=== PATIENT | male | born 1955 | race Caucasian/White ===

== ENCOUNTER 2023-01-17 08:01 | Outpatient (OUT) | payer OTHER, SELFPAY ==
--- NOTE | 2023-01-17 08:17 | CT_ITS ---
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 Axial, Coronal, and Sagittal images. Dose reduction techniques were achieved by using automated exposure control and/or adjustment of mA and/or kV according to patient size and/or use of iterative reconstruction technique. FINDINGS: LUNGS: No visible pulmonary disease. PLEURA: No mass, effusion, or pneumothorax. VASCULATURE: No abnormality. SUZETTE: No mass or adenopathy. MEDIASTINUM: No mass or adenopathy. CARDIAC: No enlargement, pericardial thickening, or significant calcification. AORTA: Mild dilation of ascending aorta, 4.2 cm. CHEST WALL: No mass or axillary adenopathy. BONES: No bone lesion or fracture. LIMITED ABDOMEN: No suspicious findings Limited images of the upper abdomen. OTHER: Negative. CT/CT chest wo/w con IMPRESSION: 1. Stable mild aneurysmal dilation of the ascending thoracic aorta, 4.2 cm in diameter. Electronically authenticated by: CARLOS RICE Date: 01/18/2023 06:43
[2023-01-17 08:18] LABS: Estimated GFR (African America >60 (>=60); Estimated GFR (Non-African Ame >60 (>=60)
== END 2023-01-17 08:02 | disposition home or self-care (01) ==
LOC: LAB 08:01
PROVIDERS: PCP Family Medicine; Visit Provider Family Medicine
DX: I71.21 Aneurysm of the ascending aorta, without rupture (principal)
CPT/HCPCS: 36415; 71270; 82565; Q9967

== ENCOUNTER 2023-04-13 09:13 | Outpatient (OUT) | payer OTHER, SELFPAY ==
[2023-04-13 09:44] LABS: Eosinophils Absolute Auto 0.2 10^3/uL (0.0-0.7); Eosinophils Percent Auto 4.6 % (0.9-7.0); Hematocrit 34.2 % (42.0-54.0); Hemoglobin 11.2 g/dL (14.0-18.0); Immature Granulocytes Abs Auto 0.01 10^3/uL (0.00-0.03); Immature Granulocytes Pct Auto 0.2 % (0.0-0.5); Lymphocytes Absolute Auto 1.3 10^3/uL (1.2-3.8); Lymphocytes Percent Auto 26.5 % (20.5-60.0); Mean Corpuscular HGB Conc 32.7 g/dL (29.9-35.2); Mean Corpuscular Hemoglobin 33.1 pg (25.9-34.0); Mean Corpuscular Volume 101.2 fL (80.0-94.0); Mean Platelet Volume 9.2 fL (9.5-13.5); Monocytes Absolute Auto 0.7 10^3/uL (0.3-0.8); Monocytes Percent Auto 14.9 % (1.7-12.0); Neutrophils Absolute Auto 2.7 10^3/uL (1.4-6.5); Neutrophils Percent Auto 53.8 % (43.0-75.0); Platelet Count 239 10^3/uL (150-450); Red Blood Count 3.38 10^6/uL (4.70-6.10)
[2023-04-13 09:53] LABS: Estimated Average Glucose 108 mg/dL; Glycohemoglobin A1C 5.4 % (4.5-6.2)
[2023-04-13 10:19] LABS: Alanine Aminotransferase 23 U/L (16-63); Albumin Globulin Ratio 0.9; Albumin Level 3.7 g/dL (3.4-5.0); Alkaline Phosphatase 67 U/L (46-116); Anion Gap 14.1; Aspartate Amino Transferase 24 U/L (15-37); BUN Creatinine Ratio 22.7; Bilirubin Total 0.5 mg/dL (0.2-1.0); Calcium 9.1 mg/dL (8.5-10.1); Carbon Dioxide 25.9 mmol/L (21.0-32.0); Chloride 105 mmol/L (98-107); Chol HDL Ratio 2.6; Cholesterol 103 mg/dL (<=200); Estimated GFR (African America >60 (>=60); Estimated GFR (Non-African Ame >60 (>=60); Globulin 4.2 g/dL; Glucose 102 mg/dL (74-106); HDL Cholesterol 40 mg/dL (40-60); Sodium 141 mmol/L (136-145); Total Protein 7.9 g/dL (6.4-8.2); Triglycerides 145 mg/dL (<=150)
[2023-04-13 10:55] LABS: Prostate Specific Antigen Scrn <0.13 ng/mL (<=4.00)
== END 2023-04-13 09:14 | disposition home or self-care (01) ==
LOC: LAB 09:16
PROVIDERS: PCP Family Medicine; Visit Provider Family Medicine
DX: E78.5 Hyperlipidemia, unspecified (principal); I10 Essential (primary) hypertension; I48.0 Paroxysmal atrial fibrillation; R73.09 Other abnormal glucose; Z12.5 Encounter for screening for malignant neoplasm of prostate
CPT/HCPCS: 36415; 80053; 80061; 83036; 85025; G0103

== ENCOUNTER 2023-06-13 12:06 | Outpatient (OUT) | payer OTHER, SELFPAY ==
--- OUTSIDE RECORDS SUMMARY | 2023-06-13 12:13 | XMS_ITS | CCD ---
Author Name Unknown Address [address] [place] [address] Organization [facility] Care Team Providers Care Peer Support Specialist Name Role Phone MAMTA STEPHENSON Attending Unavailable SELF, REFERRED Primary Care Unavailable SELF, REFERRED Referring Unavailable MAMTA STEPHENSON Admitting Unavailable Lv Heard Primary Care Physician [phone] Patricio BEAUCHAMP Attending Unavailable NILLPatricio Attending Unavailable Patricio BEAUCHAMP Attending Unavailable vL Heard MD Primary Care Provider [phone] CAMILLE ., DR CURRY Admitting Unavailable NILL ., DR CURRY Attending Unavailable NILL ., DR CURRY Consulting Unavailable HOY ., DR AWAN Primary Care Unavailable STELLA BEYER Consulting Unava ilable TERI, DR JT Harper Admitting Unavailable ENGELER, DR JT Harper Attending Unavailable ENGELER, DR JT Harper Consulting Unavailable HOY ., DR AWAN Primary Care Unavailable HOY ., DR AWAN Attending Unavailable HOY ., DR AWAN Primary Care Unavailable HOY ., DR AWAN Consulting Unavailable HOY ., DR AWAN Admitting Unavailable HOY ., DR AWAN Attending Unavailable HOY ., DR AWAN Consulting Unavailable HOY ., DR AWAN Primary Care Unavailable HOY ., DR AWAN Admitting Unavailable ZIEBER, DR KIRK Goins Consulting Unavailable HOY ., DR AWAN Attending Unavailable HOY ., DR AWAN Consulting Unavailable HOY ., DR AWAN Primary Care Unavailable HOY ., DR AWAN Admitting Unavailable ZIEBER, DR KIRK Goins Consulting Unavailable HOY ., DR AWAN Attending Unavailable HOY ., DR AWAN Consulting Unavailable HOY ., DR AWAN Primary Care Unavailable HOY ., DR AWAN Admitting Unavailable ZIEBER, DR KIRK Goins Consulting Unavailable ELVIN KEEN Consulting Unavailable BERENICE MELGAR Consulting Unavailable KARLY BASS Consulting Unavailable SUGAR, DR ISIDRO Alcantara Admitting Unavailedward WOOTEN, DR ISIDRO Alcantara Attending Unavailedward WOOTEN, DR ISIDRO Alcantara Consulting Unavailedward HEARD ., DR AWAN Primary Care Unavailable PATRICIO ANTON Consulting Unavailable NILL ., DR CURRY Admitting Unavailable NILL ., DR CURRY Attending Unavailable NILL ., DR CURRY Consulting Unavailable HOY ., DR AWAN Primary Care Unavailable MAMTA STPEHENSON Attending Unavailable ALEXI WEEKS Attending Unavailable ALEXI WEEKS Attending Unavailable CUBA PONCE Attending Unavailable LV HEARD Primary Care Unavailable Quinton GONZÁLES Referring Unavailable Quinton GONZÁLES Attending Unavailable Allergies Allergy Classification Reported Allergen(s) Allergy Type Date of Onset Reaction(s) Facility (1 source) No Known Medication Allergies; Translations: [No Known Medication Allergies] Propensity to adverse reactions (disorder) [facility] Repository Medications Current Medications Medication Drug Class(es) Dates Sig (Normalized) Sig (Original) apixaban 5 mg oral tablet (1 source) Factor Xa Inhibitor Start: 03-04-2022 take 1 tablet by mouth twice daily Eliquis 5 mg oral tablet 5 mg = 1 tab(s), Oral, BID, Refills(s) 0 Start Date: 03/04/22 Status: Ordered aspirin 81 mg delayed release oral tablet (1 source) Platelet Aggregation Inhibitor, Nonsteroidal Anti-inflammatory Drug Start: 03-08-2022 take 1 tablet by mouth once daily aspirin 81 mg Oral EC Tab 81 mg = 1 tab(s), Oral, Daily, Refills(s) 0 Start Date: 03/08/22 Status: Ordered diclofenac sodium 75 mg delayed release oral tablet (1 source) Nonsteroidal Anti-inflammatory Drug Start: 03-04-2022 take 1 tablet by mouth twice daily diclofenac sodium 75 mg Oral EC Tab 75 mg = 1 tab(s), Oral, BID, Refills(s) 0 Start Date: 03/04/22 Status: Ordered ferrous sulfate 325 mg delayed release oral tablet (1 source) Start: 03-04-2022 take 1 tablet by mouth twice daily ferrous sulfate 325 mg oral enteric coated tablet 325 mg = 1 tab(s), Oral, BID, Refills(s) 0 Start Date: 03/04/22 Status: Ordered lansoprazole 30 mg delayed release oral capsule (1 source) Proton Pump Inhibitor Start: 03-29-2022 take 1 capsule by mouth once daily lansoprazole 30 mg Cap-DR 30 mg = 1 cap(s), Oral, Daily, Refills(s) 0 Start Date: 03/29/22 Status: Ordered lisinopril 10 mg oral tablet (1 source) Angiotensin Converting Enzyme Inhibitor Start: 03-04-2022 take 1 tablet by mouth once daily lisinopril 10 mg Tab 10 mg = 1 tab(s), Oral, Daily, Refills(s) 0 Start Date: 03/04/22 Status: Ordered metoprolol tartrate 75 mg oral tablet (1 source) beta-Adrenergic Mandeep Start: 03-04-2022 take 1 tablet by mouth twice daily metoprolol tartrate 75 mg oral tablet 75 mg = 1 tab(s), Oral, BID, Refills(s) 0 Start Date: 03/04/22 Status: Ordered Multivitamins and Minerals (1 source) Start: 10-02-2018 Multivitamins and Minerals See Instructions, Refill(s) 0 Start Date: 10/02/18 Status: Ordered rosuvastatin calcium 20 mg oral tablet (1 source) HMG-CoA Reductase Inhibitor Start: 03-08-2022 take 1 tablet by mouth once daily rosuvastatin 20 mg Tab 20 mg = 1 tab(s), Oral, Daily, Refills(s) 0 Start Date: 03/08/22 Status: Ordered sucralfate 1000 mg oral tablet (1 source) Aluminum Complex Start: 03-08-2022 take 1 tablet by mouth four times daily Carafate 1 gram Tab 1 gm = 1 tab(s), Oral, QID, # 120 tab(s), Refills(s) 3, Pharmacy: [facility] #[id number], 177.8, cm, 03/08/22 15:41:00 EST, Height/Length Dosing, 91, kg, 03/08/22 15:41:00 EST, Weight Dosing Start Date: 03/08/22 Status: Ordered Completed/Discontinued Medications Medication Drug Class(es) Dates Sig (Normalized) Sig (Original) Acetaminophen (3 sources) ACETAMINOPHEN (TYLENOL EXTRA STRENGTH ORAL) Take by mouth. 0 Active Comment on above: Take by mouth. celecoxib 200 mg oral capsule (3 sources) Nonsteroidal Anti-inflammatory Drug Start: 06-19-2018 celecoxib (CELEBREX) 200 mg capsule twice daily. 0 06/19/2018 Active Comment on above: twice daily. ibuprofen 200 mg oral tablet (3 sources) Nonsteroidal Anti-inflammatory Drug take 1 tablet by mouth every six hours as needed ibuprofen (MOTRIN) 200 mg tablet Take 200 mg by mouth every 6 hours as needed. 0 Active Comment on above: Take 200 mg by mouth every 6 hours as needed. Multivitamin capsule (3 sources) take 1 capsule by mouth once daily Multivitamin capsule Take 1 capsule by mouth once daily. 0 Active Comment on above: Take 1 capsule by mo uth once daily. tamsulosin hydrochloride 0.4 mg oral capsule (3 sources) alpha-Adrenergic Mandeep Start: 06-27-2018 take 1 capsule by mouth once daily at bedtime tamsulosin ER (FLOMAX) 0.4 mg cap Take 1 capsule by mouth daily at bedtime. 30 capsule 11 06/27/2018 Active Comment on above: Take 1 capsule by mo [facility] daily at bedtime. TURMERIC, BULK, MISC (3 sources) TURMERIC, BULK, MISC valACYclovir 1000 mg oral tablet (3 sources) Herpesvirus Nucleoside Analog DNA Polymerase Inhibitor, Herpes Simplex Virus Nucleoside Analog DNA Polymerase Inhibitor, Herpes Zoster Virus Nucleoside Analog DNA Polymerase Inhibitor Start: 06-09-2018 valACYclovir (VALTREX) 1 gram tab Problems Active Problems Problem Classification Problem Date Documented Da te Episodic/Chronic Abdominal hernia (1 source) Umbilical hernia 03-04-2022 Episodic Aortic; peripheral; and visceral artery aneurysms (5 sources) Aneurysm of thoracic aorta; Translations: [Thoracic aortic aneurysm, without rupture] Onset: 12-30-2021 03-04-2022 Chronic Cancer of prostate (3 sources) Malignant tumor of prostate; Translations: [Malignant neoplasm of prostate] Onset: 06-23-2022 Chronic Cardiac dysrhythmias (4 sources) Atrial fibrillation; Translations: [Unspecified atrial fibrillation] Onset: 12-24-2021 03-04-2022 Chronic Cataract (1 source) Cataract 03-04-2022 Chronic Coronary atherosclerosis and other heart disease (3 sources) Coronary arteriosclerosis; Translations: [Coronary Artery Disease] Onset: 12-24-2021 03-04-2022 Chronic Deficiency and other anemia (1 source) Anemia 10-01-2018 Episodic Deficiency and other anemia (1 source) Iron deficiency anemia 03-08-2022 Episodic Disorders of lipid metabolism (2 sources) Hyperlipidemia; Translations: [Hyperlipidemia] Onset: 05-17-2022 Chronic Diverticulosis and diverticulitis (3 sources) Diverticula of intestine; Translations: [Diverticulosis of intestine, part unspecified, without perforation or abscess without bleeding] Onset: 03-24-2022 Chronic Essential hypertension (5 sources) Hypertensive disorder; Translations: [Essential (primary) hypertension] Onset: 10-29-2021 03-04-2022 Chronic Gastritis and duodenitis (1 source) Unspecified chronic gastritis without bleeding; Translations: [UNS CHRONIC GASTRITIS W/O BLEEDING] Onset: 03-24-2022 Chronic Gastritis and duodenitis (3 sources) Gastritis; Translations: [Other gastritis without bleeding] Onset: 03-29-2022 Episodic Gout and other crystal arthropathies (1 source) Gout 03-04-2022 Chronic Hyperplasia of prostate (1 source) Benign prostatic hyperplasia 03-04-2022 Chronic Immunizations and screening for infectious disease (1 source) Raised Helicobacter pylori antibody 03-08-2022 Episodic Nutritional deficiencies (1 source) Vitamin D deficiency, unspecified; Translations: [VITAMIN D DEFICIENCY UNSPECIFIED] Onset: 03-02-2022 Chronic Osteoarthritis (1 source) Unspecified osteoarthritis, unspecified site; Translations: [UNSPECIFIED OSTEOARTHRITIS UNS SITE] Onset: 10-29-2021 Chronic Other aftercare (1 source) Long-term current use of anticoagulant 03-04-2022 Episodic Other disorders of stomach and duodenum (1 source) Indigestion 03-08-2022 Episodic Other gastrointestinal disorders (1 source) Alteration in bowel elimination 03-08-2022 Episodic Other gastrointestinal disorders (1 source) Occult blood in stools 03-04-2022 Episodic Other nervous system disorders (1 source) H/O: retinal detachment 03-04-2022 Episodic Other nervous system disorders (1 source) Paresthesia 03-04-2022 Episodic Other nutritional; endocrine; and metabolic disorders (1 source) Overweight in adulthood with body mass index of 25 or more but less than 30 03-08-2022 Episodic Other nutritional; endocrine; and metabolic disorders (1 source) Unintentional weight loss 03-04-2022 Episodic Residual codes; unclassified (1 source) Sleep apnea 03-04-2022 Chronic Residual codes; unclassified (1 source) Sleep apnea, unspecified; Translations: [SLEEP APNEA UNSPECIFIED] Onset: 10-29-2021 Chronic Retinal detachments; defects; vascular occlusion; and retinopathy (1 source) Epiretinal membrane 03-04-2022 Chronic Substance-related disorders (2 sources) Smoker; Translations: [Nicotine dependence, cigarettes, uncomplicated] Onset: 03-24-2022 03-04-2022 Chronic Unclassified (1 source) CONTACT W/AND (SUSP) EXPOS COVID-19; Translations: [CONTACT W/AND (SUSP) EXPOS COVID-19] Onset: 03-19-2022 Unclassified (1 source) PERSONAL HISTORY OF COVID-19; Translations: [PERSONAL HISTORY OF COVID-19] Onset: 10-29-2021 Unclassified (2 sources) NSVT Onset: 12-24-2021 Past or Other Problems Problem Classification Problem Date Documented Da te Episodic/Chronic Cancer of prostate (9 sources) History of malignant neoplasm of prostate; Translations: [Personal history of malignant neoplasm of prostate] Onset: 10-31-2013 10-02-2018 Episodic Deficiency and other anemia (4 sources) Iron deficiency anemia, unspecified; Translations: [IRON DEFICIENCY ANEMIA UNSPECIFIED] Onset: 03-18-2022 Episodic Deficiency and other anemia (1 source) Anemia, unspecified; Translations: [ANEMIA UNSPECIFIED] Onset: 03-02-2022 Episodic Diabetes mellitus without complication (1 source) Other abnormal glucose; Translations: [OTHER ABNORMAL GLUCOSE] Onset: 03-02-2022 Episodic Fluid and electrolyte disorders (1 source) Volume depletion, unspecified; Translations: [VOLUME DEPLETION UNSPECIFIED] Onset: 03-13-2022 Episodic Gastrointestinal hemorrhage (4 sources) Melena; Translations: [Rectal hemorrhage] Onset: 03-24-2022 03-08-2022 Episodic Malaise and fatigue (4 sources) Other fatigue; Translations: [OTHER FATIGUE] Onset: 03-09-2022 Episodic Nonspecific chest pain (5 sources) Chest pain, unspecified; Translations: [Other chest pain] Onset: 10-29-2021 Episodic Other aftercare (3 sources) Radiotherapy follow-up; Translations: [Encounter for follow-up examination after completed treatment for conditions other than malignant neoplasm] Onset: 06-10-2014 06-10-2014 Episodic Other aftercare (1 source) snf (current) use of anticoagulants; Translations: [DETENTION CURRNT USE ANTICOAGULANTS] Onset: 03-24-2022 Episodic Other aftercare (1 source) snf (current) use of aspirin; Translations: [DETENTION CURRENT USE OF ASPIRIN] Onset: 03-24-2022 Episodic Other aftercare (1 source) Other valuation consultant (current) drug therapy; Translations: [OTH RESERVATIONS MANAGER CURRENT DRUG THERAPY] Onset: 03-24-2022 Episodic Other circulatory disease (1 source) Hypotension, unspecified; Translations: [HYPOTENSION UNSPECIFIED] Onset: 03-13-2022 Episodic Other diseases of kidney and ureters (1 source) Disorder of kidney and ureter, unspecified; Translations: [DISORDER KIDNEY AND URETER UNS] Onset: 03-13-2022 Episodic Other gastrointestinal disorders (1 source) Diarrhea, unspecified; Translations: [DIARRHEA UNSPECIFIED] Onset: 03-24-2022 Episodic Other lower respiratory disease (1 source) Acute respiratory distress; Translations: [ACUTE RESPIRATORY DISTRESS] Onset: 10-29-2021 Episodic Other lower respiratory disease (1 source) Personal history of pneumonia (recurrent); Translations: [PERSONAL HX OF PNEUMONIA RECURRENT] Onset: 10-29-2021 Episodic Other nutritional; endocrine; and metabolic disorders (4 sources) Abnormal weight loss; Translations: [ABNORMAL WEIGHT LOSS] Onset: 02-25-2022 Episodic Other screening for suspected conditions (not mental disorders or infectious disease) (2 sources) Encounter for screening for malignant neoplasm of rectum; Translations: [Other specified abnormal findings of blood chemistry] Onset: 10-29-2021 Episodic Screening and history of mental health and substance abuse codes (1 source) Personal history of nicotine dependence; Translations: [PERSONAL HISTORY OF NICOTINE DEPEND] Onset: 03-13-2022 Episodic Results Test Name Value Interpretation Reference Range Facility [facility] 05-23-2023 [place] Telephone (RADTSA) PABLO BECKMAN ([id number]) 1955 M Date Time Provider Department 05/23/23 Quinton GONZÁLES During your visit today, we recorded the following information about you: Josefina Anderson RN 05/23/2023 9:44 AM Signed PT called in to schedule follow up for this year. He will also need PSA. Please sign pended order and we will fax to [facility]. Josefina Anderson RN Allergies As of Date: 05/23/2023 (No Known Allergies) Date Reviewed: 06/24/2020 Reviewed by: Kamari July - Fully Assessed Reason for Visit: Future Appointment [256] Primary Visit Diagnosis:Malignant neoplasm of prostate (HCC) [C61] Order(s):PSA/PROSTSPECAG DIAG [SQPSA] Order #: [id number] FUTURE Prescriptions as of 05/23/2023 - valACYclovir (VALTREX) 1 gram tab - celecoxib (CELEBREX) 200 mg capsule twice daily. - tamsulosin ER (FLOMAX) 0.4 mg cap Take 1 capsule by mouth daily at bedtime. - Multivitamin capsule Take 1 capsule by mouth once daily. - ibuprofen (MOTRIN) 200 mg tablet Take 200 mg by mouth every 6 hours as needed. - ACETAMINOPHEN (TYLENOL EXTRA STRENGTH ORAL) Take by mouth. - TURMERIC, BULK, MISC Problem List As Of Date 05/23/2023 Noted Resolved Personal history of prostate cancer [Z85.46] 10/31/2013 Radiotherapy follow-up [Z09] 06/10/2014 Encounter Status:Closed by Quinton GONZÁLES on 05/23/23 Normal [facility] Office Visiton 08-09-2022 Follow-up visit [id number] Hanna Beckman 1955 M Date Provider Department Center 08/09/2022 [id number] PONCE TIN [place] Family History Problem Relation Age of Onset Stroke Mother Family Status - Relation Status Age at Mother Level of Service:[address] [place] OFFICE/OUTPATIENT NEW HIGH MDM 60-74 MINUTES Normal [facility] Jason 06-22-2022 CNPN Telephone (RADTSA) PABLO BECKMAN ([id number]) 1955 M Date Time Provider Department 06/22/22 Quinton GONZÁLES During your visit today, we recorded the following information about you: Hermilo Logan LPN 06/22/2022 12:37 PM Signed Pablo called wondering if his follow up appointment can be switched to a phone visit tomorrow. Please advise. DEVIKA Hall RN 06/23/2022 9:37 AM Signed Per mark Galvez to switch to phone visit. Patient was notified. PSS- please change in [facility]. TOOTIE Nance 06/23/2022 10:04 AM Signed Appointment has been changed in [facility]. Kwaku Rasmussen Allergies As of Date: 06/22/2022 (No Known Allergies) Date Reviewed: 06/24/2020 Reviewed by: Felecia Benites - Fully Assessed Reason for Visit: Patient Question [8807] Prescriptions as of 06/23/2022 - valACYclovir (VALTREX) 1 gram tab - celecoxib (CELEBREX) 200 mg capsule twice daily. - tamsulosin ER (FLOMAX) 0.4 mg cap Take 1 capsule by mouth daily at bedtime. - Multivitamin capsule Take 1 capsule by mouth once daily. - ibuprofen (MOTRIN) 200 mg tablet Take 200 mg by mouth every 6 hours as needed. - ACETAMINOPHEN (TYLENOL EXTRA STRENGTH ORAL) Take by mouth. - SANTINO FRAIRE, MISC Problem List As Of Date 06/22/2022 Noted Resolved Personal history of prostate cancer [Z85.46] 10/31/2013 Radiotherapy follow-up [Z09] 06/10/2014 Encounter Status:Closed by HERMILO LOGAN on 06/23/22 [facility] 36on 05-20-2022 36 Approving, but needs appt for additional refills. Normal [facility] Office Visiton 05-17-2022 Follow-up visit [id number] Hanna Beckman 1955 M Date Provider Department Center 05/17/2022 MAMTA EGAN TIN [facility] Family History Problem Relation Age of Onset Stroke Mother Family Status - Relation Status Age at Mother Level of Service:[address]20 [place] OFFICE/OUTPATIENT ESTABLISHED LOW MDM 20-29 MIN Reason for Visit and Comments: Hyperlipidemia [182] Hypertension [498092] Atrial Fibrillation [80] Coronary Artery Disease [187] Normal [facility] Pathology Noteon 04-07-2022 Pathology Note [id number]#[id number]:127 Normal [facility] General Surgery Office/Clini c Noteon 03-29-2022 General Surgery Office/Clinic Note Chief Complaint post operative follow up HPI Staff 11 day post operative follow up post colonoscopy and EGD with antral biopsy. Diarrhea has improved. History of Present Illness s/p EGD and colonoscopy due to iron deficiency anemia; also loose stools; started on H pylori treatment prior to scope, now completed; EGD with mild antral gastritis, bx negative for H pylori organisms; colonoscopy with diverticulosis; patient reports diarrhea improved. Assessment/Plan 1. Diverticulosis (K57.90: Diverticulosis of intestine, part unspecified, without perforation or abscess without bleeding) high fiber diet and daily fiber supplement 2. Bile reflux gastritis (K29.60: Other gastritis without bleeding) continue carafate; no H pylori organisms on biopsy; positive antibody may have been from a previous infection, or resolved with treatment; no source for anemia identified; f/u with Dr Heard. call with problems/questions. Follow-up No qualifying data available Problem List/Past Medical History Ongoing Anemia Atrial fibrillation Bile reflux gastritis BMI 28.0-28.9,adult BPH (benign prostatic hyperplasia) Cataract Change in bowel habits Coronary arteriosclerosis Diverticulosis Dyspepsia Gout H/O prostate cancer Helicobacter pylori ab+ Helicobacter pylori gastritis History of retinal detachment HTN (hypertension) Hypertensive disorder Iron deficiency anemia snf current use of anticoagulant Macular puckering Melena Occult blood positive stool Paresthesia RB (rectal bleeding) Rectal bleeding Sleep apnea Smoker Thoracic aortic aneurysm Umbilical hernia Unintentional weight loss Historical No qualifying data Procedure/Surgical History Colonoscopy (03/18/2022), EGD - Esophagogastroduodenoscopy (03/18/2022), Colonoscopy (10/17/2018), Colonoscopy (09/11/2009), Amputation of finger, Arthroscopy of shoulder, ORIF - Open reduction and internal fixation of fracture, Seed implantation into prostate, Umbilical herniorrhaphy using surgical sutures. Medications aspirin 81 mg Oral EC Tab, 81 mg= 1 tab(s), Oral, Daily Carafate 1 gram Tab, 1 gm= 1 tab(s), Oral, QID, 3 refills diclofenac sodium 75 mg Oral EC Tab, 75 mg= 1 tab(s), Oral, BID Eliquis 5 mg oral tablet, 5 mg= 1 tab(s), Oral, BID ferrous sulfate 325 mg oral enteric coated tablet, 325 mg= 1 tab(s), Oral, BID lansoprazole 30 mg Cap-DR, 30 mg= 1 cap(s), Oral, Daily lisinopril 10 mg Tab, 10 mg= 1 tab(s), Oral, Daily metoprolol tartrate 75 mg oral tablet, 75 mg= 1 tab(s), Oral, BID Multivitamins and Minerals, See Instructions rosuvastatin 20 mg Tab, 20 mg= 1 tab(s), Oral, Daily Allergies No Known Allergies No Known Medication Allergies Social History Alcohol - Denies Alcohol Use, 10/02/2018 Substance Abuse - Denies Substance Abuse, 10/02/2018 Tobacco Former smoker, quit more than 30 days ago Tobacco Use:. Never Smokeless Tobacco Use:. Cigarettes, 1 per day. Started age 18.0 Years. Stopped age 31 Years., 03/08/2022 Family History Alzheimer's disease: Mother. Parkinson disease: Father. Primary malignant neoplasm of female breast: Sister. Stroke: Mother. Immunizations Vaccine Date Status Comments influenza virus vaccine, inactivated - Not Given Patient Refuses Normal [facility] Comment on above: Result Comment: Elec tronically Signed By: CAMILLE CRAMER, Patricio Denise\Date and Time Signed: 03/29/22 16:23 EST Outside Colonoscopyon 2021 Outside Colonoscopy [id number]:127 Normal [facility] Reminderson 03-21-2022 Reminders - From: Rosey Cleary LPN To: GSN - Clinical; Sent: 03/21/2022 10:19:27 EST Show up: 02/17/2032 07:00:00 EST Subject: colonoscopy recall Due Date/Time: 03/18/2032 07:00:00 EST Reminder/Recall Patient due for screening colonoscopy 03/18/2032. Normal [facility] Lab Reportson 03-15-2022 Lab Reports [id number]:127 Normal [facility] Covid-19 PCR (CVDTB)on SARS-CoV-2 (COVID-19) RNA ISIDRO+probe Ql (Unsp spec) Not detected Normal NOT DETECTED [facility] Comment on above: Result Comment: This test is not yet approved or cleared by the [place] FDA. When there are no FDA-approved or cleared tests available, and other criteria are met, FDA can make tests available under an emergency access mechanism called an Emergency Use Authorization (EUA). The EUA for this test is supported by the Social Media Campaign Manager of Health and Human Service's (HHS's) declaration that circumstances exist to justify the emergency use of in vitro diagnostics for the detection and/or diagnosis of the virus that causes COVID-19. This EUA will remain in effect (meaning this test can be used) for the duration of the COVID-19 declaration justifying emergency of IVDs, unless it is terminated or revoked by FDA (after which the test may no longer be used). When diagnostic testing is negative, the possibility of a false negative should be considered in the context of a patient's recent exposures and the presence of clinical signs and symptoms consistent with SARS-CoV-2. Performed By: #### T SH, T7, LIPA, EMILY, CMP #### [facility] [address] [place] [address] Dr. Emely Adrian Consent for Procedure/Surger yon 03-10-2022 Consent for Procedure/Surgery [id number]:127 Normal [facility] Facesheeton 03-10-2022 Facesheet [id number]#[id number]:127 Normal [facility] CBC AUTO DIFFon 03-09-2022 BASO # 0.0 103/ul Normal 0.0-0.1 [facility] Comment on above: Performed By: #### T SH, T7, LIPA, EMILY, CMP #### [facility] [address] [place] [address] Dr. Emely Adrian Basophils/100 WBC (Bld) 0.1 % Critically low 0.2-2.0 [facility] Comment on above: Performed By: #### T SH, T7, LIPA, EMILY, CMP #### [facility] [address] [place] [address] Dr. Emely Adrian EO # 0.2 103/ul Normal 0.0-0.7 [facility] Comment on above: Performed By: #### T SH, T7, LIPA, EMILY, CMP #### [facility] [address] [place] [address] Dr. Emely Adrian Eosinophils/100 WBC (Bld) 3.2 % Normal 0.9-7.0 [facility] Comment on above: Performed By: #### T SH, T7, LIPA, EMILY, CMP #### [facility] [address] [place] [address] Dr. Emely Adrian Erythrocyte distribution width (RBC) [Ratio] 15.8 % Critically high 11.0-15.0 [facility] Comment on above: Performed By: #### T SH, T7, LIPA, EMILY, CMP #### [facility] [address] [place] [address] Dr. Emely Adrian Hematocrit (Bld) [Volume fraction] 26.6 % Critically low 42.0-54.0 [facility] Comment on above: Performed By: #### T SH, T7, LIPA, EMILY, CMP #### [facility] [address] [place] [address] Dr. Emely Adrian Hemoglobin (Bld) [Mass/Vol] 9.0 g/dL Critically low 14.0-18.0 [facility] Comment on above: Performed By: #### T SH, T7, LIPA, EMILY, CMP #### [facility] [address] [place] [address] Dr. Emely Adrian IG # 0.05 10e3/ul Critically high 0.00-0.03 [facility] Comment on above: Performed By: #### T SH, T7, LIPA, EMILY, CMP #### [facility] [address] [place] [address] Dr. Emely Adrian IG % 0.7 % Critically high 0.0-0.5 [facility] Comment on above: Performed By: #### T SH, T7, LIPA, EMILY, CMP #### [facility] [address] [place] [address] Dr. Emely Adrian LYMPH # 1.8 103/ul Normal 1.2-3.8 [facility] Comment on above: Performed By: #### T SH, T7, LIPA, EMILY, CMP #### [facility] [address] [place] [address] Dr. Emely Adrian Lymphocytes/100 WBC (Bld) 24.2 % Normal 20.5-60.0 [facility] Comment on above: Performed By: #### T SH, T7, LIPA, EMILY, CMP #### [facility] [address] [place] [address] Dr. Emely Adrian MANUAL DIFF REQ NO Normal [facility] Comment on above: Performed By: #### T SH, T7, LIPA, EMILY, CMP #### [facility] [address] [place] [address] Dr. Emely Adrian MCH (RBC) [Entitic mass] 32.7 pg Normal 25.9-34.0 [facility] Comment on above: Performed By: #### T SH, T7, LIPA, EMILY, CMP #### [facility] [address] [place] [address] Dr. Emely Adrian MCHC (RBC) [Mass/Vol] 33.8 g/dL Normal 29.9-35.2 [facility] Comment on above: Performed By: #### T SH, T7, LIPA, EMILY, CMP #### [facility] [address] [place] [address] Dr. Emely Adrian MCV (RBC) [Entitic vol] 96.7 fL Critically high 80.0-94.0 [facility] Comment on above: Performed By: #### T SH, T7, LIPA, EMILY, CMP #### [facility] [address] [place] [address] Dr. Emely Adrian MONO # 1.3 103/ul Critically high 0.3-0.8 [facility] Comment on above: Performed By: #### T SH, T7, LIPA, EMILY, CMP #### [facility] [address] [place] [address] Dr. Emely Adrian Monocytes/100 WBC (Bld) 18.0 % Critically high 1.7-12.0 [facility] Comment on above: Performed By: #### T SH, T7, LIPA, EMILY, CMP #### [facility] [address] [place] [address] Dr. Emely Adrian NEUT # 4.0 103/ul Normal 1.4-6.5 [facility] Comment on above: Performed By: #### T SH, T7, LIPA, EMILY, CMP #### [facility] [address] [place] [address] Dr. Emely Adrian Neutrophils/100 WBC (Bld) 53.8 % Normal 43.0-75.0 [facility] Comment on above: Performed By: #### T SH, T7, LIPA, EMILY, CMP #### [facility] [address] [place] [address] Dr. Emely Adrian Platelet mean volume (Bld) [Entitic vol] 8.7 fL Critically low 9.5-13.5 [facility] Comment on above: Performed By: #### T SH, T7, LIPA, EMILY, CMP #### [facility] [address] [place] [address] Dr. Emely Adrian PLT 320 103/ul Normal 150-450 [facility] Comment on above: Performed By: #### T SH, T7, LIPA, EMILY, CMP #### [facility] [address] [place] [address] Dr. Emely Adrian RBC 2.75 106/ul Critically low 4.70-6.10 [facility] Comment on above: Performed By: #### T BASIM, T7, LIPA, EMILY, CMP #### [facility] [address] [place] [address] Dr. Emely Adrian WBC 7.5 103/ul Normal 4.0-11.0 [facility] Comment on above: Performed By: #### T BASIM, T7, LIPA, EMILY, CMP #### [facility] [address] [place] [address] Dr. Emely Adrian LACTATE/LACTIC ACIDon 2021 Lactate [Moles/Vol] 0.7 mmol/L Normal 0.4-1.9 [facility] Comment on above: Performed By: #### T BAISM, T7, LIPA, EMILY, CMP #### [facility] [address] [place] [address] Dr. Emely Adrian LIPASEon 03-09-2022 Lipase [Catalytic activity/Vol] 386.0 U/L Normal 73.0-393.0 [facility] Comment on above: Performed By: #### C BC #### [facility] [address] [place] [address] Dr. Emely Adrian PROF 14(COMP METB)on 022 Albumin [Mass/Vol] 2.9 g/dL Critically low 3.4-5.0 [facility] Comment on above: Performed By: #### C MP #### [facility] [address] [place] [address] Dr. Emely Adrian Albumin/Globulin [Mass ratio] 0.7 {ratio} Normal [facility] Comment on above: Performed By: #### C MP #### [facility] [address] [place] [address] Dr. Emely Adrian ALP [Catalytic activity/Vol] 43 U/L Critically low 46-116 [facility] Comment on above: Performed By: #### C MP #### [facility] [address] [place] [address] Dr. Emely Adrian ALT [Catalytic activity/Vol] 23 U/L Normal 16-63 [facility] Comment on above: Performed By: #### C MP #### [facility] [address] [address] [address] Emely Adrian Anion gap [Moles/Vol] 13.4 mmol/L Normal [facility] Comment on above: Performed By: #### C MP #### [facility] [address] [address] [address] Emely Adrian AST [Catalytic activity/Vol] 21 U/L Normal 15-37 [facility] Comment on above: Performed By: #### C MP #### [facility] [address] [address] [address] Emely Adrian Bilirubin [Mass/Vol] 0.4 mg/dL Normal 0.2-1.0 [facility] Comment on above: Performed By: #### C MP #### [facility] [address] [address] [address] Emely Adrian Calcium [Mass/Vol] 8.3 mg/dL Critically low 8.5-10.1 [facility] Comment on above: Performed By: #### C MP #### [facility] [address] [address] [address] Emely Adrian Chloride [Moles/Vol] 104 mmol/L Normal 98-107 [facility] Comment on above: Performed By: #### C MP #### [facility] [address] [address] [address] Emely Adrian CO2 [Moles/Vol] 22.9 mmol/L Normal 21.0-32.0 [facility] Comment on above: Performed By: #### C MP #### [facility] [address] [address] [address] Emely Adrian Creatinine [Mass/Vol] 1.80 mg/dL Critically high 0.70-1.30 [facility] Comment on above: Performed By: #### C MP #### [facility] [address] [address] [address] Emely Adrian EGFR-AF SPANISH 46 mL/min/1.73m2 Critically low >=60 [facility] Comment on above: Performed By: #### C MP #### [facility] [address] [address] [address] Emely Adrian EGFR-NON AF SPANISH 38 mL/min/1.73m2 Critically low >=60 [facility] Comment on above: Performed By: #### C MP #### [facility] [address] [address] [address] Emely Adrian Globulin (S) [Mass/Vol] 4.3 g/dL Normal [facility] Comment on above: Performed By: #### C MP #### [facility] [address] [address] [address] Emely Adrian Glucose [Mass/Vol] 105 mg/dL Normal 74-106 [facility] Comment on above: Performed By: #### C MP #### [facility] [address] [address] [address] Emely Adrian Potassium [Moles/Vol] 4.3 mmol/L Normal 3.5-5.1 [facility] Comment on above: Performed By: #### C MP #### [facility] [address] [address] [address] Emely Adrian Protein [Mass/Vol] 7.2 g/dL Normal 6.4-8.2 [facility] Comment on above: Performed By: #### C MP #### [facility] [address] [address] [address] Emely Adrian Sodium [Moles/Vol] 136 mmol/L Normal 136-145 [facility] Comment on above: Performed By: #### C MP #### [facility] [address] [address] [address] Emely Adrian Urea nitrogen [Mass/Vol] 35.0 mg/dL Critically high 7.0-18.0 [facility] Comment on above: Performed By: #### C MP #### [facility] [address] [address] [address] Emely Adrian Urea nitrogen/Creatini ne [Mass ratio] 19.4 mg/mg Normal [facility] Comment on above: Performed By: #### C MP #### [facility] [address] [place] [address] Dr. Emely Adrian PROTIMEon 03-09-2022 INR Coag (PPP) [Relative time] 1.12 {INR} Normal [facility] Comment on above: Performed By: #### P TT, PT #### [facility] [address] [place] [address] Dr. Emely Adrian INR GUIDELINES SEE BELOW Normal [facility] Comment on above: Result Comment: DUSTIN RED INR: 2.0 - 3.0 CONDITIONS NOT LISTED BELOW 2.5 - 3.5 FOR PROSTHETIC HEART VALVE REPLACEMENT 2.5 - 3.5 RECURRENT THROMBOSIS Performed By: #### P TT, PT #### [facility] [address] [place] [address] Dr. Emely Adrian PT Coag (PPP) [Time] 12.0 s Critically high 9.0-11.6 [facility] Comment on above: Performed By: #### P TT, PT #### [facility] [address] [place] [address] Dr. Emely Adrian PTTon 03-09-2022 aPTT Coag (Bld) [Time] 32.1 s Normal 22.3-36.2 [facility] Comment on above: Performed By: #### P TT, PT #### [facility] [address] [place] [address] Dr. Emely Adrian TROPONIN, HIGH SENSITIVITYon 03-09-2022 HSTROP 12.0 pg/mL Normal 4.0-76.1 [facility] Comment on above: Result Comment: CUT- OFF POINTS HAVE BEEN ESTABLISHED BASED ON THE FOURTH UNIVERSAL DEFINITIONS OF MYOCARDIAL INFARCTION. THE UPPER REFERENCE LIMIT (URL) OF TROPONIN, DEFINED THE 99TH PERCENTILE OF cTnI DISTRIBUTION IN A REFERENCE POPULATION, HAS BEEN CONFIRMED THE DECISION THRESHOLD FOR [place] DIAGNOSIS. Performed By: #### T SH, T7, LIPA, EMILY, CMP #### [facility] [address] [place] [address] Dr. Emely Adrian TYPE AND SCREENon 03-09-2022 TYPE AND SCREEN Negative Normal [facility] Comment on above: Performed By: #### T SH, T7, EMILY WIGGINS, CMP #### [facility] [address] [address] [address] Emely Adrian XR CHEST 1 Von 03-09-2022 XR CHEST 1 V EXAM: Portable chest REASON FOR EXAM: Shortness of breath. TECHNIQUE: A portable frontal view of the chest was obtained. COMPARISON: 10/27/2021. FINDINGS: The lungs are well-inflated and clear. The heart and mediastinum are normal. There is no mass or pathologic adenopathy. Osseous structures are normal. IMPRESSION: No acute cardiopulmonary process. Electronically authenticated by: PATRICIO ANTON Date: 2022-03-09 10:[address] [facility] Physician Referralon 022 Physician Referral [id number] Normal [facility] CA 19-9on 02-26-2022 CA 19-9 4 U/mL Normal 0-35 [facility] Comment on above: Result Comment: [employer] Electrochemiluminescence Immunoassay (ECLIA) . Values obtained with different assay methods or kits cannot be used interchangeably. Results cannot be interpreted as absolute evidence of the presence or absence of malignant disease. Performed By: #### T Royer STALLWORTH, EMILY WIGGINS, CMP #### [facility] [address] [address] [address] Emely Adrian CEAon 02-26-2022 CEA 1.9 ng/mL Normal 0.0-4.7 [facility] Comment on above: Result Comment: Nons mokers <3.9 Smokers <5.6 . [employer] Electrochemiluminescence Immunoassay (ECLIA) . Values obtained with different assay methods or kits cannot be used interchangeably. Results cannot be interpreted as absolute evidence of the presence or absence of malignant disease. Performed By: #### T BASIM, T7, FELICIANO, EMILY, CMP #### [facility] [address] [address] [address] Emely Adrian H PYLORI ANTIBODY IGGon 02-08 H. PYLORI IGG ABS 1.19 Index Value Critically high 0.00-0. 79 [facility] Comment on above: Result Comment: Nega tive <0.80 Equivocal 0.80 - 0.89 Positive >0.89 Performed By: #### C BC #### [facility] [address] [place] [address] Dr. Emely Adrian AMYLASEon 02-25-2022 Amylase [Catalytic activity/Vol] 118 U/L Critically high 25-115 [facility] Comment on above: Performed By: #### T SH, T7, LIPA, EMILY, CMP #### [facility] [address] [place] [address] Dr. Emely Adrian CBC AUTO DIFFon 02-25-2022 BASO # 0.0 103/ul Normal 0.0-0.1 [facility] Comment on above: Performed By: #### T SH, T7, LIPA, EMILY, CMP #### [facility] [address] [place] [address] Dr. Emely Adrian Basophils/100 WBC (Bld) 0.2 % Normal 0.2-2.0 [facility] Comment on above: Performed By: #### T SH, T7, LIPA, EMILY, CMP #### [facility] [address] [place] [address] Dr. Emely Adrian EO # 0.1 103/ul Normal 0.0-0.7 [facility] Comment on above: Performed By: #### T SH, T7, LIPA, EMILY, CMP #### [facility] [address] [place] [address] Dr. Emely Adrian Eosinophils/100 WBC (Bld) 2.8 % Normal 0.9-7.0 [facility] Comment on above: Performed By: #### T SH, T7, LIPA, EMILY, CMP #### [facility] [address] [place] [address] Dr. Emely Adrian Erythrocyte distribution width (RBC) [Ratio] 15.6 % Critically high 11.0-15.0 [facility] Comment on above: Performed By: #### T SH, T7, LIPA, EMILY, CMP #### [facility] [address] [place] [address] Dr. Emely Adrian Hematocrit (Bld) [Volume fraction] 28.9 % Critically low 42.0-54.0 [facility] Comment on above: Performed By: #### T SH, T7, LIPA, EMILY, CMP #### [facility] [address] [place] [address] Dr. Emely Adrian Hemoglobin (Bld) [Mass/Vol] 9.5 g/dL Critically low 14.0-18.0 [facility] Comment on above: Performed By: #### T SH, T7, LIPA, EMILY, CMP #### [facility] [address] [place] [address] Dr. Emely Adrian IG # 0.04 10e3/ul Critically high 0.00-0.03 [facility] Comment on above: Performed By: #### T SH, T7, LIPA, EMILY, CMP #### [facility] [address] [place] [address] Dr. Emely Adrian IG % 0.9 % Critically high 0.0-0.5 [facility] Comment on above: Performed By: #### T SH, T7, LIPA, EMILY, CMP #### [facility] [address] [place] [address] Dr. Emely Adrian LYMPH # 1.3 103/ul Normal 1.2-3.8 [facility] Comment on above: Performed By: #### T SH, T7, LIPA, EMILY, CMP #### [facility] [address] [place] [address] Dr. Emely Adrian Lymphocytes/100 WBC (Bld) 29.6 % Normal 20.5-60.0 [facility] Comment on above: Performed By: #### T SH, T7, LIPA, EMILY, CMP #### [facility] [address] [place] [address] Dr. Emely Adrian MANUAL DIFF REQ NO Normal [facility] Comment on above: Performed By: #### T SH, T7, LIPA, EMILY, CMP #### [facility] [address] [place] [address] Dr. Emely Adrian MCH (RBC) [Entitic mass] 32.1 pg Normal 25.9-34.0 [facility] Comment on above: Performed By: #### T SH, T7, LIPA, EMILY, CMP #### [facility] [address] [place] [address] Dr. Emely Adrian MCHC (RBC) [Mass/Vol] 32.9 g/dL Normal 29.9-35.2 [facility] Comment on above: Performed By: #### T SH, T7, LIPA, EMILY, CMP #### [facility] [address] [place] [address] Dr. Emely Adrian MCV (RBC) [Entitic vol] 97.6 fL Critically high 80.0-94.0 [facility] Comment on above: Performed By: #### T SH, T7, LIPA, EMILY, CMP #### [facility] [address] [place] [address] Dr. Emely Adrian MONO # 0.8 103/ul Normal 0.3-0.8 [facility] Comment on above: Performed By: #### T SH, T7, LIPA, EMILY, CMP #### [facility] [address] [place] [address] Dr. Emely Adrian Monocytes/100 WBC (Bld) 17.2 % Critically high 1.7-12.0 [facility] Comment on above: Performed By: #### T SH, T7, LIPA, EMILY, CMP #### [facility] [address] [place] [address] Dr. Emely Adrian NEUT # 2.2 103/ul Normal 1.4-6.5 [facility] Comment on above: Performed By: #### T SH, T7, LIPA, EMILY, CMP #### [facility] [address] [place] [address] Dr. Emely Adrian Neutrophils/100 WBC (Bld) 49.3 % Normal 43.0-75.0 [facility] Comment on above: Performed By: #### T SH, T7, LIPA, EMILY, CMP #### [facility] [address] [place] [address] Dr. Emely Adrian Platelet mean volume (Bld) [Entitic vol] 9.2 fL Critically low 9.5-13.5 [facility] Comment on above: Performed By: #### T SH, T7, LIPA, EMILY, CMP #### [facility] [address] [place] [address] Dr. Emely Adrian PLT 259 103/ul Normal 150-450 [facility] Comment on above: Performed By: #### T SH, T7, LIPA, EMILY, CMP #### [facility] [address] [place] [address] Dr. Emely Adrian RBC 2.96 106/ul Critically low 4.70-6.10 [facility] Comment on above: Performed By: #### T SH, T7, LIPA, EMILY, CMP #### [facility] [address] [place] [address] Dr. Emely Adrian WBC 4.4 103/ul Normal 4.0-11.0 [facility] Comment on above: Performed By: #### T SH, T7, LIPA, EMILY, CMP #### [facility] [address] [place] [address] Dr. Emely Adrian FREE THYROXINE INDEX T7on FTI 1.80 Normal 1.30-4.50 [facility] Comment on above: Performed By: #### T SH, T7, LIPA, EMILY, CMP #### [facility] [address] [place] [address] Dr. Emely Adrian T3U 34.0 % Normal 33.0-40.0 [facility] Comment on above: Performed By: #### T SH, T7, LIPA, EMILY, CMP #### [facility] [address] [place] [address] Dr. Emely Adrian T4 [Mass/Vol] 5.30 ug/dL Normal 4.50-12.10 [facility] Comment on above: Performed By: #### T SH, T7, LIPA, EMILY, CMP #### [facility] [address] [place] [address] Dr. Emely Adrian GI PANEL (PCR)on 02-25-2022 Adenovirus F 40/41 Not detected Normal NOT DETECTED [facility] Comment on above: Performed By: #### G IPANEL #### [facility] [address] [place] [address] Dr. Emely Adrian Astrovirus Not detected Normal NOT DETECTED [facility] Comment on above: Performed By: #### G IPANEL #### [facility] [address] [address] [address] Emely Adrian C. Diff toxin A/B Not detected Normal NOT DETECTED [facility] Comment on above: Performed By: #### G IPANEL #### [facility] [address] [place] [address] Dr. Emely Adrian Campylobacter Not detected Normal NOT DETECTED [facility] Comment on above: Performed By: #### G IPANEL #### [facility] [address] [place] [address] Dr. Emley Adrian Cryptosporidium Not detected Normal NOT DETECTED [facility] Comment on above: Performed By: #### G IPANEL #### [facility] [address] [place] [address] Dr. Emely Adrian Cyclos. Cayetanensis Not detected Normal NOT DETECTED [facility] Comment on above: Performed By: #### G IPANEL #### [facility] [address] [place] [address] Dr. Emely Adrian E. Coli O157 Not Applicable Normal Not Applicable [facility] Comment on above: Performed By: #### G IPANEL #### [facility] [address] [place] [address] Dr. Emely Adrian E. histolytica Not detected Normal NOT DETECTED [facility] Comment on above: Performed By: #### G IPANEL #### [facility] [address] [place] [address] Dr. Emely Adrian EAEC Not detected Normal NOT DETECTED [facility] Comment on above: Performed By: #### G IPANEL #### [facility] [address] [place] [address] Dr. Emely Adrian EIEC Not detected Normal NOT DETECTED [facility] Comment on above: Performed By: #### G IPANEL #### [facility] [address] [place] [address] Dr. Emely Adrian EPEC Not detected Normal NOT DETECTED [facility] Comment on above: Performed By: #### G IPANEL #### [facility] [address] [address] [address] Emely Adrian ETEC Not detected Normal NOT DETECTED [facility] Comment on above: Performed By: #### G IPANEL #### [facility] [address] [address] [address] Emely Olsen Lamblia Not detected Normal NOT DETECTED [facility] Comment on above: Performed By: #### G IPANEL #### [facility] [address] [address] [address] Emely STODDARD CONTROLS PASSED Normal [facility] Comment on above: Performed By: #### G IPANEL #### [facility] [address] [place] [address] Dr. Emely HERNANDEZ HEADER GI PANEL BACTERIA Normal [facility] Comment on above: Performed By: #### G IPANEL #### [facility] [address] [place] [address] Dr. Emely KAHN ECOLI GI PANEL DIARRHEAGEN IC E.COLI / SHIGELLA Normal [facility] Comment on above: Performed By: #### G IPANEL #### [facility] [address] [place] [address] Dr. Emely KAHN INFO SEE BELOW Normal [facility] Comment on above: Result Comment: EAEC - Enteroaggregative E. Coli EPEC- Enteropathogenic E. Coli ETEC- Enterotoxigenic E. Coli lt/st STEC- Shigella-like toxin-producing E. Coli stx1/stx2 EIEC- Shigella/Enteroinvasive E. Coli Performed By: #### G IPANEL #### [facility] [address] [place] [address] Dr. Emely KAHN PARASITES GI PANEL PARASITES Normal [facility] Comment on above: Performed By: #### G IPANEL #### [facility] [address] [place] [address] Dr. Emely KAHN VIRUS GI PANEL VIRUSES Normal [facility] Comment on above: Performed By: #### G IPANEL #### [facility] [address] [place] [address] Dr. Emely Adrian Norovirus GI/GII Not detected Normal NOT DETECTED [facility] Comment on above: Performed By: #### G IPANEL #### [facility] [address] [address] [address] Emely Adrian P. Shigelloides Not detected Normal NOT DETECTED [facility] [facility] Comment on above: Performed By: #### G IPANEL #### [facility] [address] [place] [address] Dr. Emely Adrian Rotavirus A Not detected Normal NOT DETECTED [facility] Comment on above: Performed By: #### G IPANEL #### [facility] [address] [place] [address] Dr. Emely Adrian Salmonella Not detected Normal NOT DETECTED [facility] Comment on above: Performed By: #### G IPANEL #### [facility] [address] [place] [address] Dr. Emely Adrian Sapovirus Not detected Normal NOT DETECTED [facility] Comment on above: Performed By: #### G IPANEL #### [facility] [address] [place] [address] Dr. Emely Adrian STEC Not detected Normal NOT DETECTED [facility] Comment on above: Performed By: #### G IPANEL #### [facility] [address] [place] [address] Dr. Emely Adrian Vibrio Not detected Normal NOT DETECTED [facility] Comment on above: Performed By: #### G IPANEL #### [facility] [address] [place] [address] Dr. Emely Adrian Vibrio Cholera Not detected Normal NOT DETECTED [facility] Comment on above: Performed By: #### G IPANEL #### [facility] [address] [place] [address] Dr. Emely Adrian Y. Enterocolitica Not detected Normal NOT DETECTED [facility] Comment on above: Performed By: #### G IPANEL #### [facility] [address] [place] [address] Dr. Emely Adiran GLYCOHEMOGLOBIN A1Con 2021 ADA RECOMMENDATION SEE BELOW Normal [facility] Comment on above: Result Comment: ADA RECOMMENDED LIMIT 4.0 - 6.0 ADA THERAPEUTIC TARGET < 7.0 ACTION SUGGESTED > 7.0 Performed By: #### T SH, T7, LIPA, EMILY, CMP #### [facility] [address] [place] [address] Dr. Emely Adrian Glucose [Mass/Vol] 120 mg/dL Normal [facility] Comment on above: Performed By: #### T SH, T7, LIPA, EMILY, CMP #### [facility] [address] [place] [address] Dr. Emely Adrian HbA1c (Bld) [Mass fraction] 5.8 % Normal 4.5-6.2 [facility] Comment on above: Performed By: #### T SH, T7, LIPA, EMILY, CMP #### [facility] [address] [place] [address] Dr. Emely Adrian IRONon 02-25-2022 Iron [Mass/Vol] 55.0 ug/dL Critically low 65.0-175.0 [facility] Comment on above: Performed By: #### C BC #### [facility] [address] [place] [address] Dr. Emely Adrian LIPASEon 02-25-2022 Lipase [Catalytic activity/Vol] 671.0 U/L Critically high 73.0-393.0 [facility] Comment on above: Performed By: #### T SH, T7, LIPA, EMILY, CMP #### [facility] [address] [place] [address] Dr. Emely Adrian OCC BLD IMMUNO SCREENon 02-08 OCCULT BLOOD Positive Abnormal NEGATIVE [facility] Comment on above: Performed By: #### T SH, T7, LIPA, EMILY, CMP #### [facility] [address] [place] [address] Dr. Emely Adrian PROF 14(COMP METB)on 11-18-2 022 Albumin [Mass/Vol] 3.0 g/dL Critically low 3.4-5.0 [facility] Comment on above: Performed By: #### T SH, T7, LIPA, EMILY, CMP #### [facility] [address] [place] [address] Dr. Emely Adrian Albumin/Globulin [Mass ratio] 0.8 {ratio} Normal [facility] Comment on above: Performed By: #### T SH, T7, LIPA, EMILY, CMP #### [facility] [address] [place] [address] Dr. Emely Adrian ALP [Catalytic activity/Vol] 58 U/L Normal 46-116 [facility] Comment on above: Performed By: #### T SH, T7, LIPA, EMILY, CMP #### [facility] [address] [place] [address] Dr. Emely Adrian ALT [Catalytic activity/Vol] 25 U/L Normal 16-63 [facility] Comment on above: Performed By: #### T SH, T7, LIPA, EMILY, CMP #### [facility] [address] [place] [address] Dr. Emely Adrian Anion gap [Moles/Vol] 12.1 mmol/L Normal [facility] Comment on above: Performed By: #### T SH, T7, LIPA, EMILY, CMP #### [facility] [address] [place] [address] Dr. Emely Adrian AST [Catalytic activity/Vol] 20 U/L Normal 15-37 [facility] Comment on above: Performed By: #### T SH, T7, LIPA, EMILY, CMP #### [facility] [address] [place] [address] Dr. Emely Adrian Bilirubin [Mass/Vol] 0.2 mg/dL Normal 0.2-1.0 [facility] Comment on above: Performed By: #### T SH, T7, LIPA, EMILY, CMP #### [facility] [address] [place] [address] Dr. Emely Adrian Calcium [Mass/Vol] 8.3 mg/dL Critically low 8.5-10.1 [facility] Comment on above: Performed By: #### T SH, T7, LIPA, EMILY, CMP #### [facility] [address] [address] [address] Emely Adrian Chloride [Moles/Vol] 108 mmol/L Critically high 98-107 [facility] Comment on above: Performed By: #### T SH, T7, LIPA, EMILY, CMP #### [facility] [address] [place] [address] Dr. Emely Adrian CO2 [Moles/Vol] 24.5 mmol/L Normal 21.0-32.0 [facility] Comment on above: Performed By: #### T SH, T7, LIPA, EMILY, CMP #### [facility] [address] [place] [address] Dr. Emely Adrian Creatinine [Mass/Vol] 0.97 mg/dL Normal 0.70-1.30 [facility] Comment on above: Performed By: #### T SH, T7, LIPA, EMILY, CMP #### [facility] [address] [place] [address] Dr. Emely Adrian EGFR-AF SPANISH >60 Normal >=60 [facility] Comment on above: Performed By: #### T SH, T7, LIPA, EMILY, CMP #### [facility] [address] [place] [address] Dr. Emely Adrian EGFR-NON AF SPANISH >60 Normal >=60 [facility] Comment on above: Performed By: #### T SH, T7, LIPA, EMILY, CMP #### [facility] [address] [place] [address] Dr. Emely Adrian Globulin (S) [Mass/Vol] 3.8 g/dL Normal [facility] Comment on above: Performed By: #### T SH, T7, LIPA, EMILY, CMP #### [facility] [address] [place] [address] Dr. Emely Adrian Glucose [Mass/Vol] 97 mg/dL Normal 74-106 [facility] Comment on above: Performed By: #### T SH, T7, LIPA, EMILY, CMP #### [facility] [address] [place] [address] Dr. Emely Adrian Potassium [Moles/Vol] 4.6 mmol/L Normal 3.5-5.1 [facility] Comment on above: Performed By: #### T SH, T7, LIPA, EMILY, CMP #### [facility] [address] [place] [address] Dr. Emely Adrian Protein [Mass/Vol] 6.8 g/dL Normal 6.4-8.2 [facility] Comment on above: Performed By: #### T SH, T7, LIPA, EMILY, CMP #### [facility] [address] [place] [address] Dr. Emely Adrian Sodium [Moles/Vol] 140 mmol/L Normal 136-145 [facility] Comment on above: Performed By: #### T SH, T7, LIPA, EMILY, CMP #### [facility] [address] [place] [address] Dr. Emely Adrian Urea nitrogen [Mass/Vol] 20.0 mg/dL Critically high 7.0-18.0 [facility] Comment on above: Performed By: #### T SH, T7, LIPA, EMILY, CMP #### [facility] [address] [place] [address] Dr. Emely Adrian Urea nitrogen/Creatini ne [Mass ratio] 20.6 mg/mg Normal [facility] Comment on above: Performed By: #### T SH, T7, LIPA, EMILY, CMP #### [facility] [address] [place] [address] Dr. Emely Adrian TSHon 02-25-2022 TSH 1.247 uIU/mL Normal 0.358-3.740 [facility] Comment on above: Performed By: #### T SH, T7, LIPA, EMILY, CMP #### [facility] [address] [place] [address] Dr. Emely Adrian VITAMIN D 25 OHon 02-25-2022 VIT D 25-OH 23.9 ng/mL Normal [facility] Comment on above: Performed By: #### C BC #### [facility] [address] [address] [address] Emely Adrian VIT D RANGES SEE BELOW Normal [facility] Comment on above: Result Comment: <20 ng/mL Vit D deficient 20 - <30 ng/mL Vit D insufficient 30 - 100 ng/mL Vit D sufficient >100 ng/mL Potential Toxicity Performed By: #### C BC #### [facility] [address] [address] [address] Emely Adrian Follow-Upon 02-23-2022 Follow-Up [id number] Hanna Beckman 1955 M Date Provider Department Center 02/23/2022 3848-ALEXI WEEKS [facility] Family History Problem Relation Age of Onset Stroke Mother Family Status - Relation Status Age at Mother Level of Service:26561 [place] OFFICE/OUTPATIENT ESTABLISHED MOD MDM 30-39 MIN Normal [facility] CREATININEon 12-30-2021 Creatinine [Mass/Vol] 1.21 mg/dL Normal 0.70-1.30 [facility] Comment on above: Performed By: #### T SH, T7, LIPA, EMILY, CMP #### [facility] [address] [address] [address] Emely Adrian EGFR-AF SPANISH >60 Normal >=60 [facility] Comment on above: Performed By: #### T SH, T7, LIPA, EMILY, CMP #### [facility] [address] [address] [address] Emely Adrian EGFR-NON AF SPANISH =60 Normal >=60 [facility] Comment on above: Performed By: #### T SH, T7, LIPA, EMILY, CMP #### [facility] [address] [address] CHEST WO W CONon 12-31-19 CT CHEST WO W CON EXAMINATION: CT CHES T WO W CON HISTORY: Aneurysm of thoracic aorta , follow-up COMPARISON: CTA chest 10/27/2021 TECHNIQUE: Axial, Coronal, and Sagittal images were obtained without and/or with IV contrast as indicated by examination type. Dose reduction techniques were achieved by using automated exposure control and/or adjustment of mA and/or kV according to patient size and/or use of iterative reconstruction technique. FINDINGS: LUNGS: No visible pulmonary disease. PLEURA: No mass, effusion, or pneumothorax. VASCULATURE: No abnormality. SUZETTE: No mass or adenopathy. MEDIASTINUM: No mass or adenopathy. CARDIAC: No enlargement, pericardial thickening, or significant calcification. AORTA: Slight dilation of ascending aorta, 4.2 cm. No significant atherosclerotic disease. CHEST WALL: No mass or axillary adenopathy. BONES: No bone lesion or fracture. LIMITED ABDOMEN: No suspicious findings. Limited images of the upper abdomen. OTHER: Negative. IMPRESSION: 1. Mild aneurysmal dilation of the ascending aorta, 4.2 cm. No increase in size since prior study. Electronically authenticated by: KIRK CRUZ Date: 2021-12-30 08:[address] [facility] Office Visiton 12-24-2021 Follow-up visit [id number] Hanna Beckman 1955 M Date Provider Department Center 12/24/2021 ALEXI COURTNEY [facility] Family History Problem Relation Age of Onset Stroke Mother Family Status - Relation Status Age at Mother Level of Service:20090 [place] OFFICE/OUTPATIENT ESTABLISHED MOD MDM 30-39 MIN Reason for Visit and Comments: Atrial Fibrillation [80] Hypertension [948717] Coronary Artery Disease [187] NSVT [Other] - Patient here for follow up event monitor per Nai Vega CNP, Normal [facility] Abstracton 12-11-2021 Abstract [id number] Hanna Beckman 1955 M Date Provider Department Center 12/11/2021 HEBER SIDDIQUI [facility] Family History Problem Relation Age of Onset Stroke Mother Family Status - Relation Status Age at Mother Normal [facility] NM STRESS/REST MULTIon 11-09 NM STRESS/REST MULTI Patient: PABLO BECKMANMarlene Exam Date: 11/09/2021 : 1955 Gender:M Ordering : DR LV HEARD . Admission #: [id number] Family : Order #: [id number] CLICK HERE TO VIEW EXAM RADIOLOGY REPORT PROCEDURE: RADIONUCLIDE IMAGING STRESS/REST MULTI COMPARISON: NM STRESS/REST MULTI, 01/14/2021. INDICATIONS: Chest pain TECHNIQUE: Exam Description: Stress/Rest one day protocol gated SPECT Rest Imagin.5 mCi Tc-99m Cardiolite IV on 11/09/2021 Stress Imaging 32.1 mCi Tc-99m Cardiolite IV on 11/09/2021 Exercise Protocol: Jaxon Heart Rate (bpm): Rest: 63 Max: 131 PMHR: 84 Blood Pressure: Rest: 146/90 Max: 228/104 Exercise Time: Minutes: 4 Seconds: 13 Stage Reached: Stage: 2 Mets 6.7 Symptoms: Rest and peak stress ECG findings were abnormal and the exercise portion of the study was Non-diagnostic per attending physician Dr. Edward due to EKG changes, non-sustained ventricular tachycardia. For more details please see separate cardiac stress test report. FINDINGS: QUALITY OF STUDY: Excellent. PERFUSION DEFECT: LOCATION: Basal inferior. Mid-inferior. Apical inferior. SIZE: Medium (3-4 segments). SEVERITY: Mild. TYPE: Persistent. WALL MOTION: Mild hypokinesis: Global LV SIZE: Enlarged; EDV 147 mL. TID / TCD: 0.96 LVEF: Abnormal. Calculated EF 50%. SUMMARY: Myocardial perfusion imaging study has ABNORMAL findings. CONCLUSION: 1. No acute or reversible ischemia. 2. Diaphragm attenuation artifact of the inferior wall versus very mild fixed ischemia. 3. Mild global hypokinesis. 4. Left ventriculomegaly, 147 mL. 5. Low ejection fraction, 50%. Six Dictated by: Kirk Cruz M.D. on 11/09/2021 at 14:01 Approved by: Kirk Cruz M.D. on 11/09/2021 at 14:17 Normal [facility] CARDIAC PHILIP 3-6on 2 CK [Catalytic activity/Vol] 114 U/L Normal 39-308 [facility] Comment on above: Performed By: #### T SH, T7, LIPA, EMILY, CMP #### [facility] [address] [place], [place] [address] Dr. Emely Adrian CK.MB [Mass/Vol] 1.75 ng/mL Normal <=3.60 [facility] Comment on above: Performed By: #### T SH, T7, LIPA, EMILY, CMP #### [facility] [address] [address] [address] Emely Adrian HSTROP 10.8 pg/mL Normal 4.0-76.1 [facility] Comment on above: Result Comment: CUT- OFF POINTS HAVE BEEN ESTABLISHED BASED ON THE FOURTH UNIVERSAL DEFINITIONS OF MYOCARDIAL INFARCTION. THE UPPER REFERENCE LIMIT (URL) OF TROPONIN, DEFINED THE 99TH PERCENTILE OF cTnI DISTRIBUTION IN A REFERENCE POPULATION, HAS BEEN CONFIRMED THE DECISION THRESHOLD FOR KS DIAGNOSIS. Performed By: #### T SH, T7, LIPA, EMILY, CMP #### [facility] [address] [place] [address] Dr. Emely Adrian CK [Catalytic activity/Vol] 122 U/L Normal 39-308 [facility] Comment on above: Performed By: #### T SH, T7, LIPA, EMILY, CMP #### [facility] [address] [place] [address] Dr. Emely Adrian CK.MB [Mass/Vol] 2.59 ng/mL Normal <=3.60 [facility] Comment on above: Performed By: #### T SH, T7, LIPA, EMILY, CMP #### [facility] [address] [place] [address] Dr. Emely Adrian HSTROP 10.5 pg/mL Normal 4.0-76.1 [facility] Comment on above: Result Comment: CUT- OFF POINTS HAVE BEEN ESTABLISHED BASED ON THE FOURTH UNIVERSAL DEFINITIONS OF MYOCARDIAL INFARCTION. THE UPPER REFERENCE LIMIT (URL) OF TROPONIN, DEFINED THE 99TH PERCENTILE OF cTnI DISTRIBUTION IN A REFERENCE POPULATION, HAS BEEN CONFIRMED THE DECISION THRESHOLD FOR KS DIAGNOSIS. Performed By: #### T SH, T7, LIPA, EMILY, CMP #### [facility] [address] [place] [address] Dr. Emely Adrian CK [Catalytic activity/Vol] 130 U/L Normal 39-308 [facility] Comment on above: Performed By: #### C BC #### [facility] [address] [place] [address] Dr. Emely Adrian CK.MB [Mass/Vol] 2.10 ng/mL Normal <=3.60 [facility] Comment on above: Performed By: #### C BC #### [facility] [address] [place] [address] Dr. Emely Adrian HSTROP 10.2 pg/mL Normal 4.0-76.1 [facility] Comment on above: Result Comment: CUT- OFF POINTS HAVE BEEN ESTABLISHED BASED ON THE FOURTH UNIVERSAL DEFINITIONS OF MYOCARDIAL INFARCTION. THE UPPER REFERENCE LIMIT (URL) OF TROPONIN, DEFINED THE 99TH PERCENTILE OF cTnI DISTRIBUTION IN A REFERENCE POPULATION, HAS BEEN CONFIRMED THE DECISION THRESHOLD FOR KS DIAGNOSIS. Performed By: #### C BC #### [facility] [address] [place] [address] Dr. Emely Adrian CARDIAC PHILIP ADMITon 022 CK [Catalytic activity/Vol] 164 U/L Normal 39-308 [facility] Comment on above: Performed By: #### C BC #### [facility] [address] [place] [address] Dr. Emely Adrian CK.MB [Mass/Vol] 3.38 ng/mL Normal <=3.60 [facility] Comment on above: Performed By: #### C BC #### [facility] [address] [place] [address] Dr. Emely Adrian HSTROP 9.5 pg/mL Normal 4.0-76.1 [facility] Comment on above: Result Comment: CUT- OFF POINTS HAVE BEEN ESTABLISHED BASED ON THE FOURTH UNIVERSAL DEFINITIONS OF MYOCARDIAL INFARCTION. THE UPPER REFERENCE LIMIT (URL) OF TROPONIN, DEFINED THE 99TH PERCENTILE OF cTnI DISTRIBUTION IN A REFERENCE POPULATION, HAS BEEN CONFIRMED THE DECISION THRESHOLD FOR KS DIAGNOSIS. Performed By: #### C BC #### [facility] [address] [place] [address] Dr. Emely Adrian ADY 124 ng/mL Critically high 16-96 [facility] Comment on above: Performed By: #### C BC #### [facility] [address] [place] [address] Dr. Emely Adrian CBC AUTO DIFFon 10-27-2021 BASO # 0.0 103/ul Normal 0.0-0.1 [facility] Comment on above: Performed By: #### C BC #### [facility] [address] [place] [address] Dr. Emely Adrian Basophils/100 WBC (Bld) 0.1 % Critically low 0.2-2.0 [facility] Comment on above: Performed By: #### C BC #### [facility] [address] [address] [address] Emely Adrian EO # 0.3 103/ul Normal 0.0-0.7 [facility] Comment on above: Performed By: #### C BC #### [facility] [address] [address] [address] Emely Adrian Eosinophils/100 WBC (Bld) 3.2 % Normal 0.9-7.0 [facility] Comment on above: Performed By: #### C BC #### [facility] [address] [place] [address] Dr. Emely Adrian Erythrocyte distribution width (RBC) [Ratio] 13.6 % Normal 11.0-15.0 [facility] Comment on above: Performed By: #### C BC #### [facility] [address] [place] [address] Dr. Emely Adrian Hematocrit (Bld) [Volume fraction] 32.2 % Critically low 42.0-54.0 [facility] Comment on above: Performed By: #### C BC #### [facility] [address] [place] [address] Dr. Emely Adrian Hemoglobin (Bld) [Mass/Vol] 10.5 g/dL Critically low 14.0-18.0 [facility] Comment on above: Performed By: #### C BC #### [facility] [address] [place] [address] Dr. Emely Adrian IG # 0.05 10e3/ul Critically high 0.00-0.03 [facility] Comment on above: Performed By: #### C BC #### [facility] [address] [place] [address] Dr. Emely Adrian IG % 0.6 % Critically high 0.0-0.5 [facility] Comment on above: Performed By: #### C BC #### [facility] [address] [address] [address] Emely Adrian LYMPH # 1.7 103/ul Normal 1.2-3.8 [facility] Comment on above: Performed By: #### C BC #### [facility] [address] [place] [address] Dr. Emely Adrian Lymphocytes/100 WBC (Bld) 19.7 % Critically low 20.5-60.0 [facility] Comment on above: Performed By: #### C BC #### [facility] [address] [place] [address] Dr. Emely Adrian MANUAL DIFF REQ NO Normal [facility] Comment on above: Performed By: #### C BC #### [facility] [address] [place] [address] Dr. Emely Adrian MCH (RBC) [Entitic mass] 31.7 pg Normal 25.9-34.0 [facility] Comment on above: Performed By: #### C BC #### [facility] [address] [place] [address] Dr. Emely Adrian MCHC (RBC) [Mass/Vol] 32.6 g/dL Normal 29.9-35.2 [facility] Comment on above: Performed By: #### C BC #### [facility] [address] [place] [address] Dr. Emely Adrian MCV (RBC) [Entitic vol] 97.3 fL Critically high 80.0-94.0 [facility] Comment on above: Performed By: #### C BC #### [facility] [address] [place] [address] Dr. Emely Adrian MONO # 1.0 103/ul Critically high 0.3-0.8 [facility] Comment on above: Performed By: #### C BC #### [facility] [address] [place] [address] Dr. Emely Adrian Monocytes/100 WBC (Bld) 12.4 % Critically high 1.7-12.0 [facility] Comment on above: Performed By: #### C BC #### [facility] [address] [place] [address] Dr. Emely Adrian NEUT # 5.4 103/ul Normal 1.4-6.5 [facility] Comment on above: Performed By: #### C BC #### [facility] [address] [place] [address] Dr. Emely Adrian Neutrophils/100 WBC (Bld) 64.0 % Normal 43.0-75.0 [facility] Comment on above: Performed By: #### C BC #### [facility] [address] [place] [address] Dr. Emely Adrian Platelet mean volume (Bld) [Entitic vol] 9.2 fL Critically low 9.5-13.5 [facility] Comment on above: Performed By: #### C BC #### [facility] [address] [place] [address] Dr. Emely Adrian PLT 417 103/ul Normal 150-450 [facility] Comment on above: Performed By: #### C BC #### [facility] [address] [place] [address] Dr. Emely Adrian RBC 3.31 106/ul Critically low 4.70-6.10 [facility] Comment on above: Performed By: #### C BC #### [facility] [address] [place] [address] Dr. Emely Adrian WBC 8.4 103/ul Normal 4.0-11.0 [facility] Comment on above: Performed By: #### C BC #### [facility] [address] [place] [address] Dr. Emely Adrian CTA CHEST WO W CONon 10-27-2 022 CTA CHEST WO W CON EXAMINATION: CTA CHEST WO W CON HISTORY: CHEST PAIN, UNSPECIFIED , cough, shortness of breath, elevated d-dimer COMPARISON: CTA chest 02/20/2021 TECHNIQUE: Multi-planar CT images were created with IV contrast. Axial, Coronal, and Sagittal images. Dose reduction techniques were achieved by using automated exposure control and/or adjustment of mA and/or kV according to patient size and/or use of iterative reconstruction technique. 3-D reconstruction was performed on a separate workstation. FINDINGS: VASCULATURE: No pulmonary embolism or abnormal opacity. LUNGS: Mild atelectasis within dependent lung regions. No appreciable pulmonary infiltrates or suspicious findings. PLEURA: No mass, effusion, or pneumothorax. SUZETTE: No mass or adenopathy. MEDIASTINUM: No mass or adenopathy. CARDIAC: No enlargement, pericardial effusion, or pericardial thickening. AORTA: Stable dilation of ascending aorta, 4.4 cm. CHEST WALL: No mass or axillary adenopathy. BONES: No bone lesion or fracture. LIMITED ABDOMEN: No suspicious findings. Limited images of the upper abdomen. OTHER: Negative. IMPRESSION: 1. No pulmonary embolism. 2. No acute pulmonary infiltrates or suspicious findings. 3. Stable mild aneurysmal dilation of the ascending aorta, 4.4 cm. Electronically authenticated by: KIRK CRUZ Date: 2021-10-27 06:37 Normal [facility] Covid-19 PCR (CVDTB)on 10-09 SARS-CoV-2 (COVID-19) RNA ISIDRO+probe Ql (Unsp spec) Not detected Normal NOT DETECTED [facility] Comment on above: Result Comment: When diagnostic testing is negative, the possibility of a false negative should be considered in the context of a patient's recent exposures and the presence of clinical signs and symptoms consistent with SARS-CoV-2. This test is not yet approved or cleared by the [place] FDA. When there are no FDA-approved or cleared tests available, and other criteria are met, FDA can make tests available under an emergency access mechanism called an Emergency Use Authorization (EUA). The EUA for this test is supported by the [place] of Health and Human Service's declaration that circumstances exist to justify the emergency use of in vitro diagnostics for the detection and/or diagnosis of the virus that causes COVID-19. This EUA will remain in effect for the duration of the COVID-19 declaration justifying emergency of IVDs, unless it is terminated or revoked by the FDA (after which the test may no longer be used). Performed By: #### T BASIM, Royer, FELICIANO, EMILY, CMP #### [facility] [address] [place] [address] Dr. Emely Adrian D-DIMERon 10-27-2021 D-DIMER 2.19 mg/L FEU Critically high <=0.59 [facility] Comment on above: Performed By: #### T SH, T7, LIPA, EMILY, CMP #### [facility] [address] [place], [place] [address] Dr. Emely Adrian D-DIMER COMMENTS SEE BELOW Normal [facility] Comment on above: Result Comment: Incr eases in D-Dimer concentration observed with thromboembolic events can be variable due to localization, size, and age of the thrombus. Therefore, a thromboembolic event cannot be diagnosed with certainty on the basis of the reference range. D-Dimers may also be elevated for a variety of disorders including: advanced age, , coronary disease, cancer, liver disease, infection, inflammation, hematoma, DIC, trauma, post-surgery, diabetes, thrombolytic or anticoagulant therapy, stress, and generalized hospitalization. Performed By: #### T SH, T7, LIPA, EMILY, CMP #### [facility] [address] [place], [place] [address] Dr. Emely Ardian DIGOXINon 10-27-2021 DIG <0.2 Critically low 0.9-2.0 [facility] Comment on above: Performed By: #### T SH, T7, LIPA, EMILY, CMP #### [facility] [address] [place], [place] [address] Dr. Emely Adrian ECHOCARDIO M/2D COMPLETEon 0 10-27-2021 ECHOCARDIO M/2D COMPLETE Patient: PABLO BECKMAN Exam Date: 10/27/2021 : 1955 Gender:M Ordering : DR LV HEARD . Admission #: [id number] Family : Order #: [id number] CLICK HERE TO VIEW EXAM ECHOCARDIOGRAM REPORT PROCEDURE: CARDIO PULMONARY ECHOCARDIO M/2D COMP INDICATIONS: Chest pain COMPARISON: None. DESCRIPTION: COMPLETE ECHOCARDIOGRAM Real-time transthoracic echocardiography with 2D, M-mode, spectral and color flow Doppler performed. QUALITY: Technical quality was adequate. LEFT VENTRICLE: Normal chamber size. Mild concentric left ventricular hypertrophy. LV EF: Normal left ventricular ejection fraction, (>55%). DIASTOLIC: Diastolic function is indeterminate. ATRIAL SEPTUM: Visually appears intact. LEFT ATRIUM: Normal chamber size. RIGHT ATRIUM: Normal chamber size. RIGHT VENTRICLE: Normal chamber size. Normal systolic function. TRICUSPID VALVE: Normal mobility and thickness. No stenosis with mild regurgitation. Doppler studies reveal mildly (35-45) elevated right sided pressures. RVSP 45 mmHg MITRAL VALVE: Normal mobility and thickness. No evidence of mitral valve stenosis. Mild mitral annular calcification. No mitral regurgitation. AORTIC VALVE: Normal trileaflet appearance. Thickened aortic valve. Normal leaflet mobility. No evidence of aortic valve stenosis. Trivial aortic regurgitation. AORTIC ROOT: Normal diameter and appearance. Ascending aorta is normal in size. PULMONIC VALVE: Normal thickness and mobility. No stenosis. No regurgitation. PERICARDIUM: No evidence of pericardial effusion. IVC: IVC is normal in size with no collapse. CONCLUSION: Global left ventricular systolic function is normal; visually estimated ejection fraction is 55 to 60%. Mild left ventricular hypertrophy. Diastolic function is indeterminate. The right ventricle is normal in size and systolic function. Mild tricuspid regurgitation. Mildly elevated right-sided pressures. Dictated by: Magdalena Stark M.D. on 10/27/2021 at 16:58 Approved by: Magdalena Stark M.D. on 10/27/2021 at 17:01 Normal [facility] LACTATE/LACTIC ACIDon 2021 Lactate [Moles/Vol] 0.5 mmol/L Normal 0.4-1.9 [facility] Comment on above: Performed By: #### T SH, T7, LIPA, EMILY, CMP #### [facility] [address] [place] [address] Dr. Emely Adrian Lactate [Moles/Vol] 0.5 mmol/L Normal 0.4-1.9 [facility] Comment on above: Performed By: #### C BC #### [facility] [address] [place] [address] [address] Emely Adrian PROF CHEM 8 (BAS METB)on Anion gap [Moles/Vol] 15.3 mmol/L Normal [facility] Comment on above: Performed By: #### C BC #### [facility] [address] [place] [address] Dr. Emely Adrian Calcium [Mass/Vol] 9.1 mg/dL Normal 8.5-10.1 [facility] Comment on above: Performed By: #### C BC #### [facility] [address] [place], [place] [id number] Dr. Emely Adrian Chloride [Moles/Vol] 105 mmol/L Normal 98-107 [facility] Comment on above: Performed By: #### C BC #### [facility] [address] [place] [address] Dr. Emely Adrian CO2 [Moles/Vol] 26.6 mmol/L Normal 21.0-32.0 [facility] Comment on above: Performed By: #### C BC #### [facility] [address] [place] [address] Dr. Emely Adrian Creatinine [Mass/Vol] 1.29 mg/dL Normal 0.70-1.30 [facility] Comment on above: Performed By: #### C BC #### [facility] [address] [place] [address] Dr. Emely Adrian EGFR-AF SPANISH >60 Normal >=60 [facility] Comment on above: Performed By: #### C BC #### [facility] [address] [place] [address] Dr. Emely Adrian EGFR-NON AF SPANISH 56 mL/min/1.73m2 Critically low >=60 [facility] Comment on above: Performed By: #### C BC #### [facility] [address] [place] [address] Dr. Emely Adrian Glucose [Mass/Vol] 100 mg/dL Normal 74-106 [facility] Comment on above: Performed By: #### C BC #### [facility] [address] [place] [address] Dr. Emely Adrian Potassium [Moles/Vol] 3.9 mmol/L Normal 3.5-5.1 [facility] Comment on above: Performed By: #### C BC #### [facility] [address] [place] [address] Dr. Emely Adrian Sodium [Moles/Vol] 143 mmol/L Normal 136-145 [facility] Comment on above: Performed By: #### C BC #### [facility] [address] [place] [address] Dr. Emely Adrian Urea nitrogen [Mass/Vol] 28.0 mg/dL Critically high 7.0-18.0 [facility] Comment on above: Performed By: #### C BC #### [facility] [address] [place], [place] [address] Dr. Emely Adrian Urea nitrogen/Creatini ne [Mass ratio] 21.7 mg/mg Normal [facility] Comment on above: Performed By: #### C BC #### [facility] [address] [place], [place] [address] Dr. Emely Adrian XR CHEST 1 Von 10-27-2021 XR CHEST 1 V EXAM: XR CHEST 1 V 3:51 AM EDT [id number] CLINICAL STATEMENT: CHEST PAIN, UNSPECIFIED COMPARISON: 02/20/2021 TECHNIQUE: Single AP radiograph of the chest is submitted. FINDINGS: There is no acute airspace disease. The cardiac silhouette is normal. The costophrenic recesses are sharp. No pneumothorax. The bony elements are unremarkable. IMPRESSION: No acute cardiopulmonary process. FOLLOW-UP: Follow-up as clinically indicated. Electronically authenticated by: KARLY BASS Date: 2021-10-27 04:41 Normal [facility] Cardiovascular Lab Reporton 04-09-2021 Cardiovascular Lab Report [facility] Patient Name: Rk [facility] MR #: [id number] Physician: Mamta Stephenson, Department of COMPUTER TEACHER Medicine Service Date: 04/07/2021 Division of Birthdate: 1955 Cardiology Room #: Adult Cardiovascular Services [place] [address] Cardiovascular Laboratory Report DATE OF PROCEDURE; 04/07/2021 PHYSICIAN: Alexi Weeks MD FINAL IMPRESSIONS: 1. moderate coronary artery disease of OM1 and distal LAD 2. Mild Pulmonary Hypertension with Mean PA pressure of 27 and PCWP of 19 RECOMMENDATIONS: 1. Aggressive risk factor modification. 2. Optimization of medical management for non obstructive CAD 3. Gentle diuresis PROCEDURE: After risks, benefits, and alternatives were explained, written informed consent was obtained. The patient was prepped and draped in usual sterile fashion. Using 1% lidocaine solution, local infiltration anesthesia was achieved over the right internal jugular vein. Using a micropuncture kit, under ultrasound guidance, access to the right internal jugular vein was obtained. Right heart catherization and pressure measurement was completed. Next, Using 1% lidocaine solution, local infiltration anesthesia was achieved over the right radial artery. Using a micropuncture kit, access to the right radial artery was obtained. Coronary angiography was performed using the JR5 guide cathether and JL3.5 diagnositc catheters. After reviewing the images, it was elected to conclude the procedure. Overall, the patient tolerated the procedure well. There were no obvious complications. He as to be transferred to Recovery in stable condition. FINDINGS: Hemodynamics: AO 137/79 RA: 13 mmHg RV: 39/10 mm Hg meanPa: 27 mmHg PCWP: 19 mmHg CO: 6.06 CI: 2.91 Left Ventriculography: This was not performed. CORONARY ARTERIES: Left Main Coronary Artery: This arises from the left coronary cusp. It bifurcates into the left anterior descending and left circumflex coronary artery. This vessel is free of any significant stenosis. Left Anterior Descending: No significant stenosis noted in proximal or mid LAD. In distal portion of wrap around LAD, there is 60% stenosis Left Circumflex: 50% stenosis in ostial OM1. Otherwise, no significant stenosis in LCx Right coronary artery: This arises from the right coronary cusp. No significant stenosis noted. INDICATIONS: Heart Failure Electronically Signed by: Alexi Weeks MD 04/09/2021 11:33 A Mamta Stephenson CNP Date Dict: 04/09/2021/11:17 A/Alexi Weeks MD Date Trans: 04/09/2021 11:17 A/ [id number] Normal [facility] Encounters Encounter Date Encounter Type Care Provider Facility Start: 05-23-2023 Telephone encounter G Isidoro Gonzáles MD Work Phone: Radiation Oncology Comment on above: Future Appointment Start: 08-09-2022 End: 08-09-[address] [facility] Start: 06-23-2022 End: 06-23-2022 ambulatory Quinton Gonzáles MD Work Phone: Radiation Oncology Comment on above: Malignant neoplasm o f prostate (HCC) (Primary Dx) Start: 06-23-2022 End: 06-23-2022 Telemedicine consultation with patient Quinton Isidoro Gonzáles MD Work Phone: [facility] Start: 06-23-2022 End: 06-24-2022 ambulatory LV HEARD Facility:[facility] Start: 06-22-2022 Telephone encounter Quinton Isidoro Gonzáles MD Work Phone: Radiation Oncology Comment on above: Patient Question Start: 06-02-2022 End: 06-03-[address] JT GONZÁLES Facility:[facility] Start: 05-17-2022 End: 05-17-2022 ambulatory [facility] Start: 03-29-2022 End: 03-30-2022 ambulatory Patricio BEAUCHAMP Facility:[facility] Start: 03-29-2022 End: 03-29-2022 Patient encounter procedure Patricio BEAUCHAMP General [facility] [place] Start: 03-19-2022 Encounter for preprocedural laboratory examination DR PATRICIO BEAUCHAMP . [facility] Start: 03-18-2022 End: 03-19-2022 ambulatory Patricio BEAUCHAMP Facility:[id number] Start: 03-14-2022 End: 03-15-[address] PATRICIO BEAUCHAMP . Facility:[facility] Start: 03-14-2022 End: 03-15-2022 Encounter for preprocedural laboratory examination DR PATRICIO BEAUCHAMP . Facility:[facility] Start: 03-09-2022 End: 03-09-[address] ISIDRO WOOTEN Facility:[facility] Start: 03-08-2022 End: 03-09-2022 ambulatory Patricio BEAUCHAMP Facility:[facility] Start: 02-25-2022 End: 02-26-[address] LV HEARD . Facility:[facility] Start: 02-23-2022 End: 02-23-2022 ambulatory [facility] Start: 12-30-2021 End: 12-31-[address] LV HEARD . Facility: Start: 12-24-2021 End: 12-24-2021 ambulatory [facility] Start: 11-09-2021 End: 11-10-[address] LV HEARD . Facility:[facility] Start: 10-27-2021 End: 10-27-[address] LV HEARD . Facility:[facility] Start: 04-07-2021 End: 04-08-2021 ambulatory MAMTA STEPHENSON Facility:[facility] Procedures Date Procedure Procedure Detail Performing Clinician Start: 06-02-2022 End: 06-02-2022 PSA screening [facility] Provider Comment on above: Performed By: #### TSH, T7, EMILY WIGGINS C MP #### [facility] [address] [place] [address] Dr. Emely Adrian Start: 03-18-2022 Colonoscopy Patricio Toovari Start: 03-18-2022 Esophagogastroduodenoscopy Patricio Toovari Start: 10-17-2018 Colonoscopy Patricio [facility] Start: 09-11-2009 Colonoscopy Patricio NILL Amputation of finger, except thumb Patricio [employer] Arthroscopy of shoulder Meng aecandace JUANL Implantation of radi oactive seed into prostate [facility]ric[facility] [employer] Open reduction of fr acture with internal fixation Patricio [employer] Comment on above: right leg Umbilical herniorrha phy using surgical sutures Patricio Toovari Plan of Treatment Date Care Activity Detail Author Start: 06-02-2027 PROSTATE CANCER SCREENING DISCUSSION PROSTATE CANCER SCREENING DISCUSSION [facility] Start: 06-02-2027 Prostate specific antigen measurement Prostate Cancer Screening Discussion [facility] Start: 05-23-2023 End: 08-22-2023 Prostate specific Ag [Mass/volume] in Serum or Plasma PSA/PROSTSPECAG DIAG Lab Routine Malignant neoplasm of prostate (HCC) Expected: 05/23/2023, Expires: 08/22/2023 [facility] Work Phone: Comment on above: Expected: 05/23/2023 , Expires: 08/22/2023 Start: 04-10-2023 Advance Directive Discussion Advance Directive Discussion [facility] Start: 04-10-2023 Depression Assessment Depression Ass essment [facility] Start: 01-18-2023 Pneumococcal Vaccine : 65+ (2 of 2 - PPSV23 or PCV20) Pneumococcal Vaccine: 65+ (2 of 2 - PPSV23 or PCV20) [facility] Start: 12-09-2022 Covid-19 Vaccine ( season) Covid-19 Vaccine ( season) [facility] Start: 12-09-2022 Influenza vaccination Influenza Vacc ine (#1) [facility] Start: 04-10-2022 ADVANCE DIRECTIVE DISCUSSION ADVANCE DIRECTIVE DISCUSSION [facility] Start: 04-10-2022 DEPRESSION ASSESSMENT DEPRESSION ASS ESSMENT [facility] Start: 12-09-2021 Influenza vaccination INFLUENZA (#1) [facility] Start: 2021 PNEUMOCOCCAL: 65+ (1 - PCV) PNEUMOCOCCAL: 65+ (1 - PCV) [facility] Start: 09-24-2020 COVID-19 VACCINE (3 - Booster for Pfizer series) COVID-19 VACCINE (3 - Booster for Pfizer series) [facility] Start: 2016 RSV Vaccine (1 - 1-d ose 60+ series) RSV Vaccine (1 - 1-dose 60+ series) [facility] Start: 2006 SHINGRIX VACCINE (1 of 2) SHINGRIX VACCINE (1 of 2) [facility] Start: 2001 COLOGUARD (FIT-DNA) COLOGUARD (FIT-D NA) [facility] Start: 2001 Colonoscopy COLONOSCOPY [facility] Start: 2001 COLORECTAL CANCER SCREENING COLORECTAL CANCER SCREENING [facility] Start: [address] COLONOGRAPHY [facility] Start: 2001 DIABETES SCREEN DIABETES SCREEN [facility] Start: 2001 Diabetes Screening Diabetes Screenin g [facility] Start: 2001 FECAL OCCULT BLOOD FECAL OCCULT BLOO D [facility] Start: 2001 Screening for malign ant neoplasm of colon [facility] Start: 2001 SIGMOIDOSCOPY SIGMOIDOSCOPY [facility] Start: 10-21-1991 Lipid panel Lipid Screening [facility] Start: 10-21-1991 LIPID SCREEN LIPID SCREEN [facility] Start: 10-21-1975 Urine microalbumin profile [facility] Start: 1974 HEPATITIS C SCREENING HEPATITIS C [facility] Start: 1974 Hepatitis C screening Hepatitis C [facility] Start: 1974 HIV SCREENING HIV SCREENING [facility] Start: 1955 ABDOMINAL AORTIC ANEURYSM SCREENING ABDOMINAL AORTIC ANEURYSM SCREENING [facility] Start: 1955 Abdominal aortic aneurysm screening Abdominal Aortic Aneurysm Screening [facility] Immunizations Immunization Date Immunization Notes Care Provider Fa cility NEGATED: Highlighted row has not occurred!03-08-2022 influenza virus vaccine, unspecified formulation Patricio BEAUCHAMP [facility] [place] Payers Date Payer Category Payer Private Health Insurance [facility] CHOICE PLUS [id number] 2022-Present [phone] [address] [place] [address] HMO [id number] 2006 Unknown [facility] [id number] 2006-Present [phone] [place] [address] WC [id number] 1959 Unknown [id number] 1959 Unknown [id number] 1955 Unknown [id number] .2.647 1955 Unknown [id number] [id number] .2.727 1955 Unknown [id number] [id number] .2.727 1955 Unknown [id number] [id number] .2.727 1955 Unknown [id number] [id number] .2.593 1955 Unknown [id number] [id number] .2.593 1955 Unknown [id number] [id number] .2.593 1955 Unknown [id number] [id number] .2.593 1955 Unknown [id number] [id number] .2.593 1955 Unknown [id number] [id number] .2.593 1955 Unknown [id number] [id number] .2.593 1955 Unknown [id number] .2.593 Social History Date Type Detail Facility Start: 06-24-2020 End: 03-08-2022 Tobacco smoking status Ex-smoker (finding) [facility] [place] Tobacco smoking status Never [facility] Start: 06-24-2020 End: 06-23-2022 Sex Assigned At Male Eduin Emma Roman [facility] End: 06-10-1989 History of tobacco use Current smoker [facility] End: 06-10-1989 History of tobacco use Cigarette Smoker [facility] Start: 06-24-2020 End: 06-23-2022 Cigarettes smoked current (pack per day) - Reported 1.5 [facility] Start: 06-24-2020 Tobacco use and exposure Smokeless tobacco non-user [facility] Start: 06-24-2020 Alcohol intake Not Asked [facility] Start: 1955 Sex Assigned At Not on file [facility] Clinical Notes 12-24-2021 to 05-23-2023 Telephone Encounter - Josefina Anderson RN - 05/23/2023 9:43 AM ESTG Isidoro Gonzáles MD - 06/23/2022 10:11 AM EDTTelephone Encounter - Kwaku Campbelloten - 06/23/2022 10:04 AM EDT Note Date & Type Note Facility 05-23-2023 Miscellaneous Notes PT called in to schedule follow up for this year. He will also need PSA. Please sign pended order and we will fax to [facility]. Josefina Anderson RN documented in this encounter [facility] 08-09-2022 Note [facility] Consult Note Reason for visit: Afib HPI: Pablo Beckman is a 66 y.o. year old with past medical history of hypertension, hyperlipidemia, nonobstructive CAD (on cath in 03/30), atrial fibrillation, and ascending aortic aneurysm. He also has a hx of prostate CA and follows with oncology. In November 2021, patient had a treadmill Cardiolite stress test performed by his PCP due to symptoms of shortness of breath. No reversible ischemia was noted, however, patient was noted to have episodes of nonsustained VT on treadmill stress test. Echocardiogram performed at that time demonstrated a preserved ejection fraction of 55 to 60%. Patient had cardiac cath performed in March 2021 which demonstrated nonobstructive disease. Event monitor was then performed to assess PVC burden, and patient was noted to have less than 1% PVC. He was noted to have several episodes of wide-complex tachycardia, VT versus SVT with aberrancy. He underwent an EGD/colonoscopy 03/2022 for his iron deficiency anemia, positive stool guiac, and +h.pylori stool sample - these showed no active sources of bleeding. He is currently only taking Eliquis 5mg daily d/t easy bleeding when he cuts himself at work. 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 He denies any changes since last seen including no CP, dyspnea, orthopnea, PND, LE edema, dizziness/LH, syncope. Tests: EKG 10/27/21 SR 02/22/2021: a.fib, HR 117 Cath 04/09/2021: Final impressions: 1. moderate coronary artery disease of OM1 and distal LAD 2. Mild pulmonary hypertension with mean PA pressure of 27 PCWP of 19 ECHO 10/2021 1. LV systolic function is normal, estimated EF 55-60%, mild LVH 2. Diastolic function is indeterminate 3. RV is normal in size and systolic function 4. Mild tricuspid regurg 5. Mildly elevated right-sided pressures, 45mmHg 02/22/2021: EF 50%, no pericardial effusion 12/2020: EF 45-50%, +RWMA, LV mildly dilated, moderate diastolic dysfunction, LA mildly dilated, RV normal in size and function, mild TR, mild AR, mildly dilated AscAo CTA chest 12/2021: stable aneurysm measuring 4.2cm 02/20/2021: no PE, prominent LV, mild coronary atherosclerosis, ascending thoracic aneurysm measuring 4.4cm with mild atherosclerosis and no dissection NM stress test 01/15/2021: no acute or reversible ischemia, inferior wall fixed perfusion defect vs diaphragm attenuation artifact, along with hypokinesis of the inferior wall suggesting remote infarction, LV EF 43% PMH: Past Medical History: Diagnosis Date Aneurysm (CMS/HCC) ascending aorta Atrial fibrillation (CMS/HCC) Coronary artery disease Diastolic dysfunction Hyperlipidemia Hypertension Left ventricular systolic dysfunction NSVT (nonsustained ventricular tachycardia) PSH: Past Surgical History: Procedure Laterality Date CARDIAC CATHETERIZATION HAND SURGERY LEG SURGERY ROTATOR CUFF REPAIR VASECTOMY SH: Social Determinants of Health Tobacco Use: Medium Risk Smoking Tobacco Use: Former Smokeless Tobacco Use: Never Passive Exposure: Not on file Alcohol Use: Not on file Financial Resource Strain: Not on file Food Insecurity: Not on file Transportation Needs: Not on file Physical Activity: Not on file Stress: Not on file Social Connections: Not on file Intimate Partner Violence: Not on file Depression: Not on file Housing Stability: Not on file Allergies: No Known Allergies Weight: 91.6kg Visit Vitals BP 120/72 (BP Location: Left arm, Patient Position: Sitting) Pulse 50 Ht 1.727 m (5' 8 ) Wt 91.6 kg (202 lb) SpO2 99% BMI 30.71 kg/m??? Smoking Status Former BSA 2.1 m??? Meds: Current Outpatient Medications on File Prior to Visit Medication Sig Dispense Refill apixaban (Eliquis) 5 mg tablet Take 1 tablet by mouth in the morning and at bedtime. aspirin 81 mg chewable tablet Chew 1 tablet every day by oral route. diclofenac (Voltaren) 75 mg EC tablet Take 75 mg by mouth in the morning and at bedtime. Do not crush, chew, or split. ferrous sulfate 325 (65 Fe) MG tablet Take 1 tablet by mouth in the morning and at bedtime. lisinopril 10 mg tablet Take 1 tablet by mouth in the morning. metoprolol tartrate 75 mg tablet Take by mouth in the morning and at bedtime. rosuvastatin (Crestor) 20 mg tablet Take 1 tablet by mouth at bedtime. furosemide (Lasix) 20 mg tablet TAKE 1 TABLET BY MOUTH EVERY DAY 90 tablet 0 No current facility-administered medications on file prior to visit. ROS: Cardio Basic Cardiovascular Symptoms: no lightheadedness, no leg edema, no syncope, no orthopnea, no PND, no claudication, Positive for shortness of breath (with eating and drinking). Constitutional Constitutional: no fever, no night sweats, no significant weight gain, no significant weight loss, no exercise intolerance Eyes Eyes: no dry eyes, no irritation, no vision change ENMT Ears: no difficulty hearing, (more content not included)... [facility] 06-23-2022 Note HNO ID: [id number] Author: Quinton Gonzáles MD Service: ? Author Type: Physician Type: Progress Notes Filed: 06/23/2022 2:28 PM Note Text: AMBULATORY TELEPHONE VISIT Pablo Beckman has consented to this telephone encounter. Persons Present: patient Chief Complaint/Reason: Prostate cancer, s/p I-125 prostate seed implant on 10/10/13. HPI: Doing well. Denies bladder related issues or changes. Is on some new cardiac medicine including antihypertensive. He did not have a full list for review. Data Reviewed: Most recent labs PSA (no units) Date Value 11/22/2013 1.60 PSA. (no units) Date Value 06/02/2022 0.52 06/10/2020 0.05 06/13/2018 <0.13 06/09/2016 0.19 PSA. (no units) Date Value 06/10/2020 0.05 06/13/2018 <0.13 06/09/2016 0.19 12/15/2015 0.42 PSA. (no units) Date Value 06/13/2018 <0.13 06/05/2017 0.11 06/09/2016 0.19 12/15/2015 0.42 05/28/2015 0.26 12/01/2014 0.30 05/26/2014 0.37 11/22/2013 1.60 05/26/2014 0.37 11/22/2013 1.60 Assessment: Prostate cancer, s/p I-125 prostate seed implant on 10/10/13. Doing well. PSA remains low although somewhat increased from last evaluation. However he has had fluctuations in the past which is not uncommon after prostate seed implant. Recommend continued surveillance, recheck PSA in 1 year. Total Time Spent: 6 minutes Quinton Gonzáles MD [facility] 06-23-2022 History of Present illness Narrative AMBULATORY TELEPHONE VISIT Pablo Beckman has consented to this telephone encounter. Persons Present: patient Chief Complaint/Reason: Prostate cancer, s/p I-125 prostate seed implant on 10/10/13. HPI: Doing well. Denies bladder related issues or changes. Is on some new cardiac medicine including antihypertensive. He did not have a full list for review. Data Reviewed: Most recent labs PSA (no units) Date Value 11/22/2013 1.60 PSA. (no units) Date Value 06/02/2022 0.52 06/10/2020 0.05 06/13/2018 <0.13 06/09/2016 0.19 PSA. (no units) Date Value 06/10/2020 0.05 06/13/2018 <0.13 06/09/2016 0.19 12/15/2015 0.42 PSA. (no units) Date Value 06/13/2018 <0.13 06/05/2017 0.11 06/09/2016 0.19 12/15/2015 0.42 05/28/2015 0.26 12/01/2014 0.30 05/26/2014 0.37 11/22/2013 1.60 05/26/2014 0.37 11/22/2013 1.60 Assessment: Prostate cancer, s/p I-125 prostate seed implant on 10/10/13. Doing well. PSA remains low although somewhat increased from last evaluation. However he has had fluctuations in the past which is not uncommon after prostate seed implant. Recommend continued surveillance, recheck PSA in 1 year. Total Time Spent: 6 minutes Quinton Gonzáles MD documented in this encounter [facility] 06-23-2022 Miscellaneous Notes Appointment has been changed in Epic. Kwaku Rasmussen Per Dr Gonzáles, mark to switch to phone visit. Patient was notified. PSS- please change in epic. Josefina Anderson RN Pablo called wondering if his follow up appointment can be switched to a phone visit tomorrow. Please advise. Hermilo Logan LPN documented in this encounter [facility] 05-17-2022 Note Cardiovascular Medic [facility] SUBJECTIVE Chief Complaint Patient presents with Hyperlipidemia Hypertension Atrial Fibrillation Coronary Artery Disease Pablo Beckman is a 66 y.o. male here for follow-up. HPI Pablo Beckman is a 66 y.o. male with a past medical history including hypertension, hyperlipidemia, nonobstructive CAD (on cath in 03/30), atrial fibrillation, and ascending aortic aneurysm. He also has a hx of prostate CA and follows with oncology. In November 2021, patient had a treadmill Cardiolite stress test performed by his PCP due to symptoms of shortness of breath. No reversible ischemia was noted, however, patient was noted to have episodes of nonsustained VT on treadmill stress test. Echocardiogram performed at that time demonstrated a preserved ejection fraction of 55 to 60%. Patient had cardiac cath performed in March 2021 which demonstrated nonobstructive disease. Event monitor was then performed to assess PVC burden, and patient was noted to have less than 1% PVC. He was noted to have several episodes of wide-complex tachycardia, VT versus SVT with aberrancy. 05/17/2022 He is here today to discuss the Watchman device. He underwent an EGD/colonoscopy 03/2022 for his iron deficiency anemia, positive stool guiac, and +h.pylori stool sample - these showed no active sources of bleeding. He is currently only taking Eliquis 5mg daily d/t easy bleeding when he cuts himself at work. 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 He denies any changes since last seen including no CP, dyspnea, orthopnea, PND, LE edema, dizziness/LH, syncope. He notes rare palpitations, maybe one episode since we last saw him and this lasted seconds to maybe a couple minutes. Patient Active Problem List Diagnosis Aneurysm of ascending aorta Diastolic dysfunction Hypertensive disorder Left ventricular systolic dysfunction Paroxysmal atrial fibrillation (CMS/HCC) NSVT (nonsustained ventricular tachycardia) Coronary artery disease Past Medical History: Diagnosis Date Aneurysm (CMS/HCC) ascending aorta Atrial fibrillation (CMS/HCC) Coronary artery disease Diastolic dysfunction Hyperlipidemia Hypertension Left ventricular systolic dysfunction NSVT (nonsustained ventricular tachycardia) Family History Problem Relation Name Age of Onset Stroke Mother Social History Tobacco Use Smoking status: Former Types: Cigarettes Smokeless tobacco: Never Substance Use Topics Alcohol use: Yes Comment: OCCASIONAL Drug use: Never No Known Allergies Review of Systems Constitutional: Negative for chills, fever and malaise/fatigue. Cardiovascular: Positive for palpitations. Negative for chest pain, dyspnea on exertion, irregular heartbeat, leg swelling, near-syncope, orthopnea, paroxysmal nocturnal dyspnea and syncope. Hematologic/Lymphatic: Negative for bleeding problem. Bruises/bleeds easily. All other systems reviewed and are negative. OBJECTIVE Visit Vitals BP 141/80 (BP Location: Left arm, Patient Position: Sitting) Pulse 60 Ht 1.727 m (5' 8 ) Wt 91.6 kg (202 lb) SpO2 98% BMI 30.71 kg/m??? Smoking Status Former BSA 2.1 m??? Medications: Current Outpatient Medications: apixaban (Eliquis) 5 mg tablet, Take 1 tablet by mouth in the morning and at bedtime., Disp: , Rfl: aspirin 81 mg chewable tablet, Chew 1 tablet every day by oral route., Disp: , Rfl: diclofenac (Voltaren) 75 mg EC tablet, Take 75 mg by mouth in the morning and at bedtime. Do not crush, chew, or split., Disp: , Rfl: ferrous sulfate 325 (65 Fe) MG tablet, Take 1 tablet by mouth in the morning and at bedtime., Disp: , Rfl: lisinopril 10 mg tablet, Take 1 tablet by mouth in the morning., Disp: , Rfl: metoprolol tartrate 75 mg tablet, Take by mouth in the morning and at bedtime., Disp: , Rfl: rosuvastatin (Crestor) 20 mg tablet, Take 1 tablet by mouth at bedtime., Disp: , Rfl: Physical Exam Vitals reviewed. Constitutional: Appearance: Normal appearance. HENT: Head: Normocephalic and atraumatic. Right Ear: External ear normal. Left Ear: External ear normal. Eyes: Extraocular Movements: Extraocular movements intact. Pupils: Pupils are equal, round, and reactive to light. Pulmonary: Effort: Pulmonary effort is normal. Musculoskeletal: General: Normal range of motion. Cervical back: Neck supple. Skin: General: Skin is warm and dry. Neurological: General: No focal deficit present. Mental Status: He is alert and oriented to person, place, and time. Psychiatric: Mood and Affect: Mood normal. Behavior: Behavior normal. Thought Content: Thought content normal. Labs/Testing/Procedures: Chest CTA 12/2021: stable aneurysm measuring 4.2cm ECHO (10/2021) 1. LV systolic function is normal, estimated EF 55-60%, mild LVH 2. Diastolic function is indeterminate 3. RV is normal in size and systolic function 4. Mild tricu (more content not included)... [facility] 05-17-2022 Note Patient here to disc uss possible Watchman device per Dr. Weeks. He is currently taking Eliquis once daily due to easy bleeding. Has not been taking furosemide because he has not had LE edema. Feels good. Denies chest pain and SOB. Review of Systems All other systems reviewed and are negative. [facility] 03-18-2022 Note OPERATIVE NOTE OPERATION DATE: 03/18/2022 PREOPERATIVE DIAGNOSIS: Iron deficiency anemia, loose stools, positive occult blood in the stool, as well as positive H. pylori. POSTOPERATIVE DIAGNOSIS: Mild antral gastritis, sigmoid diverticulosis. PROCEDURE: EGD with antral biopsy and colonoscopy to cecum. SURGEON: Patricio Beauchamp M.D. ANESTHESIA: Monitored anesthesia care. ESTIMATED BLOOD LOSS: Less than 1 mL. INDICATION: Patient is a 56-year-old male recently found to have iron deficiency anemia, positive occult blood in the stool, as well as intermittent loose stools. Indications, risks, benefits, alternatives of proceeding with EGD and colonoscopy were explained extensively to the patient, including risks of bleeding, aspiration, esophageal/gastric/duodenal or colonic perforation or anesthetic complications. All of his questions were answered. Informed consent was obtained. PROCEDURE: Patient brought to the operating room, placed in the left lateral decubitus position. Monitored anesthesia care was provided. Bite block was placed in the patient's mouth. Scope was inserted into the oropharynx. Under direct visualization, it was advanced into the esophagus, past the cricopharyngeus, down to the stomach. The stomach was insufflated with air. The pylorus was traversed down to the descending portion of the duodenum. There was no evidence of duodenitis or ulceration. There was no scarring within the pyloric channel. Scope was pulled back into the stomach and retroflexed. There was no significant hiatal hernia. Within the antrum, there was noted to be some antral gastritis with some erythema. No ulcerations or bleeding. Several biopsies were obtained with pediatric cold biopsy forceps with good hemostasis. The GE junction was noted at 40 cm with no distal esophagitis or Gallardo's changes. The remainder of the esophagus was unremarkable. The scope was then withdrawn. Patient tolerated procedure well, was then positioned for colonoscopy. Rectal exam was performed which showed no masses or blood. Scope was inserted into the anal canal. Under direct visualization was advanced. With the aid of abdominal compression, it was advanced to the cecum where cecal markings were clearly identified. There was noted to be a good prep with some liquid stool throughout the colon that was partially irrigated clear. Upon withdrawal of the scope, mucosal surfaces were carefully examined. There were no mass lesions or polyps. No inflammatory changes or ulcerations. There was moderate sigmoid diverticulosis without inflammatory changes or scarring. The scope was retroflexed in the anal canal. There was no significant hemorrhoidal disease. Scope was then withdrawn. Patient tolerated procedure well, was sent to recovery room in good condition. CC: Lv Heard M.D. [facility] 03-08-2022 Note Chief Complaint consultation for anemia, diarrhea, positive occult stool and weight loss HPI Staff 66 year old male presents on consultation from Dr. Heard for anemia, diarrhea, positive occult stool and weight loss. GI panel- negative. Labs completed 02/25- HGB 9.5, HCT 28.9. Taking Eliquis. History of Present Illness 66 yo male with h/o htn, atrial fibrillation, on Eliquis, asa, h/o prostate cancer, s/p brachytherapy; referred for iron deficiency anemia; patient with frequent loose stools, 2-3 hours after eating; some rectal bleeding and some dark stools, on iron; reports LLQ pain after bms; no N/V; some wt loss; hb 10.5 in October, now 9.5 02/2022; on Diclofenac bid; recently found to have low iron, and positive H pylori antibody; just prescribed PPI and antibiotics today; last colonoscopy 2012 with prominent rectal veins; no previous EGD; abdominal operations significant for umbilical hernia repair; no fmhx of GI malignancy or IBD; no tobacco use. Review of Systems PHQ Score Initial Depression Screen Score: 0 ROS - Provider Constitutional: no fever, no sweats, no weight loss. Eyes: yes glasses, no blurred vision, no visual loss. ENMT: no dentures, no hoarseness, no swallowing difficulties, no hearing loss, no ear infection(s), no nose bleeds. Cardiovascular: normal blood pressure, no chest pain, regular heartbeat, no heart murmur. Respiratory: no shortness of breath, no cough, no asthma, no wheezing. Gastrointestinal: no nausea, no vomiting, no diarrhea, no constipation, yes blood in stool, yes change in bowel habits, yes abdominal pain, no hepatitis. Genitourinary: no kidney stones, no urine infection, no dysuria. Musculoskeletal: no pain, no weakness. Skin: no changing moles, no rash, no skin lumps. Neurologic: no seizures, no epilepsy, no headache. Psychiatric: no emotional or psychiatric problem. Heme/Lymph: no bleeding problems, no anemia, no blood clots, no transfusions. Allergy/Immunologic: no swollen lymph nodes/glands, no IV drug abuse. Other: Additional ROS info: Except as noted in the above Review of Systems and in the History of Present Illness, all other systems have been reviewed and are negative or noncontributory. Physical Exam Vitals & Measurements HR: 68(Peripheral) RR: 16 BP: 98/60 HT: 70 in HT: 177.8 cm WT: 91 kg WT: 200.2 lb BMI: 28.79 HEENT: normal conjunctiva, sclera clear, no scleral icterus, EOM intact, PERRLA, oral mucosa moist without lesions. Neck: trachea midline, no mass, symmetric, no thyromegaly or nodules, no adenopathy Respiratory: lungs CTA, respirations non labored. Cardiovascular: regular rate and rhythm, no murmur, no pedal edema or varicosities. Gastrointestinal: soft, non distended, no tenderness, no masses, no palpable hernias, diastasis recti no, no hepatosplenomegaly; normal bs Lymphatic: no cervical adenopathy, Musculoskeletal: normal gait, digits and nails without infection, nodes, cyanosis, clubbing. Skin: no rashes, no lesions, no ulcers, no subcutaneous nodules, induration. Psychiatric/Neuro: oriented to time, place, person, judgement normal, affect appropriate for age, insight intact, no focal deficits. Tests: labs reviewed, review of old records completed, Discussed surgical options, risks, and possible complications with patient. Assessment/Plan 1. Rectal bleeding (K62.5: Hemorrhage of anus and rectum) plan EGD and colonoscopy under anesthesia, informed consent obtained. Ordered: sucralfate, 1 gm = 1 tab(s), Oral, QID, # 120 tab(s), Refills(s) 3, Pharmacy: [facility] #[id number], 177.8, cm, 03/08/22 15:41:00 EST, Height/Length Dosing, 91, kg, 03/08/22 15:41:00 EST, Weight Dosing 2. Melena (K92.1: Melena) see # 1; discontinue Diclofenac; begin PPI, also Carafate QID; call sooner if problems/questions. Ordered: sucralfate, 1 gm = 1 tab(s), Oral, QID, # 120 tab(s), Refills(s) 3, Pharmacy: [facility] #[id number], 177.8, cm, 03/08/22 15:41:00 EST, Height/Length Dosing, 91, kg, 03/08/22 15:41:00 EST, Weight Dosing 3. Change in bowel habits (R19.4: Change in bowel habit) see # 1 4. Helicobacter pylori ab+ (R76.8: Other specified abnormal immunological findings in serum) see # 2 Ordered: sucralfate, 1 gm = 1 tab(s), Oral, QID, # 120 tab(s), Refills(s) 3, Pharmacy: [facility] #[id number], 177.8, cm, 03/08/22 15:41:00 EST, Height/Length Dosing, 91, kg, 03/08/22 15:41:00 EST, Weight Dosing 5. Dyspepsia (R10.13: Epigastric pain) see # 1 Ordered: sucralfate, 1 gm = 1 tab(s), Oral, QID, # 120 tab(s), Refills(s) 3, Pharmacy: [facility] #[id number], 177.8, cm, 03/08/22 15:41:00 EST, Height/Length Dosing, 91, kg, 03/08/22 15:41:00 EST, Weight Dosing 6. Iron deficiency anemia (D50.9: Iron deficiency anemia, unspecified) see # 1 Ordered: sucralfate, 1 gm = 1 tab(s), Oral, QID, # 120 tab(s), Refills(s) 3, Pharmacy: [facility] #[id number], 177.8, cm, 03/08/22 15:41:00 EST, Height/Length Dosing, 91, kg, 03/08/22 15:41:00 (more content not included)... [facility] Comment on above: Result Comment: Elec tronically Signed By: CAMILLE CRAMER, Patricio Denise\Date and Time Signed: 03/08/22 17:15 EST 02-23-2022 Note Cardiology Follow Up Progress Note Chief Complaint: follow up HPI: Pablo Beckman is a 66 y.o. male with a past medical history including hypertension, hyperlipidemia, nonobstructive CAD (on cath in 03/30), atrial fibrillation, and ascending aortic aneurysm. He presents to clinic today for follow-up. Patient is doing well from a cardiac standpoint. He denies any chest pain or shortness of breath. He denies any lower extremity edema, orthopnea, paroxysmal nocturnal dyspnea. He denies any worsening of palpitations. He denies any near-syncope or syncope. His only complaint is that he has been having multiple episodes of diarrhea for the past 1 month. He states that he has 4-5 watery stools on a daily basis. This has gotten in the way of his work. He endorses some weight loss with his diarrhea. He is planning on discussing this with his primary care physician, Dr. Heard. He denies any pain with eating. No blood in his stools. No hematemesis. Cardiology ROS: GENERAL: Denies fever, chills, night sweats, endorses weight loss. HEENT: Denies changes in vision, photophobia, changes in hearing, epistaxis, oral bleeding. CARDIOVASCULAR: Denies chest pain, exertional dyspnea, orthopnea/PND, lower extremity edema, palpitations, lightheadedness/dizziness. RESPIRATORY: Denies SOB, coughing, wheezing GI: Denies abdominal pain, nausea/vomiting, heartburn, melena/hematochezia. RENAL: Denies dysuria, hematuria, flank pain. MSK: Denies muscle weakness/pain, arthralgias/joint pain. NEUROLOGIC: Denies LOC, weakness, numbness, headaches. SKIN: Denies abnormal rashes or bleeding. PSYCH: Denies significant anxiety, depression, sleep disturbances. Medications Current Outpatient Medications on File Prior to Visit Medication Sig Dispense Refill apixaban (Eliquis) 5 mg tablet Take 1 tablet by mouth in the morning and at bedtime. aspirin 81 mg chewable tablet Chew 1 tablet every day by oral route. ferrous sulfate 325 (65 Fe) MG tablet Take 1 tablet by mouth in the morning and at bedtime. furosemide (Lasix) 20 mg tablet Take 1 tablet by mouth in the morning. lisinopril 10 mg tablet Take 1 tablet by mouth in the morning. metoprolol tartrate 75 mg tablet Take by mouth in the morning and at bedtime. rosuvastatin (Crestor) 20 mg tablet Take 1 tablet by mouth in the morning. diclofenac (Voltaren) 75 mg EC tablet Take 75 mg by mouth in the morning and at bedtime. Do not crush, chew, or split. isosorbide mononitrate ER (Imdur) 30 mg 24 hr tablet Take 30 mg by mouth in the morning. Do not crush or chew. No current facility-administered medications on file prior to visit. Allergies Patient has no known allergies. Physical Exam VITAL SIGNS: BP (P) 98/52 Pulse (P) 67 Wt 92.5 kg (204 lb) SpO2 (P) 100% BMI 31.02 kg/m??? Constitutional: Well developed, Well nourished, No acute distress, Non-toxic appearance. HENT: Normocephalic, Atraumatic, Bilateral external ears have normal appearance, Bilateral TMs clear, Oropharynx moist, No oral or pharyngeal exudates, Nose appears normal, nares are patent. Eyes: PERRLA, EOMI, Conjunctiva normal, No discharge. Neck: Normal range of motion, No tenderness, Supple, No stridor. No cervical lymphadenopathy noted. Cardiovascular: Normal heart rate, Normal rhythm, No murmurs, No rubs, No gallops. Thorax & Lungs: Normal breath sounds, No respiratory distress, No wheezing, No chest tenderness to palpation. Abdomen: Bowel sounds normal, Soft, Nontender, No masses, No pulsatile masses. Skin: Warm, Dry, No erythema, No rash. Back: No tenderness, No CVA tenderness. Extremities: Intact distal pulses, No edema, No tenderness, No cyanosis, No clubbing. Musculoskeletal: Good range of motion in all major joints with 5/5 muscle strength in all muscle groups, No tenderness to palpation or major deformities noted. Neurologic: Alert & oriented x 3, Normal motor function in all major muscle groups, Normal sensory function to all major dermatomes, No focal deficits noted. Psychiatric: Affect normal, Judgment normal, Mood normal. EKG results: No results found for this or any previous visit (from the past 4464 hour(s)). Echo results: No echocardiogram results found for the past 12 months Cardiac Catheterization: 04/09/2021: Final impressions: 1. moderate coronary artery disease of OM1 and distal LAD 2. Mild pulmonary hypertension with mean PA pressure of 27 PCWP of 19 Impression: -Paroxysmal atrial fibrillation -Essential hypertension -Aneurysm of ascending aorta: stable on CT performed in 12/2021. -Nonsustained ventricular tachycardia Plan: -Continue Eliquis and Toprol for atrial fibrillation -Continue aspirin, statin for CAD -Continue lisinopril and metoprolol for hypertension -For NSVT, patient adamantly denies any chest pain. We have an echo that demonstrates preserved ejection fraction. There is no reversible ischemia on recent stress. Re (more content not included)... [facility] 12-24-2021 Note Cardiology Follow Up Progress Note Chief Complaint: follow up HPI: Pablo Beckman is a 66 y.o. male with a past medical history including hypertension, hyperlipidemia, nonobstructive CAD (on cath in 03/30), atrial fibrillation, and ascending aortic aneurysm. He presents to clinic today for follow-up. Patient adamantly denies any cardiac complaints or concerns at the present time. Patient adamantly denies any chest pain, syncope, LE edema, orthopnea, PND, palpitations, or bleeding. In November 2021, patient had a treadmill Cardiolite stress test performed by his PCP due to symptoms of shortness of breath. No reversible ischemia was noted, however, patient was noted to have episodes of nonsustained VT on treadmill stress test. Echocardiogram performed at that time demonstrated a preserved ejection fraction of 55 to 60%. Patient had cardiac cath performed in March 2021 which demonstrated nonobstructive disease. Event monitor was then performed to assess PVC burden, and patient was noted to have less than 1% PVC. He was noted to have several episodes of wide-complex tachycardia, VT versus SVT with aberrancy. Again, patient adamantly denies any cardiac complaints or concerns. He denies any chest pain. He denies any shortness of breath. He denies any palpitations at the present time. No near syncope or syncope. Cardiology ROS: GENERAL: Denies fever, chills, night sweats, weight loss. HEENT: Denies changes in vision, photophobia, changes in hearing, epistaxis, oral bleeding. CARDIOVASCULAR: Denies chest pain, exertional dyspnea, orthopnea/PND, lower extremity edema, palpitations, lightheadedness/dizziness. RESPIRATORY: Denies SOB, coughing, wheezing GI: Denies abdominal pain, nausea/vomiting, heartburn, melena/hematochezia. RENAL: Denies dysuria, hematuria, flank pain. MSK: Denies muscle weakness/pain, arthralgias/joint pain. NEUROLOGIC: Denies LOC, weakness, numbness, headaches. SKIN: Denies abnormal rashes or bleeding. PSYCH: Denies significant anxiety, depression, sleep disturbances. Medications Current Outpatient Medications on File Prior to Visit Medication Sig Dispense Refill apixaban (Eliquis) 5 mg tablet Take 1 tablet by mouth in the morning and at bedtime. aspirin 81 mg chewable tablet Chew 1 tablet every day by oral route. diclofenac (Voltaren) 75 mg EC tablet Take 75 mg by mouth in the morning and at bedtime. Do not crush, chew, or split. ferrous sulfate 325 (65 Fe) MG tablet Take 1 tablet by mouth in the morning and at bedtime. furosemide (Lasix) 20 mg tablet Take 1 tablet by mouth in the morning. isosorbide mononitrate ER (Imdur) 30 mg 24 hr tablet Take 30 mg by mouth in the morning. Do not crush or chew. lisinopril 10 mg tablet Take 1 tablet by mouth in the morning. metoprolol tartrate 75 mg tablet Take by mouth in the morning and at bedtime. rosuvastatin (Crestor) 20 mg tablet Take 1 tablet by mouth in the morning. No current facility-administered medications on file prior to visit. Allergies Patient has no known allergies. Physical Exam VITAL SIGNS: BP 108/60 (BP Location: Left arm, Patient Position: Sitting) Pulse 58 Ht 1.727 m (5' 8 ) Wt 98.4 kg (217 lb) SpO2 99% BMI 32.99 kg/m??? Constitutional: Well developed, Well nourished, No acute distress, Non-toxic appearance. HENT: Normocephalic, Atraumatic, Bilateral external ears have normal appearance, Bilateral TMs clear, Oropharynx moist, No oral or pharyngeal exudates, Nose appears normal, nares are patent. Eyes: PERRLA, EOMI, Conjunctiva normal, No discharge. Neck: Normal range of motion, No tenderness, Supple, No stridor. No cervical lymphadenopathy noted. Cardiovascular: Normal heart rate, Normal rhythm, No murmurs, No rubs, No gallops. Thorax & Lungs: Normal breath sounds, No respiratory distress, No wheezing, No chest tenderness to palpation. Abdomen: Bowel sounds normal, Soft, Nontender, No masses, No pulsatile masses. Skin: Warm, Dry, No erythema, No rash. Back: No tenderness, No CVA tenderness. Extremities: Intact distal pulses, No edema, No tenderness, No cyanosis, No clubbing. Musculoskeletal: Good range of motion in all major joints with 5/5 muscle strength in all muscle groups, No tenderness to palpation or major deformities noted. Neurologic: Alert & oriented x 3, Normal motor function in all major muscle groups, Normal sensory function to all major dermatomes, No focal deficits noted. Psychiatric: Affect normal, Judgment normal, Mood normal. EKG results: No results found for this or any previous visit (from the past 4464 hour(s)). Echo results: No echocardiogram results found for the past 12 months Cardiac Catheterization: 04/09/2021: Final impressions: 1. moderate coronary artery disease of OM1 and distal LAD 2. Mild pulmonary hypertension with mean PA pressure of 27 PCWP of 19 Impression: -Paroxysmal atrial fibrillation -Essential hyper (more content not included)... [facility] Evaluation + Plan note No data available for this section General Surgery [place] Evaluation note Diagnosis Malignant neoplasm of prostate (HCC)- Primary [facility] of prostate (HCC)- Primary Malignant neoplasm of prostate documented in this encounter [facility] Discharge instructions No data available for this section General Surgery [place] [facility] note No data available for this section General Surgery [place] Summary Purpose Family History No Family History Records FoundNo Family History Records FoundNo Family History Records FoundNo Family History Records FoundNo Family History Records Found Advance Directives No Advanced Directives Records FoundNo Advanced Directives Records FoundNo Advanced Directives Records FoundNo Advanced Directives Records FoundNo Advanced Directives Records Found Additional Source Comments (unrecognized sect ion and content) No Status Records FoundNo Status Records FoundNo Status Records FoundNo Status Records FoundNo Status Records Found INFORMATION SOURCE (unrecogn ized section and content) DATE CREATED AUTHOR 04/15/2021 [facility] DATE CREATED AUTHOR AUTHOR'S ORGANIZ ATION 04/07/2022 [facility] DATE CREATED AUTHOR AUTHOR'S ORGANIZ ATION 08/08/2022 [facility] DATE CREATED AUTHOR AUTHOR'S ORGANIZ ATION 08/10/2022 [facility] DATE CREATED AUTHOR AUTHOR'S ORGANCORNELIUS ATION 05/24/2023 [facility] Patient Care team informatio n (unrecognized section and content) Peer Support Specialist Relationship Specialty Start Date End Date Lv Heard MD PCP - General 02/24/09 Peer Support Specialist Relationship Specialty Start Date End Date Lv Heard MD PCP - General 02/24/09 Source Comments (unrecognize d section and content) In the event this informatio n is protected by the Federal Confidentiality of Alcohol and Drug Abuse Patient Records regulations: The Federal rules restrict any use of the information to criminally investigate or prosecute any alcohol or drug abuse patient.[facility] the event this information is protected by the Federal Confidentiality of Alcohol and Drug Abuse Patient Records regulations: The Federal rules restrict any use of the information to criminally investigate or prosecute any alcohol or drug abuse patient.[facility] the event this information is protected by the Federal Confidentiality of Alcohol and Drug Abuse Patient Records regulations: The Federal rules restrict any use of the information to criminally investigate or prosecute any alcohol or drug abuse patient.[facility] Reason for Visit (unrecogniz ed section and content) Reason Comments Patient Question Reason Comments Established Patient Specialty Diagnoses / Procedures Referred By Contac t Referred To Contact Radiation Oncology / RADIATION ONCOLOGY Diagnoses Follow-up examination 1 yr follow up, psa at [place] Procedures OFFICE/OUTPATIENT ESTABLISHED MOD MDM 30-39 MIN EST PATIENT Quinton Gonzáles MD [address] [place] [address] [place] [address] Quinton Gonzáles MD [address] [place] [address] [place] [address] Referral ID Status Reason Start Date Expiration Date Visits Re quested Visits Authorized [id number] Open 06/23/2022 09/21/2022 1 0 Reason Comments Future Appointment FOR RECORDS PERTAINING TO PATIENTS WHO ARE OR HAVE BEEN ENROLLED IN A CHEMICAL DEPENDENCY/SUBSTANCEABUSE PROGRAM, SOME INFORMATION MAY BE OMITTED. This clinical summary was aggregated from multiple sources. Caution should be exercised in using it in the provision of clinical care. This summary normalizes information from multiple sources, and as a consequence, information in this document may materially change the coding, format and clinical context of patient data. In addition, data may be omitted in some cases. CLINICAL DECISIONS SHOULD BE BASED ON THE PRIMARY CLINICAL RECORDS. [facility] [employer] [facility] provides no warranty or guarantee of the accuracy or completeness of information in this document.
[2023-06-13 14:38] LABS: Prostate Specific Antigen Dx <0.13 ng/mL (<=4.00)
== END 2023-06-13 12:07 | disposition home or self-care (01) ==
LOC: LAB 12:09
PROVIDERS: PCP Family Medicine; Visit Provider Radiology Radiation Oncology
DX: C61 Malignant neoplasm of prostate (principal)
CPT/HCPCS: 36415; 84153

== ENCOUNTER 2023-06-13 12:12 | Outpatient (OUT) | payer OTHER, SELFPAY ==
--- OUTSIDE RECORDS SUMMARY | 2023-06-13 12:35 | XMS_ITS | CCD ---
Author Name Unknown Address [address] [place] [address] Organization [facility] Care Team Providers Care Ball Point Splitter Name Role Phone MAMTA STEPHENSON Attending Unavailable SELF, REFERRED Primary Care Unavailable SELF, REFERRED Referring Unavailable MAMTA STEPHENSON Admitting Unavailable Lv Heard Primary Care Physician Patricio BEAUCHAMP Attending Unavailable NILLPatricio Attending Unavailable Patricio BEAUCHAMP Attending Unavailable Lv Heard MD Primary Care Provider CAMILLE ., DR CURRY Admitting Unavailable NILL [...] ., DR AWAN Primary Care Unavailable MAMTA STEPHENSON Attending Unavailable ALEXI WEEKS Attending Unavailable ALEXI WEEKS Attending Unavailable CUBA PONCE Attending Unavailable LV HEARD Primary Care Unavailable Quinton GONZÁLES Referring Unavailable Quinton GONZÁLES Attending Unavailable Allergies Allergy Classification Reported Allergen(s) Allergy Type Date of Onset Reaction(s) Facility (1 source) No Known Medication Allergies; Translations: [No Known Medication Allergies] Propensity to adverse reactions (disorder) [facility] Repository Medications Current Medications Medication Drug Class(es) [...] QID, # 120 tab(s), Refills(s) 3, Pharmacy: [id number], 177.8, cm, 03/08/22 15:41:00 EST, Height/Length Dosing, [...] on above: Take 1 capsule by mo [facility] daily at bedtime. 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 He will also need PSA. Please sign pended order and we will fax to [facility]. Josefina Anderson RN Allergies As of Date: 05/23/2023 (No Known Allergies) Date Reviewed: 06/24/2020 Reviewed by: Kamari July - Fully Assessed Reason for Visit: Future Appointment [256] Primary Visit Diagnosis:Malignant neoplasm of prostate (HCC) [C61] Order(s):PSA/PROSTSPECAG DIAG [SQPSA] Order #: [id number] FUTURE Prescriptions as of 05/23/2023 - valACYclovir [...] [facility] Center Office Visiton 08-09-2022 Follow-up visit [id number] Hanna Beckman 1955 M Date Provider Department Center 08/09/2022 [id number] PONCE TIN Bansal Family History Problem Relation Age of Onset Stroke Mother Family Status - Relation Status Age at Mother Level of Service:45568 [place] OFFICE/OUTPATIENT NEW HIGH MDM 60-74 MINUTES Normal [facility] Jason 06-22-2022 CNPN Telephone (RADTSA) PABLO BECKMAN ([id number]) 1955 M Date Time Provider Department 06/22/22 [...] Patient was notified. PSS- please change in [facility]. TOOTIE Nance 06/23/2022 10:04 AM Signed Appointment has been changed in [facility]. Kwaku Rasmussen Allergies As of Date: 06/22/2022 (No Known Allergies) Date Reviewed: 06/24/2020 Reviewed by: Felecia Benites - Fully Assessed Reason for Visit: Patient Question [6387] Prescriptions as of 06/23/2022 - valACYclovir (VALTREX) [...] Encounter Status:Closed by HERMILO LOGAN on 06/23/22 [facility] 36on 05-20-2022 36 Approving, but needs appt for additional refills. Normal [facility] Office Visiton 05-17-2022 Follow-up visit [id number] Hanna Beckman 1955 M Date Provider Department Center 05/17/2022 MAMTA EGAN TIN [facility] Family History Problem Relation Age of Onset Stroke Mother Family Status - Relation Status Age at Mother Level of Service:[address]951 [place] OFFICE/OUTPATIENT ESTABLISHED LOW MDM 20-29 MIN Reason for Visit and Comments: Hyperlipidemia [182] Hypertension [698010] Atrial Fibrillation [80] Coronary Artery Disease [187] Normal [facility] Pathology Noteon 04-07-2022 Pathology Note [id number]#[id number]:127 Normal [facility] General Surgery Office/Clini c Noteon 03-29-2022 General [...] HTN (hypertension) Hypertensive disorder Iron deficiency anemia detention current use of anticoagulant Macular puckering Melena [...] inactivated - Not Given Patient Refuses Normal [facility] Comment on above: Result Comment: Elec tronically Signed By: CAMILLE CRAMER, Patricio Denise\Date and Time Signed: 03/29/22 16:23 EST Outside Colonoscopyon 2021 Outside Colonoscopy [id number]#[id number]:127 Normal [facility] Reminderson 03-21-2022 Reminders - From: Rosey Cleary LPN To: GSN - Clinical; Sent: 03/21/2022 10:19:27 EST Show up: 02/17/2032 07:00:00 EST Subject: colonoscopy recall Due Date/Time: 03/18/2032 07:00:00 EST Reminder/Recall Patient due for screening colonoscopy 03/18/2032. Normal [facility] Lab Reportson 03-15-2022 Lab Reports [id number]#[id number]:127 Normal [facility] Covid-19 PCR (CVDTB)on SARS-CoV-2 (COVID-19) RNA ISIDRO+probe Ql (Unsp spec) Not detected Normal NOT DETECTED [facility] Comment on above: Result Comment: This test is not yet approved or cleared by the [place] FDA. When there are no FDA-approved or cleared tests available, and other criteria are met, FDA can make tests available under an emergency access mechanism called an Emergency Use Authorization (EUA). The EUA for this test is supported by the [employer] of Health and Human Service's (HHS's) declaration [...] T SH, T7, LIPA, EMILY, CMP #### [facility] [address] [place] [address] Dr. Emely Adrian Consent for Procedure/Surger yon 03-10-2022 Consent for Procedure/Surgery [id number]:127 Normal [facility] Facesheeton 03-10-2022 Facesheet [id number]#1.00CD:127 Normal [facility] CBC AUTO DIFFon 03-09-2022 BASO # 0.0 103/ul Normal 0.0-0.1 [facility] Comment on above: Performed By: #### T SH, T7, LIPA, EMILY, CMP #### [facility] [address] [place] [address] Dr. Emely Adrian Basophils/100 WBC (Bld) 0.1 % Critically low 0.2-2.0 [facility] Comment on above: Performed By: #### T SH, T7, LIPA, EMILY, CMP #### [facility] [address] [place] [address] Dr. Emely Adrian EO # 0.2 103/ul Normal 0.0-0.7 [facility] Comment on above: Performed By: #### T SH, T7, LIPA, EMLIY, CMP #### [facility] [address] [place] [address] Dr. Emely Adrian Eosinophils/100 WBC (Bld) 3.2 % Normal 0.9-7.0 [facility] Comment on above: Performed By: #### T SH, T7, LIPA, EMILY, CMP #### [facility] [address] [place] [address] Dr. Emely Adrian Erythrocyte distribution width (RBC) [Ratio] 15.8 % Critically high 11.0-15.0 [facility] Comment on above: Performed By: #### T SH, T7, LIPA, EMILY, CMP #### [facility] [address] [place] [address] Dr. Emely Adrian Hematocrit (Bld) [Volume fraction] 26.6 % Critically low 42.0-54.0 [facility] Comment on above: Performed By: #### T SH, T7, LIPA, EMILY, CMP #### [facility] [address] [place] [address] Dr. Emely Adrian Hemoglobin (Bld) [Mass/Vol] 9.0 g/dL Critically low 14.0-18.0 [facility] Comment on above: Performed By: #### T SH, T7, LIPA, EMILY, CMP #### [facility] [address] [place] [address] Dr. Emely Adrian IG # 0.05 10e3/ul Critically high 0.00-0.03 [facility] Comment on above: Performed By: #### T SH, T7, LIPA, EMILY, CMP #### [facility] [address] [place] [address] Dr. Emely Adrian IG % 0.7 % Critically high 0.0-0.5 [facility] Comment on above: Performed By: #### T SH, T7, LIPA, EMILY, CMP #### [facility] [address] [place] [address] Dr. Emely Adrian LYMPH # 1.8 103/ul Normal 1.2-3.8 [facility] Comment on above: Performed By: #### T SH, T7, LIPA, EMILY, CMP #### [facility] [address] [place] [address] Dr. Emely Adrian Lymphocytes/100 WBC (Bld) 24.2 % Normal 20.5-60.0 [facility] Comment on above: Performed By: #### T SH, T7, LIPA, EMILY, CMP #### [facility] [address] [place] [address] Dr. Emely Adrian MANUAL DIFF REQ NO Normal [facility] Comment on above: Performed By: #### T SH, T7, LIPA, EMILY, CMP #### [facility] [address] [place] [address] Dr. Emely Adrian MCH (RBC) [Entitic mass] 32.7 pg Normal 25.9-34.0 [facility] Comment on above: Performed By: #### T SH, T7, LIPA, EMILY, CMP #### [facility] [address] [place] [address] Dr. Emely Adrian MCHC (RBC) [Mass/Vol] 33.8 g/dL Normal 29.9-35.2 [facility] Comment on above: Performed By: #### T SH, T7, LIPA, EMILY, CMP #### [facility] [address] [place] [address] Dr. Emely Adrian MCV (RBC) [Entitic vol] 96.7 fL Critically high 80.0-94.0 [facility] Comment on above: Performed By: #### T SH, T7, LIPA, EMILY, CMP #### [facility] [address] [place] [address] Dr. Emely Adrian MONO # 1.3 103/ul Critically high 0.3-0.8 [facility] Comment on above: Performed By: #### T SH, T7, LIPA, EMILY, CMP #### [facility] [address] [place] [address] Dr. Emely Adrian Monocytes/100 WBC (Bld) 18.0 % Critically high 1.7-12.0 [facility] Comment on above: Performed By: #### T SH, T7, LIPA, EMILY, CMP #### [facility] [address] [place] [address] Dr. Emely Adrian NEUT # 4.0 103/ul Normal 1.4-6.5 [facility] Comment on above: Performed By: #### T SH, T7, LIPA, EMILY, CMP #### [facility] [address] [place] [address] Dr. Emely Adrian Neutrophils/100 WBC (Bld) 53.8 % Normal 43.0-75.0 [facility] Comment on above: Performed By: #### T SH, T7, LIPA, EMILY, CMP #### [facility] [address] [place] [address] Dr. Emely Adrian Platelet mean volume (Bld) [Entitic vol] 8.7 fL Critically low 9.5-13.5 [facility] Comment on above: Performed By: #### T SH, T7, LIPA, EMILY, CMP #### [facility] [address] [place] [address] Dr. Emely Adrian PLT 320 103/ul Normal 150-450 [facility] Comment on above: Performed By: #### T SH, T7, LIPA, EMILY, CMP #### [facility] [address] [place] [address] Dr. Emely Adrian RBC 2.75 106/ul Critically low 4.70-6.10 [facility] Comment on above: Performed By: #### T BASIM, T7, LIPA, EMILY, CMP #### [facility] [address] [place] [address] Dr. Emely Adrian WBC 7.5 103/ul Normal 4.0-11.0 [facility] Comment on above: Performed By: #### T BASIM, T7, LIPA, EMILY, CMP #### [facility] [address] [place] [address] Dr. Emely Adrian LACTATE/LACTIC ACIDon 2021 Lactate [Moles/Vol] 0.7 mmol/L Normal 0.4-1.9 [facility] Comment on above: Performed By: #### T BASIM, T7, LIPA, EMILY, CMP #### [facility] [address] [place] [address] Dr. Emely Adrian LIPASEon 03-09-2022 Lipase [Catalytic activity/Vol] 386.0 U/L Normal 73.0-393.0 [facility] Comment on above: Performed By: #### C BC #### [facility] [address] [place] [address] Dr. Emely Adrian PROF 14(COMP METB)on 022 Albumin [Mass/Vol] 2.9 g/dL Critically low 3.4-5.0 [facility] Comment on above: Performed By: #### C MP #### [facility] [address] [place] [address] Dr. Emely Adrian Albumin/Globulin [Mass ratio] 0.7 {ratio} Normal [facility] Comment on above: Performed By: #### C MP #### [facility] [address] [place] [address] Dr. Emely Adrian ALP [Catalytic activity/Vol] 43 U/L Critically low 46-116 [facility] Comment on above: Performed By: #### C MP #### [facility] [address] [place] [address] Dr. Emely Adrian ALT [Catalytic activity/Vol] 23 U/L Normal 16-63 [facility] Comment on above: Performed By: #### C MP #### [facility] [address] [address] [address] Emely Adrian Anion gap [Moles/Vol] 13.4 mmol/L Normal [facility] Comment on above: Performed By: #### C MP #### [facility] [address] [address] [address] Emely Adrian AST [Catalytic activity/Vol] 21 U/L Normal 15-37 [facility] Comment on above: Performed By: #### C MP #### [facility] [address] [address] [address] Emely Adrian Bilirubin [Mass/Vol] 0.4 mg/dL Normal 0.2-1.0 [facility] Comment on above: Performed By: #### C MP #### [facility] [address] [address] [address] Emely Adrian Calcium [Mass/Vol] 8.3 mg/dL Critically low 8.5-10.1 [facility] Comment on above: Performed By: #### C MP #### [facility] [address] [address] [address] Emely Adrian Chloride [Moles/Vol] 104 mmol/L Normal 98-107 [facility] Comment on above: Performed By: #### C MP #### [facility] [address] [address] [address] Emely Adrian CO2 [Moles/Vol] 22.9 mmol/L Normal 21.0-32.0 [facility] Comment on above: Performed By: #### C MP #### [facility] [address] [address] [address] Emely Adrian Creatinine [Mass/Vol] 1.80 mg/dL Critically high 0.70-1.30 [facility] Comment on above: Performed By: #### C MP #### [facility] [address] [address] [address] Emely Adrian EGFR-AF ESTONIAN 46 mL/min/1.73m2 Critically low >=60 [facility] Comment on above: Performed By: #### C MP #### [facility] [address] [address] [address] Emely Adrian EGFR-NON AF ESTONIAN 38 mL/min/1.73m2 Critically low >=60 [facility] Comment on above: Performed By: #### C MP #### [facility] [address] [address] [address] Emely Adrian Globulin (S) [Mass/Vol] 4.3 g/dL Normal [facility] Comment on above: Performed By: #### C MP #### [facility] [address] [address] [address] Emely Adrian Glucose [Mass/Vol] 105 mg/dL Normal 74-106 [facility] Comment on above: Performed By: #### C MP #### [facility] [address] [address] [address] Emely Adrian Potassium [Moles/Vol] 4.3 mmol/L Normal 3.5-5.1 [facility] Comment on above: Performed By: #### C MP #### [facility] [address] [address] [address] Emely Adrian Protein [Mass/Vol] 7.2 g/dL Normal 6.4-8.2 [facility] Comment on above: Performed By: #### C MP #### [facility] [address] [address] [address] Emely Adrian Sodium [Moles/Vol] 136 mmol/L Normal 136-145 [facility] Comment on above: Performed By: #### C MP #### [facility] [address] [address] [address] Emely Adrian Urea nitrogen [Mass/Vol] 35.0 mg/dL Critically high 7.0-18.0 [facility] Comment on above: Performed By: #### C MP #### [facility] [address] [address] [address] mEely Adrian Urea nitrogen/Creatini ne [Mass ratio] 19.4 mg/mg Normal [facility] Comment on above: Performed By: #### C MP #### [facility] [address] [place] [address] Dr. Emely Adrian PROTIMEon 03-09-2022 INR Coag (PPP) [Relative time] 1.12 {INR} Normal [facility] Comment on above: Performed By: #### P TT, PT #### [facility] [address] [place] [address] Dr. Emely Adrian INR GUIDELINES SEE BELOW Normal [facility] Comment on above: Result Comment: DUSTIN RED INR: 2.0 - 3.0 CONDITIONS NOT LISTED BELOW 2.5 - 3.5 FOR PROSTHETIC HEART VALVE REPLACEMENT 2.5 - 3.5 RECURRENT THROMBOSIS Performed By: #### P TT, PT #### [facility] [address] [place] [address] Dr. Emely Adrian PT Coag (PPP) [Time] 12.0 s Critically high 9.0-11.6 [facility] Comment on above: Performed By: #### P TT, PT #### [facility] [address] [place] [address] Dr. Emely Adrian PTTon 03-09-2022 aPTT Coag (Bld) [Time] 32.1 s Normal 22.3-36.2 [facility] Comment on above: Performed By: #### P TT, PT #### [facility] [address] [place] [address] Dr. Emely Adrian TROPONIN, HIGH SENSITIVITYon 03-09-2022 HSTROP 12.0 pg/mL Normal 4.0-76.1 [facility] Comment on above: Result Comment: CUT- OFF POINTS HAVE BEEN ESTABLISHED BASED ON THE FOURTH UNIVERSAL DEFINITIONS OF MYOCARDIAL INFARCTION. THE UPPER REFERENCE LIMIT (URL) OF TROPONIN, DEFINED THE 99TH PERCENTILE OF cTnI DISTRIBUTION IN A REFERENCE POPULATION, HAS BEEN CONFIRMED THE DECISION THRESHOLD FOR MD DIAGNOSIS. Performed By: #### T SH, T7, LIPA, EMILY, CMP #### [facility] [address] [place] [address] Dr. Emely Adrian TYPE AND SCREENon 03-09-2022 TYPE AND SCREEN Negative Normal [facility] Comment on above: Performed By: #### T SH, T7, EMILY WIGGINS, CMP #### [facility] [address] [address] [address] Emely Adrian XR CHEST 1 Von [...] by: PATRICIO ANTON Date: 2022-03-09 10:17 Normal [facility] Physician Referralon 022 Physician Referral [id number]:127 Normal [facility] CA 19-9on 02-26-2022 CA 19-9 4 U/mL Normal 0-35 [facility] Comment on above: Result Comment: [employer] Electrochemiluminescence Immunoassay (ECLIA) . Values obtained with different assay methods or kits cannot be used interchangeably. Results cannot be interpreted as absolute evidence of the presence or absence of malignant disease. Performed By: #### T Royer STALLWORTH, EMILY WIGGINS, CMP #### [facility] [address] [address] [address] Emely Adrian CEAon 02-26-2022 CEA 1.9 ng/mL Normal 0.0-4.7 [facility] Comment on above: Result Comment: Nons mokers <3.9 Smokers <5.6 . [employer] Electrochemiluminescence Immunoassay (ECLIA) . Values obtained with different assay methods or kits cannot be used interchangeably. Results cannot be interpreted as absolute evidence of the presence or absence of malignant disease. Performed By: #### T BASIM, T7, FELICIANO, EMILY, CMP #### [facility] [address] [address] [address] Emely Adrian H PYLORI ANTIBODY IGGon 02-08 H. PYLORI IGG ABS 1.19 Index Value Critically high 0.00-0. 79 [facility] Comment on above: Result Comment: Nega tive <0.80 Equivocal 0.80 - 0.89 Positive >0.89 Performed By: #### C BC #### [facility] [address] [place] [address] Dr. Emely Adrian AMYLASEon 02-25-2022 Amylase [Catalytic activity/Vol] 118 U/L Critically high 25-115 [facility] Comment on above: Performed By: #### T SH, T7, LIPA, EMILY, CMP #### [facility] [address] [place] [address] Dr. Emely Adrian CBC AUTO DIFFon 02-25-2022 BASO # 0.0 103/ul Normal 0.0-0.1 [facility] Comment on above: Performed By: #### T SH, T7, LIPA, EMILY, CMP #### [facility] [address] [place] [address] Dr. Emely Adrian Basophils/100 WBC (Bld) 0.2 % Normal 0.2-2.0 [facility] Comment on above: Performed By: #### T SH, T7, LIPA, EMILY, CMP #### [facility] [address] [place] [address] Dr. Emely Adrian EO # 0.1 103/ul Normal 0.0-0.7 [facility] Comment on above: Performed By: #### T SH, T7, LIPA, EMILY, CMP #### [facility] [address] [place] [address] Dr. Emely Adrian Eosinophils/100 WBC (Bld) 2.8 % Normal 0.9-7.0 [facility] Comment on above: Performed By: #### T SH, T7, LIPA, EMILY, CMP #### [facility] [address] [place] [address] Dr. Emely Adrian Erythrocyte distribution width (RBC) [Ratio] 15.6 % Critically high 11.0-15.0 [facility] Comment on above: Performed By: #### T SH, T7, LIPA, EMILY, CMP #### [facility] [address] [place] [address] Dr. Emely Adrian Hematocrit (Bld) [Volume fraction] 28.9 % Critically low 42.0-54.0 [facility] Comment on above: Performed By: #### T SH, T7, LIPA, EMILY, CMP #### [facility] [address] [place] [address] Dr. Emely Adrian Hemoglobin (Bld) [Mass/Vol] 9.5 g/dL Critically low 14.0-18.0 [facility] Comment on above: Performed By: #### T SH, T7, LIPA, EMILY, CMP #### [facility] [address] [place] [address] Dr. Emely Adrian IG # 0.04 10e3/ul Critically high 0.00-0.03 [facility] Comment on above: Performed By: #### T SH, T7, LIPA, EMILY, CMP #### [facility] [address] [place] [address] Dr. Emely Adrian IG % 0.9 % Critically high 0.0-0.5 [facility] Comment on above: Performed By: #### T SH, T7, LIPA, EMILY, CMP #### [facility] [address] [place] [address] Dr. Emely Adrian LYMPH # 1.3 103/ul Normal 1.2-3.8 [facility] Comment on above: Performed By: #### T SH, T7, LIPA, EMILY, CMP #### [facility] [address] [place] [address] Dr. Emely Adrian Lymphocytes/100 WBC (Bld) 29.6 % Normal 20.5-60.0 [facility] Comment on above: Performed By: #### T SH, T7, LIPA, EMILY, CMP #### [facility] [address] [place] [address] Dr. Emely Adrian MANUAL DIFF REQ NO Normal [facility] Comment on above: Performed By: #### T SH, T7, LIPA, EMILY, CMP #### [facility] [address] [place] [address] Dr. Emely Adiran MCH (RBC) [Entitic mass] 32.1 pg Normal 25.9-34.0 [facility] Comment on above: Performed By: #### T SH, T7, LIPA, EMILY, CMP #### [facility] [address] [place] [address] Dr. Emely Adrian MCHC (RBC) [Mass/Vol] 32.9 g/dL Normal 29.9-35.2 [facility] Comment on above: Performed By: #### T SH, T7, LIPA, EMILY, CMP #### [facility] [address] [place] [address] Dr. Emely Adrian MCV (RBC) [Entitic vol] 97.6 fL Critically high 80.0-94.0 [facility] Comment on above: Performed By: #### T SH, T7, LIPA, EMILY, CMP #### [facility] [address] [place] [address] Dr. Emely Adrian MONO # 0.8 103/ul Normal 0.3-0.8 [facility] Comment on above: Performed By: #### T SH, T7, LIPA, EMILY, CMP #### [facility] [address] [place] [address] Dr. Emely Adrian Monocytes/100 WBC (Bld) 17.2 % Critically high 1.7-12.0 [facility] Comment on above: Performed By: #### T SH, T7, LIPA, EMILY, CMP #### [facility] [address] [place] [address] Dr. Emely Adrian NEUT # 2.2 103/ul Normal 1.4-6.5 [facility] Comment on above: Performed By: #### T SH, T7, LIPA, EMILY, CMP #### [facility] [address] [place] [address] Dr. Emely Adrian Neutrophils/100 WBC (Bld) 49.3 % Normal 43.0-75.0 [facility] Comment on above: Performed By: #### T SH, T7, LIPA, EMILY, CMP #### [facility] [address] [place] [address] Dr. Emely Adrian Platelet mean volume (Bld) [Entitic vol] 9.2 fL Critically low 9.5-13.5 [facility] Comment on above: Performed By: #### T SH, T7, LIPA, EMILY, CMP #### [facility] [address] [place] [address] Dr. Emely Adrian PLT 259 103/ul Normal 150-450 [facility] Comment on above: Performed By: #### T SH, T7, LIPA, EMILY, CMP #### [facility] [address] [place] [address] Dr. Emely Adrian RBC 2.96 106/ul Critically low 4.70-6.10 [facility] Comment on above: Performed By: #### T SH, T7, LIPA, EMILY, CMP #### [facility] [address] [place] [address] Dr. Emely Adrian WBC 4.4 103/ul Normal 4.0-11.0 [facility] Comment on above: Performed By: #### T SH, T7, LIPA, EMILY, CMP #### [facility] [address] [place] [address] Dr. Emely Adrian FREE THYROXINE INDEX T7on FTI 1.80 Normal 1.30-4.50 [facility] Comment on above: Performed By: #### T SH, T7, LIPA, EMILY, CMP #### [facility] [address] [place] [address] Dr. Emely Adrian T3U 34.0 % Normal 33.0-40.0 [facility] Comment on above: Performed By: #### T SH, T7, LIPA, EMILY, CMP #### [facility] [address] [place] [address] Dr. Emely Adrian T4 [Mass/Vol] 5.30 ug/dL Normal 4.50-12.10 [facility] Comment on above: Performed By: #### T SH, T7, LIPA, EMILY, CMP #### [facility] [address] [place] [address] Dr. Emely Adrian GI PANEL (PCR)on 02-25-2022 Adenovirus F 40/41 Not detected Normal NOT DETECTED [facility] Comment on above: Performed By: #### G IPANEL #### [facility] [address] [place] [address] Dr. Emely Adrian Astrovirus Not detected Normal NOT DETECTED [facility] Comment on above: Performed By: #### G IPANEL #### [facility] [address] [address] [address] Emely Adrian C. Diff toxin A/B Not detected Normal NOT DETECTED [facility] Comment on above: Performed By: #### G IPANEL #### [facility] [address] [place] [address] Dr. Emely Adrian Campylobacter Not detected Normal NOT DETECTED [facility] Comment on above: Performed By: #### G IPANEL #### [facility] [address] [place] [address] Dr. Emely Adrian Cryptosporidium Not detected Normal NOT DETECTED [facility] Comment on above: Performed By: #### G IPANEL #### [facility] [address] [place] [address] Dr. Emely Adrian Cyclos. Cayetanensis Not detected Normal NOT DETECTED [facility] Comment on above: Performed By: #### G IPANEL #### [facility] [address] [place] [address] Dr. Emely Adrian E. Coli O157 Not Applicable Normal Not Applicable [facility] Comment on above: Performed By: #### G IPANEL #### [facility] [address] [place] [address] Dr. Emely Adrian E. histolytica Not detected Normal NOT DETECTED [facility] Comment on above: Performed By: #### G IPANEL #### [facility] [address] [place] [address] Dr. Emely Adrian EAEC Not detected Normal NOT DETECTED [facility] Comment on above: Performed By: #### G IPANEL #### [facility] [address] [place] [address] Dr. Emely Adrian EIEC Not detected Normal NOT DETECTED [facility] Comment on above: Performed By: #### G IPANEL #### [facility] [address] [place] [address] Dr. Emely Adrian EPEC Not detected Normal NOT DETECTED [facility] Comment on above: Performed By: #### G IPANEL #### [facility] [address] [address] [address] Emely Adrian ETEC Not detected Normal NOT DETECTED [facility] Comment on above: Performed By: #### G IPANEL #### [facility] [address] [address] [address] Emely Olsen Lamblia Not detected Normal NOT DETECTED [facility] Comment on above: Performed By: #### G IPANEL #### [facility] [address] [address] [address] Emely STODDARD CONTROLS PASSED Normal [facility] Comment on above: Performed By: #### G IPANEL #### [facility] [address] [place] [address] Dr. Emely HERNANDEZ HEADER GI PANEL BACTERIA Normal [facility] Comment on above: Performed By: #### G IPANEL #### [facility] [address] [place] [address] Dr. Emely KAHN ECOLI GI PANEL DIARRHEAGEN IC E.COLI / SHIGELLA Normal [facility] Comment on above: Performed By: #### G IPANEL #### [facility] [address] [place] [address] Dr. Emely KAHN INFO SEE BELOW Normal [facility] Comment on above: Result Comment: EAEC - Enteroaggregative E. Coli EPEC- Enteropathogenic E. Coli ETEC- Enterotoxigenic E. Coli lt/st STEC- Shigella-like toxin-producing E. Coli stx1/stx2 EIEC- Shigella/Enteroinvasive E. Coli Performed By: #### G IPANEL #### [facility] [address] [place] [address] Dr. Emely KAHN PARASITES GI PANEL PARASITES Normal [facility] Comment on above: Performed By: #### G IPANEL #### [facility] [address] [place] [address] Dr. Emely KAHN VIRUS GI PANEL VIRUSES Normal [facility] Comment on above: Performed By: #### G IPANEL #### [facility] [address] [place] [address] Dr. Emely Adrian Norovirus GI/GII Not detected Normal NOT DETECTED [facility] Comment on above: Performed By: #### G IPANEL #### [facility] [address] [address] [address] Emely Adrian P. Shigelloides Not detected Normal NOT DETECTED [facility] Comment on above: Performed By: #### G IPANEL #### [facility] [address] [place] [address] Dr. Emely Adrian Rotavirus A Not detected Normal NOT DETECTED [facility] Comment on above: Performed By: #### G IPANEL #### [facility] [address] [place] [address] Dr. Emely Adrian Salmonella Not detected Normal NOT DETECTED [facility] Comment on above: Performed By: #### G IPANEL #### [facility] [address] [place] [address] Dr. Emely Adrian Sapovirus Not detected Normal NOT DETECTED [facility] Comment on above: Performed By: #### G IPANEL #### [facility] [address] [place] [address] Dr. Emely Adrian STEC Not detected Normal NOT DETECTED [facility] Comment on above: Performed By: #### G IPANEL #### [facility] [address] [place] [address] Dr. Emely Adrian Vibrio Not detected Normal NOT DETECTED [facility] Comment on above: Performed By: #### G IPANEL #### [facility] [address] [place] [address] Dr. Emely Adrian Vibrio Cholera Not detected Normal NOT DETECTED [facility] Comment on above: Performed By: #### G IPANEL #### [facility] [address] [place] [address] Dr. Emely Adrian Y. Enterocolitica Not detected Normal NOT DETECTED [facility] Comment on above: Performed By: #### G IPANEL #### [facility] [address] [place] [address] Dr. Emely Adrian GLYCOHEMOGLOBIN A1Con 2021 ADA RECOMMENDATION SEE BELOW Normal [facility] Comment on above: Result Comment: ADA RECOMMENDED LIMIT 4.0 - 6.0 ADA THERAPEUTIC TARGET < 7.0 ACTION SUGGESTED > 7.0 Performed By: #### T SH, T7, LIPA, EMILY, CMP #### [facility] [address] [place] [address] Dr. Emely Adrian Glucose [Mass/Vol] 120 mg/dL Normal [facility] Comment on above: Performed By: #### T SH, T7, LIPA, EMILY, CMP #### [facility] [address] [place] [address] Dr. Emely Adrian HbA1c (Bld) [Mass fraction] 5.8 % Normal 4.5-6.2 [facility] Comment on above: Performed By: #### T SH, T7, LIPA, EMILY, CMP #### [facility] [address] [place] [address] Dr. Emely Adrian IRONon 02-25-2022 Iron [Mass/Vol] 55.0 ug/dL Critically low 65.0-175.0 [facility] Comment on above: Performed By: #### C BC #### [facility] [address] [place] [address] Dr. Emely Adrian LIPASEon 02-25-2022 Lipase [Catalytic activity/Vol] 671.0 U/L Critically high 73.0-393.0 [facility] Comment on above: Performed By: #### T SH, T7, LIPA, EMILY, CMP #### [facility] [address] [place] [address] Dr. Emely Adrian OCC BLD IMMUNO SCREENon 02-08 OCCULT BLOOD Positive Abnormal NEGATIVE [facility] Comment on above: Performed By: #### T SH, T7, LIPA, EMILY, CMP #### [facility] [address] [place] [address] Dr. Emely Adrian PROF 14(COMP METB)on 11-18-2 022 Albumin [Mass/Vol] 3.0 g/dL Critically low 3.4-5.0 [facility] Comment on above: Performed By: #### T SH, T7, LIPA, EMILY, CMP #### [facility] [address] [place] [address] Dr. Emely Adrian Albumin/Globulin [Mass ratio] 0.8 {ratio} Normal [facility] Comment on above: Performed By: #### T SH, T7, LIPA, EMILY, CMP #### [facility] [address] [place] [address] Dr. Emely Adrian ALP [Catalytic activity/Vol] 58 U/L Normal 46-116 [facility] Comment on above: Performed By: #### T SH, T7, LIPA, EMILY, CMP #### [facility] [address] [place] [address] Dr. Emely Adrian ALT [Catalytic activity/Vol] 25 U/L Normal 16-63 [facility] Comment on above: Performed By: #### T SH, T7, LIPA, EMILY, CMP #### [facility] [address] [place] [address] Dr. Emely Adrian Anion gap [Moles/Vol] 12.1 mmol/L Normal [facility] Comment on above: Performed By: #### T SH, T7, LIPA, EMILY, CMP #### [facility] [address] [place] [address] Dr. Emely Adrian AST [Catalytic activity/Vol] 20 U/L Normal 15-37 [facility] Comment on above: Performed By: #### T SH, T7, LIPA, EMILY, CMP #### [facility] [address] [place] [address] Dr. Emely Adrian Bilirubin [Mass/Vol] 0.2 mg/dL Normal 0.2-1.0 [facility] Comment on above: Performed By: #### T SH, T7, LIPA, EMILY, CMP #### [facility] [address] [place] [address] Dr. Emely Adrian Calcium [Mass/Vol] 8.3 mg/dL Critically low 8.5-10.1 [facility] Comment on above: Performed By: #### T SH, T7, LIPA, EMILY, CMP #### [facility] [address] [address] [address] Emely Adrian Chloride [Moles/Vol] 108 mmol/L Critically high 98-107 [facility] Comment on above: Performed By: #### T SH, T7, LIPA, EMILY, CMP #### [facility] [address] [place] [address] Dr. Emely Adrian CO2 [Moles/Vol] 24.5 mmol/L Normal 21.0-32.0 [facility] Comment on above: Performed By: #### T SH, T7, LIPA, EMILY, CMP #### [facility] [address] [place] [address] Dr. Emely Adrian Creatinine [Mass/Vol] 0.97 mg/dL Normal 0.70-1.30 [facility] Comment on above: Performed By: #### T SH, T7, LIPA, EMILY, CMP #### [facility] [address] [place] [address] Dr. Eemly Adrian EGFR-AF ESTONIAN >60 Normal >=60 [facility] Comment on above: Performed By: #### T SH, T7, LIPA, EMILY, CMP #### [facility] [address] [place] [address] Dr. Emely Adrian EGFR-NON AF ESTONIAN >60 Normal >=60 [facility] Comment on above: Performed By: #### T SH, T7, LIPA, EMILY, CMP #### [facility] [address] [place] [address] Dr. Emely Adrian Globulin (S) [Mass/Vol] 3.8 g/dL Normal [facility] Comment on above: Performed By: #### T SH, T7, LIPA, EMILY, CMP #### [facility] [address] [place] [address] Dr. Emely Adrian Glucose [Mass/Vol] 97 mg/dL Normal 74-106 [facility] Comment on above: Performed By: #### T SH, T7, LIPA, EMILY, CMP #### [facility] [address] [place] [address] Dr. Emely Adrian Potassium [Moles/Vol] 4.6 mmol/L Normal 3.5-5.1 [facility] Comment on above: Performed By: #### T SH, T7, LIPA, EMILY, CMP #### [facility] [address] [place] [address] Dr. Emely Adrian Protein [Mass/Vol] 6.8 g/dL Normal 6.4-8.2 [facility] Comment on above: Performed By: #### T SH, T7, LIPA, EMILY, CMP #### [facility] [address] [place] [address] Dr. Emely Adrian Sodium [Moles/Vol] 140 mmol/L Normal 136-145 [facility] Comment on above: Performed By: #### T SH, T7, LIPA, EMILY, CMP #### [facility] [address] [place] [address] Dr. Emely Adrian Urea nitrogen [Mass/Vol] 20.0 mg/dL Critically high 7.0-18.0 [facility] Comment on above: Performed By: #### T SH, T7, LIPA, EMILY, CMP #### [facility] [address] [place] [address] Dr. Emely Adrian Urea nitrogen/Creatini ne [Mass ratio] 20.6 mg/mg Normal [facility] Comment on above: Performed By: #### T SH, T7, LIPA, EMILY, CMP #### [facility] [address] [place] [address] Dr. Emely Adrian TSHon 02-25-2022 TSH 1.247 uIU/mL Normal 0.358-3.740 [facility] Comment on above: Performed By: #### T SH, T7, LIPA, EMILY, CMP #### [facility] [address] [place] [address] Dr. Emely Adrian VITAMIN D 25 OHon 02-25-2022 VIT D 25-OH 23.9 ng/mL Normal [facility] Comment on above: Performed By: #### C BC #### [facility] [address] [address] [address] Emely Adrian VIT D RANGES SEE BELOW Normal [facility] Comment on above: Result Comment: <20 ng/mL Vit D deficient 20 - <30 ng/mL Vit D insufficient 30 - 100 ng/mL Vit D sufficient >100 ng/mL Potential Toxicity Performed By: #### C BC #### [facility] [address] [address] [address] Emely Adrian Follow-Upon 02-23-2022 Follow-Up [id number] Hanna Beckman 1955 M Date Provider Department Center 02/23/2022 [id number] WEEKS [facility] Family History Problem Relation Age of Onset Stroke Mother Family Status - Relation Status Age at Mother Level of Service:11891 [place] OFFICE/OUTPATIENT ESTABLISHED MOD MDM 30-39 MIN Normal [facility] CREATININEon 12-30-2021 Creatinine [Mass/Vol] 1.21 mg/dL Normal 0.70-1.30 [facility] Comment on above: Performed By: #### T SH, T7, LIPA, EMILY, CMP #### [facility] [address] [address] [address] Emely Adrian EGFR-AF ESTONIAN >60 Normal >=60 [facility] Comment on above: Performed By: #### T SH, T7, LIPA, EMILY, CMP #### [facility] [address] [address] [address] Emely Adrian EGFR-NON AF ESTONIAN =60 Normal >=60 [facility] Comment on above: Performed By: #### T SH, T7, LIPA, EMILY, CMP #### [facility] [address] [address] [address] CHEST WO W [...] by: KIRK CRUZ Date: 2021-12-30 08:46 Normal [facility] Office Visiton 12-24-2021 Follow-up visit [id number] Hanna Beckman 1955 M Date Provider Department Center 12/24/2021 ALEXI COURTNEY [facility] Family History Problem Relation Age of Onset Stroke Mother Family Status - Relation Status Age at Mother Level of Service:71619 [place] OFFICE/OUTPATIENT ESTABLISHED MOD MDM 30-39 MIN Reason for Visit and Comments: Atrial Fibrillation [80] Hypertension [707423] Coronary Artery Disease [187] NSVT [Other] - Patient here for follow up event monitor per Nai Vega CNP, Normal [facility] Abstracton 12-11-2021 Abstract [id number] Hanna Beckman 1955 M Date Provider Department Center 12/11/2021 HEBER SIDDIQUI [facility] Family History Problem Relation Age of Onset Stroke Mother Family Status - Relation Status Age at Mother Normal [facility] NM STRESS/REST MULTIon 11-09 NM STRESS/REST MULTI Patient: PABLO BECKMANMarlene Exam Date: 11/09/2021 : 1955 Gender:M Ordering : DR LV HEARD . Admission #: [id number] Family : Order #: [id number] CLICK HERE TO VIEW EXAM RADIOLOGY REPORT [...] M.D. on 11/09/2021 at 14:17 Normal [facility] CARDIAC PHILIP 3-6on 2 CK [Catalytic activity/Vol] 114 U/L Normal 39-308 [facility] Comment on above: Performed By: #### T SH, T7, LIPA, EMILY, CMP #### [facility] [address] [place], [place] [address] Dr. Emely Adrian CK.MB [Mass/Vol] 1.75 ng/mL Normal <=3.60 [facility] Comment on above: Performed By: #### T SH, T7, LIPA, EMILY, CMP #### [facility] [address] [address] [address] Emely Adrian HSTROP 10.8 pg/mL Normal 4.0-76.1 [facility] Comment on above: Result Comment: CUT- OFF POINTS HAVE BEEN ESTABLISHED BASED ON THE FOURTH UNIVERSAL DEFINITIONS OF MYOCARDIAL INFARCTION. THE UPPER REFERENCE LIMIT (URL) OF TROPONIN, DEFINED THE 99TH PERCENTILE OF cTnI DISTRIBUTION IN A REFERENCE POPULATION, HAS BEEN CONFIRMED THE DECISION THRESHOLD FOR MD DIAGNOSIS. Performed By: #### T SH, T7, LIPA, EMILY, CMP #### [facility] [address] [place] [address] Dr. Emely Adrian CK [Catalytic activity/Vol] 122 U/L Normal 39-308 [facility] Comment on above: Performed By: #### T SH, T7, LIPA, EMILY, CMP #### [facility] [address] [place] [address] Dr. Emely Adrian CK.MB [Mass/Vol] 2.59 ng/mL Normal <=3.60 [facility] Comment on above: Performed By: #### T SH, T7, LIPA, EMILY, CMP #### [facility] [address] [place] [address] Dr. Emely Adrian HSTROP 10.5 pg/mL Normal 4.0-76.1 [facility] Comment on above: Result Comment: CUT- OFF POINTS HAVE BEEN ESTABLISHED BASED ON THE FOURTH UNIVERSAL DEFINITIONS OF MYOCARDIAL INFARCTION. THE UPPER REFERENCE LIMIT (URL) OF TROPONIN, DEFINED THE 99TH PERCENTILE OF cTnI DISTRIBUTION IN A REFERENCE POPULATION, HAS BEEN CONFIRMED THE DECISION THRESHOLD FOR MD DIAGNOSIS. Performed By: #### T SH, T7, LIPA, EMILY, CMP #### [facility] [address] [place] [address] Dr. Emely Adrian CK [Catalytic activity/Vol] 130 U/L Normal 39-308 [facility] Comment on above: Performed By: #### C BC #### [facility] [address] [place] [address] Dr. Emely Adrian CK.MB [Mass/Vol] 2.10 ng/mL Normal <=3.60 [facility] Comment on above: Performed By: #### C BC #### [facility] [address] [place] [address] Dr. Emely Adrian HSTROP 10.2 pg/mL Normal 4.0-76.1 [facility] Comment on above: Result Comment: CUT- OFF POINTS HAVE BEEN ESTABLISHED BASED ON THE FOURTH UNIVERSAL DEFINITIONS OF MYOCARDIAL INFARCTION. THE UPPER REFERENCE LIMIT (URL) OF TROPONIN, DEFINED THE 99TH PERCENTILE OF cTnI DISTRIBUTION IN A REFERENCE POPULATION, HAS BEEN CONFIRMED THE DECISION THRESHOLD FOR MD DIAGNOSIS. Performed By: #### C BC #### [facility] [address] [place] [address] Dr. Emely Adrian CARDIAC PHILIP ADMITon 022 CK [Catalytic activity/Vol] 164 U/L Normal 39-308 [facility] Comment on above: Performed By: #### C BC #### [facility] [address] [place] [address] Dr. Emely Adrian CK.MB [Mass/Vol] 3.38 ng/mL Normal <=3.60 [facility] Comment on above: Performed By: #### C BC #### [facility] [address] [place] [address] Dr. Emeyl Adrian HSTROP 9.5 pg/mL Normal 4.0-76.1 [facility] Comment on above: Result Comment: CUT- OFF POINTS HAVE BEEN ESTABLISHED BASED ON THE FOURTH UNIVERSAL DEFINITIONS OF MYOCARDIAL INFARCTION. THE UPPER REFERENCE LIMIT (URL) OF TROPONIN, DEFINED THE 99TH PERCENTILE OF cTnI DISTRIBUTION IN A REFERENCE POPULATION, HAS BEEN CONFIRMED THE DECISION THRESHOLD FOR MD DIAGNOSIS. Performed By: #### C BC #### [facility] [facility] [address] [place] [address] Dr. Emely Adrian ADY 124 ng/mL Critically high 16-96 [facility] Comment on above: Performed By: #### C BC #### [facility] [address] [place] [address] Dr. Emely Adrian CBC AUTO DIFFon 10-27-2021 BASO # 0.0 103/ul Normal 0.0-0.1 [facility] Comment on above: Performed By: #### C BC #### [facility] [address] [place] [address] Dr. Emely Adrian Basophils/100 WBC (Bld) 0.1 % Critically low 0.2-2.0 [facility] Comment on above: Performed By: #### C BC #### [facility] [address] [address] [address] Emely Adrian EO # 0.3 103/ul Normal 0.0-0.7 [facility] Comment on above: Performed By: #### C BC #### [facility] [address] [address] [address] Emely Adrian Eosinophils/100 WBC (Bld) 3.2 % Normal 0.9-7.0 [facility] Comment on above: Performed By: #### C BC #### [facility] [address] [place] [address] Dr. Emely Adrian Erythrocyte distribution width (RBC) [Ratio] 13.6 % Normal 11.0-15.0 [facility] Comment on above: Performed By: #### C BC #### [facility] [address] [place] [address] Dr. Emely Adrian Hematocrit (Bld) [Volume fraction] 32.2 % Critically low 42.0-54.0 [facility] Comment on above: Performed By: #### C BC #### [facility] [address] [place] [address] Dr. Emely Adrian Hemoglobin (Bld) [Mass/Vol] 10.5 g/dL Critically low 14.0-18.0 [facility] Comment on above: Performed By: #### C BC #### [facility] [address] [place] [address] Dr. Emely Adrian IG # 0.05 10e3/ul Critically high 0.00-0.03 [facility] Comment on above: Performed By: #### C BC #### [facility] [address] [place] [address] Dr. Emely Adrian IG % 0.6 % Critically high 0.0-0.5 [facility] Comment on above: Performed By: #### C BC #### [facility] [address] [address] [address] Emely Adrian LYMPH # 1.7 103/ul Normal 1.2-3.8 [facility] Comment on above: Performed By: #### C BC #### [facility] [address] [place] [address] Dr. Emely Adrian Lymphocytes/100 WBC (Bld) 19.7 % Critically low 20.5-60.0 [facility] Comment on above: Performed By: #### C BC #### [facility] [address] [place] [address] Dr. Emely Adrian MANUAL DIFF REQ NO Normal [facility] Comment on above: Performed By: #### C BC #### [facility] [address] [place] [address] Dr. Emely Adrian MCH (RBC) [Entitic mass] 31.7 pg Normal 25.9-34.0 [facility] Comment on above: Performed By: #### C BC #### [facility] [address] [place] [address] Dr. Emely Adrian MCHC (RBC) [Mass/Vol] 32.6 g/dL Normal 29.9-35.2 [facility] Comment on above: Performed By: #### C BC #### [facility] [address] [place] [address] Dr. Emely Adrian MCV (RBC) [Entitic vol] 97.3 fL Critically high 80.0-94.0 [facility] Comment on above: Performed By: #### C BC #### [facility] [address] [place] [address] Dr. Emely Adrian MONO # 1.0 103/ul Critically high 0.3-0.8 [facility] Comment on above: Performed By: #### C BC #### [facility] [address] [place] [address] Dr. Emely Adrian Monocytes/100 WBC (Bld) 12.4 % Critically high 1.7-12.0 [facility] Comment on above: Performed By: #### C BC #### [facility] [address] [place] [address] Dr. Emely Adrian NEUT # 5.4 103/ul Normal 1.4-6.5 [facility] Comment on above: Performed By: #### C BC #### [facility] [address] [place] [address] Dr. Emely Adrian Neutrophils/100 WBC (Bld) 64.0 % Normal 43.0-75.0 [facility] Comment on above: Performed By: #### C BC #### [facility] [address] [place] [address] Dr. Emely Adrian Platelet mean volume (Bld) [Entitic vol] 9.2 fL Critically low 9.5-13.5 [facility] Comment on above: Performed By: #### C BC #### [facility] [address] [place] [address] Dr. Emely Adrian PLT 417 103/ul Normal 150-450 [facility] Comment on above: Performed By: #### C BC #### [facility] [address] [place] [address] Dr. Emely Adrian RBC 3.31 106/ul Critically low 4.70-6.10 [facility] Comment on above: Performed By: #### C BC #### [facility] [address] [place] [address] Dr. Emely Adrian WBC 8.4 103/ul Normal 4.0-11.0 [facility] Comment on above: Performed By: #### C BC #### [facility] [address] [place] [address] Dr. Emely Adrian CTA CHEST WO W [...] KIRK CRUZ Date: 2021-10-27 06:37 Normal [facility] Covid-19 PCR (CVDTB)on 10-09 SARS-CoV-2 (COVID-19) RNA ISIDRO+probe Ql (Unsp spec) Not detected Normal NOT DETECTED [facility] Comment on above: Result Comment: When diagnostic [...] for this test is supported by the [place] of Health and Human Service's declaration that [...] T BASIM, Royer, FELICIANO, EMILY, CMP #### [facility] [address] [place] [address] Dr. Emely Adrian D-DIMERon 10-27-2021 D-DIMER 2.19 mg/L FEU Critically high <=0.[address] [facility] Comment on above: Performed By: #### T SH, T7, LIPA, EMILY, CMP #### [facility] [address] [place], [place] [address] Dr. Emely Adrian D-DIMER COMMENTS SEE BELOW Normal [facility] Comment on above: Result Comment: Incr [...] T SH, T7, LIPA, EMILY, CMP #### [facility] [address] [place], [place] [address] Dr. Emely Adrian DIGOXINon 10-27-2021 DIG <0.2 Critically low 0.9-2.0 [facility] Comment on above: Performed By: #### T SH, T7, LIPA, EMILY, CMP #### [facility] [address] [place], [place] [address] Dr. Emely Adrian ECHOCARDIO M/2D COMPLETEon 0 10-27-2021 ECHOCARDIO M/2D COMPLETE Patient: PBALO BECKMAN Exam Date: 10/27/2021 : 1955 Gender:M Ordering : DR LV HEARD . Admission #: [id number] Family : Order #: [id number] CLICK HERE TO VIEW EXAM ECHOCARDIOGRAM REPORT [...] M.D. on 10/27/2021 at 17:01 Normal [facility] LACTATE/LACTIC ACIDon 2021 Lactate [Moles/Vol] 0.5 mmol/L Normal 0.4-1.9 [facility] Comment on above: Performed By: #### T SH, T7, LIPA, EMILY, CMP #### [facility] [address] [place] [address] Dr. Emely Adrian Lactate [Moles/Vol] 0.5 mmol/L Normal 0.4-1.9 [facility] Comment on above: Performed By: #### C BC #### [facility] [address] [address] [address] Emely Adrian PROF CHEM 8 (BAS METB)on Anion gap [Moles/Vol] 15.3 mmol/L Normal [facility] Comment on above: Performed By: #### C BC #### [facility] [address] [place] [address] Dr. Emely Adrian Calcium [Mass/Vol] 9.1 mg/dL Normal 8.5-10.1 [facility] Comment on above: Performed By: #### C BC #### [facility] [address] [place], [place] [id number] Dr. Emely Adrian Chloride [Moles/Vol] 105 mmol/L Normal 98-107 [facility] Comment on above: Performed By: #### C BC #### [facility] [address] [place] [address] Dr. Emely Adrian CO2 [Moles/Vol] 26.6 mmol/L Normal 21.0-32.0 [facility] Comment on above: Performed By: #### C BC #### [facility] [address] [place] [address] Dr. Emely Adrian Creatinine [Mass/Vol] 1.29 mg/dL Normal 0.70-1.30 [facility] Comment on above: Performed By: #### C BC #### [facility] [address] [place] [address] Dr. Emely Adrian EGFR-AF ESTONIAN >60 Normal >=60 [facility] Comment on above: Performed By: #### C BC #### [facility] [address] [place] [address] Dr. Emely Adrian EGFR-NON AF ESTONIAN 56 mL/min/1.73m2 Critically low >=60 [facility] Comment on above: Performed By: #### C BC #### [facility] [address] [place] [address] Dr. Emely Adrian Glucose [Mass/Vol] 100 mg/dL Normal 74-106 [facility] Comment on above: Performed By: #### C BC #### [facility] [address] [place] [address] Dr. Emely Adrian Potassium [Moles/Vol] 3.9 mmol/L Normal 3.5-5.1 [facility] Comment on above: Performed By: #### C BC #### [facility] [address] [place] [address] Dr. Emely Adrian Sodium [Moles/Vol] 143 mmol/L Normal 136-145 [facility] Comment on above: Performed By: #### C BC #### [facility] [address] [place] [address] Dr. Emely Adrian Urea nitrogen [Mass/Vol] 28.0 mg/dL Critically high 7.0-18.0 [facility] Comment on above: Performed By: #### C BC #### [facility] [address] [place], [place] [address] Dr. Emely Adrian Urea nitrogen/Creatini ne [Mass ratio] 21.7 mg/mg Normal [facility] Comment on above: Performed By: #### C BC #### [facility] [address] [place], [place] [address] Dr. Emely Adrian XR CHEST 1 Von [...] KARLY BASS Date: 2021-10-27 04:41 Normal [facility] Cardiovascular Lab Reporton 04-09-2021 Cardiovascular Lab Report [facility] Patient Name: [facility]k [facility] MR #: [id number] Physician: Mamta Stephenson, Department of [employer] TE[employer]ER Medicine Service Date: 04/07/2021 Division of Birthdate: 1955 Cardiology Room #: Adult Cardiovascular Services [place] [address] Cardiovascular Laboratory Report DATE OF PROCEDURE; 04/07/2021 [...] Weeks MD Date Trans: 04/09/2021 11:17 A/ [id number] Normal [facility] Encounters Encounter Date Encounter Type Care Provider Facility Start: 05-23-2023 Telephone encounter G Isidoro Gonzáles MD Work Phone: Radiation Oncology Comment on above: Future Appointment Start: 08-09-2022 End: 08-09-2022 [facility] Start: 06-23-2022 End: 06-23-2022 ambulatory Quinton Gonzáles MD Work Phone: Radiation Oncology Comment on above: Malignant neoplasm o f prostate (HCC) (Primary Dx) Start: 06-23-2022 End: 06-23-2022 Telemedicine consultation with patient Quinton Isidoro Gonzáles MD Work Phone: [place] Start: 06-23-2022 End: 06-24-2022 ambulatory LV HEARD Facility:[facility] Start: 06-22-2022 Telephone encounter Quinton Isidoro Gonzáles MD Work Phone: Radiation Oncology Comment on above: Patient Question Start: 06-02-2022 End: 06-03-[address] JT GONZÁLES Facility:[facility] Start: 05-17-2022 End: 05-17-2022 ambulatory [facility] Start: 03-29-2022 End: 03-30-2022 ambulatory Patricio BEAUCHAMP Facility:[facility] Start: 03-29-2022 End: 03-29-2022 Patient encounter procedure Patricio BEAUCHAMP General Surgery [facility] [place] Start: 03-19-2022 Encounter for preprocedural laboratory examination DR PATRICIO BEAUCHAMP . [facility] Start: 03-18-2022 End: 03-19-2022 ambulatory Patricio BEAUCHAMP Facility:CD:[id number] Start: 03-14-2022 End: 03-15-[address] PATRICIO BEAUCHAMP . Facility:[facility] Start: 03-14-2022 End: 03-15-2022 Encounter for preprocedural laboratory examination DR PATRICIO BEAUCHAMP . Facility:[facility] Start: 03-09-2022 End: 03-09-[address] ISIDRO WOOTEN Facility:[facility] Start: 03-08-2022 End: 03-09-2022 ambulatory Patricio BEAUCHAMP Facility:[facility] Start: 02-25-2022 End: 02-26-[address] LV HEARD . Facility:[facility] Start: 02-23-2022 End: 02-23-2022 ambulatory [facility] Start: 12-30-2021 End: 12-31-[address] LV HEARD . Facility: Start: 12-24-2021 End: 12-24-2021 ambulatory [facility] Start: 11-09-2021 End: 11-10-[address] LV HEARD . Facility:[facility] Start: 10-27-2021 End: 10-27-[address] LV HEARD . Facility:[facility] Start: 04-07-2021 End: 04-08-2021 ambulatory MAMTA STEPHENSON Facility:[facility] Procedures Date Procedure Procedure Detail Performing Clinician Start: 06-02-2022 End: 06-02-2022 PSA screening [facility] Provider Comment on above: Performed By: #### TSH, T7, EMILY WIGGINS C MP #### [facility] [address] [place] [address] Dr. Emely Adrian Start: 03-18-2022 Colonoscopy Patricio Airseed Start: 03-18-2022 Esophagogastroduodenoscopy Patricio Airseed Start: 10-17-2018 Colonoscopy Patricio NILFunidelia Start: 09-11-2009 Colonoscopy Patricio NILL Amputation of finger, except thumb Patricio EmbarkeL Arthroscopy of shoulder Meng aecandace JUANL Implantation of radi oactive seed into prostate Patricio EmbarkeL Open reduction of fr acture with internal fixation Patricio EmbarkeL Comment on above: right leg Umbilical herniorrha phy using surgical sutures Patricio Airseed Plan of Treatment Date Care Activity Detail Author Start: 06-02-2027 PROSTATE CANCER SCREENING DISCUSSION PROSTATE CANCER SCREENING DISCUSSION [facility] Start: 06-02-2027 Prostate specific antigen measurement Prostate Cancer Screening Discussion [facility] Start: 05-23-2023 End: 08-22-2023 Prostate specific Ag [Mass/volume] in Serum or Plasma PSA/PROSTSPECAG DIAG Lab Routine Malignant neoplasm of prostate (HCC) Expected: 05/23/2023, Expires: 08/22/2023 [facility] Work Phone: Comment on above: Expected: 05/23/2023 , Expires: 08/22/2023 Start: 04-10-2023 Advance Directive Discussion Advance Directive Discussion [facility] Start: 04-10-2023 Depression Assessment Depression Ass essment [facility] Start: 01-18-2023 Pneumococcal Vaccine : 65+ (2 of 2 - PPSV23 or PCV20) Pneumococcal Vaccine: 65+ (2 of 2 - PPSV23 or PCV20) [facility] Start: 12-09-2022 Covid-19 Vaccine ( season) Covid-19 Vaccine ( season) [facility] Start: 12-09-2022 Influenza vaccination Influenza Vacc ine (#1) [facility] Start: 04-10-2022 ADVANCE DIRECTIVE DISCUSSION ADVANCE DIRECTIVE DISCUSSION [facility] Start: 04-10-2022 DEPRESSION ASSESSMENT DEPRESSION ASS ESSMENT [facility] Start: 12-09-2021 Influenza vaccination INFLUENZA (#1) [facility] Start: 2021 PNEUMOCOCCAL: 65+ (1 - PCV) PNEUMOCOCCAL: 65+ (1 - PCV) [facility] Start: 09-24-2020 COVID-19 VACCINE (3 - Booster for Pfizer series) COVID-19 VACCINE (3 - Booster for Pfizer series) [facility] Start: 2016 RSV Vaccine (1 - 1-d ose 60+ series) RSV Vaccine (1 - 1-dose 60+ series) [facility] Start: 2006 SHINGRIX VACCINE (1 of 2) SHINGRIX VACCINE (1 of 2) [facility] Start: 2001 COLOGUARD (FIT-DNA) COLOGUARD (FIT-D NA) [facility] Start: 2001 Colonoscopy COLONOSCOPY [facility] Start: 2001 COLORECTAL CANCER SCREENING COLORECTAL CANCER SCREENING [facility] Start: [address] COLONOGRAPHY [facility] Start: 2001 DIABETES SCREEN DIABETES SCREEN [facility] Start: 2001 Diabetes Screening Diabetes Screenin g [facility] Start: 2001 FECAL OCCULT BLOOD FECAL OCCULT BLOO D [facility] Start: 2001 Screening for malign ant neoplasm of colon [facility] Start: 2001 SIGMOIDOSCOPY SIGMOIDOSCOPY [facility] Start: 10-21-1991 Lipid panel Lipid Screening [facility] Start: 10-21-1991 LIPID SCREEN LIPID SCREEN [facility] Start: 10-21-1975 Urine microalbumin profile [facility] Start: 1974 HEPATITIS C SCREENING HEPATITIS C [facility] Start: 1974 Hepatitis C screening Hepatitis C [facility] Start: 1974 HIV SCREENING HIV SCREENING [facility] Start: 1955 ABDOMINAL AORTIC ANEURYSM SCREENING ABDOMINAL AORTIC ANEURYSM SCREENING [facility] Start: 1955 Abdominal aortic aneurysm screening Abdominal Aortic Aneurysm Screening [facility] Immunizations Immunization Date Immunization Notes Care Provider Fa cility NEGATED: Highlighted row has not occurred!03-08-2022 influenza virus vaccine, unspecified formulation Patricio BEAUCHAMP General [facility] [place] Payers Date Payer Category Payer Private Health Insurance [facility] CHO[employer] PL[employer] [id number] 2022-Present [phone] [address] [place] [address] HMO [id number] 2006 Unknown [facility] [id number] 2006-Present [phone] [place] [address] WC [id number] 1959 Unknown [id number] 1959 Unknown [id number] 1955 Unknown [id number] .2.647 1955 Unknown [id number] [id number] .2.727 1955 Unknown [id number] [id number] .2.727 1955 Unknown [id number] [id number] .2.727 1955 Unknown [id number] [id number] .2.593 1955 Unknown [id number] [id number] .2.593 1955 Unknown [id number] [id number] .2.593 1955 Unknown [id number] [id number] .2.593 1955 Unknown [id number] [id number] .2.593 1955 Unknown [id number] 2.16.840.1.148348.3.579 .2.593 1955 Unknown [id number] [id number] .2.593 1955 Unknown [id number] [id number] .2.593 Social History Date Type Detail Facility Start: 06-24-2020 End: 03-08-2022 Tobacco smoking status Ex-smoker (finding) [facility] [place] Tobacco smoking status Never [facility] [place] Start: 06-24-2020 End: 06-23-2022 Sex Assigned At Male Eduin Emma Roman [facility] End: 06-10-1989 History of tobacco use Current smoker [facility] End: 06-10-1989 History of tobacco use Cigarette Smoker [facility] Start: 06-24-2020 End: 06-23-2022 Cigarettes smoked current (pack per day) - Reported 1.5 [facility] Start: 06-24-2020 Tobacco use and exposure Smokeless tobacco non-user [facility] Start: 06-24-2020 [facility] Start: 1955 Sex Assigned At Not on file C [facility] Clinical Notes 12-24-2021 to 05-23-2023 Telephone Encounter [...] pended order and we will fax to [facility]. oJsefina Anderson RN documented in this encounter [facility] 08-09-2022 Note [facility] Consult Note Reason [...] he cuts himself at work. 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 He denies any changes since last seen [...] no difficulty hearing, (more content not included)... [facility] 06-23-2022 Note HNO ID: [id number] Author: Quinton Gonzáles MD Service: ? Author [...] Quinton Gonzáles MD documented in this encounter [facility] 06-23-2022 Miscellaneous Notes Appointment has been changed in Epic. Kwaku Rasmussen Per Dr Gonzáles, mark to switch to phone visit. Patient was notified. PSS- please change in epic. Josefina Anderson RN Pablo called wondering if his follow up appointment can be switched to a phone visit tomorrow. Please advise. Hermilo Logan LPN documented in this encounter [facility] 05-17-2022 Note Cardiovascular Medic [facility] SUBJECTIVE Chief Complaint Patient presents with Hyperlipidemia Hypertension Atrial Fibrillation Coronary Artery Disease Pablo Beckman is a 66 y.o. male here for follow-up. HPI Pablo eBckman is a 66 y.o. male with a [...] he cuts himself at work. 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 He denies any changes since last seen [...] 4. Mild tricu (more content not included)... [facility] 05-17-2022 Note Patient here to disc uss possible Watchman device per Dr. Weeks. He is currently taking Eliquis once daily due to easy bleeding. Has not been taking furosemide because he has not had LE edema. Feels good. Denies chest pain and SOB. Review of Systems All other systems reviewed and are negative. [facility] 03-18-2022 Note OPERATIVE NOTE OPERATION DATE: [...] good condition. CC: Lv Heard M.D. [facility] 03-08-2022 Note Chief Complaint consultation for anemia, [...] QID, # 120 tab(s), Refills(s) 3, Pharmacy: [facility] #[id number], 177.8, cm, 03/08/22 15:41:00 EST, Height/Length Dosing, 91, kg, 03/08/22 15:41:00 EST, Weight Dosing 2. Melena (K92.1: Melena) see # 1; discontinue Diclofenac; begin PPI, also Carafate QID; call sooner if problems/questions. Ordered: sucralfate, 1 gm = 1 tab(s), Oral, QID, # 120 tab(s), Refills(s) 3, Pharmacy: [facility] #[id number], 177.8, cm, 03/08/22 15:41:00 EST, Height/Length Dosing, 91, kg, 03/08/22 15:41:00 EST, Weight Dosing 3. Change in bowel habits (R19.4: Change in bowel habit) see # 1 4. Helicobacter pylori ab+ (R76.8: Other specified abnormal immunological findings in serum) see # 2 Ordered: sucralfate, 1 gm = 1 tab(s), Oral, QID, # 120 tab(s), Refills(s) 3, Pharmacy: [facility] #[id number], 177.8, cm, 03/08/22 15:41:00 EST, Height/Length Dosing, 91, kg, 03/08/22 15:41:00 EST, Weight Dosing 5. Dyspepsia (R10.13: Epigastric pain) see # 1 Ordered: sucralfate, 1 gm = 1 tab(s), Oral, QID, # 120 tab(s), Refills(s) 3, Pharmacy: [facility] #[id number], 177.8, cm, 03/08/22 15:41:00 EST, Height/Length Dosing, 91, kg, 03/08/22 15:41:00 EST, Weight Dosing 6. Iron deficiency anemia (D50.9: Iron deficiency anemia, unspecified) see # 1 Ordered: sucralfate, 1 gm = 1 tab(s), Oral, QID, # 120 tab(s), Refills(s) 3, Pharmacy: [facility] #[id number], 177.8, cm, 03/08/22 15:41:00 EST, Height/Length Dosing, 91, kg, 03/08/22 15:41:00 (more content not included)... [facility] Comment on above: Result Comment: Elec tronically Signed By: CAMILLE RCAMER, Patricio Denise\Date and Time Signed: 03/08/22 17:15 [...] recent stress. Re (more content not included)... [facility] 12-24-2021 Note Cardiology Follow Up Progress [...] fibrillation -Essential hyper (more content not included)... [facility] Evaluation + Plan note No data available for this section [facility] [place] Evaluation note Diagnosis Malignant neoplasm of prostate (HCC)- Primary Malignant neoplasm of [facility] Malignant neoplasm of prostate (HCC)- Primary Malignant neoplasm of prostate documented in this encounter [facility] Discharge instructions No data available for this section [facility] [place] Progress note No data available for this section [facility] [place] Summary Purpose Family History No Family History [...] and content) DATE CREATED AUTHOR 04/15/2021 [facility] DATE CREATED AUTHOR AUTHOR'S ORGANIZ ATION 04/07/[address] [facility] DATE CREATED AUTHOR AUTHOR'S ORGANIZ ATION 08/08/2022 [facility] DATE CREATED AUTHOR AUTHOR'S ORGANIZ ATION 08/10/[address] [facility] DATE CREATED AUTHOR AUTHOR'S ORGANCORNELIUS ATION 05/24/2023 [facility] Patient Care team informatio n (unrecognized section and content) [employer]itter Relationship Specialty Start Date End Date Lv Heard MD PCP - General 02/24/09 [employer]itter Relationship Specialty Start Date End Date Lv Heard MD PCP - General 02/24/09 Source Comments (unrecognize d section and content) In the event this informatio n is protected by the Federal Confidentiality of Alcohol and Drug Abuse Patient Records regulations: The Federal rules restrict any use of the information to criminally investigate or prosecute any alcohol or drug abuse patient.[facility] the event this information is protected by the Federal Confidentiality of Alcohol and Drug Abuse Patient Records regulations: The Federal rules restrict any use of the information to criminally investigate or prosecute any alcohol or drug abuse patient.[facility] the event this information is protected by the Federal Confidentiality of Alcohol and Drug Abuse Patient Records regulations: The Federal rules restrict any use of the information to criminally investigate or prosecute any alcohol or drug abuse patient.[facility] Reason for Visit (unrecogniz ed section and content) Reason Comments Patient Question Reason Comments Established Patient Specialty Diagnoses / Procedures Referred By Contac t Referred To Contact Radiation Oncology / RADIATION ONCOLOGY Diagnoses Follow-up examination 1 yr follow up, psa at [place] Procedures OFFICE/OUTPATIENT ESTABLISHED MOD MDM 30-39 MIN EST PATIENT Quinton Gonzáles MD [address] [place] [address] [place] [id number] Quinton Gonzáles MD [address] [place] [address] [place] [address] Referral ID Status Reason Start Date Expiration Date Visits Re quested Visits Authorized [id number] Open 06/23/2022 09/21/2022 1 0 Reason Comments [...] BE BASED ON THE PRIMARY CLINICAL RECORDS. [facility]. provides no warranty or guarantee of the accuracy or completeness of information in this document.
[2023-06-13 12:38] LABS: Basophils Percent Auto 0.2 % (0.2-2.0); Eosinophils Absolute Auto 0.2 10^3/uL (0.0-0.7); Eosinophils Percent Auto 2.9 % (0.9-7.0); Hematocrit 30.7 % (42.0-54.0); Immature Granulocytes Abs Auto 0.02 10^3/uL (0.00-0.03); Immature Granulocytes Pct Auto 0.4 % (0.0-0.5); Lymphocytes Absolute Auto 1.2 10^3/uL (1.2-3.8); Lymphocytes Percent Auto 22.6 % (20.5-60.0); Mean Corpuscular HGB Conc 32.6 g/dL (29.9-35.2); Mean Corpuscular Hemoglobin 32.6 pg (25.9-34.0); Mean Platelet Volume 8.8 fL (9.5-13.5); Monocytes Absolute Auto 0.9 10^3/uL (0.3-0.8); Monocytes Percent Auto 17.8 % (1.7-12.0); Neutrophils Absolute Auto 2.9 10^3/uL (1.4-6.5); Neutrophils Percent Auto 56.1 % (43.0-75.0); Platelet Count 300 10^3/uL (150-450); Red Blood Count 3.07 10^6/uL (4.70-6.10); Red Cell Distribution Width 13.8 % (11.0-15.0); White Blood Count 5.2 10^3/uL (4.0-11.0)
[2023-06-13 13:02] LABS: INR 1.13; Partial Thromboplastin Time 34.8 sec (22.3-36.2); Prothrombin Time 11.9 sec (9.0-11.6)
== END 2023-06-13 12:13 | disposition home or self-care (01) ==
LOC: LAB 12:13
PROVIDERS: PCP Family Medicine; Visit Provider Family Medicine
DX: C61 Malignant neoplasm of prostate (principal); K92.1 Melena; D64.9 Anemia, unspecified
CPT/HCPCS: 36415; 82728; 83540; 84153; 85025; 85610; 85730

== ENCOUNTER 2023-07-12 11:29 | Outpatient (OUT) | payer OTHER, SELFPAY ==
--- OUTSIDE RECORDS SUMMARY | 2023-07-12 11:51 | XMS_ITS | CCD ---
Author Organization [employer] Care Team Providers Care [employer] Custodian Name Role Phone MAMTA STEPHENSON Attending Unavailable SELF, REFERRED Primary Care Unavailable SELF, REFERRED Referring Unavailable MAMTA STEPHENSON Admitting Unavailable Lv Heard Primary Care Physician Lv Heard MD Primary Care Provider [phone] NILL ., DR CURRY Admitting Unavailable NILL [...] Goins Consulting Unavailable ELVIN KEEN Consulting Unavailable TU Rosario, BERENICE Consulting Unavailable KARLY BASS Consulting Unavailable SUGAR, DR ISIDRO Alcantara Admitting Unavailabl e SUGAR, DR ISIDRO Alcantara Attending Unavailabl e SUGAR, DR ISIDRO Alcantara Consulting Unavailabl e HOY ., DR AWAN Primary Care Unavailable PATRICIO [...] GONZÁLES Referring Unavailable Quinton GONZÁLES Attending Unavailable Medications Current Medications Medication Drug Class(es) Dates [...] QID, # 120 tab(s), Refills(s) 3, Pharmacy: [id number], 177.8, cm, 03/08/22 15:41:00 EST, Height/Length Dosing, 91, kg, 03/08/22 15:41:00 EST, Weight Dosing Start Date: 03/08/22 Status: Ordered Completed/Discontinued Medications Medication Drug Class(es) Dates Sig (Normalized) Sig (Original) Acetaminophen (4 sources) ACETAMINOPHEN (TYLENOL EXTRA STRENGTH ORAL) Take by mouth. 0 Active Comment on above: Take by mouth. celecoxib 200 mg oral capsule (4 sources) Nonsteroidal Anti-inflammatory Drug Start: 06-19-2018 celecoxib (CELEBREX) 200 mg capsule twice daily. 0 06/19/2018 Active Comment on above: twice daily. ibuprofen 200 mg oral tablet (4 sources) Nonsteroidal Anti-inflammatory Drug take 1 tablet by mouth every six hours as needed ibuprofen (MOTRIN) 200 mg tablet Take 200 mg by mouth every 6 hours as needed. 0 Active Comment on above: Take 200 mg by mouth every 6 hours as needed. Multivitamin capsule (4 sources) take 1 capsule by mouth once daily Multivitamin capsule Take 1 capsule by mouth once daily. 0 Active Comment on above: Take 1 capsule by mo uth once daily. tamsulosin hydrochloride 0.4 mg oral capsule (4 sources) alpha-Adrenergic Mandeep Start: 06-27-2018 take 1 capsule by mouth once daily at bedtime tamsulosin ER (FLOMAX) 0.4 mg cap Take 1 capsule by mouth daily at bedtime. 30 capsule 11 06/27/2018 Active Comment on above: Take 1 capsule by mo uth daily at bedtime. TURMERIC, BULK, MISC (4 sources) TURMERIC, BULK, MISC valACYclovir 1000 mg oral tablet (4 sources) Herpesvirus Nucleoside Analog DNA Polymerase Inhibitor, [...] Onset: 12-30-2021 03-04-2022 Chronic Cancer of prostate (4 sources) Malignant tumor of prostate; Translations: [Malignant [...] Documented Da te Episodic/Chronic Cancer of prostate (10 sources) History of malignant neoplasm of prostate; [...] chest pain] Onset: 10-29-2021 Episodic Other aftercare (4 sources) Radiotherapy follow-up; Translations: [Encounter for follow-up examination after completed treatment for conditions other than malignant neoplasm] Onset: 06-10-2014 06-10-2014 Episodic Other aftercare (1 source) 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; Translations: [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 CURRNT USE ANTICOAGULANTS] Onset: 03-24-2022 Episodic Other aftercare (1 source) custodial (current) use of aspirin; Translations: [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 MEMBER CURRENT USE OF ASPIRIN] Onset: 03-24-2022 Episodic Other aftercare (1 source) Other senior living (current) drug therapy; Translations: [OTH 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 MEMBER CURRENT DRUG THERAPY] Onset: 03-24-2022 Episodic Other [...] Test Name Value Interpretation Reference Range Facility [facility] 06-21-2023 [facility] Telephone (SUDHAKARA) PABLO BECKMAN ([id number]) 1955 M Date Time Provider Department 06/21/23 Quinton GONZÁLES During your visit today, we recorded the following information about you: Latisha Rojas LPN 06/21/2023 2:46 PM Rissa Hein called to reschedule Mr. Beckman follow up and the call was transferred to nursing to review most recent PSA results. 06/13/23 PSA <0.13 previous 2/23/23 PSA 0.52. Patient is wondering if he needs to have a visit with Dr. Gonzáles this year or can it be rescheduled for one year since PSA results are good. Please advise. TOOTIE Hall Melvina 06/22/2023 7:10 AM Signed Appts are scheduled thank you. Allergies As of Date: 06/21/2023 (No Known Allergies) Date Reviewed: 06/24/2020 Reviewed by: Kamari July - Fully Assessed Reason for Visit: Results [95] Appointment [186] Primary Visit Diagnosis:Malignant neoplasm of prostate (HCC) [C61] Order(s):PSA/PROSTSPECAG DIAG [SQPSA] Order #: [id number] FUTURE Prescriptions as of 06/22/2023 - valACYclovir (VALTREX) 1 gram tab - [...] BULK, MISC Problem List As Of Date 06/21/2023 Noted Resolved Personal history of prostate cancer [Z85.46] 10/31/2013 Radiotherapy follow-up [Z09] 06/10/2014 Encounter Status:Closed by Quinton GONZÁLES on 06/21/23 Normal [facility] Lab Reportson 06-15-2023 Lab Reports [id number] [facility] Physician Referralon 024 Physician Referral [id number] [facility] CNPNon 05-23-2023 CNPN Telephone (RADTSA) PABLO BECKMAN ([id number]) 1955 M Date Time Provider Department 05/23/23 Quinton GONZÁLES During your visit today, we recorded the following information about you: Josefina Anderson, RN 05/23/2023 9:44 AM Signed PT called in to schedule follow up for this year. He will also need PSA. Please sign pended order and we will fax to [facility]. Josefina Anderson RN Allergies As of Date: 05/23/2023 (No Known Allergies) Date Reviewed: 06/24/2020 Reviewed by: Kamari July - Fully Assessed Reason for Visit: Future Appointment [256] Primary Visit Diagnosis:Malignant neoplasm of prostate (HCC) [C61] Order(s):PSA/PROSTSPECAG DIAG [SQPSA] Order #: [id number] FUTURE Prescriptions as of 05/23/2023 - valACYclovir [...] Status:Closed by Quinton GONZÁLES on 05/23/23 Normal [facility] Office Visiton 08-09-2022 Follow-up visit [id number] Hanna Beckman 1955 M Date Provider Department Center 08/09/2022 [id number] PONCE Family History Problem Relation Age of Onset Stroke Mother Family Status - Relation Status Age at Mother Level of Service:32781 [place] OFFICE/OUTPATIENT NEW HIGH MDM 60-74 MINUTES Normal [facility] 36on 05-20-2022 37 Approving, but needs appt for additional refills. Normal [facility] Office Visiton 05-17-2022 Follow-up visit [id number] Hanna Beckman Madelaine 1955 M Date Provider Department Center 05/17/2022 MAMTA EGAN CARD [facility] Family History Problem Relation Age of Onset Stroke Mother Family Status - Relation Status Age at Mother Level of Service:02006 ND OFFICE/OUTPATIENT ESTABLISHED LOW MDM 20-29 MIN Reason for Visit and Comments: Hyperlipidemia [182] Hypertension [831935] Atrial Fibrillation [80] Coronary Artery Disease [187] Normal [facility] Covid-19 PCR (CVDTB)on SARS-CoV-2 (COVID-19) RNA ISIDRO+probe [...] for this test is supported by the [place] of Health and Human Service's (HHS's) declaration [...] EMILY, CMP #### [facility] [address] [place] [address] Dr. Emely Adrian CBC AUTO DIFFon 03-09-2022 BASO # 0.0 103/ul Normal 0.0-0.1 [facility] Comment on above: Performed By: #### T SH, T7, LIPA, EMILY, CMP #### [facility] [address] [place] [address] Dr. Emely Adrian Basophils/100 WBC (Bld) 0.1 % Critically low 0.2-2.0 [facility] Comment on above: Performed By: #### T SH, T7, LIPA, EMILY, CMP #### [facility] [address] [place] [address] Dr. Emely Adrian EO # 0.2 103/ul Normal 0.0-0.7 [facility] Comment on above: Performed By: #### T SH, T7, LIPA, EMILY, CMP #### [facility] [address] [place] [address] Dr. Emely Adrian Eosinophils/100 WBC (Bld) 3.2 % Normal 0.9-7.0 [facility] Comment on above: Performed By: #### T SH, T7, LIPA, EMILY, CMP #### [facility] [address] [place] [address] Dr. Emely Adrian Erythrocyte distribution width (RBC) [Ratio] 15.8 % Critically high 11.0-15.0 [facility] Comment on above: Performed By: #### T SH, T7, LIPA, EMILY, CMP #### [facility] [address] [place] [address] Dr. Emely Adrian Hematocrit (Bld) [Volume fraction] 26.6 % Critically low 42.0-54.0 [facility] Comment on above: Performed By: #### T SH, T7, LIPA, EMILY, CMP #### [facility] [address] [place] [address] Dr. Emely Adrian Hemoglobin (Bld) [Mass/Vol] 9.0 g/dL Critically low 14.0-18.0 [facility] Comment on above: Performed By: #### T SH, T7, LIPA, EMILY, CMP #### [facility] [address] [place] [address] Dr. Emely Adrian IG # 0.05 10e3/ul Critically high 0.00-0.03 [facility] Comment on above: Performed By: #### T SH, T7, LIPA, EMILY, CMP #### [facility] [address] [place] [address] Dr. Emely Adrian IG % 0.7 % Critically high 0.0-0.5 [facility] Comment on above: Performed By: #### T SH, T7, LIPA, EMILY, CMP #### [facility] [address] [place] [address] Dr. Emely Adrian LYMPH # 1.8 103/ul Normal 1.2-3.8 [facility] Comment on above: Performed By: #### T SH, T7, LIPA, EMILY, CMP #### [facility] [address] [place] [address] Dr. Emely Adrian Lymphocytes/100 WBC (Bld) 24.2 % Normal 20.5-60.0 [facility] Comment on above: Performed By: #### T SH, T7, LIPA, EMILY, CMP #### [facility] [address] [place] [address] Dr. Emely Adrian MANUAL DIFF REQ NO Normal [facility] Comment on above: Performed By: #### T SH, T7, LIPA, EMILY, CMP #### [facility] [address] [place] [address] Dr. Emely Adrian MCH (RBC) [Entitic mass] 32.7 pg Normal 25.9-34.0 [facility] Comment on above: Performed By: #### T SH, T7, LIPA, EMILY, CMP #### [facility] [address] [place] [address] Dr. Emely Adrian MCHC (RBC) [Mass/Vol] 33.8 g/dL Normal 29.9-35.2 [facility] Comment on above: Performed By: #### T SH, T7, LIPA, EMILY, CMP #### [facility] [address] [place] [address] Dr. Emely Adrian MCV (RBC) [Entitic vol] 96.7 fL Critically high 80.0-94.0 [facility] Comment on above: Performed By: #### T SH, T7, LIPA, EMILY, CMP #### [facility] [address] [place] [address] Dr. Emely Adrian MONO # 1.3 103/ul Critically high 0.3-0.8 [facility] Comment on above: Performed By: #### T SH, T7, LIPA, EMILY, CMP #### [facility] [address] [place] [address] Dr. Emely Adrian Monocytes/100 WBC (Bld) 18.0 % Critically high 1.7-12.0 [facility] Comment on above: Performed By: #### T SH, T7, LIPA, EMILY, CMP #### [facility] [address] [place] [address] Dr. Emely Adrian NEUT # 4.0 103/ul Normal 1.4-6.5 [facility] Comment on above: Performed By: #### T SH, T7, LIPA, EMILY, CMP #### [facility] [address] [place] [address] Dr. Emely Adrian Neutrophils/100 WBC (Bld) 53.8 % Normal 43.0-75.0 [facility] Comment on above: Performed By: #### T SH, T7, LIPA, EMILY, CMP #### [facility] [address] [place] [address] Dr. Emely Adrian Platelet mean volume (Bld) [Entitic vol] 8.7 fL Critically low 9.5-13.5 [facility] Comment on above: Performed By: #### T SH, T7, LIPA, EMILY, CMP #### [facility] [address] [place] [address] Dr. Emely Adrian PLT 320 103/ul Normal 150-450 [facility] Comment on above: Performed By: #### T SH, T7, LIPA, EMILY, CMP #### [facility] [address] [place] [address] Dr. Emely Adrian RBC 2.75 106/ul Critically low 4.70-6.10 [facility] Comment on above: Performed By: #### T SH, T7, LIPA, EMILY, CMP #### [facility] [address] [place] [address] Dr. Emely Adrian WBC 7.5 103/ul Normal 4.0-11.0 [facility] Comment on above: Performed By: #### T SH, T7, LIPA, EMILY, CMP #### [facility] [address] [place] [address] Dr. Emely Adrian LACTATE/LACTIC ACIDon 2021 Lactate [Moles/Vol] 0.7 mmol/L Normal 0.4-1.9 [facility] Comment on above: Performed By: #### T SH, T7, LIPA, EMILY, CMP #### [facility] [address] [place] [address] Dr. Emely Adrian LIPASEon 03-09-2022 Lipase [Catalytic activity/Vol] 386.0 U/L Normal 73.0-393.0 [facility] Comment on above: Performed By: #### C BC #### [facility] [address] [place] [address] Dr. Emely Adrian PROF 14(COMP METB)on 022 Albumin [Mass/Vol] 2.9 g/dL Critically low 3.4-5.0 [facility] Comment on above: Performed By: #### C MP #### [facility] [address] [place] [address] Dr. Emely Adrian Albumin/Globulin [Mass ratio] 0.7 {ratio} Normal [facility] Comment on above: Performed By: #### C MP #### [facility] [address] [place] [address] Dr. Emely Adrian ALP [Catalytic activity/Vol] 43 U/L Critically low 46-116 [facility] Comment on above: Performed By: #### C MP #### [facility] [address] [place] [address] Dr. Emely Adrian ALT [Catalytic activity/Vol] 23 U/L Normal 16-63 [facility] Comment on above: Performed By: #### C MP #### [facility] [address] [place] [address] Dr. Emely Adrian Anion gap [Moles/Vol] 13.4 mmol/L Normal [facility] Comment on above: Performed By: #### C MP #### [facility] [address] [address] [address] Emely Adrian AST [Catalytic activity/Vol] 21 U/L Normal 15-37 [facility] Comment on above: Performed By: #### C MP #### [facility] [address] [address] [address] Emely Adrian Bilirubin [Mass/Vol] 0.4 mg/dL Normal 0.2-1.0 [facility] Comment on above: Performed By: #### C MP #### [facility] [address] [address] [address] Emely Adrian Calcium [Mass/Vol] 8.3 mg/dL Critically low 8.5-10.1 [facility] Comment on above: Performed By: #### C MP #### [facility] [address] [address] [address] Emely Adrian Chloride [Moles/Vol] 104 mmol/L Normal 98-107 [facility] Comment on above: Performed By: #### C MP #### [facility] [address] [address] [address] Emely Adrian CO2 [Moles/Vol] 22.9 mmol/L Normal 21.0-32.0 [facility] Comment on above: Performed By: #### C MP #### [facility] [address] [address] [address] Emely Adrian Creatinine [Mass/Vol] 1.80 mg/dL Critically high 0.70-1.30 [facility] Comment on above: Performed By: #### C MP #### [facility] [address] [address] [address] Emely Adrian EGFR-AF GUATEMALAN 46 mL/min/1.73m2 Critically low >=60 [facility] Comment on above: Performed By: #### C MP #### [facility] [address] [address] [address] Emely Adrian EGFR-NON AF GUATEMALAN 38 mL/min/1.73m2 Critically low >=60 [facility] Comment on above: Performed By: #### C MP #### [facility] [address] [address] [address] Emeyl Adrian Globulin (S) [Mass/Vol] 4.3 g/dL Normal [facility] Comment on above: Performed By: #### C MP #### [facility] [address] [address] [address] Emely Adrian Glucose [Mass/Vol] 105 mg/dL Normal 74-106 [facility] Comment on above: Performed By: #### C MP #### [facility] [address] [address] [address] Emely Adrian Potassium [Moles/Vol] 4.3 mmol/L Normal 3.5-5.1 [facility] Comment on above: Performed By: #### C MP #### [facility] [address] [place] [address] Dr. Emely Adrian Protein [Mass/Vol] 7.2 g/dL Normal 6.4-8.2 [facility] Comment on above: Performed By: #### C MP #### [facility] [address] [address] [address] Emely Adrian Sodium [Moles/Vol] 136 mmol/L Normal 136-145 [facility] Comment on above: Performed By: #### C MP #### [facility] [address] [address] [address] Emely Adrian Urea nitrogen [Mass/Vol] 35.0 mg/dL Critically high 7.0-18.0 [facility] Comment on above: Performed By: #### C MP #### [facility] [address] [address] [address] Emely Adrian Urea nitrogen/Creatinin e [Mass ratio] 19.4 mg/mg Normal [facility] Comment on above: Performed By: #### C MP #### [facility] [address] [address] [address] Emely Adrian PROTIMEon 03-09-2022 INR Coag (PPP) [Relative time] 1.12 {INR} Normal [facility] Comment on above: Performed By: #### P TT, PT #### [facility] [address] [place] [address] Dr. Emely Adrian INR GUIDELINES SEE BELOW Normal [facility] Comment on above: Result Comment: DUSTIN RED INR: 2.0 - 3.0 CONDITIONS NOT LISTED BELOW 2.5 - 3.5 FOR PROSTHETIC HEART VALVE REPLACEMENT 2.5 - 3.5 RECURRENT THROMBOSIS Performed By: #### P TT, PT #### [facility] [address] [address] [address] Emely Adrian PT Coag (PPP) [Time] 12.0 s Critically high 9.0-11.6 [facility] Comment on above: Performed By: #### P TT, PT #### [facility] [address] [place] [address] Dr. Emely Adrian PTTon 03-09-2022 aPTT Coag (Bld) [Time] 32.1 s Normal 22.3-36.2 [facility] Comment on above: Performed By: #### P TT, PT #### [facility] [address] [place] [address] Dr. Emely Adrian TROPONIN, HIGH SENSITIVITYon 03-09-2022 HSTROP 12.0 pg/mL Normal 4.0-76.1 [facility] Comment on above: Result Comment: CUT- OFF POINTS HAVE BEEN ESTABLISHED BASED ON THE FOURTH UNIVERSAL DEFINITIONS OF MYOCARDIAL INFARCTION. THE UPPER REFERENCE LIMIT (URL) OF TROPONIN, DEFINED THE 99TH PERCENTILE OF cTnI DISTRIBUTION IN A REFERENCE POPULATION, HAS BEEN CONFIRMED THE DECISION THRESHOLD FOR TX DIAGNOSIS. Performed By: #### T SH, T7, LIPA, EMILY, CMP #### [facility] [address] [place] [address] Dr. Emely Adrian TYPE AND SCREENon 03-09-2022 TYPE AND SCREEN Negative Normal [facility] Comment on above: Performed By: #### T SH, T7, LIPA, EMILY, CMP #### [facility] [address] [place] [address] Dr. Emely Adrian XR CHEST 1 Von [...] by: PATRICIO ANTON Date: 2022-03-09 10:17 Normal [facility] CA 19-9on 02-26-2022 CA 19-9 4 U/mL Normal 0-35 [facility] Comment on above: Result Comment: [employer] [employer] Electrochemiluminescence Immunoassay (ECLIA) . Values obtained with different assay methods or kits cannot be used interchangeably. Results cannot be interpreted as absolute evidence of the presence or absence of malignant disease. Performed By: #### T SH, T7, LIPA, EMILY, CMP #### [facility] [address] [place] [address] Dr. Emely Ardian CEAon 02-26-2022 CEA 1.9 ng/mL Normal 0.0-4.7 [facility] Comment on above: Result Comment: Nons mokers <3.9 Smokers <5.6 . [facility] [facility] Electrochemiluminescence Immunoassay (ECLIA) . Values obtained with different assay methods or kits cannot be used interchangeably. Results cannot be interpreted as absolute evidence of the presence or absence of malignant disease. Performed By: #### T SH, T7, LIPA, EMILY, CMP #### [facility] [address] [place] [address] Dr. Emely Adrian H PYLORI ANTIBODY IGGon 02-08 H. PYLORI IGG ABS 1.19 Index Value Critically high 0.00-0. 79 [facility] Comment on above: Result Comment: Nega tive <0.80 Equivocal 0.80 - 0.89 Positive >0.89 Performed By: #### C BC #### [facility] [address] [place] [address] Dr. Emely Adrian AMYLASEon 02-25-2022 Amylase [Catalytic activity/Vol] 118 U/L Critically high 25-115 [facility] Comment on above: Performed By: #### T SH, T7, LIPA, EMILY, CMP #### [facility] [address] [place] [address] Dr. Emely Adrian CBC AUTO DIFFon 02-25-2022 BASO # 0.0 103/ul Normal 0.0-0.1 [facility] Comment on above: Performed By: #### T SH, T7, LIPA, EMILY, CMP #### [facility] [address] [place] [address] Dr. Emely Adrian Basophils/100 WBC (Bld) 0.2 % Normal 0.2-2.0 [facility] Comment on above: Performed By: #### T SH, T7, LIPA, EMILY, CMP #### [facility] [address] [place] [address] Dr. Emely Adrian EO # 0.1 103/ul Normal 0.0-0.7 [facility] Comment on above: Performed By: #### T SH, T7, LIPA, EMILY, CMP #### [facility] [address] [place] [address] Dr. Emely Adrian Eosinophils/100 WBC (Bld) 2.8 % Normal 0.9-7.0 [facility] Comment on above: Performed By: #### T SH, T7, LIPA, EMILY, CMP #### [facility] [address] [place] [address] Dr. Emely Adrian Erythrocyte distribution width (RBC) [Ratio] 15.6 % Critically high 11.0-15.0 [facility] Comment on above: Performed By: #### T SH, T7, LIPA, EMILY, CMP #### [facility] [address] [place] [address] Dr. Emely Adrian Hematocrit (Bld) [Volume fraction] 28.9 % Critically low 42.0-54.0 [facility] Comment on above: Performed By: #### T SH, T7, LIPA, EMILY, CMP #### [facility] [address] [place] [address] Dr. Emely Adrian Hemoglobin (Bld) [Mass/Vol] 9.5 g/dL Critically low 14.0-18.0 [facility] Comment on above: Performed By: #### T SH, T7, LIPA, EMILY, CMP #### [facility] [address] [place] [address] Dr. Emely Adrian IG # 0.04 10e3/ul Critically high 0.00-0.03 [facility] Comment on above: Performed By: #### T SH, T7, LIPA, EMILY, CMP #### [facility] [address] [place] [address] Dr. Emely Adrian IG % 0.9 % Critically high 0.0-0.5 [facility] Comment on above: Performed By: #### T SH, T7, LIPA, EMILY, CMP #### [facility] [address] [place] [address] Dr. Emely Adrian LYMPH # 1.3 103/ul Normal 1.2-3.8 [facility] Comment on above: Performed By: #### T SH, T7, LIPA, EMILY, CMP #### [facility] [address] [place] [address] Dr. Emely Adrian Lymphocytes/100 WBC (Bld) 29.6 % Normal 20.5-60.0 [facility] Comment on above: Performed By: #### T SH, T7, LIPA, EMILY, CMP #### [facility] [address] [place] [address] Dr. Emely Adrian MANUAL DIFF REQ NO Normal [facility] Comment on above: Performed By: #### T SH, T7, LIPA, EMILY, CMP #### [facility] [address] [place] [address] Dr. Emely Adrian MCH (RBC) [Entitic mass] 32.1 pg Normal 25.9-34.0 [facility] Comment on above: Performed By: #### T SH, T7, LIPA, EMILY, CMP #### [facility] [address] [place] [address] Dr. Emely Adrian MCHC (RBC) [Mass/Vol] 32.9 g/dL Normal 29.9-35.2 [facility] Comment on above: Performed By: #### T SH, T7, LIPA, EMILY, CMP #### [facility] [address] [place] [address] Dr. Emely Adrian MCV (RBC) [Entitic vol] 97.6 fL Critically high 80.0-94.0 [facility] Comment on above: Performed By: #### T SH, T7, LIPA, EMILY, CMP #### [facility] [address] [place] [address] Dr. Emely Adrian MONO # 0.8 103/ul Normal 0.3-0.8 [facility] Comment on above: Performed By: #### T SH, T7, LIPA, EMILY, CMP #### [facility] [address] [place] [address] Dr. Emely Adrian Monocytes/100 WBC (Bld) 17.2 % Critically high 1.7-12.0 [facility] Comment on above: Performed By: #### T SH, T7, LIPA, EMILY, CMP #### [facility] [address] [place] [address] Dr. Emely Adrian NEUT # 2.2 103/ul Normal 1.4-6.5 [facility] Comment on above: Performed By: #### T SH, T7, LIPA, EMILY, CMP #### [facility] [address] [place] [address] Dr. Emely Adrian Neutrophils/100 WBC (Bld) 49.3 % Normal 43.0-75.0 [facility] Comment on above: Performed By: #### T SH, T7, LIPA, EMILY, CMP #### [facility] [address] [place] [address] Dr. Emely Adrian Platelet mean volume (Bld) [Entitic vol] 9.2 fL Critically low 9.5-13.5 [facility] Comment on above: Performed By: #### T SH, T7, LIPA, EMILY, CMP #### [facility] [address] [place] [address] Dr. Emely Adrian PLT 259 103/ul Normal 150-450 [facility] Comment on above: Performed By: #### T SH, T7, LIPA, EMILY, CMP #### [facility] [address] [place] [address] Dr. Emely Adrian RBC 2.96 106/ul Critically low 4.70-6.10 [facility] Comment on above: Performed By: #### T SH, T7, LIPA, EMILY, CMP #### [facility] [address] [place] [address] Dr. Emely Adrian WBC 4.4 103/ul Normal 4.0-11.0 [facility] Comment on above: Performed By: #### T SH, T7, LIPA, EMILY, CMP #### [facility] [address] [place] [address] Dr. Emely Adrian FREE THYROXINE INDEX T7on FTI 1.80 Normal 1.30-4.50 [facility] Comment on above: Performed By: #### T SH, T7, LIPA, EMILY, CMP #### [facility] [address] [place] [address] Dr. Emely Adrian T3U 34.0 % Normal 33.0-40.0 [facility] Comment on above: Performed By: #### T SH, T7, LIPA, EMILY, CMP #### [facility] [address] [place] [address] Dr. Emely Adrian T4 [Mass/Vol] 5.30 ug/dL Normal 4.50-12.10 [facility] Comment on above: Performed By: #### T SH, T7, LIPA, EMILY, CMP #### [facility] [address] [place] [address] Dr. Emely Adrian GI PANEL (PCR)on 02-25-2022 Adenovirus F 40/41 Not detected Normal NOT DETECTED [facility] Comment on above: Performed By: #### G IPANEL #### [facility] [address] [place] [address] Dr. Emely Adrian Astrovirus Not detected Normal NOT DETECTED [facility] Comment on above: Performed By: #### G IPANEL #### [facility] [address] [place] [address] Dr. Emely Adrian C. Diff toxin A/B Not detected Normal NOT DETECTED [facility] Comment on above: Performed By: #### G IPANEL #### [facility] [address] [address] [address] Emely Adrian Campylobacter Not detected Normal NOT DETECTED The [facility] Comment on above: Performed By: #### G IPANEL #### [facility] [address] [address] [address] Emely Adrian Cryptosporidium Not detected Normal NOT DETECTED The [facility] Comment on above: Performed By: #### G IPANEL #### [facility] [address] [address] [address] Emely Adrian Cyclos. Cayetanensis Not detected Normal NOT DETECTED [facility] Comment on above: Performed By: #### G IPANEL #### [facility] [address] [place] [address] Dr. Emely Adrian E. Coli O157 Not Applicable Normal Not Applicable [facility] Comment on above: Performed By: #### G IPANEL #### [facility] [address] [address] [address] Emely Adrian E. histolytica Not detected Normal NOT DETECTED [facility] Comment on above: Performed By: #### G IPANEL #### [facility] [address] [address] [address] Emely Adrian EAEC Not detected Normal NOT DETECTED [facility] Comment on above: Performed By: #### G IPANEL #### [facility] [address] [address] [address] Emely Adrian EIEC Not detected Normal NOT DETECTED [facility] Comment on above: Performed By: #### G IPANEL #### [facility] [address] [place] [address] Dr. Emely Adrian EPEC Not detected Normal NOT DETECTED [facility] Comment on above: Performed By: #### G IPANEL #### [facility] [address] [place] [address] Dr. Emely Adrian ETEC Not detected Normal NOT DETECTED [facility] Comment on above: Performed By: #### G IPANEL #### [facility] [address] [address] [address] Emely Olsen Lamblia Not detected Normal NOT DETECTED [facility] Comment on above: Performed By: #### G IPANEL #### [facility] [address] [address] [address] Emely STODDARD CONTROLS PASSED Normal [facility] Comment on above: Performed By: #### G IPANEL #### [facility] [address] [address] [address] Emely HERNANDEZ HEADER GI PANEL BACTERIA Normal T [facility] Comment on above: Performed By: #### G IPANEL #### [facility] [address] [place] [address] Dr. Emely KAHN ECOLI GI PANEL DIARRHEAGEN IC E.COLI / SHIGELLA Normal [facility] Comment on above: Performed By: #### G IPANEL #### [facility] [address] [place] [address] Dr. Emely KAHN INFO SEE BELOW Normal [facility] Comment on above: Result Comment: EAEC - Enteroaggregative E. Coli EPEC- Enteropathogenic E. Coli ETEC- Enterotoxigenic E. Coli lt/st STEC- Shigella-like toxin-producing E. Coli stx1/stx2 EIEC- Shigella/Enteroinvasive E. Coli Performed By: #### G IPANEL #### [facility] [address] [place] [address] Dr. Emely KAHN PARASITES GI PANEL PARASITES Normal [facility] Comment on above: Performed By: #### G IPANEL #### [facility] [address] [place] [address] Dr. Emely KAHN VIRUS GI PANEL VIRUSES Normal The [facility] Comment on above: Performed By: #### G IPANEL #### [facility] [address] [place] [address] Dr. Emely Adrian Norovirus GI/GII Not detected Normal NOT DETECTED [facility] Comment on above: Performed By: #### G IPANEL #### [facility] [address] [place] [address] Dr. Yilan Adrian P. Shigelloides Not detected Normal NOT DETECTED The [facility] Comment on above: Performed By: #### G IPANEL #### [facility] [address] [place] [address] Dr. Emely Adrian Rotavirus A Not detected Normal NOT DETECTED [facility] Comment on above: Performed By: #### G IPANEL #### [facility] [address] [address] [address] Emely Adrian Salmonella Not detected Normal NOT DETECTED [facility] Comment on above: Performed By: #### G IPANEL #### [facility] [address] [place] [address] Dr. Emely Adrian Sapovirus Not detected Normal NOT DETECTED [facility] Comment on above: Performed By: #### G IPANEL #### [facility] [address] [place] [address] Dr. Emely Adrian STEC Not detected Normal NOT DETECTED [facility] Comment on above: Performed By: #### G IPANEL #### [facility] [address] [place] [address] Dr. Emely Adrian Vibrio Not detected Normal NOT DETECTED [facility] Comment on above: Performed By: #### G IPANEL #### [facility] [address] [place] [address] Dr. Emely Adrian Vibrio Cholera Not detected Normal NOT DETECTED [facility] Comment on above: Performed By: #### G IPANEL #### [facility] [address] [place] [address] Dr. Emely Adrian Y. Enterocolitica Not detected Normal NOT DETECTED [facility] Comment on above: Performed By: #### G IPANEL #### [facility] [address] [place] [address] Dr. Emely Adrian GLYCOHEMOGLOBIN A1Con 2021 ADA RECOMMENDATION SEE BELOW Normal [facility] Comment on above: Result Comment: ADA RECOMMENDED LIMIT 4.0 - 6.0 ADA THERAPEUTIC TARGET < 7.0 ACTION SUGGESTED > 7.0 Performed By: #### T SH, T7, LIPA, EMILY, CMP #### [facility] [address] [place] [address] Dr. Emely Adrian Glucose [Mass/Vol] 120 mg/dL Normal [facility] Comment on above: Performed By: #### T SH, T7, LIPA, EMILY, CMP #### [facility] [address] [place] [address] Dr. Emely Adrian HbA1c (Bld) [Mass fraction] 5.8 % Normal 4.5-6.2 [facility] Comment on above: Performed By: #### T SH, T7, LIPA, EMILY, CMP #### [facility] [address] [place] [address] Dr. Emely Adrian IRONon 02-25-2022 Iron [Mass/Vol] 55.0 ug/dL Critically low 65.0-175.0 [facility] Comment on above: Performed By: #### C BC #### [facility] [address] [place] [address] Dr. Emely Adrian LIPASEon 02-25-2022 Lipase [Catalytic activity/Vol] 671.0 U/L Critically high 73.0-393.0 [facility] Comment on above: Performed By: #### T BASIM, T7, LIPA, EMILY, CMP #### [facility] [address] [place] [address] Dr. Emely Adrian OCC BLD IMMUNO SCREENon 02-08 OCCULT BLOOD Positive Abnormal NEGATIVE [facility] Comment on above: Performed By: #### T BASIM, T7, LIPA, EMILY, CMP #### [facility] [address] [place] [address] Dr. Emely Adrian PROF 14(COMP METB)on 022 Albumin [Mass/Vol] 3.0 g/dL Critically low 3.4-5.0 [facility] Comment on above: Performed By: #### T SH, T7, LIPA, EMILY, CMP #### [facility] [address] [place] [address] Dr. Emely Adrian Albumin/Globulin [Mass ratio] 0.8 {ratio} Normal [facility] Comment on above: Performed By: #### T SH, T7, LIPA, EMILY, CMP #### [facility] [address] [place] [address] Dr. Emely Adrian ALP [Catalytic activity/Vol] 58 U/L Normal 46-116 [facility] Comment on above: Performed By: #### T SH, T7, LIPA, EMILY, CMP #### [facility] [address] [place] [address] Dr. Emely Adrian ALT [Catalytic activity/Vol] 25 U/L Normal 16-63 [facility] Comment on above: Performed By: #### T SH, T7, LIPA, EMILY, CMP #### [facility] [address] [place] [address] Dr. Emely Adrian Anion gap [Moles/Vol] 12.1 mmol/L Normal [facility] Comment on above: Performed By: #### T SH, T7, LIPA, EMILY, CMP #### [facility] [address] [place] [address] Dr. Emely Adrian AST [Catalytic activity/Vol] 20 U/L Normal 15-37 [facility] Comment on above: Performed By: #### T SH, T7, LIPA, EMILY, CMP #### [facility] [address] [place] [address] Dr. Emely Adrian Bilirubin [Mass/Vol] 0.2 mg/dL Normal 0.2-1.0 [facility] Comment on above: Performed By: #### T SH, T7, LIPA, EMILY, CMP #### [facility] [address] [place] [address] Dr. Emely Adrian Calcium [Mass/Vol] 8.3 mg/dL Critically low 8.5-10.1 [facility] e [facility] Comment on above: Performed By: #### T SH, T7, LIPA, EMILY, CMP #### [facility] [address] [place] [address] Dr. Emely Adrian Chloride [Moles/Vol] 108 mmol/L Critically high 98-107 [facility] Comment on above: Performed By: #### T SH, T7, LIPA, EMILY, CMP #### [facility] [address] [address] [address] Emely Adrian CO2 [Moles/Vol] 24.5 mmol/L Normal 21.0-32.0 [facility] Comment on above: Performed By: #### T SH, T7, LIPA, EMILY, CMP #### [facility] [address] [place] [address] Dr. Emely Adrian Creatinine [Mass/Vol] 0.97 mg/dL Normal 0.70-1.30 [facility] Comment on above: Performed By: #### T SH, T7, LIPA, EMILY, CMP #### [facility] [address] [place] [address] Dr. Emely Adrian EGFR-AF GUATEMALAN >60 Normal >=60 [facility] Comment on above: Performed By: #### T SH, T7, LIPA, EMILY, CMP #### [facility] [address] [place] [address] Dr. Emely Adrian EGFR-NON AF GUATEMALAN >60 Normal >=60 [facility] Comment on above: Performed By: #### T SH, T7, LIPA, EMILY, CMP #### [facility] [address] [place] [address] Dr. Emely Adrian Globulin (S) [Mass/Vol] 3.8 g/dL Normal [facility] Comment on above: Performed By: #### T SH, T7, LIPA, EMILY, CMP #### [facility] [address] [place] [address] Dr. Emely Adrian Glucose [Mass/Vol] 97 mg/dL Normal 74-106 [facility] Comment on above: Performed By: #### T SH, T7, LIPA, EMILY, CMP #### [facility] [address] [place] [address] Dr. Emely Adrian Potassium [Moles/Vol] 4.6 mmol/L Normal 3.5-5.1 [facility] Comment on above: Performed By: #### T SH, T7, LIPA, EMILY, CMP #### [facility] [address] [place] [address] Dr. Emely Adrian Protein [Mass/Vol] 6.8 g/dL Normal 6.4-8.2 [facility] Comment on above: Performed By: #### T BASIM, T7, LIPA, EMILY, CMP #### [facility] [address] [place] [address] Dr. Emely Adrian Sodium [Moles/Vol] 140 mmol/L Normal 136-145 [facility] Comment on above: Performed By: #### T BASIM, T7, LIPA, EMILY, CMP #### [facility] [address] [place] [address] Dr. Emely Adrian Urea nitrogen [Mass/Vol] 20.0 mg/dL Critically high 7.0-18.0 [facility] Comment on above: Performed By: #### T BASIM, T7, LIPA, EMILY, CMP #### [facility] [address] [place] [address] Dr. Emely Adrian Urea nitrogen/Creatinin e [Mass ratio] 20.6 mg/mg Normal [facility] Comment on above: Performed By: #### T BASIM, T7, LIPA, EMILY, CMP #### [facility] [address] [place] [address] Dr. Emely Adrian TSHon 02-25-2022 TSH 1.247 uIU/mL Normal 0.358-3.740 [facility] Comment on above: Performed By: #### T BASIM, T7, LIPA, EMILY, CMP #### [facility] [address] [place] [address] Dr. Emely Adrian VITAMIN D 25 OHon 02-25-2022 VIT D 25-OH 23.9 ng/mL Normal [facility] Comment on above: Performed By: #### C BC #### [facility] [address] [place] [address] Dr. Emely Adrian VIT D RANGES SEE BELOW Normal [facility] Comment on above: Result Comment: <20 ng/mL Vit D deficient 20 - <30 ng/mL Vit D insufficient 30 - 100 ng/mL Vit D sufficient >100 ng/mL Potential Toxicity Performed By: #### C BC #### [facility] [address] [place], [place] [id number] Dr. Emely Adrian Follow-Upon 02-23-2022 Follow-Up [id number] Hanna Beckman Madelaine 1955 M Date Provider Department Center 02/23/2022 3848-ALEXI WEEKS [facility] Family History Problem Relation Age of Onset Stroke Mother Family Status - Relation Status Age at Mother Level of Service:89785 ND OFFICE/OUTPATIENT ESTABLISHED MOD MDM 30-39 MIN Normal [facility] CREATININEon 12-30-2021 Creatinine [Mass/Vol] 1.21 mg/dL Normal 0.70-1.30 [facility] Comment on above: Performed By: #### T SH, T7, LIPA, EMILY, CMP #### [facility] [address] [place] [address] Dr. Emely Adrian EGFR-AF GUATEMALAN >60 Normal >=60 [facility] Comment on above: Performed By: #### T SH, T7, LIPA, EMILY, CMP #### [facility] [address] [place] [address] Dr. Emely Adrian EGFR-NON AF GUATEMALAN =60 Normal >=60 [facility] Comment on above: Performed By: #### T SH, T7, LIPA, EMILY, CMP #### [facility] [address] [place] [address] CHEST WO W [...] by: KIRK CRUZ Date: 2021-12-30 08:46 Normal [facility] Office Visiton 12-24-2021 Follow-up visit [id number] Hanna Beckman 1955 M Date Provider Department Center 12/24/2021 Nancy8-ALEXI WEEKS [facility] Family History Problem Relation Age of Onset Stroke Mother Family Status - Relation Status Age at Mother Level of Service:18597 ND OFFICE/OUTPATIENT ESTABLISHED MOD MDM 30-39 MIN Reason for Visit and Comments: Atrial Fibrillation [80] Hypertension [144423] Coronary Artery Disease [187] NSVT [Other] - Patient here for follow up event monitor per Nai Vega CNP, Normal [facility] Abstracton 12-11-2021 Abstract [id number] Hanna Beckman 1955 M Date Provider Department Center 12/11/2021 HEBER SIDDIQUI [facility] Family History Problem Relation Age of Onset Stroke Mother Family Status - Relation Status Age at Mother [facility] NM STRESS/REST MULTIon 11-09 NM STRESS/REST MULTI Patient: PABLO BECKMAN Exam Date: 11/09/2021 : 1955 Gender:M Ordering : DR LV HEARD . Admission #: [id number] Family : Order #: [id number] CLICK HERE TO VIEW EXAM RADIOLOGY REPORT [...] CK [Catalytic activity/Vol] 114 U/L Normal 39-308 [facility] Comment on above: Performed By: #### T SH, T7, LIPA, EMILY, CMP #### [facility] [address] [place], [place] [address] Dr. Emely Adrian CK.MB [Mass/Vol] 1.75 ng/mL Normal <=3.60 [facility] Comment on above: Performed By: #### T SH, T7, LIPA, EMILY, CMP #### [facility] [address] [place], [place] [address] Dr. Emely Adrian HSTROP 10.8 pg/mL Normal 4.0-76.1 [facility] Comment on above: Result Comment: CUT- OFF POINTS HAVE BEEN ESTABLISHED BASED ON THE FOURTH UNIVERSAL DEFINITIONS OF MYOCARDIAL INFARCTION. THE UPPER REFERENCE LIMIT (URL) OF TROPONIN, DEFINED THE 99TH PERCENTILE OF cTnI DISTRIBUTION IN A REFERENCE POPULATION, HAS BEEN CONFIRMED THE DECISION THRESHOLD FOR TX DIAGNOSIS. Performed By: #### T SH, T7, LIPA, EMILY, CMP #### [facility] [address] [address] [address] Emely Adrian CK [Catalytic activity/Vol] 122 U/L Normal 39-308 [facility] Comment on above: Performed By: #### T SH, T7, LIPA, EMILY, CMP #### [facility] [address] [place] [address] Dr. Emely Adrian CK.MB [Mass/Vol] 2.59 ng/mL Normal <=3.60 [facility] Comment on above: Performed By: #### T SH, T7, LIPA, EMILY, CMP #### [facility] [address] [place] [address] Dr. Emely Adrian HSTROP 10.5 pg/mL Normal 4.0-76.1 [facility] Comment on above: Result Comment: CUT- OFF POINTS HAVE BEEN ESTABLISHED BASED ON THE FOURTH UNIVERSAL DEFINITIONS OF MYOCARDIAL INFARCTION. THE UPPER REFERENCE LIMIT (URL) OF TROPONIN, DEFINED THE 99TH PERCENTILE OF cTnI DISTRIBUTION IN A REFERENCE POPULATION, HAS BEEN CONFIRMED THE DECISION THRESHOLD FOR TX DIAGNOSIS. Performed By: #### T SH, T7, LIPA, EMILY, CMP #### [facility] [address] [place] [address] Dr. Emely Adrian CK [Catalytic activity/Vol] 130 U/L Normal 39-308 [facility] Comment on above: Performed By: #### C BC #### [facility] [address] [place] [address] Dr. Emely GRANT.MB [Mass/Vol] 2.10 ng/mL Normal <=3.60 [facility] Comment on above: Performed By: #### C BC #### [facility] [address] [place] [address] Dr. Emely Adrian HSTROP 10.2 pg/mL Normal 4.0-76.1 [facility] Comment on above: Result Comment: CUT- OFF POINTS HAVE BEEN ESTABLISHED BASED ON THE FOURTH UNIVERSAL DEFINITIONS OF MYOCARDIAL INFARCTION. THE UPPER REFERENCE LIMIT (URL) OF TROPONIN, DEFINED THE 99TH PERCENTILE OF cTnI DISTRIBUTION IN A REFERENCE POPULATION, HAS BEEN CONFIRMED THE DECISION THRESHOLD FOR TX DIAGNOSIS. Performed By: #### C BC #### [facility] [address] [address] [address] Emely Adrian CARDIAC PHILIP ADMITon 022 CK [Catalytic activity/Vol] 164 U/L Normal 39-308 [facility] Comment on above: Performed By: #### C BC #### [facility] [address] [address] [address] Emely Adrian CK.MB [Mass/Vol] 3.38 ng/mL Normal <=3.60 [facility] Comment on above: Performed By: #### C BC #### [facility] [address] [place] [address] Dr. Emely Adrian HSTROP 9.5 pg/mL Normal 4.0-76.1 [facility] Comment on above: Result Comment: CUT- OFF POINTS HAVE BEEN ESTABLISHED BASED ON THE FOURTH UNIVERSAL DEFINITIONS OF MYOCARDIAL INFARCTION. THE UPPER REFERENCE LIMIT (URL) OF TROPONIN, DEFINED THE 99TH PERCENTILE OF cTnI DISTRIBUTION IN A REFERENCE POPULATION, HAS BEEN CONFIRMED THE DECISION THRESHOLD FOR TX DIAGNOSIS. Performed By: #### C BC #### [facility] [address] [place] [address] Dr. Emely Adrian ADY 124 ng/mL Critically high 16-96 [facility] Comment on above: Performed By: #### C BC #### [facility] [address] [place] [address] Dr. Emely Adrian CBC AUTO DIFFon 10-27-2021 BASO # 0.0 103/ul Normal 0.0-0.1 [facility] Comment on above: Performed By: #### C BC #### [facility] [address] [address] [address] Emely Adrian Basophils/100 WBC (Bld) 0.1 % Critically low 0.2-2.0 [facility] Comment on above: Performed By: #### C BC #### [facility] [address] [place] [address] Dr. Emely Adrian EO # 0.3 103/ul Normal 0.0-0.7 [facility] Comment on above: Performed By: #### C BC #### [facility] [address] [address] [address] Emely Adrian Eosinophils/100 WBC (Bld) 3.2 % Normal 0.9-7.0 [facility] Comment on above: Performed By: #### C BC #### [facility] [address] [address] [address] Emely Adrian Erythrocyte distribution width (RBC) [Ratio] 13.6 % Normal 11.0-15.0 [facility] Comment on above: Performed By: #### C BC #### [facility] [address] [place] [address] Dr. Emely Adrian Hematocrit (Bld) [Volume fraction] 32.2 % Critically low 42.0-54.0 [facility] Comment on above: Performed By: #### C BC #### [facility] [address] [place] [address] Dr. Emely Adrian Hemoglobin (Bld) [Mass/Vol] 10.5 g/dL Critically low 14.0-18.0 [facility] Comment on above: Performed By: #### C BC #### [facility] [address] [place] [address] Dr. Emely Adrian IG # 0.05 10e3/ul Critically high 0.00-0.03 [facility] Comment on above: Performed By: #### C BC #### [facility] [address] [place] [address] Dr. Emely Adrian IG % 0.6 % Critically high 0.0-0.5 [facility] Comment on above: Performed By: #### C BC #### [facility] [address] [address] [address] Emely Adrian LYMPH # 1.7 103/ul Normal 1.2-3.8 [facility] Comment on above: Performed By: #### C BC #### [facility] [address] [place] [address] Dr. Emely Adrian Lymphocytes/100 WBC (Bld) 19.7 % Critically low 20.5-60.0 [facility] Comment on above: Performed By: #### C BC #### [facility] [address] [place] [address] Dr. Emely Adrian MANUAL DIFF REQ NO Normal [facility] Comment on above: Performed By: #### C BC #### [facility] [address] [place] [address] Dr. Emely Adrian MCH (RBC) [Entitic mass] 31.7 pg Normal 25.9-34.0 [facility] Comment on above: Performed By: #### C BC #### [facility] [address] [place] [address] Dr. Emely Adrian MCHC (RBC) [Mass/Vol] 32.6 g/dL Normal 29.9-35.2 [facility] Comment on above: Performed By: #### C BC #### [facility] [address] [place] [address] Dr. Emely Adrian MCV (RBC) [Entitic vol] 97.3 fL Critically high 80.0-94.0 [facility] Comment on above: Performed By: #### C BC #### [facility] [address] [place] [address] Dr. Emely Adrian MONO # 1.0 103/ul Critically high 0.3-0.8 [facility] Comment on above: Performed By: #### C BC #### [facility] [address] [place] [address] Dr. Emely Adrian Monocytes/100 WBC (Bld) 12.4 % Critically high 1.7-12.0 [facility] Comment on above: Performed By: #### C BC #### [facility] [address] [place] [address] Dr. Emely Adrian NEUT # 5.4 103/ul Normal 1.4-6.5 [facility] Comment on above: Performed By: #### C BC #### [facility] [address] [place] [address] Dr. Emely Adrian Neutrophils/100 WBC (Bld) 64.0 % Normal 43.0-75.0 [facility] Comment on above: Performed By: #### C BC #### [facility] [address] [place], [place] [address] Dr. Emely Adrian Platelet mean volume (Bld) [Entitic vol] 9.2 fL Critically low 9.5-13.5 [facility] Comment on above: Performed By: #### C BC #### [facility] [address] [address] [address] Emely Adrian PLT 417 103/ul Normal 150-450 [facility] Comment on above: Performed By: #### C BC #### [facility] [address] [place], [place] [address] Dr. Emely Adrian RBC 3.31 106/ul Critically low 4.70-6.10 [facility] Comment on above: Performed By: #### C BC #### [facility] [address] [address] [address] Emely Adrian WBC 8.4 103/ul Normal 4.0-11.0 [facility] Comment on above: Performed By: #### C BC #### [facility] [address] [address] [address] Emely Adrian CTA CHEST WO W CONon 07-20-2 022 CTA CHEST WO W CON EXAMINATION: CTA GUY ST WO W CON HISTORY: CHEST PAIN, UNSPECIFIED [...] for this test is supported by the [place] of Health and Human Service's declaration that [...] be used). Performed By: #### T BASIM, T7, FELICIANO, EMILY, CMP #### [facility] [address] [address] [address] Emely Adrian D-DIMERon 10-27-2021 D-DIMER 2.19 mg/L FEU Critically high <=0.59 [facility] Comment on above: Performed By: #### T BASIM, T7, EMILY WIGGINS, CMP #### [facility] [address] [place], [place] [address] Dr. Emely Adrian D-DIMER COMMENTS SEE BELOW Normal [facility] Comment on above: Result Comment: Incr [...] CMP #### [facility] [address] [place], [place] [address] Dr. Emely Adrian DIGOXINon 10-27-2021 DIG <0.2 Critically low 0.9-2.0 [facility] Comment on above: Performed By: #### T SH, T7, LIPA, EMILY, CMP #### [facility] [address] [place], [place] [address] Dr. Emely Adrian ECHOCARDIO M/2D COMPLETEon 0 10-27-2021 ECHOCARDIO M/2D COMPLETE Patient: PABLO BECKMAN Exam Date: 10/27/2021 : 1955 Gender:M Ordering : DR LV HEARD . Admission #: [id number] Family : Order #: [id number] CLICK HERE TO VIEW EXAM ECHOCARDIOGRAM REPORT [...] Stark M.D. on 10/27/2021 at 17:01 Normal [facility] LACTATE/LACTIC ACIDon 2021 Lactate [Moles/Vol] 0.5 mmol/L Normal 0.4-1.9 [facility] Comment on above: Performed By: #### T SH, T7, LIPA, EMILY, CMP #### [facility] [address] [place] [address] Dr. Emely Adrian Lactate [Moles/Vol] 0.5 mmol/L Normal 0.4-1.9 [facility] Comment on above: Performed By: #### C BC #### [facility] [address] [address] [address] Emely Adrian PROF CHEM 8 (BAS METB)on Anion gap [Moles/Vol] 15.3 mmol/L Normal [facility] Comment on above: Performed By: #### C BC #### [facility] [address] [address] [address] Emely Adrian Calcium [Mass/Vol] 9.1 mg/dL Normal 8.5-10.1 [facility] Comment on above: Performed By: #### C BC #### [facility] [address] [address] [address] Emely Adrian Chloride [Moles/Vol] 105 mmol/L Normal 98-107 [facility] Comment on above: Performed By: #### C BC #### [facility] [address] [address] [address] Emely Adrian CO2 [Moles/Vol] 26.6 mmol/L Normal 21.0-32.0 [facility] Comment on above: Performed By: #### C BC #### [facility] [address] [address] [address] Emely Adrian Creatinine [Mass/Vol] 1.29 mg/dL Normal 0.70-1.30 [facility] Comment on above: Performed By: #### C BC #### [facility] [address] [address] [address] Emely Adrian EGFR-AF GUATEMALAN >60 Normal >=60 [facility] Comment on above: Performed By: #### C BC #### [facility] [address] [address] [address] Emely Adrian EGFR-NON AF GUATEMALAN 56 mL/min/1.73m2 Critically low >=60 [facility] Comment on above: Performed By: #### C BC #### [facility] [address] [address] [address] Emely Adrian Glucose [Mass/Vol] 100 mg/dL Normal 74-106 [facility] Comment on above: Performed By: #### C BC #### [facility] [address] [address] [address] Emely Adrian Potassium [Moles/Vol] 3.9 mmol/L Normal 3.5-5.1 [facility] Comment on above: Performed By: #### C BC #### [facility] [address] [address] [address] Emely Adrian Sodium [Moles/Vol] 143 mmol/L Normal 136-145 [facility] Comment on above: Performed By: #### C BC #### [facility] [address] [address] [address] Emely Adrian Urea nitrogen [Mass/Vol] 28.0 mg/dL Critically high 7.0-18.0 [facility] Comment on above: Performed By: #### C BC #### [facility] [address] [address] [address] Emely Adrian Urea nitrogen/Creatinin e [Mass ratio] 21.7 mg/mg Normal [facility] Comment on above: Performed By: #### C BC #### [facility] [address] [place], [place] [address] Dr. Emely Adrian XR CHEST 1 Von 10-27-2021 XR CHEST 1 V EXAM: XR CHEST 1 V 10/27/2021 3:51 AM EDT OH001 CLINICAL STATEMENT: CHEST PAIN, UNSPECIFIED COMPARISON: 02/20/2021 TECHNIQUE: Single AP radiograph of the chest is submitted. FINDINGS: There is no acute airspace disease. The cardiac silhouette is normal. The costophrenic recesses are sharp. No pneumothorax. The bony elements are unremarkable. IMPRESSION: No acute cardiopulmonary process. FOLLOW-UP: Follow-up as clinically indicated. Electronically authenticated by: KARLY SAID Date: 2021-10-27 04:41 Normal [facility] Cardiovascular Lab Reporton 04-09-2021 Cardiovascular Lab Report [facility] Patient Name: [facility] MR #: [id number] Physician: Mamta Stephenson, Department of CYBER DEFENSE ANALYST Medicine Service Date: 04/07/2021 Division of Birthdate: 1955 Cardiology Room #: Adult Cardiovascular Services [place] [address] Cardiovascular Laboratory Report DATE OF PROCEDURE; 04/07/2021 [...] A/Alexi Weeks MD Date Trans: 04/09/2021 11:17 Sergio/ [id number] [place] [facility] Encounters Encounter Date Encounter Type Care Provider Facility Start: 06-21-2023 Telephone encounter Quinton Gonzáles MD Work Phone: Radiation Oncology Comment on above: Results; Appointment Start: 05-23-2023 Telephone encounter Quinton Gonzáles MD Work Phone: Radiation Oncology Comment on above: Future Appointment Start: 08-09-2022 End: 08-09-2022 ambulatory [facility] Start: 06-23-2022 End: 06-23-2022 ambulatory Quinton Gonzáles MD Work Phone: Radiation Oncology Comment on above: Malignant neoplasm o f prostate (HCC) (Primary Dx) Start: 06-23-2022 End: 06-23-2022 Telemedicine consultation with patient Quinton Isidoro Gonzáles MD Work Phone: [place] Start: 06-23-2022 End: 06-24-2022 ambulatory LV HEARD Facility:[facility] Start: 06-22-2022 Telephone encounter Quinton Isidoro Gonzáles MD Work Phone: Radiation Oncology Comment on above: Patient Question Start: 06-02-2022 End: 06-03-[address] JT GONZÁLES Facility:[facility] Start: 05-17-2022 End: 05-17-[address] [facility] Start: 03-29-2022 End: 03-29-2022 Patient encounter procedure Patricio BEAUCHAMP General Surgery [facility] Start: 03-19-2022 Encounter for preprocedural laboratory examination DR PATRICIO BEAUCHAMP . [facility] Start: 03-18-2022 End: 03-18-[address] PATRICIO BEAUCHAMP . Facility:[facility] Start: 03-14-2022 End: 03-15-[address] PATRICIO BEAUCHAMP . Facility:[facility] Start: 03-14-2022 End: 03-15-2022 Encounter for preprocedural laboratory examination DR PATRICIO BEAUCHAMP . Facility:[facility] Start: 03-09-2022 End: 03-09-[address] ISIDRO WOOTEN Facility:[facility] Start: 02-25-2022 End: 02-26-[address] LV HEARD . Facility:[facility] Start: 02-23-2022 End: 02-23-2022 ambulatory [facility] Start: 12-30-2021 End: 12-31-[address] LV HEARD . Facility:[facility] Start: 12-24-2021 End: 12-24-2021 ambulatory [facility] Start: 11-09-2021 End: 11-10-[address] LV HEARD . Facility:[facility] Start: 10-27-2021 End: 10-27-[address] LV HEARD . Facility: Start: 04-07-2021 End: 04-08-2021 ambulatory MAMTA STEPHENSON Facility:[facility] Procedures Date Procedure Procedure Detail Performing Clinician Start: 06-02-2022 End: 06-02-2022 PSA screening [facility] Provider Comment on above: Performed By: #### TSH, T7, LIPA, EMILY, C MP #### [facility] [address] [place] [address] Dr. Emely Adrian Start: 03-18-2022 Colonoscopy Patricio NILL Start: 03-18-2022 Esophagogastroduodenoscopy Patricio NILL Start: 10-17-2018 Colonoscopy Patricio NILL Start: 09-11-2009 Colonoscopy Patricio NILL Amputation of finger, except thumb Patricio NILL Arthroscopy of shoulder Meng aecandace MARTINEZL Implantation of radi oactive seed into prostate Patricio MARTINEZL Open reduction of fr acture with internal fixation Patricio MARTINEZL Comment on above: right leg Umbilical herniorrha phy using surgical sutures Patricio NILL Plan of Treatment Date Care Activity Detail Author Start: 06-12-2028 Prostate specific antigen measurement Prostate Cancer Screening Discussion [facility] Start: 06-02-2027 PROSTATE CANCER SCREENING DISCUSSION PROSTATE CANCER SCREENING DISCUSSION [facility] Start: 06-02-2027 Prostate specific antigen measurement Prostate Cancer Screening Discussion [facility] Start: 06-12-2024 End: 09-11-2024 Prostate specific Ag [Mass/volume] in Serum or Plasma PSA/PROSTSPECAG DIAG Lab Routine Malignant neoplasm of prostate (HCC) Expected: 06/12/2024, Expires: 09/11/2024 [facility] Work Phone: Comment on above: Expected: 06/12/2024 , Expires: 09/11/2024 Start: 05-23-2023 End: 08-22-2023 Prostate specific Ag [Mass/volume] in Serum or Plasma PSA/PROSTSPECAG DIAG Lab Routine Malignant neoplasm of prostate (HCC) Expected: 05/23/2023, Expires: 08/22/2023 [facility] Work Phone: Comment on above: Expected: 05/23/2023 , Expires: 08/22/2023 Start: 04-10-2023 Advance Directive Discussion Advance Directive Discussion [facility] Start: 04-10-2023 Depression Assessment Depression Ass essment [facility] Start: 01-18-2023 Pneumococcal Vaccine : 65+ (2 of 2 - PPSV23 or PCV20) Pneumococcal Vaccine: 65+ (2 of 2 - PPSV23 or PCV20) [facility] Start: 12-09-2022 Covid-19 Vaccine ( season) Covid-19 Vaccine ( season) [facility] Start: 12-09-2022 Influenza vaccination Influenza Vacc ine (#1) [facility] Start: 04-10-2022 ADVANCE DIRECTIVE DISCUSSION ADVANCE DIRECTIVE DISCUSSION [facility] Start: 04-10-2022 DEPRESSION ASSESSMENT DEPRESSION ASS ESSMENT [facility] Start: 12-09-2021 Influenza vaccination INFLUENZA (#1) [facility] Start: 2021 PNEUMOCOCCAL: 65+ (1 - PCV) PNEUMOCOCCAL: 65+ (1 - PCV) [facility] Start: 09-24-2020 COVID-19 VACCINE (3 - Booster for Pfizer series) COVID-19 VACCINE (3 - Booster for Pfizer series) [facility] Start: 2016 RSV Vaccine (1 - 1-d ose 60+ series) RSV Vaccine (1 - 1-dose 60+ series) [facility] Start: 2006 SHINGRIX VACCINE (1 of 2) SHINGRIX VACCINE (1 of 2) [facility] Start: 2001 COLOGUARD (FIT-DNA) COLOGUARD (FIT-D NA) [facility] Start: 2001 Colonoscopy COLONOSCOPY [facility] Start: 2001 COLORECTAL CANCER SCREENING COLORECTAL CANCER SCREENING [facility] Start: [address] COLONOGRAPHY [facility] Start: 2001 DIABETES SCREEN DIABETES SCREEN [facility] Start: 2001 Diabetes Screening Diabetes Screenin g [facility] Start: 2001 FECAL OCCULT BLOOD FECAL OCCULT BLOO D [facility] Start: 2001 Screening for malign ant neoplasm of colon [facility] Start: 2001 [facility] Start: 10-21-1991 Lipid panel [facility] Start: 10-21-1991 LIPID SCREEN LIPID SCREEN [facility] Start: 10-21-1975 Urine microalbumin profile [facility] Start: 1974 HEPATITIS C SCREENING HEPATITIS C [facility] Start: 1974 Hepatitis C screening Hepatitis C [facility] Start: 1974 HIV SCREENING HIV SCREENING [facility] Start: 1955 ABDOMINAL AORTIC ANEURYSM SCREENING ABDOMINAL AORTIC ANEURYSM SCREENING [facility] Start: 1955 Abdominal aortic aneurysm screening Abdominal Aortic Aneurysm Screening [facility] Cl[facility] c Immunizations Immunization Date Immunization Notes Care Provider Fa cility NEGATED: Highlighted row has not occurred!03-08-2022 influenza virus vaccine, unspecified formulation Patricio BEAUCHAMP [facility] [place] Payers Date Payer Category Payer Medicare DEVOTED MEDICARE [facility] HEALTH [place] HMO [id number] 2023-Present [phone] [address] [place] [address] HMO [id number] 2022 Private Health Insurance [facility] CHOICE PLUS [id number] 2022-Present [phone] [address] [place] [address] HMO [id number] 2006 Unknown [facility] GENERIC [id number] 2006-Present [phone] [place] [address] WC [id number] 1959 Unknown [id number] 1959 Unknown [id number] 1955 Unknown [id number] .[id number] 1955 Unknown [id number] .[id number] 1955 Unknown [id number] .2.593 1955 Unknown [id number] .2.593 1955 Unknown [id number] .2.593 1955 Unknown [id number] .2.593 1955 Unknown [id number] .2.593 1955 Unknown [id number] .[id number] 1955 Unknown [id number] .[id number] Social History Date Type Detail Facility Start: 06-24-2020 End: 03-08-2022 Tobacco smoking status Ex-smoker (finding) [facility] [place] Tobacco smoking status Never [facility] [place] Start: 06-24-2020 End: 06-23-2022 Sex Assigned At Male Eduin Emma Roman [facility] End: 06-10-1989 History of tobacco use Current smoker [facility] End: 06-10-1989 History of tobacco use Cigarette Smoker [facility] Start: 06-24-2020 End: 06-23-2022 Cigarettes smoked current (pack per day) - Reported 1.5 [facility] Start: 06-24-2020 Tobacco use and exposure Smokeless tobacco non-user [facility] Start: 06-24-2020 Alcohol intake Not Asked Hipolito branham [facility] Start: 1955 Sex Assigned At Not on file [facility] Clinical Notes 12-24-2021 to 06-21-2023 Telephone Encounter - Latisha Rojas LPN - 06/21/2023 2:40 PM EDTTelephone Encounter - Josefina Anderson RN - 05/23/2023 9:43 AM ESTG Isidoro Gonzáles MD - 06/23/2022 10:11 AM EDT Note Date & Type Note Facility 06-21-2023 Miscellaneous Notes Melvina called to reschedule Mr. Beckman follow up and the call was transferred to nursing to review most recent PSA results. 06/13/23 PSA <0.13 previous 06/02/22 PSA 0.52. Patient is wondering if he needs to have a visit with Dr. Gonzáles this year or can it be rescheduled for one year since PSA results are good. Please advise. Latisha Rojas RN documented in this encounter [facility] 05-23-2023 Miscellaneous Notes PT called in to schedule follow up for this year. He will also need PSA. Please sign pended order and we will fax to [facility]. Josefina Anderson RN documented in this encounter [facility] 08-09-2022 Note [facility] Consult Note Reason [...] cuts himself at work. 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 He denies any changes since last seen [...] no difficulty hearing, (more content not included)... [facility] 06-23-2022 Note HNO ID: [id number] Author: Quinton Gonzáles MD Service: ? Author [...] Time Spent: 6 minutes Quinton Gonzáles MD [facility] 06-23-2022 History of Present illness Narrative [...] Quinton Gonzáles MD documented in this encounter [facility] 06-23-2022 Miscellaneous Notes Appointment has been changed in Epic. Kwaku Rasmussen Per Dr Gonzáles, ok to switch to phone visit. Patient was notified. PSS- please change in epic. Josefina Anderson RN Pablo called wondering if his follow up appointment can be switched to a phone visit tomorrow. Please advise. Latisha Rojas LPN documented in this encounter [facility] 05-17-2022 Note Cardiovascular Medic [facility] SUBJECTIVE Chief Complaint Patient presents with [...] cuts himself at work. 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 He denies any changes since last seen [...] 4. Mild tricu (more content not included)... [facility] 05-17-2022 Note Patient here to disc uss possible Watchman device per Dr. Weeks. He is currently taking Eliquis once daily due to easy bleeding. Has not been taking furosemide because he has not had LE edema. Feels good. Denies chest pain and SOB. Review of Systems All other systems reviewed and are negative. [facility] 03-18-2022 Note OPERATIVE NOTE OPERATION DATE: 03/18/2022 [...] in good condition. CC: Lv Heard M.D. [facility] 02-23-2022 Note Cardiology Follow Up Progress Note [...] recent stress. Re (more content not included)... [facility] 12-24-2021 Note Cardiology Follow Up Progress Note [...] fibrillation -Essential hyper (more content not included)... [facility] Evaluation + Plan note No data available for this section [facility] [place] Evaluation note Diagnosis Malignant neoplasm of prostate (HCC)- Primary Malignant neoplasm of prostate [facility] Malignant neoplasm of prostate (HCC)- Primary Malignant neoplasm of prostate [facility] Diagnosis Malignant neoplasm of prostate (HCC)- Primary Malignant neoplasm of prostate documented in this encounter [facility] Discharge instructions No data available for this section [facility] [place] Progress note No data available for this section [facility] [place] Summary Purpose Family History No Family History [...] and content) DATE CREATED AUTHOR 04/15/2021 [facility] DATE CREATED AUTHOR AUTHOR'S ORGANIZ ATION 08/08/2022 [facility] DATE CREATED AUTHOR AUTHOR'S ORGANIZ ATION 08/10/2022 [facility] DATE CREATED AUTHOR AUTHOR'S ORGANIZ ATION 06/16/[address] 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 Start Date End Date Lv Heard MD PCP - General 02/24/09 Head School Custodian Relationship Specialty Start Date End Date Lv Heard MD PCP - General 02/24/09 Source Comments (unrecognize d section and content) In the event this informatio n is protected by the Federal Confidentiality of Alcohol and Drug Abuse Patient Records regulations: The Federal rules restrict any use of the information to criminally investigate or prosecute any alcohol or drug abuse patient.[facility] the event this information is protected by the Federal Confidentiality of Alcohol and Drug Abuse Patient Records regulations: The Federal rules restrict any use of the information to criminally investigate or prosecute any alcohol or drug abuse patient.[facility] the event this information is protected by the Federal Confidentiality of Alcohol and Drug Abuse Patient Records regulations: The Federal rules restrict any use of the information to criminally investigate or prosecute any alcohol or drug abuse patient.[facility] the event this information is protected by the Federal Confidentiality of Alcohol and Drug Abuse Patient Records regulations: The Federal rules restrict any use of the information to criminally investigate or prosecute any alcohol or drug abuse patient.[facility] Reason for Visit (unrecogniz ed section and content) Reason Comments Patient Question Reason Comments Established Patient Specialty Diagnoses / Procedures Referred By Contac t Referred To Contact Radiation Oncology / RADIATION ONCOLOGY Diagnoses Follow-up examination 1 yr follow up, psa at [place] Procedures OFFICE/OUTPATIENT ESTABLISHED MOD MDM 30-39 MIN EST PATIENT Quinton Gonzáles MD [address] [place] [address] [place] [address] uQinton Gonzáles MD [address] [place] [address] [place] [address] Referral ID Status Reason Start Date Expiration Date Visits Re quested Visits Authorized [id number] Open 06/23/2022 09/21/2022 1 0 Reason Comments Future Appointment Reason Comments Results Appointment FOR RECORDS PERTAINING TO PATIENTS WHO [...] BE BASED ON THE PRIMARY CLINICAL RECORDS. [facility]. provides no warranty or guarantee of the accuracy or completeness of information in this document.
[2023-07-12 12:40] LABS: Eosinophils Absolute Auto 0.3 10^3/uL (0.0-0.7); Eosinophils Percent Auto 3.4 % (0.9-7.0); Hematocrit 36.5 % (42.0-54.0); Hemoglobin 11.8 g/dL (14.0-18.0); Immature Granulocytes Abs Auto 0.03 10^3/uL (0.00-0.03); Immature Granulocytes Pct Auto 0.4 % (0.0-0.5); Lymphocytes Absolute Auto 1.4 10^3/uL (1.2-3.8); Lymphocytes Percent Auto 18.3 % (20.5-60.0); Mean Corpuscular HGB Conc 32.3 g/dL (29.9-35.2); Mean Corpuscular Hemoglobin 32.8 pg (25.9-34.0); Mean Corpuscular Volume 101.4 fL (80.0-94.0); Mean Platelet Volume 9.4 fL (9.5-13.5); Monocytes Absolute Auto 0.9 10^3/uL (0.3-0.8); Monocytes Percent Auto 12.1 % (1.7-12.0); Neutrophils Percent Auto 65.8 % (43.0-75.0); Platelet Count 207 10^3/uL (150-450); Red Cell Distribution Width 14.1 % (11.0-15.0); White Blood Count 7.6 10^3/uL (4.0-11.0)
== END 2023-07-12 11:30 | disposition home or self-care (01) ==
LOC: LAB 11:30
PROVIDERS: PCP Family Medicine; Visit Provider Family Medicine
DX: D64.9 Anemia, unspecified (principal)
CPT/HCPCS: 36415; 85025

== ENCOUNTER 2023-12-06 10:11 | Emergency (ER) | payer OTHER, SELFPAY ==
[2023-12-06 10:16] VITALS: BP 124/82; PULSE 62; TEMP 36.8; O2SAT 96; BMI 32.5
--- NOTE | 2023-12-06 10:27 | CT_ITS ---
The [address] [address] Patient Name: PABLO ROBERTS MRN: [id number] date: 1955 Sex: M Assigned Patient Location: ER Current Patient Location: Accession/Order Number: [id number] Exam Date: 12/06/2023 11:16 Report Date: 12/06/2023 11:55 At the request of: YOLIS VILLAR Procedure: CT abdomen pelvis w con CT abdomen pelvis w con, 12/06/2023 11:16 AM EDT INDICATION: LLQ pain COMPARISON: No prior CT the abdomen and pelvis provided for comparison at the time of this dictation TECHNIQUE: Axial images of the abdomen and pelvis were obtained after the administration of IV contrast. Multiplanar reformatted images were generated and reviewed as needed. Dose reduction techniques were achieved by using automated exposure control and/or adjustment of mA and/or kV according to patient size and/or use of iterative reconstruction technique. FINDINGS: Scattered areas of subsegmental atelectasis/scar at the lung bases bilaterally. No effusion. The liver is 19 cm in craniocaudal dimension with diffuse fatty infiltration. Gallbladder, pancreas, spleen and adrenals unremarkable. Symmetric nephrograms without evidence of obstruction. 7 mm dense cortical nodule lower pole of the left kidney. Nonobstructing calculus lower pole of the left kidney. Urinary bladder collapsed. Brachytherapy seeds throughout a normal-sized prostate gland. No aortic aneurysm. No bowel obstruction or acute focal inflammation. Normal appendix. 1.5 cm diverticulum projecting off the gastric fundus. Air-fluid level within 2.2 cm periampullary duodenal diverticulum. Colonic diverticulosis. No pneumatosis, pneumoperitoneum or ascites. No mesenteric or retroperitoneal lymphadenopathy. No acute fracture. Spondylosis. CT/CT abdomen pelvis w con IMPRESSION: 1. No acute findings. 2. Gastric diverticulum, duodenal diverticulum and colonic diverticulosis. No findings to suggest diverticulitis. 3. Subcentimeter dense cortical nodule lower pole the left kidney likely hemorrhagic cyst but cannot be definitively characterized on a single phase contrast-enhanced scan. This may be further evaluated with pre and postcontrast enhanced CT or CT urography if clinically indicated. 4. Nonobstructing left nephrolithiasis. 5. Hepatomegaly with diffuse hepatic steatosis. Electronically authenticated by: JOSEPH FREGOSO Date: 12/06/2023 11:55
--- OUTSIDE RECORDS SUMMARY | 2023-12-06 10:27 | XMS_ITS | CCD ---
Author Organization [facility] Care Team Providers Care Pediatric Surgeon Name Role Phone MAMTA STEPHENSON Attending Unavailable SELF, REFERRED Primary Care Unavailable SELF, REFERRED Referring Unavailable MAMTA STEPHENSON Admitting Unavailable Lv Heard Primary Care Physician Lv Heard MD Primary Care Provider [phone] NILL ., DR CURRY Admitting Unavailable NILL ., DR CURRY Attending Unavailable NILL ., DR CURRY Consulting Unavailable HOY ., DR AWAN Primary Care Unavailable KAYLEEN, STELLA PRINCE Consulting Unava ilable TERI, DR JT Harper [...] Admitting Unavailedward WOOTEN, DR ISIDRO Alcantara Attending Unavailabl e SUGAR, DR ISIDRO Alcantara Consulting Unavailabl e ROBSON ., DR AWAN Primary Care Unavailable PATRICIO ANTON Consulting Unavailable CAMILLE Rosario, DR CURRY Admitting Unavailable CAMILLE Rosario, DR CURRY Attending Unavailable CAMILLE Rosario, DR CURRY Consulting Unavailable ROBSON Rosario, DR AWAN Primary Care Unavailable LV HEARD Primary Care Unavailable Quinton GONZÁLES Referring Unavailable Quinton GONZÁLES Attending Unavailable CUBA PONCE Attending Unavailable MAMTA STEPHENSON Attending Unavailable Medications Current Medications Medication Drug [...] QID, # 120 tab(s), Refills(s) 3, Pharmacy: [id number], 177.8, cm, 03/08/22 15:41:00 EST, Height/Length Dosing, [...] Translations: [Thoracic aortic aneurysm, without rupture] Onset: 2 03-04-2022 Chronic Cancer of prostate (4 sources) Malignant tumor of prostate; Translations: [Malignant neoplasm of prostate] Onset: 3 Chronic Cardiac dysrhythmias (2 sources) Atrial fibrillation; Translations: [Unspecified atrial fibrillation] Onset: 2 03-04-2022 Chronic Cataract (1 source) Cataract 03-04-2022 Chronic Coronary atherosclerosis and other heart disease (1 source) Coronary arteriosclerosis Onset: 2 03-04-2022 Chronic Deficiency and other anemia (1 source) Anemia 10-01-2018 Episodic Deficiency and other anemia (1 source) Iron deficiency anemia 03-08-2022 Episodic Diverticulosis and diverticulitis (3 sources) Diverticula of intestine; Translations: [Diverticulosis of intestine, part unspecified, without perforation or abscess without bleeding] Onset: 2 Chronic Essential hypertension (3 sources) Hypertensive disorder; Translations: [Essential (primary) hypertension] Onset: 2 03-04-2022 Chronic Gastritis and duodenitis (1 source) Unspecified chronic gastritis without bleeding; Translations: [UNS CHRONIC GASTRITIS W/O BLEEDING] Onset: 2 Chronic Gastritis and duodenitis (3 sources) Gastritis; Translations: [Other gastritis without bleeding] Onset: 2 Episodic Gout and other crystal arthropathies (1 source) Gout 03-04-2022 Chronic Hyperplasia of prostate (1 source) Benign prostatic hyperplasia 03-04-2022 Chronic Immunizations and screening for infectious disease (1 source) Raised Helicobacter pylori antibody 03-08-2022 Episodic Nutritional deficiencies (1 source) Vitamin D deficiency, unspecified; Translations: [VITAMIN D DEFICIENCY UNSPECIFIED] Onset: 2 Chronic Osteoarthritis (1 source) Unspecified osteoarthritis, unspecified site; Translations: [UNSPECIFIED OSTEOARTHRITIS UNS SITE] Onset: 2 Chronic Other aftercare (1 source) Long-term current [...] apnea, unspecified; Translations: [SLEEP APNEA UNSPECIFIED] Onset: 2 Chronic Retinal detachments; defects; vascular occlusion; and retinopathy (1 source) Epiretinal membrane 03-04-2022 Chronic Substance-related disorders (2 sources) Smoker; Translations: [Nicotine dependence, cigarettes, uncomplicated] Onset: 2 03-04-2022 Chronic Unclassified (1 source) CONTACT W/AND (SUSP) EXPOS COVID-19; Translations: [CONTACT W/AND (SUSP) EXPOS COVID-19] Onset: 2 Unclassified (1 source) PERSONAL HISTORY OF COVID-19; Translations: [PERSONAL HISTORY OF COVID-19] Onset: Past or Other Problems Problem Classification Problem [...] 06-10-2014 06-10-2014 Episodic Other aftercare (1 source) intermediate card tender (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) use of anticoagulants; Translations: [EXERCISE PHYSIOLOGIST CURRNT USE ANTICOAGULANTS] Onset: 03-24-2022 Episodic Other aftercare (1 source) USP (current) use of aspirin; Translations: [EXERCISE PHYSIOLOGIST CURRENT USE OF ASPIRIN] Onset: 03-24-2022 Episodic Other aftercare (1 source) Other skilled nursing (current) drug therapy; Translations: [OTH INTERMEDIATE CURRENT DRUG THERAPY] Onset: 03-24-2022 Episodic Other [...] Test Name Value Interpretation Reference Range Facility Office Visiton 08-08-2023 Follow-up visit [id number] Hanna Beckman 1955 M Date Provider Department Center 08/08/2023 Domo-MAMTA STEPHENSON CARD [facility] Family History Problem Relation Age of Onset Stroke Mother Family Status - Relation Status Age at Mother Level of Service:67870 CO OFFICE/OUTPATIENT ESTABLISHED MOD [facility] 30 MIN Reason for Visit and Comments: Follow-up [686044] - 1 year Normal [facility] Jason 06-21-2023 [place] Telephone (SUDHAKARA) PABLO BECKMAN ([id number]) 1955 M Date Time Provider Department 06/21/23 Quinton GONZÁLES During your visit today, we recorded the following information about you: Latisha Rojas LPN 06/21/2023 2:46 PM Signed Melvina called to reschedule Mr. Beckman follow up and the call was transferred to nursing to review most recent PSA results. 06/13/23 PSA <0.13 previous 06/02/22 PSA 0.52. Patient is wondering if he needs to have a visit with Dr. Gonzáles this year or can it be rescheduled for one year since PSA results are good. Please advise. TOOTIE Hall, Melvina 06/22/2023 7:10 AM Signed Appts are scheduled thank you. Allergies As of Date: 06/21/2023 (No Known Allergies) Date Reviewed: 06/24/2020 Reviewed by: Kamari July - Fully Assessed Reason for Visit: Results [95] Appointment [186] Primary Visit Diagnosis:Malignant neoplasm of prostate (HCC) [C61] Order(s):PSA/PROSTSPECAG DIAG [SQPSA] Order #: [id number] FUTURE Prescriptions as of 06/22/2023 - valACYclovir [...] Status:Closed by Quinton GONZÁLES on 06/21/23 [facility]15-2023 Lab Reports [id number] Normal [facility] Physician Referralon 024 Physician Referral [id number] [facility] CNPNon 05-23-2023 CNPN Telephone (RADTSA) PABLO BECKMAN ([id number]) 1955 M Date Time Provider Department 05/23/23 Quinton GONZÁLES During your visit today, we recorded the following information about you: Josefina Anderson RN 05/23/2023 9:44 AM Signed PT called in to schedule follow up for this year. He will also need PSA. Please sign pended order and we will fax to [facility]. Josefina Anderson RN Allergies As of Date: 05/23/2023 (No Known Allergies) Date Reviewed: 06/24/2020 Reviewed by: Kamari Felecia - Fully Assessed Reason for Visit: Future Appointment [256] Primary Visit Diagnosis:Malignant neoplasm of prostate (HCC) [C61] Order(s):PSA/PROSTSPECAG DIAG [SQPSA] Order #: [id number] FUTURE Prescriptions as of 05/23/2023 - valACYclovir [...] FRAIRE, MISC Problem List As Of Date 05/23/2023 Noted Resolved Personal history of prostate cancer [Z85.46] 10/31/2013 Radiotherapy follow-up [Z09] 06/10/2014 Encounter Status:Closed by Quinton GONZÁLES on 05/23/23 [facility] Office Visiton 08-09-2022 Follow-up visit [id number] Hanna Beckman 1955 M Date Provider Department Center 08/09/2022 [id number] PONCE TIN Yanez [facility] Family History Problem Relation Age of Onset Stroke Mother Family Status - Relation Status Age at Mother Level of Service:65586 CO OFFICE/OUTPATIENT NEW HIGH MDM 60-74 MINUTES Normal [facility]on SARS-CoV-2 (COVID-19) RNA ISIDRO+probe Ql (Unsp spec) Not detected Normal NOT DETECTED [facility] Comment on above: Result Comment: This test is not yet approved or cleared by the [place] FDA. When there are no FDA-approved or cleared tests available, and other criteria are met, FDA can make tests available under an emergency access mechanism called an Emergency Use Authorization (EUA). The EUA for this test is supported by the Plugging Machine Operator of Health and Human Service's (HHS's) declaration [...] T SH, T7, LIPA, EMILY, CMP #### [facility] [address] [place] [address] Dr. Emely Adrian CBC AUTO DIFFon 03-09-2022 BASO # 0.0 103/ul Normal 0.0-0.1 [facility] Comment on above: Performed By: #### T SH, T7, LIPA, EMILY, CMP #### [facility] [address] [address] [address] Emely Adrian Basophils/100 WBC (Bld) 0.1 % Critically low 0.2-2.0 [facility] Comment on above: Performed By: #### T SH, T7, LIPA, EMILY, CMP #### [facility] [address] [place] [address] Dr. Emely Adrian EO # 0.2 103/ul Normal 0.0-0.7 [facility] Comment on above: Performed By: #### T SH, T7, LIPA, EMILY, CMP #### [facility] [address] [place] [address] Dr. Emely Adrian Eosinophils/100 WBC (Bld) 3.2 % Normal 0.9-7.0 [facility] Comment on above: Performed By: #### T SH, T7, LIPA, EMILY, CMP #### [facility] [address] [place] [address] Dr. Emely Adrian Erythrocyte distribution width (RBC) [Ratio] 15.8 % Critically high 11.0-15.0 [facility] Comment on above: Performed By: #### T SH, T7, LIPA, EMILY, CMP #### [facility] [address] [place] [address] Dr. Emely Adrian Hematocrit (Bld) [Volume fraction] 26.6 % Critically low 42.0-54.0 [facility] Comment on above: Performed By: #### T SH, T7, LIPA, EMILY, CMP #### [facility] [address] [place] [address] Dr. Emely Adrian Hemoglobin (Bld) [Mass/Vol] 9.0 g/dL Critically low 14.0-18.0 [facility] Comment on above: Performed By: #### T SH, T7, LIPA, EMILY, CMP #### [facility] [address] [place] [address] Dr. Emely Adrian IG # 0.05 10e3/ul Critically high 0.00-0.03 [facility] Comment on above: Performed By: #### T SH, T7, LIPA, EMILY, CMP #### [facility] [address] [place] [address] Dr. Emely Adrian IG % 0.7 % Critically high 0.0-0.5 [facility] Comment on above: Performed By: #### T SH, T7, LIPA, EMILY, CMP #### [facility] [address] [place] [address] Dr. Emely Adrian LYMPH # 1.8 103/ul Normal 1.2-3.8 [facility] Comment on above: Performed By: #### T SH, T7, LIPA, EMILY, CMP #### [facility] [address] [place] [address] Dr. Emely Adrian Lymphocytes/100 WBC (Bld) 24.2 % Normal 20.5-60.0 [facility] Comment on above: Performed By: #### T SH, T7, LIPA, EMILY, CMP #### [facility] [address] [place] [address] Dr. Emely Adrian MANUAL DIFF REQ NO Normal [facility] Comment on above: Performed By: #### T SH, T7, LIPA, EMILY, CMP #### [facility] [address] [place] [address] Dr. Emely Adrian MCH (RBC) [Entitic mass] 32.7 pg Normal 25.9-34.0 [facility] Comment on above: Performed By: #### T SH, T7, LIPA, EMILY, CMP #### [facility] [address] [place] [address] Dr. Emely Adrian MCHC (RBC) [Mass/Vol] 33.8 g/dL Normal 29.9-35.2 [facility] Comment on above: Performed By: #### T SH, T7, LIPA, EMILY, CMP #### [facility] [address] [place] [address] Dr. Emely Adrian MCV (RBC) [Entitic vol] 96.7 fL Critically high 80.0-94.0 [facility] Comment on above: Performed By: #### T SH, T7, LIPA, EMILY, CMP #### [facility] [address] [place] [address] Dr. Emely Adrian MONO # 1.3 103/ul Critically high 0.3-0.8 [facility] Comment on above: Performed By: #### T SH, T7, LIPA, EMILY, CMP #### [facility] [address] [place] [address] Dr. Emely Adrian Monocytes/100 WBC (Bld) 18.0 % Critically high 1.7-12.0 [facility] Comment on above: Performed By: #### T SH, T7, LIPA, EMILY, CMP #### [facility] [address] [place] [address] Dr. Emely Adrian NEUT # 4.0 103/ul Normal 1.4-6.5 [facility] Comment on above: Performed By: #### T SH, T7, LIPA, EMILY, CMP #### [facility] [address] [place] [address] Dr. Emely Adrian Neutrophils/100 WBC (Bld) 53.8 % Normal 43.0-75.0 [facility] Comment on above: Performed By: #### T SH, T7, LIPA, EMILY, CMP #### [facility] [address] [place] [address] Dr. Emely Adrian Platelet mean volume (Bld) [Entitic vol] 8.7 fL Critically low 9.5-13.5 [facility] Comment on above: Performed By: #### T SH, T7, LIPA, EMILY, CMP #### [facility] [address] [place] [address] Dr. Emely Adrian PLT 320 103/ul Normal 150-450 [facility] Comment on above: Performed By: #### T SH, T7, LIPA, EMILY, CMP #### [facility] [address] [place] [address] Dr. Emely Adrian RBC 2.75 106/ul Critically low 4.70-6.10 [facility] Comment on above: Performed By: #### T SH, T7, LIPA, EMILY, CMP #### [facility] [address] [place] [address] Dr. Emely Adrian WBC 7.5 103/ul Normal 4.0-11.0 [facility] Comment on above: Performed By: #### T SH, T7, LIPA, EMILY, CMP #### [facility] [address] [place] [address] Dr. Emely Adrian LACTATE/LACTIC ACIDon 2021 Lactate [Moles/Vol] 0.7 mmol/L Normal 0.4-1.9 [facility] Comment on above: Performed By: #### T SH, T7, LIPA, EMILY, CMP #### [facility] [address] [place] [address] Dr. Emely Adrian LIPASEon 03-09-2022 Lipase [Catalytic activity/Vol] 386.0 U/L Normal 73.0-393.0 [facility] Comment on above: Performed By: #### C BC #### [facility] [address] [place] [address] Dr. Emely Adrian PROF 14(COMP METB)on 022 Albumin [Mass/Vol] 2.9 g/dL Critically low 3.4-5.0 [facility] Comment on above: Performed By: #### C MP #### [facility] [address] [place] [address] Dr. Emely Adrian Albumin/Globulin [Mass ratio] 0.7 {ratio} Normal [facility] Comment on above: Performed By: #### C MP #### [facility] [address] [place] [address] Dr. Emely Adrian ALP [Catalytic activity/Vol] 43 U/L Critically low 46-116 [facility] Comment on above: Performed By: #### C MP #### [facility] [address] [place] [address] Dr. Emely Adrian ALT [Catalytic activity/Vol] 23 U/L Normal 16-63 [facility] Comment on above: Performed By: #### C MP #### [facility] [address] [place] [address] Dr. Emely Adrian Anion gap [Moles/Vol] 13.4 mmol/L Normal [facility] Comment on above: Performed By: #### C MP #### [facility] [address] [place] [address] Dr. Emely Adrian AST [Catalytic activity/Vol] 21 U/L Normal 15-37 [facility] Comment on above: Performed By: #### C MP #### [facility] [address] [place] [address] Dr. Emely Adrian Bilirubin [Mass/Vol] 0.4 mg/dL Normal 0.2-1.0 [facility] Comment on above: Performed By: #### C MP #### [facility] [address] [address] [address] Emely Adrian Calcium [Mass/Vol] 8.3 mg/dL Critically low 8.5-10.1 [facility] Comment on above: Performed By: #### C MP #### [facility] [address] [address] [address] Emely Adrian Chloride [Moles/Vol] 104 mmol/L Normal 98-107 [facility] Comment on above: Performed By: #### C MP #### [facility] [address] [place] [address] Dr. Emely Adrian CO2 [Moles/Vol] 22.9 mmol/L Normal 21.0-32.0 [facility] Comment on above: Performed By: #### C MP #### [facility] [address] [address] [address] Emely Adrian Creatinine [Mass/Vol] 1.80 mg/dL Critically high 0.70-1.30 [facility] Comment on above: Performed By: #### C MP #### [facility] [address] [place] [address] Dr. Emely Adrian EGFR-AF TAJIK 46 mL/min/1.73m2 Critically low >=60 [facility] Comment on above: Performed By: #### C MP #### [facility] [address] [address] [address] Emely Adrian EGFR-NON AF TAJIK 38 mL/min/1.73m2 Critically low >=60 [facility] Comment on above: Performed By: #### C MP #### [facility] [address] [place] [address] Dr. Emely Adrian Globulin (S) [Mass/Vol] 4.3 g/dL Normal [facility] Comment on above: Performed By: #### C MP #### [facility] [address] [address] [address] Emely Adrian Glucose [Mass/Vol] 105 mg/dL Normal 74-106 [facility] Comment on above: Performed By: #### C MP #### [facility] [address] [address] [address] Emely Adrian Potassium [Moles/Vol] 4.3 mmol/L Normal 3.5-5.1 [facility] Comment on above: Performed By: #### C MP #### [facility] [address] [address] [address] Emely Adrian Protein [Mass/Vol] 7.2 g/dL Normal 6.4-8.2 [facility] Comment on above: Performed By: #### C MP #### [facility] [address] [place] [address] Dr. Emely Adrian Sodium [Moles/Vol] 136 mmol/L Normal 136-145 [facility] Comment on above: Performed By: #### C MP #### [facility] [address] [address] [address] Emely Adrian Urea nitrogen [Mass/Vol] 35.0 mg/dL Critically high 7.0-18.0 [facility] Comment on above: Performed By: #### C MP #### [facility] [address] [place] [address] Dr. Emely Adrian Urea nitrogen/Creatinin e [Mass ratio] 19.4 mg/mg Normal [facility] Comment on above: Performed By: #### C MP #### [facility] [address] [place] [address] Dr. Emely Adrian PROTIMEon 03-09-2022 INR Coag (PPP) [Relative time] 1.12 {INR} Normal [facility] Comment on above: Performed By: #### P TT, PT #### [facility] [address] [place] [address] Dr. Emely Adrian INR GUIDELINES SEE BELOW Normal [facility] Comment on above: Result Comment: DUSTIN RED INR: 2.0 - 3.0 CONDITIONS NOT LISTED BELOW 2.5 - 3.5 FOR PROSTHETIC HEART VALVE REPLACEMENT 2.5 - 3.5 RECURRENT THROMBOSIS Performed By: #### P TT, PT #### [facility] [address] [address] [address] Emely Adrian PT Coag (PPP) [Time] 12.0 s Critically high 9.0-11.6 [facility] Comment on above: Performed By: #### P TT, PT #### [facility] [address] [address] [address] Emely Adrian PTTon 03-09-2022 aPTT Coag (Bld) [Time] 32.1 s Normal 22.3-36.2 [facility] Comment on above: Performed By: #### P TT, PT #### [facility] [address] [place] [address] Dr. Emely Adrian TROPONIN, HIGH SENSITIVITYon 03-09-2022 HSTROP 12.0 pg/mL Normal 4.0-76.1 [facility] Comment on above: Result Comment: CUT- OFF POINTS HAVE BEEN ESTABLISHED BASED ON THE FOURTH UNIVERSAL DEFINITIONS OF MYOCARDIAL INFARCTION. THE UPPER REFERENCE LIMIT (URL) OF TROPONIN, DEFINED THE 99TH PERCENTILE OF cTnI DISTRIBUTION IN A REFERENCE POPULATION, HAS BEEN CONFIRMED THE DECISION THRESHOLD FOR DE DIAGNOSIS. Performed By: #### T SH, T7, LIPA, EMILY, CMP #### [facility] [address] [place] [address] Dr. Emely Adrian TYPE AND SCREENon 03-09-2022 TYPE AND SCREEN Negative Normal [facility] Comment on above: Performed By: #### T SH, T7, LIPA, EMILY, CMP #### [facility] [address] [place] [address] Dr. Emely Adrian XR CHEST 1 Von [...] PATRICIO ANTON Date: 2022-03-09 10:17 Normal [facility] CA 19-9on 02-26-2022 CA 19-9 4 U/mL Normal 0-35 [facility] Comment on above: Result Comment: [employer] Electrochemiluminescence Immunoassay (ECLIA) . Values obtained with different assay methods or kits cannot be used interchangeably. Results cannot be interpreted as absolute evidence of the presence or absence of malignant disease. Performed By: #### T SH, T7, LIPA, EMILY, CMP #### [facility] [address] [place] [address] Dr. Emely Adrian CEAon 02-26-2022 CEA 1.9 ng/mL Normal 0.0-4.7 [facility] Comment on above: Result Comment: Nons mokers <3.9 Smokers <5.6 . [employer] Electrochemiluminescence Immunoassay (ECLIA) . Values obtained with different assay methods or kits cannot be used interchangeably. Results cannot be interpreted as absolute evidence of the presence or absence of malignant disease. Performed By: #### T SH, T7, LIPA, EMILY, CMP #### [facility] [address] [place] [address] Dr. Emely Adrian H PYLORI ANTIBODY IGGon 02-08 H. PYLORI IGG ABS 1.19 Index Value Critically high 0.00-0. 79 [facility] Comment on above: Result Comment: Nega tive <0.80 Equivocal 0.80 - 0.89 Positive >0.89 Performed By: #### C BC #### [facility] [address] [place] [address] Dr. Emely Adrian AMYLASEon 02-25-2022 Amylase [Catalytic activity/Vol] 118 U/L Critically high 25-115 [facility] Comment on above: Performed By: #### T SH, T7, LIPA, EMILY, CMP #### [facility] [address] [place] [address] Dr. Emely Adrian CBC AUTO DIFFon 02-25-2022 BASO # 0.0 103/ul Normal 0.0-0.1 [facility] Comment on above: Performed By: #### T SH, T7, LIPA, EMILY, CMP #### [facility] [address] [place] [address] Dr. Emely Adrian Basophils/100 WBC (Bld) 0.2 % Normal 0.2-2.0 [facility] Comment on above: Performed By: #### T SH, T7, LIPA, EMILY, CMP #### [facility] [address] [place] [address] Dr. Emely Adrian EO # 0.1 103/ul Normal 0.0-0.7 [facility] Comment on above: Performed By: #### T SH, T7, LIPA, EMILY, CMP #### [facility] [address] [place] [address] Dr. Emely Adrian Eosinophils/100 WBC (Bld) 2.8 % Normal 0.9-7.0 [facility] Comment on above: Performed By: #### T SH, T7, LIPA, EMILY, CMP #### [facility] [address] [place] [address] Dr. Emely Adrian Erythrocyte distribution width (RBC) [Ratio] 15.6 % Critically high 11.0-15.0 [facility] Comment on above: Performed By: #### T SH, T7, LIPA, EMILY, CMP #### [facility] [address] [place] [address] Dr. Emely Adrian Hematocrit (Bld) [Volume fraction] 28.9 % Critically low 42.0-54.0 [facility] Comment on above: Performed By: #### T SH, T7, LIPA, EMILY, CMP #### [facility] [address] [place] [address] Dr. Emely Adrian Hemoglobin (Bld) [Mass/Vol] 9.5 g/dL Critically low 14.0-18.0 [facility] Comment on above: Performed By: #### T SH, T7, LIPA, EMILY, CMP #### [facility] [address] [place] [address] Dr. Emely Adrian IG # 0.04 10e3/ul Critically high 0.00-0.03 [facility] Comment on above: Performed By: #### T SH, T7, LIPA, EMILY, CMP #### [facility] [address] [place] [address] Dr. Emely Adrian IG % 0.9 % Critically high 0.0-0.5 [facility] Comment on above: Performed By: #### T SH, T7, LIPA, EMILY, CMP #### [facility] [address] [place] [address] Dr. Emely Adrian LYMPH # 1.3 103/ul Normal 1.2-3.8 [facility] Comment on above: Performed By: #### T SH, T7, LIPA, EMILY, CMP #### [facility] [address] [place] [address] Dr. Emely Adrian Lymphocytes/100 WBC (Bld) 29.6 % Normal 20.5-60.0 [facility] Comment on above: Performed By: #### T SH, T7, LIPA, EMILY, CMP #### [facility] [address] [place] [address] Dr. Emely Adrian MANUAL DIFF REQ NO Normal [facility] Comment on above: Performed By: #### T SH, T7, LIPA, EMILY, CMP #### [facility] [address] [place] [address] Dr. Emely Adrian MCH (RBC) [Entitic mass] 32.1 pg Normal 25.9-34.0 [facility] Comment on above: Performed By: #### T SH, T7, LIPA, EMILY, CMP #### [facility] [address] [place] [address] Dr. Emely Adrian MCHC (RBC) [Mass/Vol] 32.9 g/dL Normal 29.9-35.2 [facility] Comment on above: Performed By: #### T SH, T7, LIPA, EMILY, CMP #### [facility] [address] [place] [address] Dr. Emely Adiran MCV (RBC) [Entitic vol] 97.6 fL Critically high 80.0-94.0 [facility] Comment on above: Performed By: #### T SH, T7, LIPA, EMILY, CMP #### [facility] [address] [place] [address] Dr. Emely Adrian MONO # 0.8 103/ul Normal 0.3-0.8 [facility] Comment on above: Performed By: #### T SH, T7, LIPA, EMILY, CMP #### [facility] [address] [place] [address] Dr. Emely Adrian Monocytes/100 WBC (Bld) 17.2 % Critically high 1.7-12.0 [facility] Comment on above: Performed By: #### T SH, T7, LIPA, EMILY, CMP #### [facility] [address] [place] [address] Dr. Emely Adrian NEUT # 2.2 103/ul Normal 1.4-6.5 [facility] Comment on above: Performed By: #### T SH, T7, LIPA, EMILY, CMP #### [facility] [address] [place] [address] Dr. Emely Adrian Neutrophils/100 WBC (Bld) 49.3 % Normal 43.0-75.0 [facility] Comment on above: Performed By: #### T SH, T7, LIPA, EMILY, CMP #### [facility] [address] [place] [address] Dr. Emely Adrian Platelet mean volume (Bld) [Entitic vol] 9.2 fL Critically low 9.5-13.5 [facility] Comment on above: Performed By: #### T SH, T7, LIPA, EMILY, CMP #### [facility] [address] [place] [address] Dr. Emely Adiran PLT 259 103/ul Normal 150-450 [facility] Comment on above: Performed By: #### T SH, T7, LIPA, EMILY, CMP #### [facility] [address] [place] [address] Dr. Emely Adrian RBC 2.96 106/ul Critically low 4.70-6.10 [facility] Comment on above: Performed By: #### T SH, T7, LIPA, EMILY, CMP #### [facility] [address] [place] [address] Dr. Emely Adrian WBC 4.4 103/ul Normal 4.0-11.0 [facility] Comment on above: Performed By: #### T SH, T7, LIPA, EMILY, CMP #### [facility] [address] [place] [address] Dr. Emely Adrian FREE THYROXINE INDEX T7on FTI 1.80 Normal 1.30-4.50 [facility] Comment on above: Performed By: #### T SH, T7, LIPA, EMILY, CMP #### [facility] [address] [place] [address] Dr. Emely Adrian T3U 34.0 % Normal 33.0-40.0 [facility] Comment on above: Performed By: #### T SH, T7, LIPA, EMILY, CMP #### [facility] [address] [place] [address] Dr. Emely Adrian T4 [Mass/Vol] 5.30 ug/dL Normal 4.50-12.10 [facility] Comment on above: Performed By: #### T SH, T7, LIPA, EMILY, CMP #### [facility] [address] [place] [address] Dr. Emely Adrian GI PANEL (PCR)on 02-25-2022 Adenovirus F 40/41 Not detected Normal NOT DETECTED [facility] Comment on above: Performed By: #### G IPANEL #### [facility] [address] [place] [address] Dr. Emely Adrian Astrovirus Not detected Normal NOT DETECTED [facility] Comment on above: Performed By: #### G IPANEL #### [facility] [address] [place] [address] Dr. Emely Adrian C. Diff toxin A/B Not detected Normal NOT DETECTED [facility] Comment on above: Performed By: #### G IPANEL #### [facility] [address] [place] [address] Dr. Emely Adrian Campylobacter Not detected Normal NOT DETECTED [facility] Comment on above: Performed By: #### G IPANEL #### [facility] [address] [place] [address] Dr. Emely Adrian Cryptosporidium Not detected Normal NOT DETECTED [facility] Comment on above: Performed By: #### G IPANEL #### [facility] [address] [address] [address] Emely Adrian Cyclos. Cayetanensis Not detected Normal NOT DETECTED [facility] Comment on above: Performed By: #### G IPANEL #### [facility] [address] [address] [address] Emely Adrian E. Coli O157 Not Applicable Normal Not Applicable [facility] Comment on above: Performed By: #### G IPANEL #### [facility] [address] [address] [address] Emely Adrian E. histolytica Not detected Normal NOT DETECTED [facility] Comment on above: Performed By: #### G IPANEL #### [facility] [address] [place] [address] Dr. Emely Adrian EAEC Not detected Normal NOT DETECTED [facility] Comment on above: Performed By: #### G IPANEL #### [facility] [address] [address] [address] Emely Adrian EIEC Not detected Normal NOT DETECTED [facility] Comment on above: Performed By: #### G IPANEL #### [facility] [address] [place] [address] Dr. Emely Adrian EPEC Not detected Normal NOT DETECTED [facility] Comment on above: Performed By: #### G IPANEL #### [facility] [address] [address] [address] Emely Adrian ETEC Not detected Normal NOT DETECTED [facility] Comment on above: Performed By: #### G IPANEL #### [facility] [address] [address] [address] Emely Alcantara. Lamblia Not detected Normal NOT DETECTED [facility] Comment on above: Performed By: #### G IPANEL #### [facility] [address] [place] [address] Dr. Emely Adrian GIPANEL CONTROLS PASSED Normal [facility] Comment on above: Performed By: #### G IPANEL #### [facility] [address] [address] [address] Emley RODRIGUEZ [facility] HEADER GI PANEL BACTERIA Normal [facility] Comment on above: Performed By: #### G IPANEL #### [facility] [address] [place] [address] Dr. Emely KAHN ECOLI GI PANEL DIARRHEAGEN IC E.COLI / SHIGELLA Normal [facility] Comment on above: Performed By: #### G IPANEL #### [facility] [address] [place] [address] Dr. Emely KAHN INFO SEE BELOW Normal [facility] Comment on above: Result Comment: EAEC - Enteroaggregative E. Coli EPEC- Enteropathogenic E. Coli ETEC- Enterotoxigenic E. Coli lt/st STEC- Shigella-like toxin-producing E. Coli stx1/stx2 EIEC- Shigella/Enteroinvasive E. Coli Performed By: #### G IPANEL #### [facility] [address] [place] [address] Dr. Emely KAHN PARASITES GI PANEL PARASITES Normal [facility] Comment on above: Performed By: #### G IPANEL #### [facility] [address] [place] [address] Dr. Emely KAHN VIRUS GI PANEL VIRUSES Normal [facility] Comment on above: Performed By: #### G IPANEL #### [facility] [address] [place] [address] Dr. Emely Adrian Norovirus GI/GII Not detected Normal NOT DETECTED [facility] Comment on above: Performed By: #### G IPANEL #### [facility] [address] [place] [address] Dr. Emely Adrian P. Shigelloides Not detected Normal NOT DETECTED [facility] Comment on above: Performed By: #### G IPANEL #### [facility] [address] [place] [address] Dr. Emely Adrian Rotavirus A Not detected Normal NOT DETECTED [facility] Comment on above: Performed By: #### G IPANEL #### [facility] [address] [place] [address] Dr. Emely Adrian Salmonella Not detected Normal NOT DETECTED [facility] Comment on above: Performed By: #### G IPANEL #### [facility] [address] [place] [address] Dr. Emely Adrian Sapovirus Not detected Normal NOT DETECTED [facility] Comment on above: Performed By: #### G IPANEL #### [facility] [address] [place] [address] Dr. Emely Adrian STEC Not detected Normal NOT DETECTED [facility] Comment on above: Performed By: #### G IPANEL #### [facility] [address] [place] [address] Dr. Emely Adrian Vibrio Not detected Normal NOT DETECTED [facility] Comment on above: Performed By: #### G IPANEL #### [facility] [address] [place] [address] Dr. Emely Adrian Vibrio Cholera Not detected Normal NOT DETECTED [facility] Comment on above: Performed By: #### G IPANEL #### [facility] [address] [place] [address] Dr. Emely Adrian Y. Enterocolitica Not detected Normal NOT DETECTED [facility] Comment on above: Performed By: #### G IPANEL #### [facility] [address] [place] [address] Dr. Emely Adrian GLYCOHEMOGLOBIN A1Con 2021 ADA RECOMMENDATION SEE BELOW Normal [facility] Comment on above: Result Comment: ADA RECOMMENDED LIMIT 4.0 - 6.0 ADA THERAPEUTIC TARGET < 7.0 ACTION SUGGESTED > 7.0 Performed By: #### T SH, T7, LIPA, EMILY, CMP #### [facility] [address] [place] [address] Dr. Emely Adrian Glucose [Mass/Vol] 120 mg/dL Normal [facility] Comment on above: Performed By: #### T SH, T7, LIPA, EMIYL, CMP #### [facility] [address] [place] [address] Dr. Emely Adrian HbA1c (Bld) [Mass fraction] 5.8 % Normal 4.5-6.2 [facility] Comment on above: Performed By: #### T SH, T7, LIPA, EMILY, CMP #### [facility] [address] [place] [address] Dr. Emely Adrian IRONon 02-25-2022 Iron [Mass/Vol] 55.0 ug/dL Critically low 65.0-175.0 [facility] Comment on above: Performed By: #### C BC #### [facility] [address] [place] [address] Dr. Emely Adrian LIPASEon 02-25-2022 Lipase [Catalytic activity/Vol] 671.0 U/L Critically high 73.0-393.0 [facility] Comment on above: Performed By: #### T SH, T7, LIPA, EMILY, CMP #### [facility] [address] [place] [address] Dr. Emely Adrian OCC BLD IMMUNO SCREENon 02-08 OCCULT BLOOD Positive Abnormal NEGATIVE [facility] Comment on above: Performed By: #### T SH, T7, LIPA, EMILY, CMP #### [facility] [address] [place] [address] Dr. Emely Adrian PROF 14(COMP METB)on 022 Albumin [Mass/Vol] 3.0 g/dL Critically low 3.4-5.0 [facility] Comment on above: Performed By: #### T SH, T7, LIPA, EMILY, CMP #### [facility] [address] [place] [address] Dr. Emely Adrian Albumin/Globulin [Mass ratio] 0.8 {ratio} Normal [facility] Comment on above: Performed By: #### T SH, T7, LIPA, EMILY, CMP #### [facility] [address] [place] [address] Dr. Emely Adrian ALP [Catalytic activity/Vol] 58 U/L Normal 46-116 [facility] Comment on above: Performed By: #### T SH, T7, LIPA, EMILY, CMP #### [facility] [address] [place] [address] Dr. Emely Adrian ALT [Catalytic activity/Vol] 25 U/L Normal 16-63 [facility] Comment on above: Performed By: #### T SH, T7, LIPA, EMILY, CMP #### [facility] [address] [place] [address] Dr. Emely Adrian Anion gap [Moles/Vol] 12.1 mmol/L Normal [facility] Comment on above: Performed By: #### T SH, T7, LIPA, EMILY, CMP #### [facility] [address] [place] [address] Dr. Emely Adrian AST [Catalytic activity/Vol] 20 U/L Normal 15-37 [facility] Comment on above: Performed By: #### T SH, T7, LIPA, EMILY, CMP #### [facility] [address] [place] [address] Dr. Emely Adrian Bilirubin [Mass/Vol] 0.2 mg/dL Normal 0.2-1.0 [facility] Comment on above: Performed By: #### T SH, T7, LIPA, EMILY, CMP #### [facility] [address] [place] [address] Dr. Emely Adrian Calcium [Mass/Vol] 8.3 mg/dL Critically low 8.5-10.1 [facility] Comment on above: Performed By: #### T SH, T7, LIPA, EMILY, CMP #### [facility] [address] [place] [address] Dr. Emely Adrian Chloride [Moles/Vol] 108 mmol/L Critically high 98-107 [facility] Comment on above: Performed By: #### T SH, T7, LIPA, EMILY, CMP #### [facility] [address] [place] [address] Dr. Emely Adrian CO2 [Moles/Vol] 24.5 mmol/L Normal 21.0-32.0 [facility] Comment on above: Performed By: #### T SH, T7, LIPA, EMILY, CMP #### [facility] [address] [place] [address] Dr. Emely Adrian Creatinine [Mass/Vol] 0.97 mg/dL Normal 0.70-1.30 [facility] Comment on above: Performed By: #### T SH, T7, LIPA, EMILY, CMP #### [facility] [address] [place] [address] Dr. Emely Adrian EGFR-AF TAJIK >60 Normal >=60 [facility] Comment on above: Performed By: #### T SH, T7, LIPA, EMILY, CMP #### [facility] [address] [place] [address] Dr. Emely Adrian EGFR-NON AF TAJIK >60 Normal >=60 [facility] Comment on above: Performed By: #### T SH, T7, LIPA, EMILY, CMP #### [facility] [address] [place] [address] Dr. Emely Adrian Globulin (S) [Mass/Vol] 3.8 g/dL Normal [facility] Comment on above: Performed By: #### T SH, T7, LIPA, EMILY, CMP #### [facility] [address] [place] [address] Dr. Emely Adrian Glucose [Mass/Vol] 97 mg/dL Normal 74-106 [facility] Comment on above: Performed By: #### T SH, T7, LIPA, EMILY, CMP #### [facility] [address] [place] [address] Dr. Emely Adrian Potassium [Moles/Vol] 4.6 mmol/L Normal 3.5-5.1 [facility] Comment on above: Performed By: #### T SH, T7, LIPA, EMILY, CMP #### [facility] [address] [place] [address] Dr. Emely Adrian Protein [Mass/Vol] 6.8 g/dL Normal 6.4-8.2 [facility] Comment on above: Performed By: #### T SH, T7, LIPA, EMILY, CMP #### [facility] [address] [place] [address] Dr. Emely Adrian Sodium [Moles/Vol] 140 mmol/L Normal 136-145 [facility] Comment on above: Performed By: #### T SH, T7, LIPA, EMILY, CMP #### [facility] [address] [place] [address] Dr. Emely Adrian Urea nitrogen [Mass/Vol] 20.0 mg/dL Critically high 7.0-18.0 [facility] Comment on above: Performed By: #### T SH, T7, LIPA, EMILY, CMP #### [facility] [address] [place] [address] Dr. Emely Adrian Urea nitrogen/Creatinin e [Mass ratio] 20.6 mg/mg Normal [facility] Comment on above: Performed By: #### T SH, T7, LIPA, EMILY, CMP #### [facility] [address] [place] [address] Dr. Emely Adrian TSHon 02-25-2022 TSH 1.247 uIU/mL Normal 0.358-3.740 [facility] Comment on above: Performed By: #### T BASIM, T7, LIPA, EMILY, CMP #### [facility] [address] [place] [address] Dr. Emely Adrian VITAMIN D 25 OHon 02-25-2022 VIT D 25-OH 23.9 ng/mL Normal [facility] Comment on above: Performed By: #### C BC #### [facility] [address] [place] [address] Dr. Emely Adrian VIT D RANGES SEE BELOW Normal [facility] Comment on above: Result Comment: <20 ng/mL Vit D deficient 20 - <30 ng/mL Vit D insufficient 30 - 100 ng/mL Vit D sufficient >100 ng/mL Potential Toxicity Performed By: #### C BC #### [facility] [address] [place] [address] Dr. Emely Adrian CREATININEon 12-30-2021 Creatinine [Mass/Vol] 1.21 mg/dL Normal 0.70-1.30 [facility] Comment on above: Performed By: #### T SH, T7, LIPA, EMILY, CMP #### [facility] [address] [place] [address] Dr. Emely Adrian EGFR-AF TAJIK >60 Normal >=60 [facility] Comment on above: Performed By: #### T SH, T7, LIPA, EMILY, CMP #### [facility] [address], [place] [address] Dr. Emely Adrian EGFR-NON AF TAJIK =60 Normal >=60 [facility] Comment on above: Performed By: #### T SH, T7, LIPA, EMILY, CMP #### [facility] [address], [place] [address] CHEST WO W [...] by: KIRK CRUZ Date: 2021-12-30 08:46 Normal [facility] NM STRESS/REST MULTIon 11-09 NM STRESS/REST MULTI Patient: PABLO BECKMAN Exam Date: 11/09/2021 : 1955 Gender:M Ordering : DR LV HEARD . Admission #: [id number] Family : Order #: [id number] CLICK HERE TO VIEW EXAM RADIOLOGY REPORT [...] M.D. on 11/09/2021 at 14:17 Normal [facility] CARDIAC PHILIP 3-6on 2 CK [Catalytic activity/Vol] 114 U/L Normal 39-308 [facility] Comment on above: Performed By: #### T SH, T7, LIPA, EMILY, CMP #### [facility] [address] [address] [address] Emely Adrian CK.MB [Mass/Vol] 1.75 ng/mL Normal <=3.60 [facility] Comment on above: Performed By: #### T SH, T7, LIPA, EMILY, CMP #### [facility] [address] [address] [address] Emely Adrian HSTROP 10.8 pg/mL Normal 4.0-76.1 [facility] Comment on above: Result Comment: CUT- OFF POINTS HAVE BEEN ESTABLISHED BASED ON THE FOURTH UNIVERSAL DEFINITIONS OF MYOCARDIAL INFARCTION. THE UPPER REFERENCE LIMIT (URL) OF TROPONIN, DEFINED THE 99TH PERCENTILE OF cTnI DISTRIBUTION IN A REFERENCE POPULATION, HAS BEEN CONFIRMED THE DECISION THRESHOLD FOR DE DIAGNOSIS. Performed By: #### T SH, T7, LIPA, EMILY, CMP #### [facility] [address] [place] [address] Dr. Emely Adrian CK [Catalytic activity/Vol] 122 U/L Normal 39-308 [facility] Comment on above: Performed By: #### T SH, T7, LIPA, EMILY, CMP #### [facility] [address] [place] [address] Dr. Emely GRANT.MB [Mass/Vol] 2.59 ng/mL Normal <=3.60 [facility] Comment on above: Performed By: #### T SH, T7, LIPA, EMILY, CMP #### [facility] [address] [place] [address] Dr. Emely Adrian HSTROP 10.5 pg/mL Normal 4.0-76.1 [facility] Comment on above: Result Comment: CUT- OFF POINTS HAVE BEEN ESTABLISHED BASED ON THE FOURTH UNIVERSAL DEFINITIONS OF MYOCARDIAL INFARCTION. THE UPPER REFERENCE LIMIT (URL) OF TROPONIN, DEFINED THE 99TH PERCENTILE OF cTnI DISTRIBUTION IN A REFERENCE POPULATION, HAS BEEN CONFIRMED THE DECISION THRESHOLD FOR DE DIAGNOSIS. Performed By: #### T SH, T7, LIPA, EMILY, CMP #### [facility] [address] [place] [address] Dr. Emely Adrian CK [Catalytic activity/Vol] 130 U/L Normal 39-308 [facility] Comment on above: Performed By: #### C BC #### [facility] [address] [place] [address] Dr. Emely GRANT.MB [Mass/Vol] 2.10 ng/mL Normal <=3.60 [facility] Comment on above: Performed By: #### C BC #### [facility] [address] [place] [address] Dr. Yilan Adrian HSTROP 10.2 pg/mL Normal 4.0-76.1 [facility] Comment on above: Result Comment: CUT- OFF POINTS HAVE BEEN ESTABLISHED BASED ON THE FOURTH UNIVERSAL DEFINITIONS OF MYOCARDIAL INFARCTION. THE UPPER REFERENCE LIMIT (URL) OF TROPONIN, DEFINED THE 99TH PERCENTILE OF cTnI DISTRIBUTION IN A REFERENCE POPULATION, HAS BEEN CONFIRMED THE DECISION THRESHOLD FOR DE DIAGNOSIS. Performed By: #### C BC #### [facility] [address] [place] [address] Dr. Emely Adrian CARDIAC PHILIP ADMITon 022 CK [Catalytic activity/Vol] 164 U/L Normal 39-308 [facility] Comment on above: Performed By: #### C BC #### [facility] [address] [place] [address] Dr. Emely Adrian CK.MB [Mass/Vol] 3.38 ng/mL Normal <=3.60 [facility] Comment on above: Performed By: #### C BC #### [facility] [address] [place] [address] Dr. Emely Adrian HSTROP 9.5 pg/mL Normal 4.0-76.1 [facility] Comment on above: Result Comment: CUT- OFF POINTS HAVE BEEN ESTABLISHED BASED ON THE FOURTH UNIVERSAL DEFINITIONS OF MYOCARDIAL INFARCTION. THE UPPER REFERENCE LIMIT (URL) OF TROPONIN, DEFINED THE 99TH PERCENTILE OF cTnI DISTRIBUTION IN A REFERENCE POPULATION, HAS BEEN CONFIRMED THE DECISION THRESHOLD FOR DE DIAGNOSIS. Performed By: #### C BC #### [facility] [address] [place] [address] Dr. Emely Adrian ADY 124 ng/mL Critically high 16-96 [facility] Comment on above: Performed By: #### C BC #### [facility] [address] [place] [address] Dr. Emely Adrian CBC AUTO DIFFon 10-27-2021 BASO # 0.0 103/ul Normal 0.0-0.1 [facility] Comment on above: Performed By: #### C BC #### [facility] [address] [place] [address] Dr. Emely Adrian Basophils/100 WBC (Bld) 0.1 % Critically low 0.2-2.0 [facility] Comment on above: Performed By: #### C BC #### [facility] [address] [place] [address] Dr. Emely Adrian EO # 0.3 103/ul Normal 0.0-0.7 [facility] Comment on above: Performed By: #### C BC #### [facility] [address] [place] [address] Dr. Emely Adrian Eosinophils/100 WBC (Bld) 3.2 % Normal 0.9-7.0 [facility] Comment on above: Performed By: #### C BC #### [facility] [address] [place] [address] Dr. Emely Adrian Erythrocyte distribution width (RBC) [Ratio] 13.6 % Normal 11.0-15.0 [facility] Comment on above: Performed By: #### C BC #### [facility] [address] [place] [address] Dr. Emely Adrian Hematocrit (Bld) [Volume fraction] 32.2 % Critically low 42.0-54.0 [facility] Comment on above: Performed By: #### C BC #### [facility] [address] [place] [address] Dr. Emely Adrian Hemoglobin (Bld) [Mass/Vol] 10.5 g/dL Critically low 14.0-18.0 [facility] Comment on above: Performed By: #### C BC #### [facility] [address] [place] [address] Dr. Emely Adrian IG # 0.05 10e3/ul Critically high 0.00-0.03 [facility] Comment on above: Performed By: #### C BC #### [facility] [address] [place] [address] Dr. Emely Adrian IG % 0.6 % Critically high 0.0-0.5 [facility] Comment on above: Performed By: #### C BC #### [facility] [address] [place] [address] Dr. Emely Adrian LYMPH # 1.7 103/ul Normal 1.2-3.8 [facility] Comment on above: Performed By: #### C BC #### [facility] [address] [place] [address] Dr. Emely Adrian Lymphocytes/100 WBC (Bld) 19.7 % Critically low 20.5-60.0 [facility] Comment on above: Performed By: #### C BC #### [facility] [address] [place] [address] Dr. Emely Adrian MANUAL DIFF REQ NO Normal [facility] Comment on above: Performed By: #### C BC #### [facility] [address] [place] [address] Dr. Emely Adrian MCH (RBC) [Entitic mass] 31.7 pg Normal 25.9-34.0 [facility] Comment on above: Performed By: #### C BC #### [facility] [address] [place] [address] Dr. Emely Adrian MCHC (RBC) [Mass/Vol] 32.6 g/dL Normal 29.9-35.2 [facility] Comment on above: Performed By: #### C BC #### [facility] [address] [place] [address] Dr. Emely Adrian MCV (RBC) [Entitic vol] 97.3 fL Critically high 80.0-94.0 [facility] Comment on above: Performed By: #### C BC #### [facility] [address] [place] [address] Dr. Emely Adrian MONO # 1.0 103/ul Critically high 0.3-0.8 [facility] Comment on above: Performed By: #### C BC #### [facility] [address] [place] [address] Dr. Emely Adrian Monocytes/100 WBC (Bld) 12.4 % Critically high 1.7-12.0 [facility] Comment on above: Performed By: #### C BC #### [facility] [address] [place] [address] Dr. Emely Adrian NEUT # 5.4 103/ul Normal 1.4-6.5 [facility] Comment on above: Performed By: #### C BC #### [facility] [address] [address] [address] Emely Adrian Neutrophils/100 WBC (Bld) 64.0 % Normal 43.0-75.0 [facility] Comment on above: Performed By: #### C BC #### [facility] [address] [address] [address] Emely Adrian Platelet mean volume (Bld) [Entitic vol] 9.2 fL Critically low 9.5-13.5 [facility] Comment on above: Performed By: #### C BC #### [facility] [address] [place] [address] Dr. Emely Adrian PLT 417 103/ul Normal 150-450 [facility] Comment on above: Performed By: #### C BC #### [facility] [address] [place] [address] Dr. Emely Adrian RBC 3.31 106/ul Critically low 4.70-6.10 [facility] Comment on above: Performed By: #### C BC #### [facility] [id number] Emely Adrian WBC 8.4 103/ul Normal 4.0-11.0 [facility] Comment on above: Performed By: #### C BC #### [facility] [address] [place] [address] Dr. Emely Adrian CTA CHEST WO W CONon -20-2 022 CTA CHEST WO W CON EXAMINATION: [...] KIRK CRUZ Date: 2021-10-27 06:37 Normal [facility] Covid-19 PCR (CVDTB)on 10-09 SARS-CoV-2 (COVID-19) RNA ISIDRO+probe Ql (Unsp spec) Not detected Normal NOT DETECTED [facility] Comment on above: Result Comment: When diagnostic [...] for this test is supported by the Plugging Machine Operator of Health and Human Service's declaration that [...] used). Performed By: #### T BASIM, T7, LIPSergio, EMILY, CMP #### [facility] [address] [place] [address] Dr. Emely Adrian D-DIMERon 10-27-2021 D-DIMER 2.19 mg/L FEU Critically high <=0.59 [facility] Comment on above: Performed By: #### T SH, T7, LIPA, EMILY, CMP #### [facility] [address] [address] [address] Emely Adrian D-DIMER COMMENTS SEE BELOW Normal [facility] Comment on above: Result Comment: Incr eases [...] hospitalization. Performed By: #### T SH, T7, LIPSergio EMILY, CMP #### [facility] [address] [address] [address] Emely Adrian DIGOXINon 10-27-2021 DIG <0.2 Critically low 0.9-2.0 [facility] Comment on above: Performed By: #### T SH, T7, LIPEMILY Hill, CMP #### [facility] [address] [place] [address] Dr. Emely Adrian ECHOCARDIO M/2D COMPLETEon 0 10-27-2021 ECHOCARDIO M/2D COMPLETE Patient: PABLO BECKMAN Exam Date: 10/27/2021 : 1955 Gender:M Ordering : DR LV HEARD . Admission #: [id number] Family : Order #: [id number] CLICK HERE TO VIEW EXAM ECHOCARDIOGRAM REPORT [...] M.D. on 10/27/2021 at 17:01 Normal [facility] LACTATE/LACTIC ACIDon 2021 Lactate [Moles/Vol] 0.5 mmol/L Normal 0.4-1.9 [facility] Comment on above: Performed By: #### T SH, T7, LIPA, EMILY, CMP #### [facility] [address] [address] [address] Emely Adrian Lactate [Moles/Vol] 0.5 mmol/L Normal 0.4-1.9 [facility] Comment on above: Performed By: #### C BC #### [facility] [address] [address] [address] Emely Adrian PROF CHEM 8 (BAS METB)on Anion gap [Moles/Vol] 15.3 mmol/L Normal [facility] Comment on above: Performed By: #### C BC #### [facility] [address] [address] [address] Emely Adrian Calcium [Mass/Vol] 9.1 mg/dL Normal 8.5-10.1 [facility] Comment on above: Performed By: #### C BC #### [facility] [address] [address] [address] Emely Adrian Chloride [Moles/Vol] 105 mmol/L Normal 98-107 [facility] Comment on above: Performed By: #### C BC #### [facility] [address] [address] [address] Emely Adrian CO2 [Moles/Vol] 26.6 mmol/L Normal 21.0-32.0 [facility] Comment on above: Performed By: #### C BC #### [facility] [address] [address] [address] Emely Adrian Creatinine [Mass/Vol] 1.29 mg/dL Normal 0.70-1.30 [facility] Comment on above: Performed By: #### C BC #### [facility] [address] [place] [address] Dr. Emely Adrian EGFR-AF TAJIK >60 Normal >=60 [facility] Comment on above: Performed By: #### C BC #### [facility] [address] [place] [address] Dr. Emely Adrian EGFR-NON AF TAJIK 56 mL/min/1.73m2 Critically low >=60 [facility] Comment on above: Performed By: #### C BC #### [facility] [address] [place] [address] Dr. Emely Adrian Glucose [Mass/Vol] 100 mg/dL Normal 74-106 [facility] Comment on above: Performed By: #### C BC #### [facility] [address] [place] [address] Dr. Emely Adrian Potassium [Moles/Vol] 3.9 mmol/L Normal 3.5-5.1 [facility] Comment on above: Performed By: #### C BC #### [facility] [address] [address] [address] Emely Adrian Sodium [Moles/Vol] 143 mmol/L Normal 136-145 [facility] Comment on above: Performed By: #### C BC #### [facility] [address] [address] [address] Emely Adrian Urea nitrogen [Mass/Vol] 28.0 mg/dL Critically high 7.0-18.0 [facility] Comment on above: Performed By: #### C BC #### [facility] [address] [place], [place] [address] Dr. Emely Adrian Urea nitrogen/Creatinin e [Mass ratio] 21.7 mg/mg Normal [facility] Comment on above: Performed By: #### C BC #### [facility] [address] [place], [place] [address] Dr. Emely Adrian XR CHEST 1 Von [...] KARLY SAID Date: 2021-10-27 04:41 Normal [facility] Cardiovascular Lab Reporton 04-09-2021 Cardiovascular Lab Report [facility] Patient Name: [facility]k [facility] MR #: [id number] Physician: Mamta Stephenson, Department of [place] [employer] Medicine Service Date: 04/07/2021 Division of Birthdate: 1955 Cardiology Room #: [facility] [place] [address] Cardiovascular Laboratory Report DATE OF PROCEDURE; 04/07/2021 PHYSICIAN: Lynsey Weeks MD FINAL IMPRESSIONS: 1. moderate coronary [...] noted. INDICATIONS: Heart Failure Electronically Signed by: Lynsey Weeks MD 04/09/2021 11:33 A Mamta Stephenson CNP Date Dict: 04/09/2021/11:17 A/Lynsey Weeks MD Date Trans: 04/09/2021 11:17 Sergio/ [id number] Normal [facility] Encounters Encounter Date Encounter Type Care Provider Facility Start: 08-08-2023 End: 08-08-2023 ambulatory MAMTA STEPHENSON [facility] Start: 06-21-2023 Telephone encounter Quinton Gonzáles MD Work Phone: Radiation Oncology Comment on above: Results; Appointment Start: 05-23-2023 Telephone encounter Quinton Gonzáles MD Work Phone: Radiation Oncology Comment on above: Future Appointment Start: 08-09-2022 End: 08-09-2022 ambulatory CUBA PONCE [facility] Start: 06-23-2022 End: 06-23-2022 ambulatory Quinton Gonzáles MD Work Phone: Radiation Oncology Comment on above: Malignant neoplasm o f prostate (HCC) (Primary Dx) Start: 06-23-2022 End: 06-23-2022 Telemedicine consultation with patient Quinton Isidoro Gonzáles MD Work Phone: [place] Start: 06-23-2022 End: 06-24-2022 ambulatory LV HEARD Facility:[facility] Start: 06-22-2022 Telephone encounter Quinton Gonzáles MD Work Phone: Radiation Oncology Comment on above: Patient Question Start: 06-02-2022 End: 06-03-[address] JT GONZÁLES Facility:[facility] Start: 03-29-2022 End: 03-29-2022 Patient encounter procedure Patricio BEAUCHAMP [facility] [place] Start: 03-19-2022 Encounter for preprocedural laboratory examination DR PATRICIO BEAUCHAMP . [facility] Start: 03-18-2022 End: 03-18-[address] PATRICIO BEAUCHAMP . Facility:[facility] Start: 03-14-2022 End: 03-15-[address] PATRICIO BEAUCHAMP . Facility:[facility] Start: 03-14-2022 End: 03-15-2022 Encounter for preprocedural laboratory examination DR PATRICIO BEAUCHAMP . Facility:[facility] Start: 03-09-2022 End: 03-09-[address] ISIDRO WOOTEN Facility:[facility] Start: 02-25-2022 End: 02-26-[address] LV HEARD . Facility:[facility] Start: 12-30-2021 End: 12-31-[address] LV HEARD . Facility:[facility] Start: 11-09-2021 End: 11-10-[address] LV HEARD . Facility:[facility] Start: 10-27-2021 End: 10-27-[address] LV HEARD . Facility: Start: 04-07-2021 End: 04-08-2021 ambulatory MAMTA STEPHENSON Facility:[facility] Procedures Date Procedure Procedure Detail Performing Clinician Start: 08-08-2023 Follow-up visit Follow-up MAMTA STEPHENSON Start: 06-02-2022 End: 06-02-2022 PSA screening [facility] Provider Comment on above: Performed By: #### TSH, T7, EMILY WIGGINS C MP #### [facility] [address] [place] [address] Dr. Emely Adrian Start: 03-18-2022 Colonoscopy [facility] Start: 03-18-2022 Esophagogastroduodenoscopy [facility] Start: 10-17-2018 Colonoscopy [facility]io [facility] Start: 09-11-2009 Colonoscopy Patricio NILL Amputation of finger, except thumb Patricio NILL Arthroscopy of shoulder Meng aecandace MARTINEZL Implantation of radi oactive seed into prostate Patricio i-marker Open reduction of fr acture with internal fixation [facility]ricio [facility] Comment on above: right leg Umbilical herniorrha phy using surgical sutures Patricio [facility] Plan of Treatment Date Care Activity Detail Author Start: 06-12-2028 Prostate specific antigen measurement Prostate Cancer Screening Discussion [facility] Start: 06-02-2027 PROSTATE CANCER SCREENING DISCUSSION PROSTATE CANCER SCREENING DISCUSSION [facility] Start: 06-02-2027 Prostate specific antigen measurement Prostate Cancer Screening Discussion [facility] Start: 06-12-2024 End: 09-11-2024 Prostate specific Ag [Mass/volume] in Serum or Plasma PSA/PROSTSPECAG DIAG Lab Routine Malignant neoplasm of prostate (HCC) Expected: 06/12/2024, Expires: 09/11/2024 [facility] Work Phone: Comment on above: Expected: 06/12/2024 , Expires: 09/11/2024 Start: 05-23-2023 End: 08-22-2023 Prostate specific Ag [Mass/volume] in Serum or Plasma PSA/PROSTSPECAG DIAG Lab Routine Malignant neoplasm of prostate (HCC) Expected: 05/23/2023, Expires: 08/22/2023 [facility] Work Phone: Comment on above: Expected: 05/23/2023 , Expires: 08/22/2023 Start: 04-10-2023 Advance Directive Discussion Advance Directive Discussion [facility] Start: 04-10-2023 Depression Assessment Depression Ass essment [facility] Start: 01-18-2023 Pneumococcal Vaccine : 65+ (2 of 2 - PPSV23 or PCV20) Pneumococcal Vaccine: 65+ (2 of 2 - PPSV23 or PCV20) [facility] Start: 12-09-2022 Covid-19 Vaccine () Covid-19 Vaccine () [facility] Start: 12-09-2022 Influenza vaccination Influenza Vacc ine (#1) [facility] Start: 04-10-2022 ADVANCE DIRECTIVE DISCUSSION ADVANCE DIRECTIVE DISCUSSION [facility] Start: 04-10-2022 DEPRESSION ASSESSMENT DEPRESSION ASS ESSMENT [facility] Start: 12-09-2021 Influenza vaccination INFLUENZA (#1) [facility] Start: 2021 PNEUMOCOCCAL: 65+ (1 - PCV) PNEUMOCOCCAL: 65+ (1 - PCV) [facility] Start: 09-24-2020 COVID-19 VACCINE (3 - Booster for Pfizer series) COVID-19 VACCINE (3 - Booster for Pfizer series) [facility] Start: 2016 RSV Vaccine (1 - 1-d ose 60+ series) RSV Vaccine (1 - 1-dose 60+ series) [facility] Start: 2006 SHINGRIX VACCINE (1 of 2) SHINGRIX VACCINE (1 of 2) [facility] Start: 2001 COLOGUARD (FIT-DNA) COLOGUARD (FIT-D NA) [facility] Start: 2001 Colonoscopy COLONOSCOPY [facility] Start: 2001 COLORECTAL CANCER SCREENING COLORECTAL CANCER SCREENING [facility] Start: [address] COLONOGRAPHY [facility] Start: 2001 [facility]ET[facility]EN [facility] Start: 2001 Diabetes Screening Diabetes Screenin g [facility] Start: 2001 FECAL OCCULT BLOOD FECAL OCCULT BLOO D [facility] Start: 2001 Screening for malign ant neoplasm of colon [facility] Start: 2001 SIG[facility]IDOSCOPY [facility] Start: 10-21-1991 Lipid panel Lipid Screening [facility] Start: 10-21-1991 LIPID SCREEN LIPID SCREEN [facility] Start: 10-21-1975 Urine microalbumin profile [facility] Start: 1974 HEPATITIS C SCREENING HEPATITIS C [facility] Start: 1974 Hepatitis C screening Hepatitis C [facility] Start: 1974 HIV SCREENING HIV SCREENING [facility] Start: 1955 ABDOMINAL AORTIC ANEURYSM SCREENING ABDOMINAL AORTIC ANEURYSM SCREENING [facility] Start: 1955 Abdominal aortic aneurysm screening Abdominal Aortic Aneurysm Screening [facility] Immunizations Immunization Date Immunization Notes Care Provider Christian marte NEGATED: Highlighted row has not occurred!03-08-2022 influenza virus vaccine, unspecified formulation Patricio BEAUCHAMP [facility] [place] Payers Date Payer Category Payer Medicare DEVOTED MEDICARE [facility] HMO [id number] 2023-Present [phone] [address] [place] [address] HMO [id number] 2023 Unknown [id number] 2022 Private Health Insurance [facility] CHOICE PLUS [id number] 2022-Present [phone] [address] [place] [address] HMO [id number] 2006 Unknown [facility] GENERIC [id number] 2006-Present [phone] [place] [address] [id number] 1959 Unknown [id number] 1959 Unknown [id number] 1955 Unknown [id number] 1955 Unknown [id number] .[id number] 1955 Unknown [id number] .[id number] 1955 Unknown [id number] .[id number] 1955 Unknown [id number] .[id number] 1955 Unknown [id number] .[id number] 1955 Unknown [id number] .[id number] 1955 Unknown [id number] .[id number] 1955 Unknown [id number] Social History Date Type Detail Facility Start: 06-24-2020 End: 03-08-2022 Tobacco smoking status Ex-smoker (finding) [facility] [place] Tobacco smoking status Never [facility] Start: 06-24-2020 End: 06-23-2022 Sex Assigned At Male Denny Emma Owens [facility] End: 06-10-1989 History of tobacco use Current smoker [facility] End: 06-10-1989 History of tobacco use Cigarette Smoker [facility] Start: 06-24-2020 End: 06-23-2022 Cigarettes smoked current (pack per day) - Reported 1.5 [facility] Start: 03-17-2021 Tobacco use and exposure Smokeless tobacco non-user [facility] Start: 06-24-2020 Alcohol intake Not Asked [facility] Start: 1955 Sex Assigned At Not on file [facility] Clinical Notes 03-18-2022 to 08-08-2023 Telephone Encounter - Latisha RojasDEVIKA - 06/21/2023 2:40 PM EDTTelephone Encounter - Josefina Anderson RN - 05/23/2023 9:43 AM GET Gonzáles MD - 06/23/2022 10:11 AM EDT Note Date & Type Note Facility 08-08-[address] [facility] SUBJECTIVE Chief Complaint Patient presents with Follow-up 1 year Pablo Beckman is a 67 y.o. male here for follow-up. HPI Past medical history including hypertension, hyperlipidemia, nonobstructive CAD [...] he cuts himself at work. 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 He denies any changes since last seen including no CP, dyspnea, orthopnea, PND, LE edema, dizziness/LH, syncope. He notes rare palpitations, maybe one episode since we last saw him and this lasted seconds to maybe a couple minutes. 08/08/2023 He was advised to increase his Eliquis from once daily to 5mg BID during a previous visit He was having issues with GI bleeding/rectal bleeding earlier this year. His PCP advise he take half the dose so he is taking 2.5mg BID. He also stopped taking ibuprofen and ASA. Since then, he has no longer had any further issues with bleeding. He has some dizziness when he gets up in the AM, resolves after a short period of time. Patient Active Problem List Diagnosis Aneurysm of ascending aorta (CMS/HCC) Diastolic dysfunction Hypertensive disorder Left ventricular systolic dysfunction Paroxysmal atrial fibrillation (CMS/HCC) NSVT (nonsustained ventricular tachycardia) (CMS/HCC) Coronary artery disease Mixed hyperlipidemia Past Medical History: Diagnosis Date Aneurysm (CMS/HCC) [...] and are negative. OBJECTIVE Visit Vitals BP 140/80 (BP Location: Left arm, Patient Position: Sitting, BP Cuff Size: Adult) Pulse 59 Resp 16 Ht 1.727 m (5' 8 ) Wt 96.4 kg (212 lb 9.6 oz) SpO2 97% BMI 32.33 kg/m??? Smoking Status Former BSA 2.15 m??? Medications: Current Outpatient Medications: apixaban (Eliquis) 5 mg tablet, Take 1 tablet by mouth in the morning and at bedtime., Disp: , Rfl: ferrous sulfate 325 (65 Fe) MG tablet, Take 1 tablet by mouth in the morning and at bedtime., Disp: , Rfl: furosemide (Lasix) 20 mg tablet, TAKE 1 TABLET(20 MG) BY MOUTH IN THE MORNING, Disp: 90 tablet, Rfl: 3 metoprolol tartrate 75 mg tablet, Take by mouth in the morning and at bedtime., Disp: , Rfl: multivitamin with iron-minerals 9 mg iron/15 mL liquid, Take by mouth in the morning., Disp: , Rfl: pantoprazole (ProtoNix) 40 mg EC tablet, Take 40 mg by mouth in the evening., Disp: , Rfl: rosuvastatin (Crestor) 20 mg tablet, TAKE 1 TABLET(20 MG) BY MOUTH AT BEDTIME, Disp: 90 tablet, Rfl: 3 Physical Exam Vitals reviewed. Constitutional: Appearance: Normal [...] dry. Neurological: General: No focal deficit present. Ment (more content not included)... [facility] 06-21-2023 Miscellaneous Notes Melvina called to reschedule [...] Latisha Rojas RN documented in this encounter [facility] 05-23-2023 Miscellaneous Notes PT called in to schedule follow up for this year. He will also need PSA. Please sign pended order and we will fax to [facility]. Josefina Anderson RN documented in this encounter [facility] 08-09-2022 Note [facility] Consult Note [...] he cuts himself at work. 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 He denies any changes since last seen [...] no difficulty hearing, (more content not included)... [facility] 06-23-2022 Note HNO ID: [id number] Author: Quinton Gonzáles MD Service: ? Author [...] Time Spent: 6 minutes Quinton Gonzáles MD [facility] 06-23-2022 History of Present illness Narrative AMBULATORY [...] Quinton Gonzáles MD documented in this encounter [facility] 06-23-2022 Miscellaneous Notes Appointment has been changed in Epic. Kwaku Rasmussen Per Dr Gonzáles, mark to switch to phone visit. Patient was notified. PSS- please change in epic. Josefina Anderson RN Pablo called wondering if his follow up appointment can be switched to a phone visit tomorrow. Please advise. Latisha Rojas LPN documented in this encounter [facility] 03-18-2022 Note OPERATIVE NOTE OPERATION DATE: [...] good condition. CC: Lv Heard M.D. [facility] Evaluation + Plan note No data available for this section General Surgery [place] Evaluation note Diagnosis Malignant neoplasm of prostate (HCC)- Primary Malignant neoplasm of prostate [facility] [place] [facility] Diagnosis Malignant neoplasm of prostate (HCC)- Primary Malignant neoplasm of prostate documented in this encounter [facility] note* Diagnosis Malignant neoplasm of prostate (HCC)- Primary Malignant neoplasm of prostate documented in this encounter [facility] [place] Discharge instructions No data available for this section General Surgery [place] Progress note No data available for this section General Surgery [place] Summary Purpose Family History No Family History [...] and content) DATE CREATED AUTHOR 04/15/2021 [facility] DATE CREATED AUTHOR AUTHOR'S ORGANIZ ATION 08/08/2022 [facility] DATE CREATED AUTHOR AUTHOR'S ORGANIZ ATION 06/16/2023 [facility] DATE CREATED AUTHOR AUTHOR'S ORGANIZ ATION 06/23/2023 [facility] DATE CREATED AUTHOR AUTHOR'S ORGANIZ ATION 08/09/2023 [facility] Patient Care team informatio n (unrecognized section and content) Pediatric Surgeon Relationship Specialty Start Date End Date Lv Heard MD PCP - General 02/24/09 Pediatric Surgeon Relationship Specialty Start Date End Date Lv Heard MD PCP - General 02/24/09 Source Comments (unrecognize d section and content) In the event this informatio n is protected by the Federal Confidentiality of Alcohol and Drug Abuse Patient Records regulations: The Federal rules restrict any use of the information to criminally investigate or prosecute any alcohol or drug abuse patient.[facility] the event this information is protected by the Federal Confidentiality of Alcohol and Drug Abuse Patient Records regulations: The Federal rules restrict any use of the information to criminally investigate or prosecute any alcohol or drug abuse patient.[facility] the event this information is protected by the Federal Confidentiality of Alcohol and Drug Abuse Patient Records regulations: The Federal rules restrict any use of the information to criminally investigate or prosecute any alcohol or drug abuse patient.[facility] the event this information is protected by the Federal Confidentiality of Alcohol and Drug Abuse Patient Records regulations: The Federal rules restrict any use of the information to criminally investigate or prosecute any alcohol or drug abuse patient.[facility] Reason for Visit (unrecogniz ed section and content) Reason Comments Patient Question Reason Comments Established Patient Specialty Diagnoses / Procedures Referred By Contac t Referred To Contact Radiation Oncology / RADIATION ONCOLOGY Diagnoses Follow-up examination 1 yr follow up, psa at [place] Procedures OFFICE/OUTPATIENT ESTABLISHED MOD MDM 30-39 MIN EST PATIENT Quinton Gonzáles MD [address] [place] [address] [place] [address] Quinton Gonzáles MD [address] [place] [address] [place] [address] Referral ID Status Reason Start Date Expiration Date Visits Re quested Visits Authorized [id number] Open 06/23/2022 09/21/2022 1 0 Reason Comments [...] BE BASED ON THE PRIMARY CLINICAL RECORDS. [employer] provides no warranty or guarantee of the accuracy or completeness of information in this document.
--- NOTE | 2023-12-06 10:32 | ED_ITS ---
HPI HPI - General Adult General Chief complaint: Urogenital-Male Stated complaint: URINATION AND BOWEL ABNORMALITIES Time Seen by Provider: 12/06/23 10:12 Source: patient Mode of arrival: walk-in History of Present Illness HPI narrative: Patient presents ED complaint of left lower quadrant abdominal pain. He said it started yesterday and he had a lot of red blood in his stool yesterday. Today he states the stool is black and he also has dark urine today. He denies history of hemorrhoids or diverticulitis. He is on Eliquis but he Said he cut down to 1 tablet and now he is been taking half a tablet. He said he was started on Eliquis because they did a heart cath and told him he should be on Eliquis. He did not like all the bruising on his arm so he has been weaning himself off the Eliquis and is down to half a tablet which she did inform his doctor about. No vomiting no nausea. No fever. Patient denies chest pain or shortness of breath at rest. He does have shortness of breath with exertion but he reports that is not anything new. Related Data Home Medications ?Medication ?Instructions ?Recorded ?Confirmed apixaban 5 mg tablet (Eliquis) 2.5 mg PO DAILY 12/06/23 12/06/23 ferrous sulfate 325 mg (65 mg 325 mg PO BID 12/06/23 12/06/23 iron) tablet (FeroSul) furosemide 20 mg tablet 20 mg PO DAILY 12/06/23 12/06/23 metoprolol tartrate 75 mg tablet 75 mg PO BID 12/06/23 12/06/23 rosuvastatin 20 mg tablet 20 mg PO DAILY 12/06/23 12/06/23 Previous Rx's ?Medication ?Instructions ?Recorded ciprofloxacin HCl 500 mg tablet 500 mg PO BID 7 days #14 tabs 12/06/23 (Cipro) Allergies Allergy/AdvReac Type Severity Reaction Status Date / Time No Known Drug Allergies Allergy Verified 12/06/23 10:19 Opioid HPI Opioid Management Most Recent Opioid Data: Last Pain Scale 3 12/06/23 10:39 Review of Systems ROS Status of ROS 10 or more systems reviewed and unremark able except as noted in history and below [facility] Medical History (Updated 12/06/23 @ 12:24 by Angelina Nunn DO) Afib ?I48.91 - Unspecified atrial fibrillation (ICD-10) Exam Narrative Exam Narrative: Time Seen: [] Vital Signs: [Per nurse's notes.] General: [Alert] Skin: [Warm, dry, no rash.] Head: [Normocephalic, atraumatic.] Neck: [Supple, trachea midline.] Eye: [Pupils are equal, round and reactive to light, extraocular movements are intact, normal conjunctiva.] Ears, nose, mouth and throat: oral mucosa moist. Cardiovascular: [Regular rate and rhythm, no murmur.] Respiratory: [Lungs are clear to auscultation, respirations are non-labored, breath sounds are equal.] Chest wall: [No tenderness, no deformity.] Gastrointestinal: [Soft, Moderate tenderness to the left lower quadrant, non distended, normal bowel sounds.]Rectal exam reveals no gross blood, occult test was sent down to the lab MSK: 5 out of 5 muscle strength x 4 extremities no calf pain or edema Lymphatics: [No lymphadenopathy.] Psychiatric: [Cooperative, appropriate mood & affect.] Neurological: [Alert and oriented to person, place, time, and situation, no focal neurological deficit observed.] Constitutional Vital Signs, click to edit/add: Last Vital Signs Temp 98.2 F 12/06/23 10:16 Pulse 62 12/06/23 10:16 Resp 20 12/06/23 10:16 BP 124/82 12/06/23 10:16 Pulse Ox 96 12/06/23 10:16 O2 Del Method Room Air 12/06/23 10:16 Course Vital Signs Vital signs: Vital Signs Temperature 98.2 F 12/06/23 10:16 Pulse Rate 62 12/06/23 10:16 Respiratory Rate 20 12/06/23 10:16 Blood Pressure 124/82 12/06/23 10:16 Pulse Oximetry 96 12/06/23 10:16 Oxygen Delivery Method Room Air 12/06/23 10:16 Temperature 98.2 F 12/06/23 10:16 Pulse Rate 62 12/06/23 10:16 Respiratory Rate 20 12/06/23 10:16 Blood Pressure 124/82 12/06/23 10:16 Pulse Oximetry 96 12/06/23 10:16 Oxygen Delivery Method Room Air 12/06/23 10:16 Medical Decision Making MDM Narrative Medical decision making narrative: I spoke to Dr. Heard about the patient and the findings. The patient is on Eliquis for history of A-fib. I obtain an EKG, patient is not in A-fib at this time. I instructed him to hold his Eliquis due to the GI bleeding and the blood in the urine. Dr. Heard wants to see him on Monday. Patient instructed to follow-up on Monday for a recheck. Most likely a bleeding diverticulum based on the CAT scan findings. Will start the patient on Cipro in case there is some diverticulitis flaring up. Patient is stable, blood pressure is stable he is not tachycardic. He is not syncopal. I did instruct the patient to return to the ER Immediately if he has increased blood loss, diaphoresis, syncope vomiting or any further concerns. Otherwise follow-up with Dr. Heard as scheduled. Differential Diagnosis Differential Diagnosis: Diverticulitis urinary tract infection anemia Medical Records Medical records reviewed: Yes I reviewed the patient's medical records Lab Data Lab results reviewed: Yes I reviewed the patient's lab results Labs: Lab Results 12/06/23 12/06/23 Range/Units 10:20 10:30 WBC 8.4 (4.0-11.0) 10^3/uL RBC 3.31 L (4.70-6.10) 10^6/uL Hgb 10.6 L (14.0-18.0) g/dL Hct 32.8 L (42.0-54.0) % MCV 99.1 H (80.0-94.0) fL MCH 32.0 (25.9-34.0) pg MCHC 32.3 (29.9-35.2) g/dL RDW 14.5 (11.0-15.0) % Plt Count 260 (150-450) 10^3/uL MPV 9.5 (9.5-13.5) fL Neut % (Auto) 61.0 (43.0-75.0) % Lymph % (Auto) 22.7 (20.5-60.0) % [place] % (Auto) 13.9 H (1.7-12.0) % Eos % (Auto) 1.9 (0.9-7.0) % Baso % (Auto) 0.1 L (0.2-2.0) % Neut # (Auto) 5.1 (1.4-6.5) 10^3/uL Lymph # (Auto) 1.9 (1.2-3.8) 10^3/uL [place] # (Auto) 1.2 H (0.3-0.8) 10^3/uL Eos # (Auto) 0.2 (0.0-0.7) 10^3/uL Baso # (Auto) 0.0 (0.0-0.1) 10^3/uL Abs Immat Gran (auto) 0.03 (0.00-0.03) 10^3/uL Imm/Tot Granulo (auto) 0.4 (0.0-0.5) % Sodium 139 (136-145) mmol/L Potassium 4.1 (3.5-5.1) mmol/L Chloride 103 (98-107) mmol/L Carbon Dioxide 25.5 (21.0-32.0) mmol/L Anion Gap 14.6 BUN 17.0 (7.0-18.0) mg/dL Creatinine 1.25 (0.70-1.30) mg/dL Est GFR ( Amer) >60 (>=60) Est GFR (Non-Af Amer) 58 L (>=60) BUN/Creatinine Ratio 13.6 Glucose 95 (74-106) mg/dL Calcium 8.6 (8.5-10.1) mg/dL Total Bilirubin 0.5 (0.2-1.0) mg/dL AST 21 (15-37) U/L ALT 17 (16-63) U/L Alkaline Phosphatase 64 (46-116) U/L Total Protein 7.5 (6.4-8.2) g/dL Albumin 3.3 L (3.4-5.0) g/dL Globulin 4.2 g/dL Albumin/Globulin Ratio 0.8 Urine Color Red A (YELLOW) Urine Clarity Turbid A (CLEAR) Urine pH 6.0 (5.0-9.0) Ur Specific [place] 1.025 (1.005-1.025) Urine Protein 100 A (NEG/TRACE) mg/dL Urine Glucose (UA) Negative (NEGATIVE) mg/dL Urine Ketones Negative (NEGATIVE) mg/dL Urine Occult Blood Large A (NEGATIVE) Urine Nitrite Negative (NEGATIVE) Urine Bilirubin Negative (NEGATIVE) Urine Urobilinogen 0.2 (0.2-1.0) EU/dL Ur Leukocyte Esterase Negative (NEGATIVE) Urine RBC >100 A (0-2) #/HPF Urine WBC 2-5 A (NONE SEEN) #/HPF Ur Squamous Epith Cells Rare (NONE/RARE) #/LPF Urine Bacteria None seen (NONE SEEN) #/HPF Urine Mucus None seen (NONE SEEN) Ur Culture Indicated? No Stool Occult Blood Positive A Imaging Data CT scan - abdomen: Radiologist's impression: ITS Impressions Abdomen/Pelvis CT 12/06/23 10:27 IMPRESSION: 1. No acute findings. 2. Gastric diverticulum, duodenal diverticulum and colonic diverticulosis. No findings to suggest diverticulitis. 3. Subcentimeter dense cortical nodule lower pole the left kidney likely hemorrhagic cyst but cannot be definitively characterized on a single phase contrast-enhanced scan. This may be further evaluated with pre and postcontrast enhanced CT or CT urography if clinically indicated. 4. Nonobstructing left nephrolithiasis. 5. Hepatomegaly with diffuse hepatic steatosis. Electronically authenticated by: JOSEPH FREOGSO Date: 12/06/2023 11:55 ECG Data Interpretation: EKG INTERPRETATION Time: []1220 Rate: []45 Rhythm: _ []Sinus bradycardia ST segments: _ []No acute ST elevation or depression T waves: _ [] Ectopy: _ [] P wave/OH interval: _ [] QRS interval: _ [] QT interval: _ []Long QT, QTc 452 Comparison: _ [] Comparison EKG date: [] Performed by: [self] Discharge Plan Discharge Stand Alone Forms: Work/School Release, Portal Instructions Chief Complaint: Urogenital-Male Clinical Impression: Diverticula of colon, Hematuria Patient Disposition: Home, Self-Care Time of Disposition Decision: 12:24 Condition: Good Mode of Transportation: Private Vehicle Prescriptions / Home Meds: New ciprofloxacin HCl [Cipro] 500 mg tablet 500 mg PO BID 7 Days Qty: 14 0RF No Action Eliquis 5 mg tablet 2.5 mg PO DAILY ferrous sulfate [FeroSul] 325 mg (65 mg iron) tablet 325 mg PO BID furosemide 20 mg tablet 20 mg PO DAILY metoprolol tartrate 75 mg tablet 75 mg PO BID rosuvastatin 20 mg tablet 20 mg PO DAILY Print Language: Djibout[place] Instructions: Diverticulosis (ED), Hematuria (ED) Referrals: Guillermo Heard MD [Primary Care Provider] - 1 week
[2023-12-06 10:44] LABS: Basophils Percent Auto 0.1 % (0.2-2.0); Eosinophils Absolute Auto 0.2 10^3/uL (0.0-0.7); Eosinophils Percent Auto 1.9 % (0.9-7.0); Hematocrit 32.8 % (42.0-54.0); Hemoglobin 10.6 g/dL (14.0-18.0); Immature Granulocytes Abs Auto 0.03 10^3/uL (0.00-0.03); Immature Granulocytes Pct Auto 0.4 % (0.0-0.5); Lymphocytes Absolute Auto 1.9 10^3/uL (1.2-3.8); Lymphocytes Percent Auto 22.7 % (20.5-60.0); Mean Corpuscular HGB Conc 32.3 g/dL (29.9-35.2); Mean Corpuscular Volume 99.1 fL (80.0-94.0); Mean Platelet Volume 9.5 fL (9.5-13.5); Monocytes Absolute Auto 1.2 10^3/uL (0.3-0.8); Monocytes Percent Auto 13.9 % (1.7-12.0); Neutrophils Absolute Auto 5.1 10^3/uL (1.4-6.5); Platelet Count 260 10^3/uL (150-450); Red Blood Count 3.31 10^6/uL (4.70-6.10); Red Cell Distribution Width 14.5 % (11.0-15.0); White Blood Count 8.4 10^3/uL (4.0-11.0)
[2023-12-06] MEDS: 0.9 % SODIUM CHLORIDE 1,000 ML 999 ML IV (10:44)
[2023-12-06 10:46] LABS: Internal Control Within Normal Limits; Occult Blood Positive
[2023-12-06 10:54] LABS: Bilirubin Urine NEGATIVE (NEGATIVE); Blood Urine LARGE (NEGATIVE); Glucose Urine UA NEGATIVE (NEGATIVE); Ketones Urine NEGATIVE (NEGATIVE); Leukocyte Esterase Urine NEGATIVE (NEGATIVE); Nitrite Urine NEGATIVE (NEGATIVE); Protein Urine 100 mg/dL (NEG/TRACE); Specific Gravity Urine 1.025 (1.005-1.025); Urobilinogen Urine 0.2 EU/dL (0.2-1.0)
[2023-12-06 10:56] LABS: Clarity Urine TURBID (CLEAR); Color Urine RED (YELLOW)
[2023-12-06 10:59] LABS: Urine Microscopic Indicated YES
[2023-12-06 11:00] LABS: Bacteria Urine NONE SEEN #/HPF (NONE SEEN); Mucus Urine NONE SEEN (NONE SEEN); RBC Urine >100 #/HPF (0-2); Squamous Epithelial Cell Urine RARE #/LPF (NONE/RARE)
[2023-12-06 11:06] LABS: Alanine Aminotransferase 17 U/L (16-63); Albumin Globulin Ratio 0.8; Albumin Level 3.3 g/dL (3.4-5.0); Alkaline Phosphatase 64 U/L (46-116); Anion Gap 14.6; Aspartate Amino Transferase 21 U/L (15-37); BUN Creatinine Ratio 13.6; Bilirubin Total 0.5 mg/dL (0.2-1.0); Calcium 8.6 mg/dL (8.5-10.1); Carbon Dioxide 25.5 mmol/L (21.0-32.0); Chloride 103 mmol/L (98-107); Estimated GFR (African America >60 (>=60); Estimated GFR (Non-African Ame 58 (>=60); Globulin 4.2 g/dL; Glucose 95 mg/dL (74-106); Potassium 4.1 mmol/L (3.5-5.1); Sodium 139 mmol/L (136-145); Total Protein 7.5 g/dL (6.4-8.2)
[2023-12-06 11:08] LABS: Urine Culture Indicated NO
[2023-12-06 11:59] VITALS: BP 131/65; O2SAT 98
[2023-12-06 12:00] VITALS: BP 115/70; O2SAT 97
[2023-12-06 12:10] VITALS: O2SAT 96
--- NOTE | 2023-12-06 12:18 | ECG_ITS ---
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
[2023-12-06 12:30] VITALS: BP 117/76; PULSE 54; O2SAT 97
== END 2023-12-06 12:40 | disposition home or self-care (01) ==
PROVIDERS: Emergency Provider Emergency Medicine; PCP Family Medicine
DX: K57.31 Diverticulosis of large intestine without perforation or abscess with bleeding (principal); R31.9 Hematuria, unspecified; Z79.01 Long term (current) use of anticoagulants
CPT/HCPCS: 36415; 74177; 80053; 81001; 85025; 93005; 99285; G0328; Q9967

== ENCOUNTER 2023-12-08 14:14 | Outpatient (OUT) | payer OTHER, SELFPAY ==
--- OUTSIDE RECORDS SUMMARY | 2023-12-08 14:23 | XMS_ITS | CCD ---
Author Organization [facility] CliniSymt Care Team Providers Care Pinion Staker Name Role Phone MAMTA STEPHENSON Attending Unavailable SELF, REFERRED Primary Care Unavailable SELF, REFERRED Referring Unavailable MAMTA STEPHENSON Admitting Unavailable Lv Heard Primary Care Physician [phone] Lv Heard MD Primary Care Provider [phone] CURRY Admitting Unavailable [...] # 120 tab(s), Refills(s) 3, Pharmacy: [id number], 177.8, cm, 03/08/22 15:41:00 EST, Height/Length Dosing, [...] 06-10-2014 06-10-2014 Episodic Other aftercare (1 source) long term care pharmacist (current) use of anticoagulants; Translations: [BARREL TESTER CURRNT USE ANTICOAGULANTS] Onset: 03-24-2022 Episodic Other aftercare (1 source) [facility] (current) use of aspirin; Translations: [BARREL TESTER CURRENT USE OF ASPIRIN] Onset: 03-24-2022 Episodic Other aftercare (1 source) Other [facility] (current) drug therapy; Translations: [OTH FDC CURRENT DRUG THERAPY] Onset: 03-24-2022 Episodic Other [...] Range Facility Office Visiton 08-08-2023 Follow-up visit [id number] Hanna Beckman 1955 M Date Provider Department Center 08/08/2023 Domo-MAMTA STEPHENSON CARD [facility] Family History Problem Relation Age of Onset Stroke Mother Family Status - Relation Status Age at Mother Level of Service:25332 OR OFFICE/OUTPATIENT ESTABLISHED MOD [facility] 30 MIN Reason for Visit and Comments: Follow-up [384600] - 1 year Normal [facility] Jason 06-21-2023 [place] Telephone (SUDHAKARA) PABLO BECKMAN ([id number]) 1955 M Date Time Provider Department 06/21/23 [...] (HCC) [C61] Order(s):PSA/PROSTSPECAG DIAG [SQPSA] Order #: [id number] FUTURE Prescriptions as of 06/22/2023 - valACYclovir [...] Status:Closed by Quinton GONZÁLES on 06/21/23 [facility] 06-15-2023 Lab Reports [id number] Normal [facility] Physician Referralon 024 Physician Referral [id number] [facility] CNPNon 05-23-2023 CNPN Telephone (RADTSA) PABLO BECKMAN ([id number]) 1955 M Date Time Provider Department 05/23/23 Quinton GONZÁLES During your visit today, we recorded the following information about you: Josefina Anderson RN 05/23/2023 9:44 AM Signed PT called in to schedule follow up for this year. He will also need PSA. Please sign pended order and we will fax to [facility]. Josefina Anderson RN Allergies As of Date: 05/23/2023 (No Known Allergies) Date Reviewed: 06/24/2020 Reviewed by: Kamari Felecia - Fully Assessed Reason for Visit: Future Appointment [256] Primary Visit Diagnosis:Malignant neoplasm of prostate (HCC) [C61] Order(s):PSA/PROSTSPECAG DIAG [SQPSA] Order #: [id number] FUTURE Prescriptions as of 05/23/2023 - valACYclovir [...] Encounter Status:Closed by Quinton GONZÁLES on 05/23/23 [facility] Office Visiton 08-09-2022 Follow-up visit [id number] Hanna Beckman 1955 M Date Provider Department Center 08/09/2022 [id number] PONCE TIN Yanez [facility] Family History Problem Relation Age of Onset Stroke Mother Family Status - Relation Status Age at Mother Level of Service:75102 OR OFFICE/OUTPATIENT NEW HIGH MDM 60-74 MINUTES Normal [facility] SARS-CoV-2 (COVID-19) RNA ISIDRO+probe Ql (Unsp spec) Not detected Normal NOT DETECTED [facility] Comment on above: Result Comment: This test is not yet approved or cleared by the [place] FDA. When there are no FDA-approved or cleared tests available, and other criteria are met, FDA can make tests available under an emergency access mechanism called an Emergency Use Authorization (EUA). The EUA for this test is supported by the Charge Account Clerk of Health and Human Service's (HHS's) declaration [...] T SH, T7, LIPA, EMILY, CMP #### [facility] [address] [place] [address] Dr. Emely Adrian CBC AUTO DIFFon 03-09-2022 BASO # 0.0 103/ul Normal 0.0-0.1 [facility] Comment on above: Performed By: #### T SH, T7, LIPA, EMILY, CMP #### [facility] [address] [address] [address] Emely Adrian Basophils/100 WBC (Bld) 0.1 % Critically low 0.2-2.0 [facility] Comment on above: Performed By: #### T SH, T7, LIPA, EMILY, CMP #### [facility] [address] [place] [address] Dr. Emely Adrian EO # 0.2 103/ul Normal 0.0-0.7 [facility] Comment on above: Performed By: #### T SH, T7, LIPA, EMILY, CMP #### [facility] [address] [place] [address] Dr. Emely Adrian Eosinophils/100 WBC (Bld) 3.2 % Normal 0.9-7.0 [facility] Comment on above: Performed By: #### T SH, T7, LIPA, EMILY, CMP #### [facility] [address] [place] [address] Dr. Emely Adrian Erythrocyte distribution width (RBC) [Ratio] 15.8 % Critically high 11.0-15.0 [facility] Comment on above: Performed By: #### T SH, T7, LIPA, EMILY, CMP #### [facility] [address] [place] [address] Dr. Emely Adrian Hematocrit (Bld) [Volume fraction] 26.6 % Critically low 42.0-54.0 [facility] Comment on above: Performed By: #### T SH, T7, LIPA, EMILY, CMP #### [facility] [address] [place] [address] Dr. Emely Adrian Hemoglobin (Bld) [Mass/Vol] 9.0 g/dL Critically low 14.0-18.0 [facility] Comment on above: Performed By: #### T SH, T7, LIPA, EMILY, CMP #### [facility] [address] [place] [address] Dr. Emely Adrian IG # 0.05 10e3/ul Critically high 0.00-0.03 [facility] Comment on above: Performed By: #### T SH, T7, LIPA, EMILY, CMP #### [facility] [address] [place] [address] Dr. Emely Adrian IG % 0.7 % Critically high 0.0-0.5 [facility] Comment on above: Performed By: #### T SH, T7, LIPA, EMILY, CMP #### [facility] [address] [place] [address] Dr. Emely Adrian LYMPH # 1.8 103/ul Normal 1.2-3.8 [facility] Comment on above: Performed By: #### T SH, T7, LIPA, EMILY, CMP #### [facility] [address] [place] [address] Dr. Emely Adrian Lymphocytes/100 WBC (Bld) 24.2 % Normal 20.5-60.0 [facility] Comment on above: Performed By: #### T SH, T7, LIPA, EMILY, CMP #### [facility] [address] [place] [address] Dr. Emely Adrian MANUAL DIFF REQ NO Normal [facility] Comment on above: Performed By: #### T SH, T7, LIPA, EMILY, CMP #### [facility] [address] [place] [address] Dr. Emely Adrian MCH (RBC) [Entitic mass] 32.7 pg Normal 25.9-34.0 [facility] Comment on above: Performed By: #### T SH, T7, LIPA, EMILY, CMP #### [facility] [address] [place] [address] Dr. Emely Adrian MCHC (RBC) [Mass/Vol] 33.8 g/dL Normal 29.9-35.2 [facility] Comment on above: Performed By: #### T SH, T7, LIPA, EMILY, CMP #### [facility] [address] [place] [address] Dr. Emely Adrian MCV (RBC) [Entitic vol] 96.7 fL Critically high 80.0-94.0 [facility] Comment on above: Performed By: #### T SH, T7, LIPA, EMILY, CMP #### [facility] [address] [place] [address] Dr. Emely Adrian MONO # 1.3 103/ul Critically high 0.3-0.8 [facility] Comment on above: Performed By: #### T SH, T7, LIPA, EMILY, CMP #### [facility] [address] [place] [address] Dr. Emely Adrian Monocytes/100 WBC (Bld) 18.0 % Critically high 1.7-12.0 [facility] Comment on above: Performed By: #### T SH, T7, LIPA, EMILY, CMP #### [facility] [address] [place] [address] Dr. Emely Adrian NEUT # 4.0 103/ul Normal 1.4-6.5 [facility] Comment on above: Performed By: #### T SH, T7, LIPA, EMILY, CMP #### [facility] [address] [place] [address] Dr. Emely Adrian Neutrophils/100 WBC (Bld) 53.8 % Normal 43.0-75.0 [facility] Comment on above: Performed By: #### T SH, T7, LIPA, EMILY, CMP #### [facility] [address] [place] [address] Dr. Emely Adrian Platelet mean volume (Bld) [Entitic vol] 8.7 fL Critically low 9.5-13.5 [facility] Comment on above: Performed By: #### T SH, T7, LIPA, EMILY, CMP #### [facility] [address] [place] [address] Dr. Emely Adrian PLT 320 103/ul Normal 150-450 [facility] Comment on above: Performed By: #### T SH, T7, LIPA, EMILY, CMP #### [facility] [address] [place] [address] Dr. Emely Adrian RBC 2.75 106/ul Critically low 4.70-6.10 [facility] Comment on above: Performed By: #### T SH, T7, LIPA, EMILY, CMP #### [facility] [address] [place] [address] Dr. Emely Adrian WBC 7.5 103/ul Normal 4.0-11.0 [facility] Comment on above: Performed By: #### T SH, T7, LIPA, EMILY, CMP #### [facility] [address] [place] [address] Dr. Emely Adrian LACTATE/LACTIC ACIDon 2021 Lactate [Moles/Vol] 0.7 mmol/L Normal 0.4-1.9 [facility] Comment on above: Performed By: #### T SH, T7, LIPA, EMILY, CMP #### [facility] [address] [place] [address] Dr. Emely Adrian LIPASEon 03-09-2022 Lipase [Catalytic activity/Vol] 386.0 U/L Normal 73.0-393.0 [facility] Comment on above: Performed By: #### C BC #### [facility] [address] [place] [address] Dr. Emely Adrian PROF 14(COMP METB)on 022 Albumin [Mass/Vol] 2.9 g/dL Critically low 3.4-5.0 [facility] Comment on above: Performed By: #### C MP #### [facility] [address] [place] [address] Dr. Emely Adrian Albumin/Globulin [Mass ratio] 0.7 {ratio} Normal [facility] Comment on above: Performed By: #### C MP #### [facility] [address] [place] [address] Dr. Emely Adrian ALP [Catalytic activity/Vol] 43 U/L Critically low 46-116 [facility] Comment on above: Performed By: #### C MP #### [facility] [address] [place] [address] Dr. Emely Adrian ALT [Catalytic activity/Vol] 23 U/L Normal 16-63 [facility] Comment on above: Performed By: #### C MP #### [facility] [address] [place] [address] Dr. Emely Adrian Anion gap [Moles/Vol] 13.4 mmol/L Normal [facility] Comment on above: Performed By: #### C MP #### [facility] [address] [place] [address] Dr. Emely Adrian AST [Catalytic activity/Vol] 21 U/L Normal 15-37 [facility] Comment on above: Performed By: #### C MP #### [facility] [address] [place] [address] Dr. Emely Adrian Bilirubin [Mass/Vol] 0.4 mg/dL Normal 0.2-1.0 [facility] Comment on above: Performed By: #### C MP #### [facility] [address] [address] [address] Emely Adrian Calcium [Mass/Vol] 8.3 mg/dL Critically low 8.5-10.1 [facility] Comment on above: Performed By: #### C MP #### [facility] [address] [address] [address] Emely Adrian Chloride [Moles/Vol] 104 mmol/L Normal 98-107 [facility] Comment on above: Performed By: #### C MP #### [facility] [address] [place] [address] Dr. Emely Adrian CO2 [Moles/Vol] 22.9 mmol/L Normal 21.0-32.0 [facility] Comment on above: Performed By: #### C MP #### [facility] [address] [address] [address] Emely Adrian Creatinine [Mass/Vol] 1.80 mg/dL Critically high 0.70-1.30 [facility] Comment on above: Performed By: #### C MP #### [facility] [address] [place] [address] Dr. Emely Adrian EGFR-AF OMANI 46 mL/min/1.73m2 Critically low >=60 [facility] Comment on above: Performed By: #### C MP #### [facility] [address] [address] [address] Emely Adrian EGFR-NON AF OMANI 38 mL/min/1.73m2 Critically low >=60 [facility] Comment on above: Performed By: #### C MP #### [facility] [address] [place] [address] Dr. Emely Adrian Globulin (S) [Mass/Vol] 4.3 g/dL Normal [facility] Comment on above: Performed By: #### C MP #### [facility] [address] [address] [address] Emely Adrian Glucose [Mass/Vol] 105 mg/dL Normal 74-[address] [facility] Comment on above: Performed By: #### C MP #### [facility] [address] [address] [address] Emely Adrian Potassium [Moles/Vol] 4.3 mmol/L Normal 3.5-5.1 [facility] Comment on above: Performed By: #### C MP #### [facility] [address] [address] [address] Emely Adrian Protein [Mass/Vol] 7.2 g/dL Normal 6.4-8.[address] [facility] Comment on above: Performed By: #### C MP #### [facility] [address] [place] [address] Dr. Emely Adrian Sodium [Moles/Vol] 136 mmol/L Normal 136-[address] [facility] Comment on above: Performed By: #### C MP #### [facility] [address] [address] [address] Emely Adrian Urea nitrogen [Mass/Vol] 35.0 mg/dL Critically high 7.0-18.0 [facility] Comment on above: Performed By: #### C MP #### [facility] [address] [place] [address] Dr. Emely Adrian Urea nitrogen/Creatinin e [Mass ratio] 19.4 mg/mg Normal [facility] Comment on above: Performed By: #### C MP #### [facility] [address] [place] [address] Dr. Emely Adrian PROTIMEon 03-09-2022 INR Coag (PPP) [Relative time] 1.12 {INR} Normal [facility] Comment on above: Performed By: #### P TT, PT #### [facility] [address] [place] [address] Dr. Emely Adrian INR GUIDELINES SEE BELOW Normal [facility] Comment on above: Result Comment: DUSTIN RED INR: 2.0 - 3.0 CONDITIONS NOT LISTED BELOW 2.5 - 3.5 FOR PROSTHETIC HEART VALVE REPLACEMENT 2.5 - 3.5 RECURRENT THROMBOSIS Performed By: #### P TT, PT #### [facility] [address] [address] [address] Emely Adrian PT Coag (PPP) [Time] 12.0 s Critically high 9.0-11.6 [facility] Comment on above: Performed By: #### P TT, PT #### [facility] [address] [address] [address] Emely Adrian PTTon 03-09-2022 aPTT Coag (Bld) [Time] 32.1 s Normal 22.3-36.2 [facility] Comment on above: Performed By: #### P TT, PT #### [facility] [address] [place] [address] Dr. Emely Adrian TROPONIN, HIGH SENSITIVITYon 03-09-2022 HSTROP 12.0 pg/mL Normal 4.0-76.1 [facility] Comment on above: Result Comment: CUT- OFF POINTS HAVE BEEN ESTABLISHED BASED ON THE FOURTH UNIVERSAL DEFINITIONS OF MYOCARDIAL INFARCTION. THE UPPER REFERENCE LIMIT (URL) OF TROPONIN, DEFINED THE 99TH PERCENTILE OF cTnI DISTRIBUTION IN A REFERENCE POPULATION, HAS BEEN CONFIRMED THE DECISION THRESHOLD FOR [place] DIAGNOSIS. Performed By: #### T SH, T7, LIPA, EMILY, CMP #### [facility] [address] [place] [address] Dr. Emely Adrian TYPE AND SCREENon 03-09-2022 TYPE AND SCREEN Negative Normal [facility] Comment on above: Performed By: #### T SH, T7, LIPA, EMILY, CMP #### [facility] [address] [place] [address] Dr. Emely Adrian XR CHEST 1 Von [...] PATRICIO ANTON Date: 2022-03-09 10:17 Normal [facility] CA 19-9on 02-26-2022 CA 19-9 4 U/mL Normal 0-35 [facility] Comment on above: Result Comment: [facility] Electrochemiluminescence Immunoassay (ECLIA) . Values obtained with different assay methods or kits cannot be used interchangeably. Results cannot be interpreted as absolute evidence of the presence or absence of malignant disease. Performed By: #### T SH, T7, LIPA, EMILY, CMP #### [facility] [address] [place] [address] Dr. Emely Adrian CEAon 02-26-2022 CEA 1.9 ng/mL Normal 0.0-4.7 [facility] Comment on above: Result Comment: Nons mokers <3.9 Smokers <5.6 . [facility] Electrochemiluminescence Immunoassay (ECLIA) . Values obtained with different assay methods or kits cannot be used interchangeably. Results cannot be interpreted as absolute evidence of the presence or absence of malignant disease. Performed By: #### T SH, T7, LIPA, EMILY, CMP #### [facility] [address] [place] [address] Dr. Emely Adrian H PYLORI ANTIBODY IGGon 02-08 H. PYLORI IGG ABS 1.19 Index Value Critically high 0.00-0. 79 [facility] Comment on above: Result Comment: Nega tive <0.80 Equivocal 0.80 - 0.89 Positive >0.89 Performed By: #### C BC #### [facility] [address] [place] [address] Dr. Emely Adrian AMYLASEon 02-25-2022 Amylase [Catalytic activity/Vol] 118 U/L Critically high 25-115 [facility] Comment on above: Performed By: #### T SH, T7, LIPA, EMILY, CMP #### [facility] [address] [place] [address] Dr. Emely Adrian CBC AUTO DIFFon 02-25-2022 BASO # 0.0 103/ul Normal 0.0-0.1 [facility] Comment on above: Performed By: #### T SH, T7, LIPA, EMILY, CMP #### [facility] [address] [place] [address] Dr. Emely Adrian Basophils/100 WBC (Bld) 0.2 % Normal 0.2-2.0 [facility] Comment on above: Performed By: #### T SH, T7, LIPA, EMILY, CMP #### [facility] [address] [place] [address] Dr. Emely Adrian EO # 0.1 103/ul Normal 0.0-0.7 [facility] Comment on above: Performed By: #### T SH, T7, LIPA, EMILY, CMP #### [facility] [address] [place] [address] Dr. Emely Adrian Eosinophils/100 WBC (Bld) 2.8 % Normal 0.9-7.0 [facility] Comment on above: Performed By: #### T SH, T7, LIPA, EMILY, CMP #### [facility] [address] [place] [address] Dr. Emely Adrian Erythrocyte distribution width (RBC) [Ratio] 15.6 % Critically high 11.0-15.0 [facility] Comment on above: Performed By: #### T SH, T7, LIPA, EMILY, CMP #### [facility] [address] [place] [address] Dr. Emely Adrian Hematocrit (Bld) [Volume fraction] 28.9 % Critically low 42.0-54.0 [facility] Comment on above: Performed By: #### T SH, T7, LIPA, EMILY, CMP #### [facility] [address] [place] [address] Dr. Emely Adrian Hemoglobin (Bld) [Mass/Vol] 9.5 g/dL Critically low 14.0-18.0 [facility] Comment on above: Performed By: #### T SH, T7, LIPA, EMILY, CMP #### [facility] [address] [place] [address] Dr. Emely Adrian IG # 0.04 10e3/ul Critically high 0.00-0.03 [facility] Comment on above: Performed By: #### T SH, T7, LIPA, EMILY, CMP #### [facility] [address] [place] [address] Dr. Emely Adrian IG % 0.9 % Critically high 0.0-0.5 [facility] Comment on above: Performed By: #### T SH, T7, LIPA, EMILY, CMP #### [facility] [address] [place] [address] Dr. Emely Adrian LYMPH # 1.3 103/ul Normal 1.2-3.8 [facility] Comment on above: Performed By: #### T SH, T7, LIPA, EMILY, CMP #### [facility] [address] [place] [address] Dr. Emely Adrian Lymphocytes/100 WBC (Bld) 29.6 % Normal 20.5-60.0 [facility] Comment on above: Performed By: #### T SH, T7, LIPA, EMILY, CMP #### [facility] [address] [place] [address] Dr. Emely Adrian MANUAL DIFF REQ NO Normal [facility] Comment on above: Performed By: #### T SH, T7, LIPA, EMILY, CMP #### [facility] [address] [place] [address] Dr. Emely Adrian MCH (RBC) [Entitic mass] 32.1 pg Normal 25.9-34.0 [facility] Comment on above: Performed By: #### T SH, T7, LIPA, EMILY, CMP #### [facility] [address] [place] [address] Dr. Emely Adrian MCHC (RBC) [Mass/Vol] 32.9 g/dL Normal 29.9-35.2 [facility] Comment on above: Performed By: #### T SH, T7, LIPA, EMILY, CMP #### [facility] [address] [place] [address] Dr. Emely Adrian MCV (RBC) [Entitic vol] 97.6 fL Critically high 80.0-94.0 [facility] Comment on above: Performed By: #### T SH, T7, LIPA, EMILY, CMP #### [facility] [address] [place] [address] Dr. Emely Adrian MONO # 0.8 103/ul Normal 0.3-0.8 [facility] Comment on above: Performed By: #### T SH, T7, LIPA, EMILY, CMP #### [facility] [address] [place] [address] Dr. Emely Adrian Monocytes/100 WBC (Bld) 17.2 % Critically high 1.7-12.0 [facility] Comment on above: Performed By: #### T SH, T7, LIPA, EMILY, CMP #### [facility] [address] [place] [address] Dr. Emely Adrian NEUT # 2.2 103/ul Normal 1.4-6.5 [facility] Comment on above: Performed By: #### T SH, T7, LIPA, EMILY, CMP #### [facility] [address] [place] [address] Dr. Emely Adrian Neutrophils/100 WBC (Bld) 49.3 % Normal 43.0-75.0 [facility] Comment on above: Performed By: #### T SH, T7, LIPA, EMILY, CMP #### [facility] [address] [place] [address] Dr. Emely Adrian Platelet mean volume (Bld) [Entitic vol] 9.2 fL Critically low 9.5-13.5 [facility] Comment on above: Performed By: #### T SH, T7, LIPA, EMILY, CMP #### [facility] [address] [place] [address] Dr. Emely Adrian PLT 259 103/ul Normal 150-450 [facility] Comment on above: Performed By: #### T SH, T7, LIPA, EMILY, CMP #### [facility] [address] [place] [address] Dr. Emely Adrian RBC 2.96 106/ul Critically low 4.70-6.10 [facility] Comment on above: Performed By: #### T SH, T7, LIPA, EMILY, CMP #### [facility] [address] [place] [address] Dr. Emely Adrian WBC 4.4 103/ul Normal 4.0-11.0 [facility] Comment on above: Performed By: #### T SH, T7, LIPA, EMILY, CMP #### [facility] [address] [place] [address] Dr. Emely Adrian FREE THYROXINE INDEX T7on FTI 1.80 Normal 1.30-4.50 [facility] Comment on above: Performed By: #### T SH, T7, LIPA, EMILY, CMP #### [facility] [address] [place] [address] Dr. Emely Adrian T3U 34.0 % Normal 33.0-40.0 [facility] Comment on above: Performed By: #### T SH, T7, LIPA, EMILY, CMP #### [facility] [address] [place] [address] Dr. Emely Adrian T4 [Mass/Vol] 5.30 ug/dL Normal 4.50-12.10 [facility] Comment on above: Performed By: #### T SH, T7, LIPA, EMILY, CMP #### [facility] [address] [place] [address] Dr. Emely Adrian GI PANEL (PCR)on 02-25-2022 Adenovirus F 40/41 Not detected Normal NOT DETECTED [facility] Comment on above: Performed By: #### G IPANEL #### [facility] [address] [place] [address] Dr. Emely Adrian Astrovirus Not detected Normal NOT DETECTED [facility] Comment on above: Performed By: #### G IPANEL #### [facility] [address] [place] [address] Dr. Emely Adrian C. Diff toxin A/B Not detected Normal NOT DETECTED [facility] Comment on above: Performed By: #### G IPANEL #### [facility] [address] [place] [address] Dr. Emely Adrian Campylobacter Not detected Normal NOT DETECTED [facility] Comment on above: Performed By: #### G IPANEL #### [facility] [address] [place] [address] Dr. Emely Adrian Cryptosporidium Not detected Normal NOT DETECTED [facility] Comment on above: Performed By: #### G IPANEL #### [facility] [address] [address] [address] Emely Adrian Cyclos. Cayetanensis Not detected Normal NOT DETECTED [facility] Comment on above: Performed By: #### G IPANEL #### [facility] [address] [address] [address] Emely Adrian E. Coli O157 Not Applicable Normal Not Applicable [facility] Comment on above: Performed By: #### G IPANEL #### [facility] [address] [address] [address] Emely Adrian E. histolytica Not detected Normal NOT DETECTED [facility] Comment on above: Performed By: #### G IPANEL #### [facility] [address] [place] [address] Dr. Emely Adrian EAEC Not detected Normal NOT DETECTED [facility] Comment on above: Performed By: #### G IPANEL #### [facility] [address] [address] [address] Emely Adrian EIEC Not detected Normal NOT DETECTED [facility] Comment on above: Performed By: #### G IPANEL #### [facility] [address] [place] [address] Dr. Emely Adrian EPEC Not detected Normal NOT DETECTED [facility] Comment on above: Performed By: #### G IPANEL #### [facility] [address] [address] [address] Emely Adrian ETEC Not detected Normal NOT DETECTED [facility] Comment on above: Performed By: #### G IPANEL #### [facility] [address] [address] [address] Emely Alcantara. Lamblia Not detected Normal NOT DETECTED [facility] Comment on above: Performed By: #### G IPANEL #### [facility] [address] [place] [address] Dr. Emely Adrian GIPANEL CONTROLS PASSED Normal [facility] Comment on above: Performed By: #### G IPANEL #### [facility] [address] [address] [address] Emely RODRIGUEZ [facility] HEADER GI PANEL BACTERIA Normal T [facility] Comment on above: Performed By: #### G IPANEL #### [facility] [address] [place] [address] Dr. Emely KAHN ECOLI GI PANEL DIARRHEAGEN IC E.COLI / SHIGELLA Normal [facility] Comment on above: Performed By: #### G IPANEL #### [facility] [address] [place] [address] Dr. Emely KAHN INFO SEE BELOW Normal [facility] Comment on above: Result Comment: EAEC - Enteroaggregative E. Coli EPEC- Enteropathogenic E. Coli ETEC- Enterotoxigenic E. Coli lt/st STEC- Shigella-like toxin-producing E. Coli stx1/stx2 EIEC- Shigella/Enteroinvasive E. Coli Performed By: #### G IPANEL #### [facility] [address] [place] [address] Dr. Emely KAHN PARASITES GI PANEL PARASITES Normal [facility] Comment on above: Performed By: #### G IPANEL #### [facility] [address] [place] [address] Dr. Emely KAHN VIRUS GI PANEL VIRUSES Normal [facility] Comment on above: Performed By: #### G IPANEL #### [facility] [address] [place] [address] Dr. Emely Adrian Norovirus GI/GII Not detected Normal NOT DETECTED [facility] Comment on above: Performed By: #### G IPANEL #### [facility] [address] [place] [address] Dr. Emely Adrian P. Shigelloides Not detected Normal NOT DETECTED [facility] Comment on above: Performed By: #### G IPANEL #### [facility] [address] [place] [address] Dr. Emely Adrian Rotavirus A Not detected Normal NOT DETECTED [facility] Comment on above: Performed By: #### G IPANEL #### [facility] [address] [place] [address] Dr. Emely Adrian Salmonella Not detected Normal NOT DETECTED [facility] Comment on above: Performed By: #### G IPANEL #### [facility] [address] [place] [address] Dr. Emely Adrian Sapovirus Not detected Normal NOT DETECTED [facility] Comment on above: Performed By: #### G IPANEL #### [facility] [address] [place] [address] Dr. Emely Adrian STEC Not detected Normal NOT DETECTED [facility] Comment on above: Performed By: #### G IPANEL #### [facility] [address] [place] [address] Dr. Emely Adrian Vibrio Not detected Normal NOT DETECTED [facility] Comment on above: Performed By: #### G IPANEL #### [facility] [address] [place] [address] Dr. Emely Adrian Vibrio Cholera Not detected Normal NOT DETECTED [facility] Comment on above: Performed By: #### G IPANEL #### [facility] [address] [place] [address] Dr. Emely Adrian Y. Enterocolitica Not detected Normal NOT DETECTED [facility] Comment on above: Performed By: #### G IPANEL #### [facility] [address] [place] [address] Dr. Emely Adrian GLYCOHEMOGLOBIN A1Con 2021 ADA RECOMMENDATION SEE BELOW Normal [facility] Comment on above: Result Comment: ADA RECOMMENDED LIMIT 4.0 - 6.0 ADA THERAPEUTIC TARGET < 7.0 ACTION SUGGESTED > 7.0 Performed By: #### T SH, T7, LIPA, EMILY, CMP #### [facility] [address] [place] [address] Dr. Emely Adrian Glucose [Mass/Vol] 120 mg/dL Normal [facility] Comment on above: Performed By: #### T SH, T7, LIPA, EMILY, CMP #### [facility] [address] [place] [address] Dr. Emely Adrian HbA1c (Bld) [Mass fraction] 5.8 % Normal 4.5-6.2 [facility] Comment on above: Performed By: #### T SH, T7, LIPA, EMILY, CMP #### [facility] [address] [place] [address] Dr. Emely Adrian IRONon 02-25-2022 Iron [Mass/Vol] 55.0 ug/dL Critically low 65.0-175.0 [facility] Comment on above: Performed By: #### C BC #### [facility] [address] [place] [address] Dr. Emely Adrian LIPASEon 02-25-2022 Lipase [Catalytic activity/Vol] 671.0 U/L Critically high 73.0-393.0 [facility] Comment on above: Performed By: #### T SH, T7, LIPA, EMILY, CMP #### [facility] [address] [place] [address] Dr. Emely Adrian OCC BLD IMMUNO SCREENon 02-08 OCCULT BLOOD Positive Abnormal NEGATIVE [facility] Comment on above: Performed By: #### T SH, T7, LIPA, EMILY, CMP #### [facility] [address] [place] [address] Dr. Emely Adrian PROF 14(COMP METB)on 022 Albumin [Mass/Vol] 3.0 g/dL Critically low 3.4-5.0 Th [facility] Comment on above: Performed By: #### T SH, T7, LIPA, EMILY, CMP #### [facility] [address] [place] [address] Dr. Emely Adrian Albumin/Globulin [Mass ratio] 0.8 {ratio} Normal [facility] Comment on above: Performed By: #### T SH, T7, LIPA, EMILY, CMP #### [facility] [address] [place] [address] Dr. Emely Adrian ALP [Catalytic activity/Vol] 58 U/L Normal 46-116 [facility] Comment on above: Performed By: #### T SH, T7, LIPA, EMILY, CMP #### [facility] [address] [place] [address] Dr. Emely Adrian ALT [Catalytic activity/Vol] 25 U/L Normal 16-63 [facility] Comment on above: Performed By: #### T SH, T7, LIPA, EMILY, CMP #### [facility] [address] [place] [address] Dr. Emely Adrian Anion gap [Moles/Vol] 12.1 mmol/L Normal [facility] Comment on above: Performed By: #### T SH, T7, LIPA, EMILY, CMP #### [facility] [address] [place] [address] Dr. Emely Adrian AST [Catalytic activity/Vol] 20 U/L Normal 15-37 [facility] Comment on above: Performed By: #### T SH, T7, LIPA, EMILY, CMP #### [facility] [address] [place] [address] Dr. Emely Adrian Bilirubin [Mass/Vol] 0.2 mg/dL Normal 0.2-1.0 [facility] Comment on above: Performed By: #### T SH, T7, LIPA, EMILY, CMP #### [facility] [address] [place] [address] Dr. Emely Adrian Calcium [Mass/Vol] 8.3 mg/dL Critically low 8.5-10.1 Th [facility] Comment on above: Performed By: #### T SH, T7, LIPA, EMILY, CMP #### [facility] [address] [place] [address] Dr. Emely Adrian Chloride [Moles/Vol] 108 mmol/L Critically high 98-107 [facility] Comment on above: Performed By: #### T SH, T7, LIPA, EMILY, CMP #### [facility] [address] [place] [address] Dr. Emely Adrian CO2 [Moles/Vol] 24.5 mmol/L Normal 21.0-32.0 [facility] Comment on above: Performed By: #### T SH, T7, LIPA, EMILY, CMP #### [facility] [address] [place] [address] Dr. Emely Adrian Creatinine [Mass/Vol] 0.97 mg/dL Normal 0.70-1.30 [facility] Comment on above: Performed By: #### T SH, T7, LIPA, EMILY, CMP #### [facility] [address] [place] [address] Dr. Emely Adrian EGFR-AF OMANI >60 Normal >=60 [facility] Comment on above: Performed By: #### T SH, T7, LIPA, EMILY, CMP #### [facility] [address] [place] [address] Dr. Emely Adrian EGFR-NON AF OMANI >60 Normal >=60 [facility] Comment on above: Performed By: #### T SH, T7, LIPA, EMILY, CMP #### [facility] [address] [place] [address] Dr. Emely Adrian Globulin (S) [Mass/Vol] 3.8 g/dL Normal [facility] Comment on above: Performed By: #### T SH, T7, LIPA, EMILY, CMP #### [facility] [address] [place] [address] Dr. Emely Adrian Glucose [Mass/Vol] 97 mg/dL Normal 74-106 [facility] Comment on above: Performed By: #### T SH, T7, LIPA, EMILY, CMP #### [facility] [address] [place] [address] Dr. Emely Adrian Potassium [Moles/Vol] 4.6 mmol/L Normal 3.5-5.1 [facility] Comment on above: Performed By: #### T SH, T7, LIPA, EMILY, CMP #### [facility] [address] [place] [address] Dr. Emely Adrian Protein [Mass/Vol] 6.8 g/dL Normal 6.4-8.2 [facility] Comment on above: Performed By: #### T SH, T7, LIPA, EMILY, CMP #### [facility] [address] [place] [address] Dr. Emely Adrian Sodium [Moles/Vol] 140 mmol/L Normal 136-145 [facility] Comment on above: Performed By: #### T SH, T7, LIPA, EMILY, CMP #### [facility] [address] [place] [address] Dr. Emely Adrian Urea nitrogen [Mass/Vol] 20.0 mg/dL Critically high 7.0-18.0 [facility] Comment on above: Performed By: #### T SH, T7, LIPA, EMILY, CMP #### [facility] [address] [place] [address] Dr. Emely Adrian Urea nitrogen/Creatinin e [Mass ratio] 20.6 mg/mg Normal [facility] Comment on above: Performed By: #### T SH, T7, LIPA, EMILY, CMP #### [facility] [address] [place] [address] Dr. mEely Adrian TSHon 02-25-2022 TSH 1.247 uIU/mL Normal 0.358-3.740 [facility] Comment on above: Performed By: #### T BASIM, T7, LIPA, EMILY, CMP #### [facility] [address] [place] [address] Dr. Emely Adrian VITAMIN D 25 OHon 02-25-2022 VIT D 25-OH 23.9 ng/mL Normal [facility] Comment on above: Performed By: #### C BC #### [facility] [address] [place] [address] Dr. Emely Adrian VIT D RANGES SEE BELOW Normal [facility] Comment on above: Result Comment: <20 ng/mL Vit D deficient 20 - <30 ng/mL Vit D insufficient 30 - 100 ng/mL Vit D sufficient >100 ng/mL Potential Toxicity Performed By: #### C BC #### [facility] [address] [place] [address] Dr. Emely Adrian CREATININEon 12-30-2021 Creatinine [Mass/Vol] 1.21 mg/dL Normal 0.70-1.30 [facility] Comment on above: Performed By: #### T SH, T7, LIPA, EMILY, CMP #### [facility] [address] [place] [address] Dr. Emely Adrian EGFR-AF OMANI >60 Normal >=60 [facility] Comment on above: Performed By: #### T SH, T7, LIPA, EMILY, CMP #### [facility] [address] [place], [place] [address] Dr. Emely Adrian EGFR-NON AF OMANI =60 Normal >=60 [facility] Comment on above: Performed By: #### T SH, T7, LIPA, EMILY, CMP #### [facility] [address] [place], [place] [address] CHEST WO W [...] KIRK CRUZ Date: 2021-12-30 08:46 Normal [facility] NM STRESS/REST MULTIon 11-09 NM STRESS/REST MULTI Patient: PABLO BECKMAN Exam Date: 11/09/2021 : 1955 Gender:M Ordering : DR LV HEARD . Admission #: [id number] Family : Order #: [id number] CLICK HERE TO VIEW EXAM RADIOLOGY REPORT [...] M.D. on 11/09/2021 at 14:17 Normal [facility] CARDIAC PHILIP 3-6on 2 CK [Catalytic activity/Vol] 114 U/L Normal 39-308 [facility] Comment on above: Performed By: #### T SH, T7, LIPA, EMILY, CMP #### [facility] [address] [address] [address] Emely Adrian CK.MB [Mass/Vol] 1.75 ng/mL Normal <=3.60 [facility] Comment on above: Performed By: #### T SH, T7, LIPA, EMILY, CMP #### [facility] [address] [address] [address] Emely Adrian HSTROP 10.8 pg/mL Normal 4.0-76.1 [facility] Comment on above: Result Comment: CUT- OFF POINTS HAVE BEEN ESTABLISHED BASED ON THE FOURTH UNIVERSAL DEFINITIONS OF MYOCARDIAL INFARCTION. THE UPPER REFERENCE LIMIT (URL) OF TROPONIN, DEFINED THE 99TH PERCENTILE OF cTnI DISTRIBUTION IN A REFERENCE POPULATION, HAS BEEN CONFIRMED THE DECISION THRESHOLD FOR VT DIAGNOSIS. Performed By: #### T SH, T7, LIPA, EMILY, CMP #### [facility] [address] [place] [address] Dr. Emely Adrian CK [Catalytic activity/Vol] 122 U/L Normal 39-308 [facility] Comment on above: Performed By: #### T SH, T7, LIPA, EMILY, CMP #### [facility] [address] [place] [address] Dr. Emely GRANT.MB [Mass/Vol] 2.59 ng/mL Normal <=3.60 [facility] Comment on above: Performed By: #### T SH, T7, LIPA, EMILY, CMP #### [facility] [address] [place] [address] Dr. Emely Adrian HSTROP 10.5 pg/mL Normal 4.0-76.1 [facility] Comment on above: Result Comment: CUT- OFF POINTS HAVE BEEN ESTABLISHED BASED ON THE FOURTH UNIVERSAL DEFINITIONS OF MYOCARDIAL INFARCTION. THE UPPER REFERENCE LIMIT (URL) OF TROPONIN, DEFINED THE 99TH PERCENTILE OF cTnI DISTRIBUTION IN A REFERENCE POPULATION, HAS BEEN CONFIRMED THE DECISION THRESHOLD FOR VT DIAGNOSIS. Performed By: #### T SH, T7, LIPA, EMILY, CMP #### [facility] [address] [place] [address] Dr. Emely Adrian CK [Catalytic activity/Vol] 130 U/L Normal 39-308 [facility] Comment on above: Performed By: #### C BC #### [facility] [address] [place] [address] Dr. Emely GRANT.MB [Mass/Vol] 2.10 ng/mL Normal <=3.60 [facility] Comment on above: Performed By: #### C BC #### [facility] [address] [place] [address] Dr. Yilan Adrian HSTROP 10.2 pg/mL Normal 4.0-76.1 [facility] Comment on above: Result Comment: CUT- OFF POINTS HAVE BEEN ESTABLISHED BASED ON THE FOURTH UNIVERSAL DEFINITIONS OF MYOCARDIAL INFARCTION. THE UPPER REFERENCE LIMIT (URL) OF TROPONIN, DEFINED THE 99TH PERCENTILE OF cTnI DISTRIBUTION IN A REFERENCE POPULATION, HAS BEEN CONFIRMED THE DECISION THRESHOLD FOR VT DIAGNOSIS. Performed By: #### C BC #### [facility] [address] [place] [address] Dr. Emely Adrian CARDIAC PHILIP ADMITon 022 CK [Catalytic activity/Vol] 164 U/L Normal 39-308 [facility] Comment on above: Performed By: #### C BC #### [facility] [address] [place] [address] Dr. Emely Adrian CK.MB [Mass/Vol] 3.38 ng/mL Normal <=3.60 [facility] Comment on above: Performed By: #### C BC #### [facility] [address] [place] [address] Dr. Emely Adrian HSTROP 9.5 pg/mL Normal 4.0-76.1 [facility] Comment on above: Result Comment: CUT- OFF POINTS HAVE BEEN ESTABLISHED BASED ON THE FOURTH UNIVERSAL DEFINITIONS OF MYOCARDIAL INFARCTION. THE UPPER REFERENCE LIMIT (URL) OF TROPONIN, DEFINED THE 99TH PERCENTILE OF cTnI DISTRIBUTION IN A REFERENCE POPULATION, HAS BEEN CONFIRMED THE DECISION THRESHOLD FOR VT DIAGNOSIS. Performed By: #### C BC #### [facility] [address] [place] [address] Dr. Emely Adrian ADY 124 ng/mL Critically high 16-96 [facility] Comment on above: Performed By: #### C BC #### [facility] [address] [place] [address] Dr. Emely Adrian CBC AUTO DIFFon 10-27-2021 BASO # 0.0 103/ul Normal 0.0-0.1 [facility] Comment on above: Performed By: #### C BC #### [facility] [address] [place] [address] Dr. Emely Adrian Basophils/100 WBC (Bld) 0.1 % Critically low 0.2-2.0 [facility] Comment on above: Performed By: #### C BC #### [facility] [address] [place] [address] Dr. Emely Adrian EO # 0.3 103/ul Normal 0.0-0.7 [facility] Comment on above: Performed By: #### C BC #### [facility] [address] [place] [address] Dr. Emely Adrian Eosinophils/100 WBC (Bld) 3.2 % Normal 0.9-7.0 [facility] Comment on above: Performed By: #### C BC #### [facility] [address] [place] [address] Dr. Emely Adrian Erythrocyte distribution width (RBC) [Ratio] 13.6 % Normal 11.0-15.0 [facility] Comment on above: Performed By: #### C BC #### [facility] [address] [place] [address] Dr. Emely Adrian Hematocrit (Bld) [Volume fraction] 32.2 % Critically low 42.0-54.0 [facility] Comment on above: Performed By: #### C BC #### [facility] [address] [place] [address] Dr. Emely Adrian Hemoglobin (Bld) [Mass/Vol] 10.5 g/dL Critically low 14.0-18.0 [facility] Comment on above: Performed By: #### C BC #### [facility] [address] [place] [address] Dr. Emely Adrian IG # 0.05 10e3/ul Critically high 0.00-0.03 [facility] Comment on above: Performed By: #### C BC #### [facility] [address] [place] [address] Dr. Emely Adrian IG % 0.6 % Critically high 0.0-0.5 [facility] Comment on above: Performed By: #### C BC #### [facility] [address] [place] [address] Dr. Emely Adrian LYMPH # 1.7 103/ul Normal 1.2-3.8 [facility] Comment on above: Performed By: #### C BC #### [facility] [address] [place] [address] Dr. Emely Adrian Lymphocytes/100 WBC (Bld) 19.7 % Critically low 20.5-60.0 [facility] Comment on above: Performed By: #### C BC #### [facility] [address] [place] [address] Dr. Emely Adrian MANUAL DIFF REQ NO Normal [facility] Comment on above: Performed By: #### C BC #### [facility] [address] [place] [address] Dr. Emely Adrian MCH (RBC) [Entitic mass] 31.7 pg Normal 25.9-34.0 [facility] Comment on above: Performed By: #### C BC #### [facility] [address] [place] [address] Dr. Emely Adrian MCHC (RBC) [Mass/Vol] 32.6 g/dL Normal 29.9-35.2 [facility] Comment on above: Performed By: #### C BC #### [facility] [address] [place] [address] Dr. Emely Adrian MCV (RBC) [Entitic vol] 97.3 fL Critically high 80.0-94.0 [facility] Comment on above: Performed By: #### C BC #### [facility] [address] [place] [address] Dr. Emely Adrian MONO # 1.0 103/ul Critically high 0.3-0.8 [facility] Comment on above: Performed By: #### C BC #### [facility] [address] [place] [address] Dr. Emely Adrian Monocytes/100 WBC (Bld) 12.4 % Critically high 1.7-12.0 [facility] Comment on above: Performed By: #### C BC #### [facility] [address] [place] [address] Dr. Emely Adrian NEUT # 5.4 103/ul Normal 1.4-6.5 [facility] Comment on above: Performed By: #### C BC #### [facility] [address] [address] [address] Emely Adrian Neutrophils/100 WBC (Bld) 64.0 % Normal 43.0-75.0 [facility] Comment on above: Performed By: #### C BC #### [facility] [address] [address] [address] Emely Adrian Platelet mean volume (Bld) [Entitic vol] 9.2 fL Critically low 9.5-13.5 [facility] Comment on above: Performed By: #### C BC #### [facility] [address] [place] [address] Dr. Emely Adrian PLT 417 103/ul Normal 150-450 [facility] Comment on above: Performed By: #### C BC #### [facility] [address] [place] [address] Dr. Emely Adrian RBC 3.31 106/ul Critically low 4.70-6.10 [facility] Comment on above: Performed By: #### C BC #### [facility] [id number] Emely Adrian WBC 8.4 103/ul Normal 4.0-11.0 [facility] Comment on above: Performed By: #### C BC #### [facility] [address] [place] [address] Dr. Emely Adrian CTA CHEST WO W [...] KIRK CRUZ Date: 2021-10-27 06:37 Normal [facility] Covid-19 PCR (CVDTB)on 10-09 SARS-CoV-2 (COVID-19) RNA ISIDRO+probe Ql (Unsp spec) Not detected Normal NOT DETECTED [facility] Comment on above: Result Comment: When diagnostic [...] for this test is supported by the Charge Account Clerk of Health and Human Service's declaration that [...] T BASIM, T7, LIPSergio, EMILY, CMP #### [facility] [address] [place] [address] Dr. Emely Adrian D-DIMERon 10-27-2021 D-DIMER 2.19 mg/L FEU Critically high <=0.59 [facility] Comment on above: Performed By: #### T SH, T7, LIPA, EMILY, CMP #### [facility] [address] [address] [address] Emely Adrian D-DIMER COMMENTS SEE BELOW Normal [facility] Comment on above: Result Comment: Incr [...] T SH, T7, LIPSergio EMILY, CMP #### [facility] [address] [address] [address] Emely Adrian DIGOXINon 10-27-2021 DIG <0.2 Critically low 0.9-2.0 [facility] Comment on above: Performed By: #### T SH, T7, LIPEMILY Hill, CMP #### [facility] [address] [place] [address] Dr. Emely Adrian ECHOCARDIO M/2D COMPLETEon 0 10-27-2021 ECHOCARDIO M/2D COMPLETE Patient: PABLO BECKMAN Exam Date: 10/27/2021 : 1955 Gender:M Ordering : DR LV HEARD . Admission #: [id number] Family : Order #: [id number] CLICK HERE TO VIEW EXAM ECHOCARDIOGRAM REPORT [...] M.D. on 10/27/2021 at 17:01 Normal [facility] LACTATE/LACTIC ACIDon 2021 Lactate [Moles/Vol] 0.5 mmol/L Normal 0.4-1.9 [facility] Comment on above: Performed By: #### T SH, T7, LIPA, EMILY, CMP #### [facility] [address] [address] [address] Emely Adrian Lactate [Moles/Vol] 0.5 mmol/L Normal 0.4-1.9 [facility] Comment on above: Performed By: #### C BC #### [facility] [address] [address] [address] Emely Adrian PROF CHEM 8 (BAS METB)on Anion gap [Moles/Vol] 15.3 mmol/L Normal [facility] Comment on above: Performed By: #### C BC #### [facility] [address] [address] [address] Emely Adrian Calcium [Mass/Vol] 9.1 mg/dL Normal 8.5-10.[address] [facility] Comment on above: Performed By: #### C BC #### [facility] [address] [address] [address] Emely Adrian Chloride [Moles/Vol] 105 mmol/L Normal 98-107 [facility] Comment on above: Performed By: #### C BC #### [facility] [address] [address] [address] Emely Adrian CO2 [Moles/Vol] 26.6 mmol/L Normal 21.0-32.0 [facility] Comment on above: Performed By: #### C BC #### [facility] [address] [address] [address] Emely Adrian Creatinine [Mass/Vol] 1.29 mg/dL Normal 0.70-1.30 [facility] Comment on above: Performed By: #### C BC #### [facility] [address] [place] [address] Dr. Emely Adrian EGFR-AF OMANI >60 Normal >=60 [facility] Comment on above: Performed By: #### C BC #### [facility] [address] [place] [address] Dr. Emely Adrian EGFR-NON AF OMANI 56 mL/min/1.73m2 Critically low >=60 [facility] Comment on above: Performed By: #### C BC #### [facility] [address] [place] [address] Dr. Emely Adrian Glucose [Mass/Vol] 100 mg/dL Normal 74-106 [facility] Comment on above: Performed By: #### C BC #### [facility] [address] [place] [address] Dr. Emely Adrian Potassium [Moles/Vol] 3.9 mmol/L Normal 3.5-5.1 [facility] Comment on above: Performed By: #### C BC #### [facility] [address] [address] [address] Emely Adrian Sodium [Moles/Vol] 143 mmol/L Normal 136-145 [facility] Comment on above: Performed By: #### C BC #### [facility] [address] [address] [address] Emely Adrian Urea nitrogen [Mass/Vol] 28.0 mg/dL Critically high 7.0-18.0 [facility] Comment on above: Performed By: #### C BC #### [facility] [address] [place], [place] [address] Dr. Emely Adrian Urea nitrogen/Creatinin e [Mass ratio] 21.7 mg/mg Normal [facility] Comment on above: Performed By: #### C BC #### [facility] [address] [place], [place] [address] Dr. 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 Service Date: 04/07/2021 Division of Birthdate: 1955 Cardiology Room #: [facility] [address] [address] Cardiovascular Laboratory Report DATE OF PROCEDURE; 04/07/2021 [...] Weeks MD Date Trans: 04/09/2021 11:17 Sergio/ [id number] Normal [facility] Encounters Encounter Date Encounter Type Care Provider Facility Start: 08-08-2023 End: 08-08-2023 ambulatory MAMTA STEPHENSON [facility] Start: 06-21-2023 Telephone encounter Quinton Gonzáles MD Work Phone: Radiation Oncology Comment on above: Results; Appointment Start: 05-23-2023 Telephone encounter Qiunton Gonzáles MD Work Phone: Radiation Oncology Comment on above: Future Appointment Start: 08-09-2022 End: 08-09-2022 ambulatory CUBA PONCE [facility] Start: 06-23-2022 End: 06-23-2022 ambulatory Quinton Gonzáles MD Work Phone: Radiation Oncology Comment on above: Malignant neoplasm o f prostate (HCC) (Primary Dx) Start: 06-23-2022 End: 06-23-2022 Telemedicine consultation with patient Quinton Isidoro Gonzáles MD Work Phone: [place] Start: 06-23-2022 End: 06-24-2022 ambulatory LV HEARD Facility:[facility] Start: 06-22-2022 Telephone encounter Quinton Gonzáles MD Work Phone: Radiation Oncology Comment on above: Patient Question Start: 06-02-2022 End: 06-03-[address] JT GONZÁLES Facility:[facility] Start: 03-29-2022 End: 03-29-2022 Patient encounter procedure Patricio BEAUCHAMP General Surgery [facility] Start: 03-19-2022 Encounter for preprocedural laboratory examination DR PATRICIO BEAUCHAMP . [facility] Start: 03-18-2022 End: 03-18-[address] PATRICIO [...] TSH, T7, EMILY WIGGINS C MP #### [facility] [address] [place] [address] Dr. Emely Adrian Start: 03-18-2022 Colonoscopy Patricio [employer] Start: 03-18-2022 Esophagogastroduodenoscopy Patricio [employer] Start: 10-17-2018 Colonoscopy Patricio [employer] Start: 09-11-2009 Colonoscopy Patricio NILL Amputation of finger, except thumb Patricio NILL Arthroscopy of shoulder Meng aecandace MARTINEZL Implantation of radi oactive seed into prostate Patricio [employer] Open reduction of fr acture with internal fixation Patricio [facility] Comment on above: right leg Umbilical herniorrha phy using surgical sutures Patricio [employer] Plan of Treatment Date Care Activity Detail Author Start: 06-12-2028 Prostate specific antigen measurement Prostate Cancer Screening Discussion [facility] Start: 06-02-2027 PROSTATE CANCER SCREENING DISCUSSION PROSTATE CANCER SCREENING DISCUSSION [facility] Start: 06-02-2027 Prostate specific antigen measurement Prostate Cancer Screening Discussion [facility] Start: 06-12-2024 End: 09-11-2024 Prostate specific Ag [Mass/volume] in Serum or Plasma PSA/PROSTSPECAG DIAG Lab Routine Malignant neoplasm of prostate (HCC) Expected: 06/12/2024, Expires: 09/11/2024 [facility] Work Phone: Comment on above: Expected: 06/12/2024 , Expires: 09/11/2024 Start: 05-23-2023 End: 08-22-2023 Prostate specific Ag [Mass/volume] in Serum or Plasma PSA/PROSTSPECAG DIAG Lab Routine Malignant neoplasm of prostate (HCC) Expected: 05/23/2023, Expires: 08/22/2023 [facility] Work Phone: Comment on above: Expected: 05/23/2023 , Expires: 08/22/2023 Start: 04-10-2023 Advance Directive Discussion Advance Directive Discussion [facility] Start: 04-10-2023 Depression Assessment Depression Ass essment [facility] Start: 01-18-2023 Pneumococcal Vaccine : 65+ (2 of 2 - PPSV23 or PCV20) Pneumococcal Vaccine: 65+ (2 of 2 - PPSV23 or PCV20) [facility] Start: 12-09-2022 Covid-19 Vaccine () Covid-19 Vaccine () [facility] Start: 12-09-2022 Influenza vaccination Influenza Vacc ine (#1) [facility] Start: 04-10-2022 ADVANCE DIRECTIVE DISCUSSION ADVANCE DIRECTIVE DISCUSSION [facility] Start: 04-10-2022 DEPRESSION ASSESSMENT DEPRESSION ASS ESSMENT [facility] Start: 12-09-2021 Influenza vaccination INFLUENZA (#1) [facility] Start: 2021 PNEUMOCOCCAL: 65+ (1 - PCV) PNEUMOCOCCAL: 65+ (1 - PCV) [facility] Start: 09-24-2020 COVID-19 VACCINE (3 - Booster for Pfizer series) COVID-19 VACCINE (3 - Booster for Pfizer series) [facility] Start: 2016 RSV Vaccine (1 - 1-d ose 60+ series) RSV Vaccine (1 - 1-dose 60+ series) [facility] Start: 2006 SHINGRIX VACCINE (1 of 2) SHINGRIX VACCINE (1 of 2) [facility] Start: 2001 COLOGUARD (FIT-DNA) COLOGUARD (FIT-D NA) [facility] Start: 2001 Colonoscopy COLONOSCOPY [facility] Start: 2001 COLORECTAL CANCER SCREENING COLORECTAL CANCER SCREENING [facility] Start: [address] COLONOGRAPHY [facility] Start: 2001 DIABETES SCREEN [facility] Start: 2001 Diabetes Screening Diabetes Screenin g [facility] Start: 2001 FECAL OCCULT BLOOD FECAL OCCULT BLOO D [facility] Start: 2001 Screening for malign ant neoplasm of colon [facility] Start: 2001 [facility]OSCOPY [facility] Start: 10-21-1991 Lipid panel Lipid Screening [facility] Start: 10-21-1991 LIPID SCREEN LIPID SCREEN [facility] Start: 10-21-1975 Urine microalbumin profile [facility] Start: 1974 HEPATITIS C SCREENING HEPATITIS C [facility] Start: 1974 Hepatitis C screening Hepatitis C [facility] Start: 1974 HIV SCREENING HIV SCREENING [facility] Start: 1955 ABDOMINAL AORTIC ANEURYSM SCREENING ABDOMINAL AORTIC ANEURYSM SCREENING [facility] Start: 1955 Abdominal aortic aneurysm screening Abdominal Aortic Aneurysm Screening [facility] Immunizations Immunization Date Immunization Notes Care Provider Christian marte NEGATED: Highlighted row has not occurred!03-08-2022 influenza virus vaccine, unspecified formulation Patricio BEAUCHAMP General Surgery [place] Payers Date Payer Category Payer Medicare DEVOTED MEDICARE [facility] HMO [id number] 2023-Present [phone] [address] [place] [address] HMO [id number] 2023 Unknown [id number] 2022 Private Health Insurance [facility] CHOICE PLUS [id number] 2022-Present [phone] [address] [place] [address] HMO [id number] 2006 Unknown [facility] GENERIC [id number] 2006-Present [phone] [place] [address] [id number] 1959 Unknown [id number] 1959 Unknown [id number] 1955 Unknown [id number] .[id number] 1955 Unknown [id number] .[id number] 1955 Unknown [id number] .2.593 1955 Unknown [id number] .[id number] 1955 Unknown [id number] .[id number] 1955 Unknown [id number] .2.593 1955 Unknown [id number] .2.593 1955 Unknown [id number] .[id number] 1955 Unknown [id number] .[id number] Social History Date Type Detail Facility Start: 06-24-2020 End: 03-08-2022 Tobacco smoking status Ex-smoker (finding) [facility] [place] Tobacco smoking status Never [facility] Start: 06-24-2020 End: 06-23-2022 Sex Assigned At Male Denny Emma Owens [facility] End: 06-10-1989 History of tobacco use Current smoker [facility] End: 06-10-1989 History of tobacco use Cigarette Smoker [facility] Start: 06-24-2020 End: 06-23-2022 Cigarettes smoked current (pack per day) - Reported 1.5 [facility] Start: 03-17-2021 Tobacco use and exposure Smokeless tobacco non-user [facility] Start: 06-24-2020 Alcohol intake Not Asked [facility] Start: 1955 Sex Assigned At Not on file C [facility] Clinical Notes 03-18-2022 to 08-08-2023 Telephone Encounter - Latisha RojasDEVIKA - 06/21/2023 2:40 PM EDTTelephone Encounter - Josefina Anderson RN - 05/23/2023 9:43 AM GET Gonzáles MD - 06/23/2022 10:11 AM EDT Note Date & Type Note Facility 08-08-2023 Note Cardiovascular Medic [facility] SUBJECTIVE Chief Complaint Patient presents with Follow-up [...] cuts himself at work. 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 He denies any changes since last seen [...] deficit present. Ment (more content not included)... [facility] 06-21-2023 Miscellaneous Notes Melvina called to reschedule [...] Latisha Rojas RN documented in this encounter [facility] 05-23-2023 Miscellaneous Notes PT called in to schedule follow up for this year. He will also need PSA. Please sign pended order and we will fax to [facility]. Josefina Anderson RN documented in this encounter [facility] 08-09-2022 Note [facility] Consult Note [...] cuts himself at work. 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 He denies any changes since last seen [...] no difficulty hearing, (more content not included)... [facility] 06-23-2022 Note HNO ID: [id number] Author: Quinton Gonzáles MD Service: ? Author [...] Time Spent: 6 minutes Quinton Gonzáles MD [facility] 06-23-2022 History of Present illness Narrative AMBULATORY [...] Quinton Gonzáles MD documented in this encounter [facility] 06-23-2022 Miscellaneous Notes Appointment has been changed in Epic. Kwaku Rasmussen Per Dr Gonzáles, mark to switch to phone visit. Patient was notified. PSS- please change in epic. Josefina Anderson RN Pablo called wondering if his follow up appointment can be switched to a phone visit tomorrow. Please advise. Latisha Rojas LPN documented in this encounter [facility] 03-18-2022 Note OPERATIVE NOTE OPERATION DATE: [...] good condition. CC: Lv Heard M.D. [facility] Evaluation + Plan note No data available for this section [facility] [place] Evaluation note Diagnosis Malignant neoplasm of prostate (HCC)- Primary Malignant neoplasm of prostate [facility] Diagnosis Malignant neoplasm of prostate (HCC)- Primary Malignant neoplasm of prostate documented in this encounter [facility] note* Diagnosis Malignant neoplasm of prostate (HCC)- Primary Malignant neoplasm of prostate documented in this encounter [facility] Discharge instructions No data available for this section [facility] [place] Progress note No data available for this section [facility] [place] Summary Purpose Family History No Family History [...] and content) DATE CREATED AUTHOR 04/15/2021 [facility] DATE CREATED AUTHOR AUTHOR'S ORGANIZ ATION 08/08/2022 [facility] DATE CREATED AUTHOR AUTHOR'S ORGANIZ ATION 06/16/2023 [facility] DATE CREATED AUTHOR AUTHOR'S ORGANIZ ATION 06/23/2023 [facility] DATE CREATED AUTHOR AUTHOR'S ORGANIZ ATION 08/09/2023 [facility] Patient Care team informatio n (unrecognized section and content) Pinion Staker Relationship Specialty Start Date End Date Lv Heard MD PCP - General 02/24/09 Pinion Staker Relationship Specialty Start Date End Date Lv Heard MD PCP - General 02/24/09 Source Comments (unrecognize d section and content) In the event this informatio n is protected by the Federal Confidentiality of Alcohol and Drug Abuse Patient Records regulations: The Federal rules restrict any use of the information to criminally investigate or prosecute any alcohol or drug abuse patient.[facility] the event this information is protected by the Federal Confidentiality of Alcohol and Drug Abuse Patient Records regulations: The Federal rules restrict any use of the information to criminally investigate or prosecute any alcohol or drug abuse patient.[facility] the event this information is protected by the Federal Confidentiality of Alcohol and Drug Abuse Patient Records regulations: The Federal rules restrict any use of the information to criminally investigate or prosecute any alcohol or drug abuse patient.[facility] the event this information is protected by the Federal Confidentiality of Alcohol and Drug Abuse Patient Records regulations: The Federal rules restrict any use of the information to criminally investigate or prosecute any alcohol or drug abuse patient.[facility] Reason for Visit (unrecogniz ed section and content) Reason Comments Patient Question Reason Comments Established Patient Specialty Diagnoses / Procedures Referred By Contac t Referred To Contact Radiation Oncology / RADIATION ONCOLOGY Diagnoses Follow-up examination 1 yr follow up, psa at [place] Procedures OFFICE/OUTPATIENT ESTABLISHED MOD MDM 30-39 MIN EST PATIENT Quinton Gonzáles MD [address] [place] [address] [place] [address] Quinton Gonzáles MD [address] [place] [address] [place] [address] Referral ID Status Reason Start Date Expiration Date Visits Re quested Visits Authorized [id number] Open 06/23/2022 09/21/2022 1 0 Reason Comments [...] BE BASED ON THE PRIMARY CLINICAL RECORDS. [employer] provides no warranty or guarantee of the accuracy or completeness of information in this document.
[2023-12-08 14:35] LABS: Basophils Percent Auto 0.1 % (0.2-2.0); Eosinophils Absolute Auto 0.3 10^3/uL (0.0-0.7); Eosinophils Percent Auto 3.3 % (0.9-7.0); Hematocrit 30.4 % (42.0-54.0); Hemoglobin 10.2 g/dL (14.0-18.0); Immature Granulocytes Abs Auto 0.02 10^3/uL (0.00-0.03); Immature Granulocytes Pct Auto 0.2 % (0.0-0.5); Lymphocytes Absolute Auto 1.8 10^3/uL (1.2-3.8); Lymphocytes Percent Auto 21.2 % (20.5-60.0); Mean Corpuscular HGB Conc 33.6 g/dL (29.9-35.2); Mean Corpuscular Hemoglobin 32.9 pg (25.9-34.0); Mean Corpuscular Volume 98.1 fL (80.0-94.0); Monocytes Absolute Auto 1.1 10^3/uL (0.3-0.8); Monocytes Percent Auto 13.7 % (1.7-12.0); Neutrophils Absolute Auto 5.1 10^3/uL (1.4-6.5); Neutrophils Percent Auto 61.5 % (43.0-75.0); Platelet Count 256 10^3/uL (150-450); Red Cell Distribution Width 14.4 % (11.0-15.0); White Blood Count 8.2 10^3/uL (4.0-11.0)
[2023-12-08 14:45] LABS: INR 1.11; Partial Thromboplastin Time 33.2 sec (22.3-36.2); Prothrombin Time 11.6 sec (9.0-11.6)
== END 2023-12-08 14:15 | disposition home or self-care (01) ==
LOC: LAB 14:15
PROVIDERS: PCP Family Medicine; Visit Provider Family Medicine
DX: R31.9 Hematuria, unspecified (principal)
CPT/HCPCS: 36415; 85025; 85610; 85730

== ENCOUNTER 2023-12-19 12:47 | Outpatient (OUT) | payer OTHER, SELFPAY ==
[2023-12-19 13:30] LABS: Basophils Percent Auto 0.1 % (0.2-2.0); Eosinophils Absolute Auto 0.2 10^3/uL (0.0-0.7); Eosinophils Percent Auto 2.6 % (0.9-7.0); Hemoglobin 10.2 g/dL (14.0-18.0); Immature Granulocytes Abs Auto 0.03 10^3/uL (0.00-0.03); Immature Granulocytes Pct Auto 0.4 % (0.0-0.5); Lymphocytes Percent Auto 23.5 % (20.5-60.0); Mean Corpuscular HGB Conc 32.9 g/dL (29.9-35.2); Mean Corpuscular Hemoglobin 32.5 pg (25.9-34.0); Mean Corpuscular Volume 98.7 fL (80.0-94.0); Mean Platelet Volume 9.3 fL (9.5-13.5); Monocytes Absolute Auto 1.5 10^3/uL (0.3-0.8); Monocytes Percent Auto 17.5 % (1.7-12.0); Neutrophils Absolute Auto 4.7 10^3/uL (1.4-6.5); Neutrophils Percent Auto 55.9 % (43.0-75.0); Platelet Count 294 10^3/uL (150-450); Red Blood Count 3.14 10^6/uL (4.70-6.10); Red Cell Distribution Width 15.3 % (11.0-15.0); White Blood Count 8.3 10^3/uL (4.0-11.0)
== END 2023-12-19 12:48 | disposition home or self-care (01) ==
LOC: LAB 12:48
PROVIDERS: PCP Family Medicine; Visit Provider Family Medicine
DX: D64.9 Anemia, unspecified (principal)
CPT/HCPCS: 36415; 85025

== ENCOUNTER 2024-02-03 20:29 | Observation (INO) | payer OTHER, SELFPAY ==
[2024-02-03 20:37] VITALS: BP 126/82; PULSE 80; TEMP 36.9; O2SAT 97; BMI 32.7
--- OUTSIDE RECORDS SUMMARY | 2024-02-03 20:37 | XMS_ITS | CCD ---
Author Organization [facility] Care Team Providers Care Machine Deburrer Name Role Phone MAMTA STEPHENSON Attending Unavailable SELF, REFERRED Primary Care Unavailable SELF, REFERRED Referring Unavailable MAMTA STEPHENSON Admitting Unavailable Lv Heard Primary Care Physician Lv Heard MD Primary Care Provider [phone] NILL ., DR CURRY Admitting Unavailable [...] DR AWAN Primary Care Unavailable PATRICIO ANTON Unavailable NITO Rosario, DR CURRY Admitting Unavailable NITO Rosario, DR CURRY Attending Unavailable NITO Rosario, DR CURRY Consulting Unavailable ROBSON Rosario, DR AWAN Primary Care Unavailable LV HEARD Primary Care Unavailable Quinton GONZÁLES Referring Unavailable Quinton GONZÁLES Attending Unavailable MAMTA STEPHENSON Attending Unavailable Medications [...] QID, # 120 tab(s), Refills(s) 3, Pharmacy: [facility] #[id number], 177.8, cm, 03/08/22 15:41:00 EST, Height/Length Dosing, [...] COVID-19; Translations: [PERSONAL HISTORY OF COVID-19] Onset: 2 Past or Other Problems Problem Classification Problem [...] 06-10-2014 06-10-2014 Episodic Other aftercare (1 source) 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; Translations: [PENITENTIARY CURRNT USE ANTICOAGULANTS] Onset: 03-24-2022 Episodic Other aftercare (1 source) buttermaker helper (current) use of aspirin; Translations: [PHARMACISTS CURRENT USE OF ASPIRIN] Onset: 03-24-2022 Episodic Other aftercare (1 source) Other buttermaker helper (current) drug therapy; Translations: [OTH PHARMACISTS CURRENT DRUG THERAPY] Onset: 03-24-2022 Episodic Other circulatory disease (1 source) Hypotension, unspecified; Translations: [HYPOTENSION UNSPECIFIED] Onset: 03-13-2022 Episodic Other diseases of kidney and ureters (1 source) Disorder of kidney and ureter, unspecified; Translations: [DISORDER KIDNEY AND URETER UNS] Onset: 12-04-2022 Episodic Other gastrointestinal disorders (1 source) Diarrhea, [...] Test Name Value Interpretation Reference Range Facility 36on 12-08-2023 36 I called and let Dr. Heard's office know of Jazz's recommendation. I also asked them to fax over the shared decision making from Dr. Heard so we can get the patient scheduled to see Jazz in office to discuss LAAO. [facility] 36 Yes, recommend roni ng Eliquis until seen by GI and clearance from them that he can resume. We can ask Dr. Heard to comment if he recommends patient for Watchman and to note this in his office note. Thanks [facility] 36 Dr. Heard's office maddi led asking for recommendations for Eliquis hold s/p significant red blood in stools. He was seen in [facility] ED on 12/05. I have uploaded records into manager social media for your review. There's no discharge summary or H&P. Just an ED report. Dr. Heard's office said Dr. Heard has him holding Eliquis for now. Please advise. Thanks. [facility] Office Visiton 08-08-2023 Follow-up visit [id number] Hanna Beckman 1955 M Date Provider Department Center 08/08/2023 [id number], MAMTA BH CARD [facility] Family History Problem Relation Age of Onset Stroke Mother Family Status - Relation Status Age at Mother Level of Service:10332 [place] OFFICE/OUTPATIENT ESTABLISHED [facility] 30 MIN Reason for Visit and Comments: Follow-up [014579] - 1 year Normal [facility] Jason 06-21-2023 CNPN Telephone (RADTSA) PABLO BECKMAN ([id number]) 1955 M Date Time Provider Department 06/21/23 [...] results are good. Please advise. TOOTIE Hall Tiffany 06/22/2023 7:10 AM Signed Appts are scheduled thank you. Allergies As of Date: 06/21/2023 (No Known Allergies) Date Reviewed: 06/24/2020 Reviewed by: Kamari July - Fully Assessed Reason for Visit: Results [95] Appointment [186] Primary Visit Diagnosis:Malignant neoplasm of prostate (HCC) [C61] Order(s):PSA/PROSTSPECAG DIAG [SQPSA] Order #: [id number] FUTURE Prescriptions as of 06/22/2023 - valACYclovir [...] EXTRA STRENGTH ORAL) Take by mouth. - TURSANTINO HUI, MISC Problem List As Of Date 06/21/2023 Noted Resolved Personal history of prostate cancer [Z85.46] 10/31/2013 Radiotherapy follow-up [Z09] 06/10/2014 Encounter Status:Closed by Quinton GONZÁLES on 06/21/23 Normal [facility] Reportson 06-15-2023 Lab Reports [id number] Normal [facility] Physician Referralon 024 Physician Referral [id number] [facility] CNPNon 05-23-2023 CNPN Telephone (RADTSA) PABLO BECKMAN ([id number]) 1955 Date Time Provider Department 05/23/23 Quinton GONZÁLES RADTSA During your visit today, we recorded the following information about you: Josefina Anderson RN 05/23/2023 9:44 AM Signed PT called in to schedule follow up for this year. He will also need PSA. Please sign pended order and we will fax to [facility]. Josefina Anderson RN Allergies As of Date: 05/23/2023 (No Known Allergies) Date Reviewed: 06/24/2020 Reviewed by: Felecia Benites - Fully Assessed Reason for Visit: Future Appointment [256] Primary Visit Diagnosis:Malignant neoplasm of prostate (HCC) [C61] Order(s):PSA/PROSTSPECAG DIAG [SQPSA] Order #: [id number] FUTURE Prescriptions as of 05/23/2023 - valACYclovir [...] Status:Closed by Quinton GONZÁLES on 05/23/23 Normal [facility] Cov[facility])on SARS-CoV-2 (COVID-19) RNA ISIDRO+probe Ql (Unsp spec) [...] for this test is supported by the [place] of Health and Human Service's (HHS's) declaration [...] consistent with SARS-CoV-2. Performed By: #### T BASIM, Royer, FELICIANO, EMILY, CMP #### [facility] [address] [place], [place] [address] Dr. Emely Adrian CBC AUTO DIFFon 03-09-2022 BASO # 0.0 103/ul Normal 0.0-0.1 [facility] Comment on above: Performed By: #### T SH, T7, LIPA, EMILY, CMP #### [facility] [address] [place] [address] Dr. Emely Adrian Basophils/100 WBC (Bld) 0.1 % Critically low 0.2-2.0 [facility] Comment on above: Performed By: #### T SH, T7, LIPA, EMILY, CMP #### [facility] [address] [place] [address] Dr. Emely Adrian EO # 0.2 103/ul Normal 0.0-0.7 [facility] Comment on above: Performed By: #### T SH, T7, LIPA, EMILY, CMP #### [facility] [address] [place] [address] Dr. Emely Adrian Eosinophils/100 WBC (Bld) 3.2 % Normal 0.9-7.0 [facility] Comment on above: Performed By: #### T SH, T7, LIPA, EMILY, CMP #### [facility] [address] [place] [address] Dr. Emely Adrian Erythrocyte distribution width (RBC) [Ratio] 15.8 % Critically high 11.0-15.0 [facility] Comment on above: Performed By: #### T SH, T7, LIPA, EMILY, CMP #### [facility] [address] [place] [address] Dr. Emely Adrian Hematocrit (Bld) [Volume fraction] 26.6 % Critically low 42.0-54.0 [facility] Comment on above: Performed By: #### T SH, T7, LIPA, EMILY, CMP #### [facility] [address] [place] [address] Dr. Emely Adrian Hemoglobin (Bld) [Mass/Vol] 9.0 g/dL Critically low 14.0-18.0 [facility] Comment on above: Performed By: #### T SH, T7, LIPA, EMILY, CMP #### [facility] [address] [place] [address] Dr. Emely Adrian IG # 0.05 10e3/ul Critically high 0.00-0.03 [facility] Comment on above: Performed By: #### T SH, T7, LIPA, EMILY, CMP #### [facility] [address] [place] [address] Dr. Emely Adrian IG % 0.7 % Critically high 0.0-0.5 [facility] Comment on above: Performed By: #### T SH, T7, LIPA, EMILY, CMP #### [facility] [address] [place] [address] Dr. Emely Adrian LYMPH # 1.8 103/ul Normal 1.2-3.8 [facility] Comment on above: Performed By: #### T SH, T7, LIPA, EMILY, CMP #### [facility] [address] [place] [address] Dr. Emely Adrian Lymphocytes/100 WBC (Bld) 24.2 % Normal 20.5-60.0 [facility] Comment on above: Performed By: #### T SH, T7, LIPA, EMILY, CMP #### [facility] [address] [place] [address] Dr. Emely Adrian MANUAL DIFF REQ NO Normal [facility] Comment on above: Performed By: #### T SH, T7, LIPA, EMILY, CMP #### [facility] [address] [place] [address] Dr. Emely Adrian MCH (RBC) [Entitic mass] 32.7 pg Normal 25.9-34.0 [facility] Comment on above: Performed By: #### T SH, T7, LIPA, EMILY, CMP #### [facility] [address] [place] [address] Dr. Emely Adrian MCHC (RBC) [Mass/Vol] 33.8 g/dL Normal 29.9-35.2 [facility] Comment on above: Performed By: #### T SH, T7, LIPA, EMILY, CMP #### [facility] [address] [place] [address] Dr. Emely Adrian MCV (RBC) [Entitic vol] 96.7 fL Critically high 80.0-94.0 [facility] Comment on above: Performed By: #### T SH, T7, LIPA, EMILY, CMP #### [facility] [address] [place] [address] Dr. Emely Adrian MONO # 1.3 103/ul Critically high 0.3-0.8 [facility] Comment on above: Performed By: #### T SH, T7, LIPA, EMILY, CMP #### [facility] [address] [place] [address] Dr. Emely Adrian Monocytes/100 WBC (Bld) 18.0 % Critically high 1.7-12.0 [facility] Comment on above: Performed By: #### T SH, T7, LIPA, EMILY, CMP #### [facility] [address] [place] [address] Dr. Emely Adrian NEUT # 4.0 103/ul Normal 1.4-6.5 [facility] Comment on above: Performed By: #### T SH, T7, LIPA, EMILY, CMP #### [facility] [address] [place] [address] Dr. Emely Adrian Neutrophils/100 WBC (Bld) 53.8 % Normal 43.0-75.0 [facility] Comment on above: Performed By: #### T SH, T7, LIPA, EMILY, CMP #### [facility] [address] [place] [address] Dr. Emely Adrian Platelet mean volume (Bld) [Entitic vol] 8.7 fL Critically low 9.5-13.5 [facility] Comment on above: Performed By: #### T SH, T7, LIPA, EMILY, CMP #### [facility] [address] [place] [address] Dr. Emely Adrian PLT 320 103/ul Normal 150-450 [facility] Comment on above: Performed By: #### T SH, T7, LIPA, EMILY, CMP #### [facility] [address] [place] [address] Dr. Emely Adrian RBC 2.75 106/ul Critically low 4.70-6.10 [facility] Comment on above: Performed By: #### T SH, T7, LIPA, EMILY, CMP #### [facility] [address] [place] [address] Dr. Emely Adrian WBC 7.5 103/ul Normal 4.0-11.0 [facility] Comment on above: Performed By: #### T SH, T7, LIPA, EMILY, CMP #### [facility] [address] [place] [address] Dr. Emely Adrian LACTATE/LACTIC ACIDon 2021 Lactate [Moles/Vol] 0.7 mmol/L Normal 0.4-1.9 [facility] Comment on above: Performed By: #### T SH, T7, LIPA, EMILY, CMP #### [facility] [address] [place] [address] Dr. Emely Adrian LIPASEon 03-09-2022 Lipase [Catalytic activity/Vol] 386.0 U/L Normal 73.0-393.0 [facility] Comment on above: Performed By: #### C BC #### [facility] [address] [place] [address] Dr. Emely Adrian PROF 14(COMP METB)on 022 Albumin [Mass/Vol] 2.9 g/dL Critically low 3.4-5.0 [facility] Comment on above: Performed By: #### C MP #### [facility] [address] [place] [address] Dr. Emely Adrian Albumin/Globulin [Mass ratio] 0.7 {ratio} Normal [facility] Comment on above: Performed By: #### C MP #### [facility] [address] [place] [address] Dr. Emely Adrian ALP [Catalytic activity/Vol] 43 U/L Critically low 46-116 [facility] Comment on above: Performed By: #### C MP #### [facility] [address] [place] [address] Dr. Emely Adrian ALT [Catalytic activity/Vol] 23 U/L Normal 16-63 [facility] Comment on above: Performed By: #### C MP #### [facility] [address] [place] [address] Dr. Emely Adrian Anion gap [Moles/Vol] 13.4 mmol/L Normal [facility] Comment on above: Performed By: #### C MP #### [facility] [address] [place] [address] [address] Emely Adrian AST [Catalytic activity/Vol] 21 U/L Normal 15-37 [facility] Comment on above: Performed By: #### C MP #### [facility] [address] [place] [address] [address] Emely Adrian Bilirubin [Mass/Vol] 0.4 mg/dL Normal 0.2-1.0 [facility] Comment on above: Performed By: #### C MP #### [facility] [address] [place] [address] Dr. Emely Adrian Calcium [Mass/Vol] 8.3 mg/dL Critically low 8.5-10.1 [facility] Comment on above: Performed By: #### C MP #### [facility] [address] [place] [address] [address] Emely Adrian Chloride [Moles/Vol] 104 mmol/L Normal 98-107 [facility] Comment on above: Performed By: #### C MP #### [facility] [address] [place] [address] [address] Emely Adrian CO2 [Moles/Vol] 22.9 mmol/L Normal 21.0-32.0 [facility] Comment on above: Performed By: #### C MP #### [facility] [address] [place] [address] [address] Emely Adrian Creatinine [Mass/Vol] 1.80 mg/dL Critically high 0.70-1.30 [facility] Comment on above: Performed By: #### C MP #### [facility] [address] [place] [address] Dr. Emely Adrian EGFR-AF [place]I 46 mL/min/1.73m2 Critically low >=60 [facility] Comment on above: Performed By: #### C MP #### [facility] [address] [place] [address] Dr. Emely Adrian EGFR-NON AF [place] 38 mL/min/1.73m2 Critically low >=60 [facility] Comment on above: Performed By: #### C MP #### [facility] [address] [place] [address] Dr. Emely Adrian Globulin (S) [Mass/Vol] 4.3 g/dL Normal [facility] Comment on above: Performed By: #### C MP #### [facility] [address] [place] [address] [address] Emely Adrian Glucose [Mass/Vol] 105 mg/dL Normal 74-106 [facility] Comment on above: Performed By: #### C MP #### [facility] [address] [place] [address] Dr. Emely Adrian Potassium [Moles/Vol] 4.3 mmol/L Normal 3.5-5.1 [facility] Comment on above: Performed By: #### C MP #### [facility] [address] [place] [address] Dr. Emely Adrian Protein [Mass/Vol] 7.2 g/dL Normal 6.4-8.2 [facility] Comment on above: Performed By: #### C MP #### [facility] [address] [place] [address] Dr. Emely Adrian Sodium [Moles/Vol] 136 mmol/L Normal 136-145 [facility] Comment on above: Performed By: #### C MP #### [facility] [address] [place] [address] Dr. Emely Adrian Urea nitrogen [Mass/Vol] 35.0 mg/dL Critically high 7.0-18.0 [facility] Comment on above: Performed By: #### C MP #### [facility] [address] [place] [address] Dr. Emely Adrian Urea nitrogen/Creatinin e [Mass ratio] 19.4 mg/mg Normal [facility] Comment on above: Performed By: #### C MP #### [facility] [address] [place] [address] Dr. Emely Adrian PROTIMEon 03-09-2022 INR Coag (PPP) [Relative time] 1.12 {INR} Normal [facility] Comment on above: Performed By: #### P TT, PT #### [facility] [address] [place] [address] Dr. Emely Adrian INR GUIDELINES SEE BELOW Normal [facility] Comment on above: Result Comment: DUSTIN RED INR: 2.0 - 3.0 CONDITIONS NOT LISTED BELOW 2.5 - 3.5 FOR PROSTHETIC HEART VALVE REPLACEMENT 2.5 - 3.5 RECURRENT THROMBOSIS Performed By: #### P TT, PT #### [facility] [address] [place] [address] Dr. Emely Adrian PT Coag (PPP) [Time] 12.0 s Critically high 9.0-11.6 [facility] Comment on above: Performed By: #### P TT, PT #### [facility] [address] [place] [address] Dr. Emely Adrian PTTon 03-09-2022 aPTT Coag (Bld) [Time] 32.1 s Normal 22.3-36.2 [facility] Comment on above: Performed By: #### P TT, PT #### [facility] [address] [place] [address] Dr. Emely Adrian TROPONIN, HIGH SENSITIVITYon 03-09-2022 HSTROP 12.0 pg/mL Normal 4.0-76.1 [facility] Comment on above: Result Comment: CUT- OFF POINTS HAVE BEEN ESTABLISHED BASED ON THE FOURTH UNIVERSAL DEFINITIONS OF MYOCARDIAL INFARCTION. THE UPPER REFERENCE LIMIT (URL) OF TROPONIN, DEFINED THE 99TH PERCENTILE OF cTnI DISTRIBUTION IN A REFERENCE POPULATION, HAS BEEN CONFIRMED THE DECISION THRESHOLD FOR CA DIAGNOSIS. Performed By: #### T SH, T7, LIPA, EMILY, CMP #### [facility] [address] [place] [address] Dr. Emely Adrian TYPE AND SCREENon 03-09-2022 TYPE AND SCREEN Negative Normal [facility] Comment on above: Performed By: #### T SH, T7, LIPA, EMILY, CMP #### [facility] [address] [place] [address] Dr. Emely Adrian XR CHEST 1 Von [...] by: PATRICIO ANTON Date: 2022-03-09 10:17 Normal [facility] CA 19-9on 02-26-2022 CA 19-9 4 U/mL Normal 0-35 [facility] Comment on above: Result Comment: [employer] Electrochemiluminescence Immunoassay (ECLIA) . Values obtained with different assay methods or kits cannot be used interchangeably. Results cannot be interpreted as absolute evidence of the presence or absence of malignant disease. Performed By: #### T SH, T7, LIPA, EMILY, CMP #### [facility] [address] [place] [address] [address] Emely Adrian CEAon 02-26-2022 CEA 1.9 ng/mL Normal 0.0-4.7 [facility] Comment on above: Result Comment: Nons mokers <3.9 Smokers <5.6 . [employer] Electrochemiluminescence Immunoassay (ECLIA) . Values obtained with different assay methods or kits cannot be used interchangeably. Results cannot be interpreted as absolute evidence of the presence or absence of malignant disease. Performed By: #### T SH, T7, LIPA, EMILY, CMP #### [facility] [address] [place] [address] Dr. Emely Adrian H PYLORI ANTIBODY IGGon 02-08 H. PYLORI IGG ABS 1.19 Index Value Critically high 0.00-0. 79 [facility] Comment on above: Result Comment: Nega tive <0.80 Equivocal 0.80 - 0.89 Positive >0.89 Performed By: #### C BC #### [facility] [address] [place] [address] Dr. Emely Adrian AMYLASEon 02-25-2022 Amylase [Catalytic activity/Vol] 118 U/L Critically high 25-115 [facility] Comment on above: Performed By: #### T SH, T7, LIPA, EMILY, CMP #### [facility] [address] [place] [address] Dr. Emely Adrian CBC AUTO DIFFon 02-25-2022 BASO # 0.0 103/ul Normal 0.0-0.1 [facility] Comment on above: Performed By: #### T SH, T7, LIPA, EMILY, CMP #### [facility] [address] [place] [address] Dr. Emely Adrian Basophils/100 WBC (Bld) 0.2 % Normal 0.2-2.0 [facility] Comment on above: Performed By: #### T SH, T7, LIPA, EMILY, CMP #### [facility] [address] [place] [address] Dr. Emely Adrian EO # 0.1 103/ul Normal 0.0-0.7 [facility] Comment on above: Performed By: #### T SH, T7, LIPA, EMILY, CMP #### [facility] [address] [place] [address] Dr. Emely Adrian Eosinophils/100 WBC (Bld) 2.8 % Normal 0.9-7.0 [facility] Comment on above: Performed By: #### T SH, T7, LIPA, EMILY, CMP #### [facility] [address] [place] [address] Dr. Emely Adrian Erythrocyte distribution width (RBC) [Ratio] 15.6 % Critically high 11.0-15.0 [facility] Comment on above: Performed By: #### T SH, T7, LIPA, EMILY, CMP #### [facility] [address] [place] [address] Dr. Emely Adrian Hematocrit (Bld) [Volume fraction] 28.9 % Critically low 42.0-54.0 [facility] Comment on above: Performed By: #### T SH, T7, LIPA, EMILY, CMP #### [facility] [address] [place] [address] Dr. Emely Adrian Hemoglobin (Bld) [Mass/Vol] 9.5 g/dL Critically low 14.0-18.0 [facility] Comment on above: Performed By: #### T SH, T7, LIPA, EMILY, CMP #### [facility] [address] [place] [address] Dr. Emely Adrian IG # 0.04 10e3/ul Critically high 0.00-0.03 [facility] Comment on above: Performed By: #### T SH, T7, LIPA, EMILY, CMP #### [facility] [address] [place] [address] Dr. Emely Adrian IG % 0.9 % Critically high 0.0-0.5 [facility] Comment on above: Performed By: #### T SH, T7, LIPA, EMILY, CMP #### [facility] [address] [place] [address] Dr. Emely Adrian LYMPH # 1.3 103/ul Normal 1.2-3.8 [facility] Comment on above: Performed By: #### T SH, T7, LIPA, EMILY, CMP #### [facility] [address] [place] [address] Dr. Emely Adrian Lymphocytes/100 WBC (Bld) 29.6 % Normal 20.5-60.0 [facility] Comment on above: Performed By: #### T SH, T7, LIPA, EMILY, CMP #### [facility] [address] [place] [address] Dr. Emely Adrian MANUAL DIFF REQ NO Normal [facility] Comment on above: Performed By: #### T SH, T7, LIPA, EMILY, CMP #### [facility] [address] [place] [address] Dr. Emely Adrian MCH (RBC) [Entitic mass] 32.1 pg Normal 25.9-34.0 [facility] Comment on above: Performed By: #### T SH, T7, LIPA, EMILY, CMP #### [facility] [address] [place] [address] Dr. Emely Adrian MCHC (RBC) [Mass/Vol] 32.9 g/dL Normal 29.9-35.2 [facility] Comment on above: Performed By: #### T SH, T7, LIPA, EMILY, CMP #### [facility] [address] [place] [address] Dr. Emely Adrian MCV (RBC) [Entitic vol] 97.6 fL Critically high 80.0-94.0 [facility] Comment on above: Performed By: #### T SH, T7, LIPA, EMILY, CMP #### [facility] [address] [place] [address] Dr. Emely Adrian MONO # 0.8 103/ul Normal 0.3-0.8 [facility] Comment on above: Performed By: #### T SH, T7, LIPA, EMILY, CMP #### [facility] [address] [place] [address] Dr. Emely Adrian Monocytes/100 WBC (Bld) 17.2 % Critically high 1.7-12.0 [facility] Comment on above: Performed By: #### T SH, T7, LIPA, EMILY, CMP #### [facility] [address] [place] [address] Dr. Emely Adrian NEUT # 2.2 103/ul Normal 1.4-6.5 [facility] Comment on above: Performed By: #### T SH, T7, LIPA, EMILY, CMP #### [facility] [address] [place] [address] Dr. Emely Adrian Neutrophils/100 WBC (Bld) 49.3 % Normal 43.0-75.0 [facility] Comment on above: Performed By: #### T SH, T7, LIPA, EMILY, CMP #### [facility] [address] [place] [address] Dr. Emely Adrian Platelet mean volume (Bld) [Entitic vol] 9.2 fL Critically low 9.5-13.5 [facility] Comment on above: Performed By: #### T SH, T7, LIPA, EMILY, CMP #### [facility] [address] [place] [address] Dr. Emely Adrian PLT 259 103/ul Normal 150-450 [facility] Comment on above: Performed By: #### T SH, T7, LIPA, EMILY, CMP #### [facility] [address] [place] [address] Dr. Emely Adrian RBC 2.96 106/ul Critically low 4.70-6.10 [facility] Comment on above: Performed By: #### T SH, T7, LIPA, EMILY, CMP #### [facility] [address] [place] [address] Dr. Emely Adrian WBC 4.4 103/ul Normal 4.0-11.0 [facility] Comment on above: Performed By: #### T SH, T7, LIPA, EMILY, CMP #### [facility] [address] [place] [address] Dr. Emely Adrian FREE THYROXINE INDEX T7on FTI 1.80 Normal 1.30-4.50 [facility] Comment on above: Performed By: #### T SH, T7, LIPA, EMILY, CMP #### [facility] [address] [place] [address] Dr. Emely Adrian T3U 34.0 % Normal 33.0-40.0 [facility] Comment on above: Performed By: #### T SH, T7, LIPA, EMILY, CMP #### [facility] [address] [place] [address] Dr. Emely Adrian T4 [Mass/Vol] 5.30 ug/dL Normal 4.50-12.10 [facility] Comment on above: Performed By: #### T SH, T7, LIPA, EMILY, CMP #### [facility] [address] [place] [address] Dr. Emely Adrian GI PANEL (PCR)on 02-25-2022 Adenovirus F 40/41 Not detected Normal NOT DETECTED [facility] Comment on above: Performed By: #### G IPANEL #### [facility] [address] [place] [address] Dr. Emely Adrian Astrovirus Not detected Normal NOT DETECTED [facility] Comment on above: Performed By: #### G IPANEL #### [facility] [address] [place] [address] Dr. Emely Adrian C. Diff toxin A/B Not detected Normal NOT DETECTED [facility] Comment on above: Performed By: #### G IPANEL #### [facility] [address] [place] [address] Dr. Emely Adrian Campylobacter Not detected Normal NOT DETECTED [facility] Comment on above: Performed By: #### G IPANEL #### [facility] [address] [place] [address] Dr. Emely Adrian Cryptosporidium Not detected Normal NOT DETECTED [facility] Comment on above: Performed By: #### G IPANEL #### [facility] [address] [place] [address] Dr. Emely Adrian Cyclos. Cayetanensis Not detected Normal NOT DETECTED [facility] Comment on above: Performed By: #### G IPANEL #### [facility] [address] [place] [address] Dr. Emely Adrian E. Coli O157 Not Applicable Normal Not Applicable [facility] Comment on above: Performed By: #### G IPANEL #### [facility] [address] [place] [address] Dr. Emely Adrian E. histolytica Not detected Normal NOT DETECTED [facility] Comment on above: Performed By: #### G IPANEL #### [facility] [address] [place] [address] Dr. Emely Adrian EAEC Not detected Normal NOT DETECTED [facility] Comment on above: Performed By: #### G IPANEL #### [facility] [address] [place] [address] Dr. Emely Adrian EIEC Not detected Normal NOT DETECTED [facility] Comment on above: Performed By: #### G IPANEL #### [facility] [address] [place] [address] Dr. Emely Adrian EPEC Not detected Normal NOT DETECTED [facility] Comment on above: Performed By: #### G IPANEL #### [facility] [address] [place] [address] Dr. Emely Adrian ETEC Not detected Normal NOT DETECTED [facility] Comment on above: Performed By: #### G IPANEL #### [facility] [address] [address] [address] Emely Olsen Lamblia Not detected Normal NOT DETECTED [facility] Comment on above: Performed By: #### G IPANEL #### [facility] [address] [address] [address] Emely STODDARD CONTROLS PASSED Normal [facility] Comment on above: Performed By: #### G IPANEL #### [facility] [address] [address] [address] Emely RODRIGUEZ MARY HEADER GI PANEL BACTERIA Normal T [facility] Comment on above: Performed By: #### G IPANEL #### [facility] [address] [address] [address] Emely KAHN ECOLI GI PANEL DIARRHEAGEN IC E.COLI / SHIGELLA Normal [facility] Comment on above: Performed By: #### G IPANEL #### [facility] [address] [address] [address] Emely KAHN INFO SEE BELOW Normal [facility] Comment on above: Result Comment: EAEC - Enteroaggregative E. Coli EPEC- Enteropathogenic E. Coli ETEC- Enterotoxigenic E. Coli lt/st STEC- Shigella-like toxin-producing E. Coli stx1/stx2 EIEC- Shigella/Enteroinvasive E. Coli Performed By: #### G IPANEL #### [facility] [address] [place] [address] Dr. Emely KAHN PARASITES GI PANEL PARASITES Normal [facility] Comment on above: Performed By: #### G IPANEL #### [facility] [address] [address] [address] Emely KAHN VIRUS GI PANEL VIRUSES Normal [facility] Comment on above: Performed By: #### G IPANEL #### [facility] [address] [address] [address] Emely Adrian Norovirus GI/GII Not detected Normal NOT DETECTED [facility] Comment on above: Performed By: #### G IPANEL #### [facility] [address] [address] [address] Emely Adrian P. Shigelloides Not detected Normal NOT DETECTED [facility] Comment on above: Performed By: #### G IPANEL #### [facility] [address] [address] [address] Emely Adrian Rotavirus A Not detected Normal NOT DETECTED [facility] Comment on above: Performed By: #### G IPANEL #### [facility] [address] [address] [address] Emely Adrian Salmonella Not detected Normal NOT DETECTED [facility] Comment on above: Performed By: #### G IPANEL #### [facility] [address] [place] [address] Dr. Emely Adrian Sapovirus Not detected Normal NOT DETECTED [facility] Comment on above: Performed By: #### G IPANEL #### [facility] [address] [place] [address] Dr. Emely Adrian STEC Not detected Normal NOT DETECTED [facility] Comment on above: Performed By: #### G IPANEL #### [facility] [address] [address] [address] Emely Adrian Vibrio Not detected Normal NOT DETECTED [facility] Comment on above: Performed By: #### G IPANEL #### [facility] [address] [place] [address] Dr. Emely Adrian Vibrio Cholera Not detected Normal NOT DETECTED [facility] Comment on above: Performed By: #### G IPANEL #### [facility] [address] [place] [address] Dr. Emely Adrian Y. Enterocolitica Not detected Normal NOT DETECTED [facility] Comment on above: Performed By: #### G IPANEL #### [facility] [address] [place] [address] Dr. Emely Adrian GLYCOHEMOGLOBIN A1Con 2021 ADA RECOMMENDATION SEE BELOW Normal [facility] Comment on above: Result Comment: ADA RECOMMENDED LIMIT 4.0 - 6.0 ADA THERAPEUTIC TARGET < 7.0 ACTION SUGGESTED > 7.0 Performed By: #### T SH, T7, LIPA, EMILY, CMP #### [facility] [address] [address] [address] Emely Adrian Glucose [Mass/Vol] 120 mg/dL Normal [facility] Comment on above: Performed By: #### T SH, T7, LIPA, EMILY, CMP #### [facility] [address] [place] [address] Dr. Emely Adrian HbA1c (Bld) [Mass fraction] 5.8 % Normal 4.5-6.2 [facility] Comment on above: Performed By: #### T SH, T7, LIPA, EMILY, CMP #### [facility] [address] [place] [address] Dr. Emely Adrian IRONon 02-25-2022 Iron [Mass/Vol] 55.0 ug/dL Critically low 65.0-175.0 [facility] Comment on above: Performed By: #### C BC #### [facility] [address] [place] [address] Dr. Emely Adrian LIPASEon 02-25-2022 Lipase [Catalytic activity/Vol] 671.0 U/L Critically high 73.0-393.0 [facility] Comment on above: Performed By: #### T SH, T7, LIPA, EMILY, CMP #### [facility] [address] [place] [address] Dr. Emely Adrian OCC BLD IMMUNO SCREENon 02-08 OCCULT BLOOD Positive Abnormal NEGATIVE [facility] Comment on above: Performed By: #### T SH, T7, LIPA, EMILY, CMP #### [facility] [address] [place] [address] Dr. Emely Adrian PROF 14(COMP METB)on 022 Albumin [Mass/Vol] 3.0 g/dL Critically low 3.4-5.0 [facility] Comment on above: Performed By: #### T SH, T7, LIPA, EMILY, CMP #### [facility] [address] [place] [address] Dr. Emely Adrian Albumin/Globulin [Mass ratio] 0.8 {ratio} Normal [facility] Comment on above: Performed By: #### T SH, T7, LIPA, EMILY, CMP #### [facility] [address] [place] [address] Dr. Emely Adrian ALP [Catalytic activity/Vol] 58 U/L Normal 46-116 [facility] Comment on above: Performed By: #### T SH, T7, LIPA, EMILY, CMP #### [facility] [address] [place] [address] Dr. Emely Adrian ALT [Catalytic activity/Vol] 25 U/L Normal 16-63 [facility] Comment on above: Performed By: #### T SH, T7, LIPA, EMILY, CMP #### [facility] [address] [place] [address] Dr. Emely Adrian Anion gap [Moles/Vol] 12.1 mmol/L Normal [facility] Comment on above: Performed By: #### T SH, T7, LIPA, EMILY, CMP #### [facility] [address] [place] [address] Dr. Emely Adrian AST [Catalytic activity/Vol] 20 U/L Normal 15-37 [facility] Comment on above: Performed By: #### T SH, T7, LIPA, EMILY, CMP #### [facility] [address] [place] [address] Dr. Emely Adrian Bilirubin [Mass/Vol] 0.2 mg/dL Normal 0.2-1.0 [facility] Comment on above: Performed By: #### T SH, T7, LIPA, EMILY, CMP #### [facility] [address] [place] [address] Dr. Emely Adrian Calcium [Mass/Vol] 8.3 mg/dL Critically low 8.5-10.1 [facility] Comment on above: Performed By: #### T SH, T7, LIPA, EMILY, CMP #### [facility] [address] [place] [address] Dr. Emely Adrian Chloride [Moles/Vol] 108 mmol/L Critically high 98-107 [facility] Comment on above: Performed By: #### T SH, T7, LIPA, EMILY, CMP #### [facility] [address] [place] [address] Dr. Emely Adrian CO2 [Moles/Vol] 24.5 mmol/L Normal 21.0-32.0 [facility] Comment on above: Performed By: #### T SH, T7, LIPA, EMILY, CMP #### [facility] [address] [place] [address] Dr. Emely Adrian Creatinine [Mass/Vol] 0.97 mg/dL Normal 0.70-1.30 [facility] Comment on above: Performed By: #### T SH, T7, LIPA, EMILY, CMP #### [facility] [address] [place] [address] Dr. Emely Adrian EGFR-AF KUWAITI >60 Normal >=60 [facility] Comment on above: Performed By: #### T SH, T7, LIPA, EMILY, CMP #### [facility] [address] [place] [address] Dr. Emely Adrina EGFR-NON AF [place]I >60 Normal >=60 [facility] Comment on above: Performed By: #### T SH, T7, LIPA, EMILY, CMP #### [facility] [address] [place] [address] Dr. Emely Adrian Globulin (S) [Mass/Vol] 3.8 g/dL Normal [facility] Comment on above: Performed By: #### T SH, T7, LIPA, EMILY, CMP #### [facility] [address] [place] [address] Dr. Emely Adrian Glucose [Mass/Vol] 97 mg/dL Normal 74-106 [facility] Comment on above: Performed By: #### T SH, T7, LIPA, EMILY, CMP #### [facility] [address] [place] [address] Dr. Emely Adrian Potassium [Moles/Vol] 4.6 mmol/L Normal 3.5-5.1 [facility] Comment on above: Performed By: #### T SH, T7, LIPA, EMILY, CMP #### [facility] [address] [place] [address] Dr. Emely Adrian Protein [Mass/Vol] 6.8 g/dL Normal 6.4-8.2 [facility] Comment on above: Performed By: #### T SH, T7, LIPA, EMILY, CMP #### [facility] [address] [place] [address] Dr. Emely Adrian Sodium [Moles/Vol] 140 mmol/L Normal 136-145 [facility] Comment on above: Performed By: #### T SH, T7, LIPA, EMILY, CMP #### [facility] [address] [place] [address] Dr. Emely Adrian Urea nitrogen [Mass/Vol] 20.0 mg/dL Critically high 7.0-18.0 [facility] Comment on above: Performed By: #### T SH, T7, LIPA, EMILY, CMP #### [facility] [address] [place] [address] Dr. Emely Adrian Urea nitrogen/Creatinin e [Mass ratio] 20.6 mg/mg Normal [facility] Comment on above: Performed By: #### T SH, T7, LIPA, EMILY, CMP #### [facility] [address] [place] [address] Dr. Emely Adrian TSHon 02-25-2022 TSH 1.247 uIU/mL Normal 0.358-3.740 [facility] Comment on above: Performed By: #### T SH, T7, LIPA, EMILY, CMP #### [facility] [address] [place] [address] Dr. Emely Adrian VITAMIN D 25 OHon 02-25-2022 VIT D 25-OH 23.9 ng/mL Normal [facility] Comment on above: Performed By: #### C BC #### [facility] [address] [place] [address] Dr. Emely Adrian VIT D RANGES SEE BELOW Normal [facility] Comment on above: Result Comment: <20 ng/mL Vit D deficient 20 - <30 ng/mL Vit D insufficient 30 - 100 ng/mL Vit D sufficient >100 ng/mL Potential Toxicity Performed By: #### C BC #### [facility] [address] [address] [address] Emely Adrian CREATININEon 12-30-2021 Creatinine [Mass/Vol] 1.21 mg/dL Normal 0.70-1.30 [facility] Comment on above: Performed By: #### T SH, T7, LIPA, EMILY, CMP #### [facility] [address] [address] [address] Emely Adrian EGFR-AF [place]I >60 Normal >=60 [facility] Comment on above: Performed By: #### T SH, T7, LIPA, EMILY, CMP #### [facility] [address] [address] [address] Emely Adrian EGFR-NON AF [place]I =60 Normal >=60 [facility] Comment on above: Performed By: #### T SH, T7, LIPA, EMILY, CMP #### [facility] [address] [place] [address] CHEST WO W [...] by: KIRK CRUZ Date: 2021-12-30 08:46 Normal [facility] NM STRESS/REST MULTIon 11-09 NM STRESS/REST MULTI Patient: PABLO BECKMAN Exam Date: 11/09/2021 : 1955 Gender:M Ordering : DR LV HEARD . Admission #: [id number] Family : Order #: [id number] CLICK HERE TO VIEW EXAM RADIOLOGY REPORT [...] Cruz M.D. on 11/09/2021 at 14:17 Normal [facility] CARDIAC PHILIP 3-6on 2 CK [Catalytic activity/Vol] 114 U/L Normal 39-308 [facility] Comment on above: Performed By: #### T SH, T7, LIPA, EMILY, CMP #### [facility] [address] [place] [address] Dr. Emely Adrian CK.MB [Mass/Vol] 1.75 ng/mL Normal <=3.60 [facility] Comment on above: Performed By: #### T SH, T7, LIPA, EMILY, CMP #### [facility] [address] [place] [address] Dr. Emely Adrian HSTROP 10.8 pg/mL Normal 4.0-76.1 [facility] Comment on above: Result Comment: CUT- OFF POINTS HAVE BEEN ESTABLISHED BASED ON THE FOURTH UNIVERSAL DEFINITIONS OF MYOCARDIAL INFARCTION. THE UPPER REFERENCE LIMIT (URL) OF TROPONIN, DEFINED THE 99TH PERCENTILE OF cTnI DISTRIBUTION IN A REFERENCE POPULATION, HAS BEEN CONFIRMED THE DECISION THRESHOLD FOR CA DIAGNOSIS. Performed By: #### T SH, T7, LIPA, EMILY, CMP #### [facility] [address] [place] [address] Dr. Emely Adrian CK [Catalytic activity/Vol] 122 U/L Normal 39-308 [facility] Comment on above: Performed By: #### T SH, T7, LIPA, EMILY, CMP #### [facility] [address] [place] [address] Dr. Emely Adrian CK.MB [Mass/Vol] 2.59 ng/mL Normal <=3.60 [facility] Comment on above: Performed By: #### T SH, T7, LIPA, EMILY, CMP #### [facility] [address] [place] [address] Dr. Emely Adrian HSTROP 10.5 pg/mL Normal 4.0-76.1 [facility] Comment on above: Result Comment: CUT- OFF POINTS HAVE BEEN ESTABLISHED BASED ON THE FOURTH UNIVERSAL DEFINITIONS OF MYOCARDIAL INFARCTION. THE UPPER REFERENCE LIMIT (URL) OF TROPONIN, DEFINED THE 99TH PERCENTILE OF cTnI DISTRIBUTION IN A REFERENCE POPULATION, HAS BEEN CONFIRMED THE DECISION THRESHOLD FOR CA DIAGNOSIS. Performed By: #### T SH, T7, LIPA, EMILY, CMP #### [facility] [address] [place] [address] Dr. Emely Adrian CK [Catalytic activity/Vol] 130 U/L Normal 39-308 [facility] Comment on above: Performed By: #### C BC #### [facility] [address] [address] [address] Emely Adrian CK.MB [Mass/Vol] 2.10 ng/mL Normal <=3.60 [facility] Comment on above: Performed By: #### C BC #### [facility] [address] [address] [address] Emely Adrian HSTROP 10.2 pg/mL Normal 4.0-76.1 [facility] Comment on above: Result Comment: CUT- OFF POINTS HAVE BEEN ESTABLISHED BASED ON THE FOURTH UNIVERSAL DEFINITIONS OF MYOCARDIAL INFARCTION. THE UPPER REFERENCE LIMIT (URL) OF TROPONIN, DEFINED THE 99TH PERCENTILE OF cTnI DISTRIBUTION IN A REFERENCE POPULATION, HAS BEEN CONFIRMED THE DECISION THRESHOLD FOR CA DIAGNOSIS. Performed By: #### C BC #### [facility] [address] [place] [address] Dr. Emely Adrian CARDIAC PHILIP ADMITon 022 CK [Catalytic activity/Vol] 164 U/L Normal 39-308 [facility] Comment on above: Performed By: #### C BC #### [facility] [address] [address] [address] Emely Adrian CK.MB [Mass/Vol] 3.38 ng/mL Normal <=3.60 [facility] Comment on above: Performed By: #### C BC #### [facility] [address] [address] [address] Emely Adrian HSTROP 9.5 pg/mL Normal 4.0-76.1 [facility] Comment on above: Result Comment: CUT- OFF POINTS HAVE BEEN ESTABLISHED BASED ON THE FOURTH UNIVERSAL DEFINITIONS OF MYOCARDIAL INFARCTION. THE UPPER REFERENCE LIMIT (URL) OF TROPONIN, DEFINED THE 99TH PERCENTILE OF cTnI DISTRIBUTION IN A REFERENCE POPULATION, HAS BEEN CONFIRMED THE DECISION THRESHOLD FOR CA DIAGNOSIS. Performed By: #### C BC #### [facility] [address] [address] [address] Emely Adrian ADY 124 ng/mL Critically high 16-96 [facility] Comment on above: Performed By: #### C BC #### [facility] [address] [place] [address] Dr. Emely Adrian CBC AUTO DIFFon 10-27-2021 BASO # 0.0 103/ul Normal 0.0-0.1 [facility] Comment on above: Performed By: #### C BC #### [facility] [address] [place] [address] Dr. Emely Adrian Basophils/100 WBC (Bld) 0.1 % Critically low 0.2-2.0 [facility] Comment on above: Performed By: #### C BC #### [facility] [address] [place] [address] Dr. Emely Adrian EO # 0.3 103/ul Normal 0.0-0.7 [facility] Comment on above: Performed By: #### C BC #### [facility] [address] [place] [address] Dr. Emely Adrian Eosinophils/100 WBC (Bld) 3.2 % Normal 0.9-7.0 [facility] Comment on above: Performed By: #### C BC #### [facility] [address] [place] [address] Dr. Emely Adrian Erythrocyte distribution width (RBC) [Ratio] 13.6 % Normal 11.0-15.0 [facility] Comment on above: Performed By: #### C BC #### [facility] [address] [place] [address] Dr. Emely Adrian Hematocrit (Bld) [Volume fraction] 32.2 % Critically low 42.0-54.0 [facility] Comment on above: Performed By: #### C BC #### [facility] [address] [place] [address] Dr. Emely Adrian Hemoglobin (Bld) [Mass/Vol] 10.5 g/dL Critically low 14.0-18.0 [facility] Comment on above: Performed By: #### C BC #### [facility] [address] [place] [address] Dr. Emely Adrian IG # 0.05 10e3/ul Critically high 0.00-0.03 [facility] Comment on above: Performed By: #### C BC #### [facility] [address] [address] [address] Emely Adrian IG % 0.6 % Critically high 0.0-0.5 [facility] Comment on above: Performed By: #### C BC #### [facility] [address] [address] [address] Emely Adrian LYMPH # 1.7 103/ul Normal 1.2-3.8 [facility] Comment on above: Performed By: #### C BC #### [facility] [address] [place] [address] Dr. Emely Adrian Lymphocytes/100 WBC (Bld) 19.7 % Critically low 20.5-60.0 [facility] Comment on above: Performed By: #### C BC #### [facility] [address] [place] [address] Dr. Emely Adrian MANUAL DIFF REQ NO Normal [facility] Comment on above: Performed By: #### C BC #### [facility] [address] [place] [address] Dr. Emely Adrian MCH (RBC) [Entitic mass] 31.7 pg Normal 25.9-34.0 [facility] Comment on above: Performed By: #### C BC #### [facility] [address] [place] [address] Dr. Emely Adrian MCHC (RBC) [Mass/Vol] 32.6 g/dL Normal 29.9-35.2 [facility] Comment on above: Performed By: #### C BC #### [facility] [address] [place] [address] Dr. Emely Adrian MCV (RBC) [Entitic vol] 97.3 fL Critically high 80.0-94.0 [facility] Comment on above: Performed By: #### C BC #### [facility] [address] [place] [address] Dr. Emely Adrian MONO # 1.0 103/ul Critically high 0.3-0.8 [facility] Comment on above: Performed By: #### C BC #### [facility] [address] [place] [address] Dr. Emely Adrian Monocytes/100 WBC (Bld) 12.4 % Critically high 1.7-12.0 [facility] Comment on above: Performed By: #### C BC #### [facility] [address] [place] [address] Dr. Emely Adrian NEUT # 5.4 103/ul Normal 1.4-6.5 [facility] Comment on above: Performed By: #### C BC #### [facility] [address] [place] [address] Dr. Emely Adrian Neutrophils/100 WBC (Bld) 64.0 % Normal 43.0-75.0 [facility] Comment on above: Performed By: #### C BC #### [facility] [address] [place] [address] Dr. Emely Adrian Platelet mean volume (Bld) [Entitic vol] 9.2 fL Critically low 9.5-13.5 [facility] Comment on above: Performed By: #### C BC #### [facility] [address] [place] [address] Dr. Emely Adrian PLT 417 103/ul Normal 150-450 [facility] Comment on above: Performed By: #### C BC #### [facility] [address] [place] [address] Dr. Emely Adiran RBC 3.31 106/ul Critically low 4.70-6.10 [facility] Comment on above: Performed By: #### C BC #### [facility] [address] [place] [address] Dr. Emely Adrian WBC 8.4 103/ul Normal 4.0-11.0 [facility] Comment on above: Performed By: #### C BC #### [facility] [address] [place] [address] Dr. Emely Adrian CTA CHEST WO W CONon 10-27- 022 CTA CHEST WO W CON EXAMINATION: [...] Normal [facility] Covid-19 PCR ([facility]on 10-09 SARS-CoV-2 (COVID-19) RNA ISIDRO+probe Ql (Unsp [...] for this test is supported by the Fudger of Health and Human Service's declaration that [...] used). Performed By: #### T BASIM, T7, EMILY WIGGINS, CMP #### [facility] [address] [address] [address] Emely Adrian D-DIMERon 10-27-2021 D-DIMER 2.19 mg/L FEU Critically high <=0.59 [facility] Comment on above: Performed By: #### T BASIM, T7, EMILY WIGGINS, CMP #### [facility] [address] [address] [address] Emely Adrian D-DIMER COMMENTS SEE BELOW Normal [facility] Comment on above: Result Comment: [...] and generalized hospitalization. Performed By: #### T BASIM, Royer, EMILY WIGGINS, CMP #### [facility] [address] [address] [address] Emely Adrian DIGOXINon 10-27-2021 DIG <0.2 Critically low 0.9-2.0 [facility] Comment on above: Performed By: #### T BASIM, T7, EMILY WIGGINS, CMP #### [facility] [address] [address] [address] Emely Adrian ECHOCARDIO M/2D COMPLETEon 0 10-27-2021 ECHOCARDIO M/2D COMPLETE Patient: PABLO BECKMAN Exam Date: 10/27/2021 : 1955 Gender:M Ordering : DR LV HEARD . Admission #: [id number] Family : Order #: [id number] CLICK HERE TO VIEW EXAM ECHOCARDIOGRAM REPORT [...] 2021 Lactate [Moles/Vol] 0.5 mmol/L Normal 0.4-1.9 [facility] Comment on above: Performed By: #### T SH, T7, LIPA, EMILY, CMP #### [facility] [address] [address] [address] Emely Adrian Lactate [Moles/Vol] 0.5 mmol/L Normal 0.4-1.9 [facility] Comment on above: Performed By: #### C BC #### [facility] [address] [place], [place] [address] Dr. Emely Adrian PROF CHEM 8 ([facility])on Anion gap [Moles/Vol] 15.3 mmol/L Normal [facility] Comment on above: Performed By: #### C BC #### [facility] [address] [address] [address] Emely Adrian Calcium [Mass/Vol] 9.1 mg/dL Normal 8.5-10.1 [facility] Comment on above: Performed By: #### C BC #### [facility] [address] [address] [address] Emely Adrian Chloride [Moles/Vol] 105 mmol/L Normal 98-107 [facility] Comment on above: Performed By: #### C BC #### [facility] [address] [place] [address] Dr. Emely Adrian CO2 [Moles/Vol] 26.6 mmol/L Normal 21.0-32.0 [facility] Comment on above: Performed By: #### C BC #### [facility] [address] [place] [address] Dr. Emely Adrian Creatinine [Mass/Vol] 1.29 mg/dL Normal 0.70-1.30 [facility] Comment on above: Performed By: #### C BC #### [facility] [address] [place] [address] Dr. Emely Adrian EGFR-AF [place]I >60 Normal >=60 [facility] Comment on above: Performed By: #### C BC #### [facility] [address] [place] [address] Dr. Emely Adrian EGFR-NON AF [place]I 56 mL/min/1.73m2 Critically low >=60 [facility] Comment on above: Performed By: #### C BC #### [facility] [address] [address] [address] Emely Adrian Glucose [Mass/Vol] 100 mg/dL Normal 74-106 [facility] Comment on above: Performed By: #### C BC #### [facility] [address] [place] [address] Dr. Emely Adrian Potassium [Moles/Vol] 3.9 mmol/L Normal 3.5-5.1 [facility] Comment on above: Performed By: #### C BC #### [facility] [address] [place], [place] [address] Dr. Emely Adrian Sodium [Moles/Vol] 143 mmol/L Normal 136-145 [facility] Comment on above: Performed By: #### C BC #### [facility] [address] [place], [place] [address] Dr. Emely Adrian Urea nitrogen [Mass/Vol] 28.0 mg/dL Critically high 7.0-18.0 [facility] Comment on above: Performed By: #### C BC #### [facility] [address] [place], [place] [address] Dr. Emely Adrian Urea nitrogen/Creatinin e [Mass ratio] 21.7 mg/mg Normal [facility] Comment on above: Performed By: #### C BC #### [facility] [address] [place], [place] [address] Dr. Emely Adrian XR CHEST 1 Von [...] Cardiovascular Lab Reporton 04-09-2021 Cardiovascular Lab Report [facility] Patient Name: Pablo Beckman [facility] MR #: [id number] Physician: Mamta Stephenson, Department of [employer] Medicine Service Date: 04/07/2021 Division of Birthdate: 1955 Cardiology Room #: CC [facility] [place] [address] Cardiovascular Laboratory Report DATE OF PROCEDURE; 04/07/2021 [...] A/Lynsey Weeks MD Date Trans: 04/09/2021 11:17 A/ [id number] Normal The [facility] Encounters Encounter Date Encounter Type Care Provider Facility Start: 08-08-2023 End: 08-08-2023 ambulatory MAMTA STEPHENSON [facility] Start: 06-21-2023 Telephone encounter Quinton Gonzáles MD Work Phone: Radiation Oncology Comment on above: Results; Appointment Start: 05-23-2023 Telephone encounter Quinton Gonzáles MD Work Phone: Radiation Oncology Comment on above: Future Appointment Start: 06-23-2022 End: 06-23-2022 ambulatory Quinton Gonzáles MD Work Phone: Radiation Oncology Comment on above: Malignant neoplasm o f prostate (HCC) (Primary Dx) Start: 06-23-2022 End: 06-23-2022 Telemedicine consultation with patient Quinton Gnozáles MD Work Phone: [facility] Start: 06-23-2022 End: 06-24-2022 ambulatory LV Hoskins ROSEHarley Facility:[facility] Start: 06-22-2022 Telephone encounter Quinton Gonzáles MD Work Phone: Radiation Oncology Comment on above: Patient Question Start: 06-02-2022 End: 06-03-[address] JT GONZÁLES Facility:[facility] Start: 03-29-2022 End: 03-29-2022 Patient encounter procedure Patricio BEAUCHAMP General Surgery Nito/Alecia Yanez Start: 03-19-2022 Encounter for preprocedural laboratory examination DR PATRICIO Rosario [facility] Start: 03-18-2022 End: 03-18-[address] PATRICIO BEAUCHAMP . Facility:[facility] Start: 03-14-2022 End: 03-15-[address] PATRICIO Rosario Facility:[facility] Start: 03-14-2022 End: 03-15-2022 Encounter for preprocedural laboratory examination DR PATRICIO Rosario Facility:[facility] Start: 03-09-2022 End: 03-09-[address] ISIDRO WOOTEN Facility:[facility] Start: 02-25-2022 End: 02-26-[address] LV HEARD . Facility:[facility] Start: 12-30-2021 End: 12-31-[address] LV HEARD . Facility:[facility] Start: 11-09-2021 End: 11-10-[address] LV HEARD . Facility:[facility] Start: 10-27-2021 End: 10-27-[address] LV HEARD . Facility:[facility] Start: 04-07-2021 End: 04-08-2021 ambulatory MAMTA STEPHENSON Facility:[facility] Procedures Date Procedure Procedure Detail Performing Clinician Start: 08-08-2023 Follow-up visit Follow-up MAMTA STEPHENSON Start: 06-02-2022 End: 06-02-2022 PSA screening [facility] Provider Comment on above: Performed By: #### TSH, T7, EMILY WIGGINS C MP #### [facility] [address] [place] [address] Dr. Emely Adrian Start: 03-18-2022 Colonoscopy Patricio [facility] Start: 03-18-2022 Esophagogastroduodenoscopy Patricio [facility] Start: 10-17-2018 Colonoscopy Patricoi NILREAL SAMURAI Start: 09-11-2009 Colonoscopy Patricio NILL Amputation of finger, except thumb Patricio JUANL Arthroscopy of shoulder Meng george JUANL Implantation of radi oactive seed into prostate Patricio CL3VERL Open reduction of fr acture with internal fixation Patricio [facility] Comment on above: right leg Umbilical herniorrha phy using surgical sutures Patricio [employer] Plan of Treatment Date Care Activity Detail Author Start: 06-12-2028 Prostate specific antigen measurement Prostate Cancer Screening Discussion [facility] Start: 06-02-2027 PROSTATE CANCER SCREENING DISCUSSION PROSTATE CANCER SCREENING DISCUSSION [facility] Start: 06-02-2027 Prostate specific antigen measurement Prostate Cancer Screening Discussion [facility] Start: 06-12-2024 End: 09-11-2024 Prostate specific Ag [Mass/volume] in Serum or Plasma PSA/PROSTSPECAG DIAG Lab Routine Malignant neoplasm of prostate (HCC) Expected: 06/12/2024, Expires: 09/11/2024 [facility] Work Phone: Comment on above: Expected: 06/12/2024 , Expires: 09/11/2024 Start: 05-23-2023 End: 08-22-2023 Prostate specific Ag [Mass/volume] in Serum or Plasma PSA/PROSTSPECAG DIAG Lab Routine Malignant neoplasm of prostate (HCC) Expected: 05/23/2023, Expires: 08/22/2023 [facility] Work Phone: Comment on above: Expected: 05/23/2023 , Expires: 08/22/2023 Start: 04-10-2023 Advance Directive Discussion Advance Directive Discussion [facility] Start: 04-10-2023 Depression Assessment Depression Ass essment [facility] Start: 01-18-2023 Pneumococcal Vaccine : 65+ (2 of 2 - PPSV23 or PCV20) Pneumococcal Vaccine: 65+ (2 of 2 - PPSV23 or PCV20) [facility] Start: 12-09-2022 Covid-19 Vaccine ( season) Covid-19 Vaccine ( season) [facility] Start: 12-09-2022 Influenza vaccination Influenza Vacc ine (#1) [facility] Start: 04-10-2022 ADVANCE DIRECTIVE DISCUSSION ADVANCE DIRECTIVE DISCUSSION [facility] Start: 04-10-2022 DEPRESSION ASSESSMENT DEPRESSION ASS ESSMENT [facility] Start: 12-09-2021 Influenza vaccination INFLUENZA (#1) [facility] Start: 2021 PNEUMOCOCCAL: 65+ (1 - PCV) PNEUMOCOCCAL: 65+ (1 - PCV) [facility] Start: 09-24-2020 COVID-19 VACCINE (3 - Booster for Pfizer series) COVID-19 VACCINE (3 - Booster for Pfizer series) [facility] Start: 2016 RSV Vaccine (1 - 1-d ose 60+ series) RSV Vaccine (1 - 1-dose 60+ series) [facility] Start: 2006 SHINGRIX VACCINE (1 of 2) SHINGRIX VACCINE (1 of 2) [facility] Start: 2001 COLOGUARD (FIT-DNA) COLOGUARD (FIT-D NA) [facility] Start: 2001 Colonoscopy COLONOSCOPY [facility] Start: 2001 COLORECTAL CANCER SCREENING COLORECTAL CANCER SCREENING [facility] Start: [address] COLONOGRAPHY [facility] Start: 2001 DIABETES SCREEN DIABETES SCREEN [facility] Start: 2001 Diabetes Screening Diabetes Screenin g [facility] Start: 2001 FECAL OCCULT BLOOD FECAL OCCULT BLOO D [facility] Start: 2001 Screening for malign ant neoplasm of colon [facility] Start: 2001 SIGMOIDOSCOPY SIGMOIDOSCOPY [facility] Start: 10-21-1991 Lipid panel Lipid Screening [facility] Start: 10-21-1991 LIPID SCREEN LIPID SCREEN [facility] Start: 10-21-1975 Urine microalbumin profile [facility] Start: 1974 HEPATITIS C SCREENING HEPATITIS C [facility] Start: 1974 Hepatitis C screening Hepatitis C [facility] Start: 1974 HIV SCREENING HIV SCREENING [facility] Start: 1955 ABDOMINAL AORTIC ANEURYSM SCREENING ABDOMINAL AORTIC ANEURYSM SCREENING [facility] Start: 1955 Abdominal aortic aneurysm screening Abdominal Aortic Aneurysm Screening [facility] Immunizations Immunization Date Immunization Notes Care Provider Christian marte NEGATED: Highlighted row has not occurred!03-08-2022 influenza virus vaccine, unspecified formulation Patricio BEAUCHAMP [facility] [place] Payers Date Payer Category Payer Medicare DEVOTED [facility]IC[facility] [id number] 2023-Present [phone] [address] [place] [address] O [id number] 2023 Unknown [id number] 2022 Private Health Insurance [facility] CHOICE PLUS [id number] 2022-Present [phone] [address] [place] [address] O [id number] 2006 Unknown [facility] [id number] 2006-Present [phone] [place] [address] [id number] 1959 Unknown [id number] 1959 Unknown [id number] 1955 Unknown [id number] 1955 Unknown [id number] .2.593 1955 Unknown [id number] .2.593 1955 Unknown [id number] .[id number] 1955 Unknown [id number] .2.593 1955 Unknown [id number] .2.593 1955 Unknown [id number] .2.593 1955 Unknown [id number] .2.593 1955 Unknown [id number] .[id number] Social History Date Type Detail Facility Start: 06-24-2020 End: 03-08-2022 Tobacco smoking status Ex-smoker (finding) [facility] Tobacco smoking status Never [facility] Start: 06-24-2020 End: 06-23-2022 Sex Assigned At Male Eduin Kumar [facility] End: 06-10-1989 History of tobacco use Current smoker [facility] End: 06-10-1989 History of tobacco use Cigarette Smoker [facility] Start: 06-24-2020 End: 06-23-2022 Cigarettes smoked current (pack per day) - Reported 1.5 [facility] Start: 06-24-2020 Tobacco use and exposure Smokeless tobacco non-user [facility] Start: 06-24-2020 [facility] intake [facility] Start: 1955 Sex Assigned At Not on file [facility] Clinical Notes 03-18-2022 to 08-08-2023 Telephone Encounter - Latisha Rojas LPN - 06/21/2023 2:40 PM EDTTelephone Encounter - Josefina Anderson RN - 05/23/2023 9:43 AM ESTG Isidoro Gonzáles MD - 06/23/2022 10:11 AM EDT Note Date & Type Note Facility 08-08-2023 Note Cardiovascular Medic [facility] SUBJECTIVE Chief Complaint Patient presents with [...] he cuts himself at work. 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 He denies any changes since last seen [...] deficit present. Ment (more content not included)... [facility] 06-21-2023 Miscellaneous Notes Melvina called to reschedule [...] Latisha Rojas RN documented in this encounter [facility] 05-23-2023 Miscellaneous Notes PT called in to schedule follow up for this year. He will also need PSA. Please sign pended order and we will fax to [facility]. Josefina Anderson, RN documented in this encounter [facility] 06-23-2022 Note HNO ID: [id number] Author: Quinton Gonzáles MD Service: ? Author [...] Time Spent: 6 minutes Quinton Gonzáles MD [facility] 06-23-2022 History of Presen t illness Narrative AMBULATORY TELEPHONE VISIT Pablo Beckman [...] Quinton Gonzáles MD documented in this encounter [facility] 06-23-2022 Miscellaneous Notes Appointment has been changed in Epic. Kwaku Rasmussen Per Dr Gonzáles, ok to switch to phone visit. Patient was notified. PSS- please change in epic. Josefina Anderson RN Pablo called wondering if his follow up appointment can be switched to a phone visit tomorrow. Please advise. Latisha Rojas LPN documented in this encounter [facility] 03-18-2022 Note OPERATIVE NOTE OPERATION DATE: [...] data available for this section [facility] [place] Evaluation note Diagnosis Malignant neoplasm of prostate (HCC)- Primary Malignant neoplasm of prostate [facility] Diagnosis Malignant neoplasm of prostate (HCC)- Primary Malignant neoplasm of prostate documented in this encounter [facility] note* Diagnosis Malignant neoplasm of prostate (HCC)- Primary Malignant neoplasm of prostate documented in this encounter [facility] Discharge instructions No data available for this section [facility] [place] Progress note No data available for this section [facility] Surgery [place] Summary Purpose Family History No Family History [...] and content) DATE CREATED AUTHOR 04/15/2021 [facility] DATE CREATED AUTHOR AUTHOR'S ORGANIZ ATION 08/08/2022 [facility] DATE CREATED AUTHOR AUTHOR'S ORGANIZ ATION 06/16/2023 [facility] DATE CREATED AUTHOR AUTHOR'S ORGANIZ ATION 06/23/2023 [facility] DATE CREATED AUTHOR AUTHOR'S ORGANIZ ATION 12/09/2023 [facility] Patient Care team informatio n (unrecognized section and content) 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 Start Date End Date Lv Heard MD PCP - General 02/24/09 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 Start Date End Date Lv Heard MD PCP - General 02/24/09 Source Comments (unrecognize d section and content) In the event this informatio n is protected by the Federal Confidentiality of Alcohol and Drug Abuse Patient Records regulations: The Federal rules restrict any use of the information to criminally investigate or prosecute any alcohol or drug abuse patient[facility] the event this information is protected by the Federal Confidentiality of Alcohol and Drug Abuse Patient Records regulations: The Federal rules restrict any use of the information to criminally investigate or prosecute any alcohol or drug abuse patient.[facility] the event this information is protected by the Federal Confidentiality of Alcohol and Drug Abuse Patient Records regulations: The Federal rules restrict any use of the information to criminally investigate or prosecute any alcohol or drug abuse patient.[facility] the event this information is protected by the Federal Confidentiality of Alcohol and Drug Abuse Patient Records regulations: The Federal rules restrict any use of the information to criminally investigate or prosecute any alcohol or drug abuse patient.[facility] Reason for Visit (unrecogniz ed section and content) Reason Comments Patient Question Reason Comments Established Patient Specialty Diagnoses / Procedures Referred By Contac t Referred To Contact Radiation Oncology / RADIATION ONCOLOGY Diagnoses Follow-up examination 1 yr follow up, psa at [place] Procedures OFFICE/OUTPATIENT ESTABLISHED MOD MDM 30-39 MIN EST PATIENT Quinton Gonzáles MD [address] [place] [address] [place] [address] Quinton Gonzáles MD [address] [place] [address] [place] [address] Referral ID Status Reason Start Date Expiration Date Visits Re quested Visits Authorized [id number] Open 06/23/2022 09/21/2022 1 0 Reason Comments [...] BE BASED ON THE PRIMARY CLINICAL RECORDS. [employer] [facility]. provides no warranty or guarantee of the accuracy or completeness of information in this document.
--- NOTE | 2024-02-03 21:11 | ED_ITS ---
HPI HPI - Back Pain/Injury General Chief Complaint: Back Pain/Injury Stated Complaint: Back Pain Time Seen by Provider: 02/03/24 20:39 Source: patient Mode of arrival: walk-in Limitations: no limitations History of Present Illness HPI Narrative: back pain for past week. States pain increased today. States it started at his left abdomen and then went into his back. Now it is primarily at his right back. Increased pain with change in position. States he did past blood per rectum. States this week would notice when wiping but today had blood with BM. no rectal or anal pain. Decreased intake today due to his pain. No radicular pain to his lower extremities. No fever or chills. Not able to recall any injury to his back Related Data Home Medications ?Medication ?Instructions ?Recorded ?Confirmed apixaban 5 mg tablet (Eliquis) 2.5 mg PO DAILY 12/06/23 02/03/24 ferrous sulfate 325 mg (65 mg 325 mg PO BID 12/06/23 02/03/24 iron) tablet (FeroSul) furosemide 20 mg tablet 20 mg PO DAILY 12/06/23 02/03/24 metoprolol tartrate 75 mg tablet 75 mg PO BID 12/06/23 02/03/24 rosuvastatin 20 mg tablet 20 mg PO DAILY 12/06/23 02/03/24 meclizine 25 mg tablet 25 mg PO DAILY 02/03/24 02/03/24 [id number] 1 tab PO DAILY 02/03/24 02/03/24 Allergies Allergy/AdvReac Type Severity Reaction Status Date / Time No Known Drug Allergies Allergy Verified 02/03/24 20:43 Opioid HPI Opioid Management Most Recent Opioid Data: 2 Last Pain Scale 10 02/03/24 23:33 02/03/24 Last ED Pain Assessment 02/03/24 22:59 Review of Systems 2 ROS0 Status of ROS 10 or more systems reviewed and unremark able except as noted in history and below [facility] Medical History (Updated 02/04/24 @ 01:52 by Mitul Vaughn MD) Afib ?I48.91 - Unspecified atrial fibrillation (ICD-10) Social History Little interest or pleasure in doing things: not at all Feeling down, depressed, or hopeless: not at all Exam Constitutional Vital Signs, click to edit/add: Last Vital Signs Temp 98.4 F 02/03/24 20:37 Pulse 88 02/04/24 00:44 Resp 20 02/04/24 00:44 BP 115/70 02/04/24 00:44 Pulse Ox 98 02/04/24 00:44 O2 Del Method Room Air 02/04/24 00:44 Common normals: average body habitus, oriented x3, healthy appearing, alert and well nourished General appearance: in distress (no distress lying still but when he moves he experiences pain) HENMT Common normals: normocephalic and head/scalp atraumatic Eye Common normals: EOMs intact bilaterally and conjunctivae normal Respiratory Common normals: normal respiratory effort, no retractions, no use of accessory muscles and clear to auscultation bilaterally Cardio Common normals: regular rate, regular rhythm, S1 normal heart sound and S2 normal heart sound GI Common normals: Normal to inspection, nondistended, normoactive bowel sounds present, soft to palpation and non-tender Other: rectal external hemorrhoidal tags noted. no blood. Digital exam with empty vault. nontender. No obvious blood Back & Pelvis Back image (male): 2 1. tender Extremity Common normals: normal to inspection and full ROM Neuro Common normals: oriented x3, CN's II-XII intact bilaterally, moves all extremities and no focal motor deficits Psych Appearance: grossly normal Course Vital Signs Vital signs: Vital Signs Temperature 98.4 F 02/03/24 20:37 Pulse Rate 80 02/03/24 20:37 Respiratory Rate 22 H 02/03/24 20:37 Blood Pressure 126/82 02/03/24 20:37 Pulse Oximetry 97 02/03/24 20:37 Oxygen Delivery Method Room Air 02/03/24 20:37 Temperature 98.4 F 02/03/24 20:37 Pulse Rate 88 02/04/24 00:44 Respiratory Rate 20 02/04/24 00:44 Blood Pressure 115/70 02/04/24 00:44 Pulse Oximetry 98 02/04/24 00:44 Oxygen Delivery Method Room Air 02/04/24 00:44 MDM - Back Pain/Injury MDM Narrative Medical decision making narrative: patient presents complaining of worsening back pain. Also states he passed blood per rectum. rectal exam neg. empty vault. H/H is at his baseline. Clinically has spasmodic pain. When he changes position he winces in pain. CTs with finding of bulging disc lumbar spine. CT abdomen without acute finding or evidence of bleeding patient given morphine, dilaudid, ativan and magnesium for pain he remains in pain. Discussed with the hospitalist and will plan obs admission Lab Data Labs: Lab Results 02/03/24 02/03/24 02/03/24 Range/Units 20:55 21:14 23:07 WBC 9.9 (4.0-11.0) 10^3/uL RBC 3.32 L (4.70-6.10) 10^6/uL Hgb 10.6 L (14.0-18.0) g/dL Hct 32.5 L (42.0-54.0) % MCV 97.9 H (80.0-94.0) fL MCH 31.9 (25.9-34.0) pg MCHC 32.6 (29.9-35.2) g/dL RDW 14.1 (11.0-15.0) % Plt Count 391 (150-450) 10^3/uL MPV 9.3 L (9.5-13.5) fL Neut % (Auto) 65.7 (43.0-75.0) % Lymph % (Auto) 18.5 L (20.5-60.0) % [place] % (Auto) 14.5 H (1.7-12.0) % Eos % (Auto) 0.8 L (0.9-7.0) % Baso % (Auto) 0.1 L (0.2-2.0) % Neut # (Auto) 6.5 (1.4-6.5) 10^3/uL Lymph # (Auto) 1.8 (1.2-3.8) 10^3/uL [place] # (Auto) 1.4 H (0.3-0.8) 10^3/uL Eos # (Auto) 0.1 (0.0-0.7) 10^3/uL Baso # (Auto) 0.0 (0.0-0.1) 10^3/uL Abs Immat Gran (auto) 0.04 H (0.00-0.03) 10^3/uL Imm/Tot Granulo (auto) 0.4 (0.0-0.5) % Sodium 138 (136-145) mmol/L Potassium 4.2 (3.5-5.1) mmol/L Chloride 101 (98-107) mmol/L Carbon Dioxide 23.7 (21.0-32.0) mmol/L Anion Gap 17.5 BUN 23.0 H (7.0-18.0) mg/dL Creatinine 1.48 H (0.70-1.30) mg/dL Est GFR ( Amer) 58 L (>=60 mL/min/1.73m^2) Est GFR (Non-Af Amer) 47 L (>=60 mL/min/1.73m^2) BUN/Creatinine Ratio 15.5 Glucose 146 H (74-106) mg/dL Lactate 1.1 (0.4-2.0) mmol/L Calcium 9.4 (8.5-10.1) mg/dL Total Bilirubin 0.7 (0.2-1.0) mg/dL AST 17 (15-37) U/L ALT 17 (16-63) U/L Alkaline Phosphatase 56 (46-116) U/L Total Protein 8.1 (6.4-8.2) g/dL Albumin 3.4 (3.4-5.0) g/dL Globulin 4.7 g/dL Albumin/Globulin Ratio 0.7 Urine Color Lt. yellow (YELLOW) Urine Clarity Clear (CLEAR) Urine pH 6.0 (5.0-9.0) Ur Specific [place] 1.010 (1.005-1.025) Urine Protein Negative (NEG/TRACE) mg/dL Urine Glucose (UA) Negative (NEGATIVE) mg/dL Urine Ketones Negative (NEGATIVE) mg/dL Urine Occult Blood Trace-i (NEGATIVE) Urine Nitrite Negative (NEGATIVE) Urine Bilirubin Negative (NEGATIVE) Urine Urobilinogen 0.2 (0.2-1.0) EU/dL Ur Leukocyte Esterase Negative (NEGATIVE) Urine RBC 0-2 (0-2) #/HPF Urine WBC None seen (NONE SEEN) #/HPF Ur Squamous Epith Cells None seen (NONE/RARE) #/LPF Urine Crystals None seen (None Seen) #/HPF Urine Bacteria Trace A (NONE SEEN) #/HPF Urine Casts None seen (NONE SEEN) #/LPF Urine Mucus None seen (NONE SEEN) Ur Culture Indicated? No Stool Occult Blood Negative Imaging Data Chest x-ray: Radiologist's impression: ITS Impressions Lumbar Spine CT 02/03/24 21:21 IMPRESSION: Lumbar spondylosis with associated multilevel disc bulging. Electronically authenticated by: ERIC WALTER Date: 02/04/2024 00:18 Abdomen/Pelvis CT 02/03/24 21:22 IMPRESSION: 1. No abnormality to explain lower GI bleed. No acute process. 2. Duodenal diverticulum as discussed, otherwise unremarkable appearance of large and small bowel. No acute inflammatory changes or obstruction. Electronically authenticated by: KAMI AGUIRRE Date: 02/04/2024 01:00 Discharge Plan Discharge Chief Complaint: Back Pain/Injury Clinical Impression: Intractable low back pain Patient Disposition: Admitted as Observation
--- NOTE | 2024-02-03 21:21 | CT_ITS ---
The [address] [address] Patient Name: PABLO ROBERTS MRN: [id number] date: 1955 Sex: M Assigned Patient Location: ER Current Patient Location: ER Accession/Order Number: [id number] Exam Date: 02/03/2024 21:51 Report Date: 02/04/2024 00:18 At the request of: ELVIN KEEN Procedure: CT lumbar spine w con EXAM: CT lumbar spine w con HISTORY: back pain COMPARISON: None. TECHNIQUE: Axial, sagittal and coronal images of the lumbar spine were created from source data obtained at the time of the CT abdomen and pelvis with intravenous contrast. FINDINGS: ALIGNMENT/BONY STRUCTURES: No CT evidence of an acute fracture, subluxation or loss of vertebral body height. There is multilevel loss of disc space and endplate osteophyte formation. CORD/CONUS: The cord and conus are poorly seen and not well evaluated on this CT. OTHER SPINAL FINDINGS: None. T12-L1: No disc protrusion, significant disc bulging or evidence of spinal canal stenosis. The neural foramina are patent. L1-L2: Mild disc bulging abuts the ventral thecal sac. No spinal canal stenosis. The neural foramina are patent. L2-L3: Disc bulging abuts the ventral thecal sac and encroaches fat within the inferior aspect of the neural foramen on the left. There is mild foraminal narrowing on the left at this level. No spinal canal stenosis. The neural foramen on the right is patent. L3-L4: Disc bulging flattens the ventral thecal sac. Facet degenerative change is seen. There is mild canal and left-sided foraminal narrowing. Moderate foraminal stenosis is present on the right. L4-L5: Disc bulging is eccentric and more pronounced laterally on the right at this level where there is associated endplate osteophyte. Disc material has no significant effect upon the thecal sac. Facet degenerative change is seen. There is moderate foraminal stenosis on the right. Mild foraminal narrowing is seen on the left. L5-S1: Disc bulging is again eccentric and more pronounced laterally where there is associated endplate osteophyte. Disc material abuts the ventral thecal sac. No spinal canal stenosis or mass effect upon the traversing S1 nerve roots. Facet degenerative change is noted. There is moderate to severe foraminal stenosis. NON SPINAL FINDINGS: Reported separately on the concurrently performed CT abdomen and pelvis. CT/CT lumbar spine w con IMPRESSION: Lumbar spondylosis with associated multilevel disc bulging. Electronically authenticated by: ERIC WALTER Date: 02/04/2024 00:18
--- NOTE | 2024-02-03 21:22 | CT_ITS ---
The [address] [address] Patient Name: PABLO ROBERTS MRN: [id number] date: 1955 Sex: M Assigned Patient Location: ER Current Patient Location: ER Accession/Order Number: [id number] Exam Date: 02/03/2024 21:51 Report Date: 02/04/2024 01:00 At the request of: ELVIN KEEN Procedure: CT abdomen pelvis w con CT OF THE ABDOMEN AND PELVIS WITH CONTRAST: 02/03/2024 9:51 PM EDT CLINICAL HISTORY: Lower GI bleed. COMPARISONS: None. TECHNIQUE: Thin section axial CT images were obtained from the lung bases to the pubis symphysis. This CT exam was performed using one or more of the following dose reduction techniques: Automated exposure control, adjustment of the mA and/or kV according to patient size, or use of iterative reconstruction technique. Thin section coronal and sagittal images were reconstructed from the axial data set. All images were reviewed and interpreted. CONTRAST: Intravenous contrast was administered. Type and amount is documented at the local institution. FINDINGS: LUNG BASES: No consolidation or pleural fluid. LIVER: Normal. GALLBLADDER: Normal. BILIARY TREE: No ductal dilatation. PANCREAS: Normal. SPLEEN: Normal. ADRENALS: Normal. KIDNEYS: Normal, without urolithiasis or hydronephrosis. URINARY BLADDER: Grossly unremarkable. PELVIC STRUCTURES: Changes of prior radiation therapy to prostate with implanted radiotherapy seeds. BOWEL: Note is made of the duodenal diverticulum arising from second portion extending towards head of pancreas measuring proximal a 2 x 2 centimeter. GE junction stomach and duodenum otherwise normal. Remaining small bowel and large bowel loops are normal in appearance. No evidence of obstruction, gross mass, or inflammatory change. There is no significant diverticulosis. There is no evidence of diverticulitis. APPENDIX: No active disease with normal appendix. LYMPH NODES: No pathologically enlarged lymph nodes identified. PERITONEUM: No intraperitoneal free air. No free intraperitoneal fluid. MESENTERY: Unremarkable. RETROPERITONEUM: The retroperitoneum is unremarkable. AORTA: Normal in caliber. BODY WALL: No body wall mass. Small incidental fat-containing umbilical hernias. OSSEOUS STRUCTURES: Nothing significant. CT/CT abdomen pelvis w con IMPRESSION: 1. No abnormality to explain lower GI bleed. No acute process. 2. Duodenal diverticulum as discussed, otherwise unremarkable appearance of large and small bowel. No acute inflammatory changes or obstruction. Electronically authenticated by: KAMI AGUIRRE Date: 02/04/2024 01:00
[2024-02-03 21:29] LABS: Basophils Percent Auto 0.1 % (0.2-2.0); Eosinophils Absolute Auto 0.1 10^3/uL (0.0-0.7); Eosinophils Percent Auto 0.8 % (0.9-7.0); Hematocrit 32.5 % (42.0-54.0); Hemoglobin 10.6 g/dL (14.0-18.0); Immature Granulocytes Abs Auto 0.04 10^3/uL (0.00-0.03); Immature Granulocytes Pct Auto 0.4 % (0.0-0.5); Lymphocytes Absolute Auto 1.8 10^3/uL (1.2-3.8); Lymphocytes Percent Auto 18.5 % (20.5-60.0); Mean Corpuscular HGB Conc 32.6 g/dL (29.9-35.2); Mean Corpuscular Hemoglobin 31.9 pg (25.9-34.0); Mean Corpuscular Volume 97.9 fL (80.0-94.0); Mean Platelet Volume 9.3 fL (9.5-13.5); Monocytes Absolute Auto 1.4 10^3/uL (0.3-0.8); Monocytes Percent Auto 14.5 % (1.7-12.0); Neutrophils Absolute Auto 6.5 10^3/uL (1.4-6.5); Neutrophils Percent Auto 65.7 % (43.0-75.0); Platelet Count 391 10^3/uL (150-450); Red Blood Count 3.32 10^6/uL (4.70-6.10); Red Cell Distribution Width 14.1 % (11.0-15.0); White Blood Count 9.9 10^3/uL (4.0-11.0)
[2024-02-03 21:40] LABS: Alanine Aminotransferase 17 U/L (16-63); Albumin Globulin Ratio 0.7; Albumin Level 3.4 g/dL (3.4-5.0); Alkaline Phosphatase 56 U/L (46-116); Anion Gap 17.5; Aspartate Amino Transferase 17 U/L (15-37); BUN Creatinine Ratio 15.5; Bilirubin Total 0.7 mg/dL (0.2-1.0); Calcium 9.4 mg/dL (8.5-10.1); Carbon Dioxide 23.7 mmol/L (21.0-32.0); Chloride 101 mmol/L (98-107); Estimated GFR (African America 58 (>=60 mL/min/1.73m^2); Estimated GFR (Non-African Ame 47 (>=60 mL/min/1.73m^2); Globulin 4.7 g/dL; Glucose 146 mg/dL (74-106); Potassium 4.2 mmol/L (3.5-5.1); Sodium 138 mmol/L (136-145); Total Protein 8.1 g/dL (6.4-8.2)
[2024-02-03 21:42] LABS: Lactate/Lactic Acid 1.1 mmol/L (0.4-2.0)
[2024-02-03] MEDS: ORPHENADRINE 60 MG/ 2 ML VIAL IV (21:48)
[2024-02-03] MEDS: MORPHINE SULFATE 4 MG/ML VIAL IV (21:48)
[2024-02-03 21:54] VITALS: BP 135/78
[2024-02-03 22:12] VITALS: BP 102/50; PULSE 76; O2SAT 97
[2024-02-03 22:58] VITALS: BP 119/64; PULSE 83; O2SAT 97
[2024-02-03 23:19] LABS: Internal Control Within Normal Limits; Occult Blood Negative
[2024-02-03 23:23] LABS: Bilirubin Urine NEGATIVE (NEGATIVE); Blood Urine TRACE-I (NEGATIVE); Clarity Urine CLEAR (CLEAR); Color Urine LT. YELLOW (YELLOW); Glucose Urine UA NEGATIVE (NEGATIVE); Ketones Urine NEGATIVE (NEGATIVE); Leukocyte Esterase Urine NEGATIVE (NEGATIVE); Nitrite Urine NEGATIVE (NEGATIVE); Protein Urine NEGATIVE (NEG/TRACE); Urine Microscopic Indicated YES; Urobilinogen Urine 0.2 EU/dL (0.2-1.0)
[2024-02-03 23:31] LABS: Bacteria Urine TRACE #/HPF (NONE SEEN); Cast Seen? NONE SEEN #/LPF (NONE SEEN); Crystals Seen? None Seen #/HPF (None Seen); Mucus Urine NONE SEEN (NONE SEEN); RBC Urine 0-2 #/HPF (0-2); Squamous Epithelial Cell Urine NONE SEEN #/LPF (NONE/RARE); Urine Culture Indicated NO; WBC Urine NONE SEEN #/HPF (NONE SEEN)
[2024-02-03] MEDS: HYDROMORPHONE HCL 0.5 MG/0.5 ML SYRINGE IV (23:33)
[2024-02-04] VITALS (11 sets, daily range): BP systolic 100–151; BP diastolic 53–79; PULSE 70–100; TEMP 36.4–37.8; O2SAT 91–98; BMI 32.6
[2024-02-04] MEDS: LORAZEPAM 2 MG/ML VIAL 1 MG IV (00:54)
[2024-02-04] MEDS: MAGNESIUM SULFATE IN WATER 2 GM/50 ML PREMIX IV (02:00)
--- OUTSIDE RECORDS SUMMARY | 2024-02-04 02:19 | XMS_ITS | CCD ---
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 Logging Truck Driver Name Role Phone MAMTA STEPHENSON Attending Unavailable SELF, REFERRED Primary Care Unavailable SELF, REFERRED Referring Unavailable MAMTA STEPHENSON Admitting Unavailable Lv Heard Primary Care Physician Lv Heard MD Primary Care Provider [phone] ., [address] CURRY Admitting Unavailable [...] QID, # 120 tab(s), Refills(s) 3, Pharmacy: [id number], 177.8, cm, 03/08/22 15:41:00 EST, Height/Length Dosing, [...] 06-10-2014 06-10-2014 Episodic Other aftercare (1 source) 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 [facility] Yes, recommend roni ng Eliquis until seen by GI and clearance from them that he can resume. We can ask Dr. Heard to comment if he recommends patient for Watchman and to note this in his office note. Thanks [facility] 36 Dr. Heard's office maddi led asking for recommendations for Eliquis hold s/p significant red blood in stools. He was seen in [facility] ED on 12/05. I have uploaded records into chief media officer for your review. There's no discharge summary or H&P. Just an ED report. Dr. Heard's office said Dr. Heard has him holding Eliquis for now. Please advise. Thanks. [facility] Office Visiton 08-08-2023 Follow-up visit [id number] Hanna Beckman 1955 M Date Provider Department Center 08/08/2023 [id number], MAMTA BH CARD [facility] Family History Problem Relation Age of Onset Stroke Mother Family Status - Relation Status Age at Mother Level of Service:45618 MT OFFICE/OUTPATIENT ESTABLISHED MOD [facility] 30 MIN Reason for Visit and Comments: Follow-up [516003] - 1 year Normal [facility] Jason 06-21-2023 CNPN Telephone (RADTSA) PABLO BECKMAN ([id number]) 1955 M Date Time Provider Department 06/21/23 [...] (HCC) [C61] Order(s):PSA/PROSTSPECAG DIAG [SQPSA] Order #: [id number] FUTURE Prescriptions as of 06/22/2023 - valACYclovir [...] Status:Closed by Quinton GONZÁLES on 06/21/23 Normal [facility] Reportson 06-15-2023 Lab Reports [id number] Normal [facility] 024 Physician Referral [id number] [facility] CNPNon 05-23-2023 CNPN Telephone (RADTSA) PABLO BECKMAN ([id number]) 1955 Date Time Provider Department 05/23/23 Quinton GONZÁLES RADTSA During your visit today, we recorded the following information about you: Josefina Anderson RN 05/23/2023 9:44 AM Signed PT called in to schedule follow up for this year. He will also need PSA. Please sign pended order and we will fax to [facility]. Josefina Anderson RN Allergies As of Date: 05/23/2023 (No Known Allergies) Date Reviewed: 06/24/2020 Reviewed by: Felecia Benites - Fully Assessed Reason for Visit: Future Appointment [256] Primary Visit Diagnosis:Malignant neoplasm of prostate (HCC) [C61] Order(s):PSA/PROSTSPECAG DIAG [SQPSA] Order #: [id number] FUTURE Prescriptions as of 05/23/2023 - valACYclovir [...] Status:Closed by Quinton GONZÁLES on 05/23/23 Normal [facility] SARS-CoV-2 (COVID-19) RNA ISIDRO+probe Ql (Unsp spec) Not detected Normal NOT DETECTED [facility] Comment on above: Result Comment: This test is not yet approved or cleared by the [place] FDA. When there are no FDA-approved or cleared tests available, and other criteria are met, FDA can make tests available under an emergency access mechanism called an Emergency Use Authorization (EUA). The EUA for this test is supported by the Drug Safety Specialist of Health and Human Service's (HHS's) declaration [...] T BASIM, Royer, FELICIANO, EMILY, CMP #### [facility] [address], [place] [address] Dr. Emely Adrian CBC AUTO DIFFon 03-09-2022 BASO # 0.0 103/ul Normal 0.0-0.1 [facility] Comment on above: Performed By: #### T SH, T7, LIPA, EMILY, CMP #### [facility] [address] [place] [address] Dr. Emely Adrian Basophils/100 WBC (Bld) 0.1 % Critically low 0.2-2.0 [facility] Comment on above: Performed By: #### T SH, T7, LIPA, EMILY, CMP #### [facility] [address] [place] [address] Dr. Emely Adrian EO # 0.2 103/ul Normal 0.0-0.7 [facility] Comment on above: Performed By: #### T SH, T7, LIPA, EMILY, CMP #### [facility] [address] [place] [address] Dr. Emely Adrian Eosinophils/100 WBC (Bld) 3.2 % Normal 0.9-7.0 [facility] Comment on above: Performed By: #### T SH, T7, LIPA, EMILY, CMP #### [facility] [address] [place] [address] Dr. Emely Adrian Erythrocyte distribution width (RBC) [Ratio] 15.8 % Critically high 11.0-15.0 [facility] Comment on above: Performed By: #### T SH, T7, LIPA, EMILY, CMP #### [facility] [address] [place] [address] Dr. Emely Adrian Hematocrit (Bld) [Volume fraction] 26.6 % Critically low 42.0-54.0 [facility] Comment on above: Performed By: #### T SH, T7, LIPA, EMILY, CMP #### [facility] [address] [place] [address] Dr. Emely Adrian Hemoglobin (Bld) [Mass/Vol] 9.0 g/dL Critically low 14.0-18.0 [facility] Comment on above: Performed By: #### T SH, T7, LIPA, EIMLY, CMP #### [facility] [address] [place] [address] Dr. Emely Adrian IG # 0.05 10e3/ul Critically high 0.00-0.03 [facility] Comment on above: Performed By: #### T SH, T7, LIPA, EMILY, CMP #### [facility] [address] [place] [address] Dr. Emely Adrian IG % 0.7 % Critically high 0.0-0.5 [facility] Comment on above: Performed By: #### T SH, T7, LIPA, EMILY, CMP #### [facility] [address] [place] [address] Dr. Emely Adrian LYMPH # 1.8 103/ul Normal 1.2-3.8 [facility] Comment on above: Performed By: #### T SH, T7, LIPA, EMILY, CMP #### [facility] [address] [place] [address] Dr. Emely Adrian Lymphocytes/100 WBC (Bld) 24.2 % Normal 20.5-60.0 [facility] Comment on above: Performed By: #### T SH, T7, LIPA, EMILY, CMP #### [facility] [address] [place] [address] Dr. Emely Adrian MANUAL DIFF REQ NO Normal [facility] Comment on above: Performed By: #### T SH, T7, LIPA, EMILY, CMP #### [facility] [address] [place] [address] Dr. Emely Adrian MCH (RBC) [Entitic mass] 32.7 pg Normal 25.9-34.0 [facility] Comment on above: Performed By: #### T SH, T7, LIPA, EMILY, CMP #### [facility] [address] [place] [address] Dr. Emely Adrian MCHC (RBC) [Mass/Vol] 33.8 g/dL Normal 29.9-35.2 [facility] Comment on above: Performed By: #### T SH, T7, LIPA, EMILY, CMP #### [facility] [address] [place] [address] Dr. Emely Adrian MCV (RBC) [Entitic vol] 96.7 fL Critically high 80.0-94.0 [facility] Comment on above: Performed By: #### T SH, T7, LIPA, EMILY, CMP #### [facility] [address] [place] [address] Dr. Emely Adrian MONO # 1.3 103/ul Critically high 0.3-0.8 [facility] Comment on above: Performed By: #### T SH, T7, LIPA, EMILY, CMP #### [facility] [address] [place] [address] Dr. Emely Adrian Monocytes/100 WBC (Bld) 18.0 % Critically high 1.7-12.0 [facility] Comment on above: Performed By: #### T SH, T7, LIPA, EMILY, CMP #### [facility] [address] [place] [address] Dr. Emely Adrian NEUT # 4.0 103/ul Normal 1.4-6.5 [facility] Comment on above: Performed By: #### T SH, T7, LIPA, EMILY, CMP #### [facility] [address] [place] [address] Dr. Emely Adrian Neutrophils/100 WBC (Bld) 53.8 % Normal 43.0-75.0 [facility] Comment on above: Performed By: #### T SH, T7, LIPA, EMILY, CMP #### [facility] [address] [place] [address] Dr. Emely Adrian Platelet mean volume (Bld) [Entitic vol] 8.7 fL Critically low 9.5-13.5 [facility] Comment on above: Performed By: #### T SH, T7, LIPA, EMILY, CMP #### [facility] [address] [place] [address] Dr. Emely Adrian PLT 320 103/ul Normal 150-450 [facility] Comment on above: Performed By: #### T SH, T7, LIPA, EMILY, CMP #### [facility] [address] [place] [address] Dr. Emely Adrian RBC 2.75 106/ul Critically low 4.70-6.10 [facility] Comment on above: Performed By: #### T SH, T7, LIPA, EMILY, CMP #### [facility] [address] [place] [address] Dr. Emely Adrian WBC 7.5 103/ul Normal 4.0-11.0 [facility] Comment on above: Performed By: #### T SH, T7, LIPA, EMILY, CMP #### [facility] [address] [place] [address] Dr. Emely Adrian LACTATE/LACTIC ACIDon 2021 Lactate [Moles/Vol] 0.7 mmol/L Normal 0.4-1.9 [facility] Comment on above: Performed By: #### T SH, T7, LIPA, EMILY, CMP #### [facility] [address] [place] [address] Dr. Emely Adrian LIPASEon 03-09-2022 Lipase [Catalytic activity/Vol] 386.0 U/L Normal 73.0-393.0 [facility] Comment on above: Performed By: #### C BC #### [facility] [address] [place] [address] Dr. Emely Adrian PROF 14(COMP METB)on 022 Albumin [Mass/Vol] 2.9 g/dL Critically low 3.4-5.0 [facility] Comment on above: Performed By: #### C MP #### [facility] [address] [place] [address] Dr. Emely Adrian Albumin/Globulin [Mass ratio] 0.7 {ratio} Normal [facility] Comment on above: Performed By: #### C MP #### [facility] [address] [place] [address] Dr. Emely Adrian ALP [Catalytic activity/Vol] 43 U/L Critically low 46-116 [facility] Comment on above: Performed By: #### C MP #### [facility] [address] [place] [address] Dr. Emely Adrian ALT [Catalytic activity/Vol] 23 U/L Normal 16-63 [facility] Comment on above: Performed By: #### C MP #### [facility] [address] [place] [address] Dr. Emely Adrian Anion gap [Moles/Vol] 13.4 mmol/L Normal [facility] Comment on above: Performed By: #### C MP #### [facility] [address] [place] [address] [address] Emely Adrian AST [Catalytic activity/Vol] 21 U/L Normal 15-37 [facility] Comment on above: Performed By: #### C MP #### [facility] [address] [address] [address] Emely Adrian Bilirubin [Mass/Vol] 0.4 mg/dL Normal 0.2-1.0 [facility] Comment on above: Performed By: #### C MP #### [facility] [address] [place] [address] Dr. Emely Adrian Calcium [Mass/Vol] 8.3 mg/dL Critically low 8.5-10.1 [facility] Comment on above: Performed By: #### C MP #### [facility] [address] [address] [address] Emely Adrian Chloride [Moles/Vol] 104 mmol/L Normal 98-107 [facility] Comment on above: Performed By: #### C MP #### [facility] [address] [address] [address] Emely Adrian CO2 [Moles/Vol] 22.9 mmol/L Normal 21.0-32.0 [facility] Comment on above: Performed By: #### C MP #### [facility] [address] [address] [address] Emely Adrian Creatinine [Mass/Vol] 1.80 mg/dL Critically high 0.70-1.30 [facility] Comment on above: Performed By: #### C MP #### [facility] [address] [place] [address] Dr. Emely Adrian EGFR-AF NICARAGUAN 46 mL/min/1.73m2 Critically low >=60 [facility] Comment on above: Performed By: #### C MP #### [facility] [address] [place] [address] Dr. Emely Adrian EGFR-NON AF NICARAGUAN 38 mL/min/1.73m2 Critically low >=60 [facility] Comment on above: Performed By: #### C MP #### [facility] [address] [place] [address] Dr. Emely Adrian Globulin (S) [Mass/Vol] 4.3 g/dL Normal [facility] Comment on above: Performed By: #### C MP #### [facility] [address] [place] [address] [address] Emely Adrian Glucose [Mass/Vol] 105 mg/dL Normal 74-106 [facility] Comment on above: Performed By: #### C MP #### [facility] [address] [place] [address] Dr. Emely Adrian Potassium [Moles/Vol] 4.3 mmol/L Normal 3.5-5.1 [facility] Comment on above: Performed By: #### C MP #### [facility] [address] [place] [address] Dr. Emely Adrian Protein [Mass/Vol] 7.2 g/dL Normal 6.4-8.2 [facility] Comment on above: Performed By: #### C MP #### [facility] [address] [place] [address] Dr. Emely Adrian Sodium [Moles/Vol] 136 mmol/L Normal 136-145 [facility] Comment on above: Performed By: #### C MP #### [facility] [address] [place] [address] Dr. Emely Adrian Urea nitrogen [Mass/Vol] 35.0 mg/dL Critically high 7.0-18.0 [facility] Comment on above: Performed By: #### C MP #### [facility] [address] [place] [address] Dr. Emely Adrian Urea nitrogen/Creatinin e [Mass ratio] 19.4 mg/mg Normal [facility] Comment on above: Performed By: #### C MP #### [facility] [address] [place] [address] Dr. Emely Adrian PROTIMEon 03-09-2022 INR Coag (PPP) [Relative time] 1.12 {INR} Normal [facility] Comment on above: Performed By: #### P TT, PT #### [facility] [address] [place] [address] Dr. Emely Adrian INR GUIDELINES SEE BELOW Normal [facility] Comment on above: Result Comment: DUSTIN RED INR: 2.0 - 3.0 CONDITIONS NOT LISTED BELOW 2.5 - 3.5 FOR PROSTHETIC HEART VALVE REPLACEMENT 2.5 - 3.5 RECURRENT THROMBOSIS Performed By: #### P TT, PT #### [facility] [address] [place] [address] Dr. Emely Adrian PT Coag (PPP) [Time] 12.0 s Critically high 9.0-11.6 [facility] Comment on above: Performed By: #### P TT, PT #### [facility] [address] [place] [address] Dr. Emely Adrian PTTon 03-09-2022 aPTT Coag (Bld) [Time] 32.1 s Normal 22.3-36.2 [facility] Comment on above: Performed By: #### P TT, PT #### [facility] [address] [place] [address] Dr. Emely Adrian TROPONIN, HIGH SENSITIVITYon 03-09-2022 HSTROP 12.0 pg/mL Normal 4.0-76.1 [facility] Comment on above: Result Comment: CUT- OFF POINTS HAVE BEEN ESTABLISHED BASED ON THE FOURTH UNIVERSAL DEFINITIONS OF MYOCARDIAL INFARCTION. THE UPPER REFERENCE LIMIT (URL) OF TROPONIN, DEFINED THE 99TH PERCENTILE OF cTnI DISTRIBUTION IN A REFERENCE POPULATION, HAS BEEN CONFIRMED THE DECISION THRESHOLD FOR ND DIAGNOSIS. Performed By: #### T SH, T7, LIPA, EMILY, CMP #### [facility] [address] [place] [address] Dr. Emely Adrian TYPE AND SCREENon 03-09-2022 TYPE AND SCREEN Negative Normal [facility] Comment on above: Performed By: #### T SH, T7, LIPA, EMILY, CMP #### [facility] [address] [place] [address] Dr. Emely Adrian XR CHEST 1 Von [...] by: PATRICIO ANTON Date: 2022-03-09 10:17 Normal [facility] CA 19-9on 02-26-2022 CA 19-9 4 U/mL Normal 0-35 [facility] Comment on above: Result Comment: [employer] Electrochemiluminescence Immunoassay (ECLIA) . Values obtained with different assay methods or kits cannot be used interchangeably. Results cannot be interpreted as absolute evidence of the presence or absence of malignant disease. Performed By: #### T SH, T7, LIPA, EMILY, CMP #### [facility] [address] [address] [address] Emely Adrian CEAon 02-26-2022 CEA 1.9 ng/mL Normal 0.0-4.7 [facility] Comment on above: Result Comment: Nons mokers <3.9 Smokers <5.6 . [employer] Electrochemiluminescence Immunoassay (ECLIA) . Values obtained with different assay methods or kits cannot be used interchangeably. Results cannot be interpreted as absolute evidence of the presence or absence of malignant disease. Performed By: #### T SH, T7, LIPA, EMILY, CMP #### [facility] [address] [place] [address] Dr. Emely Adrian H PYLORI ANTIBODY IGGon 02-08 H. PYLORI IGG ABS 1.19 Index Value Critically high 0.00-0. 79 [facility] Comment on above: Result Comment: Nega tive <0.80 Equivocal 0.80 - 0.89 Positive >0.89 Performed By: #### C BC #### [facility] [address] [place] [address] Dr. Emely Adrian AMYLASEon 02-25-2022 Amylase [Catalytic activity/Vol] 118 U/L Critically high 25-115 [facility] Comment on above: Performed By: #### T SH, T7, LIPA, EMILY, CMP #### [facility] [address] [place] [address] Dr. Emely Adrian CBC AUTO DIFFon 02-25-2022 BASO # 0.0 103/ul Normal 0.0-0.1 [facility] Comment on above: Performed By: #### T SH, T7, LIPA, EMILY, CMP #### [facility] [address] [place] [address] Dr. Emely Adrian Basophils/100 WBC (Bld) 0.2 % Normal 0.2-2.0 [facility] Comment on above: Performed By: #### T SH, T7, LIPA, EMILY, CMP #### [facility] [address] [place] [address] Dr. Emely Adrian EO # 0.1 103/ul Normal 0.0-0.7 [facility] Comment on above: Performed By: #### T SH, T7, LIPA, EMILY, CMP #### [facility] [address] [place] [address] Dr. Emely Adrian Eosinophils/100 WBC (Bld) 2.8 % Normal 0.9-7.0 [facility] Comment on above: Performed By: #### T SH, T7, LIPA, EMILY, CMP #### [facility] [address] [place] [address] Dr. Emely Adrian Erythrocyte distribution width (RBC) [Ratio] 15.6 % Critically high 11.0-15.0 [facility] Comment on above: Performed By: #### T SH, T7, LIPA, EMILY, CMP #### [facility] [address] [place] [address] Dr. Emely Adrian Hematocrit (Bld) [Volume fraction] 28.9 % Critically low 42.0-54.0 [facility] Comment on above: Performed By: #### T SH, T7, LIPA, EMILY, CMP #### [facility] [address] [place] [address] Dr. Emely Adrian Hemoglobin (Bld) [Mass/Vol] 9.5 g/dL Critically low 14.0-18.0 [facility] Comment on above: Performed By: #### T SH, T7, LIPA, EMILY, CMP #### [facility] [address] [place] [address] Dr. Emely Adrian IG # 0.04 10e3/ul Critically high 0.00-0.03 [facility] Comment on above: Performed By: #### T SH, T7, LIPA, EMILY, CMP #### [facility] [address] [place] [address] Dr. Emely Adrian IG % 0.9 % Critically high 0.0-0.5 [facility] Comment on above: Performed By: #### T SH, T7, LIPA, EMILY, CMP #### [facility] [address] [place] [address] Dr. Emely Adrian LYMPH # 1.3 103/ul Normal 1.2-3.8 [facility] Comment on above: Performed By: #### T SH, T7, LIPA, EMILY, CMP #### [facility] [address] [place] [address] Dr. Emely Adrian Lymphocytes/100 WBC (Bld) 29.6 % Normal 20.5-60.0 [facility] Comment on above: Performed By: #### T SH, T7, LIPA, EMILY, CMP #### [facility] [address] [place] [address] Dr. Emely Adrian MANUAL DIFF REQ NO Normal [facility] Comment on above: Performed By: #### T SH, T7, LIPA, EMILY, CMP #### [facility] [address] [place] [address] Dr. Emely Adrian MCH (RBC) [Entitic mass] 32.1 pg Normal 25.9-34.0 [facility] Comment on above: Performed By: #### T SH, T7, LIPA, EMILY, CMP #### [facility] [address] [place] [address] Dr. Emely Adrian MCHC (RBC) [Mass/Vol] 32.9 g/dL Normal 29.9-35.2 [facility] Comment on above: Performed By: #### T SH, T7, LIPA, EMILY, CMP #### [facility] [address] [place] [address] Dr. Emely Adrian MCV (RBC) [Entitic vol] 97.6 fL Critically high 80.0-94.0 [facility] Comment on above: Performed By: #### T SH, T7, LIPA, EMILY, CMP #### [facility] [address] [place] [address] Dr. Emely Adrian MONO # 0.8 103/ul Normal 0.3-0.8 [facility] Comment on above: Performed By: #### T SH, T7, LIPA, EMILY, CMP #### [facility] [address] [place] [address] Dr. Emely Adrian Monocytes/100 WBC (Bld) 17.2 % Critically high 1.7-12.0 [facility] Comment on above: Performed By: #### T SH, T7, LIPA, EMILY, CMP #### [facility] [address] [place] [address] Dr. Emely Adrian NEUT # 2.2 103/ul Normal 1.4-6.5 [facility] Comment on above: Performed By: #### T SH, T7, LIPA, EMILY, CMP #### [facility] [address] [place] [address] Dr. Emely Adrian Neutrophils/100 WBC (Bld) 49.3 % Normal 43.0-75.0 [facility] Comment on above: Performed By: #### T SH, T7, LIPA, EMILY, CMP #### [facility] [address] [place] [address] Dr. Emely Adrian Platelet mean volume (Bld) [Entitic vol] 9.2 fL Critically low 9.5-13.5 [facility] Comment on above: Performed By: #### T SH, T7, LIPA, EMILY, CMP #### [facility] [address] [place] [address] Dr. Emely Adrian PLT 259 103/ul Normal 150-450 [facility] Comment on above: Performed By: #### T SH, T7, LIPA, EMILY, CMP #### [facility] [address] [place] [address] Dr. Emely Adrian RBC 2.96 106/ul Critically low 4.70-6.10 [facility] Comment on above: Performed By: #### T SH, T7, LIPA, EMILY, CMP #### [facility] [address] [place] [address] Dr. Emely Adrian WBC 4.4 103/ul Normal 4.0-11.0 [facility] Comment on above: Performed By: #### T SH, T7, LIPA, EMILY, CMP #### [facility] [address] [place] [address] Dr. Emely Adrian FREE THYROXINE INDEX T7on FTI 1.80 Normal 1.30-4.50 [facility] Comment on above: Performed By: #### T SH, T7, LIPA, EMILY, CMP #### [facility] [address] [place] [address] Dr. Emely Adrian T3U 34.0 % Normal 33.0-40.0 [facility] Comment on above: Performed By: #### T SH, T7, LIPA, EMILY, CMP #### [facility] [address] [place] [address] Dr. Emely Adrian T4 [Mass/Vol] 5.30 ug/dL Normal 4.50-12.10 [facility] Comment on above: Performed By: #### T SH, T7, LIPA, EMILY, CMP #### [facility] [address] [place] [address] Dr. Emely Adrian GI PANEL (PCR)on 02-25-2022 Adenovirus F 40/41 Not detected Normal NOT DETECTED [facility] Comment on above: Performed By: #### G IPANEL #### [facility] [address] [place] [address] Dr. Emely Adrian Astrovirus Not detected Normal NOT DETECTED [facility] Comment on above: Performed By: #### G IPANEL #### [facility] [address] [place] [address] Dr. Emely Adrian C. Diff toxin A/B Not detected Normal NOT DETECTED [facility] Comment on above: Performed By: #### G IPANEL #### [facility] [address] [place] [address] Dr. Emely Adrian Campylobacter Not detected Normal NOT DETECTED [facility] Comment on above: Performed By: #### G IPANEL #### [facility] [address] [place] [address] Dr. Emely Adrian Cryptosporidium Not detected Normal NOT DETECTED [facility] Comment on above: Performed By: #### G IPANEL #### [facility] [address] [place] [address] Dr. Emely Adrian Cyclos. Cayetanensis Not detected Normal NOT DETECTED [facility] Comment on above: Performed By: #### G IPANEL #### [facility] [address] [place] [address] Dr. Emely Adrian E. Coli O157 Not Applicable Normal Not Applicable [facility] Comment on above: Performed By: #### G IPANEL #### [facility] [address] [place] [address] Dr. Emely Adrian E. histolytica Not detected Normal NOT DETECTED [facility] Comment on above: Performed By: #### G IPANEL #### [facility] [address] [place] [address] Dr. Emely Adrian EAEC Not detected Normal NOT DETECTED [facility] Comment on above: Performed By: #### G IPANEL #### [facility] [address] [place] [address] Dr. Emely Adrian EIEC Not detected Normal NOT DETECTED [facility] Comment on above: Performed By: #### G IPANEL #### [facility] [address] [place] [address] Dr. Emely Adrian EPEC Not detected Normal NOT DETECTED [facility] Comment on above: Performed By: #### G IPANEL #### [facility] [address] [place] [address] Dr. Emely Adrian ETEC Not detected Normal NOT DETECTED [facility] Comment on above: Performed By: #### G IPANEL #### [facility] [address] [address] [address] Emely Olsen Lamblia Not detected Normal NOT DETECTED [facility] Comment on above: Performed By: #### G IPANEL #### [facility] [address] [address] [address] Emely STODDARD CONTROLS PASSED Normal [facility] Comment on above: Performed By: #### G IPANEL #### [facility] [address] [address] [address] Emely RODRIGUEZ MARY HEADER GI PANEL BACTERIA Normal T [facility] Comment on above: Performed By: #### G IPANEL #### [facility] [address] [address] [address] Emely KAHN ECOLI GI PANEL DIARRHEAGEN IC E.COLI / SHIGELLA Normal [facility] Comment on above: Performed By: #### G IPANEL #### [facility] [address] [address] [address] Emely KAHN INFO SEE BELOW Normal [facility] Comment on above: Result Comment: EAEC - Enteroaggregative E. Coli EPEC- Enteropathogenic E. Coli ETEC- Enterotoxigenic E. Coli lt/st STEC- Shigella-like toxin-producing E. Coli stx1/stx2 EIEC- Shigella/Enteroinvasive E. Coli Performed By: #### G IPANEL #### [facility] [address] [place] [address] Dr. Emely KAHN PARASITES GI PANEL PARASITES Normal [facility] Comment on above: Performed By: #### G IPANEL #### [facility] [address] [address] [address] Emely KAHN VIRUS GI PANEL VIRUSES Normal [facility] Comment on above: Performed By: #### G IPANEL #### [facility] [address] [address] [address] Emely Adrian Norovirus GI/GII Not detected Normal NOT DETECTED [facility] Comment on above: Performed By: #### G IPANEL #### [facility] [address] [address] [address] Emely Adrian P. Shigelloides Not detected Normal NOT DETECTED [facility] Comment on above: Performed By: #### G IPANEL #### [facility] [address] [address] [address] Emely Adrian Rotavirus A Not detected Normal NOT DETECTED [facility] Comment on above: Performed By: #### G IPANEL #### [facility] [address] [address] [address] Emely Adrian Salmonella Not detected Normal NOT DETECTED [facility] Comment on above: Performed By: #### G IPANEL #### [facility] [address] [place] [address] Dr. Emely Adrian Sapovirus Not detected Normal NOT DETECTED [facility] Comment on above: Performed By: #### G IPANEL #### [facility] [address] [place] [address] Dr. Emely Adrian STEC Not detected Normal NOT DETECTED [facility] Comment on above: Performed By: #### G IPANEL #### [facility] [address] [address] [address] Emely Adrian Vibrio Not detected Normal NOT DETECTED [facility] Comment on above: Performed By: #### G IPANEL #### [facility] [address] [place] [address] Dr. Emely Adrian Vibrio Cholera Not detected Normal NOT DETECTED [facility] Comment on above: Performed By: #### G IPANEL #### [facility] [address] [place] [address] Dr. Emely Adrian Y. Enterocolitica Not detected Normal NOT DETECTED [facility] Comment on above: Performed By: #### G IPANEL #### [facility] [address] [place] [address] Dr. Emely Adrian GLYCOHEMOGLOBIN A1Con 2021 ADA RECOMMENDATION SEE BELOW Normal [facility] Comment on above: Result Comment: ADA RECOMMENDED LIMIT 4.0 - 6.0 ADA THERAPEUTIC TARGET < 7.0 ACTION SUGGESTED > 7.0 Performed By: #### T SH, T7, LIPA, EMILY, CMP #### [facility] [address] [address] [address] Emely Adrian Glucose [Mass/Vol] 120 mg/dL Normal [facility] Comment on above: Performed By: #### T SH, T7, LIPA, EMILY, CMP #### [facility] [address] [place] [address] Dr. Emely Adrian HbA1c (Bld) [Mass fraction] 5.8 % Normal 4.5-6.2 [facility] Comment on above: Performed By: #### T SH, T7, LIPA, EMILY, CMP #### [facility] [address] [place] [address] Dr. Emely Adrian IRONon 02-25-2022 Iron [Mass/Vol] 55.0 ug/dL Critically low 65.0-175.0 [facility] Comment on above: Performed By: #### C BC #### [facility] [address] [place] [address] Dr. Emely Adrian LIPASEon 02-25-2022 Lipase [Catalytic activity/Vol] 671.0 U/L Critically high 73.0-393.0 [facility] Comment on above: Performed By: #### T SH, T7, LIPA, EMILY, CMP #### [facility] [address] [place] [address] Dr. Emely Adrian OCC BLD IMMUNO SCREENon 02-08 OCCULT BLOOD Positive Abnormal NEGATIVE [facility] Comment on above: Performed By: #### T SH, T7, LIPA, EMILY, CMP #### [facility] [address] [place] [address] Dr. Emely Adrian PROF 14(COMP METB)on 022 Albumin [Mass/Vol] 3.0 g/dL Critically low 3.4-5.0 [facility] Comment on above: Performed By: #### T SH, T7, LIPA, EMILY, CMP #### [facility] [address] [place] [address] Dr. Emely Adrian Albumin/Globulin [Mass ratio] 0.8 {ratio} Normal [facility] Comment on above: Performed By: #### T SH, T7, LIPA, EMILY, CMP #### [facility] [address] [place] [address] Dr. Emely Adrian ALP [Catalytic activity/Vol] 58 U/L Normal 46-116 [facility] Comment on above: Performed By: #### T SH, T7, LIPA, EMILY, CMP #### [facility] [address] [place] [address] Dr. Emely Adrian ALT [Catalytic activity/Vol] 25 U/L Normal 16-63 [facility] Comment on above: Performed By: #### T SH, T7, LIPA, EMILY, CMP #### [facility] [address] [place] [address] Dr. Emely Adrian Anion gap [Moles/Vol] 12.1 mmol/L Normal [facility] Comment on above: Performed By: #### T SH, T7, LIPA, EMILY, CMP #### [facility] [address] [place] [address] Dr. Emely Adrian AST [Catalytic activity/Vol] 20 U/L Normal 15-37 [facility] Comment on above: Performed By: #### T SH, T7, LIPA, EMILY, CMP #### [facility] [address] [place] [address] Dr. Emely Adrian Bilirubin [Mass/Vol] 0.2 mg/dL Normal 0.2-1.0 [facility] Comment on above: Performed By: #### T SH, T7, LIPA, EMILY, CMP #### [facility] [address] [place] [address] Dr. Emely Adrian Calcium [Mass/Vol] 8.3 mg/dL Critically low 8.5-10.1 [facility] Comment on above: Performed By: #### T SH, T7, LIPA, EMILY, CMP #### [facility] [address] [place] [address] Dr. Emely Adrian Chloride [Moles/Vol] 108 mmol/L Critically high 98-107 [facility] Comment on above: Performed By: #### T SH, T7, LIPA, EMILY, CMP #### [facility] [address] [place] [address] Dr. Emely Adrian CO2 [Moles/Vol] 24.5 mmol/L Normal 21.0-32.0 [facility] Comment on above: Performed By: #### T SH, T7, LIPA, EMILY, CMP #### [facility] [address] [place] [address] Dr. Emely Adrian Creatinine [Mass/Vol] 0.97 mg/dL Normal 0.70-1.30 [facility] Comment on above: Performed By: #### T SH, T7, LIPA, EMILY, CMP #### [facility] [address] [place] [address] Dr. Emely Adrian EGFR-AF NICARAGUAN >60 Normal >=60 [facility] Comment on above: Performed By: #### T SH, T7, LIPA, EMILY, CMP #### [facility] [address] [place] [address] Dr. Emely Adrian EGFR-NON AF NICARAGUAN >60 Normal >=60 [facility] Comment on above: Performed By: #### T SH, T7, LIPA, EMILY, CMP #### [facility] [address] [place] [address] Dr. Emely Adrian Globulin (S) [Mass/Vol] 3.8 g/dL Normal [facility] Comment on above: Performed By: #### T SH, T7, LIPA, EMILY, CMP #### [facility] [address] [place] [address] Dr. Emely Adrian Glucose [Mass/Vol] 97 mg/dL Normal 74-106 [facility] Comment on above: Performed By: #### T SH, T7, LIPA, EMILY, CMP #### [facility] [address] [place] [address] Dr. Emely Adrian Potassium [Moles/Vol] 4.6 mmol/L Normal 3.5-5.1 [facility] Comment on above: Performed By: #### T SH, T7, LIPA, EMILY, CMP #### [facility] [address] [place] [address] Dr. Emely Adrian Protein [Mass/Vol] 6.8 g/dL Normal 6.4-8.2 [facility] Comment on above: Performed By: #### T SH, T7, LIPA, EMILY, CMP #### [facility] [address] [place] [address] Dr. Emely Adrian Sodium [Moles/Vol] 140 mmol/L Normal 136-145 [facility] Comment on above: Performed By: #### T SH, T7, LIPA, EMILY, CMP #### [facility] [address] [place] [address] Dr. Emely Adrian Urea nitrogen [Mass/Vol] 20.0 mg/dL Critically high 7.0-18.0 [facility] Comment on above: Performed By: #### T SH, T7, LIPA, EMILY, CMP #### [facility] [address] [place] [address] Dr. Emely Adrian Urea nitrogen/Creatinin e [Mass ratio] 20.6 mg/mg Normal [facility] Comment on above: Performed By: #### T SH, T7, LIPA, EMILY, CMP #### [facility] [address] [place] [address] Dr. Emely Adrian TSHon 02-25-2022 TSH 1.247 uIU/mL Normal 0.358-3.740 [facility] Comment on above: Performed By: #### T SH, T7, LIPA, EMILY, CMP #### [facility] [address] [place] [address] Dr. Emely Adrian VITAMIN D 25 OHon 02-25-2022 VIT D 25-OH 23.9 ng/mL Normal [facility] Comment on above: Performed By: #### C BC #### [facility] [address] [place] [address] Dr. Emely Adrian VIT D RANGES SEE BELOW Normal [facility] Comment on above: Result Comment: <20 ng/mL Vit D deficient 20 - <30 ng/mL Vit D insufficient 30 - 100 ng/mL Vit D sufficient >100 ng/mL Potential Toxicity Performed By: #### C BC #### [facility] [address] [address] [address] Emely Adrian CREATININEon 12-30-2021 Creatinine [Mass/Vol] 1.21 mg/dL Normal 0.70-1.30 [facility] Comment on above: Performed By: #### T SH, T7, LIPA, EMILY, CMP #### [facility] [address] [address] [address] Emely Adrian EGFR-AF NICARAGUAN >60 Normal >=60 [facility] Comment on above: Performed By: #### T SH, T7, LIPA, EMILY, CMP #### [facility] [address] [address] [address] Emely Adrian EGFR-NON AF NICARAGUAN =60 Normal >=60 [facility] Comment on above: Performed By: #### T SH, T7, LIPA, EMILY, CMP #### [facility] [address] [place] [address] CHEST WO W [...] by: KIRK CRUZ Date: 2021-12-30 08:46 Normal [facility] NM STRESS/REST MULTIon 11-09 NM STRESS/REST MULTI Patient: PABLO BECKMAN Exam Date: 11/09/2021 : 1955 Gender:M Ordering : DR LV HEARD . Admission #: [id number] Family : Order #: [id number] CLICK HERE TO VIEW EXAM RADIOLOGY REPORT [...] Cruz M.D. on 11/09/2021 at 14:17 Normal [facility] CARDIAC PHILIP 3-6on 2 CK [Catalytic activity/Vol] 114 U/L Normal 39-308 [facility] Comment on above: Performed By: #### T SH, T7, LIPA, EMILY, CMP #### [facility] [address] [place] [address] Dr. Emely Adrian CK.MB [Mass/Vol] 1.75 ng/mL Normal <=3.60 [facility] Comment on above: Performed By: #### T SH, T7, LIPA, EMILY, CMP #### [facility] [address] [place] [address] Dr. Emely Adrian HSTROP 10.8 pg/mL Normal 4.0-76.1 [facility] Comment on above: Result Comment: CUT- OFF POINTS HAVE BEEN ESTABLISHED BASED ON THE FOURTH UNIVERSAL DEFINITIONS OF MYOCARDIAL INFARCTION. THE UPPER REFERENCE LIMIT (URL) OF TROPONIN, DEFINED THE 99TH PERCENTILE OF cTnI DISTRIBUTION IN A REFERENCE POPULATION, HAS BEEN CONFIRMED THE DECISION THRESHOLD FOR ND DIAGNOSIS. Performed By: #### T SH, T7, LIPA, EMILY, CMP #### [facility] [address] [place] [address] Dr. Emely Adrian CK [Catalytic activity/Vol] 122 U/L Normal 39-308 [facility] Comment on above: Performed By: #### T SH, T7, LIPA, EMILY, CMP #### [facility] [address] [place] [address] Dr. Emely Adrian CK.MB [Mass/Vol] 2.59 ng/mL Normal <=3.60 [facility] Comment on above: Performed By: #### T SH, T7, LIPA, EMILY, CMP #### [facility] [address] [place] [address] Dr. Emely Adrian HSTROP 10.5 pg/mL Normal 4.0-76.1 [facility] Comment on above: Result Comment: CUT- OFF POINTS HAVE BEEN ESTABLISHED BASED ON THE FOURTH UNIVERSAL DEFINITIONS OF MYOCARDIAL INFARCTION. THE UPPER REFERENCE LIMIT (URL) OF TROPONIN, DEFINED THE 99TH PERCENTILE OF cTnI DISTRIBUTION IN A REFERENCE POPULATION, HAS BEEN CONFIRMED THE DECISION THRESHOLD FOR ND DIAGNOSIS. Performed By: #### T SH, T7, LIPA, EMILY, CMP #### [facility] [address] [place] [address] Dr. Emely Adrian CK [Catalytic activity/Vol] 130 U/L Normal 39-308 [facility] Comment on above: Performed By: #### C BC #### [facility] [address] [address] [address] Emely Adrian CK.MB [Mass/Vol] 2.10 ng/mL Normal <=3.60 [facility] Comment on above: Performed By: #### C BC #### [facility] [address] [address] [address] Emely Adrian HSTROP 10.2 pg/mL Normal 4.0-76.1 [facility] Comment on above: Result Comment: CUT- OFF POINTS HAVE BEEN ESTABLISHED BASED ON THE FOURTH UNIVERSAL DEFINITIONS OF MYOCARDIAL INFARCTION. THE UPPER REFERENCE LIMIT (URL) OF TROPONIN, DEFINED THE 99TH PERCENTILE OF cTnI DISTRIBUTION IN A REFERENCE POPULATION, HAS BEEN CONFIRMED THE DECISION THRESHOLD FOR ND DIAGNOSIS. Performed By: #### C BC #### [facility] [address] [place] [address] Dr. Emely Adrian CARDIAC PHILIP ADMITon 022 CK [Catalytic activity/Vol] 164 U/L Normal 39-308 [facility] Comment on above: Performed By: #### C BC #### [facility] [address] [address] [address] Emely Adrian CK.MB [Mass/Vol] 3.38 ng/mL Normal <=3.60 [facility] Comment on above: Performed By: #### C BC #### [facility] [address] [address] [address] Emely Adrian HSTROP 9.5 pg/mL Normal 4.0-76.1 [facility] Comment on above: Result Comment: CUT- OFF POINTS HAVE BEEN ESTABLISHED BASED ON THE FOURTH UNIVERSAL DEFINITIONS OF MYOCARDIAL INFARCTION. THE UPPER REFERENCE LIMIT (URL) OF TROPONIN, DEFINED THE 99TH PERCENTILE OF cTnI DISTRIBUTION IN A REFERENCE POPULATION, HAS BEEN CONFIRMED THE DECISION THRESHOLD FOR ND DIAGNOSIS. Performed By: #### C BC #### [facility] [address] [address] [address] Emely Adrian ADY 124 ng/mL Critically high 16-96 [facility] Comment on above: Performed By: #### C BC #### [facility] [address] [place] [address] Dr. Emely Adrian CBC AUTO DIFFon 10-27-2021 BASO # 0.0 103/ul Normal 0.0-0.1 [facility] Comment on above: Performed By: #### C BC #### [facility] [address] [place] [address] Dr. Emely Adrian Basophils/100 WBC (Bld) 0.1 % Critically low 0.2-2.0 [facility] Comment on above: Performed By: #### C BC #### [facility] [address] [place] [address] Dr. Emely Adrian EO # 0.3 103/ul Normal 0.0-0.7 [facility] Comment on above: Performed By: #### C BC #### [facility] [address] [place] [address] Dr. Emely Adrian Eosinophils/100 WBC (Bld) 3.2 % Normal 0.9-7.0 [facility] Comment on above: Performed By: #### C BC #### [facility] [address] [place] [address] Dr. Emely Adrian Erythrocyte distribution width (RBC) [Ratio] 13.6 % Normal 11.0-15.0 [facility] Comment on above: Performed By: #### C BC #### [facility] [address] [place] [address] Dr. Emely Adrian Hematocrit (Bld) [Volume fraction] 32.2 % Critically low 42.0-54.0 [facility] Comment on above: Performed By: #### C BC #### [facility] [address] [place] [address] Dr. Emely Adrian Hemoglobin (Bld) [Mass/Vol] 10.5 g/dL Critically low 14.0-18.0 [facility] Comment on above: Performed By: #### C BC #### [facility] [address] [place] [address] Dr. Emely Adrian IG # 0.05 10e3/ul Critically high 0.00-0.03 [facility] Comment on above: Performed By: #### C BC #### [facility] [address] [address] [address] Emely Adrian IG % 0.6 % Critically high 0.0-0.5 [facility] Comment on above: Performed By: #### C BC #### [facility] [address] [address] [address] Emely Adrian LYMPH # 1.7 103/ul Normal 1.2-3.8 [facility] Comment on above: Performed By: #### C BC #### [facility] [address] [place] [address] Dr. Emely Adrian Lymphocytes/100 WBC (Bld) 19.7 % Critically low 20.5-60.0 [facility] Comment on above: Performed By: #### C BC #### [facility] [address] [place] [address] Dr. Emely Adrian MANUAL DIFF REQ NO Normal [facility] Comment on above: Performed By: #### C BC #### [facility] [address] [place] [address] Dr. Emely Adrian MCH (RBC) [Entitic mass] 31.7 pg Normal 25.9-34.0 [facility] Comment on above: Performed By: #### C BC #### [facility] [address] [place] [address] Dr. Emely Adrian MCHC (RBC) [Mass/Vol] 32.6 g/dL Normal 29.9-35.2 [facility] Comment on above: Performed By: #### C BC #### [facility] [address] [place] [address] Dr. Emely Adrian MCV (RBC) [Entitic vol] 97.3 fL Critically high 80.0-94.0 [facility] Comment on above: Performed By: #### C BC #### [facility] [address] [place] [address] Dr. Emely Adrian MONO # 1.0 103/ul Critically high 0.3-0.8 [facility] Comment on above: Performed By: #### C BC #### [facility] [address] [place] [address] Dr. Emely Adrian Monocytes/100 WBC (Bld) 12.4 % Critically high 1.7-12.0 [facility] Comment on above: Performed By: #### C BC #### [facility] [address] [place] [address] Dr. Emely Adrian NEUT # 5.4 103/ul Normal 1.4-6.5 [facility] Comment on above: Performed By: #### C BC #### [facility] [address] [place] [address] Dr. Emely Adrian Neutrophils/100 WBC (Bld) 64.0 % Normal 43.0-75.0 [facility] Comment on above: Performed By: #### C BC #### [facility] [address] [place] [address] Dr. Emely Adrian Platelet mean volume (Bld) [Entitic vol] 9.2 fL Critically low 9.5-13.5 [facility] Comment on above: Performed By: #### C BC #### [facility] [address] [place] [address] Dr. Emely Adrian PLT 417 103/ul Normal 150-450 [facility] Comment on above: Performed By: #### C BC #### [facility] [address] [place] [address] Dr. Emely Adrian RBC 3.31 106/ul Critically low 4.70-6.10 [facility] Comment on above: Performed By: #### C BC #### [facility] [address] [place] [address] Dr. Emely Adrian WBC 8.4 103/ul Normal 4.0-11.0 [facility] Comment on above: Performed By: #### C BC #### [facility] [address] [place] [address] Dr. Emely Adrian CTA CHEST WO W [...] KIRK CRUZ Date: 2021-10-27 06:37 Normal [facility]09 SARS-CoV-2 (COVID-19) RNA ISIDRO+probe Ql (Unsp spec) Not detected Normal NOT DETECTED [facility] Comment on above: Result Comment: When [...] for this test is supported by the Drug Safety Specialist of Health and Human Service's declaration that [...] T BASIM, T7, EMILY WIGGINS, CMP #### [facility] [address] [address] [address] Emely Adrian D-DIMERon 10-27-2021 D-DIMER 2.19 mg/L FEU Critically high <=0.59 [facility] Comment on above: Performed By: #### T BASIM, T7, EMILY WIGGINS, CMP #### [facility] [address] [address] [address] Emely Adrian D-DIMER COMMENTS SEE BELOW Normal [facility] Comment on above: Result Comment: Incr [...] T BASIM, Royer, EMILY WIGGINS, CMP #### [facility] [address] [address] [address] Emely Adrian DIGOXINon 10-27-2021 DIG <0.2 Critically low 0.9-2.0 [facility] Comment on above: Performed By: #### T BASIM, T7, EMILY WIGGINS, CMP #### [facility] [address] [address] [address] Emely Adrian ECHOCARDIO M/2D COMPLETEon 0 10-27-2021 ECHOCARDIO M/2D COMPLETE Patient: PABLO BECKMAN Exam Date: 10/27/2021 : 1955 Gender:M Ordering : DR LV HEARD . Admission #: [id number] Family : Order #: [id number] CLICK HERE TO VIEW EXAM ECHOCARDIOGRAM REPORT [...] M.D. on 10/27/2021 at 17:01 Normal [facility] LACTATE/LACTIC ACIDon 2021 Lactate [Moles/Vol] 0.5 mmol/L Normal 0.4-1.9 [facility] Comment on above: Performed By: #### T SH, T7, LIPA, EMILY, CMP #### [facility] [address] [address] [address] Emely Adrian Lactate [Moles/Vol] 0.5 mmol/L Normal 0.4-1.9 [facility] Comment on above: Performed By: #### C BC #### [facility] [address] [place], [place] [address] Dr. Emely Adrian PROF CHEM 8 ([facility] METB)on Anion gap [Moles/Vol] 15.3 mmol/L Normal [facility] Comment on above: Performed By: #### C BC #### [facility] [address] [address] [address] Emely Adrian Calcium [Mass/Vol] 9.1 mg/dL Normal 8.5-10.1 [facility] Comment on above: Performed By: #### C BC #### [facility] [address] [address] [address] Emely Adrian Chloride [Moles/Vol] 105 mmol/L Normal 98-107 [facility] Comment on above: Performed By: #### C BC #### [facility] [address] [place] [address] Dr. Emely Adrian CO2 [Moles/Vol] 26.6 mmol/L Normal 21.0-32.0 [facility] Comment on above: Performed By: #### C BC #### [facility] [address] [place] [address] Dr. Emely Adrian Creatinine [Mass/Vol] 1.29 mg/dL Normal 0.70-1.30 [facility] Comment on above: Performed By: #### C BC #### [facility] [address] [place] [address] Dr. Emely Adrian EGFR-AF NICARAGUAN >60 Normal >=60 [facility] Comment on above: Performed By: #### C BC #### [facility] [address] [place] [address] Dr. Emely Adrian EGFR-NON AF NICARAGUAN 56 mL/min/1.73m2 Critically low >=60 [facility] Comment on above: Performed By: #### C BC #### [facility] [address] [address] [address] Emely Adrian Glucose [Mass/Vol] 100 mg/dL Normal 74-106 [facility] Comment on above: Performed By: #### C BC #### [facility] [address] [place] [address] Dr. Emely Adrian Potassium [Moles/Vol] 3.9 mmol/L Normal 3.5-5.1 [facility] Comment on above: Performed By: #### C BC #### [facility] [address] [place], [place] [address] Dr. Emely Adrian Sodium [Moles/Vol] 143 mmol/L Normal 136-145 [facility] Comment on above: Performed By: #### C BC #### [facility] [address] [place], [place] [address] Dr. Emely Adrian Urea nitrogen [Mass/Vol] 28.0 mg/dL Critically high 7.0-18.0 [facility] Comment on above: Performed By: #### C BC #### [facility] [address] [place], [place] [address] Dr. Emely Adrian Urea nitrogen/Creatinin e [Mass ratio] 21.7 mg/mg Normal [facility] Comment on above: Performed By: #### C BC #### [facility] [address] [place], [place] [address] Dr. Emely Adrian XR CHEST 1 Von [...] KARLY SAID Date: 2021-10-27 04:41 Normal [facility] Cardiovascular Lab Reporton 04-09-2021 Cardiovascular Lab Report [facility] Patient Name: Pablo Beckman [facility] MR #: [id number] Physician: Mamta Stephenson, Department of DENTAL THERAPIST Medicine Service Date: 04/07/2021 Division of Birthdate: 1955 Cardiology Room #: [facility] Adult [facility] Services [place] [address] Cardiovascular Laboratory Report DATE OF PROCEDURE; 04/07/2021 [...] Weeks MD Date Trans: 04/09/2021 11:17 A/ [id number] Normal [facility] Encounters Encounter Date Encounter Type Care Provider Facility Start: 08-08-2023 End: 08-08-2023 ambulatory MAMTA STEPHENSON [facility] Start: 06-21-2023 Telephone encounter Quinton Gonzáles [...] End: 06-23-2022 Telemedicine consultation with patient Quinton Gonzáles MD Work Phone: [facility] Start: 06-23-2022 End: 06-24-2022 ambulatory LV Hoskins ROSEHarley Facility:[facility] Start: 06-22-2022 Telephone encounter Quinton Gonzáles MD Work Phone: Radiation Oncology Comment on above: Patient Question Start: 06-02-2022 End: 06-03-[address] JT GONZÁLES Facility:[facility] Start: 03-29-2022 End: 03-29-2022 Patient encounter procedure Patricio BEAUCHAMP General Surgery Nito/Alecia Yanez Start: 03-19-2022 Encounter for preprocedural laboratory examination DR PATRICIO Rosario [facility] Start: 03-18-2022 End: 03-18-[address] [...] Facility:[facility] Start: 11-09-2021 End: 11-10-[address] VL HEARD . Facility:[facility] Start: 10-27-2021 End: 10-27-[address] LV HEARD . Facility:[facility] Start: 04-07-2021 End: 04-08-2021 ambulatory MAMTA STEPHENSON Facility:[facility] Procedures Date Procedure Procedure Detail Performing Clinician Start: 08-08-2023 Follow-up visit Follow-up MAMTA STEPHENSON Start: 06-02-2022 End: 06-02-2022 PSA screening [facility] Provider Comment on above: Performed By: #### TSH, T7, EMILY WIGGINS C MP #### [facility] [address] [place] [address] Dr. Emely Adrian Start: 03-18-2022 Colonoscopy Patricio [facility] Start: 03-18-2022 Esophagogastroduodenoscopy Patricio [facility] Start: 10-17-2018 Colonoscopy Patricio [facility] Start: 09-11-2009 Colonoscopy Patricio NILL Amputation of finger, except thumb Patricio JUANL Arthroscopy of shoulder Meng george JUANL Implantation of radi oactive seed into prostate Patricio UNXL Open reduction of fr acture with internal fixation Patricio [facility] Comment on above: right leg Umbilical herniorrha phy using surgical sutures Patricio Lex Machina Plan of Treatment Date Care Activity Detail Author Start: 06-12-2028 Prostate specific antigen measurement Prostate Cancer Screening Discussion [facility] Start: 06-02-2027 PROSTATE CANCER SCREENING DISCUSSION PROSTATE CANCER SCREENING DISCUSSION [facility] Start: 06-02-2027 Prostate specific antigen measurement Prostate Cancer Screening Discussion [facility] Start: 06-12-2024 End: 09-11-2024 Prostate specific Ag [Mass/volume] in Serum or Plasma PSA/PROSTSPECAG DIAG Lab Routine Malignant neoplasm of prostate (HCC) Expected: 06/12/2024, Expires: 09/11/2024 [facility] Work Phone: Comment on above: Expected: 06/12/2024 , Expires: 09/11/2024 Start: 05-23-2023 End: 08-22-2023 Prostate specific Ag [Mass/volume] in Serum or Plasma PSA/PROSTSPECAG DIAG Lab Routine Malignant neoplasm of prostate (HCC) Expected: 05/23/2023, Expires: 08/22/2023 [facility] Work Phone: Comment on above: [...] Center Start: [address] COLONOGRAPHY [facility] Start: 2001 DIABETES SCREEN DIABETES SCREEN [facility] Start: 2001 Diabetes Screening Diabetes Screenin g [facility] Start: 2001 FECAL OCCULT BLOOD FECAL OCCULT BLOO D [facility] Start: 2001 Screening for malign ant neoplasm of colon [facility] Start: 2001 SIGMOIDOSCOPY SIGMOIDOSCOPY [facility] Start: 10-21-1991 Lipid panel [facility] Start: 10-21-1991 LIPID SCREEN LIPID SCREEN [facility] Start: 10-21-1975 Urine microalbumin profile [facility] Start: 1974 HEPATITIS C SCREENING HEPATITIS C [facility] Start: 1974 Hepatitis C screening Hepatitis C [facility] Start: 1974 HIV SCREENING HIV SCREENING [facility] Start: 1955 ABDOMINAL AORTIC ANEURYSM SCREENING ABDOMINAL AORTIC ANEURYSM SCREENING [facility] Start: 1955 Abdominal aortic aneurysm screening Abdominal Aortic Aneurysm Screening [facility] Immunizations Immunization Date Immunization Notes Care Provider Christian marte NEGATED: Highlighted row has not occurred!03-08-2022 influenza virus vaccine, unspecified formulation Patricio BEAUCHAMP [facility] [place] Payers Date Payer Category Payer Medicare DEVOTED MEDICARE [facility] [id number] 2023-Present [phone] [address] [place] [address] O [id number] 2023 Unknown [id number] 2022 Private Health Insurance [facility] CHOICE PLUS [id number] 2022-Present [phone] [address] [place] [address] O [id number] 2006 Unknown [facility] GENERIC [id number] 2006-Present [phone] [place] [address] [id number] 1959 Unknown [id number] 1959 Unknown [id number] 1955 Unknown [id number] 1955 Unknown [id number] .[id number] 1955 Unknown [id number] .[id number] 1955 Unknown [id number] .[id number] 1955 Unknown [id number] .[id number] 1955 Unknown [id number] .2.593 1955 Unknown [id number] .[id number] 1955 Unknown [id number] .[id number] 1955 Unknown [id number] .[id number] Social History Date Type Detail Facility Start: 06-24-2020 End: 03-08-2022 Tobacco smoking status Ex-smoker (finding) [facility] [place] Tobacco smoking status Never [facility] [place] Start: 06-24-2020 End: 06-23-2022 Sex Assigned At Male Eduin Kumar [facility] End: 06-10-1989 History of tobacco use Current smoker [facility] End: 06-10-1989 History of tobacco use Cigarette Smoker [facility] Start: 06-24-2020 End: 06-23-2022 Cigarettes smoked current (pack per day) - Reported 1.5 [facility] Start: 06-24-2020 Tobacco use and exposure Smokeless tobacco non-user [facility] Start: 06-24-2020 Alcohol intake Not [facility]ked [facility] Start: 1955 Sex Assigned At Not on file [facility] Clinical Notes 03-18-2022 to 08-08-2023 Telephone Encounter - Latisha Rojas LPN - 06/21/2023 2:40 PM EDTTelephone Encounter - Josefina Anderson RN - 05/23/2023 9:43 AM ESTG Isidoro Gonzáles MD - 06/23/2022 10:11 AM EDT Note Date & Type Note Facility 08-08-2023 Note Cardiovascular Medic [facility] SUBJECTIVE Chief Complaint Patient presents with Follow-up [...] cuts himself at work. 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 He denies any changes since last seen [...] deficit present. Ment (more content not included)... [facility] 06-21-2023 Miscellaneous Notes Melvina called to [...] Latisha Rojas RN documented in this encounter [facility] 05-23-2023 Miscellaneous Notes PT called in to schedule follow up for this year. He will also need PSA. Please sign pended order and we will fax to [facility]. Josefina Anderson, RN documented in this encounter [facility] 06-23-2022 Note HNO ID: [id number] Author: Quinton Gonzáles MD Service: ? Author [...] Time Spent: 6 minutes Quinton Gonzáles MD [facility] 06-23-2022 History of Presen t illness [...] Latisha Rojas LPN documented in this encounter [facility] 03-18-2022 Note OPERATIVE NOTE OPERATION [...] good condition. CC: Lv Heard M.D. [facility] Evaluation + Plan note No data available for this section [facility] [place] Evaluation note Diagnosis Malignant neoplasm of prostate (HCC)- Primary Malignant neoplasm of prostate [facility] Diagnosis Malignant neoplasm of prostate (HCC)- Primary Malignant neoplasm of prostate documented in this encounter [facility] note* Diagnosis Malignant neoplasm of prostate (HCC)- Primary Malignant neoplasm of prostate documented in this encounter [facility] Discharge instructions No data available for this section [facility] [place] Progress note No data available for this section [facility] Surgery [place] Summary Purpose Family History No Family History [...] CREATED AUTHOR 04/15/2021 [facility] DATE CREATED AUTHOR AUTHOR'S ORGANIZ ATION 08/08/2022 [facility] DATE CREATED AUTHOR AUTHOR'S ORGANIZ ATION 06/16/2023 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 [employer] [facility]. provides no warranty or guarantee of the accuracy or completeness of information in this document.
[2024-02-04] MEDS: TIZANIDINE HCL 4 MG TABLET PO ×3 (02:53→17:00)
[2024-02-04 06:02] LABS: Basophils Percent Auto 0.1 % (0.2-2.0); Eosinophils Percent Auto 0.2 % (0.9-7.0); Hematocrit 28.9 % (42.0-54.0); Hemoglobin 9.5 g/dL (14.0-18.0); Immature Granulocytes Abs Auto 0.04 10^3/uL (0.00-0.03); Immature Granulocytes Pct Auto 0.5 % (0.0-0.5); Lymphocytes Absolute Auto 1.1 10^3/uL (1.2-3.8); Lymphocytes Percent Auto 12.3 % (20.5-60.0); Mean Corpuscular HGB Conc 32.9 g/dL (29.9-35.2); Mean Corpuscular Hemoglobin 32.2 pg (25.9-34.0); Mean Platelet Volume 9.2 fL (9.5-13.5); Monocytes Absolute Auto 1.3 10^3/uL (0.3-0.8); Monocytes Percent Auto 14.6 % (1.7-12.0); Neutrophils Absolute Auto 6.3 10^3/uL (1.4-6.5); Neutrophils Percent Auto 72.3 % (43.0-75.0); Platelet Count 301 10^3/uL (150-450); Red Blood Count 2.95 10^6/uL (4.70-6.10); Red Cell Distribution Width 14.1 % (11.0-15.0); White Blood Count 8.7 10^3/uL (4.0-11.0)
[2024-02-04 06:13] LABS: Anion Gap 14.8; BUN Creatinine Ratio 16.7; Calcium 8.5 mg/dL (8.5-10.1); Carbon Dioxide 24.3 mmol/L (21.0-32.0); Chloride 102 mmol/L (98-107); Estimated GFR (African America >60 (>=60 mL/min/1.73m^2); Estimated GFR (Non-African Ame 57 (>=60 mL/min/1.73m^2); Glucose 116 mg/dL (74-106); Magnesium 2.5 mg/dL (1.8-2.4); Potassium 4.1 mmol/L (3.5-5.1); Sodium 137 mmol/L (136-145)
[2024-02-04] MEDS: FUROSEMIDE 20 MG TABLET PO (08:28)
[2024-02-04] MEDS: FERROUS SULFATE 325 MG TABLET PO (08:28)
[2024-02-04] MEDS: MULTIVITAMIN TABLET 1 TAB PO (08:28)
[2024-02-04] MEDS: APIXABAN 5 MG TABLET 2.5 MG PO (08:29)
[2024-02-04] MEDS: ACETAMINOPHEN 500 MG TABLET 1000 MG PO ×2 (08:29→15:15)
[2024-02-04] MEDS: METOPROLOL TARTRATE 25 MG TABLET 75 MG PO (08:29)
[2024-02-04] MEDS: MELOXICAM 7.5 MG TABLET PO (08:29)
[2024-02-04] MEDS: MORPHINE SULFATE 2 MG/ML SYRINGE IV (08:29)
[2024-02-04] MEDS: MECLIZINE HCL 12.5 MG TABLET 25 MG PO (08:29)
--- NOTE | 2024-02-04 08:54 | PM.HP ---
HPI H&P: HPI History of Present Illness Chief complaint: Back Pain Narrative: Patient is a 68 y.o white male with past medical history of Afib (on Eliquis), Iron deficiency anemia, history of prostate cancer, hypertension, CAD, and hyperlipidemia. Patient presented to the ER last night with LLQ abdominal pain that radiated into his left lower back. Pain with positional changes. No loss of bowel or bladder. No back trauma. No radicular symptoms such as leg pain or foot drop. It appears he was seen in the ER a few weeks ago with with rectal bleeding and was cut back on his Eliquis and also treated for possible diverticulitis. Patient denies fevers or chills or urinary symptoms. Says the pain is located more on the right lower back now, he was watching his grand baby and as he was bending alot to change diapers he noticed the pain start. ER findings: CT showed hx prostate cancer with seeds, and duodenal diverticulum with no acute changes. No Renal stones noted no evidence of diverticulitis. Lumbar CT showed diffuse lumbar spondylosis. Urinalysis was negative, stool occult was negative. WBCs 8.7, Hb 9.5, Cr 1.26. Patient was given Pain medication but continued to have pain so was admitted for pain control. Symptoms improved with the Morphine and Solumedrol Opioid HPI Opioid Management Most Recent Pain and Opioid Data: Last Pain Scale 2 02/04/24 10:02 02/04/24 Last Pain Assessment 02/04/24 13:18 Last ED Pain Assessment 02/03/24 22:59 Last MAR Pain Assessment 02/04/24 09:57 Last ORT Total Score 0 02/04/24 02:34 02/04/24 Last ORT Risk Category Low Risk 02/04/24 02:34 02/04/24 Review of Systems ROS Narrative ROS: a complete review of systems were reviewed with patient and are positive as below or listed in History of Chief Complaint. General: no fever, chills, night sweats Head: no headache, trauma, visual changes, nausea or vomiting Skin: no reported rashes, itching or sores Eyes: no blurriness of vision Ears: no reported hearing loss, vertigo, earache, or tinnitus Throat: no sore throat, hoarseness, swelling of neck, or tongue pain Heart: no chest pain Lungs: no shortness of breath or cough GI: no diarrhea or vomiting/nausea, abdominal pain Urinary: no urinary urgency, frequency or pain Neuro: no numbness or tingling HEM: no bruising, at time bright red blood per rectum ENDO: no thyroid problems Psych: no anxiety or depression PFSH PFSH Medical History (Updated 02/04/24 @ 09:01 by Sheeba Diaz DO) Prostate cancer ?C61 - Malignant neoplasm of prostate (ICD-10) Herniated disc Hypertension ?I10 - Essential (primary) hypertension (ICD-10) Afib ?I48.91 - Unspecified atrial fibrillation (ICD-10) Family History Other Family history of diabetes mellitus Family history of hypertension Family history of stroke Social History Within the past year, how often did you have a drink containing alcohol: monthly or less Within the past year, how many standard drinks containing alcohol did you have on a typical day: 1 or 2 Total score: 0 Score interpretation: A score less than 4 is consistent with normal alcohol consumption. Smoking status: Former smoker Non-prescribed substance use: denies use Previous occupational history: retired Highest level of school completed/degree received: Associate degree: occupational, technical, vocational program Are you now , , , , never or living with a partner: In a typical week, how many times do you talk on the telephone with family, friends, or neighbors: 3 or more times per week How often do you get together with friends or relatives: 3 or more times per week Little interest or pleasure in doing things: not at all Feeling down, depressed, or hopeless: not at all Feel stressed/tense/nervous/anxious/difficulty sleeping: not at all Do you think of yourself as: straight/heterosexual Gender Identity: male Meds Home Medications and Allergies Home Medications ?Medication ?Instructions ?Recorded ?Confirmed ?Type apixaban 5 mg tablet (Eliquis) 2.5 mg PO DAILY 12/06/23 02/03/24 History ferrous sulfate 325 mg (65 mg 325 mg PO BID 12/06/23 02/03/24 History iron) tablet (FeroSul) furosemide 20 mg tablet 20 mg PO DAILY 12/06/23 02/03/24 History metoprolol tartrate 75 mg tablet 75 mg PO BID 12/06/23 02/03/24 History rosuvastatin 20 mg tablet 20 mg PO DAILY 12/06/23 02/03/24 History meclizine 25 mg tablet 25 mg PO DAILY 02/03/24 02/03/24 History us-dbv-gnsrx-F3-aahirfx-leepmt 1 tab PO DAILY 02/03/24 02/03/24 History Allergies Allergy/AdvReac Type Severity Reaction Status Date / Time No Known Drug Allergies Allergy Verified 02/03/24 20:43 Exam Narrative Exam Narrative: General: Patient is alert, and oriented to person, place and time with normal affect, proper hygiene, sitting up in the bed eating breakfast and appears in no acute distress Skin: no visible rashes, or ulcers Head: atraumatic, acephalic Eyes: PERRLA, no nystagmus present, conjunctiva clear, no scleral icterus Ears: normal gross auditory acuity Heart: Normal rate and rhythm, no murmurs/rubs/gallops Lungs: no audible wheezes, crackles and normal breath sounds all lung topete Abdomen: Normal audible bowel sounds, no distension, No palpable masses, no organomegaly, no rebound/guarding/ or rigidity Musculoskeletal: no swelling bilateral lower extremities, 5/5 muscle strength in bilateral lower ext; pain with palpation of the right paraspinals midback, no CVA tenderness, palpapable muscle bulge with tenderness elicited with palpation Neuro: CN II-X grossly intact, normal sensation upper and lower extremities Constitutional Vital Signs, click to edit/add: Last Vital Signs Temp 100.1 F 02/04/24 08:00 Pulse 81 02/04/24 08:00 Resp 16 02/04/24 08:00 BP 100/53 02/04/24 08:00 Pulse Ox 96 02/04/24 08:42 O2 Del Method Room Air 02/04/24 08:00 Results Labs Labs: Short CBC 02/03/24 02/04/24 Range/Units 20:55 05:43 WBC 9.9 8.7 (4.0-11.0) 10^3/uL Hgb 10.6 L 9.5 L (14.0-18.0) g/dL Hct 32.5 L 28.9 L (42.0-54.0) % Plt Count 391 301 (150-450) 10^3/uL BMP 02/03/24 02/04/24 20:55 05:43 Sodium 138 137 Potassium 4.2 4.1 Chloride 101 102 Carbon Dioxide 23.7 24.3 BUN 23.0 H 21.0 H Creatinine 1.48 H 1.26 Glucose 146 H 116 H Calcium 9.4 8.5 Liver Function 02/03/24 Range/Units 20:55 Total Bilirubin 0.7 (0.2-1.0) mg/dL AST 17 (15-37) U/L ALT 17 (16-63) U/L Alkaline Phosphatase 56 (46-116) U/L Albumin 3.4 (3.4-5.0) g/dL Urine 02/03/24 Range/Units 23:07 Urine Color Lt. yellow (YELLOW) Urine Clarity Clear (CLEAR) Urine pH 6.0 (5.0-9.0) Ur Specific [place] 1.010 (1.005-1.025) Urine Protein Negative (NEG/TRACE) mg/dL Urine Glucose (UA) Negative (NEGATIVE) mg/dL Assessment and Plan Assessment and Plan (1) Intractable low back pain: Assessment and Plan: Pain improved overnight. still stop NSAIDS, start Solumedrol 125mg x 1, Will discharge patient on prednisone burst. Discussed findings of lumbar CT. Would benefit from outpatient work up, Physical therapy, MRI and referral to Ortho spine if indicated. He may also continue Lidocaine patch. Return to the ER with any worsening pain. (2) Lumbar spondylolysis: Assessment and Plan: see #1 (3) Hypertension: Assessment and Plan: continue home meds Qualifiers: Hypertension type: primary hypertension Qualified Code(s): I10 - Essential (primary) hypertension (4) Afib: Assessment and Plan: continue home meds Qualifiers: Atrial fibrillation type: paroxysmal Qualified Code(s): I48.0 - Paroxysmal atrial fibrillation (5) Prostate cancer: Plan Patient is a full code continue Eliquis for pain control Patient is in observation status and is not expected to cross 2 midnights for his hospital care. Will discharge this evening.
[2024-02-04] MEDS: METHYLPREDNISOLONE SOD SUCC PF 125 MG/2 ML VIAL IVP (09:57)
[2024-02-04] MEDS: LIDOCAINE 5% PATCH 1 PATCH TOPICAL (15:15)
--- NOTE | 2024-02-04 15:58 | P.DS_ITS ---
DS: Providers Provider Date of admission: 02/04/24 02:13 Primary care physician: Guillermo Heard MD Admitting clinician: Sheeba Diaz Attending physician on discharge: Sheeba Diaz DS: Diagnosis Discharge Diagnosis (1) Intractable low back pain: (2) Lumbar spondylolysis: (3) Hypertension: Qualifiers: Hypertension type: primary hypertension Qualified Code(s): I10 - Essential (primary) hypertension (4) Afib: Qualifiers: Atrial fibrillation type: paroxysmal Qualified Code(s): I48.0 - Paroxysmal atrial fibrillation (5) Prostate cancer: DS: Summary Hospital Course Hospital Course: Patient will be discharged home with prednisone burst 20mg BID x 7 days, lidode rm patch and flexeril. He was instructed to follow up with Dr. Heard for further outpatient work up of his lumbar disc disease. Return to the ER with any worsening signs or symptoms. Status at Discharge Functional status at discharge: independent ambulation Overall status at discharge: patient is progressing back to baseline Time Spent with Patient Time attestation: Total time spent providing and/or coordinating discharge services: Time spent: greater than 30 minutes Exam Narrative Exam Narrative: no changes from H&P exam dated 02/04/24 Constitutional Vital Signs, click to edit/add: Last Vital Signs Temp 98.3 F 02/04/24 12:00 Pulse 100 H 02/04/24 12:00 Resp 16 02/04/24 12:00 BP 106/65 02/04/24 12:00 Pulse Ox 91 L 02/04/24 12:10 O2 Del Method Room Air 02/04/24 12:04 DS: Data Data Completed and Pending Labs on day of discharge: Labs from last 24 hours 02/04/24 02/03/24 02/03/24 05:43 23:07 21:14 WBC 8.7 RBC 2.95 L Hgb 9.5 L Hct 28.9 L MCV 98.0 H MCH 32.2 MCHC 32.9 RDW 14.1 Plt Count 301 MPV 9.2 L Neut % (Auto) 72.3 Lymph % (Auto) 12.3 L [place] % (Auto) 14.6 H Eos % (Auto) 0.2 L Baso % (Auto) 0.1 L Neut # (Auto) 6.3 Lymph # (Auto) 1.1 L [place] # (Auto) 1.3 H Eos # (Auto) 0.0 Baso # (Auto) 0.0 Abs Immat Gran (auto) 0.04 H Imm/Tot Granulo (auto) 0.5 Sodium 137 Potassium 4.1 Chloride 102 Carbon Dioxide 24.3 Anion Gap 14.8 BUN 21.0 H Creatinine 1.26 Est GFR ( Amer) >60 Est GFR (Non-Af Amer) 57 L BUN/Creatinine Ratio 16.7 Glucose 116 H Lactate Calcium 8.5 Magnesium 2.5 H Total Bilirubin AST ALT Alkaline Phosphatase Total Protein Albumin Globulin Albumin/Globulin Ratio Urine Color Lt. yellow Urine Clarity Clear Urine pH 6.0 Ur Specific [place] 1.010 Urine Protein Negative Urine Glucose (UA) Negative Urine Ketones Negative Urine Occult Blood Trace-i Urine Nitrite Negative Urine Bilirubin Negative Urine Urobilinogen 0.2 Ur Leukocyte Esterase Negative Urine RBC 0-2 Urine WBC None seen Ur Squamous Epith Cells None seen Urine Crystals None seen Urine Bacteria Trace A Urine Casts None seen Urine Mucus None seen Ur Culture Indicated? No Stool Occult Blood Negative 02/03/24 20:55 WBC 9.9 RBC 3.32 L Hgb 10.6 L Hct 32.5 L MCV 97.9 H MCH 31.9 MCHC 32.6 RDW 14.1 Plt Count 391 MPV 9.3 L Neut % (Auto) 65.7 Lymph % (Auto) 18.5 L [place] % (Auto) 14.5 H Eos % (Auto) 0.8 L Baso % (Auto) 0.1 L Neut # (Auto) 6.5 Lymph # (Auto) 1.8 [place] # (Auto) 1.4 H Eos # (Auto) 0.1 Baso # (Auto) 0.0 Abs Immat Gran (auto) 0.04 H Imm/Tot Granulo (auto) 0.4 Sodium 138 Potassium 4.2 Chloride 101 Carbon Dioxide 23.7 Anion Gap 17.5 BUN 23.0 H Creatinine 1.48 H Est GFR ( Amer) 58 L Est GFR (Non-Af Amer) 47 L BUN/Creatinine Ratio 15.5 Glucose 146 H Lactate 1.1 Calcium 9.4 Magnesium Total Bilirubin 0.7 AST 17 ALT 17 Alkaline Phosphatase 56 Total Protein 8.1 Albumin 3.4 Globulin 4.7 Albumin/Globulin Ratio 0.7 Urine Color Urine Clarity Urine pH Ur Specific [place] Urine Protein Urine Glucose (UA) Urine Ketones Urine Occult Blood Urine Nitrite Urine Bilirubin Urine Urobilinogen Ur Leukocyte Esterase Urine RBC Urine WBC Ur Squamous Epith Cells Urine Crystals Urine Bacteria Urine Casts Urine Mucus Ur Culture Indicated? Stool Occult Blood Discharge Plan Discharge Disposition: Home, Self-Care Discharge Medications: New lidocaine 5 % Adhesive Patch,Medicated 1 patch topical DAILY 10 Days Qty: 10 0RF prednisone 20 mg tablet 20 mg PO BID 7 Days Qty: 14 0RF cyclobenzaprine 5 mg tablet 5 mg PO Q8H PRN (Reason: muscle spasm) Qty: 15 0RF Continued meclizine 25 mg tablet 25 mg PO DAILY [id number] [Centrum Silver Men] 1 tab PO DAILY Eliquis 5 mg tablet 2.5 mg PO DAILY ferrous sulfate [FeroSul] 325 mg (65 mg iron) tablet 325 mg PO BID furosemide 20 mg tablet 20 mg PO DAILY metoprolol tartrate 75 mg tablet 75 mg PO BID rosuvastatin 20 mg tablet 20 mg PO DAILY Activity: increase activity as tolerated Diet: advance to your usual diet Print Language: Micronesian Patient Instructions: Acute Low Back Pain (ED) Forms: Portal Instructions Follow Up Appointments: Please Call Dr. Heard's office tomorrow for follow up appointment 3-5 days
--- NOTE | 2024-02-06 13:59 | CM.DCFOLLOWU ---
Person spoke with:patient How are you feeling?well How is your pain?none Did you understand your discharge instructions?yes Do you have any questions about your discharge instructions?no Were you given any prescriptions at discharge?yes Were you able to get your prescriptions filled?yes Do you understand how to take your medications as ordered? yes Do you have any questions about your follow up appointment and do you plan to keep your follow up appointment? no questions, called and scheduled follow up with Dr. Heard Is there anything else that you would like to discuss?no Questions/Comments/Concerns/Other:none
== END 2024-02-04 17:32 | disposition home or self-care (01) ==
LOC: ER 02-04 01:52 → MS 02-04 02:16
PROVIDERS: Registered Nurse; Admitting Provider Family Medicine; Emergency Provider Internal Medicine; PCP Family Medicine; Visit Provider Family Medicine
DX: M47.816 Spondylosis without myelopathy or radiculopathy, lumbar region (principal); M54.50 Low back pain, unspecified; I10 Essential (primary) hypertension; I48.0 Paroxysmal atrial fibrillation; I25.10 Atherosclerotic heart disease of native coronary artery without angina pectoris; E78.5 Hyperlipidemia, unspecified; K62.5 Hemorrhage of anus and rectum; Z79.899 Other long term (current) drug therapy; Z79.01 Long term (current) use of anticoagulants; Z85.46 Personal history of malignant neoplasm of prostate; Z87.891 Personal history of nicotine dependence
CPT/HCPCS: 36415; 72132; 74177; 80048; 80053; 81001; 83605; 83735; 85025; 94761; 96365; 96375; 96376; 99285; G0328; G0378; J1171; J2060; J2270; J2360; J2919; J3475; Q9967

== ENCOUNTER 2024-04-21 08:57 | Emergency (ER) | payer MEDICARE, SELFPAY ==
[2024-04-21] VITALS (15 sets, daily range): BP systolic 116–135; BP diastolic 73–85; PULSE 71–87; TEMP 36.8; O2SAT 94–98; BMI 33.5
--- NOTE | 2024-04-21 09:19 | XR_ITS ---
The [address] [address] Patient Name: PABLO ROBERTS MRN: [id number] date: 1955 Sex: M Assigned Patient Location: ED.MAIN Current Patient Location: ED.MAIN Accession/Order Number: [id number] Exam Date: 04/21/2024 09:58 Report Date: 04/21/2024 10:56 At the request of: MONAE HENRY Procedure: XR chest 1V Single view chest x-ray, 04/21/2024. HISTORY: Shortness of breath. COMPARISON: Chest x-ray, 03/09/2022. FINDINGS: Single view of the chest was obtained. Heart size appears normal. No pleural effusion. No pneumothorax. No pulmonary edema. No evidence of pneumonia. XR/XR chest 1V IMPRESSION: Lungs are clear. No evidence of pneumonia. No pulmonary edema. Electronically authenticated by: CARLEY WHITE Date: 04/21/2024 10:56
--- NOTE | 2024-04-21 09:19 | ECG_ITS ---
[facility] Test Date: 2024-04-21 Pat Name: PABLO ROBERTS Department: Room: - Gender: Male [employer]: : 1955 Requested By: LV CHANCE Order Number: [id number] Reading MD: LV CHANCE Measurements Intervals [place] Rate: 82 P: 22 [place]: 138 QRS: 26 QRSD: 80 T: 25 QT: 374 QTc: 412 Interpretive Statements 1100 Sinus rhythm 1574 with frequent ventricular premature complexes 4068 Nonspecific [place] abnormality 9140 abnormal rhythm ECG Compared to ECG 12/06/2023 12:20:21 Ventricular premature complex(es) now present Sinus bradycardia no longer present T-wave abnormality no longer present Electronically Signed On 04-22-2024 8:10:19 EST by LV CHANCE
--- NOTE | 2024-04-21 09:20 | ED.GENADUL1 ---
HPI HPI - General Adult General Chief complaint: Shortness of Breath/Dyspnea Stated complaint: SOB Time Seen by Provider: 04/21/24 09:07 Source: patient and family Mode of arrival: Wheelchair Limitations: no limitations History of Present Illness HPI narrative: 68-year-old male presents to the emergency department for a chief complaint of cough and shortness of breath. He has been feeling this way for nearly 2 weeks and has not been evaluated by a medical professional. No known ill contacts. No vomiting or diarrhea. He has not had a known fever. Related Data Home Medications ?Medication ?Instructions ?Recorded ?Confirmed apixaban 5 mg tablet (Eliquis) 2.5 mg PO DAILY 12/06/23 04/21/24 ferrous sulfate 325 mg (65 mg 325 mg PO BID 12/06/23 04/21/24 iron) tablet (FeroSul) furosemide 20 mg tablet 20 mg PO DAILY 12/06/23 04/21/24 metoprolol tartrate 75 mg tablet 75 mg PO BID 12/06/23 04/21/24 rosuvastatin 20 mg tablet 20 mg PO BEDTIME 12/06/23 04/21/24 meclizine 25 mg tablet 25 mg PO BID 02/03/24 04/21/24 [id number]-rvhyim 1 tab PO DAILY 02/03/24 04/21/24 Allergies Allergy/AdvReac Type Severity Reaction Status Date / Time No Known Drug Allergies Allergy Verified 02/03/24 20:43 Opioid HPI Opioid Management Most Recent Opioid Data: Last Pain Scale 6 04/21/24 09:44 04/21/24 Last ORT Total Score 0 02/04/24 02:34 02/04/24 Last ORT Risk Category Low Risk 02/04/24 02:34 02/04/24 Review of Systems ROS Narrative A ten point review of systems is negative except as noted above. [facility] Medical History (Updated 04/21/24 @ 10:48 by Dereck Becerra MD) Prostate cancer ?C61 - Malignant neoplasm of prostate (ICD-10) Herniated disc Hypertension ?I10 - Essential (primary) hypertension (ICD-10) Afib ?I48.91 - Unspecified atrial fibrillation (ICD-10) Family History Other Family history of diabetes mellitus Family history of hypertension Family history of stroke Social History Within the past year, how often did you have a drink containing alcohol: monthly or less Within the past year, how many standard drinks containing alcohol did you have on a typical day: 1 or 2 Total score: 0 Score interpretation: A score less than 4 is consistent with normal alcohol consumption. Smoking status: Former smoker Non-prescribed substance use: denies use Previous occupational history: retired Highest level of school completed/degree received: Associate degree: occupational, technical, vocational program Are you now , , , , never or living with a partner: In a typical week, how many times do you talk on the telephone with family, friends, or neighbors: 3 or more times per week How often do you get together with friends or relatives: 3 or more times per week Little interest or pleasure in doing things: not at all Feeling down, depressed, or hopeless: not at all Feel stressed/tense/nervous/anxious/difficulty sleeping: not at all Do you think of yourself as: straight/heterosexual Gender Identity: male Exam Narrative Exam Narrative: Nurses note and vital signs reviewed and patient is not hypoxic. General: The patient appears in no apparent respiratory distress. Skin: Warm, dry, no pallor noted. There is no rash noted. Head: Normocephalic, atraumatic Eye: Normal conjunctiva, no drainage Ears, Nose, Mouth, and Throat: oral mucosa is moist. Nares patent. Cardiovascular: Regular Rate and Rhythm Respiratory: Bilateral rhonchi Back: non-tender GI: Soft and nontender Musculoskeletal: The patient has no evidence of calf tenderness, symmetrical pulses noted bilaterally Neurological: A&O, normal speech Psychiatric: Cooperative Constitutional Vital Signs, click to edit/add: Last Vital Signs Temp 98.3 F 04/21/24 09:12 Pulse 76 04/21/24 09:34 Resp 18 04/21/24 09:34 BP 116/73 04/21/24 09:12 Pulse Ox 97 04/21/24 09:33 O2 Del Method Room Air 04/21/24 09:33 Course Vital Signs Vital signs: Vital Signs Temperature 98.3 F 04/21/24 09:12 Pulse Rate 71 04/21/24 09:12 Respiratory Rate 20 04/21/24 09:12 Blood Pressure 116/73 04/21/24 09:12 Pulse Oximetry 96 04/21/24 09:12 Oxygen Delivery Method Room Air 04/21/24 09:12 Temperature 98.3 F 04/21/24 09:12 Pulse Rate 76 04/21/24 09:34 Respiratory Rate 18 04/21/24 09:34 Blood Pressure 116/73 04/21/24 09:12 Pulse Oximetry 97 04/21/24 09:33 Oxygen Delivery Method Room Air 04/21/24 09:33 Medical Decision Making MDM Narrative Medical decision making narrative: Chest x-ray shows no infiltrate and COVID test is negative. Influenza test is positive. He did not have an influenza vaccination this year. He is outside the treatment window for Tamiflu. He is able to be discharged home. He is not hypoxic or tachycardic or tachypneic. Treatment diagnosis and follow-up were discussed with the patient and his family. Differential Diagnosis Differential Diagnosis: Pneumonia, COVID, influenza, viral illness Lab Data Lab results reviewed: Yes I reviewed the patient's lab results Labs: Lab Results 04/21/24 04/21/24 Range/Units 09:08 09:33 WBC 5.6 (4.0-11.0) 10^3/uL RBC 3.09 L (4.70-6.10) 10^6/uL Hgb 10.0 L (14.0-18.0) g/dL Hct 30.3 L (42.0-54.0) % MCV 98.1 H (80.0-94.0) fL MCH 32.4 (25.9-34.0) pg MCHC 33.0 (29.9-35.2) g/dL RDW 14.5 (11.0-15.0) % Plt Count 302 (150-450) 10^3/uL MPV 9.1 L (9.5-13.5) fL Neut % (Auto) 47.9 (43.0-75.0) % Lymph % (Auto) 28.7 (20.5-60.0) % [place] % (Auto) 20.9 H (1.7-12.0) % Eos % (Auto) 2.1 (0.9-7.0) % Baso % (Auto) 0.0 L (0.2-2.0) % Neut # (Auto) 2.7 (1.4-6.5) 10^3/uL Lymph # (Auto) 1.6 (1.2-3.8) 10^3/uL [place] # (Auto) 1.2 H (0.3-0.8) 10^3/uL Eos # (Auto) 0.1 (0.0-0.7) 10^3/uL Baso # (Auto) 0.0 (0.0-0.1) 10^3/uL Abs Immat Gran (auto) 0.02 (0.00-0.03) 10^3/uL Imm/Tot Granulo (auto) 0.4 (0.0-0.5) % Sodium 141 (136-145) mmol/L Potassium 3.8 (3.5-5.1) mmol/L Chloride 104 (98-107) mmol/L Carbon Dioxide 24.6 (21.0-32.0) mmol/L Anion Gap 16.2 BUN 22.0 H (7.0-18.0) mg/dL Creatinine 1.39 H (0.70-1.30) mg/dL Est GFR ( Amer) >60 (>=60 mL/min/1.73m^2) Est GFR (Non-Af Amer) 51 L (>=60 mL/min/1.73m^2) BUN/Creatinine Ratio 15.8 Glucose 100 (74-106) mg/dL Calcium 8.8 (8.5-10.1) mg/dL Influenza Type A Ag Positive A Influenza Type B Ag Negative SARS-CoV-2 Ag (CV2AG) Negative (NEGATIVE) Imaging Data Chest x-ray: Radiologist's impression: ITS Impressions Chest X-Ray 04/21/24 09:19 IMPRESSION: Lungs are clear. No evidence of pneumonia. No pulmonary edema. Electronically authenticated by: CARLEY WHITE Date: 04/21/2024 10:34 ECG Data Attestation: I personally reviewed and interpreted this ECG as follows: (EKG on my interpretation shows sinus rhythm with a rate of 82 and PVCs) Discharge Plan Discharge Chief Complaint: Shortness of Breath/Dyspnea Clinical Impression: Influenza Patient Disposition: Home, Self-Care Time of Disposition Decision: 10:47 Condition: Good Mode of Transportation: Private Vehicle Prescriptions / Home Meds: No Action meclizine 25 mg tablet 25 mg PO BID [id number]-[id number] [Centrum Silver Men] 1 tab PO DAILY Eliquis 5 mg tablet 2.5 mg PO DAILY ferrous sulfate [FeroSul] 325 mg (65 mg iron) tablet 325 mg PO BID furosemide 20 mg tablet 20 mg PO DAILY metoprolol tartrate 75 mg tablet 75 mg PO BID rosuvastatin 20 mg tablet 20 mg PO BEDTIME Print Language: Macedonian Instructions: Influenza (ED), Flu Shot (Vaccine) for Adults (ED) Referrals: Guillermo Heard MD [Primary Care Provider] - 1 week
--- OUTSIDE RECORDS SUMMARY | 2024-04-21 09:28 | XMS_ITS | CCD ---
Author Organization [facility]iniSyak Care Team Providers Care Supervisor [employer] Name Role Phone MAMTA STEPHENSON Attending Unavailable SELF, REFERRED Primary Care Unavailable SELF, REFERRED Referring Unavailable MAMTA STEPHENSON Admitting Unavailable Lv Heard Primary Care Physician Lv Heard MD Primary Care Provider [phone] ., [address] CURRY Admitting Unavailable [...] QID, # 120 tab(s), Refills(s) 3, Pharmacy: [facility] #[id number], 177.8, cm, 03/08/22 15:41:00 EST, Height/Length Dosing, [...] 06-10-2014 06-10-2014 Episodic Other aftercare (1 source) 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 [facility] 36 Yes, recommend roni ng Eliquis until seen by GI and clearance from them that he can resume. We can ask Dr. Heard to comment if he recommends patient for Watchman and to note this in his office note. Thanks [facility] 36 Dr. Heard's office maddi led asking for recommendations for Eliquis hold s/p significant red blood in stools. He was seen in [facility] ED on 12/05. I have uploaded records into social media assistant for your review. There's no discharge summary or H&P. Just an ED report. Dr. Heard's office said Dr. Heard has him holding Eliquis for now. Please advise. Thanks. [facility] Office Visiton 08-08-2023 Follow-up visit [id number] Hanna Beckman 1955 M Date Provider Department Center 08/08/2023 [id number], MAMTA BH CARD [facility] Family History Problem Relation Age of Onset Stroke Mother Family Status - Relation Status Age at Mother Level of Service:64770 ID OFFICE/OUTPATIENT ESTABLISHED MOD [facility] 30 MIN Reason for Visit and Comments: Follow-up [762845] - 1 year Normal [facility] Jason 06-21-2023 CNPN Telephone (RADTSA) PABLO BECKMAN ([id number]) 1955 M Date Time Provider Department 06/21/23 [...] (HCC) [C61] Order(s):PSA/PROSTSPECAG DIAG [SQPSA] Order #: [id number] FUTURE Prescriptions as of 06/22/2023 - valACYclovir [...] Status:Closed by Quinton GONZÁLES on 06/21/23 Normal [facility] Lab Reportson 06-15-2023 Lab Reports [id number] Normal [facility] Physician Referralon 024 Physician Referral [id number] [facility] CNPNon 05-23-2023 CNPN Telephone (RADTSA) PABLO BECKMAN ([id number]) 1955 Date Time Provider Department 05/23/23 Quinton GONZÁLES RADTSA During your visit today, we recorded the following information about you: Josefina Anderson RN 05/23/2023 9:44 AM Signed PT called in to schedule follow up for this year. He will also need PSA. Please sign pended order and we will fax to [facility]. Josefina Anderson RN Allergies As of Date: 05/23/2023 (No Known Allergies) Date Reviewed: 06/24/2020 Reviewed by: Felecia Benites - Fully Assessed Reason for Visit: Future Appointment [256] Primary Visit Diagnosis:Malignant neoplasm of prostate (HCC) [C61] Order(s):PSA/PROSTSPECAG DIAG [SQPSA] Order #: [id number] FUTURE Prescriptions as of 05/23/2023 - valACYclovir [...] Status:Closed by Quinton GONZÁLES on 05/23/23 Normal [facility] SARS-CoV-2 (COVID-19) RNA ISIDRO+probe Ql (Unsp spec) Not detected Normal NOT DETECTED [facility] Comment on above: Result Comment: This test is not yet approved or cleared by the [place] FDA. When there are no FDA-approved or cleared tests available, and other criteria are met, FDA can make tests available under an emergency access mechanism called an Emergency Use Authorization (EUA). The EUA for this test is supported by the [place] [place] of Health and Human Service's (HHS's) declaration [...] T BASIM, Royer, FELICIANO, EMILY, CMP #### [facility] [address], [place] [address] Dr. Emely Adrian CBC AUTO DIFFon 03-09-2022 BASO # 0.0 103/ul Normal 0.0-0.1 [facility] Comment on above: Performed By: #### T SH, T7, LIPA, EMILY, CMP #### [facility] [address] [place] [address] Dr. Emely Adrian Basophils/100 WBC (Bld) 0.1 % Critically low 0.2-2.0 [facility] Comment on above: Performed By: #### T SH, T7, LIPA, EMILY, CMP #### [facility] [address] [place] [address] Dr. Emely Adrian EO # 0.2 103/ul Normal 0.0-0.7 [facility] Comment on above: Performed By: #### T SH, T7, LIPA, EMILY, CMP #### [facility] [address] [place] [address] Dr. Emely Adrian Eosinophils/100 WBC (Bld) 3.2 % Normal 0.9-7.0 [facility] Comment on above: Performed By: #### T SH, T7, LIPA, EMILY, CMP #### [facility] [address] [place] [address] Dr. Emely Adrian Erythrocyte distribution width (RBC) [Ratio] 15.8 % Critically high 11.0-15.0 [facility] Comment on above: Performed By: #### T SH, T7, LIPA, EMILY, CMP #### [facility] [address] [place] [address] Dr. Emely Adrian Hematocrit (Bld) [Volume fraction] 26.6 % Critically low 42.0-54.0 [facility] Comment on above: Performed By: #### T SH, T7, LIPA, EMILY, CMP #### [facility] [address] [place] [address] Dr. Emely Adrian Hemoglobin (Bld) [Mass/Vol] 9.0 g/dL Critically low 14.0-18.0 [facility] Comment on above: Performed By: #### T SH, T7, LIPA, EMILY, CMP #### [facility] [address] [place] [address] Dr. Emely Adrian IG # 0.05 10e3/ul Critically high 0.00-0.03 [facility] Comment on above: Performed By: #### T SH, T7, LIPA, EMILY, CMP #### [facility] [address] [place] [address] Dr. Emely Adrian IG % 0.7 % Critically high 0.0-0.5 [facility] Comment on above: Performed By: #### T SH, T7, LIPA, EMILY, CMP #### [facility] [address] [place] [address] Dr. Emely Adrian LYMPH # 1.8 103/ul Normal 1.2-3.8 [facility] Comment on above: Performed By: #### T SH, T7, LIPA, EMILY, CMP #### [facility] [address] [place] [address] Dr. Emely Adrian Lymphocytes/100 WBC (Bld) 24.2 % Normal 20.5-60.0 [facility] Comment on above: Performed By: #### T SH, T7, LIPA, EMILY, CMP #### [facility] [address] [place] [address] Dr. Emely Adrian MANUAL DIFF REQ NO Normal [facility] Comment on above: Performed By: #### T SH, T7, LIPA, EMILY, CMP #### [facility] [address] [place] [address] Dr. Emely Adrian MCH (RBC) [Entitic mass] 32.7 pg Normal 25.9-34.0 [facility] Comment on above: Performed By: #### T SH, T7, LIPA, EMILY, CMP #### [facility] [address] [place] [address] Dr. Emely Adrian MCHC (RBC) [Mass/Vol] 33.8 g/dL Normal 29.9-35.2 [facility] Comment on above: Performed By: #### T SH, T7, LIPA, EMILY, CMP #### [facility] [address] [place] [address] Dr. Emely Adrian MCV (RBC) [Entitic vol] 96.7 fL Critically high 80.0-94.0 [facility] Comment on above: Performed By: #### T SH, T7, LIPA, EMILY, CMP #### [facility] [address] [place] [address] Dr. Emely Adrian MONO # 1.3 103/ul Critically high 0.3-0.8 [facility] Comment on above: Performed By: #### T SH, T7, LIPA, EMILY, CMP #### [facility] [address] [place] [address] Dr. Emely Adrian Monocytes/100 WBC (Bld) 18.0 % Critically high 1.7-12.0 [facility] Comment on above: Performed By: #### T SH, T7, LIPA, EMILY, CMP #### [facility] [address] [place] [address] Dr. Emely Adrian NEUT # 4.0 103/ul Normal 1.4-6.5 [facility] Comment on above: Performed By: #### T SH, T7, LIPA, EMILY, CMP #### [facility] [address] [place] [address] Dr. Emely Adrian Neutrophils/100 WBC (Bld) 53.8 % Normal 43.0-75.0 [facility] Comment on above: Performed By: #### T SH, T7, LIPA, EMILY, CMP #### [facility] [address] [place] [address] Dr. Emely Adrian Platelet mean volume (Bld) [Entitic vol] 8.7 fL Critically low 9.5-13.5 [facility] Comment on above: Performed By: #### T SH, T7, LIPA, EMILY, CMP #### [facility] [address] [place] [address] Dr. Emely Adrian PLT 320 103/ul Normal 150-450 [facility] Comment on above: Performed By: #### T SH, T7, LIPA, EMILY, CMP #### [facility] [address] [place] [address] Dr. Emely Adrian RBC 2.75 106/ul Critically low 4.70-6.10 [facility] Comment on above: Performed By: #### T SH, T7, LIPA, EMILY, CMP #### [facility] [address] [place] [address] Dr. Emely Adrian WBC 7.5 103/ul Normal 4.0-11.0 [facility] Comment on above: Performed By: #### T SH, T7, LIPA, EMILY, CMP #### [facility] [address] [place] [address] Dr. Emely Adrian LACTATE/LACTIC ACIDon 2021 Lactate [Moles/Vol] 0.7 mmol/L Normal 0.4-1.9 [facility] Comment on above: Performed By: #### T SH, T7, LIPA, EMILY, CMP #### [facility] [address] [place] [address] Dr. Emely Adrian LIPASEon 03-09-2022 Lipase [Catalytic activity/Vol] 386.0 U/L Normal 73.0-393.0 [facility] Comment on above: Performed By: #### C BC #### [facility] [address] [place] [address] Dr. Emely Adrian PROF 14(COMP METB)on 022 Albumin [Mass/Vol] 2.9 g/dL Critically low 3.4-5.0 [facility] Comment on above: Performed By: #### C MP #### [facility] [address] [place] [address] Dr. Emely Adrian Albumin/Globulin [Mass ratio] 0.7 {ratio} Normal [facility] Comment on above: Performed By: #### C MP #### [facility] [address] [place] [address] Dr. Emely Adrian ALP [Catalytic activity/Vol] 43 U/L Critically low 46-116 [facility] Comment on above: Performed By: #### C MP #### [facility] [address] [place] [address] Dr. Emely Adrian ALT [Catalytic activity/Vol] 23 U/L Normal 16-63 [facility] Comment on above: Performed By: #### C MP #### [facility] [address] [place] [address] Dr. Emely Adrian Anion gap [Moles/Vol] 13.4 mmol/L Normal [facility] Comment on above: Performed By: #### C MP #### [facility] [address] [address] [address] Emely Adrian AST [Catalytic activity/Vol] 21 U/L Normal 15-37 [facility] Comment on above: Performed By: #### C MP #### [facility] [address] [address] [address] Emely Adrian Bilirubin [Mass/Vol] 0.4 mg/dL Normal 0.2-1.0 [facility] Comment on above: Performed By: #### C MP #### [facility] [address] [place] [address] Dr. Emely Adrian Calcium [Mass/Vol] 8.3 mg/dL Critically low 8.5-10.1 [facility] Comment on above: Performed By: #### C MP #### [facility] [address] [address] [address] Emely Adrian Chloride [Moles/Vol] 104 mmol/L Normal 98-107 [facility] Comment on above: Performed By: #### C MP #### [facility] [address] [address] [address] Emely Adrian CO2 [Moles/Vol] 22.9 mmol/L Normal 21.0-32.0 [facility] Comment on above: Performed By: #### C MP #### [facility] [address] [address] [address] Emely Adrian Creatinine [Mass/Vol] 1.80 mg/dL Critically high 0.70-1.30 [facility] Comment on above: Performed By: #### C MP #### [facility] [address] [place] [address] Dr. Emely Adrian EGFR-AF SOUTH AFRICAN 46 mL/min/1.73m2 Critically low >=60 [facility] Comment on above: Performed By: #### C MP #### [facility] [address] [place] [address] Dr. Emely Adrian EGFR-NON AF SOUTH AFRICAN 38 mL/min/1.73m2 Critically low >=60 [facility] Comment on above: Performed By: #### C MP #### [facility] [address] [place] [address] Dr. Emely Adrian Globulin (S) [Mass/Vol] 4.3 g/dL Normal [facility] Comment on above: Performed By: #### C MP #### [facility] [address] [address] [address] Emely Adrian Glucose [Mass/Vol] 105 mg/dL Normal 74-106 [facility] Comment on above: Performed By: #### C MP #### [facility] [address] [place] [address] Dr. Emely Adrian Potassium [Moles/Vol] 4.3 mmol/L Normal 3.5-5.1 [facility] Comment on above: Performed By: #### C MP #### [facility] [address] [place] [address] Dr. Emely Adrian Protein [Mass/Vol] 7.2 g/dL Normal 6.4-8.2 [facility] Comment on above: Performed By: #### C MP #### [facility] [address] [place] [address] Dr. Emely Adrian Sodium [Moles/Vol] 136 mmol/L Normal 136-145 [facility] Comment on above: Performed By: #### C MP #### [facility] [address] [place] [address] Dr. Emely Adrian Urea nitrogen [Mass/Vol] 35.0 mg/dL Critically high 7.0-18.0 [facility] Comment on above: Performed By: #### C MP #### [facility] [address] [place] [address] Dr. Emely Adrian Urea nitrogen/Creatinin e [Mass ratio] 19.4 mg/mg Normal [facility] Comment on above: Performed By: #### C MP #### [facility] [address] [place] [address] Dr. Emely Adrian PROTIMEon 03-09-2022 INR Coag (PPP) [Relative time] 1.12 {INR} Normal [facility] Comment on above: Performed By: #### P TT, PT #### [facility] [address] [place] [address] Dr. Emely Adrian INR GUIDELINES SEE BELOW Normal [facility] Comment on above: Result Comment: DUSTIN RED INR: 2.0 - 3.0 CONDITIONS NOT LISTED BELOW 2.5 - 3.5 FOR PROSTHETIC HEART VALVE REPLACEMENT 2.5 - 3.5 RECURRENT THROMBOSIS Performed By: #### P TT, PT #### [facility] [address] [place] [address] Dr. Emely Adrian PT Coag (PPP) [Time] 12.0 s Critically high 9.0-11.6 [facility] Comment on above: Performed By: #### P TT, PT #### [facility] [address] [place] [address] Dr. Emely Adrian PTTon 03-09-2022 aPTT Coag (Bld) [Time] 32.1 s Normal 22.3-36.2 [facility] Comment on above: Performed By: #### P TT, PT #### [facility] [address] [place] [address] Dr. Emely Adrian TROPONIN, HIGH SENSITIVITYon 03-09-2022 HSTROP 12.0 pg/mL Normal 4.0-76.1 [facility] Comment on above: Result Comment: CUT- OFF POINTS HAVE BEEN ESTABLISHED BASED ON THE FOURTH UNIVERSAL DEFINITIONS OF MYOCARDIAL INFARCTION. THE UPPER REFERENCE LIMIT (URL) OF TROPONIN, DEFINED THE 99TH PERCENTILE OF cTnI DISTRIBUTION IN A REFERENCE POPULATION, HAS BEEN CONFIRMED THE DECISION THRESHOLD FOR AK DIAGNOSIS. Performed By: #### T SH, T7, LIPA, EMILY, CMP #### [facility] [address] [place] [address] Dr. Emely Adrian TYPE AND SCREENon 03-09-2022 TYPE AND SCREEN Negative Normal [facility] Comment on above: Performed By: #### T SH, T7, LIPA, EMILY, CMP #### [facility] [address] [place] [address] Dr. Emely Adrian XR CHEST 1 Von [...] by: PATRICIO ANTON Date: 2022-03-09 10:17 Normal [facility] CA 19-9on 02-26-2022 CA 19-9 4 U/mL Normal 0-35 [facility] Comment on above: Result Comment: [employer] Electrochemiluminescence Immunoassay (ECLIA) . Values obtained with different assay methods or kits cannot be used interchangeably. Results cannot be interpreted as absolute evidence of the presence or absence of malignant disease. Performed By: #### T SH, T7, LIPA, EMILY, CMP #### [facility] [address] [address] [address] Emely Adrian CEAon 02-26-2022 CEA 1.9 ng/mL Normal 0.0-4.7 [facility] Comment on above: Result Comment: Nons mokers <3.9 Smokers <5.6 . [employer] Electrochemiluminescence Immunoassay (ECLIA) . Values obtained with different assay methods or kits cannot be used interchangeably. Results cannot be interpreted as absolute evidence of the presence or absence of malignant disease. Performed By: #### T SH, T7, LIPA, EMILY, CMP #### [facility] [address] [place] [address] Dr. Emely Adrian H PYLORI ANTIBODY IGGon 02-08 H. PYLORI IGG ABS 1.19 Index Value Critically high 0.00-0. 79 [facility] Comment on above: Result Comment: Nega tive <0.80 Equivocal 0.80 - 0.89 Positive >0.89 Performed By: #### C BC #### [facility] [address] [place] [address] Dr. Emely Adrian AMYLASEon 02-25-2022 Amylase [Catalytic activity/Vol] 118 U/L Critically high 25-115 [facility] Comment on above: Performed By: #### T SH, T7, LIPA, EMILY, CMP #### [facility] [address] [place] [address] Dr. Emely Adrian CBC AUTO DIFFon 02-25-2022 BASO # 0.0 103/ul Normal 0.0-0.1 [facility] Comment on above: Performed By: #### T SH, T7, LIPA, EMILY, CMP #### [facility] [address] [place] [address] Dr. Emely Adrian Basophils/100 WBC (Bld) 0.2 % Normal 0.2-2.0 [facility] Comment on above: Performed By: #### T SH, T7, LIPA, EMILY, CMP #### [facility] [address] [place] [address] Dr. Emely Adrian EO # 0.1 103/ul Normal 0.0-0.7 [facility] Comment on above: Performed By: #### T SH, T7, LIPA, EMILY, CMP #### [facility] [address] [place] [address] Dr. Emely Adrian Eosinophils/100 WBC (Bld) 2.8 % Normal 0.9-7.0 [facility] Comment on above: Performed By: #### T SH, T7, LIPA, EMILY, CMP #### [facility] [address] [place] [address] Dr. Emely Adrian Erythrocyte distribution width (RBC) [Ratio] 15.6 % Critically high 11.0-15.0 [facility] Comment on above: Performed By: #### T SH, T7, LIPA, EMILY, CMP #### [facility] [address] [place] [address] Dr. Emely Adrian Hematocrit (Bld) [Volume fraction] 28.9 % Critically low 42.0-54.0 [facility] Comment on above: Performed By: #### T SH, T7, LIPA, EMILY, CMP #### [facility] [address] [place] [address] Dr. Emely Adrian Hemoglobin (Bld) [Mass/Vol] 9.5 g/dL Critically low 14.0-18.0 [facility] Comment on above: Performed By: #### T SH, T7, LIPA, EMILY, CMP #### [facility] [address] [place] [address] Dr. Emely Adrian IG # 0.04 10e3/ul Critically high 0.00-0.03 [facility] Comment on above: Performed By: #### T SH, T7, LIPA, EMILY, CMP #### [facility] [address] [place] [address] Dr. Emely Adrian IG % 0.9 % Critically high 0.0-0.5 [facility] Comment on above: Performed By: #### T SH, T7, LIPA, EMILY, CMP #### [facility] [address] [place] [address] Dr. Emely Adrian LYMPH # 1.3 103/ul Normal 1.2-3.8 [facility] Comment on above: Performed By: #### T SH, T7, LIPA, EMILY, CMP #### [facility] [address] [place] [address] Dr. Emely Adrian Lymphocytes/100 WBC (Bld) 29.6 % Normal 20.5-60.0 [facility] Comment on above: Performed By: #### T SH, T7, LIPA, EMILY, CMP #### [facility] [address] [place] [address] Dr. Emely Adrian MANUAL DIFF REQ NO Normal [facility] Comment on above: Performed By: #### T SH, T7, LIPA, EMILY, CMP #### [facility] [address] [place] [address] Dr. Emely Adrian MCH (RBC) [Entitic mass] 32.1 pg Normal 25.9-34.0 [facility] Comment on above: Performed By: #### T SH, T7, LIPA, EMILY, CMP #### [facility] [address] [place] [address] Dr. Emely Adrian MCHC (RBC) [Mass/Vol] 32.9 g/dL Normal 29.9-35.2 [facility] Comment on above: Performed By: #### T SH, T7, LIPA, EMILY, CMP #### [facility] [address] [place] [address] Dr. Emely Adrian MCV (RBC) [Entitic vol] 97.6 fL Critically high 80.0-94.0 [facility] Comment on above: Performed By: #### T SH, T7, LIPA, EMILY, CMP #### [facility] [address] [place] [address] Dr. Emely Adrian MONO # 0.8 103/ul Normal 0.3-0.8 [facility] Comment on above: Performed By: #### T SH, T7, LIPA, EMILY, CMP #### [facility] [address] [place] [address] Dr. Emely Adrian Monocytes/100 WBC (Bld) 17.2 % Critically high 1.7-12.0 [facility] Comment on above: Performed By: #### T SH, T7, LIPA, EMILY, CMP #### [facility] [address] [place] [address] Dr. Emely Adrian NEUT # 2.2 103/ul Normal 1.4-6.5 [facility] Comment on above: Performed By: #### T SH, T7, LIPA, EMILY, CMP #### [facility] [address] [place] [address] Dr. Emely Adrian Neutrophils/100 WBC (Bld) 49.3 % Normal 43.0-75.0 [facility] Comment on above: Performed By: #### T SH, T7, LIPA, EMILY, CMP #### [facility] [address] [place] [address] Dr. Emely Adrian Platelet mean volume (Bld) [Entitic vol] 9.2 fL Critically low 9.5-13.5 [facility] Comment on above: Performed By: #### T SH, T7, LIPA, EMILY, CMP #### [facility] [address] [place] [address] Dr. Emely Adrian PLT 259 103/ul Normal 150-450 [facility] Comment on above: Performed By: #### T SH, T7, LIPA, EMILY, CMP #### [facility] [address] [place] [address] Dr. Emely Adrian RBC 2.96 106/ul Critically low 4.70-6.10 [facility] Comment on above: Performed By: #### T SH, T7, LIPA, EMILY, CMP #### [facility] [address] [place] [address] Dr. Emely Adrian WBC 4.4 103/ul Normal 4.0-11.0 [facility] Comment on above: Performed By: #### T SH, T7, LIPA, EMILY, CMP #### [facility] [address] [place] [address] Dr. Emely Adrian FREE THYROXINE INDEX T7on FTI 1.80 Normal 1.30-4.50 [facility] Comment on above: Performed By: #### T SH, T7, LIPA, EMILY, CMP #### [facility] [address] [place] [address] Dr. Emely Adrian T3U 34.0 % Normal 33.0-40.0 [facility] Comment on above: Performed By: #### T SH, T7, LIPA, EMILY, CMP #### [facility] [address] [place] [address] Dr. Emely Adrian T4 [Mass/Vol] 5.30 ug/dL Normal 4.50-12.10 [facility] Comment on above: Performed By: #### T SH, T7, LIPA, EMILY, CMP #### [facility] [address] [place] [address] Dr. Emely Adrian GI PANEL (PCR)on 02-25-2022 Adenovirus F 40/41 Not detected Normal NOT DETECTED [facility] Comment on above: Performed By: #### G IPANEL #### [facility] [address] [place] [address] Dr. Emely Adrian Astrovirus Not detected Normal NOT DETECTED [facility] Comment on above: Performed By: #### G IPANEL #### [facility] [address] [place] [address] Dr. Emely Adrian C. Diff toxin A/B Not detected Normal NOT DETECTED [facility] Comment on above: Performed By: #### G IPANEL #### [facility] [address] [place] [address] Dr. Emely Adrian Campylobacter Not detected Normal NOT DETECTED [facility] Comment on above: Performed By: #### G IPANEL #### [facility] [address] [place] [address] Dr. Emely Adrian Cryptosporidium Not detected Normal NOT DETECTED [facility] Comment on above: Performed By: #### G IPANEL #### [facility] [address] [place] [address] Dr. Emely Adrian Cyclos. Cayetanensis Not detected Normal NOT DETECTED [facility] Comment on above: Performed By: #### G IPANEL #### [facility] [address] [place] [address] Dr. Emely Adrian E. Coli O157 Not Applicable Normal Not Applicable [facility] Comment on above: Performed By: #### G IPANEL #### [facility] [address] [place] [address] Dr. Emely Adrian E. histolytica Not detected Normal NOT DETECTED [facility] Comment on above: Performed By: #### G IPANEL #### [facility] [address] [place] [address] Dr. Emely Adrian EAEC Not detected Normal NOT DETECTED [facility] Comment on above: Performed By: #### G IPANEL #### [facility] [address] [place] [address] Dr. Emely Adrian EIEC Not detected Normal NOT DETECTED [facility] Comment on above: Performed By: #### G IPANEL #### [facility] [address] [place] [address] Dr. Emely Adrian EPEC Not detected Normal NOT DETECTED [facility] Comment on above: Performed By: #### G IPANEL #### [facility] [address] [place] [address] Dr. Emely Adrian ETEC Not detected Normal NOT DETECTED [facility] Comment on above: Performed By: #### G IPANEL #### [facility] [address] [address] [address] Emely Olsen Lamblia Not detected Normal NOT DETECTED [facility] Comment on above: Performed By: #### G IPANEL #### [facility] [address] [address] [address] Emely STODDARD CONTROLS PASSED Normal [facility] Comment on above: Performed By: #### G IPANEL #### [facility] [address] [address] [address] Emely RODRIGUEZ MARY HEADER GI PANEL BACTERIA Normal [facility] Comment on above: Performed By: #### G IPANEL #### [facility] [address] [address] [address] Emely KAHN ECOLI GI PANEL DIARRHEAGEN IC E.COLI / SHIGELLA Normal [facility] Comment on above: Performed By: #### G IPANEL #### [facility] [address] [address] [address] Emely KAHN INFO SEE BELOW Normal [facility] Comment on above: Result Comment: EAEC - Enteroaggregative E. Coli EPEC- Enteropathogenic E. Coli ETEC- Enterotoxigenic E. Coli lt/st STEC- Shigella-like toxin-producing E. Coli stx1/stx2 EIEC- Shigella/Enteroinvasive E. Coli Performed By: #### G IPANEL #### [facility] [address] [place] [address] Dr. Eemly KAHN PARASITES GI PANEL PARASITES Normal [facility] Comment on above: Performed By: #### G IPANEL #### [facility] [address] [address] [address] Emely KAHN VIRUS GI PANEL VIRUSES Normal [facility] Comment on above: Performed By: #### G IPANEL #### [facility] [address] [address] [address] Emely Adrian Norovirus GI/GII Not detected Normal NOT DETECTED [facility] Comment on above: Performed By: #### G IPANEL #### [facility] [address] [address] [address] Emely Adrian P. Shigelloides Not detected Normal NOT DETECTED [facility] Comment on above: Performed By: #### G IPANEL #### [facility] [address] [address] [address] Emely Adrian Rotavirus A Not detected Normal NOT DETECTED [facility] Comment on above: Performed By: #### G IPANEL #### [facility] [address] [address] [address] Emely Adrian Salmonella Not detected Normal NOT DETECTED [facility] Comment on above: Performed By: #### G IPANEL #### [facility] [address] [place] [address] Dr. Emely Adrian Sapovirus Not detected Normal NOT DETECTED [facility] Comment on above: Performed By: #### G IPANEL #### [facility] [address] [place] [address] Dr. Emely Adrian STEC Not detected Normal NOT DETECTED [facility] Comment on above: Performed By: #### G IPANEL #### [facility] [address] [address] [address] Emely Adrian Vibrio Not detected Normal NOT DETECTED [facility] Comment on above: Performed By: #### G IPANEL #### [facility] [address] [place] [address] Dr. Emely Adrian Vibrio Cholera Not detected Normal NOT DETECTED [facility] Comment on above: Performed By: #### G IPANEL #### [facility] [address] [place] [address] Dr. Emely Adrian Y. Enterocolitica Not detected Normal NOT DETECTED [facility] Comment on above: Performed By: #### G IPANEL #### [facility] [address] [place] [address] Dr. Emely Adrian GLYCOHEMOGLOBIN A1Con 2021 ADA RECOMMENDATION SEE BELOW Normal [facility] Comment on above: Result Comment: ADA RECOMMENDED LIMIT 4.0 - 6.0 ADA THERAPEUTIC TARGET < 7.0 ACTION SUGGESTED > 7.0 Performed By: #### T SH, T7, LIPA, EMILY, CMP #### [facility] [address] [address] [address] Emely Adrian Glucose [Mass/Vol] 120 mg/dL Normal [facility] Comment on above: Performed By: #### T SH, T7, LIPA, EMILY, CMP #### [facility] [address] [place] [address] Dr. Emely Adrian HbA1c (Bld) [Mass fraction] 5.8 % Normal 4.5-6.2 [facility] Comment on above: Performed By: #### T SH, T7, LIPA, EMILY, CMP #### [facility] [address] [place] [address] Dr. Emely Adrian IRONon 02-25-2022 Iron [Mass/Vol] 55.0 ug/dL Critically low 65.0-175.0 [facility] Comment on above: Performed By: #### C BC #### [facility] [address] [place] [address] Dr. Emely Adrian LIPASEon 02-25-2022 Lipase [Catalytic activity/Vol] 671.0 U/L Critically high 73.0-393.0 [facility] Comment on above: Performed By: #### T SH, T7, LIPA, EMILY, CMP #### [facility] [address] [place] [address] Dr. Emely Adrian OCC BLD IMMUNO SCREENon 02-08 OCCULT BLOOD Positive Abnormal NEGATIVE [facility] Comment on above: Performed By: #### T SH, T7, LIPA, EMILY, CMP #### [facility] [address] [place] [address] Dr. Emely Adrian PROF 14(COMP METB)on 022 Albumin [Mass/Vol] 3.0 g/dL Critically low 3.4-5.0 [facility] Comment on above: Performed By: #### T SH, T7, LIPA, EMILY, CMP #### [facility] [address] [place] [address] Dr. Emely Adrian Albumin/Globulin [Mass ratio] 0.8 {ratio} Normal [facility] Comment on above: Performed By: #### T SH, T7, LIPA, EMILY, CMP #### [facility] [address] [place] [address] Dr. Emely Adrian ALP [Catalytic activity/Vol] 58 U/L Normal 46-116 [facility] Comment on above: Performed By: #### T SH, T7, LIPA, EMILY, CMP #### [facility] [address] [place] [address] Dr. Emely Adrian ALT [Catalytic activity/Vol] 25 U/L Normal 16-63 [facility] Comment on above: Performed By: #### T SH, T7, LIPA, EMILY, CMP #### [facility] [address] [place] [address] Dr. Emely Adrian Anion gap [Moles/Vol] 12.1 mmol/L Normal [facility] Comment on above: Performed By: #### T SH, T7, LIPA, EMILY, CMP #### [facility] [address] [place] [address] Dr. Emely Adrian AST [Catalytic activity/Vol] 20 U/L Normal 15-37 [facility] Comment on above: Performed By: #### T SH, T7, LIPA, EMILY, CMP #### [facility] [address] [place] [address] Dr. Emely Adrian Bilirubin [Mass/Vol] 0.2 mg/dL Normal 0.2-1.0 [facility] Comment on above: Performed By: #### T SH, T7, LIPA, EMILY, CMP #### [facility] [address] [place] [address] Dr. Emely Adrian Calcium [Mass/Vol] 8.3 mg/dL Critically low 8.5-10.1 [facility] Comment on above: Performed By: #### T SH, T7, LIPA, EMILY, CMP #### [facility] [address] [place] [address] Dr. Emely Adrian Chloride [Moles/Vol] 108 mmol/L Critically high 98-107 [facility] Comment on above: Performed By: #### T SH, T7, LIPA, EMILY, CMP #### [facility] [address] [place] [address] Dr. Emely Adrian CO2 [Moles/Vol] 24.5 mmol/L Normal 21.0-32.0 [facility] Comment on above: Performed By: #### T SH, T7, LIPA, EMILY, CMP #### [facility] [address] [place] [address] Dr. Emely Adrian Creatinine [Mass/Vol] 0.97 mg/dL Normal 0.70-1.30 [facility] Comment on above: Performed By: #### T SH, T7, LIPA, EMILY, CMP #### [facility] [address] [place] [address] Dr. Emely Adrian EGFR-AF SOUTH AFRICAN >60 Normal >=60 [facility] Comment on above: Performed By: #### T SH, T7, LIPA, EMILY, CMP #### [facility] [address] [place] [address] Dr. Emely Adrian EGFR-NON AF SOUTH AFRICAN >60 Normal >=60 [facility] Comment on above: Performed By: #### T SH, T7, LIPA, EMILY, CMP #### [facility] [address] [place] [address] Dr. Emely Adrian Globulin (S) [Mass/Vol] 3.8 g/dL Normal [facility] Comment on above: Performed By: #### T SH, T7, LIPA, EMILY, CMP #### [facility] [address] [place] [address] Dr. Emely Adrian Glucose [Mass/Vol] 97 mg/dL Normal 74-106 [facility] Comment on above: Performed By: #### T SH, T7, LIPA, EMILY, CMP #### [facility] [address] [place] [address] Dr. Emely Adrian Potassium [Moles/Vol] 4.6 mmol/L Normal 3.5-5.1 [facility] Comment on above: Performed By: #### T SH, T7, LIPA, EMILY, CMP #### [facility] [address] [place] [address] Dr. Emely Adrian Protein [Mass/Vol] 6.8 g/dL Normal 6.4-8.2 [facility] Comment on above: Performed By: #### T SH, T7, LIPA, EMILY, CMP #### [facility] [address] [place] [address] Dr. Emely Adrian Sodium [Moles/Vol] 140 mmol/L Normal 136-145 [facility] Comment on above: Performed By: #### T SH, T7, LIPA, EMILY, CMP #### [facility] [address] [place] [address] Dr. Emely Adrian Urea nitrogen [Mass/Vol] 20.0 mg/dL Critically high 7.0-18.0 [facility] Comment on above: Performed By: #### T SH, T7, LIPA, EMILY, CMP #### [facility] [address] [place] [address] Dr. Emely Adrian Urea nitrogen/Creatinin e [Mass ratio] 20.6 mg/mg Normal [facility] Comment on above: Performed By: #### T SH, T7, LIPA, EMILY, CMP #### [facility] [address] [place] [address] Dr. Emely Adrian TSHon 02-25-2022 TSH 1.247 uIU/mL Normal 0.358-3.740 [facility] Comment on above: Performed By: #### T SH, T7, LIPA, EMILY, CMP #### [facility] [address] [place] [address] Dr. Emely Adrian VITAMIN D 25 OHon 02-25-2022 VIT D 25-OH 23.9 ng/mL Normal [facility] Comment on above: Performed By: #### C BC #### [facility] [address] [place] [address] Dr. Emely Adrian VIT D RANGES SEE BELOW Normal [facility] Comment on above: Result Comment: <20 ng/mL Vit D deficient 20 - <30 ng/mL Vit D insufficient 30 - 100 ng/mL Vit D sufficient >100 ng/mL Potential Toxicity Performed By: #### C BC #### [facility] [address] [address] [address] Emely Adrian CREATININEon 12-30-2021 Creatinine [Mass/Vol] 1.21 mg/dL Normal 0.70-1.30 [facility] Comment on above: Performed By: #### T SH, T7, LIPA, EMILY, CMP #### [facility] [address] [address] [address] Emely Adrian EGFR-AF SOUTH AFRICAN >60 Normal >=60 [facility] Comment on above: Performed By: #### T SH, T7, LIPA, EMILY, CMP #### [facility] [address] [address] [address] Emely Adrian EGFR-NON AF SOUTH AFRICAN =60 Normal >=60 [facility] Comment on above: Performed By: #### T SH, T7, LIPA, EMILY, CMP #### [facility] [address] [place] [address] CHEST WO W [...] by: KIRK CRUZ Date: 2021-12-30 08:46 Normal [facility] NM STRESS/REST MULTIon 11-09 NM STRESS/REST MULTI Patient: PABLO BECKMAN Exam Date: 11/09/2021 : 1955 Gender:M Ordering : DR LV HEARD . Admission #: [id number] Family : Order #: [id number] CLICK HERE TO VIEW EXAM RADIOLOGY REPORT [...] Cruz M.D. on 11/09/2021 at 14:17 Normal [facility] CARDIAC PHILIP 3-6on 2 CK [Catalytic activity/Vol] 114 U/L Normal 39-308 [facility] Comment on above: Performed By: #### T SH, T7, LIPA, EMILY, CMP #### [facility] [address] [place] [address] Dr. Emely Adrian CK.MB [Mass/Vol] 1.75 ng/mL Normal <=3.60 [facility] Comment on above: Performed By: #### T SH, T7, LIPA, EMILY, CMP #### [facility] [address] [place] [address] Dr. Emely Adrian HSTROP 10.8 pg/mL Normal 4.0-76.1 [facility] Comment on above: Result Comment: CUT- OFF POINTS HAVE BEEN ESTABLISHED BASED ON THE FOURTH UNIVERSAL DEFINITIONS OF MYOCARDIAL INFARCTION. THE UPPER REFERENCE LIMIT (URL) OF TROPONIN, DEFINED THE 99TH PERCENTILE OF cTnI DISTRIBUTION IN A REFERENCE POPULATION, HAS BEEN CONFIRMED THE DECISION THRESHOLD FOR AK DIAGNOSIS. Performed By: #### T SH, T7, LIPA, EMILY, CMP #### [facility] [address] [place] [address] Dr. Emely Adrian CK [Catalytic activity/Vol] 122 U/L Normal 39-308 [facility] Comment on above: Performed By: #### T SH, T7, LIPA, EMILY, CMP #### [facility] [address] [place] [address] Dr. Emely Adrian CK.MB [Mass/Vol] 2.59 ng/mL Normal <=3.60 [facility] Comment on above: Performed By: #### T SH, T7, LIPA, EMILY, CMP #### [facility] [address] [place] [address] Dr. Emely Adrian HSTROP 10.5 pg/mL Normal 4.0-76.1 [facility] Comment on above: Result Comment: CUT- OFF POINTS HAVE BEEN ESTABLISHED BASED ON THE FOURTH UNIVERSAL DEFINITIONS OF MYOCARDIAL INFARCTION. THE UPPER REFERENCE LIMIT (URL) OF TROPONIN, DEFINED THE 99TH PERCENTILE OF cTnI DISTRIBUTION IN A REFERENCE POPULATION, HAS BEEN CONFIRMED THE DECISION THRESHOLD FOR AK DIAGNOSIS. Performed By: #### T SH, T7, LIPA, EMILY, CMP #### [facility] [address] [place] [address] Dr. Emely Adrian CK [Catalytic activity/Vol] 130 U/L Normal 39-308 [facility] Comment on above: Performed By: #### C BC #### [facility] [address] [address] [address] Emely Adrian CK.MB [Mass/Vol] 2.10 ng/mL Normal <=3.60 [facility] Comment on above: Performed By: #### C BC #### [facility] [address] [address] [address] Emely Adrian HSTROP 10.2 pg/mL Normal 4.0-76.1 [facility] Comment on above: Result Comment: CUT- OFF POINTS HAVE BEEN ESTABLISHED BASED ON THE FOURTH UNIVERSAL DEFINITIONS OF MYOCARDIAL INFARCTION. THE UPPER REFERENCE LIMIT (URL) OF TROPONIN, DEFINED THE 99TH PERCENTILE OF cTnI DISTRIBUTION IN A REFERENCE POPULATION, HAS BEEN CONFIRMED THE DECISION THRESHOLD FOR AK DIAGNOSIS. Performed By: #### C BC #### [facility] [address] [place] [address] Dr. Emely Adrian CARDIAC PHILIP ADMITon 022 CK [Catalytic activity/Vol] 164 U/L Normal 39-308 [facility] Comment on above: Performed By: #### C BC #### [facility] [address] [address] [address] Emely Adrian CK.MB [Mass/Vol] 3.38 ng/mL Normal <=3.60 [facility] Comment on above: Performed By: #### C BC #### [facility] [address] [address] [address] Emely Adrian HSTROP 9.5 pg/mL Normal 4.0-76.1 [facility] Comment on above: Result Comment: CUT- OFF POINTS HAVE BEEN ESTABLISHED BASED ON THE FOURTH UNIVERSAL DEFINITIONS OF MYOCARDIAL INFARCTION. THE UPPER REFERENCE LIMIT (URL) OF TROPONIN, DEFINED THE 99TH PERCENTILE OF cTnI DISTRIBUTION IN A REFERENCE POPULATION, HAS BEEN CONFIRMED THE DECISION THRESHOLD FOR AK DIAGNOSIS. Performed By: #### C BC #### [facility] [address] [address] [address] Emely Adrian ADY 124 ng/mL Critically high 16-96 [facility] Comment on above: Performed By: #### C BC #### [facility] [address] [place] [address] Dr. Emely Adrian CBC AUTO DIFFon 10-27-2021 BASO # 0.0 103/ul Normal 0.0-0.1 [facility] Comment on above: Performed By: #### C BC #### [facility] [address] [place] [address] Dr. Emely Adrian Basophils/100 WBC (Bld) 0.1 % Critically low 0.2-2.0 [facility] Comment on above: Performed By: #### C BC #### [facility] [address] [place] [address] Dr. Emely Adrian EO # 0.3 103/ul Normal 0.0-0.7 [facility] Comment on above: Performed By: #### C BC #### [facility] [address] [place] [address] Dr. Emely Adrian Eosinophils/100 WBC (Bld) 3.2 % Normal 0.9-7.0 [facility] Comment on above: Performed By: #### C BC #### [facility] [address] [place] [address] Dr. Emely Adrian Erythrocyte distribution width (RBC) [Ratio] 13.6 % Normal 11.0-15.0 [facility] Comment on above: Performed By: #### C BC #### [facility] [address] [place] [address] Dr. Emely Adrian Hematocrit (Bld) [Volume fraction] 32.2 % Critically low 42.0-54.0 [facility] Comment on above: Performed By: #### C BC #### [facility] [address] [place] [address] Dr. Emely Adrian Hemoglobin (Bld) [Mass/Vol] 10.5 g/dL Critically low 14.0-18.0 [facility] Comment on above: Performed By: #### C BC #### [facility] [address] [place] [address] Dr. Emely Adrian IG # 0.05 10e3/ul Critically high 0.00-0.03 [facility] Comment on above: Performed By: #### C BC #### [facility] [address] [address] [address] Emely Adrian IG % 0.6 % Critically high 0.0-0.5 [facility] Comment on above: Performed By: #### C BC #### [facility] [address] [address] [address] Emely Adrian LYMPH # 1.7 103/ul Normal 1.2-3.8 [facility] Comment on above: Performed By: #### C BC #### [facility] [address] [place] [address] Dr. Emely Adrian Lymphocytes/100 WBC (Bld) 19.7 % Critically low 20.5-60.0 [facility] Comment on above: Performed By: #### C BC #### [facility] [address] [place] [address] Dr. Emely Adrian MANUAL DIFF REQ NO Normal [facility] Comment on above: Performed By: #### C BC #### [facility] [address] [place] [address] Dr. Emely Adrian MCH (RBC) [Entitic mass] 31.7 pg Normal 25.9-34.0 [facility] Comment on above: Performed By: #### C BC #### [facility] [address] [place] [address] Dr. Emely Adrian MCHC (RBC) [Mass/Vol] 32.6 g/dL Normal 29.9-35.2 [facility] Comment on above: Performed By: #### C BC #### [facility] [address] [place] [address] Dr. Emely Adrian MCV (RBC) [Entitic vol] 97.3 fL Critically high 80.0-94.0 [facility] Comment on above: Performed By: #### C BC #### [facility] [address] [place] [address] Dr. Emely Adrian MONO # 1.0 103/ul Critically high 0.3-0.8 [facility] Comment on above: Performed By: #### C BC #### [facility] [address] [place] [address] Dr. Emely Adrian Monocytes/100 WBC (Bld) 12.4 % Critically high 1.7-12.0 [facility] Comment on above: Performed By: #### C BC #### [facility] [address] [place] [address] Dr. Emely Adrian NEUT # 5.4 103/ul Normal 1.4-6.5 [facility] Comment on above: Performed By: #### C BC #### [facility] [address] [place] [address] Dr. Emely Adrian Neutrophils/100 WBC (Bld) 64.0 % Normal 43.0-75.0 [facility] Comment on above: Performed By: #### C BC #### [facility] [address] [place] [address] Dr. Emely Adrian Platelet mean volume (Bld) [Entitic vol] 9.2 fL Critically low 9.5-13.5 [facility] Comment on above: Performed By: #### C BC #### [facility] [address] [place] [address] Dr. Emely Adrian PLT 417 103/ul Normal 150-450 [facility] Comment on above: Performed By: #### C BC #### [facility] [address] [place] [address] Dr. Emely Adrian RBC 3.31 106/ul Critically low 4.70-6.10 [facility] Comment on above: Performed By: #### C BC #### [facility] [address] [place] [address] Dr. Emely Adrian WBC 8.4 103/ul Normal 4.0-11.0 [facility] Comment on above: Performed By: #### C BC #### [facility] [address] [place] [address] Dr. Emely Adrian CTA CHEST WO W [...] KIRK CRUZ Date: 2021-10-27 06:37 Normal [facility] SARS-CoV-2 (COVID-19) RNA ISIDRO+probe Ql (Unsp spec) Not detected Normal NOT DETECTED [facility] Comment on above: Result Comment: When [...] for this test is supported by the [employer] of Health and Human Service's declaration that [...] T BASIM, T7, EMILY WIGGINS, CMP #### [facility] [address] [address] [address] Emely Adrian D-DIMERon 10-27-2021 D-DIMER 2.19 mg/L FEU Critically high <=0.59 [facility] Comment on above: Performed By: #### T BASIM, T7, EMILY WIGGINS, CMP #### [facility] [address] [address] [address] Emely Adrian D-DIMER COMMENTS SEE BELOW Normal [facility] [place] [facility] Comment on above: Result Comment: [...] T BASIM, Royer, EMILY WIGGINS, CMP #### [facility] [address] [address] [address] Emely Adrian DIGOXINon 10-27-2021 DIG <0.2 Critically low 0.9-2.0 [facility] Comment on above: Performed By: #### T BASIM, T7, EMILY WIGGINS, CMP #### [facility] [address] [address] [address] Emely Adrian ECHOCARDIO M/2D COMPLETEon 0 10-27-2021 ECHOCARDIO M/2D COMPLETE Patient: PABLO BECKMAN Exam Date: 10/27/2021 : 1955 Gender:M Ordering : DR LV HEARD . Admission #: [id number] Family : Order #: [id number] CLICK HERE TO VIEW EXAM ECHOCARDIOGRAM REPORT [...] M.D. on 10/27/2021 at 17:01 Normal [facility] LACTATE/LACTIC ACIDon 2021 Lactate [Moles/Vol] 0.5 mmol/L Normal 0.4-1.9 [facility] Comment on above: Performed By: #### T SH, T7, LIPA, EMILY, CMP #### [facility] [address] [address] [address] Emely Adrian Lactate [Moles/Vol] 0.5 mmol/L Normal 0.4-1.9 [facility] Comment on above: Performed By: #### C BC #### [facility] [address] [place], [place] [address] Dr. Emely Adrian PROF CHEM 8 ([facility])on Anion gap [Moles/Vol] 15.3 mmol/L Normal [facility] Comment on above: Performed By: #### C BC #### [facility] [address] [address] [address] Emely Adrian Calcium [Mass/Vol] 9.1 mg/dL Normal 8.5-10.1 [facility] Comment on above: Performed By: #### C BC #### [facility] [address] [address] [address] Emely Adrian Chloride [Moles/Vol] 105 mmol/L Normal 98-107 [facility] Comment on above: Performed By: #### C BC #### [facility] [address] [place] [address] Dr. Emely Adrian CO2 [Moles/Vol] 26.6 mmol/L Normal 21.0-32.0 [facility] Comment on above: Performed By: #### C BC #### [facility] [address] [place] [address] Dr. Emely Adrian Creatinine [Mass/Vol] 1.29 mg/dL Normal 0.70-1.30 [facility] Comment on above: Performed By: #### C BC #### [facility] [address] [place] [address] Dr. Emely Adrian EGFR-AF SOUTH AFRICAN >60 Normal >=60 [facility] [place] [facility] Comment on above: Performed By: #### C BC #### [facility] [address] [place] [address] Dr. Emely dArian EGFR-NON AF SOUTH AFRICAN 56 mL/min/1.73m2 Critically low >=60 [facility] Comment on above: Performed By: #### C BC #### [facility] [address] [address] [address] Emely Adrian Glucose [Mass/Vol] 100 mg/dL Normal 74-106 [facility] Comment on above: Performed By: #### C BC #### [facility] [address] [place] [address] Dr. Emely Adrian Potassium [Moles/Vol] 3.9 mmol/L Normal 3.5-5.1 [facility] Comment on above: Performed By: #### C BC #### [facility] [address] [place], [place] [address] Dr. Emely Adrian Sodium [Moles/Vol] 143 mmol/L Normal 136-145 [facility] Comment on above: Performed By: #### C BC #### [facility] [address] [place], [place] [address] Dr. Emely Adrian Urea nitrogen [Mass/Vol] 28.0 mg/dL Critically high 7.0-18.0 [facility] Comment on above: Performed By: #### C BC #### [facility] [address] [place], [place] [address] Dr. Emely Adrian Urea nitrogen/Creatinin e [Mass ratio] 21.7 mg/mg Normal [facility] Comment on above: Performed By: #### C BC #### [facility] [address] [place], [place] [address] Dr. Emely Adrian XR CHEST 1 Von [...] KARLY SAID Date: 2021-10-27 04:41 Normal [facility] Cardiovascular Lab Reporton 04-09-2021 Cardiovascular Lab Report [facility] Patient Name: Pablo Beckman [facility] MR #: [id number] Physician: Mamta Stephenson, Department of DIRECTOR INSTRUCTIONAL MATERIAL Medicine Service Date: 04/07/2021 Division of Birthdate: 1955 Cardiology Room #: [facility] Adult [facility] [place] [address] Cardiovascular Laboratory Report DATE OF PROCEDURE; 04/07/2021 [...] Weeks MD Date Trans: 04/09/2021 11:17 A/ [id number] Normal [facility] Encounters Encounter Date Encounter Type Care Provider Facility Start: 08-08-2023 End: 08-08-2023 ambulatory MAMTA STEPHENSON [facility] Start: 06-21-2023 Telephone encounter Quinton Gonzáles MD [...] with patient Quinton Gonzáles MD Work Phone: [place] Start: 06-23-2022 End: 06-24-2022 ambulatory LV Hoskins ROSEHarley Facility:[facility] Start: 06-22-2022 Telephone encounter Quinton Gonzáles MD Work Phone: Radiation Oncology Comment on above: Patient Question Start: 06-02-2022 End: 06-03-[address] JT GONZÁLES Facility:[facility] Start: 03-29-2022 End: 03-29-2022 Patient encounter procedure Patricio BEAUCHAMP General Surgery N[facility]/Alecia Yanez Start: 03-19-2022 Encounter for preprocedural laboratory examination DR PATRICIO Rosario [facility] Start: 03-18-2022 End: 03-18-[address] [...] TSH, T7, EMILY WIGGINS C MP #### [facility] [address] [place] [address] Dr. Emely Adrian Start: 03-18-2022 Colonoscopy [facility]io [facility] Start: 03-18-2022 Esophagogastroduodenoscopy Pat[facility]io [facility] Start: 10-17-2018 Colonoscopy Patricio [facility] Start: 09-11-2009 Colonoscopy Patricio NILL Amputation of finger, except thumb Patricio JUANL Arthroscopy of shoulder Meng george JUANL Implantation of radi oactive seed into prostate [facility] Open reduction of fr acture with internal fixation Patricio [facility] Comment on above: right leg Umbilical herniorrha phy using surgical sutures Patricio [employer] Plan of Treatment Date Care Activity Detail Author Start: 06-12-2028 Prostate specific antigen measurement Prostate Cancer Screening Discussion [facility] Start: 06-02-2027 PROSTATE CANCER SCREENING DISCUSSION PROSTATE CANCER SCREENING DISCUSSION [facility] Start: 06-02-2027 Prostate specific antigen measurement Prostate Cancer Screening Discussion [facility] Start: 06-12-2024 End: 09-11-2024 Prostate specific Ag [Mass/volume] in Serum or Plasma PSA/PROSTSPECAG DIAG Lab Routine Malignant neoplasm of prostate (HCC) Expected: 06/12/2024, Expires: 09/11/2024 [facility] Work Phone: Comment on above: Expected: 06/12/2024 , Expires: 09/11/2024 Start: 05-23-2023 End: 08-22-2023 Prostate specific Ag [Mass/volume] in Serum or Plasma PSA/PROSTSPECAG DIAG Lab Routine Malignant neoplasm of prostate (HCC) Expected: 05/23/2023, Expires: 08/22/2023 [facility] Work Phone: Comment on above: Expected: 05/23/2023 , Expires: 08/22/2023 Start: 04-10-2023 Advance Directive Discussion Advance Directive Discussion [facility] Start: 04-10-2023 Depression Assessment Depression Ass essment [facility] Start: 01-18-2023 Pneumococcal Vaccine : 65+ (2 of 2 - PPSV23 or PCV20) Pneumococcal Vaccine: 65+ (2 of 2 - PPSV23 or PCV20) [facility] Start: 12-09-2022 Covid-19 Vaccine ( season) Covid-19 Vaccine ( season) [facility] Start: 12-09-2022 Influenza vaccination Influenza Vacc ine (#1) [facility] Start: 04-10-2022 ADVANCE DIRECTIVE DISCUSSION ADVANCE DIRECTIVE DISCUSSION [facility] Start: 04-10-2022 DEPRESSION ASSESSMENT DEPRESSION ASS ESSMENT [facility] Start: 12-09-2021 Influenza vaccination INFLUENZA (#1) [facility] Start: 2021 PNEUMOCOCCAL: 65+ (1 - PCV) PNEUMOCOCCAL: 65+ (1 - PCV) [facility] Start: 09-24-2020 COVID-19 VACCINE (3 - Booster for Pfizer series) COVID-19 VACCINE (3 - Booster for Pfizer series) [facility] Start: 2016 RSV Vaccine (1 - 1-d ose 60+ series) RSV Vaccine (1 - 1-dose 60+ series) [facility] Start: 2006 SHINGRIX VACCINE (1 of 2) SHINGRIX VACCINE (1 of 2) [facility] Start: 2001 COLOGUARD (FIT-DNA) COLOGUARD (FIT-D NA) [facility] Start: 2001 Colonoscopy COLONOSCOPY [facility] Start: 2001 COLORECTAL CANCER SCREENING COLORECTAL CANCER SCREENING [facility] Start: [address] COLONOGRAPHY [facility] Start: 2001 DIABETES SCREEN DIABETES SCREEN [facility] Start: 2001 Diabetes Screening Diabetes Screenin g [facility] Start: 2001 FECAL OCCULT BLOOD FECAL OCCULT BLOO D [facility] Start: 2001 Screening for malign ant neoplasm of colon [facility] Start: 2001 SIGMOIDOSCOPY SIGMOIDOSCOPY [facility] Start: 10-21-1991 Lipid panel Lipid Screening [facility] Start: 10-21-1991 LIPID SCREEN LIPID SCREEN [facility] Start: 10-21-1975 Urine microalbumin profile [facility] Start: 1974 HEPATITIS C SCREENING HEPATITIS C [facility] Start: 1974 Hepatitis C screening Hepatitis C [facility] Start: 1974 HIV SCREENING HIV SCREENING [facility] Start: 1955 ABDOMINAL AORTIC ANEURYSM SCREENING ABDOMINAL AORTIC ANEURYSM SCREENING [facility] Start: 1955 Abdominal aortic aneurysm screening Abdominal Aortic Aneurysm Screening [facility] Immunizations Immunization Date Immunization Notes Care Provider Christian marte NEGATED: Highlighted row has not occurred!03-08-2022 influenza virus vaccine, unspecified formulation Patricio BEAUCHAMP [facility] [place] Payers Date Payer Category Payer Medicare DEVOTED MEDIC[facility] [id number] 2023-Present [phone] [address] [place] [address] O [id number] 2023 Unknown [id number] 2022 Private Health Insurance [facility] CHOICE PLUS [id number] 2022-Present [phone] [address] [place] [address] O [id number] 2006 Unknown [facility] [id number] 2006-Present [phone] [place] [address] [id number] 1959 Unknown [id number] 1959 Unknown [id number] 1955 Unknown [id number] .[id number] 1955 Unknown [id number] .[id number] 1955 Unknown [id number] .2.593 1955 Unknown [id number] .[id number] 1955 Unknown [id number] .[id number] 1955 Unknown [id number] .2.593 1955 Unknown [id number] .2.593 1955 Unknown [id number] .2.593 1955 Unknown [id number] .[id number] Social History Date Type Detail Facility Start: 06-24-2020 End: 03-08-2022 Tobacco smoking status Ex-smoker (finding) [facility] [place] Tobacco smoking status Never [facility] [place] Start: 06-24-2020 End: 06-23-2022 Sex Assigned At Male Eduin Kumar [facility] End: 06-10-1989 History of tobacco use Current smoker [facility] End: 06-10-1989 History of tobacco use Cigarette Smoker [facility] Start: 06-24-2020 End: 06-23-2022 Cigarettes smoked current (pack per day) - Reported 1.5 [facility] Start: 06-24-2020 Tobacco use and exposure Smokeless tobacco non-user [facility] Start: 06-24-2020 [facility] intake [facility] Start: 1955 Sex Assigned At Not on file [facility] Clinical Notes 03-18-2022 to 08-08-2023 Telephone Encounter - Latisha Rojas LPN - 06/21/2023 2:40 PM EDTTelephone Encounter - Josefina Anderson RN - 05/23/2023 9:43 AM ESTG Isidoro Gonzáles MD - 06/23/2022 10:11 AM EDT Note Date & Type Note Facility 08-08-2023 Note Cardiovascular Medic [facility] SUBJECTIVE Chief Complaint Patient presents with Follow-up [...] he cuts himself at work. 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 He denies any changes since last seen [...] deficit present. Ment (more content not included)... [facility] 06-21-2023 Miscellaneous Notes Melvina called to reschedule [...] Latisha Rojas RN documented in this encounter [facility] 05-23-2023 Miscellaneous Notes PT called in to schedule follow up for this year. He will also need PSA. Please sign pended order and we will fax to [facility]. Josefina Anderson, RN documented in this encounter [facility] 06-23-2022 Note HNO ID: [id number] Author: Quinton Gonzáles MD Service: ? Author [...] Time Spent: 6 minutes Quinton Gonzáles MD [facility] 06-23-2022 History of Presen t illness Narrative [...] Quinton Gonzáles MD documented in this encounter [facility] 06-23-2022 Miscellaneous Notes Appointment has been changed in Epic. Kwaku Rasmussen Per Dr Gonzáles, ok to switch to phone visit. Patient was notified. PSS- please change in epic. Josefina Anderson RN Pablo called wondering if his follow up appointment can be switched to a phone visit tomorrow. Please advise. Latisha Rojas LPN documented in this encounter [facility] 03-18-2022 Note OPERATIVE NOTE OPERATION DATE: [...] good condition. CC: Lv Heard M.D. [facility] Evaluation + Plan note No data available for this section [facility] [place] Evaluation note Diagnosis Malignant neoplasm of prostate (HCC)- Primary Malignant neoplasm of prostate [facility] Diagnosis Malignant neoplasm of prostate (HCC)- Primary Malignant neoplasm of prostate documented in this encounter [facility] note* Diagnosis Malignant neoplasm of prostate (HCC)- Primary Malignant neoplasm of prostate documented in this encounter [facility] Discharge instructions No data available for this section [facility] [place] Progress note No data available for this section 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 Specialty Start Date End Date Lv Heard MD PCP - General 02/24/09 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 Specialty Start Date End Date Lv Heard MD PCP - General 02/24/09 Source Comments (unrecognize d section and content) In the event this informatio n is protected by the Federal Confidentiality of Alcohol and Drug Abuse Patient Records regulations: The Federal rules restrict any use of the information to criminally investigate or prosecute any alcohol or drug abuse patient.[facility] the event this information is protected by the Federal Confidentiality of Alcohol and Drug Abuse Patient Records regulations: The Federal rules restrict any use of the information to criminally investigate or prosecute any alcohol or drug abuse patient.[facility] the event this information is protected by the Federal Confidentiality of Alcohol and Drug Abuse Patient Records regulations: The Federal rules restrict any use of the information to criminally investigate or prosecute any alcohol or drug abuse patient.[facility] the event this information is protected by the Federal Confidentiality of Alcohol and Drug Abuse Patient Records regulations: The Federal rules restrict any use of the information to criminally investigate or prosecute any alcohol or drug abuse patient[facility] Reason for Visit (unrecogniz ed section and content) Reason Comments Patient Question Reason Comments Established Patient Specialty Diagnoses / Procedures Referred By Contac t Referred To Contact Radiation Oncology / RADIATION ONCOLOGY Diagnoses Follow-up examination 1 yr follow up, psa at [place] Procedures OFFICE/OUTPATIENT ESTABLISHED MOD MDM 30-39 MIN EST PATIENT Quinton Gonzáles MD [address] [place] [address] [place] [address] Quinton Gonzáles MD [address] [place] [address] [place] [address] Referral ID Status Reason Start Date Expiration Date Visits Re quested Visits Authorized [id number] Open 06/23/2022 09/21/2022 1 0 Reason Comments [...] BE BASED ON THE PRIMARY CLINICAL RECORDS. [employer] [facility]. provides no warranty or guarantee of the accuracy or completeness of information in this document.
[2024-04-21] MEDS: ALBUTEROL SULFATE 2.5 MG/3 ML VIAL NEB IH (09:33)
[2024-04-21 09:35] LABS: Influenza Virus A Antigen Positive; Influenza Virus B Antigen Negative; Internal Control Within Normal Limits; SARS-CoV-2 Ag NEGATIVE (NEGATIVE)
[2024-04-21 09:39] LABS: Eosinophils Absolute Auto 0.1 10^3/uL (0.0-0.7); Eosinophils Percent Auto 2.1 % (0.9-7.0); Hematocrit 30.3 % (42.0-54.0); Immature Granulocytes Abs Auto 0.02 10^3/uL (0.00-0.03); Immature Granulocytes Pct Auto 0.4 % (0.0-0.5); Lymphocytes Absolute Auto 1.6 10^3/uL (1.2-3.8); Lymphocytes Percent Auto 28.7 % (20.5-60.0); Mean Corpuscular Hemoglobin 32.4 pg (25.9-34.0); Mean Corpuscular Volume 98.1 fL (80.0-94.0); Mean Platelet Volume 9.1 fL (9.5-13.5); Monocytes Absolute Auto 1.2 10^3/uL (0.3-0.8); Monocytes Percent Auto 20.9 % (1.7-12.0); Neutrophils Absolute Auto 2.7 10^3/uL (1.4-6.5); Neutrophils Percent Auto 47.9 % (43.0-75.0); Platelet Count 302 10^3/uL (150-450); Red Blood Count 3.09 10^6/uL (4.70-6.10); Red Cell Distribution Width 14.5 % (11.0-15.0); White Blood Count 5.6 10^3/uL (4.0-11.0)
[2024-04-21 09:48] LABS: Anion Gap 16.2; BUN Creatinine Ratio 15.8; Calcium 8.8 mg/dL (8.5-10.1); Carbon Dioxide 24.6 mmol/L (21.0-32.0); Chloride 104 mmol/L (98-107); Estimated GFR (African America >60 (>=60 mL/min/1.73m^2); Estimated GFR (Non-African Ame 51 (>=60 mL/min/1.73m^2); Glucose 100 mg/dL (74-106); Potassium 3.8 mmol/L (3.5-5.1); Sodium 141 mmol/L (136-145)
== END 2024-04-21 11:13 | disposition home or self-care (01) ==
PROVIDERS: Emergency Provider Emergency Medicine; PCP Family Medicine
DX: J10.1 Influenza due to other identified influenza virus with other respiratory manifestations (principal); R06.02 Shortness of breath; Z87.891 Personal history of nicotine dependence
CPT/HCPCS: 36415; 71045; 80048; 85025; 87804; 87811; 93005; 94640; 99285

== ENCOUNTER 2024-05-08 09:02 | Outpatient (OUT) | payer MEDICARE, SELFPAY ==
--- OUTSIDE RECORDS SUMMARY | 2024-05-08 09:11 | XMS_ITS | CCD ---
Author Organization [facility] CliniSymd Care Team Providers 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 Name Role Phone MAMTA STEPHENSON Attending Unavailable SELF, REFERRED Primary Care Unavailable SELF, REFERRED Referring Unavailable MAMTA STEPHENSON Admitting Unavailable Lv Heard Primary Care Physician Lv Heard MD Primary Care Provider [phone] NILL ., DR CURRY Admitting Unavailable NILL ., DR CURRY Attending Unavailable NILL ., DR CURRY Consulting Unavailable HOY ., DR AWAN Primary Care Unavailable KAYLEEN, STELLA PRINCE Consulting Unava ilable TERI, DR JT Harper Admitting Unavailable ENGELER, DR JT Harper Attending Unavailable ENGELER, DR JT Harepr Consulting Unavailable HOY ., DR AWAN Primary [...] ., DR AWAN Primary Care Unavailable PATRICIO NATON Unavailable NITO Rosario, DR CURRY Admitting Unavailable [...] QID, # 120 tab(s), Refills(s) 3, Pharmacy: [facility] #[id number], 177.8, cm, 03/08/22 15:41:00 EST, Height/Length Dosing, [...] 06-10-2014 06-10-2014 Episodic Other aftercare (1 source) [employer]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 [facility] 36 Yes, recommend roni ng Eliquis until seen by GI and clearance from them that he can resume. We can ask Dr. Heard to comment if he recommends patient for Watchman and to note this in his office note. Thanks [facility] 36 Dr. Heard's office maddi led asking for recommendations for Eliquis hold s/p significant red blood in stools. He was seen in [facility] ED on 12/05. I have uploaded records into media consultant outside sales for your review. There's no discharge summary or H&P. Just an ED report. Dr. Heard's office said Dr. Heard has him holding Eliquis for now. Please advise. Thanks. [facility] Office Visiton 08-08-2023 Follow-up visit [id number] Hanna Beckman 1955 M Date Provider Department Center 08/08/2023 [id number], MAMTA BH CARD [facility] Family History Problem Relation Age of Onset Stroke Mother Family Status - Relation Status Age at Mother Level of Service:76714 SC OFFICE/OUTPATIENT ESTABLISHED MOD [facility] 30 MIN Reason for Visit and Comments: Follow-up [266730] - 1 year Normal [facility] Jason 06-21-2023 CNPN Telephone (RADTSA) PABLO BECKMAN ([id number]) 1955 M Date Time Provider Department 06/21/23 [...] since PSA results are good. Please advise. TOOITE Hall Tiffany 06/22/2023 7:10 AM Signed Appts are scheduled thank you. Allergies As of Date: 06/21/2023 (No Known Allergies) Date Reviewed: 06/24/2020 Reviewed by: Kamari July - Fully Assessed Reason for Visit: Results [95] Appointment [186] Primary Visit Diagnosis:Malignant neoplasm of prostate (HCC) [C61] Order(s):PSA/PROSTSPECAG DIAG [SQPSA] Order #: [id number] FUTURE Prescriptions as of 06/22/2023 - valACYclovir [...] Status:Closed by Quinton GONZÁLES on 06/21/23 Normal [facility] Lab Reportson 06-15-2023 Lab Reports [id number] Normal [facility] Physician Referralon 024 Physician Referral [id number] [facility] CNPNon 05-23-2023 CNPN Telephone (RADTSA) PABLO BECKMAN ([id number]) 1955 Date Time Provider Department 05/23/23 Quinton GONZÁLES RADTSA During your visit today, we recorded the following information about you: Josefina Anderson RN 05/23/2023 9:44 AM Signed PT called in to schedule follow up for this year. He will also need PSA. Please sign pended order and we will fax to [facility]. Josefina Anderson RN Allergies As of Date: 05/23/2023 (No Known Allergies) Date Reviewed: 06/24/2020 Reviewed by: Felecia Benites - Fully Assessed Reason for Visit: Future Appointment [256] Primary Visit Diagnosis:Malignant neoplasm of prostate (HCC) [C61] Order(s):PSA/PROSTSPECAG DIAG [SQPSA] Order #: [id number] FUTURE Prescriptions as of 05/23/2023 - valACYclovir [...] Status:Closed by Quinton GONZÁLES on 05/23/23 Normal [facility] SARS-CoV-2 (COVID-19) RNA ISIDRO+probe Ql (Unsp spec) Not detected Normal NOT DETECTED [facility] Comment on above: Result Comment: This test is not yet approved or cleared by the [place] FDA. When there are no FDA-approved or cleared tests available, and other criteria are met, FDA can make tests available under an emergency access mechanism called an Emergency Use Authorization (EUA). The EUA for this test is supported by the Senior Quality Control Technician of Health and Human Service's (HHS's) declaration [...] T BASIM, Royer, FELICIANO, EMILY, CMP #### [facility] [address], [place] [address] Dr. Emely Adrian CBC AUTO DIFFon 03-09-2022 BASO # 0.0 103/ul Normal 0.0-0.1 [facility] Comment on above: Performed By: #### T SH, T7, LIPA, EMILY, CMP #### [facility] [address] [place] [address] Dr. Emely Adrian Basophils/100 WBC (Bld) 0.1 % Critically low 0.2-2.0 [facility] Comment on above: Performed By: #### T SH, T7, LIPA, EMILY, CMP #### [facility] [address] [place] [address] Dr. Emely Adrian EO # 0.2 103/ul Normal 0.0-0.7 [facility] Comment on above: Performed By: #### T SH, T7, LIPA, EMILY, CMP #### [facility] [address] [place] [address] Dr. Emely Adrian Eosinophils/100 WBC (Bld) 3.2 % Normal 0.9-7.0 [facility] Comment on above: Performed By: #### T SH, T7, LIPA, EMILY, CMP #### [facility] [address] [place] [address] Dr. Emely Adrian Erythrocyte distribution width (RBC) [Ratio] 15.8 % Critically high 11.0-15.0 [facility] Comment on above: Performed By: #### T SH, T7, LIPA, EMILY, CMP #### [facility] [address] [place] [address] Dr. Emely Adrian Hematocrit (Bld) [Volume fraction] 26.6 % Critically low 42.0-54.0 [facility] Comment on above: Performed By: #### T SH, T7, LIPA, EMILY, CMP #### [facility] [address] [place] [address] Dr. Emely Adrian Hemoglobin (Bld) [Mass/Vol] 9.0 g/dL Critically low 14.0-18.0 [facility] Comment on above: Performed By: #### T SH, T7, LIPA, EMILY, CMP #### [facility] [address] [place] [address] Dr. Emely Adrian IG # 0.05 10e3/ul Critically high 0.00-0.03 [facility] Comment on above: Performed By: #### T SH, T7, LIPA, EMILY, CMP #### [facility] [address] [place] [address] Dr. Emely Adrian IG % 0.7 % Critically high 0.0-0.5 [facility] Comment on above: Performed By: #### T SH, T7, LIPA, EMILY, CMP #### [facility] [address] [place] [address] Dr. Emely Adrian LYMPH # 1.8 103/ul Normal 1.2-3.8 [facility] Comment on above: Performed By: #### T SH, T7, LIPA, EMILY, CMP #### [facility] [address] [place] [address] Dr. Emely Adrian Lymphocytes/100 WBC (Bld) 24.2 % Normal 20.5-60.0 [facility] Comment on above: Performed By: #### T SH, T7, LIPA, EMILY, CMP #### [facility] [address] [place] [address] Dr. Emely Adrian MANUAL DIFF REQ NO Normal [facility] Comment on above: Performed By: #### T SH, T7, LIPA, EMILY, CMP #### [facility] [address] [place] [address] Dr. Emely Adrian MCH (RBC) [Entitic mass] 32.7 pg Normal 25.9-34.0 [facility] Comment on above: Performed By: #### T SH, T7, LIPA, EMILY, CMP #### [facility] [address] [place] [address] Dr. Emely Adrian MCHC (RBC) [Mass/Vol] 33.8 g/dL Normal 29.9-35.2 [facility] Comment on above: Performed By: #### T SH, T7, LIPA, EMILY, CMP #### [facility] [address] [place] [address] Dr. Emely Adrian MCV (RBC) [Entitic vol] 96.7 fL Critically high 80.0-94.0 [facility] Comment on above: Performed By: #### T SH, T7, LIPA, EMILY, CMP #### [facility] [address] [place] [address] Dr. Emely Adrian MONO # 1.3 103/ul Critically high 0.3-0.8 [facility] Comment on above: Performed By: #### T SH, T7, LIPA, EMILY, CMP #### [facility] [address] [place] [address] Dr. Emely Adrian Monocytes/100 WBC (Bld) 18.0 % Critically high 1.7-12.0 [facility] Comment on above: Performed By: #### T SH, T7, LIPA, EMILY, CMP #### [facility] [address] [place] [address] Dr. Emely Adrian NEUT # 4.0 103/ul Normal 1.4-6.5 [facility] Comment on above: Performed By: #### T SH, T7, LIPA, EMILY, CMP #### [facility] [address] [place] [address] Dr. Emely Adrian Neutrophils/100 WBC (Bld) 53.8 % Normal 43.0-75.0 [facility] Comment on above: Performed By: #### T SH, T7, LIPA, EMILY, CMP #### [facility] [address] [place] [address] Dr. Emely Adrian Platelet mean volume (Bld) [Entitic vol] 8.7 fL Critically low 9.5-13.5 [facility] Comment on above: Performed By: #### T SH, T7, LIPA, EMILY, CMP #### [facility] [address] [place] [address] Dr. Emely Adrian PLT 320 103/ul Normal 150-450 [facility] Comment on above: Performed By: #### T SH, T7, LIPA, EMILY, CMP #### [facility] [address] [place] [address] Dr. Emely Adrian RBC 2.75 106/ul Critically low 4.70-6.10 [facility] Comment on above: Performed By: #### T SH, T7, LIPA, EMILY, CMP #### [facility] [address] [place] [address] Dr. Emely Adrian WBC 7.5 103/ul Normal 4.0-11.0 [facility] Comment on above: Performed By: #### T SH, T7, LIPA, EMILY, CMP #### [facility] [address] [place] [address] Dr. Emely Adrian LACTATE/LACTIC ACIDon 2021 Lactate [Moles/Vol] 0.7 mmol/L Normal 0.4-1.9 [facility] Comment on above: Performed By: #### T SH, T7, LIPA, EMILY, CMP #### [facility] [address] [place] [address] Dr. Emely Adrian LIPASEon 03-09-2022 Lipase [Catalytic activity/Vol] 386.0 U/L Normal 73.0-393.0 [facility] Comment on above: Performed By: #### C BC #### [facility] [address] [place] [address] Dr. Emely Adrian PROF 14(COMP METB)on 022 Albumin [Mass/Vol] 2.9 g/dL Critically low 3.4-5.0 [facility] Comment on above: Performed By: #### C MP #### [facility] [address] [place] [address] Dr. Emely Adrian Albumin/Globulin [Mass ratio] 0.7 {ratio} Normal [facility] Comment on above: Performed By: #### C MP #### [facility] [address] [place] [address] Dr. Emely Adrian ALP [Catalytic activity/Vol] 43 U/L Critically low 46-116 [facility] Comment on above: Performed By: #### C MP #### [facility] [address] [place] [address] Dr. Emely Adrian ALT [Catalytic activity/Vol] 23 U/L Normal 16-63 [facility] Comment on above: Performed By: #### C MP #### [facility] [address] [place] [address] Dr. Emely Adrian Anion gap [Moles/Vol] 13.4 mmol/L Normal [facility] Comment on above: Performed By: #### C MP #### [facility] [address] [address] [address] Emely Adrian AST [Catalytic activity/Vol] 21 U/L Normal 15-37 [facility] Comment on above: Performed By: #### C MP #### [facility] [address] [address] [address] Emely Adrian Bilirubin [Mass/Vol] 0.4 mg/dL Normal 0.2-1.0 [facility] Comment on above: Performed By: #### C MP #### [facility] [address] [place] [address] Dr. Emely Adrian Calcium [Mass/Vol] 8.3 mg/dL Critically low 8.5-10.1 Th [facility] Comment on above: Performed By: #### C MP #### [facility] [address] [address] [address] Emely Adrian Chloride [Moles/Vol] 104 mmol/L Normal 98-107 [facility] Comment on above: Performed By: #### C MP #### [facility] [address] [address] [address] Emely Adrian CO2 [Moles/Vol] 22.9 mmol/L Normal 21.0-32.0 [facility] Comment on above: Performed By: #### C MP #### [facility] [address] [address] [address] Emely Adrian Creatinine [Mass/Vol] 1.80 mg/dL Critically high 0.70-1.30 [facility] Comment on above: Performed By: #### C MP #### [facility] [address] [place] [address] Dr. Emely Adrian EGFR-AF TURKISH 46 mL/min/1.73m2 Critically low >=60 [facility] Comment on above: Performed By: #### C MP #### [facility] [address] [place] [address] Dr. Emely Adrian EGFR-NON AF TURKISH 38 mL/min/1.73m2 Critically low >=60 [facility] Comment on above: Performed By: #### C MP #### [facility] [address] [place] [address] Dr. Emely Adrian Globulin (S) [Mass/Vol] 4.3 g/dL Normal [facility] Comment on above: Performed By: #### C MP #### [facility] [address] [address] [address] Emely Adrian Glucose [Mass/Vol] 105 mg/dL Normal 74-106 [facility] Comment on above: Performed By: #### C MP #### [facility] [address] [place] [address] Dr. Emely Adrian Potassium [Moles/Vol] 4.3 mmol/L Normal 3.5-5.1 [facility] Comment on above: Performed By: #### C MP #### [facility] [address] [place] [address] Dr. Emely Adrian Protein [Mass/Vol] 7.2 g/dL Normal 6.4-8.2 [facility] Comment on above: Performed By: #### C MP #### [facility] [address] [place] [address] Dr. Emely Adrian Sodium [Moles/Vol] 136 mmol/L Normal 136-145 [facility] Comment on above: Performed By: #### C MP #### [facility] [address] [place] [address] Dr. Emely Adrian Urea nitrogen [Mass/Vol] 35.0 mg/dL Critically high 7.0-18.0 [facility] Comment on above: Performed By: #### C MP #### [facility] [address] [place] [address] Dr. Emely Adrian Urea nitrogen/Creatinin e [Mass ratio] 19.4 mg/mg Normal [facility] Comment on above: Performed By: #### C MP #### [facility] [address] [place] [address] Dr. Emely Adrian PROTIMEon 03-09-2022 INR Coag (PPP) [Relative time] 1.12 {INR} Normal [facility] Comment on above: Performed By: #### P TT, PT #### [facility] [address] [place] [address] Dr. Emely Adrian INR GUIDELINES SEE BELOW Normal [facility] Comment on above: Result Comment: DUSTIN RED INR: 2.0 - 3.0 CONDITIONS NOT LISTED BELOW 2.5 - 3.5 FOR PROSTHETIC HEART VALVE REPLACEMENT 2.5 - 3.5 RECURRENT THROMBOSIS Performed By: #### P TT, PT #### [facility] [address] [place] [address] Dr. Emely Adrian PT Coag (PPP) [Time] 12.0 s Critically high 9.0-11.6 [facility] Comment on above: Performed By: #### P TT, PT #### [facility] [address] [place] [address] Dr. Emely Adrian PTTon 03-09-2022 aPTT Coag (Bld) [Time] 32.1 s Normal 22.3-36.2 [facility] Comment on above: Performed By: #### P TT, PT #### [facility] [address] [place] [address] Dr. Emely Adrian TROPONIN, HIGH SENSITIVITYon 03-09-2022 HSTROP 12.0 pg/mL Normal 4.0-76.1 [facility] Comment on above: Result Comment: CUT- OFF POINTS HAVE BEEN ESTABLISHED BASED ON THE FOURTH UNIVERSAL DEFINITIONS OF MYOCARDIAL INFARCTION. THE UPPER REFERENCE LIMIT (URL) OF TROPONIN, DEFINED THE 99TH PERCENTILE OF cTnI DISTRIBUTION IN A REFERENCE POPULATION, HAS BEEN CONFIRMED THE DECISION THRESHOLD FOR GA DIAGNOSIS. Performed By: #### T SH, T7, LIPA, EMILY, CMP #### [facility] [address] [place] [address] Dr. Emely Adrian TYPE AND SCREENon 03-09-2022 TYPE AND SCREEN Negative Normal [facility] Comment on above: Performed By: #### T SH, T7, LIPA, EMILY, CMP #### [facility] [address] [place] [address] Dr. mEely Adrian XR CHEST 1 Von 03-09-2022 XR [...] by: PATRICIO ANTON Date: 2022-03-09 10:17 Normal [facility] CA 19-9on 02-26-2022 CA 19-9 4 U/mL Normal 0-35 [facility] Comment on above: Result Comment: [employer] Electrochemiluminescence Immunoassay (ECLIA) . Values obtained with different assay methods or kits cannot be used interchangeably. Results cannot be interpreted as absolute evidence of the presence or absence of malignant disease. Performed By: #### T SH, T7, LIPA, EMILY, CMP #### [facility] [address] [address] [address] Emely Adrian CEAon 02-26-2022 CEA 1.9 ng/mL Normal 0.0-4.7 [facility] Comment on above: Result Comment: Nons mokers <3.9 Smokers <5.6 . [employer] Electrochemiluminescence Immunoassay (ECLIA) . Values obtained with different assay methods or kits cannot be used interchangeably. Results cannot be interpreted as absolute evidence of the presence or absence of malignant disease. Performed By: #### T SH, T7, LIPA, EMILY, CMP #### [facility] [address] [place] [address] Dr. Emely Adrian H PYLORI ANTIBODY IGGon 02-08 H. PYLORI IGG ABS 1.19 Index Value Critically high 0.00-0. 79 [facility] Comment on above: Result Comment: Nega tive <0.80 Equivocal 0.80 - 0.89 Positive >0.89 Performed By: #### C BC #### [facility] [address] [place] [address] Dr. Emely Adrian AMYLASEon 02-25-2022 Amylase [Catalytic activity/Vol] 118 U/L Critically high 25-115 [facility] Comment on above: Performed By: #### T SH, T7, LIPA, EMILY, CMP #### [facility] [address] [place] [address] Dr. Emeyl Adrian CBC AUTO DIFFon 02-25-2022 BASO # 0.0 103/ul Normal 0.0-0.1 [facility] Comment on above: Performed By: #### T SH, T7, LIPA, EMILY, CMP #### [facility] [address] [place] [address] Dr. Emely Adrian Basophils/100 WBC (Bld) 0.2 % Normal 0.2-2.0 [facility] Comment on above: Performed By: #### T SH, T7, LIPA, EMILY, CMP #### [facility] [address] [place] [address] Dr. Emely Adrian EO # 0.1 103/ul Normal 0.0-0.7 [facility] Comment on above: Performed By: #### T SH, T7, LIPA, EMILY, CMP #### [facility] [address] [place] [address] Dr. Emely Adrian Eosinophils/100 WBC (Bld) 2.8 % Normal 0.9-7.0 [facility] Comment on above: Performed By: #### T SH, T7, LIPA, EMILY, CMP #### [facility] [address] [place] [address] Dr. Emely Adrian Erythrocyte distribution width (RBC) [Ratio] 15.6 % Critically high 11.0-15.0 [facility] Comment on above: Performed By: #### T SH, T7, LIPA, EMILY, CMP #### [facility] [address] [place] [address] Dr. Emely Adrian Hematocrit (Bld) [Volume fraction] 28.9 % Critically low 42.0-54.0 [facility] Comment on above: Performed By: #### T SH, T7, LIPA, EMILY, CMP #### [facility] [address] [place] [address] Dr. Emely Adrian Hemoglobin (Bld) [Mass/Vol] 9.5 g/dL Critically low 14.0-18.0 [facility] Comment on above: Performed By: #### T SH, T7, LIPA, EMILY, CMP #### [facility] [address] [place] [address] Dr. Emely Adrian IG # 0.04 10e3/ul Critically high 0.00-0.03 [facility] Comment on above: Performed By: #### T SH, T7, LIPA, EMILY, CMP #### [facility] [address] [place] [address] Dr. Emely Adrian IG % 0.9 % Critically high 0.0-0.5 [facility] Comment on above: Performed By: #### T SH, T7, LIPA, EMILY, CMP #### [facility] [address] [place] [address] Dr. Emely Adrian LYMPH # 1.3 103/ul Normal 1.2-3.8 [facility] Comment on above: Performed By: #### T SH, T7, LIPA, EMILY, CMP #### [facility] [address] [place] [address] Dr. Emely Adrian Lymphocytes/100 WBC (Bld) 29.6 % Normal 20.5-60.0 [facility] Comment on above: Performed By: #### T SH, T7, LIPA, EMILY, CMP #### [facility] [address] [place] [address] Dr. Emely Adrian MANUAL DIFF REQ NO Normal [facility] Comment on above: Performed By: #### T SH, T7, LIPA, EMILY, CMP #### [facility] [address] [place] [address] Dr. Emely Adrian MCH (RBC) [Entitic mass] 32.1 pg Normal 25.9-34.0 [facility] Comment on above: Performed By: #### T SH, T7, LIPA, EMILY, CMP #### [facility] [address] [place] [address] Dr. Emely Adrian MCHC (RBC) [Mass/Vol] 32.9 g/dL Normal 29.9-35.2 [facility] Comment on above: Performed By: #### T SH, T7, LIPA, EMILY, CMP #### [facility] [address] [place] [address] Dr. Emely Adrian MCV (RBC) [Entitic vol] 97.6 fL Critically high 80.0-94.0 [facility] Comment on above: Performed By: #### T SH, T7, LIPA, EMILY, CMP #### [facility] [address] [place] [address] Dr. Emely Adrian MONO # 0.8 103/ul Normal 0.3-0.8 [facility] Comment on above: Performed By: #### T SH, T7, LIPA, EMILY, CMP #### [facility] [address] [place] [address] Dr. Emely Adrian Monocytes/100 WBC (Bld) 17.2 % Critically high 1.7-12.0 [facility] Comment on above: Performed By: #### T SH, T7, LIPA, EMILY, CMP #### [facility] [address] [place] [address] Dr. Emely Adrian NEUT # 2.2 103/ul Normal 1.4-6.5 [facility] Comment on above: Performed By: #### T SH, T7, LIPA, EMILY, CMP #### [facility] [address] [place] [address] Dr. Emely Adrian Neutrophils/100 WBC (Bld) 49.3 % Normal 43.0-75.0 [facility] Comment on above: Performed By: #### T SH, T7, LIPA, EMILY, CMP #### [facility] [address] [place] [address] Dr. Emely Adrian Platelet mean volume (Bld) [Entitic vol] 9.2 fL Critically low 9.5-13.5 [facility] Comment on above: Performed By: #### T SH, T7, LIPA, EMILY, CMP #### [facility] [address] [place] [address] Dr. Emely Adrian PLT 259 103/ul Normal 150-450 [facility] Comment on above: Performed By: #### T SH, T7, LIPA, EMILY, CMP #### [facility] [address] [place] [address] Dr. Emely Adrian RBC 2.96 106/ul Critically low 4.70-6.10 [facility] Comment on above: Performed By: #### T SH, T7, LIPA, EMILY, CMP #### [facility] [address] [place] [address] Dr. Emely Adrian WBC 4.4 103/ul Normal 4.0-11.0 [facility] Comment on above: Performed By: #### T SH, T7, LIPA, EMILY, CMP #### [facility] [address] [place] [address] Dr. Emely Adrian FREE THYROXINE INDEX T7on FTI 1.80 Normal 1.30-4.50 [facility] Comment on above: Performed By: #### T SH, T7, LIPA, EMILY, CMP #### [facility] [address] [place] [address] Dr. Emely Adrian T3U 34.0 % Normal 33.0-40.0 [facility] Comment on above: Performed By: #### T SH, T7, LIPA, EMILY, CMP #### [facility] [address] [place] [address] Dr. Emely Adrian T4 [Mass/Vol] 5.30 ug/dL Normal 4.50-12.10 [facility] Comment on above: Performed By: #### T SH, T7, LIPA, EMILY, CMP #### [facility] [address] [place] [address] Dr. Emely Adrian GI PANEL (PCR)on 02-25-2022 Adenovirus F 40/41 Not detected Normal NOT DETECTED [facility] Comment on above: Performed By: #### G IPANEL #### [facility] [address] [place] [address] Dr. Emely Adrian Astrovirus Not detected Normal NOT DETECTED [facility] Comment on above: Performed By: #### G IPANEL #### [facility] [address] [place] [address] Dr. Emely Adrian C. Diff toxin A/B Not detected Normal NOT DETECTED [facility] Comment on above: Performed By: #### G IPANEL #### [facility] [address] [place] [address] Dr. Emely Adrian Campylobacter Not detected Normal NOT DETECTED [facility] Comment on above: Performed By: #### G IPANEL #### [facility] [address] [place] [address] Dr. Emely Adrian Cryptosporidium Not detected Normal NOT DETECTED [facility] Comment on above: Performed By: #### G IPANEL #### [facility] [address] [place] [address] Dr. Emely Adrian Cyclos. Cayetanensis Not detected Normal NOT DETECTED [facility] Comment on above: Performed By: #### G IPANEL #### [facility] [address] [place] [address] Dr. Emely Adrian E. Coli O157 Not Applicable Normal Not Applicable [facility] Comment on above: Performed By: #### G IPANEL #### [facility] [address] [place] [address] Dr. Emely Adrian E. histolytica Not detected Normal NOT DETECTED [facility] Comment on above: Performed By: #### G IPANEL #### [facility] [address] [place] [address] Dr. Emely Adrian EAEC Not detected Normal NOT DETECTED [facility] Comment on above: Performed By: #### G IPANEL #### [facility] [address] [place] [address] Dr. Emely Adrian EIEC Not detected Normal NOT DETECTED [facility] Comment on above: Performed By: #### G IPANEL #### [facility] [address] [place] [address] Dr. Emely Adrian EPEC Not detected Normal NOT DETECTED [facility] Comment on above: Performed By: #### G IPANEL #### [facility] [address] [place] [address] Dr. Emely Adrian ETEC Not detected Normal NOT DETECTED [facility] Comment on above: Performed By: #### G IPANEL #### [facility] [address] [address] [address] Emely Olsen Lamblia Not detected Normal NOT DETECTED [facility] Comment on above: Performed By: #### G IPANEL #### [facility] [address] [address] [address] Emely STODDARD CONTROLS PASSED Normal [facility] Comment on above: Performed By: #### G IPANEL #### [facility] [address] [address] [address] Emely RODRIGUEZ MARY HEADER GI PANEL BACTERIA Normal T [facility] Comment on above: Performed By: #### G IPANEL #### [facility] [address] [address] [address] Emely KAHN ECOLI GI PANEL DIARRHEAGEN IC E.COLI / SHIGELLA Normal [facility] Comment on above: Performed By: #### G IPANEL #### [facility] [address] [address] [address] Emely KAHN INFO SEE BELOW Normal [facility] Comment on above: Result Comment: EAEC - Enteroaggregative E. Coli EPEC- Enteropathogenic E. Coli ETEC- Enterotoxigenic E. Coli lt/st STEC- Shigella-like toxin-producing E. Coli stx1/stx2 EIEC- Shigella/Enteroinvasive E. Coli Performed By: #### G IPANEL #### [facility] [address] [place] [address] Dr. Emely KAHN PARASITES GI PANEL PARASITES Normal [facility] Comment on above: Performed By: #### G IPANEL #### [facility] [address] [address] [address] Emely KAHN VIRUS GI PANEL VIRUSES Normal [facility] Comment on above: Performed By: #### G IPANEL #### [facility] [address] [address] [address] Emely Adrian Norovirus GI/GII Not detected Normal NOT DETECTED [facility] Comment on above: Performed By: #### G IPANEL #### [facility] [address] [address] [address] Emely Adrian P. Shigelloides Not detected Normal NOT DETECTED [facility] Comment on above: Performed By: #### G IPANEL #### [facility] [address] [address] [address] Emely Adrian Rotavirus A Not detected Normal NOT DETECTED [facility] Comment on above: Performed By: #### G IPANEL #### [facility] [address] [address] [address] Emely Adrian Salmonella Not detected Normal NOT DETECTED [facility] Comment on above: Performed By: #### G IPANEL #### [facility] [address] [place] [address] Dr. Emely Adrian Sapovirus Not detected Normal NOT DETECTED [facility] Comment on above: Performed By: #### G IPANEL #### [facility] [address] [place] [address] Dr. Emely Adrian STEC Not detected Normal NOT DETECTED [facility] Comment on above: Performed By: #### G IPANEL #### [facility] [address] [address] [address] Emely Adrian Vibrio Not detected Normal NOT DETECTED [facility] Comment on above: Performed By: #### G IPANEL #### [facility] [address] [place] [address] Dr. Emely Adrian Vibrio Cholera Not detected Normal NOT DETECTED [facility] Comment on above: Performed By: #### G IPANEL #### [facility] [address] [place] [address] Dr. Emely Adrian Y. Enterocolitica Not detected Normal NOT DETECTED [facility] Comment on above: Performed By: #### G IPANEL #### [facility] [address] [place] [address] Dr. Emely Adrian GLYCOHEMOGLOBIN A1Con 2021 ADA RECOMMENDATION SEE BELOW Normal [facility] Comment on above: Result Comment: ADA RECOMMENDED LIMIT 4.0 - 6.0 ADA THERAPEUTIC TARGET < 7.0 ACTION SUGGESTED > 7.0 Performed By: #### T SH, T7, LIPA, EMILY, CMP #### [facility] [address] [address] [address] Emely Adrian Glucose [Mass/Vol] 120 mg/dL Normal [facility] Comment on above: Performed By: #### T SH, T7, LIPA, EMILY, CMP #### [facility] [address] [place] [address] Dr. Emely Adrian HbA1c (Bld) [Mass fraction] 5.8 % Normal 4.5-6.2 [facility] Comment on above: Performed By: #### T SH, T7, LIPA, EMILY, CMP #### [facility] [address] [place] [address] Dr. Emely Adrian IRONon 02-25-2022 Iron [Mass/Vol] 55.0 ug/dL Critically low 65.0-175.0 [facility] Comment on above: Performed By: #### C BC #### [facility] [address] [place] [address] Dr. Emely Adrian LIPASEon 02-25-2022 Lipase [Catalytic activity/Vol] 671.0 U/L Critically high 73.0-393.0 [facility] Comment on above: Performed By: #### T SH, T7, LIPA, EMILY, CMP #### [facility] [address] [place] [address] Dr. Emely Adrian OCC BLD IMMUNO SCREENon 02-08 OCCULT BLOOD Positive Abnormal NEGATIVE [facility] Comment on above: Performed By: #### T SH, T7, LIPA, EMILY, CMP #### [facility] [address] [place] [address] Dr. Emely Adrian PROF 14(COMP METB)on 022 Albumin [Mass/Vol] 3.0 g/dL Critically low 3.4-5.0 [facility] Comment on above: Performed By: #### T SH, T7, LIPA, EMILY, CMP #### [facility] [address] [place] [address] Dr. Emely Adrian Albumin/Globulin [Mass ratio] 0.8 {ratio} Normal [facility] Comment on above: Performed By: #### T SH, T7, LIPA, EMILY, CMP #### [facility] [address] [place] [address] Dr. Emely Adrian ALP [Catalytic activity/Vol] 58 U/L Normal 46-116 [facility] Comment on above: Performed By: #### T SH, T7, LIPA, EMILY, CMP #### [facility] [address] [place] [address] Dr. Emely Adrian ALT [Catalytic activity/Vol] 25 U/L Normal 16-63 [facility] Comment on above: Performed By: #### T SH, T7, LIPA, EMILY, CMP #### [facility] [address] [place] [address] Dr. Emely Adrian Anion gap [Moles/Vol] 12.1 mmol/L Normal [facility] Comment on above: Performed By: #### T SH, T7, LIPA, EMILY, CMP #### [facility] [address] [place] [address] Dr. Emely Adrian AST [Catalytic activity/Vol] 20 U/L Normal 15-37 [facility] Comment on above: Performed By: #### T SH, T7, LIPA, EMILY, CMP #### [facility] [address] [place] [address] Dr. Emely Adrian Bilirubin [Mass/Vol] 0.2 mg/dL Normal 0.2-1.0 [facility] Comment on above: Performed By: #### T SH, T7, LIPA, EMILY, CMP #### [facility] [address] [place] [address] Dr. Emely Adrian Calcium [Mass/Vol] 8.3 mg/dL Critically low 8.5-10.1 [facility] Comment on above: Performed By: #### T SH, T7, LIPA, EMILY, CMP #### [facility] [address] [place] [address] Dr. Emely Adrian Chloride [Moles/Vol] 108 mmol/L Critically high 98-107 [facility] Comment on above: Performed By: #### T SH, T7, LIPA, EMILY, CMP #### [facility] [address] [place] [address] Dr. Emely Adrian CO2 [Moles/Vol] 24.5 mmol/L Normal 21.0-32.0 [facility] Comment on above: Performed By: #### T SH, T7, LIPA, EMILY, CMP #### [facility] [address] [place] [address] Dr. Emely Adrian Creatinine [Mass/Vol] 0.97 mg/dL Normal 0.70-1.30 [facility] Comment on above: Performed By: #### T SH, T7, LIPA, EMILY, CMP #### [facility] [address] [place] [address] Dr. Emely Adrian EGFR-AF TURKISH >60 Normal >=60 [facility] Comment on above: Performed By: #### T SH, T7, LIPA, EMILY, CMP #### [facility] [address] [place] [address] Dr. Emely Adrian EGFR-NON AF TURKISH >60 Normal >=60 [facility] Comment on above: Performed By: #### T SH, T7, LIPA, EMILY, CMP #### [facility] [address] [place] [address] Dr. Emely Adrian Globulin (S) [Mass/Vol] 3.8 g/dL Normal [facility] Comment on above: Performed By: #### T SH, T7, LIPA, EMILY, CMP #### [facility] [address] [place] [address] Dr. Emely Adrian Glucose [Mass/Vol] 97 mg/dL Normal 74-106 [facility] Comment on above: Performed By: #### T SH, T7, LIPA, EMILY, CMP #### [facility] [address] [place] [address] Dr. Emely Adrian Potassium [Moles/Vol] 4.6 mmol/L Normal 3.5-5.1 [facility] Comment on above: Performed By: #### T SH, T7, LIPA, EMILY, CMP #### [facility] [address] [place] [address] Dr. Emely Adrian Protein [Mass/Vol] 6.8 g/dL Normal 6.4-8.2 [facility] Comment on above: Performed By: #### T SH, T7, LIPA, EMILY, CMP #### [facility] [address] [place] [address] Dr. Emely Adrian Sodium [Moles/Vol] 140 mmol/L Normal 136-145 [facility] Comment on above: Performed By: #### T SH, T7, LIPA, EMILY, CMP #### [facility] [address] [place] [address] Dr. Emely Adrian Urea nitrogen [Mass/Vol] 20.0 mg/dL Critically high 7.0-18.0 [facility] Comment on above: Performed By: #### T SH, T7, LIPA, EMILY, CMP #### [facility] [address] [place] [address] Dr. Emely Adrian Urea nitrogen/Creatinin e [Mass ratio] 20.6 mg/mg Normal [facility] Comment on above: Performed By: #### T SH, T7, LIPA, EMILY, CMP #### [facility] [address] [place] [address] Dr. Emely Adrian TSHon 02-25-2022 TSH 1.247 uIU/mL Normal 0.358-3.740 [facility] Comment on above: Performed By: #### T SH, T7, LIPA, EMILY, CMP #### [facility] [address] [place] [address] Dr. Emely Adrian VITAMIN D 25 OHon 02-25-2022 VIT D 25-OH 23.9 ng/mL Normal [facility] Comment on above: Performed By: #### C BC #### [facility] [address] [place] [address] Dr. Emely Adrian VIT D RANGES SEE BELOW Normal [facility] Comment on above: Result Comment: <20 ng/mL Vit D deficient 20 - <30 ng/mL Vit D insufficient 30 - 100 ng/mL Vit D sufficient >100 ng/mL Potential Toxicity Performed By: #### C BC #### [facility] [address] [address] [address] Emely Adrian CREATININEon 12-30-2021 Creatinine [Mass/Vol] 1.21 mg/dL Normal 0.70-1.30 [facility] Comment on above: Performed By: #### T SH, T7, LIPA, EMILY, CMP #### [facility] [address] [address] [address] Emely Adrian EGFR-AF TURKISH >60 Normal >=60 [facility] Comment on above: Performed By: #### T SH, T7, LIPA, EMILY, CMP #### [facility] [address] [address] [address] Emely Adrian EGFR-NON AF TURKISH =60 Normal >=60 [facility] Comment on above: Performed By: #### T SH, T7, LIPA, EMILY, CMP #### [facility] [address] [place] [address] CHEST WO W [...] by: KIRK CRUZ Date: 2021-12-30 08:46 Normal [facility] NM STRESS/REST MULTIon 11-09 NM STRESS/REST MULTI Patient: PABLO BECKMAN Exam Date: 11/09/2021 : 1955 Gender:M Ordering : DR LV HEARD . Admission #: [id number] Family : Order #: [id number] CLICK HERE TO VIEW EXAM RADIOLOGY REPORT [...] Cruz M.D. on 11/09/2021 at 14:17 Normal [facility] CARDIAC PHILIP 3-6on 2 CK [Catalytic activity/Vol] 114 U/L Normal 39-308 [facility] Comment on above: Performed By: #### T SH, T7, LIPA, EMILY, CMP #### [facility] [address] [place] [address] Dr. Emely Adrian CK.MB [Mass/Vol] 1.75 ng/mL Normal <=3.60 [facility] Comment on above: Performed By: #### T SH, T7, LIPA, EMILY, CMP #### [facility] [address] [place] [address] Dr. Emely Adrian HSTROP 10.8 pg/mL Normal 4.0-76.1 [facility] Comment on above: Result Comment: CUT- OFF POINTS HAVE BEEN ESTABLISHED BASED ON THE FOURTH UNIVERSAL DEFINITIONS OF MYOCARDIAL INFARCTION. THE UPPER REFERENCE LIMIT (URL) OF TROPONIN, DEFINED THE 99TH PERCENTILE OF cTnI DISTRIBUTION IN A REFERENCE POPULATION, HAS BEEN CONFIRMED THE DECISION THRESHOLD FOR GA DIAGNOSIS. Performed By: #### T SH, T7, LIPA, EMILY, CMP #### [facility] [address] [place] [address] Dr. Emely Adrian CK [Catalytic activity/Vol] 122 U/L Normal 39-308 [facility] Comment on above: Performed By: #### T SH, T7, LIPA, EMILY, CMP #### [facility] [address] [place] [address] Dr. Emely Adrian CK.MB [Mass/Vol] 2.59 ng/mL Normal <=3.60 [facility] Comment on above: Performed By: #### T SH, T7, LIPA, EMILY, CMP #### [facility] [address] [place] [address] Dr. Emely Adrian HSTROP 10.5 pg/mL Normal 4.0-76.1 [facility] Comment on above: Result Comment: CUT- OFF POINTS HAVE BEEN ESTABLISHED BASED ON THE FOURTH UNIVERSAL DEFINITIONS OF MYOCARDIAL INFARCTION. THE UPPER REFERENCE LIMIT (URL) OF TROPONIN, DEFINED THE 99TH PERCENTILE OF cTnI DISTRIBUTION IN A REFERENCE POPULATION, HAS BEEN CONFIRMED THE DECISION THRESHOLD FOR GA DIAGNOSIS. Performed By: #### T SH, T7, LIPA, EMILY, CMP #### [facility] [address] [place] [address] Dr. Emely Adrian CK [Catalytic activity/Vol] 130 U/L Normal 39-308 [facility] Comment on above: Performed By: #### C BC #### [facility] [address] [address] [address] Emely Adrian CK.MB [Mass/Vol] 2.10 ng/mL Normal <=3.60 [facility] Comment on above: Performed By: #### C BC #### [facility] [address] [address] [address] Emely Adrian HSTROP 10.2 pg/mL Normal 4.0-76.1 [facility] Comment on above: Result Comment: CUT- OFF POINTS HAVE BEEN ESTABLISHED BASED ON THE FOURTH UNIVERSAL DEFINITIONS OF MYOCARDIAL INFARCTION. THE UPPER REFERENCE LIMIT (URL) OF TROPONIN, DEFINED THE 99TH PERCENTILE OF cTnI DISTRIBUTION IN A REFERENCE POPULATION, HAS BEEN CONFIRMED THE DECISION THRESHOLD FOR GA DIAGNOSIS. Performed By: #### C BC #### [facility] [address] [place] [address] Dr. Emely Adrian CARDIAC PHILIP ADMITon 022 CK [Catalytic activity/Vol] 164 U/L Normal 39-308 [facility] Comment on above: Performed By: #### C BC #### [facility] [address] [address] [address] Emely Adrian CK.MB [Mass/Vol] 3.38 ng/mL Normal <=3.60 [facility] Comment on above: Performed By: #### C BC #### [facility] [address] [address] [address] Emely Adrian HSTROP 9.5 pg/mL Normal 4.0-76.1 [facility] Comment on above: Result Comment: CUT- OFF POINTS HAVE BEEN ESTABLISHED BASED ON THE FOURTH UNIVERSAL DEFINITIONS OF MYOCARDIAL INFARCTION. THE UPPER REFERENCE LIMIT (URL) OF TROPONIN, DEFINED THE 99TH PERCENTILE OF cTnI DISTRIBUTION IN A REFERENCE POPULATION, HAS BEEN CONFIRMED THE DECISION THRESHOLD FOR GA DIAGNOSIS. Performed By: #### C BC #### [facility] [address] [address] [address] Emely Adrian ADY 124 ng/mL Critically high 16-96 [facility] Comment on above: Performed By: #### C BC #### [facility] [address] [place] [address] Dr. Emely Adrian CBC AUTO DIFFon 10-27-2021 BASO # 0.0 103/ul Normal 0.0-0.1 [facility] Comment on above: Performed By: #### C BC #### [facility] [address] [place] [address] Dr. Emely Adrian Basophils/100 WBC (Bld) 0.1 % Critically low 0.2-2.0 [facility] Comment on above: Performed By: #### C BC #### [facility] [address] [place] [address] Dr. Emely Adrian EO # 0.3 103/ul Normal 0.0-0.7 [facility] Comment on above: Performed By: #### C BC #### [facility] [address] [place] [address] Dr. Emely Adrian Eosinophils/100 WBC (Bld) 3.2 % Normal 0.9-7.0 [facility] Comment on above: Performed By: #### C BC #### [facility] [address] [place] [address] Dr. Emely Adrian Erythrocyte distribution width (RBC) [Ratio] 13.6 % Normal 11.0-15.0 [facility] Comment on above: Performed By: #### C BC #### [facility] [address] [place] [address] Dr. Emely Adrian Hematocrit (Bld) [Volume fraction] 32.2 % Critically low 42.0-54.0 [facility] Comment on above: Performed By: #### C BC #### [facility] [address] [place] [address] Dr. Emely Adrian Hemoglobin (Bld) [Mass/Vol] 10.5 g/dL Critically low 14.0-18.0 [facility] Comment on above: Performed By: #### C BC #### [facility] [address] [place] [address] Dr. Emely Adrian IG # 0.05 10e3/ul Critically high 0.00-0.03 [facility] Comment on above: Performed By: #### C BC #### [facility] [address] [address] [address] Emely Adrian IG % 0.6 % Critically high 0.0-0.5 [facility] Comment on above: Performed By: #### C BC #### [facility] [address] [address] [address] Emely Adrian LYMPH # 1.7 103/ul Normal 1.2-3.8 [facility] Comment on above: Performed By: #### C BC #### [facility] [address] [place] [address] Dr. Emely Adrian Lymphocytes/100 WBC (Bld) 19.7 % Critically low 20.5-60.0 [facility] Comment on above: Performed By: #### C BC #### [facility] [address] [place] [address] Dr. Emely Adrian MANUAL DIFF REQ NO Normal [facility] Comment on above: Performed By: #### C BC #### [facility] [address] [place] [address] Dr. Emely Adrian MCH (RBC) [Entitic mass] 31.7 pg Normal 25.9-34.0 [facility] Comment on above: Performed By: #### C BC #### [facility] [address] [place] [address] Dr. Emely Adrian MCHC (RBC) [Mass/Vol] 32.6 g/dL Normal 29.9-35.2 [facility] Comment on above: Performed By: #### C BC #### [facility] [address] [place] [address] Dr. Emely Adrian MCV (RBC) [Entitic vol] 97.3 fL Critically high 80.0-94.0 [facility] Comment on above: Performed By: #### C BC #### [facility] [address] [place] [address] Dr. Emely Adrian MONO # 1.0 103/ul Critically high 0.3-0.8 [facility] Comment on above: Performed By: #### C BC #### [facility] [address] [place] [address] Dr. Emely Adrian Monocytes/100 WBC (Bld) 12.4 % Critically high 1.7-12.0 [facility] Comment on above: Performed By: #### C BC #### [facility] [address] [place] [address] Dr. Emely Adrian NEUT # 5.4 103/ul Normal 1.4-6.5 [facility] Comment on above: Performed By: #### C BC #### [facility] [address] [place] [address] Dr. Emely Adrian Neutrophils/100 WBC (Bld) 64.0 % Normal 43.0-75.0 [facility] Comment on above: Performed By: #### C BC #### [facility] [address] [place] [address] Dr. Emely Adrian Platelet mean volume (Bld) [Entitic vol] 9.2 fL Critically low 9.5-13.5 [facility] Comment on above: Performed By: #### C BC #### [facility] [address] [place] [address] Dr. Emely Adrian PLT 417 103/ul Normal 150-450 [facility] Comment on above: Performed By: #### C BC #### [facility] [address] [place] [address] Dr. Emely Adiran RBC 3.31 106/ul Critically low 4.70-6.10 [facility] Comment on above: Performed By: #### C BC #### [facility] [address] [place] [address] Dr. Emely Adrian WBC 8.4 103/ul Normal 4.0-11.0 [facility] Comment on above: Performed By: #### C BC #### [facility] [address] [place] [address] Dr. Emely Adrian CTA CHEST WO W [...] KIRK CRUZ Date: 2021-10-27 06:37 Normal [facility] Covid-19 PCR ([facility]on [facility]-09 SARS-CoV-2 (COVID-19) RNA ISIDRO+probe Ql (Unsp spec) Not detected Normal NOT DETECTED [facility] Comment on above: Result Comment: When [...] for this test is supported by the Senior Quality Control Technician of Health and Human Service's declaration that [...] T BASIM, T7, EMILY WIGGINS, CMP #### [facility] [address] [address] [address] Emely Adrian D-DIMERon 10-27-2021 D-DIMER 2.19 mg/L FEU Critically high <=0.59 [facility] Comment on above: Performed By: #### T BASIM, T7, EMILY WIGGINS, CMP #### [facility] [address] [address] [address] Emely Adrian D-DIMER COMMENTS SEE BELOW Normal [facility] Comment on above: Result Comment: [...] T BASIM, Royer, EMILY WIGGINS, CMP #### [facility] [address] [address] [address] Emely Adrian DIGOXINon 10-27-2021 DIG <0.2 Critically low 0.9-2.0 [facility] Comment on above: Performed By: #### T BASIM, T7, EMILY WIGGINS, CMP #### [facility] [address] [address] [address] Emely Adrian ECHOCARDIO M/2D COMPLETEon 0 10-27-2021 ECHOCARDIO M/2D COMPLETE Patient: PABLO BECKMAN Exam Date: 10/27/2021 : 1955 Gender:M Ordering : DR LV HEARD . Admission #: [id number] Family : Order #: [id number] CLICK HERE TO VIEW EXAM ECHOCARDIOGRAM REPORT [...] M.D. on 10/27/2021 at 17:01 Normal [facility] LACTATE/LACTIC ACIDon 2021 Lactate [Moles/Vol] 0.5 mmol/L Normal 0.4-1.9 [facility] Comment on above: Performed By: #### T SH, T7, LIPA, EMILY, CMP #### [facility] [address] [address] [address] Emely Adrian Lactate [Moles/Vol] 0.5 mmol/L Normal 0.4-1.9 [facility] Comment on above: Performed By: #### C BC #### [facility] [address], [place] [address] Dr. Emely Adrian PROF CHEM 8 ([facility] METB)on Anion gap [Moles/Vol] 15.3 mmol/L Normal [facility] Comment on above: Performed By: #### C BC #### [facility] [address] [address] [address] Emely Adrian Calcium [Mass/Vol] 9.1 mg/dL Normal 8.5-10.1 [facility] Comment on above: Performed By: #### C BC #### [facility] [address] [address] [address] Emely Adrian Chloride [Moles/Vol] 105 mmol/L Normal 98-107 [facility] Comment on above: Performed By: #### C BC #### [facility] [address] [place] [address] Dr. Emely Adrian CO2 [Moles/Vol] 26.6 mmol/L Normal 21.0-32.0 [facility] Comment on above: Performed By: #### C BC #### [facility] [address] [place] [address] Dr. Emely Adrian Creatinine [Mass/Vol] 1.29 mg/dL Normal 0.70-1.30 [facility] Comment on above: Performed By: #### C BC #### [facility] [address] [place] [address] Dr. Emely Adrian EGFR-AF TURKISH >60 Normal >=60 [facility] Comment on above: Performed By: #### C BC #### [facility] [address] [place] [address] Dr. Emely Adrian EGFR-NON AF TURKISH 56 mL/min/1.73m2 Critically low >=60 [facility] Comment on above: Performed By: #### C BC #### [facility] [address] [address] [address] Emely Adrian Glucose [Mass/Vol] 100 mg/dL Normal 74-106 [facility] Comment on above: Performed By: #### C BC #### [facility] [address] [place] [address] Dr. Emely Adrian Potassium [Moles/Vol] 3.9 mmol/L Normal 3.5-5.1 [facility] Comment on above: Performed By: #### C BC #### [facility] [address], [place] [address] Dr. Emely Adrian Sodium [Moles/Vol] 143 mmol/L Normal 136-145 [facility] Comment on above: Performed By: #### C BC #### [facility] [address], [place] [address] [address]. Emely Adrian Urea nitrogen [Mass/Vol] 28.0 mg/dL Critically high 7.0-18.0 [facility] Comment on above: Performed By: #### C BC #### [facility] [address], [place] [address] Dr. Emely Adrian Urea nitrogen/Creatinin e [Mass ratio] 21.7 mg/mg Normal [facility] Comment on above: Performed By: #### C BC #### [facility] [address], [place] [address] Dr. Emely Adrian XR CHEST 1 Von [...] KARLY SAID Date: 2021-10-27 04:41 Normal [facility] Cardiovascular Lab Reporton 04-09-2021 Cardiovascular Lab Report [facility] Patient Name: Pablo Beckman [facility] MR #: [id number] Physician: Mamta Stephenson, Department of HEALTH SAFETY INSTRUCTOR Medicine Service Date: 04/07/2021 Division of Birthdate: 1955 Cardiology Room #: [facility] [address] [place] [address] Cardiovascular Laboratory Report DATE OF PROCEDURE; 04/07/2021 [...] Weeks MD Date Trans: 04/09/2021 11:17 A/ [id number] Normal [facility] Encounters Encounter Date Encounter Type Care Provider Facility Start: 08-08-2023 End: 08-08-2023 ambulatory MAMTA STEPHENSON [facility] Start: 06-21-2023 Telephone encounter Quinton Gonzáles [...] with patient Quinton Gonzáles MD Work Phone: [place] Start: 06-23-2022 End: 06-24-2022 ambulatory LV Hoskins ROSEHarley Facility:[facility] Start: 06-22-2022 Telephone encounter Quinton Gonzáles MD Work Phone: Radiation Oncology Comment on above: Patient Question Start: 06-02-2022 End: 06-03-[address] JT GONZÁLES Facility:[facility] Start: 03-29-2022 End: 03-29-2022 Patient encounter procedure Patricio BEAUCHAMP General Surgery Nito/Alecia Yanez Start: 03-19-2022 Encounter for preprocedural laboratory examination DR PATRICIO Rosario [facility] Start: 03-18-2022 End: 03-18-[address] [...] Start: 04-07-2021 End: 04-08-2021 ambulatory MAMTA STEPHENSON Facility:[facility] Procedures Date Procedure Procedure Detail Performing Clinician Start: 08-08-2023 Follow-up visit Follow-up MAMTA STEPHENSON Start: 06-02-2022 End: 06-02-2022 PSA screening [facility] Provider Comment on above: Performed By: #### TSH, T7, EMILY WIGGINS C MP #### [facility] [address] [place] [address] Dr. Emely Adrian Start: 03-18-2022 Colonoscopy Patricio [employer] Start: 03-18-2022 Esophagogastroduodenoscopy Patricio [employer] Start: 10-17-2018 Colonoscopy Patricio [employer] Start: 09-11-2009 Colonoscopy Patricio NILL Amputation of finger, except thumb Patricio JUANL Arthroscopy of shoulder Meng george JUANL Implantation of radi oactive seed into prostate Patricio [employer] Open reduction of fr acture with internal fixation Patricio [employer] Comment on above: right leg Umbilical herniorrha phy using surgical sutures Patricio [employer] Plan of Treatment Date Care Activity Detail Author Start: 06-12-2028 Prostate specific antigen measurement Prostate Cancer Screening Discussion [facility] Start: 06-02-2027 PROSTATE CANCER SCREENING DISCUSSION PROSTATE CANCER SCREENING DISCUSSION [facility] Start: 06-02-2027 Prostate specific antigen measurement Prostate Cancer Screening Discussion [facility] Start: 06-12-2024 End: 09-11-2024 Prostate specific Ag [Mass/volume] in Serum or Plasma PSA/PROSTSPECAG DIAG Lab Routine Malignant neoplasm of prostate (HCC) Expected: 06/12/2024, Expires: 09/11/2024 [facility] Work Phone: Comment on above: Expected: 06/12/2024 , Expires: 09/11/2024 Start: 05-23-2023 End: 08-22-2023 Prostate specific Ag [Mass/volume] in Serum or Plasma PSA/PROSTSPECAG DIAG Lab Routine Malignant neoplasm of prostate (HCC) Expected: 05/23/2023, Expires: 08/22/2023 [facility] Work Phone: Comment on above: Expected: 05/23/2023 , Expires: 08/22/2023 Start: 04-10-2023 Advance Directive Discussion Advance Directive Discussion [facility] Start: 04-10-2023 Depression Assessment Depression Ass essment [facility] Start: 01-18-2023 Pneumococcal Vaccine : 65+ (2 of 2 - PPSV23 or PCV20) Pneumococcal Vaccine: 65+ (2 of 2 - PPSV23 or PCV20) [facility] Start: 12-09-2022 Covid-19 Vaccine ( season) Covid-19 Vaccine ( season) [facility] Start: 12-09-2022 Influenza vaccination Influenza Vacc ine (#1) [facility] Start: 04-10-2022 ADVANCE DIRECTIVE DISCUSSION ADVANCE DIRECTIVE DISCUSSION [facility] Start: 04-10-2022 DEPRESSION ASSESSMENT DEPRESSION ASS ESSMENT [facility] Start: 12-09-2021 Influenza vaccination INFLUENZA (#1) [facility] Start: 2021 PNEUMOCOCCAL: 65+ (1 - PCV) PNEUMOCOCCAL: 65+ (1 - PCV) [facility] Start: 09-24-2020 COVID-19 VACCINE (3 - Booster for Pfizer series) COVID-19 VACCINE (3 - Booster for Pfizer series) [facility] Start: 2016 RSV Vaccine (1 - 1-d ose 60+ series) RSV Vaccine (1 - 1-dose 60+ series) [facility] Start: 2006 SHINGRIX VACCINE (1 of 2) SHINGRIX VACCINE (1 of 2) [facility] Start: 2001 COLOGUARD (FIT-DNA) COLOGUARD (FIT-D NA) [facility] Start: 2001 Colonoscopy COLONOSCOPY [facility] Start: 2001 COLORECTAL CANCER SCREENING COLORECTAL CANCER SCREENING [facility] Start: [address] COLONOGRAPHY [facility] Start: 2001 DIABETES SCREEN DIABETES SCREEN [facility] Start: 2001 Diabetes Screening Diabetes Screenin g [facility] Start: 2001 FECAL OCCULT BLOOD FECAL OCCULT BLOO D [facility] Start: 2001 Screening for malign ant neoplasm of colon [facility] Start: [address] [facility] Start: 10-21-1991 Lipid panel Lipid Screening [facility] Start: 10-21-1991 LIPID SCREEN LIPID SCREEN [facility] Start: 10-21-1975 Urine microalbumin profile [facility] Start: 1974 HEPATITIS C SCREENING HEPATITIS C [facility] Start: 1974 Hepatitis C screening Hepatitis C [facility] Start: 1974 HIV SCREENING HIV SCREENING [facility] Start: 1955 ABDOMINAL AORTIC ANEURYSM SCREENING ABDOMINAL AORTIC ANEURYSM SCREENING [facility] Start: 1955 Abdominal aortic aneurysm screening Abdominal Aortic Aneurysm Screening [facility] Immunizations Immunization Date Immunization Notes Care Provider Christian marte NEGATED: Highlighted row has not occurred!03-08-2022 influenza virus vaccine, unspecified formulation Patricio BEAUCHAMP [facility] Payers Date Payer Category Payer Medicare DEVOTED MEDICARE [facility] [id number] 2023-Present [phone] [address] [place] [address] O [id number] 2023 Unknown [id number] 2022 Private Health Insurance [facility] CHOICE PLUS [id number] 2022-Present [phone] [address] [place] [address] O [id number] 2006 Unknown [facility] GENERIC [id number] 2006-Present [phone] [place] [address] [id number] 1959 Unknown [id number] 1959 Unknown [id number] 1955 Unknown [id number] 1955 Unknown [id number] .[id number] 1955 Unknown [id number] .[id number] 1955 Unknown [id number] .[id number] 1955 Unknown [id number] .[id number] 1955 Unknown [id number] .[id number] 1955 Unknown [id number] .[id number] 1955 Unknown [id number] .[id number] 1955 Unknown [id number] .[id number] Social History Date Type Detail Facility Start: 06-24-2020 End: 03-08-2022 Tobacco smoking status Ex-smoker (finding) [facility] Tobacco smoking status Never [facility] Start: 06-24-2020 End: 06-23-2022 Sex Assigned At Male Eduin Kumar [facility] End: 06-10-1989 History of tobacco use Current smoker [facility] End: 06-10-1989 History of tobacco use Cigarette Smoker [facility] Start: 06-24-2020 End: 06-23-2022 Cigarettes smoked current (pack per day) - Reported 1.5 [facility] Start: 06-24-2020 Tobacco use and exposure Smokeless tobacco non-user [facility] Start: 06-24-2020 [facility] Start: 1955 Sex Assigned At Not on file [facility] Clinical Notes 03-18-2022 to 08-08-2023 Telephone Encounter - Latisha Rojas LPN - 06/21/2023 2:40 PM EDTTelephone Encounter - Josefina Anderson RN - 05/23/2023 9:43 AM ESTG Isidoro Gonzáles MD - 06/23/2022 10:11 AM EDT Note Date & Type Note Facility 08-08-2023 Note Cardiovascular Medic [facility] SUBJECTIVE Chief Complaint Patient presents with [...] he cuts himself at work. 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 He denies any changes since last seen [...] deficit present. Ment (more content not included)... [facility] 06-21-2023 Miscellaneous Notes Melvina called to [...] Latisha Rojas RN documented in this encounter [facility] 05-23-2023 Miscellaneous Notes PT called in to schedule follow up for this year. He will also need PSA. Please sign pended order and we will fax to [facility]. Josefina Anderson, RN documented in this encounter [facility] 06-23-2022 Note HNO ID: [id number] Author: Quinton Gonzáles MD Service: ? Author [...] Time Spent: 6 minutes Quinton Gonzáles MD [facility] 06-23-2022 History of Presen t [...] Quinton Gonzáles MD documented in this encounter [facility] 06-23-2022 Miscellaneous Notes Appointment has been changed in Epic. Kwaku Rasmussen Per Dr Gonzáles, ok to switch to phone visit. Patient was notified. PSS- please change in epic. Josefina Anderson RN Pablo called wondering if his follow up appointment can be switched to a phone visit tomorrow. Please advise. Latisha Rojas LPN documented in this encounter [facility] 03-18-2022 Note OPERATIVE NOTE OPERATION DATE: [...] good condition. CC: Lv Heard M.D. [facility] Evaluation + Plan note No data available for this section [facility] Evaluation note Diagnosis Malignant neoplasm of prostate (HCC)- Primary Malignant neoplasm of prostate [facility] Diagnosis Malignant neoplasm of prostate (HCC)- Primary Malignant neoplasm of prostate documented in this encounter [facility] note* Diagnosis Malignant neoplasm of prostate (HCC)- Primary Malignant neoplasm of prostate documented in this encounter [facility] Discharge instructions No data available for this section [facility] Progress note No data available for this section [facility] Summary Purpose Family History No Family History [...] and content) DATE CREATED AUTHOR 04/15/2021 [facility] DATE CREATED AUTHOR AUTHOR'S ORGANIZ ATION 08/08/2022 [facility] DATE CREATED AUTHOR AUTHOR'S ORGANIZ ATION 06/16/2023 [facility] DATE CREATED AUTHOR AUTHOR'S ORGANIZ ATION 06/23/2023 [facility] DATE CREATED AUTHOR AUTHOR'S ORGANIZ ATION 12/09/2023 [facility] Patient Care team informatio n (unrecognized section and content) 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 Relationship Specialty Start Date End Date Lv Heard MD PCP - General 02/24/09 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 Relationship Specialty Start Date End Date Lv Heard MD PCP - General 02/24/09 Source Comments (unrecognize d section and content) In the event this informatio n is protected by the Federal Confidentiality of Alcohol and Drug Abuse Patient Records regulations: The Federal rules restrict any use of the information to criminally investigate or prosecute any alcohol or drug abuse patient.[facility] the event this information is protected by the Federal Confidentiality of Alcohol and Drug Abuse Patient Records regulations: The Federal rules restrict any use of the information to criminally investigate or prosecute any alcohol or drug abuse patient.[facility] the event this information is protected by the Federal Confidentiality of Alcohol and Drug Abuse Patient Records regulations: The Federal rules restrict any use of the information to criminally investigate or prosecute any alcohol or drug abuse patient.[facility] Hospital[facility] the event this information is protected by the Federal Confidentiality of Alcohol and Drug Abuse Patient Records regulations: The Federal rules restrict any use of the information to criminally investigate or prosecute any alcohol or drug abuse patient.[facility] Reason for Visit (unrecogniz ed section and content) Reason Comments Patient Question Reason Comments Established Patient Specialty Diagnoses / Procedures Referred By Contac t Referred To Contact Radiation Oncology / RADIATION ONCOLOGY Diagnoses Follow-up examination 1 yr follow up, psa at [facility] Procedures OFFICE/OUTPATIENT ESTABLISHED MOD MDM 30-39 MIN EST PATIENT Quinton Gonzáles MD [address] [place] [address] [place] [address] Quinton Gonzáles MD [address] [place] [address] [place] [address] Referral ID Status Reason Start Date Expiration Date Visits Re quested Visits Authorized [id number] Open 06/23/2022 09/21/2022 1 0 Reason Comments [...] BE BASED ON THE PRIMARY CLINICAL RECORDS. [employer] [facility]. provides no warranty or guarantee of the accuracy or completeness of information in this document.
[2024-05-08 09:40] LABS: Hematocrit 31.9 % (42.0-54.0); Hemoglobin 10.5 g/dL (14.0-18.0); Immature Granulocytes Abs Auto 0.06 10^3/uL (0.00-0.03); Immature Granulocytes Pct Auto 0.8 % (0.0-0.5); Lymphocytes Absolute Auto 1.2 10^3/uL (1.2-3.8); Lymphocytes Percent Auto 16.3 % (20.5-60.0); Mean Corpuscular HGB Conc 32.9 g/dL (29.9-35.2); Mean Corpuscular Hemoglobin 32.8 pg (25.9-34.0); Mean Corpuscular Volume 99.7 fL (80.0-94.0); Mean Platelet Volume 9.1 fL (9.5-13.5); Monocytes Absolute Auto 0.8 10^3/uL (0.3-0.8); Neutrophils Absolute Auto 5.4 10^3/uL (1.4-6.5); Neutrophils Percent Auto 71.9 % (43.0-75.0); Platelet Count 328 10^3/uL (150-450); Red Cell Distribution Width 14.3 % (11.0-15.0); White Blood Count 7.5 10^3/uL (4.0-11.0)
[2024-05-08 10:08] LABS: Estimated Average Glucose 111 mg/dL; Glycohemoglobin A1C 5.5 % (4.5-6.2)
[2024-05-08 10:19] LABS: Alanine Aminotransferase 23 U/L (16-63); Albumin Globulin Ratio 0.9; Albumin Level 3.4 g/dL (3.4-5.0); Alkaline Phosphatase 54 U/L (46-116); Anion Gap 13.2; Aspartate Amino Transferase 19 U/L (15-37); BUN Creatinine Ratio 18.3; Bilirubin Total 0.4 mg/dL (0.2-1.0); Calcium 8.9 mg/dL (8.5-10.1); Carbon Dioxide 28.7 mmol/L (21.0-32.0); Chloride 106 mmol/L (98-107); Cholesterol 100 mg/dL (<=200); Estimated GFR (African America >60 (>=60 mL/min/1.73m^2); Estimated GFR (Non-African Ame >60 (>=60 mL/min/1.73m^2); Free T3 1.48 pg/mL (2.18-3.98); Glucose 113 mg/dL (74-106); HDL Cholesterol 50 mg/dL (40-60); LDL Cholesterol Calculated 34.8 mg/dL; Potassium 3.9 mmol/L (3.5-5.1); Sodium 144 mmol/L (136-145); Total Protein 7.4 g/dL (6.4-8.2); Triglycerides 76 mg/dL (<=150); Uric Acid 9.1 mg/dL (3.5-7.2); VLDL CHOLESTEROL 15.2 mg/dL
[2024-05-09 05:07] LABS: Insulin 15.2 uIU/mL (2.6-24.9)
[2024-05-09 06:08] LABS: PSA, Free <0.02 ng/mL; Prostate Specific Ag <0.1 ng/mL (0.0-4.0)
== END 2024-05-08 09:03 | disposition home or self-care (01) ==
PROVIDERS: PCP Family Medicine; Visit Provider Family Medicine
DX: R07.9 Chest pain, unspecified (principal); I10 Essential (primary) hypertension; I48.0 Paroxysmal atrial fibrillation; E78.5 Hyperlipidemia, unspecified; R73.09 Other abnormal glucose; Z12.12 Encounter for screening for malignant neoplasm of rectum; Z12.5 Encounter for screening for malignant neoplasm of prostate
CPT/HCPCS: 36415; 80053; 80061; 83036; 83525; 84153; 84154; 84436; 84443; 84481; 84550; 85025

== ENCOUNTER 2024-05-09 09:08 | Outpatient (REF) | payer MEDICARE, SELFPAY ==
--- OUTSIDE RECORDS SUMMARY | 2024-05-09 09:14 | XMS_ITS | CCD ---
Author Organization [facility] CliniSypr Care Team Providers Care Mva Reactor Operator Head Name Role Phone MAMTA STEPHENSON Attending Unavailable SELF, REFERRED Primary Care Unavailable SELF, REFERRED Referring Unavailable MAMTA STEPHENSON Admitting Unavailable Lv Heard Primary Care Physician Lv Heard MD Primary Care Provider [phone] N[address] ., [address] CURRY Admitting Unavailable [...] QID, # 120 tab(s), Refills(s) 3, Pharmacy: [id number], 177.8, cm, 03/08/22 15:41:00 EST, Height/Length Dosing, [...] 06-10-2014 Episodic Other aftercare (1 source) intermediate manager (current) use of anticoagulants; Translations: [INTERMEDIATE CURRNT USE ANTICOAGULANTS] Onset: 03-24-2022 Episodic Other aftercare (1 source) intermediate manager (current) use of aspirin; Translations: [JUTE BAG CLIPPER CURRENT USE OF ASPIRIN] Onset: 03-24-2022 Episodic Other aftercare (1 source) Other medical terminologist (current) drug therapy; Translations: [OTH JUTE BAG CLIPPER CURRENT DRUG THERAPY] Onset: 03-24-2022 Episodic Other [...] see Jazz in office to discuss LAAO. [facility] 36 Yes, recommend roni ng Eliquis until seen by GI and clearance from them that he can resume. We can ask Dr. Heard to comment if he recommends patient for Watchman and to note this in his office note. Thanks [facility] 36 Dr. Heard's office maddi led asking for recommendations for Eliquis hold s/p significant red blood in stools. He was seen in [facility] ED on 12/05. I have uploaded records into sales assistant entertainment and media for your review. There's no discharge summary or H&P. Just an ED report. Dr. Heard's office said Dr. Heard has him holding Eliquis for now. Please advise. Thanks. [facility] Office Visiton 08-08-2023 Follow-up visit [id number] Hanna Beckman 1955 M Date Provider Department Center 08/08/2023 [id number], MAMTA BH CARD [facility] Family History Problem Relation Age of Onset Stroke Mother Family Status - Relation Status Age at Mother Level of Service:94555 AR OFFICE/OUTPATIENT ESTABLISHED [facility] 30 MIN Reason for Visit and Comments: Follow-up [122946] - 1 year Normal [facility] Jason 06-21-2023 CNPN Telephone (RADTSA) PABLO BECKMAN ([id number]) 1955 M Date Time Provider Department 06/21/23 [...] (HCC) [C61] Order(s):PSA/PROSTSPECAG DIAG [SQPSA] Order #: [id number] FUTURE Prescriptions as of 06/22/2023 - valACYclovir [...] Status:Closed by Quinton GONZÁLES on 06/21/23 Normal [facility] Lab Reportson 06-15-2023 Lab Reports [id number] Normal [facility] Physician Referralon 024 Physician Referral [id number]#[id number] [facility] CNPNon 05-23-2023 CNPN Telephone (RADTSA) PABLO BECKMAN ([id number]) 1955 Date Time Provider Department 05/23/23 Quinton GONZÁLES RADTSA During your visit today, we recorded the following information about you: Josefina Anderson RN 05/23/2023 9:44 AM Signed PT called in to schedule follow up for this year. He will also need PSA. Please sign pended order and we will fax to [facility]. Josefina Anderson RN Allergies As of Date: 05/23/2023 (No Known Allergies) Date Reviewed: 06/24/2020 Reviewed by: Felecia Benites - Fully Assessed Reason for Visit: Future Appointment [256] Primary Visit Diagnosis:Malignant neoplasm of prostate (HCC) [C61] Order(s):PSA/PROSTSPECAG DIAG [SQPSA] Order #: [id number] FUTURE Prescriptions as of 05/23/2023 - valACYclovir [...] Status:Closed by Quinton GONZÁLES on 05/23/23 Normal [facility] SARS-CoV-2 (COVID-19) RNA ISIDRO+probe Ql (Unsp spec) Not detected Normal NOT DETECTED [facility] Comment on above: Result Comment: This test is not yet approved or cleared by the [place] FDA. When there are no FDA-approved or cleared tests available, and other criteria are met, FDA can make tests available under an emergency access mechanism called an Emergency Use Authorization (EUA). The EUA for this test is supported by the Dimension Specification Inspector of Health and Human Service's (HHS's) declaration [...] T BASIM, Royer, FELICIANO, EMILY, CMP #### [facility] [address] [place], [place] [address] Dr. Emely Adrian CBC AUTO DIFFon 03-09-2022 BASO # 0.0 103/ul Normal 0.0-0.1 [facility] Comment on above: Performed By: #### T SH, T7, LIPA, EMILY, CMP #### [facility] [address] [place] [address] Dr. Emely Adrian Basophils/100 WBC (Bld) 0.1 % Critically low 0.2-2.0 [facility] Comment on above: Performed By: #### T SH, T7, LIPA, EMILY, CMP #### [facility] [address] [place] [address] Dr. Emely Adrian EO # 0.2 103/ul Normal 0.0-0.7 [facility] Comment on above: Performed By: #### T SH, T7, LIPA, EMILY, CMP #### [facility] [address] [place] [address] Dr. Emely Adrian Eosinophils/100 WBC (Bld) 3.2 % Normal 0.9-7.0 [facility] Comment on above: Performed By: #### T SH, T7, LIPA, EMILY, CMP #### [facility] [address] [place] [address] Dr. Emely Adrian Erythrocyte distribution width (RBC) [Ratio] 15.8 % Critically high 11.0-15.0 [facility] Comment on above: Performed By: #### T SH, T7, LIPA, EMILY, CMP #### [facility] [address] [place] [address] Dr. Emely Adrian Hematocrit (Bld) [Volume fraction] 26.6 % Critically low 42.0-54.0 [facility] Comment on above: Performed By: #### T SH, T7, LIPA, EMILY, CMP #### [facility] [address] [place] [address] Dr. Emely Adrian Hemoglobin (Bld) [Mass/Vol] 9.0 g/dL Critically low 14.0-18.0 [facility] Comment on above: Performed By: #### T SH, T7, LIPA, EMILY, CMP #### [facility] [address] [place] [address] Dr. Emely Adrian IG # 0.05 10e3/ul Critically high 0.00-0.03 [facility] Comment on above: Performed By: #### T SH, T7, LIPA, EMILY, CMP #### [facility] [address] [place] [address] Dr. Emely Adrian IG % 0.7 % Critically high 0.0-0.5 [facility] Comment on above: Performed By: #### T SH, T7, LIPA, EMILY, CMP #### [facility] [address] [place] [address] Dr. Emely Adrian LYMPH # 1.8 103/ul Normal 1.2-3.8 [facility] Comment on above: Performed By: #### T SH, T7, LIPA, EMILY, CMP #### [facility] [address] [place] [address] Dr. Emely Adrian Lymphocytes/100 WBC (Bld) 24.2 % Normal 20.5-60.0 [facility] Comment on above: Performed By: #### T SH, T7, LIPA, EMILY, CMP #### [facility] [address] [place] [address] Dr. Emely Adrian MANUAL DIFF REQ NO Normal [facility] Comment on above: Performed By: #### T SH, T7, LIPA, EMILY, CMP #### [facility] [address] [place] [address] Dr. Emely Adrian MCH (RBC) [Entitic mass] 32.7 pg Normal 25.9-34.0 [facility] Comment on above: Performed By: #### T SH, T7, LIPA, EMILY, CMP #### [facility] [address] [place] [address] Dr. Emely Adrian MCHC (RBC) [Mass/Vol] 33.8 g/dL Normal 29.9-35.2 [facility] Comment on above: Performed By: #### T SH, T7, LIPA, EMILY, CMP #### [facility] [address] [place] [address] Dr. Emely Adrian MCV (RBC) [Entitic vol] 96.7 fL Critically high 80.0-94.0 [facility] Comment on above: Performed By: #### T SH, T7, LIPA, EMILY, CMP #### [facility] [address] [place] [address] Dr. Emely Adrian MONO # 1.3 103/ul Critically high 0.3-0.8 [facility] Comment on above: Performed By: #### T SH, T7, LIPA, EMILY, CMP #### [facility] [address] [place] [address] Dr. Emely Adrian Monocytes/100 WBC (Bld) 18.0 % Critically high 1.7-12.0 [facility] Comment on above: Performed By: #### T SH, T7, LIPA, EMILY, CMP #### [facility] [address] [place] [address] Dr. Emely Adrian NEUT # 4.0 103/ul Normal 1.4-6.5 [facility] Comment on above: Performed By: #### T SH, T7, LIPA, EMILY, CMP #### [facility] [address] [place] [address] Dr. Emely Adrian Neutrophils/100 WBC (Bld) 53.8 % Normal 43.0-75.0 [facility] Comment on above: Performed By: #### T SH, T7, LIPA, EMILY, CMP #### [facility] [address] [place] [address] Dr. Emely Adrian Platelet mean volume (Bld) [Entitic vol] 8.7 fL Critically low 9.5-13.5 [facility] Comment on above: Performed By: #### T SH, T7, LIPA, EMILY, CMP #### [facility] [address] [place] [address] Dr. Emely Adrian PLT 320 103/ul Normal 150-450 [facility] Comment on above: Performed By: #### T SH, T7, LIPA, EMILY, CMP #### [facility] [address] [place] [address] Dr. Emely Adrian RBC 2.75 106/ul Critically low 4.70-6.10 [facility] Comment on above: Performed By: #### T SH, T7, LIPA, EMILY, CMP #### [facility] [address] [place] [address] Dr. Emely Adrian WBC 7.5 103/ul Normal 4.0-11.0 [facility] Comment on above: Performed By: #### T SH, T7, LIPA, EMILY, CMP #### [facility] [address] [place] [address] Dr. Emely Adrian LACTATE/LACTIC ACIDon 2021 Lactate [Moles/Vol] 0.7 mmol/L Normal 0.4-1.9 [facility] Comment on above: Performed By: #### T SH, T7, LIPA, EMILY, CMP #### [facility] [address] [place] [address] Dr. Emely Adrian LIPASEon 03-09-2022 Lipase [Catalytic activity/Vol] 386.0 U/L Normal 73.0-393.0 [facility] Comment on above: Performed By: #### C BC #### [facility] [address] [place] [address] Dr. Emely Adrian PROF 14(COMP METB)on 022 Albumin [Mass/Vol] 2.9 g/dL Critically low 3.4-5.0 [facility] Comment on above: Performed By: #### C MP #### [facility] [address] [place] [address] Dr. Emely Adrian Albumin/Globulin [Mass ratio] 0.7 {ratio} Normal [facility] Comment on above: Performed By: #### C MP #### [facility] [address] [place] [address] Dr. Emely Adrian ALP [Catalytic activity/Vol] 43 U/L Critically low 46-116 [facility] Comment on above: Performed By: #### C MP #### [facility] [address] [place] [address] Dr. Emely Adrian ALT [Catalytic activity/Vol] 23 U/L Normal 16-63 [facility] Comment on above: Performed By: #### C MP #### [facility] [address] [place] [address] Dr. Emely Adrian Anion gap [Moles/Vol] 13.4 mmol/L Normal [facility] Comment on above: Performed By: #### C MP #### [facility] [address] [place] [address] [address] Emely Adrian AST [Catalytic activity/Vol] 21 U/L Normal 15-37 [facility] Comment on above: Performed By: #### C MP #### [facility] [address] [place] [address] [address] Emely Adrian Bilirubin [Mass/Vol] 0.4 mg/dL Normal 0.2-1.0 [facility] Comment on above: Performed By: #### C MP #### [facility] [address] [place] [address] Dr. Emely Adrian Calcium [Mass/Vol] 8.3 mg/dL Critically low 8.5-10.1 [facility] Comment on above: Performed By: #### C MP #### [facility] [address] [address] [address] Emely Adrian Chloride [Moles/Vol] 104 mmol/L Normal 98-107 [facility] Comment on above: Performed By: #### C MP #### [facility] [address] [address] [address] Emely Adrian CO2 [Moles/Vol] 22.9 mmol/L Normal 21.0-32.0 [facility] Comment on above: Performed By: #### C MP #### [facility] [address] [address] [address] Emely Adrian Creatinine [Mass/Vol] 1.80 mg/dL Critically high 0.70-1.30 [facility] Comment on above: Performed By: #### C MP #### [facility] [address] [place] [address] Dr. Emely Adrian EGFR-AF PALAUAN 46 mL/min/1.73m2 Critically low >=60 [facility] Comment on above: Performed By: #### C MP #### [facility] [address] [place] [address] Dr. Emely Adrian EGFR-NON AF PALAUAN 38 mL/min/1.73m2 Critically low >=60 [facility] Comment on above: Performed By: #### C MP #### [facility] [address] [place] [address] Dr. Emely Adrian Globulin (S) [Mass/Vol] 4.3 g/dL Normal [facility] Comment on above: Performed By: #### C MP #### [facility] [address] [address] [address] Emely Adrian Glucose [Mass/Vol] 105 mg/dL Normal 74-106 [facility] Comment on above: Performed By: #### C MP #### [facility] [address] [place] [address] Dr. Emely Adrian Potassium [Moles/Vol] 4.3 mmol/L Normal 3.5-5.1 [facility] Comment on above: Performed By: #### C MP #### [facility] [address] [place] [address] Dr. Emely Adrian Protein [Mass/Vol] 7.2 g/dL Normal 6.4-8.2 [facility] Comment on above: Performed By: #### C MP #### [facility] [address] [place] [address] Dr. Emely Adrian Sodium [Moles/Vol] 136 mmol/L Normal 136-145 [facility] Comment on above: Performed By: #### C MP #### [facility] [address] [place] [address] Dr. Emely Adrian Urea nitrogen [Mass/Vol] 35.0 mg/dL Critically high 7.0-18.0 [facility] Comment on above: Performed By: #### C MP #### [facility] [address] [place] [address] Dr. Emely Adrian Urea nitrogen/Creatinin e [Mass ratio] 19.4 mg/mg Normal [facility] Comment on above: Performed By: #### C MP #### [facility] [address] [place] [address] Dr. Emely Adrian PROTIMEon 03-09-2022 INR Coag (PPP) [Relative time] 1.12 {INR} Normal [facility] Comment on above: Performed By: #### P TT, PT #### [facility] [address] [place] [address] Dr. Emely Adrian INR GUIDELINES SEE BELOW Normal [facility] Comment on above: Result Comment: DUSTIN RED INR: 2.0 - 3.0 CONDITIONS NOT LISTED BELOW 2.5 - 3.5 FOR PROSTHETIC HEART VALVE REPLACEMENT 2.5 - 3.5 RECURRENT THROMBOSIS Performed By: #### P TT, PT #### [facility] [address] [place] [address] Dr. Emely Adrian PT Coag (PPP) [Time] 12.0 s Critically high 9.0-11.6 [facility] Comment on above: Performed By: #### P TT, PT #### [facility] [address] [place] [address] Dr. Emely Adrian PTTon 03-09-2022 aPTT Coag (Bld) [Time] 32.1 s Normal 22.3-36.2 [facility] Comment on above: Performed By: #### P TT, PT #### [facility] [address] [place] [address] Dr. Emely Adrian TROPONIN, HIGH SENSITIVITYon 03-09-2022 HSTROP 12.0 pg/mL Normal 4.0-76.1 [facility] Comment on above: Result Comment: CUT- OFF POINTS HAVE BEEN ESTABLISHED BASED ON THE FOURTH UNIVERSAL DEFINITIONS OF MYOCARDIAL INFARCTION. THE UPPER REFERENCE LIMIT (URL) OF TROPONIN, DEFINED THE 99TH PERCENTILE OF cTnI DISTRIBUTION IN A REFERENCE POPULATION, HAS BEEN CONFIRMED THE DECISION THRESHOLD FOR AR DIAGNOSIS. Performed By: #### T SH, T7, LIPA, EMILY, CMP #### [facility] [address] [place] [address] Dr. Emely Adrian TYPE AND SCREENon 03-09-2022 TYPE AND SCREEN Negative Normal [facility] Comment on above: Performed By: #### T SH, T7, LIPA, EMILY, CMP #### [facility] [address] [place] [address] Dr. Emely Adrian XR CHEST 1 Von [...] by: PATRICIO ANTON Date: 2022-03-09 10:17 Normal [facility] CA 19-9on 02-26-2022 CA 19-9 4 U/mL Normal 0-35 [facility] Comment on above: Result Comment: [employer] Electrochemiluminescence Immunoassay (ECLIA) . Values obtained with different assay methods or kits cannot be used interchangeably. Results cannot be interpreted as absolute evidence of the presence or absence of malignant disease. Performed By: #### T SH, T7, LIPA, EMILY, CMP #### [facility] [address] [address] [address] Emely Adrian CEAon 02-26-2022 CEA 1.9 ng/mL Normal 0.0-4.7 [facility] Comment on above: Result Comment: Nons mokers <3.9 Smokers <5.6 . [employer] Electrochemiluminescence Immunoassay (ECLIA) . Values obtained with different assay methods or kits cannot be used interchangeably. Results cannot be interpreted as absolute evidence of the presence or absence of malignant disease. Performed By: #### T SH, T7, LIPA, EMILY, CMP #### [facility] [address] [place] [address] Dr. Emely Adrian H PYLORI ANTIBODY IGGon 02-08 H. PYLORI IGG ABS 1.19 Index Value Critically high 0.00-0. 79 [facility] Comment on above: Result Comment: Nega tive <0.80 Equivocal 0.80 - 0.89 Positive >0.89 Performed By: #### C BC #### [facility] [address] [place] [address] Dr. Emely Adrian AMYLASEon 02-25-2022 Amylase [Catalytic activity/Vol] 118 U/L Critically high 25-115 [facility] Comment on above: Performed By: #### T SH, T7, LIPA, EMILY, CMP #### [facility] [address] [place] [address] Dr. Emely Adrian CBC AUTO DIFFon 02-25-2022 BASO # 0.0 103/ul Normal 0.0-0.1 [facility] Comment on above: Performed By: #### T SH, T7, LIPA, EMILY, CMP #### [facility] [address] [place] [address] Dr. Emely Adrian Basophils/100 WBC (Bld) 0.2 % Normal 0.2-2.0 [facility] Comment on above: Performed By: #### T SH, T7, LIPA, EMILY, CMP #### [facility] [address] [place] [address] Dr. Emely Adrian EO # 0.1 103/ul Normal 0.0-0.7 [facility] Comment on above: Performed By: #### T SH, T7, LIPA, EMILY, CMP #### [facility] [address] [place] [address] Dr. Emely Adrian Eosinophils/100 WBC (Bld) 2.8 % Normal 0.9-7.0 [facility] Comment on above: Performed By: #### T SH, T7, LIPA, EMILY, CMP #### [facility] [address] [place] [address] Dr. Emely Adrian Erythrocyte distribution width (RBC) [Ratio] 15.6 % Critically high 11.0-15.0 [facility] Comment on above: Performed By: #### T SH, T7, LIPA, EMILY, CMP #### [facility] [address] [place] [address] Dr. Emely Adrian Hematocrit (Bld) [Volume fraction] 28.9 % Critically low 42.0-54.0 [facility] Comment on above: Performed By: #### T SH, T7, LIPA, EMILY, CMP #### [facility] [address] [place] [address] Dr. Emely Adrian Hemoglobin (Bld) [Mass/Vol] 9.5 g/dL Critically low 14.0-18.0 [facility] Comment on above: Performed By: #### T SH, T7, LIPA, EMILY, CMP #### [facility] [address] [place] [address] Dr. Emely Adrian IG # 0.04 10e3/ul Critically high 0.00-0.03 [facility] Comment on above: Performed By: #### T SH, T7, LIPA, EMILY, CMP #### [facility] [address] [place] [address] Dr. Emely Adrian IG % 0.9 % Critically high 0.0-0.5 [facility] Comment on above: Performed By: #### T SH, T7, LIPA, EMILY, CMP #### [facility] [address] [place] [address] Dr. Emely Adrian LYMPH # 1.3 103/ul Normal 1.2-3.8 [facility] Comment on above: Performed By: #### T SH, T7, LIPA, EMILY, CMP #### [facility] [address] [place] [address] Dr. Emely Adrian Lymphocytes/100 WBC (Bld) 29.6 % Normal 20.5-60.0 [facility] Comment on above: Performed By: #### T SH, T7, LIPA, EMILY, CMP #### [facility] [address] [place] [address] Dr. Emely Adrian MANUAL DIFF REQ NO Normal [facility] Comment on above: Performed By: #### T SH, T7, LIPA, EMILY, CMP #### [facility] [address] [place] [address] Dr. Emely Adrian MCH (RBC) [Entitic mass] 32.1 pg Normal 25.9-34.0 [facility] Comment on above: Performed By: #### T SH, T7, LIPA, EMILY, CMP #### [facility] [address] [place] [address] Dr. Emely Adrian MCHC (RBC) [Mass/Vol] 32.9 g/dL Normal 29.9-35.2 [facility] Comment on above: Performed By: #### T SH, T7, LIPA, EMILY, CMP #### [facility] [address] [place] [address] Dr. Emely Adrian MCV (RBC) [Entitic vol] 97.6 fL Critically high 80.0-94.0 [facility] Comment on above: Performed By: #### T SH, T7, LIPA, EMILY, CMP #### [facility] [address] [place] [address] Dr. Emely Adrian MONO # 0.8 103/ul Normal 0.3-0.8 [facility] Comment on above: Performed By: #### T SH, T7, LIPA, EMILY, CMP #### [facility] [address] [place] [address] Dr. Emely Adrian Monocytes/100 WBC (Bld) 17.2 % Critically high 1.7-12.0 [facility] Comment on above: Performed By: #### T SH, T7, LIPA, EMILY, CMP #### [facility] [address] [place] [address] Dr. Emley Adrian NEUT # 2.2 103/ul Normal 1.4-6.5 [facility] Comment on above: Performed By: #### T SH, T7, LIPA, EMILY, CMP #### [facility] [address] [place] [address] Dr. Emely Adrian Neutrophils/100 WBC (Bld) 49.3 % Normal 43.0-75.0 [facility] Comment on above: Performed By: #### T SH, T7, LIPA, EMILY, CMP #### [facility] [address] [place] [address] Dr. Emely Adrian Platelet mean volume (Bld) [Entitic vol] 9.2 fL Critically low 9.5-13.5 [facility] Comment on above: Performed By: #### T SH, T7, LIPA, EMILY, CMP #### [facility] [address] [place] [address] Dr. Emely Adrian PLT 259 103/ul Normal 150-450 [facility] Comment on above: Performed By: #### T SH, T7, LIPA, EMILY, CMP #### [facility] [address] [place] [address] Dr. Emely Adrian RBC 2.96 106/ul Critically low 4.70-6.10 [facility] Comment on above: Performed By: #### T SH, T7, LIPA, EMILY, CMP #### [facility] [address] [place] [address] Dr. Emely Adrian WBC 4.4 103/ul Normal 4.0-11.0 [facility] Comment on above: Performed By: #### T SH, T7, LIPA, EMILY, CMP #### [facility] [address] [place] [address] Dr. Emely Adrian FREE THYROXINE INDEX T7on FTI 1.80 Normal 1.30-4.50 [facility] Comment on above: Performed By: #### T SH, T7, LIPA, EMILY, CMP #### [facility] [address] [place] [address] Dr. Emely Adrian T3U 34.0 % Normal 33.0-40.0 [facility] Comment on above: Performed By: #### T SH, T7, LIPA, EMILY, CMP #### [facility] [address] [place] [address] Dr. Emely Adrian T4 [Mass/Vol] 5.30 ug/dL Normal 4.50-12.10 [facility] Comment on above: Performed By: #### T SH, T7, LIPA, EMILY, CMP #### [facility] [address] [place] [address] Dr. Emely Adrian GI PANEL (PCR)on 02-25-2022 Adenovirus F 40/41 Not detected Normal NOT DETECTED [facility] Comment on above: Performed By: #### G IPANEL #### [facility] [address] [place] [address] Dr. Emely Adrian Astrovirus Not detected Normal NOT DETECTED [facility] Comment on above: Performed By: #### G IPANEL #### [facility] [address] [place] [address] Dr. Emely Adrian C. Diff toxin A/B Not detected Normal NOT DETECTED [facility] Comment on above: Performed By: #### G IPANEL #### [facility] [address] [place] [address] Dr. Emely Adrian Campylobacter Not detected Normal NOT DETECTED [facility] Comment on above: Performed By: #### G IPANEL #### [facility] [address] [place] [address] Dr. Emely Adrian Cryptosporidium Not detected Normal NOT DETECTED [facility] Comment on above: Performed By: #### G IPANEL #### [facility] [address] [place] [address] Dr. Emely Adrian Cyclos. Cayetanensis Not detected Normal NOT DETECTED [facility] Comment on above: Performed By: #### G IPANEL #### [facility] [address] [place] [address] Dr. Emely Adrian E. Coli O157 Not Applicable Normal Not Applicable [facility] Comment on above: Performed By: #### G IPANEL #### [facility] [address] [place] [address] Dr. Emely Adrian E. histolytica Not detected Normal NOT DETECTED [facility] Comment on above: Performed By: #### G IPANEL #### [facility] [address] [place] [address] Dr. Emely Adrian EAEC Not detected Normal NOT DETECTED [facility] Comment on above: Performed By: #### G IPANEL #### [facility] [address] [place] [address] Dr. Emely Adrian EIEC Not detected Normal NOT DETECTED [facility] Comment on above: Performed By: #### G IPANEL #### [facility] [address] [place] [address] Dr. Emely Adrian EPEC Not detected Normal NOT DETECTED [facility] Comment on above: Performed By: #### G IPANEL #### [facility] [address] [place] [address] Dr. Emely Adrian ETEC Not detected Normal NOT DETECTED [facility] Comment on above: Performed By: #### G IPANEL #### [facility] [address] [address] [address] Emely Olsen Lamblia Not detected Normal NOT DETECTED [facility] Comment on above: Performed By: #### G IPANEL #### [facility] [address] [address] [address] Emely STODDARD CONTROLS PASSED Normal [facility] Comment on above: Performed By: #### G IPANEL #### [facility] [address] [address] [address] Emely RODRIGUEZ MARY HEADER GI PANEL BACTERIA Normal T [facility] Comment on above: Performed By: #### G IPANEL #### [facility] [address] [address] [address] Emely KAHN ECOLI GI PANEL DIARRHEAGEN IC E.COLI / SHIGELLA Normal [facility] Comment on above: Performed By: #### G IPANEL #### [facility] [address] [address] [address] Emely KAHN INFO SEE BELOW Normal [facility] Comment on above: Result Comment: EAEC - Enteroaggregative E. Coli EPEC- Enteropathogenic E. Coli ETEC- Enterotoxigenic E. Coli lt/st STEC- Shigella-like toxin-producing E. Coli stx1/stx2 EIEC- Shigella/Enteroinvasive E. Coli Performed By: #### G IPANEL #### [facility] [address] [place] [address] Dr. Emely KAHN PARASITES GI PANEL PARASITES Normal [facility] Comment on above: Performed By: #### G IPANEL #### [facility] [address] [address] [address] Emely KAHN VIRUS GI PANEL VIRUSES Normal [facility] Comment on above: Performed By: #### G IPANEL #### [facility] [address] [address] [address] Emely Adrian Norovirus GI/GII Not detected Normal NOT DETECTED [facility] Comment on above: Performed By: #### G IPANEL #### [facility] [address] [address] [address] Emely Adrian P. Shigelloides Not detected Normal NOT DETECTED [facility] Comment on above: Performed By: #### G IPANEL #### [facility] [address] [address] [address] Emely Adrian Rotavirus A Not detected Normal NOT DETECTED [facility] Comment on above: Performed By: #### G IPANEL #### [facility] [address] [address] [address] Emely Adrian Salmonella Not detected Normal NOT DETECTED [facility] Comment on above: Performed By: #### G IPANEL #### [facility] [address] [place] [address] Dr. Emely Adrian Sapovirus Not detected Normal NOT DETECTED [facility] Comment on above: Performed By: #### G IPANEL #### [facility] [address] [place] [address] Dr. Emely Adrian STEC Not detected Normal NOT DETECTED [facility] Comment on above: Performed By: #### G IPANEL #### [facility] [address] [address] [address] Emely Adrian Vibrio Not detected Normal NOT DETECTED [facility] Comment on above: Performed By: #### G IPANEL #### [facility] [address] [place] [address] Dr. Emely Adrian Vibrio Cholera Not detected Normal NOT DETECTED [facility] Comment on above: Performed By: #### G IPANEL #### [facility] [address] [place] [address] Dr. Emely Adrian Y. Enterocolitica Not detected Normal NOT DETECTED [facility] Comment on above: Performed By: #### G IPANEL #### [facility] [address] [place] [address] Dr. Emely Adrian GLYCOHEMOGLOBIN A1Con 2021 ADA RECOMMENDATION SEE BELOW Normal [facility] Comment on above: Result Comment: ADA RECOMMENDED LIMIT 4.0 - 6.0 ADA THERAPEUTIC TARGET < 7.0 ACTION SUGGESTED > 7.0 Performed By: #### T SH, T7, LIPA, EMILY, CMP #### [facility] [address] [address] [address] Emely Adrian Glucose [Mass/Vol] 120 mg/dL Normal [facility] Comment on above: Performed By: #### T SH, T7, LIPA, EMILY, CMP #### [facility] [address] [place] [address] Dr. Emely Adrian HbA1c (Bld) [Mass fraction] 5.8 % Normal 4.5-6.2 [facility] Comment on above: Performed By: #### T SH, T7, LIPA, EMILY, CMP #### [facility] [address] [place] [address] Dr. Emely Adrian IRONon 02-25-2022 Iron [Mass/Vol] 55.0 ug/dL Critically low 65.0-175.0 [facility] Comment on above: Performed By: #### C BC #### [facility] [address] [place] [address] Dr. Emely Adrian LIPASEon 02-25-2022 Lipase [Catalytic activity/Vol] 671.0 U/L Critically high 73.0-393.0 [facility] Comment on above: Performed By: #### T SH, T7, LIPA, EMILY, CMP #### [facility] [address] [place] [address] Dr. Emely Adrian OCC BLD IMMUNO SCREENon 02-08 OCCULT BLOOD Positive Abnormal NEGATIVE [facility] Comment on above: Performed By: #### T SH, T7, LIPA, EMILY, CMP #### [facility] [address] [place] [address] Dr. Emely Adrian PROF 14(COMP METB)on 022 Albumin [Mass/Vol] 3.0 g/dL Critically low 3.4-5.0 [facility] Comment on above: Performed By: #### T SH, T7, LIPA, EMILY, CMP #### [facility] [address] [place] [address] Dr. Emely Adrian Albumin/Globulin [Mass ratio] 0.8 {ratio} Normal [facility] Comment on above: Performed By: #### T SH, T7, LIPA, EMILY, CMP #### [facility] [address] [place] [address] Dr. Emely Adrian ALP [Catalytic activity/Vol] 58 U/L Normal 46-116 [facility] Comment on above: Performed By: #### T SH, T7, LIPA, EMILY, CMP #### [facility] [address] [place] [address] Dr. Emely Adrian ALT [Catalytic activity/Vol] 25 U/L Normal 16-63 [facility] Comment on above: Performed By: #### T SH, T7, LIPA, EMILY, CMP #### [facility] [address] [place] [address] Dr. Emely Adrian Anion gap [Moles/Vol] 12.1 mmol/L Normal [facility] Comment on above: Performed By: #### T SH, T7, LIPA, EMILY, CMP #### [facility] [address] [place] [address] Dr. Emely Adrian AST [Catalytic activity/Vol] 20 U/L Normal 15-37 [facility] Comment on above: Performed By: #### T SH, T7, LIPA, EMILY, CMP #### [facility] [address] [place] [address] Dr. Emely Adrian Bilirubin [Mass/Vol] 0.2 mg/dL Normal 0.2-1.0 [facility] Comment on above: Performed By: #### T SH, T7, LIPA, EMILY, CMP #### [facility] [address] [place] [address] Dr. Emely Adrian Calcium [Mass/Vol] 8.3 mg/dL Critically low 8.5-10.1 [facility] Comment on above: Performed By: #### T SH, T7, LIPA, EMILY, CMP #### [facility] [address] [place] [address] Dr. Emely Adrian Chloride [Moles/Vol] 108 mmol/L Critically high 98-107 [facility] Comment on above: Performed By: #### T SH, T7, LIPA, EMILY, CMP #### [facility] [address] [place] [address] Dr. Emely Adrian CO2 [Moles/Vol] 24.5 mmol/L Normal 21.0-32.0 [facility] Comment on above: Performed By: #### T SH, T7, LIPA, EMILY, CMP #### [facility] [address] [place] [address] Dr. Emely Adrian Creatinine [Mass/Vol] 0.97 mg/dL Normal 0.70-1.30 [facility] Comment on above: Performed By: #### T SH, T7, LIPA, EMILY, CMP #### [facility] [address] [place] [address] Dr. Emely Adrian EGFR-AF PALAUAN >60 Normal >=60 [facility] Comment on above: Performed By: #### T SH, T7, LIPA, EMILY, CMP #### [facility] [address] [place] [address] Dr. Emely Adrian EGFR-NON AF PALAUAN >60 Normal >=60 [facility] Comment on above: Performed By: #### T SH, T7, LIPA, EMILY, CMP #### [facility] [address] [place] [address] Dr. Emely Adrian Globulin (S) [Mass/Vol] 3.8 g/dL Normal [facility] Comment on above: Performed By: #### T SH, T7, LIPA, EMILY, CMP #### [facility] [address] [place] [address] Dr. Emely Adrian Glucose [Mass/Vol] 97 mg/dL Normal 74-106 [facility] Comment on above: Performed By: #### T SH, T7, LIPA, EMILY, CMP #### [facility] [address] [place] [address] Dr. Emely Adrian Potassium [Moles/Vol] 4.6 mmol/L Normal 3.5-5.1 [facility] Comment on above: Performed By: #### T SH, T7, LIPA, EMILY, CMP #### [facility] [address] [place] [address] Dr. Emely Adrian Protein [Mass/Vol] 6.8 g/dL Normal 6.4-8.2 [facility] Comment on above: Performed By: #### T SH, T7, LIPA, EMILY, CMP #### [facility] [address] [place] [address] Dr. Emely Adrian Sodium [Moles/Vol] 140 mmol/L Normal 136-145 [facility] Comment on above: Performed By: #### T SH, T7, LIPA, EMILY, CMP #### [facility] [address] [place] [address] Dr. Emely Adrian Urea nitrogen [Mass/Vol] 20.0 mg/dL Critically high 7.0-18.0 [facility] Comment on above: Performed By: #### T SH, T7, LIPA, EMILY, CMP #### [facility] [address] [place] [address] Dr. Emely Adrian Urea nitrogen/Creatinin e [Mass ratio] 20.6 mg/mg Normal [facility] Comment on above: Performed By: #### T SH, T7, LIPA, EMILY, CMP #### [facility] [address] [place] [address] Dr. Emely Adrian TSHon 02-25-2022 TSH 1.247 uIU/mL Normal 0.358-3.740 [facility] Comment on above: Performed By: #### T SH, T7, LIPA, EMILY, CMP #### [facility] [address] [place] [address] Dr. Emely Adrian VITAMIN D 25 OHon 02-25-2022 VIT D 25-OH 23.9 ng/mL Normal [facility] Comment on above: Performed By: #### C BC #### [facility] [address] [place] [address] Dr. Emely Adrian VIT D RANGES SEE BELOW Normal [facility] Comment on above: Result Comment: <20 ng/mL Vit D deficient 20 - <30 ng/mL Vit D insufficient 30 - 100 ng/mL Vit D sufficient >100 ng/mL Potential Toxicity Performed By: #### C BC #### [facility] [address] [address] [address] Emely Adrian CREATININEon 12-30-2021 Creatinine [Mass/Vol] 1.21 mg/dL Normal 0.70-1.30 [facility] Comment on above: Performed By: #### T SH, T7, LIPA, EMILY, CMP #### [facility] [address] [address] [address] Emely Adrian EGFR-AF PALAUAN >60 Normal >=60 [facility] Comment on above: Performed By: #### T SH, T7, LIPA, EMILY, CMP #### [facility] [address] [address] [address] Emely Adrian EGFR-NON AF PALAUAN =60 Normal >=60 [facility] Comment on above: Performed By: #### T SH, T7, LIPA, EMILY, CMP #### [facility] [address] [place] [address] CHEST WO W [...] by: KIRK CRUZ Date: 2021-12-30 08:46 Normal [facility] NM STRESS/REST MULTIon 11-09 NM STRESS/REST MULTI Patient: PABLO BECKMAN Exam Date: 11/09/2021 : 1955 Gender:M Ordering : DR LV HEARD . Admission #: [id number] Family : Order #: [id number] CLICK HERE TO VIEW EXAM RADIOLOGY REPORT [...] Cruz M.D. on 11/09/2021 at 14:17 Normal [facility] CARDIAC PHILIP 3-6on 2 CK [Catalytic activity/Vol] 114 U/L Normal 39-308 [facility] Comment on above: Performed By: #### T SH, T7, LIPA, EMILY, CMP #### [facility] [address] [place] [address] Dr. Emely Adrian CK.MB [Mass/Vol] 1.75 ng/mL Normal <=3.60 [facility] Comment on above: Performed By: #### T SH, T7, LIPA, EMILY, CMP #### [facility] [address] [place] [address] Dr. Emely Adrian HSTROP 10.8 pg/mL Normal 4.0-76.1 [facility] Comment on above: Result Comment: CUT- OFF POINTS HAVE BEEN ESTABLISHED BASED ON THE FOURTH UNIVERSAL DEFINITIONS OF MYOCARDIAL INFARCTION. THE UPPER REFERENCE LIMIT (URL) OF TROPONIN, DEFINED THE 99TH PERCENTILE OF cTnI DISTRIBUTION IN A REFERENCE POPULATION, HAS BEEN CONFIRMED THE DECISION THRESHOLD FOR AR DIAGNOSIS. Performed By: #### T SH, T7, LIPA, EMILY, CMP #### [facility] [address] [place] [address] Dr. Emely Adrian CK [Catalytic activity/Vol] 122 U/L Normal 39-308 [facility] Comment on above: Performed By: #### T SH, T7, LIPA, EMILY, CMP #### [facility] [address] [place] [address] Dr. Emely Adrian CK.MB [Mass/Vol] 2.59 ng/mL Normal <=3.60 [facility] Comment on above: Performed By: #### T SH, T7, LIPA, EMILY, CMP #### [facility] [address] [place] [address] Dr. Emely Adrian HSTROP 10.5 pg/mL Normal 4.0-76.1 [facility] Comment on above: Result Comment: CUT- OFF POINTS HAVE BEEN ESTABLISHED BASED ON THE FOURTH UNIVERSAL DEFINITIONS OF MYOCARDIAL INFARCTION. THE UPPER REFERENCE LIMIT (URL) OF TROPONIN, DEFINED THE 99TH PERCENTILE OF cTnI DISTRIBUTION IN A REFERENCE POPULATION, HAS BEEN CONFIRMED THE DECISION THRESHOLD FOR AR DIAGNOSIS. Performed By: #### T SH, T7, LIPA, EMILY, CMP #### [facility] [address] [place] [address] Dr. Emely Adrian CK [Catalytic activity/Vol] 130 U/L Normal 39-308 [facility] Comment on above: Performed By: #### C BC #### [facility] [address] [address] [address] Emely Adrian CK.MB [Mass/Vol] 2.10 ng/mL Normal <=3.60 [facility] Comment on above: Performed By: #### C BC #### [facility] [address] [address] [address] Emely Adrian HSTROP 10.2 pg/mL Normal 4.0-76.1 [facility] Comment on above: Result Comment: CUT- OFF POINTS HAVE BEEN ESTABLISHED BASED ON THE FOURTH UNIVERSAL DEFINITIONS OF MYOCARDIAL INFARCTION. THE UPPER REFERENCE LIMIT (URL) OF TROPONIN, DEFINED THE 99TH PERCENTILE OF cTnI DISTRIBUTION IN A REFERENCE POPULATION, HAS BEEN CONFIRMED THE DECISION THRESHOLD FOR AR DIAGNOSIS. Performed By: #### C BC #### [facility] [address] [place] [address] Dr. Emely Adrian CARDIAC PHILIP ADMITon 022 CK [Catalytic activity/Vol] 164 U/L Normal 39-308 [facility] Comment on above: Performed By: #### C BC #### [facility] [address] [address] [address] Emely Adrian CK.MB [Mass/Vol] 3.38 ng/mL Normal <=3.60 [facility] Comment on above: Performed By: #### C BC #### [facility] [address] [address] [address] Emely Adrian HSTROP 9.5 pg/mL Normal 4.0-76.1 [facility] Comment on above: Result Comment: CUT- OFF POINTS HAVE BEEN ESTABLISHED BASED ON THE FOURTH UNIVERSAL DEFINITIONS OF MYOCARDIAL INFARCTION. THE UPPER REFERENCE LIMIT (URL) OF TROPONIN, DEFINED THE 99TH PERCENTILE OF cTnI DISTRIBUTION IN A REFERENCE POPULATION, HAS BEEN CONFIRMED THE DECISION THRESHOLD FOR AR DIAGNOSIS. Performed By: #### C BC #### [facility] [address] [address] [address] Emely Adrian ADY 124 ng/mL Critically high 16-96 [facility] Comment on above: Performed By: #### C BC #### [facility] [address] [place] [address] Dr. Emely Adrian CBC AUTO DIFFon 10-27-2021 BASO # 0.0 103/ul Normal 0.0-0.1 [facility] Comment on above: Performed By: #### C BC #### [facility] [address] [place] [address] Dr. Emely Adrian Basophils/100 WBC (Bld) 0.1 % Critically low 0.2-2.0 [facility] Comment on above: Performed By: #### C BC #### [facility] [address] [place] [address] Dr. Emely Adrian EO # 0.3 103/ul Normal 0.0-0.7 [facility] Comment on above: Performed By: #### C BC #### [facility] [address] [place] [address] Dr. Emely Adrian Eosinophils/100 WBC (Bld) 3.2 % Normal 0.9-7.0 [facility] Comment on above: Performed By: #### C BC #### [facility] [address] [place] [address] Dr. Emely Adrian Erythrocyte distribution width (RBC) [Ratio] 13.6 % Normal 11.0-15.0 [facility] Comment on above: Performed By: #### C BC #### [facility] [address] [place] [address] Dr. Emely Adrian Hematocrit (Bld) [Volume fraction] 32.2 % Critically low 42.0-54.0 [facility] Comment on above: Performed By: #### C BC #### [facility] [address] [place] [address] Dr. Emely Adrian Hemoglobin (Bld) [Mass/Vol] 10.5 g/dL Critically low 14.0-18.0 [facility] Comment on above: Performed By: #### C BC #### [facility] [address] [place] [address] Dr. Emely Adrian IG # 0.05 10e3/ul Critically high 0.00-0.03 [facility] Comment on above: Performed By: #### C BC #### [facility] [address] [address] [address] Emely Adrian IG % 0.6 % Critically high 0.0-0.5 [facility] Comment on above: Performed By: #### C BC #### [facility] [address] [address] [address] Emely Adrian LYMPH # 1.7 103/ul Normal 1.2-3.8 [facility] Comment on above: Performed By: #### C BC #### [facility] [address] [place] [address] Dr. Emely Adrian Lymphocytes/100 WBC (Bld) 19.7 % Critically low 20.5-60.0 [facility] Comment on above: Performed By: #### C BC #### [facility] [address] [place] [address] Dr. Emely Adrian MANUAL DIFF REQ NO Normal [facility] Comment on above: Performed By: #### C BC #### [facility] [address] [place] [address] Dr. Emely Adrian MCH (RBC) [Entitic mass] 31.7 pg Normal 25.9-34.0 [facility] Comment on above: Performed By: #### C BC #### [facility] [address] [place] [address] Dr. Emely Adrian MCHC (RBC) [Mass/Vol] 32.6 g/dL Normal 29.9-35.2 [facility] Comment on above: Performed By: #### C BC #### [facility] [address] [place] [address] Dr. Emely Adrian MCV (RBC) [Entitic vol] 97.3 fL Critically high 80.0-94.0 [facility] Comment on above: Performed By: #### C BC #### [facility] [address] [place] [address] Dr. Emely Adrian MONO # 1.0 103/ul Critically high 0.3-0.8 [facility] Comment on above: Performed By: #### C BC #### [facility] [address] [place] [address] Dr. Emely Adrian Monocytes/100 WBC (Bld) 12.4 % Critically high 1.7-12.0 [facility] Comment on above: Performed By: #### C BC #### [facility] [address] [place] [address] Dr. Emely Adrian NEUT # 5.4 103/ul Normal 1.4-6.5 [facility] Comment on above: Performed By: #### C BC #### [facility] [address] [place] [address] Dr. Emely Adrian Neutrophils/100 WBC (Bld) 64.0 % Normal 43.0-75.0 [facility] Comment on above: Performed By: #### C BC #### [facility] [address] [place] [address] Dr. Emely Adrian Platelet mean volume (Bld) [Entitic vol] 9.2 fL Critically low 9.5-13.5 [facility] Comment on above: Performed By: #### C BC #### [facility] [address] [place] [address] Dr. Emely Adrian PLT 417 103/ul Normal 150-450 [facility] Comment on above: Performed By: #### C BC #### [facility] [address] [place] [address] Dr. Emely Adrian RBC 3.31 106/ul Critically low 4.70-6.10 [facility] Comment on above: Performed By: #### C BC #### [facility] [address] [place] [address] Dr. Emely Adrian WBC 8.4 103/ul Normal 4.0-11.0 [facility] Comment on above: Performed By: #### C BC #### [facility] [address] [place] [address] Dr. Emely Adrian CTA CHEST WO W [...] KIRK CRUZ Date: 2021-10-27 06:37 Normal [facility]09 SARS-CoV-2 (COVID-19) RNA ISIDRO+probe Ql (Unsp spec) Not detected Normal NOT DETECTED [facility] Comment on above: Result Comment: When [...] for this test is supported by the Dimension Specification Inspector of Health and Human Service's declaration that [...] T BASIM, T7, EMILY WIGGINS, CMP #### [facility] Laboratory [address] [address] [address] Emely Adrian D-DIMERon 10-27-2021 D-DIMER 2.19 mg/L FEU Critically high <=0.59 [facility] Comment on above: Performed By: #### T BASIM, T7, EMILY WIGGINS, CMP #### [facility] Laboratory [address] [address] [address] Emely Adrian D-DIMER COMMENTS SEE BELOW Normal [facility] Comment on above: Result Comment: Incr [...] T BASIM, Royer, EMILY WIGGINS, CMP #### [facility] [address] [address] [address] Emely Adrian DIGOXINon 10-27-2021 DIG <0.2 Critically low 0.9-2.0 [facility] Comment on above: Performed By: #### T BASIM, T7, EMILY WIGGINS, CMP #### [facility] Laboratory [address] [address] [address] Emely Adrian ECHOCARDIO M/2D COMPLETEon 0 10-27-2021 ECHOCARDIO M/2D COMPLETE Patient: PABLO BECKMAN Exam Date: 10/27/2021 : 1955 Gender:M Ordering : DR LV HEARD . Admission #: [id number] Family : Order #: [id number] CLICK HERE TO VIEW EXAM ECHOCARDIOGRAM REPORT [...] M.D. on 10/27/2021 at 17:01 Normal [facility] LACTATE/LACTIC ACIDon 2021 Lactate [Moles/Vol] 0.5 mmol/L Normal 0.4-1.9 [facility] Comment on above: Performed By: #### T SH, T7, LIPA, EMILY, CMP #### [facility] [address] [address] [address] Emely Adrian Lactate [Moles/Vol] 0.5 mmol/L Normal 0.4-1.9 [facility] Comment on above: Performed By: #### C BC #### [facility] [address] [place], [place] [address] Dr. Emely Adrian PROF CHEM 8 ([facility] MET[facility])on Anion gap [Moles/Vol] 15.3 mmol/L Normal [facility] Comment on above: Performed By: #### C BC #### [facility] Laboratory [address] [address] [address] Emely Adrian Calcium [Mass/Vol] 9.1 mg/dL Normal 8.5-10.1 [facility] Comment on above: Performed By: #### C BC #### [facility] [address] [address] [address] Emely Adrian Chloride [Moles/Vol] 105 mmol/L Normal 98-107 [facility] Comment on above: Performed By: #### C BC #### [facility] [address] [place] [address] Dr. Emely Adrian CO2 [Moles/Vol] 26.6 mmol/L Normal 21.0-32.0 [facility] Comment on above: Performed By: #### C BC #### [facility] [address] [place] [address] Dr. Emely Adrian Creatinine [Mass/Vol] 1.29 mg/dL Normal 0.70-1.30 [facility] Comment on above: Performed By: #### C BC #### [facility] [address] [place] [address] Dr. Emely Adrian EGFR-AF PALAUAN >60 Normal >=60 [facility] Comment on above: Performed By: #### C BC #### [facility] [address] [place] [address] Dr. Emely Adrian EGFR-NON AF PALAUAN 56 mL/min/1.73m2 Critically low >=60 [facility] Comment on above: Performed By: #### C BC #### [facility] [address] [address] [address] Emely Adrian Glucose [Mass/Vol] 100 mg/dL Normal 74-106 [facility] [place] [facility] Comment on above: Performed By: #### C BC #### [facility] [address] [place] [address] Dr. Emely Adrian Potassium [Moles/Vol] 3.9 mmol/L Normal 3.5-5.1 [facility] Comment on above: Performed By: #### C BC #### [facility] [address] [place], [place] [address] Dr. Emely Adrian Sodium [Moles/Vol] 143 mmol/L Normal 136-145 [facility] Comment on above: Performed By: #### C BC #### [facility] [address] [place], [place] [address] Dr. Emely Adrian Urea nitrogen [Mass/Vol] 28.0 mg/dL Critically high 7.0-18.0 [facility] Comment on above: Performed By: #### C BC #### [facility] [address] [place], [place] [address] Dr. Emely Adrian Urea nitrogen/Creatinin e [Mass ratio] 21.7 mg/mg Normal [facility] Comment on above: Performed By: #### C BC #### [facility] [address] [place], [place] [address] Dr. Emely Adrian XR CHEST 1 Von [...] KARLY SAID Date: 2021-10-27 04:41 Normal [facility] Cardiovascular Lab Reporton 04-09-2021 Cardiovascular Lab Report [facility] Patient Name: Pablo Beckman [facility] MR #: [id number] Physician: Mamta Stephenson, Department of SEISMOLOGY TEACHER Medicine Service Date: 04/07/2021 Division of Birthdate: 1955 Cardiology Room #: CC Adult [facility] Services [address] [address] Cardiovascular Laboratory Report DATE OF PROCEDURE; 04/07/2021 [...] Weeks MD Date Trans: 04/09/2021 11:17 A/ [id number] Normal [facility] Encounters Encounter [...] with patient Quinton Gonzáles MD Work Phone: [employer] Start: 06-23-2022 End: 06-24-2022 ambulatory LV Hoskins ROSEHarley Facility:[facility] Start: 06-22-2022 Telephone encounter Quinton Gonzáles MD Work Phone: Radiation Oncology Comment on above: Patient Question Start: 06-02-2022 End: 06-03-[address] JT GONZÁLES Facility:[facility] Start: 03-29-2022 End: 03-29-2022 Patient encounter procedure Patricio BEAUCHAMP General Surgery Nito/Alecia Yanez Start: 03-19-2022 Encounter for preprocedural laboratory examination DR PATRICIO Rosario [facility] Start: 03-18-2022 End: 03-18-[address] [...] TSH, T7, EMILY WIGGINS C MP #### [facility] [address] [place] [address] Dr. Emely Adrian Start: 03-18-2022 Colonoscopy Patricio [employer] Start: 03-18-2022 Esophagogastroduodenoscopy Patricio [employer] Start: 10-17-2018 Colonoscopy Patricio [email or web address] Start: 09-11-2009 Colonoscopy Patricio NILL Amputation of finger, except thumb Patricio JUAN[employer] Arthroscopy of shoulder Meng george JUANL Implantation of radi oactive seed into prostate Patricio [employer] Open reduction of fr acture with internal fixation Patricio [employer] Comment on above: right leg Umbilical herniorrha phy using surgical sutures Patricio [employer] Plan of Treatment Date Care Activity Detail [...] of prostate (HCC) Expected: 06/12/2024, Expires: 09/11/2024 [facility] Work Phone: Comment on above: Expected: 06/12/2024 , Expires: 09/11/2024 Start: 05-23-2023 End: 08-22-2023 Prostate specific Ag [Mass/volume] in Serum or Plasma PSA/PROSTSPECAG DIAG Lab Routine Malignant neoplasm of prostate (HCC) Expected: 05/23/2023, Expires: 08/22/2023 [facility] Work Phone: Comment on above: Expected: [...] Center Start: [address] COLONOGRAPHY [facility] Start: 2001 DIABETES SCREEN DIABETES SCREEN [facility] Start: 2001 Diabetes Screening Diabetes Screenin g [facility] Start: 2001 FECAL OCCULT BLOOD FECAL OCCULT BLOO D [facility] Start: 2001 Screening for malign ant neoplasm of colon [facility] Start: 2001 SIGMOIDOSCOPY SIGMOIDOSCOPY [facility] Start: 10-21-1991 Lipid panel Lipid Screening [facility] Start: 10-21-1991 LIPID SCREEN LIPID SCREEN [facility] Start: 10-21-1975 Urine microalbumin profile [facility] Start: 1974 HEPATITIS C SCREENING HEPATITIS C [facility] Start: 1974 Hepatitis C screening Hepatitis C [facility] Start: 1974 HIV SCREENING HIV SCREENING [facility] Start: 1955 ABDOMINAL AORTIC ANEURYSM SCREENING ABDOMINAL AORTIC ANEURYSM SCREENING [facility] Start: 1955 Abdominal aortic aneurysm screening Abdominal Aortic Aneurysm Screening [facility] Immunizations Immunization Date Immunization Notes Care Provider Christian marte NEGATED: Highlighted row has not occurred!03-08-2022 influenza virus vaccine, unspecified formulation Patricio BEAUCHAMP General [facility] [place] Payers Date Payer Category Payer Medicare DEVOTED MEDICARE [facility] [id number] 2023-Present [phone] [address] [place] [address] O [id number] 2023 Unknown [id number] 2022 Private Health Insurance [facility] CHOICE PLUS [id number] 2022-Present [phone] [address] [place] [address] O [id number] 2006 Unknown [facility] GENERIC [id number] 2006-Present [phone] [place] [address] [id number] 1959 Unknown [id number] 1959 Unknown [id number] 1955 Unknown [id number] 1955 Unknown [id number] .[id number] 1955 Unknown [id number] .[id number] 1955 Unknown [id number] .[id number] 1955 Unknown [id number] .2.593 1955 Unknown [id number] .2.593 1955 Unknown [id number] .2.593 1955 Unknown [id number] .[id number] 1955 Unknown [id number] .[id number] Social History Date Type Detail Facility Start: 06-24-2020 End: 03-08-2022 Tobacco smoking status Ex-smoker (finding) [facility] Tobacco smoking status Never [facility] Start: 06-24-2020 End: 06-23-2022 Sex Assigned At Male Eduin Kumar [facility] End: 06-10-1989 History of tobacco use Current smoker [facility] End: 06-10-1989 History of tobacco use Cigarette Smoker [facility] Start: 06-24-2020 End: 06-23-2022 Cigarettes smoked current (pack per day) - Reported 1.5 [facility] Start: 06-24-2020 Tobacco use and exposure Smokeless tobacco non-user [facility] Start: 06-24-2020 Alcohol intake Not [facility]ked [facility] Start: 1955 Sex Assigned At Not on file C [facility] Notes 03-18-2022 to 08-08-2023 Telephone Encounter - Latisha Rojas LPN - 06/21/2023 2:40 PM EDTTelephone Encounter - Josefina Anderson RN - 05/23/2023 9:43 AM ESTG Isidoro Gonzáles MD - 06/23/2022 10:11 AM EDT Note Date & Type Note Facility 08-08-2023 Note Cardiovascular Medic [facility] SUBJECTIVE Chief Complaint Patient presents [...] he cuts himself at work. 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 He denies any changes since last seen [...] pended order and we will fax to [facility]. Josefina Anderson, RN documented in this encounter [facility] 06-23-2022 Note HNO ID: [id number] Author: Quinton Gonzáles MD Service: ? Author [...] Time Spent: 6 minutes Quinton Gonzáles MD [facility] 06-23-2022 History of Presen t illness Narrative AMBULATORY TELEPHONE VISIT Pabol Beckman has consented to this telephone encounter. [...] good condition. CC: Lv Heard M.D. [facility] Evaluation + Plan note No data available for this section [facility] [place] Evaluation note Diagnosis Malignant neoplasm of prostate (HCC)- Primary Malignant neoplasm of prostate [facility] Diagnosis Malignant neoplasm of prostate (HCC)- Primary Malignant neoplasm of prostate documented in this encounter [facility] note* Diagnosis Malignant neoplasm of prostate (HCC)- Primary Malignant neoplasm of prostate documented in this encounter [facility] Discharge instructions No data available for this section [facility] [place] Progress note No data available for this section [facility] Surgery [place] Summary Purpose Family History No Family History [...] and content) DATE CREATED AUTHOR 04/15/2021 [facility] DATE CREATED AUTHOR AUTHOR'S ORGANIZ ATION 08/08/2022 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 [employer] [facility]. provides no warranty or guarantee of the accuracy or completeness of information in this document.
[2024-05-09 10:07] LABS: Internal Control Within Normal Limits; Occult Blood Positive
== END 2024-05-09 09:09 | disposition home or self-care (01) ==
LOC: LAB 09:08
PROVIDERS: PCP Family Medicine; Visit Provider Family Medicine
DX: R07.9 Chest pain, unspecified (principal); I10 Essential (primary) hypertension; I48.0 Paroxysmal atrial fibrillation; E78.5 Hyperlipidemia, unspecified; Z12.12 Encounter for screening for malignant neoplasm of rectum; R73.09 Other abnormal glucose; Z12.5 Encounter for screening for malignant neoplasm of prostate
CPT/HCPCS: G0328

== ENCOUNTER 2024-05-28 06:53 | Outpatient (OUT) | payer MEDICARE, SELFPAY ==
--- NOTE | 2024-05-28 | PCN_ITS ---
CARDIAC STRESS TEST Requesting Physician: Guillermo Heard M.D. Procedure Date: 05/28/2024 PERFORMING PROVIDER: Lynsey Weeks M.D. REASON FOR TEST: Chest pain, shortness of breath. Resting EKG: Normal sinus rhythm, minimal voltage criteria for LVH. Resting heart rate: 67 Peak heart rate: 136 Peak maximal heart percentage: 88% Resting blood pressure: 124/80 Peak blood pressure: 180/88 Exercise time: 4 minutes 22 seconds Stage reached: 2 Max METS: 7 Reason for termination: Target heart rate achieved, fatigue. Heart rate recovery: Normal. CRI: Normal. Functional capacity: Average Blood pressure response: Normal ST changes: Patient had horizontal ST changes in inferior and inferolateral leads meeting the criteria for ischemia. CONCLUSION: 1. Resting EKG demonstrates normal sinus rhythm with minimal voltage criteria for LVH. 2. There were ST changes in the inferolateral leads concerning for ischemia. 3. There was significant PVC burden. 4. Clinical correlation advised. 5. Nuclear imaging to be interpreted and reported in a separate report. Please refer to this report for additional information. MTDD
--- NOTE | 2024-05-28 06:40 | NM_ITS ---
Patient Name: PABLO ROBERTS MR#: [id number] : 1955 Exam Date: 05/28/2024 Ordering Doctor: DR Guillermo Heard . RADIOLOGY REPORT PROCEDURE: NM ADY PERF SPECT REST STR COMPARISON: None. INDICATIONS: DYSPNEA ON EXERTION, FATIGUE TECHNIQUE: Exam Description: Stress/Rest one day protocol gated SPECT Rest Imagin.9 mCi Tc-99m Cardiolite IV on 05/28/2024 Stress Imaging 30.4 mCi Tc-99m Cardiolite IV on 05/28/2024 Exercise Protocol: Jaxon Heart Rate (bpm): Rest: 67 Max: 136 PMHR: 88 Blood Pressure: Rest: 124/80 Max: 180/88 Symptoms: Rest and peak stress ECG findings were pending and the exercise portion of the study was pending per attending physician Dr. MARTIN . For more details, please see separate cardiac stress test report. FINDINGS: QUALITY OF STUDY: Good PERFUSION DEFECT: LOCATION: Basal lateral and inferior SIZE: Small, small to moderate SEVERITY: Mild TYPE: Lateral defect is reversible, inferior defect is fixed WALL MOTION: No wall motion abnormalities LV SIZE: 115 mL TID / TCD: 0.9 LVEF: Calculated EF 53%. SUMMARY: Myocardial perfusion imaging study is abnormal CONCLUSION: 1. Myocardial perfusion study is abnormal 2. A reversible basal lateral perfusion defect suggestive of ischemia is seen 3. A fixed inferior defect likely represents diaphragmatic attenuation 4. No evidence of transient ischemic dilatation 5. Global left ventricular systolic function is lower normal limits; calculated ejection fraction is 53% 6. The electrocardiographic portion of the stress test is to be reported separately Dictated by: Magdalena Stark M.D. on 05/28/2024 at 13:29 Approved by: Magdalena Stark M.D. on 05/28/2024 at 13:36
--- OUTSIDE RECORDS SUMMARY | 2024-05-28 07:01 | XMS_ITS | CCD ---
Author Organization [facility] Care Team Providers Care Dredge Engineer Name Role Phone MAMTA STEPHENSON Attending Unavailable SELF, REFERRED Primary Care Unavailable SELF, REFERRED Referring Unavailable MAMTA STEPHENSON Admitting Unavailable Lv Heard Primary Care Physician Lv Heard MD Primary Care Provider [phone] CURRY Admitting Unavailable [...] QID, # 120 tab(s), Refills(s) 3, Pharmacy: [id number], 177.8, cm, 03/08/22 15:41:00 EST, Height/Length Dosing, [...] 06-10-2014 Episodic Other aftercare (1 source) 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 [facility] 36 Yes, recommend roni ng Eliquis until seen by GI and clearance from them that he can resume. We can ask Dr. Heard to comment if he recommends patient for Watchman and to note this in his office note. Thanks [facility] 36 Dr. Heard's office maddi led asking for recommendations for Eliquis hold s/p significant red blood in stools. He was seen in [facility] ED on 12/05. I have uploaded records into remediation project engineer for your review. There's no discharge summary or H&P. Just an ED report. Dr. Heard's office said Dr. Heard has him holding Eliquis for now. Please advise. Thanks. [facility] Office Visiton 08-08-2023 Follow-up visit [id number] Hanna Beckman 1955 M Date Provider Department Center 08/08/2023 [id number], MAMTA BH CARD [facility] Family History Problem Relation Age of Onset Stroke Mother Family Status - Relation Status Age at Mother Level of Service:10565 CO OFFICE/OUTPATIENT ESTABLISHED MOD [facility] 30 MIN Reason for Visit and Comments: Follow-up [394801] - 1 year Normal [facility] Jason 06-21-2023 CNPN Telephone (RADTSA) PABLO BECKMAN ([id number]) 1955 M Date Time Provider Department 06/21/23 [...] (HCC) [C61] Order(s):PSA/PROSTSPECAG DIAG [SQPSA] Order #: [id number] FUTURE Prescriptions as of 06/22/2023 - valACYclovir [...] Status:Closed by Quinton GONZÁLES on 06/21/23 Normal [facility] Reportson 06-15-2023 Lab Reports [id number] Normal [facility] Physician Referralon 024 Physician Referral [id number]#[id number] [facility] CNPNon 05-23-2023 CNPN Telephone (RADTSA) PABLO BECKMAN ([id number]) 1955 Date Time Provider Department 05/23/23 Quinton GONZÁLES RADTSA During your visit today, we recorded the following information about you: Josefina Anderson RN 05/23/2023 9:44 AM Signed PT called in to schedule follow up for this year. He will also need PSA. Please sign pended order and we will fax to [facility]. Josefina Anderson RN Allergies As of Date: 05/23/2023 (No Known Allergies) Date Reviewed: 06/24/2020 Reviewed by: Felecia Benites - Fully Assessed Reason for Visit: Future Appointment [256] Primary Visit Diagnosis:Malignant neoplasm of prostate (HCC) [C61] Order(s):PSA/PROSTSPECAG DIAG [SQPSA] Order #: [id number] FUTURE Prescriptions as of 05/23/2023 - valACYclovir [...] Status:Closed by Quinton GONZÁLES on 05/23/23 Normal [facility] SARS-CoV-2 (COVID-19) RNA ISIDRO+probe Ql (Unsp spec) Not detected Normal NOT DETECTED [facility] Comment on above: Result Comment: This test is not yet approved or cleared by the [place] FDA. When there are no FDA-approved or cleared tests available, and other criteria are met, FDA can make tests available under an emergency access mechanism called an Emergency Use Authorization (EUA). The EUA for this test is supported by the [employer] Consultant of Health and Human Service's (HHS's) declaration [...] T BASIM, Royer, FELICIANO, EMILY, CMP #### [facility] [address], [place] [address] Dr. mEely Adrian CBC AUTO DIFFon 03-09-2022 BASO # 0.0 103/ul Normal 0.0-0.1 [facility] Comment on above: Performed By: #### T SH, T7, LIPA, EMILY, CMP #### [facility] [address] [place] [address] Dr. Emely Adrian Basophils/100 WBC (Bld) 0.1 % Critically low 0.2-2.0 [facility] Comment on above: Performed By: #### T SH, T7, LIPA, EMILY, CMP #### [facility] [address] [place] [address] Dr. Emely Adrian EO # 0.2 103/ul Normal 0.0-0.7 [facility] Comment on above: Performed By: #### T SH, T7, LIPA, EMILY, CMP #### [facility] [address] [place] [address] Dr. Emely Adrian Eosinophils/100 WBC (Bld) 3.2 % Normal 0.9-7.0 [facility] Comment on above: Performed By: #### T SH, T7, LIPA, EMILY, CMP #### [facility] [address] [place] [address] Dr. Emely Adrian Erythrocyte distribution width (RBC) [Ratio] 15.8 % Critically high 11.0-15.0 [facility] Comment on above: Performed By: #### T SH, T7, LIPA, EMILY, CMP #### [facility] [address] [place] [address] Dr. Emely Adrian Hematocrit (Bld) [Volume fraction] 26.6 % Critically low 42.0-54.0 [facility] Comment on above: Performed By: #### T SH, T7, LIPA, EMILY, CMP #### [facility] [address] [place] [address] Dr. Emely Adrian Hemoglobin (Bld) [Mass/Vol] 9.0 g/dL Critically low 14.0-18.0 [facility] Comment on above: Performed By: #### T SH, T7, LIPA, EMILY, CMP #### [facility] [address] [place] [address] Dr. Emely Adrian IG # 0.05 10e3/ul Critically high 0.00-0.03 [facility] Comment on above: Performed By: #### T SH, T7, LIPA, EMILY, CMP #### [facility] [address] [place] [address] Dr. Emely Adrian IG % 0.7 % Critically high 0.0-0.5 [facility] Comment on above: Performed By: #### T SH, T7, LIPA, EMILY, CMP #### [facility] [address] [place] [address] Dr. Emely Adrian LYMPH # 1.8 103/ul Normal 1.2-3.8 [facility] Comment on above: Performed By: #### T SH, T7, LIPA, EMILY, CMP #### [facility] [address] [place] [address] Dr. Emely Adrian Lymphocytes/100 WBC (Bld) 24.2 % Normal 20.5-60.0 [facility] Comment on above: Performed By: #### T SH, T7, LIPA, EMILY, CMP #### [facility] [address] [place] [address] Dr. Emely Adrian MANUAL DIFF REQ NO Normal [facility] Comment on above: Performed By: #### T SH, T7, LIPA, EMILY, CMP #### [facility] [address] [place] [address] Dr. Emely Adrian MCH (RBC) [Entitic mass] 32.7 pg Normal 25.9-34.0 [facility] Comment on above: Performed By: #### T SH, T7, LIPA, EMILY, CMP #### [facility] [address] [place] [address] Dr. Emely Adrian MCHC (RBC) [Mass/Vol] 33.8 g/dL Normal 29.9-35.2 [facility] Comment on above: Performed By: #### T SH, T7, LIPA, EMILY, CMP #### [facility] [address] [place] [address] Dr. Emely Adrian MCV (RBC) [Entitic vol] 96.7 fL Critically high 80.0-94.0 [facility] Comment on above: Performed By: #### T SH, T7, LIPA, EMILY, CMP #### [facility] [address] [place] [address] Dr. Emely Adrian MONO # 1.3 103/ul Critically high 0.3-0.8 [facility] Comment on above: Performed By: #### T SH, T7, LIPA, EMILY, CMP #### [facility] [address] [place] [address] Dr. Emely Adrian Monocytes/100 WBC (Bld) 18.0 % Critically high 1.7-12.0 [facility] Comment on above: Performed By: #### T SH, T7, LIPA, EMILY, CMP #### [facility] [address] [place] [address] Dr. Emely Adrian NEUT # 4.0 103/ul Normal 1.4-6.5 [facility] Comment on above: Performed By: #### T SH, T7, LIPA, EMILY, CMP #### [facility] [address] [place] [address] Dr. Emely Adrian Neutrophils/100 WBC (Bld) 53.8 % Normal 43.0-75.0 [facility] Comment on above: Performed By: #### T SH, T7, LIPA, EMILY, CMP #### [facility] [address] [place] [address] Dr. Emely Adrian Platelet mean volume (Bld) [Entitic vol] 8.7 fL Critically low 9.5-13.5 [facility] Comment on above: Performed By: #### T SH, T7, LIPA, EMILY, CMP #### [facility] [address] [place] [address] Dr. Emely Adrian PLT 320 103/ul Normal 150-450 [facility] Comment on above: Performed By: #### T SH, T7, LIPA, EMILY, CMP #### [facility] [address] [place] [address] Dr. Emely Adrian RBC 2.75 106/ul Critically low 4.70-6.10 [facility] Comment on above: Performed By: #### T SH, T7, LIPA, EMILY, CMP #### [facility] [address] [place] [address] Dr. Emely Adrian WBC 7.5 103/ul Normal 4.0-11.0 [facility] Comment on above: Performed By: #### T SH, T7, LIPA, EMILY, CMP #### [facility] [address] [place] [address] Dr. Emely Adrian LACTATE/LACTIC ACIDon 2021 Lactate [Moles/Vol] 0.7 mmol/L Normal 0.4-1.9 [facility] Comment on above: Performed By: #### T SH, T7, LIPA, EMILY, CMP #### [facility] [address] [place] [address] Dr. Emely Adrian LIPASEon 03-09-2022 Lipase [Catalytic activity/Vol] 386.0 U/L Normal 73.0-393.0 [facility] Comment on above: Performed By: #### C BC #### [facility] [address] [place] [address] Dr. Emely Adrian PROF 14(COMP METB)on 022 Albumin [Mass/Vol] 2.9 g/dL Critically low 3.4-5.0 Th [facility] Comment on above: Performed By: #### C MP #### [facility] [address] [place] [address] Dr. Emely Adrian Albumin/Globulin [Mass ratio] 0.7 {ratio} Normal [facility] Comment on above: Performed By: #### C MP #### [facility] [address] [place] [address] Dr. Emely Adrian ALP [Catalytic activity/Vol] 43 U/L Critically low 46-116 [facility] Comment on above: Performed By: #### C MP #### [facility] [address] [place] [address] Dr. Emely Adrian ALT [Catalytic activity/Vol] 23 U/L Normal 16-63 [facility] Comment on above: Performed By: #### C MP #### [facility] [address] [place] [address] Dr. Emely Adrian Anion gap [Moles/Vol] 13.4 mmol/L Normal [facility] Comment on above: Performed By: #### C MP #### [facility] [address] [place] [address] [address] Emely Adrian AST [Catalytic activity/Vol] 21 U/L Normal 15-37 [facility] Comment on above: Performed By: #### C MP #### [facility] [address] [address] [address] Emely Adrian Bilirubin [Mass/Vol] 0.4 mg/dL Normal 0.2-1.0 [facility] Comment on above: Performed By: #### C MP #### [facility] [address] [place] [address] Dr. Emely Adrian Calcium [Mass/Vol] 8.3 mg/dL Critically low 8.5-10.1 Th [facility] Comment on above: Performed By: #### C MP #### [facility] [address] [address] [address] Emely Adrian Chloride [Moles/Vol] 104 mmol/L Normal 98-107 [facility] Comment on above: Performed By: #### C MP #### [facility] [address] [address] [address] Emely Adrian CO2 [Moles/Vol] 22.9 mmol/L Normal 21.0-32.0 [facility] Comment on above: Performed By: #### C MP #### [facility] [address] [address] [address] Emely Adrian Creatinine [Mass/Vol] 1.80 mg/dL Critically high 0.70-1.30 [facility] Comment on above: Performed By: #### C MP #### [facility] [address] [place] [address] Dr. Emely Adrian EGFR-AF HUNGARIAN 46 mL/min/1.73m2 Critically low >=60 [facility] Comment on above: Performed By: #### C MP #### [facility] [address] [place] [address] Dr. Emely Adrian EGFR-NON AF HUNGARIAN 38 mL/min/1.73m2 Critically low >=60 [facility] Comment on above: Performed By: #### C MP #### [facility] [address] [place] [address] Dr. Emely Adrian Globulin (S) [Mass/Vol] 4.3 g/dL Normal [facility] Comment on above: Performed By: #### C MP #### [facility] [address] [address] [address] Emely Adrian Glucose [Mass/Vol] 105 mg/dL Normal 74-106 [facility] Comment on above: Performed By: #### C MP #### [facility] [address] [place] [address] Dr. Emely Adrian Potassium [Moles/Vol] 4.3 mmol/L Normal 3.5-5.1 [facility] Comment on above: Performed By: #### C MP #### [facility] [address] [place] [address] Dr. Emely Adrian Protein [Mass/Vol] 7.2 g/dL Normal 6.4-8.2 [facility] Comment on above: Performed By: #### C MP #### [facility] [address] [place] [address] Dr. Emely Adrian Sodium [Moles/Vol] 136 mmol/L Normal 136-145 [facility] Comment on above: Performed By: #### C MP #### [facility] [address] [place] [address] Dr. Emely Adrian Urea nitrogen [Mass/Vol] 35.0 mg/dL Critically high 7.0-18.0 [facility] Comment on above: Performed By: #### C MP #### [facility] [address] [place] [address] Dr. Emely Adrian Urea nitrogen/Creatinin e [Mass ratio] 19.4 mg/mg Normal [facility] Comment on above: Performed By: #### C MP #### [facility] [address] [place] [address] Dr. Emely Adrian PROTIMEon 03-09-2022 INR Coag (PPP) [Relative time] 1.12 {INR} Normal [facility] Comment on above: Performed By: #### P TT, PT #### [facility] [address] [place] [address] Dr. Emely Adrian INR GUIDELINES SEE BELOW Normal [facility] Comment on above: Result Comment: DUSTIN RED INR: 2.0 - 3.0 CONDITIONS NOT LISTED BELOW 2.5 - 3.5 FOR PROSTHETIC HEART VALVE REPLACEMENT 2.5 - 3.5 RECURRENT THROMBOSIS Performed By: #### P TT, PT #### [facility] [address] [place] [address] Dr. Emely Adrian PT Coag (PPP) [Time] 12.0 s Critically high 9.0-11.6 [facility] Comment on above: Performed By: #### P TT, PT #### [facility] [address] [place] [address] Dr. Emely Adrian PTTon 03-09-2022 aPTT Coag (Bld) [Time] 32.1 s Normal 22.3-36.2 [facility] Comment on above: Performed By: #### P TT, PT #### [facility] [address] [place] [address] Dr. Emely Adrian TROPONIN, HIGH SENSITIVITYon 03-09-2022 HSTROP 12.0 pg/mL Normal 4.0-76.1 [facility] Comment on above: Result Comment: CUT- OFF POINTS HAVE BEEN ESTABLISHED BASED ON THE FOURTH UNIVERSAL DEFINITIONS OF MYOCARDIAL INFARCTION. THE UPPER REFERENCE LIMIT (URL) OF TROPONIN, DEFINED THE 99TH PERCENTILE OF cTnI DISTRIBUTION IN A REFERENCE POPULATION, HAS BEEN CONFIRMED THE DECISION THRESHOLD FOR ME DIAGNOSIS. Performed By: #### T SH, T7, LIPA, EMILY, CMP #### [facility] [address] [place] [address] Dr. Emely Adrian TYPE AND SCREENon 03-09-2022 TYPE AND SCREEN Negative Normal [facility] Comment on above: Performed By: #### T SH, T7, LIPA, EMILY, CMP #### [facility] [address] [place] [address] Dr. Emely Adrian XR CHEST 1 Von [...] by: PATRICIO ANTON Date: 2022-03-09 10:17 Normal [facility] CA 19-9on 02-26-2022 CA 19-9 4 U/mL Normal 0-35 [facility] Comment on above: Result Comment: [employer] Electrochemiluminescence Immunoassay (ECLIA) . Values obtained with different assay methods or kits cannot be used interchangeably. Results cannot be interpreted as absolute evidence of the presence or absence of malignant disease. Performed By: #### T SH, T7, LIPA, EMILY, CMP #### [facility] [address] [address] [address] Emely Adrian CEAon 02-26-2022 CEA 1.9 ng/mL Normal 0.0-4.7 [facility] Comment on above: Result Comment: Nons mokers <3.9 Smokers <5.6 . [employer] Electrochemiluminescence Immunoassay (ECLIA) . Values obtained with different assay methods or kits cannot be used interchangeably. Results cannot be interpreted as absolute evidence of the presence or absence of malignant disease. Performed By: #### T SH, T7, LIPA, EMILY, CMP #### [facility] [address] [place] [address] Dr. Emely Adrian H PYLORI ANTIBODY IGGon 02-08 H. PYLORI IGG ABS 1.19 Index Value Critically high 0.00-0. 79 [facility] Comment on above: Result Comment: Nega tive <0.80 Equivocal 0.80 - 0.89 Positive >0.89 Performed By: #### C BC #### [facility] [address] [place] [address] Dr. Emely Adrian AMYLASEon 02-25-2022 Amylase [Catalytic activity/Vol] 118 U/L Critically high 25-115 [facility] Comment on above: Performed By: #### T SH, T7, LIPA, EMILY, CMP #### [facility] [address] [place] [address] Dr. Emely Adrian CBC AUTO DIFFon 02-25-2022 BASO # 0.0 103/ul Normal 0.0-0.1 [facility] Comment on above: Performed By: #### T SH, T7, LIPA, EMILY, CMP #### [facility] [address] [place] [address] Dr. Emely Adrian Basophils/100 WBC (Bld) 0.2 % Normal 0.2-2.0 [facility] Comment on above: Performed By: #### T SH, T7, LIPA, EMILY, CMP #### [facility] [address] [place] [address] Dr. Emely Adrian EO # 0.1 103/ul Normal 0.0-0.7 [facility] Comment on above: Performed By: #### T SH, T7, LIPA, EMILY, CMP #### [facility] [address] [place] [address] Dr. Emely Adrian Eosinophils/100 WBC (Bld) 2.8 % Normal 0.9-7.0 [facility] Comment on above: Performed By: #### T SH, T7, LIPA, EMILY, CMP #### [facility] [address] [place] [address] Dr. Emely Adrian Erythrocyte distribution width (RBC) [Ratio] 15.6 % Critically high 11.0-15.0 [facility] Comment on above: Performed By: #### T SH, T7, LIPA, EMILY, CMP #### [facility] [address] [place] [address] Dr. Emely Adrian Hematocrit (Bld) [Volume fraction] 28.9 % Critically low 42.0-54.0 [facility] Comment on above: Performed By: #### T SH, T7, LIPA, EMILY, CMP #### [facility] [address] [place] [address] Dr. Emely Adrian Hemoglobin (Bld) [Mass/Vol] 9.5 g/dL Critically low 14.0-18.0 [facility] Comment on above: Performed By: #### T SH, T7, LIPA, EMILY, CMP #### [facility] [address] [place] [address] Dr. Emely Adrian IG # 0.04 10e3/ul Critically high 0.00-0.03 [facility] Comment on above: Performed By: #### T SH, T7, LIPA, EMILY, CMP #### [facility] [address] [place] [address] Dr. Emely Adrian IG % 0.9 % Critically high 0.0-0.5 [facility] Comment on above: Performed By: #### T SH, T7, LIPA, EMILY, CMP #### [facility] [address] [place] [address] Dr. Emely Adrian LYMPH # 1.3 103/ul Normal 1.2-3.8 [facility] Comment on above: Performed By: #### T SH, T7, LIPA, EMILY, CMP #### [facility] [address] [place] [address] Dr. Emely Adrian Lymphocytes/100 WBC (Bld) 29.6 % Normal 20.5-60.0 [facility] Comment on above: Performed By: #### T SH, T7, LIPA, EMILY, CMP #### [facility] [address] [place] [address] Dr. Emely Adrian MANUAL DIFF REQ NO Normal [facility] Comment on above: Performed By: #### T SH, T7, LIPA, EMILY, CMP #### [facility] [address] [place] [address] Dr. Emely Adrian MCH (RBC) [Entitic mass] 32.1 pg Normal 25.9-34.0 The [facility] Comment on above: Performed By: #### T SH, T7, LIPA, EMILY, CMP #### [facility] [address] [place] [address] Dr. Emely Adrian MCHC (RBC) [Mass/Vol] 32.9 g/dL Normal 29.9-35.2 [facility] Comment on above: Performed By: #### T SH, T7, LIPA, EMILY, CMP #### [facility] [address] [place] [address] Dr. Emely Adrian MCV (RBC) [Entitic vol] 97.6 fL Critically high 80.0-94.0 [facility] Comment on above: Performed By: #### T SH, T7, LIPA, EMILY, CMP #### [facility] [address] [place] [address] Dr. Emely Adrian MONO # 0.8 103/ul Normal 0.3-0.8 [facility] Comment on above: Performed By: #### T SH, T7, LIPA, EMILY, CMP #### [facility] [address] [place] [address] Dr. Emely Adrian Monocytes/100 WBC (Bld) 17.2 % Critically high 1.7-12.0 [facility] Comment on above: Performed By: #### T SH, T7, LIPA, EMILY, CMP #### [facility] [address] [place] [address] Dr. Emely Adrian NEUT # 2.2 103/ul Normal 1.4-6.5 [facility] Comment on above: Performed By: #### T SH, T7, LIPA, EMILY, CMP #### [facility] [address] [place] [address] Dr. Emely Adrian Neutrophils/100 WBC (Bld) 49.3 % Normal 43.0-75.0 [facility] Comment on above: Performed By: #### T SH, T7, LIPA, EMILY, CMP #### [facility] [address] [place] [address] Dr. Emely Adrian Platelet mean volume (Bld) [Entitic vol] 9.2 fL Critically low 9.5-13.5 [facility] Comment on above: Performed By: #### T SH, T7, LIPA, EMILY, CMP #### [facility] [address] [place] [address] Dr. Emely Adrian PLT 259 103/ul Normal 150-450 [facility] Comment on above: Performed By: #### T SH, T7, LIPA, EMILY, CMP #### [facility] [address] [place] [address] Dr. Emely Adrian RBC 2.96 106/ul Critically low 4.70-6.10 [facility] Comment on above: Performed By: #### T SH, T7, LIPA, EMILY, CMP #### [facility] [address] [place] [address] Dr. Emely Adrian WBC 4.4 103/ul Normal 4.0-11.0 [facility] Comment on above: Performed By: #### T SH, T7, LIPA, EMILY, CMP #### [facility] [address] [place] [address] Dr. Emely Adrian FREE THYROXINE INDEX T7on FTI 1.80 Normal 1.30-4.50 [facility] Comment on above: Performed By: #### T SH, T7, LIPA, EMILY, CMP #### [facility] [address] [place] [address] Dr. Emely Adrian T3U 34.0 % Normal 33.0-40.0 [facility] Comment on above: Performed By: #### T SH, T7, LIPA, EMILY, CMP #### [facility] [address] [place] [address] Dr. Emely Adrian T4 [Mass/Vol] 5.30 ug/dL Normal 4.50-12.10 [facility] Comment on above: Performed By: #### T SH, T7, LIPA, EMILY, CMP #### [facility] [address] [place] [address] Dr. Emely Adrian GI PANEL (PCR)on 02-25-2022 Adenovirus F 40/41 Not detected Normal NOT DETECTED [facility] Comment on above: Performed By: #### G IPANEL #### [facility] [address] [place] [address] Dr. Emely Adrian Astrovirus Not detected Normal NOT DETECTED [facility] Comment on above: Performed By: #### G IPANEL #### [facility] [address] [place] [address] Dr. Emely Adrian C. Diff toxin A/B Not detected Normal NOT DETECTED The [facility] Comment on above: Performed By: #### G IPANEL #### [facility] [address] [place] [address] Dr. Emely Adrian Campylobacter Not detected Normal NOT DETECTED [facility] Comment on above: Performed By: #### G IPANEL #### [facility] [address] [place] [address] Dr. Emely Adrian Cryptosporidium Not detected Normal NOT DETECTED [facility] Comment on above: Performed By: #### G IPANEL #### [facility] [address] [place] [address] Dr. Emely Adrian Cyclos. Cayetanensis Not detected Normal NOT DETECTED The [facility] Comment on above: Performed By: #### G IPANEL #### [facility] [address] [place] [address] Dr. Emely Adrian E. Coli O157 Not Applicable Normal Not Applicable [facility] Comment on above: Performed By: #### G IPANEL #### [facility] [address] [place] [address] Dr. Emely Adrian E. histolytica Not detected Normal NOT DETECTED [facility] Comment on above: Performed By: #### G IPANEL #### [facility] [address] [place] [address] Dr. Emely Adrian EAEC Not detected Normal NOT DETECTED [facility] Comment on above: Performed By: #### G IPANEL #### [facility] [address] [place] [address] Dr. Emely Adrian EIEC Not detected Normal NOT DETECTED [facility] Comment on above: Performed By: #### G IPANEL #### [facility] [address] [place] [address] Dr. Emely Adrian EPEC Not detected Normal NOT DETECTED [facility] Comment on above: Performed By: #### G IPANEL #### [facility] [address] [place] [address] Dr. Emely Adrian ETEC Not detected Normal NOT DETECTED [facility] Comment on above: Performed By: #### G IPANEL #### [facility] [address] [address] [address] Emely Olsen Lamblia Not detected Normal NOT DETECTED [facility] Comment on above: Performed By: #### G IPANEL #### [facility] [address] [address] [address] Emely STODDARD CONTROLS PASSED Normal [facility] Comment on above: Performed By: #### G IPANEL #### [facility] [address] [address] [address] Emely RODRIGUEZ MARY HEADER GI PANEL BACTERIA Normal [facility] Comment on above: Performed By: #### G IPANEL #### [facility] [address] [address] [address] Emely KAHN ECOLI GI PANEL DIARRHEAGEN IC E.COLI / SHIGELLA Normal [facility] Comment on above: Performed By: #### G IPANEL #### [facility] [address] [address] [address] Emely KAHN INFO SEE BELOW Normal The [facility] Comment on above: Result Comment: EAEC - Enteroaggregative E. Coli EPEC- Enteropathogenic E. Coli ETEC- Enterotoxigenic E. Coli lt/st STEC- Shigella-like toxin-producing E. Coli stx1/stx2 EIEC- Shigella/Enteroinvasive E. Coli Performed By: #### G IPANEL #### [facility] [address] [place] [address] Dr. Emely KAHN PARASITES GI PANEL PARASITES Normal [facility] Comment on above: Performed By: #### G IPANEL #### [facility] [address] [address] [address] Emely KAHN VIRUS GI PANEL VIRUSES Normal [facility] Comment on above: Performed By: #### G IPANEL #### [facility] [address] [address] [address] Emely Adrian Norovirus GI/GII Not detected Normal NOT DETECTED The [facility] Comment on above: Performed By: #### G IPANEL #### [facility] [address] [address] [address] Emely Adrian P. Shigelloides Not detected Normal NOT DETECTED [facility] Comment on above: Performed By: #### G IPANEL #### [facility] [address] [address] [address] Emely Adrian Rotavirus A Not detected Normal NOT DETECTED [facility] Comment on above: Performed By: #### G IPANEL #### [facility] [address] [address] [address] Emely Adrian Salmonella Not detected Normal NOT DETECTED [facility] Comment on above: Performed By: #### G IPANEL #### [facility] [address] [place] [address] Dr. Emely Adrian Sapovirus Not detected Normal NOT DETECTED [facility] Comment on above: Performed By: #### G IPANEL #### [facility] [address] [place] [address] Dr. Emely Adrian STEC Not detected Normal NOT DETECTED [facility] Comment on above: Performed By: #### G IPANEL #### [facility] [address] [address] [address] Emely Adrian Vibrio Not detected Normal NOT DETECTED [facility] Comment on above: Performed By: #### G IPANEL #### [facility] [address] [place] [address] Dr. Emely Adrian Vibrio Cholera Not detected Normal NOT DETECTED [facility] Comment on above: Performed By: #### G IPANEL #### [facility] [address] [place] [address] Dr. Emely Adrian Y. Enterocolitica Not detected Normal NOT DETECTED The [facility] Comment on above: Performed By: #### G IPANEL #### [facility] [address] [place] [address] Dr. Emely Adrian GLYCOHEMOGLOBIN A1Con 2021 ADA RECOMMENDATION SEE BELOW Normal [facility] Comment on above: Result Comment: ADA RECOMMENDED LIMIT 4.0 - 6.0 ADA THERAPEUTIC TARGET < 7.0 ACTION SUGGESTED > 7.0 Performed By: #### T SH, T7, LIPA, EMILY, CMP #### [facility] [address] [address] [address] Emely Adrian Glucose [Mass/Vol] 120 mg/dL Normal [facility] Comment on above: Performed By: #### T SH, T7, LIPA, EMILY, CMP #### [facility] [address] [place] [address] Dr. Emely Adrian HbA1c (Bld) [Mass fraction] 5.8 % Normal 4.5-6.2 [facility] Comment on above: Performed By: #### T SH, T7, LIPA, EMILY, CMP #### [facility] [address] [place] [address] Dr. Emely Adrian IRONon 02-25-2022 Iron [Mass/Vol] 55.0 ug/dL Critically low 65.0-175.0 [facility] Comment on above: Performed By: #### C BC #### [facility] [address] [place] [address] Dr. Emely Adrian LIPASEon 02-25-2022 Lipase [Catalytic activity/Vol] 671.0 U/L Critically high 73.0-393.0 [facility] Comment on above: Performed By: #### T SH, T7, LIPA, EMILY, CMP #### [facility] [address] [place] [address] Dr. Emely Adrian OCC BLD IMMUNO SCREENon 02-08 OCCULT BLOOD Positive Abnormal NEGATIVE [facility] Comment on above: Performed By: #### T SH, T7, LIPA, EMILY, CMP #### [facility] [address] [place] [address] Dr. Emely Adrian PROF 14(COMP METB)on 022 Albumin [Mass/Vol] 3.0 g/dL Critically low 3.4-5.0 [facility] Comment on above: Performed By: #### T SH, T7, LIPA, EMILY, CMP #### [facility] [address] [place] [address] Dr. Emely Adrian Albumin/Globulin [Mass ratio] 0.8 {ratio} Normal [facility] Comment on above: Performed By: #### T SH, T7, LIPA, EMILY, CMP #### [facility] [address] [place] [address] Dr. Emely Adrian ALP [Catalytic activity/Vol] 58 U/L Normal 46-116 [facility] Comment on above: Performed By: #### T SH, T7, LIPA, EMILY, CMP #### [facility] [address] [place] [address] Dr. Emely Adrian ALT [Catalytic activity/Vol] 25 U/L Normal 16-63 [facility] Comment on above: Performed By: #### T SH, T7, LIPA, EMILY, CMP #### [facility] [address] [place] [address] Dr. Emely Adrian Anion gap [Moles/Vol] 12.1 mmol/L Normal [facility] Comment on above: Performed By: #### T SH, T7, LIPA, EMILY, CMP #### [facility] [address] [place] [address] Dr. Emely Adrian AST [Catalytic activity/Vol] 20 U/L Normal 15-37 [facility] Comment on above: Performed By: #### T SH, T7, LIPA, EMILY, CMP #### [facility] [address] [place] [address] Dr. Emely Adrian Bilirubin [Mass/Vol] 0.2 mg/dL Normal 0.2-1.0 [facility] Comment on above: Performed By: #### T SH, T7, LIPA, EMILY, CMP #### [facility] [address] [place] [address] Dr. Emely Adrian Calcium [Mass/Vol] 8.3 mg/dL Critically low 8.5-10.1 [facility] Comment on above: Performed By: #### T SH, T7, LIPA, EMILY, CMP #### [facility] [address] [place] [address] Dr. Emely Adrian Chloride [Moles/Vol] 108 mmol/L Critically high 98-107 [facility] Comment on above: Performed By: #### T SH, T7, LIPA, EMILY, CMP #### [facility] [address] [place] [address] Dr. Emely Adrian CO2 [Moles/Vol] 24.5 mmol/L Normal 21.0-32.0 [facility] Comment on above: Performed By: #### T SH, T7, LIPA, EMILY, CMP #### [facility] [address] [place] [address] Dr. Emely Adrian Creatinine [Mass/Vol] 0.97 mg/dL Normal 0.70-1.30 [facility] Comment on above: Performed By: #### T SH, T7, LIPA, EMILY, CMP #### [facility] [address] [place] [address] Dr. Emely Adrian EGFR-AF HUNGARIAN >60 Normal >=60 [facility] Comment on above: Performed By: #### T SH, T7, LIPA, EMILY, CMP #### [facility] [address] [place] [address] Dr. Emely Adrian EGFR-NON AF HUNGARIAN >60 Normal >=60 [facility] Comment on above: Performed By: #### T SH, T7, LIPA, EMILY, CMP #### [facility] [address] [place] [address] Dr. Emely Adrian Globulin (S) [Mass/Vol] 3.8 g/dL Normal [facility] Comment on above: Performed By: #### T SH, T7, LIPA, EMILY, CMP #### [facility] [address] [place] [address] Dr. Emley Adrian Glucose [Mass/Vol] 97 mg/dL Normal 74-106 [facility] Comment on above: Performed By: #### T SH, T7, LIPA, EMILY, CMP #### [facility] [address] [place] [address] Dr. Emely Adrian Potassium [Moles/Vol] 4.6 mmol/L Normal 3.5-5.1 [facility] Comment on above: Performed By: #### T SH, T7, LIPA, EMILY, CMP #### [facility] [address] [place] [address] Dr. Emely Adrian Protein [Mass/Vol] 6.8 g/dL Normal 6.4-8.2 [facility] Comment on above: Performed By: #### T SH, T7, LIPA, EMILY, CMP #### [facility] [address] [place] [address] Dr. Emely Adrian Sodium [Moles/Vol] 140 mmol/L Normal 136-145 [facility] Comment on above: Performed By: #### T SH, T7, LIPA, EMILY, CMP #### [facility] [address] [place] [address] Dr. Emely Adrian Urea nitrogen [Mass/Vol] 20.0 mg/dL Critically high 7.0-18.0 [facility] Comment on above: Performed By: #### T SH, T7, LIPA, EMILY, CMP #### [facility] [address] [place] [address] Dr. Emely Adrian Urea nitrogen/Creatinin e [Mass ratio] 20.6 mg/mg Normal [facility] Comment on above: Performed By: #### T SH, T7, LIPA, EMILY, CMP #### [facility] [address] [place] [address] Dr. Emely Adrian TSHon 02-25-2022 TSH 1.247 uIU/mL Normal 0.358-3.740 [facility] Comment on above: Performed By: #### T SH, T7, LIPA, EMILY, CMP #### [facility] [address] [place] [address] Dr. Emely Adrian VITAMIN D 25 OHon 02-25-2022 VIT D 25-OH 23.9 ng/mL Normal [facility] Comment on above: Performed By: #### C BC #### [facility] [address] [place] [address] Dr. Emely Adrian VIT D RANGES SEE BELOW Normal [facility] Comment on above: Result Comment: <20 ng/mL Vit D deficient 20 - <30 ng/mL Vit D insufficient 30 - 100 ng/mL Vit D sufficient >100 ng/mL Potential Toxicity Performed By: #### C BC #### [facility] [address] [address] [address] Emely Adrian CREATININEon 12-30-2021 Creatinine [Mass/Vol] 1.21 mg/dL Normal 0.70-1.30 [facility] Comment on above: Performed By: #### T SH, T7, LIPA, EMILY, CMP #### [facility] [address] [address] [address] Emely Adrian EGFR-AF HUNGARIAN >60 Normal >=60 [facility] Comment on above: Performed By: #### T SH, T7, LIPA, EMILY, CMP #### [facility] [address] [address] [address] Emely Adrian EGFR-NON AF HUNGARIAN =60 Normal >=60 [facility] Comment on above: Performed By: #### T SH, T7, LIPA, EMILY, CMP #### [facility] [address] [place] [address] CHEST WO W [...] by: KIRK CRUZ Date: 2021-12-30 08:46 Normal [facility] NM STRESS/REST MULTIon 11-09 NM STRESS/REST MULTI Patient: PABLO BECKMAN Exam Date: 11/09/2021 : 1955 Gender:M Ordering : DR LV HEARD . Admission #: [id number] Family : Order #: [id number] CLICK HERE TO VIEW EXAM RADIOLOGY REPORT [...] Cruz M.D. on 11/09/2021 at 14:17 Normal [facility] CARDIAC PHILIP 3-6on 2 CK [Catalytic activity/Vol] 114 U/L Normal 39-308 [facility] Comment on above: Performed By: #### T SH, T7, LIPA, EMILY, CMP #### [facility] [address] [place] [address] Dr. Emely Adrian CK.MB [Mass/Vol] 1.75 ng/mL Normal <=3.60 [facility] Comment on above: Performed By: #### T SH, T7, LIPA, EMILY, CMP #### [facility] [address] [place] [address] Dr. Emely Adrian HSTROP 10.8 pg/mL Normal 4.0-76.1 [facility] Comment on above: Result Comment: CUT- OFF POINTS HAVE BEEN ESTABLISHED BASED ON THE FOURTH UNIVERSAL DEFINITIONS OF MYOCARDIAL INFARCTION. THE UPPER REFERENCE LIMIT (URL) OF TROPONIN, DEFINED THE 99TH PERCENTILE OF cTnI DISTRIBUTION IN A REFERENCE POPULATION, HAS BEEN CONFIRMED THE DECISION THRESHOLD FOR ME DIAGNOSIS. Performed By: #### T SH, T7, LIPA, EMILY, CMP #### [facility] [address] [place] [address] Dr. Emely Adrian CK [Catalytic activity/Vol] 122 U/L Normal 39-308 [facility] Comment on above: Performed By: #### T SH, T7, LIPA, EMILY, CMP #### [facility] [address] [place] [address] Dr. Emely Adrian CK.MB [Mass/Vol] 2.59 ng/mL Normal <=3.60 [facility] Comment on above: Performed By: #### T SH, T7, LIPA, EMILY, CMP #### [facility] [address] [place] [address] Dr. Emely Adrian HSTROP 10.5 pg/mL Normal 4.0-76.1 [facility] Comment on above: Result Comment: CUT- OFF POINTS HAVE BEEN ESTABLISHED BASED ON THE FOURTH UNIVERSAL DEFINITIONS OF MYOCARDIAL INFARCTION. THE UPPER REFERENCE LIMIT (URL) OF TROPONIN, DEFINED THE 99TH PERCENTILE OF cTnI DISTRIBUTION IN A REFERENCE POPULATION, HAS BEEN CONFIRMED THE DECISION THRESHOLD FOR ME DIAGNOSIS. Performed By: #### T SH, T7, LIPA, EMILY, CMP #### [facility] [address] [place] [address] Dr. Emely Adrian CK [Catalytic activity/Vol] 130 U/L Normal 39-308 [facility] Comment on above: Performed By: #### C BC #### [facility] [address] [address] [address] Emely Adrian CK.MB [Mass/Vol] 2.10 ng/mL Normal <=3.60 [facility] Comment on above: Performed By: #### C BC #### [facility] [address] [address] [address] Emely Adrian HSTROP 10.2 pg/mL Normal 4.0-76.1 [facility] Comment on above: Result Comment: CUT- OFF POINTS HAVE BEEN ESTABLISHED BASED ON THE FOURTH UNIVERSAL DEFINITIONS OF MYOCARDIAL INFARCTION. THE UPPER REFERENCE LIMIT (URL) OF TROPONIN, DEFINED THE 99TH PERCENTILE OF cTnI DISTRIBUTION IN A REFERENCE POPULATION, HAS BEEN CONFIRMED THE DECISION THRESHOLD FOR ME DIAGNOSIS. Performed By: #### C BC #### [facility] [address] [place] [address] Dr. Emely Adrian CARDIAC PHILIP ADMITon 022 CK [Catalytic activity/Vol] 164 U/L Normal 39-308 [facility] Comment on above: Performed By: #### C BC #### [facility] [address] [address] [address] Emely Adrian CK.MB [Mass/Vol] 3.38 ng/mL Normal <=3.60 [facility] Comment on above: Performed By: #### C BC #### [facility] [address] [address] [address] Emely Adrian HSTROP 9.5 pg/mL Normal 4.0-76.1 [facility] [facility] Comment on above: Result Comment: CUT- OFF POINTS HAVE BEEN ESTABLISHED BASED ON THE FOURTH UNIVERSAL DEFINITIONS OF MYOCARDIAL INFARCTION. THE UPPER REFERENCE LIMIT (URL) OF TROPONIN, DEFINED THE 99TH PERCENTILE OF cTnI DISTRIBUTION IN A REFERENCE POPULATION, HAS BEEN CONFIRMED THE DECISION THRESHOLD FOR ME DIAGNOSIS. Performed By: #### C BC #### [facility] [address] [address] [address] Emely Adrian ADY 124 ng/mL Critically high 16-96 [facility] Comment on above: Performed By: #### C BC #### [facility] [address] [place] [address] Dr. Emely Adrian CBC AUTO DIFFon 10-27-2021 BASO # 0.0 103/ul Normal 0.0-0.1 [facility] Comment on above: Performed By: #### C BC #### [facility] [address] [place] [address] Dr. Emely Adrian Basophils/100 WBC (Bld) 0.1 % Critically low 0.2-2.0 [facility] Comment on above: Performed By: #### C BC #### [facility] [address] [place] [address] Dr. Emely Adrian EO # 0.3 103/ul Normal 0.0-0.7 [facility] Comment on above: Performed By: #### C BC #### [facility] [address] [place] [address] Dr. Emely Adrian Eosinophils/100 WBC (Bld) 3.2 % Normal 0.9-7.0 [facility] Comment on above: Performed By: #### C BC #### [facility] [address] [place] [address] Dr. Emely Adrian Erythrocyte distribution width (RBC) [Ratio] 13.6 % Normal 11.0-15.0 [facility] Comment on above: Performed By: #### C BC #### [facility] [address] [place] [address] Dr. Emely Adrian Hematocrit (Bld) [Volume fraction] 32.2 % Critically low 42.0-54.0 [facility] Comment on above: Performed By: #### C BC #### [facility] [address] [place] [address] Dr. Emely Adrian Hemoglobin (Bld) [Mass/Vol] 10.5 g/dL Critically low 14.0-18.0 [facility] Comment on above: Performed By: #### C BC #### [facility] [address] [place] [address] Dr. Emely Adrian IG # 0.05 10e3/ul Critically high 0.00-0.03 [facility] Comment on above: Performed By: #### C BC #### [facility] [address] [address] [address] Emely Adrian IG % 0.6 % Critically high 0.0-0.5 [facility] Comment on above: Performed By: #### C BC #### [facility] [address] [address] [address] Emely Adrian LYMPH # 1.7 103/ul Normal 1.2-3.8 [facility] Comment on above: Performed By: #### C BC #### [facility] [address] [place] [address] Dr. Emely Adrian Lymphocytes/100 WBC (Bld) 19.7 % Critically low 20.5-60.0 [facility] Comment on above: Performed By: #### C BC #### [facility] [address] [place] [address] Dr. Emely Adrian MANUAL DIFF REQ NO Normal [facility] Comment on above: Performed By: #### C BC #### [facility] [address] [place] [address] Dr. Emely Adrian MCH (RBC) [Entitic mass] 31.7 pg Normal 25.9-34.0 [facility] Comment on above: Performed By: #### C BC #### [facility] [address] [place] [address] Dr. Emely Adrian MCHC (RBC) [Mass/Vol] 32.6 g/dL Normal 29.9-35.2 [facility] Comment on above: Performed By: #### C BC #### [facility] [address] [place] [address] Dr. Emely Adrian MCV (RBC) [Entitic vol] 97.3 fL Critically high 80.0-94.0 [facility] Comment on above: Performed By: #### C BC #### [facility] [address] [place] [address] Dr. Emely Adrian MONO # 1.0 103/ul Critically high 0.3-0.8 [facility] Comment on above: Performed By: #### C BC #### [facility] [address] [place] [address] Dr. Emely Adrian Monocytes/100 WBC (Bld) 12.4 % Critically high 1.7-12.0 [facility] Comment on above: Performed By: #### C BC #### [facility] [address] [place] [address] Dr. Emely Adrian NEUT # 5.4 103/ul Normal 1.4-6.5 [facility] Comment on above: Performed By: #### C BC #### [facility] [address] [place] [address] Dr. Emely Adrian Neutrophils/100 WBC (Bld) 64.0 % Normal 43.0-75.0 [facility] Comment on above: Performed By: #### C BC #### [facility] [address] [place] [address] Dr. Emely Adrian Platelet mean volume (Bld) [Entitic vol] 9.2 fL Critically low 9.5-13.5 [facility] Comment on above: Performed By: #### C BC #### [facility] [address] [place] [address] Dr. Emely Adrian PLT 417 103/ul Normal 150-450 [facility] Comment on above: Performed By: #### C BC #### [facility] [address] [place] [address] Dr. Emely Adrian RBC 3.31 106/ul Critically low 4.70-6.10 [facility] Comment on above: Performed By: #### C BC #### [facility] [address] [place] [address] Dr. Emely Adrian WBC 8.4 103/ul Normal 4.0-11.0 [facility] Comment on above: Performed By: #### C BC #### [facility] [address] [place] [address] Dr. Emely Adrian CTA CHEST WO W [...] KIRK CRUZ Date: 2021-10-27 06:37 Normal [facility]09 SARS-CoV-2 (COVID-19) RNA ISIDRO+probe Ql (Unsp spec) Not detected Normal NOT DETECTED [facility] Comment on above: Result Comment: When [...] for this test is supported by the [employer] Consultant of Health and Human Service's declaration that [...] T BASIM, T7, EMILY WIGGINS, CMP #### [facility] [address] [address] [address] Emely Adrian D-DIMERon 10-27-2021 D-DIMER 2.19 mg/L FEU Critically high <=0.59 [facility] Comment on above: Performed By: #### T BASIM, T7, EMILY WIGGINS, CMP #### [facility] [address] [address] [address] Emely Adrian D-DIMER COMMENTS SEE BELOW Normal [facility] Comment on above: Result Comment: Incr [...] T BASIM, Royer, EMILY WIGGINS, CMP #### [facility] [address] [address] [address] Emely Adrian DIGOXINon 10-27-2021 DIG <0.2 Critically low 0.9-2.0 [facility] Comment on above: Performed By: #### T BASIM, T7, EMILY WIGGINS, CMP #### [facility] [address] [address] [address] Emely Adrian ECHOCARDIO M/2D COMPLETEon 0 10-27-2021 ECHOCARDIO M/2D COMPLETE Patient: PABLO BECKMAN Exam Date: 10/27/2021 : 1955 Gender:M Ordering : DR LV HEARD . Admission #: [id number] Family : Order #: [id number] CLICK HERE TO VIEW EXAM ECHOCARDIOGRAM REPORT [...] M.D. on 10/27/2021 at 17:01 Normal [facility] LACTATE/LACTIC ACIDon 2021 Lactate [Moles/Vol] 0.5 mmol/L Normal 0.4-1.9 [facility] Comment on above: Performed By: #### T SH, T7, LIPA, EMILY, CMP #### [facility] [address] [address] [address] Emely Adrian Lactate [Moles/Vol] 0.5 mmol/L Normal 0.4-1.9 [facility] Comment on above: Performed By: #### C BC #### [facility] [address], [place] [address] Dr. Emely Adrian PROF CHEM 8 ([facility])on Anion gap [Moles/Vol] 15.3 mmol/L Normal [facility] Comment on above: Performed By: #### C BC #### [facility] [address] [address] [address] Emely Adrian Calcium [Mass/Vol] 9.1 mg/dL Normal 8.5-10.1 [facility] Comment on above: Performed By: #### C BC #### [facility] [address] [address] [address] Emely Adrian Chloride [Moles/Vol] 105 mmol/L Normal 98-107 [facility] Comment on above: Performed By: #### C BC #### [facility] [address] [place] [address] Dr. Emely Adrian CO2 [Moles/Vol] 26.6 mmol/L Normal 21.0-32.0 [facility] Comment on above: Performed By: #### C BC #### [facility] [address] [place] [address] Dr. Emely Adrian Creatinine [Mass/Vol] 1.29 mg/dL Normal 0.70-1.30 [facility] Comment on above: Performed By: #### C BC #### [facility] [address] [place] [address] Dr. Emely Adrian EGFR-AF HUNGARIAN >60 Normal >=60 [facility] Comment on above: Performed By: #### C BC #### [facility] [address] [place] [address] Dr. Emely Adrian EGFR-NON AF HUNGARIAN 56 mL/min/1.73m2 Critically low >=60 [facility] Comment on above: Performed By: #### C BC #### [facility] [address] [address] [address] Emely Adrian Glucose [Mass/Vol] 100 mg/dL Normal 74-106 [facility] Comment on above: Performed By: #### C BC #### [facility] [address] [place] [address] Dr. Emely Adrian Potassium [Moles/Vol] 3.9 mmol/L Normal 3.5-5.1 [facility] Comment on above: Performed By: #### C BC #### [facility] [address], [place] [address] Dr. Emely Adrian Sodium [Moles/Vol] 143 mmol/L Normal 136-145 [facility] Comment on above: Performed By: #### C BC #### [facility] [address], [place] [address] Dr[address] Emely Adrian Urea nitrogen [Mass/Vol] 28.0 mg/dL Critically high 7.0-18.0 [facility] Comment on above: Performed By: #### C BC #### [facility] [address], [place] [address] Dr. Emely Adrian Urea nitrogen/Creatinin e [Mass ratio] 21.7 mg/mg Normal [facility] Comment on above: Performed By: #### C BC #### [facility] [address], [place] [address] Dr. Emely Adrian XR CHEST 1 Von [...] KARLY SAID Date: 2021-10-27 04:41 Normal [facility] Cardiovascular Lab Reporton 04-09-2021 Cardiovascular Lab Report [facility] Patient Name: Pablo Beckman [facility] MR #: [id number] Physician: Mamta Stephenson, Department of ANALYTICS LEAD Medicine Service Date: 04/07/2021 Division of Birthdate: 1955 Cardiology Room #: CC Adult [facility] Services [address] [address] Cardiovascular Laboratory Report DATE OF PROCEDURE; 04/07/2021 [...] Weeks MD Date Trans: 04/09/2021 11:17 A/ [id number] Normal [facility] Encounters Encounter Date Encounter Type Care Provider Facility Start: 08-08-2023 End: 08-08-2023 ambulatory MAMTA STEPHENSON [facility] Start: 06-21-2023 Telephone encounter Quinton [...] with patient Quinton Gonzáles MD Work Phone: [facility] Start: 06-23-2022 End: 06-24-2022 ambulatory LV Hoskins ROSEHarley Facility:[facility] Start: 06-22-2022 Telephone encounter Quinton Gonzáles MD Work Phone: Radiation Oncology Comment on above: Patient Question Start: 06-02-2022 End: 06-03-[address] JT GONZÁLES Facility:[facility] Start: 03-29-2022 End: 03-29-2022 Patient encounter procedure Patricio BEAUCHAMP General Surgery Nito/Alecia Yanez Start: 03-19-2022 Encounter for preprocedural laboratory examination DR PATRICIO Rosario [facility] Start: 03-18-2022 End: 03-18-[address] [...] Start: 04-07-2021 End: 04-08-2021 ambulatory MAMTA STEPHENSON [facility] Procedures Date Procedure Procedure Detail Performing Clinician Start: 08-08-2023 Follow-up visit Follow-up MAMTA STEPHENSON Start: 06-02-2022 End: 06-02-2022 PSA screening [facility] Provider Comment on above: Performed By: #### TSH, T7, EMILY WIGGINS C MP #### [facility] [address] [place] [address] Dr. Emely Adrian Start: 03-18-2022 Colonoscopy Patricio tribr Start: 03-18-2022 Esophagogastroduodenoscopy Patricio tribr Start: 10-17-2018 Colonoscopy Patricio [facility] Start: 09-11-2009 Colonoscopy Patricio NILL Amputation of finger, except thumb Patricio JUANL Arthroscopy of shoulder Meng george JUANL Implantation of radi oactive seed into prostate Patricio Fashion ProjectL Open reduction of fr acture with internal fixation Patricio tribr Comment on above: right leg Umbilical herniorrha phy using surgical sutures Patricio MamboCar Plan of Treatment Date Care Activity Detail Author Start: 06-12-2028 Prostate specific antigen measurement Prostate Cancer Screening Discussion [facility] Start: 06-02-2027 PROSTATE CANCER SCREENING DISCUSSION PROSTATE CANCER SCREENING DISCUSSION [facility] Start: 06-02-2027 Prostate specific antigen measurement Prostate Cancer Screening Discussion [facility] Start: 06-12-2024 End: 09-11-2024 Prostate specific Ag [Mass/volume] in Serum or Plasma PSA/PROSTSPECAG DIAG Lab Routine Malignant neoplasm of prostate (HCC) Expected: 06/12/2024, Expires: 09/11/2024 [facility] Work Phone: Comment on above: Expected: 06/12/2024 , Expires: 09/11/2024 Start: 05-23-2023 End: 08-22-2023 Prostate specific Ag [Mass/volume] in Serum or Plasma PSA/PROSTSPECAG DIAG Lab Routine Malignant neoplasm of prostate (HCC) Expected: 05/23/2023, Expires: 08/22/2023 [facility] Work Phone: Comment on above: Expected: 05/23/2023 , Expires: 08/22/2023 Start: 04-10-2023 Advance Directive Discussion Advance Directive Discussion [facility] Start: 04-10-2023 Depression Assessment Depression Ass essment [facility] Start: 01-18-2023 Pneumococcal Vaccine : 65+ (2 of 2 - PPSV23 or PCV20) Pneumococcal Vaccine: 65+ (2 of 2 - PPSV23 or PCV20) [facility] Start: 12-09-2022 Covid-19 Vaccine ( season) Covid-19 Vaccine ( season) [facility] Start: 12-09-2022 Influenza vaccination Influenza Vacc ine (#1) [facility] Start: 04-10-2022 ADVANCE DIRECTIVE DISCUSSION ADVANCE DIRECTIVE DISCUSSION [facility] Start: 04-10-2022 DEPRESSION ASSESSMENT DEPRESSION ASS ESSMENT [facility] Start: 12-09-2021 Influenza vaccination INFLUENZA (#1) [facility] Start: 2021 PNEUMOCOCCAL: 65+ (1 - PCV) PNEUMOCOCCAL: 65+ (1 - PCV) [facility] Start: 09-24-2020 COVID-19 VACCINE (3 - Booster for Pfizer series) COVID-19 VACCINE (3 - Booster for Pfizer series) [facility] Start: 2016 RSV Vaccine (1 - 1-d ose 60+ series) RSV Vaccine (1 - 1-dose 60+ series) [facility] Start: 2006 SHINGRIX VACCINE (1 of 2) SHINGRIX VACCINE (1 of 2) [facility] Start: 2001 COLOGUARD (FIT-DNA) COLOGUARD (FIT-D NA) [facility] Start: 2001 Colonoscopy COLONOSCOPY [facility] Start: 2001 COLORECTAL CANCER SCREENING COLORECTAL CANCER SCREENING [facility] Start: [address] COLONOGRAPHY [facility] Start: 2001 DIABETES SCREEN DIABETES SCREEN [facility] Start: 2001 Diabetes Screening Diabetes Screenin g [facility] Start: 2001 FECAL OCCULT BLOOD FECAL OCCULT BLOO D [facility] Start: 2001 Screening for malign ant neoplasm of colon [facility] Start: 2001 SIGMOIDOSCOPY SIGMOIDOSCOPY [facility] Start: 10-21-1991 Lipid panel Lipid Screening [facility] Start: 10-21-1991 LIPID SCREEN LIPID SCREEN [facility] Start: 10-21-1975 Urine microalbumin profile [facility] Start: 1974 HEPATITIS C SCREENING HEPATITIS C [facility] Start: 1974 Hepatitis C screening Hepatitis C [facility] Start: 1974 HIV SCREENING HIV SCREENING [facility] Start: 1955 ABDOMINAL AORTIC ANEURYSM SCREENING ABDOMINAL AORTIC ANEURYSM SCREENING [facility] Start: 1955 Abdominal aortic aneurysm screening Abdominal Aortic Aneurysm Screening [facility] Immunizations Immunization Date Immunization Notes Care Provider Christian marte NEGATED: Highlighted row has not occurred!03-08-2022 influenza virus vaccine, unspecified formulation Patricio BEAUCHAMP [facility] [place] Payers Date Payer Category Payer Medicare DEVOTED MEDICARE [facility] [id number] 2023-Present [phone] [address] [place] [address] O [id number] 2023 Unknown [id number] 2022 Private Health Insurance [facility] CHOICE PLUS [id number] 2022-Present [phone] [address] [place] [address] O [id number] 2006 Unknown [facility] GENERIC [id number] 2006-Present [phone] [place] [address] [id number] 1959 Unknown [id number] 1959 Unknown [id number] 1955 Unknown [id number] 1955 Unknown [id number] 1955 Unknown [id number] 1955 Unknown [id number] 1955 Unknown [id number] 1955 Unknown [id number] .[id number] 1955 Unknown [id number] .[id number] 1955 Unknown [id number] 1955 Unknown [id number] Social History Date Type Detail Facility Start: 06-24-2020 End: 03-08-2022 Tobacco smoking status Ex-smoker (finding) [facility] [place] Tobacco smoking status Never [facility] Start: 06-24-2020 End: 06-23-2022 Sex Assigned At Male Eduin Kumar [facility] End: 06-10-1989 History of tobacco use Current smoker [facility] End: 06-10-1989 History of tobacco use Cigarette Smoker [facility] Start: 06-24-2020 End: 06-23-2022 Cigarettes smoked current (pack per day) - Reported 1.5 [facility] Start: 06-24-2020 Tobacco use and exposure Smokeless tobacco non-user [facility] Start: 06-24-2020 [facility] Start: 1955 Sex Assigned At Not on file [facility] Clinical Notes 03-18-2022 to 08-08-2023 Telephone Encounter - Latisha Rojas LPN - 06/21/2023 2:40 PM EDTTelephone Encounter - Josefina Anderson RN - 05/23/2023 9:43 AM ESTG Isidoro Gonzáles MD - 06/23/2022 10:11 AM EDT Note Date & Type Note Facility 08-08-2023 Note Cardiovascular Medic [facility] SUBJECTIVE Chief Complaint Patient presents with [...] he cuts himself at work. 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 He denies any changes since last seen [...] deficit present. Ment (more content not included)... [facility] 06-21-2023 Miscellaneous Notes Melvina called [...] Latisha Rojas RN documented in this encounter [facility] 05-23-2023 Miscellaneous Notes PT called in to schedule follow up for this year. He will also need PSA. Please sign pended order and we will fax to [facility]. Josefina Anderson, RN documented in this encounter [facility] 06-23-2022 Note HNO ID: [id number] Author: Quinton Gonzáles MD Service: ? Author [...] Time Spent: 6 minutes Quinton Gonzáles MD [facility] 06-23-2022 History of Presen t illness [...] Quinton Gonzáles MD documented in this encounter [facility] 06-23-2022 Miscellaneous Notes Appointment has been changed in Epic. Kwaku Rasmussen Per Dr Gonzáles, ok to switch to phone visit. Patient was notified. PSS- please change in epic. Josefina Anderson RN Pablo called wondering if his follow up appointment can be switched to a phone visit tomorrow. Please advise. Latisha Rojas LPN documented in this encounter [facility] 03-18-2022 Note OPERATIVE NOTE OPERATION DATE: [...] good condition. CC: Lv Heard M.D. [facility] Evaluation + Plan note No data available for this section [facility] [place] Evaluation note Diagnosis Malignant neoplasm of prostate (HCC)- Primary Malignant neoplasm of prostate [facility] Diagnosis Malignant neoplasm of prostate (HCC)- Primary Malignant neoplasm of prostate documented in this encounter [facility] note* Diagnosis Malignant neoplasm of prostate (HCC)- Primary Malignant neoplasm of prostate documented in this encounter [facility] Discharge instructions No data available for this section [facility] [place] Progress note No data available for this section [facility] [place] Summary Purpose Family History No Family History [...] and content) DATE CREATED AUTHOR 04/15/2021 [facility] DATE CREATED AUTHOR AUTHOR'S ORGANIZ ATION 08/08/2022 [facility] DATE CREATED AUTHOR AUTHOR'S ORGANIZ ATION 06/16/[address] [facility] DATE CREATED AUTHOR AUTHOR'S ORGANIZ ATION 06/23/2023 [facility] DATE CREATED AUTHOR AUTHOR'S ORGANIZ ATION 12/09/2023 [facility] Patient Care team informatio n (unrecognized section and content) 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 Engineer Relationship Specialty Start Date End Date Lv Heard MD PCP - General 02/24/09 Dredge Engineer Relationship Specialty Start Date End Date Lv Heard MD PCP - General 02/24/09 Source Comments (unrecognize d section and content) In the event this informatio n is protected by the Federal Confidentiality of Alcohol and Drug Abuse Patient Records regulations: The Federal rules restrict any use of the information to criminally investigate or prosecute any alcohol or drug abuse patient.[facility] event this information is protected by the Federal Confidentiality of Alcohol and Drug Abuse Patient Records regulations: The Federal rules restrict any use of the information to criminally investigate or prosecute any alcohol or drug abuse patient.[facility] the event this information is protected by the Federal Confidentiality of Alcohol and Drug Abuse Patient Records regulations: The Federal rules restrict any use of the information to criminally investigate or prosecute any alcohol or drug abuse patient.[facility] the event this information is protected by the Federal Confidentiality of Alcohol and Drug Abuse Patient Records regulations: The Federal rules restrict any use of the information to criminally investigate or prosecute any alcohol or drug abuse patient.[facility] Reason for Visit (unrecogniz ed section and content) Reason Comments Patient Question Reason Comments Established Patient Specialty Diagnoses / Procedures Referred By Contac t Referred To Contact Radiation Oncology / RADIATION ONCOLOGY Diagnoses Follow-up examination 1 yr follow up, psa at [place] Procedures OFFICE/OUTPATIENT ESTABLISHED MOD MDM 30-39 MIN EST PATIENT Quinton Gonzáles MD [address] [place] [address] [place] [address] Quinton Gonzáles MD [address] [place] [address] [place] [address] Referral ID Status Reason Start Date Expiration Date Visits Re quested Visits Authorized [id number] Open 06/23/2022 09/21/2022 1 0 Reason Comments [...] BE BASED ON THE PRIMARY CLINICAL RECORDS. [employer] [facility]. provides no warranty or guarantee of the accuracy or completeness of information in this document.
--- NOTE | 2024-05-28 09:59 | PC.NURSE ---
Nursing Note Cardiac Stress Test Reviewed: Medication, allergies and patient history reviewed. Stress Test: [x ] Patient tolerated stress test well. [ ] Patient unable to tolerate walking on treadmill. Switched to Lexiscan stress test. [ x] No chest pain noted per patient [ ] Chest pain that resolved prior to leaving stress lab. [ ] No dyspnea noted. [ x] Dyspnea that resolved prior to leaving stress lab. [ x] Patient left stress lab asymptomatic and hemodynamically stable. [ ] Patient taken to the Emergency Room due to non-resolving symptoms following stress test. [ x] Patient achieved target heart rate. [ ] Patient unable to achieve target heart rate. [ ] Aminophylline administered as reversal agent to Lexiscan (Regadenoson). [ ] Nitro administered. Nursing Comments:Pt had cardiolite stress test and tolerated well. Pt had no chest pain but had dyspnea that is normal for him with activity. [facility] no issues noted.
== END 2024-05-28 06:54 | disposition home or self-care (01) ==
LOC: NM 06:53
PROVIDERS: PCP Family Medicine; Visit Provider Family Medicine
DX: R07.9 Chest pain, unspecified (principal)
CPT/HCPCS: 78452; 93017; A9500

== ENCOUNTER 2024-06-03 08:46 | Outpatient (OUT) | payer MEDICARE, SELFPAY ==
--- OUTSIDE RECORDS SUMMARY | 2024-06-03 09:08 | XMS_ITS | CCD ---
Author Organization 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 Name Role Phone MAMTA STEPHENSON Attending Unavailable SELF, REFERRED Primary Care Unavailable SELF, REFERRED Referring Unavailable MAMTA STEPHENSON Admitting Unavailable Lv Heard Primary Care Physician [phone] Lv Heard MD Primary Care Provider [phone] NILL ., DR CURRY Admitting Unavailable NILL ., DR CURRY Attending Unavailable NILL ., DR CURRY Consulting Unavailable HOY ., DR AWAN Primary Care Unavailable KAYLEEN, STELLA PRINCE Consulting Unava ilable TERI, DR JT Harper Admitting Unavailable ENGELER, DR JT aHrper Attending Unavailable ENGELER, DR JT Harper Consulting [...] DR AWAN Consulting Unavailable HOY ., DR WAAN Primary Care Unavailable HOY ., DR AWAN Admitting Unavailable ZIEBER, DR KIRK oGins Consulting Unavailable HOY ., DR AWAN Attending [...] QID, # 120 tab(s), Refills(s) 3, Pharmacy: [facility] #[id number], 177.8, cm, 03/08/22 15:41:00 EST, Height/Length Dosing, [...] Episodic Other aftercare (1 source) 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 [facility] 36 Yes, recommend roni ng Eliquis until seen by GI and clearance from them that he can resume. We can ask Dr. Heard to comment if he recommends patient for Watchman and to note this in his office note. Thanks [facility] 36 Dr. Heard's office maddi led asking for recommendations for Eliquis hold s/p significant red blood in stools. He was seen in [facility] ED on 12/05. I have uploaded records into media liaison officer for your review. There's no discharge summary or H&P. Just an ED report. Dr. Heard's office said Dr. Heard has him holding Eliquis for now. Please advise. Thanks. [facility] Office Visiton 08-08-2023 Follow-up visit [id number] Hanna Beckman 1955 M Date Provider Department Center 08/08/2023 [id number], MAMTA BH CARD [facility] Family History Problem Relation Age of Onset Stroke Mother Family Status - Relation Status Age at Mother Level of Service:49642 [place] OFFICE/OUTPATIENT ESTABLISHED MOD [facility] 30 MIN Reason for Visit and Comments: Follow-up [277669] - 1 year Normal [facility] Jason 06-21-2023 CNPN Telephone (RADTSA) PABLO BECKMAN ([id number]) 1955 M Date Time Provider Department 06/21/23 [...] (HCC) [C61] Order(s):PSA/PROSTSPECAG DIAG [SQPSA] Order #: [id number] FUTURE Prescriptions as of 06/22/2023 - valACYclovir [...] Status:Closed by Quinton GONZÁLES on 06/21/23 Normal [facility] Lab Reportson 06-15-2023 Lab Reports [id number] Normal [facility] Physician Referralon 024 Physician Referral [id number] [facility] CNPNon 05-23-2023 CNPN Telephone (RADTSA) PABLO BECKMAN ([id number]) 1955 Date Time Provider Department 05/23/23 Quinton [...] (HCC) [C61] Order(s):PSA/PROSTSPECAG DIAG [SQPSA] Order #: [id number] FUTURE Prescriptions as of 05/23/2023 - valACYclovir [...] Status:Closed by Quinton GONZÁLES on 05/23/23 Normal [facility] SARS-CoV-2 (COVID-19) RNA ISIDRO+probe Ql (Unsp spec) Not detected Normal NOT DETECTED [facility] Comment on above: Result Comment: This test is not yet approved or cleared by the [place] FDA. When there are no FDA-approved or cleared tests available, and other criteria are met, FDA can make tests available under an emergency access mechanism called an Emergency Use Authorization (EUA). The EUA for this test is supported by the Sales Marketing Manager of Health and Human Service's (HHS's) [...] T BASIM, Royer, FELICIANO, EMILY, CMP #### [facility] [address] [place], [place] [address] Dr. Emely Adrian CBC AUTO DIFFon 03-09-2022 BASO # 0.0 103/ul Normal 0.0-0.1 [facility] Comment on above: Performed By: #### T SH, T7, LIPA, EMILY, CMP #### [facility] [address] [place] [address] Dr. Emely Adrian Basophils/100 WBC (Bld) 0.1 % Critically low 0.2-2.0 [facility] Comment on above: Performed By: #### T SH, T7, LIPA, EMILY, CMP #### [facility] [address] [place] [address] Dr. Emely Adrian EO # 0.2 103/ul Normal 0.0-0.7 [facility] Comment on above: Performed By: #### T SH, T7, LIPA, EMILY, CMP #### [facility] [address] [place] [address] Dr. Emely Adrian Eosinophils/100 WBC (Bld) 3.2 % Normal 0.9-7.0 [facility] Comment on above: Performed By: #### T SH, T7, LIPA, EMILY, CMP #### [facility] [address] [place] [address] Dr. Emely Adrian Erythrocyte distribution width (RBC) [Ratio] 15.8 % Critically high 11.0-15.0 [facility] Comment on above: Performed By: #### T SH, T7, LIPA, EMILY, CMP #### [facility] [address] [place] [address] Dr. Emely Adrian Hematocrit (Bld) [Volume fraction] 26.6 % Critically low 42.0-54.0 [facility] Comment on above: Performed By: #### T SH, T7, LIPA, EMILY, CMP #### [facility] [address] [place] [address] Dr. Emely Adrian Hemoglobin (Bld) [Mass/Vol] 9.0 g/dL Critically low 14.0-18.0 [facility] Comment on above: Performed By: #### T SH, T7, LIPA, EMILY, CMP #### [facility] [address] [place] [address] Dr. Emely Adrian IG # 0.05 10e3/ul Critically high 0.00-0.03 [facility] Comment on above: Performed By: #### T SH, T7, LIPA, EMILY, CMP #### [facility] [address] [place] [address] Dr. Emely Adrian IG % 0.7 % Critically high 0.0-0.5 [facility] Comment on above: Performed By: #### T SH, T7, LIPA, EMILY, CMP #### [facility] [address] [place] [address] Dr. Emely Adrian LYMPH # 1.8 103/ul Normal 1.2-3.8 [facility] Comment on above: Performed By: #### T SH, T7, LIPA, EMILY, CMP #### [facility] [address] [place] [address] Dr. Emely Adrian Lymphocytes/100 WBC (Bld) 24.2 % Normal 20.5-60.0 [facility] Comment on above: Performed By: #### T SH, T7, LIPA, EMILY, CMP #### [facility] [address] [place] [address] Dr. Emely Adrian MANUAL DIFF REQ NO Normal [facility] Comment on above: Performed By: #### T SH, T7, LIPA, EMILY, CMP #### [facility] [address] [place] [address] Dr. Emely Adrian MCH (RBC) [Entitic mass] 32.7 pg Normal 25.9-34.0 [facility] Comment on above: Performed By: #### T SH, T7, LIPA, EMILY, CMP #### [facility] [address] [place] [address] Dr. Emely Adrian MCHC (RBC) [Mass/Vol] 33.8 g/dL Normal 29.9-35.2 [facility] Comment on above: Performed By: #### T SH, T7, LIPA, EMILY, CMP #### [facility] [address] [place] [address] Dr. Emely Adrian MCV (RBC) [Entitic vol] 96.7 fL Critically high 80.0-94.0 [facility] Comment on above: Performed By: #### T SH, T7, LIPA, EMILY, CMP #### [facility] [address] [place] [address] Dr. Emely Adrian MONO # 1.3 103/ul Critically high 0.3-0.8 [facility] Comment on above: Performed By: #### T SH, T7, LIPA, EMILY, CMP #### [facility] [address] [place] [address] Dr. Emely Adrian Monocytes/100 WBC (Bld) 18.0 % Critically high 1.7-12.0 [facility] Comment on above: Performed By: #### T SH, T7, LIPA, EMILY, CMP #### [facility] [address] [place] [address] Dr. Emely Adrian NEUT # 4.0 103/ul Normal 1.4-6.5 [facility] Comment on above: Performed By: #### T SH, T7, LIPA, EMILY, CMP #### [facility] [address] [place] [address] Dr. Emely Adrian Neutrophils/100 WBC (Bld) 53.8 % Normal 43.0-75.0 [facility] Comment on above: Performed By: #### T SH, T7, LIPA, EMILY, CMP #### [facility] [address] [place] [address] Dr. Emely Adrian Platelet mean volume (Bld) [Entitic vol] 8.7 fL Critically low 9.5-13.5 [facility] Comment on above: Performed By: #### T SH, T7, LIPA, EMILY, CMP #### [facility] [address] [place] [address] Dr. Emely Adrian PLT 320 103/ul Normal 150-450 [facility] Comment on above: Performed By: #### T SH, T7, LIPA, EMILY, CMP #### [facility] [address] [place] [address] Dr. Emely Adrian RBC 2.75 106/ul Critically low 4.70-6.10 [facility] Comment on above: Performed By: #### T SH, T7, LIPA, EMLIY, CMP #### [facility] [address] [place] [address] Dr. Emely Adrian WBC 7.5 103/ul Normal 4.0-11.0 [facility] Comment on above: Performed By: #### T SH, T7, LIPA, EMILY, CMP #### [facility] [address] [place] [address] Dr. Emely Adrian LACTATE/LACTIC ACIDon 2021 Lactate [Moles/Vol] 0.7 mmol/L Normal 0.4-1.9 [facility] Comment on above: Performed By: #### T SH, T7, LIPA, EMILY, CMP #### [facility] [address] [place] [address] Dr. Emely Adrian LIPASEon 03-09-2022 Lipase [Catalytic activity/Vol] 386.0 U/L Normal 73.0-393.0 [facility] Comment on above: Performed By: #### C BC #### [facility] [address] [place] [address] Dr. Emely Adrian PROF 14(COMP METB)on 022 Albumin [Mass/Vol] 2.9 g/dL Critically low 3.4-5.0 [facility] Comment on above: Performed By: #### C MP #### [facility] [address] [place] [address] Dr. Emely Adrian Albumin/Globulin [Mass ratio] 0.7 {ratio} Normal [facility] Comment on above: Performed By: #### C MP #### [facility] [address] [place] [address] Dr. Emely Adrian ALP [Catalytic activity/Vol] 43 U/L Critically low 46-116 [facility] Comment on above: Performed By: #### C MP #### [facility] [address] [place] [address] Dr. Emely Adrian ALT [Catalytic activity/Vol] 23 U/L Normal 16-63 [facility] Comment on above: Performed By: #### C MP #### [facility] [address] [place] [address] Dr. Emely Adrian Anion gap [Moles/Vol] 13.4 mmol/L Normal [facility] Comment on above: Performed By: #### C MP #### [facility] [address] [place] [address] [address] Emely Adrian AST [Catalytic activity/Vol] 21 U/L Normal 15-37 [facility] Comment on above: Performed By: #### C MP #### [facility] [address] [place] [address] [address] Emely Adrian Bilirubin [Mass/Vol] 0.4 mg/dL Normal 0.2-1.0 [facility] Comment on above: Performed By: #### C MP #### [facility] [address] [place] [address] Dr. Emely Adrian Calcium [Mass/Vol] 8.3 mg/dL Critically low 8.5-10.1 [facility] Comment on above: Performed By: #### C MP #### [facility] [address] [place] [address] [address] Emely Adrian Chloride [Moles/Vol] 104 mmol/L Normal 98-107 [facility] Comment on above: Performed By: #### C MP #### [facility] [address] [place] [address] [address] Emely Adrian CO2 [Moles/Vol] 22.9 mmol/L Normal 21.0-32.0 [facility] Comment on above: Performed By: #### C MP #### [facility] [address] [place] [address] [address] Emely Adrian Creatinine [Mass/Vol] 1.80 mg/dL Critically high 0.70-1.30 [facility] Comment on above: Performed By: #### C MP #### [facility] [address] [place] [address] Dr. Emely Adrian EGFR-AF NIUEAN 46 mL/min/1.73m2 Critically low >=60 [facility] Comment on above: Performed By: #### C MP #### [facility] [address] [place] [address] Dr. Emely Adrian EGFR-NON AF NIUEAN 38 mL/min/1.73m2 Critically low >=60 [facility] Comment on above: Performed By: #### C MP #### [facility] [address] [place] [address] Dr. Emely Adrian Globulin (S) [Mass/Vol] 4.3 g/dL Normal [facility] Comment on above: Performed By: #### C MP #### [facility] [address] [place] [address] [address] Emely Adrian Glucose [Mass/Vol] 105 mg/dL Normal 74-106 [facility] Comment on above: Performed By: #### C MP #### [facility] [address] [place] [address] Dr. Emely Adrian Potassium [Moles/Vol] 4.3 mmol/L Normal 3.5-5.1 [facility] Comment on above: Performed By: #### C MP #### [facility] [address] [place] [address] Dr. Emely Adrian Protein [Mass/Vol] 7.2 g/dL Normal 6.4-8.2 [facility] Comment on above: Performed By: #### C MP #### [facility] [address] [place] [address] Dr. Emely Adrian Sodium [Moles/Vol] 136 mmol/L Normal 136-145 [facility] Comment on above: Performed By: #### C MP #### [facility] [address] [place] [address] Dr. Emely Adrian Urea nitrogen [Mass/Vol] 35.0 mg/dL Critically high 7.0-18.0 [facility] Comment on above: Performed By: #### C MP #### [facility] [address] [place] [address] Dr. Emely Adrian Urea nitrogen/Creatinin e [Mass ratio] 19.4 mg/mg Normal [facility] Comment on above: Performed By: #### C MP #### [facility] [address] [place] [address] Dr. Emely Adrian PROTIMEon 03-09-2022 INR Coag (PPP) [Relative time] 1.12 {INR} Normal [facility] Comment on above: Performed By: #### P TT, PT #### [facility] [address] [place] [address] Dr. Emely Adrian INR GUIDELINES SEE BELOW Normal [facility] Comment on above: Result Comment: DUSTIN RED INR: 2.0 - 3.0 CONDITIONS NOT LISTED BELOW 2.5 - 3.5 FOR PROSTHETIC HEART VALVE REPLACEMENT 2.5 - 3.5 RECURRENT THROMBOSIS Performed By: #### P TT, PT #### [facility] [address] [place] [address] Dr. Emely Adrian PT Coag (PPP) [Time] 12.0 s Critically high 9.0-11.6 [facility] Comment on above: Performed By: #### P TT, PT #### [facility] [address] [place] [address] Dr. Emely Adrian PTTon 03-09-2022 aPTT Coag (Bld) [Time] 32.1 s Normal 22.3-36.2 [facility] Comment on above: Performed By: #### P TT, PT #### [facility] [address] [place] [address] Dr. Emely Adrian TROPONIN, HIGH SENSITIVITYon 03-09-2022 HSTROP 12.0 pg/mL Normal 4.0-76.1 [facility] Comment on above: Result Comment: CUT- OFF POINTS HAVE BEEN ESTABLISHED BASED ON THE FOURTH UNIVERSAL DEFINITIONS OF MYOCARDIAL INFARCTION. THE UPPER REFERENCE LIMIT (URL) OF TROPONIN, DEFINED THE 99TH PERCENTILE OF cTnI DISTRIBUTION IN A REFERENCE POPULATION, HAS BEEN CONFIRMED THE DECISION THRESHOLD FOR OK DIAGNOSIS. Performed By: #### T SH, T7, LIPA, EMILY, CMP #### [facility] [address] [place] [address] Dr. Emely Adrian TYPE AND SCREENon 03-09-2022 TYPE AND SCREEN Negative Normal [facility] Comment on above: Performed By: #### T SH, T7, LIPA, EMILY, CMP #### [facility] [address] [place] [address] Dr. Emely Adrian XR CHEST 1 Von [...] by: PATRICIO ANTON Date: 2022-03-09 10:17 Normal [facility] CA 19-9on 02-26-2022 CA 19-9 4 U/mL Normal 0-35 [facility] Comment on above: Result Comment: [employer] Electrochemiluminescence Immunoassay (ECLIA) . Values obtained with different assay methods or kits cannot be used interchangeably. Results cannot be interpreted as absolute evidence of the presence or absence of malignant disease. Performed By: #### T SH, T7, LIPA, EMILY, CMP #### [facility] [address] [place] [address] [address] Emely Adrian CEAon 02-26-2022 CEA 1.9 ng/mL Normal 0.0-4.7 [facility] Comment on above: Result Comment: Nons mokers <3.9 Smokers <5.6 . [employer] Electrochemiluminescence Immunoassay (ECLIA) . Values obtained with different assay methods or kits cannot be used interchangeably. Results cannot be interpreted as absolute evidence of the presence or absence of malignant disease. Performed By: #### T SH, T7, LIPA, EMILY, CMP #### [facility] [address] [place] [address] Dr. Emely Adrian H PYLORI ANTIBODY IGGon 02-08 H. PYLORI IGG ABS 1.19 Index Value Critically high 0.00-0. 79 [facility] Comment on above: Result Comment: Nega tive <0.80 Equivocal 0.80 - 0.89 Positive >0.89 Performed By: #### C BC #### [facility] [address] [place] [address] Dr. Emely Adrian AMYLASEon 02-25-2022 Amylase [Catalytic activity/Vol] 118 U/L Critically high 25-115 [facility] Comment on above: Performed By: #### T SH, T7, LIPA, EMILY, CMP #### [facility] [address] [place] [address] Dr. Emely Adrian CBC AUTO DIFFon 02-25-2022 BASO # 0.0 103/ul Normal 0.0-0.1 [facility] Comment on above: Performed By: #### T SH, T7, LIPA, EMILY, CMP #### [facility] [address] [place] [address] Dr. Emely Adrian Basophils/100 WBC (Bld) 0.2 % Normal 0.2-2.0 [facility] Comment on above: Performed By: #### T SH, T7, LIPA, EMILY, CMP #### [facility] [address] [place] [address] Dr. Emely Adrian EO # 0.1 103/ul Normal 0.0-0.7 [facility] Comment on above: Performed By: #### T SH, T7, LIPA, EMILY, CMP #### [facility] [address] [place] [address] Dr. Emely Adrian Eosinophils/100 WBC (Bld) 2.8 % Normal 0.9-7.0 [facility] Comment on above: Performed By: #### T SH, T7, LIPA, EMILY, CMP #### [facility] [address] [place] [address] Dr. Emely Adrian Erythrocyte distribution width (RBC) [Ratio] 15.6 % Critically high 11.0-15.0 [facility] Comment on above: Performed By: #### T SH, T7, LIPA, EMILY, CMP #### [facility] [address] [place] [address] Dr. Emely Adrian Hematocrit (Bld) [Volume fraction] 28.9 % Critically low 42.0-54.0 [facility] Comment on above: Performed By: #### T SH, T7, LIPA, EMILY, CMP #### [facility] [address] [place] [address] Dr. Emely Adrian Hemoglobin (Bld) [Mass/Vol] 9.5 g/dL Critically low 14.0-18.0 [facility] Comment on above: Performed By: #### T SH, T7, LIPA, EMILY, CMP #### [facility] [address] [place] [address] Dr. Emely Adrian IG # 0.04 10e3/ul Critically high 0.00-0.03 [facility] Comment on above: Performed By: #### T SH, T7, LIPA, EMILY, CMP #### [facility] [address] [place] [address] Dr. Emely Adrian IG % 0.9 % Critically high 0.0-0.5 [facility] Comment on above: Performed By: #### T SH, T7, LIPA, EMILY, CMP #### [facility] [address] [place] [address] Dr. Emely Adrian LYMPH # 1.3 103/ul Normal 1.2-3.8 [facility] Comment on above: Performed By: #### T SH, T7, LIPA, EMILY, CMP #### [facility] [address] [place] [address] Dr. Emely Adrian Lymphocytes/100 WBC (Bld) 29.6 % Normal 20.5-60.0 [facility] Comment on above: Performed By: #### T SH, T7, LIPA, EMILY, CMP #### [facility] [address] [place] [address] Dr. Emely Adrian MANUAL DIFF REQ NO Normal [facility] Comment on above: Performed By: #### T SH, T7, LIPA, EMILY, CMP #### [facility] [address] [place] [address] Dr. Emely Adrian MCH (RBC) [Entitic mass] 32.1 pg Normal 25.9-34.0 [facility] Comment on above: Performed By: #### T SH, T7, LIPA, EMILY, CMP #### [facility] [address] [place] [address] Dr. Emely Adrian MCHC (RBC) [Mass/Vol] 32.9 g/dL Normal 29.9-35.2 [facility] Comment on above: Performed By: #### T SH, T7, LIPA, EMILY, CMP #### [facility] [address] [place] [address] Dr. Emely Adrian MCV (RBC) [Entitic vol] 97.6 fL Critically high 80.0-94.0 [facility] Comment on above: Performed By: #### T SH, T7, LIPA, EMILY, CMP #### [facility] [address] [place] [address] Dr. Emely Adrian MONO # 0.8 103/ul Normal 0.3-0.8 [facility] Comment on above: Performed By: #### T SH, T7, LIPA, EMILY, CMP #### [facility] [address] [place] [address] Dr. Emely Adrian Monocytes/100 WBC (Bld) 17.2 % Critically high 1.7-12.0 [facility] Comment on above: Performed By: #### T SH, T7, LIPA, EMILY, CMP #### [facility] [address] [place] [address] Dr. Emely Adrian NEUT # 2.2 103/ul Normal 1.4-6.5 [facility] Comment on above: Performed By: #### T SH, T7, LIPA, EMILY, CMP #### [facility] [address] [place] [address] Dr. Emely Adrian Neutrophils/100 WBC (Bld) 49.3 % Normal 43.0-75.0 [facility] Comment on above: Performed By: #### T SH, T7, LIPA, EMILY, CMP #### [facility] [facility] [address] [place] [address] Dr. Emely Adrian Platelet mean volume (Bld) [Entitic vol] 9.2 fL Critically low 9.5-13.5 [facility] Comment on above: Performed By: #### T SH, T7, LIPA, EMILY, CMP #### [facility] [address] [place] [address] Dr. Emely Adrian PLT 259 103/ul Normal 150-450 [facility] Comment on above: Performed By: #### T SH, T7, LIPA, EMILY, CMP #### [facility] [address] [place] [address] Dr. Emely Adrian RBC 2.96 106/ul Critically low 4.70-6.10 [facility] Comment on above: Performed By: #### T SH, T7, LIPA, EMILY, CMP #### [facility] [address] [place] [address] Dr. Emely Adrian WBC 4.4 103/ul Normal 4.0-11.0 [facility] Comment on above: Performed By: #### T SH, T7, LIPA, EMILY, CMP #### [facility] [address] [place] [address] Dr. Emely Adrian FREE THYROXINE INDEX T7on FTI 1.80 Normal 1.30-4.50 [facility] Comment on above: Performed By: #### T SH, T7, LIPA, EMILY, CMP #### [facility] [address] [place] [address] Dr. Emely Adrian T3U 34.0 % Normal 33.0-40.0 [facility] Comment on above: Performed By: #### T SH, T7, LIPA, EMILY, CMP #### [facility] [address] [place] [address] Dr. Emely Adrian T4 [Mass/Vol] 5.30 ug/dL Normal 4.50-12.10 [facility] Comment on above: Performed By: #### T SH, T7, LIPA, EMILY, CMP #### [facility] [address] [place] [address] Dr. Emely Adrian GI PANEL (PCR)on 02-25-2022 Adenovirus F 40/41 Not detected Normal NOT DETECTED [facility] Comment on above: Performed By: #### G IPANEL #### [facility] [address] [place] [address] Dr. Emely Adrian Astrovirus Not detected Normal NOT DETECTED [facility] Comment on above: Performed By: #### G IPANEL #### [facility] [address] [place] [address] Dr. Emely Adrian C. Diff toxin A/B Not detected Normal NOT DETECTED [facility] Comment on above: Performed By: #### G IPANEL #### [facility] [address] [place] [address] Dr. Emely Adrian Campylobacter Not detected Normal NOT DETECTED [facility] Comment on above: Performed By: #### G IPANEL #### [facility] [address] [place] [address] Dr. Emely Adrian Cryptosporidium Not detected Normal NOT DETECTED [facility] Comment on above: Performed By: #### G IPANEL #### [facility] [address] [place] [address] Dr. Emely Adrian Cyclos. Cayetanensis Not detected Normal NOT DETECTED [facility] Comment on above: Performed By: #### G IPANEL #### [facility] [address] [place] [address] Dr. Emely Adrian E. Coli O157 Not Applicable Normal Not Applicable [facility] Comment on above: Performed By: #### G IPANEL #### [facility] [address] [place] [address] Dr. Emely Adrian E. histolytica Not detected Normal NOT DETECTED [facility] Comment on above: Performed By: #### G IPANEL #### [facility] [address] [place] [address] Dr. Emely Adrian EAEC Not detected Normal NOT DETECTED [facility] Comment on above: Performed By: #### G IPANEL #### [facility] [address] [place] [address] Dr. Emely Adrian EIEC Not detected Normal NOT DETECTED [facility] Comment on above: Performed By: #### G IPANEL #### [facility] [address] [place] [address] Dr. Emely Adrian EPEC Not detected Normal NOT DETECTED [facility] Comment on above: Performed By: #### G IPANEL #### [facility] [address] [place] [address] Dr. Emely Adrian ETEC Not detected Normal NOT DETECTED [facility] Comment on above: Performed By: #### G IPANEL #### [facility] [address] [address] [address] Emely Olsen Lamblia Not detected Normal NOT DETECTED [facility] Comment on above: Performed By: #### G IPANEL #### [facility] [address] [address] [address] Emely STODDARD CONTROLS PASSED Normal The [facility] Comment on above: Performed By: #### G IPANEL #### [facility] [address] [address] [address] Emely RODRIGUEZ MARY HEADER GI PANEL BACTERIA Normal [facility] Comment on above: Performed By: #### G IPANEL #### [facility] [address] [address] [address] Emely KAHN ECOLI GI PANEL DIARRHEAGEN IC E.COLI / SHIGELLA Normal [facility] Comment on above: Performed By: #### G IPANEL #### [facility] [address] [address] [address] Emely KAHN INFO SEE BELOW Normal [facility] Comment on above: Result Comment: EAEC - Enteroaggregative E. Coli EPEC- Enteropathogenic E. Coli ETEC- Enterotoxigenic E. Coli lt/st STEC- Shigella-like toxin-producing E. Coli stx1/stx2 EIEC- Shigella/Enteroinvasive E. Coli Performed By: #### G IPANEL #### [facility] [address] [place] [address] Dr. Emely KAHN PARASITES GI PANEL PARASITES Normal [facility] Comment on above: Performed By: #### G IPANEL #### [facility] [address] [address] [address] Emely KAHN VIRUS GI PANEL VIRUSES Normal [facility] Comment on above: Performed By: #### G IPANEL #### [facility] [address] [address] [address] Emely Adrian Norovirus GI/GII Not detected Normal NOT DETECTED [facility] Comment on above: Performed By: #### G IPANEL #### [facility] [address] [address] [address] Emely Adrian P. Shigelloides Not detected Normal NOT DETECTED [facility] Comment on above: Performed By: #### G IPANEL #### [facility] [address] [address] [address] Emely Adrian Rotavirus A Not detected Normal NOT DETECTED [facility] Comment on above: Performed By: #### G IPANEL #### [facility] [address] [address] [address] Emely Adrian Salmonella Not detected Normal NOT DETECTED [facility] Comment on above: Performed By: #### G IPANEL #### [facility] [address] [place] [address] Dr. Emely Adrian Sapovirus Not detected Normal NOT DETECTED [facility] Comment on above: Performed By: #### G IPANEL #### [facility] [address] [place] [address] Dr. Emely Adrian STEC Not detected Normal NOT DETECTED [facility] Comment on above: Performed By: #### G IPANEL #### [facility] [address] [address] [address] Emely Adrian Vibrio Not detected Normal NOT DETECTED [facility] Comment on above: Performed By: #### G IPANEL #### [facility] [address] [place] [address] Dr. Emely Adrian Vibrio Cholera Not detected Normal NOT DETECTED [facility] Comment on above: Performed By: #### G IPANEL #### [facility] [address] [place] [address] Dr. Emely Adrian Y. Enterocolitica Not detected Normal NOT DETECTED [facility] Comment on above: Performed By: #### G IPANEL #### [facility] [address] [place] [address] Dr. Emely Adrian GLYCOHEMOGLOBIN A1Con 2021 ADA RECOMMENDATION SEE BELOW Normal [facility] Comment on above: Result Comment: ADA RECOMMENDED LIMIT 4.0 - 6.0 ADA THERAPEUTIC TARGET < 7.0 ACTION SUGGESTED > 7.0 Performed By: #### T SH, T7, LIPA, EMILY, CMP #### [facility] [address] [address] [address] Emely Adrian Glucose [Mass/Vol] 120 mg/dL Normal [facility] Comment on above: Performed By: #### T SH, T7, LIPA, EMILY, CMP #### [facility] [address] [place] [address] Dr. Emely Adrian HbA1c (Bld) [Mass fraction] 5.8 % Normal 4.5-6.2 [facility] Comment on above: Performed By: #### T SH, T7, LIPA, EMILY, CMP #### [facility] [address] [place] [address] Dr. Emely Adrian IRONon 02-25-2022 Iron [Mass/Vol] 55.0 ug/dL Critically low 65.0-175.0 [facility] Comment on above: Performed By: #### C BC #### [facility] [address] [place] [address] Dr. Emely Adrian LIPASEon 02-25-2022 Lipase [Catalytic activity/Vol] 671.0 U/L Critically high 73.0-393.0 [facility] Comment on above: Performed By: #### T SH, T7, LIPA, EMILY, CMP #### [facility] [address] [place] [address] Dr. Emely Adrian OCC BLD IMMUNO SCREENon 02-08 OCCULT BLOOD Positive Abnormal NEGATIVE [facility] Comment on above: Performed By: #### T SH, T7, LIPA, EMILY, CMP #### [facility] [address] [place] [address] Dr. Emely Adrian PROF 14(COMP METB)on 022 Albumin [Mass/Vol] 3.0 g/dL Critically low 3.4-5.0 [facility] Comment on above: Performed By: #### T SH, T7, LIPA, EMILY, CMP #### [facility] [address] [place] [address] Dr. Emely Adrian Albumin/Globulin [Mass ratio] 0.8 {ratio} Normal [facility] Comment on above: Performed By: #### T SH, T7, LIPA, EMILY, CMP #### [facility] [address] [place] [address] Dr. Emely Adrian ALP [Catalytic activity/Vol] 58 U/L Normal 46-116 [facility] Comment on above: Performed By: #### T SH, T7, LIPA, EMILY, CMP #### [facility] [address] [place] [address] Dr. Emely Adrian ALT [Catalytic activity/Vol] 25 U/L Normal 16-63 [facility] Comment on above: Performed By: #### T SH, T7, LIPA, EMILY, CMP #### [facility] [address] [place] [address] Dr. Emely Adrian Anion gap [Moles/Vol] 12.1 mmol/L Normal [facility] Comment on above: Performed By: #### T SH, T7, LIPA, EMILY, CMP #### [facility] [address] [place] [address] Dr. Emely Adrian AST [Catalytic activity/Vol] 20 U/L Normal 15-37 [facility] Comment on above: Performed By: #### T SH, T7, LIPA, EMILY, CMP #### [facility] [address] [place] [address] Dr. Emely Adrian Bilirubin [Mass/Vol] 0.2 mg/dL Normal 0.2-1.0 [facility] Comment on above: Performed By: #### T SH, T7, LIPA, EMILY, CMP #### [facility] [address] [place] [address] Dr. Emely Adrian Calcium [Mass/Vol] 8.3 mg/dL Critically low 8.5-10.1 [facility] Comment on above: Performed By: #### T SH, T7, LIPA, EMILY, CMP #### [facility] [address] [place] [address] Dr. Emely Adrian Chloride [Moles/Vol] 108 mmol/L Critically high 98-107 [facility] Comment on above: Performed By: #### T SH, T7, LIPA, EMILY, CMP #### [facility] [address] [place] [address] Dr. Emely Adrian CO2 [Moles/Vol] 24.5 mmol/L Normal 21.0-32.0 [facility] Comment on above: Performed By: #### T SH, T7, LIPA, EMILY, CMP #### [facility] [address] [place] [address] Dr. Emely Adrian Creatinine [Mass/Vol] 0.97 mg/dL Normal 0.70-1.30 [facility] Comment on above: Performed By: #### T SH, T7, LIPA, EMILY, CMP #### [facility] [address] [place] [address] Dr. Emely Adrian EGFR-AF NIUEAN >60 Normal >=60 [facility] Comment on above: Performed By: #### T SH, T7, LIPA, EMILY, CMP #### [facility] [address] [place] [address] Dr. Emely Adrian EGFR-NON AF NIUEAN >60 Normal >=60 [facility] Comment on above: Performed By: #### T SH, T7, LIPA, EMILY, CMP #### [facility] [address] [place] [address] Dr. Emely Adrian Globulin (S) [Mass/Vol] 3.8 g/dL Normal [facility] Comment on above: Performed By: #### T SH, T7, LIPA, EMILY, CMP #### [facility] [address] [place] [address] Dr. Emely Adrian Glucose [Mass/Vol] 97 mg/dL Normal 74-106 [facility] Comment on above: Performed By: #### T SH, T7, LIPA, EMILY, CMP #### [facility] [address] [place] [address] Dr. Emely Adrian Potassium [Moles/Vol] 4.6 mmol/L Normal 3.5-5.1 [facility] Comment on above: Performed By: #### T SH, T7, LIPA, MEILY, CMP #### [facility] [address] [place] [address] Dr. Emely Adrian Protein [Mass/Vol] 6.8 g/dL Normal 6.4-8.2 [facility] Comment on above: Performed By: #### T SH, T7, LIPA, EMILY, CMP #### [facility] [address] [place] [address] Dr. Emely Adrian Sodium [Moles/Vol] 140 mmol/L Normal 136-145 [facility] Comment on above: Performed By: #### T SH, T7, LIPA, EMILY, CMP #### [facility] [address] [place] [address] Dr. Emely Adrian Urea nitrogen [Mass/Vol] 20.0 mg/dL Critically high 7.0-18.0 [facility] Comment on above: Performed By: #### T SH, T7, LIPA, EMILY, CMP #### [facility] [address] [place] [address] Dr. Emely Adrian Urea nitrogen/Creatinin e [Mass ratio] 20.6 mg/mg Normal [facility] Comment on above: Performed By: #### T SH, T7, LIPA, EMILY, CMP #### [facility] [address] [place] [address] Dr. Emely Adrian TSHon 02-25-2022 TSH 1.247 uIU/mL Normal 0.358-3.740 [facility] Comment on above: Performed By: #### T SH, T7, LIPA, EMILY, CMP #### [facility] [address] [place] [address] Dr. Emely Adrian VITAMIN D 25 OHon 02-25-2022 VIT D 25-OH 23.9 ng/mL Normal [facility] Comment on above: Performed By: #### C BC #### [facility] [address] [place] [address] Dr. Emely Adrian VIT D RANGES SEE BELOW Normal [facility] Comment on above: Result Comment: <20 ng/mL Vit D deficient 20 - <30 ng/mL Vit D insufficient 30 - 100 ng/mL Vit D sufficient >100 ng/mL Potential Toxicity Performed By: #### C BC #### [facility] [address] [address] [address] Emely Adrian CREATININEon 12-30-2021 Creatinine [Mass/Vol] 1.21 mg/dL Normal 0.70-1.30 [facility] Comment on above: Performed By: #### T SH, T7, LIPA, MEILY, CMP #### [facility] [address] [address] [address] Emely Adrian EGFR-AF NIUEAN >60 Normal >=60 [facility] Comment on above: Performed By: #### T SH, T7, LIPA, EMILY, CMP #### [facility] [address] [address] [address] Emely Adrian EGFR-NON AF NIUEAN =60 Normal >=60 [facility] Comment on above: Performed By: #### T SH, T7, LIPA, EMILY, CMP #### [facility] [address] [place] [address] CHEST WO W [...] by: KIRK CRUZ Date: 2021-12-30 08:46 Normal [facility] NM STRESS/REST MULTIon 11-09 NM STRESS/REST MULTI Patient: PABLO BECKMAN Exam Date: 11/09/2021 : 1955 Gender:M Ordering : DR LV HEARD . Admission #: [id number] Family : Order #: [id number] CLICK HERE TO VIEW EXAM RADIOLOGY REPORT [...] Cruz M.D. on 11/09/2021 at 14:17 Normal [facility] CARDIAC PHILIP 3-6on 2 CK [Catalytic activity/Vol] 114 U/L Normal 39-308 [facility] Comment on above: Performed By: #### T SH, T7, LIPA, EMILY, CMP #### [facility] [address] [place] [address] Dr. Emely Adrian CK.MB [Mass/Vol] 1.75 ng/mL Normal <=3.60 The [facility] Comment on above: Performed By: #### T SH, T7, LIPA, EMILY, CMP #### [facility] [address] [place] [address] Dr. Emely Adrian HSTROP 10.8 pg/mL Normal 4.0-76.1 [facility] Comment on above: Result Comment: CUT- OFF POINTS HAVE BEEN ESTABLISHED BASED ON THE FOURTH UNIVERSAL DEFINITIONS OF MYOCARDIAL INFARCTION. THE UPPER REFERENCE LIMIT (URL) OF TROPONIN, DEFINED THE 99TH PERCENTILE OF cTnI DISTRIBUTION IN A REFERENCE POPULATION, HAS BEEN CONFIRMED THE DECISION THRESHOLD FOR OK DIAGNOSIS. Performed By: #### T SH, T7, LIPA, EMILY, CMP #### [facility] [address] [place] [address] Dr. Emely Adrian CK [Catalytic activity/Vol] 122 U/L Normal 39-308 [facility] Comment on above: Performed By: #### T SH, T7, LIPA, EMILY, CMP #### [facility] [address] [place] [address] Dr. Emely Adrian CK.MB [Mass/Vol] 2.59 ng/mL Normal <=3.60 The [facility] Comment on above: Performed By: #### T SH, T7, LIPA, EMILY, CMP #### [facility] [address] [place] [address] Dr. Emely Adrian HSTROP 10.5 pg/mL Normal 4.0-76.1 [facility] Comment on above: Result Comment: CUT- OFF POINTS HAVE BEEN ESTABLISHED BASED ON THE FOURTH UNIVERSAL DEFINITIONS OF MYOCARDIAL INFARCTION. THE UPPER REFERENCE LIMIT (URL) OF TROPONIN, DEFINED THE 99TH PERCENTILE OF cTnI DISTRIBUTION IN A REFERENCE POPULATION, HAS BEEN CONFIRMED THE DECISION THRESHOLD FOR OK DIAGNOSIS. Performed By: #### T SH, T7, LIPA, EMILY, CMP #### [facility] [address] [place] [address] Dr. Emely Adrian CK [Catalytic activity/Vol] 130 U/L Normal 39-308 [facility] Comment on above: Performed By: #### C BC #### [facility] [address] [address] [address] Emely Adrian CK.MB [Mass/Vol] 2.10 ng/mL Normal <=3.60 The [facility] Comment on above: Performed By: #### C BC #### [facility] [address] [address] [address] Emely Adrian HSTROP 10.2 pg/mL Normal 4.0-76.1 [facility] Comment on above: Result Comment: CUT- OFF POINTS HAVE BEEN ESTABLISHED BASED ON THE FOURTH UNIVERSAL DEFINITIONS OF MYOCARDIAL INFARCTION. THE UPPER REFERENCE LIMIT (URL) OF TROPONIN, DEFINED THE 99TH PERCENTILE OF cTnI DISTRIBUTION IN A REFERENCE POPULATION, HAS BEEN CONFIRMED THE DECISION THRESHOLD FOR OK DIAGNOSIS. Performed By: #### C BC #### [facility] [address] [place] [address] Dr. Emely Adrian CARDIAC PHILIP ADMITon 022 CK [Catalytic activity/Vol] 164 U/L Normal 39-308 [facility] Comment on above: Performed By: #### C BC #### [facility] [address] [address] [address] Emely Adrian CK.MB [Mass/Vol] 3.38 ng/mL Normal <=3.60 The [facility] Comment on above: Performed By: #### C BC #### [facility] [address] [address] [address] Emely Adrian HSTROP 9.5 pg/mL Normal 4.0-76.1 [facility] Comment on above: Result Comment: CUT- OFF POINTS HAVE BEEN ESTABLISHED BASED ON THE FOURTH UNIVERSAL DEFINITIONS OF MYOCARDIAL INFARCTION. THE UPPER REFERENCE LIMIT (URL) OF TROPONIN, DEFINED THE 99TH PERCENTILE OF cTnI DISTRIBUTION IN A REFERENCE POPULATION, HAS BEEN CONFIRMED THE DECISION THRESHOLD FOR OK DIAGNOSIS. Performed By: #### C BC #### [facility] [address] [address] [address] Emely Adrian ADY 124 ng/mL Critically high 16-96 [facility] Comment on above: Performed By: #### C BC #### [facility] [address] [place] [address] Dr. Emely Adrian CBC AUTO DIFFon 10-27-2021 BASO # 0.0 103/ul Normal 0.0-0.1 [facility] Comment on above: Performed By: #### C BC #### [facility] [address] [place] [address] Dr. Emely Adrian Basophils/100 WBC (Bld) 0.1 % Critically low 0.2-2.0 [facility] Comment on above: Performed By: #### C BC #### [facility] [address] [place] [address] Dr. Emely Adrian EO # 0.3 103/ul Normal 0.0-0.7 [facility] Comment on above: Performed By: #### C BC #### [facility] [address] [place] [address] Dr. Emely Adrian Eosinophils/100 WBC (Bld) 3.2 % Normal 0.9-7.0 [facility] Comment on above: Performed By: #### C BC #### [facility] [address] [place] [address] Dr. Emely Adrian Erythrocyte distribution width (RBC) [Ratio] 13.6 % Normal 11.0-15.0 [facility] Comment on above: Performed By: #### C BC #### [facility] [address] [place] [address] Dr. Emely Adrian Hematocrit (Bld) [Volume fraction] 32.2 % Critically low 42.0-54.0 [facility] Comment on above: Performed By: #### C BC #### [facility] [address] [place] [address] Dr. Emely Adrian Hemoglobin (Bld) [Mass/Vol] 10.5 g/dL Critically low 14.0-18.0 [facility] Comment on above: Performed By: #### C BC #### [facility] [address] [place] [address] Dr. Emely Adrian IG # 0.05 10e3/ul Critically high 0.00-0.03 [facility] Comment on above: Performed By: #### C BC #### [facility] [address] [address] [address] Emely Adrian IG % 0.6 % Critically high 0.0-0.5 [facility] Comment on above: Performed By: #### C BC #### [facility] [address] [address] [address] Emely Adrian LYMPH # 1.7 103/ul Normal 1.2-3.8 [facility] Comment on above: Performed By: #### C BC #### [facility] [address] [place] [address] Dr. Emely Adrian Lymphocytes/100 WBC (Bld) 19.7 % Critically low 20.5-60.0 [facility] Comment on above: Performed By: #### C BC #### [facility] [address] [place] [address] Dr. Emely Adrian MANUAL DIFF REQ NO Normal [facility] Comment on above: Performed By: #### C BC #### [facility] [address] [place] [address] Dr. Emely Adrian MCH (RBC) [Entitic mass] 31.7 pg Normal 25.9-34.0 [facility] Comment on above: Performed By: #### C BC #### [facility] [address] [place] [address] Dr. Emely Adrian MCHC (RBC) [Mass/Vol] 32.6 g/dL Normal 29.9-35.2 [facility] Comment on above: Performed By: #### C BC #### [facility] [address] [place] [address] Dr. Emely Adrian MCV (RBC) [Entitic vol] 97.3 fL Critically high 80.0-94.0 [facility] Comment on above: Performed By: #### C BC #### [facility] [address] [place] [address] Dr. Emely Adrian MONO # 1.0 103/ul Critically high 0.3-0.8 [facility] Comment on above: Performed By: #### C BC #### [facility] [address] [place] [address] Dr. Emely Adrian Monocytes/100 WBC (Bld) 12.4 % Critically high 1.7-12.0 [facility] Comment on above: Performed By: #### C BC #### [facility] [address] [place] [address] Dr. Emely Adrian NEUT # 5.4 103/ul Normal 1.4-6.5 [facility] Comment on above: Performed By: #### C BC #### [facility] [address] [place] [address] Dr. Emely Adrian Neutrophils/100 WBC (Bld) 64.0 % Normal 43.0-75.0 [facility] Comment on above: Performed By: #### C BC #### [facility] [address] [place] [address] Dr. Emely Adrian Platelet mean volume (Bld) [Entitic vol] 9.2 fL Critically low 9.5-13.5 [facility] Comment on above: Performed By: #### C BC #### [facility] [address] [place] [address] Dr. Emely Adrian PLT 417 103/ul Normal 150-450 [facility] Comment on above: Performed By: #### C BC #### [facility] [address] [place] [address] Dr. Emely Adrian RBC 3.31 106/ul Critically low 4.70-6.10 [facility] Comment on above: Performed By: #### C BC #### [facility] [address] [place] [address] Dr. Emely Adrian WBC 8.4 103/ul Normal 4.0-11.0 [facility] Comment on above: Performed By: #### C BC #### [facility] [address] [place] [address] Dr. Emely Adrian CTA CHEST WO W [...] KIRK CRUZ Date: 2021-10-27 06:37 Normal [facility]-09 SARS-CoV-2 (COVID-19) RNA ISIDRO+probe Ql (Unsp spec) Not detected Normal NOT DETECTED [facility] Comment on above: Result Comment: [...] for this test is supported by the Sales Marketing Manager of Health and Human Service's declaration that [...] T BASIM, T7, EMILY WIGGINS, CMP #### [facility] [address] [address] [address] Emely Adrian D-DIMERon 10-27-2021 D-DIMER 2.19 mg/L FEU Critically high <=0.59 [facility] Comment on above: Performed By: #### T BASIM, T7, EMILY WIGGINS, CMP #### [facility] [address] [address] [address] Emely Adrian D-DIMER COMMENTS SEE BELOW Normal The [facility] Comment on above: Result Comment: Incr eases [...] T BASIM, Royer, EMILY WIGGINS, CMP #### [facility] [address] [address] [address] Emely Adrian DIGOXINon 10-27-2021 DIG <0.2 Critically low 0.9-2.0 The [facility] Comment on above: Performed By: #### T BASIM, T7, EMILY WIGGINS, CMP #### [facility] [address] [address] [address] Emely Adrian ECHOCARDIO M/2D COMPLETEon 0 10-27-2021 ECHOCARDIO M/2D COMPLETE Patient: PABLO BECKMAN Exam Date: 10/27/2021 : 1955 Gender:M Ordering : DR LV HEARD . Admission #: [id number] Family : Order #: [id number] CLICK HERE TO VIEW EXAM ECHOCARDIOGRAM REPORT [...] M.D. on 10/27/2021 at 17:01 Normal [facility] LACTATE/LACTIC ACIDon 2021 Lactate [Moles/Vol] 0.5 mmol/L Normal 0.4-1.9 [facility] Comment on above: Performed By: #### T SH, T7, LIPA, EMILY, CMP #### [facility] [address] [address] [address] Emely Adrian Lactate [Moles/Vol] 0.5 mmol/L Normal 0.4-1.9 [facility] Comment on above: Performed By: #### C BC #### [facility] [address] [place], [place] [address] Dr. Emely Adrian PROF CHEM 8 ([facility])on Anion gap [Moles/Vol] 15.3 mmol/L Normal [facility] Comment on above: Performed By: #### C BC #### [facility] [address] [address] [address] Emely Adrian Calcium [Mass/Vol] 9.1 mg/dL Normal 8.5-10.1 [facility] Comment on above: Performed By: #### C BC #### [facility] [address] [address] [address] Emely Adrian Chloride [Moles/Vol] 105 mmol/L Normal 98-107 [facility] Comment on above: Performed By: #### C BC #### [facility] [address] [place] [address] Dr. Emely Adrian CO2 [Moles/Vol] 26.6 mmol/L Normal 21.0-32.0 [facility] Comment on above: Performed By: #### C BC #### [facility] [address] [place] [address] Dr. Emely Adrian Creatinine [Mass/Vol] 1.29 mg/dL Normal 0.70-1.30 [facility] Comment on above: Performed By: #### C BC #### [facility] [address] [place] [address] Dr. Emely Adrian EGFR-AF NIUEAN >60 Normal >=60 The [facility] Comment on above: Performed By: #### C BC #### [facility] [address] [place] [address] Dr. Emely Adrian EGFR-NON AF NIUEAN 56 mL/min/1.73m2 Critically low >=60 [facility] Comment on above: Performed By: #### C BC #### [facility] [address] [address] [address] Emely Adrian Glucose [Mass/Vol] 100 mg/dL Normal 74-106 [facility] Comment on above: Performed By: #### C BC #### [facility] [address] [place] [address] Dr. Emely Adrian Potassium [Moles/Vol] 3.9 mmol/L Normal 3.5-5.1 [facility] Comment on above: Performed By: #### C BC #### [facility] [address] [place], [place] [address] Dr. Emely Adrian Sodium [Moles/Vol] 143 mmol/L Normal 136-145 [facility] Comment on above: Performed By: #### C BC #### [facility] [address] [place], [place] [address] Dr. Emely Adrian Urea nitrogen [Mass/Vol] 28.0 mg/dL Critically high 7.0-18.0 [facility] Comment on above: Performed By: #### C BC #### [facility] [address] [place], [place] [address] Dr. Emely Adrian Urea nitrogen/Creatinin e [Mass ratio] 21.7 mg/mg Normal [facility] Comment on above: Performed By: #### C BC #### [facility] [address] [place], [place] [address] Dr. Emely Adrian XR CHEST 1 Von [...] KARLY SAID Date: 2021-10-27 04:41 Normal [facility] Cardiovascular Lab Reporton 04-09-2021 Cardiovascular Lab Report [facility] Patient Name: Pablo Beckman [facility] MR #: [id number] Physician: Mamta Stephenson, Department of RESEARCH CONSULTANT Medicine Service Date: 04/07/2021 Division of Birthdate: 1955 Cardiology Room #: CC Adult Cardiovascular Services [place] [address] Cardiovascular Laboratory Report DATE OF PROCEDURE; 04/07/2021 [...] Weeks MD Date Trans: 04/09/2021 11:17 A/ MATTI_JN:[id number] Normal The [facility] Encounters Encounter Date Encounter Type Care Provider Facility Start: 08-08-2023 End: 08-08-2023 ambulatory MAMTA STEPHENSON [facility] Start: 06-21-2023 Telephone encounter Quinton [...] with patient Quinton Gonzáles MD Work Phone: [facility] Start: 06-23-2022 End: 06-24-2022 ambulatory LV Hoskins ROSEHarley Facility:[facility] Start: 06-22-2022 Telephone encounter Quinton Gonzáles MD Work Phone: Radiation Oncology Comment on above: Patient Question Start: 06-02-2022 End: 06-03-[address] JT GONZÁLES Facility:[facility] Start: 03-29-2022 End: 03-29-2022 Patient encounter procedure Patricio BEAUCHAMP General Surgery [facility]Alecia Yanez Start: 03-19-2022 Encounter for preprocedural laboratory examination DR PATRICIO Rosario [facility] Start: 03-18-2022 End: 03-18-[address] PATRICIO [...] Start: 04-07-2021 End: 04-08-2021 ambulatory MAMTA STEPHENSON Facility:[facility] Procedures Date Procedure Procedure Detail Performing Clinician Start: 08-08-2023 Follow-up visit Follow-up MAMTA STEPHENSON Start: 06-02-2022 End: 06-02-2022 PSA screening [facility] Provider Comment on above: Performed By: #### TSH, T7, EMILY WIGGINS C MP #### [facility] [address] [place] [address] Dr. Emely Adrian Start: 03-18-2022 Colonoscopy Patricio [employer] Start: 03-18-2022 Esophagogastroduodenoscopy Patricio [employer] Start: 10-17-2018 Colonoscopy Patricio [facility] Start: 09-11-2009 Colonoscopy Patricio NILL Amputation of finger, except thumb Patricio JUANL Arthroscopy of shoulder Meng george JUANL Implantation of radi oactive seed into prostate Patricio ScardsL Open reduction of fr acture with internal fixation Patricio [employer] Comment on above: right leg Umbilical herniorrha phy using surgical sutures Patricio [employer] Plan of Treatment Date Care Activity Detail Author Start: 06-12-2028 Prostate specific antigen measurement Prostate Cancer Screening Discussion [facility] Start: 06-02-2027 PROSTATE CANCER SCREENING DISCUSSION PROSTATE CANCER SCREENING DISCUSSION [facility] Start: 06-02-2027 Prostate specific antigen measurement Prostate Cancer Screening Discussion [facility] Start: 06-12-2024 End: 09-11-2024 Prostate specific Ag [Mass/volume] in Serum or Plasma PSA/PROSTSPECAG DIAG Lab Routine Malignant neoplasm of prostate (HCC) Expected: 06/12/2024, Expires: 09/11/2024 [facility] Work Phone: Comment on above: Expected: 06/12/2024 , Expires: 09/11/2024 Start: 05-23-2023 End: 08-22-2023 Prostate specific Ag [Mass/volume] in Serum or Plasma PSA/PROSTSPECAG DIAG Lab Routine Malignant neoplasm of prostate (HCC) Expected: 05/23/2023, Expires: 08/22/2023 [facility] Work Phone: Comment on above: Expected: 05/23/2023 , Expires: 08/22/2023 Start: 04-10-2023 Advance Directive Discussion Advance Directive Discussion [facility] Start: 04-10-2023 Depression Assessment Depression Ass essment [facility] Start: 01-18-2023 Pneumococcal Vaccine : 65+ (2 of 2 - PPSV23 or PCV20) Pneumococcal Vaccine: 65+ (2 of 2 - PPSV23 or PCV20) [facility] Start: 12-09-2022 Covid-19 Vaccine ( season) Covid-19 Vaccine ( season) [facility] Start: 12-09-2022 Influenza vaccination Influenza Vacc ine (#1) [facility] Start: 04-10-2022 ADVANCE DIRECTIVE DISCUSSION ADVANCE DIRECTIVE DISCUSSION [facility] Start: 04-10-2022 DEPRESSION ASSESSMENT DEPRESSION ASS ESSMENT [facility] Start: 12-09-2021 Influenza vaccination INFLUENZA (#1) [facility] Start: 2021 PNEUMOCOCCAL: 65+ (1 - PCV) PNEUMOCOCCAL: 65+ (1 - PCV) [facility] Start: 09-24-2020 COVID-19 VACCINE (3 - Booster for Pfizer series) COVID-19 VACCINE (3 - Booster for Pfizer series) [facility] Start: 2016 RSV Vaccine (1 - 1-d ose 60+ series) RSV Vaccine (1 - 1-dose 60+ series) [facility] Start: 2006 SHINGRIX VACCINE (1 of 2) SHINGRIX VACCINE (1 of 2) [facility] Start: 2001 COLOGUARD (FIT-DNA) COLOGUARD (FIT-D NA) [facility] Start: 2001 Colonoscopy COLONOSCOPY [facility] Start: 2001 COLORECTAL CANCER SCREENING COLORECTAL CANCER SCREENING [facility] Start: [address] COLONOGRAPHY [facility] Start: 2001 DIABETES SCREEN DIABETES SCREEN [facility] Start: 2001 Diabetes Screening Diabetes Screenin g [facility] Start: 2001 FECAL OCCULT BLOOD FECAL OCCULT BLOO D [facility] Start: 2001 Screening for malign ant neoplasm of colon [facility] Start: [address] [facility] Start: 10-21-1991 Lipid panel Lipid Screening [facility] Start: 10-21-1991 LIPID SCREEN LIPID SCREEN [facility] Start: 10-21-1975 Urine microalbumin profile [facility] Start: 1974 HEPATITIS C SCREENING HEPATITIS C [facility] Start: 1974 Hepatitis C screening Hepatitis C [facility] Start: 1974 HIV SCREENING HIV SCREENING [facility] Start: 1955 ABDOMINAL AORTIC ANEURYSM SCREENING ABDOMINAL AORTIC ANEURYSM SCREENING [facility] Start: 1955 Abdominal aortic aneurysm screening Abdominal Aortic Aneurysm Screening [facility] Immunizations Immunization Date Immunization Notes Care Provider Christian marte NEGATED: Highlighted row has not occurred!03-08-2022 influenza virus vaccine, unspecified formulation Patricio BEAUCHAMP [facility] [place] Payers Date Payer Category Payer Medicare DEVOTED MEDIC[facility] [id number] 2023-Present [phone] [address] [place] [address] O [id number] 2023 Unknown [id number] 2022 Private Health Insurance [facility] CHOICE PLUS [id number] 2022-Present [phone] [address] [place] [address] O [id number] 2006 Unknown [facility] GENERIC [id number] 2006-Present [phone] [place] [address] [id number] 1959 Unknown [id number] 1959 Unknown [id number] 1955 Unknown [id number] 1955 Unknown [id number] .[id number] 1955 Unknown [id number] .[id number] 1955 Unknown [id number] .[id number] 1955 Unknown [id number] .2.593 1955 Unknown [id number] .[id number] 1955 Unknown [id number] .[id number] 1955 Unknown [id number] .[id number] 1955 Unknown [id number] .[id number] Social History Date Type Detail Facility Start: 06-24-2020 End: 03-08-2022 Tobacco smoking status Ex-smoker (finding) [facility] [place] Tobacco smoking status Never [facility] Start: 06-24-2020 End: 06-23-2022 Sex Assigned At Male Eduin Kumar [facility] End: 06-10-1989 History of tobacco use Current smoker [facility] End: 06-10-1989 History of tobacco use Cigarette Smoker [facility] Start: 06-24-2020 End: 06-23-2022 Cigarettes smoked current (pack per day) - Reported 1.5 [facility] Start: 06-24-2020 Tobacco use and exposure Smokeless tobacco non-user [facility] Start: 06-24-2020 [facility] Start: 1955 Sex Assigned At Not on file [facility] Clinical Notes 03-18-2022 to 08-08-2023 Telephone Encounter - Latisha Rojas LPN - 06/21/2023 2:40 PM EDTTelephone Encounter - Josefina Anderson RN - 05/23/2023 9:43 AM ESTG Isidoro Gonzáles MD - 06/23/2022 10:11 AM EDT Note Date & Type Note Facility 08-08-2023 Note Cardiovascular Medic [facility] SUBJECTIVE Chief Complaint Patient presents with Follow-up [...] cuts himself at work. 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 He denies any changes since last seen [...] deficit present. Ment (more content not included)... [facility] 06-21-2023 Miscellaneous Notes Melvina called [...] PSA results are good. Please advise. Latisha Rjoas RN documented in this encounter [facility] 05-23-2023 Miscellaneous Notes PT called in to schedule follow up for this year. He will also need PSA. Please sign pended order and we will fax to [facility]. Josefina Anderson, RN documented in this encounter [facility] 06-23-2022 Note HNO ID: [id number] Author: Quinton Gonzáles MD Service: ? Author [...] Time Spent: 6 minutes Quinton Gonzáles MD [facility] 06-23-2022 History of Presen t illness [...] Quinton Gonzáles MD documented in this encounter [facility] 06-23-2022 Miscellaneous Notes Appointment has been changed in Epic. Kwaku Rasmussen Per Dr Gonzáles, ok to switch to phone visit. Patient was notified. PSS- please change in epic. Josefina Anderson RN Pablo called wondering if his follow up appointment can be switched to a phone visit tomorrow. Please advise. Latisha Rojas LPN documented in this encounter [facility] 03-18-2022 Note OPERATIVE NOTE OPERATION DATE: [...] good condition. CC: Lv Heard M.D. [facility] Evaluation + Plan note No data available for this section [facility] [place] Evaluation note Diagnosis Malignant neoplasm of prostate (HCC)- Primary Malignant neoplasm of prostate [facility] Diagnosis Malignant neoplasm of prostate (HCC)- Primary Malignant neoplasm of prostate documented in this encounter [facility] note* Diagnosis Malignant neoplasm of prostate (HCC)- Primary Malignant neoplasm of prostate documented in this encounter [facility] Discharge instructions No data available for this section [facility] [place] Progress note No data available for this section [facility] [place] Summary Purpose Family History No Family History [...] and content) DATE CREATED AUTHOR 04/15/2021 [facility] DATE CREATED AUTHOR AUTHOR'S ORGANIZ ATION 08/08/2022 [facility] DATE CREATED AUTHOR AUTHOR'S ORGANIZ ATION 06/16/2023 [facility] DATE CREATED AUTHOR AUTHOR'S ORGANIZ ATION 06/23/2023 [facility] DATE CREATED AUTHOR AUTHOR'S ORGANIZ ATION 12/09/2023 [facility] Patient Care team informatio n (unrecognized section and content) 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 Start Date End Date Lv Heard MD PCP - General 02/24/09 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 Start Date End Date Lv Heard MD PCP - General 02/24/09 Source Comments (unrecognize d section and content) In the event this informatio n is protected by the Federal Confidentiality of Alcohol and Drug Abuse Patient Records regulations: The Federal rules restrict any use of the information to criminally investigate or prosecute any alcohol or drug abuse patient.[facility] the event this information is protected by the Federal Confidentiality of Alcohol and Drug Abuse Patient Records regulations: The Federal rules restrict any use of the information to criminally investigate or prosecute any alcohol or drug abuse patient.[facility] the event this information is protected by the Federal Confidentiality of Alcohol and Drug Abuse Patient Records regulations: The Federal rules restrict any use of the information to criminally investigate or prosecute any alcohol or drug abuse patient.[facility] the event this information is protected by the Federal Confidentiality of Alcohol and Drug Abuse Patient Records regulations: The Federal rules restrict any use of the information to criminally investigate or prosecute any alcohol or drug abuse patient.[facility] Reason for Visit (unrecogniz ed section and content) Reason Comments Patient Question Reason Comments Established Patient Specialty Diagnoses / Procedures Referred By Contac t Referred To Contact Radiation Oncology / RADIATION ONCOLOGY Diagnoses Follow-up examination 1 yr follow up, psa at [place] Procedures OFFICE/OUTPATIENT ESTABLISHED MOD MDM 30-39 MIN EST PATIENT Quinton Gonzáles MD [address] [place] [address] [place] [address] Quinton Gonzáles MD [address] [place] [address] [place] [address] Referral ID Status Reason Start Date Expiration Date Visits Re quested Visits Authorized [id number] Open 06/23/2022 09/21/2022 1 0 Reason Comments [...] BE BASED ON THE PRIMARY CLINICAL RECORDS. [employer] [facility]. provides no warranty or guarantee of the accuracy or completeness of information in this document.
--- NOTE | 2024-06-03 09:25 | CT_ITS ---
The [address] [address] Patient Name: PABLO ROBERTS MRN: [id number] date: 1955 Sex: M Assigned Patient Location: CT Current Patient Location: CT Accession/Order Number: [id number] Exam Date: 06/03/2024 10:39 Report Date: 06/03/2024 10:58 At the request of: LV CHANCE MD Procedure: CT abdomen wo/w con CT ABDOMEN WITHOUT AND WITH INTRAVENOUS CONTRAST CLINICAL DATA: Follow-up left renal mass. COMPARISON: 02/03/2024 and 12/06/2023 Spiral images were obtained through the abdomen before and after intravenous administration of 100 mL of Omnipaque 300. This CT exam was performed using one or more following dose reduction techniques: Automated exposure control, adjustment of the mA and/or kV according to patient size, or use of iterative reconstruction technique. Limited cuts through the lung bases show atelectasis and/or scarring. There is bilateral perinephric fibrofatty stranding. The kidneys are within normal limits for size, position and contour. There are punctate bilateral renal calculi. There are no ureteral stones in the field of view. There is still an 11 mm hypodense exophytic nodule at the posterior lower pole of the left kidney. This does not show obvious enhancement for the small size and a cyst is suspected. No other renal mass lesions are identified. No hydronephrosis is noted. No calcified gallstones are identified. The liver, spleen, pancreas and adrenal glands show no acute finding. The abdominal aorta is normal caliber and there is minimal atherosclerotic plaque. There are a few small abdominal lymph nodes. No ascites is seen. The small bowel loops are not dilated. A duodenal diverticulum is again noted. There is mild colonic stool. Degenerative changes are visualized the spine. CT/CT abdomen wo/w con IMPRESSION: BILATERAL NEPHROLITHIASIS, WITHOUT OBSTRUCTION. CONTINUED TINY SUSPECTED EXOPHYTIC CYST AT THE POSTERIOR LEFT KIDNEY. NO ACUTE FINDINGS. Impression dictated by: Renea Odom M.D.06/03/2024 10:58 AM Dictation Location: [place] [address] Electronically authenticated by: [id number] Date: 06/03/2024 10:58
== END 2024-06-03 08:47 | disposition home or self-care (01) ==
LOC: CT 08:47
PROVIDERS: PCP Family Medicine; Visit Provider Family Medicine
DX: N28.89 Other specified disorders of kidney and ureter (principal); N20.0 Calculus of kidney; N28.1 Cyst of kidney, acquired
CPT/HCPCS: 74170; Q9967

== ENCOUNTER 2024-06-12 09:00 | Outpatient (OUT) | payer MEDICARE, SELFPAY ==
[2024-06-12 10:29] LABS: Prostate Specific Antigen Dx <0.13 ng/mL (<=4.00)
== END 2024-06-12 09:01 | disposition home or self-care (01) ==
LOC: LAB 09:02
PROVIDERS: PCP Family Medicine; Visit Provider Radiology Radiation Oncology
DX: C61 Malignant neoplasm of prostate (principal)
CPT/HCPCS: 36415; 84153

== ENCOUNTER 2024-06-12 09:06 | Outpatient (OUT) | payer MEDICARE, SELFPAY ==
[2024-06-12 09:39] LABS: Basophils Percent Auto 0.1 % (0.2-2.0); Eosinophils Absolute Auto 0.1 10^3/uL (0.0-0.7); Hematocrit 32.8 % (42.0-54.0); Immature Granulocytes Abs Auto 0.03 10^3/uL (0.00-0.03); Immature Granulocytes Pct Auto 0.4 % (0.0-0.5); Lymphocytes Absolute Auto 1.5 10^3/uL (1.2-3.8); Lymphocytes Percent Auto 21.9 % (20.5-60.0); Mean Corpuscular HGB Conc 33.5 g/dL (29.9-35.2); Mean Corpuscular Hemoglobin 32.9 pg (25.9-34.0); Mean Corpuscular Volume 98.2 fL (80.0-94.0); Mean Platelet Volume 9.3 fL (9.5-13.5); Monocytes Absolute Auto 1.1 10^3/uL (0.3-0.8); Monocytes Percent Auto 16.2 % (1.7-12.0); Neutrophils Absolute Auto 4.2 10^3/uL (1.4-6.5); Neutrophils Percent Auto 60.4 % (43.0-75.0); Platelet Count 306 10^3/uL (150-450); Red Blood Count 3.34 10^6/uL (4.70-6.10); Red Cell Distribution Width 14.7 % (11.0-15.0); White Blood Count 6.9 10^3/uL (4.0-11.0)
[2024-06-12 10:06] LABS: Anion Gap 14.1; BUN Creatinine Ratio 13.8; Calcium 8.9 mg/dL (8.5-10.1); Carbon Dioxide 26.6 mmol/L (21.0-32.0); Chloride 106 mmol/L (98-107); Estimated GFR (African America >60 (>=60 mL/min/1.73m^2); Estimated GFR (Non-African Ame 59 (>=60 mL/min/1.73m^2); Glucose 106 mg/dL (74-106); Potassium 3.7 mmol/L (3.5-5.1); Sodium 143 mmol/L (136-145)
== END 2024-06-12 09:07 | disposition home or self-care (01) ==
LOC: LAB 09:06
PROVIDERS: PCP Family Medicine; Visit Provider Internal Medicine Cardiovascular Disease
DX: C61 Malignant neoplasm of prostate (principal); R94.39 Abnormal result of other cardiovascular function study; R06.09 Other forms of dyspnea
CPT/HCPCS: 36415; 80048; 84153; 85025

== ENCOUNTER 2024-08-02 07:44 | Outpatient (OUT) | payer MEDICARE, SELFPAY ==
--- NOTE | 2024-08-02 08:00 | CA_ITS ---
Patient Name: PABLO ROBERTS MR#: [id number] : 1955 Exam Date: 08/02/2024 Ordering Doctor: MAMTA ARIAS CNP ECHOCARDIOGRAM REPORT PROCEDURE: CA ECHO DOPPLER COMPLETE INDICATIONS: Coronary artery disease, cardiac stents, hypertension COMPARISON: None. DESCRIPTION: COMPLETE ECHOCARDIOGRAM Real-time transthoracic echocardiography with 2D, M-mode, spectral and color flow Doppler performed. QUALITY: Technical quality was good. LEFT VENTRICLE: Normal chamber size. Mild concentric left ventricular hypertrophy. Normal systolic function. LV EF: Normal left ventricular ejection fraction, (55%). DIASTOLIC: Diastolic function is indeterminate. ATRIAL SEPTUM: Visually appears intact. LEFT ATRIUM: Moderate dilatation. RIGHT ATRIUM: Normal chamber size. RIGHT VENTRICLE: Normal chamber size. Normal right ventricular systolic function. TRICUSPID VALVE: Normal mobility and thickness. No stenosis with trivial regurgitation. Doppler studies reveal moderately (45-60) elevated right sided pressures. RVSP 53 mmHg MITRAL VALVE: Mildly thickened with normal mobility. No evidence of mitral valve stenosis. Mild mitral annular calcification. Mild mitral regurgitation. AORTIC VALVE: Normal trileaflet appearance. Mildly calcified aortic valve. Mildly diminished mobility. No evidence of aortic valve stenosis. Mild aortic regurgitation. AORTIC ROOT: Normal diameter and appearance, measuring 3.4 cm. Ascending aorta is mildly dilated (3.9 cm). PULMONIC VALVE: Not well visualized. No stenosis. Trivial regurgitation. PERICARDIUM: No evidence of pericardial effusion. IVC: IVC is dilated (2.5 cm), does not fully collapse. PLEURA: CONCLUSION: 1. Microcytic ventricular hypertrophy with normal systolic function. LVEF is estimated at 55%. 2. Normal right ventricular size and systolic function. 3. Moderate left atrial dilatation. 4. Mild aortic and mitral regurgitation. 5. Moderately elevated right-sided pressures. RVSP is 53 mmHg. 6. Mildly dilated ascending aorta measuring 3.9 cm. Adult Echocardiography Procedure Report Left Ventricle LVEDD (3.7 - 5.6 cm): 4.13 cm LVESD (2.2 - 4.0 cm): 2.90 cm LVIVS thickness (0.6 - 1.2 cm): 1.07 cm LVPW thickness (0.5 - 1.0 cm): 1.08 cm e': 0.10 m/s E - e': 8.52 LVOT Max Gradient: 2.58 mm[Hg] LVOT Area (cm2): 0.80 m/s Peak Velocity (LVOT): 0.80 m/s Mean Velocity (LVOT): 0.57 m/s LVOT Diameter 2.23 cm Left Atrium LA Volume Index (2D A2C): 44.50 ml/m2 Left Atrium Systolic Dimension: 3.80 cm Mitral Valve MV E to A Ratio: 1.28 Mitral Valve A-Wave Peak Velocity: 0.65 m/s Mitral Valve E-Wave Peak Velocity: 0.83 m/s Right Ventricle Aorta AO Root Diam: 3.42 cm Ascending Ao Diam: 3.93 cm Aortic Valve AoV Area (Peak Johnnie): 2.31 cm2, 2.31 cm2 AoV Area (VTI): 2.74 cm2, 2.74 cm2 Deceleration [place]: 1.26 m/s2 Pressure Half-Time: 537.05 ms Peak Velocity(Antegrade Flow): 1.35 m/s Peak Gradient(Antegrade Flow): 7.31 mm[Hg] Mean Velocity(Antegrade Flow): 0.87 m/s Mean Gradient(Antegrade Flow): 3.59 mm[Hg] Velocity Time Integral: 29.20 cm Tricuspid Valve Peak Velocity (Regurgitant Flow): 3.07 m/s Pulmonic Valve Mean Gradient: 1.29 mm[Hg] Mean Velocity: 0.54 m/s Peak Velocity: 0.82 m/s, 0.77 m/s Peak Gradient: 2.34 mm[Hg], 2.71 mm[Hg] Right Atrium Right Atrium Systolic Pressure: 61.19 ml, 61.19 ml Dictated by: Simba Fonseca M.D. on 08/02/2024 at 09:52 Approved by: Simba Fonseca M.D. on 08/02/2024 at 09:56
== END 2024-08-02 07:45 | disposition home or self-care (01) ==
LOC: CARD 07:45
PROVIDERS: PCP Family Medicine; Visit Provider Nurse Practitioner Family
DX: I25.10 Atherosclerotic heart disease of native coronary artery without angina pectoris (principal)
CPT/HCPCS: 93306

== ENCOUNTER 2024-12-23 09:14 | Outpatient (OUT) | payer MEDICARE, SELFPAY ==
--- NOTE | 2024-12-23 09:19 | MR_ITS ---
The [address] [address] Patient Name: PABLO ROBERTS MRN: [id number] date: 1955 Sex: M Assigned Patient Location: MRI Current Patient Location: MRI Accession/Order Number: [id number] Exam Date: 12/23/2024 09:45 Report Date: 12/23/2024 14:32 At the request of: LV HCANCE MD Procedure: MR lumbar spine wo con MRI lumbar spine performed without contrast INDICATION: Lumbar radiculopathy COMPARISON: CT lumbar spine 02/03/2024 FINDINGS: Lumbar vertebral heights are maintained. Mild multilevel intervertebral space narrowing L1-L5. Moderate entered using sterile L5-S1. Both medullary terminates normally at L2-L3. Minimal T1 hyperintense and T2 hyperintense endplate changes L3-L4 and L4-5. Evidence of endplate sclerosis involving the L5-S1 greatest left. T12-L1: No significant disease or disc protrusion. No axial images were obtained at this level. L1-2: Broad-based disc bulge with facet arthropathy. Mild central canal and mild neural foraminal narrowing identified. L2-L3: Broad-base disc bulge with [id number] facet arthropathy. Mild canal narrowing. There is mild right neural foraminal narrowing and [id number] left neural foraminal narrowing identified. L3-4: Circumferential disc bulge with moderate to severe right moderate left facet arthropathy. There is moderate severe right moderate left neural foraminal narrowing. L4-5: Broad-based bulge with [id number] facet arthropathy. This results in moderate right and [id number]-nc-[id number] left neural from narrowing. Canal is patent. L5-S1: Circumferential disc bulge with endplate osteophytosis and facet arthropathy. This results in moderate to severe bilateral neural foraminal narrowing. Small central disc protrusion noted. MR/MR lumbar spine wo con IMPRESSION: Multilevel degenerative changes greatest at L5-S1 and L3-4 with moderate severe foraminal narrowing bilaterally L5-S1 and on the right at L3-4.. No high-grade central stenosis identified. Impression dictated by: Hector Philip M.D. 12/23/2024 2:32 PM Dictation Location: [place] [address] Electronically authenticated by: [id number] Y Date: 12/23/2024 14:32
--- OUTSIDE RECORDS SUMMARY | 2024-12-23 09:19 | XMS_ITS | CCD ---
Author Organization [facility] CliniSyms Care Team Providers Care Carpenter Assembler Name Role Phone MAMTA STEPHENSON Attending Unavailable SELF, REFERRED Primary Care Unavailable SELF, REFERRED Referring Unavailable MAMTA STEPHENSON Admitting Unavailable Guillermo Heard Primary Care Physician Guillermo Heard MD Primary Care Provider [phone] NILL ., DR CURRY Admitting Unavailable [...] ., DR AWAN Admitting Unavailable ZIEBER, DR CARLOS Goins Consulting Unavailable HOY ., DR AWAN Attending Unavailable HOY ., DR AWAN Consulting Unavailable HOY ., DR AWAN Primary Care Unavailable HOY ., DR AWAN Admitting Unavailable ZIEBER, DR CARLOS Goins Consulting Unavailable HOY ., DR AWAN Attending Unavailable HOY ., DR AWAN Consulting Unavailable HOY ., DR AWAN Primary Care Unavailable HOY ., DR AWAN Admitting Unavailable ZIEBER, DR CARLOS Goins Consulting Unavailable ELVIN KEEN Consulting Unavailable TU Rosario, BERENICE Consulting Unavailable KARLY BASS Consulting Unavailable SUGAR, DR ISIDRO Alcantara Admitting Unavailedward WOOTEN, DR ISIDRO Alcantara Attending Unavailabl e SUGAR, DR ISIDRO Alcantara Consulting Unavailabl e ROBSON ., DR AWAN Primary Care Unavailable PATRICIO ANTON Consulting Unavailable NILL Marlene, DR CURRY Admitting Unavailable NILL ., DR CURRY Attending Unavailable NILL ., DR CURRY Consulting Unavailable ROBSON Rosario, DR AWAN Primary Care Unavailable SAIMA WEI Attending Guillermo Virk Referring Unavailable SAIMA WEI Admitting Unavailab SAIMA Fagan Attending Guillermo Virk MD Primary Care Provider [phone] Quinton GONZÁLES Attending Unavailable GUILLERMO HEARD Referring Unavailable GUILLERMO HEARD Primary Care Unavailable MAMTA STEPHENSON Attending Unavailable ALGHOTHALEXI MCGOWAN Attending Unavailable ALGHOTHANI, MOHAMAD Admitting Unavailable ALGHOTHANI MOHAMAD Attending Unavailable ALGHOTHANI, MOHAMAD Referring Unavailable ALGHOTHANI, MOHAMAD Referring Unavailable Allergies Allergy Classification Reported Allergen(s) Allergy Type Date of Onset Reaction(s) Facility (1 source) No Known Medication Allergies; Translations: [No Known Medication Allergies] Propensity to adverse reactions (disorder) [facility] Repository Medications Current Medications Medication Drug Class(es) Dates Sig (Normalized) Sig (Original) apixaban 5 mg oral tablet (3 sources) Factor Xa Inhibitor Start: 03-04-2022 take 1 tablet by mouth twice daily Eliquis 5 mg oral tablet 5 mg = 1 tab(s), Oral, BID, Refills(s) 0 Start Date: 03/04/22 Status: Ordered aspirin 81 mg delayed release oral tablet (3 sources) Platelet Aggregation Inhibitor, Nonsteroidal Anti-inflammatory Drug Start: 03-08-2022 take 1 tablet by mouth once daily aspirin 81 mg Oral EC Tab 81 mg = 1 tab(s), Oral, Daily, Refills(s) 0 Start Date: 03/08/22 Status: Ordered ciprofloxacin 500 mg oral tablet (2 sources) Quinolone Antimicrobial Start: 06-10-2024 Cipro 500 mg Tab See Instructions, 1 tab po night prior to cysto. 1 tab po following cysto., # 2 tab(s), Refills(s) 0, Pharmacy: [facility] #[id number], 173, cm, 06/10/24 12:48:00 EST, Height/Length Dosing, 100, kg, 06/10/24 12:48:00 EST, Weight Dosing Start Date: 06/10/24 Status: Ordered diclofenac sodium 75 mg delayed release oral tablet (1 source) Nonsteroidal Anti-inflammatory Drug Start: 03-04-2022 take 1 tablet by mouth twice daily diclofenac sodium 75 mg Oral EC Tab 75 mg = 1 tab(s), Oral, BID, Refills(s) 0 Start Date: 03/04/22 Status: Ordered ferrous sulfate 325 mg delayed release oral tablet (3 sources) Start: 03-04-2022 take 1 tablet by mouth twice daily ferrous sulfate 325 mg oral enteric coated tablet 325 mg = 1 tab(s), Oral, BID, Refills(s) 0 Start Date: 03/04/22 Status: Ordered furosemide 20 mg oral tablet (2 sources) Loop Diuretic Start: 06-10-2024 take 1 tablet by mouth once daily Lasix 20 mg Tab 20 mg = 1 tab(s), Oral, Daily Start Date: 06/10/24 Status: Ordered lansoprazole 30 mg delayed release [...] Refills(s) 0 Start Date: 03/04/22 Status: Ordered meclizine hydrochloride 25 mg oral tablet (2 sources) Antiemetic Start: 06-10-2024 take 1 tablet by mouth once daily meclizine 25 mg Tab 25 mg = 1 tab(s), Oral, Daily Start Date: 06/10/24 Status: Ordered metoprolol tartrate 75 mg oral tablet (3 sources) beta-Adrenergic Mandeep Start: 03-04-2022 take 1 tablet by mouth twice daily metoprolol tartrate 75 mg oral tablet 75 mg = 1 tab(s), Oral, BID, Refills(s) 0 Start Date: 03/04/22 Status: Ordered Multivitamin capsule (6 sources) take 1 capsule by mouth once daily Multivitamin capsule Take 1 capsule by mouth once daily. Active take 1 capsule by mouth once sara ly Multivitamin capsule Take 1 capsule by mouth once daily. 0 Active Comment on above: Take 1 capsule by [facility] once daily. Multivitamins and Minerals (3 sources) Start: 9 Multivitamins and Minerals See Instructions, Refill(s) 0 Start Date: 10/02/18 Status: Ordered rosuvastatin calcium 20 mg oral tablet (3 sources) HMG-CoA Reductase Inhibitor Start: 2 take 1 tablet by mouth once daily rosuvastatin 20 mg Tab 20 mg = 1 tab(s), Oral, Daily, Refills(s) 0 Start Date: 03/08/22 Status: Ordered sucralfate 1000 mg oral tablet (1 source) Aluminum Complex Start: 2 take 1 tablet by mouth four times daily Carafate 1 gram Tab 1 gm = 1 tab(s), Oral, QID, # 120 tab(s), Refills(s) 3, Pharmacy: [facility] #[id number], 177.8, cm, 03/08/22 15:41:00 EST, Height/Length Dosing, 91, kg, 03/08/22 15:41:00 EST, Weight Dosing Start Date: 03/08/22 Status: Ordered Completed/Discontinued Medications Medication Drug Class(es) Dates Sig (Normalized) Sig (Original) Acetaminophen (5 sources) End: 06-18-2024 ACETAMINOPHEN (TYLENOL EXTRA STRENGTH ORAL) Take by mouth. 06/18/2024 Discontinued ACETAMINOPHEN (T YLENOL EXTRA STRENGTH ORAL) Take by mouth. 0 Active Comment on above: Take by mouth. celecoxib 200 mg oral capsule (5 sources) Nonsteroidal Anti-inflammatory Drug Start: 06-20-19 End: 06-19-19 celecoxib (CELEBREX) 200 mg capsule twice daily. 06/19/2018 06/18/2024 Discontinued Comment on above: twice daily. ibuprofen 200 mg oral tablet (5 sources) Nonsteroidal Anti-inflammatory Drug End: 06-19-19 take 1 tablet by mouth every six hours as needed ibuprofen (MOTRIN) 200 mg tablet Take 200 mg by mouth every 6 hours as needed. 06/18/2024 Discontinued Comment on above: Take 200 mg by mouth every 6 hours as needed. tamsulosin hydrochloride 0.4 mg oral capsule (5 sources) alpha-Adrenergic Mandeep Start: 06-28-19 End: 06-19-19 take 1 capsule by mouth once daily at bedtime tamsulosin ER (FLOMAX) 0.4 mg cap Take 1 capsule by mouth daily at bedtime. 30 capsule 11 06/27/2018 06/18/2024 Discontinued Comment on above: Take 1 capsule by mo uth daily at bedtime. TURMERIC, BULK, MISC (5 sources) End: 06-19-19 TURMERIC, BULK, MISC 06/18/2024 Discontinued TURMERIC, BULK, MISC valACYclovir 1000 mg oral tablet (5 sources) Herpesvirus Nucleoside Analog DNA Polymerase Inhibitor, Herpes Simplex Virus Nucleoside Analog DNA Polymerase Inhibitor, Herpes Zoster Virus Nucleoside Analog DNA Polymerase Inhibitor Start: 06-09-2018 End: 06-18-2024 valACYclovir (VALTREX) 1 gram tab 06/09/2018 06/18/2024 Discontinued Problems Active Problems Problem Classification Problem Date Documented Da te Episodic/Chronic Abdominal hernia (3 sources) Umbilical hernia 03-04-2022 Episodic Aortic; peripheral; and visceral artery aneurysms (7 sources) Aneurysm of thoracic aorta; Translations: [Thoracic aortic aneurysm, without rupture] Onset: 12-30-2021 03-04-2022 Chronic Calculus of urinary tract (3 sources) Kidney stone; Translations: [Calculus of kidney] Onset: 06-10-2024 06-10-2024 Episodic Cancer of prostate (3 sources) Malignant tumor of prostate; Translations: [Malignant neoplasm of prostate] Chronic Cancer of prostate (17 sources) History of malignant neoplasm of prostate; Translations: [Personal history of malignant neoplasm of prostate] Onset: 10-31-2013 10-02-2018 Episodic Cardiac dysrhythmias (4 sources) Atrial fibrillation; Translations: [Unspecified atrial fibrillation] Onset: 12-24-2021 03-04-2022 Chronic Cataract (3 sources) Cataract 03-04-2022 Chronic Coronary atherosclerosis and other heart disease (7 sources) Coronary arteriosclerosis; Translations: [Atherosclerotic heart disease of [place] coronary artery without angina pectoris] Onset: 12-24-2021 03-04-2022 Chronic Deficiency and other anemia (3 sources) Anemia 10-01-2018 Episodic Deficiency and other anemia (3 sources) Iron deficiency anemia 03-08-2022 Episodic Disorders of lipid metabolism (2 sources) Hyperlipidemia, unspecified; Translations: [Hyperlipidemia, unspecified] Onset: 06-03-2024 Chronic Diverticulosis and diverticulitis (5 sources) Diverticula of intestine; Translations: [Diverticulosis of intestine, part unspecified, without perforation or abscess without bleeding] Onset: 03-24-2022 Chronic Essential hypertension (7 sources) Hypertensive disorder; Translations: [Essential (primary) hypertension] Onset: 10-29-2021 03-04-2022 Chronic Gastritis and duodenitis (1 source) Unspecified chronic gastritis without bleeding; Translations: [UNS CHRONIC GASTRITIS W/O BLEEDING] Onset: 03-24-2022 Chronic Gastritis and duodenitis (7 sources) Gastritis; Translations: [Other gastritis without bleeding] Onset: 03-29-2022 Episodic Gastrointestinal hemorrhage (10 sources) Melena; Translations: [Rectal hemorrhage] Onset: 03-24-2022 03-08-2022 Episodic Genitourinary symptoms and ill-defined conditions (1 source) Blood in urine; Translations: [Gross hematuria] Onset: 06-10-2024 Episodic Gout and other crystal arthropathies (3 sources) Gout 03-04-2022 Chronic Hyperplasia of prostate (3 sources) Benign prostatic hyperplasia 03-04-2022 Chronic Immunizations and screening for infectious disease (3 sources) Raised Helicobacter pylori antibody 03-08-2022 Episodic Nutritional deficiencies (1 source) Vitamin D deficiency, unspecified; Translations: [VITAMIN D DEFICIENCY UNSPECIFIED] Onset: 03-02-2022 Chronic Osteoarthritis (1 source) Unspecified osteoarthritis, unspecified site; Translations: [UNSPECIFIED OSTEOARTHRITIS UNS SITE] Onset: 10-29-2021 Chronic Other aftercare (3 sources) Long-term current use of anticoagulant 03-04-2022 Episodic Other diseases of kidney and ureters (2 sources) Cyst of kidney 06-10-2024 Episodic Other diseases of kidney and ureters (1 source) Acquired renal cyst without neoplastic change; Translations: [Cyst of kidney, acquired] Onset: 06-10-2024 Episodic Other disorders of stomach and duodenum (3 sources) Indigestion 03-08-2022 Episodic Other gastrointestinal disorders (3 sources) Alteration in bowel elimination 03-08-2022 Episodic Other gastrointestinal disorders (3 sources) Occult blood in stools 03-04-2022 Episodic Other lower respiratory disease (2 sources) Other forms of dyspnea; Translations: [Other forms of dyspnea] Onset: 06-04-2024 Episodic Other nervous system disorders (3 sources) H/O: retinal detachment 03-04-2022 Episodic Other nervous system disorders (3 sources) Paresthesia 03-04-2022 Episodic Other nutritional; endocrine; and metabolic disorders (3 sources) Overweight in adulthood with body mass index of 25 or more but less than 30 03-08-2022 Episodic Other nutritional; endocrine; and metabolic disorders (3 sources) Unintentional weight loss 03-04-2022 Episodic Other screening for suspected conditions (not mental disorders or infectious disease) (4 sources) Encounter for screening for malignant neoplasm of rectum; Translations: [Other specified abnormal findings of blood chemistry] Onset: 10-29-2021 Episodic Residual codes; unclassified (3 sources) Sleep apnea 03-04-2022 Chronic Residual codes; unclassified (1 source) Sleep apnea, unspecified; Translations: [SLEEP APNEA UNSPECIFIED] Onset: 10-29-2021 Chronic Retinal detachments; defects; vascular occlusion; and retinopathy (3 sources) Epiretinal membrane 03-04-2022 Chronic Substance-related disorders (4 sources) Smoker; Translations: [Nicotine dependence, cigarettes, uncomplicated] Onset: 03-24-2022 03-04-2022 Chronic Unclassified (1 source) CONTACT W/AND (SUSP) EXPOS COVID-19; Translations: [CONTACT W/AND (SUSP) EXPOS COVID-19] Onset: 03-19-2022 Unclassified (1 source) PERSONAL HISTORY OF COVID-19; Translations: [PERSONAL HISTORY OF COVID-19] Onset: 10-29-2021 Past or Other Problems Problem Classification Problem Date Documented Da te Episodic/Chronic Deficiency and other anemia (4 sources) Iron [...] Translations: [VOLUME DEPLETION UNSPECIFIED] Onset: 03-13-2022 Episodic Malaise and fatigue (4 sources) Other fatigue; Translations: [OTHER FATIGUE] Onset: 03-09-2022 Episodic Nonspecific chest pain (5 sources) Chest pain, unspecified; Translations: [Other chest pain] Onset: 10-29-2021 Episodic Other aftercare (6 sources) Radiotherapy follow-up; Translations: [Encounter for follow-up examination after completed treatment for conditions other than malignant neoplasm] Onset: 06-10-2014 06-10-2014 Episodic Other aftercare (1 source) intermediate frame tender (current) use of anticoagulants; Translations: [[facility] CURRNT USE ANTICOAGULANTS] Onset: 03-24-2022 Episodic Other aftercare (1 source) [facility] (current) use of aspirin; Translations: [[facility] CURRENT USE OF ASPIRIN] Onset: 03-24-2022 Episodic Other aftercare (1 source) Other [facility] (current) drug therapy; Translations: [OTH [facility] CURRENT DRUG THERAPY] Onset: 03-24-2022 Episodic Other [...] Translations: [ABNORMAL WEIGHT LOSS] Onset: 02-25-2022 Episodic Screening and history of mental health and substance abuse codes (1 source) Personal history of nicotine dependence; Translations: [PERSONAL HISTORY OF NICOTINE DEPEND] Onset: 03-13-2022 Episodic Results Test Name Value Interpretation Reference Range Facility 36on 09-10-2024 36 He can take 2 tablet s in the AM instead, follow-up BMP in 1-2 weeks. Thanks [facility] 36on 08-15-2024 36 Okay, higher than go al of <130/90. We will see how his BP responds to increase in lasix. Follow-up BP check in 2 weeks please and thank you! [facility] 36on 08-14-2024 36 We can do that instjayda bourgeois, follow-up BMP in 1-2 weeks after the increase. Thanks [facility] Follow-Upon 07-18-2024 Follow-Up [id number] Hanna Beckman 1955 M Date Provider Department Center 07/18/2024 MAMTA EGAN CARD [facility] Family History Problem Relation Age of Onset Stroke Mother Parkinsonism Father Family Status - Relation Status Age at Mother Father Sister Alive Level of Service:55064 [place] OFFICE/OUTPATIENT ESTABLISHED MOD MDM 30 MIN Reason for Visit and Comments: Coronary Artery Disease [187] Hypertension [987442] Hyperlipidemia [182] [facility] Telephoneon 07-18-2024 Telephone [id number] Hanna Beckman 1955 M Date Provider Department Center 07/18/2024 HEBER SIDDIQUI CARD [facility] Family History Problem Relation Age of Onset Stroke Mother Parkinsonism Father Family Status - Relation Status Age at Mother Father Sister Alive [facility] CNPMel 06-20-2024 CNPN Telephone (RADTSA) PABLO BECKMAN ([id number]) 1955 M Date Time Provider Department 06/20/24 Quinton GONZÁLES During your visit today, we recorded the following information about you: Josefina Anderson, RN 06/20/2024 9:58 AM Signed Message Received: 2 days ago Quinton Gonzáles MD [facility] Nurse [place]; Josefina Mulligan One year with Bel Thapa 06/20/2024 11:07 AM Signed Appointment scheduled in 1 year, will need to fax PSA order to [facility] when available. Josefina Anderson RN 06/20/2024 11:16 AM Signed GAYLE- please sign order. TOOTIE Nance Trisha 06/24/2024 12:59 PM Signed Pablo is scheduled for his 1 year follow up on 06/18/24 at 4:30. His lab order has been faxed to [facility]. Kitty Valle PSS Allergies As of Date: 06/20/2024 (No Known Allergies) Date Reviewed: 06/24/2020 Reviewed by: Felecia Benites (Christopher)CHRISTOPHER - Fully Assessed Reason for Visit: Future Appointment [256] Primary Visit Diagnosis:Personal history of prostate cancer [Z85.46] Order(s):PROSTATE-SPECIFIC ANTIGEN DIAGNOSTIC [SQPSA] Order #: [id number] FUTURE Prescriptions as of 06/24/2024 - Multivitamin capsule Take 1 capsule by mouth once daily. Problem List As Of Date 06/20/2024 Noted Resolved Personal history of prostate cancer [Z85.46] 10/31/2013 Radiotherapy follow-up [Z09] 06/10/2014 Encounter Status:Closed by JOSEFINA ANDERSON [facility] ------- Attestation signed by Alexi Weeks MD at 06/30/2024 8:33 PM Agree with fellow's note as documented. Alexi Weeks MD [facility] Patient: Pablo Beckman Procedure Information Date/Time: 06/19/24 1030 Procedure: Coronary angiography (Bilateral) Location: [facility] / [facility] (Cath) Providers: Alexi Weeks MD Clinical information reviewed: Allergies Meds Physical Exam Airway Mallampati: III Neck ROM: full Cardiovascular Rhythm: regular Rate: normal Dental Pulmonary Breath sounds clear to auscultation Abdominal (+) obese Anesthesia Plan ASA 3 other (Moderate Sedation) Anesthetic plan and risks discussed with patient. Use of blood products discussed with patient who consented to blood products. Additional Equipment Requests Normal [facility] HPon 06-19-2024 HP ------- Attestation signed by Alexi Weeks MD at 06/30/2024 6:30 PM Agree with fellow's note as documented above. Alexi Weeks MD History Of Present Illness Pablo Beckman is a 68 y.o. male presenting for coronary angiogram today for an abnormal stress test. Past medical history: Hypertension Hyperlipidemia Nonobstructive CAD (on cath in 03/30) Atrial fibrillation Ascending aortic aneurysm History of prostate CA A stress test was ordered for symptoms of dyspnea on exertion, that was positive for a basal lateral reversible perfusion defect. Patient was seen and examined today. He denies any chest pain or shortness of breath. Patient is aware of the procedure. All questions/ concerns have been addressed. Past Medical History He has a past medical history of Aneurysm, Atrial fibrillation (CMS/HCC), Coronary artery disease, Diastolic dysfunction, Hyperlipidemia, Hypertension, Left ventricular systolic dysfunction, and NSVT (nonsustained ventricular tachycardia) (CMS/HCC). Surgical History He has a past surgical history that includes Hand surgery; Leg Surgery; Rotator cuff repair; Vasectomy; and Cardiac catheterization. Social History He reports that he has quit smoking. His smoking use included cigarettes. He has never used smokeless tobacco. He reports current alcohol use. He reports that he does not use drugs. Allergies Patient has no known allergies. Medications No medications prior to admission. Review of Systems All other systems reviewed and are negative. Physical Exam Constitutional: Appearance: Normal appearance. Cardiovascular: Rate and Rhythm: Normal rate and regular rhythm. Pulses: Normal pulses. Pulmonary: Effort: Pulmonary effort is normal. Breath sounds: Normal breath sounds. Skin: General: Skin is warm. Neurological: Mental Status: He is alert. Psychiatric: Mood and Affect: Mood normal. Last Recorded Vitals There were no vitals taken for this visit. Relevant Results No echocardiogram results found for the past 12 months Assessment/Plan Abnormal stress test Paroxysmal atrial fibrillation [id number] [moderate coronary artery disease of OM1 and distal LAD] on cath 2020 Hypertension Aortic aneurysm-stable at 4.2 cm CTA chest -All prior tests have been reviewed. -Patient is scheduled for a coronary angiogram today. -Further recommendations post procedure. Normal [facility] NURSNOTEon 06-19-2024 NURSNOTE RN educated pt on d/ c instructions. This included: site care, limited physical activity, resume normal diet, future appointments, medications, and moderate sedation instructions. RN educated pt on when to notify physician and when to go to the hospital. RN provided pt with arm sling and educated pt on importance of not using arm for 24 hours for radial sites. RN encouraged pt to voice any questions or concerns, and answered any questions or concerns if pt verbalized. Pt was wheeled off of unit with all of belongings. Normal [facility] Urine Cytology ([facility])on 0 06-13-2024 Microscopic exam Cytology (U) [Interp] Diagnosis Info Invalid Interpretation Code [facility] Comment on above: Result Comment: A:Ur ine,Urine:Voided Interpretation - Adequate cellularity for evaluation. CPT 45526 MicroScopic Description - Adequacy - Gross Description Site ID:A color Bright Yellow fixative Alcohol Specimen designated Urine received in alcohol preservative and labeled with the patient???s name, consists of 110ml clear bright yellow fluid. Electronically signed by : on: 06/13/2024 14:03:40 Performed By: #### 1 [id number] #### [facility] [address] [place] [address] PSA (OUTSIDE)on 06-12-2024 [facility] Urine Cytology ([facility])on 0 06-10-2024 UC Method of Extraction Voided Normal [facility] Comment on above: Performed By: #### 1 [id number] #### [facility] [address] [place] [address] UC Number of Jars 1 Invalid Interpretation Code [facility] Comment on above: Performed By: #### 1 [id number] #### [facility] [address] [place] [address] UC Specimen Urine Normal [facility] Comment on above: Performed By: #### 1 [id number] #### [facility] [address] [place] [address] Type of Service Technical Only Normal [facility] Comment on above: Performed By: #### 1 [id number] #### [facility] [address] [place] [address] Urology Office/Clinic Noteon 06-10-2024 Urology Office/Clinic Note Urology Office/Clinic Note Chief Complaint New patient, gross hematuria, renal mass (cyst) HPI Staff 68 year old male new patient referred for gross hematuria. CT AP w/wo con 06/03/24 TB (report printed and scanned) - There is bilateral perinephric fibrofatty stranding. The kidneys are within normal limits for size, position and contour. There are punctate bilateral renal calculi. There are no ureteral stones in the field of view. There is still an 11 mm hypodense exophytic nodule at the posterior lower pole of the left kidney. This does not show obvious enhancement for the small size and a cyst is suspected. No other renal mass lesions are identified. No hydronephrosis is noted. Hx of prostate CA, tx'd w radium seeds 10/10/13. Follows with Dr. Gonzáles annually. PSA 06/13/23 - <0.13 05/08/24 - <0.1 IPSS: 6 SALMA: 0 Denies hematuria, denies dysuria. Denies abdominal pain. Has lower back discomfort right side since monday. Sometimes when trying to get up if he the urgency to go, he leaks a little. (getting up out of the chair or a vehicle) Review of Systems PHQ Score Initial Depression Screen Score: 4 SCORE Detailed Depression Screen Score: 8 Total Depression Screen Score: 12 No fever, chills, malaise, myalgia. No dysuria, pain w/ ejaculation, pain w/ BM. No blood in ejaculate or stool. No change in urgency/frequency, straining, stream changes. No discharge, odor, or change in color of urine. No perineal pain/pressure, scrotal pain, or suprapubic pain. Physical Exam Vitals & Measurements T: 36.6 ???C(Temporal Artery) HR: 66(Peripheral) RR: 16 BP: 108/71 HT: 68 in HT: 173 cm WT: 100 kg WT: 220.462 lb BMI: 33.41 General: nontoxic, NAD Mouth: moist mucosa Lungs: normal respiratory effort Cardio: regular rate, good distal perfusion Abdomen: nondistended, no suprapubic distention or tenderness, no CVA tenderness Neurologic: Grossly normal Skin: No rashes or suspicious lesions Assessment/Plan 1. Gross hematuria (R31.0: Gross hematuria) Large volume hematuria about 1 yr ago. Recurred a few months ago, much smaller amount. Smoked x 20 [address]rs[address] [place]uit [place] [address]. [address] w/wo con 06/03/24 shows 1cm non-enhancing lesion, suspect cyst. Discussed options. The patient is aware that a distinct etiology of the hematuria may not be clear upon conclusion of the workup. Will initiate hematuria workup to include upper urinary tract imaging (already complete), as well as evaluation of the urinary cells with urine cytology (sent today) and possible a FISH test. A cystoscopy will be scheduled to rule out lower urinary tract pathology. The rationale for this workup has been discussed, and all questions have been answered. Informed consent will be obtained. The risks and benefits for cystoscopy have been discussed. The risks include bleeding, infection, and irritation of the bladder and urinary channel, among others. The patient, after being informed of procedural details and after questions have been answered, wishes to proceed. Full informed consent has been obtained. Will order Local anesthesia. Abx sent. Ordered: ciprofloxacin, See Instructions, 1 tab po night prior to cysto. 1 tab po following cysto., # 2 tab(s), Refills(s) 0, Pharmacy: [id number], 173, cm, 06/10/24 12:48:00 EST, Height/Length Dosing, 100, kg, 06/10/24 12:48:00 EST, Weight Dosing E&M of New Patient Moderate 45-59 Min 53257 Urnls Dip Stick Auto w/o Microscopy POC 04225 2. H/O prostate cancer (Z85.46: Personal history of malignant neoplasm of prostate) Hx of prostate CA, tx'd w radium seeds 10/10/13. Follows with Dr. Gonzáles annually. PSA 06/13/23 - <0.13 05/08/24 - <0.1 Ordered: E&M of New Patient Moderate 45-59 Min 56735 3. Kidney stones (N20.0: Calculus of kidney) CT 06/03/24 - There are punctate bilateral renal calculi. There are no ureteral stones in the field of view. Ordered: E&M of New Patient Moderate 45-59 Min 75405 4. Renal cyst (N28.1: Cyst of kidney, acquired) Advised pt small cysts do not require monitoring. Follow-up With When Contact Information [facility] [address] [place] [address] Business (1) Additional Instructions: our honey producer will be contacting you for follow-up Patient Education Hematuria, Adult Problem List/Past Medical History Ongoing Anemia Atrial fibrillation Bile reflux gastritis BMI 28.0-28.9,adult BPH (benign prostatic hyperplasia) Cataract Change in bowel habits Coronary arteriosclerosis Diverticulosis Dyspepsia Gout H/O prostate cancer Helicobacter pylori ab+ Helicobacter pylori gastritis History of retinal detachment HTN (hypertension) Hypertensive disorder Iron deficiency anemia Kidney stones [facility] current use of anticoagulant Macular puckering Melena Occult blood positive stool Paresthesia RB (rectal bleeding) Rectal bleeding Renal cyst Sleep apnea (more content not included)... Normal [facility] Comment on above: Result Comment: Elec tronically Signed By: WALLACE WEI PA-C\cindy\Date and Time Signed: 06/10/24 13:21 EST Office Visiton 06-03-2024 Follow-up visit [id number] Hanna Beckman 1955 M Date Provider Department Center 06/03/2024 [id number]-ALEXI WEEKS CARD [facility] Family History Problem Relation Age of Onset Stroke Mother Family Status - Relation Status Age at Mother Level of Service:79034 AR OFFICE/OUTPATIENT ESTABLISHED MOD MDM 30 MIN [facility] 36on 12-08-2023 36 I called and let Dr. Heard's office know of Jazz's recommendation. I also asked them to fax over the shared decision making from Dr. Heard so we can get the patient scheduled to see Jazz in office to discuss LAAO. [facility] 36 Yes, recommend holdi ng Eliquis until seen by GI and clearance from them that he can resume. We can ask Dr. Heard to comment if he recommends patient for Watchman and to note this in his office note. Thanks [facility] 36 Dr. Heard's office maddi led asking for recommendations for Eliquis hold s/p significant red blood in stools. He was seen in [facility] ED on 12/05. I have uploaded records into intermediate teacher for your review. There's no discharge summary or H&P. Just an ED report. Dr. Heard's office said Dr. Heard has him holding Eliquis for now. Please advise. Thanks. [facility] Covid-19 PCR (CVDTBH)on SARS-CoV-2 (COVID-19) RNA ISIDRO+probe Ql (Unsp spec) Not detected Normal NOT DETECTED [facility] Comment on above: Result Comment: This test is not yet approved or cleared by the [place] FDA. When there are no FDA-approved or cleared tests available, and other criteria are met, FDA can make tests available under an emergency access mechanism called an Emergency Use Authorization (EUA). The EUA for this test is supported by the Platform Engineer of Health and Human Service's (HHS's) declaration [...] T7, LIPA, EMILY, CMP #### [facility] [address] [place] [address] Dr. Emely Adrian CBC AUTO DIFFon 03-09-2022 BASO # 0.0 103/ul Normal 0.0-0.1 [facility] Comment on above: Performed By: #### T SH, T7, LIPA, EMILY, CMP #### [facility] [address] [place] [address] Dr. Emely Adrian Basophils/100 WBC (Bld) 0.1 % Critically low 0.2-2.0 [facility] Comment on above: Performed By: #### T SH, T7, LIPA, EMILY, CMP #### [facility] [address] [place] [address] Dr. Emely Adrian EO # 0.2 103/ul Normal 0.0-0.7 [facility] Comment on above: Performed By: #### T SH, T7, LIPA, EMILY, CMP #### [facility] [address] [place] [address] Dr. Emely Adrian Eosinophils/100 WBC (Bld) 3.2 % Normal 0.9-7.0 [facility] Comment on above: Performed By: #### T SH, T7, LIPA, EMILY, CMP #### [facility] [address] [place] [address] Dr. Emely Adrian Erythrocyte distribution width (RBC) [Ratio] 15.8 % Critically high 11.0-15.0 [facility] Comment on above: Performed By: #### T SH, T7, LIPA, EMILY, CMP #### [facility] [address] [place] [address] Dr. Emely Adrian Hematocrit (Bld) [Volume fraction] 26.6 % Critically low 42.0-54.0 [facility] Comment on above: Performed By: #### T SH, T7, LIPA, EMILY, CMP #### [facility] [address] [place] [address] Dr. Emely Adrian Hemoglobin (Bld) [Mass/Vol] 9.0 g/dL Critically low 14.0-18.0 [facility] Comment on above: Performed By: #### T SH, T7, LIPA, EMILY, CMP #### [facility] [address] [place] [address] Dr. Emely Adrian IG # 0.05 10e3/ul Critically high 0.00-0.03 [facility] Comment on above: Performed By: #### T SH, T7, LIPA, EMILY, CMP #### [facility] [address] [place] [address] Dr. Emely Adrian IG % 0.7 % Critically high 0.0-0.5 [facility] Comment on above: Performed By: #### T SH, T7, LIPA, EMILY, CMP #### [facility] [address] [place] [address] Dr. Emely Adrian LYMPH # 1.8 103/ul Normal 1.2-3.8 [facility] Comment on above: Performed By: #### T SH, T7, LIPA, EMILY, CMP #### [facility] [address] [place] [address] Dr. Emely Adrian Lymphocytes/100 WBC (Bld) 24.2 % Normal 20.5-60.0 [facility] Comment on above: Performed By: #### T SH, T7, LIPA, EMILY, CMP #### [facility] [address] [place] [address] Dr. Emely Adrian MANUAL DIFF REQ NO Normal [facility] Comment on above: Performed By: #### T SH, T7, LIPA, EMILY, CMP #### [facility] [address] [place] [address] Dr. Emely Adrian MCH (RBC) [Entitic mass] 32.7 pg Normal 25.9-34.0 [facility] Comment on above: Performed By: #### T SH, T7, LIPA, EMLIY, CMP #### [facility] [address] [place] [address] Dr. Emely Adrian MCHC (RBC) [Mass/Vol] 33.8 g/dL Normal 29.9-35.2 [facility] Comment on above: Performed By: #### T SH, T7, LIPA, EMILY, CMP #### [facility] [address] [place] [address] Dr. Emely Adrian MCV (RBC) [Entitic vol] 96.7 fL Critically high 80.0-94.0 [facility] Comment on above: Performed By: #### T SH, T7, LIPA, EMILY, CMP #### [facility] [address] [place] [address] Dr. Emely Adrian MONO # 1.3 103/ul Critically high 0.3-0.8 [facility] Comment on above: Performed By: #### T SH, T7, LIPA, EMILY, CMP #### [facility] [address] [place] [address] Dr. Emely Adrian Monocytes/100 WBC (Bld) 18.0 % Critically high 1.7-12.0 [facility] Comment on above: Performed By: #### T SH, T7, LIPA, EMILY, CMP #### [facility] [address] [place] [address] Dr. Emely Adrian NEUT # 4.0 103/ul Normal 1.4-6.5 [facility] Comment on above: Performed By: #### T SH, T7, LIPA, EMILY, CMP #### [facility] [address] [place] [address] Dr. Emely Adrian Neutrophils/100 WBC (Bld) 53.8 % Normal 43.0-75.0 [facility] Comment on above: Performed By: #### T SH, T7, LIPA, EMILY, CMP #### [facility] [address] [place] [address] Dr. Emely Adrian Platelet mean volume (Bld) [Entitic vol] 8.7 fL Critically low 9.5-13.5 [facility] Comment on above: Performed By: #### T SH, T7, LIPA, EMILY, CMP #### [facility] [address] [place] [address] Dr. Emely Adrian PLT 320 103/ul Normal 150-450 [facility] Comment on above: Performed By: #### T SH, T7, LIPA, EMILY, CMP #### [facility] [address] [place] [address] Dr. Emely Adrian RBC 2.75 106/ul Critically low 4.70-6.10 [facility] Comment on above: Performed By: #### T SH, T7, LIPA, EMILY, CMP #### [facility] [address] [place] [address] Dr. Emely Adrian WBC 7.5 103/ul Normal 4.0-11.0 [facility] Comment on above: Performed By: #### T SH, T7, LIPA, EMILY, CMP #### [facility] [address] [place] [address] Dr. Emely Adrian LACTATE/LACTIC ACIDon 2021 Lactate [Moles/Vol] 0.7 mmol/L Normal 0.4-1.9 [facility] Comment on above: Performed By: #### T SH, T7, LIPA, EMILY, CMP #### [facility] [address] [place] [address] Dr. Emely Adrian LIPASEon 03-09-2022 Lipase [Catalytic activity/Vol] 386.0 U/L Normal 73.0-393.0 [facility] Comment on above: Performed By: #### C BC #### [facility] [address] [place] [address] Dr. Emely Adrian PROF 14(COMP METB)on Albumin [Mass/Vol] 2.9 g/dL Critically low 3.4-5.0 [facility] Comment on above: Performed By: #### C MP #### [facility] [address] [address] [address] Emely Adrian Albumin/Globulin [Mass ratio] 0.7 {ratio} Normal [facility] Comment on above: Performed By: #### C MP #### [facility] [address] [place] [address] Dr. Emely Adrian ALP [Catalytic activity/Vol] 43 U/L Critically low 46-116 [facility] Comment on above: Performed By: #### C MP #### [facility] [address] [place] [address] Dr. Emely Adrian ALT [Catalytic activity/Vol] 23 U/L Normal 16-63 [facility] Comment on above: Performed By: #### C MP #### [facility] [address] [place] [address] Dr. Emely Adrian Anion gap [Moles/Vol] 13.4 mmol/L Normal [facility] Comment on above: Performed By: #### C MP #### [facility] [address] [place] [address] Dr. Emely Adrian AST [Catalytic activity/Vol] 21 U/L Normal 15-37 [facility] Comment on above: Performed By: #### C MP #### [facility] [address] [place] [address] Dr. Emely Adrian Bilirubin [Mass/Vol] 0.4 mg/dL Normal 0.2-1.0 [facility] Comment on above: Performed By: #### C MP #### [facility] [address] [place] [address] Dr. Emely Adrian Calcium [Mass/Vol] 8.3 mg/dL Critically low 8.5-10.1 [facility] Comment on above: Performed By: #### C MP #### [facility] [address] [place] [address] Dr. Emely Adrian Chloride [Moles/Vol] 104 mmol/L Normal 98-107 [facility] Comment on above: Performed By: #### C MP #### [facility] [address] [address] [address] Emely Adrian CO2 [Moles/Vol] 22.9 mmol/L Normal 21.0-32.0 [facility] Comment on above: Performed By: #### C MP #### [facility] [address] [address] [address] Emely Adrian Creatinine [Mass/Vol] 1.80 mg/dL Critically high 0.70-1.30 [facility] Comment on above: Performed By: #### C MP #### [facility] [address] [address] [address] Emely Adrian EGFR-AF ECUADOREAN 46 mL/min/1.73m2 Critically low >=60 [facility] Comment on above: Performed By: #### C MP #### [facility] [address] [place] [address] Dr. Emely Adrian EGFR-NON AF ECUADOREAN 38 mL/min/1.73m2 Critically low >=60 [facility] Comment on above: Performed By: #### C MP #### [facility] [address] [place] [address] Dr. Emely Adrian Globulin (S) [Mass/Vol] 4.3 g/dL Normal [facility] Comment on above: Performed By: #### C MP #### [facility] [address] [place] [address] Dr. Emely Adrian Glucose [Mass/Vol] 105 mg/dL Normal 74-[address] [facility] Comment on above: Performed By: #### C MP #### [facility] [address] [address] [address] Emely Adrian Potassium [Moles/Vol] 4.3 mmol/L Normal 3.5-5.1 [facility] Comment on above: Performed By: #### C MP #### [facility] [address] [address] [address] Emely Adrian Protein [Mass/Vol] 7.2 g/dL Normal 6.4-8.[address] [facility] Comment on above: Performed By: #### C MP #### [facility] [address] [place] [address] Dr. Emely Adrian Sodium [Moles/Vol] 136 mmol/L Normal 136-145 [facility] Comment on above: Performed By: #### C MP #### [facility] [address] [address] [address] Emely Adrian Urea nitrogen [Mass/Vol] 35.0 mg/dL Critically high 7.0-18.0 [facility] Comment on above: Performed By: #### C MP #### [facility] [address] [place] [address] Dr. Emely Adrian Urea nitrogen/Creatinin e [Mass ratio] 19.4 mg/mg Normal [facility] Comment on above: Performed By: #### C MP #### [facility] [address] [place] [address] Dr. Emely Adrian PROTIMEon 03-09-2022 INR Coag (PPP) [Relative time] 1.12 {INR} Normal [facility] Comment on above: Performed By: #### P TT, PT #### [facility] [address] [place] [address] Dr. Emely Adrian INR GUIDELINES SEE BELOW Normal [facility] Comment on above: Result Comment: DUSTIN RED INR: 2.0 - 3.0 CONDITIONS NOT LISTED BELOW 2.5 - 3.5 FOR PROSTHETIC HEART VALVE REPLACEMENT 2.5 - 3.5 RECURRENT THROMBOSIS Performed By: #### P TT, PT #### [facility] [address] [place] [address] Dr. Emely Adrian PT Coag (PPP) [Time] 12.0 s Critically high 9.0-11.6 [facility] Comment on above: Performed By: #### P TT, PT #### [facility] [address] [place] [address] Dr. Emely Adrian PTTon 03-09-2022 aPTT Coag (Bld) [Time] 32.1 s Normal 22.3-36.2 [facility] Comment on above: Performed By: #### P TT, PT #### [facility] [address] [place] [address] Dr. Emely Adrian TROPONIN, HIGH SENSITIVITYon 03-09-2022 HSTROP 12.0 pg/mL Normal 4.0-76.1 [facility] Comment on above: Result Comment: CUT- OFF POINTS HAVE BEEN ESTABLISHED BASED ON THE FOURTH UNIVERSAL DEFINITIONS OF MYOCARDIAL INFARCTION. THE UPPER REFERENCE LIMIT (URL) OF TROPONIN, DEFINED THE 99TH PERCENTILE OF cTnI DISTRIBUTION IN A REFERENCE POPULATION, HAS BEEN CONFIRMED THE DECISION THRESHOLD FOR IA DIAGNOSIS. Performed By: #### T SH, T7, LIPA, EMILY, CMP #### [facility] [address] [address] [address] Emely Adrian TYPE AND SCREENon 03-09-2022 TYPE AND SCREEN Negative Normal [facility] Comment on above: Performed By: #### T SH, T7, LIPA, EMILY, CMP #### [facility] [address] [address] [address] Emely Adrian XR CHEST 1 Von [...] PATRICIO ANTON Date: 2022-03-09 10:17 Normal [facility] CA 19-9on 02-26-2022 CA 19-9 4 U/mL Normal 0-35 [facility] Comment on above: Result Comment: [employer] Electrochemiluminescence Immunoassay (ECLIA) . Values obtained with different assay methods or kits cannot be used interchangeably. Results cannot be interpreted as absolute evidence of the presence or absence of malignant disease. Performed By: #### T SH, T7, LIPA, EMILY, CMP #### [facility] [address] [address] [address] Emely Adrian CEAon 02-26-2022 CEA 1.9 ng/mL Normal 0.0-4.7 [facility] Comment on above: Result Comment: Nons mokers <3.9 Smokers <5.6 . [facility] Electrochemiluminescence Immunoassay (ECLIA) . Values obtained with different assay methods or kits cannot be used interchangeably. Results cannot be interpreted as absolute evidence of the presence or absence of malignant disease. Performed By: #### T BASIM T7, LIPA, EMILY, CMP #### [facility] [address] [place] [address] Dr. Emely Adrian H PYLORI ANTIBODY IGGon 02-08 H. PYLORI IGG ABS 1.19 Index Value Critically high 0.00-0. 79 [facility] Comment on above: Result Comment: Nega tive <0.80 Equivocal 0.80 - 0.89 Positive >0.89 Performed By: #### C BC #### [facility] [address] [place] [address] Dr. Emely Adrian AMYLASEon 02-25-2022 Amylase [Catalytic activity/Vol] 118 U/L Critically high 25-115 [facility] Comment on above: Performed By: #### T BASIM T7, LIPA, EMILY, CMP #### [facility] [address] [place] [address] Dr. Emely Adrian CBC AUTO DIFFon 02-25-2022 BASO # 0.0 103/ul Normal 0.0-0.1 [facility] Comment on above: Performed By: #### T BASIM T7, LIPA, EMILY, CMP #### [facility] [address] [place] [address] Dr. Emely Adrian Basophils/100 WBC (Bld) 0.2 % Normal 0.2-2.0 [facility] Comment on above: Performed By: #### T BASIM T7, LIPA, EMILY, CMP #### [facility] [address] [place] [address] Dr. Emely Adrain EO # 0.1 103/ul Normal 0.0-0.7 [facility] Comment on above: Performed By: #### T BASIM, T7, LIPA, EMILY, CMP #### [facility] [address] [place] [address] Dr. Emely Adrian Eosinophils/100 WBC (Bld) 2.8 % Normal 0.9-7.0 [facility] Comment on above: Performed By: #### T BASIM, T7, LIPA, EMILY, CMP #### [facility] [address] [place] [address] Dr. Emely Adrian Erythrocyte distribution width (RBC) [Ratio] 15.6 % Critically high 11.0-15.0 [facility] Comment on above: Performed By: #### T SH, T7, LIPA, EMILY, CMP #### [facility] [address] [place] [address] Dr. Emely Adrian Hematocrit (Bld) [Volume fraction] 28.9 % Critically low 42.0-54.0 [facility] Comment on above: Performed By: #### T SH, T7, LIPA, EMILY, CMP #### [facility] [address] [place] [address] Dr. Emely Adrian Hemoglobin (Bld) [Mass/Vol] 9.5 g/dL Critically low 14.0-18.0 [facility] Comment on above: Performed By: #### T SH, T7, LIPA, EMILY, CMP #### [facility] [address] [place] [address] Dr. Emely Adrian IG # 0.04 10e3/ul Critically high 0.00-0.03 [facility] Comment on above: Performed By: #### T SH, T7, LIPA, EMILY, CMP #### [facility] [address] [place] [address] Dr. Emely Adrian IG % 0.9 % Critically high 0.0-0.5 [facility] Comment on above: Performed By: #### T SH, T7, LIPA, EMILY, CMP #### [facility] [address] [place] [address] Dr. Emely Adrian LYMPH # 1.3 103/ul Normal 1.2-3.8 [facility] Comment on above: Performed By: #### T SH, T7, LIPA, EMILY, CMP #### [facility] [address] [place] [address] Dr. Emely Adrian Lymphocytes/100 WBC (Bld) 29.6 % Normal 20.5-60.0 [facility] Comment on above: Performed By: #### T SH, T7, LIPA, EMILY, CMP #### [facility] [address] [place] [address] Dr. Emely Adrian MANUAL DIFF REQ NO Normal [facility] Comment on above: Performed By: #### T SH, T7, LIPA, EMILY, CMP #### [facility] [address] [place] [address] Dr. Emely Adrian MCH (RBC) [Entitic mass] 32.1 pg Normal 25.9-34.0 [facility] Comment on above: Performed By: #### T SH, T7, LIPA, EMILY, CMP #### [facility] [address] [place] [address] Dr. Emely Adrian MCHC (RBC) [Mass/Vol] 32.9 g/dL Normal 29.9-35.2 [facility] Comment on above: Performed By: #### T SH, T7, LIPA, EMILY, CMP #### [facility] [address] [place] [address] Dr. Emely Adrian MCV (RBC) [Entitic vol] 97.6 fL Critically high 80.0-94.0 [facility] Comment on above: Performed By: #### T SH, T7, LIPA, EMILY, CMP #### [facility] Laboratory [address] [place] [address] Dr. Emely Adrian MONO # 0.8 103/ul Normal 0.3-0.8 The [facility] Comment on above: Performed By: #### T SH, T7, LIPA, EMILY, CMP #### [facility] Laboratory [address] [place] [address] Dr. Emely Adrian Monocytes/100 WBC (Bld) 17.2 % Critically high 1.7-12.0 The [facility] Comment on above: Performed By: #### T SH, T7, LIPA, EMILY, CMP #### [facility] Laboratory [address] [place] [address] Dr. Emely Adrian NEUT # 2.2 103/ul Normal 1.4-6.5 The [facility] Comment on above: Performed By: #### T SH, T7, LIPA, EMILY, CMP #### [facility] Laboratory [address] [place] [address] Dr. Emely Adrian Neutrophils/100 WBC (Bld) 49.3 % Normal 43.0-75.0 [facility] Comment on above: Performed By: #### T SH, T7, LIPA, EMILY, CMP #### [facility] Laboratory [address] [place] [address] Dr. Emely Adrian Platelet mean volume (Bld) [Entitic vol] 9.2 fL Critically low 9.5-13.5 [facility] Comment on above: Performed By: #### T SH, T7, LIPA, EMILY, CMP #### [facility] Laboratory [address] [place] [address] Dr. Emely Adrian PLT 259 103/ul Normal 150-450 [facility] Comment on above: Performed By: #### T SH, T7, LIPA, EMILY, CMP #### [facility] Laboratory [address] [place] [address] Dr. Emely Adrian RBC 2.96 106/ul Critically low 4.70-6.10 [facility] Comment on above: Performed By: #### T SH, T7, LIPA, EMILY, CMP #### [facility] Laboratory [address] [place] [address] Dr. Emely Adrian WBC 4.4 103/ul Normal 4.0-11.0 [facility] Comment on above: Performed By: #### T SH, T7, LIPA, EMILY, CMP #### [facility] Laboratory [address] [place] [address] Dr. Emely Adrian FREE THYROXINE INDEX T7on FTI 1.80 Normal 1.30-4.50 [facility] Comment on above: Performed By: #### T SH, T7, LIPA, EMILY, CMP #### [facility] Laboratory [address] [place] [address] Dr. Emely Adrian T3U 34.0 % Normal 33.0-40.0 [facility] Comment on above: Performed By: #### T SH, T7, LIPA, EMILY, CMP #### [facility] Laboratory [address] [place] [address] Dr. Emely Adrian T4 [Mass/Vol] 5.30 ug/dL Normal 4.50-12.10 [facility] Comment on above: Performed By: #### T SH, T7, LIPSergio, EMILY, CMP #### [facility] Laboratory [address] [address] [address] Emely Adrian GI PANEL (PCR)on 02-25-2022 Adenovirus F 40/41 Not detected Normal NOT DETECTED [facility] Comment on above: Performed By: #### G IPANEL #### [facility] Laboratory [address] [place] [address] Dr. Emely Adrian Astrovirus Not detected Normal NOT DETECTED [facility] Comment on above: Performed By: #### G IPANEL #### [facility] Laboratory [address] [place] [address] Dr. Emely Adrian C. Diff toxin A/B Not detected Normal NOT DETECTED The [facility] Comment on above: Performed By: #### G IPANEL #### [facility] Laboratory [address] [place] [address] Dr. Emely Adrian Campylobacter Not detected Normal NOT DETECTED [facility] Comment on above: Performed By: #### G IPANEL #### [facility] Laboratory [address] [place] [address] Dr. Emely Adrian Cryptosporidium Not detected Normal NOT DETECTED [facility] Comment on above: Performed By: #### G IPANEL #### [facility] Laboratory [address] [place] [address] Dr. Emely Adrian Cyclos. Cayetanensis Not detected Normal NOT DETECTED The [facility] Comment on above: Performed By: #### G IPANEL #### [facility] Laboratory [address] [place] [address] Dr. Emely Adrian E. Coli O157 Not Applicable Normal Not Applicable The [facility] Comment on above: Performed By: #### G IPANEL #### [facility] Laboratory [address] [place] [address] Dr. Emely Adrian E. histolytica Not detected Normal NOT DETECTED [facility] Comment on above: Performed By: #### G IPANEL #### [facility] Laboratory [address] [place] [address] Dr. Emely Adrian EAEC Not detected Normal NOT DETECTED [facility] Comment on above: Performed By: #### G IPANEL #### [facility] Laboratory [address] [address] [address] Emely Adrian EIEC Not detected Normal NOT DETECTED [facility] Comment on above: Performed By: #### G IPANEL #### [facility] Laboratory [address] [address] [address] Emely Adrian EPEC Not detected Normal NOT DETECTED [facility] Comment on above: Performed By: #### G IPANEL #### [facility] Laboratory [address] [place] [address] Dr. Emely Adrian ETEC Not detected Normal NOT DETECTED [facility] Comment on above: Performed By: #### G IPANEL #### [facility] Laboratory [address] [place] [address] Dr. Emely Olsen Lamblia Not detected Normal NOT DETECTED [facility] Comment on above: Performed By: #### G IPANEL #### [facility] Laboratory [address] [place] [address] Dr. Emely STODDARD CONTROLS PASSED Normal [facility] Comment on above: Performed By: #### G IPANEL #### [facility] Laboratory [address] [place] [address] Dr. Emely RODRIGUEZ [facility] HEADER GI PANEL BACTERIA Normal T [facility] Comment on above: Performed By: #### G IPANEL #### [facility] Laboratory [address] [place] [address] Dr. Emely KAHN ECOLI GI PANEL DIARRHEAGEN IC E.COLI / SHIGELLA Normal The [facility] Comment on above: Performed By: #### G IPANEL #### [facility] Laboratory [address] [place] [address] Dr. Emely KAHN INFO SEE BELOW Normal [facility] Comment on above: Result Comment: EAEC - Enteroaggregative E. Coli EPEC- Enteropathogenic E. Coli ETEC- Enterotoxigenic E. Coli lt/st STEC- Shigella-like toxin-producing E. Coli stx1/stx2 EIEC- Shigella/Enteroinvasive E. Coli Performed By: #### G IPANEL #### [facility] Laboratory [address] [place] [address] Dr. Emely KAHN PARASITES GI PANEL PARASITES Normal The [facility] Comment on above: Performed By: #### G IPANEL #### [facility] Laboratory [address] [address] [address] Emely KAHN VIRUS GI PANEL VIRUSES Normal [facility] Comment on above: Performed By: #### G IPANEL #### [facility] Laboratory [address] [place] [address] Dr. Emely Adrian Norovirus GI/GII Not detected Normal NOT DETECTED The [facility] Comment on above: Performed By: #### G IPANEL #### [facility] Laboratory [address] [place] [address] Dr. Emely Adrian P. Shigelloides Not detected Normal NOT DETECTED [facility] Comment on above: Performed By: #### G IPANEL #### [facility] Laboratory [address] [place] [address] Dr. Emely Adrian Rotavirus A Not detected Normal NOT DETECTED [facility] Comment on above: Performed By: #### G IPANEL #### [facility] Laboratory [address] [place] [address] Dr. Emely Adrian Salmonella Not detected Normal NOT DETECTED [facility] Comment on above: Performed By: #### G IPANEL #### [facility] Laboratory [address] [place] [address] Dr. Emely Adrian Sapovirus Not detected Normal NOT DETECTED [facility] Comment on above: Performed By: #### G IPANEL #### [facility] Laboratory [address] [place] [address] Dr. Emely Adrian STEC Not detected Normal NOT DETECTED [facility] Comment on above: Performed By: #### G IPANEL #### [facility] Laboratory [address] [place] [address] Dr. Emely Adrian Vibrio Not detected Normal NOT DETECTED [facility] Comment on above: Performed By: #### G IPANEL #### [facility] Laboratory [address] [address] [address] Emely Adrian Vibrio Cholera Not detected Normal NOT DETECTED [facility] Comment on above: Performed By: #### G IPANEL #### [facility] Laboratory [address] [address] [address] Emely Adrian Y. Enterocolitica Not detected Normal NOT DETECTED The [facility] Comment on above: Performed By: #### G IPANEL #### [facility] Laboratory [address] [address] [address] Emely Adrian GLYCOHEMOGLOBIN A1Con 2021 ADA RECOMMENDATION SEE BELOW Normal The [facility] Comment on above: Result Comment: ADA RECOMMENDED LIMIT 4.0 - 6.0 ADA THERAPEUTIC TARGET < 7.0 ACTION SUGGESTED > 7.0 Performed By: #### T BASIM, T7, LIPA, EMILY, CMP #### [facility] Laboratory [address] [place] [address] Dr. Emely Adrian Glucose [Mass/Vol] 120 mg/dL Normal [facility] Comment on above: Performed By: #### T BASIM, T7, LIPA, EMILY, CMP #### [facility] Laboratory [address] [place] [address] Dr. Emely Adrian HbA1c (Bld) [Mass fraction] 5.8 % Normal 4.5-6.2 [facility] Comment on above: Performed By: #### T SH, T7, LIPA, EMILY, CMP #### [facility] Laboratory [address] [place] [address] Dr. Emely Adrian IRONon 02-25-2022 Iron [Mass/Vol] 55.0 ug/dL Critically low 65.0-175.0 [facility] Comment on above: Performed By: #### C BC #### [facility] Laboratory [address] [place] [address] Dr. Emely Adrian LIPASEon 02-25-2022 Lipase [Catalytic activity/Vol] 671.0 U/L Critically high 73.0-393.0 [facility] Comment on above: Performed By: #### T SH, T7, LIPA, EMILY, CMP #### [facility] Laboratory [address] [place] [address] Dr. Emely Adrian OCC BLD IMMUNO SCREENon 02-08 OCCULT BLOOD Positive Abnormal NEGATIVE [facility] Comment on above: Performed By: #### T SH, T7, LIPA, EMILY, CMP #### [facility] Laboratory [address] [place] [address] Dr. Emely Adrian PROF 14(COMP METB)on 022 Albumin [Mass/Vol] 3.0 g/dL Critically low 3.4-5.0 Th e [facility] Comment on above: Performed By: #### T SH, T7, LIPA, EMILY, CMP #### [facility] Laboratory [address] [place] [address] Dr. Emely Adrian Albumin/Globulin [Mass ratio] 0.8 {ratio} Normal [facility] Comment on above: Performed By: #### T SH, T7, LIPA, EMILY, CMP #### [facility] Laboratory [address] [place] [address] Dr. Emely Adrian ALP [Catalytic activity/Vol] 58 U/L Normal 46-116 [facility] Comment on above: Performed By: #### T SH, T7, LIPA, EMILY, CMP #### [facility] Laboratory [address] [place] [address] Dr. Emely Adrian ALT [Catalytic activity/Vol] 25 U/L Normal 16-63 [facility] Comment on above: Performed By: #### T SH, T7, LIPA, EMILY, CMP #### [facility] Laboratory [address] [place] [address] Dr. Emely Adrian Anion gap [Moles/Vol] 12.1 mmol/L Normal [facility] Comment on above: Performed By: #### T SH, T7, LIPA, EMILY, CMP #### [facility] Laboratory [address] [place] [address] Dr. Emely Adrian AST [Catalytic activity/Vol] 20 U/L Normal 15-37 [facility] Comment on above: Performed By: #### T SH, T7, LIPA, EMILY, CMP #### [facility] Laboratory [address] [place] [address] Dr. Emely Adrian Bilirubin [Mass/Vol] 0.2 mg/dL Normal 0.2-1.0 [facility] Comment on above: Performed By: #### T SH, T7, LIPA, EMILY, CMP #### [facility] Laboratory [address] [place] [address] Dr. Emely Adrian Calcium [Mass/Vol] 8.3 mg/dL Critically low 8.5-10.1 [facility] Comment on above: Performed By: #### T SH, T7, LIPA, EMILY, CMP #### [facility] Laboratory [address] [place] [address] Dr. Emely Adrian Chloride [Moles/Vol] 108 mmol/L Critically high 98-107 [facility] Comment on above: Performed By: #### T SH, T7, LIPA, EMILY, CMP #### [facility] Laboratory [address] [place] [address] Dr. Emely Adrian CO2 [Moles/Vol] 24.5 mmol/L Normal 21.0-32.0 [facility] Comment on above: Performed By: #### T SH, T7, LIPA, EMILY, CMP #### [facility] Laboratory [address] [place] [address] Dr. Emely Adrian Creatinine [Mass/Vol] 0.97 mg/dL Normal 0.70-1.30 [facility] Comment on above: Performed By: #### T SH, T7, LIPA, EMILY, CMP #### [facility] Laboratory [address] [place] [address] Dr. Emely Adrian EGFR-AF ECUADOREAN >60 Normal >=60 [facility] Comment on above: Performed By: #### T SH, T7, LIPA, EMILY, CMP #### [facility] Laboratory [address] [place] [address] Dr. Emely Adrian EGFR-NON AF ECUADOREAN >60 Normal >=60 [facility] Comment on above: Performed By: #### T SH, T7, LIPA, EMILY, CMP #### [facility] Laboratory [address] [place] [address] Dr. Emely Adrian Globulin (S) [Mass/Vol] 3.8 g/dL Normal [facility] Comment on above: Performed By: #### T SH, T7, LIPA, EMILY, CMP #### [facility] Laboratory [address] [place] [address] Dr. Emely Adrian Glucose [Mass/Vol] 97 mg/dL Normal 74-[address] [facility] Comment on above: Performed By: #### T SH, T7, LIPA, EMILY, CMP #### [facility] Laboratory [address] [place] [address] Dr. Emely Adrian Potassium [Moles/Vol] 4.6 mmol/L Normal 3.5-5.1 The [facility] Comment on above: Performed By: #### T SH, T7, LIPA, EMILY, CMP #### [facility] Laboratory [address] [place] [address] Dr. Emely Adrian Protein [Mass/Vol] 6.8 g/dL Normal 6.4-8.[address] [facility] Comment on above: Performed By: #### T SH, T7, LIPA, EMILY, CMP #### [facility] Laboratory [address] [place] [address] Dr. Emely Adrian Sodium [Moles/Vol] 140 mmol/L Normal 136-[address] [facility] Comment on above: Performed By: #### T SH, T7, LIPA, EMILY, CMP #### [facility] Laboratory [address] [place] [address] Dr. Emely Adrian Urea nitrogen [Mass/Vol] 20.0 mg/dL Critically high 7.0-18.0 The [facility] Comment on above: Performed By: #### T SH, T7, LIPA, EMILY, CMP #### [facility] Laboratory [address] [place] [address] Dr. Emely Adrian Urea nitrogen/Creatinin e [Mass ratio] 20.6 mg/mg Normal [facility] Comment on above: Performed By: #### T SH, T7, LIPA, EMILY, CMP #### [facility] Laboratory [address] [place] [address] Dr. Emely Adrian TSHon 02-25-2022 TSH 1.247 uIU/mL Normal 0.358-3.740 [facility] Comment on above: Performed By: #### T BASIM T7, EMILY WIGGINS, CMP #### [facility] Laboratory [address] [place] [address] Dr. Emely Adrian VITAMIN D 25 OHon 02-25-2022 VIT D 25-OH 23.9 ng/mL Normal [facility] Comment on above: Performed By: #### C BC #### [facility] Laboratory [address] [place] [address] Dr. Emely Adrian VIT D RANGES SEE BELOW Normal [facility] Comment on above: Result Comment: <20 ng/mL Vit D deficient 20 - <30 ng/mL Vit D insufficient 30 - 100 ng/mL Vit D sufficient >100 ng/mL Potential Toxicity Performed By: #### C BC #### [facility] Laboratory [address] [place] [address] Dr. Emely Adrian CREATININEon 12-30-2021 Creatinine [Mass/Vol] 1.21 mg/dL Normal 0.70-1.30 [facility] Comment on above: Performed By: #### T BASIM T7, FELICIANO EMILY, CMP #### [facility] Laboratory [address] [place] [address] Dr. Emely Adrian EGFR-AF ECUADOREAN >60 Normal >=60 [facility] Comment on above: Performed By: #### T BASIM T7, FELICIANO EMILY, CMP #### [facility] Laboratory [address] [place] [address] Dr. Emely Adrian EGFR-NON AF ECUADOREAN =60 Normal >=60 [facility] Comment on above: Performed By: #### T BASIM T7, FELICIANO EMILY, CMP #### [facility] Laboratory [address] [place] [address] CHEST WO W [...] size since prior study. Electronically authenticated by: CARLOS CRUZ Date: 2021-12-30 08:46 Normal [facility] STRESS/REST MULTIon 11-09 HI STRESS/REST MULTI Patient: PABLO BECKMAN Exam Date: 11/09/2021 : 1955 Gender:M Ordering : DR GUILLERMO HEARD . Admission #: [id number] Family : Order #: [id number] CLICK HERE TO VIEW EXAM RADIOLOGY REPORT PROCEDURE: RADIONUCLIDE IMAGING STRESS/REST MULTI COMPARISON: HI STRESS/REST MULTI, 01/14/2021. INDICATIONS: Chest pain TECHNIQUE: [...] Low ejection fraction, 50%. Six Dictated by: Carlos Cruz M.D. on 11/09/2021 at 14:01 Approved by: Carlos Cruz M.D. on 11/09/2021 at 14:17 Normal [facility] CARDIAC PHILIP 3-6on 2 CK [Catalytic activity/Vol] 114 U/L Normal 39-308 [facility] Comment on above: Performed By: #### T SH, T7, LIPA, EMILY, CMP #### [facility] Laboratory [address] [address] [address] Emely Adrian CK.MB [Mass/Vol] 1.75 ng/mL Normal <=3.60 [facility] Comment on above: Performed By: #### T SH, T7, LIPA, EMILY, CMP #### [facility] Laboratory [address] [place] [address] Dr. Emely Adrian HSTROP 10.8 pg/mL Normal 4.0-76.1 [facility] Comment on above: Result Comment: CUT- OFF POINTS HAVE BEEN ESTABLISHED BASED ON THE FOURTH UNIVERSAL DEFINITIONS OF MYOCARDIAL INFARCTION. THE UPPER REFERENCE LIMIT (URL) OF TROPONIN, DEFINED THE 99TH PERCENTILE OF cTnI DISTRIBUTION IN A REFERENCE POPULATION, HAS BEEN CONFIRMED THE DECISION THRESHOLD FOR IA DIAGNOSIS. Performed By: #### T SH, T7, LIPA, EMILY, CMP #### [facility] Laboratory [address] [address] [address] Emely Adrian CK [Catalytic activity/Vol] 122 U/L Normal 39-308 [facility] Comment on above: Performed By: #### T SH, T7, LIPA, EMILY, CMP #### [facility] Laboratory [address] [place] [address] Dr. Emely Adrian CK.MB [Mass/Vol] 2.59 ng/mL Normal <=3.60 [facility] Comment on above: Performed By: #### T SH, T7, LIPA, EMILY, CMP #### [facility] Laboratory [address] [address] [address] Emely Adrian HSTROP 10.5 pg/mL Normal 4.0-76.1 The [facility] Comment on above: Result Comment: CUT- OFF POINTS HAVE BEEN ESTABLISHED BASED ON THE FOURTH UNIVERSAL DEFINITIONS OF MYOCARDIAL INFARCTION. THE UPPER REFERENCE LIMIT (URL) OF TROPONIN, DEFINED THE 99TH PERCENTILE OF cTnI DISTRIBUTION IN A REFERENCE POPULATION, HAS BEEN CONFIRMED THE DECISION THRESHOLD FOR IA DIAGNOSIS. Performed By: #### T SH, T7, LIPA, EMILY, CMP #### [facility] Laboratory [address] [place] [address] Dr. Emely Adrian CK [Catalytic activity/Vol] 130 U/L Normal 39-308 [facility] Comment on above: Performed By: #### C BC #### [facility] Laboratory [address] [place] [address] Dr. Emely Adrian CK.MB [Mass/Vol] 2.10 ng/mL Normal <=3.60 [facility] Comment on above: Performed By: #### C BC #### [facility] Laboratory [address] [place] [address] Dr. Emely Adrian HSTROP 10.2 pg/mL Normal 4.0-76.1 [facility] Comment on above: Result Comment: CUT- OFF POINTS HAVE BEEN ESTABLISHED BASED ON THE FOURTH UNIVERSAL DEFINITIONS OF MYOCARDIAL INFARCTION. THE UPPER REFERENCE LIMIT (URL) OF TROPONIN, DEFINED THE 99TH PERCENTILE OF cTnI DISTRIBUTION IN A REFERENCE POPULATION, HAS BEEN CONFIRMED THE DECISION THRESHOLD FOR IA DIAGNOSIS. Performed By: #### C BC #### [facility] Laboratory [address] [place] [address] Dr. Emely Adrian CARDIAC PHILIP ADMITon 022 CK [Catalytic activity/Vol] 164 U/L Normal 39-308 [facility] Comment on above: Performed By: #### C BC #### [facility] Laboratory [address] [place] [address] Dr. Emely Adrian CK.MB [Mass/Vol] 3.38 ng/mL Normal <=3.60 [facility] Comment on above: Performed By: #### C BC #### [facility] [address] [place] [address] Dr. Emely Adrian HSTROP 9.5 pg/mL Normal 4.0-76.1 [facility] Comment on above: Result Comment: CUT- OFF POINTS HAVE BEEN ESTABLISHED BASED ON THE FOURTH UNIVERSAL DEFINITIONS OF MYOCARDIAL INFARCTION. THE UPPER REFERENCE LIMIT (URL) OF TROPONIN, DEFINED THE 99TH PERCENTILE OF cTnI DISTRIBUTION IN A REFERENCE POPULATION, HAS BEEN CONFIRMED THE DECISION THRESHOLD FOR IA DIAGNOSIS. Performed By: #### C BC #### [facility] [address] [place] [address] Dr. Emely Adrian ADY 124 ng/mL Critically high 16-96 [facility] Comment on above: Performed By: #### C BC #### [facility] Laboratory [address] [place] [address] Dr. Emely Adrian CBC AUTO DIFFon 10-27-2021 BASO # 0.0 103/ul Normal 0.0-0.1 [facility] Comment on above: Performed By: #### C BC #### [facility] [address] [place] [address] Dr. Emely Adrian Basophils/100 WBC (Bld) 0.1 % Critically low 0.2-2.0 [facility] Comment on above: Performed By: #### C BC #### [facility] [address] [place] [address] Dr. Emely Adrian EO # 0.3 103/ul Normal 0.0-0.7 [facility] [facility] Comment on above: Performed By: #### C BC #### [facility] [address] [place] [address] Dr. Emely Adrian Eosinophils/100 WBC (Bld) 3.2 % Normal 0.9-7.0 [facility] Comment on above: Performed By: #### C BC #### [facility] [place] [facility] [address] [place] [address] Dr. Emely Adrian Erythrocyte distribution width (RBC) [Ratio] 13.6 % Normal 11.0-15.0 [facility] Comment on above: Performed By: #### C BC #### [facility] [place] [facility] [address] [place] [address] Dr. Emely Adrian Hematocrit (Bld) [Volume fraction] 32.2 % Critically low 42.0-54.0 [facility] Comment on above: Performed By: #### C BC #### [facility] [place] [facility] [address] [place] [address] Dr. Emely Adrian Hemoglobin (Bld) [Mass/Vol] 10.5 g/dL Critically low 14.0-18.0 [facility] Comment on above: Performed By: #### C BC #### [facility] [place] [facility] [address] [place] [address] Dr. Emely Adrian IG # 0.05 10e3/ul Critically high 0.00-0.03 [facility] Comment on above: Performed By: #### C BC #### [facility] [place] [facility] [address] [place] [address] Dr. Emely Adrian IG % 0.6 % Critically high 0.0-0.5 [facility] Comment on above: Performed By: #### C BC #### [facility] [place] [facility] [address] [place] [address] Dr. Emely Adrian LYMPH # 1.7 103/ul Normal 1.2-3.8 [facility] Comment on above: Performed By: #### C BC #### [facility] [place] [facility] [address] [place] [address] Dr. Emely Adrian Lymphocytes/100 WBC (Bld) 19.7 % Critically low 20.5-60.0 [facility] Comment on above: Performed By: #### C BC #### [facility] [place] [facility] [address] [place] [address] Dr. Emely Adrian MANUAL DIFF REQ NO Normal [facility] Comment on above: Performed By: #### C BC #### [facility] [place] [facility] [address] [place] [address] Dr. Emely Adrian MCH (RBC) [Entitic mass] 31.7 pg Normal 25.9-34.0 [facility] Comment on above: Performed By: #### C BC #### [facility] [place] [facility] [address] [place] [address] Dr. Emely Adrian MCHC (RBC) [Mass/Vol] 32.6 g/dL Normal 29.9-35.2 [facility] Comment on above: Performed By: #### C BC #### [facility] [place] [facility] [address] [address] [address] Emely Adrian MCV (RBC) [Entitic vol] 97.3 fL Critically high 80.0-94.0 [facility] Comment on above: Performed By: #### C BC #### [facility] [place] [facility] [address] [place] [address] Dr. Emely Adrian MONO # 1.0 103/ul Critically high 0.3-0.8 [facility] Comment on above: Performed By: #### C BC #### [facility] [place] [facility] [address] [place] [address] Dr. Emely dArian Monocytes/100 WBC (Bld) 12.4 % Critically high 1.7-12.0 [facility] Comment on above: Performed By: #### C BC #### [facility] [place] [facility] [address] [place] [address] Dr. Emely Adrian NEUT # 5.4 103/ul Normal 1.4-6.5 [facility] Comment on above: Performed By: #### C BC #### [facility] [place] [facility] [address] [place] [address] Dr. Emely Adrian Neutrophils/100 WBC (Bld) 64.0 % Normal 43.0-75.0 [facility] Comment on above: Performed By: #### C BC #### [facility] [address] [place] [address] Dr. Emely Adrian Platelet mean volume (Bld) [Entitic vol] 9.2 fL Critically low 9.5-13.5 [facility] Comment on above: Performed By: #### C BC #### [facility] [address] [place] [address] Dr. Emely Adrian PLT 417 103/ul Normal 150-450 [facility] Comment on above: Performed By: #### C BC #### [facility] [place] [facility] [address] [address] [address] Emely Adrian RBC 3.31 106/ul Critically low 4.70-6.10 [facility] Comment on above: Performed By: #### C BC #### [facility] [id number] Emely Adrian WBC 8.4 103/ul Normal 4.0-11.0 [facility] Comment on above: Performed By: #### C BC #### [facility] [place] [facility] [id number] Emely Adrian CTA CHEST WO W CONon 022 CTA CHEST WO W CON EXAMINATION: [...] ascending aorta, 4.4 cm. Electronically authenticated by: CARLOS CRUZ Date: 2021-10-27 06:37 Normal [facility] Covid-19 PCR (CVDTBH)on 10-09 SARS-CoV-2 (COVID-19) RNA ISIDRO+probe Ql (Unsp spec) Not detected Normal NOT DETECTED [facility] Comment on above: Result Comment: When diagnostic [...] for this test is supported by the [place] of Health and Human Service's declaration that [...] longer be used). Performed By: #### T SH, T7, LIPA, EMILY, CMP #### [facility] [place] [facility] [address] [place] [address] Dr. Emely Adrian D-DIMERon 10-27-2021 D-DIMER 2.19 mg/L FEU Critically high <=0.[address] [facility] Comment on above: Performed By: #### T SH, T7, LIPA, EMILY, CMP #### [facility] [place] [facility] [address] [place] [address] Dr. Emely Adrian D-DIMER COMMENTS SEE BELOW Normal [facility] Comment on above: Result Comment: Incr [...] T7, LIPA, EMILY, CMP #### [facility] [place] [facility] [address] [place], [place] [address] Dr. Emely Adrian DIGOXINon 10-27-2021 DIG <0.2 Critically low 0.9-2.0 [facility] Comment on above: Performed By: #### T SH, T7, LIPA, EMILY, CMP #### [facility] [place] [facility] [address] [place], [place] [address] Dr. Emely Adrian ECHOCARDIO M/2D COMPLETEon 0 10-27-2021 ECHOCARDIO M/2D COMPLETE Patient: PABLO BECKMAN Exam Date: 10/27/2021 : 1955 Gender:M Ordering : DR GUILLERMO HEARD . Admission #: [id number] Family : Order #: [id number] CLICK HERE TO VIEW EXAM ECHOCARDIOGRAM REPORT [...] 10/27/2021 at 17:01 Normal [facility] LACTATE/LACTIC ACIDon 2021 Lactate [Moles/Vol] 0.5 mmol/L Normal 0.4-1.9 [facility] Comment on above: Performed By: #### T SH, T7, LIPA, EMILY, CMP #### [facility] [address] [place] [address] Dr. Emely Adrian Lactate [Moles/Vol] 0.5 mmol/L Normal 0.4-1.9 [facility] Comment on above: Performed By: #### C BC #### [facility] [address] [place] [address] Dr. Emely Adrian PROF CHEM 8 (BAS METB)on Anion gap [Moles/Vol] 15.3 mmol/L Normal [facility] Comment on above: Performed By: #### C BC #### [facility] [place] [facility] [address] [place] [address] Dr. Emely Adrian Calcium [Mass/Vol] 9.1 mg/dL Normal 8.5-10.1 [facility] Comment on above: Performed By: #### C BC #### [facility] [address] [place] [address] Dr. Emely Adrian Chloride [Moles/Vol] 105 mmol/L Normal 98-107 [facility] Comment on above: Performed By: #### C BC #### [facility] [place] [facility] [address] [place] [address] Dr. Emely Adrian CO2 [Moles/Vol] 26.6 mmol/L Normal 21.0-32.0 [facility] Comment on above: Performed By: #### C BC #### [facility] [place] [facility] [address] [place] [address] Dr. Emely Adrian Creatinine [Mass/Vol] 1.29 mg/dL Normal 0.70-1.30 [facility] Comment on above: Performed By: #### C BC #### [facility] [place] [facility] [address] [place] [address] Dr. Emely Adrian EGFR-AF ECUADOREAN >60 Normal >=60 [facility] Comment on above: Performed By: #### C BC #### [facility] [place] [facility] [address] [address] [address] Emely Adrian EGFR-NON AF ECUADOREAN 56 mL/min/1.73m2 Critically low >=60 [facility] Comment on above: Performed By: #### C BC #### [facility] [place] [facility] [address] [address] [address] Emely Adrian Glucose [Mass/Vol] 100 mg/dL Normal 74-106 [facility] Comment on above: Performed By: #### C BC #### [facility] [place] [facility] [address] [address] [address] Emely Adrian Potassium [Moles/Vol] 3.9 mmol/L Normal 3.5-5.1 [facility] Comment on above: Performed By: #### C BC #### [facility] [place] [facility] [address] [address] [address] Emely Adrian Sodium [Moles/Vol] 143 mmol/L Normal 136-[address] [facility] Comment on above: Performed By: #### C BC #### [facility] [place] [facility] [address] [address] [address] Emely Adrian Urea nitrogen [Mass/Vol] 28.0 mg/dL Critically high 7.0-18.0 [facility] Comment on above: Performed By: #### C BC #### [facility] [place] [facility] [address] [address] [address] Emely Adrian Urea nitrogen/Creatinin e [Mass ratio] 21.7 mg/mg Normal [facility] Comment on above: Performed By: #### C BC #### [facility] [place] [facility] [address] [address] [address] Emely Adrian XR CHEST 1 Von [...] KARLY BASS Date: 2021-10-27 04:41 Normal [facility] Cardiovascular Lab Reporton 04-09-2021 Cardiovascular Lab Report [facility] Patient Name: [facility] MR #: [id number] Physician: Mamta Stephenson, Department of [employer] Medicine Service Date: 04/07/2021 Division of Birthdate: 1955 Cardiology Room #: [facility] Cardiovascular Services [facility] [address] [address] Cardiovascular Laboratory Report DATE OF PROCEDURE; 04/07/2021 [...] Weeks MD Date Trans: 04/09/2021 11:17 A/ [id number] Normal [facility] Vital Signs Date Time Vital Sign Value Performing Clinician Facility 06-10-2024 12:43-0500 Body temperature 97.88 [degF] WALLACE SANJUANA [facility] 06-10-2024 12:43-0500 Diastolic blood pressure 71 mm[Hg] WALLACE WEI [facility] 06-10-2024 12:43-0500 Heart rate 66 /min WALLACE SANJUANA [facility] 06-10-2024 12:43-0500 Respiratory rate 16 /min WALLACE SANJUANA [facility] 06-10-2024 12:43-0500 Systolic blood pressure 108 mm[Hg] WALLACE SANJUANA [facility] Encounters Encounter Date Encounter Type Care Provider Facility Start: 07-18-2024 End: 07-18-2024 ambulatory MAMTA STEPHENSON [facility] Start: 06-20-2024 End: 06-24-2024 Telephone encounter Quinton Gonzáles MD Work Phone: Radiation Oncology Comment on above: Future Appointment Start: 06-19-2024 ambulatory [facility] [place] Start: 06-19-2024 End: 06-19-2024 ambulatory [facility] Start: 06-18-2024 End: 06-19-2024 ambulatory Quinton Gonzáles MD Work Phone: Radiation Oncology Comment on above: Personal history of prostate cancer (Primary Dx) Start: 06-18-2024 End: 06-18-2024 Telemedicine consultation with patient Quinton Gonzáles MD Work Phone: Radiation Oncology Start: 06-10-2024 End: 06-10-2024 ambulatory PA-C WALLACE WEI [place] Start: 06-10-2024 End: 06-10-2024 Lab Drop off WALLACE WEI [facility] Start: 06-10-2024 End: 06-10-2024 ambulatory PA-C WALLACE WEI Facility:[facility] Start: 06-10-2024 End: 06-10-2024 Patient encounter procedure WALLACE WEI [facility] Start: 06-03-2024 End: 06-03-2024 ambulatory [facility] Start: 06-21-2023 Telephone encounter Quinton Gonzáles MD [...] Isidoro Gonzáles MD Work Phone: [facility] Start: 06-22-2022 Telephone encounter Quinton Isidoro Gonzáles MD Work Phone: Radiation Oncology Comment on above: Patient Question Start: 06-02-2022 End: 06-03-[address] JT GONZÁLES Facility:[facility] Start: 03-29-2022 End: 03-29-2022 Patient encounter procedure Patricio BEAUCHAMP [facility] Start: 03-19-2022 Encounter for preprocedural laboratory examination DR PATRICIO BEAUCHAMP . [facility] Start: 03-18-2022 End: 03-18-[address] PATRICIO BEAUCHAMP . Facility:[facility] Start: 03-14-2022 End: 03-15-[address] PATRICIO BEAUCHAMP . Facility:[facility] Start: 03-14-2022 End: 03-15-2022 Encounter for preprocedural laboratory examination DR PATRICIO BEAUCHAMP . Facility:[facility] Start: 03-09-2022 End: 03-09-[address] ISIDRO WOOTEN Facility:[facility] Start: 02-25-2022 End: 02-26-[address] GUILLERMO HEARD . Facility:[facility] Start: 12-30-2021 End: 12-31-[address] GUILLERMO HEARD . Facility:[facility] Start: 11-09-2021 End: 11-10-[address] GUILLERMO HEARD . Facility:[facility] Start: 10-27-2021 End: 10-27-[address] GUILLERMO HEARD . Facility:[facility] Start: 04-07-2021 End: 04-08-2021 ambulatory MAMTA STEPHENSON Facility:[facility] Procedures Date Procedure Procedure Detail Performing Clinician Start: 06-12-2024 PSA screening [facility] Provider Start: 06-02-2022 End: 06-02-2022 PSA screening [facility] Provider Comment on above: Performed By: #### TSH, FELICIANO Linton AMY, C #### [facility] [address] [place] [address] Dr. Emely Adrian Start: 03-18-2022 Colonoscopy Patricio BEAUCHAMP Start: 03-18-2022 Esophagogastroduodenoscopy Patricio MARTINEZL Start: 10-17-2018 Colonoscopy Patricio NILL Start: 09-11-2009 Colonoscopy Patricio MARTINEZL Amputation of finger, except thumb Patricio BEAUCHAMP Arthroscopy of shoulder Meng BEAUCHAMP Herniated structure (morphologic abnormality) WALLACEJIN WEI Implantation of radi oactive seed into prostate Patricio BEAUCHAMP Open reduction of fr acture with internal fixation Patricio BEAUCHAMP Comment on above: right leg Umbilical herniorrha phy using surgical sutures Patricio BEAUCHAMP Plan of Treatment Date Care Activity Detail Author Start: 10-21-2031 RSV Vaccine (1 - 1-d ose 75+ series) RSV Vaccine (1 - 1-dose 75+ series) [facility] Start: 06-12-2029 Prostate specific antigen measurement Prostate Cancer Screening Discussion [facility] Start: 06-12-2028 Prostate specific antigen measurement Prostate Cancer Screening Discussion [facility] Start: 06-02-2027 PROSTATE CANCER SCREENING DISCUSSION PROSTATE CANCER SCREENING DISCUSSION [facility] Start: 06-02-2027 Prostate specific antigen measurement Prostate Cancer Screening Discussion [facility] Start: 06-20-2025 End: 09-19-2025 Prostate specific Ag [Mass/volume] in Serum or Plasma PROSTATE-SPECIFIC ANTIGEN DIAGNOSTIC Lab Routine Personal history of prostate cancer Expected: 06/20/2025 (Approximate), Expires: 09/19/2025 [facility] Work Phone: Comment on above: Expected: 06/20/2025 (Approximate), Expires: 09/19/2025 Start: 06-18-2025 End: 06-18-2025 Follow-up encounter 06/18/2025 4:30 PM EDT [facility] [address] [place] [address] Quinton Gonzáles MD [address] [place] [address] 1 year follow up - PSA at [facility] Comment on above: 1 year follow up - P SA at [facility] Start: 06-12-2024 End: 09-11-2024 Prostate specific Ag [Mass/volume] in Serum or Plasma PSA/PROSTSPECAG DIAG Lab Routine Malignant neoplasm of prostate (HCC) Expected: 06/12/2024, Expires: 09/11/2024 [facility] Work Phone: Comment on above: Expected: 06/12/2024 , Expires: 09/11/2024 Start: 04-10-2024 Advance Directive Discussion Advance Directive Discussion [facility] Start: 12-10-2023 Covid-19 Vaccine ( season) Covid-19 Vaccine ( season) [facility] Start: 12-10-2023 Influenza vaccination Influenza Vacc ine (#1) [facility] Start: 05-23-2023 End: 08-22-2023 Prostate specific Ag [Mass/volume] in Serum or Plasma PSA/PROSTSPECAG DIAG Lab Routine Malignant neoplasm of prostate (HCC) Expected: 05/23/2023, Expires: 08/22/2023 [facility] Work Phone: Comment on above: Expected: 05/23/2023 , Expires: 08/22/2023 Start: 04-10-2023 Advance Directive Discussion Advance Directive Discussion [facility] Start: 04-10-2023 Depression Assessment Depression Ass essment [facility] Start: 01-18-2023 Pneumococcal Vaccine : 50+ (2 of 2 - PPSV23) Pneumococcal Vaccine: 50+ (2 of 2 - PPSV23) [facility] Start: 01-18-2023 Pneumococcal Vaccine : 65+ (2 of 2 - PPSV23 or PCV20) Pneumococcal Vaccine: 65+ (2 of 2 - PPSV23 or PCV20) [facility] Start: 12-09-2022 Covid-19 Vaccine ( season) Covid-19 Vaccine ( season) [facility] Start: 12-09-2022 Influenza vaccination Influenza Vacc ine (#1) [facility] Start: 04-10-2022 ADVANCE DIRECTIVE DISCUSSION ADVANCE DIRECTIVE DISCUSSION [facility] Start: 04-10-2022 DEPRESSION ASSESSMENT DEPRESSION ASS ESSMENT [facility] Start: 12-09-2021 Influenza vaccination INFLUENZA (#1) [facility] Start: 2021 PNEUMOCOCCAL: 65+ (1 - PCV) PNEUMOCOCCAL: 65+ (1 - PCV) [facility] Start: 09-24-2020 COVID-19 VACCINE (3 - Booster for Pfizer series) COVID-19 VACCINE (3 - Booster for Pfizer series) [facility] Start: 2016 RSV Vaccine (1 - 1-d ose 60+ series) RSV Vaccine (1 - 1-dose 60+ series) [facility] Start: 2006 SHINGRIX VACCINE (1 of 2) SHINGRIX VACCINE (1 of 2) [facility] Start: 2001 COLOGUARD (FIT-DNA) COLOGUARD (FIT-D NA) [facility] Start: [address] [facility] Start: 2001 COLORECTAL CANCER SCREENING COLORECTAL CANCER SCREENING [facility] Start: [address] COLONOGRAPHY [facility] Start: 2001 DIABETES SCREEN DIABETES SCREEN [facility] Start: 2001 Diabetes Screening Diabetes Screenin g [facility] Start: 2001 FECAL OCCULT BLOOD FECAL OCCULT BLOO D [facility] Start: 2001 Screening for malign ant neoplasm of colon [facility] Start: 2001 SIGMOIDOSCOPY SIGMOIDOSCOPY Hipolito [facility] Start: 10-21-1991 Lipid panel Lipid Screening [facility] Start: 10-21-[address] [facility] Start: 10-21-[address] [facility] Start: 1974 Anxiety Screening Anxiety Screening [facility] Start: 1974 Depression Screening Depression Scre ening [facility] Start: 1974 HEPATITIS C SCREENING HEPATITIS C [facility] Start: 1974 Hepatitis C screening Hepatitis C [facility] Start: 1974 HIV SCREENING HIV SCREENING [facility] Start: 1955 ABDOMINAL AORTIC ANEURYSM SCREENING ABDOMINAL AORTIC ANEURYSM SCREENING [facility] Start: 1955 Abdominal aortic aneurysm screening Abdominal Aortic Aneurysm Screening [facility] Immunizations Immunization Date Immunization Notes Care Provider Fa cility NEGATED: Highlighted row has not occurred!03-08-2022 influenza virus vaccine, unspecified formulation Patricio CAMILLE [facility] Payers Date Payer Category Payer Unknown [id number] 2023 Medicare DEVOTED MEDICARE DEVOTED HEALTH ID HMO [id number] 2023-Present [phone] [address] [place] [address] HMO [id number] 2023 Unknown [id number] 2022 Private Health Insurance [id number] 2006 Unknown [facility] [id number] 2006-Present [phone] [place] [address] [id number] 1959 Unknown [id number] 1959 Unknown [id number] 1955 Unknown [id number]. 2.647 1955 Unknown [id number]. 2.593 1955 Unknown [id number]. 2.593 1955 Unknown [id number]. 2.593 1955 Unknown [id number]. 2.593 1955 Unknown [id number]. 2.593 1955 Unknown [id number]. 2.593 1955 Unknown [id number]. 2.593 1955 Unknown [id number]. 2.593 1955 Unknown [id number]. [id number] 1955 Unknown [id number] [id number] Social History Date Type Detail Facility Start: 06-24-2020 End: 03-08-2022 Tobacco smoking status Ex-smoker (finding) [facility] Tobacco smoking status Never [facility] Start: 06-24-2020 End: 06-18-2024 Sex Assigned At Male [facility] Start: 06-11-1979 End: 06-10-1989 History of tobacco use Current smoker [facility] Start: 06-11-1979 End: 06-10-1989 History of tobacco use Cigarette Smoker [facility] Start: 06-24-2020 End: 06-18-2024 Cigarettes smoked current (pack per day) - Reported 1.5 [facility] Start: 06-24-2020 Tobacco use and exposure Smokeless tobacco non-user [facility] Start: 06-24-2020 Alcohol intake Not Asked Hipolito branham [facility] Start: 1955 Sex Assigned At Not on file [facility] Functional Status Date Assessment Result Facility 06-10-2024 Functional Status N/A [facility] 06-10-2014 Are you deaf, or do you have serious difficulty hearing Yes 06/10/2014 9:10 AM Josefina Davidson, [place] Yes [facility] 06-10-2014 Are you blind, or do you have serious difficulty seeing, even when wearing glasses No 06/10/2014 9:10 AM Josefina Davidson, [place] No [facility] 06-10-2014 Do you have serious difficulty walking or climbing stairs Yes 06/10/2014 9:10 AM Josefina Davidson, [place] Yes [facility] 06-10-2014 Do you have difficul ty dressing or bathing No 06/10/2014 9:10 AM Josefina Davidson, TO[place] No [facility] 06-10-2014 Because of a physica l, mental, or emotional condition, do you have difficulty doing errands alone such as visiting a physician's office or shopping No 06/10/2014 9:10 AM Josefina Davidson RN No [facility] Mental Status Date Assessment Result Facility 06-10-2014 Because of a physica l, mental, or emotional condition, do you have serious difficulty concentrating, remembering, or making decisions No 06/10/2014 9:10 AM Josefina Davidson RN No [facility] Clinical Notes 03-18-2022 to 07-18-2024 Telephone Encounter - Kitty Bruner - 06/24/2024 12:58 PM EDTTelephone Encounter - Kitty Bruner - 06/24/2024 12:58 PM EDTTelephone Encounter - Josefina Anderson RN - 06/20/2024 11:16 AM EDT Note Date & Type Note Facility 07-18-2024 Note Cardiovascular Medic [facility] SUBJECTIVE Chief Complaint Patient presents with Coronary Artery Disease Hypertension Hyperlipidemia Pablo Beckman is a 68 y.o. male here for follow-up. HPI Past medical history including hypertension, hyperlipidemia, nonobstructive CAD (on cath in 03/30), atrial fibrillation, and ascending aortic aneurysm. He also has a hx of prostate CA and follows with oncology. 07/18/2024 Since last seen he underwent a stress test for worsening ANDERSON, his stress test was abnormal. He underwent coronary angiogram which found 75% stenosis to OM1 and received a stent to that area. He states he is feeling better since his PCI. His ANDERSON is much improved. Denies c/o CP, orthopnea, PND, LE edema, dizziness/LH, palpitations, syncope. In November 2021, patient had a treadmill [...] he cuts himself at work. 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 He denies any changes since last seen [...] tachycardia) (CMS/HCC) Coronary artery disease Mixed hyperlipidemia Anemia Bile reflux gastritis BMI 28.0-28.9,adult BPH (benign prostatic hyperplasia) Cataract Change in bowel habits Diverticulosis Dyspepsia Gout Helicobacter pylori ab+ Helicobacter pylori gastritis History of retinal detachment Iron deficiency anemia [facility] current use of anticoagulant Macular puckering Melena Occult blood positive stool Paresthesia Personal history of prostate cancer Radiotherapy follow-up Rectal hemorrhage Sleep apnea Smoker Umbilical hernia Unintentional weight loss Abnormal stress test ANDERSON (dyspnea on exertion) Acquired spondylolisthesis Chest pain Diverticular disease of colon Hematuria Lumbar radicular pain Malignant tumor of prostate (CMS/HCC) Osteoarthritis of knee Other specified disorders of kidney and ureter Kidney stones Past Medical History: Diagnosis Date Aneurysm ascending aorta Atrial fibrillation (CMS/HCC) Coronary artery disease Diastolic dysfunction Hyperlipidemia Hypertension Left ventricular systolic dysfunction NSVT (nonsustained ventricular tachycardia) (CMS/HCC) Family History Problem Relation Name Age of Onset Stroke Mother Parkinsonism Father Social History Tobacco Use Smoking status: Former Types: Cigarettes Smokeless tobacco: Never Substance Use Topics Alcohol use: Yes Comment: OCCASIONAL Drug use: Never No Known Allergies Review of Systems Constitutional: Negative for chills, fever and malaise/fatigue. Cardiovascular: Negative for chest pain, dyspnea on exertion, irregular heartbeat, leg swelling, near-syncope, orthopnea, palpitations, paroxysmal nocturnal dyspnea and syncope. Hematologic/Lymphatic: Negative for bleeding problem. Bruises/bleeds easily. All other systems reviewed and are negative. OBJECTIVE Visit Vitals BP 134/74 (BP Location: Left arm, Patient Position: Sitting) Pulse 94 Ht 1.727 m (5' 8 ) Wt 100 kg (221 lb) SpO2 97% BMI 33.60 kg/m??? Smoking Status Former BSA 2.19 m??? Medications: Current Outpatient Medications: apixaban (Eliquis) 5 mg tablet, Take 1 tablet by mouth onc (more content not included)... [facility] 07-18-2024 Note Patient is here for a follow up appointment S/p PTCA stent. Patient states he get short of breath with exertion he denies chest pain. Patient would like to talk about possible stopping one of his blood thinners due to bruising. Review of Systems Cardiovascular: Positive for dyspnea on exertion. Hematologic/Lymphatic: Bruises/bleeds easily. [facility] 06-24-2024 Telephone encounter Note Pablo is scheduled for his 1 year follow up on 06/18/24 at 4:30. His lab order has been faxed to [facility]. Kitty B PSS [facility] 06-24-2024 Miscellaneous Notes Pablo is scheduled for his 1 year follow up on 06/18/24 at 4:30. His lab order has been faxed to [facility]. Kitty B PSS [facility]- please sign order. Josefina Anderson RN Appointment scheduled in 1 year, will need to fax PSA order to [facility] when available. Images from the original note were not included. Message Received: 2 days ago Quinton Gonzáles MD P [facility] Nurse Pool; Josefina Mulligan One year with psa documented in this encounter [facility] 06-20-2024 Telephone encounter Note GAYLE- please sign order. Josefina Anderson RN [facility] 06-20-2024 Telephone encounter Note Appointment scheduled in 1 year, will need to fax PSA order to [facility] when available. [facility] 06-20-2024 Telephone encounter Note Images from the original note were not included. Message Received: 2 days ago Quinton Gonzáles MD [facility] Nurse Pool; Josefina Mulligan One year with psa [facility] 06-18-2024 Note HNO ID: [id number] Author: Quinton GONZÁLES MD Service: ? Author Type: Physician Type: Progress Notes Filed: 06/18/2024 15:02 Note Text: AMBULATORY TELEPHONE VISIT Pablo Beckman has consented to this telephone encounter. Persons Present: patient Chief Complaint/Reason: Prostate cancer, s/p I-125 prostate seed implant on 10/10/13. HPI: Has had some blood per urine. Due to see urology for follow-up. No other issues. Data Reviewed: Most recent labs PSA (no units) Date Value 11/22/2013 1.60 PSA. (no units) Date Value 06/12/2024 <0.13 06/13/2023 <0.13 06/02/2022 0.52 06/10/2020 0.05 PSA. (no units) Date Value 06/10/2020 0.05 06/13/2018 <0.13 06/09/2016 0.19 12/15/2015 0.42 PSA. (no units) Date Value 06/13/2018 <0.13 06/05/2017 0.11 06/09/2016 0.19 12/15/2015 0.42 05/28/2015 0.26 12/01/2014 0.30 05/26/2014 0.37 11/22/2013 1.60 05/26/2014 0.37 11/22/2013 1.60 Assessment: Prostate cancer, s/p I-125 prostate seed implant on 10/10/13. Doing well. PSA remains undetectable. Recommend he see urology as scheduled for hematuria/kidney stones. Recommend recheck PSA in 1 year. Total Time Spent: 10minutes Quinton Gonzáles MD [facility] 06-18-2024 History of Present illness Narrative AMBULATORY TELEPHONE VISIT Pablo Beckman has consented to this telephone encounter. Persons Present: patient Chief Complaint/Reason: Prostate cancer, s/p I-125 prostate seed implant on 10/10/13. HPI: Has had some blood per urine. Due to see urology for follow-up. No other issues. Data Reviewed: Most recent labs PSA (no units) Date Value 11/22/2013 1.60 PSA. (no units) Date Value 06/12/2024 <0.13 06/13/2023 <0.13 06/02/2022 0.52 06/10/2020 0.05 PSA. (no units) Date Value 06/10/2020 0.05 06/13/2018 <0.13 06/09/2016 0.19 12/15/2015 0.42 PSA. (no units) Date Value 06/13/2018 <0.13 06/05/2017 0.11 06/09/2016 0.19 12/15/2015 0.42 05/28/2015 0.26 12/01/2014 0.30 05/26/2014 0.37 11/22/2013 1.60 05/26/2014 0.37 11/22/2013 1.60 Assessment: Prostate cancer, s/p I-125 prostate seed implant on 10/10/13. Doing well. PSA remains undetectable. Recommend he see urology as scheduled for hematuria/kidney stones. Recommend recheck PSA in 1 year. Total Time Spent: 10minutes Quinton Gonzáles MD documented in this encounter [facility] 06-10-2024 Hospital Discharge instructions Patient Education 06/10/2024 13:19:53 Hematuria, Adult Hematuria, Adult Hematuria is blood in the urine. Blood may be visible in the urine, or it may be identified with a test. This condition can be caused by infections of the bladder, urethra, kidney, or prostate. Other possible causes include: Kidney stones. Cancer of the urinary tract. Too much calcium in the urine. Conditions that are passed from parent to child (inherited conditions). Exercise that requires a lot of energy. Infections can usually be treated with medicine, and a kidney stone usually will pass through your urine. If neither of these is the cause of your hematuria, more tests may be needed to identify the cause of your symptoms. It is very important to tell your health care provider about any blood in your urine, even if it is painless or the blood stops without treatment. Blood in the urine, when it happens and then stops and then happens again, can be a symptom of a very serious condition, including cancer. There is no pain in the initial stages of many urinary cancers. Follow these instructions at home: Medicines Take vmbb-rwk-prhavja and prescription medicines only as told by your health care provider. If you were prescribed an antibiotic medicine, take it as told by your health care provider. Do not stop taking the antibiotic even if you start to feel better. Eating and drinking Drink enough fluid to keep your urine pale yellow. It is recommended that you drink 3 4 quarts (2.8 3.8 L) a day. If you have been diagnosed with an infection, drinking cranberry juice in addition to large amounts of water is recommended. Avoid caffeine, tea, and carbonated beverages. These tend to irritate the bladder. Avoid alcohol because it may irritate the prostate (in males). General instructions If you have been diagnosed with a kidney stone, follow your health care provider's instructions about straining your urine to catch the stone. Empty your bladder often. Avoid holding urine for long periods of time. If you are female: ?After a bowel movement, wipe from front to back and use each piece of toilet paper only once. ?Empty your bladder before and after sex. Pay attention to any changes in your symptoms. Tell your health care provider about any changes or any new symptoms. It is up to you to get the results of any tests. Ask your health care provider, or the department that is doing the test, when your results will be ready. Keep all follow-up visits. This is important. Contact a health care provider if: You develop back pain. You have a fever or chills. You have nausea or vomiting. Your symptoms do not improve after 3 days. Your symptoms get worse. Get help right away if: You develop severe vomiting and are unable to take medicine without vomiting. You develop severe pain in your back or abdomen even though you are taking medicine. You pass a large amount of blood in your urine. You pass blood clots in your urine. You feel very weak or like you might faint. You faint. Summary Hematuria is blood in the urine. It has many possible causes. It is very important that you tell your health care provider about any blood in your urine, even if it is painless or the blood stops without treatment. Take wtmv-uug-usgtboo and prescription medicines only as told by your health care provider. Drink enough fluid to keep your urine pale yellow. This information is not intended to replace advice given to you by your health care provider. Make sure you discuss any questions you have with your health care provider. Document Revised: 11/25/2020 Document Reviewed: 11/25/2020 [employer]ell Patient Education 2023 [employer] Follow Up Care 06/07/2024 09:57:37 With:[facility] Address: [address] 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 Blood may be visible in the urine, or it may be identified with a test. This condition can be caused by infections of the bladder, urethra, kidney, or prostate. Other possible causes include: ??? Kidney stones. ??? Cancer of the urinary tract. ??? Too much calcium in the urine. ??? Conditions that are passed from parent to child (inherited conditions). ??? Exercise that requires a lot of energy. Infections can usually be treated with medicine, and a kidney stone usually will pass through your urine. If neither of these is the cause of your hematuria, more tests may be needed to identify the cause of your symptoms. It is very important to tell your health care provider about any blood in your urine, even if it is painless or the blood stops without treatment. Blood in the urine, when it happens and then stops and then happens again, can be a symptom of a very serious condition, including cancer. There is no pain in the initial stages of many urinary cancers. Follow these instructions at home: Medicines ??? Take ragk-muf-eueagou and prescription medicines only as told by your health care provider. ??? If you were prescribed an antibiotic medicine, take it as told by your health care provider. Do not stop taking the antibiotic even if you start to feel better. Eating and drinking ??? Drink enough fluid to keep your urine pale yellow. It is recommended that you drink 3?4 quarts (2.8?3.8 L) a day. If you have been diagnosed with an infection, drinking cranberry juice in addition to large amounts of water is recommended. ??? Avoid caffeine, tea, and carbonated beverages. These tend to irritate the bladder. ??? Avoid alcohol because it may irritate the prostate (in males). General instructions ??? If you have been diagnosed with a kidney stone, follow your health care provider's instructions about straining your urine to catch the stone. ??? Empty your bladder often. Avoid holding urine for long periods of time. ??? If you are female: ? After a bowel movement, wipe from front to back and use each piece of toilet paper only once. ? Empty your bladder before and after sex. ??? Pay attention to any changes in your symptoms. Tell your health care provider about any changes or any new symptoms. ??? It is up to you to get the results of any tests. Ask your health care provider, or the department that is doing the test, when your results will be ready. ??? Keep all follow-up visits. This is important. Contact a health care provider if: ??? You develop back pain. ??? You have a fever or chills. ??? You have nausea or vomiting. ??? Your symptoms do not improve after 3 days. ??? Your symptoms get worse. Get help right away if: ??? You develop severe vomiting and are unable to take medicine without vomiting. ??? You develop severe pain in your back or abdomen even though you are taking medicine. ??? You pass a large amount of blood in your urine. ??? You pass blood clots in your urine. ??? You feel very weak or like you might faint. ??? You faint. Summary ??? Hematuria is blood in the urine. It has many possible causes. ??? It is very important that you tell your health care provider about any blood in your urine, even if it is painless or the blood stops without treatment. ??? Take rirn-zsj-otbiwhc and prescription medicines only as told by your health care provider. ??? Drink enough fluid to keep your urine pale yellow. This information is not intended to replace advice given to you by your health care provider. Make sure you discuss any questions you have with your health care provider. Document Revised: 11/25/2020 Document Reviewed: 11/25/2020 [employer]ell Patient Education ? 2023 [employer] [facility] 06-03-2024 Note Cardiology Clinic No te Chief Complaint: No chief complaint on file. HPI: Pablo Beckman is a 68 y.o. male who has a past medical history of Aneurysm, Atrial fibrillation (CMS/HCC), Coronary artery disease, Diastolic dysfunction, Hyperlipidemia, Hypertension, Left ventricular systolic dysfunction, and NSVT (nonsustained ventricular tachycardia) (CMS/HCC). that is referred to Cardiology clinic for evaluation of abnormal stress test. Patient here per Dr. Heard for abnormal stress test. Patient states it was ordered for ANDERSON. Says he gets very SOB with very minimal exertion. Denies chest pain. Says he's only taking Eliquis once daily because when he cut himself it looked like water . He said he made Dr. Heard aware of this last year at his wellness visit and he was okay with it. Patient had routine labs with lipid profile last month. ROS 10 point ROS is performed and is negative unless otherwise specified in HPI Past Medical History He has a past medical history of Aneurysm, Atrial fibrillation (CMS/HCC), Coronary artery disease, Diastolic dysfunction, Hyperlipidemia, Hypertension, Left ventricular systolic dysfunction, and NSVT (nonsustained ventricular tachycardia) (CMS/HCC). Surgical History He has a past surgical history that includes Hand surgery; Leg Surgery; Rotator cuff repair; Vasectomy; and Cardiac catheterization. Social History He reports that he has quit smoking. His smoking use included cigarettes. He has never used smokeless tobacco. He reports current alcohol use. He reports that he does not use drugs. Family History Family History Problem Relation Name Age of Onset Stroke Mother Medications Current Outpatient Medications on File Prior to Visit Medication Sig Dispense Refill apixaban (Eliquis) 5 mg tablet Take 1 tablet by mouth once daily as directed. ferrous sulfate 325 (65 Fe) MG tablet Take 1 tablet by mouth in the morning and at bedtime. furosemide (Lasix) 20 mg tablet TAKE 1 TABLET(20 MG) BY MOUTH IN THE MORNING 90 tablet 3 meclizine (Antivert) 25 mg tablet Take 25 mg by mouth if needed in the morning, at noon, and at bedtime. metoprolol tartrate 75 mg tablet Take by mouth in the morning and at bedtime. multivitamin with iron-minerals 9 mg iron/15 mL liquid Take by mouth in the morning. rosuvastatin (Crestor) 20 mg tablet TAKE 1 TABLET(20 MG) BY MOUTH AT BEDTIME 90 tablet 3 pantoprazole (ProtoNix) 40 mg EC tablet Take 40 mg by mouth in the evening. No current facility-administered medications on file prior to visit. Allergies Patient has no known allergies. Physical Exam VITAL SIGNS: BP 130/76 (BP Location: Left arm, Patient Position: Sitting) Pulse 79 Ht 1.727 m (5' 8 ) Wt 100 kg (221 lb) SpO2 96% BMI 33.60 kg/m??? Constitutional: Well developed, Well nourished, No acute distress, Non-toxic appearance. HENT: Normocephalic, Atraumatic, Bilateral external ears have normal appearance, Nose appears normal, nares are patent. Eyes: [...] No tenderness, No cyanosis, No clubbing. Musculoskeletal: Grossly normal strength in extremities Neurologic: Alert & oriented x 3, no gross focal neurological deficits Psychiatric: Affect normal, Judgment normal, Mood normal. EKG results: Encounter Date: 06/19/24 ECG 12 lead Result Value Ventricular Rate 62 Atrial Rate 62 AR Interval 110 QRS DURATION 90 QT Interval 446 QTC CALCULATION(BAZETT) 452 P Townsend 4 R-Townsend 4 T Wave Townsend -11 Impression Sinus rhythm Since previous tracing with occasional Premature ventricular complexes Early transition, increased R/S ratio in V1, consider posterior infarct Abnormal ECG When compared with ECG of 19-JUN-2024 09:03, (unconfirmed) Premature ventricular complexes are now Present Confirmed by MD DANNY, EHAB ([id number]) on 06/19/2024 4:07:28 PM Echo results: No echocardiogram results found for the past 12 months Radiology: Cardiac catheterization Cardiac Cath Report 06/19/2024 Performing Physicians: -Alexi Weeks MD Assistants: Dr Kimmie Narvaez, Dr Lamin Wan Procedures Performed: -Bilateral selective coronary angiography -Ultrasound guided vascular access -Conscious sedation -PCI of 75% stenosis in OM1. This was successfully reduced to 0% stenosis following balloon angioplasty and PAULO placement Final Impressions: -There is 75% stenosis in proximal portion of t (more content not included)... [facility] 06-21-2023 Miscellaneous Notes Melvina called to reschedule [...] Latisha Rojas RN documented in this encounter [facility] 05-23-2023 Miscellaneous Notes PT called in to schedule follow up for this year. He will also need PSA. Please sign pended order and we will fax to [facility]. Josefina Anderson RN documented in this encounter [facility] 06-23-2022 History of Present illness Narrative [...] Quinton Gonzáles MD documented in this encounter [facility] 06-23-2022 Miscellaneous Notes Appointment has been changed in Epic. Kwaku Rasmussen Per Dr Gonzáles, ok to switch to phone visit. Patient was notified. PSS- please change in epic. Josefina Anderson RN Pablo called wondering if his follow up appointment can be switched to a phone visit tomorrow. Please advise. Latisha Rojas LPN documented in this encounter [facility] 03-18-2022 Note OPERATIVE NOTE OPERATION DATE: 03/18/2022 [...] to recovery room in good condition. CC: Guillermo Heard M.D. [facility] Evaluation + Plan note No data available for this section General Surgery [facility] Evaluation note Diagnosis Malignant neoplasm of prostate (HCC)- Primary Malignant neoplasm of prostate documented in this encounter [facility] note* Diagnosis Malignant neoplasm of prostate (HCC)- Primary Malignant neoplasm of prostate documented in this encounter [facility] note* Diagnosis Malignant neoplasm of prostate (HCC)- Primary Malignant neoplasm of prostate documented in this encounter [facility] note* Diagnosis Personal history of prostate cancer- Primary Personal history of malignant neoplasm of prostate documented in this encounter [facility] note* Diagnosis Personal history of prostate cancer- Primary Personal history of malignant neoplasm of prostate documented in this encounter [facility] Discharge instructions No data available for this section General Surgery [facility] Progress note No data available for this section General Surgery [facility] Summary Purpose Family History No Family History Records FoundNo Family History Records Found No data available for this section No data available for this section No Family History Records FoundNo Family History [...] and content) DATE CREATED AUTHOR 04/15/2021 [facility] DATE CREATED AUTHOR AUTHOR'S ORGANIZ ATION 08/08/2022 [facility] DATE CREATED AUTHOR AUTHOR'S ORGANIZ ATION 06/16/2024 [facility] DATE CREATED AUTHOR AUTHOR'S ORGANIZ ATION 06/26/2024 [facility] DATE CREATED AUTHOR AUTHOR'S ORGANIZ ATION 09/11/2024 [facility] Patient Care team informatio n (unrecognized section and content) Carpenter Assembler Relationship Specialty Start Date End Date Guillermo Heard MD PCP - General 02/24/09 Carpenter Assembler Relationship Specialty Start Date End Date Guillermo Heard MD PCP - General 02/24/09 Carpenter Assembler Relationship Specialty Start Date End Date Guillermo Heard MD PCP - General 02/24/09 Carpenter Assembler Relationship Specialty Start Date End Date Guillermo Heard MD PCP - General 02/24/09 Source Comments (unrecognize d section and content) In the event this informatio n is protected by the Federal Confidentiality of Alcohol and Drug Abuse Patient Records regulations: The Federal rules restrict any use of the information to criminally investigate or prosecute any alcohol or drug abuse patient.[facility] the event this information is protected by the Federal Confidentiality of Alcohol and Drug Abuse Patient Records regulations: The Federal rules restrict any use of the information to criminally investigate or prosecute any alcohol or drug abuse patient.[facility] the event this information is protected by the Federal Confidentiality of Alcohol and Drug Abuse Patient Records regulations: The Federal rules restrict any use of the information to criminally investigate or prosecute any alcohol or drug abuse patient.[facility] the event this information is protected by the Federal Confidentiality of Alcohol and Drug Abuse Patient Records regulations: The Federal rules restrict any use of the information to criminally investigate or prosecute any alcohol or drug abuse patient.[facility] CampusIn the event this information is protected by the Federal Confidentiality of Alcohol and Drug Abuse Patient Records regulations: The Federal rules restrict any use of the information to criminally investigate or prosecute any alcohol or drug abuse patient.[facility] CampusIn the event this information is protected by the Federal Confidentiality of Alcohol and Drug Abuse Patient Records regulations: The Federal rules restrict any use of the information to criminally investigate or prosecute any alcohol or drug abuse patient.[facility] [facility] Reason for Visit (unrecogniz ed section and content) Reason Comments Patient Question Reason Comments Established Patient Specialty Diagnoses / Procedures Referred By Contac t Referred To Contact Radiation Oncology / RADIATION ONCOLOGY Diagnoses Follow-up examination 1 yr follow up, psa at [facility] Procedures OFFICE/OUTPATIENT ESTABLISHED MOD MDM 30-39 MIN EST PATIENT Quinton Gonzáles MD [address] [place] [address] [place] [address] Quinton Gonzáles MD [address] [place] [address] [place] [address] Referral ID Status Reason Start Date Expiration Date Visits Re quested Visits Authorized [id number] Open 06/23/2022 09/21/2022 1 0 Reason Comments [...] BE BASED ON THE PRIMARY CLINICAL RECORDS. [facility]. provides no warranty or guarantee of the accuracy or completeness of information in this document.
== END 2024-12-23 09:15 | disposition home or self-care (01) ==
PROVIDERS: PCP Family Medicine; Visit Provider Family Medicine
DX: M48.061 Spinal stenosis, lumbar region without neurogenic claudication (principal)
CPT/HCPCS: 72148

== ENCOUNTER 2025-01-22 10:10 | Outpatient (OUT) | payer MEDICARE, SELFPAY ==
--- OUTSIDE RECORDS SUMMARY | 2025-01-22 09:40 | XMS_ITS | Encounter Summary ---
Author Organization [facility] Address [address] [place] [address] Care Team Providers Care Music Producer Name Role Phone Guillermo Heard MD Primary Care Provider [phone] Reason for Visit * Reason Comments Follow-up Patient is here toda y for a 6 month follow up appointment. Patient denies chest pain, leg swelling, racing heart/palpitations.Complains of SOB/ANDERSON, bleeding/bruising/discoloration, fatigue if he over works himself. Aneurysm of ascending aorta Hypertension Left ventricular systolic dysfunction Atrial Fibrillation NSVT Coronary Artery Disease Hyperlipidemia Encounter Details Date Type Department Care Team (Late st Contact Info) Description 01/22/2025 9:40 AM EDT Office Visit [facility] Heart at [facility] [address] [place] [address] Anjel Corona MD [address] [place] [address] Aneurysm of ascending aorta without rupture (Primary Dx); Paroxysmal atrial fibrillation (CMS/HCC) Social History Tobacco Use Types Packs/Day Years Used Date Smoking Tobacco: Former Cigarettes Smokeless Tobacco: Never Alcohol Use Standard Drinks/Week Comments Yes 0 (1 standard drink = 0.6 oz pur e alcohol) OCCASIONAL [place] Safety & Environment Answer Date Rec orded Fear of Current or Ex-Partner Not on file Emotionally Abused Not on file 06/01/2023 Physically Abused Not on file 06/01/2023 Sexually Abused Not on file 06/01/2023 Physically or Sexually Abused Not on file Sex and Gender Information Value Date Recorded Sex Assigned at Male 01/17/2025 11:07 AM EDT Legal Sex Male 12:40 AM EDT Gender Identity Male 01/17/2025 11:07 AM EDT Sexual Orientation Heterosexual or Straight 01/08 11:07 AM EDT documented as of this encounter Last Filed Vital Signs Vital Sign Reading Time Taken Comments Blood Pressure 122/84 01/22/2025 9:38 AM EDT Pulse 61 01/22/2025 9:38 AM EDT Temperature - - Respiratory Rate - - Oxygen Saturation - - Inhaled Oxygen Concentration - - Weight 92.5 kg (204 lb) 01/22/2025 9:38 AM EDT Height 172.7 cm (5' 8 ) 01/22/2025 9:38 AM EDT Body Mass Index 31.02 01/22/2025 9:38 AM EDT documented in this encounter Functional Status * BP Answer Date of Assessment Author 122/84 01/22/2025 9:38 AM EDT Michelle Ronquillo MA * Pulse Answer Date of Assessment Author 61 01/22/2025 9:38 AM EDT Michelle Ronquillo MA * Patient Position Answer Date of Assessment Author Sitting 01/22/2025 9:38 AM EDT Michelle Ronquillo MA * BP Answer Date of Assessment Author 122/84 01/22/2025 9:38 AM EDT Michelle Ronquillo MA * Pulse Answer Date of Assessment Author 61 01/22/2025 9:38 AM EDT Michelle Ronquillo MA * BP Location Answer Date of Assessment Author Right arm 01/22/2025 9:38 AM EDT Michelle Ronquillo MA * Patient Position Answer Date of Assessment Author Sitting 01/22/2025 9:38 AM EDT Michelle Ronquillo MA documented as of this encounter Progress [...] fibrillation documented in this encounter Care Teams Music Producer Relationship Specialty Start Date End Date Guillermo Heard MD [address] [place] [address] PCP - General 12/11/21 documented as of this encounter
--- OUTSIDE RECORDS SUMMARY | 2025-01-22 10:13 | XMS_ITS | Encounter Summary ---
Author Organization [facility] Address [address] [place] [address] Care Team Providers Care Movie Editor Name Role Phone Guillermo Heard MD Primary Care Provider [phone] Reason for Referral * Imaging (Routine) - Pending Review Specialty Diagnoses / Procedures Referred By Rosalind t Referred To Contact Diagnoses Aneurysm of ascending aorta without rupture Procedures CTA Chest W IV Contrast Anjel Corona MD [address] [place] [address] Phone: tel: fax: Referral ID Status Reason Start Date Expiration Date V isits Requested Visits Authorized [id number] Pending Review 01/22/2025 01/22/2026 1 1 Encounter Details Date Type Department Care Team (Late st Contact Info) Description 01/22/2025 Orders Only [facility] Heart at [facility] [address] [place] [address] Maggie Viera MA Aneurysm of ascending aorta without rupture (Primary Dx) Social History Tobacco Use Types Packs/Day Years [...] AM EDT documented as of this encounter Functional Status * BP Answer [...] Ronquillo MA documented as of this encounter Plan of Treatment Scheduled Orders Name Type Priority Associated Diagnoses Orde r Schedule CTA Chest W IV Contrast Imaging Routine Aneurysm of ascending aorta without rupture Expected: 01/22/2025, Expires: 01/22/2026 documented as of this encounter Visit Diagnoses Diagnosis Aneurysm of ascending aorta without rupture- Primary documented in this encounter Care Teams Movie Editor Relationship Specialty Start Date End Date Guillermo Heard MD [address] [facility] [place] [address] PCP - General 12/11/21 documented as of this encounter
--- OUTSIDE RECORDS SUMMARY | 2025-01-22 10:13 | XMS_ITS | Encounter Summary ---
Author Organization [facility] Address [address] [address] Care Team Providers Care Personal Fitness Manager Name Role Phone Guillermo Heard MD Primary Care Provider [phone] Reason for Visit * Reason Comments Med Refill Encounter Details Date Type Department Care Team (Late st Contact Info) Description 08/18/2022 Refill [facility] [address] [place] [address] Magdalena Stark MD [address] [facility] [address] [place] [address] Paroxysmal atrial fibrillation (CMS/HCC) Social History Tobacco Use Types Packs/Day Years Used Date Smoking Tobacco: Former Cigarettes Smokeless Tobacco: Never Alcohol Use Standard Drinks/Week Comments Yes 0 (1 standard drink = 0.6 oz pur e alcohol) OCCASIONAL Sex and Gender Information Value Date Recorded Sex Assigned at Male 01/17/2025 11:07 AM EDT Legal Sex Male 12:40 AM EDT Gender Identity Male 01/17/2025 11:07 AM EDT Sexual Orientation Heterosexual or Straight 01/08 11:07 AM EDT COVID-19 Exposure Response Date Recorded In the last 10 days, have yo u been in contact with someone who was confirmed or suspected to have Coronavirus/COVID-19? No / Unsure 08/09/2022 9:01 AM EDT documented as of this encounter Plan of Treatment Not on file documented as of this encounter Visit Diagnoses Diagnosis Paroxysmal atrial fibrillation (CMS/HCC) Atrial fibrillation documented in this encounter Care Teams Personal Fitness Manager Relationship Specialty Start Date End Date Guillermo Heard MD [address] [place], [place] [address] [address] PCP - General 12/11/21 documented as of this encounter
--- OUTSIDE RECORDS SUMMARY | 2025-01-22 10:13 | XMS_ITS | Encounter Summary ---
Author Organization [facility] Address [address] [place] [address] Care Team Providers Care Supervisor Coke Handling Name Role Phone Guillermo Heard MD Primary Care Provider [phone] Encounter Details Date Type Department Care Team (Late st Contact Info) Description 01/22/2025 Orders Only [facility] Heart at [facility] [address] [place] [address] Maggie Viera MA Paroxysmal atrial fibrillation (CMS/HCC) (Primary Dx) Social History Tobacco Use Types [...] of Assessment Author Sitting 01/22/2025 9:38 AM Michelle Barcenas MA * BP Answer Date of Assessment Author 122/84 01/22/2025 9:38 AM Michelle Barcenas MA * Pulse Answer Date of Assessment Author 61 01/22/2025 9:38 AM Michelle Barcenas MA * BP Location Answer Date of Assessment Author Right arm 01/22/2025 9:38 AM Michelle Barcenas MA * Patient Position Answer Date of Assessment Author Sitting 01/22/2025 9:38 AM Michelle Barcenas MA documented as of this encounter Plan of Treatment Scheduled Orders Name Type Priority Associated Diagnoses Orde r Schedule Basic metabolic panel Lab Routine Paroxysmal atrial fibrillation (CMS/HCC) Expected: 01/22/2025 (Approximate), Expires: 01/22/2026 documented as of this encounter Visit Diagnoses Diagnosis Paroxysmal atrial fibrillation (CMS/HCC)- Primary Atrial fibrillation documented in this encounter Care Teams Supervisor Coke Handling Relationship Specialty Start Date End Date Guillermo Heard MD [address] [facility] [place] [place] [address] PCP - General 12/11/21 documented as of this encounter
--- OUTSIDE RECORDS SUMMARY | 2025-01-22 10:13 | XMS_ITS | Encounter Summary ---
Author Organization [facility] Address [address] [place] [address] Care Team Providers Care Resident Services Supervisor Name Role Phone Guillermo Heard MD Primary Care Provider [phone] Reason for Visit * Reason Comments Med Refill Encounter Details Date Type Department Care Team (Late st Contact Info) Description 05/20/2022 Refill [facility] [address] [place] [address] Magdalena Stark MD [address] [facility] [address] [facility] [place] [address] Paroxysmal atrial fibrillation (CMS/HCC) Social History Tobacco [...] suspected to have Coronavirus/COVID-19? No / Unsure 05/17/2022 8:53 AM EST documented as of this encounter Miscellaneous Notes * Telephone Encounter - Zulma Gleason - 05/20/2022 3:49 PM EST Approving, but needs appt for additional refills. documented in this encounter Plan of Treatment Not on file documented as of this encounter Visit Diagnoses Diagnosis Paroxysmal atrial fibrillation (CMS/HCC) Atrial fibrillation documented in this encounter Care Teams Resident Services Supervisor Relationship Specialty Start Date End Date [facility]illermo Heard MD [address] [facility] [place] [id number] PCP - General 12/11/21 documented as of this encounter
--- OUTSIDE RECORDS SUMMARY | 2025-01-22 10:13 | XMS_ITS | Clinical Summary ---
Author Organization [facility] Address [address] [place] [address] Care Team Providers Care Element Burner Name Role Phone Guillermo Heard MD Primary Care Provider [phone] Allergies No known active allergies Medications apixaban (Eliquis) 5 mg tablet Take 1 tablet by mouth once daily as directed. Active ferrous sulfate 325 (65 Fe) MG tablet Take 1 tablet by mouth in the morning and at bedtime. Active metoprolol tartrate 75 mg tablet Take by mouth in the morning and at bedtime. Active furosemide (Lasix) 20 mg tabletIndications: Paroxysmal atrial fibrillation (CMS/HCC) TAKE 1 TABLET(20 MG) BY MOUTH IN THE MORNING 90 tablet 3 07/21/19 24 Active Additional Information Patient not taking.Reported on 01/22/2025 pantoprazole (ProtoNix) 40 mg EC tablet Take 40 mg by mouth in the evening. 06/13/19 24 Active multivitamin with iron-minerals 9 mg iron/15 mL liquid Take by mouth in the morning. Active meclizine (Antivert) 25 mg tablet Take 25 mg by mouth if needed in the morning, at noon, and at bedtime. 06/01/19 25 Active aspirin 81 mg chewable tabletIndications: Abnormal stress test,Angina pectoris, unstable (CMS/HCC) Chew 1 tablet (81 mg) in the morning. 90 tablet 3 06/20/19 25 026 Active Additional Information Patient not taking.Reported on 01/22/2025 clopidogrel (Plavix) 75 mg tabletIndications: Abnormal stress test,Angina pectoris, unstable (CMS/HCC) Take 1 tablet (75 mg) by mouth in the morning. 90 tablet 3 06/20/19 25 026 Active Additional Information Patient not taking.Reported on 01/22/2025 rosuvastatin (Crestor) 20 mg tabletIndications: Hyperlipidemia, unspecified hyperlipidemia type TAKE 1 TABLET(20 MG) BY MOUTH AT BEDTIME 90 tablet 3 07/23/19 25 Active furosemide (Lasix) 20 mg tabletIndications: Edema, unspecified type Take 1 tablet (20 mg) by mouth two times daily. 180 tablet 3 08/16/19 25 026 Active Active Problems Problem Noted Date Diagnosed Date Acquired spondylolisthesis 07/18/2024 Chest pain 07/18/2024 Diverticular disease of colon 07/18/2024 Hematuria 07/18/2024 Lumbar radicular pain 07/18/2024 Malignant tumor of prostate 07/18/2024 Osteoarthritis of knee 07/18/2024 Other specified disorders of kidney and ureter 0 07/18/2024 Kidney stones 07/18/2024 Anemia 06/03/2024 Bile reflux gastritis 06/03/2024 BMI 28.0-28.9,adult 06/03/2024 BPH (benign prostatic hyperplasia) 06/03/2024 Cataract 06/03/2024 Change in bowel habits 06/03/2024 Diverticulosis 06/03/2024 Dyspepsia 06/03/2024 Gout 06/03/2024 Helicobacter pylori ab+ 06/03/2024 Helicobacter pylori gastritis 06/03/2024 History of retinal detachment 06/03/2024 Iron deficiency anemia 06/03/2024 USP current use of anticoagulant Macular puckering 06/03/2024 Melena 06/03/2024 Occult blood positive stool 06/03/2024 Paresthesia 06/03/2024 Rectal hemorrhage 06/03/2024 Sleep apnea 06/03/2024 Smoker 06/03/2024 Umbilical hernia 06/03/2024 Unintentional weight loss 06/03/2024 Abnormal stress test 06/03/2024 ANDERSON (dyspnea on exertion) 06/03/2024 Mixed hyperlipidemia 08/08/2023 Aneurysm of ascending aorta 03/17/2021 Diastolic dysfunction 03/17/2021 Hypertensive disorder 03/17/2021 Left ventricular systolic dysfunction 03/17/2021 Paroxysmal atrial fibrillation 02/26/2021 Radiotherapy follow-up 06/10/2014 Personal history of prostate cancer 10/31/2013 NSVT (nonsustained ventricular tachycardia) Coronary artery disease Encounters Date Type Department Care Team Description 01/22/2025 9:40 AM EDT Office Visit [place] [address] [place] [address] Anjel Corona MD Aneurysm of ascending aorta without rupture (Primary Dx); Paroxysmal atrial fibrillation (CMS/HCC) 01/22/2025 Orders Only [facility] [address] [place] [address] Maggie Viera MA Aneurysm of ascending aorta without rupture (Primary Dx) 01/22/2025 Orders Only [place] [address] [place] [address] Maggie Viera MA Paroxysmal atrial fibrillation (CMS/HCC) (Primary Dx) from Last 3 Months Family History Medical History Relation Name Comments Parkinsonism Father Stroke Mother Relation Name Status Comments Father Mother Sister Alive Social History Tobacco Use Types Packs/Day Years Used Date Smoking Tobacco: Former Cigarettes Smokeless Tobacco: Never Tobacco Cessation:Counseling Given: Not Answered Alcohol Use Standard Drinks/Week Comments Yes 0 [...] Heterosexual or Straight 01/08 11:07 AM EDT Last Filed Vital Signs Vital Sign Reading Time Taken Comments Blood Pressure 122/84 01/22/2025 9:38 AM EDT Pulse 61 01/22/2025 9:38 AM EDT Temperature - - Respiratory Rate 20 06/19/2024 3:45 PM EDT Oxygen Saturation 97% 07/18/2024 10:28 AM EDT Inhaled Oxygen Concentration - - Weight 92.5 kg (204 lb) 01/22/2025 9:38 AM EDT Height 172.7 cm (5' 8 ) 01/22/2025 9:38 AM EDT Body Mass Index 31.02 01/22/2025 9:38 AM EDT Plan of Treatment Health Maintenance Due Date Last Done Comments CT Colonography 1956 FIT-DNA 1956 FIT 1956 FOBT 1955 Medicare Annual Wellness (AWV) 1955 Sigmoidoscopy 1956 Depression Screening 1968 Adult Tetanus 1978 Zoster Vaccines (1 of 2) 2006 Fall Risk Screening 2021 Pneumococcal Vaccine: 50+ Years (2 of 2 - PPSV23, PCV20, or PCV21) 03/15/2022 01/18/2022 COVID-19 Vaccine (3 - 2024-2 6 season) 2024 07/30/2020, 07/09/2020 Influenza Vaccine (#1) 2024 Colonoscopy 03/18/2032 03/18/2022, 10/17/2018, 09/11/2009 Colorectal Cancer Screening 03/18/2032 HIB Vaccines Aged Out No longer eligi ble based on patient's age to complete this topic HPV Vaccines Aged Out No longer eligi ble based on patient's age to complete this topic IPV Vaccines Aged Out No longer eligi ble based on patient's age to complete this topic Meningococcal B Vaccine Aged Out No l onger eligible based on patient's age to complete this topic Meningococcal Vaccine Aged Out No barry jeevan eligible based on patient's age to complete this topic Rotavirus Vaccines Aged Out No longer eligible based on patient's age to complete this topic Medical Devices Implanted Type Area Community Health Promoter Device Identifier Shelf Expiration Date Model / Serial / Lot Stent,Synergy Mr 3.50 X 20 - [id number] Implanted:Qty : 1 on 06/19/2024 by Lynsey Weeks MD at [facility] Drug Eluting Stent Left: Heart [employer] [id number] 09/24/2025 [id number] / / [id number] Insurance [employer] MEDICARE Care Teams Element Burner Relationship Specialty Start Date End Date Guillermo Heard MD [address] [facility] [place] [address] PCP - General 12/11/21
--- OUTSIDE RECORDS SUMMARY | 2025-01-22 10:14 | XMS_ITS | Clinical Summary ---
Author Organization [facility] Address [address] [place] [id number] Care Team Providers Care Air Export Logistics Manager Name Role Phone Guillermo Heard MD Primary Care Provider [phone] Allergies No known active allergies Medications Multivitamin capsule Take 1 capsule by mouth once daily. Active Active Problems Problem Noted Date Diagnosed Date Radiotherapy follow-up 06/10/2014 Personal history of prostate cancer 10/31/2013 Family History Medical History Relation Comments Breast Cancer Sister Relation Status Comments Sister Social History Tobacco Use Types Packs/Day Years Used Date Smoking Tobacco: Former Cigarettes 1.5 10 0 06/11/1979 - 06/10/1989 Smokeless Tobacco: Never Alcohol Use Standard Drinks/Week Comments Not Asked 0 (1 standard drink = 0.6 oz pur e alcohol) PHQ-2 Answer Date Recorded PHQ-2 score 0 06/24/2020 Area Deprivation Index Answer Date Oswaldo rded National Score (1-100), lower number is lower ri sk 60 06/18/2024 State Score (1-10), lower number is lower risk 4 06/18/2024 Data from: https://www.neighborhoodatlas.medicine.[facility].edu/. Last address used for calculation [address] 06/18/2024 Sex and Gender Information Value Date Recorded Sex Assigned at Not on file Legal Sex Male 8:26 AM EST Gender Identity Not on file Sexual Orientation Not on file Last Filed Vital Signs Vital Sign Reading Time Taken Comments Blood Pressure 147/72 06/24/2020 10:05 AM EDT Pulse 57 06/24/2020 10:05 AM EDT Temperature 36.8 C (98.2 F) 06/24/2020 10:05 AM EDT Respiratory Rate 16 06/24/2020 10:05 AM EDT Oxygen Saturation 97% 06/24/2020 10:05 AM EDT Inhaled Oxygen Concentration - - Weight 94.8 kg (209 lb) 06/24/2020 10:05 AM EDT Height - - Body Mass Index - - Plan of Treatment Upcoming Encounters Date Type Department Care Team (Latest Contact Info) Description 06/18/2025 4:30 PM EDT [facility] Radiation Oncology [address] [place] [address] Quinton Gonzáles MD [address] [place] [address] 1 year follow up - PSA at [facility] Due Date Last Done Comments Abdominal Aortic Aneurysm Screening 1956 Anxiety Screening 1974 Depression Screening 1974 Hepatitis C Screening 1974 DTaP,Tdap,Td Vaccine (1 - Tdap) 10/21/1975 Lipid Screening 10/21/1991 CT Colonography 2001 Cologuard (FIT-DNA) 2001 Colonoscopy 2001 Colorectal Cancer Screening 2001 Diabetes Screening 2001 Fecal Occult Blood 2001 Sigmoidoscopy 2001 Shingrix Vaccine (1 of 2) 2006 Pneumococcal Vaccine: 50+ (2 of 2 - PCV20 or PCV21) 01/18/2023 01/18/2022 Advance Directive Discussion 04/10/2024 Medicare Advantage Annual We llness Visit 04/10/2024 Covid-19 Vaccine (3 - 2024-2 6 season) 2024 07/30/2020, 07/09/2020 Influenza Vaccine (#1) 2024 Prostate Cancer Screening Discussion 06/12/2029 06/12/2024, 06/13/2023, 06/02/2022, Additional history exists RSV Vaccine (1 - 1-dose 75+ series) 10/21/2031 Procedures Procedure Name Priority Date/Time Associated Diagnosis Comments PSA (OUTSIDE) Routine 06/12/2024 from Last 3 Months or Most Recently Relevant to Health Maintenance Results * PSA (OUTSIDE) (06/12/2024) PSA. <0.13 BLOOD SPECIMEN / Unknown 06/12/2024 [facility] Provider LABORATORY Final Result from Last 3 Months or Most Recently Relevant to Health Maintenance Insurance MMO [employer] HMO [employer] Care Teams Air Export Logistics Manager Relationship Specialty Start Date End Date Guillermo Heard MD PCP - General 02/24/09
--- OUTSIDE RECORDS SUMMARY | 2025-01-22 10:14 | XMS_ITS ---
Author Organization [facility] Address [address] [place] [address] Care Team Providers Care Quality Assurance Test Program Manager Name Role Phone Guillermo Heard MD Primary Care Provider [phone] Active Problems Problem Noted Date Diagnosed Date [...] NSVT (nonsustained ventricular tachycardia) Coronary artery disease Current Treatment and Therapy Plans No current plan information found. Past Treatment and Therapy Plans No past plan information found. Lifetime Dose Tracking * Chemical Lifetime Dose Automatic Entry Manual Entr y Fluoro Time 10.2 minutes 0 minutes 10.2 minutes Air Kerma 1,363 mGy 0 mGy 1,363 mGy
--- OUTSIDE RECORDS SUMMARY | 2025-01-22 10:20 | XMS_ITS | CCD ---
Author Organization [facility] CliniSymt Care Team Providers Care Field Specialist Name Role Phone MAMTA STEPHENSON Attending Unavailable SELF, REFERRED Primary Care Unavailable SELF, REFERRED Referring Unavailable MAMTA STEPHENSON Admitting Unavailable Guillermo Heard Primary Care Physician Guillermo Heard MD Primary Care Provider [phone] CURRY Admitting Unavailable [...] Attending Guillermo Virk MD Primary Care Provider [phone] Quinton GONZÁLES Attending Unavailable GUILLERMO HEARD Referring Unavailable GUILLERMO HERAD Primary Care Unavailable MAMTA STEPHENSON Attending Unavailable ALGHOTHALEXI MCGOWAN Attending Unavailable ALGHOTHANI, MOHAMAD Admitting Unavailable ALGHOTHANI MOHAMAD Attending Unavailable ALGHOTHANI, MOHAMAD Referring Unavailable ALGHOTHANI, MOHAMAD Referring Unavailable Allergies Allergy Classification Reported Allergen(s) Allergy Type Date of Onset Reaction(s) Facility (1 source) No Known Medication Allergies; Translations: [No Known Medication Allergies] Propensity to adverse reactions (disorder) [facility] Repository Medications Current Medications Medication Drug Class(es) [...] cysto., # 2 tab(s), Refills(s) 0, Pharmacy: [facility] #[id number], 173, cm, 06/10/24 12:48:00 EST, Height/Length Dosing, [...] Comment on above: Take 1 capsule by [facility] once daily. 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 Thanks [facility] 36on 08-15-2024 36 Okay, higher than go al of <130/90. We will see how his BP responds to increase in lasix. Follow-up BP check in 2 weeks please and thank you! [facility] 36on 08-14-2024 36 We can do that instjayda bourgeois, follow-up BMP in 1-2 weeks after the increase. Thanks [facility] Follow-Upon 07-18-2024 Follow-Up [id number] Hanna Beckman 1955 M Date Provider Department Center 07/18/2024 MAMTA EGAN CARD [facility] Family History Problem Relation Age of Onset Stroke Mother Parkinsonism Father Family Status - Relation Status Age at Mother Father Sister Alive Level of Service:95568 [place] OFFICE/OUTPATIENT ESTABLISHED MOD MDM 30 MIN Reason for Visit and Comments: Coronary Artery Disease [187] Hypertension [357251] Hyperlipidemia [182] [facility] Telephoneon 07-18-2024 Telephone [id number] Hanna Beckman 1955 M Date Provider Department Center 07/18/2024 HEBER SIDDIQUI CARD [facility] Family History Problem Relation Age of Onset Stroke Mother Parkinsonism Father Family Status - Relation Status Age at Mother Father Sister Alive [facility] CNPMel 06-20-2024 CNPN Telephone (RADTSA) PABLO BECKMAN ([id number]) 1955 M Date Time Provider Department 06/20/24 Quinton GONZÁLES During your visit today, we recorded the following information about you: Josefina Anderson, RN 06/20/2024 9:58 AM Signed Message Received: 2 days ago Quinton Gonzáles MD P Radt [facility] Nurse [place]; Josefina Mulligan One year with Bel Thapa 06/20/2024 11:07 AM Signed Appointment scheduled in 1 year, will need to fax PSA order to [facility] when available. Josefina Anderson RN 06/20/2024 11:16 AM Signed GAYLE- please sign order. TOOTIE Nance Trisha 06/24/2024 12:59 PM Signed Pablo is scheduled for his 1 year follow up on 06/18/24 at 4:30. His lab order has been faxed to [facility]. Kitty Valle PSS Allergies As of Date: 06/20/2024 (No Known Allergies) Date Reviewed: 06/24/2020 Reviewed by: Felecia Benites (Christopher)CHRISTOPHER - Fully Assessed Reason for Visit: Future Appointment [256] Primary Visit Diagnosis:Personal history of prostate cancer [Z85.46] Order(s):PROSTATE-SPECIFIC ANTIGEN DIAGNOSTIC [SQPSA] Order #: [id number] FUTURE Prescriptions as of 06/24/2024 - Multivitamin capsule Take 1 capsule by mouth once daily. Problem List As Of Date 06/20/2024 Noted Resolved Personal history of prostate cancer [Z85.46] 10/31/2013 Radiotherapy follow-up [Z09] 06/10/2014 Encounter Status:Closed by JOSEFINA ANDERSON on [facility]/24/24 [facility]ES ------- Attestation signed by Alexi Weeks MD at 06/30/2024 8:33 PM Agree with fellow's note as documented. Aelxi Weeks MD [place] [facility] Patient: Pablo Beckman Procedure Information Date/Time: 06/19/24 1030 Procedure: Coronary angiography (Bilateral) Location: [facility] FLEXIBLE BABYSITTER 3 / [facility] (Cath) Providers: Alexi Weeks [...] to blood products. Additional Equipment Requests Normal [facility] HPon 06-19-2024 HP ------- Attestation signed by [...] Assessment/Plan Abnormal stress test Paroxysmal atrial fibrillation RVA-otq-mjangmembmi [moderate coronary artery disease of OM1 and distal LAD] on cath 2020 Hypertension Aortic aneurysm-stable at 4.2 cm CTA chest -All prior tests have been reviewed. -Patient is scheduled for a coronary angiogram today. -Further recommendations post procedure. Normal [facility] NURSNOTEon 06-19-2024 NURSNOTE RN educated pt on [...] of unit with all of belongings. Normal [facility] Urine Cytology ([facility])on 0 06-13-2024 Microscopic exam Cytology (U) [Interp] Diagnosis Info Invalid Interpretation Code [facility] Comment on above: Result Comment: A:Ur ine,Urine:Voided Interpretation - Adequate cellularity for evaluation. CPT 98664 MicroScopic Description - Adequacy - Gross Description Site ID:A color Bright Yellow fixative Alcohol Specimen designated Urine received in alcohol preservative and labeled with the patient???s name, consists of 110ml clear bright yellow fluid. Electronically signed by : on: 06/13/2024 14:03:40 Performed By: #### 1 [id number] #### [facility] Laboratory [address] [place] [address] PSA (OUTSIDE)on 06-12-2024 [facility] Urine Cytology ([facility])on 0 06-10-2024 UC Method of Extraction Voided Normal [facility] Comment on above: Performed By: #### 1 [id number] #### [facility] [address] [place] [address] UC Number of Jars 1 Invalid Interpretation Code [facility] Comment on above: Performed By: #### 1 [id number] #### [facility] [address] [place] [address] UC Specimen Urine Normal [facility] Comment on above: Performed By: #### 1 [id number] #### [facility] [address] [place] [address] Type of Service Technical Only Normal [facility] Comment on above: Performed By: #### 1 [id number] #### [facility] [address] [place] [address] Urology Office/Clinic Noteon 06-10-2024 Urology Office/Clinic Note [...] cysto., # 2 tab(s), Refills(s) 0, Pharmacy: [facility] #[id number], 173, cm, 06/10/24 12:48:00 EST, Height/Length Dosing, 100, kg, 06/10/24 12:48:00 EST, Weight Dosing E&M of New Patient Moderate 45-59 Min 41616 Urnls Dip Stick Auto w/o Microscopy POC 25688 2. H/O prostate cancer (Z85.46: Personal history of malignant neoplasm of prostate) Hx of prostate CA, tx'd w radium seeds 10/10/13. Follows with Dr. Gonzáles annually. PSA 06/13/23 - <0.13 05/08/24 - <0.1 Ordered: E&M of New Patient Moderate 45-59 Min 83877 3. Kidney stones (N20.0: Calculus of kidney) CT 06/03/24 - There are punctate bilateral renal calculi. There are no ureteral stones in the field of view. Ordered: E&M of New Patient Moderate 45-59 Min 30408 4. Renal cyst (N28.1: Cyst of kidney, acquired) Advised pt small cysts do not require monitoring. Follow-up With When Contact Information [facility] [address] [place] [address] Business (1) Additional Instructions: our ic design engineer will be contacting you for follow-up Patient Education Hematuria, Adult Problem List/Past Medical History Ongoing Anemia Atrial fibrillation Bile reflux gastritis BMI 28.0-28.9,adult BPH (benign prostatic hyperplasia) Cataract Change in bowel habits Coronary arteriosclerosis Diverticulosis Dyspepsia Gout H/O prostate cancer Helicobacter pylori ab+ Helicobacter pylori gastritis History of retinal detachment HTN (hypertension) Hypertensive disorder Iron deficiency anemia Kidney stones 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 Normal [facility] Comment on above: Result Comment: Elec tronically Signed By: WALLACE WEI PA-C\cindy\Date and Time Signed: 06/10/24 13:21 EST Office Visiton 06-03-2024 Follow-up visit [id number] Hanna Beckman 1955 M Date Provider Department Center 06/03/2024 3848-ALEXI WEEKS CARD [facility] Family History Problem Relation Age of Onset Stroke Mother Family Status - Relation Status Age at Mother Level of Service:47788 [place] OFFICE/OUTPATIENT ESTABLISHED MOD MDM 30 MIN [facility] 36on 12-08-2023 36 I called and let Dr. Heard's office know of Jazz's recommendation. I also asked them to fax over the shared decision making from Dr. Heard so we can get the patient scheduled to see Jazz in office to discuss LAAO. [facility] 36 Yes, recommend holdi ng Eliquis until seen by GI and clearance from them that he can resume. We can ask Dr. Heard to comment if he recommends patient for Watchman and to note this in his office note. Thanks [facility] [address] Dr. Heard's office maddi led asking for recommendations for Eliquis hold s/p significant red blood in stools. He was seen in [facility] ED on 12/05. I have uploaded records into director multimedia for your review. There's no discharge summary or H&P. Just an ED report. Dr. eHard's office said Dr. Heard has him holding Eliquis for now. Please advise. Thanks. [facility] Covid-19 PCR (CVDTBH)on SARS-CoV-2 (COVID-19) RNA ISIDRO+probe Ql (Unsp spec) Not detected Normal NOT DETECTED [facility] Comment on above: Result Comment: This test is not yet approved or cleared by the [place] FDA. When there are no FDA-approved or cleared tests available, and other criteria are met, FDA can make tests available under an emergency access mechanism called an Emergency Use Authorization (EUA). The EUA for this test is supported by the Senior Sharepoint Developer of Health and Human Service's (HHS's) declaration [...] T SH, T7, LIPA, EMILY, CMP #### [facility] [address] [place] [address] Dr. Emely Adrian CBC AUTO DIFFon 03-09-2022 BASO # 0.0 103/ul Normal 0.0-0.1 [facility] Comment on above: Performed By: #### T SH, T7, LIPA, EMILY, CMP #### [facility] [address] [place] [address] Dr. Emely Adrian Basophils/100 WBC (Bld) 0.1 % Critically low 0.2-2.0 [facility] Comment on above: Performed By: #### T SH, T7, LIPA, EMILY, CMP #### [facility] [address] [place] [address] Dr. Emely Adrian EO # 0.2 103/ul Normal 0.0-0.7 [facility] Comment on above: Performed By: #### T SH, T7, LIPA, EMILY, CMP #### [facility] [address] [place] [address] Dr. Emely Adrian Eosinophils/100 WBC (Bld) 3.2 % Normal 0.9-7.0 [facility] Comment on above: Performed By: #### T SH, T7, LIPA, EMILY, CMP #### [facility] [address] [place] [address] Dr. Emely Adrian Erythrocyte distribution width (RBC) [Ratio] 15.8 % Critically high 11.0-15.0 [facility] Comment on above: Performed By: #### T SH, T7, LIPA, EMILY, CMP #### [facility] [address] [place] [address] Dr. Emely Adiran Hematocrit (Bld) [Volume fraction] 26.6 % Critically low 42.0-54.0 [facility] Comment on above: Performed By: #### T SH, T7, LIPA, EMILY, CMP #### [facility] [address] [place] [address] Dr. Emely Adrian Hemoglobin (Bld) [Mass/Vol] 9.0 g/dL Critically low 14.0-18.0 [facility] Comment on above: Performed By: #### T SH, T7, LIPA, EMILY, CMP #### [facility] [address] [place] [address] Dr. Emely Adrian IG # 0.05 10e3/ul Critically high 0.00-0.03 [facility] Comment on above: Performed By: #### T SH, T7, LIPA, EMILY, CMP #### [facility] [address] [place] [address] Dr. Emely Adrian IG % 0.7 % Critically high 0.0-0.5 [facility] Comment on above: Performed By: #### T SH, T7, LIPA, EMILY, CMP #### [facility] [address] [place] [address] Dr. Emely Adrian LYMPH # 1.8 103/ul Normal 1.2-3.8 [facility] Comment on above: Performed By: #### T SH, T7, LIPA, EMILY, CMP #### [facility] [address] [place] [address] Dr. Emely Adrian Lymphocytes/100 WBC (Bld) 24.2 % Normal 20.5-60.0 [facility] Comment on above: Performed By: #### T SH, T7, LIPA, EMILY, CMP #### [facility] [address] [place] [address] Dr. Emely Adrian MANUAL DIFF REQ NO Normal [facility] Comment on above: Performed By: #### T SH, T7, LIPA, EMILY, CMP #### [facility] [address] [place] [address] Dr. Emely Adrian MCH (RBC) [Entitic mass] 32.7 pg Normal 25.9-34.0 [facility] Comment on above: Performed By: #### T SH, T7, LIPA, EMILY, CMP #### [facility] [address] [place] [address] Dr. Emely Adrian MCHC (RBC) [Mass/Vol] 33.8 g/dL Normal 29.9-35.2 [facility] Comment on above: Performed By: #### T SH, T7, LIPA, EMILY, CMP #### [facility] [address] [place] [address] Dr. Emely Adrian MCV (RBC) [Entitic vol] 96.7 fL Critically high 80.0-94.0 [facility] Comment on above: Performed By: #### T SH, T7, LIPA, EMILY, CMP #### [facility] [address] [place] [address] Dr. Emely Adrian MONO # 1.3 103/ul Critically high 0.3-0.8 [facility] Comment on above: Performed By: #### T SH, T7, LIPA, EMILY, CMP #### [facility] [address] [place] [address] Dr. Emely Adrian Monocytes/100 WBC (Bld) 18.0 % Critically high 1.7-12.0 [facility] Comment on above: Performed By: #### T SH, T7, LIPA, EMILY, CMP #### [facility] [address] [place] [address] Dr. Emely Adrian NEUT # 4.0 103/ul Normal 1.4-6.5 [facility] Comment on above: Performed By: #### T SH, T7, LIPA, EMILY, CMP #### [facility] [address] [place] [address] Dr. Emely Adrian Neutrophils/100 WBC (Bld) 53.8 % Normal 43.0-75.0 [facility] Comment on above: Performed By: #### T SH, T7, LIPA, EMILY, CMP #### [facility] [address] [place] [address] Dr. Emely Adrian Platelet mean volume (Bld) [Entitic vol] 8.7 fL Critically low 9.5-13.5 [facility] Comment on above: Performed By: #### T SH, T7, LIPA, EMILY, CMP #### [facility] [address] [place] [address] Dr. Emely Adrian PLT 320 103/ul Normal 150-450 [facility] Comment on above: Performed By: #### T SH, T7, LIPA, EMILY, CMP #### [facility] [address] [place] [address] Dr. Emely Adrian RBC 2.75 106/ul Critically low 4.70-6.10 [facility] Comment on above: Performed By: #### T SH, T7, LIPA, EMILY, CMP #### [facility] [address] [place] [address] Dr. Emely Adrian WBC 7.5 103/ul Normal 4.0-11.0 [facility] Comment on above: Performed By: #### T SH, T7, LIPA, EMILY, CMP #### [facility] [address] [place] [address] Dr. Emely Adrian LACTATE/LACTIC ACIDon 2021 Lactate [Moles/Vol] 0.7 mmol/L Normal 0.4-1.9 [facility] Comment on above: Performed By: #### T SH, T7, LIPA, EMILY, CMP #### [facility] [address] [place] [address] Dr. Emely Adrian LIPASEon 03-09-2022 Lipase [Catalytic activity/Vol] 386.0 U/L Normal 73.0-393.0 [facility] Comment on above: Performed By: #### C BC #### [facility] [address] [place] [address] Dr. Emely Adrian PROF 14(COMP METB)on Albumin [Mass/Vol] 2.9 g/dL Critically low 3.4-5.0 [facility] Comment on above: Performed By: #### C MP #### [facility] [address] [address] [address] Emely Adrian Albumin/Globulin [Mass ratio] 0.7 {ratio} Normal [facility] Comment on above: Performed By: #### C MP #### [facility] [address] [place] [address] Dr. Emely Adrian ALP [Catalytic activity/Vol] 43 U/L Critically low 46-116 [facility] Comment on above: Performed By: #### C MP #### [facility] [address] [place] [address] Dr. Emely Adrian ALT [Catalytic activity/Vol] 23 U/L Normal 16-63 [facility] Comment on above: Performed By: #### C MP #### [facility] [address] [place] [address] Dr. Emely Adrian Anion gap [Moles/Vol] 13.4 mmol/L Normal [facility] Comment on above: Performed By: #### C MP #### [facility] [address] [place] [address] Dr. Emely Adrian AST [Catalytic activity/Vol] 21 U/L Normal 15-37 [facility] Comment on above: Performed By: #### C MP #### [facility] [address] [place] [address] Dr. Emely Adrian Bilirubin [Mass/Vol] 0.4 mg/dL Normal 0.2-1.0 [facility] Comment on above: Performed By: #### C MP #### [facility] [address] [place] [address] Dr. Emely Adrian Calcium [Mass/Vol] 8.3 mg/dL Critically low 8.5-10.1 [facility] Comment on above: Performed By: #### C MP #### [facility] [address] [place] [address] Dr. Emely Adrian Chloride [Moles/Vol] 104 mmol/L Normal 98-107 [facility] Comment on above: Performed By: #### C MP #### [facility] [address] [address] [address] Emely Adrian CO2 [Moles/Vol] 22.9 mmol/L Normal 21.0-32.0 [facility] Comment on above: Performed By: #### C MP #### [facility] [address] [address] [address] Emely Adrian Creatinine [Mass/Vol] 1.80 mg/dL Critically high 0.70-1.30 [facility] Comment on above: Performed By: #### C MP #### [facility] [address] [address] [address] Emely Adrian EGFR-AF CROATIAN 46 mL/min/1.73m2 Critically low >=60 [facility] Comment on above: Performed By: #### C MP #### [facility] [address] [place] [address] Dr. Emely Adrian EGFR-NON AF CROATIAN 38 mL/min/1.73m2 Critically low >=60 [facility] Comment on above: Performed By: #### C MP #### [facility] [address] [place] [address] Dr. Emely Adrian Globulin (S) [Mass/Vol] 4.3 g/dL Normal [facility] Comment on above: Performed By: #### C MP #### [facility] [address] [place] [address] Dr. Emely Adrian Glucose [Mass/Vol] 105 mg/dL Normal 74-106 [facility] Comment on above: Performed By: #### C MP #### [facility] [address] [address] [address] Emely Adrian Potassium [Moles/Vol] 4.3 mmol/L Normal 3.5-5.1 [facility] Comment on above: Performed By: #### C MP #### [facility] [address] [address] [address] Emely Adrian Protein [Mass/Vol] 7.2 g/dL Normal 6.4-8.2 [facility] Comment on above: Performed By: #### C MP #### [facility] [address] [place] [address] Dr. Emely Adrian Sodium [Moles/Vol] 136 mmol/L Normal 136-145 [facility] Comment on above: Performed By: #### C MP #### [facility] [address] [address] [address] Emely Adrian Urea nitrogen [Mass/Vol] 35.0 mg/dL Critically high 7.0-18.0 [facility] Comment on above: Performed By: #### C MP #### [facility] [address] [place] [address] Dr. Emely Adrian Urea nitrogen/Creatinin e [Mass ratio] 19.4 mg/mg Normal [facility] Comment on above: Performed By: #### C MP #### [facility] [address] [place] [address] Dr. Emely Adrian PROTIMEon 03-09-2022 INR Coag (PPP) [Relative time] 1.12 {INR} Normal [facility] Comment on above: Performed By: #### P TT, PT #### [facility] [address] [place] [address] Dr. Emely Adrian INR GUIDELINES SEE BELOW Normal [facility] Comment on above: Result Comment: DUSTIN RED INR: 2.0 - 3.0 CONDITIONS NOT LISTED BELOW 2.5 - 3.5 FOR PROSTHETIC HEART VALVE REPLACEMENT 2.5 - 3.5 RECURRENT THROMBOSIS Performed By: #### P TT, PT #### [facility] [address] [place] [address] Dr. Emely Adrian PT Coag (PPP) [Time] 12.0 s Critically high 9.0-11.6 [facility] Comment on above: Performed By: #### P TT, PT #### [facility] [address] [place] [address] Dr. Emely Adrian PTTon 03-09-2022 aPTT Coag (Bld) [Time] 32.1 s Normal 22.3-36.2 [facility] Comment on above: Performed By: #### P TT, PT #### [facility] [address] [place] [address] Dr. Emely Adrian TROPONIN, HIGH SENSITIVITYon 03-09-2022 HSTROP 12.0 pg/mL Normal 4.0-76.1 [facility] Comment on above: Result Comment: CUT- OFF POINTS HAVE BEEN ESTABLISHED BASED ON THE FOURTH UNIVERSAL DEFINITIONS OF MYOCARDIAL INFARCTION. THE UPPER REFERENCE LIMIT (URL) OF TROPONIN, DEFINED THE 99TH PERCENTILE OF cTnI DISTRIBUTION IN A REFERENCE POPULATION, HAS BEEN CONFIRMED THE DECISION THRESHOLD FOR OR DIAGNOSIS. Performed By: #### T SH, T7, LIPA, EMILY, CMP #### [facility] [address] [address] [address] Emely Adrian TYPE AND SCREENon 03-09-2022 TYPE AND SCREEN Negative Normal [facility] Comment on above: Performed By: #### T SH, T7, LIPA, EMILY, CMP #### [facility] [address] [address] [address] Emely Adrian XR CHEST 1 Von [...] PATRICIO ANTON Date: 2022-03-09 10:17 Normal [facility] [place] 19-9on 02-26-2022 [place] 19-9 4 U/mL Normal 0-35 [facility] Comment on above: Result Comment: [employer] Electrochemiluminescence Immunoassay (ECLIA) . Values obtained with different assay methods or kits cannot be used interchangeably. Results cannot be interpreted as absolute evidence of the presence or absence of malignant disease. Performed By: #### T SH, T7, LIPA, EMILY, CMP #### [facility] [address] [address] [address] Emely Adrian CEAon 02-26-2022 CEA 1.9 ng/mL Normal 0.0-4.7 [facility] Comment on above: Result Comment: Nons mokers <3.9 Smokers <5.6 . [facility] Electrochemiluminescence Immunoassay (ECLIA) . Values obtained with different assay methods or kits cannot be used interchangeably. Results cannot be interpreted as absolute evidence of the presence or absence of malignant disease. Performed By: #### T BASIM T7, LIPA, EMILY, CMP #### [facility] [address] [place] [address] Dr. Emely Adrian H PYLORI ANTIBODY IGGon 02-08 H. PYLORI IGG ABS 1.19 Index Value Critically high 0.00-0. 79 [facility] Comment on above: Result Comment: Nega tive <0.80 Equivocal 0.80 - 0.89 Positive >0.89 Performed By: #### C BC #### [facility] [address] [place] [address] Dr. Emely Adrian AMYLASEon 02-25-2022 Amylase [Catalytic activity/Vol] 118 U/L Critically high 25-115 [facility] Comment on above: Performed By: #### T BASIM T7, LIPA, EMILY, CMP #### [facility] [address] [place] [address] Dr. Emely Adrian CBC AUTO DIFFon 02-25-2022 BASO # 0.0 103/ul Normal 0.0-0.1 [facility] Comment on above: Performed By: #### T BASIM T7, LIPA, EMILY, CMP #### [facility] [address] [place] [address] Dr. Emely Adrian Basophils/100 WBC (Bld) 0.2 % Normal 0.2-2.0 [facility] Comment on above: Performed By: #### T BASIM T7, LIPA, EMILY, CMP #### [facility] [address] [place] [address] Dr. Emely Adrian EO # 0.1 103/ul Normal 0.0-0.7 [facility] Comment on above: Performed By: #### T BASIM, T7, LIPA, EMILY, CMP #### [facility] [address] [place] [address] Dr. Emely Adrian Eosinophils/100 WBC (Bld) 2.8 % Normal 0.9-7.0 [facility] Comment on above: Performed By: #### T BASIM, T7, LIPA, EMILY, CMP #### [facility] [address] [place] [address] Dr. Emely Adrian Erythrocyte distribution width (RBC) [Ratio] 15.6 % Critically high 11.0-15.0 [facility] Comment on above: Performed By: #### T SH, T7, LIPA, EMILY, CMP #### [facility] [address] [place] [address] Dr. Emely Adrian Hematocrit (Bld) [Volume fraction] 28.9 % Critically low 42.0-54.0 [facility] Comment on above: Performed By: #### T SH, T7, LIPA, EMILY, CMP #### [facility] [address] [place] [address] Dr. Emely Adrian Hemoglobin (Bld) [Mass/Vol] 9.5 g/dL Critically low 14.0-18.0 [facility] Comment on above: Performed By: #### T SH, T7, LIPA, EMILY, CMP #### [facility] [address] [place] [address] Dr. Emely Adrian IG # 0.04 10e3/ul Critically high 0.00-0.03 [facility] Comment on above: Performed By: #### T SH, T7, LIPA, EMILY, CMP #### [facility] [address] [place] [address] Dr. Emely Adrian IG % 0.9 % Critically high 0.0-0.5 [facility] Comment on above: Performed By: #### T SH, T7, LIPA, EMILY, CMP #### [facility] [address] [place] [address] Dr. Emely Adrian LYMPH # 1.3 103/ul Normal 1.2-3.8 [facility] Comment on above: Performed By: #### T SH, T7, LIPA, EMILY, CMP #### [facility] [address] [place] [address] Dr. Emely Adrian Lymphocytes/100 WBC (Bld) 29.6 % Normal 20.5-60.0 [facility] Comment on above: Performed By: #### T SH, T7, LIPA, EMILY, CMP #### [facility] [address] [place] [address] Dr. Emely Adrian MANUAL DIFF REQ NO Normal [facility] Comment on above: Performed By: #### T SH, T7, LIPA, EMILY, CMP #### [facility] [address] [place] [address] Dr. Emely Adrian MCH (RBC) [Entitic mass] 32.1 pg Normal 25.9-34.0 [facility] Comment on above: Performed By: #### T SH, T7, LIPA, EMILY, CMP #### [facility] [address] [place] [address] Dr. Emely Adrian MCHC (RBC) [Mass/Vol] 32.9 g/dL Normal 29.9-35.2 [facility] Comment on above: Performed By: #### T SH, T7, LIPA, EMILY, CMP #### [facility] [address] [place] [address] Dr. Emely Adrian MCV (RBC) [Entitic vol] 97.6 fL Critically high 80.0-94.0 [facility] Comment on above: Performed By: #### T SH, T7, LIPA, EMILY, CMP #### [facility] [address] [place] [address] Dr. Emely Adrian MONO # 0.8 103/ul Normal 0.3-0.8 [facility] Comment on above: Performed By: #### T SH, T7, LIPA, EMILY, CMP #### [facility] [address] [place] [address] Dr. Emely Adrian Monocytes/100 WBC (Bld) 17.2 % Critically high 1.7-12.0 [facility] Comment on above: Performed By: #### T SH, T7, LIPA, EMILY, CMP #### [facility] [address] [place] [address] Dr. Emely Adrian NEUT # 2.2 103/ul Normal 1.4-6.5 [facility] Comment on above: Performed By: #### T SH, T7, LIPA, EMILY, CMP #### [facility] [address] [place] [address] Dr. Emely Adrian Neutrophils/100 WBC (Bld) 49.3 % Normal 43.0-75.0 [facility] Comment on above: Performed By: #### T SH, T7, LIPA, EMILY, CMP #### [facility] [address] [place] [address] Dr. Emely Adrian Platelet mean volume (Bld) [Entitic vol] 9.2 fL Critically low 9.5-13.5 [facility] Comment on above: Performed By: #### T SH, T7, LIPA, EMILY, CMP #### [facility] [address] [place] [address] Dr. Emely Adrian PLT 259 103/ul Normal 150-450 [facility] Comment on above: Performed By: #### T SH, T7, LIPA, EMILY, CMP #### [facility] [address] [place] [address] Dr. Emely Adrian RBC 2.96 106/ul Critically low 4.70-6.10 [facility] Comment on above: Performed By: #### T SH, T7, LIPA, EMILY, CMP #### [facility] [address] [place] [address] Dr. Emely Adrian WBC 4.4 103/ul Normal 4.0-11.0 [facility] Comment on above: Performed By: #### T SH, T7, LIPA, EMILY, CMP #### [facility] [address] [place] [address] Dr. Emely Adrian FREE THYROXINE INDEX T7on FTI 1.80 Normal 1.30-4.50 [facility] Comment on above: Performed By: #### T SH, T7, LIPA, EMILY, CMP #### [facility] [address] [place] [address] Dr. Emely Adrian T3U 34.0 % Normal 33.0-40.0 [facility] Comment on above: Performed By: #### T SH, T7, LIPA, EMILY, CMP #### [facility] [address] [place] [address] Dr. Emely Adrian T4 [Mass/Vol] 5.30 ug/dL Normal 4.50-12.10 [facility] Comment on above: Performed By: #### T SH, T7, LIPSergio, EMILY, CMP #### [facility] [address] [address] [address] Emely Adrian GI PANEL (PCR)on 02-25-2022 Adenovirus F 40/41 Not detected Normal NOT DETECTED [facility] Comment on above: Performed By: #### G IPANEL #### [facility] [address] [place] [address] Dr. Emely Adrian Astrovirus Not detected Normal NOT DETECTED [facility] Comment on above: Performed By: #### G IPANEL #### [facility] [address] [place] [address] Dr. Emely Adrian C. Diff toxin A/B Not detected Normal NOT DETECTED [facility] Comment on above: Performed By: #### G IPANEL #### [facility] [address] [place] [address] Dr. Emely Adrian Campylobacter Not detected Normal NOT DETECTED [facility] Comment on above: Performed By: #### G IPANEL #### [facility] [address] [place] [address] Dr. Emely Adrian Cryptosporidium Not detected Normal NOT DETECTED [facility] Comment on above: Performed By: #### G IPANEL #### [facility] [address] [place] [address] Dr. Emely Adrian Cyclos. Cayetanensis Not detected Normal NOT DETECTED [facility] Comment on above: Performed By: #### G IPANEL #### [facility] [address] [place] [address] Dr. Emely Adrian E. Coli O157 Not Applicable Normal Not Applicable [facility] Comment on above: Performed By: #### G IPANEL #### [facility] [address] [place] [address] Dr. Emely Adrian E. histolytica Not detected Normal NOT DETECTED [facility] Comment on above: Performed By: #### G IPANEL #### [facility] [address] [place] [address] Dr. Emely Adrian EAEC Not detected Normal NOT DETECTED [facility] Comment on above: Performed By: #### G IPANEL #### [facility] [address] [address] [address] Emely Adrian EIEC Not detected Normal NOT DETECTED [facility] Comment on above: Performed By: #### G IPANEL #### [facility] [address] [address] [address] Emely Adrina EPEC Not detected Normal NOT DETECTED [facility] Comment on above: Performed By: #### G IPANEL #### [facility] [address] [place] [address] Dr. Emely Adrian ETEC Not detected Normal NOT DETECTED [facility] Comment on above: Performed By: #### G IPANEL #### [facility] [address] [place] [address] Dr. Emely Olsen Lamblia Not detected Normal NOT DETECTED [facility] Comment on above: Performed By: #### G IPANEL #### [facility] [address] [place] [address] Dr. Emely STODDARD CONTROLS PASSED Normal [facility] Comment on above: Performed By: #### G IPANEL #### [facility] [address] [place] [address] Dr. Emely RODRIGUEZ [facility] HEAD[facility] GI PANEL BACTERIA Normal T [facility] Comment on above: Performed By: #### G IPANEL #### [facility] [address] [place] [address] Dr. Emely KAHN ECOLI GI PANEL DIARRHEAGEN IC E.COLI / SHIGELLA Normal [facility] Comment on above: Performed By: #### G IPANEL #### [facility] [address] [place] [address] Dr. Emely KAHN INFO SEE BELOW Normal [facility] Comment on above: Result Comment: EAEC - Enteroaggregative E. Coli EPEC- Enteropathogenic E. Coli ETEC- Enterotoxigenic E. Coli lt/st STEC- Shigella-like toxin-producing E. Coli stx1/stx2 EIEC- Shigella/Enteroinvasive E. Coli Performed By: #### G IPANEL #### [facility] [address] [place] [address] Dr. Emely KAHN PARASITES GI PANEL PARASITES Normal [facility] Comment on above: Performed By: #### G IPANEL #### [facility] [address] [address] [address] Emely KAHN VIRUS GI PANEL VIRUSES Normal [facility] Comment on above: Performed By: #### G IPANEL #### [facility] [address] [place] [address] Dr. Emely Adrian Norovirus GI/GII Not detected Normal NOT DETECTED [facility] Comment on above: Performed By: #### G IPANEL #### [facility] [address] [place] [address] Dr. Emely Adrian P. Shigelloides Not detected Normal NOT DETECTED [facility] Comment on above: Performed By: #### G IPANEL #### [facility] [address] [place] [address] Dr. Emely Adrian Rotavirus A Not detected Normal NOT DETECTED [facility] Comment on above: Performed By: #### G IPANEL #### [facility] [address] [place] [address] Dr. Emely Adrian Salmonella Not detected Normal NOT DETECTED [facility] Comment on above: Performed By: #### G IPANEL #### [facility] [address] [place] [address] Dr. Emely Adrian Sapovirus Not detected Normal NOT DETECTED [facility] Comment on above: Performed By: #### G IPANEL #### [facility] [address] [place] [address] Dr. Emely Adrian STEC Not detected Normal NOT DETECTED [facility] Comment on above: Performed By: #### G IPANEL #### [facility] [address] [place] [address] Dr. Emely Adrian Vibrio Not detected Normal NOT DETECTED [facility] Comment on above: Performed By: #### G IPANEL #### [facility] [address] [address] [address] Emely Adrian Vibrio Cholera Not detected Normal NOT DETECTED [facility] Comment on above: Performed By: #### G IPANEL #### [facility] [address] [address] [address] Emely Adrian Y. Enterocolitica Not detected Normal NOT DETECTED [facility] Comment on above: Performed By: #### G IPANEL #### [facility] [address] [address] [address] Emely Adrian GLYCOHEMOGLOBIN A1Con 2021 ADA RECOMMENDATION SEE BELOW Normal [facility] Comment on above: Result Comment: ADA RECOMMENDED LIMIT 4.0 - 6.0 ADA THERAPEUTIC TARGET < 7.0 ACTION SUGGESTED > 7.0 Performed By: #### T BASIM, T7, LIPA, EMILY, CMP #### [facility] [address] [place] [address] Dr. Emely Adrian Glucose [Mass/Vol] 120 mg/dL Normal [facility] Comment on above: Performed By: #### T BASIM, T7, LIPA, EMILY, CMP #### [facility] [address] [place] [address] Dr. Emely Adrian HbA1c (Bld) [Mass fraction] 5.8 % Normal 4.5-6.2 [facility] Comment on above: Performed By: #### T SH, T7, LIPA, EMILY, CMP #### [facility] [address] [place] [address] Dr. Emely Adrian IRONon 02-25-2022 Iron [Mass/Vol] 55.0 ug/dL Critically low 65.0-175.[address] [facility] Comment on above: Performed By: #### C BC #### [facility] [address] [place] [address] Dr. Emely Adrian LIPASEon 02-25-2022 Lipase [Catalytic activity/Vol] 671.0 U/L Critically high 73.0-393.0 [facility] Comment on above: Performed By: #### T SH, T7, LIPA, EMILY, CMP #### [facility] [address] [place] [address] Dr. Emely Adrian OCC BLD IMMUNO SCREENon 02-08 OCCULT BLOOD Positive Abnormal NEGATIVE [facility] Comment on above: Performed By: #### T SH, T7, LIPA, EMILY, CMP #### [facility] [address] [place] [address] Dr. Emely Adrian PROF 14(COMP METB)on 022 Albumin [Mass/Vol] 3.0 g/dL Critically low 3.4-5.0 [facility] Comment on above: Performed By: #### T SH, T7, LIPA, EMILY, CMP #### [facility] [address] [place] [address] Dr. Emely Adrian Albumin/Globulin [Mass ratio] 0.8 {ratio} Normal [facility] Comment on above: Performed By: #### T SH, T7, LIPA, EMILY, CMP #### [facility] [address] [place] [address] Dr. Emely Adrian ALP [Catalytic activity/Vol] 58 U/L Normal 46-116 [facility] Comment on above: Performed By: #### T SH, T7, LIPA, EMILY, CMP #### [facility] [address] [place] [address] Dr. Emely Adrian ALT [Catalytic activity/Vol] 25 U/L Normal 16-63 [facility] Comment on above: Performed By: #### T SH, T7, LIPA, EMILY, CMP #### [facility] [address] [place] [address] Dr. Emely Adrian Anion gap [Moles/Vol] 12.1 mmol/L Normal [facility] Comment on above: Performed By: #### T SH, T7, LIPA, EMILY, CMP #### [facility] [address] [place] [address] Dr. Emely Adrian AST [Catalytic activity/Vol] 20 U/L Normal 15-37 [facility] Comment on above: Performed By: #### T SH, T7, LIPA, EMILY, CMP #### [facility] [address] [place] [address] Dr. Emely Adrian Bilirubin [Mass/Vol] 0.2 mg/dL Normal 0.2-1.0 [facility] Comment on above: Performed By: #### T SH, T7, LIPA, EMILY, CMP #### [facility] [address] [place] [address] Dr. Emely Adrian Calcium [Mass/Vol] 8.3 mg/dL Critically low 8.5-10.1 [facility] Comment on above: Performed By: #### T SH, T7, LIPA, EMILY, CMP #### [facility] [address] [place] [address] Dr. Emely Adrian Chloride [Moles/Vol] 108 mmol/L Critically high 98-107 [facility] Comment on above: Performed By: #### T SH, T7, LIPA, EMILY, CMP #### [facility] [address] [place] [address] Dr. Emely Adrian CO2 [Moles/Vol] 24.5 mmol/L Normal 21.0-32.0 [facility] Comment on above: Performed By: #### T SH, T7, LIPA, EMILY, CMP #### [facility] [address] [place] [address] Dr. Emely Adrian Creatinine [Mass/Vol] 0.97 mg/dL Normal 0.70-1.30 [facility] Comment on above: Performed By: #### T SH, T7, LIPA, EMILY, CMP #### [facility] [address] [place] [address] Dr. Emely Adrian EGFR-AF CROATIAN >60 Normal >=60 [facility] Comment on above: Performed By: #### T SH, T7, LIPA, EMILY, CMP #### [facility] [address] [place] [address] Dr. Emely Adrian EGFR-NON AF CROATIAN >60 Normal >=60 [facility] Comment on above: Performed By: #### T SH, T7, LIPA, EMILY, CMP #### [facility] [address] [place] [address] Dr. Emely Adrian Globulin (S) [Mass/Vol] 3.8 g/dL Normal [facility] Comment on above: Performed By: #### T SH, T7, LIPA, EMILY, CMP #### [facility] [address] [place] [address] Dr. Emely Adrian Glucose [Mass/Vol] 97 mg/dL Normal 74-106 [facility] Comment on above: Performed By: #### T SH, T7, LIPA, EMILY, CMP #### [facility] [address] [place] [address] Dr. Emely Adrian Potassium [Moles/Vol] 4.6 mmol/L Normal 3.5-5.1 [facility] Comment on above: Performed By: #### T SH, T7, LIPA, EMILY, CMP #### [facility] [address] [place] [address] Dr. Emely Adrian Protein [Mass/Vol] 6.8 g/dL Normal 6.4-8.2 [facility] Comment on above: Performed By: #### T SH, T7, LIPA, EMILY, CMP #### [facility] [address] [place] [address] Dr. Emely Adrian Sodium [Moles/Vol] 140 mmol/L Normal 136-145 [facility] Comment on above: Performed By: #### T SH, T7, LIPA, EMILY, CMP #### [facility] [address] [place] [address] Dr. Emely Adrian Urea nitrogen [Mass/Vol] 20.0 mg/dL Critically high 7.0-18.0 [facility] Comment on above: Performed By: #### T SH, T7, LIPA, EMILY, CMP #### [facility] [address] [place] [address] Dr. Emely Adrian Urea nitrogen/Creatinin e [Mass ratio] 20.6 mg/mg Normal [facility] Comment on above: Performed By: #### T SH, T7, LIPA, EMILY, CMP #### [facility] [address] [place] [address] Dr. Emely Adrian TSHon 02-25-2022 TSH 1.247 uIU/mL Normal 0.358-3.740 [facility] Comment on above: Performed By: #### T BASIM T7, EMILY WIGGINS, CMP #### [facility] [address] [place] [address] Dr. Emely Adrian VITAMIN D 25 OHon 02-25-2022 VIT D 25-OH 23.9 ng/mL Normal [facility] Comment on above: Performed By: #### C BC #### [facility] [address] [place] [address] Dr. Emely Adrian VIT D RANGES SEE BELOW Normal [facility] Comment on above: Result Comment: <20 ng/mL Vit D deficient 20 - <30 ng/mL Vit D insufficient 30 - 100 ng/mL Vit D sufficient >100 ng/mL Potential Toxicity Performed By: #### C BC #### [facility] [address] [place] [address] Dr. Emely Adrian CREATININEon 12-30-2021 Creatinine [Mass/Vol] 1.21 mg/dL Normal 0.70-1.30 [facility] Comment on above: Performed By: #### T BASIM T7, FELICIANO EMILY, CMP #### [facility] [address] [place] [address] Dr. Emely Adrian EGFR-AF CROATIAN >60 Normal >=60 [facility] Comment on above: Performed By: #### T BASIM T7, FELICIANO EMILY, CMP #### [facility] [address] [place] [address] Dr. Emely Adrian EGFR-NON AF CROATIAN =60 Normal >=60 [facility] Comment on above: Performed By: #### T BASIM T7, FELICIANO EMILY, CMP #### [facility] [address] [place] [address] CHEST WO W [...] by: CARLOS CRUZ Date: 2021-12-30 08:46 Normal [facility] STRESS/REST MULTIon 11-09 PA STRESS/REST MULTI Patient: PABLO BECKMAN Exam Date: 11/09/2021 : 1955 Gender:M Ordering : DR GUILLERMO HEARD . Admission #: [id number] Family : Order #: [id number] CLICK HERE TO VIEW EXAM RADIOLOGY REPORT PROCEDURE: RADIONUCLIDE IMAGING STRESS/REST MULTI COMPARISON: PA STRESS/REST MULTI, 01/14/2021. INDICATIONS: Chest pain TECHNIQUE: [...] M.D. on 11/09/2021 at 14:17 Normal [facility] CARDIAC PHILIP 3-6on 2 CK [Catalytic activity/Vol] 114 U/L Normal 39-308 [facility] Comment on above: Performed By: #### T SH, T7, LIPA, EMILY, CMP #### [facility] [address] [address] [address] Emely Adrian CK.MB [Mass/Vol] 1.75 ng/mL Normal <=3.60 [facility] Comment on above: Performed By: #### T SH, T7, LIPA, EMILY, CMP #### [facility] [address] [place] [address] Dr. Emely Adrian HSTROP 10.8 pg/mL Normal 4.0-76.1 [facility] Comment on above: Result Comment: CUT- OFF POINTS HAVE BEEN ESTABLISHED BASED ON THE FOURTH UNIVERSAL DEFINITIONS OF MYOCARDIAL INFARCTION. THE UPPER REFERENCE LIMIT (URL) OF TROPONIN, DEFINED THE 99TH PERCENTILE OF cTnI DISTRIBUTION IN A REFERENCE POPULATION, HAS BEEN CONFIRMED THE DECISION THRESHOLD FOR OR DIAGNOSIS. Performed By: #### T SH, T7, LIPA, EMILY, CMP #### [facility] [address] [address] [address] Emely Adrian CK [Catalytic activity/Vol] 122 U/L Normal 39-308 [facility] Comment on above: Performed By: #### T SH, T7, LIPA, EIMLY, CMP #### [facility] [address] [place] [address] Dr. Emely Adrian CK.MB [Mass/Vol] 2.59 ng/mL Normal <=3.60 [facility] Comment on above: Performed By: #### T SH, T7, LIPA, EMILY, CMP #### [facility] [address] [address] [address] Emely Adrian HSTROP 10.5 pg/mL Normal 4.0-76.1 [facility] Comment on above: Result Comment: CUT- OFF POINTS HAVE BEEN ESTABLISHED BASED ON THE FOURTH UNIVERSAL DEFINITIONS OF MYOCARDIAL INFARCTION. THE UPPER REFERENCE LIMIT (URL) OF TROPONIN, DEFINED THE 99TH PERCENTILE OF cTnI DISTRIBUTION IN A REFERENCE POPULATION, HAS BEEN CONFIRMED THE DECISION THRESHOLD FOR OR DIAGNOSIS. Performed By: #### T SH, T7, LIPA, EMILY, CMP #### [facility] [address] [place] [address] Dr. Emely Adrian CK [Catalytic activity/Vol] 130 U/L Normal 39-308 [facility] Comment on above: Performed By: #### C BC #### [facility] [address] [place] [address] Dr. Emely Adrian CK.MB [Mass/Vol] 2.10 ng/mL Normal <=3.60 [facility] Comment on above: Performed By: #### C BC #### [facility] [address] [place] [address] Dr. Emely Adrian HSTROP 10.2 pg/mL Normal 4.0-76.1 [facility] Comment on above: Result Comment: CUT- OFF POINTS HAVE BEEN ESTABLISHED BASED ON THE FOURTH UNIVERSAL DEFINITIONS OF MYOCARDIAL INFARCTION. THE UPPER REFERENCE LIMIT (URL) OF TROPONIN, DEFINED THE 99TH PERCENTILE OF cTnI DISTRIBUTION IN A REFERENCE POPULATION, HAS BEEN CONFIRMED THE DECISION THRESHOLD FOR OR DIAGNOSIS. Performed By: #### C BC #### [facility] [address] [place] [address] Dr. Emely Adrian CARDIAC PHILIP ADMITon 022 CK [Catalytic activity/Vol] 164 U/L Normal 39-308 [facility] Comment on above: Performed By: #### C BC #### [facility] [address] [place] [address] Dr. Emely Adrian CK.MB [Mass/Vol] 3.38 ng/mL Normal <=3.60 [facility] Comment on above: Performed By: #### C BC #### [facility] [address] [place] [address] Dr. Emely Adrian HSTROP 9.5 pg/mL Normal 4.0-76.1 [facility] Comment on above: Result Comment: CUT- OFF POINTS HAVE BEEN ESTABLISHED BASED ON THE FOURTH UNIVERSAL DEFINITIONS OF MYOCARDIAL INFARCTION. THE UPPER REFERENCE LIMIT (URL) OF TROPONIN, DEFINED THE 99TH PERCENTILE OF cTnI DISTRIBUTION IN A REFERENCE POPULATION, HAS BEEN CONFIRMED THE DECISION THRESHOLD FOR OR DIAGNOSIS. Performed By: #### C BC #### [facility] [address] [place] [address] Dr. Emely Adrian ADY 124 ng/mL Critically high 16-96 [facility] Comment on above: Performed By: #### C BC #### [facility] [address] [place] [address] Dr. Emely Adrian CBC AUTO DIFFon 10-27-2021 BASO # 0.0 103/ul Normal 0.0-0.1 [facility] Comment on above: Performed By: #### C BC #### [facility] [address] [place] [address] Dr. Emely Adrian Basophils/100 WBC (Bld) 0.1 % Critically low 0.2-2.0 [facility] Comment on above: Performed By: #### C BC #### [facility] [address] [place] [address] Dr. Emely Adrian EO # 0.3 103/ul Normal 0.0-0.7 [facility] Comment on above: Performed By: #### C BC #### [facility] [address] [place] [address] Dr. Emely Adrian Eosinophils/100 WBC (Bld) 3.2 % Normal 0.9-7.0 [facility] Comment on above: Performed By: #### C BC #### [facility] [address] [place] [address] Dr. Emely Adrian Erythrocyte distribution width (RBC) [Ratio] 13.6 % Normal 11.0-15.0 [facility] Comment on above: Performed By: #### C BC #### [facility] [address] [place] [address] Dr. Emely Adrian Hematocrit (Bld) [Volume fraction] 32.2 % Critically low 42.0-54.0 [facility] Comment on above: Performed By: #### C BC #### [facility] [address] [place] [address] Dr. Emely Adrian Hemoglobin (Bld) [Mass/Vol] 10.5 g/dL Critically low 14.0-18.0 [facility] Comment on above: Performed By: #### C BC #### [facility] [address] [place] [address] Dr. Emely Adrian IG # 0.05 10e3/ul Critically high 0.00-0.03 [facility] Comment on above: Performed By: #### C BC #### [facility] [address] [place] [address] Dr. Emely Adrian IG % 0.6 % Critically high 0.0-0.5 [facility] Comment on above: Performed By: #### C BC #### [facility] [address] [place] [address] Dr. Emely Adrian LYMPH # 1.7 103/ul Normal 1.2-3.8 [facility] Comment on above: Performed By: #### C BC #### [facility] [address] [place] [address] Dr. Emely Adrian Lymphocytes/100 WBC (Bld) 19.7 % Critically low 20.5-60.0 [facility] Comment on above: Performed By: #### C BC #### [facility] [address] [place] [address] Dr. Emely Adrian MANUAL DIFF REQ NO Normal [facility] Comment on above: Performed By: #### C BC #### [facility] [address] [place] [address] Dr. Emely Adrian MCH (RBC) [Entitic mass] 31.7 pg Normal 25.9-34.0 [facility] Comment on above: Performed By: #### C BC #### [facility] [address] [place] [address] Dr. Emely Adrian MCHC (RBC) [Mass/Vol] 32.6 g/dL Normal 29.9-35.2 [facility] Comment on above: Performed By: #### C BC #### [facility] [address] [address] [address] Emely Adrian MCV (RBC) [Entitic vol] 97.3 fL Critically high 80.0-94.0 [facility] Comment on above: Performed By: #### C BC #### [facility] [address] [place] [address] Dr. Emely Adrian MONO # 1.0 103/ul Critically high 0.3-0.8 [facility] Comment on above: Performed By: #### C BC #### [facility] [address] [place] [address] Dr. Emely Adrian Monocytes/100 WBC (Bld) 12.4 % Critically high 1.7-12.0 [facility] Comment on above: Performed By: #### C BC #### [facility] [address] [place] [address] Dr. Emely Adrian NEUT # 5.4 103/ul Normal 1.4-6.5 [facility] Comment on above: Performed By: #### C BC #### [facility] [address] [place] [address] Dr. Emely Adrian Neutrophils/100 WBC (Bld) 64.0 % Normal 43.0-75.0 [facility] Comment on above: Performed By: #### C BC #### [facility] [address] [place] [address] Dr. Emely Adrian Platelet mean volume (Bld) [Entitic vol] 9.2 fL Critically low 9.5-13.5 [facility] Comment on above: Performed By: #### C BC #### [facility] [address] [place] [address] Dr. Emely Adrian PLT 417 103/ul Normal 150-450 [facility] Comment on above: Performed By: #### C BC #### [facility] [address] [address] [address] Emely Adrian RBC 3.31 106/ul Critically low 4.70-6.10 [facility] Comment on above: Performed By: #### C BC #### [facility] [id number] Emely Adrian WBC 8.4 103/ul Normal 4.0-11.0 [facility] Comment on above: Performed By: #### C BC #### [facility] [id number] Emely Adrian CTA CHEST WO W [...] by: CARLOS CRUZ Date: 2021-10-27 06:37 Normal [facility] Covid-19 PCR (CVDTBH)on 10-09 SARS-CoV-2 (COVID-19) RNA ISIDRO+probe Ql (Unsp spec) Not detected Normal NOT DETECTED [facility] Comment on above: Result Comment: When [...] this test is supported by the Senior Sharepoint Developer of Health and Human Service's declaration that [...] T SH, T7, LIPA, EMILY, CMP #### [facility] [address] [place] [address] Dr. Emely Adrian D-DIMERon 10-27-2021 D-DIMER 2.19 mg/L FEU Critically high <=0.59 [facility] Comment on above: Performed By: #### T SH, T7, LIPA, EMILY, CMP #### [facility] [address] [place] [address] Dr. Emely Adrian D-DIMER COMMENTS SEE BELOW Normal [facility] Comment on above: Result Comment: Incr eases [...] T SH, T7, LIPA, EMILY, CMP #### [facility] [address] [place], [place] [address] Dr. Emely Adrian DIGOXINon 10-27-2021 DIG <0.2 Critically low 0.9-2.0 [facility] Comment on above: Performed By: #### T SH, T7, LIPA, EMILY, CMP #### [facility] [address] [place], [place] [address] Dr. Emely Adrian ECHOCARDIO M/2D COMPLETEon 0 10-27-2021 ECHOCARDIO M/2D COMPLETE Patient: PABLO BECKMAN Exam Date: 10/27/2021 : 1955 Gender:M Ordering : DR GUILLERMO HEARD . Admission #: [id number] Family : Order #: [id number] CLICK HERE TO VIEW EXAM ECHOCARDIOGRAM REPORT [...] M.D. on 10/27/2021 at 17:01 Normal [facility] LACTATE/LACTIC ACIDon 2021 Lactate [Moles/Vol] 0.5 mmol/L Normal 0.4-1.9 [facility] Comment on above: Performed By: #### T SH, T7, LIPA, EMILY, CMP #### [facility] [address] [place] [address] Dr. Emely Adrian Lactate [Moles/Vol] 0.5 mmol/L Normal 0.4-1.9 [facility] Comment on above: Performed By: #### C BC #### [facility] [address] [place] [address] Dr. Emely Adrian PROF CHEM 8 (BAS METB)on Anion gap [Moles/Vol] 15.3 mmol/L Normal [facility] Comment on above: Performed By: #### C BC #### [facility] [address] [place] [address] Dr. Emely Adrian Calcium [Mass/Vol] 9.1 mg/dL Normal 8.5-10.1 [facility] Comment on above: Performed By: #### C BC #### [facility] [address] [place] [address] Dr. Emely Adrian Chloride [Moles/Vol] 105 mmol/L Normal 98-107 [facility] Comment on above: Performed By: #### C BC #### [facility] [address] [place] [address] Dr. Emely Adrian CO2 [Moles/Vol] 26.6 mmol/L Normal 21.0-32.0 [facility] Comment on above: Performed By: #### C BC #### [facility] [address] [place] [address] Dr. Emely Adrian Creatinine [Mass/Vol] 1.29 mg/dL Normal 0.70-1.30 [facility] Comment on above: Performed By: #### C BC #### [facility] [address] [place] [address] Dr. Emely Adrian EGFR-AF CROATIAN >60 Normal >=60 [facility] Comment on above: Performed By: #### C BC #### [facility] [address] [address] [address] Emely Adrian EGFR-NON AF CROATIAN 56 mL/min/1.73m2 Critically low >=60 [facility] Comment on above: Performed By: #### C BC #### [facility] [address] [address] [address] Emely Adrian Glucose [Mass/Vol] 100 mg/dL Normal 74-106 [facility] Comment on above: Performed By: #### C BC #### [facility] [address] [address] [address] Emely Adrian Potassium [Moles/Vol] 3.9 mmol/L Normal 3.5-5.1 [facility] Comment on above: Performed By: #### C BC #### [facility] [address] [address] [address] Emely Adrian Sodium [Moles/Vol] 143 mmol/L Normal 136-145 [facility] Comment on above: Performed By: #### C BC #### [facility] [address] [address] [address] Emely Adrian Urea nitrogen [Mass/Vol] 28.0 mg/dL Critically high 7.0-18.0 [facility] Comment on above: Performed By: #### C BC #### [facility] [address] [address] [address] Emely Adrian Urea nitrogen/Creatinin e [Mass ratio] 21.7 mg/mg Normal [facility] Comment on above: Performed By: #### C BC #### [facility] [address] [address] [address] Emely Adrian XR CHEST 1 Von [...] KARLY BASS Date: 2021-10-27 04:41 Normal [facility] Cardiovascular Lab Reporton 04-09-2021 Cardiovascular Lab Report [facility] Patient Name: [facility]k [facility] MR #: [id number] Physician: Mamta Stephenson, Department of [employer] WORKER Medicine Service Date: 04/07/2021 Division of Birthdate: 1955 Cardiology Room #: [facility] [address] [address] Cardiovascular Laboratory Report DATE OF PROCEDURE; 04/07/2021 [...] Weeks MD Date Trans: 04/09/2021 11:17 A/ [id number] Normal [facility] Vital Signs Date Time Vital Sign Value Performing Clinician Facility 06-10-2024 12:43-0500 Body temperature 97.88 [degF] WALLACE SANJUANA [facility] 06-10-2024 12:43-0500 Diastolic blood pressure 71 mm[Hg] WALLACE WEI [facility] 06-10-2024 12:43-0500 Heart rate 66 /min WALLACE SANJUANA [facility] 06-10-2024 12:43-0500 Respiratory rate 16 /min WALLACE SANJUANA [facility] 06-10-2024 12:43-0500 Systolic blood pressure 108 mm[Hg] WALLACE SANJUANA [facility] Encounters Encounter Date Encounter Type Care Provider Facility Start: 07-18-2024 End: 07-18-2024 ambulatory MAMTA STEPHENSON [facility] Start: 06-20-2024 End: 06-24-2024 Telephone encounter Quinton Gonzáles MD Work Phone: Radiation Oncology Comment on above: Future Appointment Start: 06-19-[address] [facility] Start: 06-19-2024 End: 06-19-2024 ambulatory [facility] Start: 06-18-2024 End: 06-19-2024 ambulatory Quinton Gonzáles MD Work Phone: Radiation Oncology Comment on above: Personal history of prostate cancer (Primary Dx) Start: 06-18-2024 End: 06-18-2024 Telemedicine consultation with patient Quinton Gonzáles MD Work Phone: Radiation Oncology Start: 06-10-2024 End: 06-10-2024 ambulatory PA-C WALLACE WEI Facility:[facility] Start: 06-10-2024 End: 06-10-2024 Lab Drop off WALLACE WEI [facility] Start: 06-10-2024 End: 06-10-2024 ambulatory PA-C WALLACE WEI Facility:[facility] Start: 06-10-2024 End: 06-10-2024 Patient encounter procedure WALLACE WEI [facility] Start: 06-03-2024 End: 06-03-2024 ambulatory [facility] Start: 06-21-2023 Telephone [...] BEAUCHAMP [facility] Start: 03-19-2022 Encounter for preprocedural laboratory examination DR PATRICIO BEAUCHAMP . [facility] Start: 03-18-2022 End: 03-18-[address] [...] 04-07-2021 End: 04-08-2021 ambulatory MAMTA STEPHENSON Facility:[facility] Procedures Date Procedure Procedure Detail Performing Clinician Start: 06-12-2024 PSA screening [facility] Start: 06-02-2022 End: 06-02-2022 PSA screening [facility] Provider Comment on above: Performed By: #### TSH, FELICIANO Linton AMY, C #### [facility] [address] [place] [address] Dr. Emely Adrian Start: 03-18-2022 Colonoscopy Patricio BEAUCHAMP Start: 03-18-2022 Esophagogastroduodenoscopy Patricio MARTIENZL Start: 10-17-2018 Colonoscopy Patricio NILL Start: 09-11-2009 [...] RSV Vaccine (1 - 1-dose 75+ series) [facility] Start: 06-12-2029 Prostate specific antigen measurement Prostate Cancer Screening Discussion [facility] Start: 06-12-2028 Prostate specific antigen measurement Prostate Cancer Screening Discussion [facility] Start: 06-02-2027 PROSTATE CANCER SCREENING DISCUSSION PROSTATE CANCER SCREENING DISCUSSION [facility] Start: 06-02-2027 Prostate specific antigen measurement Prostate Cancer Screening Discussion [facility] Start: 06-20-2025 End: 09-19-2025 Prostate specific Ag [Mass/volume] in Serum or Plasma PROSTATE-SPECIFIC ANTIGEN DIAGNOSTIC Lab Routine Personal history of prostate cancer Expected: 06/20/2025 (Approximate), Expires: 09/19/2025 [facility] Work Phone: Comment on above: Expected: 06/20/2025 (Approximate), Expires: 09/19/2025 Start: 06-18-2025 End: 06-18-2025 Follow-up encounter 06/18/2025 4:30 PM EDT [facility] [address] [place] [address] Quinton Gonzáles MD [address] [place] [address] 1 year follow up - PSA at [facility] Comment on above: 1 year follow up - P [facility] Start: 06-12-2024 End: 09-11-2024 Prostate specific Ag [Mass/volume] in Serum or Plasma PSA/PROSTSPECAG DIAG Lab Routine Malignant neoplasm of prostate (HCC) Expected: 06/12/2024, Expires: 09/11/2024 [facility] Work Phone: Comment on above: Expected: 06/12/2024 , Expires: 09/11/2024 Start: 04-10-2024 Advance Directive Discussion Advance Directive Discussion [facility] Start: 12-10-2023 Covid-19 Vaccine ( season) Covid-19 Vaccine ( season) [facility] Start: 12-10-2023 Influenza vaccination Influenza Vacc ine (#1) [facility] Start: 05-23-2023 End: 08-22-2023 Prostate specific Ag [Mass/volume] in Serum or Plasma PSA/PROSTSPECAG DIAG Lab Routine Malignant neoplasm of prostate (HCC) Expected: 05/23/2023, Expires: 08/22/2023 [facility] Work Phone: Comment on above: Expected: 05/23/2023 , Expires: 08/22/2023 Start: 04-10-2023 Advance Directive Discussion Advance Directive Discussion [facility] Start: 04-10-2023 Depression Assessment Depression Ass essment [facility] Start: 01-18-2023 Pneumococcal Vaccine : 50+ (2 of 2 - PPSV23) Pneumococcal Vaccine: 50+ (2 of 2 - PPSV23) [facility] Start: 01-18-2023 Pneumococcal Vaccine : 65+ (2 of 2 - PPSV23 or PCV20) Pneumococcal Vaccine: 65+ (2 of 2 - PPSV23 or PCV20) [facility] Start: 12-09-2022 Covid-19 Vaccine ( season) Covid-19 Vaccine ( season) [facility] Start: 12-09-2022 Influenza vaccination Influenza Vacc ine (#1) [facility] Start: 04-10-2022 ADVANCE DIRECTIVE DISCUSSION ADVANCE DIRECTIVE DISCUSSION [facility] Start: 04-10-2022 DEPRESSION ASSESSMENT DEPRESSION ASS ESSMENT [facility] Start: 12-09-2021 Influenza vaccination INFLUENZA (#1) [facility] Start: 2021 PNEUMOCOCCAL: 65+ (1 - PCV) PNEUMOCOCCAL: 65+ (1 - PCV) [facility] Start: 09-24-2020 COVID-19 VACCINE (3 - Booster for Pfizer series) COVID-19 VACCINE (3 - Booster for Pfizer series) [facility] Start: 2016 RSV Vaccine (1 - 1-d ose 60+ series) RSV Vaccine (1 - 1-dose 60+ series) [facility] Start: 2006 SHINGRIX VACCINE (1 of 2) SHINGRIX VACCINE (1 of 2) [facility] Start: 2001 COLOGUARD (FIT-DNA) COLOGUARD (FIT-D NA) [facility] Start: 2001 Colonoscopy COLONOSCOPY [facility] Start: 2001 COLORECTAL CANCER SCREENING COLORECTAL CANCER SCREENING [facility] Start: [address] COLONOGRAPHY [facility] Start: 2001 DIABETES SCREEN DIABETES SCREEN [facility] Start: 2001 Diabetes Screening Diabetes Screenin g [facility] Start: 2001 FECAL OCCULT BLOOD FECAL OCCULT BLOO D [facility] Start: 2001 Screening for malign ant neoplasm of colon [facility] Start: 2001 SIGMOIDOSCOPY SIGMOIDOSCOPY [facility] Start: 10-21-1991 Lipid panel Lipid Screening [facility] Start: 10-21-1991 LIPID SCREEN LIPID SCREEN [facility] Start: 10-21-1975 Urine microalbumin profile [facility] Start: 1974 Anxiety Screening Anxiety Screening [facility] Start: 1974 Depression Screening Depression Scre ening [facility] Start: 1974 HEPATITIS C SCREENING HEPATITIS C [facility] Start: 1974 Hepatitis C screening Hepatitis C [facility] Start: 1974 HIV SCREENING HIV SCREENING [facility] Start: 1955 ABDOMINAL AORTIC ANEURYSM SCREENING ABDOMINAL AORTIC ANEURYSM SCREENING [facility] Start: 1955 Abdominal aortic aneurysm screening Abdominal Aortic Aneurysm Screening [facility] Immunizations Immunization Date Immunization Notes Care Provider Fa cility NEGATED: Highlighted row has not occurred!03-08-2022 influenza virus vaccine, unspecified formulation Patricio CAMILLE [facility] Payers Date Payer Category Payer Unknown [id number] 2023 Medicare DEVOTED MEDICARE [employer]OT[employer] [place] [id number] 2023-Present [phone] [address] [place] [address] HMO [id number] 2023 Unknown [id number] 2022 Private Health Insurance [id number] 2006 Unknown [facility] [id number] 2006-Present [phone] [place] [address] [id number] 1959 Unknown [id number] 1959 Unknown [id number] 1955 Unknown [id number]. 2.647 1955 Unknown [id number]. 2.593 1955 Unknown [id number]. 2.593 1955 Unknown [id number]. 2.593 1955 Unknown [id number]. 2.593 1955 Unknown [id number]. 2.593 1955 Unknown [id number]. 2.593 1955 Unknown [id number]. 2.593 1955 Unknown [id number]. 2.593 1955 Unknown [id number] [id number] 1955 Unknown [id number] [id number] Social History Date Type Detail Facility Start: 06-24-2020 End: 03-08-2022 Tobacco smoking status Ex-smoker (finding) [facility] Tobacco smoking status Never [facility] Start: 06-24-2020 End: 06-18-2024 Sex Assigned At Male [facility] Start: 06-11-1979 End: 06-10-1989 History of tobacco use Current smoker [facility] Start: 06-11-1979 End: 06-10-1989 History of tobacco use Cigarette Smoker [facility] Start: 06-24-2020 End: 06-18-2024 Cigarettes smoked current (pack per day) - Reported 1.5 [facility] Start: 06-24-2020 Tobacco use and exposure Smokeless tobacco non-user [facility] Start: 06-24-2020 Alcohol intake Not Asked [facility] Start: 1955 Sex Assigned At Not on file C [facility] Functional Status Date Assessment Result Facility 06-10-2024 Functional Status N/A [facility] 06-10-2014 Are you deaf, or do you have serious difficulty hearing Yes 06/10/2014 9:10 AM Josefina Davidson, TOTOIE Yes [facility] 06-10-2014 Are you blind, or do you have serious difficulty seeing, even when wearing glasses No 06/10/2014 9:10 AM Josefina Davidson, TOOTIE No [facility] 06-10-2014 Do you have serious difficulty walking or climbing stairs Yes 06/10/2014 9:10 AM Josefina Davidson, TOOTIE Yes [facility] 06-10-2014 Do you have difficul ty dressing or bathing No 06/10/2014 9:10 AM Josefina Davidson, TOOTIE No [facility] 06-10-2014 Because of a physica l, mental, or emotional condition, do you have difficulty doing errands alone such as visiting a physician's office or shopping No 06/10/2014 9:10 AM Josefina Davidson RN No [facility] Mental Status Date Assessment Result Facility 06-10-2014 Because of a physica l, mental, or emotional condition, do you have serious difficulty concentrating, remembering, or making decisions No 06/10/2014 9:10 AM Josefina Davidson RN No [facility] Clinical Notes 03-18-2022 to 07-18-2024 Telephone Encounter - Kitty Bruner - 06/24/2024 12:58 PM EDTTelephone Encounter - Kitty Bruner - 06/24/2024 12:58 PM EDTTelephone Encounter - Josefina Anderson RN - 06/20/2024 11:16 AM EDT Note Date & Type Note Facility 07-18-2024 Note Cardiovascular [facility] SUBJECTIVE Chief Complaint Patient presents with Coronary [...] he cuts himself at work. 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 He denies any changes since last seen [...] History of retinal detachment Iron deficiency anemia USP current use of anticoagulant Macular puckering Melena [...] by mouth onc (more content not included)... [facility] 07-18-2024 Note Patient is here for a follow up appointment S/p PTCA stent. Patient states he get short of breath with exertion he denies chest pain. Patient would like to talk about possible stopping one of his blood thinners due to bruising. Review of Systems Cardiovascular: Positive for dyspnea on exertion. Hematologic/Lymphatic: Bruises/bleeds easily. [facility] 06-24-2024 Telephone encounter Note Pablo is scheduled for his 1 year follow up on 06/18/24 at 4:30. His lab order has been faxed to [facility]. Kitty B PSS [facility] 06-24-2024 Miscellaneous Notes Pablo is scheduled for his 1 year follow up on 06/18/24 at 4:30. His lab order has been faxed to [facility]. Kitty B PSS GAYLE- please sign order. Josefina Anderson RN Appointment scheduled in 1 year, will need to fax PSA order to [facility] when available. Images from the original note were not included. Message Received: 2 days ago Quinton Gonzáles MD [facility] Nurse Pool; Josefina Mulligan One year with psa documented in this encounter [facility] 06-20-2024 Telephone encounter Note GAYLE- please sign order. Josefina Anderson RN [facility] 06-20-2024 Telephone encounter Note Appointment scheduled in 1 year, will need to fax PSA order to [facility] when available. [facility] 06-20-2024 Telephone encounter Note Images from the original note were not included. Message Received: 2 days ago Quinton Gonzáles MD P [facility] Nurse Pool; Josefina Mulligan One year with psa [facility] 06-18-2024 Note HNO ID: [id number] Author: Quinton GONZÁLES MD Service: ? Author [...] Total Time Spent: 10minutes Quinton Gonzáles MD [facility] 06-18-2024 History of Present illness Narrative AMBULATORY [...] Quinton Gonzáles MD documented in this encounter [facility] 06-10-2024 Hospital Discharge instructions Patient Education 06/10/2024 [...] Follow these instructions at home: Medicines Take mfwt-enw-wutidqx and prescription medicines only as told by [...] or the blood stops without treatment. Take lonn-fmf-slzaweq and prescription medicines only as told by your health care provider. Drink enough fluid to keep your urine pale yellow. This information is not intended to replace advice given to you by your health care provider. Make sure you discuss any questions you have with your health care provider. Document Revised: 11/25/2020 Document Reviewed: 11/25/2020 [employer] Patient Education 2023 [employer]. Follow Up Care 06/07/2024 09:57:37 With:[facility] [place] Address: [address] [place] [address] Business (1) When: Unknown Comments:our ic design engineer will be contacting you for follow-up [facility] 06-10-2024 Evaluation + Plan note Diagnostic Tests PendingUrine Cytology ([facility]) 06/10/24 [facility] 06-10-2024 Note Patient Education Urology Hematuria, Adult [...] these instructions at home: Medicines ??? Take lxab-yer-eqiqglq and prescription medicines only as told by [...] the blood stops without treatment. ??? Take ifgg-yld-uqutwai and prescription medicines only as told by your health care provider. ??? Drink enough fluid to keep your urine pale yellow. This information is not intended to replace advice given to you by your health care provider. Make sure you discuss any questions you have with your health care provider. Document Revised: 11/25/2020 Document Reviewed: 11/25/2020 [employer] Patient Education ? 2023 [employer]. [facility] 06-03-2024 Note Cardiology Clinic No te Chief [...] Value Ventricular Rate 62 Atrial Rate 62 [place] Interval 110 QRS DURATION 90 QT Interval 446 QTC CALCULATION(BAZETT) 452 P Belsano 4 R-Belsano 4 T Wave Belsano -11 Impression Sinus rhythm Since previous tracing [...] portion of t (more content not included)... [facility] 06-21-2023 Miscellaneous Notes Melvina called to reschedule [...] Latisha Rojas RN documented in this encounter [facility] 05-23-2023 Miscellaneous Notes PT called in to schedule follow up for this year. He will also need PSA. Please sign pended order and we will fax to [facility]. Josefina Anderson RN documented in this encounter [facility] 06-23-2022 History of Present illness Narrative [...] Quinton Gonzáles MD documented in this encounter [facility] 06-23-2022 Miscellaneous Notes Appointment has been changed in Epic. Kwaku Rasmussen Per Dr Gonzáles, ok to switch to phone visit. Patient was notified. PSS- please change in epic. Josefina Anderson RN Pablo called wondering if his follow up appointment can be switched to a phone visit tomorrow. Please advise. Latisha Rojas LPN documented in this encounter [facility] 03-18-2022 Note OPERATIVE NOTE OPERATION DATE: [...] good condition. CC: Guillermo Heard M.D. [facility] Evaluation + Plan note No data available for this section General Surgery [facility] Evaluation note Diagnosis Malignant neoplasm of prostate (HCC)- Primary Malignant neoplasm of prostate documented in this encounter [facility] note* Diagnosis Malignant neoplasm of prostate (HCC)- Primary Malignant neoplasm of prostate documented in this encounter [facility] note* Diagnosis Malignant neoplasm of prostate (HCC)- Primary Malignant neoplasm of prostate documented in this encounter [facility] note* Diagnosis Personal history of prostate cancer- Primary Personal history of malignant neoplasm of prostate documented in this encounter [facility] note* Diagnosis Personal history of prostate cancer- Primary Personal history of malignant neoplasm of prostate documented in this encounter [facility] Discharge instructions No data available for this section General Surgery [facility] Progress note No data available for this section General Surgery [facility] Summary Purpose Family History No Family History [...] and content) DATE CREATED AUTHOR 04/15/2021 [facility] DATE CREATED AUTHOR AUTHOR'S ORGANIZ ATION 08/08/2022 [facility] DATE CREATED AUTHOR AUTHOR'S ORGANIZ ATION 06/16/2024 [facility] DATE CREATED AUTHOR AUTHOR'S ORGANIZ ATION 06/26/2024 [facility] DATE CREATED AUTHOR AUTHOR'S ORGANIZ ATION 09/11/2024 [facility] Patient Care team informatio n (unrecognized section and content) Field Specialist Relationship Specialty Start Date End Date Guillermo Heard MD PCP - General 02/24/09 Field Specialist Relationship Specialty Start Date End Date Guillermo Heard MD PCP - General 02/24/09 Field Specialist Relationship Specialty Start Date End Date Guillermo Heard MD PCP - General 02/24/09 Field Specialist Relationship Specialty Start Date End Date Guillermo Heard MD PCP - General 02/24/09 Source Comments (unrecognize d section and content) In the event this informatio n is protected by the Federal Confidentiality of Alcohol and Drug Abuse Patient Records regulations: The Federal rules restrict any use of the information to criminally investigate or prosecute any alcohol or drug abuse patient.[facility] the event this information is protected by the Federal Confidentiality of Alcohol and Drug Abuse Patient Records regulations: The Federal rules restrict any use of the information to criminally investigate or prosecute any alcohol or drug abuse patient.[facility] the event this information is protected by the Federal Confidentiality of Alcohol and Drug Abuse Patient Records regulations: The Federal rules restrict any use of the information to criminally investigate or prosecute any alcohol or drug abuse patient.[facility] the event this information is protected by the Federal Confidentiality of Alcohol and Drug Abuse Patient Records regulations: The Federal rules restrict any use of the information to criminally investigate or prosecute any alcohol or drug abuse patient.[facility] the event this information is protected by the Federal Confidentiality of Alcohol and Drug Abuse Patient Records regulations: The Federal rules restrict any use of the information to criminally investigate or prosecute any alcohol or drug abuse patient.[facility] the event this information is protected by the Federal Confidentiality of Alcohol and Drug Abuse Patient Records regulations: The Federal rules restrict any use of the information to criminally investigate or prosecute any alcohol or drug abuse patient.[facility] Reason for Visit (unrecogniz ed section and content) Reason Comments Patient Question Reason Comments Established Patient Specialty Diagnoses / Procedures Referred By Contac t Referred To Contact Radiation Oncology / RADIATION ONCOLOGY Diagnoses Follow-up examination 1 yr follow up, psa at [facility] Procedures OFFICE/OUTPATIENT ESTABLISHED MOD MDM 30-39 MIN EST PATIENT Quinton Gonzáles MD [address] [place] [address] [place] [address] Quinton Gonzáles MD [address] [place] [address] [place] [address] Referral ID Status Reason Start Date Expiration Date Visits Re quested Visits Authorized [id number] Open 06/23/2022 09/21/2022 1 0 Reason Comments [...] BE BASED ON THE PRIMARY CLINICAL RECORDS. [employer] [facility]. provides no warranty or guarantee of the accuracy or completeness of information in this document.
[2025-01-22 10:45] LABS: Anion Gap 13.5; Blood Urea Nitrogen 37.0 mg/dL (7.0-18.0); Calcium 9.2 mg/dL (8.5-10.1); Carbon Dioxide 29.6 mmol/L (21.0-32.0); Chloride 104 mmol/L (98-107); Estimated GFR (African America >60 (>=60 mL/min/1.73m^2); Estimated GFR (Non-African Ame >60 (>=60 mL/min/1.73m^2); Glucose 95 mg/dL (74-106); Potassium 4.1 mmol/L (3.5-5.1); Sodium 143 mmol/L (136-145)
== END 2025-01-22 10:11 | disposition home or self-care (01) ==
LOC: LAB 10:11
PROVIDERS: PCP Family Medicine; Visit Provider Internal Medicine Cardiovascular Disease
DX: I48.0 Paroxysmal atrial fibrillation (principal)
CPT/HCPCS: 36415; 80048

== ENCOUNTER 2025-01-28 07:41 | Outpatient (OUT) | payer MEDICARE, SELFPAY ==
--- OUTSIDE RECORDS SUMMARY | 2025-01-22 09:40 | XMS_ITS | Encounter Summary ---
Author Organization [facility] Address [address] [place] [address] Care Team Providers Care Development Professional Name Role Phone Guillermo Heard MD Primary Care Provider Reason for Visit * ReasonCommentsFollow-upPatient is here today for a 6 month follow up appointment. Patient denies chest pain, leg swelling,racing heart/palpitations.Complains of SOB/ANDERSON, bleeding/bruising/discoloration, fatigue if he overworks himself.Aneurysm of ascending aortaHypertensionLeft ventricular systolic dysfunctionAtrial FibrillationNSVTCoronary Artery Disease Hyperlipidemia Encounter Details DateTypeDepartmentCare Team (Latest Contact Info)Xudjlhyqbsv60/15/2025 9:40 AM EDTOffice Visit [facility] [address] [place] [address] Anjel Corona MD [address] [place] [address] Aneurysm of ascending aorta without rupture (Primary Dx); Paroxysmal atrial fibrillation (CMS/HCC) Social History Tobacco UseTypesPacks/DayYears UsedDateSmoking Tobacco: FormerCigarettes Smokeless Tobacco: NeverAlcohol UseStandard Drinks/WeekCommentsYes0 (1 standard drink = 0.6 oz pure alcohol)OCCASIONALUT Safety & EnvironmentAnswerDate Recorded Fear of Current or Ex-PartnerNot on file06/01/2023Emotionally AbusedNot on file 06/01/2023hysically AbusedNot on file06/01/2023Sexually AbusedNot on file 06/01/2023hysically or Sexually AbusedNot on file06/01/2023Sex and Gender InformationValueDate RecordedSex Assigned at OkgisWcxw08/10/2025 11:07 AM EDT Legal XlePnse7110/07/2021 12:40 AM EDTGender BnpdlyakZevl22/10/2025 11:07 AM EDT Sexual OrientationHeterosexual or Stjzmfss40/10/2025 11:07 AM EDTdocumented as of this encounter Last Filed Vital Signs Vital SignReadingTime TakenCommentsBlood Dcomjilp869/8401/22/2025 9:38 AM EDT Okggu265101/22/2025 9:38 AM EDTTemperature--Respiratory Rate--Oxygen Saturation-- Inhaled Oxygen Concentration--Qhbrhr89.5 kg (204 lb)01/22/2025 9:38 AM EDTHeight 172.7 cm (5' 8 )01/22/2025 9:38 AM EDTBody Mass Index31.021 9:38 AM EDT documented in this encounter Functional Status * BPAnswerDate of KfvbdtjqvdXheqhm369/8401/22/2025 9:38 AM Michelle King MA * PulseAnswerDate of TlrnmskzwwHxigos4424/15/2025 9:38 AM Michelle King MA * Patient PositionAnswerDate of BuxtsslqyoWlscglZnqifld84/15/2025 9:38 AM EDT Michelle Pruitt MA * BPAnswerDate of IasxzuhwtrUteeon535/8401/22/2025 9:38 AM Michelle King MA * PulseAnswerDate of TzylflfzqmPapevv9518/15/2025 9:38 AM Michelle King MA * BP LocationAnswerDate of AssessmentAuthorRight [facility]01/22/2025 9:38 AM EDT Michelle Pruitt MA * Patient PositionAnswerDate of LugfrertluKqhlxuDniiekw22/15/2025 9:38 AM EDT Michelle Pruitt MA documented as of this encounter Progress Notes * Anjel Corona MD - 01/22/2025 9:40 AM EDT Subjective Patient ID: Dillon Beckman is a 69 y.o. male who presents for Follow-up (Patient is here today for a 6 month follow up appointment. Patient denies chest pain, leg swelling, racing heart/palpitations.Complains of SOB/ANDERSON, bleeding/bruising/discoloration, fatigue if he over works himself.), Aneurysm of ascending aorta, Hypertension, Left ventricular systolic dysfunction, Atrial Fibrillation, NSVT, Coronary Artery Disease, and Hyperlipidemia. Lost some weight and feeling a lot better and moving around better. Not eating as much and doing more things. NO problems, chest pain. Can feel SOB when over-exerts Walking more and has gotten better with that Hypertension Atrial Fibrillation Past medical history includes atrial fibrillation, CAD and hyperlipidemia. Coronary Artery Disease Risk factors include hyperlipidemia. Hyperlipidemia Review of Systems Objective Visit Vitals BP 122/84 (BP Location: Right arm, Patient Position: Sitting) Pulse 61 Physical Exam Constitutional: Appearance: Normal appearance. He is obese. Cardiovascular: Rate and Rhythm: Normal rate and regular rhythm. No extrasystoles are present. Pulses: Normal pulses. Carotid pulses are 2+ on the right side and 2+ on the left side. Radial pulses are 2+ on the right side and 2+ on the left side. Heart sounds: Normal heart sounds. No murmur heard. No friction rub. No gallop. Pulmonary: Effort: Pulmonary effort is normal. Breath sounds: Normal breath sounds. Abdominal: Comments: Truncal obesity Musculoskeletal: Right lower leg: No edema. Left lower leg: No edema. Skin: General: Skin is warm and dry. Neurological: General: No focal deficit present. Mental Status: He is alert and oriented to person, place, and time. Psychiatric: Mood and Affect: Mood normal. Behavior: Behavior normal. Thought Content: Thought content normal. Judgment: Judgment normal. Assessment/Plan Mr Beckman is feeling better after some weight loss and increased physical activity. We discussed the importance of this in successful aging. Regarding afib, in sinus today (by exam). Ascending aneurysm: plan CTA chest (last evaluation 01/30). Will check BMP prior. Diagnosis Plan 1. Aneurysm of ascending aorta without rupture 2. Paroxysmal atrial fibrillation (CMS/HCC) No orders of the defined types were placed in this encounter. No results found for this or any previous visit (from the past 36 hours). Follow up in about 1 year (around 01/22/2026) for Recheck. documented in this encounter Plan of Treatment Not on file documented as of this encounter Visit Diagnoses Diagnosis Aneurysm of ascending aorta without rupture- Primary Paroxysmal atrial fibrillation (CMS/HCC) Atrial fibrillation documented in this encounter Care Teams Team MemberRelationshipSpecialtyStart DateEnd Date Guillermo Heard MD [address] [place], [place] [address] [address] [facility] - General12/11/21documented as of this encounter
--- OUTSIDE RECORDS SUMMARY | 2025-01-28 07:43 | XMS_ITS | Encounter Summary ---
Author Organization [facility] Address [address] [place] [address] Care Team Providers Care Commutator Undercutter Name Role Phone Guillermo Heard MD Primary Care Provider [phone] Encounter Details DateTypeDepartmentCare Team (Latest Contact Info)Hfiqrbenwxn41/15/2025Orders Only [facility] [address] [place] [address] Maggie Viera MA Paroxysmal atrial fibrillation (CMS/HCC) (Primary Dx) Social History Tobacco UseTypesPacks/DayYears UsedDateSmoking Tobacco: FormerCigarettes Smokeless Tobacco: NeverAlcohol UseStandard Drinks/WeekCommentsYes0 (1 standard drink = 0.6 oz pure alcohol)OCCASIONALUT Safety & EnvironmentAnswerDate Recorded Fear of Current or Ex-PartnerNot on file06/01/2023Emotionally AbusedNot on file 4Physically AbusedNot on file06/01/2023Sexually AbusedNot on file 4Physically or Sexually AbusedNot on file06/01/2023Sex and Gender InformationValueDate RecordedSex Assigned at IxqhpGteb06/10/2025 11:07 AM EDT Legal NyfInkd7110/07/2021 12:40 AM EDTGender AaiimyklSeiy96/10/2025 11:07 AM EDT Sexual OrientationHeterosexual or Iqfooiwr03/10/2025 11:07 AM EDTdocumented as of this encounter Functional Status * BPAnswerDate of TtlvhqubhgXuvxuj565/8401/22/2025 9:38 AM NIDIATCMichelle lang MA * PulseAnswerDate of OjiwzecesfVryrlp1044/15/2025 9:38 AM Michelle King MA * Patient PositionAnswerDate of JrctzndkphDfsblmGgfhplh71/15/2025 9:38 AM EDT Michelle Pruitt MA * BPAnswerDate of UulrbvdjxxOktrin159/8401/22/2025 9:38 AM Michelle King MA * PulseAnswerDate of UaaawzrapxQuadue8211/15/2025 9:38 AM Michelle King MA * BP LocationAnswerDate of AssessmentAuthorRight arm01/22/2025 9:38 AM EDT Michelle Pruitt MA * Patient PositionAnswerDate of ChjisfeljlRiefpcEitrkni39/15/2025 9:38 AM Michelle Brennan MA documented as of this encounter Plan of Treatment NameTypePriorityAssociated DiagnosesOrder ScheduleBasic metabolic panelLab Routine Paroxysmal atrial fibrillation (CMS/HCC) Expected: 01/22/2025 (Approximate), Expires: 01/22/2026documented as of this encounter Visit Diagnoses Diagnosis Paroxysmal atrial fibrillation (CMS/HCC)- Primary Atrial fibrillation documented in this encounter Care Teams Team MemberRelationshipSpecialtyStart DateEnd Guillermo Heard MD [address] [place] [address] PCP - General12/11/21documented as of this encounter
--- OUTSIDE RECORDS SUMMARY | 2025-01-28 07:43 | XMS_ITS | Encounter Summary ---
Author Organization [facility] Address [address] [address] Care Team Providers Care National Sales Trainer Name Role Phone Guillermo Heard MD Primary Care Provider [phone] Reason for Referral * Imaging (Routine) - Pending ReviewSpecialtyDiagnoses / ProceduresReferred By ContactReferred To Contact Diagnoses Aneurysm of ascending aorta without rupture Procedures CTA Chest W IV Contrast Anjel Corona MD [address] [place] [address] Phone: tel: fax: Referral IDStatusReasonStart DateExpiration DateVisits RequestedVisits [id number] Encounter Details DateTypeDepartmentCare Team (Latest Contact Info)Eyuavpouymx11/15/2025Orders Only [facility] at [facility] [address] [place] [address] Maggie Viera MA Aneurysm of ascending aorta without rupture (Primary Dx) Social History Tobacco UseTypesPacks/DayYears UsedDateSmoking Tobacco: FormerCigarettes Smokeless Tobacco: NeverAlcohol UseStandard Drinks/WeekCommentsYes0 (1 standard drink = 0.6 oz pure alcohol)OCCASIONALUT Safety & EnvironmentAnswerDate Recorded Fear of Current or Ex-PartnerNot on file06/01/2023Emotionally AbusedNot on file 4Physically AbusedNot on file06/01/2023Sexually AbusedNot on file 4Physically or Sexually AbusedNot on file06/01/2023Sex and Gender InformationValueDate RecordedSex Assigned at NxvzxEzln29/10/2025 11:07 AM EDT Legal UkuTzaw5610/07/2021 12:40 AM EDTGender FbsmkkfgGhxn31/10/2025 11:07 AM EDT Sexual OrientationHeterosexual or Sscjvbia42/10/2025 11:07 AM EDTdocumented as of this encounter Functional Status * BPAnswerDate of GqtclvebloRfaozb616/8401/22/2025 9:38 AM EDMichelle Mcclure MA * PulseAnswerDate of IfutftuaskMzsdbl7374/15/2025 9:38 AM Michelle King MA * Patient PositionAnswerDate of QubwrtfolyTyjnzyHkjsqgt95/15/2025 9:38 AM EDT Michelle Pruitt MA * BPAnswerDate of UynonzjokpCseirp965/8401/22/2025 9:38 AM Michelle King MA * PulseAnswerDate of KupupniuicMvdpnl8655/15/2025 9:38 AM Michelle King MA * BP LocationAnswerDate of AssessmentAuthorRight arm01/22/2025 9:38 AM EDT Michelle Pruitt MA * Patient PositionAnswerDate of QfzpdapwyaFqcguzPrqiyft97/15/2025 9:38 AM EDT Michelle Pruitt MA documented as of this encounter Plan of Treatment NameTypePriorityAssociated DiagnosesOrder ScheduleCTA Chest W IV ContrastImaging Routine Aneurysm of ascending aorta without rupture Expected: 01/22/2025, Expires: 01/22/2026documented as of this encounter Visit Diagnoses Diagnosis Aneurysm of ascending aorta without rupture- Primary documented in this encounter Care Teams Team MemberRelationshipSpecialtyStart DateEnd Date Guillermo Heard MD [address] [facility] [address] [address] PCP - General12/11/21documented as of this encounter
--- OUTSIDE RECORDS SUMMARY | 2025-01-28 07:43 | XMS_ITS | CCD ---
Author Organization [facility] CliniSymi Care Team Providers Care Director Hris Name Role Phone MAMTA STEPHENSON Attending Unavailable SELF, REFERRED Primary Care Unavailable SELF, REFERRED Referring Unavailable MAMTA STEPHENSON Admitting Unavailable Guillermo Chance Primary Care Physician Guillermo Chance MD Primary Care Provider [phone] NILL ., DR CURRY Admitting Unavailable [...] Alcantara Attending Unavailabl e SUGAR, DR ISIDRO lAcantara Consulting Unavailabl e ROBSON ., DR AWAN Primary Care Unavailable PATRICIO ANTON Consulting Unavailable NILL Marlene, DR CURRY Admitting Unavailable NILL ., DR CURRY Attending Unavailable NILL ., DR CURRY Consulting Unavailable ROBSON ., DR AWAN Primary Care Unavailable SAIMA WEI Attending UnavailGuillermo Martini Referring Unavailable SAIMA WEI Admitting Unavailab SAIMA Fagan Attending UnavailGuillermo Martini MD Primary Care Provider [phone] Quinton WILLIAMSON Attending Unavailable GUILLERMO CHANCE Referring Unavailable GUILLERMO CHANCE Primary Care Unavailable ALGHOTHANI, MOHAMAOlga Admitting Unavailable ALGHOTHANI, MOHAMAD Attending Unavailable MAMTA STEPHENSON Attending Unavailable ALGHOTHANI, MOHUSHA Attending Unavailable JASWINDER BUCKNER Attending Unavailable ALGHOTHANI, MOHAMAD Referring Unavailable ALGHOTHANI, MOHAMAD Referring Unavailable Allergies Allergy ClassificationReported Allergen(s)Allergy TypeDate of OnsetReaction(s) Facility (1 source)No Known Medication Allergies; Translations: [No Known Medication Allergies]Propensity to adverse reactions (disorder)[facility] Repository Medications Current Medications MedicationDrug Class(es)DatesSig (Normalized)Sig (Original)apixaban 5 mg oral tablet (3 sources)Factor Xa InhibitorStart: 75-61-5544arzs 1 tablet by mouth twice dailyEliquis 5 mg oral tablet 5 mg = 1 tab(s), Oral, BID, Refills(s) 0 Start Date: 03/04/22 Status: Orderedaspirin 81 mg delayed release oral tablet (3 sources)Platelet Aggregation Inhibitor, Nonsteroidal Anti-inflammatory Drug Start: 44-87-7882bmwz 1 tablet by mouth once dailyaspirin 81 mg Oral EC Tab 81 mg = 1 tab(s), Oral, Daily, Refills(s) 0 Start Date: 03/08/22 Status: Ordered ciprofloxacin 500 mg oral tablet (2 sources)Quinolone AntimicrobialStart: 96-20-2844Xhuzx 500 mg Tab See Instructions, 1 tab po night prior to cysto. 1 tab po following cysto., # 2 tab (s), Refills(s) 0, Pharmacy: [id number], 173, cm, 06/10/24 12:48:00 EST, Height/Length Dosing, 100, kg, 06/10/24 12:48:00 EST, Weight Dosing Start Date: 06/10/24 Status: Ordereddiclofenac sodium 75 mg delayed release oral tablet (1 source)Nonsteroidal Anti-inflammatory DrugStart: 58-41-1213yvhg 1 tablet by mouth twice dailydiclofenac sodium 75 mg Oral EC Tab 75 mg = 1 tab(s), Oral, BID, Refills(s) 0 Start Date: 03/04/22 Status: Orderedferrous sulfate 325 mg delayed release oral tablet (3 sources)Start: 02-84-6726kltw 1 tablet by mouth twice dailyferrous sulfate 325 mg oral enteric coated tablet 325 mg = 1 tab(s), Oral, BID, Refills(s) 0 Start Date: 03/04/22 Status: Orderedfurosemide 20 mg oral tablet (2 sources)Loop DiureticStart: 15-36-3317ollo 1 tablet by mouth once dailyLasix 20 mg Tab 20 mg = 1 tab(s), Oral, Daily Start Date: 06/10/24 Status: Ordered lansoprazole 30 mg delayed release oral capsule (1 source)Proton Pump InhibitorStart: 78-27-5231gtof 1 capsule by mouth once dailylansoprazole 30 mg Cap-DR 30 mg = 1 cap(s), Oral, Daily, Refills(s) 0 Start Date: 03/29/22 Status: Orderedlisinopril 10 mg oral tablet (1 source)Angiotensin Converting Enzyme InhibitorStart: 11-12-4525mgut 1 tablet by mouth once dailylisinopril 10 mg Tab 10 mg = 1 tab(s), Oral, Daily, Refills(s) 0 Start Date: 03/04/22 Status: Orderedmeclizine hydrochloride 25 mg oral tablet (2 sources)AntiemeticStart: 70-47-2276zpfn 1 tablet by mouth once dailymeclizine 25 mg Tab 25 mg = 1 tab(s), Oral, Daily Start Date: 06/10/24 Status: Ordered metoprolol tartrate 75 mg oral tablet (3 sources)beta-Adrenergic BlockerStart: 86-65-5854vsrq 1 tablet by mouth twice dailymetoprolol tartrate 75 mg oral tablet 75 mg = 1 tab(s), Oral, BID, Refills(s) 0 Start Date: 03/04/22 Status: OrderedMultivitamin capsule (6 sources)take 1 capsule by mouth once dailyMultivitamin capsule Take 1 capsule by mouth once daily. Activetake 1 capsule by mouth once dailyMultivitamin capsule Take 1 capsule by mouth once daily. 0 ActiveComment on above:Take 1 capsule by mouth once daily.Multivitamins and Minerals (3 sources)Start: 00-47-6336Vrnacdihvvbrm and Minerals See Instructions, Refill(s) 0 Start Date: 10/02/18 Status: Orderedrosuvastatin calcium 20 mg oral tablet (3 sources)HMG-CoA Reductase InhibitorStart: 34-64-4752tzny 1 tablet by mouth once dailyrosuvastatin 20 mg Tab 20 mg = 1 tab(s), Oral, Daily, Refills(s) 0 Start Date: 03/08/22 Status: Orderedsucralfate 1000 mg oral tablet (1 source)Aluminum ComplexStart: 89-55-3410okeo 1 tablet by mouth four times dailyCarafate 1 gram Tab 1 gm = 1 tab(s), Oral, QID, # 120 tab(s), Refills(s) 3, Pharmacy: [id number], 177.8, cm, 03/08/22 15:41:00 EST, Height/Length Dosing, 91, kg, 03/08/22 15:41:00 EST, Weight Dosing Start Date: 03/08/22 Status: Ordered Completed/Discontinued Medications MedicationDrug Class(es)DatesSig (Normalized)Sig (Original)Acetaminophen (5 sources) End: 49-33-2175CSGBPGMAJOPGM (TYLENOL EXTRA STRENGTH ORAL) Take by mouth. 06/18/2024 DiscontinuedACETAMINOPHEN (TYLENOL EXTRA STRENGTH ORAL) Take by mouth. 0 ActiveComment on above:Take by mouth.celecoxib 200 mg oral capsule (5 sources)Nonsteroidal Anti-inflammatory DrugStart: 06-19-2018 End: 66-20-3646ktjvcbcdb (CELEBREX) 200 mg capsule twice daily. 06/19/2018 06/18/2024 DiscontinuedComment on above:twice daily. ibuprofen 200 mg oral tablet (5 sources)Nonsteroidal Anti-inflammatory Drug End: 68-16-4424gcwa 1 tablet by mouth every six hours as neededibuprofen (MOTRIN) 200 mg tablet Take 200 mg by mouth every 6 hours as needed. 06/18/2024 DiscontinuedComment on above:Take 200 mg by mouth every 6 hours as needed. tamsulosin hydrochloride 0.4 mg oral capsule (5 sources)alpha-Adrenergic BlockerStart: 06-27-2018 End: 11-07-2420ebdk 1 capsule by mouth once daily at bedtimetamsulosin ER (FLOMAX) 0.4 mg cap Take 1 capsule by mouth daily at bedtime. 30 capsule 11 06/27/2018 06/18/2024 DiscontinuedComment on above:Take 1 capsule by mouth daily at bedtime.TURMERIC, BULK, MISC (5 sources) End: 02-64-0006KAWCPUDV, BULK, MISC 06/18/2024 DiscontinuedTURMERIC, BULK, MISC valACYclovir 1000 mg oral tablet (5 sources)Herpesvirus Nucleoside Analog DNA Polymerase Inhibitor, Herpes Simplex Virus Nucleoside Analog DNA Polymerase Inhibitor, Herpes Zoster Virus Nucleoside Analog DNA Polymerase InhibitorStart: 06-09-2018 End: 58-20-4507ulpSAGpodeio (VALTREX) 1 gram tab 06/09/2018 06/18/2024 Discontinued Problems Active Problems Problem ClassificationProblemDateDocumented DateEpisodic/ChronicAbdominal hernia (3 sources)Umbilical -95-8321MfddkvcjMbnkwt; peripheral; and visceral artery aneurysms (7 sources)Aneurysm of thoracic aorta; Translations: [Thoracic aortic aneurysm, without rupture]Onset: 512300-77-7529UnowusaYtqaamsq of urinary tract (3 sources)Kidney stone; Translations: [Calculus of kidney]Onset: 06-10-2024 63-16-2036FlemqniaToizcc of prostate (3 sources)Malignant tumor of prostate; Translations: [Malignant neoplasm of prostate]ChronicCancer of prostate (17 sources)History of malignant neoplasm of prostate; Translations: [Personal history of malignant neoplasm ofprostate]Onset: 581555-87-4901Pbypfvrt Cardiac dysrhythmias (6 sources)Atrial fibrillation; Translations: [Unspecified atrial fibrillation] Onset: 641435-46-4154DthgtbdCecplfjd (3 sources)Nvxkonnh98-06-9125NlcmjdyTycbddyz atherosclerosis and other heart disease (7 sources)Coronary arteriosclerosis; Translations: [Atherosclerotic heart disease of [place] coronary artery without angina pectoris]Onset: 12-24-2021 48-91-8310FbqaasgHkconfovyo and other anemia (3 sources)Uycyeg54-15-8635NmcaprppBqthdjvycj and other anemia (3 sources)Iron deficiency viurbl96-34-3341HcwvphvlAxvjlwapx of lipid metabolism (2 sources)Hyperlipidemia, unspecified; Translations: [Hyperlipidemia, unspecified]Onset: 20-55-0453NrrporkUuuksfnocnzkgq and diverticulitis (5 sources)Diverticula of intestine; Translations: [Diverticulosis of intestine, part unspecified, without perforation or abscess without bleeding]Onset: 75-86-2482GlhecwyKvauekehi hypertension (7 sources)Hypertensive disorder; Translations: [Essential (primary) hypertension]Onset: 765603-63-2026LtxdaykRcrdkpkml and duodenitis (1 source)Unspecified chronic gastritis without bleeding; Translations: [UNS CHRONIC GASTRITIS W/O BLEEDING]Onset: 53-61-9946HlpbzzcZrdubofrn and duodenitis (7 sources)Gastritis; Translations: [Other gastritis without bleeding]Onset: 28-13-9119CvossntlBgrzbprrfoxuaiuw hemorrhage (10 sources)Melena; Translations: [Rectal hemorrhage]Onset: EpisodicGenitourinary symptoms and ill-defined conditions (1 source)Blood in urine; Translations: [Gross hematuria]Onset: 06-10-2024 EpisodicGout and other crystal arthropathies (3 sources)Rcjg60-35-6155YtydiysOkhsnssqkuu of prostate (3 sources)Benign prostatic mkyfpgiujgw27-31-4395AcancezHhydosktyohfg and screening for infectious disease (3 sources)Raised Helicobacter pylori zsayszvx47-76-8885KeurcupoSczrpdxfnxw deficiencies (1 source)Vitamin D deficiency, unspecified; Translations: [VITAMIN D DEFICIENCY UNSPECIFIED]Onset: 54-41-6707SbjnsuiAgkpkaxoajolgi (1 source)Unspecified osteoarthritis, unspecified site; Translations: [UNSPECIFIED OSTEOARTHRITIS UNS SITE]Onset: 81-35-2900ZzgmgjhJrjaf aftercare (3 sources)Long-term current use of daqwlzlxoadyw77-38-7638CzspidxuMjiyk diseases of kidney and ureters (2 sources)Cyst of -71-2760VebntrfjBrkwi diseases of kidney and ureters (1 source)Acquired renal cyst without neoplastic change; Translations: [Cyst of kidney, acquired]Onset: 96-33-3505IpzwrbmnMmhud disorders of stomach and duodenum (3 sources)Nlukzqjopef60-65-9810LefewnswFjwvp gastrointestinal disorders (3 sources)Alteration in bowel unbowkxiqwf64-17-0143OlngmjozUdeka gastrointestinal disorders (3 sources)Occult blood in inrnqg23-78-3727ExclrsyeDqtpp nervous system disorders (3 sources)H/O: retinal zuwnoyxsnu29-45-7434YvgdtewqVvwlc nervous system disorders (3 sources)Hbsthsgwapz00-72-5431XkxbixhvZiaen nutritional; endocrine; and metabolic disorders (3 sources)Overweight in adulthood with body mass index of 25 or more but less than 4422-33-4801VwghxjavKowek nutritional; endocrine; and metabolic disorders (3 sources)Unintentional weight xcnw60-00-0180UxwsgmxlSylyxqdq codes; unclassified (3 sources)Sleep hgtka36-01-6734RziirzbXmvpeoay codes; unclassified (1 source)Sleep apnea, unspecified; Translations: [SLEEP APNEA UNSPECIFIED] Onset: 31-17-7191IzgdbrgMvbvkea detachments; defects; vascular occlusion; and retinopathy (3 sources)Epiretinal cyyohehn87-15-6352TrhxfapXacgegspl-qbemqfw disorders (4 sources)Smoker; Translations: [Nicotine dependence, cigarettes, uncomplicated]Onset: 255510-87-0332NanqqraBimjghlilysy (1 source)CONTACT W/AND (SUSP) EXPOS COVID-19; Translations: [CONTACT W/AND (SUSP) EXPOS COVID-19]Onset: 72-02-9832Cskmhrnucuxq (1 source)PERSONAL HISTORY OF COVID-19; Translations: [PERSONAL HISTORY OF COVID-19]Onset: 45-19-3645Bayuogmjwfqw (1 source)Aneurysm of the ascending aorta, without rupture; Translations: [Aneurysm of the ascending aorta, without rupture]Onset: 12-11-2021 Past or Other Problems Problem ClassificationProblemDateDocumented DateEpisodic/ChronicDeficiency and other anemia (4 sources)Iron deficiency anemia, unspecified; Translations: [IRON DEFICIENCY ANEMIA UNSPECIFIED]Onset: 36-55-9962GktqxcekHfmakqoldj and other anemia (1 source)Anemia, unspecified; Translations: [ANEMIA UNSPECIFIED]Onset: 81-00-8371XbmvguwpYhixhrht mellitus without complication (1 source)Other abnormal glucose; Translations: [OTHER ABNORMAL GLUCOSE]Onset: 95-57-7097ClraunqwDvajv and electrolyte disorders (1 source)Volume depletion, unspecified; Translations: [VOLUME DEPLETION UNSPECIFIED]Onset: 89-23-1833FlotevykAvngisb and fatigue (4 sources)Other fatigue; Translations: [OTHER FATIGUE]Onset: 21-17-8816Vhfxdzuj Nonspecific chest pain (5 sources)Chest pain, unspecified; Translations: [Other chest pain]Onset: 62-87-3869PvxfiivlYswvl aftercare (6 sources)Radiotherapy follow-up; Translations: [Encounter for follow-up examination after completed treatment for conditions other than malignant neoplasm]Onset: 036836-56-7699FsviwycaTkqng aftercare (1 source)long term care administrator (current) use of anticoagulants; Translations: [RUBBER PROCESS HAND CURRNT USE ANTICOAGULANTS]Onset: 32-50-3421UmykxypcQbxfu aftercare (1 source)intermediate (current) use of aspirin; Translations: [SNF CURRENT USE OF ASPIRIN]Onset: 44-63-9605AbhsiuadOttxs aftercare (1 source)Other computer terminal operator (current) drug therapy; Translations: [OTH SNF CURRENT DRUG THERAPY]Onset: 70-84-5217VtgumcvfJxpix circulatory disease (1 source)Hypotension, unspecified; Translations: [HYPOTENSION UNSPECIFIED] Onset: 55-51-7245IefyxtrvUgyrp diseases of kidney and ureters (1 source)Disorder of kidney and ureter, unspecified; Translations: [DISORDER KIDNEY AND URETER UNS]Onset: 61-72-3143BonqjfdsFzyey gastrointestinal disorders (1 source)Diarrhea, unspecified; Translations: [DIARRHEA UNSPECIFIED]Onset: 79-85-7984CchalwsaZllyi lower respiratory disease (1 source)Acute respiratory distress; Translations: [ACUTE RESPIRATORY DISTRESS] Onset: 71-63-6385YrrmhgejSojzy lower respiratory disease (1 source)Personal history of pneumonia (recurrent); Translations: [PERSONAL HX OF PNEUMONIA RECURRENT]Onset: 47-64-7733KucfttjkFnzod lower respiratory disease (2 sources)Other forms of dyspnea; Translations: [Other forms of dyspnea]Onset: 42-56-8528SfbqixvaCwbvh nutritional; endocrine; and metabolic disorders (4 sources)Abnormal weight loss; Translations: [ABNORMAL WEIGHT LOSS]Onset: 22-98-9737XaybdxuhLlnpc screening for suspected conditions (not mental disorders or infectious disease) (4 sources)Encounter for screening for malignant neoplasm of rectum; Translations: [Other specified abnormal findings of blood chemistry]Onset: 03-56-9184MvejsqyeAvntcdhfi and history of mental health and substance abuse codes (1 source)Personal history of nicotine dependence; Translations: [PERSONAL HISTORY OF NICOTINE DEPEND]Onset: 38-03-9858BbepgldfKlfurhljebka (1 source)Aneurysm of the ascending aorta, without rupture; Translations: [Aneurysm of the ascending aorta, without rupture]Onset: 01-22-2025 Results Test NameValueInterpretationReference RangeFacilityOffice Visiton 01-22-2025 Follow-up [id number] Pablo Beckman 1955 M Date Provider Department Center 01/22/2025 245-JASWINDER BUCKNER [facility] Family History Problem Relation Age of Onset Stroke Mother Parkinsonism Father Family Status - Relation Status Age at Mother Father Sister Alive Level of Service:28714 SC OFFICE/OUTPATIENT ESTABLISHED LOW MDM 20 MIN Reason for Visit and Comments: Follow-up [418305] - Patient is here today for a 6 month follow up appointment. Patient denies chest pain, leg swelling, racing heart/palpitations.Complains of SOB/ANDERSON, bleeding/bruising/discoloration, fatigue if he over works himself. Aneurysm of ascending aorta [Other] Hypertension [253671] Left ventricular systolic dysfunction [Other] Atrial Fibrillation [80] NSVT [Other] Coronary Artery Disease [187] Hyperlipidemia [182]NormalOur Lady of Mercy Hospital - Anderson36on 33-55-642783Pb can take 2 tablets in the AM instead, follow-up BMP in 1-2 weeks. [facility]36on 94-70-497298Eafm, higher than goal of <130/90. We will see how his BP responds to increase in lasix. Follow-up BP check in 2 weeks please and thank you![place] [address]on 33-83-702440Br can do that instead, follow-up BMP in 1-2 weeks after the increase. ThanksMercy Health Tiffin Hospital Follow-Upon 93-05-0089Czfsqb-[id number] Pablo Beckman 1955 M Date Provider Department Center 07/18/2024 MAMTA EGAN Family History Problem Relation Age of Onset Stroke Mother Parkinsonism Father Family Status - Relation Status Age at Mother Father Sister Alive Level of Service:65755 SC OFFICE/OUTPATIENT ESTABLISHED MOD MDM 30 MIN Reason for Visit and Comments: Coronary Artery Disease [187] Hypertension [167490] Hyperlipidemia [182][facility]iff[facility] HospitalTelephoneon [id number] Pablo Beckman 1955 M Date Provider Department Center 07/18/2024 HEBER SIDDIQUI Family History Problem Relation Age of Onset Stroke Mother Parkinsonism Father Family Status - Relation Status Age at Mother Father Sister AliveNoalUniPremier Health Miami Valley HospitalCNPNon 20-25-1444ZHKU Telephone (SUDHAKARA) PABLO BECKMAN ([id number]) 1955 M Date Time Provider Department 06/20/24 Quinton WILLIAMSON During your visit today, we recorded the following information about you: Josefina Ring RN 06/20/2024 9:58 AM Signed Message Received: 2 days ago Quinton Williamson MD P Radt [facility] Rad Nurse Froilan; Josefina Mulligan One year with psa Bel Harrison 06/20/2024 11:07 AM Signed Appointment scheduled in 1 year, will need to fax PSA order to [place] when available. Josefina Ring RN 06/20/2024 11:16 AM Signed GAYLE- please sign order. Josefina Ring, Kitty Garvey 06/24/2024 12:59 PM Signed Pablo is scheduled for his 1 year follow up on 06/18/24 at 4:30. His lab order has been faxed to [facility]. Kitty Valle PSS Allergies As of Date: 06/20/2024 (No Known Allergies) Date Reviewed: 06/24/2020 Reviewed by: Felecia Benites (Christopher)CHRISTOPHER - Fully Assessed Reason for Visit: Future Appointment [256] Primary Visit Diagnosis:Personal history of prostate cancer [Z85.46] Order(s):PROSTATE-SPECIFIC ANTIGEN DIAGNOSTIC [SQPSA] Order #: [id number] FUTURE Prescriptions as of 06/24/2024 - Multivitamin capsule Take 1 capsule by mouth once daily. Problem List As Of Date 06/20/2024 Noted Resolved Personal history of prostate cancer [Z85.46] 10/31/2013 Radiotherapy follow-up [Z09] 06/10/2014 Encounter Status:Closed by JOSEFINA RING on 06/24/24[facility] 66-76-1453TUMO Attestation signed by Alexi Medina MD at 06/30/2024 8:33 PM Agree with fellow's note as documented. Alexi Medina MD [place] Cardiology Patient: Pablo Beckman Procedure Information Date/Time: 06/19/24 1030 Procedure: Coronary angiography (Bilateral) Location: [facility] / [facility] (Cath) Providers: Alexi Medina MD Clinical information reviewed: [facility] Physical Exam Airway Mallampati: III Neck ROM: full Cardiovascular Rhythm: regular Rate: normal Dental Pulmonary Breath sounds clear to auscultation Abdominal (+) obese Anesthesia Plan ASA 3 other (Moderate Sedation) Anesthetic plan and risks discussed with patient. Use of blood products discussed with patient who consented to blood products. Additional Equipment RequestsNormalUniversity of Lamb Healthcare CenterHPon 78-46-7123MN Attestation signed by Alexi Medina MD at 06/30/2024 6:30 PM Agree with fellow's note as documented above. Alexi Medina MD History Of Present Illness Pablo Beckman [...] past medical history of Aneurysm, Atrial fibrillation ([facility]), Coronary artery disease, Diastolic dysfunction, Hyperlipidemia, Hypertension, Left ventricular systolic dysfunction, and NSVT (nonsustained ventricular tachycardia) ([facility]). Surgical History He has a past surgical [...] Assessment/Plan Abnormal stress test Paroxysmal atrial fibrillation BTQ-pjo-clkmeudxyei [moderate coronary artery disease of OM1 and distal LAD] on cath 2020 Hypertension Aortic aneurysm-stable at 4.2 cm CTA chest -All prior tests have been reviewed. -Patient is scheduled for a coronary angiogram today. -Further recommendations post procedure.[facility] Tiffin HospitalNURSNOTEon 08-67-9391NJUSMAIGGX educated pt on d/c instructions. This included: site care, limited physical [...] wheeled off of unit with all of belongings.[facility] Tiffin HospitalUrine Cytology ([facility])on 71-01-3261Ngbuhtjxods exam Cytology (U) [Interp]Diagnosis InfoInvalid Interpretation [facility] Comment on above:Result Comment: A:Urine,Urine:Voided Interpretation - Adequate cellularity for evaluation. CPT 80352 MicroScopic Description - Adequacy - Gross Description Site ID:A color Bright Yellow fixative Alcohol Specimen designated Urine received in alcohol preservative and labeled with the patient???s name, consists of 110ml clear bright yellow fluid. Electronically signed by : on: 06/13/2024 14:03:40Performed By: #### [id number] #### [facility] [address], [place] [address]TDB (OUTSIDE)on 87-52-3940Pncfldqim ClinicUrine Cytology ([facility])on 76-92-9557NI Method of ExtractionVoidedSamaritan North Health Center Comment on above:Performed By: #### [id number] #### [facility] [address] [place] [id number] Number of Thoe6Awpmois Interpretation CodeProtestant Deaconess HospitalComment on above:Performed By: #### [id number] #### [facility] [address] [place] [address] [id number] SpecimenUrineSamaritan North Health CenterComment on above:Performed By: #### [id number] #### [facility] [address] [place] [address] [id number] Type of ServiceTechnical OnlySamaritan North Health CenterComment on above:Performed By: #### [id number] #### [facility] [address] [place] [address] 65662Gnfnjrh Office/Clinic Noteon 20-98-0008Tpzodgh Office/Clinic NoteUrology Office/Clinic Note Chief Complaint New patient, gross hematuria, renal mass (cyst) HPI Staff 68 year old male new patient referred for gross hematuria. CT AP w/wo con 06/03/24 [facility] (report printed and scanned) - There is bilateral perinephric fibrofatty stranding. The kidneys are within normal limits for size, position and contour. There are punctatebilateral renal calculi. There are no ureteral stones in the field of view. There is still an 11 mmhypodense exophytic nodule at the posterior lower pole of the left kidney. This does not show obvious enhancement for the small size and a cyst is suspected. No other renal mass lesions are identified. No hydronephrosis is noted. Hx of prostate CA, tx'd w radium seeds 10/10/13. Follows with Dr. Williamson annually. PSA 06/13/23 - <0.13 05/08/24 - <0.1 IPSS: 6 SALMA: 0 Denies hematuria, denies dysuria. Denies abdominal pain. Has lower back discomfort right side sincefriday. Sometimes when trying to get up if he the urgency to go, he leaks a little. (getting up outof the chair or a vehicle) Review of [...] hematuria workup to include upper urinary tract imaging(already complete), as well as evaluation of the urinary cells with urine cytology (sent today) and possible a FISH test. A cystoscopy will be scheduled to rule out lower urinary tract pathology. Therationale for this workup has been discussed, and all questions have been answered. Informed consent will be obtained. The risks and benefits for cystoscopy have been discussed. The risks include bleeding, infection, and irritation of the bladder and urinary channel, among others. The patient, after being informed ofprocedural details and after questions have been answered, wishes to proceed. Full informed consenthas been obtained. Will order Local anesthesia. Abx sent. Ordered: ciprofloxacin, See Instructions, 1 tab po night prior to cysto. 1 tab po following cysto., # 2 tab(s), Refills(s) 0, Pharmacy: [id number], 173, cm, 06/10/24 12:48:00 EST, Height/Length Dosing, 100, kg, 06/10/24 12:48:00 EST, Weight Dosing E&M of New Patient Moderate 45-59 Min 36737 Urnls Dip Stick Auto w/o Microscopy POC 01955 2. H/O prostate cancer (Z85.46: Personal history of malignant neoplasm of prostate) Hx of prostate CA, tx'd w radium seeds 10/10/13. Follows with Dr. Williamson annually. PSA 06/13/23 - <0.13 05/08/24 - <0.1 Ordered: E&M of New Patient Moderate 45-59 Min 51291 3. Kidney stones (N20.0: Calculus of kidney) CT 06/03/24 - There are punctate bilateral renal calculi. There are no ureteral stones in the field of view. Ordered: E&M of New Patient Moderate 45-59 Min 39530 4. Renal cyst (N28.1: Cyst of kidney, acquired) Advised pt small cysts do not require monitoring. Follow-up With When Contact Information [facility] [place] [address] Business (1) Additional Instructions: our supervisor show operations will be contacting you for follow-up Patient Education Hematuria, Adult Problem List/Past Medical History Ongoing Anemia Atrial fibrillation Bile reflux gastritis BMI 28.0-28.9,adult BPH (benign prostatic hyperplasia) Cataract Change in bowel habits Coronary arteriosclerosis Diverticulosis Dyspepsia Gout H/O prostate cancer Helicobacter pylori ab+ Helicobacter pylori gastritis History of retinal detachment HTN (hypertension) Hypertensive disorder Iron deficiency anemia Kidney stones intermediate current use of anticoagulant Macular puckering Melena Occult blood positive stool Paresthesia RB (rectal bleeding) Rectal bleeding Renal cyst Sleep apnea (more content not included)...NormalProtestant Deaconess HospitalComment on above: Result Comment: Electronically Signed By: WALLACE WEI PA-C.[email or web address]\Date and Time Signed: 06/10/2512:21 ESTOffice Visiton [id number]-up [id number] Pablo Beckman 1955 M Date Provider Department Center 06/03/2024 3848-ALEXI MEDINA [facility] Family History Problem Relation Age of Onset Stroke Mother Family Status - Relation Status Age at Mother Level of Service:[address] [place] OFFICE/OUTPATIENT ESTABLISHED MOD [facility]ovid-[facility] PCR (CVDTB)on [id number]-CoV-2 (COVID-19) RNA ISIDRO+probe Ql (Unsp spec)Not detectedNormalNOT DETECTEDThe [facility] HospitalComment on above:Result Comment: This test is not yet approved or cleared by the [place] FDA. When there are no FDA-approved or cleared tests available, and other criteria are met, FDA can make tests available under an emergency access mechanism called an Emergency Use Authorization (EUA). The EUA for this test is supported by the [place] of Health and Human Service's (HHS's) declaration [...] of clinical signs and symptoms consistent with SARS-CoV-2.Performed By: #### TSH, T7, LIPA, EMILY, CMP #### [facility] [address] [place] [address] Dr. Emely Frazier AUTO DIFFon [id number] #0.0 103/ulNormal0.0-0.1The [facility] Hospitalment on above:Performed By: #### TSH, T7, LIPA, EMILY, CMP #### [facility] [address] [address] [address] Emely AdrianBasophils/100 WBC (Bld)0.1 %Critically low0.2-2.0The [facility] HospitalComment on above:Performed By: #### TSH, T7, LIPA, EMILY, CMP #### [facility] [address] [place] [address] Dr. Emely HullO #0.2 103/ulNormal0.0-0.7The [facility] HospitalComment on above: Performed By: #### TSH, T7, LIPA, EMILY, CMP #### [facility] [address] [place] [address] Dr. Emely Hullosinophils/100 WBC (Bld)3.2 %Normal0.9-7.0The [facility] Comment on above:Performed By: #### TSH, T7, LIPA, EMILY, CMP #### [facility] [address] [place] [address] Dr. Emely Hullrythrocyte distribution width (RBC) [Ratio]15.8 %Critically high 11.0-15.0The [facility] Hospitalment on above:Performed By: #### TSH, T7, LIPA, EMILY, CMP #### [facility] [address] [place] [address] Dr. Emely AdrianHematocrit (Bld) [Volume fraction]26.6 %Critically low42.0-54.0 The [facility] HospitalComment on above:Performed By: #### TSH, T7, LIPA, EMILY, CMP #### [facility] [address] [place] [address] Dr. Emely AdrianHemoglobin (Bld) [Mass/Vol]9.0 g/dLCritically low14.0-18.0The [facility] HospitalComment on above:Performed By: #### TSH, T7, LIPA, EMILY, CMP #### [facility] [address] [address] [address] Emely Casiano #0.05 10e3/ulCritically high0.00-0.03The [facility] Comment on above:Performed By: #### TSH, T7, LIPA, EMILY, CMP #### [facility] [address] [place] [address] Dr. Emely Casiano %0.7 %Critically high0.0-0.5The [facility] HospitalComment on above:Performed By: #### TSH, T7, LIPA, EMILY, CMP #### [facility] [address] [place] [address] Dr. Emely Petit #1.8 103/ulNormal1.2-3.8The [facility] HospitalComment on above:Performed By: #### TSH, T7, LIPA, EMILY, CMP #### [facility] [address] [place] [address] Dr. Emely Canashocytes/100 WBC (Bld)24.2 %Mvvazl34.5-60.0The [facility] HospitalComment on above:Performed By: #### TSH, T7, LIPA, EMILY, CMP #### [facility] [address] [place] [address] Dr. Emely MichelleUAL DIFF REQNONormalThe [facility] HospitalComment on above: Performed By: #### TSH, T7, LIPA, EMILY, CMP #### [facility] [address] [place] [address] Dr. Emely Constantino (RBC) [Entitic mass]32.7 ngEprtjb44.9-34.0The [facility] HospitalComment on above:Performed By: #### TSH, T7, LIPA, EMILY, CMP #### [facility] [address] [place] [address] Dr. Emely Constantino (RBC) [Mass/Vol]33.8 g/qZKlzvwg60.9-35.2The [facility] HospitalComment on above:Performed By: #### TSH, T7, LIPA, EMILY, CMP #### [facility] [address] [place] [address] Dr. Emely Smith (RBC) [Entitic vol]96.7 fLCritically high80.0-94.0The [facility] HospitalComment on above:Performed By: #### TSH, T7, LIPA, EMILY, CMP #### [facility] [address] [place] [address] Dr. Emely Zamarripa #1.3 103/ulCritically high0.3-0.8The [facility] Comment on above:Performed By: #### TSH, T7, LIPA, EMILY, CMP #### [facility] [address] [place] [address] Dr. Emely Ellisocytes/100 WBC (Bld)18.0 %Critically high1.7-12.0The [facility] HospitalComment on above:Performed By: #### TSH, T7, LIPA, EMILY, CMP #### [facility] [address] [place] [address] Dr. Emely Del Real #4.0 103/ulNormal1.4-6.5The [facility] HospitalComment on above:Performed By: #### TSH, T7, LIPA, EMILY, CMP #### [facility] [address] [place] [address] Dr. Emely Maddenutrophils/100 WBC (Bld)53.8 %[place]86.0-75.0The [facility] HospitalComment on above:Performed By: #### TSH, T7, LIPA, EMILY, CMP #### [facility] [address] [place] [address] Dr. Emely Weller mean volume (Bld) [Entitic vol]8.7 fLCritically low 9.5-13.5The [facility] HospitalComment on above:Performed By: #### TSH, T7, LIPA, EMILY, CMP #### [facility] [address] [place] [address] Dr. Emely AdrianPLT320 103/fqBwqvlh760-448Zra [facility] HospitalComment on above: Performed By: #### TSH, T7, LIPA, EMILY, CMP #### [facility] [address] [place] [address] Dr. Emely AdrianRBC2.75 106/ulCritically low4.70-6.10The [facility] on above:Performed By: #### TSH, T7, LIPA, EMILY, CMP #### [facility] [address] [place] [address] Dr. Emely AdrianWBC7.5 103/ulNormal4.0-11.0The [facility] HospitalComment on above: Performed By: #### TSH, T7, LIPA, EMILY, CMP #### [facility] [address] [place] [address] Dr. Emely AdrianLACTATE/LACTIC ACIDon 28-07-5211Tnkercn [Moles/Vol]0.7 mmol/L Normal0.4-1.9The [facility] Hospitalment on above:Performed By: #### TSH, T7, LIPA, EMILY, CMP #### [facility] [address] [place] [address] Dr. Emely AdrianLIPASEon 04-68-2098Fodhnt [Catalytic activity/Vol]386.0 U/LNormal 73.0-393.0The [facility] Hospitalment on above:Performed By: #### CBC #### [facility] [address] [place] [address] Dr. Emely AdrianPROF 14(COMP METB)on 49-30-4362Sjmcffs [Mass/Vol]2.9 g/dL Critically low3.4-5.0The [facility] HospitalComment on above:Performed By: #### CMP #### [facility] [address] [place] [address] Dr. Emely AdrianAlbumin/Globulin [Mass ratio]0.7 {ratio}NormalThe [facility] Hospitalment on above:Performed By: #### CMP #### [facility] [address] [place] [address] Dr. Emely AdrianALP [Catalytic activity/Vol]43 U/LCritically rxi56-934Wtj [facility] HospitalComment on above:Performed By: #### CMP #### [facility] [address] [address] [address] Emely MorenoT [Catalytic activity/Vol]23 U/IAfjvet48-69Nkg [facility] HospitalComment on above:Performed By: #### CMP #### [facility] [address] [address] [address] Emely Barreraon gap [Moles/Vol]13.4 mmol/LNormalThe [facility] Comment on above:Performed By: #### CMP #### [facility] [address] [address] [address] Emely AdrianAST [Catalytic activity/Vol]21 U/DPnnmyz52-59Luo [facility] HospitalComment on above:Performed By: #### CMP #### [facility] [address] [address] [address] Emely AdrianBilirubin [Mass/Vol]0.4 mg/dLNormal0.2-1.0The [facility] Comment on above:Performed By: #### CMP #### [facility] [address] [address] [address] Emely AdrianCalcium [Mass/Vol]8.3 mg/dLCritically low8.5-10.1The [facility] HospitalComment on above:Performed By: #### CMP #### [facility] [address] [address] [address] Emely AdrianChloride [Moles/Vol]104 mmol/EBltyrv99-140Xfn [facility] Comment on above:Performed By: #### CMP #### [facility] [address] [address] [address] Emely AdrianCO2 [Moles/Vol]22.9 mmol/XQonqve82.0-32.0The [facility] Comment on above:Performed By: #### CMP #### [facility] [address] [address] [address] Emely AdrianCreatinine [Mass/Vol]1.80 mg/dLCritically high0.70-1.30The [facility] HospitalComment on above:Performed By: #### CMP #### [facility] [address] [address] [address] Emely HullGFR-AF AYDVFDFU67 mL/min/1.56i7Sidjxnztue low>=60The [facility] HospitalComment on above:Performed By: #### CMP #### [facility] [address] [address] [address] Emely HullGFR-NON AF RTQSNVQN81 mL/min/1.37f5Qdwqpggypt low>=60The [facility] HospitalComment on above:Performed By: #### CMP #### [facility] [address] [address] [address] Emely AdrianGlobulin (S) [Mass/Vol]4.3 g/dLNormalThe [facility] HospitalComment on above:Performed By: #### CMP #### [facility] [address] [address] [address] Emely AdrianGlucose [Mass/Vol]105 mg/qYUxtewm54-506HaeWhite Hospital Comment on above:Performed By: #### CMP #### [facility] [address] [address] [address] Emely AdrianPotassium [Moles/Vol]4.3 mmol/LNormal3.5-5.1The [facility] Comment on above:Performed By: #### CMP #### [facility] [address] [address] [address] Emely AdrianProtein [Mass/Vol]7.2 g/dLNormal6.4-8.2The [facility] Comment on above:Performed By: #### CMP #### [facility] [address] [address] [address] Emely AdrianSodium [Moles/Vol]136 mmol/ACrvmcr647-713Rll [facility] Comment on above:Performed By: #### CMP #### [facility] [address] [address] [address] Emely AdrianUrea nitrogen [Mass/Vol]35.0 mg/dLCritically high7.0-18.0The [facility] on above:Performed By: #### CMP #### [facility] [address] [place] [address] Dr. Emely Buckley nitrogen/Creatinine [Mass ratio]19.4 mg/mgNoParkview Health Bryan Hospital on above:Performed By: #### CMP #### [facility] [address] [place] [address] Dr. Emely AdrianPROTIMEon 94-40-6921AME Coag (PPP) [Relative time]1.12 {INR} NormalThe [facility] on above:Performed By: #### PTT, PT #### [facility] [address] [place] [address] Dr. Emely Garcia GUIDELINESSEE BELOWMemorial Health SystemComsheridan community hospital on above:Result Comment: DESIRED INR: 2.0 - 3.0 CONDITIONS NOT LISTED BELOW 2.5 - 3.5 FOR PROSTHETIC HEART VALVE REPLACEMENT 2.5 - 3.5 RECURRENT THROMBOSIS Performed By: #### PTT, PT #### [facility] [address] [place] [address] Dr. Emely AdrianPT Coag (PPP) [Time]12.0 sCritically high9.0-11.6The [facility] on above:Performed By: #### PTT, PT #### [facility] [address] [place] [address] Dr. Emely TylerTon 70-73-6405iQKH Coag (Bld) [Time]32.1 cCuncse54.3-36.2The [facility] on above:Performed By: #### PTT, PT #### [facility] [address] [place] [address] Dr. Emely Pulido, HIGH SENSITIVITYon 77-04-6930KOBRAW99.0 pg/mLNormal 4.0-76.1The [facility] on above:Result Comment: CUT-OFF POINTS HAVE BEEN ESTABLISHED BASED ON THE FOURTH UNIVERSAL DEFINITIONS OF MYOCARDIAL INFARCTION. THE UPPER REFERENCE LIMIT (URL) OF TROPONIN, DEFINED THE 99TH PERCENTILE OF cTnI DISTRIBUTION IN A REFERENCE POPULATION, HAS BEEN CONFIRMED THE DECISION THRESHOLD FOR PR DIAGNOSIS.Performed By: #### TSH, T7, LIPA, EMILY, CMP #### [facility] [address] [address] [address] Emely AdrianTYPE AND SCREENon 94-43-4045EYRV AND SCREENNegativeNoSamaritan North Health CenterComment on above:Performed By: #### TSH, T7, LIPA, EMILY, CMP #### [facility] [address] [address] [address] Emely AdrianXR CHEST 1 Von [id number] CHEST 1 VEXAM: Portable chest REASON FOR EXAM: Shortness of breath. TECHNIQUE: A portable frontal view of the chest was obtained. COMPARISON: 10/27/2021. FINDINGS: The lungs are well-inflated and clear. The heart and mediastinum are normal. There is no mass or pathologic adenopathy. Osseous structures are normal. IMPRESSION: No acute cardiopulmonary process. Electronically authenticated by: PATRICIO ANTON Date: 2022-03-09 10:17NoSamaritan North Health CenterCA 19-9on [id number] 19-94 U/mLNormal0-35White HospitalComment on above:Result Comment: [employer] Electrochemiluminescence Immunoassay (ECLIA) . Values obtained with different assay methods or kits cannot be used interchangeably. Results cannot be interpreted as absolute evidence of the presence or absence of malignant disease.Performed By: #### TSH, T7, LIPA, EMILY, CMP #### [facility] [address] [address] [address] Emely Flores 83-03-1311WGA8.9 ng/mLNormal0.0-4.7The [facility] Comment on above:Result Comment: Nonsmokers <3.9 Smokers <5.6 . [employer] Electrochemiluminescence Immunoassay (ECLIA) . Values obtained with different assay methods or kits cannot be used interchangeably. Results cannot be interpreted as absolute evidence of the presence or absence of malignant disease.Performed By: #### TSH, T7, LIPA, EMILY, CMP #### [facility] [address] [address] [address] Emely AdrianH PYLORI ANTIBODY IGGon 02-26-2022H. PYLORI IGG ABS1.19 Index ValueCritically high0.00-0.79The [facility] HospitalComment on above:Result Comment: Negative <0.80 Equivocal 0.80 - 0.89 Positive >0.89Performed By: #### CBC #### [facility] [address] [place] [address] Dr. Emely AdrianAMYLASEon 42-68-5114Bsgujux [Catalytic activity/Vol]118 U/L Critically nnsw76-426Xql [facility] HospitalComment on above:Performed By: #### TSH, T7, LIPA, EMILY, CMP #### [facility] [address] [place] [address] Dr. Emely Frazier AUTO DIFFon 10-77-2040KPHM #0.0 103/ulNormal0.0-0.1The [facility] HospitalComment on above:Performed By: #### TSH, T7, LIPA, EMILY, CMP #### [facility] [address] [place] [address] Dr. Emely AdrianBasophils/100 WBC (Bld)0.2 %Normal0.2-2.0[facility] Comment on above:Performed By: #### TSH, T7, LIPA, EMILY, CMP #### [facility] [address] [place] [address] Dr. Emely Espinoza #0.1 103/ulNormal0.0-0.7The [facility] HospitalComment on above: Performed By: #### TSH, T7, LIPA, EMILY, CMP #### [facility] [address] [place] [address] Dr. Emely Hullosinophils/100 WBC (Bld)2.8 %Normal0.9-7.0The [facility] Comment on above:Performed By: #### TSH, T7, LIPA, EMILY, CMP #### [facility] [address] [place] [address] Dr. Emely Hullrythrocyte distribution width (RBC) [Ratio]15.6 %Critically high 11.0-15.0The [facility] HospitalComment on above:Performed By: #### TSH, T7, LIPA, EMILY, CMP #### [facility] [address] [place] [address] Dr. Emely AdrianHematocrit (Bld) [Volume fraction]28.9 %Critically low42.0-54.0 The [facility] HospitalComment on above:Performed By: #### TSH, T7, LIPA, EMILY, CMP #### [facility] [address] [place] [address] Dr. Emely AdrianHemoglobin (Bld) [Mass/Vol]9.5 g/dLCritically low14.0-18.0The [facility] HospitalComment on above:Performed By: #### TSH, T7, LIPA, EMILY, CMP #### [facility] [address] [place] [address] Dr. Emely Casiano #0.04 10e3/ulCritically high0.00-0.03The [facility] Comment on above:Performed By: #### TSH, T7, LIPA, EMILY, CMP #### [facility] [address] [place] [address] Dr. Emely Casiano %0.9 %Critically high0.0-0.5The [facility] HospitalComment on above:Performed By: #### TSH, T7, LIPA, EMILY, CMP #### [facility] [address] [place] [address] Dr. Emely Petit #1.3 103/ulNormal1.2-3.8The [facility] HospitalComment on above:Performed By: #### TSH, T7, LIPA, EMILY, CMP #### [facility] [address] [place] [address] Dr. Emely Canashocytes/100 WBC (Bld)29.6 %Sdezvw88.5-60.0The [facility] HospitalComment on above:Performed By: #### TSH, T7, LIPA, EMILY, CMP #### [facility] [address] [place] [address] Dr. Emely MichelleUAL DIFF REQNONormalThe [facility] HospitalComment on above: Performed By: #### TSH, T7, LIPA, EMILY, CMP #### [facility] [address] [place] [address] Dr. Emely Constantino (RBC) [Entitic mass]32.1 hpHbdjle85.9-34.0The [facility] HospitalComment on above:Performed By: #### TSH, T7, LIPA, EMILY, CMP #### [facility] [address] [place] [address] Dr. Emely AdrianVASSAR [facility] (RBC) [Mass/Vol]32.9 g/lIYjqsoq92.9-35.2The [facility] HospitalComment on above:Performed By: #### TSH, T7, LIPA, EMILY, CMP #### [facility] [address] [place] [address] Dr. Emely Constantino (RBC) [Entitic vol]97.6 fLCritically high80.0-94.0The [facility] Hospitalment on above:Performed By: #### TSH, T7, LIPA, EMILY, CMP #### [facility] [address] [place] [address] Dr. Emely Zamarripa #0.8 103/ulNormal0.3-0.8The [facility] HospitalComment on above:Performed By: #### TSH, T7, LIPA, EMILY, CMP #### [facility] [address] [place] [address] Dr. Emely Ellisocytes/100 WBC (Bld)17.2 %Critically high1.7-12.0The [facility] HospitalComment on above:Performed By: #### TSH, T7, LIPA, EMILY, CMP #### [facility] [address] [place] [address] Dr. Emely Del Real #2.2 103/ulNormal1.4-6.5The [facility] HospitalComment on above:Performed By: #### TSH, T7, LIPA, EMILY, CMP #### [facility] [address] [place] [address] Dr. Emely Maddenutrophils/100 WBC (Bld)49.3 %Mjxloj89.0-75.0The [facility] Hospitalment on above:Performed By: #### TSH, T7, LIPA, EMILY, CMP #### [facility] [address] [place] [address] Dr. Emely Weller mean volume (Bld) [Entitic vol]9.2 fLCritically low 9.5-13.5The [facility] HospitalComment on above:Performed By: #### TSH, T7, LIPA, EMILY, CMP #### [facility] [address] [place] [address] Dr. Emely AdrianPLT259 103/lkGnwndq346-498Ryk [facility] on above: Performed By: #### TSH, T7, LIPA, EMILY, CMP #### [facility] [address] [place] [address] Dr. Emely AdrianRBC2.96 106/ulCritically low4.70-6.10The [facility] on above:Performed By: #### TSH, T7, LIPA, EMILY, CMP #### [facility] [address] [place] [address] Dr. Emely AdrianWBC4.4 103/ulNormal4.0-11.0The [facility] HospitalComsheridan community hospital on above: Performed By: #### TSH, T7, LIPA, EMILY, CMP #### [facility] [address] [place] [address] Dr. Emely Romero THYROXINE INDEX T7on 67-13-8346WYG7.71Exsrvz3.30-4.50The [facility] on above:Performed By: #### TSH, T7, LIPA, EMILY, CMP #### [facility] [address] [place] [address] Dr. Emely AdrianT3U34.0 %Spwcus77.0-40.0The [facility] Hospitalment on above: Performed By: #### TSH, T7, LIPA, EMILY, CMP #### [facility] [address] [place] [address] Dr. Emely AdrianT4 [Mass/Vol]5.30 ug/dLNormal4.50-12.10The [facility] Comment on above:Performed By: #### TSH, T7, LIPA, EMILY, CMP #### [facility] [address] [address] [address] Emely Marcum PANEL (PCR)on 55-71-1519Cwsuumywxk F 40/41Not detectedNormal NOT DETECTEDThe [facility] HospitalComment on above:Performed By: #### GIPANEL #### [facility] [address] [address] [address] Emely AdrianAstrovirusNot detectedNormalNOT DETECTEDThe [facility] Comment on above:Performed By: #### GIPANEL #### [facility] [address] [address] [address] Emely Dahl. Diff toxin A/BNot detectedNormalNOT DETECTEDThe [facility] HospitalComment on above:Performed By: #### GIPANEL #### [facility] [address] [address] [address] Emely HainespylobacterNot detectedNormalNOT DETECTEDThe [facility] Comment on above:Performed By: #### GIPANEL #### [facility] [address] [address] [address] Emely GoodeyptosporidiumNot detectedNormalNOT DETECTEDThe [facility] HospitalComment on above:Performed By: #### GIPANEL #### [facility] [address] [address] [address] Emely Crockett. CayetanensisNot detectedNormalNOT DETECTEDThe [facility] HospitalComment on above:Performed By: #### GIPANEL #### [facility] [address] [address] [address] Emely De La Vega Coli K904Zfh ApplicableNormalNot ApplicableThe [facility] HospitalComment on above:Performed By: #### GIPANEL #### [facility] [address] [address] [address] Emely De La Vega histolyticaNot detectedNormalNOT DETECTEDWhite Hospital Comment on above:Performed By: #### GIPANEL #### [facility] [address] [address] [address] Emely Tripathi detectedNormalNOT DETECTEDThe [facility] HospitalComment on above:Performed By: #### GIPANEL #### [facility] [address] [address] [address] Emely Horne detectedNormalNOT DETECTEDThe [facility] HospitalComment on above:Performed By: #### GIPANEL #### [facility] [address] [address] [address] Emely Beckett detectedNormalNOT DETECTEDThe [facility] HospitalComment on above:Performed By: #### GIPANEL #### [facility] Laboratory [address] [address] [address] Emely Hall detectedNormalNOT DETECTEDThe [facility] HospitalComment on above:Performed By: #### GIPANEL #### [facility] [address] [address] [address] Emely Perry LambliaNot detectedNormalNOT DETECTEDThe [facility] Comment on above:Performed By: #### GIPANEL #### [facility] [address] [address] [address] Emely Horta [facility] HospitalComment on above:Performed By: #### GIPANEL #### [facility] [address] [address] [address] Emely Cummings MARY HEADERGI PANEL [facility] Comment on above:Performed By: #### GIPANEL #### [facility] [address] [address] [address] Emely Sanches ECOLIGI PANEL DIARRHEAGENIC E.COLI / SHIGELLAMemorial Health SystemComment on above:Performed By: #### GIPANEL #### [facility] [address] [address] [address] Emely Sanches INFOSEE Protestant HospitalComment on above: Result Comment: EAEC- Enteroaggregative E. Coli EPEC- Enteropathogenic E. Coli ETEC- Enterotoxigenic E. Coli lt/st STEC- Shigella-like toxin-producing E. Coli stx1/stx2 EIEC- Shigella/Enteroinvasive E. ColiPerformed By: #### HARVEYANEL #### [facility] [address] [place] [address] Dr. Emely Sanches PARASITESGI PANEL [facility] Comment on above:Performed By: #### HARVEYANEL #### [facility] [address] [address] [address] Emely Sanches VIRUSGI PANEL VIRUSESMemorial Health SystemComment on above:Performed By: #### LÓPEZL #### [facility] [address] [place] [address] Dr. Emely Perearovirus GI/GIINot detectedNormalNOT DETECTEDThe [facility] HospitalComment on above:Performed By: #### LÓPEZL #### [facility] [address] [place] [address] Dr. Emely Polanco. ShigelloidesNot detectedNormalNOT DETECTEDThe [facility] HospitalComment on above:Performed By: #### LÓPEZL #### [facility] [address] [place] [address] Dr. Emely De Andaavirus ANot detectedNormalNOT DETECTEDWhite [facility] Comment on above:Performed By: #### LÓPEZL #### [facility] [address] [place] [address] Dr. Emely AdrianSalmonellaNot detectedNormalNOT DETECTEDWhite [facility] Comment on above:Performed By: #### LÓPEZL #### [facility] [address] [place] [address] Dr. Emely AdrianSapovirusNot detectedNormalNOT DETECTEDWhite [facility] Comment on above:Performed By: #### LÓPEZL #### [facility] [address] [place] [address] Dr. Emely AdrianSTECNot detectedNormalNOT DETECTEDThe [facility] HospitalComment on above:Performed By: #### LÓPEZL #### [facility] [address] [address] [address] Emely MejiaioNot detectedNormalNOT DETECTEDThe [facility] HospitalComment on above:Performed By: #### GIPANEL #### [facility] [address] [address] [address] Emely Ford CholeraNot detectedNormalNOT DETECTEDThe [facility] Comment on above:Performed By: #### GIPANEL #### [facility] [address] [address] [address] Emely Bobo. EnterocoliticaNot detectedNormalNOT DETECTEDThe [facility] HospitalComment on above:Performed By: #### GIPANEL #### [facility] [address] [place] [address] Dr. Emely AdrianGLYCOHEMOGLOBIN A1Con [id number] RECOMMENDATIONSEE BELOWNormal The [facility] HospitalComment on above:Result Comment: ADA RECOMMENDED LIMIT 4.0 - 6.0 ADA THERAPEUTIC TARGET < 7.0 ACTION SUGGESTED > 7.0Performed By: #### TSH, T7, LIPA, EMILY, CMP #### [facility] [address] [place] [address] Dr. Emely AdrianGlucose [Mass/Vol]120 mg/dLNormalThe [facility] HospitalComment on above:Performed By: #### TSH, T7, LIPA, EMILY, CMP #### [facility] [address] [address] [address] Emely AdrianHbA1c (Bld) [Mass fraction]5.8 %Normal4.5-6.2The [facility] HospitalComment on above:Performed By: #### TSH, T7, LIPA, EMILY, CMP #### [facility] [address] [place] [address] Dr. Emely Jeffrey [id number] [Mass/Vol]55.0 ug/dLCritically low 65.0-175.0The [facility] HospitalComment on above:Performed By: #### CBC #### [facility] [address] [place] [address] Dr. Emely CrowASEjarrett 71-61-0138Evrlyh [Catalytic activity/Vol]671.0 U/L Critically high73.0-393.0The [facility] HospitalComment on above:Performed By: #### TSH, T7, LIPA, EMILY, CMP #### [facility] [address] [address] [address] Emely Robbins BLD IMMUNO SCREENon 10-06-8193KLJTFX BLOODPositiveAbnormal NEGATIVEThe [facility] HospitalComment on above:Performed By: #### TSH, T7, LIPA, EMILY, CMP #### [facility] [address] [place] [address] Dr. Emely AdrianPROF 14(COMP METB)on 18-55-7112Yelemgh [Mass/Vol]3.0 g/dL Critically low3.4-5.0The [facility] HospitalComment on above:Performed By: #### TSH, T7, LIPA, EMILY, CMP #### [facility] [address] [place] [address] Dr. Emely AdrianAlbumin/Globulin [Mass ratio]0.8 {ratio}NormalThe [facility] HospitalComment on above:Performed By: #### TSH, T7, LIPA, EMILY, CMP #### [facility] [address] [place] [address] Dr. Emely Ballesteros [Catalytic activity/Vol]58 U/NEpxybk51-918Khd [facility] HospitalComment on above:Performed By: #### TSH, T7, LIPA, EMILY, CMP #### [facility] [address] [place] [address] Dr. Emely Carmichael [Catalytic activity/Vol]25 U/QNkkasv45-37Thw [facility] Hospitalment on above:Performed By: #### TSH, T7, LIPA, EMILY, CMP #### [facility] [address] [place] [address] Dr. Emely Patel gap [Moles/Vol]12.1 mmol/LNormalThe [facility] Comment on above:Performed By: #### TSH, T7, LIPA, EMILY, CMP #### [facility] [address] [place] [address] Dr. Emely AdrianAST [Catalytic activity/Vol]20 U/UEsaufn38-13Thp [facility] HospitalComment on above:Performed By: #### TSH, T7, LIPA, EMILY, CMP #### [facility] [address] [place] [address] Dr. Emely AdrianBilirubin [Mass/Vol]0.2 mg/dLNormal0.2-1.0The [facility] Comment on above:Performed By: #### TSH, T7, LIPA, EMILY, CMP #### [facility] [address] [place] [address] Dr. Emely AdrianCalcium [Mass/Vol]8.3 mg/dLCritically low8.5-10.1The [facility] HospitalComment on above:Performed By: #### TSH, T7, LIPA, EMILY, CMP #### [facility] [address] [place] [address] Dr. Emely AdrianChloride [Moles/Vol]108 mmol/LCritically bhzm68-424Lpj [facility] HospitalComment on above:Performed By: #### TSH, T7, LIPA, EMILY, CMP #### [facility] [address] [place] [address] Dr. Emely AdrianCO2 [Moles/Vol]24.5 mmol/TGjazpz49.0-32.0[facility] Comment on above:Performed By: #### TSH, T7, LIPA, EMILY, CMP #### [facility] [address] [place] [address] Dr. Emely AdrianCreatinine [Mass/Vol]0.97 mg/dLNormal0.70-1.30The [facility] HospitalComment on above:Performed By: #### TSH, T7, LIPA, EMILY, CMP #### [facility] [address] [place] [address] Dr. Han ChangEGFR-AF NEPALESE>60Normal>=60The [facility] HospitalComment on above:Performed By: #### TSH, T7, LIPA, EMILY, CMP #### [facility] [address] [place] [address] Dr. Emely HullGFR-NON AF NEPALESE>60Normal>=60The [facility] HospitalComment on above:Performed By: #### TSH, T7, LIPA, EMILY, CMP #### [facility] [address] [place] [address] Dr. Emely AdrianGlobulin (S) [Mass/Vol]3.8 g/dLNormalThe [facility] HospitalComment on above:Performed By: #### TSH, T7, LIPA, EMILY, CMP #### [facility] [address] [place] [address] Dr. Emely AdrianGlucose [Mass/Vol]97 mg/dBRsvqst60-579FanWhite Hospital Comment on above:Performed By: #### TSH, T7, LIPA, EMILY, CMP #### [facility] [address] [place] [address] Dr. Emely AdrianPotassium [Moles/Vol]4.6 mmol/LNormal3.5-5.1[facility] Comment on above:Performed By: #### TSH, T7, LIPA, EMILY, CMP #### [facility] [address] [place] [address] Dr. Emely AdrianProtein [Mass/Vol]6.8 g/dLNormal6.4-8.2The [facility] Comment on above:Performed By: #### TSH, T7, LIPA, EMILY, CMP #### [facility] [address] [place] [address] Dr. Emely AdrianSodium [Moles/Vol]140 mmol/BSvmyrf917-133NstWhite Hospital Comment on above:Performed By: #### TSH, T7, LIPA, EMILY, CMP #### [facility] [address] [place] [address] Dr. Emely AdrianUrea nitrogen [Mass/Vol]20.0 mg/dLCritically high7.0-18.0The [facility] HospitalComment on above:Performed By: #### TSH, T7, LIPA, EMILY, CMP #### [facility] [address] [place] [address] Dr. Emely AdrianUrea nitrogen/Creatinine [Mass ratio]20.6 mg/mgNoSamaritan North Health CenterComsheridan community hospital on above:Performed By: #### TSH, T7, EMILY WIGGINS, CMP #### [facility] [address] [place] [address] Dr. Emely JacksonHocorine 16-23-9533QVR5.247 uIU/mLNormal0.358-3.740The [facility] Hospitalment on above:Performed By: #### TSH, T7, EMILY WIGGINS, CMP #### [facility] [address] [place] [address] Dr. Emely AdrianVITAMIN D 25 OHon 11-05-5213YOA D 25-OH23.9 ng/mLNormalThe [facility] on above:Performed By: #### CBC #### [facility] [address] [place] [address] Dr. Emely Espinoza RANGESSEE BELOWMemorial Health SystemComment on above: Result Comment: <20 ng/mL Vit D deficient 20 - <30 ng/mL Vit D insufficient 30 - 100 ng/mL Vit D sufficient >100 ng/mL Potential ToxicityPerformed By: #### CBC #### [facility] [address] [place] [address] Dr. Emely AdrianCREATININEon 43-23-3162Umhjymdcdj [Mass/Vol]1.21 mg/dLNormal 0.70-1.30The [facility] on above:Performed By: #### TSH, T7, LIPEMILY Hill, CMP #### [facility] [address] [place] [address] Dr. Emely HullGFR-AF NEPALESE>60Normal>=60The [facility] on above:Performed By: #### TSH, T7, LIPA EMILY, CMP #### [facility] [address] [place] [address] Dr. Emely HullGFR-NON AF NEPALESE=60Normal>=60The [facility] Hospitalment on above:Performed By: #### TSH, T7, LIPA, EMILY, CMP #### [facility] [address] [address] [address] Emely AdrianCT CHEST WO W CONon [id number] CHEST WO W CONEXAMINATION: CT CHEST WO W CON HISTORY: Aneurysm of thoracic [...] since prior study. Electronically authenticated by: CARLOS RICE Date: 2021-12-30 08:[address] [place] [address] STRESS/REST MULTIon [id number] STRESS/REST MULTIPatient: PABLO BECKMAN Exam Date: 11/09/2021 : 1955 Gender:M Ordering : DR GUILLERMO CHANCE . Admission #: [id number] Family : Order #: [id number] CLICK HERE TO VIEW EXAM RADIOLOGY REPORT [...] ejection fraction, 50%. Six Dictated by: Carlos Rice M.D. on 11/09/2021 at 14:01 Approved by: Carlos Rice M.D. on 11/09/2021 at 14:17[facility] SystemCARDIAC PHILIP 3-6on [id number] [Catalytic activity/Vol]114 U/LNormal 39-308[facility] Hospitalment on above:Performed By: #### TSH, T7, LIPA, EMILY, CMP #### [facility] [address], [place] [address] Dr. Emely Ledbetter.MB [Mass/Vol]1.75 ng/mLNormal<=3.60The [facility] Comment on above:Performed By: #### TSH, T7, LIPA, EMILY, CMP #### [facility] [address], [place] [address] Dr. Emely Conway10.8 pg/mLNormal4.0-76.1The [facility] HospitalComment on above:Result Comment: CUT-OFF POINTS HAVE BEEN ESTABLISHED BASED ON THE FOURTH UNIVERSAL DEFINITIONS OF MYOCARDIAL INFARCTION. THE UPPER REFERENCE LIMIT (URL) OF TROPONIN, DEFINED THE 99TH PERCENTILE OF cTnI DISTRIBUTION IN A REFERENCE POPULATION, HAS BEEN CONFIRMED THE DECISION THRESHOLD FOR PR DIAGNOSIS.Performed By: #### TSH, T7, LIPA, EMILY, CMP #### [facility] [address] [place] [address] Dr. Emely Ledbetter [Catalytic activity/Vol]122 U/QBuyuip83-314ZumWhite HospitalComment on above:Performed By: #### TSH, T7, LIPA, EMILY, CMP #### [facility] [address] [place] [address] Dr. Emely Ledbetter.MB [Mass/Vol]2.59 ng/mLNormal<=3.60[facility] Comment on above:Performed By: #### TSH, T7, LIPA, EMILY, CMP #### [facility] [address] [place] [address] Dr. Emely Conway10.5 pg/mLNormal4.0-76.1The [facility] HospitalComsheridan community hospital on above:Result Comment: CUT-OFF POINTS HAVE BEEN ESTABLISHED BASED ON THE FOURTH UNIVERSAL DEFINITIONS OF MYOCARDIAL INFARCTION. THE UPPER REFERENCE LIMIT (URL) OF TROPONIN, DEFINED THE 99TH PERCENTILE OF cTnI DISTRIBUTION IN A REFERENCE POPULATION, HAS BEEN CONFIRMED THE DECISION THRESHOLD FOR PR DIAGNOSIS.Performed By: #### TSH, T7, LIPA, EMILY, CMP #### [facility] [address] [place] [address] Dr. Emely Ledbetter [Catalytic activity/Vol]130 U/VFbzdec41-862Tpg [facility] HospitalComment on above:Performed By: #### CBC #### [facility] [address] [place] [address] Dr. Emely Ledbetter.MB [Mass/Vol]2.10 ng/mLNormal<=3.60[facility] Comment on above:Performed By: #### CBC #### [facility] [address] [place] [address] Dr. Emely EchevarriaOP10.2 pg/mLNormal4.0-76.1[facility] on above:Result Comment: CUT-OFF POINTS HAVE BEEN ESTABLISHED BASED ON THE FOURTH UNIVERSAL DEFINITIONS OF MYOCARDIAL INFARCTION. THE UPPER REFERENCE LIMIT (URL) OF TROPONIN, DEFINED THE 99TH PERCENTILE OF cTnI DISTRIBUTION IN A REFERENCE POPULATION, HAS BEEN CONFIRMED THE DECISION THRESHOLD FOR PR DIAGNOSIS.Performed By: #### CBC #### [facility] [address] [address] [address] Emely PALACIOS ADMITon [id number] [Catalytic activity/Vol]164 U/L Hcuetu79-360Ilg [facility] HospitalComment on above:Performed By: #### CBC #### [facility] [address] [address] [address] Emely Ledbetter.MB [Mass/Vol]3.38 ng/mLNormal<=3.60The [facility] Comment on above:Performed By: #### CBC #### [facility] [address] [place] [address] Dr. Emely AdrianHSTROP9.5 pg/mLNormal4.0-76.1The [facility] HospitalComment on above:Result Comment: CUT-OFF POINTS HAVE BEEN ESTABLISHED BASED ON THE FOURTH UNIVERSAL DEFINITIONS OF MYOCARDIAL INFARCTION. THE UPPER REFERENCE LIMIT (URL) OF TROPONIN, DEFINED THE 99TH PERCENTILE OF cTnI DISTRIBUTION IN A REFERENCE POPULATION, HAS BEEN CONFIRMED THE DECISION THRESHOLD FOR PR DIAGNOSIS.Performed By: #### CBC #### [facility] [address] [address] [address] Emely DawkinsO124 ng/mLCritically ekur34-30Zoy [facility] HospitalComment on above:Performed By: #### CBC #### [facility] [address] [place] [address] Dr. Emely Frazier AUTO DIFFon [id number] #0.0 103/ulNormal0.0-0.1The [facility] HospitalComment on above:Performed By: #### CBC #### [facility] [address] [address] [address] Emely AdrianBasophils/100 WBC (Bld)0.1 %Critically low0.2-2.0The [facility] HospitalComment on above:Performed By: #### CBC #### [facility] [address] [address] [address] Han ChangEO #0.3 103/ulNormal0.0-0.7The [facility] HospitalComment on above: Performed By: #### CBC #### [facility] [address] [address] [address] Emely Hullosinophils/100 WBC (Bld)3.2 %Normal0.9-7.0The [facility] Comment on above:Performed By: #### CBC #### [facility] [address] [place] [address] Dr. Emely Hullrythrocyte distribution width (RBC) [Ratio]13.6 %Jnzzjv75.0-15.0 White HospitalComment on above:Performed By: #### CBC #### [facility] [address] [place] [address] Dr. Emely AdrianHematocrit (Bld) [Volume fraction]32.2 %Critically low42.0-54.0 [facility] HospitalComment on above:Performed By: #### CBC #### [facility] [address] [place] [address] Dr. Emely AdrianHemoglobin (Bld) [Mass/Vol]10.5 g/dLCritically low14.0-18.0[facility] HospitalComment on above:Performed By: #### CBC #### [facility] [address] [place] [address] Dr. Emely Casiano #0.05 10e3/ulCritically high0.00-0.03[facility] Comment on above:Performed By: #### CBC #### [facility] [address] [place] [address] Dr. Emely Casiano %0.6 %Critically high0.0-0.5The [facility] HospitalComment on above:Performed By: #### CBC #### [facility] [address] [place] [address] Dr. Emely Petit #1.7 103/ulNormal1.2-3.8The [facility] HospitalComment on above:Performed By: #### CBC #### [facility] [address] [place] [address] Dr. Emely Canashocytes/100 WBC (Bld)19.7 %Critically low20.5-60.0The [facility] HospitalComment on above:Performed By: #### CBC #### [facility] [address] [place] [address] Dr. Emely Davis DIFF REQNONormalThe [facility] HospitalComment on above: Performed By: #### CBC #### [facility] [address] [place] [address] Dr. Emely Constantino (RBC) [Entitic mass]31.7 huSqdhof54.9-34.0The [facility] HospitalComment on above:Performed By: #### CBC #### [facility] [address] [place] [address] Dr. Emely Constantino (RBC) [Mass/Vol]32.6 g/bVLcqlie51.9-35.2The [facility] HospitalComment on above:Performed By: #### CBC #### [facility] [address] [place] [address] Dr. Emely Smith (RBC) [Entitic vol]97.3 fLCritically high80.0-94.0The [facility] HospitalComment on above:Performed By: #### CBC #### [facility] [address] [place] [address] Dr. Emely Zamarripa #1.0 103/ulCritically high0.3-0.8The [facility] Comment on above:Performed By: #### CBC #### [facility] [address] [place] [address] Dr. Emely Ellisocytes/100 WBC (Bld)12.4 %Critically high1.7-12.0The [facility] HospitalComment on above:Performed By: #### CBC #### [facility] [address] [place] [address] Dr. Emely Del Real #5.4 103/ulNormal1.4-6.5The [facility] HospitalComment on above:Performed By: #### CBC #### [facility] [address] [place] [address] Dr. Yilan ChangNeutrophils/100 WBC (Bld)64.0 %Ojlbes47.0-75.0The [facility] HospitalComment on above:Performed By: #### CBC #### [facility] [address] [place] [address] Dr. Emely Bonelet mean volume (Bld) [Entitic vol]9.2 fLCritically low 9.5-13.5The [facility] HospitalComment on above:Performed By: #### CBC #### [facility] [address] [place] [address] Dr. Emely AdrianPLT417 103/wqRkmzrs664-173Zja [facility] HospitalComment on above: Performed By: #### CBC #### [facility] [address] [place] [address] Dr. Emely AdrianRBC3.31 106/ulCritically low4.70-6.10The [facility] HospitalComment on above:Performed By: #### CBC #### [facility] [address] [place] [address] Dr. Emely AdrianWBC8.4 103/ulNormal4.0-11.0The [facility] HospitalComment on above: Performed By: #### CBC #### [facility] [address] [place] [address] Dr. Emely Martin CHEST WO W CONon 30-17-5633MZX CHEST WO W CONEXAMINATION: CTA CHEST WO W CON HISTORY: CHEST [...] aorta, 4.4 cm. Electronically authenticated by: CARLOS RICE Date: 2021-10-27 06:37NoSamaritan North Health CenterCovid-19 PCR (CVDTBH)on [id number]-CoV-2 (COVID-19) RNA ISIDRO+probe Ql (Unsp spec)Not detectedNormalNOT DETECTEDWhite Hospital Comment on above:Result Comment: When diagnostic testing is negative, the [...] for this test is supported by the Emergency Medicine Physician of Health and Human Service's declaration that circumstances exist to justify the emergency use of in vitro diagnostics for the detection and/or diagnosis of the virus that causes COVID-19. This EUA will remain in effect for the duration of the COVID-19 declaration justifying emergency of IVDs, unless it is terminated or revoked by the FDA (after which the test may no longer be used).Performed By: #### TSH, T7, LIPA, EMILY, CMP #### [facility] [address] [place] [address] Dr. Emely Guerrero 99-59-0696Z-DIMER2.19 mg/L FEUCritically high<=0.59White HospitalComment on above:Performed By: #### TSH, T7, LIPA, EMILY, CMP #### [facility] [address] [address] [address] Emely Lindo COMMENTSSEE Protestant HospitalComment on above:Result Comment: Increases in D-Dimer concentration observed with thromboembolic events [...] stress, and generalized hospitalization. Performed By: #### TSH, T7, LIPA, EMILY, CMP #### [facility] [address], [place] [address] Dr. Emely Bangura 32-42-4514HRN<0.2Critically low0.9-2.0The [facility] HospitalComment on above:Performed By: #### TSH, T7, LIPA, EMILY, CMP #### [facility] [address] [address] [address] Emely HullCHOCARDISherri M/2D COMPLETEon [id number] M/2D COMPLETE Patient: PABLO BECKMAN Exam Date: 10/27/2021 : 1955 Gender:M Ordering : DR GUILLERMO CHANCE . Admission #: [id number] Family : Order #: [id number] CLICK HERE TO VIEW EXAM ECHOCARDIOGRAM REPORT [...] by: Magdalena Stark M.D. on 10/27/2021 at 17:01[facility] Health SystemLACTATE/LACTIC ACIDon 91-22-8593Vgganae [Moles/Vol]0.5 mmol/LNormal 0.4-1.9[facility] HospitalComment on above:Performed By: #### TSH, T7, LIPA, EMILY, CMP #### [facility] [address] [address] [address] Emely AdrianLactate [Moles/Vol]0.5 mmol/LNormal0.4-1.9[facility] Comment on above:Performed By: #### CBC #### [facility] [address] [address] [address] Emely AdrianPROF CHEM 8 (BAS METB)on 66-94-0525Hywty gap [Moles/Vol]15.3 mmol/LNormalWhite HospitalComment on above:Performed By: #### CBC #### [facility] [address] [address] [address] Emely AdrianCalcium [Mass/Vol]9.1 mg/dLNormal8.5-10.1[facility] Comment on above:Performed By: #### CBC #### [facility] [address] [place] [address] Dr. Emely AdrianChloride [Moles/Vol]105 mmol/MNcnklm46-541SybWhite Hospital Comment on above:Performed By: #### CBC #### [facility] [address] [address] [address] Emely AdrianCO2 [Moles/Vol]26.6 mmol/FXlseax22.0-32.0The [facility] Comment on above:Performed By: #### CBC #### [facility] [address] [address] [address] Emely AdrianCreatinine [Mass/Vol]1.29 mg/dLNormal0.70-1.30The [facility] HospitalComment on above:Performed By: #### CBC #### [facility] [address] [address] [address] Emely HullGFR-AF NEPALESE>60Normal>=60The [facility] HospitalComment on above:Performed By: #### CBC #### [facility] [address] [address] [address] Emely HullGFR-NON AF GNKKSXRS68 mL/min/1.35t0Tfbrcymijz low>=60The [facility] HospitalComment on above:Performed By: #### CBC #### [facility] [address] [address] [address] Emely AdrianGlucose [Mass/Vol]100 mg/gSXjidcn33-113KbhWhite Hospital Comment on above:Performed By: #### CBC #### [facility] [address] [address] [address] Emely AdrianPotassium [Moles/Vol]3.9 mmol/LNormal3.5-5.1[facility] Comment on above:Performed By: #### CBC #### [facility] [address] [address] [address] Emely AdrianSodium [Moles/Vol]143 mmol/JKbdxrt365-010VowWhite Hospital Comment on above:Performed By: #### CBC #### [facility] [address] [address] [address] Emely AdrianUrea nitrogen [Mass/Vol]28.0 mg/dLCritically high7.0-18.0The [facility] HospitalComment on above:Performed By: #### CBC #### [facility] [address] [place], [place] [address] Dr[address] Emely AdrianUrea nitrogen/Creatinine [Mass ratio]21.7 mg/mgMemorial Health SystemComment on above:Performed By: #### CBC #### [facility] [address], [place] [address] Dr. Emely AdrianXR CHEST 1 Von 93-40-2932FE CHEST 1 VEXAM: XR CHEST 1 V 10/27/2021 3:51 AM [...] Electronically authenticated by: KARLY SAID Date: 2021-10-27 04:41[facility] SystemCardiovascular Lab Reporton 81-16-5250Asmlnvjrhahxia Lab Report [facility] Patient Name: Rk [facility] MR #: [id number] Physician: Mamta Stephenson, Department of HOUSEHOLD MANAGER Medicine Service Date: 04/07/2021 Division of Birthdate: 1955 Cardiology Room #: [facility] Cardiovascular Services [address] [address] Cardiovascular Laboratory Report DATE OF PROCEDURE; 04/07/2021 PHYSICIAN: Alexi Medina MD FINAL IMPRESSIONS: 1. moderate coronary artery [...] INDICATIONS: Heart Failure Electronically Signed by: Alexi Medina MD 04/09/2021 11:33 A Mamta Stephenson CNP Date Dict: 04/09/2021/11:17 A/Alexi Medina MD Date Trans: 04/09/2021 11:17 A/ MATTI_JN:[id number] Grant [facility] Center Vital Signs Date TimeVital SignValuePerforming BcpbekxrhKphcuezg20-61-4167 12:43-0500Body blzlltyrobd38.88 [degF]WALLACE WEI [facility]03-03-2025 12:43-0500Diastolic blood nicpfsez58 mm[Hg]WALLACE WEI [facility]03-03-2025 12:43-0500Heart rate66 /minJENNIFER SANJUANA [facility]03-03-2025 12:43-0500Respiratory rate16 /minJENNIFER SANJUANA [facility]03-03-2025 12:43-0500Systolic blood yvlmegog247 mm[Hg]WALLACE SANJUANA [facility] Encounters Encounter DateEncounter TypeCare ProviderFacilityStart: 01-22-2025 End: 61-52-2117svjbgvadnbBRHHTNIIHOKThe [facility] Hospital [facility] Start: 07-18-2024 End: 35-92-1342lyxeuskaawEOZFCYOCleveland Clinic Fairview Hospitaltart: 06-20-2024 End: 45-76-5648Cqarqswur encounterG Isidoro Williamson MD Work Phone: Radiation OncologyComment on above:Future Appointment Start: 53-90-1293vxlkfnocxxCRPCVQWTrinity Health System [facility] Start: 06-19-2024 End: 12-83-2341rajuwuaijrAKSZZTUAdams County Hospital Start: 06-18-2024 End: 47-04-6244zkuylxalsbG Phillip Engeler MD Work Phone: Radiation OncologyComment on above:Personal history of prostate cancer (Primary Dx)Start: 06-18-2024 End: 90-91-2336Xoilbtmezdvo consultation with patientG Isidoro Williamson MD Work Phone: Radiation OncologyStart: 06-10-2024 End: 28-37-1141dmxdbhvaqgCP-Madelaine WEIFacility:FTMCStart: 06-10-2024 End: 68-32-8555Soi Drop offJELIZZIEIFER E SANJUANA [facility] Start: 06-10-2024 End: 16-27-0920dtrlscwwbzDM-C WALLACE E ASHLEYJEISONFacility:EU BellevueStart: 06-10-2024 End: 40-32-2112Dxwyenq encounter procedureJENNIFER E SANJUANA [facility] Renata start: 06-03-2024 End: 33-15-9844oxxfbchuerNRQGPZT [facility] Start: 83-72-4396Mwzrjmlnc encounterG Isidoro Williamson MD Work Phone: Radiation OncologyComment on above:Results; AppointmentStart: 77-60-6947Kqeqfobrq encounterG Isidoro Williamson MD Work Phone: Radiation OncologyComment on above:Future Appointment Start: 06-23-2022 End: 12-09-5629tyefzfkjmdB Phillip Engeler MD Work Phone: Radiation OncologyComment on above:Malignant neoplasm of prostate (HCC) (Primary Dx)Start: 06-23-2022 End: 34-54-5272Njejhbsamyxb consultation with patientG Isidoro Williamson MD Work Phone: SANDUSKYStart: 07-88-6935Dhfkqxpya encounterG Isidoro Williamson MD Work Phone: Radiation OncologyComment on above:Patient Question Start: 06-02-2022 End: 40-94-7932gcwesrteixMWDaquan CLARKacility:V3Bsffz: 03-29-2022 End: 20-05-4325Lxbfpwp encounter procedureMichael R NILL General Surgery Nill/Said [place] Start: 48-76-1660Beewpftzb for preprocedural laboratory examinationDR PATRICIO OBRIEN .[facility]: 03-18-2022 End: 47-02-4939yexaioftjwAB PATRICIO OBRIEN .Facility:L0Vlorj: 03-14-2022 End: 16-65-1042ywpqnddtktXJ PATRICIO MARTINEZL .Facility:C0Fwwca: 03-14-2022 End: 65-10-9976Kisnsmhmp for preprocedural laboratory examinationDR PATRICIO OBRIEN .Facility:A8Nfjcx: 03-09-2022 End: 40-95-7656ygtuhmkgiaCH ISIDRO Alcantara ELIELECKFacility:E3Eorgi: 02-25-2022 End: 74-28-2090qptpivzuhhHA GUILLERMO HOY .Facility:H4Tbagg: 12-30-2021 End: 72-34-4345gsjqoiagrvLY GUILLERMO HOY .Facility:L1Jjdpv: 11-09-2021 End: 32-79-1546vcmkjunjreTB GUILLERMO HOY .Facility:X6Xpbfl: 10-27-2021 End: 35-56-9464skramlfzafKY GUILLERMO HOY .Facility:E3Qtnie: 04-07-2021 End: 01-73-8728iedvipxpkgOGQQEGJ TUCKERFacility:[facility] Procedures DateProcedureProcedure DetailPerforming ClinicianStart: 27-24-9643LRO screening Ccf ProviderStart: 06-02-2022 End: 14-56-6617FCZ screeningCcf ProviderComment on above:Performed By: #### TSH, T7, LIPA, EMILY, CMP #### [facility] [address] [place] [address] Dr. Emely AdrianStart: 17-81-2874RupxmcxzsghRgfbdvh NILL Start: 42-82-9207KacxrcjrvwouddpwufcuznhefwIybbgpg NILL Start: 10-39-7979OxzityxtdrbUbztrlk NILL Start: 31-39-2975KkqcpdhvhtsOmnqnyv NILL Amputation of finger, except thumbMichael NILL Arthroscopy of shoulderMichael NILL Herniated structure (morphologic abnormality)WALLACE WEI Implantation of radioactive seed into prostateMichael NILL Open reduction of fracture with internal fixation Patricio NILL Comment on above:right legUmbilical herniorrhaphy using surgical suturesMichael NILL Plan of Treatment DateCare ActivityDetailAuthorStart: 69-99-1046QCA Vaccine (1 - 1-dose 75+ series)RSV Vaccine (1 - 1-dose 75+ series)[facility] 06-12[facility]2029 Prostate specific antigen measurementProstate Cancer Screening Discussion [facility]: 11-70-7864Hymjylbs specific antigen measurementProstate Cancer Screening DiscussionSheltering Arms Hospitaltart: 55-79-1510DKGKRHQJ CANCER SCREENING DISCUSSIONPROSTATE CANCER SCREENING DISCUSSIONSheltering Arms Hospitaltart: 28-87-8799Fejslnjt specific antigen measurementProstate Cancer Screening DiscussionSheltering Arms Hospitaltart: 06-20-2025 End: 23-15-3951Cfmsosiq specific Ag [Mass/volume] in Serum or PlasmaPROSTATE- SPECIFIC ANTIGEN DIAGNOSTIC Lab Routine Personal history of prostate cancer Expected: 06/20/2025 (Approximate), Expires: 09/19/2025[facility] Work Phone: Comment on above:Expected: 06/20/2025 (Approximate), Expires: 09/19/2025Start: 06-18-2025 End: 95-65-7141Jbdxnr-up xsudivxpd08/11/2026 4:30 PM EDT [facility] Radiation Oncology [address] [place] [address] [place] [address] Quinton Williamson MD [address] [place] [address] [place] [address] 1 year [facility] OncologyComment on above:[facility]24 End: 67-21-1402Eptidbqb specific Ag [Mass/volume] in Serum or Plasma PSA/PROSTSPECAG DIAG Lab Routine Malignant neoplasm of prostate (HCC) Expected: 06/12/2024, [facility]: [facility] Work Phone: Comment on above:Expected: 06/12/2024, Expires: 09/11/2024Start: 65-39-7210Acsfppu Directive DiscussionAdvance Directive DiscussionSheltering Arms Hospitaltart: 28-82-6007Ovdnf-19 Vaccine () Covid-19 Vaccine ()[facility]: 54-12-7978Frtixjwsp vaccinationInfluenza Vaccine (#1)[facility]: 05-23-2023 End: 21-77-0522Olsomsfu specific Ag [Mass/volume] in Serum or Plasma PSA/PROSTSPECAG DIAG Lab Routine Malignant neoplasm of prostate (HCC) Expected: 05/23/2023, Expires: 08/22/2023[facility] Work Phone: Comment on above:Expected: 05/23/2023, Expires: 08/22/2023Start: 88-60-0264Ygpislf Directive DiscussionAdvance Directive DiscussionSheltering Arms Hospitaltart: 45-32-2629Qdziqqrquf AssessmentDepression AssessmentSheltering Arms Hospitaltart: 33-09-1780Vscvuftyiyos Vaccine: 50+ (2 of 2 - PPSV23)Pneumococcal Vaccine: 50+ (2 of 2 - PPSV23)[facility]: 41-55-1707Imgpsiebdyzr Vaccine: 65+ (2 of 2 - PPSV23 or PCV20)Pneumococcal Vaccine: 65+ (2 of 2 - PPSV23 or PCV20)[facility]: 41-71-8451Zubfu-19 Vaccine ( season)Covid-19 Vaccine ()[facility]: 82-40-8434Uouaygyno vaccinationInfluenza Vaccine (#1)[facility]: 59-14-9097UXBQLKH DIRECTIVE DISCUSSIONADVANCE DIRECTIVE DISCUSSION [facility]: 04-64-1276SVVQLOGHFY ASSESSMENTDEPRESSION ASSESSMENT [facility]: 51-33-3171Lgcxomfnt vaccinationINFLUENZA (#1)[facility]: 05-23-3404TQXBDBTQVOVY: 65+ (1 - PCV)PNEUMOCOCCAL: 65+ (1 - PCV) [facility]: 30-74-7226FUQKT-19 VACCINE (3 - Booster for Pfizer series)COVID-19 VACCINE (3 - Booster for Pfizer series)[facility]: 37-52-0549VBX Vaccine (1 - 1-dose 60+ series)RSV Vaccine (1 - 1-dose 60+ series) [facility]: 56-56-3787BIEWHLBV VACCINE (1 of 2)SHINGRIX VACCINE (1 of 2)[facility]: 81-43-8552FVGHXJOAQ (FIT-DNA)COLOGUARD (FIT-DNA) [facility]: 38-69-8818VkdxeogziphMKYFDVUXMGNGgktbdyzk ClinicStart: 01-70-1201ZWVQJNXTXA CANCER SCREENINGCOLORECTAL CANCER SCREENINGOhio State East Hospital Start: 36-52-5462EM COLONOGRAPHYCT COLONOGRAPHYSheltering Arms Hospitaltart: 2001 DIABETES SCREENDIABETES SCREENSheltering Arms Hospitaltart: 67-36-3175Ggynvwlr ScreeningDiabetes ScreeningSheltering Arms Hospitaltart: 95-91-9196AHBYT OCCULT BLOOD FECAL OCCULT BLOODSheltering Arms Hospitaltart: 66-79-0781Gulywjxzc for malignant neoplasm of colonSheltering Arms Hospitaltart: 76-49-3931SQSKOCBSQSHABMMBWPFMFNCZWQ [facility]: 40-43-9668Zgzno panelLipid ScreeningOhio State East Hospital Start: 13-84-4664TCRPZ SCREENLIPID SCREENSheltering Arms Hospitaltart: 90-01-0149Hcowy microalbumin profileSheltering Arms Hospitaltart: 13-14-9430Jbuwdpf ScreeningAnxiety ScreeningSheltering Arms Hospitaltart: 26-05-5682Qpfaotmymp ScreeningDepression ScreeningSheltering Arms Hospitaltart: 53-01-5128RCFDSWUYN C SCREENINGHEPATITIS C SCREENINGSheltering Arms Hospitaltart: 20-79-9355Wghvlinhy C screeningHepatitis C ScreeningSheltering Arms Hospitaltart: 08-83-8759XKQ SCREENINGHIV SCREENINGSheltering Arms Hospitaltart: 82-14-8897YVTTIYCKB AORTIC ANEURYSM SCREENINGABDOMINAL AORTIC ANEURYSM SCREENINGSheltering Arms Hospitaltart: 39-99-4829Zgskgfewn aortic aneurysm screeningAbdominal Aortic Aneurysm ScreeningOhio State University [facility] Immunizations Immunization DateImmunizationNotesCare ProviderFacilityNEGATED: Highlighted row has not occurred!81-84-4471xwyifamzu virus vaccine, unspecified formulation Patricio OBRIEN General Surgery [place] Payers DatePayer CategoryPayerPolicy [id number] 2023Medicare DEVOTED MEDICARE DEVOTED [place]ALTH [place] HMO [id number] 2023-Present [phone] [address] [place] [address] [id number] [id number] Health Insurance [id number] [facility] [id number] 2006-Present [phone] [address] [id number] [id number] 2.840.1.700887.3.579.2.05985-70-3054 [id number] 2.840.1.698767.3.57[id number] 2.16.840.1.065730.3.57[id number] 2.840.1.932324.3.57[id number] 2.16.840.1.898673.3.57[id number] 2.16.840.1.727260.3.57[id number] 2.16.840.1.886702.3.57[id number] 2.16.840.1.608206.3.57[id number] 2.16.840.1.506354.3.57[id number] 2.16.840.1.621934.3.57[id number] 2..840.1.602281.3.579.2.727 Social History DateTypeDetailFacilityStart: 06-24-2020 End: 07-18-7351Ltizrnz smoking statusEx-smoker (finding)General Surgery [place] Tobacco smoking statusNeverGeneral Surgery BellevueStart: 06-24-2020 End: 76-82-0323Mve Assigned At BirthMalOhioHealth Marion General Hospitaltart: 06-11-1978 End: 46-59-2461Ilqgmoc of tobacco useCurrent smokerSheltering Arms Hospitaltart: 06-11-1979 End: 88-50-8713Ljlgbgz of tobacco useCigarette SmokerSheltering Arms Hospitaltart: 06-24-2020 End: 27-09-1001Dqjbavfjvm smoked current (pack per day) - Reported1.5[facility] ClinicStart: 30-02-3811Yiyuwha use and exposureSmokeless tobacco non-user [facility]: 48-51-5507Vznfgdy intakeNot AskedSheltering Arms Hospitaltart: 53-38-2923Cbn Assigned At BirthNot on fileOhio State East Hospital Functional Status WafhEuasxtesipAzypweMvljjhgn48-16-0435Rnhcdxoukn StatusN/AExec[facility] Iozvgbyx70-07-6604Bmb you deaf, or do you have serious difficulty hearingYes 06/10/2014 9:10 AM Josefina Davidson RN Yes [place] [facility] HospitalPtjaxm44-34-5670Mmv you blind, or do you have serious difficulty seeing, even when wearing glassesNo 06/10/2014 9:10 AM Josefina Davidson RN No [facility] HospitalTqbzgs23-36-9455Ic you have serious difficulty walking or climbing stairsYes 06/10/2014 9:10 AM Josefina Davidson RN YesOhio State East Hospital03-03-2015 Do you have difficulty dressing or bathingNo 06/10/2014 9:10 AM Josefina Davidson RN [facility] HospitalZtrnnu26-73-4500Mghxxlj of a physical, mental, or emotional condition, do you have difficulty doing errands alone such as visiting a physician's office or shoppingNo 06/10/2014 9:10 AM Josefina Davidson RN No [facility] Mental Status VyspTvgremidslEtpnfxPrycttzy62-39-3225Suuzype of a physical, mental, or emotional condition, do you have serious difficulty concentrating, remembering, or making decisionsNo 06/10/2014 9:10 AM Josefina Davidson RN [facility] Clinical Notes 03-18-2022 to 01-22-2025 Note Date & PwqaDkfsXhguxnlq72-12-4140 NoteSubjective Patient ID: Pablo Beckman is a 69 y.o. male who [...] in about 1 year (around 01/22/2026) for Recheck.[facility]04-10-2025 NoteCardiovascular Medicine [place] [facility] SUBJECTIVE Chief Complaint Patient presents with Coronary [...] cuts himself at work. 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 Patient states he get short of breath with exertion he denies chest pain. Patient would like to talk about possible stopping one of his blood thinners due to bruising. Review of Systems Cardiovascular: Positive for dyspnea on exertion. Hematologic/Lymphatic: Bruises/bleeds easily.[facility] 06-24-2024 Telephone encounter Note* Telephone Encounter - Kitty Bruner - 06/24/2024 12:58 PM EDT Pablo is scheduled for his 1 year follow up on 06/18/24 at 4:30. His lab order has been faxed to [facility]. Kitty B PSS [facility]03-17-2025 Miscellaneous Notes* Telephone Encounter - Kitty Bruner - 06/24/2024 12:58 PM EDT Pablo is scheduled for his 1 year follow up on 06/18/24 at 4:30. His lab order has been faxed to [facility]. Kitty B PSS * Telephone Encounter - Josefian Ring RN - 06/20/2024 11:16 AM EDT GAYLE- please sign order. Josefina Ring RN * Telephone Encounter - Bel Harrison - 06/20/2024 11:06 AM EDT Appointment scheduled in 1 year, will need to fax PSA order to [place] when available. * Telephone Encounter - Josefina Ring RN - 06/20/2024 9:58 AM EDT Images from the original note were not included. Message Received: 2 days ago Quinton Williamson MD P [facility] Rad Nurse [place]; Josefina Mulligan One year with psa documented in this encounterOhio State East Hospital03-13-2025 Telephone encounter Note * Telephone Encounter - Josefina Ring RN - 06/20/2024 11:16 AM EDT GAYLE- please sign order. Josefina Ring RN [facility]03-13-2025 Telephone encounter Note* Telephone Encounter - Bel Harrison - 06/20/2024 11:06 AM EDT Appointment scheduled in 1 year, will need to fax PSA order to [place] when available. [facility]03-13-2025 Telephone encounter Note* Telephone Encounter - Josefina Ring, TOOTIE - 06/20/2024 9:58 AM EDT Images from the original note were not included. Message Received: 2 days ago Quinton Williamson MD P [facility] Nurse [place]; Josefina Mulligan One year with psa [facility]03-11-2025 NoteHNO ID: [id number] Author: Quinton WILLIAMSON MD Service: ? Author Type: Physician Type: [...] 1 year. Total Time Spent: 10minutes Quinton Williamson [facility]03-11-2025 History of Present illness Narrative* Quinton Williamson MD - 06/18/2024 1:18 PM EDT AMBULATORY TELEPHONE VISIT Pablo Beckman has consented [...] 1 year. Total Time Spent: 10minutes Quinton Williamson MD documented in this encounterOhio State East Hospital03-03-2025 Hospital Discharge instructions Patient Education 06/10/2024 13:19:53 Hematuria, Adult Hematuria, Adult Hematuria is blood in the urine. Blood may be visible in the urine, or it may be identified with a test. This condition can be caused by infections of the bladder, urethra, kidney, or prostate. Otherpossible causes include: Kidney stones. Cancer of the [...] blood in your urine, even if it ispainless or the blood stops without treatment. Blood in the urine, when it happens and then stops and then happens again, can be a symptom of a very serious condition, including cancer. There is no pain in the initial stages of many urinary cancers. Follow these instructions at home: Medicines Take qhbp-fhn-jgdtwsc and prescription medicines only as told by your health care provider. If you were prescribed an antibiotic medicine, take it as told by your health care provider. Do notstop taking the antibiotic even if you start to feel better. Eating and drinking Drink enough fluid to keep your urine pale yellow. It is recommended that you drink 3 4 quarts (2.83.8 L) a day. If you have been diagnosed with an infection, drinking cranberry juice in addition tolarge amounts of water is recommended. Avoid caffeine, [...] about any blood in your urine, even ifit is painless or the blood stops without treatment. Take ffwy-isb-obwubzp and prescription medicines only as told by your health care provider. Drink enough fluid to keep your urine pale yellow. This information is not intended to replace advice given to you by your health care provider. Make sure you discuss any questions you have with your health care provider. Document Revised: 11/25/2020 Document Reviewed: 11/25/2020 [employer] Patient Education 2023 [employer]. Follow Up Care 06/07/2024 09:57:37 With:[facility] [place] Address: [facility] [address] 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 Blood may be visible in the urine, or it may be identified with a test. This condition can be caused by infections of the bladder, urethra, kidney, or prostate. Otherpossible causes include: ??? Kidney stones. ??? Cancer [...] blood in your urine, even if it ispainless or the blood stops without treatment. Blood in the urine, when it happens and then stops and then happens again, can be a symptom of a very serious condition, including cancer. There is no pain in the initial stages of many urinary cancers. Follow these instructions at home: Medicines ??? Take qiss-sac-kbmhghz and prescription medicines only as told by your health care provider. ??? If you were prescribed an antibiotic medicine, take it as told by your health care provider. Donot stop taking the antibiotic even if you [...] kidney stone, follow your health care provider's instructionsabout straining your urine to catch the stone. [...] Tell your health care provider about any changesor any new symptoms. ??? It is up [...] the blood stops without treatment. ??? Take axka-tsj-ndwnvuw and prescription medicines only as told by your health care provider. ??? Drink enough fluid to keep your urine pale yellow. This information is not intended to replace advice given to you by your health care provider. Make sure you discuss any questions you have with your health care provider. Document Revised: 11/25/2020 Document Reviewed: 11/25/2020 [employer] Patient Education ? 2023 [employer].[facility] 06-03-2024 NoteCardiology Clinic Note Chief Complaint: No chief complaint on file. HPI: Pablo Beckman is a 68 y.o. male who has a past medical history of Aneurysm, Atrial fibrillation ([facility]), Coronary artery disease, Diastolic dysfunction, Hyperlipidemia, Hypertension, Left ventricular systolic dysfunction, and NSVT (nonsustained ventricular tachycardia) ([facility]). that is referred to Cardiology clinic for evaluation of abnormal stress test. Patient here per Dr. Chance for abnormal stress test. Patient states it was ordered for AND[place]. Says he gets very SOB with very minimal exertion. Denies chest pain. Says he's only taking Eliquis once daily because when he cut himself it looked like water . He said he made Dr. Chance aware of this last year at his wellness visit and he was okay with it. Patient had routine labs with lipid profile last month. ROS 10 point ROS is performed and is negative unless otherwise specified in HPI Past Medical History He has a past medical history of Aneurysm, Atrial fibrillation ([facility]), Coronary artery disease, Diastolic dysfunction, Hyperlipidemia, Hypertension, Left ventricular systolic dysfunction, and NSVT (nonsustained ventricular tachycardia) ([facility]). Surgical History He has a past surgical [...] Value Ventricular Rate 62 Atrial Rate 62 SC Interval 110 QRS DURATION 90 QT Interval 446 QTC CALCULATION(BAZETT) 452 P Errol 4 R-Errol 4 T Wave Errol -11 Impression Sinus rhythm Since previous tracing [...] Cardiac Cath Report 06/19/2024 Performing Physicians: -Alexi Medina MD Assistants: Dr Kimmie Narvaez, Dr Lamin Wan Procedures Performed: -Bilateral selective coronary angiography -Ultrasound guided vascular access -Conscious sedation -PCI of 75% stenosis in OM1. This was successfully reduced to 0% stenosis following balloon angioplasty and PAULO placement Final Impressions: -There is 75% stenosis in proximal portion of t (more content not included)... [facility]03-13-2024 Miscellaneous Notes* Telephone Encounter - Latisha RojasDEVIKA - 06/21/2023 2:40 PM EDT Melvina called to reschedule Mr. Beckman follow up and the call was transferred to nursing to review most recent PSA results. 06/13/23 PSA <0.13 previous 06/02/22 PSA 0.52. Patient is wondering if he needs to have a visit with Dr. Williamson this year or can it be rescheduled for one year since PSA results are good. Please advise. Latisha Rojas RN documented in [facility] Miscellaneous Notes* Telephone Encounter - Josefina Ring RN - 05/23/2023 9:43 AM EST PT called in to schedule follow up for this year. He will also need PSA. Please sign pended order and we will fax to [facility]. Josefina Ring RN documented in this encounterOhio [facility] Hospital03-16-2023 History of Present illness Narrative* G Isidoro Williamson MD - 06/23/2022 10:11 AM EDT AMBULATORY TELEPHONE VISIT Pablo Beckman has consented [...] year. Total Time Spent: 6 minutes Quinton Williamson MD documented in this encounterOhio [facility] Hospital03-16-2023 Miscellaneous Notes* Telephone Encounter - Kwaku Rasmussen - 06/23/2022 10:04 AM EDT Appointment has been changed in Epic. Kwaku Rasmussen * Telephone Encounter - Josefina Ring RN - 06/23/2022 9:[address] Williamson, mark to switch to phone visit. Patient was notified. PSS- please change in [facility]. Josefina Ring RN * Telephone Encounter - Latisha Rojas LPN - 06/22/2022 12:36 PM EDT Pablo called wondering if his follow up appointment can be switched to a phone visit tomorrow. Please advise. Latisha Rojas LPN documented in this encounterOhio [facility]12-09-2022 NoteOPERATIVE NOTE OPERATION DATE: 03/18/2022 PREOPERATIVE DIAGNOSIS: Iron deficiency anemia, loose stools, positive occult blood in the stool, as well as positive H. pylori. POSTOPERATIVE DIAGNOSIS: Mild antral gastritis, sigmoid diverticulosis. PROCEDURE: EGD with antral biopsy and colonoscopy to cecum. SURGEON: Patricio Obrien M.D. ANESTHESIA: Monitored anesthesia care. ESTIMATED BLOOD [...] recovery room in good condition. CC: Guillermo Chance M.D.[facility] No data available for this section General Surgery [place] Evaluation note* Diagnosis Malignant neoplasm of prostate (HCC)- Primary Malignant neoplasm of prostate documented in this encounter [facility] note* Diagnosis Malignant neoplasm of prostate (HCC)- Primary Malignant neoplasm of prostate documented in this encounter [facility] note* Diagnosis Malignant neoplasm of prostate (HCC)- Primary Malignant neoplasm of prostate documented in this encounter [facility] note* Diagnosis Personal history of prostate cancer- Primary Personal history of malignant neoplasm of prostate documented in this encounter [facility] note* Diagnosis Personal history of prostate cancer- Primary Personal history of malignant neoplasm of prostate documented in this encounter [facility] Discharge instructions No data available for this section General Surgery [place] Progress note No data available for this section General Surgery [place] Summary Purpose Family History No Family History [...] and content) DATE CREATED AUTHOR 04/15/2021 [facility] DATE CREATED AUTHOR AUTHOR'S ORGANIZ ATION 08/08/2022 [facility] DATE CREATED AUTHOR AUTHOR'S ORGANIZ ATION 06/16/2024 [facility] DATE CREATED AUTHOR AUTHOR'S ORGANIZ ATION 06/26/2024 [facility] DATE CREATED AUTHOR AUTHOR'S ORGANIZ ATION 01/24/2025 [facility] Patient Care team informatio n (unrecognized section and content) Team MemberRelationshipSpecialtyStart DateEnd Date Guillermo Chance MD PCP - Nbyohcm11/17/09Team MemberRelationshipSpecialtyStart DateEnd Date Guillermo Chance MD PCP - Opqzcpy30/17/09Team MemberRelationshipSpecialtyStart DateEnd Date Guillermo Chance MD [facility] - Ucucnpd72/17/09Team MemberRelationshipSpecialtyStart DateEnd Date Guillermo Chance MD [facility] - Xqwtyte69/17/09 Source Comments (unrecognize d section and content) In the event this informatio n is protected by the Federal Confidentiality of Alcohol and Drug Abuse Patient Records regulations: The Federal rules restrict any use of the information to criminally investigate or prosecute any alcohol or drug abuse patient.[facility] HospitalIn the event this information is protected by the Federal Confidentiality of Alcohol and Drug Abuse Patient Records regulations: The Federal rules restrict any use of the information to criminally investigate or prosecute any alcohol or drug abuse patient.[facility] HospitalIn the event this information is protected by the Federal Confidentiality of Alcohol and Drug Abuse Patient Records regulations: The Federal rules restrict any use of the information to criminally investigate or prosecute any alcohol or drug abuse patient.[facility] HospitalIn the event this information is protected by the Federal Confidentiality of Alcohol and Drug Abuse Patient Records regulations: The Federal rules restrict any use of the information to criminally investigate or prosecute any alcohol or drug abuse patient.[facility] HospitalIn the event this information is protected by the Federal Confidentiality of Alcohol and Drug Abuse Patient Records regulations: The Federal rules restrict any use of the information to criminally investigate or prosecute any alcohol or drug abuse patient.[facility] HospitalIn the event this information is protected by the Federal Confidentiality of Alcohol and Drug Abuse Patient Records regulations: The Federal rules restrict any use of the information to criminally investigate or prosecute any alcohol or drug abuse patient.[facility] Reason for Visit (unrecogniz ed section and content) ReasonCommentsPatient QuestionReasonCommentsEstablished PatientSpecialty Diagnoses / ProceduresReferred By ContactReferred To ContactRadiation Oncology / RADIATION ONCOLOGY Diagnoses Follow-up examination 1 yr follow up, psa at [place] Procedures OFFICE/OUTPATIENT ESTABLISHED MOD MDM 30-39 MIN EST PATIENT Quinton Williamson MD [address] [place] [address] [place] [address] Quinton Williamson MD [address] [place] [address] [place] [address] Referral IDStatusReasonStart DateExpiration DateVisits RequestedVisits [id number] AppointmentReason CommentsResultsAppointment FOR RECORDS PERTAINING TO PATIENTS WHO ARE [...] BE BASED ON THE PRIMARY CLINICAL RECORDS. [facility] [employer] [facility]. provides no warranty or guarantee of the accuracy or completeness of information in this document.
--- OUTSIDE RECORDS SUMMARY | 2025-01-28 07:43 | XMS_ITS | Clinical Summary ---
Author Organization [facility] Address [address] [place] [address], [address] [place] [address] Care Team Providers Care Molder Vacuum Name Role Phone Unavailable Primary Care Provider Unavailabl e Social History Tobacco UseTypesPacks/DayYears UsedDateSmoking Tobacco: Never AssessedSex and Gender InformationValueDate RecordedSex Assigned at BirthNot on fileLegal Sex Male05/22/2012 11:48 PM ESTGender IdentityNot on fileSexual OrientationNot on file Plan of Treatment Not on file
--- OUTSIDE RECORDS SUMMARY | 2025-01-28 07:44 | XMS_ITS ---
Author Organization [facility] Address [address] [place] [address] Care Team Providers Care Crime Scene Technician Name Role Phone Guillermo Heard MD Primary Care Provider [phone] Active Problems ProblemNoted DateDiagnosed DateAcquired spboxkhlyoqjvykpm34/10/2025hest pain 07/18/2024Diverticular disease of colon07/18/20243835Crmacuiia22/10/2025Lumbar radicular pain07/18/2024Malignant tumor of tgxjorvw78/10/2025Osteoarthritis of knee07/18/2024Other specified disorders of kidney and akfcgg0807/18/2024Kidney rrssts8807/18/20243168Wsyewi14/24/2025ile reflux xbajxupve37/24/2025MI 28.0-28.9,adult06/03/2024PH (benign prostatic hyperplasia)06/03/2024ataract 06/03/2024hange in bowel ltekll8606/03/20247688Qgpjxvlowzwaoo88/24/2025Dyspepsia 06/03/2024Gout06/03/2024Helicobacter pylori ab+06/03/2024Helicobacter pylori dcbluqqnc75/24/2025History of retinal rtwqhcwtab22/24/2025Iron deficiency anemia 06/03/2024Long term current use of uvbpntzqiimij39/24/2025Macular puckering 06/03/20245093Pmwihn72/24/2025Occult blood positive stool06/03/2024Paresthesia 06/03/2024Rectal pjoqjygbdz30/24/2025Sleep apnea06/03/20246563Zxlhqa18/24/2025 Umbilical oxzqny3506/03/2024Unintentional weight loss06/03/2024bnormal stress test06/03/2024DOE (dyspnea on exertion)06/03/2024Mixed izzhtnmwjfkpxv26/30/2024 Aneurysm of ascending aorta03/17/2021iastolic nzvmvgylctn61/08/2021Hypertensive orylamss52/08/2021eft ventricular systolic droieikpgjm17/08/2021aroxysmal atrial qfccwmnrkmen06/19/2021adiotherapy follow-up06/10/2014Personal history of prostate dhthlp8610/31/2013NSVT (nonsustained ventricular tachycardia)Coronary artery disease Current Treatment and Therapy Plans No current plan information found. Past Treatment and Therapy Plans No past plan information found. Lifetime Dose Tracking * ChemicalLifetime DoseAutomatic EntryManual EntryFluoro Time10.2 minutes0 wqbiufy06.2 minutesAir Kerma1,363 mGy0 mGy1,363 mGy
--- OUTSIDE RECORDS SUMMARY | 2025-01-28 07:44 | XMS_ITS | Clinical Summary ---
Author Organization [facility] Address [address] [place] [address] Care Team Providers Care Ortho Assistant Name Role Phone Guillermo Heard MD Primary Care Provider [phone] Allergies No known active allergies Medications MedicationSigDispense QuantityRefillsLast FilledStart DateEnd DateStatus apixaban (Eliquis) 5 mg tablet Take 1 tablet by mouth once daily as directed.Active ferrous sulfate 325 (65 Fe) MG tablet Take 1 tablet by mouth in the morning and at bedtime.Active metoprolol tartrate 75 mg tablet Take by mouth in the morning and at bedtime.Active furosemide (Lasix) 20 mg tablet Indications:Paroxysmal atrial fibrillation (CMS/HCC)TAKE 1 TABLET(20 MG) BY MOUTH IN THE MORNING 90 tablet ctive Additional Information Patient not taking.Reported on 01/22/2025 pantoprazole (ProtoNix) 40 mg EC tablet Take 40 mg by mouth in the evening.06/13/2023ctive multivitamin with iron-minerals 9 mg iron/15 mL liquid Take by mouth in the morning.Active meclizine (Antivert) 25 mg tablet Take 25 mg by mouth if needed in the morning, at noon, and at bedtime.06/01/2024 Active aspirin 81 mg chewable tablet Indications:Abnormal stress test,Angina pectoris, unstable (CMS/HCC)Chew 1 tablet (81 mg) in the morning. 90 tablet 5006/19/2025ctive Additional Information Patient not taking.Reported on 01/22/2025 clopidogrel (Plavix) 75 mg tablet Indications:Abnormal stress test,Angina pectoris, unstable (CMS/HCC)Take 1 tablet (75 mg) by mouth in the morning. 90 tablet 506Active Additional Information Patient not taking.Reported on 01/22/2025 rosuvastatin (Crestor) 20 mg tablet Indications:Hyperlipidemia, unspecified hyperlipidemia typeTAKE 1 TABLET(20 MG) BY MOUTH AT BEDTIME 90 tablet tive furosemide (Lasix) 20 mg tablet Indications:Edema, unspecified typeTake 1 tablet (20 mg) by mouth two times daily. 180 tablet /ctive Active Problems ProblemNoted DateDiagnosed DateAcquired yphllqjiogfdimgyv88/10/2025hest pain 07/18/2024Diverticular disease of colon07/18/20247583Xwofimmls05/10/2025Lumbar radicular pain07/18/2024Malignant tumor of tdzrohoa26/10/2025Osteoarthritis of knee07/18/2024Other specified disorders of kidney and gwzqxq3407/18/2024Kidney ibwmvw9807/18/20244308Abcesn72/24/2025ile reflux zyvpluenp96/24/2025MI 28.0-28.9,adult06/03/2024PH (benign prostatic hyperplasia)06/03/2024ataract 06/03/2024hange in bowel dzkach0006/03/20243610Bjsjxebqxjbdjg73/24/2025Dyspepsia 06/03/2024Gout06/03/2024Helicobacter pylori ab+06/03/2024Helicobacter pylori azredyxnr57/24/2025History of retinal amoqprsjxa48/24/2025Iron deficiency anemia 06/03/2024Long term current use of jmeedubwdcuht96/24/2025Macular puckering 06/03/20247989Kknjzk18/24/2025Occult blood positive stool06/03/2024Paresthesia 06/03/2024Rectal rtzdiskijt59/24/2025Sleep apnea06/03/20243544Lypbtm70/24/2025 Umbilical xwzyai2506/03/2024Unintentional weight loss06/03/2024bnormal stress test06/03/2024DOE (dyspnea on exertion)06/03/2024Mixed ycnmzqyrgszffw05/30/2024 Aneurysm of ascending aorta03/17/2021iastolic nihxlkaikuj46/08/2021Hypertensive inmidiyx00/08/2021eft ventricular systolic aldbdxaborb90/08/2021aroxysmal atrial vradegeiyyhu77/19/2021Radiotherapy follow-up06/10/2014Personal history of prostate uxtaiw3810/31/2013NSVT (nonsustained ventricular tachycardia)Coronary artery disease Encounters DateTypeDepartmentCare WzghJnuduecirap14/15/2025 9:40 AM EDTOffice Visit [facility] [address] [place] [facility] [address] Anjel Corona MD Aneurysm of ascending aorta without rupture (Primary Dx); Paroxysmal atrial fibrillation (CMS/HCC)01/22/2025Orders Only [facility] [address] [place] [facility] [place] [address] Maggie Viera MA Aneurysm of ascending aorta without rupture (Primary Dx)01/22/2025Orders Only [facility] [address] [place] [facility] [place] [address] Maggie Viera MA Paroxysmal atrial fibrillation (CMS/HCC) (Primary Dx)from Last 3 Months Family History Medical HistoryRelationNameCommentsParkinsonismFatherStrokeMotherRelationName StatusCommentsFatherDeceasedMotherDeceasedSisterAlive Social History Tobacco UseTypesPacks/DayYears UsedDateSmoking Tobacco: FormerCigarettes Smokeless Tobacco: Never Tobacco Cessation:Counseling Given: Not Answered Alcohol UseStandard Drinks/WeekCommentsYes0 (1 standard drink = 0.6 oz pure alcohol)OCCASIONALUT Safety & EnvironmentAnswerDate RecordedFear of Current or Ex-PartnerNot on file06/01/2023Emotionally AbusedNot on file06/01/2023hysically AbusedNot on file06/01/2023Sexually AbusedNot on 06/01/2023hysically or Sexually AbusedNot on file06/01/2023Sex and Gender InformationValueDate Recorded Sex Assigned at FvcqhAqsd91/10/2025 11:07 AM EDTLegal CshAegi1210/07/2021 12:40 AM EDTGender VmtpddyfWwem04/10/2025 11:07 AM EDTSexual OrientationHeterosexual or Lesjjexd74/10/2025 11:07 AM EDT Last Filed Vital Signs Vital SignReadingTime TakenCommentsBlood Pxdhacdc975/8401/22/2025 9:38 AM EDT Hfqhe281401/22/2025 9:38 AM EDTTemperature--Respiratory Vvkr089906/19/2024 3:45 PM EDTOxygen Zhtbfazdfq86%07/18/2024 10:28 AM EDTInhaled Oxygen Concentration-- Zinwzt44.5 kg (204 lb)01/22/2025 9:38 AM ECGFrcmzj861.7 cm (5' 8 )01/22/2025 9:38 AM EDTBody Mass Index31.021 9:38 AM EDT Plan of Treatment Health MaintenanceDue DateLast DoneCommentsCT Imkehujflfvi04/13/1957FIT-DNA 1956FIT1956FOBT1956Medicare Annual Wellness (AWV)1955 Lhqlmnwrtksnq58/13/1957Depression Ljoqfuvbx75/13/1969Adult Sihqzjy1710/20/1978 Zoster Vaccines (1 of 2)2006Fall Risk Btxmtlbri12/13/2022Pneumococcal Vaccine: 50+ Years (2 of 2 - PPSV23, PCV20, or PCV21)/2COVID- 19 Vaccine (3 - season)504/, 07/09/2020Influenza Vaccine (#1)9518Xkwxpxddexh14/09/203212/12/2021, 10/17/2018, 09/11/2009Colorectal Cancer Vswnntcfu48/09/2032HIB VaccinesAged OutNo longer eligible based on patient's age to complete this topicHPV VaccinesAged OutNo longer eligible based on patient's age to complete this topicIPV VaccinesAged OutNo longer eligible based on patient's age to complete this topicMeningococcal B VaccineAged OutNo longer eligible based on patient's age to complete this topicMeningococcal VaccineAged OutNo longer eligible based on patient's age to complete this topic Rotavirus VaccinesAged OutNo longer eligible based on patient's age to complete this topic Medical Devices ImplantedTypeAreaManufacturerDevice IdentifierShelf Expiration DateModel / Serial / Ellen Key Mr 3.50 X 20 - [id number] Implanted:Qty: 1 on 06/19/2024 by [facility]sey [facility]eks [facility] Eluting StentLeft: [employer] [id number] / / [id number] Insurance * Guarantor: Dillon Beckman TypeRelation to PatientDate of BirthPhone Billing AddressPersonal/CbyxxkXnzq85/13/1956 [address] [address] Care Teams Team MemberRelationshipSpecialtyStart DateEnd Date Guillermo Heard MD [address] [place] [address] [facility] - General12/11/21
--- OUTSIDE RECORDS SUMMARY | 2025-01-28 07:44 | XMS_ITS | Patient Health Record ---
Author Organization [facility] in [place] Address [address] [place] [address] Care Team Providers Care Traffic Law Attorney Name Role Phone Gareth Heard Primary Care Provider Allergies No Known Allergies Results Component Value Reference Range Notes CBC AUTO DIFF Reviewed date:02/04/2024 10:33:40 PM Interpretation: Performing Lab: Notes/Report: [place] , White Blood Count 8.7 4.0-11.0 10 3/uL Red Blood Count2.954.70-6.10 10 6/uLHemoglobin9.514.0-18.0 g/dXXmhseiuhab57.9 42.0-54.0 %Mean Corpuscular Kgltgu83.080.0-94.0 fLMean Corpuscular Hemoglobin 32.225.9-34.0 pgMean Corpuscular HGB Conc32.929.9-35.2 g/dLRed Cell Distribution Width14.111.0-15.0 %Platelet Uqoqj588700-716 10 3/uLMean Platelet Volume9.29.5- 13.5 fLNeutrophils Percent Auto72.343.0-75.0 %Lymphocytes Percent Auto12.320.5- 60.0 %Monocytes Percent Auto14.61.7-12.0 %Eosinophils Percent Auto0.20.9-7.0 % Basophils Percent Auto0.10.2-2.0 %Immature Granulocytes Pct Auto0.50.0-0.5 % Neutrophils Absolute Auto6.31.4-6.5 10 3/uLLymphocytes Absolute Auto1.11.2-3.8 10 3/uLMonocytes Absolute Auto1.30.3-0.8 10 3/uLEosinophils Absolute Auto0.00.0- 0.7 10 3/uLBasophils Absolute Auto0.00.0-0.1 10 3/uLImmature Granulocytes Abs Auto0.040.00-0.03 10 3/uLPerforming Lab:see noteML - [place] LB MAGNESIUM Reviewed date:02/04/2024 10:33:40 PM Interpretation: Performing Lab: Notes/Report: [facility] ,Magnesium2.51.8-2.4 mg/dLPerforming Lab:see note - [place] LB PROF CHEM 8 (BAS METB) Reviewed date:02/04/2024 10:33:40 PM Interpretation: Performing Lab: Notes/Report: [facility] ,Srptgj145732-941 mmol/LPotassium4.13.5-5.1 mmol/MHnpdxbsd24026-420 mmol/LCarbon Fbwjfiw71.321.0-32.0 mmol/LAnion Gap14.2Iyuqrca21545-353 mg/dLBlood Urea Yicbmnjc85.07.0-18.0 mg/dLCreatinine1.260.70-1.30 mg/dLEstimated GFR ( Diann>60>=60 mL/min/1.73m 2Estimated GFR (Non- Ame57>=60 mL/min/1.73m 2 BUN Creatinine Ratio16.8Qlabnpr4.58.5-10.1 mg/dLPerforming Lab:see noteML - [place] LBCT abdomen pelvis w con Reviewed date:02/04/2024 10:33:40 PM Interpretation: Performing Lab: Notes/Report: Source Facility: [facility] [place] [address] [place] [address] CT Scan Report Signed Patient: PABLO BECKMAN MR#: [id number] : 1955 Acct:[id number] Age/Sex: 68 / M ADM Date: 02/03/24 Loc: ER Attending Dr: Ordering Physician: Mitul Vaughn Date of Service: 02/03/24 Procedure(s): CT abdomen pelvis w con Accession Number(s): [id number] cc: Lv Heard M.D. [address] [address] Patient Name: PABLO BECKMAN MRN: [id number]:[id number] date: 1955 Sex: M Assigned Patient Location: ER Current Patient Location: ER Accession/Order Number: [id number] Exam Date: 02/03/2024 21:51 Report Date: 02/04/2024 01:00 At the request of: MITUL VAUGHN Procedure: CT abdomen pelvis w con CT OF THE ABDOMEN AND PELVIS WITH CONTRAST: 02/03/2024 9:51 PM EDT CLINICAL HISTORY: Lower GI bleed. COMPARISONS: None. TECHNIQUE: Thin section axial CT images were obtained from the lung bases to the pubis symphysis. This CT exam was performed using one or more of the following dose reduction techniques: Automated exposure control, adjustment of the mA and/or kV according to patient size, or use of iterative reconstruction technique. Thin section coronal and sagittal images were reconstructed from the axial data set. All images were reviewed and interpreted. CONTRAST: Intravenous contrast was administered. Type and amount is documented at the local institution. FINDINGS: LUNG BASES: No consolidation or pleural fluid. LIVER: Normal. GALLBLADDER: Normal. BILIARY TREE: No ductal dilatation. PANCREAS: Normal. SPLEEN: Normal. ADRENALS: Normal. KIDNEYS: Normal, without urolithiasis or hydronephrosis. URINARY BLADDER: Grossly unremarkable. PELVIC STRUCTURES: Changes of prior radiation therapy to prostate with implanted radiotherapy seeds. BOWEL: Note is made of the duodenal diverticulum arising from second portion extending towards head of pancreas measuring proximal a 2 x 2 centimeter. GE junction stomach and duodenum otherwise normal. Remaining small bowel and large bowel loops are normal in appearance. No evidence of obstruction, gross mass, or inflammatory change. There is no significant diverticulosis. There is no evidence of diverticulitis. APPENDIX: No active disease with normal appendix. LYMPH NODES: No pathologically enlarged lymph nodes identified. PERITONEUM: No intraperitoneal free air. No free intraperitoneal fluid. MESENTERY: Unremarkable. RETROPERITONEUM: The retroperitoneum is unremarkable. AORTA: Normal in caliber. BODY WALL: No body wall mass. Small incidental fat-containing umbilical hernias. OSSEOUS STRUCTURES: Nothing significant. CT/CT abdomen pelvis w con IMPRESSION: 1. No abnormality to explain lower GI bleed. No acute process. 2. Duodenal diverticulum as discussed, otherwise unremarkable appearance of large and small bowel. No acute inflammatory changes or obstruction. Electronically authenticated by: KAMI AGUIRRE Date: 02/04/2024 01:00 Dictated By: Kami Aguirre D.O. Signed By: 02/04/24102 DD/ TD/TT: Byproducts Pump Operator:CT lumbar spine w con Reviewed date:02/04/2024 10:33:40 PM Interpretation: Performing Lab: Notes/Report: Source Facility: [place] [address] CT Scan Report Signed Patient: PABLO BECKMAN MR#: [id number] : 1955 Acct:[id number] Age/Sex: 68 / M ADM Date: 02/03/24 Loc: ER Attending Dr: Ordering Physician: Mitul Vaughn Date of Service: 02/03/24 Procedure(s): CT lumbar spine w con Accession Number(s): [id number] cc: Lv Heard M.D. [place] [address] Patient Name: PABLO BECKMAN MRN: [id number]:[id number] date: 1955 Sex: M Assigned Patient Location: ER Current Patient Location: ER Accession/Order Number: [id number] Exam Date: 02/03/2024 21:51 Report Date: 02/04/2024 00:18 At the request of: MITUL VAUGHN Procedure: CT lumbar spine w con EXAM: CT lumbar spine w con HISTORY: back pain COMPARISON: None. TECHNIQUE: Axial, sagittal and coronal images of the lumbar spine were created from source data obtained at the time of the CT abdomen and pelvis with intravenous contrast. FINDINGS: ALIGNMENT/BONY STRUCTURES: No CT evidence of an acute fracture, subluxation or loss of vertebral body height. There is multilevel loss of disc space and endplate osteophyte formation. CORD/CONUS: The cord and conus are poorly seen and not well evaluated on this CT. OTHER SPINAL FINDINGS: None. T12-L1: No disc protrusion, significant disc bulging or evidence of spinal canal stenosis. The neural foramina are patent. L1-L2: Mild disc bulging abuts the ventral thecal sac. No spinal canal stenosis. The neural foramina are patent. L2-L3: Disc bulging abuts the ventral thecal sac and encroaches fat within the inferior aspect of the neural foramen on the left. There is mild foraminal narrowing on the left at this level. No spinal canal stenosis. The neural foramen on the right is patent. L3-L4: Disc bulging flattens the ventral thecal sac. Facet degenerative change is seen. There is mild canal and left-sided foraminal narrowing. Moderate foraminal stenosis is present on the right. L4-L5: Disc bulging is eccentric and more pronounced laterally on the right at this level where there is associated endplate osteophyte. Disc material has no significant effect upon the thecal sac. Facet degenerative change is seen. There is moderate foraminal stenosis on the right. Mild foraminal narrowing is seen on the left. L5-S1: Disc bulging is again eccentric and more pronounced laterally where there is associated endplate osteophyte. Disc material abuts the ventral thecal sac. No spinal canal stenosis or mass effect upon the traversing S1 nerve roots. Facet degenerative change is noted. There is moderate to severe foraminal stenosis. NON SPINAL FINDINGS: Reported separately on the concurrently performed CT abdomen and pelvis. CT/CT lumbar spine w con IMPRESSION: Lumbar spondylosis with associated multilevel disc bulging. Electronically authenticated by: ERIC OSMAN Date: 02/04/2024 00:18 Dictated By: Eric Osman M.D. Signed By: 02/04/24 0021 DD/ 0018 TD/TT: Byproducts Pump Operator:CBC AUTO DIFF Reviewed date:04/21/2024 10:20:03 AM Interpretation: Performing Lab: Notes/Report: [facility] ,White Blood Count5.64.0-11.0 10 3/uLRed Blood Count3.094.70-6.10 10 6/uL Wmzvtvuxez02.014.0-18.0 g/tSZmjoierjxc57.342.0-54.0 %Mean Corpuscular Dpdhws99.1 80.0-94.0 fLMean Corpuscular Dqljubhrui44.425.9-34.0 pgMean Corpuscular HGB Conc 33.029.9-35.2 g/dLRed Cell Distribution Width14.511.0-15.0 %Platelet Lpjqn384 150-450 10 3/uLMean Platelet Volume9.19.5-13.5 fLNeutrophils Percent Auto47.9 43.0-75.0 %Lymphocytes Percent Auto28.720.5-60.0 %Monocytes Percent Auto20.91.7- 12.0 %Eosinophils Percent Auto2.10.9-7.0 %Basophils Percent Auto0.00.2-2.0 % Immature Granulocytes Pct Auto0.40.0-0.5 %Neutrophils Absolute Auto2.71.4-6.5 10 3/uLLymphocytes Absolute Auto1.61.2-3.8 10 3/uLMonocytes Absolute Auto1.20.3-0.8 10 3/uLEosinophils Absolute Auto0.10.0-0.7 10 3/uLBasophils Absolute Auto0.00.0- 0.1 10 3/uLImmature Granulocytes Abs Auto0.020.00-0.03 10 3/uLPerforming Lab:see noteML - [facility] LBINFLUENZA A AND B AG Reviewed date:04/21/2024 10:20:03 AM Interpretation: Performing Lab: Notes/Report: [facility] ,Influenza Virus A AntigenPositive NOTE: Live attenuated influenza vaccine viruses can cause a positive result for a rapid influenza diagnostic test if administered up to 7 days prior to rapid testing. Influenza Virus B AntigenNegative Negative for Flu B protein antigen. Infection due to Flu B cannot be ruled out. Flu B antigen in the sample may be below the detection limit of the test. Performing Lab:see noteML - [facility] LBPROF CHEM 8 (BAS METB) Reviewed date:04/21/2024 10:20:03 AM Interpretation: Performing Lab: Notes/Report: [facility] ,Mogsno110719-725 mmol/LPotassium3.83.5-5.1 mmol/DPaidjlgq65375-717 mmol/LCarbon Mvhtqsz34.621.0-32.0 mmol/LAnion Gap16.7Qqmrpsa31746-621 mg/dLBlood Urea Qseggces25.07.0-18.0 mg/dLCreatinine1.390.70-1.30 mg/dLEstimated GFR ( Diann>60>=60 mL/min/1.73m 2Estimated GFR (Non- Ame51>=60 mL/min/1.73m 2 BUN Creatinine Ratio15.5Oktzsuk7.88.5-10.1 mg/dLPerforming Lab:see noteML - [place] XCCKSO-VdM-1 Ag* Reviewed date:04/21/2024 10:20:03 AM Interpretation: Performing Lab: Notes/Report: [facility] ,SARS-CoV-2 AgNEGATIVENEGATIVE This test has not been FDA cleared or approved, but has been authorized by the FDA under an Emergency Use Authorization (EUA) for use by authorized laboratories certified under CLIA that meet the requirements to perform moderate or high complexity testing. This test has been authorized only for the detection of proteins from SARS-CoV-2, not for any other viruses or pathogens. The emergency use of this test is authorized for the duration of the declaration that circumstances exist justifying the authorization of emergency use of in vitro diagnostic tests for detection and/or diagnosis of Covid-19 under section 564(b)(1) of the Act, 21 U.S.C. 360bbb-3(b)(1), unless the declaration is terminated or authorization is revoked sooner. Performing Lab:see noteML - [place] LBECG 12 lead Reviewed date:04/22/2024 08:03:33 PM Interpretation: Performing Lab: Notes/Report: Source Facility: [facility]-[address] [place] [address] [place] [address] Electrocardiograph Report Signed Patient: PABLO BECKMAN MR#: [id number] : 1955 Acct:[id number] Age/Sex: 68 / M ADM Date: 04/21/24 Loc: ER Attending Dr: Ordering Physician: Monae Henry M.D. 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 Signed By: 04/22/24 0810 DD/ 0906 TD/TT: Byproducts Pump Operator:XR chest 1V Reviewed date:04/21/2024 05:26:11 PM Interpretation: Performing Lab: Notes/Report: Source Facility: [place] [address] XRay Report Signed Patient: PABLO BECKMAN MR#: [id number] : 1955 Acct:[id number] Age/Sex: 68 / M ADM Date: 04/21/24 Loc: ER Attending Dr: Ordering Physician: Monae Henry M.D. Date of Service: 04/21/24 Procedure(s): XR chest 1V Accession Number(s): [id number] cc: Lv Heard M.D.; Monae Henry M.D. [place] [address] Patient Name: PABLO BECKMAN MRN: [facility]:[id number] date: 1955 Sex: M Assigned Patient Location: ED.MAIN Current Patient Location: ED.MAIN Accession/Order Number: [id number] Exam Date: 04/21/2024 09:58 Report Date: 04/21/2024 10:56 At the request of: MONAE HENRY Procedure: XR chest 1V Single view chest x-ray, 04/21/2024. HISTORY: Shortness of breath. COMPARISON: Chest x-ray, 03/09/2022. FINDINGS: Single view of the chest was obtained. Heart size appears normal. No pleural effusion. No pneumothorax. No pulmonary edema. No evidence of pneumonia. XR/XR chest 1V IMPRESSION: Lungs are clear. No evidence of pneumonia. No pulmonary edema. Electronically authenticated by: CASIMIRO FERNANDEZ Date: 04/21/2024 10:56 Dictated By: Casimiro Fernandez M.D. Signed By: 04/21/24 1058 DD/ 1056 TD/TT: Byproducts Pump Operator:SOPHIE T3 Reviewed date:05/08/2024 08:54:32 PM Interpretation: Performing Lab: Notes/Report: [place] Sophie T31.482.18-3.98 pg/mLPerforming Lab:see noteML - [facility] LB LIPID PROFILE Reviewed date:05/08/2024 08:54:32 PM Interpretation: Performing Lab: Notes/Report: [place] ,Ehwwmmpbwkegr63<=150 mg/lDTvpqnsawabe752<=200 mg/dLHDL Tdxptqrhphr3226-38 mg/dL > or =60 mg/dl - LOW CARDIOVASCULAR RISK <40 mg/dl - HIGH CARDIOVASCULAR RISK LDL Cholesterol Voudhyveea33.8 <100 mg/dl OPTIMAL 100-129 mg/dl NEAR OR ABOVE OPTIMAL 130-159 mg/dl BORDERLINE HIGH 160-189 mg/dl HIGH >190 mg/dl VERY HIGH VLDL OHMWQCRXYON14.2Chol HDL Ratio2.0 3.3 - 4.4 LOW RISK 4.4 - 7.1 AVERAGE RISK 7.1 - 11.0 MODERATE RISK >11.0 HIGH RISK Performing Lab:see noteML - [place] LBPROF 14(COMP METB) Reviewed date:05/08/2024 08:54:32 PM Interpretation: Performing Lab: Notes/Report: [facility] ,Frwcug437686-597 mmol/LPotassium3.93.5-5.1 mmol/XMobgovqj21329-453 mmol/LCarbon Icptyfz09.721.0-32.0 mmol/LAnion Gap13.5Hgoyfsy89991-091 mg/dLBlood Urea Jyvfwacp69.07.0-18.0 mg/dLCreatinine1.200.70-1.30 mg/dLEstimated GFR ( Diann>60>=60 mL/min/1.73m 2Estimated GFR (Non- Mignon>60>=60 mL/min/1.73m 2BUN Creatinine Ratio18.1Vritksz9.98.5-10.1 mg/dLBilirubin Total0.40.2-1.0 mg/dL Aspartate Amino Qsapafgijkv3191-36 U/LAlanine Zwsdoseitbqdfgnh7553-96 U/L Alkaline Qudhzcjuzpz0427-885 U/LTotal Protein7.46.4-8.2 g/dLAlbumin Level3.43.4- 5.0 g/dLGlobulin4.0Albumin Globulin Ratio0.9Performing Lab:see noteML - [place] LBT4 Reviewed date:05/08/2024 08:54:32 PM Interpretation: Performing Lab: Notes/Report: [facility] ,T4 Thyroxine5.904.50-12.10 ug/dLPerforming Lab:see noteML - [place] LBTSH Reviewed date:05/08/2024 08:54:32 PM Interpretation: Performing Lab: Notes/Report: [facility] ,Thyroid Stimulating Hormone0.5900.358-3.740 uIU/mLPerforming Lab:see noteML - [place] LBURIC ACID SERUM Reviewed date:05/08/2024 08:54:32 PM Interpretation: Performing Lab: Notes/Report: [facility] ,Uric Acid9.13.5-7.2 mg/dLPerforming Lab:see noteML - [place] LBNM trevin perf SPECT rest str Reviewed date:05/28/2024 08:42:41 PM Interpretation: Performing Lab: Notes/Report: Source Facility: [facility]-[address] [place] [address] [address] Nuclear Medicine Report Signed Patient: PABLO BECKMAN MR#: [id number] : 1955 Acct:[id number] Age/Sex: 68 / M ADM Date: 05/28/24 Loc: [place] Attending Dr: Lv Heard M.D. Ordering Physician: Lv Heard M.D. Date of Service: 05/28/24 Procedure(s): NM trevin perf SPECT rest str Accession Number(s): [id number] cc: Lv Heard M.D. Patient Name: PABLO BECKMAN MR#: [id number] : 1955 Exam Date: 05/28/2024 Ordering Doctor: DR Lv Heard . RADIOLOGY REPORT PROCEDURE: NM TREVIN PERF SPECT REST STR COMPARISON: None. INDICATIONS: DYSPNEA ON EXERTION, FATIGUE TECHNIQUE: Exam Description: Stress/Rest one day protocol gated SPECT Rest Imagin.9 mCi Tc-99m Cardiolite IV on 05/28/2024 Stress Imaging 30.4 mCi Tc-99m Cardiolite IV on 05/28/2024 Exercise Protocol: Jaxon Heart Rate (bpm): Rest: 67 Max: 136 PMHR: 88 Blood Pressure: Rest: 124/80 Max: 180/88 Symptoms: Rest and peak stress ECG findings were pending and the exercise portion of the study was pending per attending physician Dr. MARTIN . For more details, please see separate cardiac stress test report. FINDINGS: QUALITY OF STUDY: Good PERFUSION DEFECT: LOCATION: Basal lateral and inferior SIZE: Small, small to moderate SEVERITY: Mild TYPE: Lateral defect is reversible, inferior defect is fixed WALL MOTION: No wall motion abnormalities LV SIZE: 115 mL TID / TCD: 0.9 LVEF: Calculated EF 53%. SUMMARY: Myocardial perfusion imaging study is abnormal CONCLUSION: 1. Myocardial perfusion study is abnormal 2. A reversible basal lateral perfusion defect suggestive of ischemia is seen 3. A fixed inferior defect likely represents diaphragmatic attenuation 4. No evidence of transient ischemic dilatation 5. Global left ventricular systolic function is lower normal limits; calculated ejection fraction is 53% 6. The electrocardiographic portion of the stress test is to be reported separately Dictated by: Magdalena Stark M.D. on 05/28/2024 at 13:29 Approved by: Magdalena Stark M.D. on 05/28/2024 at 13:36 Dictated By: Magdalena Stark M.D. Signed By: 05/28/24 1337 DD/ 1336 TD/TT: Byproducts Pump Operator:PROF MARIANNE Baker ([facility]) Reviewed date:06/12/2024 09:24:51 PM Interpretation: Performing Lab: Notes/Report: [facility] ,Scrkwc878906-811 mmol/LPotassium3.73.5-5.1 mmol/ZJicoycqe42812-648 mmol/LCarbon Eanjbfp56.621.0-32.0 mmol/LAnion Gap14.6Fqvtsog19634-528 mg/dLBlood Urea Colzrtoa88.07.0-18.0 mg/dLCreatinine1.230.70-1.30 mg/dLEstimated GFR ( Diann>60>=60 mL/min/1.73m 2Estimated GFR (Non- Ame59>=60 mL/min/1.73m 2 BUN Creatinine Ratio13.5Wdmflfc3.98.5-10.1 mg/dLPerforming Lab:see noteML - [facility] LBPSA Reviewed date:06/12/2024 09:24:51 PM Interpretation: Performing Lab: Notes/Report: [facility] ,Prostate Specific Antigen Dx<0.13<=4.00 ng/mLPerforming Lab:see noteML - [place] LBMR lumbar spine wo con Reviewed date:12/23/2024 02:55:34 PM Interpretation: Performing Lab: Notes/Report: Source Facility: [facility]-[address] [place] [address] [place] [address] Magnetic Resonance Report Signed Patient: PABLO BECKMAN MR#: [id number] : 1955 Acct:[id number] Age/Sex: 69 / M ADM Date: 12/23/24 Loc: MRI Attending Dr: Lv Heard M.D. Ordering Physician: Lv Heard M.D. Date of Service: 12/23/24 Procedure(s): MR lumbar spine wo con Accession Number(s): [id number] cc: Lv Heard M.D. [place] [id number] Patient Name: PABLO BECKMAN MRN: [id number]:[id number] date: 1955 Sex: M Assigned Patient Location: MRI Current Patient Location: MRI Accession/Order Number: [id number] Exam Date: 12/23/2024 09:45 Report Date: 12/23/2024 14:32 At the request of: LV HEARD MD Procedure: MR lumbar spine wo con MRI lumbar spine performed without contrast INDICATION: Lumbar radiculopathy COMPARISON: CT lumbar spine 02/03/2024 FINDINGS: Lumbar vertebral heights are maintained. Mild multilevel intervertebral space narrowing L1-L5. Moderate entered using sterile L5-S1. Both medullary terminates normally at L2-L3. Minimal T1 hyperintense and T2 hyperintense endplate changes L3-L4 and L4-5. Evidence of endplate sclerosis involving the L5-S1 greatest left. T12-L1: No significant disease or disc protrusion. No axial images were obtained at this level. L1-2: Broad-based disc bulge with facet arthropathy. Mild central canal and mild neural foraminal narrowing identified. L2-L3: Broad-base disc bulge with piph-xi-auogsgvu facet arthropathy. Mild canal narrowing. There is mild right neural foraminal narrowing and hmgb-vl-skblhxun left neural foraminal narrowing identified. L3-4: Circumferential disc bulge with moderate to severe right moderate left facet arthropathy. There is moderate severe right moderate left neural foraminal narrowing. L4-5: Broad-based bulge with bhbv-tf-ahultymo facet arthropathy. This results in moderate right and sgwd-bn-ofdehzxp left neural from narrowing. Canal is patent. L5-S1: Circumferential disc bulge with endplate osteophytosis and facet arthropathy. This results in moderate to severe bilateral neural foraminal narrowing. Small central disc protrusion noted. MR/MR lumbar spine wo con IMPRESSION: Multilevel degenerative changes greatest at L5-S1 and L3-4 with moderate severe foraminal narrowing bilaterally L5-S1 and on the right at L3-4.. No high-grade central stenosis identified. Impression dictated by: Hector Philip M.D. 12/23/2024 2:32 PM Dictation Location: [place] [address] Electronically authenticated by: [id number] Y Date: 12/23/2024 14:32 Dictated By: Hector Philip M.D. Signed By: 12/23/241434 DD/ 31 TD/TT: Byproducts Pump Operator:PROF MARIANNE Baker ([facility]) Reviewed date:01/22/2025 07:39:21 PM Interpretation: Performing Lab: Notes/Report: [place] ,Ghmbpa816122-910 mmol/LPotassium4.13.5-5.1 mmol/KBmfseftg38825-368 mmol/LCarbon Nsbgxhi46.621.0-32.0 mmol/LAnion Gap13.3Pyqujka8309-390 mg/dLBlood Urea Nitrogen 37.07.0-18.0 mg/dLCreatinine1.160.70-1.30 mg/dLEstimated GFR ( Diann>60 >=60 mL/min/1.73m 2Estimated GFR (Non- Mignon>60>=60 mL/min/1.73m 2BUN Creatinine Ratio31.2Ickabzn7.28.5-10.1 mg/dLPerforming Lab:see noteML - [place] LBCT ABDOMEN WO or W CON Reviewed date:06/03/2024 08:25:19 PM Interpretation: Performing Lab: Notes/Report: Source Facility: [facility]-[address] [place] [address] [place] [address] CT Scan Report Signed Patient: PABLO BECKMAN MR#: [id number] : 1955 Acct:[id number] Age/Sex: 68 / M ADM Date: 06/03/24 Loc: CT Attending Dr: Lv Heard M.D. Ordering Physician: Lv Heard M.D. Date of Service: 06/03/24 Procedure(s): CT abdomen wo/w con Accession Number(s): [id number] cc: Lv Headr M.D. [place] [id number] Patient Name: PABLO BECKMAN MRN: [id number] date: 1955 Sex: M Assigned Patient Location: CT Current Patient Location: CT Accession/Order Number: [id number] Exam Date: 06/03/2024 10:39 Report Date: 06/03/2024 10:58 At the request of: LV HEARD MD Procedure: CT abdomen wo/w con CT ABDOMEN WITHOUT AND WITH INTRAVENOUS CONTRAST CLINICAL DATA: Follow-up left renal mass. COMPARISON: 02/03/2024 and 12/06/2023 Spiral images were obtained through the abdomen before and after intravenous administration of 100 mL of Omnipaque 300. This CT exam was performed using one or more following dose reduction techniques: Automated exposure control, adjustment of the mA and/or kV according to patient size, or use of iterative reconstruction technique. Limited cuts through the lung bases show atelectasis and/or scarring. There is bilateral perinephric fibrofatty stranding. The [...] lesions are identified. No hydronephrosis is noted. No calcified gallstones are identified. The liver, spleen, pancreas and adrenal glands show no acute finding. The abdominal aorta is normal caliber and there is minimal atherosclerotic plaque. There are a few small abdominal lymph nodes. No ascites is seen. The small bowel loops are not dilated. A duodenal diverticulum is again noted. There is mild colonic stool. Degenerative changes are visualized the spine. CT/CT abdomen wo/w con IMPRESSION: BILATERAL NEPHROLITHIASIS, WITHOUT OBSTRUCTION. CONTINUED TINY SUSPECTED EXOPHYTIC CYST AT THE POSTERIOR LEFT KIDNEY. NO ACUTE FINDINGS. Impression dictated by: Renea Odom M.D.06/03/2024 10:58 AM Dictation Location: [place] [address] Electronically authenticated by: [id number] Y Date: 06/03/2024 10:58 Dictated By: Renea Odom M.D. Signed By: 06/03/24 1101 DD/ 1058 TD/TT: Byproducts Pump Operator:Occult Blood* Reviewed date:05/09/2024 08:06:16 PM Interpretation: Performing Lab: Notes/Report: [place] ,Occult BloodPositivePerforming Lab:see noteML - [place] LBPSA Total+% Free Reviewed date:05/09/2024 08:06:16 PM Interpretation: Performing Lab: Notes/Report: [facility] ,Prostate Specific Ag<0.10.0-4.0 ng/mL Verified by repeat analysis Melquiades ECLIA methodology. According to the [employer] [place] [employer], Serum PSA should decrease and remain at undetectable levels after radical prostatectomy. The AUA defines biochemical recurrence as an initial PSA value 0.2 ng/mL or greater followed by a subsequent confirmatory PSA value 0.2 ng/mL or greater. Values obtained with different assay methods or kits cannot be used interchangeably. Results cannot be interpreted as absolute evidence of the presence or absence of malignant disease. PSA, Free<0.02N/A ng/mLRoche ECLIA methodology.% Free PSATNP. % Unable to calculate result since non-numeric result obtained for component test. The table below lists the probability of prostate cancer for men with non-suspicious CLAUDINE results and total PSA between 4 and 10 ng/mL, by patient age (Hue et al, KATHRIN 1998, 279:1542). % Free PSA 50-64 yr 65-75 yr 0.00-10.00% 56% 55% 10.01-15.00% 24% 35% 15.01-20.00% 17% 23% 20.01-25.00% 10% 20% >25.00% 5% 9% Please note: Hue et al did not make specific recommendations regarding the use of percent free PSA for any other population of men. Performed at: [facility] [employer] [id number] Plumber Maintenance: Jim Rossi PhD, Phone: [phone] Performing Lab:see noteLC - [facility] LBINSULIN Reviewed date:05/09/2024 08:06:16 PM Interpretation: Performing Lab: Notes/Report: [facility] ,Kqowjhd36.22.6-24.9 uIU/mL Performed at: CB - [facility] [address] [id number] Plumber Maintenance: Jim Rossi PhD, Phone: [phone] Performing Lab:see note - [facility] LBGLYCOHEMOGLOBIN A1C Reviewed date:05/08/2024 08:54:32 PM Interpretation: Performing Lab: Notes/Report: [facility] ,Glycohemoglobin A1C5.54.5-6.2 % ADA RECOMMENDED LIMIT 4.0 - 6.0 ADA THERAPEUTIC TARGET < 7.0 ACTION SUGGESTED > 7.0 Estimated Average Xlxkjhd006Vyyouftfmu Lab:see noteML - [place] LB CBC AUTO DIFF Reviewed date:05/08/2024 08:54:32 PM Interpretation: Performing Lab: Notes/Report: [facility] ,White Blood Count7.54.0-11.0 10 3/uLRed Blood Count3.204.70-6.10 10 6/uL Dewbmzjdcm07.514.0-18.0 g/pCHnseousniz44.942.0-54.0 %Mean Corpuscular Gskyxd78.7 80.0-94.0 fLMean Corpuscular Ncxxknpnvr38.825.9-34.0 pgMean Corpuscular HGB Conc 32.929.9-35.2 g/dLRed Cell Distribution Width14.311.0-15.0 %Platelet Gukkj255 150-450 10 3/uLMean Platelet Volume9.19.5-13.5 fLNeutrophils Percent Auto71.9 43.0-75.0 %Lymphocytes Percent Auto16.320.5-60.0 %Monocytes Percent Auto11.01.7- 12.0 %Eosinophils Percent Auto0.00.9-7.0 %Basophils Percent Auto0.00.2-2.0 % Immature Granulocytes Pct Auto0.80.0-0.5 %Neutrophils Absolute Auto5.41.4-6.5 10 3/uLLymphocytes Absolute Auto1.21.2-3.8 10 3/uLMonocytes Absolute Auto0.80.3-0.8 10 3/uLEosinophils Absolute Auto0.00.0-0.7 10 3/uLBasophils Absolute Auto0.00.0- 0.1 10 3/uLImmature Granulocytes Abs Auto0.060.00-0.03 10 3/uLPerforming Lab:see noteML - [facility] LBOccult Blood* Reviewed date:02/04/2024 10:33:40 PM Interpretation: Performing Lab: Notes/Report: [facility] ,Occult BloodNegativePerforming Lab:see note - [facility] LBURINE MICROSCOPIC ONLY Reviewed date:02/04/2024 10:33:40 PM Interpretation: Performing Lab: Notes/Report: [facility] ,WBC UrineNONE SEENNONE SEEN #/HPFRBC Urine0-20-2 #/HPFBacteria UrineTRACENONE SEEN #/HPFMucus UrineNONE SEENNONE SEENSquamous Epithelial Cell UrineNONE SEEN NONE/RARE #/LPFCrystals Seen?None SeenNone Seen #/HPFCast Seen?NONE SEENNONE SEEN #/LPFUrine Culture IndicatedNOPerforming Lab:see noteML - [facility] LBUA (CLEAN or CATCH) MANUFACTURER AGENT or MICRO IF IND. Reviewed date:02/04/2024 10:33:40 PM Interpretation: Performing Lab: Notes/Report: [facility] ,Color UrineLT. YELLOWYELLOWClarity UrineCLEARCLEARSpecific Ailey Urine1.010 1.005-1.025pH Urine6.05.0-9.0Protein UrineNEGATIVENEG/TRACE mg/dLGlucose Urine UANEGATIVENEGATIVE mg/dLBilirubin UrineNEGATIVENEGATIVEKetones UrineNEGATIVE NEGATIVE mg/dLBlood UrineTRACE-INEGATIVENitrite UrineNEGATIVENEGATIVE Urobilinogen Urine0.20.2-1.0 EU/dLLeukocyte Esterase UrineNEGATIVENEGATIVEUrine Microscopic IndicatedYESPerforming Lab:see note - [facility] LBPROF 14(COMP METB) Reviewed date:02/04/2024 10:33:40 PM Interpretation: Performing Lab: Notes/Report: [facility] ,Wmnnma507624-656 mmol/LPotassium4.23.5-5.1 mmol/VBbniroug49825-300 mmol/LCarbon Ntdjsba05.721.0-32.0 mmol/LAnion Gap17.4Grfvsvq18249-558 mg/dLBlood Urea Xnulhqnv97.07.0-18.0 mg/dLCreatinine1.480.70-1.30 mg/dLEstimated GFR ( Xyrfwbz74>=60 mL/min/1.73m 2Estimated GFR (Non- Ame47>=60 mL/min/1.73m 2 BUN Creatinine Ratio15.8Haougyp7.48.5-10.1 mg/dLBilirubin Total0.70.2-1.0 mg/dL Aspartate Amino Csxlhujcasg9475-66 U/LAlanine Bqdhbnojbknozwds8710-21 U/L Alkaline Qgbketdfedt3797-296 U/LTotal Protein8.16.4-8.2 g/dLAlbumin Level3.43.4- 5.0 g/dLGlobulin4.7Albumin Globulin Ratio0.7Performing Lab:see noteML - [place] LBLACTATE or LACTIC ACID Reviewed date:02/04/2024 10:33:40 PM Interpretation: Performing Lab: Notes/Report: [facility] ,Lactate/Lactic Acid1.10.4-2.0 mmol/LPerforming Lab:see noteML - [place] LBCBC AUTO DIFF Reviewed date:02/04/2024 10:33:40 PM Interpretation: Performing Lab: Notes/Report: [facility] ,White Blood Count9.94.0-11.0 10 3/uLRed Blood Count3.324.70-6.10 10 6/uL Iqdzteizby28.614.0-18.0 g/iTUnqanvsgpg43.542.0-54.0 %Mean Corpuscular Fvrzxf07.9 80.0-94.0 fLMean Corpuscular Qmcdekyczj19.925.9-34.0 pgMean Corpuscular HGB Conc 32.629.9-35.2 g/dLRed Cell Distribution Width14.111.0-15.0 %Platelet Siqud721 150-450 10 3/uLMean Platelet Volume9.39.5-13.5 fLNeutrophils Percent Auto65.7 43.0-75.0 %Lymphocytes Percent Auto18.520.5-60.0 %Monocytes Percent Auto14.51.7- 12.0 %Eosinophils Percent Auto0.80.9-7.0 %Basophils Percent Auto0.10.2-2.0 % Immature Granulocytes Pct Auto0.40.0-0.5 %Neutrophils Absolute Auto6.51.4-6.5 10 3/uLLymphocytes Absolute Auto1.81.2-3.8 10 3/uLMonocytes Absolute Auto1.40.3-0.8 10 3/uLEosinophils Absolute Auto0.10.0-0.7 10 3/uLBasophils Absolute Auto0.00.0- 0.1 10 3/uLImmature Granulocytes Abs Auto0.040.00-0.03 10 3/uLPerforming Lab:see noteML - [facility] LBCA echo doppler complete Reviewed date:08/02/2024 12:25:34 PM Interpretation: Performing Lab: Notes/Report: Source Facility: [facility] [place] [address] [place] [address] Cardiology Report Signed Patient: PABLO BECKMAN MR#: [id number] : 1955 Acct:[id number] Age/Sex: 68 / M ADM Date: 08/02/24 Loc: CARD Attending Dr: AMMTA ARIAS APRN Ordering Physician: MAMTA ARIAS APRN Date of Service: 08/02/24 Procedure(s): CA echo doppler complete Accession Number(s): [id number] cc: Lv Heard M.D.; MAMTA ARIAS APRN Patient Name: PABLO BECKMAN MR#: [id number] : 1955 Exam Date: 08/02/2024 Ordering Doctor: MAMTA ARIAS CNP ECHOCARDIOGRAM REPORT PROCEDURE: CA ECHO DOPPLER COMPLETE INDICATIONS: Coronary artery disease, cardiac stents, hypertension COMPARISON: None. DESCRIPTION: COMPLETE ECHOCARDIOGRAM Real-time transthoracic echocardiography with 2D, M-mode, spectral and color flow Doppler performed. QUALITY: Technical quality was good. LEFT VENTRICLE: Normal chamber size. Mild concentric left ventricular hypertrophy. Normal systolic function. LV EF: Normal left ventricular ejection fraction, (55%). DIASTOLIC: Diastolic function is indeterminate. ATRIAL SEPTUM: Visually appears intact. LEFT ATRIUM: Moderate dilatation. RIGHT ATRIUM: Normal chamber size. RIGHT VENTRICLE: Normal chamber size. Normal right ventricular systolic function. TRICUSPID VALVE: Normal mobility and thickness. No stenosis with trivial regurgitation. Doppler studies reveal moderately (45-60) elevated right sided pressures. RVSP 53 mmHg MITRAL VALVE: Mildly thickened with normal mobility. No evidence of mitral valve stenosis. Mild mitral annular calcification. Mild mitral regurgitation. AORTIC VALVE: Normal trileaflet appearance. Mildly calcified aortic valve. Mildly diminished mobility. No evidence of aortic valve stenosis. Mild aortic regurgitation. AORTIC ROOT: Normal diameter and appearance, measuring 3.4 cm. Ascending aorta is mildly dilated (3.9 cm). PULMONIC VALVE: Not well visualized. No stenosis. Trivial regurgitation. PERICARDIUM: No evidence of pericardial effusion. IVC: IVC is dilated (2.5 cm), does not fully collapse. PLEURA: CONCLUSION: 1. Microcytic ventricular hypertrophy with normal systolic function. LVEF is estimated at 55%. 2. Normal right ventricular size and systolic function. 3. Moderate left atrial dilatation. 4. Mild aortic and mitral regurgitation. 5. Moderately elevated right-sided pressures. RVSP is 53 mmHg. 6. Mildly dilated ascending aorta measuring 3.9 cm. Adult Echocardiography Procedure Report Left Ventricle LVEDD (3.7 - 5.6 cm): 4.13 cm LVESD (2.2 - 4.0 cm): 2.90 cm LVIVS thickness (0.6 - 1.2 cm): 1.07 cm LVPW thickness (0.5 - 1.0 cm): 1.08 cm e': 0.10 m/s E - e': 8.52 LVOT Max Gradient: 2.58 mm[Hg] LVOT Area (cm2): 0.80 m/s Peak Velocity (LVOT): 0.80 m/s Mean Velocity (LVOT): 0.57 m/s LVOT Diameter 2.23 cm Left Atrium LA Volume Index (2D A2C): 44.50 ml/m2 Left Atrium Systolic Dimension: 3.80 cm Mitral Valve MV E to A Ratio: 1.28 Mitral Valve A-Wave Peak Velocity: 0.65 m/s Mitral Valve E-Wave Peak Velocity: 0.83 m/s Right Ventricle Aorta AO Root Diam: 3.42 cm Ascending Ao Diam: 3.93 cm Aortic Valve AoV Area (Peak Johnnie): 2.31 cm2, 2.31 cm2 AoV Area (VTI): 2.74 cm2, 2.74 cm2 Deceleration [place]: 1.26 m/s2 Pressure Half-Time: 537.05 ms Peak Velocity(Antegrade Flow): 1.35 m/s Peak Gradient(Antegrade Flow): 7.31 mm[Hg] Mean Velocity(Antegrade Flow): 0.87 m/s Mean Gradient(Antegrade Flow): 3.59 mm[Hg] Velocity Time Integral: 29.20 cm Tricuspid Valve Peak Velocity (Regurgitant Flow): 3.07 m/s Pulmonic Valve Mean Gradient: 1.29 mm[Hg] Mean Velocity: 0.54 m/s Peak Velocity: 0.82 m/s, 0.77 m/s Peak Gradient: 2.34 mm[Hg], 2.71 mm[Hg] Right Atrium Right Atrium Systolic Pressure: 61.19 ml, 61.19 ml Dictated by: Jt Miles M.D. on 08/02/2024 at 09:52 Approved by: Jt Miles M.D. on 08/02/2024 at 09:56 Dictated By: JT MILES Signed By: 08/02/24 0957 DD/ 0956 TD/TT: Byproducts Pump Operator:CBC AUTO DIFF Reviewed date:06/12/2024 09:24:51 PM Interpretation: Performing Lab: Notes/Report: [facility] ,White Blood Count6.94.0-11.0 10 3/uLRed Blood Count3.344.70-6.10 10 6/uL Wcycxdkubz41.014.0-18.0 g/eUBphzgtzeka55.842.0-54.0 %Mean Corpuscular Nlnbpr88.2 80.0-94.0 fLMean Corpuscular Ouywcolqxo25.925.9-34.0 pgMean Corpuscular HGB Conc 33.529.9-35.2 g/dLRed Cell Distribution Width14.711.0-15.0 %Platelet Lhpdh307 150-450 10 3/uLMean Platelet Volume9.39.5-13.5 fLNeutrophils Percent Auto60.4 43.0-75.0 %Lymphocytes Percent Auto21.920.5-60.0 %Monocytes Percent Auto16.21.7- 12.0 %Eosinophils Percent Auto1.00.9-7.0 %Basophils Percent Auto0.10.2-2.0 % Immature Granulocytes Pct Auto0.40.0-0.5 %Neutrophils Absolute Auto4.21.4-6.5 10 3/uLLymphocytes Absolute Auto1.51.2-3.8 10 3/uLMonocytes Absolute Auto1.10.3- 0.8 10 3/uLEosinophils Absolute Auto0.10.0-0.7 10 3/uLBasophils Absolute Auto0.0 0.0-0.1 10 3/uLImmature Granulocytes Abs Auto0.030.00-0.03 10 3/uLPerforming Lab:see noteML - [place] LB Reason For Referral Diagnosis 1 Hematuria (R31.9) Referral Organization [facility] Referring Provider First Name Gareth Referring Provider Last Name Félix Referring Provider [facility] Referred Provider [facility] Referred Provider Specialty Neurology Referral Priority Routine Diagnosis 1 Renal mass, left (N2 8.89) Diagnosis 2 Hematuria (R31.9) Referral Organization [facility] Referring Provider First Name Gareth Referring Provider Last Name Félix Referring Provider [facility] Referred Provider Francisco Medrano Referred Provider Specialty Urology Referral Priority Routine Medications Medication SIG (Take, Route, Frequency, Duration) Notes Start Date End Date Status predniSONE 20 MG 3 tablets Orally Once a day; Du ration: 5 days 5ActiveAspirin 81 81 MG1 tablet Orally Once a dayActivetiZANidine HCl 4 MG2 tabs Orally qhs; Duration: 30 days5ActiveRosuvastatin Calcium 20 MG1 tablet Orally Once a dayActiveProctozone-HC 2.5 %1 application Externally Twice a day with tip applicator; Duration: 30 days5ActiveMetoprolol Tartrate 75 MG1 tablet with food Orally Twice a day; Duration: 90 days11/28/2022 ActiveLasix 20 MG1 tablet Orally Once a day5ActiveFerrous Sulfate 325 (65 Fe) MG1 tablet Orally BID; Duration: 90 daysActiveEliquis 5 MGtake 1 tablet Oral twice daily; Duration: 90 daysActiveClopidogrel Bisulfate 75 MG1 tablet Orally Once a dayActiveCentrumActive Social History Tobacco Use: Social History Observation Description Date Details (start date - stop date) Former Smoker 04/10/1971 - 04/10/1992 Tobacco Use/Smoking Question Answer Notes Patient is a former smoker When did you start smoking?04/10/1971When did you stop smoking?04/10/1992How long has it been since you last smoked?> 10 yearsAdditional Findings: Tobacco Ssk-EthgJg-judehyuy cigarette smoker (10-19/day)Alcohol Screen (Audit-C) Question Answer Notes Did you have a drink containing alcohol in the p ast year? Yes How many drinks did you have on a typical day when you were drinking in the past year?1 or 2 drinks (0 point)How often did you have a drink containing alcohol in the past year?Weekly (3 points)Ffbbcb6HxrbzkprotqdpwCjfalhkdWTHNC-P (Standard) Question Answer Notes Did you have a drink containing alcohol in the p ast year? Yes How often did you have six or more drinks on one occasion in the past year?Never (0 point)How many drinks did you have on a typical day when you were drinking in the past year?1 or 2 drinks (0 point)How often did you have a drink containing alcohol in the past year?Monthly or less (1 point)Points1 InterpretationNegative Problems Problem Type SNOMED Code ICD Code Onset Dates Problem Status W/U Status Risk Notes Problem Paroxysmal atrial fi brillation (782935524) Paroxysmal atrial fibrillation (I48.0) ActiveconfirmedProblemHeart failure (91590169)Heart failure, unspecified (I50.9) ActiveconfirmedProblemMelena (9119142)Melena (K92.1)ActiveconfirmedProblem Osteoarthritis of knee (683525123)Osteoarthritis of knee, unspecified (M17.9) ActiveconfirmedProblemChest pain (58997308)Chest pain (R07.9)Activeconfirmed ProblemAtrial fibrillation (51299069)Atrial fibrillation (I48.91)Activeconfirmed ProblemHypertension (37132169)Hypertension (I10)ActiveconfirmedProblemAtrial fibrillation (disorder) (22957775)Afib (I48.91)ActiveconfirmedProblemMalignant tumor of prostate (184050633)Prostate cancer (C61)ActiveconfirmedProblem Hematuria (53624691)Hematuria (R31.9)ActiveconfirmedProblemLumbar radiculopathy (443536285)Lumbar radiculopathy (M54.16)ActiveconfirmedProblemHemorrhage of rectum and anus (974719595)Rectal bleed (K62.5)ActiveconfirmedProblemAcquired spondylolisthesis (930106525)Lumbar spondylolysis (M43.06)ActiveconfirmedProblem Lumbar radicular pain (4306273614)Lumbar radicular pain (M54.16)Activeconfirmed ProblemDiverticular disease of colon (556177941)Diverticula of colon (K57.30) ActiveconfirmedProblemDisorder of kidney and/or ureter (255916305)Renal mass, left (N28.89)ActiveconfirmedProblemSpinal stenosis of lumbar region (91765583) 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)ActiveconfirmedProblemChronic kidney disease stage 3A (disorder) (364296104)Chronic kidney disease, stage 3a (N18.31)Activeconfirmed Vital Signs Blood pressure diastolic 84 mm Hg 01/01/2025 Rcslpn39 in01/01/2025lood pressure qqrthizm447 mm Hg01/01/20251900Hqndlz683.6 lbs 01/01/2025BMI30.36 kg/m201/01/2025 Procedures Procedure Date Ordered Date Performed Result Body Sit e CARDIO Stress Test - Cardiolite 05/07/2024 N/A Encounters Encounter Location Date Provider Diagnosis [facility] [address] [place] [address] 01/01/2025 Gareth Hoy Foraminal stenosis o f lumbar region M48.061 [place] [address] [place] [address] 02/12/2024 Gareth Hoy Hypertension I10 ; Paroxysmal atrial fibrillation I48.0 and Lumbar radicular pain M54.16 [facility] [address] [place] [facility] [place] [address] 05/07/2024 Gareth Hoy Hypertension I10 ; Paroxysmal atrial fibrillation I48.0 and Chest pain R07.9 [facility] [address] [place] [facility] [place] [address] 05/14/2024 Gareth Hoy Osteoarthritis of kn ee, unspecified M17.9 and Primary localized osteoarthritis of right knee M17.11 [facility] [address] [place] [facility] [place] [address] 07/19/2024 Gareth Hoy Prostate cancer C61 [facility] [address] [place] [facility] [place] [address] 11/13/2024 Gareth Hoy Heart failure, unspecified I50.9 ; Chronic kidney disease, stage 3a N18.31 and Lumbar radiculopathy M54.16 [facility] [address] [place] [facility] [place] [address] 06/03/2024 Gareth Hoy Hematuria R31.9 [facility] [address] [place] [facility] [place] [address] 06/04/2024 Gareth Hoy Renal mass, left N28 .89 and Hematuria R31.9 [facility] [address] [place] [facility] [place] [address] 07/05/2024 Gareth Hoy [facility] [place] [facility] [place] [address] 07/19/2024Doug HoyProstate cancer P81SimbcnaSedgwick [facility] [place] [facility] [place] [address]/Doug [facility] [place] [facility] [place] [address]/Doug [facility] [place] [facility] [place] [address]/ Gareth [facility]UC[facility] [place] [facility] [place] [address]/Doug HoyRenal mass, left N28.89[facility] [facility] [place] [address]/Doug [facility] [place] [facility] [place] [address]/ Gareth [facility] [place] [place] [address]/Doug HoyHypertension S61XecfkraThe Medical Center [facility] [place] [facility] [place] [address]/Doug [facility] [facility] [place] [address]/oug [facility] [place] [address]/ Gareth [facility] [place] [address]/Doug [facility] [place] [place] [address]/Doug Hoy Assessments Encounter Date Diagnosis (ICD Code) Assessment Notes Treatment Notes Treatment Clinical Notes Section Notes 02/12/2024 Paroxysmal atrial fibrillation ( ICD-10 - I48.0) unable to use yquxhm7102/12/2024Hypertension (ICD-10 - I10)sta le11/13/2024hronic kidney disease, stage 3a (ICD-10 - N18.31)reviewed labs - cont to stay ocptkxxgg46/24/2025Foraminal stenosis of lumbar region (ICD-10 - M48.061) 05/27/2024Renal mass, left (ICD-10 - N28.89)05/28/2024Hypertension (ICD-10 - I10)06/03/2024Hematuria (ICD-10 - R31.9)06/04/2024Hematuria (ICD-10 - R31.9) 06/04/2024Renal mass, left (ICD-10 - N28.89)07/19/2024Prostate cancer (ICD-10 - C61)05/07/2024Hypertension (ICD-10 - I10)05/14/2024Osteoarthritis of knee, unspecified (ICD-10 - M17.9)styeroid naaurfijdp11/04/2025Primary localized osteoarthritis of right knee (ICD-10 - M17.11)07/19/2024Prostate cancer (ICD-10 - C61)11/13/2024Heart failure, unspecified (ICD-10 - I50.9)stabel on meds 05/07/2024Paroxysmal atrial fibrillation (ICD-10 - I48.0)05/07/2024hest pain (ICD-10 - R07.9)11/13/2024Lumbar radiculopathy (ICD-10 - M54.16)02/12/2024Lumbar radicular pain (ICD-10 - M54.16)better now02/12/2024OtherRecommended to rest and use a heating pad on the area. Take NSAIDs for pain as gfrgce7311/13/2024Other Recommended to rest and use a heating pad on the area. Take NSAIDs for pain as rhfsog2301/01/2025OtherRecommended to rest and use a heating pad on the area. Take NSAIDs for pain as needed Plan Of Treatment Pending Test Test Name Order Date CMP (COMPLETE METABOLIC PANEL) 4 HEMOGLOBIN A1C (GLYCO) 04/12/2023 HEMOGLOBIN A1C (GLYCO) 05/07/2024 INSULIN, TOTAL 05/07/2024 LIPID PANEL (CHOL/TRIG/HDL/LDL) 05/07/19 25 LIPID PANEL (CHOL/TRIG/HDL/LDL) 04/12/19 24 CBC WITH DIFF 04/12/2023 CBC WITH DIFF 05/07/2024 PSA, PROSTATE-SPECIFIC ANTIGEN 4 URIC ACID 05/07/2024 CARDIO Stress Test - Cardiolite 05/07/19 25 PSA-FREE AND TOTAL 05/07/2024 CT Kidney wo/w Cont * 05/27/2024 CBC W/AUTO DIFF 06/15/2023 CBC W/AUTO DIFF 12/08/2023 STOOL OCCULT BLOOD 05/07/2024 PROTIME 06/13/2023 PROTIME 12/08/2023 CT CHEST WO W CON 12/27/2022 MRI LSPINE WO CON 11/13/2024 THYROID PANEL (T4/TSH/FREE T3) CMP (COMP MET MILLARD) w/eGFR CKD-EPI 2024 Insurance Providers Payer Name Payer Address Payer Phone Subscriber Number Group Number Insured Name Patient Relationship to Insured Coverage Start Date Coverage End Date MMO ADVANTAGE CHOICE MEDICAR E HMO [address] [place] [address] [id number] Robert Beckmanelf - patient is the insured Medications Administered Medication Instructions Date of Administration Dosage Notes Kenalog-40 mgKetorolac Eharhfsdsdye53/06/202560 mgKetorolac Tromethamine mgLidocaine HCl mLOrphenadrine Zqiwhvr88 mg Orphenadrine Evsmzfk26 mgTriamcinolone 40 mg/ml0 mg Triamcinolone 40 mg/ml20 mgTriamcinolone 40 mg/ml20 mg Medical (General) History Medical History History ICD Code Adenocarcinoma of prostate C61 Cataracts, bilateral H26.9 Thoracic aortic aneurysm, without ruptur e I71.2 COVID-19 U07.1 Diverticulosis K57.90 Gout M10.9 Hypertension I10 Osteoarthritis of knee, unspecified M17. 9 Prostatitis N41.9 Rectal bleeding K62.5 Obstructive sleep apnea G47.33 Umbilical hernia K42.9 Fracture of Fibula Shaft Surgical History Surgery Date(Month/Year) cardiac cath 06/19/24 Finger tips smashed off VASECTOMYRight Broken LegTorn Shoulder repair- Right Shoulderhernia repair Hospitalization History Reason Date(Month/Year) back pain 03/03 Chest Pain 2022
--- OUTSIDE RECORDS SUMMARY | 2025-01-28 07:44 | XMS_ITS | Clinical Summary ---
Author Organization [facility] Address [address] [place] [address] Care Team Providers Care Field Marketing Specialist Name Role Phone Guillermo Heard MD Primary Care Provider [phone] Allergies No known active allergies Medications MedicationSigDispense QuantityRefillsLast FilledStart DateEnd DateStatus Multivitamin capsule Take 1 capsule by mouth once daily.Active Active Problems ProblemNoted DateDiagnosed DateRadiotherapy follow-up06/10/2014Personal history of prostate kyalee5710/31/2013 Family History Medical HistoryRelationCommentsBreast CancerSisterRelationStatusCommentsSister Social History Tobacco UseTypesPacks/DayYears UsedDateSmoking Tobacco: FormerCigarettes1.510 06/11/1979 - 06/10/1989mokeless Tobacco: NeverAlcohol UseStandard Drinks/Week CommentsNot Asked0 (1 standard drink = 0.6 oz pure alcohol)PHQ-2AnswerDate RecordedPHQ-2 nfhgp859rea Deprivation IndexAnswerDate RecordedNational Score (1-100), lower number is lower sybw746506/18/2024State Score (1-10), lower number is lower sksr686Data from: https://www.neighborhoodatlas.medicine.[facility].edu/. Last address used for [address] [place] [address]/18/2024Sex and Gender InformationValueDate RecordedSex Assigned at BirthNot on fileLegal OnbDiqp80/02/2012 8:26 AM EST Gender IdentityNot on fileSexual OrientationNot on file Last Filed Vital Signs Vital SignReadingTime TakenCommentsBlood Eizrrvmu140/7203/ 10:05 AM EDT Nlafp622006/24/2020 10:05 AM PRCXsmgoyrxgyl20.8 ??C (98.2 ??F)06/24/2020 10:05 AM EDTRespiratory Ikxx450906/24/2020 10:05 AM EDTOxygen Sphvtkvufg49%06/24/2020 10:05 AM EDTInhaled Oxygen Concentration--Arksmi60.8 kg (209 lb)06/24/2020 10:05 AM EDTHeight--Body Mass Index-- Plan of Treatment DateTypeDepartmentCare Team (Latest Contact Info)Ylqetxeiwlc43/11/2026 4:30 PM [facility] [address] [place] [address] [place] [address] Quinton Gonzáles MD [address] [place] [address] [place] [address] 1 year follow up - PSA at [facility] DateLast DoneComments Abdominal Aortic Aneurysm Xdeuppmjy34/13/1957Anxiety Oxkbagmey75/13/1975 Depression Lcnguofnu98/13/1975Hepatitis C Pawsqnoic01/13/1975DTaP,Tdap,Td Vaccine (1 - Tdap)10/21/1975Lipid Blmlqfbtx01/13/1992CT Osnhjaxgbxea97/13/2002 Cologuard (FIT-DNA)10/20/20011006Qsotbjopirh42/13/2002Colorectal Cancer Screening 2001Diabetes Gfxqutvyv04/13/2002Fecal Occult Blood2001Sigmoidoscopy 2001Shingrix Vaccine (1 of 2)2006Pneumococcal Vaccine: 50+ (2 of 2 - PCV20 or PCV21)dvance Directive Hknvowgxwj53/01/2025 Medicare Advantage Annual Wellness Visit04/10/2024ovid-19 Vaccine (3 - season)504/, 07/09/2020Influenza Vaccine (#1)2024Prostate Cancer Screening Nhlazpvvcs62, 06/13/2023, 06/02/2022, Additional history existsRSV Vaccine (1 - 1-dose 75+ series)10/21/2031 Procedures Procedure NamePriorityDate/TimeAssociated DiagnosisCommentsPSA (OUTSIDE)Routine 06/12/2024 from Last 3 Months or Most Recently Relevant to Health Maintenance Results * PSA (OUTSIDE) (06/12/2024)ComponentValueRef RangeTest MethodAnalysis Time Performed AtPathologist SignaturePSA.<0.13Specimen (Source)Anatomical Location / LateralityCollection Method / VolumeCollection TimeReceived TimeBLOOD SPECIMEN / Xqcnuni6306/12/2024 Narrative Authorizing ProviderResult TypeResult StatusCcf ProviderLABORATORYFinal Result from Last 3 Months or Most Recently Relevant to Health Maintenance Insurance [facility] Address: [facility] [address] [place] [address] Care Teams Team MemberRelationshipSpecialtyStart DateEnd Date Guillermo Heard MD PCP - Etiiwwt69/17/09
--- NOTE | 2025-01-28 07:47 | CT_ITS ---
The [address] [address] Patient Name: PABLO ROBERTS MRN: [id number] date: 1955 Sex: M Assigned Patient Location: CT Current Patient Location: CT Accession/Order Number: [id number] Exam Date: 01/28/2025 07:58 Report Date: 01/28/2025 13:59 At the request of: JASWINDER BUCKNER MD Procedure: CT angio chest CTA CHEST WITH CONTRAST CLINICAL HISTORY: Aneurysm Of Ascending Aorta I71.21 COMPARISON: 01/17/2023 TECHNIQUE: Spiral images were obtained through the chest following intravenous administration of 100 mL of Omnipaque 350. Images were reviewed using both narrow and wide window settings. Sagittal, coronal and 3 D volume-rendered reconstructions were performed and reviewed. This CT exam was performed using one or more following dose reduction techniques: Automated exposure control, adjustment of the mA and/or kV according to patient size, or use of iterative reconstruction technique. FINDINGS: The heart is slightly prominent. There is no pericardial effusion. Coronary disease is seen. There is continued mild dilatation ascending aortic aorta with diameter of 4.2 cm. No dissection is noted. There is minor plaque at the arch. There is adequate opacification of the pulmonary arteries. No emboli are identified. No pathologic lymphadenopathy is seen. There is subtle upper thoracic levoscoliotic curvature and degenerative changes at the spine. There is mild atelectasis and possible scarring. There is no focal consolidation, effusion or discrete soft tissue nodules. No pneumothorax is seen. Limited cuts through the upper abdomen show no contributory abnormality. CT/CT angio chest IMPRESSION: MILD CARDIOMEGALY. STABLE 4.2 CM ASCENDING AORTIC ANEURYSM. NO CT EVIDENCE OF PULMONARY EMBOLISM. NO ACUTE INTRATHORACIC FINDINGS. Impression dictated by: Renea Odom M.D. 01/28/2025 1:59 PM Dictation Location: [place] [address] Electronically authenticated by: [id number] Y Date: 01/28/2025 13:59
== END 2025-01-28 07:42 | disposition home or self-care (01) ==
LOC: CT 07:41
PROVIDERS: PCP Family Medicine; Visit Provider Internal Medicine Cardiovascular Disease
DX: I71.21 Aneurysm of the ascending aorta, without rupture (principal); I51.7 Cardiomegaly
CPT/HCPCS: 71275; Q9967

== ENCOUNTER 2025-03-16 14:54 | Emergency (ER) | payer MEDICARE, SELFPAY ==
--- OUTSIDE RECORDS SUMMARY | 2025-03-13 08:00 | XMS_ITS | Encounter Summary ---
Author Organization [facility] Address [address] [facility] [place] [address] Care Team Providers Care Plastics Spreading Machine Operator Name Role Phone Guillermo Heard MD Primary Care Provider [phone] Reason for Referral * Consultation (Stat) - AuthorizedSpecialtyDiagnoses / ProceduresReferred By ContactReferred To ContactOrthopaedic Surgery Diagnoses Cellulitis of right lower extremity History of open reduction and internal fixation (ORIF) procedure Christian Barton NP [address] [place] [address] Phone: tel: fax: Anjel Marrero Jr., MD [address] [place] [phone] Phone: tel: fax: Referral IDStatusReasonStart DateExpiration DateVisits RequestedVisits [id number] Specialty Services Required Reason for Visit * ReasonCommentsPain Encounter Details DateTypeDepartmentCare Team (Latest Contact Info)Voaipmzgggn98/04/2025 8:00 AM ESTOffice Visit [facility] [address] [place] [phone] Christian Barton NP [address] [place] [address] Cellulitis of right lower extremity (Primary Dx); Right ankle pain, unspecified chronicity; Right leg pain; History of open reduction and internal fixation (ORIF) procedure Social History Tobacco UseTypesPacks/DayYears UsedDateSmoking Tobacco: FormerCigarettes Tobacco Cessation:Counseling Given: Not Answered Sex and Gender InformationValueDate RecordedSex Assigned at BirthNot on file Legal ClcSvsk8106/22/2022 7:01 PM EDTGender IdentityNot on fileSexual Orientation Not on filedocumented as of this encounter Last Filed Vital Signs Vital SignReadingTime TakenCommentsBlood Pressure--Pulse--Temperature-- Respiratory Rate--Oxygen Saturation--Inhaled Oxygen Concentration--Bquhcc94.3 kg (210 lb)03/13/2025 8:04 AM OTCMnrlri491.7 cm (5' 8 )03/13/2025 8:04 AM ESTBody Mass Index31.9303/13/2025 8:04 AM ESTdocumented in this encounter Progress Notes * Christian Barton NP - 03/13/2025 8:00 AM EST Images from the original note were not included. NAME: Dillon Beckman : 1955 HISTORY OF PRESENT ILLNESS: NEW PT Dillon Beckman is an 69 y.o. @ male. (NEW PT) RT LEG/ ANKLE PAIN ~ 6 MTHS. NKI. STATES HE FEELS A COUPLE OF THE SCREWS PUSHING OUT NEAR ANKLE. HX RT TIBIA FX 2006 - DR VELEZ. XRAY TODAY RT TIB/FIB EPIC 03/13/25 WALKING WITH A CANE. PAIN POSTERIOR ANKLE, LOWER LEG. +IBU PRN. DENIES N/T. REDNESS POSTERIOR ANKLE. WAKES AT HS. PAST MEDICAL HISTORY: Medical History[1] PAST SURGICAL HISTORY: Surgical History[2] SOCIAL HISTORY: Social History Occupational History Not on file Tobacco Use Smoking status: Former Types: Cigarettes Smokeless tobacco: Not on file Substance and Sexual Activity Alcohol use: Not on file Drug use: Not on file Sexual activity: Not on file ALLERGIES: Allergies[3] HOME MEDICATIONS: Current Outpatient Medications Medication Instructions apixaban (Eliquis) 5 MG tablet 1 tablet clindamycin (CLEOCIN) 300 mg, Oral, 3 times daily FeroSul 325 (65 Fe) MG tablet 1 tablet, 2 times daily furosemide (LASIX) 20 mg, 2 times daily metoprolol tartrate (Lopressor) 75 MG tablet 2 times daily Multiple Vitamins-Minerals (CENTRUM ADULTS PO) Centrum rosuvastatin (Crestor) 20 MG tablet TAKE 1 TABLET(20 MG) BY MOUTH AT BEDTIME REVIEW OF SYSTEMS: Review of Systems Constitutional: Negative for chills, fatigue, fever and unexpected weight change. Eyes: Negative for redness and visual disturbance. Gastrointestinal: Negative for abdominal pain. Denies Indigestion Musculoskeletal: See note: Skin: Positive for color change. Erythema in right ankle Neurological: Negative for light-headedness and numbness. Vitals: Body mass index is 31.93 kg/m??. Tobacco Use: Medium Risk (03/13/2025) Patient History Smoking Tobacco Use: Former Smokeless Tobacco Use: Unknown Passive Exposure: Not on file Alcohol Use: Not on file PHYSICAL EXAM: Right Ankle Exam Tenderness Right ankle tenderness location: posterior aspect of medial malleolus. Swelling: moderate Other Erythema: present Sensation: normal Comments: Patient has roughly 2.6cmu1zg area of erythema on posterior aspect of medial malleolus. He states that he has felt the screw ends from previous ORIF and over the last 3 weeks redness and swelling has worsened. Unable to palpate screws due to pain and swelling. No drainage or purulence noted. Mild warmth. IMAGING: XR tibia fibula 2 views right Imaging Result: AP, Lat and Obliques of the right tib/fib demonstrate previous IM ashwini of right tibia. There are no signs of loosening of hardware but there is soft tissue swelling noted in distal ankle. No acute fracture noted Impression: Previous internal fixation with intramedullary ashwini and screws of right tibia with soft tissue swelling. Procedures Orders Placed This Encounter Procedures XR tibia fibula 2 views right Reason for exam:: pain ASSESSMENT: ICD-10-CM 1. Cellulitis of right lower extremity L03.115 clindamycin (Cleocin) 300 MG capsule 2. Right ankle pain, unspecified chronicity M25.571 3. Right leg pain M79.604 XR tibia fibula 2 views right 4. History of open reduction and internal fixation (ORIF) procedure Z98.890 PLAN: I reviewed xray findings with the patient and discussed treatment options, answered questions. Due to patients erythema and stating that he has felt screw ends protruding over the last couple weeks Ibelieve he may have a cellulitis secondary to hardware irritation. He does not have any fever, night sweats or signs of ascending lymphangitis. I discussed his case with supervising physician and recommend he be seen at [facility]. I discussed his case with Dr. Canada and STAT referral is sent. I will start patient on clindamycin 300mg TID for 7 days. I did draw a border around area of erythema and educated patient to go to the emergency department with any worsening symptoms. Questions answered in laymen terms at the bedside. The diagnosis, home exercise plan and any ongoing restrictions/ recommendations reviewed. If unable to be reached in office, I recommend evaluation at nearest Emergency Room if any symptoms worsened or new symptoms develop for requiring urgent evaluation. [1] Past Medical History: Diagnosis Date Hypertension Prostate cancer (HCC) [2] Past Surgical History: Procedure Laterality Date FOOT SURGERY Left LEG SURGERY Right 2006 Dr Velez OTHER SURGICAL HISTORY Stent placement SHOULDER SURGERY Right VASECTOMY [3] No Known Allergies documented in this encounter Plan of Treatment NameTypePriorityAssociated DiagnosesOrder ScheduleAmbulatory referral to Orthopaedic SurgeryOutpatient ReferralSTAT Cellulitis of right lower extremity History of open reduction and internal fixation (ORIF) procedure Expected: 03/13/2025 (Approximate), Expires: 09/11/2025documented as of this encounter Procedures Procedure NamePriorityDate/TimeAssociated DiagnosisCommentsXR TIBIA FIBULA 2 VIEWS TSWFEVbgexet11/04/2025 8:11 AM EST Right leg pain documented in this encounter Results * XR tibia fibula 2 views right (03/13/2025 8:11 AM EST)Anatomical Region LateralityModalityLower Extremities, Lower LegRightRadiographic Imaging Specimen (Source)Anatomical Location / LateralityCollection Method / Volume Collection TimeReceived Time Narrative 03/13/2025 9:09 AM EST Imaging Result: AP, Lat and Obliques of the right tib/fib demonstrate previous IM ashwini of right tibia. There are no signs of loosening of hardware but there is soft tissue swelling noted in distal ankle. No acute fracture noted Impression: Previous internal fixation with intramedullary ashwini and screws of right tibia with soft tissue swelling. Authorizing ProviderResult TypeResult StatusGrant Efraín Barton NPIMG XR PROCEDURES Final Result documented in this encounter Visit Diagnoses Diagnosis Cellulitis of right lower extremity- Primary Right ankle pain, unspecified chronicity Right leg pain Pain in soft tissues of limb History of open reduction and internal fixation (ORIF) procedure documented in this encounter Care Teams Team MemberRelationshipSpecialtyStart DateEnd Date Guillermo Heard MD [address] [place] [phone] PCP - GeneralFamily Uurnrnke53/2/25documented as of this encounter
--- OUTSIDE RECORDS SUMMARY | 2025-03-13 08:15 | XMS_ITS | Encounter Summary ---
Author Organization [facility] Address [address] [place] [address] Care Team Providers Care Employee Adviser Name Role Phone Guillermo Heard MD Primary Care Provider [phone] Encounter Details DateTypeDepartmentCare Team (Latest Contact Info)Iqmxgkannbm37/04/2025 8:15 AM ESTAncillary Procedure [facility] [address] [place] [address] Arrived Social History Tobacco UseTypesPacks/DayYears UsedDateSmoking Tobacco: FormerCigarettesSex and Gender InformationValueDate RecordedSex Assigned at BirthNot on fileLegal Sex Male06/22/2022 7:01 PM EDTGender IdentityNot on fileSexual OrientationNot on filedocumented as of this encounter Plan of Treatment Not on file documented as of this encounter Procedures Procedure NamePriorityDate/TimeAssociated DiagnosisCommentsXR TIBIA FIBULA 2 VIEWS KNPPSQtcrkuf30/04/2025 8:11 AM EST Right leg pain documented [...] with soft tissue swelling. Authorizing ProviderResult TypeResult StatusChristian Barton NPIMG XR PROCEDURES Final Result documented in this encounter Visit Diagnoses Not on filedocumented in this encounter Care Teams Team MemberRelationshipSpecialtyStart DateEnd Date Guillermo Heard MD [address] [place] [phone] PCP - GeneralFamily Frearxep35/2/25documented as of this encounter
[2025-03-16 14:58] VITALS: BP 157/78; PULSE 92; TEMP 37.1; O2SAT 99; BMI 31.9
--- NOTE | 2025-03-16 15:20 | ED.GENADUL1 ---
HPI HPI - General Adult General Chief complaint: Extremity Problem, Nontraumatic Stated complaint: lower extremity pain Time Seen by Provider: 03/16/25 15:11 Source: patient Mode of arrival: walk-in History of Present Illness HPI narrative: 69-year-old male presented to the emergency department for a rash. All over his body and it started after being started on clindamycin. It is mildly pruritic. No tongue swelling or difficulty breathing or swallowing. He has no previously known allergies. He was put on it because of a rash at his right ankle that he has had for more than a month.. Related Data Home Medications ?Medication ?Instructions ?Recorded ?Confirmed apixaban 5 mg tablet (Eliquis) 2.5 mg PO DAILY 12/06/23 04/21/24 ferrous sulfate 325 mg (65 mg 325 mg PO BID 12/06/23 04/21/24 iron) tablet (FeroSul) furosemide 20 mg tablet 20 mg PO DAILY 12/06/23 04/21/24 metoprolol tartrate 75 mg tablet 75 mg PO BID 12/06/23 04/21/24 rosuvastatin 20 mg tablet 20 mg PO BEDTIME 12/06/23 04/21/24 meclizine 25 mg tablet 25 mg PO BID 02/03/24 04/21/24 ym-euw-oqxzo-J0-cyuwdim-dzljoi 1 tab PO DAILY 02/03/24 04/21/24 Previous Rx's ?Medication ?Instructions ?Recorded prednisone 10 mg tablet See Rx Instructions .Route 03/16/25 .COMPLEX #30 tabs Allergies Allergy/AdvReac Type Severity Reaction Status Date / Time No Known Drug Allergies Allergy Verified 02/03/24 20:43 Opioid HPI Opioid Management Most Recent Opioid Data: Last Pain Scale 6 04/21/24, 09:44 Last ORT Total Score 0 02/04/24, 02:34 Last ORT Risk Category Low Risk 02/04/24, 02:34 Review of Systems ROS Narrative A ten point review of systems is negative except as noted above. [facility] Medical History (Updated 03/16/25 @ 15:19 by Dereck Becerra MD) Prostate cancer ?C61 - Malignant neoplasm of prostate (ICD-10) Herniated disc Hypertension ?I10 - Essential (primary) hypertension (ICD-10) Afib ?I48.91 - Unspecified atrial fibrillation (ICD-10) Family History Other Family history of diabetes mellitus Family history of hypertension Family history of stroke Social History Within the past year, how often did you have a drink containing alcohol: monthly or less Within the past year, how many standard drinks containing alcohol did you have on a typical day: 1 or 2 Total score: 0 Score interpretation: A score less than 4 is consistent with normal alcohol consumption. Smoking status: Former smoker Non-prescribed substance use: denies use Previous occupational history: retired Highest level of school completed/degree received: Associate degree: occupational, technical, vocational program Are you now , , , , never or living with a partner: In a typical week, how many times do you talk on the telephone with family, friends, or neighbors: 3 or more times per week How often do you get together with friends or relatives: 3 or more times per week Little interest or pleasure in doing things: not at all Feeling down, depressed, or hopeless: not at all Feel stressed/tense/nervous/anxious/difficulty sleeping: not at all Do you think of yourself as: straight/heterosexual Gender Identity: male Exam Narrative Exam Narrative: Nurses note and vital signs reviewed General:The patient appears well and in no apparent distress.Patient is resting comfortably on cart. Skin:Warm, dry, no pallor noted.There is confluent erythema at the right ankle. Separately he has rash over most area of his body, primarily the torso. It is erythematous and scattered. Head:Normocephalic, atraumatic Eye: Normal conjunctiva, no drainage Ears, Nose, Mouth, and Throat: oral mucosa is moist. Nares patent. Tongue not swollen. Speech normal Cardiovascular:Regular Rate and Rhythm Respiratory:Patient is in no distress, no accessory muscle use, lungs are clear to auscultation, no wheezing, rales or rhonchi Back:non-tender GI: Soft and nontender Musculoskeletal: The patient has no evidence of calf tenderness, no pitting edema, symmetrical pulses noted bilaterally Neurological:A&O, normal speech Psychiatric:Cooperative Constitutional Vital Signs, click to edit/add: Last Vital Signs Temp 98.7 F 03/16/25 14:58 Pulse 92 H 03/16/25 14:58 Resp 20 03/16/25 14:58 BP 157/78 H 03/16/25 14:58 Pulse Ox 99 03/16/25 14:58 Course Vital Signs Vital signs: Vital Signs Temperature 98.7 F 03/16/25 14:58 Pulse Rate 92 H 03/16/25 14:58 Respiratory Rate 20 03/16/25 14:58 Blood Pressure 157/78 H 03/16/25 14:58 Pulse Oximetry 99 03/16/25 14:58 Temperature 98.7 F 03/16/25 14:58 Pulse Rate 92 H 03/16/25 14:58 Respiratory Rate 20 03/16/25 14:58 Blood Pressure 157/78 H 03/16/25 14:58 Pulse Oximetry 99 03/16/25 14:58 Medical Decision Making MDM Narrative Medical decision making narrative: The patient presents with an allergic reaction to clindamycin which she will discontinue. He was given IM Benadryl and Solu-Medrol and prescribed prednisone. He will continue Benadryl at home. I suspect that the rash of his right ankle is a vasculitis but this workup is already in progress and does not need intervention today. Differential Diagnosis Differential Diagnosis: Allergic reaction Discharge Plan Discharge Chief Complaint: Extremity Problem, Nontraumatic Clinical Impression: Allergic reaction caused by a drug Patient Disposition: Home, Self-Care Time of Disposition Decision: 15:19 Condition: Good Mode of Transportation: Private Vehicle Prescriptions / Home Meds: New prednisone 10 mg tablet See Rx Instructions .ROUTE .COMPLEX Qty: 30 0RF Rx Instructions: 4 by mouth daily for three days then 3 by mouth daily for three days then 2 by mouth daily for three days then 1 by mouth daily for three days No Action meclizine 25 mg tablet 25 mg PO BID um-wvv-gjelh-H8-mloiuda-qzstxi [Centrum Silver Men] 1 tab PO DAILY Eliquis 5 mg tablet 2.5 mg PO DAILY ferrous sulfate [FeroSul] 325 mg (65 mg iron) tablet 325 mg PO BID furosemide 20 mg tablet 20 mg PO DAILY metoprolol tartrate 75 mg tablet 75 mg PO BID rosuvastatin 20 mg tablet 20 mg PO BEDTIME Print Language: French Instructions: Antibiotic Medication Allergy (ED) Additional Instructions: Discontinue clindamycin Ebqk-vjg-dtriaax Benadryl for itching Referrals: Guillermo Heard MD [Primary Care Provider, Family Practice] - 1 week
--- OUTSIDE RECORDS SUMMARY | 2025-03-16 15:24 | XMS_ITS | CCD ---
Author Organization [facility] CliniSy[facility] Care Team Providers Care Tanner Rotary Drum Continuous Process Name Role Phone MAMTA STEPHENSON Attending Unavailable SELF, REFERRED Primary Care Unavailable SELF, REFERRED Referring Unavailable MAMTA STEPHENSON Admitting Unavailable Guillermo Chance Primary Care Physician Guillermo Chance MD Primary Care Provider [phone] NILL ., DR CURRY Admitting Unavailable [...] DR AWAN Admitting Unavailable HOY ., DR WAAN Attending Unavailable HOY ., DR AWAN Consulting [...] Attending UnavailGuillermo Martini MD Primary Care Provider [phone] Quinton WILLIAMSON Attending Unavailable GUILLERMO CHANCE Referring Unavailable GUILLERMO CHANCE Primary Care Unavailable ALGHOTHANI, MOHAMAOlga Admitting Unavailable ALGHOTHANI, MOHAMAD Attending Unavailable MAMTA STEPHENSON Attending Unavailable ALGHOTHANI, MOHUSHA Attending Unavailable JASWINDER BUCKNER Attending Unavailable ALGHOTHANI, MOHAMAD Referring Unavailable ALGHOTHANI, MOHAMAD Referring Unavailable Allergies Allergy ClassificationReported Allergen(s)Allergy TypeDate of OnsetReaction(s) Facility (1 source)No Known Medication Allergies; Translations: [No Known Medication Allergies]Propensity to adverse reactions (disorder)[facility] Repository Medications Current Medications MedicationDrug Class(es)DatesSig (Normalized)Sig (Original)apixaban 5 mg oral tablet (3 sources)Factor Xa InhibitorStart: 54-44-5760ztfd 1 tablet by mouth twice dailyEliquis 5 mg oral tablet 5 mg = 1 tab(s), Oral, BID, Refills(s) 0 Start Date: 03/04/22 Status: Orderedaspirin 81 mg delayed release oral tablet (3 sources)Platelet Aggregation Inhibitor, Nonsteroidal Anti-inflammatory Drug Start: 67-76-5046tsow 1 tablet by mouth once dailyaspirin 81 mg Oral EC Tab 81 mg = 1 tab(s), Oral, Daily, Refills(s) 0 Start Date: 03/08/22 Status: Ordered ciprofloxacin 500 mg oral tablet (2 sources)Quinolone AntimicrobialStart: 58-76-4542Jaeya 500 mg Tab See Instructions, 1 tab po night prior to cysto. 1 tab po following cysto., # 2 tab (s), Refills(s) 0, Pharmacy: [id number], 173, cm, 06/10/24 12:48:00 EST, Height/Length Dosing, 100, kg, 06/10/24 12:48:00 EST, Weight Dosing Start Date: 06/10/24 Status: Ordereddiclofenac sodium 75 mg delayed release oral tablet (1 source)Nonsteroidal Anti-inflammatory DrugStart: 04-19-1208jvrk 1 tablet by mouth twice dailydiclofenac sodium 75 mg Oral EC Tab 75 mg = 1 tab(s), Oral, BID, Refills(s) 0 Start Date: 03/04/22 Status: Orderedferrous sulfate 325 mg delayed release oral tablet (3 sources)Start: 35-38-7761inco 1 tablet by mouth twice dailyferrous sulfate 325 mg oral enteric coated tablet 325 mg = 1 tab(s), Oral, BID, Refills(s) 0 Start Date: 03/04/22 Status: Orderedfurosemide 20 mg oral tablet (2 sources)Loop DiureticStart: 68-57-5877wyzj 1 tablet by mouth once dailyLasix 20 mg Tab 20 mg = 1 tab(s), Oral, Daily Start Date: 06/10/24 Status: Ordered lansoprazole 30 mg delayed release oral capsule (1 source)Proton Pump InhibitorStart: 33-27-3164hfdq 1 capsule by mouth once dailylansoprazole 30 mg Cap-DR 30 mg = 1 cap(s), Oral, Daily, Refills(s) 0 Start Date: 03/29/22 Status: Orderedlisinopril 10 mg oral tablet (1 source)Angiotensin Converting Enzyme InhibitorStart: 95-56-2401mamv 1 tablet by mouth once dailylisinopril 10 mg Tab 10 mg = 1 tab(s), Oral, Daily, Refills(s) 0 Start Date: 03/04/22 Status: Orderedmeclizine hydrochloride 25 mg oral tablet (2 sources)AntiemeticStart: 54-48-0860ekxs 1 tablet by mouth once dailymeclizine 25 mg Tab 25 mg = 1 tab(s), Oral, Daily Start Date: 06/10/24 Status: Ordered metoprolol tartrate 75 mg oral tablet (3 sources)beta-Adrenergic BlockerStart: 09-06-5384tuyc 1 tablet by mouth twice dailymetoprolol tartrate [...] mouth once daily.Multivitamins and Minerals (3 sources)Start: 00-44-3615Yhuzwbimizzfq and Minerals See Instructions, Refill(s) 0 Start Date: 10/02/18 Status: Orderedrosuvastatin calcium 20 mg oral tablet (3 sources)HMG-CoA Reductase InhibitorStart: 71-51-5435fjmi 1 tablet by mouth once dailyrosuvastatin 20 mg Tab 20 mg = 1 tab(s), Oral, Daily, Refills(s) 0 Start Date: 03/08/22 Status: Orderedsucralfate 1000 mg oral tablet (1 source)Aluminum ComplexStart: 48-12-1078nerz 1 tablet by mouth four times dailyCarafate 1 gram Tab 1 gm = 1 tab(s), Oral, QID, # 120 tab(s), Refills(s) 3, Pharmacy: [facility] #[id number], 177.8, cm, 03/08/22 15:41:00 EST, Height/Length Dosing, 91, kg, 03/08/22 15:41:00 EST, Weight Dosing Start Date: 03/08/22 Status: Ordered Completed/Discontinued Medications MedicationDrug Class(es)DatesSig (Normalized)Sig (Original)Acetaminophen (5 sources) End: 10-02-6404FBRUIRRUXHPAY (TYLENOL EXTRA STRENGTH ORAL) Take by mouth. 06/18/2024 DiscontinuedACETAMINOPHEN (TYLENOL EXTRA STRENGTH ORAL) Take by mouth. 0 ActiveComment on above:Take by mouth.celecoxib 200 mg oral capsule (5 sources)Nonsteroidal Anti-inflammatory DrugStart: 06-19-2018 End: 58-31-0181ilmbzvouu (CELEBREX) 200 mg capsule twice daily. 06/19/2018 06/18/2024 DiscontinuedComment on above:twice daily. ibuprofen 200 mg oral tablet (5 sources)Nonsteroidal Anti-inflammatory Drug End: 51-24-9510sxks 1 tablet by mouth every six hours as neededibuprofen (MOTRIN) 200 mg tablet Take 200 mg by mouth every 6 hours as needed. 06/18/2024 DiscontinuedComment on above:Take 200 mg by mouth every 6 hours as needed. tamsulosin hydrochloride 0.4 mg oral capsule (5 sources)alpha-Adrenergic BlockerStart: 06-27-2018 End: 41-00-8396vjkd 1 capsule by mouth once daily at bedtimetamsulosin ER (FLOMAX) 0.4 mg cap Take 1 capsule by mouth daily at bedtime. 30 capsule 11 06/27/2018 06/18/2024 DiscontinuedComment on above:Take 1 capsule by mouth daily at bedtime.TURMERIC, BULK, MISC (5 sources) End: 78-74-9325JCFJHJNF, BULK, MISC 06/18/2024 DiscontinuedTURMERIC, BULK, MISC valACYclovir 1000 mg oral tablet (5 sources)Herpesvirus Nucleoside Analog DNA Polymerase Inhibitor, Herpes Simplex Virus Nucleoside Analog DNA Polymerase Inhibitor, Herpes Zoster Virus Nucleoside Analog DNA Polymerase InhibitorStart: 06-09-2018 End: 56-61-4676wmlYOSmyrfjt (VALTREX) 1 gram tab 06/09/2018 06/18/2024 Discontinued Problems Active Problems Problem ClassificationProblemDateDocumented DateEpisodic/ChronicAbdominal hernia (3 sources)Umbilical azgpnf14-68-4339VzwqkzaaYmbzkz; peripheral; and visceral artery aneurysms (7 sources)Aneurysm of thoracic aorta; Translations: [Thoracic aortic aneurysm, without rupture]Onset: 936527-85-5444UcrdqtzTabdyizi of urinary tract (3 sources)Kidney stone; Translations: [Calculus of kidney]Onset: 06-10-2024 45-86-4890UoknerbwKcfqdh of prostate (3 sources)Malignant tumor of prostate; Translations: [Malignant neoplasm of prostate]ChronicCancer of prostate (17 sources)History of malignant neoplasm of prostate; Translations: [Personal history of malignant neoplasm ofprostate]Onset: 168083-30-0063Miqxchwt Cardiac dysrhythmias (6 sources)Atrial fibrillation; Translations: [Unspecified atrial fibrillation] Onset: 324374-73-0070ErorfwcOmqhtguc (3 sources)Fwisehud34-36-4768RzdxgafSlbxyngh atherosclerosis and other heart disease (7 sources)Coronary arteriosclerosis; Translations: [Atherosclerotic heart disease of belkofski coronary artery without angina pectoris]Onset: 12-24-2021 55-53-9562OqzjctzYkqsmlgkrw and other anemia (3 sources)Qzvary47-99-9058FxetlxpyOstjtrlacf and other anemia (3 sources)Iron deficiency -10-3640FdypddftVjldhnwio of lipid metabolism (2 sources)Hyperlipidemia, unspecified; Translations: [Hyperlipidemia, unspecified]Onset: 11-10-0033GionmayGopjecsitxxutz and diverticulitis (5 sources)Diverticula of intestine; Translations: [Diverticulosis of intestine, part unspecified, without perforation or abscess without bleeding]Onset: 74-79-8023VtvqtbjZxdvmyjeo hypertension (7 sources)Hypertensive disorder; Translations: [Essential (primary) hypertension]Onset: 072836-17-6088MrikmdcHchkrvdjg and duodenitis (1 source)Unspecified chronic gastritis without bleeding; Translations: [UNS CHRONIC GASTRITIS W/O BLEEDING]Onset: 50-60-0025YvtcondSdvxlvzmk and duodenitis (7 sources)Gastritis; Translations: [Other gastritis without bleeding]Onset: 90-95-5536KlbrkbatSfpohrxfrgxbatbn hemorrhage (10 sources)Melena; Translations: [Rectal hemorrhage]Onset: EpisodicGenitourinary symptoms and ill-defined conditions (1 source)Blood in urine; Translations: [Gross hematuria]Onset: 06-10-2024 EpisodicGout and other crystal arthropathies (3 sources)Mkpe55-24-4037XlxhgatYdoqlslhskx of prostate (3 sources)Benign prostatic wtbmjtrwfme92-85-7755FqtwhisVeunnunbdlhrw and screening for infectious disease (3 sources)Raised Helicobacter pylori ilbybfqj14-45-3470KbzbniiqJnhheqregtx deficiencies (1 source)Vitamin D deficiency, unspecified; Translations: [VITAMIN D DEFICIENCY UNSPECIFIED]Onset: 86-40-3941GutbfgbGqdpwmyqtigjyx (1 source)Unspecified osteoarthritis, unspecified site; Translations: [UNSPECIFIED OSTEOARTHRITIS UNS SITE]Onset: 02-99-4776UkdflzdShqgi aftercare (3 sources)Long-term current use of zdkxihwpzertt96-05-8734RgyvkdxgKfqog diseases of kidney and ureters (2 sources)Cyst of -31-6084UewzodqkGhkec diseases of kidney and ureters (1 source)Acquired renal cyst without neoplastic change; Translations: [Cyst of kidney, acquired]Onset: 23-36-0891JbepyeixKowhy disorders of stomach and duodenum (3 sources)Hykvyitnnju74-18-5841FoaelwedLfbsg gastrointestinal disorders (3 sources)Alteration in bowel vbqzvasnfcw19-87-3746CnzsuvsqCgknm gastrointestinal disorders (3 sources)Occult blood in xahuga02-82-1459AknavwbaBvmbh nervous system disorders (3 sources)H/O: retinal kthfsekfok21-18-1194JeeuugjtVtich nervous system disorders (3 sources)Vlwjymfcpnf19-67-7161DrubucanRijcu nutritional; endocrine; and metabolic disorders (3 sources)Overweight in adulthood with body mass index of 25 or more but less than 4296-19-6518JtdacnjwDbpox nutritional; endocrine; and metabolic disorders (3 sources)Unintentional weight owdi29-32-1488ZmbgavrcJnzbgiou codes; unclassified (3 sources)Sleep ydrks54-09-9438YhxlusvHkjgemvr codes; unclassified (1 source)Sleep apnea, unspecified; Translations: [SLEEP APNEA UNSPECIFIED] Onset: 32-01-9826McwzeseHpsvhiw detachments; defects; vascular occlusion; and retinopathy (3 sources)Epiretinal vkwukqbw41-43-0931MnbtwdwZvtderlmu-axrpqno disorders (4 sources)Smoker; Translations: [Nicotine dependence, cigarettes, uncomplicated]Onset: 621739-77-0378VljmmvbOekfimxtmzjo (1 source)CONTACT W/AND (SUSP) EXPOS COVID-19; Translations: [CONTACT W/AND (SUSP) EXPOS COVID-19]Onset: 68-78-4426Oeigjfkbpegn (1 source)PERSONAL HISTORY OF COVID-19; Translations: [PERSONAL HISTORY OF COVID-19]Onset: 46-23-8340Wwmlyjysnver (1 source)Aneurysm of the ascending aorta, without rupture; Translations: [Aneurysm of the ascending aorta, without rupture]Onset: 12-11-2021 Past or Other Problems Problem ClassificationProblemDateDocumented DateEpisodic/ChronicDeficiency and other anemia (4 sources)Iron deficiency anemia, unspecified; Translations: [IRON DEFICIENCY ANEMIA UNSPECIFIED]Onset: 04-93-2950HqwhsxnhOsavemxfza and other anemia (1 source)Anemia, unspecified; Translations: [ANEMIA UNSPECIFIED]Onset: 89-31-8307GhadvxexKjqtwuot mellitus without complication (1 source)Other abnormal glucose; Translations: [OTHER ABNORMAL GLUCOSE]Onset: 63-32-5356LftjtmfeFkiyd and electrolyte disorders (1 source)Volume depletion, unspecified; Translations: [VOLUME DEPLETION UNSPECIFIED]Onset: 88-70-1473AcmnherdEeykdxs and fatigue (4 sources)Other fatigue; Translations: [OTHER FATIGUE]Onset: 36-02-5141Uciydiyr Nonspecific chest pain (5 sources)Chest pain, unspecified; Translations: [Other chest pain]Onset: 86-86-4160SaqaktlzEfgzo aftercare (6 sources)Radiotherapy follow-up; Translations: [Encounter for follow-up examination after completed treatment for conditions other than malignant neoplasm]Onset: 112103-77-5207XgtnmgueMlfbs aftercare (1 source)terminal make up operator (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) use of anticoagulants; Translations: [UNIFORM ATTENDANT CURRNT USE ANTICOAGULANTS]Onset: 37-66-0832UxrkfcagFriho aftercare (1 source)longterm (current) use of aspirin; Translations: [CORRECTION CURRENT USE OF ASPIRIN]Onset: 65-49-2666LjbkomxrIbhtw aftercare (1 source)Other supervisor long goods (current) drug therapy; Translations: [OTH CORRECTION CURRENT DRUG THERAPY]Onset: 24-68-8230YmsqzwjdAzbmf circulatory disease (1 source)Hypotension, unspecified; Translations: [HYPOTENSION UNSPECIFIED] Onset: 26-31-1027RlboxkwjFmfdq diseases of kidney and ureters (1 source)Disorder of kidney and ureter, unspecified; Translations: [DISORDER KIDNEY AND URETER UNS]Onset: 72-07-1977RfehhdgdXnlyn gastrointestinal disorders (1 source)Diarrhea, unspecified; Translations: [DIARRHEA UNSPECIFIED]Onset: 18-17-9450NzrysdszKawgz lower respiratory disease (1 source)Acute respiratory distress; Translations: [ACUTE RESPIRATORY DISTRESS] Onset: 16-17-3449WmeqeuvqIpftt lower respiratory disease (1 source)Personal history of pneumonia (recurrent); Translations: [PERSONAL HX OF PNEUMONIA RECURRENT]Onset: 87-76-5858BbvosrajIlbhf lower respiratory disease (2 sources)Other forms of dyspnea; Translations: [Other forms of dyspnea]Onset: 99-79-4223ZangcumyMxlah nutritional; endocrine; and metabolic disorders (4 sources)Abnormal weight loss; Translations: [ABNORMAL WEIGHT LOSS]Onset: 78-10-0193SggdyrxyHaijh screening for suspected conditions (not mental disorders or infectious disease) (4 sources)Encounter for screening for malignant neoplasm of rectum; Translations: [Other specified abnormal findings of blood chemistry]Onset: 47-92-2289LvnqhadhFmutnenoe and history of mental health and substance abuse codes (1 source)Personal history of nicotine dependence; Translations: [PERSONAL HISTORY OF NICOTINE DEPEND]Onset: 71-20-1548FocjdwfmLpzigcxiupgo (1 source)Aneurysm of the ascending aorta, without rupture; Translations: [Aneurysm of the ascending aorta, without rupture]Onset: 01-22-2025 Results Test NameValueInterpretationReference RangeFacilityOffice Visiton 01-22-2025 Follow-up [id number] Pablo Beckman 1955 M Date Provider Department Center 01/22/2025 245-JASWINDER BUCKNER [facility] Family History Problem Relation Age of Onset Stroke Mother Parkinsonism Father Family Status - Relation Status Age at Mother Father Sister Alive Level of Service:48918 [place] OFFICE/OUTPATIENT ESTABLISHED LOW MDM 20 MIN Reason for Visit and Comments: Follow-up [740431] - Patient is here today for a 6 month follow up appointment. Patient denies chest pain, leg swelling, racing heart/palpitations.Complains of SOB/ANDERSON, bleeding/bruising/discoloration, fatigue if he over works himself. Aneurysm of ascending aorta [Other] Hypertension [781112] Left ventricular systolic dysfunction [Other] Atrial Fibrillation [80] NSVT [Other] Coronary Artery Disease [187] Hyperlipidemia [182]NormalKettering Health Springfield36on 58-55-585730Uz can take 2 tablets in the AM instead, follow-up BMP in 1-2 weeks. [facility]36on 62-62-762881Psqq, higher than goal of <130/90. We will see how his BP responds to increase in lasix. Follow-up BP check in 2 weeks please and thank you![place] [address]on 23-28-736715Qi can do that instead, follow-up BMP in 1-2 weeks after the increase. ThanksSelect [facility] Follow-Upon [id number] Pablo Beckman 1955 M Date Provider Department Center 07/18/2024 MAMTA EGAN Family History Problem Relation Age of Onset Stroke Mother Parkinsonism Father Family Status - Relation Status Age at Mother Father Sister Alive Level of Service:67773 [place] OFFICE/OUTPATIENT ESTABLISHED MOD MDM 30 MIN Reason for Visit and Comments: Coronary Artery Disease [187] Hypertension [570051] Hyperlipidemia [182][facility] NorthTelephoneon [id number] Pablo Beckman 1955 M Date Provider Department Center 07/18/2024 HEBER SIDDIQUI Family History Problem Relation Age of Onset Stroke Mother Parkinsonism Father Family Status - Relation Status Age at Mother Father Sister AliveNoalUniSelect Medical Specialty Hospital - TrumbullCNPNon 53-47-1961WGLG Telephone (SUDHAKARA) PABLO BECKMAN ([id number]) 1955 M Date Time Provider Department 06/20/24 Quinton WILLIAMSON During your visit today, we recorded the following information about you: Josefina Ring RN 06/20/2024 9:58 AM Signed Message Received: 2 days ago Quinton Williamson MD P Radt [facility] Rad Nurse Froilan; Josefina Mulligan One year with psa [place] 06/20/2024 11:07 AM Signed Appointment scheduled in 1 year, will need to fax PSA order to [place] when available. Josefina Ring RN 06/20/2024 11:16 AM Signed GAYLE- please sign order. Josefina Ring, Kitty Garvey 06/24/2024 12:59 PM Signed Pablo is scheduled for his 1 year follow up on 06/18/24 at 4:30. His lab order has been faxed to [facility]. Kitty Valle PSS Allergies As of Date: 06/20/2024 (No Known Allergies) Date Reviewed: 06/24/2020 Reviewed by: Felecia Benites (Christopher)CHRISTOPHER - Fully Assessed Reason for Visit: Future Appointment [256] Primary Visit Diagnosis:Personal history of prostate cancer [Z85.46] Order(s):PROSTATE-SPECIFIC ANTIGEN DIAGNOSTIC [SQPSA] Order #: [id number] FUTURE Prescriptions as of 06/24/2024 - Multivitamin capsule Take 1 capsule by mouth once daily. Problem List As Of Date 06/20/2024 Noted Resolved Personal history of prostate cancer [Z85.46] 10/31/2013 Radiotherapy follow-up [Z09] 06/10/2014 Encounter Status:Closed by JOSEFINA RING on 06/24/24[facility] [id number] Attestation signed by Alexi Medina MD at 06/30/2024 8:33 PM Agree with fellow's note as documented. Alexi Medina MD ND Cardiology Patient: Pablo Beckman Procedure Information Date/Time: 06/19/24 1030 Procedure: Coronary angiography (Bilateral) Location: [facility] INSTRUCTOR PHYSICAL EDUCATION 3 / [facility] (Cath) Providers: Alexi Medina MD Clinical information reviewed: [facility] Physical Exam Airway Mallampati: III Neck ROM: full Cardiovascular Rhythm: regular Rate: normal Dental Pulmonary Breath sounds clear to auscultation Abdominal (+) obese Anesthesia Plan ASA 3 other (Moderate Sedation) Anesthetic plan and risks discussed with patient. Use of blood products discussed with patient who consented to blood products. Additional Equipment RequestsNormalUniversity of Brooke Army Medical CenterHPon 31-42-3127AD Attestation signed by Alexi Medina MD at [...] past medical history of Aneurysm, Atrial fibrillation ([facility]), Coronary artery disease, Diastolic dysfunction, Hyperlipidemia, Hypertension, Left ventricular systolic dysfunction, and NSVT (nonsustained ventricular tachycardia) ([facility]). Surgical History He has a [...] Assessment/Plan Abnormal stress test Paroxysmal atrial fibrillation SBL-xdn-rxoclvxnxix [moderate coronary artery disease of OM1 and distal LAD] on cath 2020 Hypertension Aortic aneurysm-stable at 4.2 cm CTA chest -All prior tests have been reviewed. -Patient is scheduled for a coronary angiogram today. -Further recommendations post procedure.[facility] NorthNURSNOTEon 93-72-4651CEBFNFZQNQ educated pt on d/c instructions. This included: [...] wheeled off of unit with all of belongings.[facility] NorthUrine Cytology ([facility])on 05-57-5059Tyloznncnva exam Cytology (U) [Interp]Diagnosis InfoInvalid Interpretation [facility] Comment on above:Result Comment: A:Urine,Urine:Voided Interpretation - Adequate cellularity for evaluation. CPT 63886 MicroScopic Description - Adequacy - Gross Description Site ID:A color Bright Yellow fixative Alcohol Specimen designated Urine received in alcohol preservative and labeled with the patient???s name, consists of 110ml clear bright yellow fluid. Electronically signed by : on: 06/13/2024 14:03:40Performed By: #### [id number] #### [facility] [address], [place] [address]FPH (OUTSIDE)on 15-17-6007Iazyffgbt ClinicUrine Cytology ([facility])on 24-60-4105TI Method of ExtractionVoidedMercy Memorial Hospital Comment on above:Performed By: #### [id number] #### [facility] [address] [place] [id number] Number of [id number] Interpretation CodePremier Health Atrium Medical CenterComment on above:Performed By: #### [id number] #### [facility] [address] [place] [id number] SpecimenUrineMercy Memorial HospitalComment on above:Performed By: #### [id number] #### [facility] [address] [place] [id number] Type of ServiceTechnical OnlyMercy Memorial HospitalComment on above:Performed By: #### [id number] #### [facility] [address] [place] [id number] Office/Clinic Noteon 50-96-0386Wjrarfo Office/Clinic NoteUrology Office/Clinic Note Chief Complaint New [...] cysto., # 2 tab(s), Refills(s) 0, Pharmacy: [facility][id number], 173, cm, 06/10/24 12:48:00 EST, Height/Length Dosing, 100, kg, 06/10/24 12:48:00 EST, Weight Dosing E&M of New Patient Moderate 45-59 Min 91149 Urnls Dip Stick Auto w/o Microscopy POC 00057 2. H/O prostate cancer (Z85.46: Personal history of malignant neoplasm of prostate) Hx of prostate CA, tx'd w radium seeds 10/10/13. Follows with Dr. Williamson annually. PSA 06/13/23 - <0.13 05/08/24 - <0.1 Ordered: E&M of New Patient Moderate 45-59 Min 43005 3. Kidney stones (N20.0: Calculus of kidney) CT 06/03/24 - There are punctate bilateral renal calculi. There are no ureteral stones in the field of view. Ordered: E&M of New Patient Moderate 45-59 Min 41845 4. Renal cyst (N28.1: Cyst of kidney, acquired) Advised pt small cysts do not require monitoring. Follow-up With When Contact Information [facility] [place] [address] Business (1) Additional Instructions: our mechanic and welder will be contacting you for follow-up Patient Education Hematuria, Adult Problem List/Past Medical History Ongoing Anemia Atrial fibrillation Bile reflux gastritis BMI 28.0-28.9,adult BPH (benign prostatic hyperplasia) Cataract Change in bowel habits Coronary arteriosclerosis Diverticulosis Dyspepsia Gout H/O prostate cancer Helicobacter pylori ab+ Helicobacter pylori gastritis History of retinal detachment HTN (hypertension) Hypertensive disorder Iron deficiency anemia Kidney stones longterm current use of anticoagulant Macular puckering Melena Occult blood positive stool Paresthesia RB (rectal bleeding) Rectal bleeding Renal cyst Sleep apnea (more content not included)...NormalPremier Health Atrium Medical CenterComment on above: Result Comment: Electronically Signed By: WALLACE WEI PA-C.eber\Date and Time Signed: 06/10/2512:21 ESTOffice Visiton 29-88-8560Jgbjqg-up [id number] Pablo Beckman 1955 M Date Provider Department Center 06/03/2024 3848-ALEXI MEDINA [place] [facility] Family History Problem Relation Age of Onset Stroke Mother Family Status - Relation Status Age at Mother Level of Service:[address] [place] OFFICE/OUTPATIENT ESTABLISHED MOD MDM [facility] SpringfieldCovid-19 PCR (CVDTB)on 37-09-4582BXVS-CoV-2 (COVID-19) RNA ISIDRO+probe Ql (Unsp spec)Not detectedNormalNOT DETECTEDThe [facility] HospitalComment on above:Result Comment: This test is not yet approved or cleared by the [place] FDA. When there are no FDA-approved or cleared tests available, and other criteria are met, FDA can make tests available under an emergency access mechanism called an Emergency Use Authorization (EUA). The EUA for this test is supported by the [place] of Health and Human Service's (HHS's) declaration [...] #### TSH, T7, LIPA, EMILY, CMP #### [facility] [address] [place], [place] [address] Dr. Emely Frazier AUTO DIFFon [id number] #0.0 103/ulNormal0.0-0.1The [facility] on above:Performed By: #### TSH, T7, LIPA, EMILY, CMP #### [facility] [address] [address] [address] Emely AdrianBasophils/100 WBC (Bld)0.1 %Critically low0.2-2.0The [facility] HospitalComment on above:Performed By: #### TSH, T7, LIPA, EMILY, CMP #### [facility] [address] [place] [address] Dr. Emely HullO #0.2 103/ulNormal0.0-0.7The [facility] HospitalComment on above: Performed By: #### TSH, T7, LIPA, EMILY, CMP #### [facility] [address] [place] [address] Dr. Emely Hullosinophils/100 WBC (Bld)3.2 %Normal0.9-7.0The [facility] Comment on above:Performed By: #### TSH, T7, LIPA, EMILY, CMP #### [facility] [address] [place] [address] Dr. Emely Hullrythrocyte distribution width (RBC) [Ratio]15.8 %Critically high 11.0-15.0The [facility] on above:Performed By: #### TSH, T7, LIPA, EMILY, CMP #### [facility] [address] [place] [address] Dr. Emely AdrianHematocrit (Bld) [Volume fraction]26.6 %Critically low42.0-54.0 The [facility] HospitalComment on above:Performed By: #### TSH, T7, LIPA, EMILY, CMP #### [facility] [address] [place] [address] Dr. Emely AdrianHemoglobin (Bld) [Mass/Vol]9.0 g/dLCritically low14.0-18.0The [facility] HospitalComment on above:Performed By: #### TSH, T7, LIPA, EMILY, CMP #### [facility] [address] [address] [address] Emely Casiano #0.05 10e3/ulCritically high0.00-0.03The [facility] Comment on above:Performed By: #### TSH, T7, LIPA, EMILY, CMP #### [facility] [address] [place] [address] Dr. Emely Casiano %0.7 %Critically high0.0-0.5The [facility] HospitalComment on above:Performed By: #### TSH, T7, LIPA, EMILY, CMP #### [facility] [address] [place] [address] Dr. Emely Petit #1.8 103/ulNormal1.2-3.8The [facility] HospitalComment on above:Performed By: #### TSH, T7, LIPA, EMILY, CMP #### [facility] [address] [place] [address] Dr. Emely Canashocytes/100 WBC (Bld)24.2 %Gtywms86.5-60.0The [facility] HospitalComment on above:Performed By: #### TSH, T7, LIPA, EMILY, CMP #### [facility] [address] [place] [address] Dr. Emely MichelleUAL DIFF REQNONormalThe [facility] HospitalComment on above: Performed By: #### TSH, T7, LIPA, EMILY, CMP #### [facility] [address] [place] [address] Dr. Emely Constantino (RBC) [Entitic mass]32.7 svYjpthc89.9-34.0The [facility] HospitalComment on above:Performed By: #### TSH, T7, LIPA, EMILY, CMP #### [facility] [address] [place] [address] Dr. Emely Constantino (RBC) [Mass/Vol]33.8 g/fPNjcfms38.9-35.2The [facility] HospitalComment on above:Performed By: #### TSH, T7, LIPA, EMILY, CMP #### [facility] [address] [place] [address] Dr. Emely Smith (RBC) [Entitic vol]96.7 fLCritically high80.0-94.0The [facility] HospitalComment on above:Performed By: #### TSH, T7, LIPA, EMILY, CMP #### [facility] [address] [place] [address] Dr. Emely Zamarripa #1.3 103/ulCritically high0.3-0.8The [facility] Comment on above:Performed By: #### TSH, T7, LIPA, EMILY, CMP #### [facility] [address] [place] [address] Dr. Emely Ellisocytes/100 WBC (Bld)18.0 %Critically high1.7-12.0The [facility] HospitalComment on above:Performed By: #### TSH, T7, LIPA, EMILY, CMP #### [facility] [address] [place] [address] Dr. Emely Del Real #4.0 103/ulNormal1.4-6.5The [facility] HospitalComment on above:Performed By: #### TSH, T7, LIPA, EMILY, CMP #### [facility] [address] [place] [address] Dr. Emely Maddenutrophils/100 WBC (Bld)53.8 %Wrziwv75.0-75.0The [facility] HospitalComment on above:Performed By: #### TSH, T7, LIPA, EMILY, CMP #### [facility] [address] [place] [address] Dr. Emely Weller mean volume (Bld) [Entitic vol]8.7 fLCritically low 9.5-13.5The [facility] HospitalComment on above:Performed By: #### TSH, T7, LIPA, EMILY, CMP #### [facility] [address] [place] [address] Dr. Emely AdrianPLT320 103/lwFuoajs736-387Pvw [facility] HospitalComment on above: Performed By: #### TSH, T7, LIPA, EMILY, CMP #### [facility] [address] [place] [address] Dr. Emely AdrianRBC2.75 106/ulCritically low4.70-6.10The [facility] on above:Performed By: #### TSH, T7, LIPA, EMILY, CMP #### [facility] [address] [place] [address] Dr. Emely AdrianWBC7.5 103/ulNormal4.0-11.0The [facility] HospitalComment on above: Performed By: #### TSH, T7, LIPA, EMILY, CMP #### [facility] [address] [place] [address] Dr. Emely AdrianLACTATE/LACTIC ACIDon [id number] [Moles/Vol]0.7 mmol/L Normal0.4-1.9The [facility]ment on above:Performed By: #### TSH, T7, LIPA, EMILY, CMP #### [facility] [address] [place] [address] Dr. Emely AdrianLIPASEon [id number] [Catalytic activity/Vol]386.0 U/LNormal 73.0-393.0The [facility]ment on above:Performed By: #### CBC #### [facility] [address] [place] [address] Dr. Emely AdrianPROF 14(COMP METB)on 08-01-5030Bprmsbj [Mass/Vol]2.9 g/dL Critically low3.4-5.0The [facility] HospitalComment on above:Performed By: #### CMP #### [facility] [address] [place] [address] Dr. Emely AdrianAlbumin/Globulin [Mass ratio]0.7 {ratio}NormalThe [facility] Hospitalment on above:Performed By: #### CMP #### [facility] [address] [place] [address] Dr. Emely AdrianALP [Catalytic activity/Vol]43 U/LCritically yar18-492Oot [facility] HospitalComment on above:Performed By: #### CMP #### [facility] [address] [address] [address] Emely MorenoT [Catalytic activity/Vol]23 U/BFwyxzt23-76Fwi [facility] HospitalComment on above:Performed By: #### CMP #### [facility] [address] [address] [address] Emely Barreraon gap [Moles/Vol]13.4 mmol/LNormalThe [facility] Comment on above:Performed By: #### CMP #### [facility] [address] [address] [address] Emely AdrianAST [Catalytic activity/Vol]21 U/RYrgndk09-42Jqr [facility] HospitalComment on above:Performed By: #### CMP #### [facility] [address] [address] [address] Emely AdrianBilirubin [Mass/Vol]0.4 mg/dLNormal0.2-1.0The [facility] Comment on above:Performed By: #### CMP #### [facility] [address] [address] [address] Emely AdrianCalcium [Mass/Vol]8.3 mg/dLCritically low8.5-10.1The [facility] HospitalComment on above:Performed By: #### CMP #### [facility] [address] [address] [address] Emely AdrianChloride [Moles/Vol]104 mmol/AGzjkgg17-979Cuo [facility] Comment on above:Performed By: #### CMP #### [facility] [address] [address] [address] Emely AdrianCO2 [Moles/Vol]22.9 mmol/XAbsjpm99.0-32.0The [facility] Comment on above:Performed By: #### CMP #### [facility] [address] [address] [address] Emely AdrianCreatinine [Mass/Vol]1.80 mg/dLCritically high0.70-1.30The [facility] HospitalComment on above:Performed By: #### CMP #### [facility] [address] [address] [address] Emely HullGFR-AF EJGCZFJN05 mL/min/1.45e2Gekfhdgewk low>=60The [facility] HospitalComment on above:Performed By: #### CMP #### [facility] [address] [address] [address] Emely HullGFR-NON AF TAPLYACO83 mL/min/1.99m7Yarpbxreie low>=60The [facility] HospitalComment on above:Performed By: #### CMP #### [facility] [address] [address] [address] Emely AdrianGlobulin (S) [Mass/Vol]4.3 g/dLNormalThe [facility] HospitalComment on above:Performed By: #### CMP #### [facility] [address] [address] [address] Emely AdrianGlucose [Mass/Vol]105 mg/zTBphogh79-904MiwSelect Medical [facility]ty [facility] Comment on above:Performed By: #### CMP #### [facility] [address] [address] [address] Emely AdrianPotassium [Moles/Vol]4.3 mmol/LNormal3.5-5.1The [facility] Comment on above:Performed By: #### CMP #### [facility] [address] [address] [address] Emely AdrianProtein [Mass/Vol]7.2 g/dLNormal6.4-8.2The [facility] Comment on above:Performed By: #### CMP #### [facility] [address] [address] [address] Emely AdrianSodium [Moles/Vol]136 mmol/QSrjyus448-808Knt [facility] Comment on above:Performed By: #### CMP #### [facility] [address] [address] [address] Emely AdrianUrea nitrogen [Mass/Vol]35.0 mg/dLCritically high7.0-18.0The [facility] on above:Performed By: #### CMP #### [facility] [address] [place] [address] Dr. Emely Buckley nitrogen/Creatinine [Mass ratio]19.4 mg/mgNoRiverside Methodist Hospital on above:Performed By: #### CMP #### [facility] [address] [place] [address] Dr. Emely AdrianPROTIMEon [id number] Coag (PPP) [Relative time]1.12 {INR} NormalThe [facility] on above:Performed By: #### PTT, PT #### [facility] [address] [place] [address] Dr. Emely Garcia GUIDELINESSEE BELOWAdams County Regional Medical CenterComcorewell health [facility] on above:Result Comment: DESIRED INR: 2.0 - 3.0 CONDITIONS NOT LISTED BELOW 2.5 - 3.5 FOR PROSTHETIC HEART VALVE REPLACEMENT 2.5 - 3.5 RECURRENT THROMBOSIS Performed By: #### PTT, PT #### [facility] [address] [place] [address] Dr. Emely AdrianPT Coag (PPP) [Time]12.0 sCritically high9.0-11.6The [facility] on above:Performed By: #### PTT, PT #### [facility] [address] [place] [address] Dr. Emely TylerTon 46-12-9240qGTQ Coag (Bld) [Time]32.1 nSzhryk02.3-36.2The [facility] on above:Performed By: #### PTT, PT #### [facility] [address] [place] [address] Dr. Emely Pulido, HIGH SENSITIVITYon 29-83-8336IPJUMT62.0 pg/mLNormal 4.0-76.1The [facility] on above:Result Comment: CUT-OFF POINTS HAVE BEEN ESTABLISHED BASED ON THE FOURTH UNIVERSAL DEFINITIONS OF MYOCARDIAL INFARCTION. THE UPPER REFERENCE LIMIT (URL) OF TROPONIN, DEFINED THE 99TH PERCENTILE OF cTnI DISTRIBUTION IN A REFERENCE POPULATION, HAS BEEN CONFIRMED THE DECISION THRESHOLD FOR NC DIAGNOSIS.Performed By: #### TSH, T7, LIPA, EMILY, CMP #### [facility] [address] [address] [address] Emely AdrianTYPE AND SCREENon [id number] AND SCREENNegativeNoTrinity Health System East CampusComment on above:Performed By: #### TSH, T7, LIPA, EMILY, CMP #### [facility] [address] [address] [address] Emely AdrianXR CHEST 1 Von [id number] CHEST 1 VEXAM: Portable chest REASON FOR EXAM: Shortness of breath. TECHNIQUE: A portable frontal view of the chest was obtained. COMPARISON: 10/27/2021. FINDINGS: The lungs are well-inflated and clear. The heart and mediastinum are normal. There is no mass or pathologic adenopathy. Osseous structures are normal. IMPRESSION: No acute cardiopulmonary process. Electronically authenticated by: PATRICIO ANTON Date: 2022-03-09 10:17NoTrinity Health System East CampusCA 19-9on [id number] 19-94 U/mLNormal0-35[facility] - CantonComment on above:Result Comment: [employer] Electrochemiluminescence Immunoassay (ECLIA) . Values obtained with different assay methods or kits cannot be used interchangeably. Results cannot be interpreted as absolute evidence of the presence or absence of malignant disease.Performed By: #### TSH, T7, LIPA, EMILY, CMP #### [facility] [address] [address] [address] Emely Flores [id number] ng/mLNormal0.0-4.7The [facility] Comment on above:Result Comment: Nonsmokers <3.9 Smokers <5.6 . [employer] Electrochemiluminescence Immunoassay (ECLIA) . Values obtained with different assay methods or kits cannot be used interchangeably. Results cannot be interpreted as absolute evidence of the presence or absence of malignant disease.Performed By: #### TSH, T7, LIPA, EMILY, CMP #### [facility] [address] [address] [address] Emely AdrianH PYLORI ANTIBODY IGGon 02-26-2022H. PYLORI IGG ABS1.19 Index ValueCritically high0.00-0.79The [facility] HospitalComment on above:Result Comment: Negative <0.80 Equivocal 0.80 - 0.89 Positive >0.89Performed By: #### CBC #### [facility] [address] [place] [address] Dr. Emely AdrianAMYLASEon [id number] [Catalytic activity/Vol]118 U/L Critically skpb61-165Dlu [facility] HospitalComment on above:Performed By: #### TSH, T7, LIPA, EMILY, CMP #### [facility] [address] [place] [address] Dr. Emely Frazier AUTO DIFFon [id number] #0.0 103/ulNormal0.0-0.1The [facility] HospitalComment on above:Performed By: #### TSH, T7, LIPA, EMILY, CMP #### [facility] [address] [place] [address] Dr. Emely AdrianBasophils/100 WBC (Bld)0.2 %Normal0.2-2.0[facility] Comment on above:Performed By: #### TSH, T7, LIPA, EMILY, CMP #### [facility] [address] [place] [address] Dr. Emely Espinoza #0.1 103/ulNormal0.0-0.7The [facility] HospitalComment on above: Performed By: #### TSH, T7, LIPA, EMILY, CMP #### [facility] [address] [place] [address] Dr. Emely Hullosinophils/100 WBC (Bld)2.8 %Normal0.9-7.0The [facility] Comment on above:Performed By: #### TSH, T7, LIPA, EMILY, CMP #### [facility] [address] [place] [address] Dr. Emely Hullrythrocyte distribution width (RBC) [Ratio]15.6 %Critically high 11.0-15.0The [facility] HospitalComment on above:Performed By: #### TSH, T7, LIPA, EMILY, CMP #### [facility] [address] [place] [address] Dr. Emely AdrianHematocrit (Bld) [Volume fraction]28.9 %Critically low42.0-54.0 The [facility] HospitalComment on above:Performed By: #### TSH, T7, LIPA, EMILY, CMP #### [facility] [address] [place] [address] Dr. Emely AdrianHemoglobin (Bld) [Mass/Vol]9.5 g/dLCritically low14.0-18.0The [facility] HospitalComment on above:Performed By: #### TSH, T7, LIPA, EMILY, CMP #### [facility] [address] [place] [address] Dr. Emely Casiano #0.04 10e3/ulCritically high0.00-0.03The [facility] Comment on above:Performed By: #### TSH, T7, LIPA, EMILY, CMP #### [facility] [address] [place] [address] Dr. Emely Casiano %0.9 %Critically high0.0-0.5The [facility] HospitalComment on above:Performed By: #### TSH, T7, LIPA, EMILY, CMP #### [facility] [address] [place] [address] Dr. Emely Petit #1.3 103/ulNormal1.2-3.8The [facility] HospitalComment on above:Performed By: #### TSH, T7, LIPA, EMILY, CMP #### [facility] [address] [place] [address] Dr. Emely Canashocytes/100 WBC (Bld)29.6 %Coczsa19.5-60.0The [facility] HospitalComment on above:Performed By: #### TSH, T7, LIPA, EMILY, CMP #### [facility] [address] [place] [address] Dr. Emely MichelleUAL DIFF REQNONormalThe [facility] HospitalComment on above: Performed By: #### TSH, T7, LIPA, EMILY, CMP #### [facility] [address] [place] [address] Dr. Emely Constantino (RBC) [Entitic mass]32.1 wqLjykzd29.9-34.0The [facility] HospitalComment on above:Performed By: #### TSH, T7, LIPA, EMILY, CMP #### [facility] [address] [place] [address] Dr. [facility] AdrianGENESEE [facility] (RBC) [Mass/Vol]32.9 g/dYGmcxyi71.9-35.2The [facility] HospitalComment on above:Performed By: #### TSH, T7, LIPA, EMILY, CMP #### [facility] [address] [place] [address] Dr. Emely Constantino (RBC) [Entitic vol]97.6 fLCritically high80.0-94.0The [facility]ment on above:Performed By: #### TSH, T7, LIPA, EMILY, CMP #### [facility] [address] [place] [address] Dr. Emely Zamarripa #0.8 103/ulNormal0.3-0.8The [facility] HospitalComment on above:Performed By: #### TSH, T7, LIPA, EMILY, CMP #### [facility] [address] [place] [address] Dr. Emely Ellisocytes/100 WBC (Bld)17.2 %Critically high1.7-12.0The [facility] HospitalComment on above:Performed By: #### TSH, T7, LIPA, EMILY, CMP #### [facility] [address] [place] [address] Dr. Emely Del Real #2.2 103/ulNormal1.4-6.5The [facility] HospitalComment on above:Performed By: #### TSH, T7, LIPA, EMILY, CMP #### [facility] [address] [place] [address] Dr. Emely Maddenutrophils/100 WBC (Bld)49.3 %Oudpzz45.0-75.0The [facility]ment on above:Performed By: #### TSH, T7, LIPA, EMILY, CMP #### [facility] [address] [place] [address] Dr. Emely Weller mean volume (Bld) [Entitic vol]9.2 fLCritically low 9.5-13.5The [facility] HospitalComment on above:Performed By: #### TSH, T7, LIPA, EMILY, CMP #### [facility] [address] [place] [address] Dr. Emely AdrianPLT259 103/tdObpvqz749-630Lzl [facility] on above: Performed By: #### TSH, T7, LIPA, EMILY, CMP #### [facility] [address] [place] [address] Dr. Emely AdrianRBC2.96 106/ulCritically low4.70-6.10The [facility] on above:Performed By: #### TSH, T7, LIPA, EMILY, CMP #### [facility] [address] [place] [address] Dr. Emely AdrianWBC4.4 103/ulNormal4.0-11.0The [facility] HospitalComcorewell health [facility] hospital on above: Performed By: #### TSH, T7, LIPA, EMILY, CMP #### [facility] [address] [place] [address] Dr. Emely Romero THYROXINE INDEX T7on 92-10-7072FPO0.30Qnnttm7.30-4.50The [facility] on above:Performed By: #### TSH, T7, LIPA, EMILY, CMP #### [facility] [address] [place] [address] Dr. Emely AdrianT3U34.0 %Wjnrst41.0-40.0The [facility]ment on above: Performed By: #### TSH, T7, LIPA, EMILY, CMP #### [facility] [address] [place] [address] Dr. Emely AdrianT4 [Mass/Vol]5.30 ug/dLNormal4.50-12.10The [facility] Comment on above:Performed By: #### TSH, T7, LIPA, EMILY, CMP #### [facility] [address] [address] [address] Emely Marcum PANEL (PCR)on [id number] F 40/41Not detectedNormal NOT DETECTEDThe [facility] HospitalComment on above:Performed By: #### GIPANEL #### [facility] [address] [address] [address] Emely AdrianAstrovirusNot detectedNormalNOT DETECTEDThe [facility] Comment on above:Performed By: #### GIPANEL #### [facility] [address] [address] [address] Emely Dahl. Diff toxin A/BNot detectedNormalNOT DETECTEDThe [facility] HospitalComment on above:Performed By: #### GIPANEL #### [facility] [address] [address] [address] Emely HainespylobacterNot detectedNormalNOT DETECTEDThe [facility] Comment on above:Performed By: #### GIPANEL #### [facility] [address] [address] [address] Emely GoodeyptosporidiumNot detectedNormalNOT DETECTEDThe [facility] HospitalComment on above:Performed By: #### GIPANEL #### [facility] [address] [address] [address] Emely Crockett. CayetanensisNot detectedNormalNOT DETECTEDThe [facility] HospitalComment on above:Performed By: #### GIPANEL #### [facility] [address] [address] [address] Emely [place] Coli Q776Seg ApplicableNormalNot ApplicableThe [facility] HospitalComment on above:Performed By: #### GIPANEL #### [facility] [address] [address] [address] Emely [place] histolyticaNot detectedNormalNOT DETECTEDSelect Medical [facility] Comment on above:Performed By: #### GIPANEL #### [facility] [address] [address] [address] Emely Tripathi detectedNormalNOT DETECTEDThe [facility] HospitalComment on above:Performed By: #### GIPANEL #### [facility] [address] [address] [address] Emely Horne detectedNormalNOT DETECTEDThe [facility] HospitalComment on above:Performed By: #### GIPANEL #### [facility] [address] [address] [address] Emely Beckett detectedNormalNOT DETECTEDThe [facility] HospitalComment on above:Performed By: #### GIPANEL #### [facility] [address] [address] [address] Emely Hall detectedNormalNOT DETECTEDThe [facility] HospitalComment on above:Performed By: #### GIPANEL #### [facility] [address] [address] [address] Emely Perry LambliaNot detectedNormalNOT DETECTEDThe [facility] Comment on above:Performed By: #### GIPANEL #### [facility] [address] [address] [address] Emely Horta [facility] HospitalComment on above:Performed By: #### GIPANEL #### [facility] [address] [address] [address] Emely Cummings MARY HEADERGI PANEL [facility] Comment on above:Performed By: #### GIPANEL #### [facility] [address] [address] [address] Emely Sanches ECOLIGI PANEL DIARRHEAGENIC E.COLI / SHIGELLAAdams County Regional Medical CenterComment on above:Performed By: #### GIPANEL #### [facility] [address] [address] [address] Emely Sanches INFOSEE [facility] HospitalComment on above: Result Comment: EAEC- Enteroaggregative E. Coli EPEC- Enteropathogenic E. Coli ETEC- Enterotoxigenic E. Coli lt/st STEC- Shigella-like toxin-producing E. Coli stx1/stx2 EIEC- Shigella/Enteroinvasive E. ColiPerformed By: #### HARVEYANEL #### [facility] [address] [place] [address] Dr. Emely Sanches PARASITESGI PANEL [facility] Comment on above:Performed By: #### HARVEYANEL #### [facility] [address] [address] [address] Emely Sanches VIRUSGI PANEL VIRUSESAdams County Regional Medical CenterComment on above:Performed By: #### LÓPEZL #### [facility] [address] [place] [address] Dr. Emely Perearovirus GI/GIINot detectedNormalNOT DETECTEDThe [facility] HospitalComment on above:Performed By: #### LÓPEZL #### [facility] [address] [place] [address] Dr. Emely Polanco. ShigelloidesNot detectedNormalNOT DETECTEDThe [facility] HospitalComment on above:Performed By: #### LÓPEZL #### [facility] [address] [place] [address] Dr. Emely De Andaavirus ANot detectedNormalNOT DETECTEDSelect [facility] Comment on above:Performed By: #### LÓPEZL #### [facility] [address] [place] [address] Dr. Emely AdrianSalmonellaNot detectedNormalNOT DETECTEDSelect [facility] Comment on above:Performed By: #### LÓPEZL #### [facility] [address] [place] [address] Dr. Emely AdrianSapovirusNot detectedNormalNOT DETECTEDSelect [facility] Comment on above:Performed By: #### LÓPEZL #### [facility] [address] [place] [address] Dr. Emely AdrianSTECNot detectedNormalNOT DETECTEDThe [facility] HospitalComment on above:Performed By: #### LÓPEZL #### [facility] [address] [address] [address] Emely MejiaioNot detectedNormalNOT DETECTEDThe [facility] HospitalComment on above:Performed By: #### GIPANEL #### [facility] [address] [address] [address] Emely Ford CholeraNot detectedNormalNOT DETECTEDThe [facility] Comment on above:Performed By: #### GIPANEL #### [facility] [address] [address] [address] Emely Bobo. EnterocoliticaNot detectedNormalNOT DETECTEDThe [facility] HospitalComment on above:Performed By: #### GIPANEL #### [facility] [address] [place] [address] Dr. Emely AdrianGLYCOHEMOGLOBIN A1Con [id number] RECOMMENDATIONSEE BELOWNormal The [facility] HospitalComment on above:Result Comment: ADA RECOMMENDED LIMIT 4.0 - 6.0 ADA THERAPEUTIC TARGET < 7.0 ACTION SUGGESTED > 7.0Performed By: #### TSH, T7, LIPA, EMILY, CMP #### [facility] [address] [place] [address] Dr. Emely AdrianGlucose [Mass/Vol]120 mg/dLNormalThe [facility] HospitalComment on above:Performed By: #### TSH, T7, LIPA, EMILY, CMP #### [facility] [address] [address] [address] Emely AdrianHbA1c (Bld) [Mass fraction]5.8 %Normal4.5-6.2The [facility] HospitalComment on above:Performed By: #### TSH, T7, LIPA, EMILY, CMP #### [facility] [address] [place] [address] Dr. Emely Jeffrey [id number] [Mass/Vol]55.0 ug/dLCritically low 65.0-175.0The [facility] HospitalComment on above:Performed By: #### CBC #### [facility] [address] [place] [address] Dr. Emely CrowASEjarrett [id number] [Catalytic activity/Vol]671.0 U/L Critically high73.0-393.0The [facility] HospitalComment on above:Performed By: #### TSH, T7, LIPA, EMILY, CMP #### [facility] [address] [address] [address] Emely Robbins BLD IMMUNO SCREENon 30-29-1921KHAUQG BLOODPositiveAbnormal NEGATIVEThe [facility] HospitalComment on above:Performed By: #### TSH, T7, LIPA, EMILY, CMP #### [facility] [address] [place] [address] Dr. Emely AdrianPROF 14(COMP METB)on 03-92-4843Hnehtfz [Mass/Vol]3.0 g/dL Critically low3.4-5.0The [facility] HospitalComment on above:Performed By: #### TSH, T7, LIPA, EMILY, CMP #### [facility] [address] [place] [address] Dr. Emely AdrianAlbumin/Globulin [Mass ratio]0.8 {ratio}NormalThe [facility] HospitalComment on above:Performed By: #### TSH, T7, LIPA, EMILY, CMP #### [facility] [address] [place] [address] Dr. Emely Ballesteros [Catalytic activity/Vol]58 U/JTwqxes04-897Zmm [facility] HospitalComment on above:Performed By: #### TSH, T7, LIPA, EMILY, CMP #### [facility] [address] [place] [address] Dr. Emely Carmichael [Catalytic activity/Vol]25 U/VHuthoh54-99Ena [facility] Hospitalment on above:Performed By: #### TSH, T7, LIPA, EMILY, CMP #### [facility] [address] [place] [address] Dr. Emely Patel gap [Moles/Vol]12.1 mmol/LNormalThe [facility] Comment on above:Performed By: #### TSH, T7, LIPA, EMILY, CMP #### [facility] [address] [place] [address] Dr. Emely AdrianAST [Catalytic activity/Vol]20 U/PMvcpoe14-38Pbe [facility] HospitalComment on above:Performed By: #### TSH, T7, LIPA, EMILY, CMP #### [facility] [address] [place] [address] Dr. Emely AdrianBilirubin [Mass/Vol]0.2 mg/dLNormal0.2-1.0The [facility] Comment on above:Performed By: #### TSH, T7, LIPA, EMILY, CMP #### [facility] [address] [place] [address] Dr. Emely AdrianCalcium [Mass/Vol]8.3 mg/dLCritically low8.5-10.1The [facility] HospitalComment on above:Performed By: #### TSH, T7, LIPA, EMILY, CMP #### [facility] [address] [place] [address] Dr. Emely AdrianChloride [Moles/Vol]108 mmol/LCritically ckrx58-370Nkg [facility] HospitalComment on above:Performed By: #### TSH, T7, LIPA, EMILY, CMP #### [facility] [address] [place] [address] Dr. Emely AdrianCO2 [Moles/Vol]24.5 mmol/ZSagwfn52.0-32.0[facility] Comment on above:Performed By: #### TSH, T7, LIPA, EMILY, CMP #### [facility] [address] [place] [address] Dr. Emely AdrianCreatinine [Mass/Vol]0.97 mg/dLNormal0.70-1.30The [facility] HospitalComment on above:Performed By: #### TSH, T7, LIPA, EMILY, CMP #### [facility] [address] [place] [address] Dr. Han ChangEGFR-AF SWEDISH>60Normal>=60The [facility] HospitalComment on above:Performed By: #### TSH, T7, LIPA, EMILY, CMP #### [facility] [address] [place] [address] Dr. Emely HullGFR-NON AF SWEDISH>60Normal>=60The [facility] HospitalComment on above:Performed By: #### TSH, T7, LIPA, EMILY, CMP #### [facility] [address] [place] [address] Dr. Emely AdrianGlobulin (S) [Mass/Vol]3.8 g/dLNormalThe [facility] HospitalComment on above:Performed By: #### TSH, T7, LIPA, EMILY, CMP #### [facility] [address] [place] [address] Dr. Emely AdrianGlucose [Mass/Vol]97 mg/tOReujrx67-051OufSelect Medical Specialty Hospital [facility] Comment on above:Performed By: #### TSH, T7, LIPA, EMILY, CMP #### [facility] [address] [place] [address] Dr. Emely AdrianPotassium [Moles/Vol]4.6 mmol/LNormal3.5-5.1[facility] Comment on above:Performed By: #### TSH, T7, LIPA, EMILY, CMP #### [facility] [address] [place] [address] Dr. Emely AdrianProtein [Mass/Vol]6.8 g/dLNormal6.4-8.2The [facility] Comment on above:Performed By: #### TSH, T7, LIPA, EMILY, CMP #### [facility] [address] [place] [address] Dr. Emely AdrianSodium [Moles/Vol]140 mmol/XWyitrw665-573FwnSelect Medical Specialty Hospital [facility] Comment on above:Performed By: #### TSH, T7, LIPA, EMILY, CMP #### [facility] [address] [place] [address] Dr. Emely AdrianUrea nitrogen [Mass/Vol]20.0 mg/dLCritically high7.0-18.0The [facility] HospitalComment on above:Performed By: #### TSH, T7, LIPA, EMILY, CMP #### [facility] [address] [place] [address] Dr. Emely AdrianUrea nitrogen/Creatinine [Mass ratio]20.6 mg/mgNoTrinity Health System East CampusComcorewell health pennock hospital on above:Performed By: #### TSH, T7, EMILY WIGGINS, CMP #### [facility] [address] [place] [address] Dr. Emely JacksonHocorine 58-38-3271BHN1.247 uIU/mLNormal0.358-3.740The [facility] Hospitalment on above:Performed By: #### TSH, T7, EMILY WIGGINS, CMP #### [facility] [address] [place] [address] Dr. Emely AdrianVITAMIN D 25 OHon 57-44-0084YNA D 25-OH23.9 ng/mLNormalThe [facility] on above:Performed By: #### CBC #### [facility] [address] [place] [address] Dr. Emely Espinoza RANGESSEE BELOWAdams County Regional Medical CenterComment on above: Result Comment: <20 ng/mL Vit D deficient 20 - <30 ng/mL Vit D insufficient 30 - 100 ng/mL Vit D sufficient >100 ng/mL Potential ToxicityPerformed By: #### CBC #### [facility] [address] [place] [address] Dr. Emely AdrianCREATININEon 74-03-1786Exlwmaidmv [Mass/Vol]1.21 mg/dLNormal 0.70-1.30The [facility] on above:Performed By: #### TSH, T7, LIPEMILY Hill, CMP #### [facility] [address] [place] [address] Dr. Emely HullGFR-AF SWEDISH>60Normal>=60The [facility] on above:Performed By: #### TSH, T7, LIPA EMILY, CMP #### [facility] [address] [place] [address] Dr. Emely HullGFR-NON AF SWEDISH=60Normal>=60The [facility] Hospitalment on above:Performed By: #### TSH, T7, LIPA, EMILY, CMP #### [facility] [address] [address] [address] Emely AdrianCT CHEST WO W CONon [id number] CHEST WO W CONEXAMINATION: CT CHEST WO [...] Electronically authenticated by: CARLOS RICE Date: 2021-12-30 08:[address] [place] [address] STRESS/REST MULTIon 13-15-6688MH STRESS/REST MULTIPatient: PABLO BECKMAN Exam Date: 11/09/2021 : 1955 Gender:M Ordering : DR GUILLERMO CHANCE . Admission #: [id number] Family : Order #: [id number] CLICK HERE TO VIEW EXAM RADIOLOGY REPORT [...] by: Carlos Rice M.D. on 11/09/2021 at 14:17[facility] CenterCARDIAC PHILIP 3-6on [id number] [Catalytic activity/Vol]114 U/LNormal 39-308[facility]iffin Hospitalment on above:Performed By: #### TSH, T7, LIPA, EMILY, CMP #### [facility] [address], [place] [address] Dr. Emely Ledbetter.MB [Mass/Vol]1.75 ng/mLNormal<=3.60The [facility] Comment on above:Performed By: #### TSH, T7, LIPA, EMILY, CMP #### [facility] [address], [place] [address] Dr. Emely Conway10.8 pg/mLNormal4.0-76.1The [facility] HospitalComment on above:Result Comment: CUT-OFF POINTS HAVE BEEN ESTABLISHED BASED ON THE FOURTH UNIVERSAL DEFINITIONS OF MYOCARDIAL INFARCTION. THE UPPER REFERENCE LIMIT (URL) OF TROPONIN, DEFINED THE 99TH PERCENTILE OF cTnI DISTRIBUTION IN A REFERENCE POPULATION, HAS BEEN CONFIRMED THE DECISION THRESHOLD FOR NC DIAGNOSIS.Performed By: #### TSH, T7, LIPA, EMILY, CMP #### [facility] [address] [place] [address] Dr. Emely Ledbetter [Catalytic activity/Vol]122 U/SLlrhjf11-420DekSelect Medical Specialty Hospital - CantonComment on above:Performed By: #### TSH, T7, LIPA, EMILY, CMP #### [facility] [address] [place] [address] Dr. Emely Ledbetter.MB [Mass/Vol]2.59 ng/mLNormal<=3.60[facility] Comment on above:Performed By: #### TSH, T7, LIPA, EMILY, CMP #### [facility] [address] [place] [address] Dr. Emely Conway10.5 pg/mLNormal4.0-76.1The [facility] HospitalComcorewell health pennock hospital on above:Result Comment: CUT-OFF POINTS HAVE BEEN ESTABLISHED BASED ON THE FOURTH UNIVERSAL DEFINITIONS OF MYOCARDIAL INFARCTION. THE UPPER REFERENCE LIMIT (URL) OF TROPONIN, DEFINED THE 99TH PERCENTILE OF cTnI DISTRIBUTION IN A REFERENCE POPULATION, HAS BEEN CONFIRMED THE DECISION THRESHOLD FOR NC DIAGNOSIS.Performed By: #### TSH, T7, LIPA, EMILY, CMP #### [facility] [address] [place] [address] Dr. Emely Ledbetter [Catalytic activity/Vol]130 U/WYpqhyz43-351Zwe [facility] HospitalComment on above:Performed By: #### CBC #### [facility] [address] [place] [address] Dr. Emely Ledbetter.MB [Mass/Vol]2.10 ng/mLNormal<=3.60[facility] Comment on above:Performed By: #### CBC #### [facility] [address] [place] [address] Dr. Emely EchevarriaOP10.2 pg/mLNormal4.0-76.1The [facility] on above:Result Comment: CUT-OFF POINTS HAVE BEEN ESTABLISHED BASED ON THE FOURTH UNIVERSAL DEFINITIONS OF MYOCARDIAL INFARCTION. THE UPPER REFERENCE LIMIT (URL) OF TROPONIN, DEFINED THE 99TH PERCENTILE OF cTnI DISTRIBUTION IN A REFERENCE POPULATION, HAS BEEN CONFIRMED THE DECISION THRESHOLD FOR NC DIAGNOSIS.Performed By: #### CBC #### [facility] [address] [address] [address] Emely PALACIOS ADMITon [id number] [Catalytic activity/Vol]164 U/L Avpnko94-237Ven [facility] HospitalComment on above:Performed By: #### CBC #### [facility] [address] [address] [address] Emely Ledbetter.MB [Mass/Vol]3.38 ng/mLNormal<=3.60The [facility] Comment on above:Performed By: #### CBC #### [facility] [address] [place] [address] Dr. Emely AdrianHSTROP9.5 pg/mLNormal4.0-76.1The [facility] HospitalComment on above:Result Comment: CUT-OFF POINTS HAVE BEEN ESTABLISHED BASED ON THE FOURTH UNIVERSAL DEFINITIONS OF MYOCARDIAL INFARCTION. THE UPPER REFERENCE LIMIT (URL) OF TROPONIN, DEFINED THE 99TH PERCENTILE OF cTnI DISTRIBUTION IN A REFERENCE POPULATION, HAS BEEN CONFIRMED THE DECISION THRESHOLD FOR NC DIAGNOSIS.Performed By: #### CBC #### [facility] [address] [address] [address] Emely DawkinsO124 ng/mLCritically pqhg07-21Dmr [facility] HospitalComment on above:Performed By: #### CBC #### [facility] [address] [place] [address] Dr. Emely Frazier AUTO DIFFon 80-40-8044UMOX #0.0 103/ulNormal0.0-0.1The [facility] HospitalComment on above:Performed By: #### CBC #### [facility] [address] [address] [address] Emely AdrianBasophils/100 WBC (Bld)0.1 %Critically low0.2-2.0The [facility] HospitalComment on above:Performed By: #### CBC #### [facility] [address] [address] [address] Han ChangEO #0.3 103/ulNormal0.0-0.7The [facility] HospitalComment on above: Performed By: #### CBC #### [facility] [address] [address] [address] Emely Hullosinophils/100 WBC (Bld)3.2 %Normal0.9-7.0The [facility] Comment on above:Performed By: #### CBC #### [facility] [address] [place] [address] Dr. Emely Hullrythrocyte distribution width (RBC) [Ratio]13.6 %Wlnlmi10.0-15.0 [facility] - CantonComment on above:Performed By: #### CBC #### [facility] [address] [place] [address] Dr. Emely AdrianHematocrit (Bld) [Volume fraction]32.2 %Critically low42.0-54.0 [facility] - CantonComment on above:Performed By: #### CBC #### [facility] [address] [place] [address] Dr. Emely AdrianHemoglobin (Bld) [Mass/Vol]10.5 g/dLCritically low14.0-18.0[facility] - CantonComment on above:Performed By: #### CBC #### [facility] [address] [place] [address] Dr. Emely Casiano #0.05 10e3/ulCritically high0.00-0.03[facility] Comment on above:Performed By: #### CBC #### [facility] [address] [place] [address] Dr. Emely Casiano %0.6 %Critically high0.0-0.5The [facility] HospitalComment on above:Performed By: #### CBC #### [facility] [address] [place] [address] Dr. Emely Petit #1.7 103/ulNormal1.2-3.8The [facility] HospitalComment on above:Performed By: #### CBC #### [facility] [address] [place] [address] Dr. Emely Canashocytes/100 WBC (Bld)19.7 %Critically low20.5-60.0The [facility] HospitalComment on above:Performed By: #### CBC #### [facility] [address] [place] [address] Dr. Emely Davis DIFF REQNONormalThe [facility] HospitalComment on above: Performed By: #### CBC #### [facility] [address] [place] [address] Dr. Emely Constantino (RBC) [Entitic mass]31.7 xkRmhbwv26.9-34.0The [facility] HospitalComment on above:Performed By: #### CBC #### [facility] [address] [place] [address] Dr. Emely Constantino (RBC) [Mass/Vol]32.6 g/pCXtrghy63.9-35.2The [facility] HospitalComment on above:Performed By: #### CBC #### [facility] [address] [place] [address] Dr. Emely Smith (RBC) [Entitic vol]97.3 fLCritically high80.0-94.0The [facility] HospitalComment on above:Performed By: #### CBC #### [facility] [address] [place] [address] Dr. Emely Zamarripa #1.0 103/ulCritically high0.3-0.8The [facility] Comment on above:Performed By: #### CBC #### [facility] [address] [place] [address] Dr. Emely Ellisocytes/100 WBC (Bld)12.4 %Critically high1.7-12.0The [facility] HospitalComment on above:Performed By: #### CBC #### [facility] [address] [place] [address] Dr. Emely Del Real #5.4 103/ulNormal1.4-6.5The [facility] HospitalComment on above:Performed By: #### CBC #### [facility] [address] [place] [address] Dr. Yilan ChangNeutrophils/100 WBC (Bld)64.0 %Rkoqhs89.0-75.0The [facility] HospitalComment on above:Performed By: #### CBC #### [facility] [address] [place] [address] Dr. Emely Bonelet mean volume (Bld) [Entitic vol]9.2 fLCritically low 9.5-13.5The [facility] HospitalComment on above:Performed By: #### CBC #### [facility] [address] [place] [address] Dr. Emely AdrianPLT417 103/hhGfgeud361-394Iyp [facility] HospitalComment on above: Performed By: #### CBC #### [facility] [address] [place] [address] Dr. Emely AdrianRBC3.31 106/ulCritically low4.70-6.10The [facility] HospitalComment on above:Performed By: #### CBC #### [facility] [address] [place] [address] Dr. Emely AdrianWBC8.4 103/ulNormal4.0-11.0The [facility] HospitalComment on above: Performed By: #### CBC #### [facility] [address] [place] [address] Dr. Emely Martin CHEST WO W CONon [id number] CHEST WO W CONEXAMINATION: CTA CHEST WO [...] Electronically authenticated by: CARLOS RICE Date: 2021-10-27 06:37NoTrinity Health System East CampusCovid-19 PCR (CVDTBH)on 77-04-1256XIBT-CoV-2 (COVID-19) RNA ISIDRO+probe Ql (Unsp spec)Not detectedNormalNOT DETECTEDSelect [facility] Comment on above:Result Comment: When diagnostic testing [...] for this test is supported by the Road [employer] of Health and Human Service's declaration that [...] #### TSH, T7, LIPA, EMILY, CMP #### [facility] [address] [place] [address] Dr. Emely Guerrero 11-70-4949M-DIMER2.19 mg/L FEUCritically high<=0.59[facility] - CantonComment on above:Performed By: #### TSH, T7, LIPA, EMILY, CMP #### [facility] [address] [address] [address] Emely Lindo COMMENTSSEE [facility] Bucyrus HospitalComment on above:Result Comment: Increases in D-Dimer [...] #### TSH, T7, LIPA, EMILY, CMP #### [facility] [address], [place] [address] Dr. Emely Bangura 50-76-2681SPS<0.2Critically low0.9-2.0The [facility] HospitalComment on above:Performed By: #### TSH, T7, LIPA, EMILY, CMP #### [facility] [address] [address] [address] Emely HullCHOCARDISherri M/2D COMPLETEon 34-33-6396NYWLGJJIAS M/2D COMPLETE Patient: PABLO BECKMAN Exam Date: 10/27/2021 : 1955 Gender:M Ordering : DR GUILLERMO CHANCE . Admission #: [id number] Family : Order #: [id number] CLICK HERE TO VIEW EXAM ECHOCARDIOGRAM REPORT [...] by: Magdalena Stark M.D. on 10/27/2021 at 17:01[facility] CenterLACTATE/LACTIC ACIDon 81-69-4053Apjwklz [Moles/Vol]0.5 mmol/LNormal 0.4-1.9[facility] - CantonComment on above:Performed By: #### TSH, T7, LIPA, EMILY, CMP #### [facility] [address] [address] [address] Emely AdrianLactate [Moles/Vol]0.5 mmol/LNormal0.4-1.9[facility] Comment on above:Performed By: #### CBC #### [facility] [address] [address] [address] Emely AdrianPROF CHEM 8 (BAS METB)on 25-66-8007Gxelb gap [Moles/Vol]15.3 mmol/LNormalSelect Medical Specialty Hospital - CantonComment on above:Performed By: #### CBC #### [facility] [address] [address] [address] Emely AdrianCalcium [Mass/Vol]9.1 mg/dLNormal8.5-10.1[facility] Comment on above:Performed By: #### CBC #### [facility] [address] [place] [address] Dr. Emely AdrianChloride [Moles/Vol]105 mmol/EFmusxq21-986YanSelect Medical Specialty Hospital - [facility]on Comment on above:Performed By: #### CBC #### [facility] [address] [address] [address] Emely AdrianCO2 [Moles/Vol]26.6 mmol/QChwcdy00.0-32.0The [facility] Comment on above:Performed By: #### CBC #### [facility] [address] [address] [address] Emely AdrianCreatinine [Mass/Vol]1.29 mg/dLNormal0.70-1.30The [facility] HospitalComment on above:Performed By: #### CBC #### [facility] [address] [address] [address] Emely HullGFR-AF SWEDISH>60Normal>=60The [facility] HospitalComment on above:Performed By: #### CBC #### [facility] [address] [address] [address] Emely HullGFR-NON AF PNSQKGVV28 mL/min/1.50g5Oictiumsuz low>=60The [facility] HospitalComment on above:Performed By: #### CBC #### [facility] [address] [address] [address] Emely AdrianGlucose [Mass/Vol]100 mg/vPScdafk52-082PmdSelect Medical Specialty Hospital [facility] Comment on above:Performed By: #### CBC #### [facility] [address] [address] [address] Emely AdrianPotassium [Moles/Vol]3.9 mmol/LNormal3.5-5.1[facility] Comment on above:Performed By: #### CBC #### [facility] [address] [address] [address] Emely AdrianSodium [Moles/Vol]143 mmol/SBnqxee285-750DjnSelect Medical Specialty Hospital [facility] Comment on above:Performed By: #### CBC #### [facility] [address] [address] [address] Emely AdrianUrea nitrogen [Mass/Vol]28.0 mg/dLCritically high7.0-18.0The [facility] HospitalComment on above:Performed By: #### CBC #### [facility] [address], [place] [address] Dr. Emely AdrianUrea nitrogen/Creatinine [Mass ratio]21.7 mg/mgAdams County Regional Medical CenterComment on above:Performed By: #### CBC #### [facility] [address], [place] [address] Dr. Emely AdrianXR CHEST 1 Von 05-35-3307GP CHEST 1 VEXAM: XR CHEST 1 V [...] Electronically authenticated by: KARLY SAID Date: 2021-10-27 04:41Ad[facility] County Regional Medical CenterCardiovascular Lab Reporton 69-80-3343Avjdykhoirzqrd Lab Report [facility] Patient Name: Rk [facility] MR #: [id number] Physician: Mamta Stephenson, Department of [facility] Medicine Service Date: 04/07/2021 Division of Birthdate: 1955 Cardiology Room #: [facility] Services [address] [place] [address] Cardiovascular Laboratory Report DATE OF PROCEDURE; 04/07/2021 [...] Medina MD Date Trans: 04/09/2021 11:17 A/ MATTI_JN:[id number] County Community Hospital Vital Signs Date TimeVital SignValuePerforming VklapzqwzZkrneoat29-62-7705 12:43-0500Body wmfssmpmkhu53.88 [degF]WALLACE WEI [facility]03-03-2025 12:43-0500Diastolic blood lyggvmmo51 mm[Hg]WALLACE WEI [facility]03-03-2025 12:43-0500Heart rate66 /minJENNIFER SANJUANA [facility]03-03-2025 12:43-0500Respiratory rate16 /minJENNIFER SANJUANA [facility]03-03-2025 12:43-0500Systolic blood qqwyjrsz289 mm[Hg]WALLACE SANJUANA [facility] Encounters Encounter DateEncounter TypeCare ProviderFacilityStart: 01-22-2025 End: 54-56-8456ltkvshchwtIIWFRMXWRVKSum[facility] Health [facility] Start: 07-18-2024 End: 34-29-2643aycenoaychNTQLHGEWestern Reserve Hospitaltart: 06-20-2024 End: 38-97-3722Jejfnwkug encounterG Isidoro Williamson MD Work Phone: Radiation OncologyComment on above:Future Appointment Start: 15-94-4947uuboeappysWBKXKDPThe [facility] Start: 06-19-2024 End: 61-12-5988noyqcghddmEIEAGBPPremier Health Atrium [facility] Center Start: 06-18-2024 End: 25-27-6163eithzeihtcM Phillip Engeler MD Work Phone: Radiation OncologyComment on above:Personal history of prostate cancer (Primary Dx)Start: 06-18-2024 End: 06-39-2885Hnwefabiwsqs consultation with patientG Isidoro Williamson MD Work Phone: Radiation OncologyStart: 06-10-2024 End: 89-84-2859hxfrufauxeBC-Madelaine WEIFacility:FTMCStart: 06-10-2024 End: 01-40-6673Tcs Drop offJELIZZIEIFER E SANJUANA [facility] Start: 06-10-2024 End: 20-50-0017gexizskjfxKU-C WALLACE E ASHLEYJEISONFacility:EU BellevueStart: 06-10-2024 End: 49-02-3149Znvings encounter procedureJENNIFER E SANJUANA [facility] Renata start: 06-03-2024 End: 56-26-9758xaytgtswfiXVZVQHB [facility] Start: 47-27-4410Rtilaryve encounterG Isidoro Williamson MD Work Phone: Radiation OncologyComment on above:Results; AppointmentStart: 88-38-0908Hkyxgzbxc encounterG Isidoro Williamson MD Work Phone: Radiation OncologyComment on above:Future Appointment Start: 06-23-2022 End: 50-14-5165ehdoztfzdzD Phillip Engeler MD Work Phone: Radiation OncologyComment on above:Malignant neoplasm of prostate (HCC) (Primary Dx)Start: 06-23-2022 End: 65-44-0513Dhccselfbbdt consultation with patientG Isidoro Williamson MD Work Phone: SANDUSKYStart: 73-83-7314Cywxlrvis encounterG Isidoro Williamson MD Work Phone: Radiation OncologyComment on above:Patient Question Start: 06-02-2022 End: 76-04-5284jzybemkjqoFADaquan CLARKacility:G8Nfbqe: 03-29-2022 End: 10-36-5161Aidyxrh encounter procedureMichael R NILL General Surgery Nill/Said [place] Start: 81-34-5149Phhxjgiie for preprocedural laboratory examinationDR PATRICIO OBRIEN .[facility]: 03-18-2022 End: 96-37-6339hpnxvelccmOU PATRICIO OBRIEN .Facility:W0Ekeiz: 03-14-2022 End: 60-37-7005fqszpjnqygVI PATRICIO MARTINEZL .Facility:X8Kjwsh: 03-14-2022 End: 67-82-9939Nfbvjjoxj for preprocedural laboratory examinationDR PATRICIO OBRIEN .Facility:Q7Dgzmg: 03-09-2022 End: 66-55-5190fxuofketxzZS ISIDRO Alcantara ELIELECKFacility:I2Qoajx: 02-25-2022 End: 02-91-1733syuwfthvzgGK GUILLERMO HOY .Facility:Z2Uoaio: 12-30-2021 End: 94-30-7727idhtbewmrkZG GUILLERMO HOY .Facility:U1Dmbsy: 11-09-2021 End: 13-51-6479lhwzolrdigNX GUILLERMO HOY .Facility:D2Gxnnh: 10-27-2021 End: 85-61-3674vvrxeumpccLR GUILLERMO HOY .Facility:H0Srxbg: 04-07-2021 End: 38-20-8310rjgzzlzdklOEIURYH TUCKERFacility:[facility] Procedures DateProcedureProcedure DetailPerforming ClinicianStart: 28-05-3660PND screening Ccf ProviderStart: 06-02-2022 End: 49-10-1094XEL screeningCcf ProviderComment on above:Performed By: #### TSH, T7, LIPA, EMILY, CMP #### [facility] [address] [place] [address] Dr. Emely AdrianStart: 94-24-8920IntmgkrllvsNcskkpu NILL Start: 78-39-8636AyohmbgjkavmxdnwjjjqkgaeqeWxcpfij NILL Start: 31-36-0082FojelvxxxubWujpwyu NILL Start: 28-34-7383KollmhtigmyTxcvlpj NILL Amputation of finger, except thumbMichael NILL Arthroscopy of shoulderMichael NILL Herniated structure (morphologic abnormality)WALLACE WEI Implantation of radioactive seed into prostateMichael NILL Open reduction of fracture with internal fixation Patricio NILL Comment on above:right legUmbilical herniorrhaphy using surgical suturesMichael NILL Plan of Treatment DateCare ActivityDetailAuthorStart: 85-20-1957HWP Vaccine (1 - 1-dose 75+ series)RSV Vaccine (1 - 1-dose 75+ series)[facility]: 06-12-2029 Prostate specific antigen measurementProstate Cancer Screening Discussion [facility] Hospitaltart: 93-17-2719Umlwbmcp specific antigen measurementProstate Cancer Screening DiscussionMercy Health St. [facility] Hospitaltart: 82-57-8767GHSWNCFD CANCER SCREENING DISCUSSIONPROSTATE CANCER SCREENING DISCUSSIONMercy Health St. [facility] Hospitaltart: 39-40-4061Ambuyqmh specific antigen measurementProstate Cancer Screening DiscussionMercy Health St. [facility] Hospitaltart: 06-20-2025 End: 90-59-1742Dxlzjkec specific Ag [Mass/volume] in Serum or PlasmaPROSTATE- SPECIFIC ANTIGEN DIAGNOSTIC Lab Routine Personal history of prostate cancer Expected: 06/20/2025 (Approximate), Expires: 09/19/2025[facility] Work Phone: Comment on above:Expected: 06/20/2025 (Approximate), Expires: 09/19/2025Start: 06-18-2025 End: 03-06-4969Onyccn-up zpfcxeuhj69/11/2026 4:30 PM EDT [facility] On[facility] [address] [place] [address] [place] [address] Quinton Williamson MD [address] [place] [address] [place] [address] 1 year follow [facility] OncologyComment on above:1 [facility]2024 End: 25-38-2865Gtgbywjc specific Ag [Mass/volume] in Serum or Plasma PSA/PROSTSPECAG DIAG Lab Routine Malignant neoplasm of prostate (HCC) Expected: 06/12/2024, Expires: 5CFort [facility] Work Phone: Comment on above:Expected: 06/12/2024, Expires: 09/11/2024Start: 68-24-7417Mpqypgw Directive DiscussionAdvance Directive DiscussionMercy Health St. [facility] Hospitaltart: 52-15-6354Zvrtw-19 Vaccine () Covid-19 Vaccine ()[facility]tart: 51-45-7240Nhtdumkty vaccinationInfluenza Vaccine (#1)[facility]: 05-23-2023 End: 49-68-1327Dfqxgblz specific Ag [Mass/volume] in Serum or Plasma PSA/PROSTSPECAG DIAG Lab Routine Malignant neoplasm of prostate (HCC) Expected: 05/23/2023, Expires: 08/22/2023[facility] Work Phone: Comment on above:Expected: 05/23/2023, Expires: 08/22/2023Start: 92-43-6404Qmgvlba Directive DiscussionAdvance Directive DiscussionMercy Health St. [facility] Hospitaltart: 44-38-7372Tltjlsjqzw AssessmentDepression AssessmentMercy Health St. [facility] Hospitaltart: 29-71-6611Edwyymlzzpud Vaccine: 50+ (2 of 2 - PPSV23)Pneumococcal Vaccine: 50+ (2 of 2 - PPSV23)[facility]: 07-34-3128Tzkzyahkkrmo Vaccine: 65+ (2 of 2 - PPSV23 or PCV20)Pneumococcal Vaccine: 65+ (2 of 2 - PPSV23 or PCV20)[facility]: 86-69-5170Jbubo-19 Vaccine ( season)Covid-19 Vaccine ()[facility]: 07-86-1885Hoxpoadki vaccinationInfluenza Vaccine (#1)[facility]: 54-18-5851OXNNSOI DIRECTIVE DISCUSSIONADVANCE DIRECTIVE DISCUSSION [facility]: 30-28-7710BFNHQBEDBI ASSESSMENTDEPRESSION ASSESSMENT [facility]: 67-38-9037Vzkmugrkf vaccinationINFLUENZA (#1)[facility]: 42-82-9319SGDXYBYLRKYF: 65+ (1 - PCV)PNEUMOCOCCAL: 65+ (1 - PCV) [facility]: 48-09-5670SDYOV-19 VACCINE (3 - Booster for Pfizer series)COVID-19 VACCINE (3 - Booster for Pfizer series)[facility]: 32-97-7833POS Vaccine (1 - 1-dose 60+ series)RSV Vaccine (1 - 1-dose 60+ series) [facility]: 36-16-5546IQURACGP VACCINE (1 of 2)SHINGRIX VACCINE (1 of 2)[facility]: 67-09-1815LYSHNFGXL (FIT-DNA)COLOGUARD (FIT-DNA) [facility]: 11-57-6139AzmamjpppseJHTBTOUJZAICnwzxujgc ClinicStart: 02-98-5111VJPYNRLKBJ CANCER SCREENINGCOLORECTAL CANCER SCREENINGC[facility] Clinic [facility] Start: 09-89-9685VO COLONOGRAPHYCT COLONOGRAPHYMercy Health St. [facility] Hospitaltart: [address] DIABETES [address]CREENDI[address]CRE[address]Mer[address] [facility] Hospitaltart: 05-79-1890Qajdsuuj ScreeningDiabetes ScreeningMercy Health St. [facility] Hospitaltart: 42-73-9083VPOUU OCCULT BLOOD FECAL OCCULT BLOODMercy Health St. [facility] Hospitaltart: 44-81-7421Datkfemyv for malignant neoplasm of colonMercy Health St. [facility] Hospitaltart: 68-09-3085ZABQLSEGKQRWOLUETAKVLULGBC [facility]tart: 64-83-1461Samgv panelLipid ScreeningCleveland Clinic Euclid Hospital Start: 36-01-2680PYHJT SCREENLIPID SCREENMercy Health St. [facility] Hospitaltart: 58-38-5075Acamf microalbumin profileMercy Health St. [facility] Hospitaltart: 46-37-6182Ivxemib ScreeningAnxiety ScreeningMercy Health St. [facility] Hospitaltart: 73-08-9916Tnxjfqgqea ScreeningDepression ScreeningMercy Health St. [facility] Hospitaltart: 58-67-3097XGCJWSEXQ C SCREENINGHEPATITIS C SCREENINGMercy Health St. [facility] Hospitaltart: 10-44-7386Sydhyhfhw C screeningHepatitis C ScreeningMercy Health St. [facility] Hospitaltart: 26-75-8057UCS SCREENINGHIV SCREENINGMercy Health St. [facility] Hospitaltart: 27-41-5613EJSNVDNAE AORTIC ANEURYSM SCREENINGABDOMINAL AORTIC ANEURYSM SCREENINGMercy Health St. [facility] Hospitaltart: 56-23-6448Snwfkyibm aortic aneurysm screeningAbdominal Aortic Aneurysm ScreeningMercy Health [facility] Immunizations Immunization DateImmunizationNotesCare ProviderFacilityNEGATED: Highlighted row has not occurred!73-68-4615ohyswgzbb virus vaccine, unspecified formulation Patircio OBRIEN General Surgery [place] Payers DatePayer CategoryPayerPolicy [id number] 2023Medicare DEVOTED MEDICARE DEVOTED HEALTH [place] H[place] [id number] 2023-Present [phone] [address] [place] [address] [id number] [id number] Health Insurance [id number] [facility] [id number] 2006-Present [phone] [address] [id number] Qfazzjx8[id number] 2.840.1.798127.3.579.2.13401-77-6909 [id number] 2.840.1.913951.3.57[id number] 2.16.840.1.502394.3.57[id number] 2.840.1.812058.3.57[id number] 2.16.840.1.416601.3.57[id number] 2.16.840.1.695391.3.579.[id number] 2.16.840.1.955791.3.579.2.[id number] 2.16.840.1.718815.3.579.[id number] 2.16.840.1.206918.3.579.[id number] 2.16.840.1.178716.3.579.[id number] 2..840.1.407182.3.579.2.727 Social History DateTypeDetailFacilityStart: 06-24-2020 End: 08-37-7589Cfmresw smoking statusEx-smoker (finding)General Surgery [place] Tobacco smoking statusNeverGeneral Surgery BellevueStart: 06-24-2020 End: 64-73-8383Biu Assigned At BirthMalCleveland Clinic Hillcrest Hospitaltart: 06-11-1978 End: 08-03-1204Iavjuzt of tobacco useCurrent smokerMercy Health St. [facility] Hospitaltart: 06-11-1978 End: 99-10-7770Hmpyncs of tobacco useCigarette SmokerMercy Health St. [facility] Hospitaltart: 06-24-2020 End: 81-89-6373Jjukznbjxp smoked current (pack per day) - Reported1.5[facility] ClinicStart: 65-67-8188Wizptpr use and exposureSmokeless tobacco non-user [facility]tart: 37-25-4734Vbqmwpz intakeNot AskedMercy Health St. [facility] Hospitaltart: 53-57-8846Ilh Assigned At BirthNot on fileCleveland Clinic Euclid Hospital Functional Status KntbNkuwbsceqrBrunbiXgcwmeci52-70-9582Izcwdpmyan StatusN/AExec[facility] Jpptkjtu31-89-3284Zea you deaf, or do you have serious difficulty hearingYes 06/10/2014 9:10 AM Josefina Davidson RN Yes [facility] HospitalTylhtm51-07-9989Ief you blind, or do you have serious difficulty seeing, even when wearing glassesNo 06/10/2014 9:10 AM Josefina Davidson RN No [facility] HospitalKbhmfl88-27-3881Pa you have serious difficulty walking or climbing stairsYes 06/10/2014 9:10 AM Josefina Davidson RN YesC[facility] Clinic [facility] Hospital03-03-2015 Do you have difficulty dressing or bathingNo 06/10/2014 9:10 AM Josefina Davidson RN [facility] CenterXegmsu51-09-5516Foxzcvv of a physical, mental, or emotional condition, do you have difficulty doing errands alone such as visiting a physician's office or shoppingNo 06/10/2014 9:10 AM Josefina Davidson RN No [facility] Mental Status CaraYizbwifuiqFfxidyBnxlmllr36-16-7021Acabtyr of a physical, mental, or emotional condition, do you have serious difficulty concentrating, remembering, or making decisionsNo 06/10/2014 9:10 AM Josefina Davidson RN [facility] Clinical Notes 03-18-2022 to 01-22-2025 Note Date & WyeoKpnzNmphojna87-58-5996 NoteSubjective Patient ID: Pablo Beckman is a [...] in about 1 year (around 01/22/2026) for Recheck.[facility]04-10-2025 NoteCardiovascular Medicine [place] [facility] SUBJECTIVE Chief Complaint Patient presents with [...] cuts himself at work. 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 Patient states he get short of breath with exertion he denies chest pain. Patient would like to talk about possible stopping one of his blood thinners due to bruising. Review of Systems Cardiovascular: Positive for dyspnea on exertion. Hematologic/Lymphatic: Bruises/bleeds easily.[facility] 06-24-2024 Telephone encounter Note* Telephone Encounter - Kitty Bruner - 06/24/2024 12:58 PM EDT Pablo is scheduled for his 1 year follow up on 06/18/24 at 4:30. His lab order has been fax[facility] to [facility]. Kitty B PSS [facility]03-17-2025 Miscellaneous Notes* Telephone Encounter - Kitty Bruner - 06/24/2024 12:58 PM EDT Pablo is scheduled for his 1 year follow up on 06/18/24 at 4:30. His lab order has been faxed to [facility]. Kitty B PSS * Telephone Encounter - Josefina Ring RN - 06/20/2024 11:16 AM EDT GAYLE- please sign order. Josefina Ring RN * Telephone Encounter - Bel Harrison - 06/20/2024 11:06 AM EDT Appointment scheduled in 1 year, will need to fax PSA order to [place] when available. * Telephone Encounter - Josefina Ring RN - 06/20/2024 9:58 AM EDT Images from the original note were not included. Message Received: 2 days ago Quinton Williamson MD P Radanna [facility] Rad Nurse [place]; Josefina Mulligan One year with psa documented in this encounterCleveland Clinic Eucl[facility] Hospital03-13-2025 Telephone encounter Note * Telephone Encounter - Josefina Ring RN - 06/20/2024 11:16 AM EDT GAYLE- please sign order. Josefina Ring RN [facility]03-13-2025 Telephone encounter Note* Telephone Encounter - Bel Harrison - 06/20/2024 11:06 AM EDT Appointment scheduled in 1 year, will need to fax PSA order to [place] when available. [facility]03-13-2025 Telephone encounter Note* Telephone Encounter - Josefina Ring, TOOTIE - 06/20/2024 9:58 AM EDT Images from the original note were not included. Message Received: 2 days ago Quinton Williamson MD P Radt [facility] Nurse [place]; Josefina Mulligan One year with psa [facility]03-11-2025 NoteHNO ID: [id number] Author: Quinton WILLIAMSON MD Service: ? Author [...] year. Total Time Spent: 10minutes Quinton Williamson [facility]03-11-2025 History of Present illness Narrative* Quinton Williamson [...] 10minutes Quinton Williamson MD documented in this encounterCleveland Clinic Eucl[facility] Hospital03-03-2025 Hospital Discharge instructions Patient Education 06/10/2024 [...] Follow these instructions at home: Medicines Take scbe-tnu-rgldfou and prescription medicines only as told by [...] or the blood stops without treatment. Take lwaj-eod-rxcfswv and prescription medicines only as told by your health care provider. Drink enough fluid to keep your urine pale yellow. This information is not intended to replace advice given to you by your health care provider. Make sure you discuss any questions you have with your health care provider. Document Revised: 11/25/2020 Document Reviewed: 11/25/2020 [employer] Patient Education 2023 [employer]. Follow Up Care 06/07/2024 09:57:37 With:[facility] [place] Address: [facility] 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 Take ufwj-iei-tsckbgo and prescription medicines only as told by [...] the blood stops without treatment. ??? Take aruu-mbk-pwrveyq and prescription medicines only as told by your health care provider. ??? Drink enough fluid to keep your urine pale yellow. This information is not intended to replace advice given to you by your health care provider. Make sure you discuss any questions you have with your health care provider. Document Revised: 11/25/2020 Document Reviewed: 11/25/2020 [employer] Patient Education ? 2023 [employer].[facility] 06-03-2024 NoteCardiology Clinic Note Chief Complaint: No chief complaint on file. HPI: Pbalo Beckman is a 68 y.o. male who has a past medical history of Aneurysm, Atrial fibrillation ([facility]), Coronary artery disease, Diastolic dysfunction, Hyperlipidemia, Hypertension, Left ventricular systolic dysfunction, and NSVT (nonsustained ventricular tachycardia) ([facility]). that is referred to Cardiology [...] past medical history of Aneurysm, Atrial fibrillation ([facility]), Coronary artery disease, Diastolic dysfunction, Hyperlipidemia, Hypertension, Left ventricular systolic dysfunction, and NSVT (nonsustained ventricular tachycardia) ([facility]). Surgical History He has a [...] Value Ventricular Rate 62 Atrial Rate 62 IL Interval 110 QRS DURATION 90 QT Interval 446 QTC CALCULATION(BAZETT) 452 P [place] 4 R-[place] 4 T Wave [place] -11 Impression Sinus rhythm Since previous tracing [...] t (more content not included)... [facility]03-13-2024 Miscellaneous Notes* Telephone Encounter - Latisha RojasDEVIKA [...] advise. Latisha Rojas RN documented in this encounterCleveland Clinic [facility]ucl[facility] Hospital02-13-2024 Miscellaneous Notes* Telephone Encounter - Josefina Ring RN - 05/23/2023 9:43 AM EST PT called in to schedule follow up for this year. He will also need PSA. Please sign pended order and we will fax to [facility]. Josefina Ring RN documented in this encounterCleveland Clinic [facility]03-16-2023 History of Present illness Narrative* G [...] minutes Quinton Williamson MD documented in this encounterCleveland Clinic [facility] Hospital03-16-2023 Miscellaneous Notes* Telephone Encounter - Kwaku Rasmussen - 06/23/2022 10:04 AM EDT Appointment has been changed in Epic. Kwaku Rasmussen * Telephone Encounter - Josefina Ring RN - 06/23/2022 9:[address] Williamson, mark to switch to phone visit. Patient was notified. PSS- please change in [facility]. Josefina Ring RN * Telephone Encounter - Latisha Rojas LPN - 06/22/2022 12:36 PM EDT Pablo called wondering if his follow up appointment can be switched to a phone visit tomorrow. Please advise. Latisha Rojas LPN documented in this encounterCleveland Clinic [facility]ucl[facility] Hospital12-09-2022 NoteOPERATIVE NOTE OPERATION DATE: 03/18/2022 PREOPERATIVE [...] in good condition. CC: Guillermo Chance M.D.[facility] HospitalEvformerly [facility] + Plan note No data available for this section General Surgery [place] Evaluation note* Diagnosis Malignant neoplasm of prostate (HCC)- Primary Malignant neoplasm of prostate documented in this encounter [facility] note* Diagnosis Malignant neoplasm of prostate (HCC)- Primary Malignant neoplasm of prostate documented in this encounter [facility] note* Diagnosis Malignant neoplasm of prostate (HCC)- Primary Malignant neoplasm of prostate documented in this encounter [facility] note* Diagnosis Personal history of prostate cancer- Primary Personal history of malignant neoplasm of prostate documented in this encounter [facility] note* Diagnosis Personal history of prostate cancer- Primary Personal history of malignant neoplasm of prostate documented in this encounter [facility] Discharge instructions No data available for this section General Surgery [place] Progress note No data available for this section General Surgery [place] Summary Purpose Family History No Family History [...] and content) DATE CREATED AUTHOR 04/15/2021 [facility] DATE CREATED AUTHOR AUTHOR'S ORGANIZ ATION 08/08/2022 [facility] DATE CREATED AUTHOR AUTHOR'S ORGANIZ ATION 06/16/2024 [facility] DATE CREATED AUTHOR AUTHOR'S ORGANIZ ATION 06/26/2024 [facility] DATE CREATED AUTHOR AUTHOR'S ORGANIZ ATION 01/24/2025 [facility] Patient Care team informatio n (unrecognized section and content) Team MemberRelationshipSpecialtyStart DateEnd Date Guillermo Chance MD PCP - Jxixfdc36/17/09Team MemberRelationshipSpecialtyStart DateEnd Date Guillermo Chance MD PCP - Bxeivqf13/17/09Team MemberRelationshipSpecialtyStart DateEnd Date Guillermo Chance MD [facility] - Wwumltn06/17/09Team MemberRelationshipSpecialtyStart DateEnd Date Guillermo Chance MD [facility] - Heyqapb23/17/09 Source Comments (unrecognize d section and content) In the event this informatio n is protected by the Federal Confidentiality of Alcohol and Drug Abuse Patient Records regulations: The Federal rules restrict any use of the information to criminally investigate or prosecute any alcohol or drug abuse patient.[facility] the event this information is protected by the Federal Confidentiality of Alcohol and Drug Abuse Patient Records regulations: The Federal rules restrict any use of the information to criminally investigate or prosecute any alcohol or drug abuse patient.[facility] Hospital[facility] the event this information is protected by the Federal Confidentiality of Alcohol and Drug Abuse Patient Records regulations: The Federal rules restrict any use of the information to criminally investigate or prosecute any alcohol or drug abuse patient.[facility] Hospital[facility] the event this information is protected by the Federal Confidentiality of Alcohol and Drug Abuse Patient Records regulations: The Federal rules restrict any use of the information to criminally investigate or prosecute any alcohol or drug abuse patient.[facility] HospitalIn the event this information is protected by the Federal Confidentiality of Alcohol and Drug Abuse Patient Records regulations: The Federal rules restrict any use of the information to criminally investigate or prosecute any alcohol or drug abuse patient.[facility] HospitalIn the event this information is protected by the Federal Confidentiality of Alcohol and Drug Abuse Patient Records regulations: The Federal rules restrict any use of the information to criminally investigate or prosecute any alcohol or drug abuse patient.[facility] Reason for Visit (unrecogniz ed section and content) ReasonCommentsPatient QuestionReasonCommentsEstablished PatientSpecialty Diagnoses / ProceduresReferred By ContactReferred To ContactRadiation Oncology / RADIATION ONCOLOGY Diagnoses Follow-up examination 1 yr follow up, psa at [place] Procedures OFFICE/OUTPATIENT ESTABLISHED MOD MDM 30-39 MIN EST PATIENT Quinton Williamson MD [address] [place] [address] [place] [address] Quinton Williamson MD [address] [place] [address] [place] [address] Referral IDStatusReasonStart DateExpiration DateVisits RequestedVisits [id number] AppointmentReason CommentsResultsAppointment FOR RECORDS PERTAINING TO PATIENTS [...] BE BASED ON THE PRIMARY CLINICAL RECORDS. [facility] [employer] [facility]. provides no warranty or guarantee of the accuracy or completeness of information in this document.
--- OUTSIDE RECORDS SUMMARY | 2025-03-16 15:25 | XMS_ITS | Encounter Summary ---
Author Organization [facility] Address [address] [facility] [place] [address] Care Team Providers Care Bore Miner Operator Name Role Phone Guillermo Heard MD Primary Care Provider [phone] Encounter Details DateTypeDepartmentCare Team (Latest Contact Info)Bhwwmskoxkr31/04/2025amboo flowsheet [facility] [address] [place] [address] Christian Barton, PRODUCT APPLICATIONS ENGINEER [address] [place] [address] Social History Tobacco UseTypesPacks/DayYears UsedDateSmoking Tobacco: FormerCigarettesSex and Gender InformationValueDate RecordedSex Assigned at BirthNot on fileLegal Sex Male06/22/2022 7:01 PM EDTGender IdentityNot on fileSexual OrientationNot on filedocumented as of this encounter Plan of Treatment Not on file documented as of this encounter Visit Diagnoses Not on filedocumented in this encounter Care Teams Team MemberRelationshipSpecialtyStart DateEnd Date Guillermo Heard MD [address] [place] [address] PCP - GeneralFamily Iqbvgjql38/2/25documented as of this encounter
--- OUTSIDE RECORDS SUMMARY | 2025-03-16 15:25 | XMS_ITS ---
Author Organization [facility] Address [address] [place] [address] Care Team Providers Care Residential Sales Rep Name Role Phone Guillermo Heard MD Primary Care Provider [phone] Active Problems ProblemNoted DateDiagnosed DateAcquired propwuvfizkbnglru80/10/2025hest pain 07/18/2024Diverticular disease of colon07/18/20247917Azkgptlsm28/10/2025Lumbar radicular pain07/18/2024Malignant tumor of cnrabmzh85/10/2025Osteoarthritis of knee07/18/2024Other specified disorders of kidney and lbwuwb8307/18/2024Kidney gxtske4207/18/20247785Bmhnpu89/24/2025ile reflux gvqwoogmg03/24/2025MI 28.0-28.9,adult06/03/2024PH (benign prostatic hyperplasia)06/03/2024ataract 06/03/2024hange in bowel tjzbmu4706/03/20244143Uubetqbyehwycf95/24/2025Dyspepsia 06/03/2024Gout06/03/2024Helicobacter pylori ab+06/03/2024Helicobacter pylori /24/2025History of retinal hfnumyqkvp35/24/2025Iron deficiency anemia 06/03/2024Long term current use of ywellgzvcoior46/24/2025Macular puckering 06/03/20245040Odzwgj86/24/2025Occult blood positive stool06/03/2024Paresthesia 06/03/2024Rectal kpzvutwyrt63/24/2025Sleep apnea06/03/20245382Dlshzm98/24/2025 Umbilical qppkch7706/03/2024Unintentional weight loss06/03/2024bnormal stress test06/03/2024DOE (dyspnea on exertion)06/03/2024Mixed qcvokglhzlbzvh03/30/2024 Aneurysm of ascending aorta03/17/2021iastolic bolmgaagkzy20/08/2021Hypertensive ylyyrnqz99/08/2021eft ventricular systolic dnoxusbbmaz14/08/2021aroxysmal atrial jiafvjznannw70/19/2021adiotherapy follow-up06/10/2014Personal history of prostate abjblf8310/31/2013NSVT (nonsustained ventricular tachycardia)Coronary artery disease Current Treatment and Therapy Plans No current plan information found. Past Treatment and Therapy Plans No past plan information found. Lifetime Dose Tracking * ChemicalLifetime DoseAutomatic EntryManual EntryFluoro Time10.2 minutes0 owruqyu35.2 minutesAir Kerma1,363 mGy0 mGy1,363 mGyDose Area Jnyssec298,097 mGy-cm20 mGy-np2140,097 mGy-cm2
--- OUTSIDE RECORDS SUMMARY | 2025-03-16 15:25 | XMS_ITS | Patient Health Record ---
Author Organization [facility] in [place] Address [address] [place] [address] Care Team Providers Care Maintenance Mechanic Engine Name Role Phone Gareth Heard Primary Care Provider Allergies No Known Allergies Results Component Value Reference Range Notes GLYCOHEMOGLOBIN A1C Reviewed date:05/08/2024 08:54:32 PM Interpretation: Performing Lab: Notes/Report: [facility] , Glycohemoglobin A1C 5.5 4.5-6.2 % ADA RECOMMENDED LIMIT 4.0 - 6.0 ACTION SUGGESTED ADA THERAPEUTIC TARGET < 7.0 > 7.0 Estimated Average Glucose 111 Performing Lab:see note - [facility] LBOccult Blood* Reviewed date:05/09/2024 08:06:16 PM Interpretation: Performing Lab: Notes/Report: [facility] ,Occult BloodPositivePerforming Lab:see [facility] - [facility] LBMR lumbar spine wo con Reviewed date:12/23/2024 02:55:34 PM Interpretation: Performing Lab: Notes/Report: Source Facility: [facility] [place] [address] [place] [address] Magnetic Resonance Report Signed Patient: PABLO BECKMAN MR#: [id number] : 1955 Acct:[id number] Age/Sex: 69 / M ADM Date: 12/23/24 Loc: MRI Attending Dr: Lv Heard M.D. Ordering Physician: Lv Heard M.D. Date of Service: 12/23/24 Procedure(s): MR lumbar spine wo con Accession Number(s): [id number] cc: Lv Heard M.D. [address] [address] Patient Name: PABLO BECKMAN MRN: [id number] date: 1955 Sex: M Assigned Patient Location: MRI Current Patient Location: MRI Accession/Order Number: [id number] Exam Date: 12/23/2024 09:45 Report Date: 12/23/2024 [...] narrowing identified. L2-L3: Broad-base disc bulge with ppcv-qm-vbafasqj facet arthropathy. Mild canal narrowing. There is mild right neural foraminal narrowing and xfrq-tn-cvfjvpxo left neural foraminal narrowing identified. L3-4: Circumferential disc bulge with moderate to severe right moderate left facet arthropathy. There is moderate severe right moderate left neural foraminal narrowing. L4-5: Broad-based bulge with nkkx-wx-sbudyxsx facet arthropathy. This results in moderate right and nbtz-di-gugtuaxf left neural from narrowing. Canal is patent. [...] Philip M.D. 12/23/2024 2:32 PM Dictation Location: [place] [address] Electronically authenticated by: [id number] Y Date: 12/23/2024 14:32 Dictated By: Hector Philip M.D. Signed By: 12/23/241434 DD/ 31 TD/TT: Interlocking Machine Operator:PROF MARIANNE Baker ([facility]) Reviewed date:01/22/2025 07:39:21 PM Interpretation: Performing Lab: Notes/Report: [facility] ,Hbgrpr421687-899 mmol/LPotassium4.13.5-5.1 mmol/ZWhlhhhqp60048-208 mmol/LCarbon Tdyoeoe03.621.0-32.0 mmol/LAnion Gap13.7Kebjulw7904-264 mg/dLBlood Urea Nitrogen 37.07.0-18.0 mg/dLCreatinine1.160.70-1.30 mg/dLEstimated GFR ( Diann>60 >=60 mL/min/1.73m 2Estimated GFR (Non- Mignon>60>=60 mL/min/1.73m 2BUN Creatinine Ratio31.9Wngbioq5.28.5-10.1 mg/dLPerforming Lab:see noteML - [facility] LBCA echo doppler complete Reviewed date:08/02/2024 12:25:34 PM Interpretation: Performing Lab: Notes/Report: Source Facility: [facility] [place] [address] [place] [address] Cardiology Report Signed Patient: PABLO BECKMAN MR#: [id number] : 1955 Acct:[id number] Age/Sex: 68 / M ADM Date: 08/02/24 Loc: CARD Attending Dr: MAMTA ARIAS APRN Ordering Physician: MAMTA ARIAS APRN Date of Service: 08/02/24 Procedure(s): CA echo doppler complete Accession Number(s): [id number] cc: Lv Heard M.D.; MAMTA ARIAS APRN Patient Name: PABLO BECKMAN MR#: [id number] : 1955 Exam Date: 08/02/2024 Ordering Doctor: [...] Area (VTI): 2.74 cm2, 2.74 cm2 Deceleration Wheeler: 1.26 m/s2 Pressure Half-Time: 537.05 ms Peak [...] 09:56 Dictated By: JT MILES Signed By: 08/02/2457 DD/ TD/TT: Interlocking Machine Operator:PSA Reviewed date:06/12/2024 09:24:51 PM Interpretation: Performing Lab: Notes/Report: [facility] ,Prostate Specific Antigen Dx<0.13<=4.00 ng/mLPerforming Lab:see noteML - [facility] LBPROF CHEM 8 (BAS METB) Reviewed date:06/12/2024 09:24:51 PM Interpretation: Performing Lab: Notes/Report: [facility] ,Ulfgvp062257-083 mmol/LPotassium3.73.5-5.1 mmol/JEmjguhfh95466-511 mmol/LCarbon Vmqtfrl81.621.0-32.0 mmol/LAnion Gap14.9Twnssia72842-422 mg/dLBlood Urea Wfxjezlz98.07.0-18.0 mg/dLCreatinine1.230.70-1.30 mg/dLEstimated GFR ( Diann>60>=60 mL/min/1.73m 2Estimated GFR (Non- Ame59>=60 mL/min/1.73m 2 BUN Creatinine Ratio13.5Kovbdjc2.98.5-10.1 mg/dLPerforming Lab:see noteML - [facility] LBCBC AUTO DIFF Reviewed date:06/12/2024 09:24:51 PM Interpretation: Performing Lab: Notes/Report: [facility] ,White Blood Count6.94.0-11.0 10 3/uLRed Blood Count3.344.70-6.10 10 6/uL Anrvhghsfv56.014.0-18.0 g/sPSbbdhjvgah28.842.0-54.0 %Mean Corpuscular Fpvsal41.2 80.0-94.0 fLMean Corpuscular Dxxmmslvjs08.925.9-34.0 pgMean Corpuscular HGB Conc 33.529.9-35.2 g/dLRed Cell Distribution Width14.711.0-15.0 %Platelet Pwmqp428 150-450 10 3/uLMean Platelet Volume9.39.5-13.5 fLNeutrophils Percent Auto60.4 43.0-75.0 %Lymphocytes Percent Auto21.920.5-60.0 %Monocytes Percent Auto16.21.7- 12.0 %Eosinophils Percent Auto1.00.9-7.0 %Basophils Percent Auto0.10.2-2.0 % Immature Granulocytes Pct Auto0.40.0-0.5 %Neutrophils Absolute Auto4.21.4-6.5 10 3/uLLymphocytes Absolute Auto1.51.2-3.8 10 3/uLMonocytes Absolute Auto1.10.3- 0.8 10 3/uLEosinophils Absolute Auto0.10.0-0.7 10 3/uLBasophils Absolute Auto0.0 0.0-0.1 10 3/uLImmature Granulocytes Abs Auto0.030.00-0.03 10 3/uLPerforming Lab:see noteML - [facility] LBCT ABDOMEN WO or W CON Reviewed date:06/03/2024 08:25:19 PM Interpretation: Performing Lab: Notes/Report: Source Facility: [place] [address] [place] [address] CT Scan Report Signed Patient: PABLO BECKMAN MR#: [id number] : 1955 Acct:[id number] Age/Sex: 68 / M ADM Date: 06/03/24 Loc: CT Attending Dr: Lv Heard M.D. Ordering Physician: Lv Heard M.D. Date of Service: 06/03/24 Procedure(s): CT abdomen wo/w con Accession Number(s): [id number] cc: Lv Heard M.D. [place] [address] Patient Name: PABLO BECKMAN MRN: [facility]:[id number] date: 1955 Sex: M Assigned Patient Location: CT Current Patient Location: CT Accession/Order Number: [id number] Exam Date: 06/03/2024 10:39 Report Date: 06/03/2024 [...] Renea Odom M.D.06/03/2024 10:58 AM Dictation Location: [place] [address] Electronically authenticated by: [id number] Y Date: 06/03/2024 10:58 Dictated By: Renea Odom M.D. Signed By: 06/03/24 1101 DD/ 1058 TD/TT: Interlocking Machine Operator:BERNARD trevin perf SPECT rest str Reviewed date:05/28/2024 08:42:41 PM Interpretation: Performing Lab: Notes/Report: Source Facility: [place] [address] [place] [address] Nuclear Medicine Report Signed Patient: PABLO BECKMAN MR#: [id number] : 1955 Acct:[id number] Age/Sex: 68 / M ADM Date: 05/28/24 Loc: BERNARD Attending Dr: Lv Heard M.D. Ordering Physician: Lv Heard M.D. Date of Service: 05/28/24 Procedure(s): NM trevin perf SPECT rest str Accession Number(s): [id number] cc: Lv Heard M.D. Patient Name: PABLO BECKMAN MR#: [id number] : 1955 Exam Date: 05/28/2024 Ordering Doctor: [...] Stark M.D. Signed By: 05/28/24 1337 DD/ 133 TD/TT: Interlocking Machine Operator:PSA Total+% Free Reviewed date:05/09/2024 08:06:16 PM Interpretation: Performing Lab: Notes/Report: [facility] ,Prostate Specific Ag<0.10.0-4.0 ng/mL followed by a subsequent confirmatory PSA value 0.2 ng/mL recurrence as an initial PSA value 0.2 ng/mL or greater should decrease and remain at undetectable levels after or greater. Values obtained with different assay methods or kits cannot be used interchangeably. Results cannot be Verified by repeat analysis of malignant disease. interpreted as absolute evidence of the presence or absence radical prostatectomy. The AUA defines biochemical According to the [place] [employer], Serum PSA Melquiades ECLIA methodology. PSA, Free<0.02N/A ng/mLRoche ECLIA methodology.% Free PSATNP. % 279:1542). 10.01-15.00% 24% 35% recommendations regarding the use of % Free PSA 50-64 yr 65-75 yr percent free PSA for any other population Unable to calculate result since non-numeric result 15.01-20.00% 17% 23% Performed at: [facility] >25.00% 5% 9% obtained for component test. Please note: Hue et al did not make specific The table below lists the probability of prostate cancer for [address] [place] [address] [phone] 0.00-10.00% 56% 55% Lisw: Jim Rossi PhD, Phone: [phone] of men. 4 and 10 ng/mL, by patient age (Hue et al, KATHRIN 1998, men with non-suspicious CLAUDINE results and total PSA between 20.01-25.00% 10% 20% Performing Lab:see noteLC - [facility] LBURIC ACID SERUM Reviewed date:05/08/2024 08:54:32 PM Interpretation: Performing Lab: Notes/Report: [facility] ,Uric Acid9.13.5-7.2 mg/dLPerforming Lab:see noteML - [facility] LB TSH Reviewed date:05/08/2024 08:54:32 PM Interpretation: Performing Lab: Notes/Report: [facility] ,Thyroid Stimulating Hormone0.5900.358-3.740 uIU/mLPerforming Lab:see noteML - [facility] LBT4 Reviewed date:05/08/2024 08:54:32 PM Interpretation: Performing Lab: Notes/Report: [facility] ,T4 Thyroxine5.904.50-12.10 ug/dLPerforming Lab:see noteML - [facility] LBPROF 14(COMP METB) Reviewed date:05/08/2024 08:54:32 PM Interpretation: Performing Lab: Notes/Report: [facility] ,Ugcsyi306076-083 mmol/LPotassium3.93.5-5.1 mmol/DEswjqfpo08246-845 mmol/LCarbon Zciwjih55.721.0-32.0 mmol/LAnion Gap13.2Nnqtols77215-453 mg/dLBlood Urea Koscqdho23.07.0-18.0 mg/dLCreatinine1.200.70-1.30 mg/dLEstimated GFR ( Diann>60>=60 mL/min/1.73m 2Estimated GFR (Non- Mignon>60>=60 mL/min/1.73m 2BUN Creatinine Ratio18.3Kqbhoxp3.98.5-10.1 mg/dLBilirubin Total0.40.2-1.0 mg/dL Aspartate Amino Ntnhndahung1489-77 U/LAlanine Okgmrusyrtrbxewd5942-04 U/L Alkaline Hutfleiiocq0225-195 U/LTotal Protein7.46.4-8.2 g/dLAlbumin Level3.43.4- 5.0 g/dLGlobulin4.0Albumin Globulin Ratio0.9Performing Lab:see noteML - [facility] LBLIPID PROFILE Reviewed date:05/08/2024 08:54:32 PM Interpretation: Performing Lab: Notes/Report: [facility] ,Gsankyimdbhdd73<=150 mg/cIDamjuwykpuc330<=200 mg/dLHDL Njspwxjgguv6131-45 mg/dL <40 mg/dl - HIGH CARDIOVASCULAR RISK > or =60 mg/dl - LOW CARDIOVASCULAR RISK LDL Cholesterol Mbrahiibnq56.8 160-189 mg/dl HIGH <100 mg/dl OPTIMAL >190 mg/dl VERY HIGH 100-129 mg/dl NEAR OR ABOVE OPTIMAL 130-159 mg/dl BORDERLINE HIGH VLDL PAWAXLHDVDD17.2Chol HDL Ratio2.0 3.3 - 4.4 LOW RISK >11.0 HIGH RISK 4.4 - 7.1 AVERAGE RISK 7.1 - 11.0 MODERATE RISK Performing Lab:see noteML - [facility] LBINSULIN Reviewed date:05/09/2024 08:06:16 PM Interpretation: Performing Lab: Notes/Report: [facility] ,Fmbeuzw58.22.6-24.9 uIU/mL [address] [place], [place] [id number] Lisw: Jim Rossi PhD, Phone: [phone] Performed at: - [facility] Performing Lab:see note - [facility] LBFREE T3 Reviewed date:05/08/2024 08:54:32 PM Interpretation: Performing Lab: Notes/Report: [facility] ,Free T31.482.18-3.98 pg/mLPerforming Lab:see note - [facility] LB CBC AUTO DIFF Reviewed date:05/08/2024 08:54:32 PM Interpretation: Performing Lab: Notes/Report: [facility] ,White Blood Count7.54.0-11.0 10 3/uLRed Blood Count3.204.70-6.10 10 6/uL Bzgbwgrzad36.514.0-18.0 g/lOBoojiusrha48.942.0-54.0 %Mean Corpuscular Yciowv53.7 80.0-94.0 fLMean Corpuscular Walhctmasw84.825.9-34.0 pgMean Corpuscular HGB Conc 32.929.9-35.2 g/dLRed Cell Distribution Width14.311.0-15.0 %Platelet Syrls845 150-450 10 3/uLMean Platelet Volume9.19.5-13.5 fLNeutrophils Percent Auto71.9 43.0-75.0 %Lymphocytes Percent Auto16.320.5-60.0 %Monocytes Percent Auto11.01.7- 12.0 %Eosinophils Percent Auto0.00.9-7.0 %Basophils Percent Auto0.00.2-2.0 % Immature Granulocytes Pct Auto0.80.0-0.5 %Neutrophils Absolute Auto5.41.4-6.5 10 3/uLLymphocytes Absolute Auto1.21.2-3.8 10 3/uLMonocytes Absolute Auto0.80.3- 0.8 10 3/uLEosinophils Absolute Auto0.00.0-0.7 10 3/uLBasophils Absolute Auto0.0 0.0-0.1 10 3/uLImmature Granulocytes Abs Auto0.060.00-0.03 10 3/uLPerforming Lab:see noteML - [facility] LBXR chest 1V Reviewed date:04/21/2024 05:26:11 PM Interpretation: Performing Lab: Notes/Report: Source Facility: [facility] [place] [address] [place] [address] XRay Report Signed Patient: PABLO BECKMAN MR#: [id number] : 1955 Acct:[id number] Age/Sex: 68 / M ADM Date: 04/21/24 Loc: ER Attending Dr: Ordering Physician: Monae Henry M.D. Date of Service: 04/21/24 Procedure(s): XR chest 1V Accession Number(s): [id number] cc: Lv Heard M.D.; Monae Henry M.D. [place] [address] Patient Name: PABLO BECKMAN MRN: [id number] date: 1955 Sex: M Assigned Patient Location: ED.MAIN Current Patient Location: ED.MAIN Accession/Order Number: [id number] Exam Date: 04/21/2024 09:58 Report Date: 04/21/2024 [...] Signed By: 04/21/24 1058 DD/ 1056 TD/TT: Interlocking Machine Operator:ECG 12 lead Reviewed date:04/22/2024 08:03:33 PM Interpretation: Performing Lab: Notes/Report: Source Facility: [facility] [place] [address] [place] [address] Electrocardiograph Report Signed Patient: PABLO BECKMAN MR#: [id number] : 1955 Acct:[id number] Age/Sex: 68 / M ADM Date: 04/21/24 Loc: ER Attending Dr: Ordering Physician: Monae Henry M.D. Date of Service: 04/21/24 Procedure(s): ECG 12 lead Accession Number(s): [id number] cc: [facility] Test Date: 2024-04-21 Pat Name: PABLO BECKMAN Department: Room: - Gender: Male [employer]: : 1955 Requested By: LV HEARD Order Number: [id number] Reading MD: LV HEARD Measurements Intervals [place] Rate: 82 P: 22 DE: 138 QRS: 26 QRSD: 80 T: 25 [...] Signed By: 04/22/24 0810 DD/ 0906 TD/TT: Interlocking Machine Operator:SARS-CoV-2 Ag* Reviewed date:04/21/2024 10:20:03 AM Interpretation: Performing Lab: Notes/Report: [facility] ,SARS-CoV-2 AgNEGATIVENEGATIVE Act, 21 U.S.C. 360bbb-3(b)(1), unless the declaration is and/or diagnosis of Covid-19 under section 564(b)(1) of the circumstances exist justifying the authorization of CLIA that meet the requirements to perform moderate or high terminated or authorization is revoked sooner. authorized by the FDA under an Emergency Use Authorization authorized for the duration of the declaration that This test has not been FDA cleared or approved, but has been complexity testing. This test has been authorized only for the detection of proteins from SARS-CoV-2, not for any other viruses or pathogens. The emergency use of this test is (EUA) for use by authorized laboratories certified under emergency use of in vitro diagnostic tests for detection Performing Lab:see note - [facility] LBPROF CHEM 8 (BAS METB) Reviewed date:04/21/2024 10:20:03 AM Interpretation: Performing Lab: Notes/Report: [facility] ,Dhpgyj676662-196 mmol/LPotassium3.83.5-5.1 mmol/KLuvpkgbb05708-752 mmol/LCarbon Ikqfdsc39.621.0-32.0 mmol/LAnion Gap16.0Odhgzql68563-517 mg/dLBlood Urea Cwdxdzzx16.07.0-18.0 mg/dLCreatinine1.390.70-1.30 mg/dLEstimated GFR ( Diann>60>=60 mL/min/1.73m 2Estimated GFR (Non- Ame51>=60 mL/min/1.73m 2 BUN Creatinine Ratio15.2Hxqmpic9.88.5-10.1 mg/dLPerforming Lab:see note - [facility] LBINFLUENZA A AND B AG Reviewed date:04/21/2024 10:20:03 AM Interpretation: Performing Lab: Notes/Report: [facility] ,Influenza Virus A AntigenPositive NOTE: Live attenuated [...] detection limit of the test. Performing Lab:see note - [facility] LBCBC AUTO DIFF Reviewed date:04/21/2024 10:20:03 AM Interpretation: Performing Lab: Notes/Report: [facility] ,White Blood Count5.64.0-11.0 10 3/uLRed Blood Count3.094.70-6.10 10 6/uL Mzijjsllbu39.014.0-18.0 g/aTDucybhghbs18.342.0-54.0 %Mean Corpuscular Dnwpqe94.1 80.0-94.0 fLMean Corpuscular Nwbpnhawvq40.425.9-34.0 pgMean Corpuscular HGB Conc 33.029.9-35.2 g/dLRed Cell Distribution Width14.511.0-15.0 %Platelet Cbvhq181 150-450 10 3/uLMean Platelet Volume9.19.5-13.5 fLNeutrophils Percent Auto47.9 43.0-75.0 %Lymphocytes Percent Auto28.720.5-60.0 %Monocytes Percent Auto20.91.7- 12.0 %Eosinophils Percent Auto2.10.9-7.0 %Basophils Percent Auto0.00.2-2.0 % Immature Granulocytes Pct Auto0.40.0-0.5 %Neutrophils Absolute Auto2.71.4-6.5 10 3/uLLymphocytes Absolute Auto1.61.2-3.8 10 3/uLMonocytes Absolute Auto1.20.3- 0.8 10 3/uLEosinophils Absolute Auto0.10.0-0.7 10 3/uLBasophils Absolute Auto0.0 0.0-0.1 10 3/uLImmature Granulocytes Abs Auto0.020.00-0.03 10 3/uLPerforming Lab:see noteML - [facility] LBCT angio chest Reviewed date:01/28/2025 05:50:15 PM Interpretation: Performing Lab: Notes/Report: Source Facility: [facility] [place] [address] [place] [address] CT Scan Report Signed Patient: PABLO BECKMAN MR#: [id number] : 1955 Acct:[id number] Age/Sex: 69 / M ADM Date: 01/28/25 Loc: CT Attending Dr: JASWINDER BUCKNER M.D. Ordering Physician: JASWINDER BUCKNER M.D. Date of Service: 01/28/25 Procedure(s): CT angio chest Accession Number(s): [id number] cc: Lv Heard M.D. [address] [address] Patient Name: PABLO BECKMAN MRN: [id number] date: 1955 Sex: M Assigned Patient Location: CT Current Patient Location: CT Accession/Order Number: [id number] Exam Date: 01/28/2025 07:58 Report Date: 01/28/2025 13:59 At the request of: JASWINDER BUCKNER MD Procedure: CT angio chest CTA CHEST WITH CONTRAST CLINICAL HISTORY: Aneurysm Of Ascending Aorta I71.21 COMPARISON: 01/17/2023 TECHNIQUE: Spiral images were obtained through the chest following intravenous administration of 100 mL of Omnipaque 350. Images were reviewed using both narrow and wide window settings. Sagittal, coronal and 3 D volume-rendered reconstructions were performed and reviewed. This CT exam was performed using one or more following dose reduction techniques: Automated exposure control, adjustment of the mA and/or kV according to patient size, or use of iterative reconstruction technique. FINDINGS: The heart is slightly prominent. There is no pericardial effusion. Coronary disease is seen. There is continued mild dilatation ascending aortic aorta with diameter of 4.2 cm. No dissection is noted. There is minor plaque at the arch. There is adequate opacification of the pulmonary arteries. No emboli are identified. No pathologic lymphadenopathy is seen. There is subtle upper thoracic levoscoliotic curvature and degenerative changes at the spine. There is mild atelectasis and possible scarring. There is no focal consolidation, effusion or discrete soft tissue nodules. No pneumothorax is seen. Limited cuts through the upper abdomen show no contributory abnormality. CT/CT angio chest IMPRESSION: MILD CARDIOMEGALY. STABLE 4.2 CM ASCENDING AORTIC ANEURYSM. NO CT EVIDENCE OF PULMONARY EMBOLISM. NO ACUTE INTRATHORACIC FINDINGS. Impression dictated by: Renea Odom M.D. 01/28/2025 1:59 PM Dictation Location: [place] [address] Electronically authenticated by: [id number] Y Date: 01/28/2025 13:59 Dictated By: Renea Odom M.D. Signed By: 01/28/25 8808 DD/ 8808 TD/TT: Interlocking Machine Operator: Reason For Referral Diagnosis 1 Hematuria (R31.9) Referral Organization [facility] Referring Provider First Name Gareth Referring Provider Last Name Félix Referring Provider [facility] Referred Provider [facility] Referred Provider Specialty Neurology Referral Priority Routine Diagnosis 1 Renal mass, left (N2 8.89) Diagnosis 2 Hematuria (R31.9) Referral Organization [facility] Referring Provider First Name Gareth Referring Provider Last Name [facility] Referring Provider [facility] Referred Provider Francisco Medrano Referred [...] you last smoked?> 10 yearsAdditional Findings: Tobacco Hcu-AncaWx-lpnhreyp cigarette smoker (10-19/day)Alcohol Screen (Audit-C) Question Answer Notes Did you have a drink containing alcohol in the p ast year? Yes How many drinks did you have on a typical day when you were drinking in the past year?1 or 2 drinks (0 point)How often did you have a drink containing alcohol in the past year?Weekly (3 points)Cqwsxg4JanuuwntrgzabqSfdnlypwUITDM-W (Standard) Question Answer Notes Did you have [...] Risk Notes Problem Paroxysmal atrial fi brillation (859657022) Paroxysmal atrial fibrillation (I48.0) ActiveconfirmedProblemHeart failure (38224724)Heart failure, unspecified (I50.9) ActiveconfirmedProblemMelena (7130301)Melena (K92.1)ActiveconfirmedProblem Osteoarthritis of knee (582419846)Osteoarthritis of knee, unspecified (M17.9) ActiveconfirmedProblemChest pain (63650850)Chest pain (R07.9)Activeconfirmed ProblemAtrial fibrillation (86011046)Atrial fibrillation (I48.91)Activeconfirmed ProblemHypertension (39763508)Hypertension (I10)ActiveconfirmedProblemAtrial fibrillation (disorder) (57073590)Afib (I48.91)ActiveconfirmedProblemMalignant tumor of prostate (923438453)Prostate cancer (C61)ActiveconfirmedProblem Hematuria (64507333)Hematuria (R31.9)ActiveconfirmedProblemLumbar radiculopathy (445305914)Lumbar radiculopathy (M54.16)ActiveconfirmedProblemHemorrhage of rectum and anus (771558539)Rectal bleed (K62.5)ActiveconfirmedProblemAcquired spondylolisthesis (691871422)Lumbar spondylolysis (M43.06)ActiveconfirmedProblem Lumbar radicular pain (0408188580)Lumbar radicular pain (M54.16)Activeconfirmed ProblemDiverticular disease of colon (900564928)Diverticula of colon (K57.30) ActiveconfirmedProblemCellulitis (714889254)Cellulitis of lower extremity (L03.119)ActiveconfirmedProblemDisorder of kidney and/or ureter (862846124)Renal mass, left (N28.89)ActiveconfirmedProblemSpinal stenosis of lumbar region (81236671)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)ActiveconfirmedProblem Chronic kidney disease stage 3A (disorder) (785872910)Chronic kidney disease, stage 3a (N18.31)ActiveconfirmedProblemAneurysm of ascending aorta (disorder) (697681108)Aneurysm of ascending aorta without rupture (I71.21)Activeconfirmed Vital Signs Blood pressure diastolic 84 mm Hg 01/01/2025 Lnjdeo39 in01/01/2025lood pressure mm Hg01/01/20256090Dmghfw003.6 lbs 01/01/2025BMI30.36 kg/m201/01/2025 Procedures Procedure Date Ordered Date Performed Result Body Sit e CARDIO Stress Test - Cardiolite 05/07/2024 N/A Encounters Encounter Location Date Provider Diagnosis [address] [address] 01/01/2025 Gareth Hoy Foraminal stenosis o f lumbar region M48.[address] [address] 05/07/2024 Gareth Hoy Hypertension I10 ; Paroxysmal atrial fibrillation I48.0 and Chest pain R07.[address] [address] 05/14/2024 Gareth Hoy Osteoarthritis of kn ee, unspecified M17.9 and Primary localized osteoarthritis of right knee M17.[address] [address] 07/19/2024 Gareth Hoy Prostate cancer C61 [address] [address] 11/13/2024 Gareth Heard Heart failure, unspecified I50.9 ; Chronic kidney disease, stage 3a N18.31 and Lumbar radiculopathy M54.16 [facility] [address] [place] [address] 03/22/2024 Gareth Hoy [facility] [place] [address] 04/22/2024[facility] [place] [address]/[facility] [place] [address]/[facility] [place] [address]/Doug HoyRenal mass, left N28.89 [facility] [place] [address] 05/27/2024[facility] [place] [address]/[facility] [place] [address]/Doug HoyHypertension W49NarkgvhFoothills Hospital[address] [place] [address]/Doug [facility] [place] [address] 06/03/2024Doug HoyHematuria R31.9BConejos [facility] [place] [address]/Doug HoyRenal mass, left N28.89 and Hematuria R31.9BConejos [facility] Hospital[address] [place] [address]/Doug [facility] [place] [address]/02/2025Doug HoyProstate cancer Q50EtjqycaConejos County Hospital[address] [place] [address]/Doug Hoy [facility] [place] [address] 01/01/2025Do Félix Assessments Encounter Date Diagnosis (ICD Code) Assessment Notes Treatment Notes Treatment Clinical Notes Section Notes 05/07/2024 Hypertension (ICD-10 - I10) 05/07/2024Paroxysmal atrial fibrillation (ICD-10 - I48.0)01/01/2025Foraminal stenosis of lumbar region (ICD-10 - M48.061)05/27/2024Renal mass, left (ICD-10 - N28.89)05/28/2024Hypertension (ICD-10 - I10)06/03/2024Hematuria (ICD-10 - R31.9)06/04/2024Renal mass, left (ICD-10 - N28.89)06/04/2024Hematuria (ICD-10 - R31.9)07/19/2024Prostate cancer (ICD-10 - C61)05/14/2024Osteoarthritis of knee, unspecified (ICD-10 - M17.9)styeroid ezqnfjhthr37/04/2025Primary localized osteoarthritis of right knee (ICD-10 - M17.11)07/19/2024Prostate cancer (ICD-10 - C61)11/13/2024Heart failure, unspecified (ICD-10 - I50.9)stabel on meds 11/13/2024hronic kidney disease, stage 3a (ICD-10 - N18.31)reviewed labs - cont to stay hjnqmeirr36/06/2025Lumbar radiculopathy (ICD-10 - M54.16)05/07/2024 Chest pain (ICD-10 - R07.9)11/13/2024OtherRecommended to rest and use a heating pad on the area. Take NSAIDs for pain as rzobpq3401/01/2025OtherRecommended to rest and use a heating pad on the area. Take NSAIDs for pain as needed Plan Of Treatment Pending Test Test Name Order Date CMP (COMPLETE METABOLIC PANEL) 4 HEMOGLOBIN A1C (GLYCO) 04/12/2023 HEMOGLOBIN A1C (GLYCO) 05/07/2024 INSULIN, TOTAL 05/07/2024 LIPID PANEL (CHOL/TRIG/HDL/LDL) 05/07/19 25 LIPID PANEL (CHOL/TRIG/HDL/LDL) 04/12/19 24 CBC WITH DIFF (EXP 02/2025) 04/12/2023 CBC WITH DIFF (EXP 02/2025) 05/07/2024 PSA, PROSTATE-SPECIFIC ANTIGEN 4 URIC ACID [...] ADVANTAGE CHOICE MEDICAR E HMO [address] [place] [id number] Robert Beckmanelf - patient is the insured Medications Administered Medication Instructions Date of Administration Dosage Notes Kenalog-40 20 mgKetorolac Owjyxcnfjohy23/06/202560 mgKetorolac Tromethamine mgLidocaine HCl mLOrphenadrine Gxqewyw41 mg Orphenadrine Jdwqrcc64 mgTriamcinolone 40 mg/ml mg Triamcinolone 40 mg/ml20 mgTriamcinolone 40 mg/ml20 [...] of Fibula Shaft Surgical History Surgery Date(Month/Year) VASECTOMY Right Broken LegTorn Shoulder repair- Right Shoulderhernia repairFinger tips smashed offcardiac cath06/19/24Hospitalization History Reason Date(Month/Year) back pain 03/03 Chest Pain 2022
--- OUTSIDE RECORDS SUMMARY | 2025-03-16 15:25 | XMS_ITS | Clinical Summary ---
Author Organization [facility] Address [address] [place] [address] Care Team Providers Care Tavern Car Attendant Name Role Phone Guillermo Heard MD Primary Care Provider [phone] Allergies No known active allergies Medications MedicationSigDispense [...] tablet /ctive Active Problems ProblemNoted DateDiagnosed DateAcquired mmjgwjzwlfrbpylxr19/10/2025hest pain 07/18/2024Diverticular disease of colon07/18/20247016Ckyepgzbr48/10/2025Lumbar radicular pain07/18/2024Malignant tumor of ndykbgxe15/10/2025Osteoarthritis of knee07/18/2024Other specified disorders of kidney and wybmco6307/18/2024Kidney gkpnia0407/18/20246602Spdyeu46/24/2025ile reflux dgdxoxqae78/24/2025MI 28.0-28.9,adult06/03/2024PH (benign prostatic hyperplasia)06/03/2024ataract 06/03/2024hange in bowel antrld4906/03/20245228Kgrrhnnkzdpacf38/24/2025Dyspepsia 06/03/2024Gout06/03/2024Helicobacter pylori ab+06/03/2024Helicobacter pylori rrdfoggwx44/24/2025History of retinal shesvzjwbf84/24/2025Iron deficiency anemia 06/03/2024Long term current use of xsqivvhsaoidw28/24/2025Macular puckering 06/03/20248540Eloelc22/24/2025Occult blood positive stool06/03/2024Paresthesia 06/03/2024Rectal rzjjsevxot79/24/2025Sleep apnea06/03/20247134Shcesp03/24/2025 Umbilical dwymzk7906/03/2024Unintentional weight loss06/03/2024bnormal stress test06/03/2024DOE (dyspnea on exertion)06/03/2024Mixed iquicnzfthvesa52/30/2024 Aneurysm of ascending aorta03/17/2021iastolic zogedamwble93/08/2021Hypertensive wvokimar66/08/2021eft ventricular systolic mqkoeadokoq78/08/2021aroxysmal atrial yixopgaxvoom88/19/2021Radiotherapy follow-up06/10/2014Personal history of prostate glbyhr0810/31/2013NSVT (nonsustained ventricular tachycardia)Coronary artery disease Encounters DateTypeDepartmentCare AhznWadhxepstvm69/15/2025 9:40 AM EDTOffice Visit [facility] [address] [facility] [place] [address] Anjel Corona MD Aneurysm of ascending aorta without rupture (Primary Dx); Paroxysmal atrial fibrillation (CMS/HCC)01/22/2025Orders Only [facility] [address] [facility] [place] [address] Maggie Viera MA Aneurysm of ascending aorta without rupture (Primary Dx)01/22/2025Orders Only [facility] [address] [facility] [place] [address] Maggie Viera MA Paroxysmal atrial fibrillation (CMS/HCC) [...] and Gender InformationValueDate Recorded Sex Assigned at IlbhsXowr66/10/2025 11:07 AM EDTLegal JasIxav6910/07/2021 12:40 AM EDTGender HihalqccXyku28/10/2025 11:07 AM EDTSexual OrientationHeterosexual or Osuekcyj37/10/2025 11:07 AM EDT Last Filed Vital Signs Vital SignReadingTime TakenCommentsBlood Jxtuhpdc730/8401/22/2025 9:38 AM EDT Angvg943701/22/2025 9:38 AM EDTTemperature--Respiratory Hhij854306/19/2024 3:45 PM EDTOxygen Kcohbfpjze69%07/18/2024 10:28 AM EDTInhaled Oxygen Concentration-- Qvgcbu27.5 kg (204 lb)01/22/2025 9:38 AM WPUEiglnz677.7 cm (5' 8 )01/22/2025 9:38 AM EDTBody Mass Index31.021 9:38 AM EDT Plan of Treatment Health MaintenanceDue DateLast DoneCommentsCT Cctfxsqjogph11/13/1957FIT-DNA 1956FIT1956FOBT1956Medicare Annual Wellness (AWV)1955 Dfkotbuavejwo73/13/1957Depression Gnzunckeq59/13/1969Adult Dhrmsvt4110/20/1978 Zoster Vaccines (1 of 2)2006Fall Risk Cwkjjlwgg28/13/2022Pneumococcal Vaccine: 50+ Years (2 of 2 - PPSV23, PCV20, or PCV21)/2COVID- 19 Vaccine (3 - season)504/, 07/09/2020Influenza Vaccine (#1)6228Bbztkwnwnnx59/09/203212/12/2021, 10/17/2018, 09/11/2009Colorectal Cancer Adinfzpad56/09/2032HIB VaccinesAged OutNo longer eligible based on patient's [...] Ellen Key Mr 3.50 X 20 - [id number] Implanted:Qty: 1 on 06/19/2024 by [facility]sey [facility]eks [facility] CenterDrug Eluting StentLeft: [employer] [id number] / / [id number] Insurance * Guarantor: Dillon Beckman TypeRelation to PatientDate of BirthPhone Billing AddressPersonal/YaytagCyhv80/13/1956 [address] [address] Care Teams Team MemberRelationshipSpecialtyStart DateEnd Date Guillermo Heard MD [address] [facility] [place] [address] [facility] - General12/11/21
--- OUTSIDE RECORDS SUMMARY | 2025-03-16 15:25 | XMS_ITS | Encounter Summary ---
Author Organization [facility] Address [address] [place] [address] Care Team Providers Care Financial Solutions Advisor Name Role Phone Guillermo Heard MD Primary Care Provider [phone] Encounter Details DateTypeDepartmentCare Team (Latest Contact Info)Tboyqdzvfxt32/04/2025Travel Social History Tobacco UseTypesPacks/DayYears UsedDateSmoking Tobacco: FormerCigarettesSex and Gender InformationValueDate RecordedSex Assigned at BirthNot on fileLegal Sex Male06/22/2022 7:01 PM EDTGender IdentityNot on fileSexual OrientationNot on filedocumented as of this encounter Plan of Treatment Not on file documented as of this encounter Visit Diagnoses Not on filedocumented in this encounter Care Teams Team MemberRelationshipSpecialtyStart DateEnd Date Guillermo Heard MD [address] [place] [address] PCP - GeneralFamily Qehrexcg89/2/25documented as of this encounter
--- OUTSIDE RECORDS SUMMARY | 2025-03-16 15:25 | XMS_ITS | Clinical Summary ---
Author Organization [facility] Address [address] [facility] [place] [address] Care Team Providers Care Clay Processing Labourer Name Role Phone Guillermo Heard MD Primary Care Provider [phone] Allergies No known active allergies Medications MedicationSigDispense QuantityRefillsLast FilledStart DateEnd DateStatus furosemide (Lasix) 20 MG tablet Take 20 mg by mouth in the morning and 20 mg in the evening./11/2025 Active apixaban (Eliquis) 5 MG tablet Take 1 tablet by mouthActive metoprolol tartrate (Lopressor) 75 MG tablet Take by mouth in the morning and in the evening.Active rosuvastatin (Crestor) 20 MG tablet TAKE 1 TABLET(20 MG) BY MOUTH AT ELLJQAM34/14/2025Active FeroSul 325 (65 Fe) MG tablet Take 1 tablet by mouth in the morning and 1 tablet before bedtime.Active Multiple Vitamins-Minerals (CENTRUM ADULTS PO) CentrumActive clindamycin (Cleocin) 300 MG capsule Indications:Cellulitis of right lower extremityTake 1 capsule (300 mg) by mouth in the morning and 1 capsule (300 mg) in the evening and 1 capsule(300 mg) before bedtime. Do all this for 7 days. 21 capsule /5Active Encounters DateTypeDepartmentCare UvhaOspscbzumel62/04/2025 8:15 AM ESTAncillary Procedure [facility] [address] [address] Larsbsa3803/13/2025 8:00 AM ESTOffice Visit [facility] [address] [address] Christian Barton, VASCULAR SURGEON Cellulitis of right lower extremity (Primary Dx); Right ankle pain, unspecified chronicity; Right leg pain; History of open reduction and internal fixation (ORIF) jxfvtlgyl76/04/2025amboo flowsheet [facility] [place] [address] Christian Barton NP 03/13/2025Travelfrom Last 3 Months Social History Tobacco UseTypesPacks/DayYears UsedDateSmoking Tobacco: FormerCigarettes Tobacco Cessation:Counseling Given: Not Answered Sex and Gender InformationValueDate RecordedSex Assigned at BirthNot on file Legal CdxMafy2606/22/2022 7:01 PM EDTGender IdentityNot on fileSexual Orientation Not on file Last Filed Vital Signs Vital SignReadingTime TakenCommentsBlood Pressure--Pulse--Temperature-- Respiratory Rate--Oxygen Saturation--Inhaled Oxygen Concentration--Fyfawc23.3 kg (210 lb)03/13/2025 8:04 AM ONLCksqqv083.7 cm (5' 8 )03/13/2025 8:04 AM ESTBody Mass Index31.9303/13/2025 8:04 AM EST Plan of Treatment Health MaintenanceDue DateLast DoneCommentsCT Krukcanygnhi58/13/1957FIT-DNA 1956FIT1956FOBT1955 7492Kjcmsfsuzlrdu91/13/1957Pneumococcal Vaccine: 65+ Years (2 of 2 - PCV20 or PCV21)OVID-19 Vaccine (3 - 2024- season)504/, 07/09/2020Influenza Vaccine (#1) 12/09/20248946Dvlglcngzgr95/09/203212/12/2021, 10/17/2018, 09/11/2009Colorectal Cancer Uawbefuzm73/09/2032 Procedures Procedure NamePriorityDate/TimeAssociated DiagnosisCommentsXR TIBIA FIBULA 2 VIEWS RTPUSVmrlfma79/04/2025 8:11 AM EST Right leg pain from Last 3 Months Results * XR tibia fibula 2 views [...] StatusChristian Barton NPIMG XR PROCEDURES Final Result from Last 3 Months Insurance * Guarantor: Dillon Beckman TypeRelation to PatientDate of BirthPhone Billing AddressPersonal/YsxipuFctk40/13/1956 [address] [address] Care Teams Team MemberRelationshipSpecialtyStart Date Guillermo Heard MD [address] [place] [address] PCP - GeneralFamily Nvyiopmv87/2/25
[2025-03-16] MEDS: METHYLPREDNISOLONE SOD SUCC PF 125 MG/2 ML VIAL IM (15:34)
[2025-03-16] MEDS: DIPHENHYDRAMINE HCL 50 MG/ML VIAL 25 MG IM (15:35)
== END 2025-03-16 15:48 | disposition home or self-care (01) ==
PROVIDERS: Emergency Provider Emergency Medicine; PCP Family Medicine
DX: L27.0 Generalized skin eruption due to drugs and medicaments taken internally (principal); T36.8X5A Adverse effect of other systemic antibiotics, initial encounter; Z87.891 Personal history of nicotine dependence
CPT/HCPCS: 96372; 99283; 99284; J1200; J2919

== ENCOUNTER 2025-03-17 14:21 | Outpatient (OUT) | payer MEDICARE, SELFPAY | END 2025-03-17 14:22 | disposition home or self-care (01) | LOC: RAD 14:22 | PROVIDERS: PCP Family Medicine; Visit Provider Family Medicine | DX: R60.0 Localized edema (principal); R60.9 Edema, unspecified | CPT/HCPCS: 93971 ==

== ENCOUNTER 2025-04-07 08:38 | Outpatient (OUT) | payer MEDICARE, SELFPAY ==
--- OUTSIDE RECORDS SUMMARY | 2025-04-07 08:41 | XMS_ITS | Patient Health Record ---
Author Organization [facility] in [place] Address [address] [place] [address] Care Team Providers Care Printer Assistant Name Role Phone Gareth Heard Primary Care Provider [phone] Allergies Allergen (clinical drug ingredient) Drug/Non Drug Allergy documented on EMR Reaction Allergy Type Onset Date Status clindamycin Clindamycin rash Drug Allergy Active Results Component Value Reference Range Notes MR lumbar spine wo con Reviewed date:12/23/2024 02:55:34 PM Interpretation: Performing Lab: Notes/Report: Source Facility: [place] [address] Magnetic Resonance Report Signed Patient: PABLO BECKMAN MR#: [id number] : 1955 Acct:[id number] Age/Sex: 69 / M ADM Date: 12/23/24 Loc: MRI Attending Dr: Lv Heard M.D. Ordering Physician: Lv Heard M.D. Date of Service: 12/23/24 Procedure(s): MR lumbar spine wo con Accession Number(s): [id number] cc: Lv Heard M.D. [place] [address] Patient Name: PABLO BECKMAN MRN: [id number] date: 1955 Sex: M Assigned Patient Location: MRI Current Patient Location: MRI Accession/Order Number: [id number] Exam Date: 12/23/2024 09:45 Report Date: 12/23/2024 [...] narrowing identified. L2-L3: Broad-base disc bulge with fxst-sa-wiqzwicx facet arthropathy. Mild canal narrowing. There is mild right neural foraminal narrowing and dwqb-bg-hpmllvne left neural foraminal narrowing identified. L3-4: Circumferential disc bulge with moderate to severe right moderate left facet arthropathy. There is moderate severe right moderate left neural foraminal narrowing. L4-5: Broad-based bulge with mhfs-ae-oolbydbx facet arthropathy. This results in moderate right and jdqw-bx-snlzkanw left neural from narrowing. Canal is patent. [...] Philip M.D. 12/23/2024 2:32 PM Dictation Location: [place] [address] Electronically authenticated by: [id number] Y Date: 12/23/2024 14:32 Dictated By: Hector Philip M.D. Signed By: 12/23/24 1435 DD/ 31 TD/TT: Mixer And Scaler: PROF MARIANNE Baker ([facility]) Reviewed date:01/22/2025 07:39:21 PM Interpretation: Performing Lab: Notes/Report: [facility] , Sodium 143 136-145 mmol/L Potassium4.13.5-5.1 mmol/OKcknyvml43210-863 mmol/LCarbon Vlflkyc46.621.0-32.0 mmol/LAnion Gap13.5Gkswppp1347-142 mg/dLBlood Urea Kopufgjj20.07.0-18.0 mg/dL Creatinine1.160.70-1.30 mg/dLEstimated GFR ( Diann>60>=60 mL/min/1.73m 2Estimated GFR (Non- Mignon>60>=60 mL/min/1.73m 2BUN Creatinine Ratio31.9 Calcium9.28.5-10.1 mg/dLPerforming Lab:see noteML - [facility] LBCT angio chest Reviewed date:01/28/2025 05:50:15 PM Interpretation: Performing Lab: Notes/Report: Source Facility: [place] [address] CT Scan Report Signed Patient: PABLO BECKMAN MR#: [id number] : 1955 Acct:[id number] Age/Sex: 69 / M ADM Date: 01/28/25 Loc: CT Attending Dr: JASWINDER BUCKNER M.D. Ordering Physician: JASWINDER BUCKNER M.D. Date of Service: 01/28/25 Procedure(s): CT angio chest Accession Number(s): [id number] cc: Lv Heard M.D. [place] [id number] Patient Name: PABLO BECKMAN MRN: [id number] date: 1955 Sex: M Assigned Patient Location: CT Current Patient Location: CT Accession/Order Number: [id number] Exam Date: 01/28/2025 07:58 Report Date: 01/28/2025 [...] Odom M.D. 01/28/2025 1:59 PM Dictation Location: [place] [address] Electronically authenticated by: [id number] Y Date: 01/28/2025 13:59 Dictated By: Renea Odom M.D. Signed By: 01/28/25 1402 DD/ 1359 TD/TT: Mixer And Scaler:PSA Reviewed date:06/12/2024 09:24:51 PM Interpretation: Performing Lab: Notes/Report: [facility] ,Prostate Specific Antigen Dx<0.13<=4.00 ng/mLPerforming Lab:see noteML - [facility] LBPROF CHEM 8 (BAS METB) Reviewed date:06/12/2024 09:24:51 PM Interpretation: Performing Lab: Notes/Report: [facility] ,Wzgxvl375344-464 mmol/LPotassium3.73.5-5.1 mmol/HIxneovir33767-669 mmol/LCarbon Ofdrkpf29.621.0-32.0 mmol/LAnion Gap14.4Fauhguf00918-408 mg/dLBlood Urea Gdujmnwk76.07.0-18.0 mg/dLCreatinine1.230.70-1.30 mg/dLEstimated GFR ( Diann>60>=60 mL/min/1.73m 2Estimated GFR (Non- Ame59>=60 mL/min/1.73m 2 BUN Creatinine Ratio13.0Lnrwkpz6.98.5-10.1 mg/dLPerforming Lab:see noteML - [facility] LBCBC AUTO DIFF Reviewed date:06/12/2024 09:24:51 PM Interpretation: Performing Lab: Notes/Report: [facility] ,White Blood Count6.94.0-11.0 10 3/uLRed Blood Count3.344.70-6.10 10 6/uL Dtvvqlkstq07.014.0-18.0 g/uHNeycgagtgt38.842.0-54.0 %Mean Corpuscular Tixphx05.2 80.0-94.0 fLMean Corpuscular Sabpxgxpfn37.925.9-34.0 pgMean Corpuscular HGB Conc 33.529.9-35.2 g/dLRed Cell Distribution Width14.711.0-15.0 %Platelet Sbhia061 150-450 10 3/uLMean Platelet Volume9.39.5-13.5 fLNeutrophils Percent Auto60.4 43.0-75.0 %Lymphocytes Percent Auto21.920.5-60.0 %Monocytes Percent Auto16.21.7- 12.0 %Eosinophils Percent Auto1.00.9-7.0 %Basophils Percent Auto0.10.2-2.0 % Immature Granulocytes Pct Auto0.40.0-0.5 %Neutrophils Absolute Auto4.21.4-6.5 10 3/uLLymphocytes Absolute Auto1.51.2-3.8 10 3/uLMonocytes Absolute Auto1.10.3-0.8 10 3/uLEosinophils Absolute Auto0.10.0-0.7 10 3/uLBasophils Absolute Auto0.00.0- 0.1 10 3/uLImmature Granulocytes Abs Auto0.030.00-0.03 10 3/uLPerforming Lab:see noteML - [facility] LBCT ABDOMEN WO or W CON Reviewed date:06/03/2024 08:25:19 PM Interpretation: Performing Lab: Notes/Report: Source Facility: [facility] [place] [address] [place] [address] CT Scan Report Signed Patient: PABLO BECKMAN MR#: [id number] : 1955 Acct:[id number] Age/Sex: 68 / M ADM Date: 06/03/24 Loc: CT Attending Dr: Lv Heard M.D. Ordering Physician: Lv Heard M.D. Date of Service: 06/03/24 Procedure(s): CT abdomen wo/w con Accession Number(s): [id number] cc: Lv Heard M.D. [place] [address] Patient Name: PABLO BECKMAN MRN: [id number] date: 1955 Sex: M Assigned Patient Location: CT Current Patient Location: CT Accession/Order Number: [id number] Exam Date: 06/03/2024 10:39 Report Date: 06/03/2024 [...] Renea Odom M.D.06/03/2024 10:58 AM Dictation Location: [place] [address] Electronically authenticated by: [id number] Y Date: 06/03/2024 10:58 Dictated By: Renea Odom M.D. Signed By: 06/03/24 1101 DD/ 1058 TD/TT: Mixer And Scaler:BERNARD trevin perf SPECT rest str Reviewed date:05/28/2024 08:42:41 PM Interpretation: Performing Lab: Notes/Report: Source Facility: [place] [address] [place] [address] Nuclear Medicine Report Signed Patient: PABLO BECKMAN MR#: [id number] : 1955 Acct:[id number] Age/Sex: 68 / M ADM Date: 05/28/24 Loc: [place] Attending Dr: Lv Heard M.D. Ordering Physician: Lv Heard M.D. Date of Service: 05/28/24 Procedure(s): NM trevin perf SPECT rest str Accession Number(s): [id number] cc: Lv Heard M.D. Patient Name: PABLO BECKMAN MR#: [id number] : 1955 Exam Date: 05/28/2024 Ordering Doctor: [...] M.D. on 05/28/2024 at 13:29 Approved by: Magadlena Stark M.D. on 05/28/2024 at 13:36 Dictated By: Magdalena Stark M.D. Signed By: 05/28/24 1337 DD/ 1336 TD/TT: Mixer And Scaler:Occult Blood* Reviewed date:05/09/2024 08:06:16 PM Interpretation: Performing Lab: Notes/Report: [facility] ,Occult BloodPositivePerforming Lab:see noteML - [facility] LBPSA Total+% Free Reviewed date:05/09/2024 08:06:16 PM Interpretation: Performing Lab: Notes/Report: [facility] ,Prostate Specific Ag<0.10.0-4.0 ng/mL Verified by repeat analysis Melquiades ECLIA methodology. According to the [employer], Serum PSA should decrease and [...] any other population of men. Performed at: [facility] [address] [id number] [employer] Supervisor: Jim Rossi PhD, Phone: [phone] Performing Lab:[facility] LBURIC ACID SERUM Reviewed date:05/08/2024 08:54:32 PM Interpretation: Performing Lab: Notes/Report: [facility] ,Uric Acid9.13.5-7.2 mg/dLPerforming Lab:see note - [facility] LB TSH Reviewed date:05/08/2024 08:54:32 PM Interpretation: Performing Lab: Notes/Report: [facility] ,Thyroid Stimulating Hormone0.5900.358-3.740 uIU/mLPerforming Lab:see note - [facility] LBT4 Reviewed date:05/08/2024 08:54:32 PM Interpretation: Performing Lab: Notes/Report: [facility] ,T4 Thyroxine5.904.50-12.10 ug/dLPerforming Lab:see noteML - [facility] LBPROF 14(COMP METB) Reviewed date:05/08/2024 08:54:32 PM Interpretation: Performing Lab: Notes/Report: [facility] ,Zjwkry869060-859 mmol/LPotassium3.93.5-5.1 mmol/BHremgqtr34421-662 mmol/LCarbon Boyvdfn58.721.0-32.0 mmol/LAnion Gap13.6Jzrsajr39437-613 mg/dLBlood Urea Xbpnopph99.07.0-18.0 mg/dLCreatinine1.200.70-1.30 mg/dLEstimated GFR ( Diann>60>=60 mL/min/1.73m 2Estimated GFR (Non- Mignon>60>=60 mL/min/1.73m 2BUN Creatinine Ratio18.1Hngetqk4.98.5-10.1 mg/dLBilirubin Total0.40.2-1.0 mg/dL Aspartate Amino Ajjftncxquc9717-04 U/LAlanine Oauoifnhccsbzfvt1806-61 U/L Alkaline Unkyifxdnas0020-021 U/LTotal Protein7.46.4-8.2 g/dLAlbumin Level3.43.4- 5.0 g/dLGlobulin4.0Albumin Globulin Ratio0.9Performing Lab:see note - [facility] LBLIPID PROFILE Reviewed date:05/08/2024 08:54:32 PM Interpretation: Performing Lab: Notes/Report: [facility] ,Lhwsaduahyltc77<=150 mg/eZRuhzjhboycm607<=200 mg/dLHDL Mbltbrcfcnt9196-87 mg/dL > or =60 mg/dl - LOW CARDIOVASCULAR RISK <40 mg/dl - HIGH CARDIOVASCULAR RISK LDL Cholesterol Jdxrewujxq36.8 <100 mg/dl OPTIMAL 100-129 mg/dl NEAR OR ABOVE OPTIMAL 130-159 mg/dl BORDERLINE HIGH 160-189 mg/dl HIGH >190 mg/dl VERY HIGH VLDL HTGQMOTHPYT54.2Chol HDL Ratio2.0 3.3 - 4.4 LOW RISK 4.4 - 7.1 AVERAGE RISK 7.1 - 11.0 MODERATE RISK >11.0 HIGH RISK Performing Lab:see noteML - [facility] LBINSULIN Reviewed date:05/09/2024 08:06:16 PM Interpretation: Performing Lab: Notes/Report: [facility] ,Obyuljf50.22.6-24.9 uIU/mL Performed at: - [facility] [id number] [employer] Supervisor: Jim Rossi PhD, Phone: [phone] Performing Lab:see noteLC - [facility] LBGLYCOHEMOGLOBIN A1C Reviewed date:05/08/2024 08:54:32 PM Interpretation: Performing Lab: Notes/Report: [facility] ,Glycohemoglobin A1C5.54.5-6.2 % ADA RECOMMENDED LIMIT 4.0 - 6.0 ADA THERAPEUTIC TARGET < 7.0 ACTION SUGGESTED > 7.0 Estimated Average Phayjqj419Euashxazlh Lab:see noteML - [facility] LB FREE T3 Reviewed date:05/08/2024 08:54:32 PM Interpretation: Performing Lab: Notes/Report: [facility] ,Free T31.482.18-3.98 pg/mLPerforming Lab:see note - [facility] LB CBC AUTO DIFF Reviewed date:05/08/2024 08:54:32 PM Interpretation: Performing Lab: Notes/Report: [facility] ,White Blood Count7.54.0-11.0 10 3/uLRed Blood Count3.204.70-6.10 10 6/uL Elejvpkoqv27.514.0-18.0 g/nAPljnigtxyi15.942.0-54.0 %Mean Corpuscular Xkfjcb78.7 80.0-94.0 fLMean Corpuscular Vjdtkzcxcs20.825.9-34.0 pgMean Corpuscular HGB Conc 32.929.9-35.2 g/dLRed Cell Distribution Width14.311.0-15.0 %Platelet Tqpea061 150-450 10 3/uLMean Platelet Volume9.19.5-13.5 fLNeutrophils Percent Auto71.9 43.0-75.0 %Lymphocytes Percent Auto16.320.5-60.0 %Monocytes Percent Auto11.01.7- 12.0 %Eosinophils Percent Auto0.00.9-7.0 %Basophils Percent Auto0.00.2-2.0 % Immature Granulocytes Pct Auto0.80.0-0.5 %Neutrophils Absolute Auto5.41.4-6.5 10 3/uLLymphocytes Absolute Auto1.21.2-3.8 10 3/uLMonocytes Absolute Auto0.80.3-0.8 10 3/uLEosinophils Absolute Auto0.00.0-0.7 10 3/uLBasophils Absolute Auto0.00.0- 0.1 10 3/uLImmature Granulocytes Abs Auto0.060.00-0.03 10 3/uLPerforming Lab:see noteML - [facility] LBXR chest 1V Reviewed date:04/21/2024 05:26:11 PM Interpretation: Performing Lab: Notes/Report: Source Facility: [place] [address] XRay Report Signed Patient: PABLO BECKMAN MR#: [id number] : 1955 Acct:[id number] Age/Sex: 68 / M ADM Date: 04/21/24 Loc: ER Attending Dr: Ordering Physician: Monae Henry M.D. Date of Service: 04/21/24 Procedure(s): XR chest 1V Accession Number(s): [id number] cc: Lv Heard M.D.; Monae Henry M.D. [place] [address] Patient Name: PABLO BECKMAN MRN: [id number] date: 1955 Sex: M Assigned Patient Location: ED.MAIN Current Patient Location: ED.MAIN Accession/Order Number: [id number] Exam Date: 04/21/2024 09:58 Report Date: 04/21/2024 [...] Fernandez M.D. Signed By: 04/21/24 1058 DD/ 55 TD/TT: Mixer And Scaler:ECG 12 lead Reviewed date:04/22/2024 08:03:33 PM Interpretation: Performing Lab: Notes/Report: Source Facility: [place] [address] [place] [address] Electrocardiograph Report Signed Patient: PABLO BECKMAN MR#: [id number] : 1955 Acct:[id number] Age/Sex: 68 / M ADM Date: 04/21/24 Loc: ER Attending Dr: Ordering Physician: Monae Henry M.D. Date of Service: 04/21/24 Procedure(s): ECG 12 lead Accession Number(s): [id number] cc: [facility] Test Date: 2024-04-21 Pat Name: PABLO BECKMAN Department: Room: - Gender: Male [employer]og[employer] Operator: : 1955 Requested By: LV HEARD Order Number: [id number] Reading MD: LV HEARD Measurements Intervals Baldwin Rate: 82 P: 22 OR: 138 QRS: 26 QRSD: 80 T: 25 [...] Heard M.D. Signed By: 04/22/24 0810 DD/ 5 TD/TT: Mixer And Scaler:SARS-CoV-2 Ag* Reviewed date:04/21/2024 10:20:03 AM Interpretation: Performing Lab: Notes/Report: [facility] ,SARS-CoV-2 AgNEGATIVENEGATIVE This test has not been [...] is revoked sooner. Performing Lab:see noteML - [facility] LBPROF CHEM 8 (BAS METB) Reviewed date:04/21/2024 10:20:03 AM Interpretation: Performing Lab: Notes/Report: [facility] ,Mrzzxn855512-912 mmol/LPotassium3.83.5-5.1 mmol/IOsimvvhe45003-247 mmol/LCarbon Bkpyenb91.621.0-32.0 mmol/LAnion Gap16.5Snwvvtn06833-920 mg/dLBlood Urea Peuvicea85.07.0-18.0 mg/dLCreatinine1.390.70-1.30 mg/dLEstimated GFR ( Diann>60>=60 mL/min/1.73m 2Estimated GFR (Non- Ame51>=60 mL/min/1.73m 2 BUN Creatinine Ratio15.8Tsysokd3.88.5-10.1 mg/dLPerforming Lab:see noteML - [facility] LBINFLUENZA A AND B AG Reviewed date:04/21/2024 10:20:03 AM Interpretation: Performing Lab: Notes/Report: [facility] ,Influenza Virus A AntigenPositive NOTE: Live attenuated [...] Performing Lab:see noteML - [facility] LBCBC AUTO DIFF Reviewed date:04/21/2024 10:20:03 AM Interpretation: Performing Lab: Notes/Report: [facility] ,White Blood Count5.64.0-11.0 10 3/uLRed Blood Count3.094.70-6.10 10 6/uL Qxtfxmbdry42.014.0-18.0 g/dTYfnpkqkdmd50.342.0-54.0 %Mean Corpuscular Ebzemr95.1 80.0-94.0 fLMean Corpuscular Rcllvfhpnm00.425.9-34.0 pgMean Corpuscular HGB Conc 33.029.9-35.2 g/dLRed Cell Distribution Width14.511.0-15.0 %Platelet Tawpw633 150-450 10 3/uLMean Platelet Volume9.19.5-13.5 fLNeutrophils Percent Auto47.9 43.0-75.0 %Lymphocytes Percent Auto28.720.5-60.0 %Monocytes Percent Auto20.91.7- 12.0 %Eosinophils Percent Auto2.10.9-7.0 %Basophils Percent Auto0.00.2-2.0 % Immature Granulocytes Pct Auto0.40.0-0.5 %Neutrophils Absolute Auto2.71.4-6.5 10 3/uLLymphocytes Absolute Auto1.61.2-3.8 10 3/uLMonocytes Absolute Auto1.20.3-0.8 10 3/uLEosinophils Absolute Auto0.10.0-0.7 10 3/uLBasophils Absolute Auto0.00.0- 0.1 10 3/uLImmature Granulocytes Abs Auto0.020.00-0.03 10 3/uLPerforming Lab:see noteML - [facility] LBCA echo doppler complete Reviewed date:08/02/2024 12:25:34 PM Interpretation: Performing Lab: Notes/Report: Source Facility: [facility] [place] [address] [address] Cardiology Report Signed Patient: PABLO BECKMAN MR#: [id number] : 1955 Acct:[id number] Age/Sex: 68 / M ADM Date: 08/02/24 Loc: CARD Attending Dr: MAMTA ARIAS APRN Ordering Physician: MAMTA ARIAS APRN Date of Service: 08/02/24 Procedure(s): CA echo doppler complete Accession Number(s): [id number] cc: Lv Heard M.D.; MAMTA ARIAS APRN Patient Name: PABLO BECKMAN MR#: [id number] : 1955 Exam Date: 08/02/2024 Ordering Doctor: MAMTA ARIAS BIOMETRICS HEAD ECHOCARDIOGRAM REPORT PROCEDURE: CA ECHO DOPPLER COMPLETE [...] Area (VTI): 2.74 cm2, 2.74 cm2 Deceleration Wise: 1.26 m/s2 Pressure Half-Time: 537.05 ms Peak [...] JT MILES Signed By: 08/02/2457 DD/ TD/TT: Mixer And Scaler: Reason For Referral Diagnosis 1 Hematuria (R31.9) Referral Organization [facility] Referring Provider First Name Gareth Referring Provider Last Name [facility] Referring Provider [facility] Referred Provider [facility] Referred Provider Specialty Neurology Referral Priority Routine Diagnosis 1 Renal mass, left (N2 8.89) Diagnosis 2 Hematuria (R31.9) Referral Organization [facility] Referring Provider First Name Gareth Referring Provider Last Name [facility] Referring Provider [facility] Referred Provider Francisco Medrano Referred Provider Specialty Urology Referral Priority Routine Diagnosis 1 Drug rash (L27.0) Referral Organization [facility] Referring Provider First Name Gareth Referring Provider Last Name [facility] Referring Provider [facility] Referred Provider Shirley Pfeiffer Referred Provider Specialty Dermatology Referral Priority Routine Medications Medication SIG (Take, Route, Frequency, Duration) Notes Start Date End Date Status Eliquis 5 MG take 1 tablet Oral twice daily; Duration: 90 days ActivetiZANidine HCl 4 MG2 tabs Orally qhs; Duration: 30 days5Active Clopidogrel Bisulfate 75 MG1 tablet Orally Once a dayActivehydrOXYzine HCl 25 MG 1 tablet as needed Orally qid; Duration: 10 days5ActiveCentrumActive Rosuvastatin Calcium 20 MG1 tablet Orally Once a dayActiveAspirin 81 81 MG1 tablet Orally Once a dayActiveProctozone-HC 2.5 %1 application Externally Twice a day with tip applicator; Duration: 30 days5ActiveMeclizine HCl 25 MG1 tablet as needed Orally Q 6 hours5ActiveLasix 20 MG1 tablet Orally Once a day5ActiveFerrous Sulfate 325 (65 Fe) MG1 tablet Orally BID; Duration: 90 daysActiveMetoprolol Tartrate 75 MG1 tablet with food Orally Twice a day; Duration: 90 days3Active Social History Tobacco Use: Social History Observation Description Date Details (start date - stop date) Former Smoker 04/10/1971 - 04/10/1992 Tobacco Use/Smoking Question Answer Notes Patient is a former smoker When did you start smoking?04/10/1971When did you stop smoking?04/10/1992How long has it been since you last smoked?> 10 yearsAdditional Findings: Tobacco Azi-DzaeQb-kjkzuxja cigarette smoker (10-19/day)Alcohol Screen (Audit-C) Question Answer Notes Did you have a drink containing alcohol in the p ast year? Yes How many drinks did you have on a typical day when you were drinking in the past year?1 or 2 drinks (0 point)How often did you have a drink containing alcohol in the past year?Weekly (3 points)Wbehdz0YpdmzvsuoxftvaIokexbnxCMQPZ-M (Standard) Question Answer Notes Did you have [...] Risk Notes Problem Paroxysmal atrial fi brillation (359699201) Paroxysmal atrial fibrillation (I48.0) ActiveconfirmedProblemHeart failure (59111688)Heart failure, unspecified (I50.9) ActiveconfirmedProblemMelena (1784848)Melena (K92.1)ActiveconfirmedProblem Osteoarthritis of knee (177998344)Osteoarthritis of knee, unspecified (M17.9) ActiveconfirmedProblemChest pain (14879398)Chest pain (R07.9)Activeconfirmed ProblemAtrial fibrillation (92515890)Atrial fibrillation (I48.91)Activeconfirmed ProblemHypertension (69446062)Hypertension (I10)ActiveconfirmedProblemAtrial fibrillation (disorder) (62484465)Afib (I48.91)ActiveconfirmedProblemVertigo (989043671)Vertigo (R42)ActiveconfirmedProblemMalignant tumor of prostate (952253664)Prostate cancer (C61)ActiveconfirmedProblemHematuria (41178211) Hematuria (R31.9)ActiveconfirmedProblemLumbar radiculopathy (521466182)Lumbar radiculopathy (M54.16)ActiveconfirmedProblemHemorrhage of rectum and anus (720483535)Rectal bleed (K62.5)ActiveconfirmedProblemAcquired spondylolisthesis (023598217)Lumbar spondylolysis (M43.06)ActiveconfirmedProblemLumbar radicular pain (2277332794)Lumbar radicular pain (M54.16)ActiveconfirmedProblemHistory of malignant neoplasm of prostate (294579654)H/O prostate cancer (Z85.46)Active confirmedProblemDiverticular disease of colon (409310908)Diverticula of colon (K57.30)ActiveconfirmedProblemCellulitis (330360556)Cellulitis of lower extremity (L03.119)ActiveconfirmedProblemDisorder of kidney and/or ureter (392330092)Renal mass, left (N28.89)ActiveconfirmedProblemPruritic disorders (091408908)Pruritic condition (L29.9)ActiveconfirmedProblemDrug rash (46990993) Drug rash (L27.0)ActiveconfirmedProblemSpinal stenosis of lumbar region (84305073)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)ActiveconfirmedProblem Chronic kidney disease stage 3A (disorder) (894642883)Chronic kidney disease, stage 3a (N18.31)ActiveconfirmedProblemAneurysm of ascending aorta (disorder) (282791653)Aneurysm of ascending aorta without rupture (I71.21)Activeconfirmed Vital Signs Blood pressure diastolic 82 mm Hg 03/17/2025 Korixb78 in03/20/2025lood pressure dzssitrd944 mm Hg03/17/20256111Hklbrl874.2 lbs 03/20/2025BMI32.22 kg/m203/20/2025 Procedures Procedure Date Ordered Date Performed Result Body Sit e CARDIO Stress Test - Cardiolite 05/07/2024 N/A Encounters Encounter Location Date Provider Diagnosis [facility] [address] [place] [address] 01/01/2025 Gareth Hoy Foraminal stenosis o f lumbar region M48.061 [facility] [address] [place] [address] 03/17/2025 Gareth Hoy Prostate cancer C61 ; Hypertension I10 ; Vertigo R42 and Edema R60.9 [facility] [address] [place] [address] 03/20/2025 Gareth Hoy Pruritic condition L 29.9 and Drug rash L27.0 [facility] [address] [place] [place] [address] 05/07/2024 Gareth Hoy Hypertension I10 ; Paroxysmal atrial fibrillation I48.0 and Chest pain R07.9 [facility] [address] [place] [address] 05/14/2024 Gareth Hoy Osteoarthritis of kn ee, unspecified M17.9 and Primary localized osteoarthritis of right knee M17.11 [facility] [address] [place] [address] 07/19/2024 Gareth Hoy Prostate cancer C61 [facility] [address] [place] [address] 11/13/2024 Gareth Hoy Heart failure, unspecified I50.9 ; Chronic kidney disease, stage 3a N18.31 and Lumbar radiculopathy M54.16 [facility] [address] [place] [place] [address] 04/22/2024 Gareth Hoy [facility] [place] [place] [address] 05/08/2024Doug [facility] [place] [place] [address]/30/2025Doug [facility] [place] [place] [address]/17/2025Doug HoyRenal mass, left N28.89[facility] [place] [address]/17/2025 Gareth [facility] [place] [place] [address]/Doug [facility] [facility] [place] [address]/Doug HoyHypertension O90NynckmoChildren[facility] [place] [place] [address]/Doug [facility] [facility] [place] [address]/ Gareth HoyHematuria R31.9BW[facility] [facility] [place] [address]/Doug HoyRenal mass, left N28.89 and Hematuria R31.9BWray [facility] [place] [place] [address] 07/05/2024Doug [facility] [place] [place] [address]/02/2025Doug HoyProstate cancer Q18MezroojWray [facility] [place] [place] [address]/Doug [facility] [facility] [id number]/ [facility] [facility] [place] [address]/02/2025Doug HoyEdema of right lower extremity R60.0[facility] [place] [place] [address]/Doug Hoy Assessments Encounter Date Diagnosis (ICD Code) Assessment Notes Treatment Notes Treatment Clinical Notes Section Notes 05/07/2024 Hypertension (ICD-10 - I10) 05/07/2024Paroxysmal atrial fibrillation (ICD-10 - I48.0)05/14/2024 Osteoarthritis of knee, unspecified (ICD-10 - M17.9)styeroid injections 02/04/2025Primary localized osteoarthritis of right knee (ICD-10 - M17.11) 07/19/2024Prostate cancer (ICD-10 - C61)11/13/2024Heart failure, unspecified (ICD-10 - I50.9)stabel on meds11/13/2024hronic kidney disease, stage 3a (ICD-10 - N18.31)reviewed labs - cont to stay tcsuumwbc11/24/2025Foraminal stenosis of lumbar region (ICD-10 - M48.061)03/17/2025Prostate cancer (ICD-10 - C61)Done with treatment - - had Pellets long time ago - PSA down to .03 - seeing radiation oncologist for folow ups - Prostate cancer in the recovering phase - no furthe treatmetn 0 ongong monitoring of labs03/17/2025Hypertension (ICD-10 - I10)03/20/2025Pruritic condition (ICD-10 - L29.9)03/20/2025Drug rash (ICD-10 - L27.0)05/27/2024Renal mass, left (ICD-10 - N28.89)05/28/2024Hypertension (ICD-10 - I10)06/03/2024Hematuria (ICD-10 - R31.9)06/04/2024Renal mass, left (ICD-10 - N28.89)06/04/2024Hematuria (ICD-10 - R31.9)07/19/2024Prostate cancer (ICD-10 - C61)03/20/2025Edema of right lower extremity (ICD-10 - R60.0)03/17/2025Vertigo (ICD-10 - R42)11/13/2024Lumbar radiculopathy (ICD-10 - M54.16)5Chest pain (ICD-10 - R07.9)03/17/2025Edema (ICD-10 - R60.9)11/13/2024OtherRecommended to rest and use a heating pad on the area. Take NSAIDs for pain as needed 01/01/2025OtherRecommended to rest and use a heating pad on the area. Take NSAIDs for pain as xytvwr3203/17/2025OtherRecommended to rest and use a heating pad on the area. Take NSAIDs for pain as needed Plan Of Treatment Pending Test Test Name Order Date CMP (COMPLETE METABOLIC PANEL) 4 HEMOGLOBIN A1C (GLYCO) 04/12/2023 HEMOGLOBIN A1C (GLYCO) 05/07/2024 INSULIN, TOTAL 05/07/2024 LIPID PANEL (CHOL/TRIG/HDL/LDL) 05/07/19 25 LIPID PANEL (CHOL/TRIG/HDL/LDL) 04/12/19 24 CBC WITH DIFF (EXP 02/2025) 04/12/2023 CBC WITH DIFF (02/2025) 05/07/2024 PSA, PROSTATE-SPECIFIC ANTIGEN 4 URIC ACID 05/07/2024 CARDIO Stress Test - Cardiolite 05/07/19 25 PSA-FREE AND TOTAL 05/07/2024 CT Kidney wo/w Cont * 05/27/2024 CBC W/AUTO DIFF 06/15/2023 CBC W/AUTO DIFF 12/08/2023 STOOL OCCULT BLOOD 05/07/2024 PROTIME 06/13/2023 PROTIME 12/08/2023 CT CHEST WO W CON 12/27/2022 MRI LSPINE WO CON 11/13/2024 US EMMA DOP LEG RT 03/17/2025 US EMMA DOP LEG RT 03/20/2025 THYROID PANEL (T4/TSH/FREE T3) CMP (COMP MET MILLARD) w/eGFR CKD-EPI 2024 Insurance Providers Payer Name Payer Address Payer Phone Subscriber Number Group Number Insured Name Patient Relationship to Insured Coverage Start Date Coverage End Date MMO ADVANTAGE CHOICE MEDICAR E HMO [address] [place] [address] [id number] Robert Beckmanelf - patient is the insured Medications Administered Medication Instructions Date of Administration Dosage Notes Dexamethasone, 4mg/mL mgKenalog-40020 mgKetorolac Wuzedjujqrea35/06/202560 mg Ketorolac Yvokqzgyjmrq93/24/202560 mgLidocaine HCl mLOrphenadrine Vzseura15 mgOrphenadrine Fmmyvxu60 mgTriamcinolone 40 mg/ml mgTriamcinolone 40 mg/ml mgTriamcinolone 40 mg/ml mg Medical (General) History Medical History History ICD Code Adenocarcinoma of prostate C61 Cataracts, bilateral H26.9 Thoracic aortic aneurysm, without ruptur e I71.2 COVID-19 U07.1 Diverticulosis K57.90 Gout M10.9 Hypertension I10 Osteoarthritis of knee, unspecified M17. 9 Prostatitis N41.9 Rectal bleeding K62.5 Obstructive sleep apnea G47.33 Umbilical hernia K42.9 Fracture of Fibula Shaft Surgical History Surgery Date(Month/Year) Right Broken Leg Torn Shoulder repair- Right Shoulderhernia repairVASECTOMYFinger tips smashed offcardiac cath06/19/24Hospitalization History Reason Date(Month/Year) Chest Pain 2022 back pain 03/03
--- OUTSIDE RECORDS SUMMARY | 2025-04-07 08:41 | XMS_ITS ---
Author Organization [facility] Address [address] [place] [address] Care Team Providers Care Tip Bander Name Role Phone Guillermo Heard MD Primary Care Provider [phone] Active Problems ProblemNoted DateDiagnosed DateAcquired /10/2025hest pain 07/18/2024Diverticular disease of colon07/18/20246008Ywgzmtozv11/10/2025Lumbar radicular pain07/18/2024Malignant tumor of qvzrgtra54/10/2025Osteoarthritis of knee07/18/2024Other specified disorders of kidney and fxbnkl0007/18/2024Kidney fpurix4907/18/20248321Jobdyc48/24/2025ile reflux /24/2025MI 28.0-28.9,adult06/03/2024PH (benign prostatic hyperplasia)06/03/2024ataract 06/03/2024hange in bowel jlizdf7406/03/20243354Mlrryozxsywcmu67/24/2025Dyspepsia 06/03/2024Gout06/03/2024Helicobacter pylori ab+06/03/2024Helicobacter pylori ueshqtlbh04/24/2025History of retinal bltgpjukav08/24/2025Iron deficiency anemia 06/03/2024Long term current use of alstmaqmdgmcl63/24/2025Macular puckering 06/03/20246267Unrutw12/24/2025Occult blood positive stool06/03/2024Paresthesia 06/03/2024Rectal /24/2025Sleep apnea06/03/20245137Mkmslj57/24/2025 Umbilical oqpqtd1706/03/2024Unintentional weight loss06/03/2024bnormal stress test06/03/2024DOE (dyspnea on exertion)06/03/2024Mixed deysznyjltypuu68/30/2024 Aneurysm of ascending aorta03/17/2021iastolic jleqaisbiqq19/08/2021Hypertensive bzyanhpz40/08/2021eft ventricular systolic nfypulabpkt13/08/2021aroxysmal atrial rxqdgfieigxz90/19/2021adiotherapy follow-up06/10/2014Personal history of prostate mnqycf9110/31/2013NSVT (nonsustained ventricular tachycardia)Coronary artery disease Current Treatment and Therapy Plans No current plan information found. Past Treatment and Therapy Plans No past plan information found. Lifetime Dose Tracking * ChemicalLifetime DoseAutomatic EntryManual EntryFluoro Time10.2 minutes0 mlzpuzx27.2 minutesAir Kerma1,363 mGy0 mGy1,363 mGyDose Area Mubnrlo113,097 mGy-cm20 mGy-pv4174,097 mGy-cm2
--- OUTSIDE RECORDS SUMMARY | 2025-04-07 08:41 | XMS_ITS | Clinical Summary ---
Author Organization [facility] Address [address] [place] [address] Care Team Providers Care Joiners Supervisor Name Role Phone Guillermo Heard MD Primary Care Provider [phone] Allergies No known active allergies Medications MedicationSigDispense [...] TAKE 1 TABLET(20 MG) BY MOUTH AT ATESKZV28/14/2025Active FeroSul 325 (65 Fe) MG tablet Take [...] all this for 7 days. 21 capsule /02/2025Expired cephalexin (Keflex) 500 MG capsule Indications:Cellulitis of right lower extremityTake 1 capsule (500 mg) by mouth in the morning and 1 capsule (500 mg) in the evening and 1 capsule(500 mg) before bedtime. Do all this for 7 days. 21 capsule 5105/25/2024Expired Encounters DateTypeDepartmentCare DajrSegggfwzquz06/08/2025Telephone [facility] [place] [place] [address] Christian Barton, DEB Antibiotic Clindamycin had allergic jbqsopufz46/04/2025 8:15 AM ESTAncillary Procedure [facility] [address] [place] [address] 03/13/2025 8:00 AM ESTOffice Visit [facility] [address] [facility] [address] [address] Christian Bartno NP Cellulitis of right lower extremity (Primary Dx); Right ankle pain, unspecified chronicity; Right leg pain; History of open reduction and internal fixation (ORIF) yxuvjcmty33/04/2025amboo flowsheet [facility] [address] [place] [address] Christian Barton NP 03/13/2025Travelfrom Last 3 Months Social History Tobacco UseTypesPacks/DayYears UsedDateSmoking Tobacco: FormerCigarettes Tobacco Cessation:Counseling Given: Not Answered Sex and Gender InformationValueDate RecordedSex Assigned at BirthNot on file Legal DhbQptf9306/22/2022 7:01 PM EDTGender IdentityNot on fileSexual Orientation Not on file Last Filed Vital Signs Vital SignReadingTime TakenCommentsBlood Pressure--Pulse--Temperature-- Respiratory Rate--Oxygen Saturation--Inhaled Oxygen Concentration--Zfzbbg40.3 kg (210 lb)03/13/2025 8:04 AM FAIRalseh774.7 cm (5' 8 )03/13/2025 8:04 AM ESTBody Mass Index31.9303/13/2025 8:04 AM EST Plan of Treatment Health MaintenanceDue DateLast DoneCommentsCT Elmobfjauthl12/13/1957FIT-DNA 1956FIT1955FOBT1955 0200Wgbwtyeqnokib57/13/1957Pneumococcal Vaccine: 65+ Years (2 of 2 - PCV20 or PCV21)Influenza Vaccine (#1)12/09/20242604Ishkqdusyff62, 10/17/2018, 09/11/2009 Colorectal Cancer Vgobyxrfk18/09/2032 Procedures Procedure NamePriorityDate/TimeAssociated DiagnosisCommentsXR TIBIA FIBULA 2 VIEWS ZQTQGAjxnsxc90/04/2025 8:11 AM EST Right leg pain from [...] Efraín Barton NPIMG XR PROCEDURES Final Result from Last 3 Months Insurance * Guarantor: Dillon Beckman TypeRelation to PatientDate of BirthPhone Billing AddressPersonal/GqfujoHfvl90/13/1956 [address] [address] Care Teams Team MemberRelationshipSpecialtyStart DateEnd Guillermo Heard MD [address] [place] [address] PCP - GeneralFamily Vikyinkj86/2/25
--- OUTSIDE RECORDS SUMMARY | 2025-04-07 08:41 | XMS_ITS | Clinical Summary ---
Author Organization [facility] Address [address] [place] [address] Care Team Providers Care Traffic Safety Administrator Name Role Phone Guillermo Heard MD Primary Care Provider Allergies No known active allergies Medications MedicationSigDispense [...] tablet /ctive Active Problems ProblemNoted DateDiagnosed DateAcquired iohmakmayydicbmuv79/10/2025hest pain 07/18/2024Diverticular disease of colon07/18/20247359Bqlkufusq11/10/2025Lumbar radicular pain07/18/2024Malignant tumor of zmbpjukv51/10/2025Osteoarthritis of knee07/18/2024Other specified disorders of kidney and npfeoa3607/18/2024Kidney vcmfoe1307/18/20244597Ylmama57/24/2025ile reflux srlivrblm39/24/2025MI 28.0-28.9,adult06/03/2024PH (benign prostatic hyperplasia)06/03/2024ataract 06/03/2024hange in bowel kaadcl3006/03/20242036Tjsfovgtvmnmce53/24/2025Dyspepsia 06/03/2024Gout06/03/2024Helicobacter pylori ab+06/03/2024Helicobacter pylori wesjssliy49/24/2025History of retinal xojpvcthqv95/24/2025Iron deficiency anemia 06/03/2024Long term current use of mxugdgwfflxfr39/24/2025Macular puckering 06/03/20241954Cvmqnr26/24/2025Occult blood positive stool06/03/2024Paresthesia 06/03/2024Rectal ojwviylzqi54/24/2025Sleep apnea06/03/20242096Cmvhcr48/24/2025 Umbilical gyhetm9306/03/2024Unintentional weight loss06/03/2024bnormal stress test06/03/2024DOE (dyspnea on exertion)06/03/2024Mixed heataagpamvchp71/30/2024 Aneurysm of ascending aorta03/17/2021iastolic paflrfceubc61/08/2021Hypertensive ceezcime07/08/2021Left ventricular systolic knffzzbtiao36/08/2021Paroxysmal atrial ybxijduqprgn35/19/2021Radiotherapy follow-up06/10/2014Personal history of prostate toymie0510/31/2013NSVT (nonsustained ventricular tachycardia)Coronary artery disease Encounters DateTypeDepartmentCare UvtvKswcmhssdqa09/12/2025Telephone [facility] [address] [place] [address] Caity Kaiser MA 01/22/2025 9:40 AM EDTOffice Visit [facility] [address] [place] [address] Anjel Corona MD Aneurysm of ascending aorta without rupture (Primary Dx); Paroxysmal atrial fibrillation (CMS/HCC)01/22/2025Orders Only [facility] [address] [place] [address] Maggie Viera MA Aneurysm of ascending aorta without rupture (Primary Dx)01/22/2025Orders Only [facility] [address] [place] [address] Maggie Viera MA Paroxysmal atrial fibrillation (CMS/HCC) (Primary Dx)from Last 3 Months Family History Medical HistoryRelationNameCommentsParkinsonismFatherStrokeMotherRelationName StatusCommentsFatherDeceasedMotherDeceasedSisterAlive Social History Tobacco UseTypesPacks/DayYears UsedDateSmoking Tobacco: FormerCigarettes Smokeless Tobacco: Never Tobacco Cessation:Counseling Given: Not Answered Alcohol UseStandard Drinks/WeekCommentsYes0 (1 standard drink = 0.6 oz pure alcohol)OCCASIONALUT Safety & EnvironmentAnswerDate RecordedFear of Current or Ex-PartnerNot on file06/01/2023Emotionally AbusedNot on file06/01/2023hysically AbusedNot on file06/01/2023Sexually AbusedNot on file4Physically or Sexually AbusedNot on file06/01/2023Sex and Gender InformationValueDate Recorded Sex Assigned at TgkixYhqs25/10/2025 11:07 AM EDTLegal XgsNuza6310/07/2021 12:40 AM EDTGender KncbhulcPqqa33/10/2025 11:07 AM EDTSexual OrientationHeterosexual or Ymjaxjsc25/10/2025 11:07 AM EDT Last Filed Vital Signs Vital SignReadingTime TakenCommentsBlood Taovxhbo795/8401/22/2025 9:38 AM EDT Akilg528601/22/2025 9:38 AM EDTTemperature--Respiratory Aywf044406/19/2024 3:45 PM EDTOxygen Sypbiotslr82%07/18/2024 10:28 AM EDTInhaled Oxygen Concentration-- Oyuyml73.5 kg (204 lb)01/22/2025 9:38 AM EPKAzsfdg028.7 cm (5' 8 )01/22/2025 9:38 AM EDTBody Mass Index31.021 9:38 AM EDT Plan of Treatment DateTypeDepartmentCare Team (Latest Contact Info)Zvodejytzfy10/31/2025 10:00 AM ESTOffice Visit [facility] [address] [place] [address] [place] [address] Anjel Marrero MD [address] [place] [address] Health MaintenanceDue DateLast DoneCommentsCT Pixmrchztoiq95/13/1957FIT-DNA 1956FIT1956FOBT1956Medicare Annual Wellness (AWV)1955 Njjxmhanoqmcy90/13/1957Depression Vdsovnodq12/13/1969Adult Rgxdvbu8610/20/1978 Zoster Vaccines (1 of 2)2006Fall Risk Fcpzxbfed43/13/2022neumococcal Vaccine: 50+ Years (2 of 2 - PPSV23, PCV20, or PCV21)/2COVID- 19 Vaccine (3 - 2024- season)504/, 07/09/2020Influenza Vaccine (#1)7116Ysxjdszvkyd66/09/129661/12/2021, 10/17/2018, 09/11/2009Colorectal Cancer Wrfuuwkst51/09/2032HIB VaccinesAged OutNo longer eligible based on patient's [...] Ellen Key Mr 3.50 X 20 - [id number] Implanted:Qty: 1 on 06/19/2024 by [facility] El[facility] StentLeft: [facility] [id number] / / [id number] Insurance * Guarantor: Dillon Beckman TypeRelation to PatientDate of BirthPhone Billing AddressPersonal/MnhzfrStqi64/13/1956 [address] [address] Care Teams Team MemberRelationshipSpecialtyStart DateEnd Guillermo Heard MD [address] [facility] [address] [address] [facility]12/11/21
--- OUTSIDE RECORDS SUMMARY | 2025-04-07 08:41 | XMS_ITS | Clinical Summary ---
Author Organization [facility] Address [address] [place] [address] Care Team Providers Care Image Processing Engineer Name Role Phone Guillermo Heard MD Primary Care Provider [phone] Allergies No known active allergies Medications MedicationSigDispense QuantityRefillsLast FilledStart DateEnd DateStatus Multivitamin capsule Take 1 capsule by mouth once daily.Active Active Problems ProblemNoted DateDiagnosed DateRadiotherapy follow-up06/10/2014Personal history of prostate qwcgyj4110/31/2013 Family History Medical HistoryRelationCommentsBreast CancerSisterRelationStatusCommentsSister Social History Tobacco UseTypesPacks/DayYears UsedDateSmoking Tobacco: FormerCigarettes1.510 06/11/1979 - 06/10/1989mokeless Tobacco: NeverAlcohol UseStandard Drinks/Week CommentsNot Asked0 (1 standard drink = 0.6 oz pure alcohol)PHQ-2AnswerDate RecordedPHQ-2 gdpws325rea Deprivation IndexAnswerDate RecordedNational Score (1-100), lower number is lower idwv192706/18/2024State Score (1-10), lower number is lower rxkh018Data from: https://www.neighborhoodatlas.medicine.[facility].edu/. Last address used for wq[address] 2725606/18/2024Sex and Gender InformationValueDate RecordedSex Assigned at BirthNot on fileLegal LlnEmeq02/02/2012 8:26 AM EST Gender IdentityNot on fileSexual OrientationNot on file Last Filed Vital Signs Vital SignReadingTime TakenCommentsBlood Hivzcwui172/7203/ 10:05 AM EDT Khysm316006/24/2020 10:05 AM DUSGtbvrbtmixl25.8 ??C (98.2 ??F)06/24/2020 10:05 AM EDTRespiratory Debu645706/24/2020 10:05 AM EDTOxygen Rkrjszlouk45%06/24/2020 10:05 AM EDTInhaled Oxygen Concentration--Rqlxft96.8 kg (209 lb)06/24/2020 10:05 AM EDTHeight--Body Mass Index-- Plan of Treatment DateTypeDepartmentCare Team (Latest Contact Info)Oldomrmkmhl81/11/2026 4:30 PM [facility]TC[facility] [address] [place] [address] [place] [address] Quinton Gonzáles MD [address] [place] [address] [place] [address] 1 year follow up - PSA at [facility] DateLast DoneComments Abdominal Aortic Aneurysm Wyrhlxxld08/13/1957Anxiety Outaswksu13/13/1975 Depression Kwclozbdb82/13/1975Hepatitis C Aprtpvkrn28/13/1975DTaP,Tdap,Td Vaccine (1 - Tdap)10/21/1975Lipid Gmhlhjjtt27/13/1992CT Hljacayqrmfd52/13/2002 Cologuard (FIT-DNA)10/20/20019301Hzmeneqkhxg59/13/2002Colorectal Cancer Screening 2001Diabetes Zydoavpux28/13/2002Fecal Occult Blood2001Sigmoidoscopy 2001Shingrix Vaccine (1 of 2)2006Pneumococcal Vaccine: 50+ (2 of 2 - PCV20 or PCV21)dvance Directive Qtlqumomce88/01/2025 Medicare Advantage Annual Wellness Visit04/10/2024ovid-19 Vaccine (3 - season)504/, 07/09/2020Influenza Vaccine (#1)2024Prostate Cancer Screening Mhwryfheci86, 06/13/2023, 06/02/2022, Additional history existsRSV Vaccine (1 - 1-dose 75+ series)10/21/2031 Procedures Procedure NamePriorityDate/TimeAssociated DiagnosisCommentsPSA (OUTSIDE)Routine 06/12/2024 from Last 3 Months or Most Recently Relevant to Health Maintenance Results * PSA (OUTSIDE) (06/12/2024)ComponentValueRef RangeTest MethodAnalysis Time Performed AtPathologist SignaturePSA.<0.13Specimen (Source)Anatomical Location / LateralityCollection Method / VolumeCollection TimeReceived TimeBLOOD SPECIMEN / Hzvxvwe7806/12/2024 Narrative Authorizing ProviderResult TypeResult StatusCcf ProviderLABORATORYFinal Result from Last 3 Months or Most Recently Relevant to Health Maintenance Insurance [facility] Address: [facility] [address] [place] [address] Care Teams Team MemberRelationshipSpecialtyStart DateEnd Date Guillermo Heard MD PCP - Kqocsuw01/17/09
--- OUTSIDE RECORDS SUMMARY | 2025-04-07 08:43 | XMS_ITS | CCD ---
Author Organization [facility] CliniSynm Care Team Providers Care Textiles Printer Name Role Phone MAMTA STEPHENSON Attending Unavailable SELF, REFERRED Primary Care Unavailable SELF, REFERRED Referring Unavailable MAMTA STEPHENSON Admitting Unavailable Guillermo Chance Primary Care Physician [phone] Guillermo Chance MD Primary Care Provider [phone] CURRY Admitting Unavailable [...] Attending UnavailGuillermo Martini MD Primary Care Provider [phone] Quinton WILLIAMSON Attending Unavailable GUILLERMO CHANCE Referring Unavailable GUILLERMO CHANCE Primary Care Unavailable ALGHOTHANI, MOHAMAOlga Admitting Unavailable ALGHOTHANI, MOHAMAD Attending Unavailable MAMTA STEPHENSON Attending Unavailable ALGHOTHANI, MOHUSHA Attending Unavailable JASWINDER BUCKNER Attending Unavailable ALGHOTHANI, MOHAMAD Referring Unavailable ALGHOTHANI, MOHAMAD Referring Unavailable Allergies Allergy ClassificationReported Allergen(s)Allergy TypeDate of OnsetReaction(s) Facility (1 source)No Known Medication Allergies; Translations: [No Known Medication Allergies]Propensity to adverse reactions (disorder)[facility] Repository Medications Current Medications MedicationDrug Class(es)DatesSig (Normalized)Sig (Original)apixaban 5 mg oral tablet (3 sources)Factor Xa InhibitorStart: 29-33-4285mxeu 1 tablet by mouth twice dailyEliquis 5 mg oral tablet 5 mg = 1 tab(s), Oral, BID, Refills(s) 0 Start Date: 03/04/22 Status: Orderedaspirin 81 mg delayed release oral tablet (3 sources)Platelet Aggregation Inhibitor, Nonsteroidal Anti-inflammatory Drug Start: 04-13-7166ymus 1 tablet by mouth once dailyaspirin 81 mg Oral EC Tab 81 mg = 1 tab(s), Oral, Daily, Refills(s) 0 Start Date: 03/08/22 Status: Ordered ciprofloxacin 500 mg oral tablet (2 sources)Quinolone AntimicrobialStart: 00-25-9555Dgzko 500 mg Tab See Instructions, 1 tab po night prior to cysto. 1 tab po following cysto., # 2 tab (s), Refills(s) 0, Pharmacy: [id number], 173, cm, 06/10/24 12:48:00 EST, Height/Length Dosing, 100, kg, 06/10/24 12:48:00 EST, Weight Dosing Start Date: 06/10/24 Status: Ordereddiclofenac sodium 75 mg delayed release oral tablet (1 source)Nonsteroidal Anti-inflammatory DrugStart: 74-55-7557fdid 1 tablet by mouth twice dailydiclofenac sodium 75 mg Oral EC Tab 75 mg = 1 tab(s), Oral, BID, Refills(s) 0 Start Date: 03/04/22 Status: Orderedferrous sulfate 325 mg delayed release oral tablet (3 sources)Start: 16-07-8815vwwa 1 tablet by mouth twice dailyferrous sulfate 325 mg oral enteric coated tablet 325 mg = 1 tab(s), Oral, BID, Refills(s) 0 Start Date: 03/04/22 Status: Orderedfurosemide 20 mg oral tablet (2 sources)Loop DiureticStart: 99-08-3688pemq 1 tablet by mouth once dailyLasix 20 mg Tab 20 mg = 1 tab(s), Oral, Daily Start Date: 06/10/24 Status: Ordered lansoprazole 30 mg delayed release oral capsule (1 source)Proton Pump InhibitorStart: 76-46-2664pezj 1 capsule by mouth once dailylansoprazole 30 mg Cap-DR 30 mg = 1 cap(s), Oral, Daily, Refills(s) 0 Start Date: 03/29/22 Status: Orderedlisinopril 10 mg oral tablet (1 source)Angiotensin Converting Enzyme InhibitorStart: 59-30-7937mcwi 1 tablet by mouth once dailylisinopril 10 mg Tab 10 mg = 1 tab(s), Oral, Daily, Refills(s) 0 Start Date: 03/04/22 Status: Orderedmeclizine hydrochloride 25 mg oral tablet (2 sources)AntiemeticStart: 75-49-3933kbag 1 tablet by mouth once dailymeclizine 25 mg Tab 25 mg = 1 tab(s), Oral, Daily Start Date: 06/10/24 Status: Ordered metoprolol tartrate 75 mg oral tablet (3 sources)beta-Adrenergic BlockerStart: 79-34-2587xeut 1 tablet by mouth twice dailymetoprolol tartrate [...] mouth once daily.Multivitamins and Minerals (3 sources)Start: 90-16-7312Qxniaikjxelpk and Minerals See Instructions, Refill(s) 0 Start Date: 10/02/18 Status: Orderedrosuvastatin calcium 20 mg oral tablet (3 sources)HMG-CoA Reductase InhibitorStart: 13-05-6916igio 1 tablet by mouth once dailyrosuvastatin 20 mg Tab 20 mg = 1 tab(s), Oral, Daily, Refills(s) 0 Start Date: 03/08/22 Status: Orderedsucralfate 1000 mg oral tablet (1 source)Aluminum ComplexStart: 15-80-1006hufk 1 tablet by mouth four times dailyCarafate 1 gram Tab 1 gm = 1 tab(s), Oral, QID, # 120 tab(s), Refills(s) 3, Pharmacy: [facility] #[id number], 177.8, cm, 03/08/22 15:41:00 EST, Height/Length Dosing, 91, kg, 03/08/22 15:41:00 EST, Weight Dosing Start Date: 03/08/22 Status: Ordered Completed/Discontinued Medications MedicationDrug Class(es)DatesSig (Normalized)Sig (Original)Acetaminophen (5 sources) End: 06-35-1942AAFGFJXSRBRHB (TYLENOL EXTRA STRENGTH ORAL) Take by mouth. 06/18/2024 DiscontinuedACETAMINOPHEN (TYLENOL EXTRA STRENGTH ORAL) Take by mouth. 0 ActiveComment on above:Take by mouth.celecoxib 200 mg oral capsule (5 sources)Nonsteroidal Anti-inflammatory DrugStart: 06-19-2018 End: 58-95-6347xsybnyghv (CELEBREX) 200 mg capsule twice daily. 06/19/2018 06/18/2024 DiscontinuedComment on above:twice daily. ibuprofen 200 mg oral tablet (5 sources)Nonsteroidal Anti-inflammatory Drug End: 59-24-3201ycdl 1 tablet by mouth every six hours as neededibuprofen (MOTRIN) 200 mg tablet Take 200 mg by mouth every 6 hours as needed. 06/18/2024 DiscontinuedComment on above:Take 200 mg by mouth every 6 hours as needed. tamsulosin hydrochloride 0.4 mg oral capsule (5 sources)alpha-Adrenergic BlockerStart: 06-27-2018 End: 22-25-0152ixhw 1 capsule by mouth once daily at bedtimetamsulosin ER (FLOMAX) 0.4 mg cap Take 1 capsule by mouth daily at bedtime. 30 capsule 11 06/27/2018 06/18/2024 DiscontinuedComment on above:Take 1 capsule by mouth daily at bedtime.TURMERIC, BULK, MISC (5 sources) End: 18-61-8480DPHBYXIB, BULK, MISC 06/18/2024 DiscontinuedTURMERIC, BULK, MISC valACYclovir 1000 mg oral tablet (5 sources)Herpesvirus Nucleoside Analog DNA Polymerase Inhibitor, Herpes Simplex Virus Nucleoside Analog DNA Polymerase Inhibitor, Herpes Zoster Virus Nucleoside Analog DNA Polymerase InhibitorStart: 06-09-2018 End: 30-13-7111zxtIRCzlhuol (VALTREX) 1 gram tab 06/09/2018 06/18/2024 Discontinued Problems Active Problems Problem ClassificationProblemDateDocumented DateEpisodic/ChronicAbdominal hernia (3 sources)Umbilical mvxisu48-09-0004XrhldoooDqarqs; peripheral; and visceral artery aneurysms (7 sources)Aneurysm of thoracic aorta; Translations: [Thoracic aortic aneurysm, without rupture]Onset: 765508-70-9970FuvtxnxQfsijlik of urinary tract (3 sources)Kidney stone; Translations: [Calculus of kidney]Onset: 06-10-2024 64-98-7107FrfihilnOmnpdk of prostate (3 sources)Malignant tumor of prostate; Translations: [Malignant neoplasm of prostate]ChronicCancer of prostate (17 sources)History of malignant neoplasm of prostate; Translations: [Personal history of malignant neoplasm ofprostate]Onset: 833406-74-8577Zenvfczm Cardiac dysrhythmias (6 sources)Atrial fibrillation; Translations: [Unspecified atrial fibrillation] Onset: 116516-76-6022MbprzfgAgywwkdy (3 sources)Ggfubbql48-38-6183XcjblmdZibwgxmh atherosclerosis and other heart disease (7 sources)Coronary arteriosclerosis; Translations: [Atherosclerotic heart disease of eek coronary artery without angina pectoris]Onset: 12-24-2021 77-02-7384SlrgbawPigaptxffn and other anemia (3 sources)Bsczkv76-04-2261VgajqqbvGiaggqxguk and other anemia (3 sources)Iron deficiency -73-1912QlhthoozHzjujoadk of lipid metabolism (2 sources)Hyperlipidemia, unspecified; Translations: [Hyperlipidemia, unspecified]Onset: 94-90-8651JvtcuzsRzwubmpprvmlmh and diverticulitis (5 sources)Diverticula of intestine; Translations: [Diverticulosis of intestine, part unspecified, without perforation or abscess without bleeding]Onset: 99-62-9624ZhrfepvDrsytjomm hypertension (7 sources)Hypertensive disorder; Translations: [Essential (primary) hypertension]Onset: 418266-50-8764JsbbpjaRaxyndwwa and duodenitis (1 source)Unspecified chronic gastritis without bleeding; Translations: [UNS CHRONIC GASTRITIS W/O BLEEDING]Onset: 43-98-2475AnnphzjRndyuqmos and duodenitis (7 sources)Gastritis; Translations: [Other gastritis without bleeding]Onset: 76-58-0723RuisapcyYcsiukhhkqshlxym hemorrhage (10 sources)Melena; Translations: [Rectal hemorrhage]Onset: EpisodicGenitourinary symptoms and ill-defined conditions (1 source)Blood in urine; Translations: [Gross hematuria]Onset: 06-10-2024 EpisodicGout and other crystal arthropathies (3 sources)Sqla49-53-8462CpjtfbcMrmokcjuzjz of prostate (3 sources)Benign prostatic gtjyijoewfe08-25-2762UtovbycJvukvlfkghviu and screening for infectious disease (3 sources)Raised Helicobacter pylori njhemjlw90-09-5555YnejqeokBnfsdxfwixy deficiencies (1 source)Vitamin D deficiency, unspecified; Translations: [VITAMIN D DEFICIENCY UNSPECIFIED]Onset: 91-24-8356MpsgrnmLwcfeulpyxjabs (1 source)Unspecified osteoarthritis, unspecified site; Translations: [UNSPECIFIED OSTEOARTHRITIS UNS SITE]Onset: 88-74-9615AwuhjedOohqr aftercare (3 sources)Long-term current use of rjhiqyfnmesvn92-03-3655SmcrarmgBvuiz diseases of kidney and ureters (2 sources)Cyst of -49-6624KcfmbgyaGibqh diseases of kidney and ureters (1 source)Acquired renal cyst without neoplastic change; Translations: [Cyst of kidney, acquired]Onset: 09-11-0197VqikefvpKywgn disorders of stomach and duodenum (3 sources)Xdvibkijrso65-74-1974BezitsoqXjfxz gastrointestinal disorders (3 sources)Alteration in bowel rsvbyfogkrf59-36-6064OalsdmbnRraqe gastrointestinal disorders (3 sources)Occult blood in osoese77-89-5560SnupvcljAwcdn nervous system disorders (3 sources)H/O: retinal kzmyqnlbpg61-54-3542TgotkvzaCnzeu nervous system disorders (3 sources)Hinvpdcjpcb39-24-2998HladvdskXvgtz nutritional; endocrine; and metabolic disorders (3 sources)Overweight in adulthood with body mass index of 25 or more but less than 6414-04-3326KnddbimoWlxwe nutritional; endocrine; and metabolic disorders (3 sources)Unintentional weight uyus20-59-5989ZoqrhmqkPiayxayk codes; unclassified (3 sources)Sleep gfhyn96-28-9321EnoklwyTbjvjobg codes; unclassified (1 source)Sleep apnea, unspecified; Translations: [SLEEP APNEA UNSPECIFIED] Onset: 97-24-5728SqkclnbGdzcfri detachments; defects; vascular occlusion; and retinopathy (3 sources)Epiretinal luiounct76-80-9102AbqabyxQfysmdamv-bfghqki disorders (4 sources)Smoker; Translations: [Nicotine dependence, cigarettes, uncomplicated]Onset: 961515-22-7292WeneziwKgftusyhlqcg (1 source)CONTACT W/AND (SUSP) EXPOS COVID-19; Translations: [CONTACT W/AND (SUSP) EXPOS COVID-19]Onset: 98-96-8575Zgbvfrxlnncn (1 source)PERSONAL HISTORY OF COVID-19; Translations: [PERSONAL HISTORY OF COVID-19]Onset: 69-29-7967Xmtbcrwhnqye (1 source)Aneurysm of the ascending aorta, without rupture; Translations: [Aneurysm of the ascending aorta, without rupture]Onset: 12-11-2021 Past or Other Problems Problem ClassificationProblemDateDocumented DateEpisodic/ChronicDeficiency and other anemia (4 sources)Iron deficiency anemia, unspecified; Translations: [IRON DEFICIENCY ANEMIA UNSPECIFIED]Onset: 83-67-2656WihmogzcOvufdflgca and other anemia (1 source)Anemia, unspecified; Translations: [ANEMIA UNSPECIFIED]Onset: 19-70-4130GbtbdkmpHcfvcwsz mellitus without complication (1 source)Other abnormal glucose; Translations: [OTHER ABNORMAL GLUCOSE]Onset: 97-70-6555BpfqcfmfGlhfb and electrolyte disorders (1 source)Volume depletion, unspecified; Translations: [VOLUME DEPLETION UNSPECIFIED]Onset: 17-14-0816QsbnhmjkBotmbxn and fatigue (4 sources)Other fatigue; Translations: [OTHER FATIGUE]Onset: 14-67-8926Zlbrlprw Nonspecific chest pain (5 sources)Chest pain, unspecified; Translations: [Other chest pain]Onset: 34-59-5612ImbpsoeeZsglo aftercare (6 sources)Radiotherapy follow-up; Translations: [Encounter for follow-up examination after completed treatment for conditions other than malignant neoplasm]Onset: 931380-48-7030FsxcsozaRewft aftercare (1 source)senior care (current) use of anticoagulants; Translations: [EXCAVATOR OPERATOR CURRNT USE ANTICOAGULANTS]Onset: 84-28-5880TajttszrFjiac aftercare (1 source)senior care (current) use of aspirin; Translations: [SNF CURRENT USE OF ASPIRIN]Onset: 02-25-7963DznhhpliEmodw aftercare (1 source)Other group home (current) drug therapy; Translations: [OTH EXCAVATOR OPERATOR CURRENT DRUG THERAPY]Onset: 08-12-4658FhybxavdTgzkn circulatory disease (1 source)Hypotension, unspecified; Translations: [HYPOTENSION UNSPECIFIED] Onset: 50-02-3874EydsufmaAhnkq diseases of kidney and ureters (1 source)Disorder of kidney and ureter, unspecified; Translations: [DISORDER KIDNEY AND URETER UNS]Onset: 79-60-4027UjrskaqvMhjkz gastrointestinal disorders (1 source)Diarrhea, unspecified; Translations: [DIARRHEA UNSPECIFIED]Onset: 41-36-1613QajjqosdNwlcz lower respiratory disease (1 source)Acute respiratory distress; Translations: [ACUTE RESPIRATORY DISTRESS] Onset: 40-19-8278UtveomccSuter lower respiratory disease (1 source)Personal history of pneumonia (recurrent); Translations: [PERSONAL HX OF PNEUMONIA RECURRENT]Onset: 27-87-7298ForbowwnYmlmt lower respiratory disease (2 sources)Other forms of dyspnea; Translations: [Other forms of dyspnea]Onset: 13-64-0904KiywllpeRaqzz nutritional; endocrine; and metabolic disorders (4 sources)Abnormal weight loss; Translations: [ABNORMAL WEIGHT LOSS]Onset: 10-17-0701LlyiicniNgrla screening for suspected conditions (not mental disorders or infectious disease) (4 sources)Encounter for screening for malignant neoplasm of rectum; Translations: [Other specified abnormal findings of blood chemistry]Onset: 63-85-1731YjvpwfuxPrauzjxjo and history of mental health and substance abuse codes (1 source)Personal history of nicotine dependence; Translations: [PERSONAL HISTORY OF NICOTINE DEPEND]Onset: 26-80-0762EbzqdgjvVoqshvkgqqab (1 source)Aneurysm of the ascending aorta, without rupture; Translations: [Aneurysm of the ascending aorta, without rupture]Onset: 01-22-2025 Results Test NameValueInterpretationReference RangeFacilityOffice Visiton 01-22-2025 Follow-up [id number] Pablo Beckman 1955 M Date Provider Department Center 01/22/2025 245-JASWINDER BUCKNER [facility] Family History Problem Relation Age of Onset Stroke Mother Parkinsonism Father Family Status - Relation Status Age at Mother Father Sister Alive Level of Service:63182 RI OFFICE/OUTPATIENT ESTABLISHED LOW MDM 20 MIN Reason for Visit and Comments: Follow-up [784900] - Patient is here today for a 6 month follow up appointment. Patient denies chest pain, leg swelling, racing heart/palpitations.Complains of SOB/ANDERSON, bleeding/bruising/discoloration, fatigue if he over works himself. Aneurysm of ascending aorta [Other] Hypertension [458736] Left ventricular systolic dysfunction [Other] Atrial Fibrillation [80] NSVT [Other] Coronary Artery Disease [187] Hyperlipidemia [182]NormalParkview Health36on 68-15-804234Pg can take 2 tablets in the AM instead, follow-up BMP in 1-2 weeks. [facility]36on 82-66-578437Cbbt, higher than goal of <130/90. We will see how his BP responds to increase in lasix. Follow-up BP check in 2 weeks please and thank you![place] [address]on 68-67-679710Zn can do that instead, follow-up BMP in 1-2 weeks after the increase. ThanksMer[facility] Hospital Follow-Upon [id number] Pablo Beckman 1955 M Date Provider Department Center 07/18/2024 MAMTA EGAN Family History Problem Relation Age of Onset Stroke Mother Parkinsonism Father Family Status - Relation Status Age at Mother Father Sister Alive Level of Service:75504 RI OFFICE/OUTPATIENT ESTABLISHED MOD MDM 30 MIN Reason for Visit and Comments: Coronary Artery Disease [187] Hypertension [189698] Hyperlipidemia [182][facility]ana HospitalTelephoneon [id number] Pablo Beckman 1955 M Date Provider Department Center 07/18/2024 HEBER SIDDIQUI Family History Problem Relation Age of Onset Stroke Mother Parkinsonism Father Family Status - Relation Status Age at Mother Father Sister AliveNoalUniMercy Health St. Elizabeth Boardman HospitalCNPNon 21-10-0200XPXG Telephone (SUDHAKARA) PABLO BECKAMN ([id number]) 1955 M Date Time Provider Department 06/20/24 Quinton WILLIAMSON During your visit today, we recorded the following information about you: Josefina Ring RN 06/20/2024 9:58 AM Signed Message Received: 2 days ago Quinton Williamson MD P [facility] Rad Nurse Froilan; Josefina Mulligan One year with psa [facility] [place] 06/20/2024 11:07 AM Signed Appointment scheduled in 1 year, will need to fax PSA order to [facility] when available. Josefina Ring RN 06/20/2024 11:16 AM Signed GAYLE- please sign order. Josefina Ring, Kitty Garvey 06/24/2024 12:59 PM Signed Pablo is scheduled for his 1 year follow up on 06/18/24 at 4:30. His lab order has been faxed to [facility]. Kitty Valle PSS Allergies As of Date: 06/20/2024 (No Known Allergies) Date Reviewed: 06/24/2020 Reviewed by: Felecia Benites (Christopher)CHRISTOPHER - Fully Assessed Reason for Visit: Future Appointment [256] Primary Visit Diagnosis:Personal history of prostate cancer [Z85.46] Order(s):PROSTATE-SPECIFIC ANTIGEN DIAGNOSTIC [SQPSA] Order #: [id number] FUTURE Prescriptions as of 06/24/2024 - Multivitamin capsule Take 1 capsule by mouth once daily. Problem List As Of Date 06/20/2024 Noted Resolved Personal history of prostate cancer [Z85.46] 10/31/2013 Radiotherapy follow-up [Z09] 06/10/2014 Encounter Status:Closed by JOSEFINA RING on 06/24/24[facility] 59-46-7127MNKR Attestation signed by Alexi Medina MD at 06/30/2024 8:33 PM Agree with fellow's note as documented. Alexi Medina MD [place] [facility] Patient: Pablo Beckman Procedure Information Date/Time: 06/19/24 1030 Procedure: Coronary angiography (Bilateral) Location: [facility]OTTOM 3 / [facility] VASCULAR [facility] (Cath) Providers: Alexi Medina MD Clinical information reviewed: [facility] Physical Exam Airway Mallampati: III Neck ROM: full Cardiovascular Rhythm: regular Rate: normal Dental Pulmonary Breath sounds clear to auscultation Abdominal (+) obese Anesthesia Plan ASA 3 other (Moderate Sedation) Anesthetic plan and risks discussed with patient. Use of blood products discussed with patient who consented to blood products. Additional Equipment RequestsNormalUniversity of Lake Granbury Medical CenterHPon 24-45-1246XL Attestation signed by Alexi Medina MD at [...] past medical history of Aneurysm, Atrial fibrillation ([facility]), Coronary artery disease, Diastolic dysfunction, Hyperlipidemia, Hypertension, Left ventricular systolic dysfunction, and NSVT (nonsustained ventricular tachycardia) ([facility]). Surgical History He has a past surgical [...] Assessment/Plan Abnormal stress test Paroxysmal atrial fibrillation VCS-qyq-dpditdxlwdx [moderate coronary artery disease of OM1 and distal LAD] on cath 2020 Hypertension Aortic aneurysm-stable at 4.2 cm CTA chest -All prior tests have been reviewed. -Patient is scheduled for a coronary angiogram today. -Further recommendations post procedure.[facility]rbana HospitalNURSNOTEon 88-20-5361MALAMKIIZA educated pt on d/c instructions. This included: [...] of unit with all of belongings.[facility]ana HospitalUrine Cytology ([facility])on 30-68-5339Kttcxqimbwa exam Cytology (U) [Interp]Diagnosis InfoInvalid Interpretation [facility] Comment on above:Result Comment: A:Urine,Urine:Voided Interpretation - Adequate cellularity for evaluation. CPT 76266 MicroScopic Description - Adequacy - Gross Description Site ID:A color Bright Yellow fixative Alcohol Specimen designated Urine received in alcohol preservative and labeled with the patient???s name, consists of 110ml clear bright yellow fluid. Electronically signed by : on: 06/13/2024 14:03:40Performed By: #### [id number] #### [facility] [address], [place] [address]BAM (OUTSIDE)on 33-59-0619Kunvtcsox ClinicUrine Cytology ([facility])on 91-85-6944UA Method of ExtractionVoidedBrown Memorial Hospital Comment on above:Performed By: #### [id number] #### [facility] [address] [place] [address] [id number] Number of Julp0Ronqffm Interpretation CodeAshtabula County Medical CenterComment on above:Performed By: #### [id number] #### [facility] [address] [place] [address] [id number] SpecimenUrineBrown Memorial HospitalComment on above:Performed By: #### [id number] #### [facility] [address] [place] [id number] Type of ServiceTechnical OnlyBrown Memorial HospitalComment on above:Performed By: #### [id number] #### [facility] [address] [place] [address] 76[address]Adfxfbx Office/Clinic Noteon 99-64-0207Pfyooqm Office/Clinic NoteUrology Office/Clinic Note Chief Complaint New [...] cysto., # 2 tab(s), Refills(s) 0, Pharmacy: [id number], 173, cm, 06/10/24 12:48:00 EST, Height/Length Dosing, 100, kg, 06/10/24 12:48:00 EST, Weight Dosing E&M of New Patient Moderate 45-59 Min 19731 Urnls Dip Stick Auto w/o Microscopy POC 51899 2. H/O prostate cancer (Z85.46: Personal history of malignant neoplasm of prostate) Hx of prostate CA, tx'd w radium seeds 10/10/13. Follows with Dr. Williamson annually. PSA 06/13/23 - <0.13 05/08/24 - <0.1 Ordered: E&M of New Patient Moderate 45-59 Min 58094 3. Kidney stones (N20.0: Calculus of kidney) CT 06/03/24 - There are punctate bilateral renal calculi. There are no ureteral stones in the field of view. Ordered: E&M of New Patient Moderate 45-59 Min 93424 4. Renal cyst (N28.1: Cyst of kidney, acquired) Advised pt small cysts do not require monitoring. Follow-up With When Contact Information [facility] [place] [address] Business (1) Additional Instructions: our infectious diseases physician will be contacting you for follow-up Patient Education Hematuria, Adult Problem List/Past Medical History Ongoing Anemia Atrial fibrillation Bile reflux gastritis BMI 28.0-28.9,adult BPH (benign prostatic hyperplasia) Cataract Change in bowel habits Coronary arteriosclerosis Diverticulosis Dyspepsia Gout H/O prostate cancer Helicobacter pylori ab+ Helicobacter pylori gastritis History of retinal detachment HTN (hypertension) Hypertensive disorder Iron deficiency anemia Kidney stones senior care current use of anticoagulant Macular puckering Melena Occult blood positive stool Paresthesia RB (rectal bleeding) Rectal bleeding Renal cyst Sleep apnea (more content not included)...NormalAshtabula County Medical CenterComment on above: Result Comment: Electronically Signed By: WALLACE WEI PA-C.eber\Date and Time Signed: 06/10/2512:21 ESTOffice Visiton 92-57-7127Ixoebp-up [id number] Pablo Beckman 1955 M Date Provider Department Center 06/03/2024 3848-ALEXI MEDINA [facility] Family History Problem Relation Age of Onset Stroke Mother Family Status - Relation Status Age at Mother Level of Service:68124 [place] OFFICE/OUTPATIENT ESTABLISHED MOD MDM 30 MINPemiscot Memorial Health Systemsal Parkview HealthCovid-19 PCR (CVDTB)on 60-04-0793QRUQ-CoV-2 (COVID-19) RNA ISIDRO+probe Ql (Unsp spec)Not detectedNormalNOT DETECTEDThe [facility] HospitalComment on above:Result Comment: This test is not yet approved or cleared by the [place] FDA. When there are no FDA-approved or cleared tests available, and other criteria are met, FDA can make tests available under an emergency access mechanism called an Emergency Use Authorization (EUA). The EUA for this test is supported by the Automobile Technician of Health and Human Service's (HHS's) [...] #### TSH, T7, LIPA, EMILY, CMP #### [facility] [address] [place] [address] Dr. Emely Frazier AUTO DIFFon 74-34-0732VIER #0.0 103/ulNormal0.0-0.1The Pike Community Hospitalment on above:Performed By: #### TSH, T7, LIPA, EMILY, CMP #### [facility] [address] [address] [address] Emely AdrianBasophils/100 WBC (Bld)0.1 %Critically low0.2-2.0The [facility] Reserve HospitalComment on above:Performed By: #### TSH, T7, LIPA, EMILY, CMP #### [facility] [address] [place] [address] Dr. Emely HullO #0.2 103/ulNormal0.0-0.7The [facility] HospitalComment on above: Performed By: #### TSH, T7, LIPA, EMILY, CMP #### [facility] [address] [place] [address] Dr. Emely Hullosinophils/100 WBC (Bld)3.2 %Normal0.9-7.0[facility] Comment on above:Performed By: #### TSH, T7, LIPA, EMILY, CMP #### [facility] [address] [place] [address] Dr. Emely Hullrythrocyte distribution width (RBC) [Ratio]15.8 %Critically high 11.0-15.0The [facility] on above:Performed By: #### TSH, T7, LIPA, EMILY, CMP #### [facility] [address] [place] [address] Dr. Emeyl AdrianHematocrit (Bld) [Volume fraction]26.6 %Critically low42.0-54.0 The [facility] HospitalComment on above:Performed By: #### TSH, T7, LIPA, EMILY, CMP #### [facility] [address] [place] [address] Dr. Emely AdrianHemoglobin (Bld) [Mass/Vol]9.0 g/dLCritically low14.0-18.0The [facility] HospitalComment on above:Performed By: #### TSH, T7, LIPA, EMILY, CMP #### [facility] [address] [address] [address] Emely Casiano #0.05 10e3/ulCritically high0.00-0.03The [facility] Comment on above:Performed By: #### TSH, T7, LIPA, EMILY, CMP #### [facility] [address] [place] [address] Dr. Emely Casiano %0.7 %Critically high0.0-0.5The [facility] HospitalComment on above:Performed By: #### TSH, T7, LIPA, EMILY, CMP #### [facility] [address] [place] [address] Dr. Emely Petit #1.8 103/ulNormal1.2-3.8The [facility] HospitalComment on above:Performed By: #### TSH, T7, LIPA, EMILY, CMP #### [facility] [address] [place] [address] Dr. Emely Canashocytes/100 WBC (Bld)24.2 %Ayabdy26.5-60.0The [facility] HospitalComment on above:Performed By: #### TSH, T7, LIPA, EMILY, CMP #### [facility] [address] [place] [address] Dr. Emely MichelleUAL DIFF REQNONormalThe [facility] HospitalComment on above: Performed By: #### TSH, T7, LIPA, EMILY, CMP #### [facility] [address] [place] [address] Dr. Emely Constantino (RBC) [Entitic mass]32.7 ujBvrrja87.9-34.0The [facility] HospitalComment on above:Performed By: #### TSH, T7, LIPA, EMILY, CMP #### [facility] [address] [place] [address] Dr. Emely Constantino (RBC) [Mass/Vol]33.8 g/iTPtryto05.9-35.2The [facility] HospitalComment on above:Performed By: #### TSH, T7, LIPA, EMILY, CMP #### [facility] [address] [place] [address] Dr. Emely Smith (RBC) [Entitic vol]96.7 fLCritically high80.0-94.0The [facility] HospitalComment on above:Performed By: #### TSH, T7, LIPA, EMILY, CMP #### [facility] [address] [place] [address] Dr. Emely Zamarripa #1.3 103/ulCritically high0.3-0.8The [facility] Comment on above:Performed By: #### TSH, T7, LIPA, EMILY, CMP #### [facility] [address] [place] [address] Dr. Emely Ellisocytes/100 WBC (Bld)18.0 %Critically high1.7-12.0The [facility] HospitalComment on above:Performed By: #### TSH, T7, LIPA, EMILY, CMP #### [facility] [address] [place] [address] Dr. Emely Del Real #4.0 103/ulNormal1.4-6.5The [facility] HospitalComment on above:Performed By: #### TSH, T7, LIPA, EMILY, CMP #### [facility] [address] [place] [address] Dr. Emely Maddenutrophils/100 WBC (Bld)53.8 %Rlwskw27.0-75.0The [facility] HospitalComment on above:Performed By: #### TSH, T7, LIPA, EMILY, CMP #### [facility] [address] [place] [address] Dr. Emely Weller mean volume (Bld) [Entitic vol]8.7 fLCritically low 9.5-13.5The [facility] HospitalComment on above:Performed By: #### TSH, T7, LIPA, EMILY, CMP #### [facility] [address] [place] [address] Dr. Emely AdrianPLT320 103/mtVhoubw209-321Yyq [facility] HospitalComment on above: Performed By: #### TSH, T7, LIPA, EMILY, CMP #### [facility] [address] [place] [address] Dr. Emely AdrianRBC2.75 106/ulCritically low4.70-6.10The [facility] on above:Performed By: #### TSH, T7, LIPA, EMILY, CMP #### [facility] [address] [place] [address] Dr. Emely AdrianWBC7.5 103/ulNormal4.0-11.0The [facility] HospitalComment on above: Performed By: #### TSH, T7, LIPA, EMILY, CMP #### [facility] [address] [place] [address] Dr. Emely AdrianLACTATE/LACTIC ACIDon 96-68-2197Mgavysp [Moles/Vol]0.7 mmol/L Normal0.4-1.9The [facility] Hospitalment on above:Performed By: #### TSH, T7, LIPA, EMILY, CMP #### [facility] [address] [place] [address] Dr. Emely AdrianLIPASEon 21-61-7375Cccdzt [Catalytic activity/Vol]386.0 U/LNormal 73.0-393.0The [facility] Hospitalment on above:Performed By: #### CBC #### [facility] [address] [place] [address] Dr. Emely AdrianPROF 14(COMP METB)on 37-45-8540Owdnqbj [Mass/Vol]2.9 g/dL Critically low3.4-5.0The [facility] HospitalComment on above:Performed By: #### CMP #### [facility] [address] [place] [address] Dr. Emely AdrianAlbumin/Globulin [Mass ratio]0.7 {ratio}NormalThe [facility] Hospitalment on above:Performed By: #### CMP #### [facility] [address] [place] [address] Dr. Emely AdrianALP [Catalytic activity/Vol]43 U/LCritically kjc47-812Zuh [facility] HospitalComment on above:Performed By: #### CMP #### [facility] [address] [address] [address] Emely MorenoT [Catalytic activity/Vol]23 U/BNmkzfb32-15Xkh [facility] HospitalComment on above:Performed By: #### CMP #### [facility] [address] [address] [address] Emely Barreraon gap [Moles/Vol]13.4 mmol/LNormalThe [facility] Comment on above:Performed By: #### CMP #### [facility] [address] [address] [address] Emely AdrianAST [Catalytic activity/Vol]21 U/XNrogvp72-60Npf [facility] HospitalComment on above:Performed By: #### CMP #### [facility] [address] [address] [address] Emely AdrianBilirubin [Mass/Vol]0.4 mg/dLNormal0.2-1.0The [facility] Comment on above:Performed By: #### CMP #### [facility] [address] [address] [address] Emely AdrianCalcium [Mass/Vol]8.3 mg/dLCritically low8.5-10.1The [facility] HospitalComment on above:Performed By: #### CMP #### [facility] [address] [address] [address] Emely AdrianChloride [Moles/Vol]104 mmol/NSpadzv75-478Vvz [facility] Comment on above:Performed By: #### CMP #### [facility] [address] [address] [address] Emely AdrianCO2 [Moles/Vol]22.9 mmol/OQqxrzl85.0-32.0The [facility] Comment on above:Performed By: #### CMP #### [facility] [address] [address] [address] Emely AdrianCreatinine [Mass/Vol]1.80 mg/dLCritically high0.70-1.30The [facility] HospitalComment on above:Performed By: #### CMP #### [facility] [address] [address] [address] Emely HullGFR-AF ONZFTPBB21 mL/min/1.85m8Chmltmawxb low>=60The [facility] HospitalComment on above:Performed By: #### CMP #### [facility] [address] [address] [address] Emely HullGFR-NON AF ZQMQWIVH83 mL/min/1.93c6Xthvlhboia low>=60The [facility] HospitalComment on above:Performed By: #### CMP #### [facility] [address] [address] [address] Emely AdrianGlobulin (S) [Mass/Vol]4.3 g/dLNormalThe [facility] HospitalComment on above:Performed By: #### CMP #### [facility] [address] [address] [address] Emely AdrianGlucose [Mass/Vol]105 mg/xOAqvjyr43-336WwiSt. Rita'S Hospital Comment on above:Performed By: #### CMP #### [facility] [address] [address] [address] Emely AdrianPotassium [Moles/Vol]4.3 mmol/LNormal3.5-5.1The [facility] Comment on above:Performed By: #### CMP #### [facility] [address] [address] [address] Emely AdrianProtein [Mass/Vol]7.2 g/dLNormal6.4-8.2The [facility] Comment on above:Performed By: #### CMP #### [facility] [address] [address] [address] Emely AdrianSodium [Moles/Vol]136 mmol/YLoqmqx950-200Ium [facility] Comment on above:Performed By: #### CMP #### [facility] [address] [address] [address] Emely AdrianUrea nitrogen [Mass/Vol]35.0 mg/dLCritically high7.0-18.0The [facility] on above:Performed By: #### CMP #### [facility] [address] [place] [address] Dr. Emely Buckley nitrogen/Creatinine [Mass ratio]19.4 mg/mgNoKettering Health Dayton on above:Performed By: #### CMP #### [facility] [address] [place] [address] Dr. Emely AdrianPROTIMEon 25-53-6476ZKY Coag (PPP) [Relative time]1.12 {INR} NormalThe [facility] on above:Performed By: #### PTT, PT #### [facility] [address] [place] [address] Dr. Emely Garcia GUIDELINESSEE BELOWTrinity Health System East CampusComascension borgess hospital on above:Result Comment: DESIRED INR: 2.0 - 3.0 CONDITIONS NOT LISTED BELOW 2.5 - 3.5 FOR PROSTHETIC HEART VALVE REPLACEMENT 2.5 - 3.5 RECURRENT THROMBOSIS Performed By: #### PTT, PT #### [facility] [address] [place] [address] Dr. Emely AdrianPT Coag (PPP) [Time]12.0 sCritically high9.0-11.6The [facility] on above:Performed By: #### PTT, PT #### [facility] [address] [place] [address] Dr. Emely TylerTon 82-37-5607gJCT Coag (Bld) [Time]32.1 pFlqdia53.3-36.2The [facility] on above:Performed By: #### PTT, PT #### [facility] [address] [place] [address] Dr. Emely Pulido, HIGH SENSITIVITYon 75-07-7173YMKCXW62.0 pg/mLNormal 4.0-76.1The [facility] on above:Result Comment: CUT-OFF POINTS HAVE BEEN ESTABLISHED BASED ON THE FOURTH UNIVERSAL DEFINITIONS OF MYOCARDIAL INFARCTION. THE UPPER REFERENCE LIMIT (URL) OF TROPONIN, DEFINED THE 99TH PERCENTILE OF cTnI DISTRIBUTION IN A REFERENCE POPULATION, HAS BEEN CONFIRMED THE DECISION THRESHOLD FOR GA DIAGNOSIS.Performed By: #### TSH, T7, LIPA, EMILY, CMP #### [facility] [address] [address] [address] Emely AdrianTYPE AND SCREENon 05-37-9038GMOB AND SCREENNegativeNoOhioHealth Riverside Methodist HospitalComment on above:Performed By: #### TSH, T7, LIPA, EMILY, CMP #### [facility] [address] [address] [address] Emely AdrianXR CHEST 1 Von [id number] CHEST 1 VEXAM: Portable chest REASON FOR EXAM: Shortness of breath. TECHNIQUE: A portable frontal view of the chest was obtained. COMPARISON: 10/27/2021. FINDINGS: The lungs are well-inflated and clear. The heart and mediastinum are normal. There is no mass or pathologic adenopathy. Osseous structures are normal. IMPRESSION: No acute cardiopulmonary process. Electronically authenticated by: PATRICIO ANTON Date: 2022-03-09 10:17NoOhioHealth Riverside Methodist HospitalCA 19-9on [id number] 19-94 U/mLNormal0-35St. [facility]'S HospitalComment on above:Result Comment: [employer] Electrochemiluminescence Immunoassay (ECLIA) . Values obtained with different assay methods or kits cannot be used interchangeably. Results cannot be interpreted as absolute evidence of the presence or absence of malignant disease.Performed By: #### TSH, T7, LIPA, EMILY, CMP #### [facility] [address] [address] [address] Emely Flores 26-28-4032WHU3.9 ng/mLNormal0.0-4.7The [facility] Comment on above:Result Comment: Nonsmokers <3.9 Smokers <5.6 . [employer] Electrochemiluminescence Immunoassay (ECLIA) . Values obtained with different assay methods or kits cannot be used interchangeably. Results cannot be interpreted as absolute evidence of the presence or absence of malignant disease.Performed By: #### TSH, T7, LIPA, EMILY, CMP #### [facility] [address] [address] [address] Emely AdrianH PYLORI ANTIBODY IGGon 02-26-2022H. PYLORI IGG ABS1.19 Index ValueCritically high0.00-0.79The [facility] HospitalComment on above:Result Comment: Negative <0.80 Equivocal 0.80 - 0.89 Positive >0.89Performed By: #### CBC #### [facility] [address] [place] [address] Dr. Emely AdrianAMYLASEon 29-73-2738Ykbhjvz [Catalytic activity/Vol]118 U/L Critically ntbj78-235Nks [facility] HospitalComment on above:Performed By: #### TSH, T7, LIPA, EMILY, CMP #### [facility] [address] [place] [address] Dr. Emely Frazier AUTO DIFFon [id number] #0.0 103/ulNormal0.0-0.1The [facility] HospitalComment on above:Performed By: #### TSH, T7, LIPA, EMILY, CMP #### [facility] [address] [place] [address] Dr. Emely AdrianBasophils/100 WBC (Bld)0.2 %Normal0.2-2.0[facility] Comment on above:Performed By: #### TSH, T7, LIPA, EMILY, CMP #### [facility] [address] [place] [address] Dr. Emely Espinoza #0.1 103/ulNormal0.0-0.7The [facility] HospitalComment on above: Performed By: #### TSH, T7, LIPA, EMILY, CMP #### [facility] [address] [place] [address] Dr. Emely Hullosinophils/100 WBC (Bld)2.8 %Normal0.9-7.0The [facility] Comment on above:Performed By: #### TSH, T7, LIPA, EMILY, CMP #### [facility] [address] [place] [address] Dr. Emely Hullrythrocyte distribution width (RBC) [Ratio]15.6 %Critically high 11.0-15.0The [facility] HospitalComment on above:Performed By: #### TSH, T7, LIPA, EMILY, CMP #### [facility] [address] [place] [address] Dr. Emely AdrianHematocrit (Bld) [Volume fraction]28.9 %Critically low42.0-54.0 The [facility] HospitalComment on above:Performed By: #### TSH, T7, LIPA, EMILY, CMP #### [facility] [address] [place] [address] Dr. Emely AdrianHemoglobin (Bld) [Mass/Vol]9.5 g/dLCritically low14.0-18.0The [facility] HospitalComment on above:Performed By: #### TSH, T7, LIPA, EMILY, CMP #### [facility] [address] [place] [address] Dr. Emely Casiano #0.04 10e3/ulCritically high0.00-0.03The [facility] Comment on above:Performed By: #### TSH, T7, LIPA, EMILY, CMP #### [facility] [address] [place] [address] Dr. Emely Casiano %0.9 %Critically high0.0-0.5The [facility] HospitalComment on above:Performed By: #### TSH, T7, LIPA, EMILY, CMP #### [facility] [address] [place] [address] Dr. Emely Petit #1.3 103/ulNormal1.2-3.8The [facility] HospitalComment on above:Performed By: #### TSH, T7, LIPA, EMILY, CMP #### [facility] [address] [place] [address] Dr. Emely Canashocytes/100 WBC (Bld)29.6 %Wgonug25.5-60.0The [facility] HospitalComment on above:Performed By: #### TSH, T7, LIPA, EMILY, CMP #### [facility] [address] [place] [address] Dr. Emely MichelleUAL DIFF REQNONormalThe [facility] HospitalComment on above: Performed By: #### TSH, T7, LIPA, EMILY, CMP #### [facility] [address] [place] [address] Dr. Emely Constantino (RBC) [Entitic mass]32.1 sqSyfdkn25.9-34.0The [facility] HospitalComment on above:Performed By: #### TSH, T7, LIPA, EMILY, CMP #### [facility] [address] [place] [address] Dr. Emely AdrianSUNY [facility] (RBC) [Mass/Vol]32.9 g/xROunejm91.9-35.2The [facility] HospitalComment on above:Performed By: #### TSH, T7, LIPA, EMILY, CMP #### [facility] [address] [place] [address] Dr. Emely Constantino (RBC) [Entitic vol]97.6 fLCritically high80.0-94.0The [facility] Hospitalment on above:Performed By: #### TSH, T7, LIPA, EMILY, CMP #### [facility] [address] [place] [address] Dr. Emely Zamarripa #0.8 103/ulNormal0.3-0.8The [facility] HospitalComment on above:Performed By: #### TSH, T7, LIPA, EMILY, CMP #### [facility] [address] [place] [address] Dr. Emely Ellisocytes/100 WBC (Bld)17.2 %Critically high1.7-12.0The [facility] HospitalComment on above:Performed By: #### TSH, T7, LIPA, EMILY, CMP #### [facility] [address] [place] [address] Dr. Emely Del Real #2.2 103/ulNormal1.4-6.5The [facility] HospitalComment on above:Performed By: #### TSH, T7, LIPA, EMILY, CMP #### [facility] [address] [place] [address] Dr. Emely Maddenutrophils/100 WBC (Bld)49.3 %Aalqfc82.0-75.0The [facility] Hospitalment on above:Performed By: #### TSH, T7, LIPA, EMILY, CMP #### [facility] [address] [place] [address] Dr. Emely Weller mean volume (Bld) [Entitic vol]9.2 fLCritically low 9.5-13.5The [facility] HospitalComment on above:Performed By: #### TSH, T7, LIPA, EMILY, CMP #### [facility] [address] [place] [address] Dr. Emely AdrianPLT259 103/gsZthztf437-270Inp [facility] on above: Performed By: #### TSH, T7, LIPA, EMILY, CMP #### [facility] [address] [place] [address] Dr. Emely AdrianRBC2.96 106/ulCritically low4.70-6.10The [facility] on above:Performed By: #### TSH, T7, LIPA, EMILY, CMP #### [facility] [address] [place] [address] Dr. Emely AdrianWBC4.4 103/ulNormal4.0-11.0The [facility] HospitalComascension borg[facility] hospital on above: Performed By: #### TSH, T7, LIPA, EMILY, CMP #### [facility] [address] [place] [address] Dr. Emely Romero THYROXINE INDEX T7on 33-75-6146CIT8.56Awqkcg7.30-4.50The [facility] on above:Performed By: #### TSH, T7, LIPA, EMILY, CMP #### [facility] [address] [place] [address] Dr. Emely AdrianT3U34.0 %Jvwxwf99.0-40.0The [facility] Hospitalment on above: Performed By: #### TSH, T7, LIPA, EMILY, CMP #### [facility] [address] [place] [address] Dr. Emely AdrianT4 [Mass/Vol]5.30 ug/dLNormal4.50-12.10The [facility] Comment on above:Performed By: #### TSH, T7, LIPA, EMILY, CMP #### [facility] [address] [address] [address] Emely Marcum PANEL (PCR)on 50-48-0493Rqrygtzday F 40/41Not detectedNormal NOT DETECTEDThe [facility] HospitalComment on above:Performed By: #### GIPANEL #### [facility] [address] [address] [address] Emely AdrianAstrovirusNot detectedNormalNOT DETECTEDThe [facility] Comment on above:Performed By: #### GIPANEL #### [facility] [address] [address] [address] Emely Dahl. Diff toxin A/BNot detectedNormalNOT DETECTEDThe [facility] HospitalComment on above:Performed By: #### GIPANEL #### [facility] [address] [address] [address] Emely HainespylobacterNot detectedNormalNOT DETECTEDThe [facility] Comment on above:Performed By: #### GIPANEL #### [facility] [address] [address] [address] Emely GoodeyptosporidiumNot detectedNormalNOT DETECTEDThe [facility] HospitalComment on above:Performed By: #### GIPANEL #### [facility] [address] [address] [address] Emely Crockett. CayetanensisNot detectedNormalNOT DETECTEDThe [facility] HospitalComment on above:Performed By: #### GIPANEL #### [facility] [address] [address] [address] Emely De La Vega Coli W859Lnm ApplicableNormalNot ApplicableThe [facility] HospitalComment on above:Performed By: #### GIPANEL #### [facility] [address] [address] [address] Emely De La Vega histolyticaNot detectedNormalNOT DETECTEDSt. Rita'S Hospital Comment on above:Performed By: #### GIPANEL #### [facility] [address] [address] [address] Emely Tripathi detectedNormalNOT DETECTEDThe [facility] HospitalComment on above:Performed By: #### GIPANEL #### [facility] [address] [address] [address] Emely Horne detectedNormalNOT DETECTEDThe [facility] HospitalComment on above:Performed By: #### GIPANEL #### [facility] [address] [address] [address] Emely Beckett detectedNormalNOT DETECTEDThe [facility] HospitalComment on above:Performed By: #### GIPANEL #### [facility] [address] [address] [address] Emely Hall detectedNormalNOT DETECTEDThe [facility] HospitalComment on above:Performed By: #### GIPANEL #### [facility] [address] [address] [address] Emely Perry LambliaNot detectedNormalNOT DETECTEDThe [facility] Comment on above:Performed By: #### GIPANEL #### [facility] [address] [address] [address] [facility] Horta [facility] HospitalComment on above:Performed By: #### GIPANEL #### [facility] [address] [address] [address] Emely Cummings MARY HEADERGI PANEL [facility] Comment on above:Performed By: #### GIPANEL #### [facility] [address] [address] [address] Emely Sanches ECOLIGI PANEL DIARRHEAGENIC E.COLI / SHIGELLATrinity Health System East CampusComment on above:Performed By: #### GIPANEL #### [facility] [address] [address] [address] Emely Sanches INFOSEE [facility] Medical CenterComment on above: Result Comment: EAEC- Enteroaggregative E. Coli EPEC- Enteropathogenic E. Coli ETEC- Enterotoxigenic E. Coli lt/st STEC- Shigella-like toxin-producing E. Coli stx1/stx2 EIEC- Shigella/Enteroinvasive E. ColiPerformed By: #### HARVEYANEL #### [facility] [address] [place] [address] Dr. Emely Sanches PARASITESGI PANEL [facility] Comment on above:Performed By: #### HARVEYANEL #### [facility] [address] [address] [address] Emely Sanches VIRUSGI PANEL VIRUSESTrinity Health System East CampusComment on above:Performed By: #### LÓPEZL #### [facility] [address] [place] [address] Dr. Emely Perearovirus GI/GIINot detectedNormalNOT DETECTEDThe [facility] HospitalComment on above:Performed By: #### LÓPEZL #### [facility] [address] [place] [address] Dr. Emely Polanco. ShigelloidesNot detectedNormalNOT DETECTEDThe [facility] HospitalComment on above:Performed By: #### LÓPEZL #### [facility] [address] [place] [address] Dr. Emely De Andaavirus ANot detectedNormalNOT DETECTEDSt. [facility]'S Hospital Comment on above:Performed By: #### LÓPEZL #### [facility] [address] [place] [address] Dr. Emely AdrianSalmonellaNot detectedNormalNOT DETECTEDSt. Rita'S Hospital Comment on above:Performed By: #### LÓPEZL #### [facility] [address] [place] [address] Dr. Emely AdrianSapovirusNot detectedNormalNOT DETECTEDSt. Rita'S Hospital Comment on above:Performed By: #### LÓPEZL #### [facility] [address] [place] [address] Dr. Emely AdrianSTECNot detectedNormalNOT DETECTEDThe [facility] HospitalComment on above:Performed By: #### LÓPEZL #### [facility] [address] [address] [address] Emely MejiaioNot detectedNormalNOT DETECTEDThe [facility] HospitalComment on above:Performed By: #### GIPANEL #### [facility] [address] [place] [address] Dr. Emely Ford CholeraNot detectedNormalNOT DETECTEDThe [facility] Comment on above:Performed By: #### GIPANEL #### [facility] [address] [place] [address] [address] Emely Bobo. EnterocoliticaNot detectedNormalNOT DETECTEDThe [facility] HospitalComment on above:Performed By: #### GIPANEL #### [facility] [address] [place] [address] Dr. Emely AdrianGLYCOHEMOGLOBIN A1Con 05-37-8646LFE RECOMMENDATIONSEE BELOWNormal The [facility] HospitalComment on above:Result Comment: ADA RECOMMENDED LIMIT 4.0 - 6.0 ADA THERAPEUTIC TARGET < 7.0 ACTION SUGGESTED > 7.0Performed By: #### TSH, T7, LIPA, EMILY, CMP #### [facility] [address] [place] [address] Dr. Emely AdrianGlucose [Mass/Vol]120 mg/dLNormalThe [facility] HospitalComment on above:Performed By: #### TSH, T7, LIPA, EMILY, CMP #### [facility] [address] [place] [address] [address] Emely AdrianHbA1c (Bld) [Mass fraction]5.8 %Normal4.5-6.2The [facility] HospitalComment on above:Performed By: #### TSH, T7, LIPA, EMILY, CMP #### [facility] [address] [place] [address] Dr. Emely Jeffrey 26-42-8074Ftci [Mass/Vol]55.0 ug/dLCritically low 65.0-175.0The [facility] HospitalComment on above:Performed By: #### CBC #### [facility] [address] [place] [address] Dr. Emely CrowASEjarrett 36-37-7732Lplego [Catalytic activity/Vol]671.0 U/L Critically high73.0-393.0The [facility] HospitalComment on above:Performed By: #### TSH, T7, LIPA, EMILY, CMP #### [facility] [address] [place] [address] [address] Emely Robbins BLD IMMUNO SCREENon 47-81-2649UCPXYA BLOODPositiveAbnormal NEGATIVEThe [facility] HospitalComment on above:Performed By: #### TSH, T7, LIPA, EMILY, CMP #### [facility] [address] [place] [address] Dr. Emely AdrianPROF 14(COMP METB)on 97-78-3004Iwmrubf [Mass/Vol]3.0 g/dL Critically low3.4-5.0The [facility] HospitalComment on above:Performed By: #### TSH, T7, LIPA, EMILY, CMP #### [facility] [address] [place] [address] Dr. Emely AdrianAlbumin/Globulin [Mass ratio]0.8 {ratio}NormalThe [facility] HospitalComment on above:Performed By: #### TSH, T7, LIPA, EMILY, CMP #### [facility] [address] [place] [address] Dr. Emely Ballesteros [Catalytic activity/Vol]58 U/PTccfci46-536Iqa [facility] HospitalComment on above:Performed By: #### TSH, T7, LIPA, EMILY, CMP #### [facility] [address] [place] [address] Dr. Emely Carmichael [Catalytic activity/Vol]25 U/UBenktd60-66Vnc [facility] Hospitalment on above:Performed By: #### TSH, T7, LIPA, EMILY, CMP #### [facility] [address] [place] [address] Dr. Emely Patel gap [Moles/Vol]12.1 mmol/LNormalThe [facility] Comment on above:Performed By: #### TSH, T7, LIPA, EMILY, CMP #### [facility] [address] [place] [address] Dr. Emely AdrianAST [Catalytic activity/Vol]20 U/PWiljur23-41Iut [facility] HospitalComment on above:Performed By: #### TSH, T7, LIPA, EMILY, CMP #### [facility] [address] [place] [address] Dr. Emely AdrianBilirubin [Mass/Vol]0.2 mg/dLNormal0.2-1.0[facility] Comment on above:Performed By: #### TSH, T7, LIPA, EMILY, CMP #### [facility] [address] [place] [address] Dr. Emely AdrianCalcium [Mass/Vol]8.3 mg/dLCritically low8.5-10.1The [facility] HospitalComment on above:Performed By: #### TSH, T7, LIPA, EMILY, CMP #### [facility] [address] [place] [address] Dr. Emely AdrianChloride [Moles/Vol]108 mmol/LCritically cgde79-133Vwl [facility] HospitalComment on above:Performed By: #### TSH, T7, LIPA, EMILY, CMP #### [facility] [address] [place] [address] Dr. Emely AdrianCO2 [Moles/Vol]24.5 mmol/PSidefh92.0-32.0[facility] Comment on above:Performed By: #### TSH, T7, LIPA, EMILY, CMP #### [facility] [address] [place] [address] Dr. Emely AdrianCreatinine [Mass/Vol]0.97 mg/dLNormal0.70-1.30The [facility] HospitalComment on above:Performed By: #### TSH, T7, LIPA, EMILY, CMP #### [facility] [address] [place] [address] Dr. Han ChangEGFR-AF MARSHALLESE>60Normal>=60The [facility] HospitalComment on above:Performed By: #### TSH, T7, LIPA, EMILY, CMP #### [facility] [address] [place] [address] Dr. Emely HullGFR-NON AF MARSHALLESE>60Normal>=60The [facility] HospitalComment on above:Performed By: #### TSH, T7, LIPA, EMILY, CMP #### [facility] [address] [place] [address] Dr. Emely AdrianGlobulin (S) [Mass/Vol]3.8 g/dLNormalThe [facility] HospitalComment on above:Performed By: #### TSH, T7, LIPA, EMILY, CMP #### [facility] [address] [place] [address] Dr. Emely AdrianGlucose [Mass/Vol]97 mg/rKXswzek55-507MvbSt. [facility]'S Hospital Comment on above:Performed By: #### TSH, T7, LIPA, EMILY, CMP #### [facility] [address] [place] [address] Dr. Emely AdrianPotassium [Moles/Vol]4.6 mmol/LNormal3.5-5.1[facility] Comment on above:Performed By: #### TSH, T7, LIPA, EMILY, CMP #### [facility] [address] [place] [address] Dr. Emely AdrianProtein [Mass/Vol]6.8 g/dLNormal6.4-8.2The [facility] Comment on above:Performed By: #### TSH, T7, LIPA, EMILY, CMP #### [facility] [address] [place] [address] Dr. Emely AdrianSodium [Moles/Vol]140 mmol/UKsrrpv858-886EdnSt. Rita'S Hospital Comment on above:Performed By: #### TSH, T7, LIPA, EMILY, CMP #### [facility] [address] [place] [address] Dr. Emely AdrianUrea nitrogen [Mass/Vol]20.0 mg/dLCritically high7.0-18.0The [facility] HospitalComment on above:Performed By: #### TSH, T7, LIPA, EMILY, CMP #### [facility] [address] [place] [address] Dr. Emely AdrianUrea nitrogen/Creatinine [Mass ratio]20.6 mg/mgNoOhioHealth Riverside Methodist HospitalComascension borgess hospital on above:Performed By: #### TSH, T7, EMILY WIGGINS, CMP #### [facility] [address] [place] [address] Dr. Emely JacksonHocorine 13-31-8249UUK9.247 uIU/mLNormal0.358-3.740The [facility] Hospitalment on above:Performed By: #### TSH, T7, EMILY WIGGINS, CMP #### [facility] [address] [place] [address] Dr. Emely AdrianVITAMIN D 25 OHon 72-79-8685TCY D 25-OH23.9 ng/mLNormalThe [facility] on above:Performed By: #### CBC #### [facility] [address] [place] [address] Dr. Emely Espinoza RANGESSEE BELOWTrinity Health System East CampusComment on above: Result Comment: <20 ng/mL Vit D deficient 20 - <30 ng/mL Vit D insufficient 30 - 100 ng/mL Vit D sufficient >100 ng/mL Potential ToxicityPerformed By: #### CBC #### [facility] [address] [place] [address] Dr. Emely AdrianCREATININEon 75-11-7683Ikjtpkvmsq [Mass/Vol]1.21 mg/dLNormal 0.70-1.30The [facility] on above:Performed By: #### TSH, T7, LIPEMILY Hill, CMP #### [facility] [address] [place] [address] Dr. Emely HullGFR-AF MARSHALLESE>60Normal>=60The [facility] on above:Performed By: #### TSH, T7, LIPA EMILY, CMP #### [facility] [address] [place] [address] Dr. Emely HullGFR-NON AF MARSHALLESE=60Normal>=60The [facility] Hospitalment on above:Performed By: #### TSH, T7, LIPA, EMILY, CMP #### [facility] [address] [place] [address] [address] Emely AdrianCT CHEST WO W CONon 82-84-1904KG CHEST WO W CONEXAMINATION: CT CHEST WO [...] Electronically authenticated by: CARLOS RICE Date: 2021-12-30 08:[address] [place] [address] STRESS/REST MULTIon 48-46-3445ML STRESS/REST MULTIPatient: PABLO BECKMAN Exam Date: 11/09/2021 : 1955 Gender:M Ordering : DR GUILLERMO CHANCE . Admission #: [id number] Family : Order #: [id number] CLICK HERE TO VIEW EXAM RADIOLOGY REPORT [...] by: Carlos Rice M.D. on 11/09/2021 at 14:17[facility] CampusCARDIAC PHILIP 3-6on 71-23-0948IG [Catalytic activity/Vol]114 U/LNormal 39-308[facility] Hospitalment on above:Performed By: #### TSH, T7, LIPA, EMILY, CMP #### [facility] [address] [place], [place] [address] Dr. Emely Ledbetter.MB [Mass/Vol]1.75 ng/mLNormal<=3.60[facility] Comment on above:Performed By: #### TSH, T7, LIPA, EMILY, CMP #### [facility] [address] [place], [place] [address] Dr. Emely Conway10.8 pg/mLNormal4.0-76.1The [facility] HospitalComment on above:Result Comment: CUT-OFF POINTS HAVE BEEN ESTABLISHED BASED ON THE FOURTH UNIVERSAL DEFINITIONS OF MYOCARDIAL INFARCTION. THE UPPER REFERENCE LIMIT (URL) OF TROPONIN, DEFINED THE 99TH PERCENTILE OF cTnI DISTRIBUTION IN A REFERENCE POPULATION, HAS BEEN CONFIRMED THE DECISION THRESHOLD FOR GA DIAGNOSIS.Performed By: #### TSH, T7, LIPA, EMILY, CMP #### [facility] [address] [place] [address] Dr. Emely Ledbetter [Catalytic activity/Vol]122 U/OBglsxk27-939LvoSt. Rita'S HospitalComment on above:Performed By: #### TSH, T7, LIPA, EMILY, CMP #### [facility] [address] [place] [address] Dr. Emely Ledbetter.MB [Mass/Vol]2.59 ng/mLNormal<=3.60[facility] Comment on above:Performed By: #### TSH, T7, LIPA, EMILY, CMP #### [facility] [address] [place] [address] Dr. Emely Conway10.5 pg/mLNormal4.0-76.1The [facility] HospitalComascension borgess hospital on above:Result Comment: CUT-OFF POINTS HAVE BEEN ESTABLISHED BASED ON THE FOURTH UNIVERSAL DEFINITIONS OF MYOCARDIAL INFARCTION. THE UPPER REFERENCE LIMIT (URL) OF TROPONIN, DEFINED THE 99TH PERCENTILE OF cTnI DISTRIBUTION IN A REFERENCE POPULATION, HAS BEEN CONFIRMED THE DECISION THRESHOLD FOR GA DIAGNOSIS.Performed By: #### TSH, T7, LIPA, EMILY, CMP #### [facility] [address] [place] [address] Dr. Emely Ledbetter [Catalytic activity/Vol]130 U/WTvasrx25-356Aud [facility] HospitalComment on above:Performed By: #### CBC #### [facility] [address] [place] [address] Dr. Emely Ledbetter.MB [Mass/Vol]2.10 ng/mLNormal<=3.60[facility] Comment on above:Performed By: #### CBC #### [facility] [address] [place] [address] Dr. Emely EchevarriaOP10.2 pg/mLNormal4.0-76.1[facility] on above:Result Comment: CUT-OFF POINTS HAVE BEEN ESTABLISHED BASED ON THE FOURTH UNIVERSAL DEFINITIONS OF MYOCARDIAL INFARCTION. THE UPPER REFERENCE LIMIT (URL) OF TROPONIN, DEFINED THE 99TH PERCENTILE OF cTnI DISTRIBUTION IN A REFERENCE POPULATION, HAS BEEN CONFIRMED THE DECISION THRESHOLD FOR GA DIAGNOSIS.Performed By: #### CBC #### [facility] [address] [place] [address] [address] Emely PALACIOS ADMITon 62-69-1328BI [Catalytic activity/Vol]164 U/L Fgmxgp37-132Fga [facility] HospitalComment on above:Performed By: #### CBC #### [facility] [address] [place] [address] [address] Emely Ledbetter.MB [Mass/Vol]3.38 ng/mLNormal<=3.60[facility] Comment on above:Performed By: #### CBC #### [facility] [address] [place] [address] Dr. Emely AdrianHSTROP9.5 pg/mLNormal4.0-76.1The [facility] HospitalComment on above:Result Comment: CUT-OFF POINTS HAVE BEEN ESTABLISHED BASED ON THE FOURTH UNIVERSAL DEFINITIONS OF MYOCARDIAL INFARCTION. THE UPPER REFERENCE LIMIT (URL) OF TROPONIN, DEFINED THE 99TH PERCENTILE OF cTnI DISTRIBUTION IN A REFERENCE POPULATION, HAS BEEN CONFIRMED THE DECISION THRESHOLD FOR GA DIAGNOSIS.Performed By: #### CBC #### [facility] [address] [place] [address] [address] Emely DawkinsO124 ng/mLCritically jdkd04-44Jtm [facility] HospitalComment on above:Performed By: #### CBC #### [facility] [address] [place] [address] Dr. Emely Frazier AUTO DIFFon 93-54-4267QIRF #0.0 103/ulNormal0.0-0.1The [facility] HospitalComment on above:Performed By: #### CBC #### [facility] [address] [place] [address] [address] Emely AdrianBasophils/100 WBC (Bld)0.1 %Critically low0.2-2.0The [facility] HospitalComment on above:Performed By: #### CBC #### [facility] [address] [place] [address] [address] Han ChangEO #0.3 103/ulNormal0.0-0.7The [facility] HospitalComment on above: Performed By: #### CBC #### [facility] [address] [place] [address] [address] Emely Hullosinophils/100 WBC (Bld)3.2 %Normal0.9-7.0[facility] Comment on above:Performed By: #### CBC #### [facility] [address] [place] [address] Dr. Emely Hullrythrocyte distribution width (RBC) [Ratio]13.6 %Zdezdf81.0-15.[address] [facility] [facility]'S HospitalComment on above:Performed By: #### CBC #### [facility] [address] [place] [address] Dr. Emely AdrianHematocrit (Bld) [Volume fraction]32.2 %Critically low42.0-54.[address] [facility] [facility]'S HospitalComment on above:Performed By: #### CBC #### [facility] [address] [place] [address] Dr. Emely AdrianHemoglobin (Bld) [Mass/Vol]10.5 g/dLCritically low14.0-18.0St. Rita'S HospitalComment on above:Performed By: #### CBC #### [facility] [address] [place] [address] Dr. Emely Casiano #0.05 10e3/ulCritically high0.00-0.03[facility] Comment on above:Performed By: #### CBC #### [facility] [address] [place] [address] Dr. Emely Casiano %0.6 %Critically high0.0-0.5The [facility] HospitalComment on above:Performed By: #### CBC #### [facility] [address] [place] [address] Dr. Emely Petit #1.7 103/ulNormal1.2-3.8The [facility] HospitalComment on above:Performed By: #### CBC #### [facility] [address] [place] [address] Dr. Emely Canashocytes/100 WBC (Bld)19.7 %Critically low20.5-60.0The [facility] HospitalComment on above:Performed By: #### CBC #### [facility] [address] [place] [address] Dr. Emely Davis DIFF REQNONormalThe [facility] HospitalComment on above: Performed By: #### CBC #### [facility] [address] [place] [address] Dr. Emely Constantino (RBC) [Entitic mass]31.7 jcIpadmg56.9-34.0The [facility] HospitalComment on above:Performed By: #### CBC #### [facility] [address] [place] [address] Dr. Emely Constantino (RBC) [Mass/Vol]32.6 g/mEOgcjrf87.9-35.2The [facility] HospitalComment on above:Performed By: #### CBC #### [facility] [address] [place] [address] Dr. Emely Smith (RBC) [Entitic vol]97.3 fLCritically high80.0-94.0The [facility] HospitalComment on above:Performed By: #### CBC #### [facility] [address] [place] [address] Dr. Emely Zamarripa #1.0 103/ulCritically high0.3-0.8The [facility] Comment on above:Performed By: #### CBC #### [facility] [address] [place] [address] Dr. Emely Ellisocytes/100 WBC (Bld)12.4 %Critically high1.7-12.0The [facility] HospitalComment on above:Performed By: #### CBC #### [facility] [address] [place] [address] Dr. Emely Del Real #5.4 103/ulNormal1.4-6.5The [facility] HospitalComment on above:Performed By: #### CBC #### [facility] [address] [place] [address] Dr. Yilan ChangNeutrophils/100 WBC (Bld)64.0 %Tozzub15.0-75.0The [facility] HospitalComment on above:Performed By: #### CBC #### [facility] [address] [place] [address] Dr. Emely Bonelet mean volume (Bld) [Entitic vol]9.2 fLCritically low 9.5-13.5The [facility] HospitalComment on above:Performed By: #### CBC #### [facility] [address] [place] [address] Dr. Emely AdrianPLT417 103/ruFdlbml508-080Vqc [facility] HospitalComment on above: Performed By: #### CBC #### [facility] [address] [place] [address] Dr. Emely AdrianRBC3.31 106/ulCritically low4.70-6.10The [facility] HospitalComment on above:Performed By: #### CBC #### [facility] [address] [place] [address] Dr. Emely AdrianWBC8.4 103/ulNormal4.0-11.0The [facility] HospitalComment on above: Performed By: #### CBC #### [facility] [address] [place] [address] Dr. Emely Martin CHEST WO W CONon [id number] CHEST WO W CONEXAMINATION: CTA CHEST WO [...] Electronically authenticated by: CARLOS RICE Date: 2021-10-27 06:37NoOhioHealth Riverside Methodist HospitalCovid-19 PCR (CVDTBH)on 43-98-6183KINO-CoV-2 (COVID-19) RNA ISIDRO+probe Ql (Unsp spec)Not detectedNormalNOT DETECTEDSt. [facility]'S Hospital Comment on above:Result Comment: When diagnostic [...] for this test is supported by the [place] of Health and Human Service's declaration that [...] #### TSH, T7, LIPA, EMILY, CMP #### [facility] [address] [place] [address] Dr. Emely Guerrero 54-83-8170S-DIMER2.19 mg/L FEUCritically high<=0.59St. Rita'S HospitalComment on above:Performed By: #### TSH, T7, LIPA, EMILY, CMP #### [facility] [address] [place] [address] [address] Emely Lindo COMMENTSSEE [facility] Regional Medical CenterComment on above:Result Comment: Increases in D-Dimer concentration [...] #### TSH, T7, LIPA, EMILY, CMP #### [facility] [address] [place], [place] [address] Dr. Emely Bangura 01-82-9671XEO<0.2Critically low0.9-2.0The [facility] HospitalComment on above:Performed By: #### TSH, T7, LIPA, EMILY, CMP #### [facility] [address] [place] [address] [address] Emely HullCHOCARDISherri M/2D COMPLETEon 36-51-2354OIBUTIHLXD M/2D COMPLETE Patient: PABLO BECKMAN Exam Date: 10/27/2021 : 1955 Gender:M Ordering : DR GUILLERMO CHANCE . Admission #: [id number] Family : Order #: [id number] CLICK HERE TO VIEW EXAM ECHOCARDIOGRAM REPORT [...] by: Magdalena Stark M.D. on 10/27/2021 at 17:01[facility] CampusLACTATE/LACTIC ACIDon 92-05-8542Sxdzezs [Moles/Vol]0.5 mmol/LNormal 0.4-1.9St. Rita'S HospitalComment on above:Performed By: #### TSH, T7, LIPA, EMILY, CMP #### [facility] [address] [place] [address] [address] Emely AdrianLactate [Moles/Vol]0.5 mmol/LNormal0.4-1.9[facility] Comment on above:Performed By: #### CBC #### [facility] [address] [place] [address] [address] Emely AdrianPROF CHEM 8 (BAS METB)on 18-82-2097Zaads gap [Moles/Vol]15.3 mmol/LNormalSt. Rita'S HospitalComment on above:Performed By: #### CBC #### [facility] [address] [address] [address] Emely AdrianCalcium [Mass/Vol]9.1 mg/dLNormal8.5-10.1[facility] Comment on above:Performed By: #### CBC #### [facility] [address] [place] [address] Dr. Emely AdrianChloride [Moles/Vol]105 mmol/KEebjla69-719MeqSt. Rita'S Hospital Comment on above:Performed By: #### CBC #### [facility] [address] [address] [address] Emely AdrianCO2 [Moles/Vol]26.6 mmol/FPbuoaa28.0-32.0[facility] Comment on above:Performed By: #### CBC #### [facility] [address] [place] [address] [address] Emely AdrianCreatinine [Mass/Vol]1.29 mg/dLNormal0.70-1.30The [facility] HospitalComment on above:Performed By: #### CBC #### [facility] [address] [place] [address] [address] Emely HullGFR-AF MARSHALLESE>60Normal>=60The [facility] HospitalComment on above:Performed By: #### CBC #### [facility] [address] [place] [address] [address] Emely HullGFR-NON AF BZECYEUE68 mL/min/1.66d5Bsowbfduuw low>=60The [facility] HospitalComment on above:Performed By: #### CBC #### [facility] [address] [address] [address] Emely AdrianGlucose [Mass/Vol]100 mg/dWJwrpep34-536TicSt. Rita'S Hospital Comment on above:Performed By: #### CBC #### [facility] [address] [address] [address] Emely AdrianPotassium [Moles/Vol]3.9 mmol/LNormal3.5-5.1[facility] Comment on above:Performed By: #### CBC #### [facility] [address] [place] [address] [address] Emely AdrianSodium [Moles/Vol]143 mmol/HKutpvo371-561FxwSt. Rita'S Hospital Comment on above:Performed By: #### CBC #### [facility] [address] [place] [address] [address] Emely AdrianUrea nitrogen [Mass/Vol]28.0 mg/dLCritically high7.0-18.0The [facility] HospitalComment on above:Performed By: #### CBC #### [facility] [address] [place], [place] [address] Dr. Emely AdrianUrea nitrogen/Creatinine [Mass ratio]21.7 mg/mgTrinity Health System East CampusComment on above:Performed By: #### CBC #### [facility] [address] [place], [place] [address] Dr. Emely AdrianXR CHEST 1 Von 48-62-1217WC CHEST 1 VEXAM: XR CHEST 1 V [...] Electronically authenticated by: KARLY SAID Date: 2021-10-27 04:41[facility] CampusCardiovascular Lab Reporton 78-78-5411Kyvfmouzkmpead Lab Report [facility] Patient Name: Rk [facility] MR #: [id number] Physician: Mamta Stephenson, Department of INVENTORY ASSISTANT Medicine Service Date: 04/07/2021 Division of Birthdate: 1955 Cardiology Room #: [facility] Cardiovascular Services [place] [address] Cardiovascular Laboratory Report DATE OF PROCEDURE; 04/07/2021 [...] Medina MD Date Trans: 04/09/2021 11:17 A/ MATTI_JN:[id number] Regional Medical Center Vital Signs Date TimeVital SignValuePerforming BulpocwgbUgyfepmc37-74-8880 12:43-0500Body yfvekxgdvtb84.88 [degF]WALLACE WEI [facility]03-03-2025 12:43-0500Diastolic blood vepnqeyg07 mm[Hg]WALLACE WEI [facility]03-03-2025 12:43-0500Heart rate66 /minJENNIFER SANJUANA [facility]03-03-2025 12:43-0500Respiratory rate16 /minJENNIFER SANJUANA [facility]03-03-2025 12:43-0500Systolic blood dblxgufm780 mm[Hg]WALLACE SANJUANA [facility] Encounters Encounter DateEncounter [facility] ProviderFacilityStart: 01-22-2025 End: 02-62-7974ytmbozypdqLVONKUGJMGFSelect [facility] [place] Start: 07-18-2024 End: 45-57-3869cvhrglrpxkACJKLMSSelect Medical [facility], Beachwoodtart: 06-20-2024 End: 45-53-7675Sttxsilhc encounterG Isidoro Williamson MD Work Phone: Radiation OncologyComment on above:Future Appointment Start: 73-54-6134bqdnxrwjrhRIFOWVJAdams County Hospital Start: 06-19-2024 End: 77-76-5399kshfpjpxmeEYQBXZYCleveland Clinic [facility] Start: 06-18-2024 End: 76-18-0904azqceufdufA Phillip Engeler MD Work Phone: Radiation OncologyComment on above:Personal history of prostate cancer (Primary Dx)Start: 06-18-2024 End: 63-48-0850Angdqbuyfsrs consultation with patientG Isidoro Williamson MD Work Phone: Radiation OncologyStart: 06-10-2024 End: 70-34-4152fwradsyoyeIE-Madelaine WEIFacility:FTMCStart: 06-10-2024 End: 45-08-9269Ana Drop offJELIZZIEIFER E SANJUANA [facility] Start: 06-10-2024 End: 21-80-1206aqxkxbuiysGK-C WALLACE E ASHLEYJEISONFacility:EU BellevueStart: 06-10-2024 End: 57-47-6341Xonsppz encounter procedureJENNIFER E SANJUANA [facility] Renata start: 06-03-2024 End: 77-65-3373jlxnwpnaslCTMXZNI [facility] Start: 73-94-8395Zsfmbyvja encounterG Isidoro Williamson MD Work Phone: Radiation OncologyComment on above:Results; AppointmentStart: 08-23-5405Uekuimihm encounterG Isidoro Williamson MD Work Phone: Radiation OncologyComment on above:Future Appointment Start: 06-23-2022 End: 08-56-0412bzawevhajiR Phillip Engeler MD Work Phone: Radiation OncologyComment on above:Malignant neoplasm of prostate (HCC) (Primary Dx)Start: 06-23-2022 End: 75-61-2154Nicognxnzkdy consultation with patientG Isidoro Williamson MD Work Phone: SANDUSKYStart: 27-91-7642Icwifxffi encounterG Isidoro Williamson MD Work Phone: Radiation OncologyComment on above:Patient Question Start: 06-02-2022 End: 23-23-8847sdcuwsobtlSFDaquan CLARKacility:N0Wqxry: 03-29-2022 End: 73-56-4166Mppyctj encounter procedureMichael R NILL General Surgery Nill/Said Renata Start: 37-31-9246Rdouyzmrh for preprocedural laboratory examinationDR PATRICIO OBRIEN .[facility]art: 03-18-2022 End: 73-05-7618advakoztznEE PATRICIO OBRIEN .Facility:O8Yhkbj: 03-14-2022 End: 86-53-0372oasuihbnbeZE PATRICIO MARTINEZL .Facility:Y0Wukbn: 03-14-2022 End: 04-32-8460Mlahvkhjr for preprocedural laboratory examinationDR PATRICIO OBRIEN .Facility:P9Zbllf: 03-09-2022 End: 12-63-9065zywybycfpdTZ ISIDRO Alcantara ELIELECKFacility:B4Yyclw: 02-25-2022 End: 84-06-9091ypuqgftfzgSG GUILLERMO HOY .Facility:E5Njbms: 12-30-2021 End: 49-67-1458cnnzpbaberWH GUILLERMO HOY .Facility:R7Skkgp: 11-09-2021 End: 72-13-1267cuddqkfdasSN GUILLERMO HOY .Facility:J6Wmbvx: 10-27-2021 End: 59-38-3245umygdhzcxdED GUILLERMO HOY .Facility:E0Wbjao: 04-07-2021 End: 34-77-5519stqabjfdozRUFYIPY TUCKERFacility:[facility] Procedures DateProcedureProcedure DetailPerforming ClinicianStart: 30-89-7573ZIX screening Ccf ProviderStart: 06-02-2022 End: 34-97-5212RHP screeningCcf ProviderComment on above:Performed By: #### TSH, T7, LIPA, EMILY, CMP #### [facility] [address] [place] [address] Dr. Emely AdrianStart: 69-18-6966UuossxvvmkiOdsehvh NILL Start: 08-07-7949PuraxfajjkaidxiczoujybofklKmjoahv NILL Start: 76-85-8806UftttccmrxpRpmfrih NILL Start: 34-88-6828ZgvutfzncfaQjuctof NILL Amputation of finger, except thumbMichael NILL Arthroscopy of shoulderMichael NILL Herniated structure (morphologic abnormality)WALLACE WEI Implantation of radioactive seed into prostateMichael NILL Open reduction of fracture with internal fixation Patricio NILL Comment on above:right legUmbilical herniorrhaphy using surgical suturesMichael NILL Plan of Treatment DateCare ActivityDetailAuthorStart: 78-81-4451GIJ Vaccine (1 - 1-dose 75+ series)RSV Vaccine (1 - 1-dose 75+ series)[facility] 06-12[facility]2029 Prostate specific antigen measurementProstate Cancer Screening Discussion [facility]: 18-39-1790Aansfpis specific antigen measurementProstate Cancer Screening DiscussionOhioHealth [facility]heastern Medical Centertart: 26-49-8471ZZJYKGUC CANCER SCREENING DISCUSSIONPROSTATE CANCER SCREENING DISCUSSIONOhioHealth Southeastern Medical Centertart: 18-39-7839Bwjdxboe specific antigen measurementProstate Cancer Screening DiscussionOhioHealth [facility]heastern Medical Centertart: 06-20-2025 End: 83-24-6775Nopryrpx specific Ag [Mass/volume] in Serum or PlasmaPROSTATE- SPECIFIC ANTIGEN DIAGNOSTIC Lab Routine Personal history of prostate cancer Expected: 06/20/2025 (Approximate), Expires: 09/19/2025[facility] Work Phone: Comment on above:Expected: 06/20/2025 (Approximate), Expires: 09/19/2025Start: 06-18-2025 End: 55-01-8967Gyaygl-up pdvceffjs07/11/2026 4:30 PM EDT [facility] Radiation Oncology [address] [place] [address] [place] [address] Quinton Williamson MD [address] [place] [address] [place] [address] 1 [facility] OncologyComment on above:[facility]24 End: 36-32-4083Hdpngfpr specific Ag [Mass/volume] in Serum or Plasma PSA/PROSTSPECAG DIAG Lab Routine Malignant neoplasm of prostate (HCC) Expected: 06/12/2024, Expires: [facility] Work Phone: Comment on above:Expected: 06/12/2024, Expires: 09/11/2024Start: 14-34-7103Spdmkbp Directive DiscussionAdvance Directive DiscussionOhioHealth [facility]heastern Medical Centertart: 84-62-3059Pmsdm-19 Vaccine () Covid-19 Vaccine ()[facility]: 86-02-0895Cfdquiudz vaccinationInfluenza Vaccine (#1)[facility]: 05-23-2023 End: 44-14-2873Yjiaqfnw specific Ag [Mass/volume] in Serum or Plasma PSA/PROSTSPECAG DIAG Lab Routine Malignant neoplasm of prostate (HCC) Expected: 05/23/2023, Expires: 08/22/2023[facility] Work Phone: Comment on above:Expected: 05/23/2023, Expires: 08/22/2023Start: 37-61-6355Lhiyziy Directive DiscussionAdvance Directive DiscussionOhioHealth [facility] Medical Centertart: 56-63-2036Lbaavewzca AssessmentDepression AssessmentOhioHealth [facility]heastern Medical Centertart: 38-80-2423Lfrsdsepgddi Vaccine: 50+ (2 of 2 - PPSV23)Pneumococcal Vaccine: 50+ (2 of 2 - PPSV23)[facility]: 04-93-6018Jorxvdicpgfn Vaccine: 65+ (2 of 2 - PPSV23 or PCV20)Pneumococcal Vaccine: 65+ (2 of 2 - PPSV23 or PCV20)[facility]: 73-82-2250Njdlf-19 Vaccine ( season)Covid-19 Vaccine ()[facility]: 68-59-1663Hfroxzggx vaccinationInfluenza Vaccine (#1)[facility]: 65-13-8951YKMRKBB DIRECTIVE DISCUSSIONADVANCE DIRECTIVE DISCUSSION [facility]: 63-23-3673EYCRQBCRTR ASSESSMENTDEPRESSION ASSESSMENT [facility]: 45-18-2150Sotgnjcix vaccinationINFLUENZA (#1)[facility]: 94-21-4041YGGQIEZQUQFV: 65+ (1 - PCV)PNEUMOCOCCAL: 65+ (1 - PCV) [facility]: 22-50-6835OINTA-19 VACCINE (3 - Booster for Pfizer series)COVID-19 VACCINE (3 - Booster for Pfizer series)[facility]: 48-96-4808OWT Vaccine (1 - 1-dose 60+ series)RSV Vaccine (1 - 1-dose 60+ series) [facility]: 40-08-1061OIPPZOEZ VACCINE (1 of 2)SHINGRIX VACCINE (1 of 2)[facility]: 95-09-9294UIXKPZMLT (FIT-DNA)COLOGUARD (FIT-DNA) [facility]art: 78-92-9375HjagzevvmxcGIBXPFJGVTQTixjsstqa ClinicStart: 90-61-4861YATPUTSOVA CANCER SCREENINGCOLORECTAL CANCER SCREENINGAdams County Hospital Start: 84-14-5362MP COLONOGRAPHYCT COLONOGRAPHYOhioHealth Southeastern Medical Centertart: 2001 DIABETES SCREENDIABETES SCREENOhioHealth Southeastern Medical Centertart: 64-40-7170Aqbbalgm ScreeningDiabetes ScreeningOhioHealth Southeastern Medical Centertart: 06-15-2003JNKDG OCCULT BLOOD FECAL OCCULT BLOODOhioHealth Southeastern Medical Centertart: 70-07-3528Brszdzvqh for malignant neoplasm of colonOhioHealth Southeastern Medical Centertart: 60-27-0138BFPNOAESGKICHWFFRBWYUGGRXL [facility]art: 87-68-0020Pcbzl panelLipid ScreeningAdams County Hospital Start: 81-53-9311UGGCN SCREENLIPID SCREENOhioHealth Southeastern Medical Centertart: 47-33-9537Wytpt microalbumin profileOhioHealth Southeastern Medical Centertart: 92-16-3464Abqtlht ScreeningAnxiety ScreeningOhioHealth Southeastern Medical Centertart: 84-37-8877Tifmvuhtyk ScreeningDepression ScreeningOhioHealth Southeastern Medical Centertart: 25-29-7350XVQJGJADO C SCREENINGHEPATITIS C SCREENINGOhioHealth Southeastern Medical Centertart: 49-40-2909Wiswnopja C screeningHepatitis C ScreeningOhioHealth Southeastern Medical Centertart: 95-25-2169DBT SCREENINGHIV SCREENINGOhioHealth Sout[facility] Medical Centertart: 66-80-3272PDIFCLBJC AORTIC ANEURYSM SCREENINGABDOMINAL AORTIC ANEURYSM SCREENINGOhioHealth Southeastern Medical Centertart: 56-83-1636Ufywvyxwk aortic aneurysm screeningAbdominal Aortic Aneurysm ScreeningSelect [facility] Immunizations Immunization DateImmunizationNotesCare ProviderFacilityNEGATED: Highlighted row has not occurred!37-42-0555yowgbjkut virus vaccine, unspecified formulation Patricio OBRIEN [facility] Payers DatePayer CategoryPayerPolicy [id number] 2023Medicare DEVOTED MEDICARE DEVOTED [place]ALTH [place] H[place] [id number] 2023-Present [phone] [address] [place] [address] [id number] Health Insurance [id number] [facility] [id number] 2006-Present [phone] [address] [id number] [id number] 2.840.1.856889.3.579.2.64239-43-2914 [id number] 2.840.1.960946.3.57[id number] 2.16.840.1.863269.3.57[id number] 2.840.1.584436.3.57[id number] 2.16.840.1.586072.3.57[id number] 2.16.840.1.333902.3.57[id number] 2.16.840.1.956282.3.57[id number] 2.16.840.1.956375.3.57[id number] 2.16.840.1.454477.3.57[id number] 2.16.840.1.480798.3.57[id number] 2..840.1.869867.3.579.2.727 Social History DateTypeDetailFacilityStart: 06-24-2020 End: 84-79-2164Mrcctyj smoking statusEx-smoker (finding)[facility] Tobacco smoking statusNeverGeneral Surgery BellevueStart: 06-24-2020 End: 92-76-9919Nra Assigned At BirthMalUniversity Hospitals [facility] Centertart: 06-11-1978 End: 16-01-6333Wdcpmeb of tobacco useCurrent smokerOhioHealth Southeastern Medical Centertart: [birth year]-11-1979 End: 39-64-8635Idutqop of tobacco useCigarette SmokerOhioHealth Southeastern Medical Centertart: 06-24-2020 End: 69-71-0940Tvrpfrdlqy smoked current (pack per day) - Reported1.5[facility] ClinicStart: 35-80-3504Yeexoim use and exposureSmokeless tobacco non-user [facility]art: 40-78-8043Nemlmaq intakeNot AskedOhioHealth Southeastern Medical Centertart: 59-96-0142Deg Assigned At BirthNot on fileAdams County Hospital Functional Status RfteXjnxsubtixKcuglgGghwrvli34-04-3501Xomizkvoxk StatusN/AExec[facility] Cxkrzvtg14-66-8574Cfy you deaf, or do you have serious difficulty hearingYes 06/10/2014 9:10 AM Josefina Davidson RN Yes [facility] County HospitalErxpha83-05-7654Ssg you blind, or do you have serious difficulty seeing, even when wearing glassesNo 06/10/2014 9:10 AM Josefina Davidson RN No [facility] HospitalAwdeoq02-44-5831Gh you have serious difficulty walking or climbing stairsYes 06/10/2014 9:10 AM Josefina Davidson RN YesAdams County Hospital03-03-2015 Do you have difficulty dressing or bathingNo 06/10/2014 9:10 AM Josefina Davidson RN [facility] SystemTohmii48-67-5056Wcbqoac of a physical, mental, or emotional condition, do you have difficulty doing errands alone such as visiting a physician's office or shoppingNo 06/10/2014 9:10 AM Josefina Davidson RN No [facility] Mental Status BxvgSgnfgrpfqyNobpszNwrazwes55-46-2174Lrenstt of a physical, mental, or emotional condition, do you have serious difficulty concentrating, remembering, or making decisionsNo 06/10/2014 9:10 AM Josefina Davidson RN [facility] Clinical Notes 03-18-2022 to 01-22-2025 Note Date & WhefGdgyWxpvxrai55-98-5577 NoteSubjective Patient ID: Pablo Beckman is a [...] in about 1 year (around 01/22/2026) for Recheck.[facility]04-10-2025 NoteCardiovascular Medicine [facility] SUBJECTIVE Chief Complaint Patient presents with [...] he cuts himself at work. 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 He denies any changes since last seen [...] History of retinal detachment Iron deficiency anemia senior care current use of anticoagulant Macular puckering Melena [...] tablet by mouth onc (more content not included)...[facility]04-10-2025 NotePatient is here for a follow up appointment S/p PTCA stent. Patient states he get short of breath with exertion he denies chest pain. Patient would like to talk about possible stopping one of his blood thinners due to bruising. Review of Systems Cardiovascular: Positive for dyspnea on exertion. Hematologic/Lymphatic: Bruises/bleeds easily.[facility] 06-24-2024 Telephone encounter Note* Telephone Encounter - Kitty Bruner - 06/24/2024 12:58 PM EDT Pablo is scheduled for his 1 year follow up on 06/18/24 at 4:30. His lab order has been faxed to [facility]. Kitty B PSS [facility]03-17-2025 Miscellaneous Notes* Telephone Encounter - Kitty Bruner - 06/24/2024 12:58 PM EDT Pablo is scheduled for his 1 year follow up on 06/18/24 at 4:30. His lab order has been faxed to [facility]. Kitty B PSS * Telephone Encounter - Josefina Ring RN - 06/20/2024 11:16 AM EDT GAYLE- please sign order. Josefina Ring RN * Telephone Encounter - Bel Harrison - 06/20/2024 11:06 AM EDT Appointment scheduled in 1 year, will need to fax PSA order to [facility] when available. * Telephone Encounter - Josefina Ring RN - 06/20/2024 9:58 AM EDT Images from the original note were not included. Message Received: 2 days ago Quinton Williamson MD P [facility] Rad Nurse [place]; Josefina Mulligan One year with psa documented in this encounterAdams County Hospital03-13-2025 Telephone encounter Note * Telephone Encounter - Josefina Ring RN - 06/20/2024 11:16 AM EDT GAYLE- please sign order. Josefina Ring RN [facility]03-13-2025 Telephone encounter Note* Telephone Encounter - Bel Harrison - 06/20/2024 11:06 AM EDT Appointment scheduled in 1 year, will need to fax PSA order to [facility] when available. [facility]03-13-2025 Telephone encounter Note* Telephone Encounter - Josefina Ring, [place] - 06/20/2024 9:58 AM EDT Images from the original note were not included. Message Received: 2 days ago Quinton Williamson MD P [facility] Nurse [place]; Josefina Mulligan One year with psa [facility]03-11-2025 NoteHNO ID: [id number] Author: Quinton WILLIAMSON MD Service: ? Author [...] year. Total Time Spent: 10minutes Quinton Williamson [facility]03-11-2025 History of Present illness Narrative* Quinton [...] 10minutes Quinton Williamson MD documented in this encounterAdams County Hospital03-03-2025 Hospital Discharge instructions Patient Education 06/10/2024 [...] Follow these instructions at home: Medicines Take zutt-qhd-jlfjyds and prescription medicines only as told by [...] or the blood stops without treatment. Take vojr-fin-pqwdjiw and prescription medicines only as told by your health care provider. Drink enough fluid to keep your urine pale yellow. This information is not intended to replace advice given to you by your health care provider. Make sure you discuss any questions you have with your health care provider. Document Revised: 11/25/2020 Document Reviewed: 11/25/2020 [employer] Patient Education 2023 [employer]. Follow Up Care 06/07/2024 09:57:37 With:[facility] [place] Address: [facility] [place] [address] Business (1) When: Unknown Comments:our infectious diseases physician will be contacting you for follow-up [facility] 03-03-2025 Evaluation + Plan note Diagnostic Tests Pending * Urine Cytology ([facility]) 06/10/24 [facility] 03-03-2025 NotePatient Education Urology Hematuria, Adult [...] these instructions at home: Medicines ??? Take nkxc-hym-onidhrf and prescription medicines only as told by [...] the blood stops without treatment. ??? Take hift-zcp-gniodbp and prescription medicines only as told by your health care provider. ??? Drink enough fluid to keep your urine pale yellow. This information is not intended to replace advice given to you by your health care provider. Make sure you discuss any questions you have with your health care provider. Document Revised: 11/25/2020 Document Reviewed: 11/25/2020 [employer]ide Patient Education ? 2023 [employer].[facility] 06-03-2024 NoteCardiology Clinic Note Chief Complaint: No chief complaint on file. HPI: Pablo Beckman is a 68 y.o. male who has a past medical history of Aneurysm, Atrial fibrillation ([facility]), Coronary artery disease, Diastolic dysfunction, Hyperlipidemia, Hypertension, Left ventricular systolic dysfunction, and NSVT (nonsustained ventricular tachycardia) ([facility]). that is referred to Cardiology clinic for [...] past medical history of Aneurysm, Atrial fibrillation ([facility]), Coronary artery disease, Diastolic dysfunction, Hyperlipidemia, Hypertension, Left ventricular systolic dysfunction, and NSVT (nonsustained ventricular tachycardia) ([facility]). Surgical History He has a past surgical [...] Value Ventricular Rate 62 Atrial Rate 62 RI Interval 110 QRS DURATION 90 QT Interval 446 QTC CALCULATION(BAZETT) 452 P [place] 4 R-[place] 4 T Wave [place] -11 Impression Sinus rhythm Since previous tracing [...] portion of t (more content not included)... [facility]03-13-2024 Miscellaneous Notes* Telephone Encounter - Latisha RojasDEVIKA [...] advise. Latisha Rojas RN documented in this encounterAdams County Hospital02-13-2024 Miscellaneous Notes* Telephone Encounter - Josefina Ring RN - 05/23/2023 9:43 AM EST PT called in to schedule follow up for this year. He will also need PSA. Please sign pended order and we will fax to [facility]. Josefina Ring RN documented in this encounterAdams County Hospital03-16-2023 History of Present illness Narrative* G [...] minutes Quinton Williamson MD documented in this encounterAdams County Hospital03-16-2023 Miscellaneous Notes* Telephone Encounter - Kwaku Rasmussen - 06/23/2022 10:04 AM EDT Appointment has been changed in Epic. Kwaku Rasmussen * Telephone Encounter - Josefina Ring RN - 06/23/2022 9:[address] Williamson, mark to switch to phone visit. Patient was notified. PSS- please change in [facility]. Josefina Ring RN * Telephone Encounter - Latisha Rojas LPN - 06/22/2022 12:36 PM EDT Pablo called wondering if his follow up appointment can be switched to a phone visit tomorrow. Please advise. Latisha Rojas LPN documented in this encounterAdams County Hospital12-09-2022 NoteOPERATIVE NOTE OPERATION DATE: 03/18/2022 PREOPERATIVE [...] in good condition. CC: Guillermo Chance M.D.[facility] + Plan note No data available for this section [facility] Evaluation note* Diagnosis Malignant neoplasm of prostate (HCC)- Primary Malignant neoplasm of prostate documented in this encounter [facility] note* Diagnosis Malignant neoplasm of prostate (HCC)- Primary Malignant neoplasm of prostate documented in this encounter [facility] note* Diagnosis Malignant neoplasm of prostate (HCC)- Primary Malignant neoplasm of prostate documented in this encounter [facility] note* Diagnosis Personal history of prostate cancer- Primary Personal history of malignant neoplasm of prostate documented in this encounter [facility] note* Diagnosis Personal history of prostate cancer- Primary Personal history of malignant neoplasm of prostate documented in this encounter [facility] Discharge instructions No data available for this section [facility] Progress note No data available for this section [facility] Summary Purpose Family History No Family History [...] and content) DATE CREATED AUTHOR 04/15/2021 [facility] DATE CREATED AUTHOR AUTHOR'S ORGANIZ ATION 08/08/2022 [facility] DATE CREATED AUTHOR AUTHOR'S ORGANIZ ATION 06/16/2024 [facility] DATE CREATED AUTHOR AUTHOR'S ORGANIZ ATION 06/26/2024 [facility] DATE CREATED AUTHOR AUTHOR'S ORGANIZ ATION 01/24/2025 [facility] Patient Care team informatio n (unrecognized section and content) Team MemberRelationshipSpecialtyStart DateEnd Date Guillermo Chance MD PCP - Ukpviof76/17/09Team MemberRelationshipSpecialtyStart DateEnd Date Guillermo Chance MD PCP - Ilfspyp15/17/09Team MemberRelationshipSpecialtyStart DateEnd Date Guillermo Chance MD [facility] - Jegditd61/17/09Team MemberRelationshipSpecialtyStart DateEnd Date Guillermo Chance MD [facility] - Agfzsvs15/17/09 Source Comments (unrecognize d section and content) In the event this informatio n is protected by the Federal Confidentiality of Alcohol and Drug Abuse Patient Records regulations: The Federal rules restrict any use of the information to criminally investigate or prosecute any alcohol or drug abuse patient.[facility] HospitalIn the event this information is protected by the Federal Confidentiality of Alcohol and Drug Abuse Patient Records regulations: The Federal rules restrict any use of the information to criminally investigate or prosecute any alcohol or drug abuse patient.[facility] HospitalIn the event this information is protected by the Federal Confidentiality of Alcohol and Drug Abuse Patient Records regulations: The Federal rules restrict any use of the information to criminally investigate or prosecute any alcohol or drug abuse patient.[facility] HospitalIn the event this information is protected by the Federal Confidentiality of Alcohol and Drug Abuse Patient Records regulations: The Federal rules restrict any use of the information to criminally investigate or prosecute any alcohol or drug abuse patient.[facility] HospitalIn the event this information is protected by the Federal Confidentiality of Alcohol and Drug Abuse Patient Records regulations: The Federal rules restrict any use of the information to criminally investigate or prosecute any alcohol or drug abuse patient.[facility] HospitalIn the event this information is protected by the Federal Confidentiality of Alcohol and Drug Abuse Patient Records regulations: The Federal rules restrict any use of the information to criminally investigate or prosecute any alcohol or drug abuse patient.[facility] Reason for Visit (unrecogniz ed section and content) ReasonCommentsPatient QuestionReasonCommentsEstablished PatientSpecialty Diagnoses / ProceduresReferred By ContactReferred To ContactRadiation Oncology / RADIATION ONCOLOGY Diagnoses Follow-up examination 1 yr follow up, psa at [facility] Procedures OFFICE/OUTPATIENT ESTABLISHED MOD MDM 30-39 MIN EST PATIENT Quinton Williamson MD [address] [place] [address] [place] [address] Quinton Williamson MD [address] [place] [address] [place] [address] Referral IDStatusReasonStart DateExpiration DateVisits RequestedVisits [id number]/16/20236/14/[id number] AppointmentReason CommentsResultsAppointment FOR RECORDS PERTAINING TO PATIENTS [...] BE BASED ON THE PRIMARY CLINICAL RECORDS. [facility]. provides no warranty or guarantee of the accuracy or completeness of information in this document.
== END 2025-04-07 08:39 | disposition home or self-care (01) ==
LOC: US 08:38
PROVIDERS: PCP Family Medicine; Visit Provider Family Medicine
DX: R60.0 Localized edema (principal)
CPT/HCPCS: 93971